=== PATIENT | female | born 1990 | race Caucasian/White ===

== ENCOUNTER 2019-04-23 19:59 | Emergency (ER) | payer OTHER ==
[~2019-04-23] VITALS: Ht 170.2 cm; Wt 86.2 kg
[~2019-04-23 19:59] MED LIST: ANAPROX DS550 MG PO; RITALIN10 MG PO
--- OUTSIDE RECORDS SUMMARY | 2019-04-23 20:02 | XMS ---
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 No recent Security Events currently on file CRITERIA MET - [facility] - Has Care Guidelines - PDMP - [facility] - 2 Visits in 30 Days CARE PROVIDERS SARA CLIFFORD Physician 07/14/2015-Tai Condon PHONE: [phone] SARA CLIFFORD Primary Care Current PHONE: Unknown LATRELL SKINNER Primary Care Tai RON PHONE: Unknown SARA CLIFFORD Primary Care 07/14/2015-Current PH[facility]: [phone] [facility] PHONE: [phone] SARA CLIFFORD Primary Care 07/14/2015-[facility] PHONE: [phone] Guidelines Source: [facility] [place] Guidelines Date: 02/15/2019 Care Coordination: Mental health services provided by [facility].\T\nbsp; Please contact [facility] with mental health concerns.\T\nbsp; Serian/Edward [place]: [phone]\T\ nbsp; [place]: [phone]. E.D. VISIT COUNT (12 MO.) [address] [place] TOTAL 4 NOTE: Visits indicate total known visits. ED/UCC VISIT TRACKING (12 MO.) 04/23/2019 20:00 [facility] [place] TYPE: Emergency COMPLAINT: - SKIN PROBLEM [facility]2019 [facility] DIAGNOSES: - Acute pharyngitis, unspecified - sore throat 02/14/2019 15:53 [facility] [place] TYPE: Emergency DIAGNOSES: - WEAKNES NAUSEA VOMITING - Nausea with vomiting, unspecified - Dizziness and giddiness 12/11/2018 17:21 [facility] [place] TYPE: Emergency DIAGNOSES: - Unspecified abdominal pain - L FLANK PAIN INPATIENT VISIT TRACKING (12 MO.) No inpatient visits to display in this time frame [id number]
[2019-04-23] MEDS ORDERED: ROBAXIN-750750 MG PO (20:13)
[2019-04-23] MEDS ORDERED: DOXYCYCLINE HY100 MG PO (20:15)
[2019-04-23] MEDS ORDERED: SERTRALINE HCL50 MG PO (20:15)
[2019-04-23] MEDS ORDERED: CEPHALEXIN500 MG PO (21:17)
== END 2019-04-23 21:33 | disposition home or self-care (01) ==
LOC: ED 19:59
DX: L03.115 Cellulitis of right lower limb (principal); F17.200 Nicotine dependence, unspecified, uncomplicated; F90.9 Attention-deficit hyperactivity disorder, unspecified type; Z88.0 Allergy status to penicillin; Z88.2 Allergy status to sulfonamides; Z91.048 Other nonmedicinal substance allergy status; Z79.899 Other long term (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
CPT/HCPCS: 99282

== ENCOUNTER 2019-05-28 22:31 | Emergency (ER) | payer OTHER ==
[~2019-05-28] VITALS: Ht 170.2 cm; Wt 86.2 kg
--- OUTSIDE RECORDS SUMMARY | ~2019-05-28 | XMS | Encounter Summary ---
Demographics + + + | Address | [address] | | | [place] [address] | + + + | Home Phone | | + + + | Preferred Language | Unknown | + + + | Marital Status | Single | + + + | Mormon Affiliation | LUT | + + + | Race | White | + + + | Ethnic Group | Not or | + + + Author + + + | Author | [facility] | + + + | Organization | [facility] | + + + | Address | Unknown | + + + | Phone | Unavailable | + + + Support + + + + + | Name | Relationship | Address | Phone | + + + + + | Grisel Marc | EF | [address] | | | | | [place] | | | | | [address] | | + + + + + Care Team Providers + +------+ + | Care Nursing Home Director Name | Role | Phone | + +------+ + | Adilia BobP | PCP | | + +------+ + Reason for Visit +--------+ + | Reason | Comments | +--------+ + | Other | Rt knee | +--------+ + Encounter Details +--------+ + + + + | Date | Type | Department | Care Team | Description | +--------+ + + + + | 10/26/ | Telephone | Orthopaedics at | Alton Hernandez MD | Other (Rt knee) | | 2012 | | [facility] [address] | | | | | | [place] | | | | | | Mailcode: PV430 | | | | | | [place] | | | | | | [place] | | | | | | [address] | | | | | | [phone] | | | +--------+ + + + [...] + | Osteomyelitis of knee region (HCC) - Primary Unspecified osteomyelitis, lower leg | + + | Pathologic fracture of tibia or fibula Pathologic fracture of tibia and fibula | + + documented in this encounter"
--- OUTSIDE RECORDS SUMMARY | ~2019-05-28 | XMS | Encounter Summary ---
Demographics + + + | Address | [address] | | | [place] [address] | + + + | Home Phone | | + + + | Preferred Language | Unknown | + + + | Marital Status | Single | + + + | Alevism Affiliation | LUT | + + + | Race | White | + + + | Ethnic Group | Not or | + + + Author + + + | Author | [facility] | + + + | Organization | [facility] | + + + | Address | Unknown | + + + | Phone | Unavailable | + + + Support + + + + + | Name | Relationship | Address | Phone | + + + + + | Grisel Marc | ECON | [address] | | | | | [place] | | | | | [address] | | + + + + + Care Team Providers + +------+ + | Care Steam Tender Name | Role | Phone | + +------+ + | Hina Peterson | PCP | | + +------+ + Encounter Details +--------+ + + + + | Date | Type | Department | Care Team | Description | +--------+ + + + + | 12/05/ | Hospital | [facility] | | | | 2015 | Encounter | Sports Medicine & | | | | | | Orthopaedic Surgery | | | | | | [address] | | | | | | [place] | | | | | | [address] | | | | | | [phone] | | | +--------+ + + + [...] at Time of Discharge + + + +---------+ + + | Medication | Sig | Dispensed | Refills | Start | End Date | | | | | | Date | | + + + +---------+ + + | albuterol 90 | Inhale 1-2 Puffs | | 0 | | | | mcg/actuation | every four hours as | | | | | | Inhalation HFA | needed. | | | | | | Aerosol Inhaler | | | | | | + + + +---------+ + + | cyclobenzaprine 10 | Take by mouth. | | 0 | 10/02/19 | | | mg oral tablet | | | | 16 | | + + + +---------+ + + | | Inject 150 mg into | | 0 | | | | medroxyPROGESTERone | the muscle (IM) | | | | | | 150 mg/mL | once. | | | | | | intramuscular | | | | | | | suspension | | | | | | + + + +---------+ + + | methylphenidate 10 | | | 0 | 02/18/20 | | | mg oral tablet | | | | 16 | | + + + +---------+ + + documented as of this encounter Plan of Treatment Not on filedocumented as of this encounter Visit Diagnoses Not on filedocumented in this encounter"
--- OUTSIDE RECORDS SUMMARY | ~2019-05-28 | XMS | Encounter Summary ---
Demographics + + + | Address | [address] | | | [place] [address] | + + + | Home Phone [...] + + + | Author | [facility] | + + + | Organization | [facility] | + + + | Address | Unknown | + + + | Phone | Unavailable | + + + Support + + + + + | Name | Relationship | Address | Phone | + + + + + | Grisel Marc | FE | [address] | | | | | [place] | | | | | [address] | | + + + + + Care Team Providers + +------+ + | Care Brick Grader Name | Role | Phone | + +------+ + | No Pcp Per Patient | PCP | Unavailable | + +------+ + Encounter Details +--------+------+ + + + | Date | Type | Department | Care Team | Description | +--------+------+ + + + | 08/06/ | Lab | Laboratory, | | Osteomyelitis of | | 2011 | | Specimen Collection | | knee region (HCC) | | | | at [facility] 3rd Floor | | | | | | [address] | | | | | | [place], | | | | | | [place] [address] | | | | | | [phone] | | | +--------+------+ + + + Social History + +-------+ [...] | + +--------+ + + + | CBC AND AUTO DIFF | Routin | 08/06/2012 | Osteomyelitis of | Results for this | | | e | 3:27 PM | knee region (HCC) | procedure are in the | | | | PST | | results section. | + +--------+ + + + | CBC, WITH | Routin | 08/06/2012 | Osteomyelitis of | Results for this | | DIFFERENTIAL | e | 3:27 PM | knee region (HCC) | procedure are in the | | | | PST | | results section. | + +--------+ + + + | COMPLETE METABOLIC | Routin | 08/06/2012 | Osteomyelitis of | Results for this | | SET | e | 3:27 PM | knee region (HCC) | procedure are in the | | (NA,K,CL,CO2,BUN,CRE | | PST | | results section. | | AT,GLUC,CA,AST,ALT,B | | | | | | JENNIFER TOTAL,ALK | | | | | | PHOS,ALB,PROT TOTAL) | | | | | + +--------+ + + + | C-REACTIVE PROTEIN | Routin | 08/06/2012 | Osteomyelitis of | Results for this | | | e | 3:27 PM | knee region (HCC) | procedure are in the | | | | PST | | results section. | + +--------+ + + + | SEDIMENTATION RATE | Routin | 08/06/2012 | Osteomyelitis of | Results for this | | | e | 3:27 PM | knee region (HCC) | procedure are in the | | | | PST | | results section. | + +--------+ + + + documented in this encounter Results CBC AND AUTO DIFF (08/06/2012 3:27 PM PST) + + + + + + | Component | Value | Ref Range | Performed | Pathologist | | | | | At | Signature | + + + + + + | WHITE CELL | 9.4 | 4.4 - 11.0 K/cu | [facility] | | | COUNT | | mm | LABORATORY | | | | | | SERVICES, | | | | | | CORE | | + + + + + + | RED CELL | 4.53 | 4.00 - 5.20 | [facility] | | | COUNT | | M/cu mm | LABORATORY | | | | | | SERVICES, | | | | | | CORE | | + + + + + + | HEMOGLOBIN | 13.2 | 12.0 - 16.0 | [facility] | | | | | g/dL | LABORATORY | | | | | | SERVICES, | | | | | | CORE | | + + + + + + | HEMATOCRIT | 40.1 | 36.0 - 46.0 % | [facility] | | | | | | LABORATORY | | | | | | SERVICES, | | | | | | CORE | | + + + + + + | MCV | 88.6 | 80.0 - 96.0 fL | [facility] | | | | | | LABORATORY | | | | | | SERVICES, | | | | | | CORE | | + + + + + + | MCHC | 32.9 (L) | 33.4 - 35.5 | [facility] | | | | | g/dL | LABORATORY | | | | | | SERVICES, | | | | | | CORE | | + + + + + + | RDW | 14.0 | 11.5 - 15.0 % | [facility] | | | | | | LABORATORY | | | | | | SERVICES, | | | | | | CORE | | + + + + + + | PLATELET | 264 | 150 - 400 K/cu | [facility] | | | COUNT | | mm | LABORATORY | | | | | | SERVICES, | | | | | | CORE | | + + + + + + | NEUTROPHIL | 46 (L) | 50 - 70 % | [facility] | | | % | | | LABORATORY | | | | | | SERVICES, | | | | | | CORE | | + + + + + + | LYMPHOCYTE | 40 | 18 - 42 % | [facility] | | | % | | | LABORATORY | | | | | | SERVICES, | | | | | | CORE | | + + + + + + | MONOCYTE % | 7 | 2 - 8 % | [facility] | | | | | | LABORATORY | | | | | | SERVICES, | | | | | | CORE | | + + + + + + | EOS % | 7 (H) | 1 - 3 % | [facility] | | | | | | LABORATORY | | | | | | SERVICES, | | | | | | CORE | | + + + + + + | BASO % | 1 | 0 - 2 % | [facility] | | | | | | LABORATORY | | | | | | SERVICES, | | | | | | CORE | | + + + + + + | NEUTROPHIL | 4.3 | 1.8 - 7.7 K/cu | [facility] | | | # | | mm | LABORATORY | | | | | | SERVICES, | | | | | | CORE | | + + + + + + | LYMPHOCYTE | 3.7 | 1.0 - 4.8 K/cu | [facility] | | | # | | mm | LABORATORY | | | | | | SERVICES, | | | | | | CORE | | + + + + + + | MONOCYTE # | 0.6 | 0.0 - 0.8 K/cu | [facility] | | | | | mm | LABORATORY | | | | | | SERVICES, | | | | | | CORE | | + + + + + + | EOS # | 0.6 (H) | 0.0 - 0.5 K/cu | [facility] | | | | | mm | LABORATORY | | | | | | SERVICES, | | | | | | CORE | | + + + + + + | BASO # | 0.1 | 0.0 - 0.2 K/cu | [facility] | | | | | mm | LABORATORY | | | | | | SERVICES, | | | | | | CORE | | + + + + + + + + | Specimen | + + | Blood - Blood | + + + + + + + | Performing | Address | City/State/Zipcode | Phone Number | | Organization | | | | + + + + + | [facility] | [address] | [place] [address] | | | SERVICES, CORE | [address] | | | + + + + + C-REACT PRTN (FOR INFLAMMATION) (08/06/2012 [...] - | | | | | | [place] | | + +-------+ + + + + + | Specimen | + + | Blood - Blood | + + + + + + + | Performing | Address | City/State/Zipcode | Phone Number | | Organization | | | | + + + + + | [facility] | [address] | [place] [address] | | | [facility] | | | | + + + [...] | + + + + + | [facility] | [address] | [place] [address] | | | SERVICES, [place] | [address] | | | + + + + [...] | | | LABORATORY | | | [place] | | | SERVICES, | | | [...] | + + + + + | [facility] | [address] | [place] [address] | | | SERVICES, CORE | [address] | | | + + + + + documented in this encounter Visit Diagnoses + + | Diagnosis | + + | Osteomyelitis of knee region (HCC) Unspecified osteomyelitis, lower leg | + + documented in this encounter"
--- OUTSIDE RECORDS SUMMARY | ~2019-05-28 | XMS | Encounter Summary ---
Demographics + + + | Address | [address] | | | [place] [address] | + + + | Home Phone [...] Author + + + | Author | [facility] | + + + | Organization | [facility] | + + + | Address | Unknown | + + + | Phone | Unavailable | + + + Support + + + + + | Name | Relationship | Address | Phone | + + + + + | Grisel Marc | FE | [address] | | | | | [place] | | | | | [address] | | + + + + + Care Team Providers + +------+ + | Care Reading Intervention Teacher Name | Role | Phone | + +------+ + | Adilia Bob [employer] CONTACT PRINTER | PCP | | + +------+ + Reason for Visit AUTH/CERT +--------+--------+ + + + + | Status | Reason | Specialty | Diagnoses / | Referred By | Referred To | | | | | Procedures | Contact | Contact | +--------+--------+ + + + + | Closed | | | | | | +--------+--------+ + + + + Encounter Details +--------+---------+ + + + | Date | Type | Department | Care Team | Description | +--------+---------+ + + + | 09/02/ | Surgery | 6A Intra Op [facility] | Alton Hernandez MD | IRRIGATION AND | | 2012 | | [facility] | | DEBRIDEMENT OF LEFT | | | | Admitting Desk | | PROXIMAL TIBIAL WITH | | | | Located on the 9th | | PLACEMENT OF CASO[address] | | | | floor [address] | | [address]TIBIOTICS [address]; | | | | [address] | | microbiology x 11 | | | | [place], [place] | | | | | | [address] | | | +--------+---------+ + + + [...] + + + | Blood Pressure | 125/75 | 09/05/2012 12:28 PM | | | | | PST | | + + + + + | Pulse | 88 | 09/05/2012 12:28 PM | | | | | PST | | + + + + + | Temperature | 36.5 C (97.7 F) | 09/05/2012 12:28 PM | | | | | PST | | + + + + + | Respiratory Rate | 18 | 09/05/2012 7:57 AM | | | | | PST | | + + + + + | Oxygen Saturation | 97% | 09/05/2012 12:28 PM | | | | | PST | | + + + + + | Inhaled Oxygen | - | - | | | Concentration | | | | + + + + + | Weight | 70.6 kg (155 lb 10.3 | 09/02/2012 10:35 AM | | | | oz) | PST | | + + + + + | Height | 170.2 cm (5' 7.01") | 09/02/2012 10:35 AM | | | | | PST | | + + + + + | Body Mass Index | 24.37 | 09/02/2012 10:35 AM | | | | | PST | | + + + + + documented in this encounter Discharge Summaries Alton Hernandez MD - 09/10/2012 8:12 AM PSTORTHOPAEDIC ATTENDING ADDENDUM: I saw and evaluated the patient daily on rounds. I agree with the findings and the plan of care as documented in the resident s note. Alton Hernandez M.D., M.Engr. General Orthopaedics, Trauma David Angel MD - 09/10/2012 8:12 AM PST [facility] DEPARTMENT OF ORTHOPAEDICS & REHABILITATION INPATIENT HOSPITAL DISCHARGE SUMMARY & INTERDISCIPLINARY INSTRUCTIONS Patient: Sandy Marc CSN: [id number] Admission Date: 09/02/2012 Discharge Date: 09/05/2012 Attending Physician: Alton Hernandez MD PCP: SAEED Presley Service: [facility] Orthopaedics & Rehabilitation Diagnoses Principal Final Diagnosis: 1. Left tibial osteomyelitis, status post fixation of tibial plateau fracture. 2. Chronic draining sinus tract, left leg. 3. 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 Procedures 09/02/12: 1. Irrigation and debridement of skin, subcutaneous soft tissue, muscle and bone, l eft tibia. 2. Irrigation and reaming of left tibia intramedullary canal. 3. Left knee aspiration for culture, arthroscopy with partial medial meniscectomy a nd medial tibial plateau chondroplasty. 4. Placement of antibiotic CaSO4 beads in left tibia. Brief Hospital Course Ms. Marc was admitted after undergoing the aforementioned operation. She remained stable on the hospital floor during her hospital stay and had an uncomplicated course. She had a PI CC line placed post-operatively and was started on IV Vancomycin and Ceftriaxone per Infecti ous Disease recommendations and discharged on this; cultures were growing GPCs. Diet Regular Regular diet- There are no restrictions to your diet. You may eat or drink whatever you pr efer, though healthy food choices are recommended. Activity Touch-down weight-bearing or Toe-touch weight-bearing: The affected foot or toes may touch the floor (such as to maintain balance), but not support any weight. You may move your knee as much as tolerated. Destination: Destination: Home Condition on Discharge Stable Discharge Medication List as of 09/05/2012 2:43 PM START taking these medications Details aspirin 325 mg Oral tablet Take 1 Tab by mouth two times daily., Disp-80 Tab, R-0, Print Pr escription cefTRIAXone 2 gram/50 mL Intravenous Piggyback Inject 50 mL into the vein (IV) every twenty -four hours., Disp-50 mL, R-20, Print Prescription gabapentin 300 mg Oral capsule Take 1 Cap by mouth three times daily., Disp-90 Cap, R-0, Pr int Prescription oxyCODONE, immediate release, 5 mg Oral tablet Take 1-3 Tabs by mouth every three hours as needed for severe pain., Disp-150 Tab, R-0, Print Prescription senna-docusate 8.6-50 mg Oral tablet Take 1 Tab by mouth two times daily., Disp-60 Tab, R-2 , Print Prescription vancomycin 1 gram/200 mL Intravenous Piggyback Inject 1 g into the vein (IV) every twelve h ours., Disp-200 mL, R-20, Print Prescription CONTINUE these medications which have NOT CHANGED Details albuterol 90 mcg/actuation Inhalation HFA Aerosol Inhaler Inhale 1-2 Puffs every four hours as needed. , Historical Med HYDROcodone-acetaminophen 5-500 mg Oral tablet Take 1 Tab by mouth every four hours as need ed. Not to exceed 6 tablets per any 24 hour period. (Not to exceed 3250 mg of acetaminophen from all products per 24 hour period.) , Historical Med levonorgestrel (MIRENA) 20 mcg/24 hr Intrauterine IUD 1 Each by Intrauterine route once. Ma y be removed and replaced with a new unit at anytime during menstrual cycle; do not leave an y one system in place for > 5 years. , Historical Med [facility] Orthopaedic Service Pain Policy At the 6-week post-operative ricardo, pain management will be reassessed and pain management r ecommendations may be modified by the discretion of the Provider. At the 3-month post-operative ricardo, the patient will be referred to pain management for buddy oing pain of poly-trauma, referred to PCP, or transitioned to Tylenol. All refills must be requested through a pharmacy. The pharmacy may then either call the o ffice with a request or fax the request to clinic. Patients must give the Outpatient Clinic a minimum of 72 hours to refill or deny narcotic p rescription from the time that they receive request from pharmacy. Requests received after 3pm will not be processed until the following business day. Prescriptions will not be available through our office after-hours, weekends, and holidays. NO EXCEPTIONS. Vital Signs on Discharge: Ht 170.2 cm (5' 7.01")( < 3 %ile), Wt 70.6 kg (155 lbs 10.3 oz)( < 3 %ile), BP 125/75, Pulse 88, Temperature 36.5 C (97.7 F), RR 18, SpO2 97%, BMI 24.37 kg/(m^2). Condition on Discharge: Improved Discharging Patient To: Home Date and Time of Discharge Summary Completion: 09/10/2012, 8:12 AM Discharging Provider: David Peter MD Discharging Attending: Alton Hernandez MD Thank you for the opportunity to take care of Sandy Marc during this inpatient sta y, it has been our pleasure. David Peter MD Pager # [phone] documented in this enc ounter Discharge Instructions Instructions Sally Gupta RN - 09/04/2012Formatting of this note might be different f rom the original. ADDITIONAL INFORMATION: [facility] will provide IV antibiotics and education. They can be r eached at: [phone]. You will need to go to [facility] ([phone] - Unit C) for PICC line dressin g changes weekly, and blood work as directed by /HALEY (Out Patient Antibiotic Therapy Cli danielle). Septic Arthritis: After Your Visit Your Care Instructions Septic arthritis is a bacterial infection in a joint. This occurs when an infection from an other part of the body, such as pneumonia or a skin or kidney infection, travels through the bloodstream to the joint. It may also spread to the joint from an infection in nearby soft tissue, or it can follow a surgery or injury. The joint is often warm, swollen, and tender. Early treatment with antibiotics can prevent permanent damage to the joint. Your doctor per l drain the joint with a needle. He or she will numb the joint first with medicine so you do not feel pain. If this treatment does not help, you may need surgery to clean the joint. Follow-up care is a segundo part of your treatment and safety. Be sure to make and go to all ap pointments, and call your doctor if you are having problems. It s also a good idea to know your test results and keep a list of the medicines you take. How can you care for yourself at home? You will receive antibiotics through a vein (IV) at first. After this, you may take anti biotics by mouth. Take your antibiotics as directed. Do not stop taking them just because you feel better. You need to take the full course of antibiotics. Rest the joint as much as you can. If possible, prop up the injured joint on pillows as much as possible for the next 3 day s. Try to keep it at or above the level of your heart. This can help reduce pain and swellin g. Follow your doctor's instructions on exercises for the affected joint. Do not smoke. Smoking can make it harder for your body to fight the infection. If you ne ed help quitting, talk to your doctor about stop-smoking programs and medicines. These can i ncrease your chances of quitting for good. When should you call for help? Call your doctor now or seek immediate medical care if: Signs of infection return or get worse. These include: Increased pain, swelling, warmth, or redness. Red streaks leading from the joint. Pus draining from the site. A fever. Shaking chills. You have trouble walking or using the joint. Watch closely for changes in your health, and be sure to contact your doctor if: After you finish treatment, you cannot move a joint as well as you could before the infe ction. The affected limb seems shorter than it was before the infection. You do not get better as expected. Where can you learn more? To learn more about "Septic Arthritis: After Your Visit", log into your [employer] account at [email or web address]. You can enter C265 in the [employer] Library" search box. Not on [employer]? Review the MyChart section of your After Visit Summary for directions on aysha norris to sign up. [phone] [employer]. Care instructions adapted under license by [facility] [employer]. This care instruction is for use with your licensed healthcar e professional. If you have questions about a medical condition or this instruction, always ask your healthcare professional. [employer] disclaims any warranty or liabili ty for your use of this information. Content Version: 9.5.47297; Last Revised: July 18, 2011 Patient Education Materials: Septic arthritis: after your visit Discharge Nurse: SALLY GUPTA RN Date: 09/05/2012 Discharge Time: 2:42 PM documented in this encounter Medications at Time [...] +---------+--------+ + documented as of this encounter Progress Notes Magno Augustin MD - 09/05/2012 6:52 AM PSTFormatting of this note might be different fr om the original. ORTHO PROGRESS NOTE 09/05/2012 Hospital Day # 3 Diagnosis: L tibial osteomyelitis POD # 3 s/p arthrocopic I&D left knee, I&D left tibia S: The patient slept well., Pain was relieved with prescribed pain medicines. Tolerating d iet. O: Last Vitals: BP 95/41 | Pulse 100 | Temp 37.1 C (98.8 F) | RR 16 | Ht 1.702 m (5' 7. 01") | Wt 70.6 kg (155 lb 10.3 oz) | SpO2 95% | BMI 24.37 kg/(m^2) 24 Hour Vital Min/Max: Pulse Av.3 Min: 82 Max: 100 Temp Av.7 C (98 F) Min: 36.5 C (97.7 F) Max: 37.1 C (98.8 F) Resp Av Min: 16 Max: 16 SpO2 Av.4 % Min: 90 % Max: 100 % Intake/Output Summary (Last 24 hours) at 09/05/12 0652 Last data filed at 09/05/12 0545 Gross per 24 hour Intake 1680 ml Output 700 ml Net 980 ml Labs: CBC with diff last 72 hours (or 3 results) Recent Labs Basename 09/05/12 0459 09/04/12 0304 09/03/12 0208 WBC 6.5 6.9 16.0* HB 7.3* 7.8* 10.0* HCT 21.9* 23.4* 29.9* PLT 179 180 224 Chemistries: Last 72 Hours (or 3 results): Recent Labs Basename 09/03/12 0207 NA 139 K 4.4 CL 103 BICARB 28 BUN 13 CR 0.66 CA 8.1* MG -- PO4 -- Meds: Current Inpatient Medications acetaminophen (aka TYLENOL) tablet 650 mg, 650 mg, Oral, Q6H albuterol (aka PROVENTIL, VENTOLIN) 90 mcg/actuation inhaler 1-2 Puff, 1-2 Puff, Inhalation , Q4H PRN aspirin tablet 325 mg, 325 mg, Oral, BID cefTRIAXone (aka ROCEPHIN) IV 2 g, 2 g, Intravenous, Q24H diphenhydrAMINE (aka BENADRYL) injection 25 mg, 25 mg, Intravenous, Q6H PRN gabapentin (aka NEURONTIN) capsule 300 mg, 300 mg, Oral, TID HYDROmorphone (aka DILAUDID) injection 0.2-1 mg, 0.2-1 mg, Intravenous, Q2H PRN lactated ringers IV, 100 mL/hr, Intravenous, CONTINUOUS ondansetron (aka ZOFRAN) injection 4 mg, 4 mg, Intravenous, Q12H PRN oxyCODONE (immediate release) (aka ROXICODONE) tablet 5-15 mg, 5-15 mg, Oral, Q3H PRN polyethylene glycol (aka MIRALAX) powder 17 g, 17 g, Oral, DAILY PRN polyethylene glycol (aka MIRALAX) powder 17 g, 17 g, Feeding Tube, DAILY PRN promethazine (aka PHENERGAN) injection 6.25 mg, 6.25 mg, Intravenous, Q8H PRN senna-docusate (aka SENOKOT S) 8.6-50 mg 1 Tab, 1 Tab, Oral, BID vancomycin (aka VANCOCIN) IV 1 g, 1 g, Intravenous, Q8H Drains: None Physical Exam: Gen: NAD, AAOx3 Dressings: clean, dry and intact Exam: left Lower Extremity: Sensation is intact to light touch at the sural, saphenous, deep peroneal, superficial per wolf, and tibial nerve distributions with no exceptions. There is full strength to ankle d orsiflexion, ankle plantar flexion, and extension of the great toe with no exceptions. Dors saira pedis pulse is 2+ and posterior tibial pulse is 2+. A/P: Sandy Marc is a 21 y.o. female who is POD 3 s/p left knee arthroscopy with pa rtial medial meniscectomy and medial plateau chondroplasty, as well as I&D of left tibia wit h placement of antibiotic beads 1. Immobility due to injury/illness: PT/OT ordered. 1. Weight bearing: touch down weight-bearing left lower extremity 2. ROM: As tolerated at left knee and ankle 2. DVT prophylaxis: ASA 325 mg bid x 6 weeks 3. Acute pain due to illness: Oral regimen, wean IV as possible if not already done so 4. ID: PICC placed. Vanco 1g q12h and Ceftriaxone 2g q24h. Per ID recs 5. Labs: Acute blood loss anemia with Hct 22, stabilizing. No indication for transfusion in a healthy asymptomatic 21 y/o F. 6. Wound care: daily dressing changes starting today 7. Radiology: None new 8. Disposition: Continue acute inpatient care until discharge likely today. 9. Targeted discharge date: today 10. Special Discharge Needs: needs outpatient IV antibiotics x 6 weeks, arrangements being made with [facility] 11. ilkimmie JURADO, Brigid Johnson - 09/04/2012 8:46 AM PSTOPAT PLAN OF CARE: Discharge antibiotics: Ceftriaxone 2 g IV q 24 hours + Vancomycin 1 g IV q 12 hours with antibiotics to be tailored when culture results are finalized. Anticipated duration of therapy: 6 weeks or longer pending clinical progress. OPAT labs: Weekly CBC with diff/CMP/ESR/CRP/Vanco trough. Please obtain applicable baseline labs prior to discharge. Vascular access care: Weekly line dressing changes, flushing, and line care per OPAT orders . These order will be faxed to the OPAT service provider under separate cover. Anticipated OPAT Setting: [facility] [phone] f: [phone] ID/OPAT Clinic follow-up: OPAT clinic visit in 1-2 weeks after discharge in conjunction wit h [facility] Orthopedic Service. We will call to schedule this appointment after patient is disch arged. Interdisciplinary Communication: Please notify OPAT clinic 24-48 hours prior to discharge b y calling [phone] (We need anticipated discharge date & where patient is going; i.e. name, ph one, and fax for home infusion vendor, shelter facility, or daily outpatient infusio n center providing outpatient antibiotic therapy services.) [facility] Department of Infectious Disease Outpatient IV Antibiotic Therapy Clinic (OPAT) Pager ID: [phone] [facility] Joy Zamora. Mail Code L457 [place] [address] OPAT teaching note: Education and training for patient self management with a PICC line and extended use IV antibiotics I received an OPAT Clinic Consult from the Inpatient Infectious Diseases Service. I have re viewed the records and introduced myself to Sandy Marc today. I explained that I am from the OPAT (Outpatient Parenteral Antibiotic Treatment) team, an out-patient branch of t Infectious Diseases team that has been guiding in-patient antibiotic care. I explained that the role of OPAT is to monitor the antibiotics that are being used to klarissa t the infection. We ensure that the patient is on the right antibiotic(s), that the infectio n is responding to treatment, and I explained that we will be monitoring the patient closely for antibiotic side effects. I explained that duration of antibiotic depends on the type of infection. I reviewed with t he patient that 6 weeks of IV Ceftriaxone and Vancomycin has been recommended for treatment of tibial osteomyelitis. We discussed bone infection. I explained how [...] patient according to their clin ical progress. Some patients may need additional antibiotics by mouth after IV antibiotic tr eatment is completed, often for 6 months or longer. Some patients may even need antibiotics by mouth (pills) for life. I explained that at the start of the antibiotic course we typically see patients every 1-2 weeks in clinic, to ensure that the antibiotics are being well-tolerated. I explained that s ome follow-up visits may be a combined visit with the surgeon and that if the patient lives far away, or travel is difficult, we will try to do some of the visits by phone and through their PCP. I gave the patient my OPAT business card, and let them know that our clinic coord inators will be contacting them after discharge to make their first OPAT clinic follow-up ap pointment. I explained that labs will be drawn weekly to monitor blood count, kidney function, liver f unction, and to look for signs of antibiotic side effects. We will also be watching inflamma tory markers such as WCC, ESR and CRP to monitor the response of their infection to treatmen t. I explained that the response of an infection to treatment is assessed by clinical marker s (pain, swelling, rednesss, wound healing), by blood tests, and sometimes by follow-up imag ing studies. I reviewed the side effects of Vancomycin with the patient. I reviewed the fact that the V ancomycin can cause renal toxicity. Signs of this are a change in urine color and a decrease in urine output. I also explained that we often detect renal toxicity by the weekly labs, b efore there are any symptoms, and it is therefore very important labs are done weekly. I re viewed the fact that people may develop an allergy to antibiotics at any time, even 5 weeks into therapy. This may manifest as a rash or renal failure, and it is therefore important to report any new symptoms. I reviewed the side-effects of Ceftriaxone with the patient. I reviewed the fact that Cef triaxone can occasionally upset the gall bladder, so to let us know if RUQ abdominal pain de velops at any time while taking this antibiotic. I reviewed the fact that ceftriaxone can ca use renal failure. The symptoms of renal failure are decreased urine output, nausea, or vomi ting. I reviewed the side effect of leukopenia with the patient, and that this may happen l ater in the course of the antibiotic. I reviewed the fact that people may develop an allerg y to antibiotics at any time, even 5 weeks into therapy. This may manifest as a rash or ab l failure, and it is therefore important to report any rashes. I explained that if any evidence of side effects from antibiotics occur, we will ask the in fusion service provider to alter the dose of antibiotics, or even change the antibiotics. I explained that we will communicate patient's progress and plan with PCP, surgeon, and the in fusion service provider. I reviewed the possible complications PICC lines with the patient including infection and b lood clots. I reviewed the possible sepsis complications and their symptoms. In particular, fevers, chills or sweats, redness around the PICC site, discomfort in the arm, and flu like symptoms. I discussed that arm or hand swelling can indicate development of a blood clot. I warned that any sign of line infection or blood clot needs urgent attention. I asked the pat ient to report any of these symptoms immediately, and if unable to contact [facility] or the infus ion service provider, then to present to the nearest ED. I verified that the patient has a primary care provider, and that they will follow-up with them following this hospitalization in regards to other medical issues such as chronic pain, diabetes, or high blood pressure for which we do not provide any care. I provided the patient with the [facility] welcome letter that reiterates the above teaching. I spent 45 minutes in education and training in patient self management for IV antibiotic a nd PICC line use with greater than 50% spent on counseling and/or coordination of care. [facility] DEPARTMENT: IDC INFECT DIS CONSULT - [id number] Place of Service: Inpatient Date of Service: 09/04/2012 CSN: [id number] Suggested Modifier: OPATC David Angel MD - 09/04/2012 7:58 AM PST Orthopaedics Progress Note Subjective: Interval Hx: No events overnight. Having more pain yesterday and this morning. Able to get out of bed yesterday and ambulate with crutches. Would like to stay one more night if possib le. Objective: 24 Hour Vital Min/Max: Pulse Av.8 Min: 76 Max: 84 Systolic (24hrs), Av mmHg, Min:91 mmHg, Max:109 mmHg Temp Av.4 C (97.6 F) Min: 36.3 C (97.3 F) Max: 36.7 C (98.1 F) Diastoli c (24hrs), Av mmHg, Min:41 mmHg, Max:60 mmHg Resp Av Min: 16 Max: 16 SpO2 Av.5 % Min: 96 % Max: 99 % Intake/Output Summary (Last 24 hours) at 09/04/12 0758 Last data filed at 09/04/12 0300 Gross per 24 hour Intake 70 ml Output 500 ml Net -430 ml Recent Laboratory Data: Lab Results Component Value Date WBC 6.9 09/04/2012 HCT 23.4 09/04/2012 PLT 180 09/04/2012 CULTURE RESULT (no units) Date Value Range Status 09/02/2012 Preliminary Value: C Tissue Source: Tissue Prelim GRAM STAIN: No squamous epithelial cells No PMNS No organisms seen. CULTURE RESULT: No growth to date Culture examined daily Report will be updated if growth occurs 09/02/2012 Preliminary Value: C AFB Source: Tissue SMEAR: AFB not detected source: left sinovium, left knee superior patellar pouch 09/02/2012 Preliminary Value: C Fungus, Other Source: Tissue SMEAR: No fungal elements seen 09/02/2012 Preliminary Value: C Tissue Source: Tissue Prelim GRAM STAIN: No squamous epithelial cells No PMNS No organisms seen. CULTURE RESULT: No growth to date Culture examined daily Report will be updated if growth occurs 09/02/2012 Preliminary Value: C AFB Source: Tissue SMEAR: AFB not detected source: 2) left anterior horn, medial meniscus tear 09/02/2012 Preliminary Value: C Fungus, Other Source: Tissue SMEAR: No fungal elements seen 09/02/2012 Preliminary Value: C Tissue Source: Tissue Prelim GRAM STAIN: No squamous epithelial cells Rare PMNS No organisms seen. CULTURE RESULT: Rare Gram positive cocci . 09/02/2012 Preliminary Value: C AFB Source: Sputum SMEAR: AFB not detected source: 3) left sinus tract, left proximal tibia 09/02/2012 Preliminary Value: C Fungus, Other Source: Tissue SMEAR: No fungal elements seen 09/02/2012 Preliminary Value: C Tissue Source: Tissue Prelim GRAM STAIN: No squamous epithelial cells No PMNS Rare Gram positive cocci . CULTURE RESULT: Rare Gram positive cocci . 09/02/2012 Preliminary Value: C AFB Source: Tissue SMEAR: AFB not detected source: left retained calcium left tibia #4 09/02/2012 Preliminary Value: C Fungus, Other Source: Tissue SMEAR: No fungal elements seen 09/02/2012 Preliminary Value: C Tissue Source: Tissue Prelim GRAM STAIN: No squamous epithelial cells Rare PMNS Rare Gram positive cocci . CULTURE RESULT: Rare Gram positive cocci . 09/02/2012 Preliminary Value: C AFB Source: Tissue SMEAR: AFB not detected source: left retained calcium left tibia #5 09/02/2012 Preliminary Value: C Fungus, Other Source: Tissue SMEAR: No fungal elements seen 09/02/2012 Preliminary Value: C Tissue Source: Tissue Prelim GRAM STAIN: No squamous epithelial cells Rare PMNS No organisms seen. CULTURE RESULT: No growth to date Culture examined daily Report will be updated if growth occurs 09/02/2012 Preliminary Value: C AFB Source: Tissue SMEAR: AFB not detected source: left retained calcium left tibia #6 09/02/2012 Preliminary Value: C Fungus, Other Source: Tissue SMEAR: No fungal elements seen 09/02/2012 Preliminary Value: C Tissue Source: Tissue Prelim GRAM STAIN: No squamous epithelial cells Rare PMNS No organisms seen. CULTURE RESULT: No growth to date Culture examined daily Report will be updated if growth occurs 09/02/2012 Preliminary Value: C AFB Source: Tissue SMEAR: AFB not detected source: left retained calcium left tibia #7 09/02/2012 Preliminary Value: C Fungus, Other Source: Tissue SMEAR: No fungal elements seen 09/02/2012 Preliminary Value: C Tissue Source: Tissue Prelim GRAM STAIN: No squamous epithelial cells No PMNS No organisms seen. CULTURE RESULT: No growth to date Culture examined daily Report will be updated if growth occurs 09/02/2012 Preliminary Value: C AFB Source: Tissue SMEAR: AFB not detected source: left retained calcium left tibia #8 09/02/2012 Preliminary Value: C Fungus, Other Source: Tissue SMEAR: No fungal elements seen 09/02/2012 Preliminary Value: C Tissue Source: Tissue Prelim GRAM STAIN: No squamous epithelial cells No PMNS No organisms seen. CULTURE RESULT: No growth to date Culture examined daily Report will be updated if growth occurs 09/02/2012 Preliminary Value: C Fungus, Other Source: Tissue SMEAR: No fungal elements seen 09/02/2012 Preliminary Value: C AFB Source: Tissue SMEAR: AFB not detected source: left retained calcium left tibia #9 09/02/2012 Preliminary Value: C Tissue Source: Tissue Prelim GRAM STAIN: No squamous epithelial cells No PMNS No organisms seen. CULTURE RESULT: No growth to date Culture examined daily Report will be updated if growth occurs 09/02/2012 Preliminary Value: C AFB Source: Tissue SMEAR: AFB not detected source: 10) left medullary canal, left tibia 09/02/2012 Preliminary Value: C Fungus, Other Source: Tissue SMEAR: No fungal elements seen Exam: General: awake, alert, no distress LLE: large amount of bloody drainage on dressings, taken down this morning. Tibial incision well approximated with sutures in place, no active drainage currently. Arthroscopic knee in cisions clean and dry. A/P: Sandy Marc is a 21 y.o. female who is POD2 s/p left knee arthroscopy with par tial medial meniscectomy and medial plateau chondroplasty, as well as I&D of left tibia with placement of antibiotic beads 1. Immobility due to injury/illness: PT/OT ordered. 1. Weight bearing: touch down weight-bearing left lower extremity 2. ROM: As tolerated at left knee and ankle 2. DVT prophylaxis: ASA 325 mg bid x 6 weeks 3. Acute pain due to illness: Oral regimen, wean IV as possible if not already done so 4. ID: PICC placed yesterday. Vanco 1g q12h added to Ceftriaxone 2g q24h, which will likely be antibiotics on which she is discharged 5. Labs: Acute blood loss anemia with Hct 29 -> 23 today. No indication for transfusion in a healthy asymptomatic 21 y/o F, but will continue to monitor and recheck Hct tomorrow morn ing. 6. Wound care: daily dressing changes starting today 7. Radiology: Reviewed 8. Disposition: Continue acute inpatient care 9. Targeted discharge date: tomorrow 10. Special Discharge Needs: needs outpatient IV antibiotics x 6 weeks, arrangements being made with LENCHO Peter MD Pager # [phone] David Angel MD - 09/03/2012 7:53 AM PST Orthopaedics Progress Note Subjective: Interval Hx: No events overnight. Pain well controlled this morning. No numbness/tingling i n LLE. Has not been out of bed yet. Objective: 24 Hour Vital Min/Max: Pulse Av.1 Min: 65 Max: 92 Systolic (24hrs), Av mmHg, Min:98 mmHg, Max:130 mmHg Temp Av.2 C (97.1 F) Min: 35.4 C (95.7 F) Max: 36.7 C (98.1 F) Diastoli c (24hrs), Av mmHg, Min:41 mmHg, Max:67 mmHg Resp Av.9 Min: 8 Max: 16 SpO2 Av.9 % Min: 92 % Max: 100 % Intake/Output Summary (Last 24 hours) at 09/03/12 0753 Last data filed at 09/03/12 0500 Gross per 24 hour Intake 2896.33 ml Output 700 ml Net 2196.33 ml Recent Laboratory Data: Lab Results Component Value Date WBC 16.0 09/03/2012 HCT 29.9 09/03/2012 PLT 224 09/03/2012 NA 139 09/03/2012 K 4.4 09/03/2012 CL 103 09/03/2012 BUN 13 09/03/2012 CR 0.66 09/03/2012 GLU 129 09/03/2012 Exam: General: awake, alert, no distress LLE: dressing with some mild strikethrough drainage, not saturated. Fires TA/EHL/GSC with 5 /5 strength, SILT in saph/sural/sp/dp/tib distributions, palpable DP/PT pulses. A/P: Sandy Marc is a 21 y.o. female who is POD1 s/p left knee arthroscopy with pa rtial medial meniscectomy and medial plateau chondroplasty, as well as I&D of left tibia wit h placement of antibiotic beads 1. Immobility due to injury/illness: PT/OT ordered. 1. Weight bearing: touch down weight-bearing left lower extremity 2. ROM: As tolerated at left knee and ankle 2. DVT prophylaxis: ASA 325 mg bid x 6 weeks 3. Acute pain due to illness: Oral regimen, wean IV as possible if not already done so 4. ID: Continue ceftriaxone 2g IV q24h, will consult ID and adjust abx regimen as cultures return. PICC line placement ordered. 5. Wound care: dressings intact, to be changed daily starting POD#3 or prior to D/C. 6. Radiology: Reviewed, demonstrates abx beads in proximal tibial tunnel, no fractures pre sent 7. Disposition: Continue acute inpatient care 8. Targeted discharge date: tom or Friday 9. Special Discharge Needs: needs outpatient IV antibiotics x 6 weeks David Peter MD Pager # [phone] Malathi Mccauley MD - 09/03/2012 1:27 AM PST Orthopaedic Surgery Postoperative Check Patient: Sandy Marc Date: 09/03/2012 Admitted: 09/02/2012 Hospital Day: 1 Attending Physician: Alton Hernandez MD Diagnosis(es): 1. Chronic septic arthritis of left knee 2. Left tibial osteomyelitis, chronic draining sinus tract s/p ORIF tibial plateau fracture with retained calcium phosphate bone cement Orthopaedic Procedure(s): 1. Aspiration of left knee for culture 2. Arthroscopic synovial biopsy left knee with anterior horn partial medial menisectomy and medial tibial plateau chondroplasty 3. I&D left tibia including reaming of IM canal, placement of antibiotic beads Date(s) of Surgery: 1. 09/02/12 Subjective: Sandy Marc is a 21 y.o. female who is postoperative day #0 from the above procedur e(s). Nauseated an vomiting at the time of this exam. Pain well controlled, dressing with b lood stain Objective: Last Vitals: Pulse: 83 BP: 101/48 mmHg Temp: 36.3 C (97.3 F) SpO2: 100 % Resp: 15 Focused Exam: GEN: mild discomfort nauseated LLE: fires df/ehl/gs, SILT L1-S1 Assessment & Plan: Sandy Marc is a 21 y.o.F with the diagnoses/procedures listed above, experiencing a(an) At Expected Level postoperative course. POSTOPERATIVE PLAN: See brief op note MALATHI BRYANT MD [facility] Department of Orthopaedics & Rehabilitation [address] [place] [address] Mail Code: OP31 [facility] [id number] documented in this e ncounter Plan of Treatment + +---------+--------+ + + | Name | Type | Priori | Associated Diagnoses | Date/Time | | | | ty | | | + +---------+--------+ + + | OR FLUOROSCOPY > 1 | Imaging | Routin | | 09/02/2012 5:29 PM | | HOUR | | e | | PST | + +---------+--------+ + + + +---------+--------+ + + | Name | Type | Priori | Associated Diagnoses | Order Schedule | | | | ty | | | + +---------+--------+ + + | OR FLUOROSCOPY > 1 | Imaging | Routin | | One Time for 1 | | HOUR | | e | | Occurrences starting | | | | | | 09/02/2012 until | | | | | | 09/02/2012 | + +---------+--------+ + + documented as of this encounter Procedures + +--------+ + + + | Procedure Name | Priori | Date/Time | Associated Diagnosis | Comments | | | ty | | | | + +--------+ + + + | PROCEDURE NOTE | Routin | 09/14/2015 | | Results for this | | | e | 11:53 PM | | procedure are in the | | | | PST | | results section. | + +--------+ + + + | PROCEDURE NOTE | Routin | 09/14/2015 | | Results for this | | | e | 11:44 PM | | procedure are in the | | | | PST | | results section. | + +--------+ + + + | CBC ONLY | Routin | 09/05/2012 | | Results for this | | | e | 4:59 AM | | procedure are in the | | | | PST | | results section. | + +--------+ + + + | CBC ONLY | Routin | 09/05/2012 | | Results for this | | | e | 4:59 AM | | procedure are in the | | | | PST | | results section. | + +--------+ + + + | VANCOMYCIN TROUGH | Routin | 09/04/2012 | | Results for this | | | e | 9:35 PM | | procedure are in the | | | | PST | | results section. | + +--------+ + + + | CBC AND AUTO DIFF | Routin | 09/04/2012 | | Results for this | | | e | 3:04 AM | | procedure are in the | | | | PST | | results section. | + +--------+ + + + | CBC, WITH | Routin | 09/04/2012 | | Results for this | | DIFFERENTIAL | e | 3:04 AM | | procedure are in the | | | | PST | | results section. | + +--------+ + + + | OPERATION RECORD | | 09/03/2012 | | Results for this | | | | 2:02 PM | | procedure are in the | | | | PST | | results section. | + +--------+ + + + | X-RAY PORTABLE CHEST | Urgent | 09/03/2012 | | Results for this | | 1 VIEW | | 9:51 AM | | procedure are in the | | | | PST | | results section. | + +--------+ + + + | IP CONSULT TO [facility] | Routin | 09/03/2012 | | Results for this | | TEAM | e | 9:16 AM | | procedure are in the | | | | PST | | results section. | + +--------+ + + + | CBC ONLY | Urgent | 09/03/2012 | | Results for this | | | | 2:08 AM | | procedure are in the | | | | PST | | results section. | + +--------+ + + + | CBC ONLY | Urgent | 09/03/2012 | | Results for this | | | | 2:08 AM | | procedure are in the | | | | PST | | results section. | + +--------+ + + + | BASIC METABOLIC SET | Urgent | 09/03/2012 | | Results for this | | (NA, K, CL, TCO2, | | 2:07 AM | | procedure are in the | | BUN, CR, GLU, CA) | | PST | | results section. | + +--------+ + + + | X-RAY TIBIA & FIBULA | Urgent | 09/02/2012 | | Results for this | | 2 VIEWS LT | | 9:14 PM | | procedure are in the | | | | PST | | results section. | + +--------+ + + + | X-RAY KNEE 2 VIEWS | Routin | 09/02/2012 | | Results for this | | LEFT | e | 5:29 PM | | procedure are in the | | | | PST | | results section. | + +--------+ + + + | CULTURE, FUNGAL | Routin | 09/02/2012 | | Results for this | | EXCEPT BLOOD, SKIN, | e | 4:30 PM | | procedure are in the | | HAIR, NAIL | | PST | | results section. | + +--------+ + + + | CULTURE, FUNGAL | Routin | 09/02/2012 | | Results for this | | EXCEPT BLOOD, SKIN, | e | 4:30 PM | | procedure are in the | | HAIR, NAIL | | PST | | results section. | + +--------+ + + + | CULTURE, FUNGAL | Routin | 09/02/2012 | | Results for this | | EXCEPT BLOOD, SKIN, | e | 4:30 PM | | procedure are in the | | HAIR, NAIL | | PST | | results section. | + +--------+ + + + | CULTURE, FUNGAL | Routin | 09/02/2012 | | Results for this | | EXCEPT BLOOD, SKIN, | e | 4:30 PM | | procedure are in the | | HAIR, NAIL | | PST | | results section. | + +--------+ + + + | CULTURE, FUNGAL | Routin | 09/02/2012 | | Results for this | | EXCEPT BLOOD, SKIN, | e | 4:30 PM | | procedure are in the | | HAIR, NAIL | | PST | | results section. | + +--------+ + + + | CULTURE, FUNGAL | Routin | 09/02/2012 | | Results for this | | EXCEPT BLOOD, SKIN, | e | 4:30 PM | | procedure are in the | | HAIR, NAIL | | PST | | results section. | + +--------+ + + + | CULTURE, FUNGAL | Routin | 09/02/2012 | | Results for this | | EXCEPT BLOOD, SKIN, | e | 4:30 PM | | procedure are in the | | HAIR, NAIL | | PST | | results section. | + +--------+ + + + | CULTURE, FUNGAL | Routin | 09/02/2012 | | Results for this | | EXCEPT BLOOD, SKIN, | e | 4:30 PM | | procedure are in the | | HAIR, NAIL | | PST | | results section. | + +--------+ + + + | CULTURE, FUNGAL | Routin | 09/02/2012 | | Results for this | | EXCEPT BLOOD, SKIN, | e | 4:30 PM | | procedure are in the | | HAIR, NAIL | | PST | | results section. | + +--------+ + + + | CULTURE, FUNGAL | Routin | 09/02/2012 | | Results for this | | EXCEPT BLOOD, SKIN, | e | 4:30 PM | | procedure are in the | | HAIR, NAIL | | PST | | results section. | + +--------+ + + + | CULTURE, TISSUE | Routin | 09/02/2012 | | Results for this | | | e | 4:30 PM | | procedure are in the | | | | PST | | results section. | + +--------+ + + + | CULTURE, TISSUE | Routin | 09/02/2012 | | Results for this | | | e | 4:30 PM | | procedure are in the | | | | PST | | results section. | + +--------+ + + + | CULTURE, TISSUE | Routin | 09/02/2012 | | Results for this | | | e | 4:30 PM | | procedure are in the | | | | PST | | results section. | + +--------+ + + + | CULTURE, TISSUE | Routin | 09/02/2012 | | Results for this | | | e | 4:30 PM | | procedure are in the | | | | PST | | results section. | + +--------+ + + + | CULTURE, TISSUE | Routin | 09/02/2012 | | Results for this | | | e | 4:30 PM | | procedure are in the | | | | PST | | results section. | + +--------+ + + + | CULTURE, TISSUE | Routin | 09/02/2012 | | Results for this | | | e | 4:30 PM | | procedure are in the | | | | PST | | results section. | + +--------+ + + + | CULTURE, TISSUE | Routin | 09/02/2012 | | Results for this | | | e | 4:30 PM | | procedure are in the | | | | PST | | results section. | + +--------+ + + + | CULTURE, TISSUE | Routin | 09/02/2012 | | Results for this | | | e | 4:30 PM | | procedure are in the | | | | PST | | results section. | + +--------+ + + + | CULTURE, TISSUE | Routin | 09/02/2012 | | Results for this | | | e | 4:30 PM | | procedure are in the | | | | PST | | results section. | + +--------+ + + + | CULTURE, TISSUE | Routin | 09/02/2012 | | Results for this | | | e | 4:30 PM | | procedure are in the | | | | PST | | results section. | + +--------+ + + + | CULTURE, AFB (ALL | Routin | 09/02/2012 | | Results for this | | SPEC TYPES EXCEPT | e | 4:30 PM | | procedure are in the | | BLOOD) | | PST | | results section. | + +--------+ + + + | CULTURE, AFB (ALL | Routin | 09/02/2012 | | Results for this | | SPEC TYPES EXCEPT | e | 4:30 PM | | procedure are in the | | BLOOD) | | PST | | results section. | + +--------+ + + + | CULTURE, AFB (ALL | Routin | 09/02/2012 | | Results for this | | SPEC TYPES EXCEPT | e | 4:30 PM | | procedure are in the | | BLOOD) | | PST | | results section. | + +--------+ + + + | CULTURE, AFB (ALL | Routin | 09/02/2012 | | Results for this | | SPEC TYPES EXCEPT | e | 4:30 PM | | procedure are in the | | BLOOD) | | PST | | results section. | + +--------+ + + + | CULTURE, AFB (ALL | Routin | 09/02/2012 | | Results for this | | SPEC TYPES EXCEPT | e | 4:30 PM | | procedure are in the | | BLOOD) | | PST | | results section. | + +--------+ + + + | CULTURE, AFB (ALL | Routin | 09/02/2012 | | Results for this | | SPEC TYPES EXCEPT | e | 4:30 PM | | procedure are in the | | BLOOD) | | PST | | results section. | + +--------+ + + + | CULTURE, AFB (ALL | Routin | 09/02/2012 | | Results for this | | SPEC TYPES EXCEPT | e | 4:30 PM | | procedure are in the | | BLOOD) | | PST | | results section. | + +--------+ + + + | CULTURE, AFB (ALL | Routin | 09/02/2012 | | Results for this | | SPEC TYPES EXCEPT | e | 4:30 PM | | procedure are in the | | BLOOD) | | PST | | results section. | + +--------+ + + + | CULTURE, AFB (ALL | Routin | 09/02/2012 | | Results for this | | SPEC TYPES EXCEPT | e | 4:30 PM | | procedure are in the | | BLOOD) | | PST | | results section. | + +--------+ + + + | CULTURE, AFB (ALL | Routin | 09/02/2012 | | Results for this | | SPEC TYPES EXCEPT | e | 4:30 PM | | procedure are in the | | BLOOD) | | PST | | results section. | + +--------+ + + + | CULTURE, BODY FLUID | Routin | 09/02/2012 | | Results for this | | | e | 3:15 PM | | procedure are in the | | | | PST | | results section. | + +--------+ + + + | ARTHROSCOPIC KNEE | Electi | 09/02/2012 | Unspecified | | | PROCEDURES | ve | 2:12 PM | osteomyelitis, lower | | | | Surgic | PST | leg Aseptic | | | | al | | necrosis of bone, | | | | | | site unspecified | | | | | | Pathologic fracture | | | | | | of tibia and fibula | | | | | | Pyogenic arthritis, | | | | | | lower leg (HCC) | | + +--------+ + + + | KNEE SOFT TISSUE | Electi | 09/02/2012 | Unspecified | | | PROCEDURES | ve | 2:12 PM | osteomyelitis, lower | | | | Surgic | PST | leg Aseptic | | | | al | | necrosis of bone, | | | | | | site unspecified | | | | | | Pathologic fracture | | | | | | of tibia and fibula | | | | | | Pyogenic arthritis, | | | | | | lower leg (HCC) | | + +--------+ + + + | LAB REPORTS | | 09/02/2012 | | Results for this | | | | 12:00 AM | | procedure are in the | | | | PST | | results section. | + +--------+ + + + | SURGICAL PATHOLOGY | Routin | 09/02/2012 | | Results for this | | | e | | | procedure are in the | | | | | | results section. | + +--------+ + + + documented in this encounter Results PROCEDURE NOTE (09/14/2015 11:53 PM PST)PROCEDURE NOTE (09/14/2015 11:44 PM PST) + + | Transcriptions | + + | Other, Faculty - 09/09/2012 2:12 PM PST | + + CBC (09/05/2012 4:59 AM PST) + + + + + + | Component | Value | Ref Range | Performed | Pathologist | | | | | At | Signature | + + + + + + | WHITE CELL | 6.5 | 4.4 - 11.0 K/cu | [facility] | | | COUNT | | mm | LABORATORY | | | | | | SERVICES, | | | | | | CORE | | + + + + + + | RED CELL | 2.46 (L) | 4.00 - 5.20 | [facility] | | | COUNT | | M/cu mm | LABORATORY | | | | | | SERVICES, | | | | | | CORE | | + + + + + + | HEMOGLOBIN | 7.3 (L) | 12.0 - 16.0 | [facility] | | | | | g/dL | LABORATORY | | | | | | SERVICES, | | | | | | CORE | | + + + + + + | HEMATOCRIT | 21.9 (L) | 36.0 - 46.0 % | [facility] | | | | | | LABORATORY | | | | | | SERVICES, | | | | | | CORE | | + + + + + + | MCV | 89.3 | 80.0 - 96.0 fL | [facility] | | | | | | LABORATORY | | | | | | SERVICES, | | | | | | CORE | | + + + + + + | MCHC | 33.5 | 33.4 - 35.5 | [facility] | | | | | g/dL | LABORATORY | | | | | | SERVICES, | | | | | | CORE | | + + + + + + | RDW | 13.9 | 11.5 - 15.0 % | [facility] | | | | | | LABORATORY | | | | | | SERVICES, | | | | | | CORE | | + + + + + + | PLATELET | 179 | 150 - 400 K/cu | [facility] [...] | + + + + + | [facility] | [address] | [place] [address] | | | SERVICES, CORE | [address] | | | + + + + + VANCOMYCIN, TROUGH (09/04/2012 9:35 PM PST) + +-------+ + + + | Component | Value | Ref Range | Performed | Pathologist | | | | | At | Signature | + +-------+ + + + | VANCOMYCIN, | 8.9 | 5.0 - 15.0 | [facility] | | | TROUGH | | ug/mL | LABORATORY | | | | | [...] [facility] | [address] | [place] [address] | | | SERVICES, CORE | [address] | | | + + + + + CBC AND AUTO DIFF (09/04/2012 3:04 AM PST) + + + + + + | Component | Value | Ref Range | Performed | Pathologist | | | | | At | Signature | + + + + + + | WHITE CELL | 6.9 | 4.4 - 11.0 K/cu | [facility] | | | COUNT | | mm | LABORATORY | | | | | | SERVICES, | | | | | | CORE | | + + + + + + | RED CELL | 2.62 (L) | 4.00 - 5.20 | [facility] | | | COUNT | | M/cu mm | LABORATORY | | | | | | SERVICES, | | | | | | CORE | | + + + + + + | HEMOGLOBIN | 7.8 (L) | 12.0 - 16.0 | [facility] | | | | | g/dL | LABORATORY | | | | | | SERVICES, | | | | | | CORE | | + + + + + + | HEMATOCRIT | 23.4 (L) | 36.0 - 46.0 % | [facility] | | | | | | LABORATORY | | | | | | SERVICES, | | | | | | CORE | | + + + + + + | MCV | 89.4 | 80.0 - 96.0 fL | [facility] | | | | | | LABORATORY | | | | | | SERVICES, | | | | | | CORE | | + + + + + + | MCHC | 33.2 (L) | 33.4 - 35.5 | [facility] | | | | | g/dL | LABORATORY | | | | | | SERVICES, | | | | | | CORE | | + + + + + + | RDW | 13.9 | 11.5 - 15.0 % | [facility] | | | | | | LABORATORY | | | | | | SERVICES, | | | | | | CORE | | + + + + + + | PLATELET | 180 | 150 - 400 K/cu | [facility] | | | COUNT | | mm | LABORATORY | | | | | | SERVICES, | | | | | | CORE | | + + + + + + | NEUTROPHIL | 45 (L) | 50 - 70 % | [facility] | | | % | | | LABORATORY | | | | | | SERVICES, | | | | | | CORE | | + + + + + + | LYMPHOCYTE | 42 | 18 - 42 % | [facility] | | | % | | | LABORATORY | | | | | | SERVICES, | | | | | | CORE | | + + + + + + | MONOCYTE % | 8 | 2 - 8 % | [facility] | | | | | | LABORATORY | | | | | | SERVICES, | | | | | | CORE | | + + + + + + | EOS % | 5 (H) | 1 - 3 % | [facility] | | | | | | LABORATORY | | | | | | SERVICES, | | | | | | CORE | | + + + + + + | BASO % | 0 | 0 - 2 % | [facility] | | | | | | LABORATORY | | | | | | SERVICES, | | | | | | CORE | | + + + + + + | NEUTROPHIL | 3.1 | 1.8 - 7.7 K/cu | [facility] | | | # | | mm | LABORATORY | | | | | | SERVICES, | | | | | | CORE | | + + + + + + | LYMPHOCYTE | 2.9 | 1.0 - 4.8 K/cu | [facility] [...] + + + | EOS # | 0.3 | 0.0 - 0.5 K/cu | [facility] | | | | | mm | LABORATORY | | | | | | SERVICES, | | | | | | CORE | | + + + + + + | BASO # | 0.0 | 0.0 - 0.2 K/cu | [facility] [...] | + + + + + | [facility] | [address] | [place] [address] | | | SERVICES, [facility] [place] | [address] | | | + + + + + OPERATION RECORD (09/03/2012 2:02 PM PST) + + | Transcriptions | + + | David Peter MD - 09/03/2012 12:20 PM PST Date: 09/02/2012ttending | | Surgeon: Alton Hernandez M.D.Conference Services Director(s): David | | TAQUERIA Peterreoperative Diagnosis(es):1. Left tibial osteomyelitis, status post | | fixation of tibial plateau fracture.2. Chronic draining sinus tract, left leg.3. Concern | | for septic arthritis, left kneePostoperative Diagnosis(es):1. Left tibial | | osteomyelitis, status post fixation of tibial plateau fracture.2. Chronic draining sinus | | tract, left leg.3. 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 Irrigation and | | debridement of skin, subcutaneous soft tissue, muscle and bone, left tibia.2. Irrigation | | and reaming of left tibia intramedullary canal.3. Left knee aspiration for culture, | | arthroscopy with partial medial meniscectomy and medial tibial plateau chondroplasty.4. | | Placement of antibiotic CaSO4 beads in left tibia.Estimated Blood Loss:200 | | cc.Specimens:Left knee synovium and medial menisectomy tissue as well as tibia bone and | | retained calcium phosphate graft x 6 sent for culture and | | pathology.Complications:None.Drains:None.Implants:None.Indications:Ms. Marc is a | | 21-year-old woman, who suffered a left tibial plateau fracture in late November 2011. This | | was subsequently treated with arthroscopically-assisted ORIF of the plateau fracture by | | Dr. Jerald Don in [place] on December 10, 2011. At that time, calcium phosphate | | cement was used to help buttress the subchondral bone. She subsequently went on to | | develop a chronic draining wound over her anterior left tibia. She underwent several | | bedside debridements as well as finally a left knee synovectomy and formal I and D with | | hardware removal on April 14, 2012, by Dr. Don. The calcium phosphate cement | | was not removed at that time. She has continued to drain from her sinus tract in the | | left tibia and has been extruding small amounts of this calcium phosphate cement from | | that wound. She is therefore indicated for thorough debridement of her tibial tunnel | | that was opened in her previous surgery as well as removal of the calcium phosphate | | cement. We will also plan to perform a diagnostic left knee arthroscopy to confirmed | | that infection is not intra-articular and obtain cultures from the knee as | | well.Procedure:The patient was identified by her ID band in the preoperative holding | | area. The consent form had been previously signed by the patient, and all questions | | were answered to her satisfaction. The operative site was marked by the attending | | surgeon. The patient was subsequently brought back to the operating room and placed | | supine on the operating table. A pneumatic compression device was placed on the right | | leg. General anesthesia was induced. Antibiotics were not initially given for | | purposing of obtaining non-pretreated cultures. Subsequently the left lower extremity | | was prepped and draped in the usual fashion and the sinus track skin sealed with ioban. | | A tourniquet was applied around the left thigh but was not initially inflated. A | | surgical timeout was held again confirming the patient's identity, the procedures to be | | performed, and the correct laterality of the operative site. We began by aspirating the | | left knee. There was minimal fluid from superolateral, anterolateral, anteromedial and | | medial parapatellar approach. The knee had range of motion 5-90 degrees and after | | gentle manipulation under anesthesia ~ 5-6 ml of bloody fluid was aspirated and | | instilled sterilely into 2 separate blood culture bottles and sent for AFB, Fungus and | | bacterial (uncluding propionibacterium) cultures and sensitivities. Next performed was | | the was the diagnostic arthroscopy of the left knee. This was done in the standard | | fashion using an anterolateral portal to enter the joint, with a superolateral outflow | | portal and anteromedial portal for instruments. There were no gross findings of | | purulence in the joint. A synovial biopsy was obtained from the suprapatellar region | | using a There was, however, grossly inflammed synovium present in the the medial and | | lateral gutter of the knee. There was also a partial tear of the anterior horn of | | themedial meniscus, which also appeared to have some inflamed synovium around it. We | | performed a debridement and biopsy of the inflamed synovium and sent this for pathology. | | We also proceeded to perform a partial debridement of the meniscus in this area. The | | tibial plateau had ICRS Grade 3 changes on the medial side and a chondroplasty was | | performed of the unstable chondral flaps associated with the minimally displaced medial | | tibial plateau fracture line. There was no notable pathology in the lateral compartment | | of the knee or around the intact popliteal tendon.We then closed the incisions from the | | knee arthroscopy, coated them with bacitracin ointment, sealed them under ioban and | | turned our attention to the tibia. The tourniquet was inflated to 250 mmHg at this | | time. We made an elliptical incision to excise the previous draining sinus tract on the | | anterior proximal leg. We subsequently found the cortical window that we confirmed | | using fluoroscopy to be the previous site that had been opened to pass the calcium | | phosphate cement. We then proceeded to curette out the previous tibial tunnel. We used | | rongeurs and curettes to thoroughly debride this tibial tunnel as it tracked proximally | | toward the plateau. A large amount of calcium phosphate cement was removed in this | | fashion and several specimens were sent for culture and one to Pathology. It was | | confirmed with fluoroscopy that the entirety of the previous calcium phosphate cement | | had been removed. We also found that deeper in our tibial tunnel, there was brown | | turbid fluid draining up from the intramedullary canal with floating white flecks of | | flotsamand so we therefore entered the intramedullary canal and found a large amount of | | turbid fluid present, which was again sent to culture. After the last of our cultures | | had been sent, the patient received 2g of IV ceftriaxone as per Infectious Disease | | recommendations. As the calcium phosphate cement and the draining tract appear to | | communicate with the intramedullary canal, the decision was made to perform a thorough | | reaming of the intramedullary canal both distally and proximally from our cortical | | window. Flexible reamers were used to sequentially ream up proximally (to 13 mm) and | | distally (to 11 mm) down the intramedullary canal. The tourniquet was deflated once | | cortical chatter had been obtained with the reamers. We then used our canal forensic toxicologist | | to thoroughly wash out the intramedullary canal as well as our tibial wound. Once this | | had been completed, we proceeded to place antibiotic beads in the proximal tibial tunnel | | as well as partially into the intramedullary canal. These were 10 mL of Stimulan | | Calcium Sulfate beads that were impregnated with 2 g of vancomycin and 2.4 g of | | tobramycin. Once we had placed the antibiotic beads, we proceeded to close our incision | | in a layered fashion using a 2-0 Vicryl stitch as well as 3-0 nylon on the skin. The | | wound was dressed in the usual fashion with Xeroform, 4 x 4's, sterile Webril, and an | | Horacio wrap. The patient was subsequently extubated and brought to the postoperative | | holding area in stable condition. Postoperative Plan:The patient will remain touchdown | | weightbearing on the lower left leg. We will continue her on 2 g of Rocephin every 24 | | hours as indicated by Dr. Peck and will follow intraoperative cultures. We will have | | a PICC line placed for purposes of long-term IV antibiotic administration. David | | MD BrittaniORTHOPAEDIC ATTENDING ADDENDUM:I was present for the critical portions | | (entire procedure except for closure) of the procedure as described in the note for this | | encounter. I agree with the findings and the plan of care as documented in the | | resident | | | | s note which I have extensively edited for accuracy and completeness. Alton Hernandez, | | Thiago, M.Engr.General Orthopaedics, Trauma / [id number] / [id number] / [id number] /D: | | 09/02/2012T: 09/03/2012 | | | | | + + X-RAY PORTABLE CHEST 1 VIEW (09/03/2012 9:51 AM PST) + + + + + + | Component | Value | Ref Range | Performed | Pathologist | | | | | At | Signature | + + + + + + | X-RAY | STUDY: [place] CHEST 1 VIEW | | | | | PORTABLE | 09/03/12 09:51:00 | | | | | CHEST 1 | CLINICAL DATA: PICC | | | | | VIEW | placement COMPARISON: | | | | | | Tibial plateau | | | | | | osteomyelitis FINDINGS: | | | | | | Left upper extremity | | | | | | PICC is in place | | | | | | terminating near the | | | | | | cavoatrialjunction. | | | | | | The cardiomediastinal | | | | | | silhouette is | | | | | | unremarkable. Thelungs | | | | | | are clear. There is | | | | | | no pleural effusion or | | | | | | pneumothorax.There is no | | | | | | pulmonary edema. | | | | | | IMPRESSION: Left upper | | | | | | extremity PICC | | | | | | terminating near the | | | | | | cavoatrial junction. | | | | | | Clear lungs. Attending | | | | | | Radiologists: Tiny | | | | | | Thiago WellerAuthor: | | | | | | Tiny Weller M.D. I | | | | | | have personally viewed | | | | | | this procedure/exam, | | | | | | reviewed this report,and | | | | | | made changes to it | | | | | | where appropriate. | | | | | | Final/Electronically | | | | | | signed / Tiny | | | | | | Janee 09/03/2012 13:25 PM | | | | | | | | | | + + + + + + + + | Specimen | + + | | + + + +---------+ + + | Performing | Address | City/State/Zipcode | Phone Number | | Organization | | | | + +---------+ + + | [place] [facility] | | | | [facility] | | | | + +---------+ + + IP CONSULT TO LANCE TEAM (09/03/2012 9:16 AM PST) + + + | Narrative | Performed At | + + + | Adriana Torrez 09/03/2012 9:16 AM PICC INSERTION | | | DOCUMENTATION NOTE Today | | | | | | s Date: 09/03/2012 Start Time: 0900 Patient Location (Unit/Room #): | | | 9k Diagnosis: [id number] Osteomyelitis of knee region [id number] AVN | | | (avascular necrosis of bone) [id number] Pathologic fracture of tibia or | | | fibula [id number] Septic arthritis of knee, left Indications: (Select | | | all that apply) Antibiotics Allergies: Allergies Allergen | | | Reactions | | | Amoxicillin Diarrhea, Hives, Rash, Nausea and Vomiting | | | Sulfa (Sulfonamide Antibiotics) Hives Procedure Preparation: | | | Reviewed Allergies (Heparin, chlorhexidine, local anesthetic): Yes | | | Informed consent obtained: Yes Maximum Sterile Barrier Precautions: | | | Hands washed prior to gloving. Sterile gloves and gown worn by | | | provider placing line. Masks worn by all in room. Site prepped | | | with Chloraprep. FULL barrier drape used and sterile field | | | maintained at all times. PICC CATHETER Product Name: Ricardo | | | Construction: Single 4 Fr 60cm Long 8cm Trimmed Lot # (or | | | Sticker): [id number] INSERTION SITE: - Basilic Left Local | | | anesthetic used: lidocaine Sedation used: none Ultrasound: Yes | | | Microintroducer: Yes Caps placed after insertion: Yes Each lumen | | | flushed with: 20 mL of Normal Saline Blood Return Noted: Yes Sterile | | | dressing applied prior to sterile field removal: Yes Complications: | | | none Adjustments after x-ray: Final cm exposed: Tip | | | location: Placed by: Jory Morales RN Assisted by: Adriana | | | Nikita | | + + + + + | Procedure Note | + + | Adriana Torrez RN - 09/03/2012 9:14 AM PST Formatting of this note might be | | different from the original.PICC INSERTION DOCUMENTATION NOTEToday | | | | s Date: 09/03/2012Start Time: 0900Patient Location (Unit/Room #): 9kDiagnosis: [id number] | | Osteomyelitis of knee [id number] AVN (avascular necrosis of bone)[id number] Pathologic | | fracture of tibia or [id number] Septic arthritis of knee, leftIndications: (Select all | | that apply) Antibiotics Allergies: Allergies Allergen Reactions | | Amoxicillin Diarrhea, Hives, Rash, Nausea and Vomiting | | Sulfa (Sulfonamide Antibiotics) Hives Procedure Preparation:Reviewed Allergies | | (Heparin, chlorhexidine, local anesthetic): YesInformed consent obtained: YesMaximum | | Sterile Barrier Precautions: Hands washed prior to gloving. Sterile gloves and gown | | worn by provider placing line. Masks worn by all in room. Site prepped with Chloraprep. | | FULL barrier drape used and sterile field maintained at all times.PICC CATHETERProduct | | Name: Benistruction: Single4 Fr60cm [id number] TrimmedLot # (or Sticker): | | [id number] SITE: - BasilicLeftLocal anesthetic used: lidocaineSedation used: | | noneUltrasound: YesMicrointroducer: YesCaps placed after insertion: YesEach lumen | | flushed with: 20 mL of Normal SalineBlood Return Noted: YesSterile dressing applied | | prior to sterile field removal: YesComplications: noneAdjustments after x-ray: Final | | cm exposed: Tip location: Placed by: Jory Morales RNAssisted by: Adriana Shelton | |Reviewed Allergies (Heparin, chlorhexidine, local anesthetic): Yes | |Informed consent obtained: Yes | |Maximum Sterile Barrier Precautions: | | Hands washed prior to gloving. | | Sterile gloves and gown worn by provider placing line. | | Masks worn by all in room. | | Site prepped with Chloraprep. | | FULL barrier drape used and sterile field maintained at all times. | | | |PICC CATHETER | |Product Name: Ricardo | |Construction: Single | |4 Fr | |60cm Long | |8cm Trimmed | |Lot # (or Sticker): [id number] | | | |INSERTION SITE: - Basilic | |Left | | | |Local anesthetic used: lidocaine | |Sedation used: none | |Ultrasound: Yes | |Microintroducer: Yes | |Caps placed after insertion: Yes | |Each lumen flushed with: 20 mL of Normal Saline | |Blood Return Noted: Yes | |Sterile dressing applied prior to sterile field removal: Yes | |Complications: none | | | |Adjustments after x-ray: | |Final cm exposed: | |Tip location: | |Placed by: Jory Morales RN | |Assisted by: Adriana Shelton | + + CBC (09/03/2012 2:08 AM PST) + + + + + + | Component | Value | Ref Range | Performed | Pathologist | | | | | At | Signature | + + + + + + | WHITE CELL | 16.0 (H) | 4.4 - 11.0 K/cu | [facility] | | | COUNT | | mm | LABORATORY | | | | | | SERVICES, | | | | | | CORE | | + + + + + + | RED CELL | 3.38 (L) | 4.00 - 5.20 | [facility] | | | COUNT | | M/cu mm | LABORATORY | | | | | | SERVICES, | | | | | | CORE | | + + + + + + | HEMOGLOBIN | 10.0 (L) | 12.0 - 16.0 | [facility] | | | | | g/dL | LABORATORY | | | | | | SERVICES, | | | | | | CORE | | + + + + + + | HEMATOCRIT | 29.9 (L) | 36.0 - 46.0 % | [facility] | | | | | | LABORATORY | | | | | | SERVICES, | | | | | | CORE | | + + + + + + | MCV | 88.3 | 80.0 - 96.0 fL | [facility] | | | | | | LABORATORY | | | | | | SERVICES, | | | | | | CORE | | + + + + + + | MCHC | 33.5 | 33.4 - 35.5 | [facility] | | | | | g/dL | LABORATORY | | | | | | SERVICES, | | | | | | CORE | | + + + + + + | RDW | 13.9 | 11.5 - 15.0 % | [facility] | | | | | | LABORATORY | | | | | | SERVICES, | | | | | | CORE | | + + + + + + | PLATELET | 224 | 150 - 400 K/cu | [facility] [...] | + + + + + | [facility] | [address] | [place] [address] | | | SERVICES, [place] | [address] | | | + + + + + BASIC METABOLIC SET (NA, K, CL, TCO2, BUN, CR, GLU, CA) (09/03/2012 2:07 AM PST) + +---------+ + + + | Component | Value | Ref Range | Performed | Pathologist | | | | | At | Signature | + +---------+ + + + | GLUCOSE, | 129 (H) | 60 - 99 mg/dL | [facility] [...] +---------+ + + + | CREATININE | 0.66 | 0.60 - 1.10 | [facility] | | | PLASMA | | mg/dL | LABORATORY | | | (LAB) | | | SERVICES, | | | | | | CORE | | + +---------+ + + + | SODIUM, | 139 | 136 - 145 | [facility] | | | PLASMA | | mmol/L | LABORATORY | | | (LAB) | | | SERVICES, | | | | | | CORE | | + +---------+ + + + | POTASSIUM, | 4.4 | 3.4 - 5.0 | [facility] | [...] +---------+ + + + | CALCIUM, | 8.1 (L) | 8.6 - 10.2 | [facility] | | | PLASMA | | mg/dL | LABORATORY | | | (LAB) | | | SERVICES, | | | | | | CORE | | + +---------+ + + + | ANION GAP | 8 | 4 - 11 mmol/L | [facility] [...] | + + + + + | [facility] | [address] | [place] [address] | | | SERVICES, CORE | [address] | | | + + + + + X-RAY TIBIA & FIBULA 2 VIEWS LT (09/02/2012 9:14 PM PST) + + + + + + | Component | Value | Ref Range | Performed | Pathologist | | | | | At | Signature | + + + + + + | TIBIA AND | STUDY: TIBIA AND FIBULA | | | | | FIBULA 2 | 2 VIEWS LT 09/02/12 | | | | | VIEWS LT | 21:14:00 HISTORY: | | | | | | Antibiotic bead | | | | | | placement FINDINGS: | | | | | | Since the previous study | | | | | | in July 2012, there | | | | | | has an | | | | | | apparentcurettage of the | | | | | | previous bone cement in | | | | | | the proximal left | | | | | | tibialmetadiaphysis, and | | | | | | placement of antibiotic | | | | | | beads throughout | | | | | | thecavity. The | | | | | | visualized bones show no | | | | | | acute fracture, | | | | | | malalignment,or | | | | | | aggressive focal | | | | | | lytic/blastic lesion. | | | | | | No focal regions | | | | | | ofcortical erosion or | | | | | | periosteal reaction are | | | | | | visible. Dressing | | | | | | isnoted over the | | | | | | anterior skin surface of | | | | | | the proximal left lower | | | | | | leg.Soft tissues show | | | | | | no laceration or | | | | | | unexpected radiopaque | | | | | | foreignbody. IMPRESSION: | | | | | | Interval curettage of | | | | | | previous bone cement in | | | | | | the proximal left | | | | | | tibiawith placement of | | | | | | antibiotic beads | | | | | | throughout the cavity. | | | | | | Attending Radiologists: | | | | | | Jose Marquis | | | | | | ThiagoAuthor: Jose | | | | | | Thiago Marquis I have | | | | | | personally viewed this | | | | | | procedure/exam, reviewed | | | | | | this report,and made | | | | | | changes to it where | | | | | | appropriate. | | | | | | Final/Electronically | | | | | | signed / Jose | | | | | | Benitez 09/03/2012 8:48 | | | | | | AM | | | | + + [...] +---------+ + + X-RAY KNEE 2 VIEWS LEFT (09/02/2012 5:29 PM PST) + + + + + + | Component | Value | Ref Range | Performed | Pathologist | | | | | At | Signature | + + + + + + | KNEE 2 | STUDY: KNEE 2 VIEWS LEFT | | | | | VIEWS LEFT | 09/02/12 17:29:00 | | | | | | HISTORY: Intraoperative | | | | | | FINDINGS: Two | | | | | | intraoperative | | | | | | fluoroscopic views of | | | | | | the knee show | | | | | | apparentanterior | | | | | | approach curettage of | | | | | | the previously described | | | | | | bone cementin the | | | | | | medial aspect of the | | | | | | proximal tibial | | | | | | metaphysis. Attending | | | | | | Radiologists: Jose | | | | | | Thiago MarquisAuthor: | | | | | | Jose Marquis M.D. I | | | | | | have personally viewed | | | | | | this procedure/exam, | | | | | | reviewed this report,and | | | | | | made changes to it | | | | | | where appropriate. | | | | | | Final/Electronically | | | | | | signed / Jose | | | | | | Benitez 09/03/2012 8:12 | | | | | | AM | | | | + + + + + + + + | Specimen | + + | | + + + +---------+ + + | Performing | Address | City/State/Zipcode | Phone Number | | Organization | | | | + +---------+ + + | [facility] | | | | | RADIOLOGY | | | | + +---------+ + + CULTURE, FUNGAL EXCEPT BLOOD, SKIN, HAIR, NAIL (09/02/2012 4:30 PM PST) + + + + + + | Component | Value | Ref Range | Performed | Pathologist | | | | | At | Signature | + + + + + + | CULTURE | C Fungus, OtherSource: | | [facility] - | | | RESULT | Tissue | | [facility] - | | | | Final SMEAR:No | | [place] | | | | fungal elements seen | | | | | | CULTURE RESULT:No fungus | | | | | | isolated at 3 weeks. | | | | | |CULTURE RESULT: | | | | | |No fungus isolated at 3 weeks. | | | | + + + + + + + + | Specimen | + + | Tissue | + + + + + + + | Performing | Address | City/State/Zipcode | Phone Number | | Organization | | | | + + + + + | [facility] - | [address] | [place] [address] | | | [place] | | | | + + + + + CULTURE, AFB (ALL SPEC TYPES EXCEPT BLOOD) (09/02/2012 4:30 PM PST) + + + + + + | Component | Value | Ref Range | Performed | Pathologist | | | | | At | Signature | + + + + + + | CULTURE | C AFBSource: Tissue | | [facility] - | | | RESULT | | | [facility] - | | | | Final SMEAR:AFB not | | [place] | | | | detected source: 10) | | | | | | left medullary canal, | | | | | | left tibia CULTURE | | | | | | RESULT:No acid fast | | | | | | bacteria isolated at 6 | | | | | | weeks. | | | | + + + + + + + + | Specimen | + + | Tissue | + + + + + + + | Performing | Address | City/State/Zipcode | Phone Number | | Organization | | | | + + + + + | [facility] | [address] | [place] [address] | | | [place] | | | | + + + + + CULTURE, TISSUE (09/02/2012 4:30 PM PST) + + + + + + | Component | Value | Ref Range | Performed | Pathologist | | | | | At | Signature | + + + + + + | CULTURE | C TissueSource: Tissue | | [facility] - | | | RESULT | | | [facility] - | | | | Final GRAM STAIN:No | | [place] | | | | squamous epithelial | | | | | | cells No PMNS No | | | | | | organisms seen. CULTURE | | | | | | RESULT:No growth to date | | | | | | Culture examined daily | | | | | | Report will be updated | | | | | | if growth occurs No | | | | | | Propionibacterium | | | | | | isolated No anaerobic | | | | | | organisms isolated. | | | | | |No anaerobic organisms isolated. | | | | + + + + + + + + | Specimen | + + | Tissue | + + + + + + + | Performing | Address | City/State/Zipcode | Phone Number | | Organization | | | | + + + + + | [facility] - | [address] | [place] [address] | | | [place] | | | | + + + + + CULTURE, AFB (ALL SPEC TYPES EXCEPT BLOOD) (09/02/2012 4:30 PM PST) + + + + + + | Component | Value | Ref Range | Performed | Pathologist | | | | | At | Signature | + + + + + + | CULTURE | C AFBSource: Tissue | | [facility] - | | | RESULT | | | [facility] - | | | | Final SMEAR:AFB not | | [place] | | | | detected source: left | | | | | | retained calcium left | | | | | | tibia #9 CULTURE | | | | | | RESULT:No acid fast | | | | | | bacteria isolated at 6 | | | | | | weeks. | | | | + + + + + + + + | Specimen | + + | Tissue | + + + + + + + | Performing | Address | City/State/Zipcode | Phone Number | | Organization | | | | + + + + + | [facility] | [address] | [place] [address] | | | [place] | | | | + + + + + CULTURE, FUNGAL EXCEPT BLOOD, SKIN, HAIR, NAIL (09/02/2012 4:30 PM PST) + + + + + + | Component | Value | Ref Range | Performed | Pathologist | | | | | At | Signature | + + + + + + | CULTURE | C Fungus, OtherSource: | | [facility] - | | | RESULT | Tissue | | [facility] - | | | | Final SMEAR:No | | [place] | | | | fungal elements seen | | | | | | CULTURE RESULT:No fungus | | | | | | isolated at 3 weeks. | | | | | |CULTURE RESULT: | | | | | |No fungus isolated at 3 weeks. | | | | + + + + + + + + | Specimen | + + | Tissue | + + + + + + + | Performing | Address | City/State/Zipcode | Phone Number | | Organization | | | | + + + + + | [facility] - | [address] | [place] [address] | | | [place] | | | | + + + + + CULTURE, TISSUE (09/02/2012 4:30 PM PST) + + + + + + | Component | Value | Ref Range | Performed | Pathologist | | | | | At | Signature | + + + + + + | CULTURE | C TissueSource: Tissue | | [facility] - | | | RESULT | | | [facility] - | | | | Final GRAM STAIN:No | | [place] | | | | squamous epithelial | | | | | | cells No PMNS No | | | | | | organisms seen. CULTURE | | | | | | RESULT:Rare | | | | | | Corynebacterium species | | | | | | not C. aayushikeium | | | | | | Presumptive | | | | | | identification Refer to | | | | | | culture collected | | | | | | 09/02/12 at 16:30 site 6 | | | | | | for complete | | | | | | identification No | | | | | | Propionibacterium | | | | | | isolated No anaerobic | | | | | | organisms isolated. | | | | + + + + + + + + | Specimen | + + | Tissue | + + + + + + + | Performing | Address | City/State/Zipcode | Phone Number | | Organization | | | | + + + + + | [facility] - | [address] | [place] [address] | | | [place] | | | | + + + + + CULTURE, FUNGAL EXCEPT BLOOD, SKIN, HAIR, NAIL (09/02/2012 4:30 PM PST) + + + + + + | Component | Value | Ref Range | Performed | Pathologist | | | | | At | Signature | + + + + + + | CULTURE | C Fungus, OtherSource: | | [facility] - | | | RESULT | Tissue | | [facility] - | | | | Final SMEAR:No | | [place] | | | | fungal elements seen | | | | | | CULTURE RESULT:No fungus | | | | | | isolated at 3 weeks. | | | | | |CULTURE RESULT: | | | | | |No fungus isolated at 3 weeks. | | | | + + + + + + + + | Specimen | + + | Tissue | + + + + + + + | Performing | Address | City/State/Zipcode | Phone Number | | Organization | | | | + + + + + | [facility] | [address] | [place] [address] | | | [place] | | | | + + + + + CULTURE, AFB (ALL SPEC TYPES EXCEPT BLOOD) (09/02/2012 4:30 PM PST) + + + + + + | Component | Value | Ref Range | Performed | Pathologist | | | | | At | Signature | + + + + + + | CULTURE | C AFBSource: Tissue | | [facility] - | | | RESULT | | | [facility] - | | | | Final SMEAR:AFB not | | [place] | | | | detected source: left | | | | | | retained calcium left | | | | | | tibia #8 CULTURE | | | | | | RESULT:No acid fast | | | | | | bacteria isolated at 6 | | | | | | weeks. | | | | + + + + + + + + | Specimen | + + | Tissue | + + + + + + + | Performing | Address | City/State/Zipcode | Phone Number | | Organization | | | | + + + + + | [facility] - | [address] | [place] [address] | | | [place] | | | | + + + + + CULTURE, TISSUE (09/02/2012 4:30 PM PST) + + + + + + | Component | Value | Ref Range | Performed | Pathologist | | | | | At | Signature | + + + + + + | CULTURE | C TissueSource: Tissue | | [facility] - | | | RESULT | | | [facility] - | | | | Final GRAM STAIN:No | | [place] | | | | squamous epithelial | | | | | | cells No PMNS No | | | | | | organisms seen. CULTURE | | | | | | RESULT:Rare | | | | | | Corynebacterium species | | | | | | not C. jeikeium | | | | | | Presumptive | | | | | | identification Refer to | | | | | | culture collected | | | | | | 09/02/12 at 16:30 site #6 | | | | | | for complete | | | | | | identification Rare | | | | | | Coagulase negative | | | | | | Staphylococcus species | | | | | | 1+ Peptostreptococcus | | | | | | species No | | | | | | Propionibacterium | | | | | | isolated | | | | | | ORGANISM:..............C | | | | | | oagulase negative | | | | | | Staphylococcus | | | | | | speciesCefazolin | | | | | | | | | | | | RClindamycin | | | | | | RErythroycin | | | | | | ROxacillin | | | | | | | | | | | | RTrimethoprim/Sulfa | | | | | | STetracycline | | | | | | SVancomycin | | | | | | S | | | | + + + + + + + + | Specimen | + + | Tissue | + + + + + + + | Performing | Address | City/State/Zipcode | Phone Number | | Organization | | | | + + + + + | [facility] - | [address] | [place] [address] | | | [place] | | | | + + + + + CULTURE, FUNGAL EXCEPT BLOOD, SKIN, HAIR, NAIL (09/02/2012 4:30 PM PST) + + + + + + | Component | Value | Ref Range | Performed | Pathologist | | | | | At | Signature | + + + + + + | CULTURE | C Fungus, OtherSource: | | [facility] - | | | RESULT | Tissue | | [facility] - | | | | Final SMEAR:No | | [place] | | | | fungal elements seen | | | | | | CULTURE RESULT:No fungus | | | | | | isolated at 3 weeks. | | | | | |CULTURE RESULT: | | | | | |No fungus isolated at 3 weeks. | | | | + + + + + + + + | Specimen | + + | Tissue | + + + + + + + | Performing | Address | City/State/Zipcode | Phone Number | | Organization | | | | + + + + + | [facility] - | [address] | [place] [address] | | | [facility] | | | | + + + + + CULTURE, AFB (ALL SPEC TYPES EXCEPT BLOOD) (09/02/2012 4:30 PM PST) + + + + + + | Component | Value | Ref Range | Performed | Pathologist | | | | | At | Signature | + + + + + + | CULTURE | C AFBSource: Tissue | | [facility] - | | | RESULT | | | [facility] - | | | | Final SMEAR:AFB not | | [place] | | | | detected source: left | | | | | | retained calcium left | | | | | | tibia #7 CULTURE | | | | | | RESULT:No acid fast | | | | | | bacteria isolated at 6 | | | | | | weeks. | | | | + + + + + + + + | Specimen | + + | Tissue | + + + + + + + | Performing | Address | City/State/Zipcode | Phone Number | | Organization | | | | + + + + + | [facility] - | [address] | [place] [address] | | | [facility] | | | | + + + + + CULTURE, TISSUE (09/02/2012 4:30 PM PST) + + + + + + | Component | Value | Ref Range | Performed | Pathologist | | | | | At | Signature | + + + + + + | CULTURE | C TissueSource: Tissue | | [facility] - | | | RESULT | | | [facility] - | | | | Final GRAM STAIN:No | | [place] | | | | squamous epithelial | | | | | | cells Rare PMNS No | | | | | | organisms seen. CULTURE | | | | | | RESULT:Organism(s) | | | | | | isolated from broth | | | | | | media only | | | | | | Staphylococcus aureus | | | | | | Rare Corynebacterium | | | | | | species not C. jeikeium | | | | | | Presumptive | | | | | | identification Refer to | | | | | | culture collected | | | | | | 09/02/12 at 16:30 site #6 | | | | | | for complete | | | | | | identification Rare | | | | | | Coagulase negative | | | | | | Staphylococcus species | | | | | | No Propionibacterium | | | | | | isolated No anaerobic | | | | | | organisms isolated. | | | | | | ORGANISM:..............S | | | | | | taphylococcus | | | | | | aureusCefazolin | | | | | | SClindamycin | | | | | | | | | | | | SErythroycin | | | | | | SOxacillin | | | | | | | | | | | | SPenicillin | | | | | | | | | | | | RTrimethoprim/Sulfa | | | | | | STetracycline | | | | | | SVancomycin | | | | | | S | | | | | | ORGANISM:..............C | | | | | | oagulase negative | | | | | | Staphylococcus | | | | | | speciesCefazolin | | | | | | | | | | | | RClindamycin | | | | | | RErythroycin | | | | | | ROxacillin | | | | | | | | | | | | RTrimethoprim/Sulfa | | | | | | STetracycline | | | | | | SVancomycin | | | | | | S | | | | + + + + + + + + | Specimen | + + | Tissue | + + + + + + + | Performing | Address | City/State/Zipcode | Phone Number | | Organization | | | | + + + + + | [facility] - | [address] | [place] [address] | | | [place] | | | | + + + + + CULTURE, FUNGAL EXCEPT BLOOD, SKIN, HAIR, NAIL (09/02/2012 4:30 PM PST) + + + + + + | Component | Value | Ref Range | Performed | Pathologist | | | | | At | Signature | + + + + + + | CULTURE | C Fungus, OtherSource: | | [facility] - | | | RESULT | Tissue | | [facility] - | | | | Final SMEAR:No | | [place] | | | | fungal elements seen | | | | | | CULTURE RESULT:No fungus | | | | | | isolated at 3 weeks. | | | | | |CULTURE RESULT: | | | | | |No fungus isolated at 3 weeks. | | | | + + + + + + + + | Specimen | + + | Tissue | + + + + + + + | Performing | Address | City/State/Zipcode | Phone Number | | Organization | | | | + + + + + | [facility] - | [address] | [place] [address] | | | [place] | | | | + + + + + CULTURE, AFB (ALL SPEC TYPES EXCEPT BLOOD) (09/02/2012 4:30 PM PST) + + + + + + | Component | Value | Ref Range | Performed | Pathologist | | | | | At | Signature | + + + + + + | CULTURE | C AFBSource: Tissue | | [facility] - | | | RESULT | | | [facility] - | | | | Final SMEAR:AFB not | | [place] | | | | detected source: left | | | | | | retained calcium left | | | | | | tibia #6 CULTURE | | | | | | RESULT:Specimen heavily | | | | | | contaminated. Culture | | | | | | discontinued. | | | | | |Culture discontinued. | | | | + + + + + + + + | Specimen | + + | Tissue | + + + + + + + | Performing | Address | City/State/Zipcode | Phone Number | | Organization | | | | + + + + + | [facility] - | [address] | [place] [address] | | | [place] | | | | + + + + + CULTURE, TISSUE (09/02/2012 4:30 PM PST) + + + + + + | Component | Value | Ref Range | Performed | Pathologist | | | | | At | Signature | + + + + + + | CULTURE | C TissueSource: Tissue | | [facility] - | | | RESULT | | | [facility] - | | | | Final GRAM STAIN:No | | [place] | | | | squamous epithelial | | | | | | cells Rare PMNS No | | | | | | organisms seen. CULTURE | | | | | | RESULT:Organism(s) | | | | | | isolated from broth | | | | | | media only | | | | | | Staphylococcus aureus 1+ | | | | | | Corynebacterium species | | | | | | not C. jeikeium 1+ | | | | | | Coagulase negative | | | | | | Staphylococcus species | | | | | | No Propionibacterium | | | | | | isolated No anaerobic | | | | | | organisms isolated. | | | | | | ORGANISM:..............S | | | | | | taphylococcus | | | | | | aureusCefazolin | | | | | | SClindamycin | | | | | | | | | | | | SErythroycin | | | | | | SOxacillin | | | | | | | | | | | | SPenicillin | | | | | | | | | | | | RTrimethoprim/Sulfa | | | | | | STetracycline | | | | | | SVancomycin | | | | | | S | | | | | | ORGANISM:..............C | | | | | | oagulase negative | | | | | | Staphylococcus | | | | | | speciesCefazolin | | | | | | | | | | | | RClindamycin | | | | | | RErythroycin | | | | | | ROxacillin | | | | | | | | | | | | RTrimethoprim/Sulfa | | | | | | STetracycline | | | | | | SVancomycin | | | | | | S | | | | + + + + + + + + | Specimen | + + | Tissue | + + + + + + + | Performing | Address | City/State/Zipcode | Phone Number | | Organization | | | | + + + + + | [facility] - | [address] | [place] [address] | | | [place] | | | | + + + + + CULTURE, FUNGAL EXCEPT BLOOD, SKIN, HAIR, NAIL (09/02/2012 4:30 PM PST) + + + + + + | Component | Value | Ref Range | Performed | Pathologist | | | | | At | Signature | + + + + + + | CULTURE | C Fungus, OtherSource: | | [facility] - | | | RESULT | Tissue | | [facility] - | | | | Final SMEAR:No | | [place] | | | | fungal elements seen | | | | | | CULTURE RESULT:No fungus | | | | | | isolated at 3 weeks. | | | | | |CULTURE RESULT: | | | | | |No fungus isolated at 3 weeks. | | | | + + + + + + + + | Specimen | + + | Tissue | + + + + + + + | Performing | Address | City/State/Zipcode | Phone Number | | Organization | | | | + + + + + | [facility] - | [address] | [place] [address] | | | [place] | | | | + + + + + CULTURE, AFB (ALL SPEC TYPES EXCEPT BLOOD) (09/02/2012 4:30 PM PST) + + + + + + | Component | Value | Ref Range | Performed | Pathologist | | | | | At | Signature | + + + + + + | CULTURE | C AFBSource: Tissue | | [facility] - | | | RESULT | | | [facility] - | | | | Final SMEAR:AFB not | | [facility] | | | | detected source: left | | | | | | retained calcium left | | | | | | tibia #5 CULTURE | | | | | | RESULT:Specimen heavily | | | | | | contaminated. Culture | | | | | | discontinued. | | | | | |Culture discontinued. | | | | + + + + + + + + | Specimen | + + | Tissue | + + + + + + + | Performing | Address | City/State/Zipcode | Phone Number | | Organization | | | | + + + + + | [facility] - | [address] | [place], [place] [facility] | | | [place] | | | | + + + + + CULTURE, TISSUE (09/02/2012 4:30 PM PST) + + + + + + | Component | Value | Ref Range | Performed | Pathologist | | | | | At | Signature | + + + + + + | CULTURE | C TissueSource: Tissue | | [facility] - | | | RESULT | | | [facility] - | | | | Final GRAM STAIN:No | | [place] | | | | squamous epithelial | | | | | | cells Rare PMNS Rare | | | | | | Gram positive cocci . | | | | | | CULTURE RESULT:Rare | | | | | | Staphylococcus aureus 2+ | | | | | | Coagulase negative | | | | | | Staphylococcus species | | | | | | 3+ Corynebacterium | | | | | | species not C. jeikeium | | | | | | Presumptive | | | | | | identification Refer to | | | | | | culture collected | | | | | | 09/02/12 at 16:30 site #6 | | | | | | for complete | | | | | | identification No | | | | | | Propionibacterium | | | | | | isolated No anaerobic | | | | | | organisms isolated. | | | | | | ORGANISM:..............S | | | | | | taphylococcus | | | | | | aureusCefazolin | | | | | | SClindamycin | | | | | | | | | | | | SErythroycin | | | | | | SOxacillin | | | | | | | | | | | | SPenicillin | | | | | | | | | | | | RTrimethoprim/Sulfa | | | | | | STetracycline | | | | | | SVancomycin | | | | | | S | | | | | | ORGANISM:..............C | | | | | | oagulase negative | | | | | | Staphylococcus | | | | | | speciesCefazolin | | | | | | | | | | | | RClindamycin | | | | | | RErythroycin | | | | | | ROxacillin | | | | | | | | | | | | RTrimethoprim/Sulfa | | | | | | STetracycline | | | | | | SVancomycin | | | | | | S | | | | + + + + + + + + | Specimen | + + | Tissue | + + + + + + + | Performing | Address | City/State/Zipcode | Phone Number | | Organization | | | | + + + + + | [facility] - | [address] | [place] [address] | | | [place] | | | | + + + + + CULTURE, FUNGAL EXCEPT BLOOD, SKIN, HAIR, NAIL (09/02/2012 4:30 PM PST) + + + + + + | Component | Value | Ref Range | Performed | Pathologist | | | | | At | Signature | + + + + + + | CULTURE | C Fungus, OtherSource: | | [facility] - | | | RESULT | Tissue | | [facility] - | | | | Final SMEAR:No | | [place] | | | | fungal elements seen | | | | | | CULTURE RESULT:No fungus | | | | | | isolated at 3 weeks. | | | | | |CULTURE RESULT: | | | | | |No fungus isolated at 3 weeks. | | | | + + + + + + + + | Specimen | + + | Tissue | + + + + + + + | Performing | Address | City/State/Zipcode | Phone Number | | Organization | | | | + + + + + | [facility] - | [address] | [place] [address] | | | [place] | | | | + + + + + CULTURE, AFB (ALL SPEC TYPES EXCEPT BLOOD) (09/02/2012 4:30 PM PST) + + + + + + | Component | Value | Ref Range | Performed | Pathologist | | | | | At | Signature | + + + + + + | CULTURE | C AFBSource: Tissue | | [facility] - | | | RESULT | | | [facility] - | | | | Final SMEAR:AFB not | | [place] | | | | detected source: left | | | | | | retained calcium left | | | | | | tibia #4 CULTURE | | | | | | RESULT:Specimen heavily | | | | | | contaminated. Culture | | | | | | discontinued. | | | | | |Culture discontinued. | | | | + + + + + + + + | Specimen | + + | Tissue | + + + + + + + | Performing | Address | City/State/Zipcode | Phone Number | | Organization | | | | + + + + + | [facility] - | [address] | [place] [address] | | | [facility] | | | | + + + + + CULTURE, TISSUE (09/02/2012 4:30 PM PST) + + + + + + | Component | Value | Ref Range | Performed | Pathologist | | | | | At | Signature | + + + + + + | CULTURE | C TissueSource: Tissue | | [facility] - | | | RESULT | | | [facility] - | | | | Final GRAM STAIN:No | | [place] | | | | squamous epithelial | | | | | | cells No PMNS Rare Gram | | | | | | positive cocci . CULTURE | | | | | | RESULT:Rare | | | | | | Staphylococcus aureus 3+ | | | | | | Corynebacterium species | | | | | | not C. jeikeium | | | | | | Presumptive | | | | | | identification Refer to | | | | | | culture collected | | | | | | 09/02/12 at 16:30 site #6 | | | | | | for complete | | | | | | identification 3+ | | | | | | Coagulase negative | | | | | | Staphylococcus species | | | | | | No Propionibacterium | | | | | | isolated No anaerobic | | | | | | organisms isolated. | | | | | | ORGANISM:..............S | | | | | | taphylococcus | | | | | | aureusCefazolin | | | | | | SClindamycin | | | | | | | | | | | | SErythroycin | | | | | | SOxacillin | | | | | | | | | | | | SPenicillin | | | | | | | | | | | | RTrimethoprim/Sulfa | | | | | | STetracycline | | | | | | SVancomycin | | | | | | S | | | | | | ORGANISM:..............C | | | | | | oagulase negative | | | | | | Staphylococcus | | | | | | speciesCefazolin | | | | | | | | | | | | RClindamycin | | | | | | RErythroycin | | | | | | ROxacillin | | | | | | | | | | | | RTrimethoprim/Sulfa | | | | | | STetracycline | | | | | | SVancomycin | | | | | | S | | | | + + + + + + + + | Specimen | + + | Tissue | + + + + + + + | Performing | Address | City/State/Zipcode | Phone Number | | Organization | | | | + + + + + | [facility] - | [address] | [place] [address] | | | [place] | | | | + + + + + CULTURE, FUNGAL EXCEPT BLOOD, SKIN, HAIR, NAIL (09/02/2012 4:30 PM PST) + + + + + + | Component | Value | Ref Range | Performed | Pathologist | | | | | At | Signature | + + + + + + | CULTURE | C Fungus, OtherSource: | | [facility] - | | | RESULT | Tissue | | [facility] - | | | | Final SMEAR:No | | [place] | | | | fungal elements seen | | | | | | CULTURE RESULT:No fungus | | | | | | isolated at 3 weeks. | | | | | |CULTURE RESULT: | | | | | |No fungus isolated at 3 weeks. | | | | + + + + + + + + | Specimen | + + | Tissue | + + + + + + + | Performing | Address | City/State/Zipcode | Phone Number | | Organization | | | | + + + + + | [facility] - | [address] | [place] [address] | | | [place] | | | | + + + + + CULTURE, AFB (ALL SPEC TYPES EXCEPT BLOOD) (09/02/2012 4:30 PM PST) + + + + + + | Component | Value | Ref Range | Performed | Pathologist | | | | | At | Signature | + + + + + + | CULTURE | C AFBSource: Sputum | | [facility] - | | | RESULT | | | [facility] - | | | | Final SMEAR:AFB not | | [place] | | | | detected source: 3) | | | | | | left sinus tract, left | | | | | | proximal tibia CULTURE | | | | | | RESULT:No acid fast | | | | | | bacteria isolated at 6 | | | | | | weeks. | | | | + + + + + + + + | Specimen | + + | Tissue | + + + + + + + | Performing | Address | City/State/Zipcode | Phone Number | | Organization | | | | + + + + + | [facility] - | [address] | [place] [address] | | | [facility] | | | | + + + + + CULTURE, TISSUE (09/02/2012 4:30 PM PST) + + + + + + | Component | Value | Ref Range | Performed | Pathologist | | | | | At | Signature | + + + + + + | CULTURE | C TissueSource: Tissue | | [facility] - | | | RESULT | | | [facility] - | | | | Final GRAM STAIN:No | | [place] | | | | squamous epithelial | | | | | | cells Rare PMNS No | | | | | | organisms seen. CULTURE | | | | | | RESULT:Rare | | | | | | Staphylococcus aureus 1+ | | | | | | Coagulase negative | | | | | | Staphylococcus species | | | | | | No Propionibacterium | | | | | | isolated No anaerobic | | | | | | organisms isolated. | | | | | | ORGANISM:..............S | | | | | | taphylococcus | | | | | | aureusCefazolin | | | | | | SClindamycin | | | | | | | | | | | | SErythroycin | | | | | | SOxacillin | | | | | | | | | | | | SPenicillin | | | | | | | | | | | | RTrimethoprim/Sulfa | | | | | | STetracycline | | | | | | SVancomycin | | | | | | S | | | | | | ORGANISM:..............C | | | | | | oagulase negative | | | | | | Staphylococcus | | | | | | speciesCefazolin | | | | | | | | | | | | RClindamycin | | | | | | RErythroycin | | | | | | ROxacillin | | | | | | | | | | | | RTrimethoprim/Sulfa | | | | | | STetracycline | | | | | | SVancomycin | | | | | | S | | | | + + + + + + + + | Specimen | + + | Tissue | + + + + + + + | Performing | Address | City/State/Zipcode | Phone Number | | Organization | | | | + + + + + | [facility] | [address] | [place] [address] | | | [place] | | | | + + + + + CULTURE, FUNGAL EXCEPT BLOOD, SKIN, HAIR, NAIL (09/02/2012 4:30 PM PST) + + + + + + | Component | Value | Ref Range | Performed | Pathologist | | | | | At | Signature | + + + + + + | CULTURE | C Fungus, OtherSource: | | [facility] - | | | RESULT | Tissue | | [facility] - | | | | Final SMEAR:No | | [place] | | | | fungal elements seen | | | | | | CULTURE RESULT:No fungus | | | | | | isolated at 3 weeks. | | | | | |CULTURE RESULT: | | | | | |No fungus isolated at 3 weeks. | | | | + + + + + + + + | Specimen | + + | Tissue | + + + + + + + | Performing | Address | City/State/Zipcode | Phone Number | | Organization | | | | + + + + + | [facility] - | [address] | [place] [address] | | | [place] | | | | + + + + + CULTURE, AFB (ALL SPEC TYPES EXCEPT BLOOD) (09/02/2012 4:30 PM PST) + + + + + + | Component | Value | Ref Range | Performed | Pathologist | | | | | At | Signature | + + + + + + | CULTURE | C AFBSource: Tissue | | [facility] - | | | RESULT | | | [facility] - | | | | Final SMEAR:AFB not | | [place] | | | | detected source: 2) | | | | | | left anterior horn, | | | | | | medial meniscus tear | | | | | | CULTURE RESULT:No acid | | | | | | fast bacteria isolated | | | | | | at 6 weeks. | | | | + + + + + + + + | Specimen | + + | Tissue | + + + + + + + | Performing | Address | City/State/Zipcode | Phone Number | | Organization | | | | + + + + + | [facility] - | [address] | [place] [address] | | | [place] | | | | + + + + + CULTURE, TISSUE (09/02/2012 4:30 PM PST) + + + + + + | Component | Value | Ref Range | Performed | Pathologist | | | | | At | Signature | + + + + + + | CULTURE | C TissueSource: Tissue | | [facility] - | | | RESULT | | | [facility] - | | | | Final GRAM STAIN:No | | [place] | | | | squamous epithelial | | | | | | cells No PMNS No | | | | | | organisms seen. CULTURE | | | | | | RESULT:Rare Micrococcus | | | | | | species No | | | | | | Propionibacterium | | | | | | isolated No anaerobic | | | | | | organisms isolated. | | | | | |No anaerobic organisms isolated. | | | | + + + + + + + + | Specimen | + + | Tissue | + + + + + + + | Performing | Address | City/State/Zipcode | Phone Number | | Organization | | | | + + + + + | [facility] - | [address] | [place] [address] | | | [place] | | | | + + + + + CULTURE, FUNGAL EXCEPT BLOOD, SKIN, HAIR, NAIL (09/02/2012 4:30 PM PST) + + + + + + | Component | Value | Ref Range | Performed | Pathologist | | | | | At | Signature | + + + + + + | CULTURE | C Fungus, OtherSource: | | [facility] - | | | RESULT | Tissue | | [facility] - | | | | Final SMEAR:No | | [place] | | | | fungal elements seen | | | | | | CULTURE RESULT:No fungus | | | | | | isolated at 3 weeks. | | | | | |CULTURE RESULT: | | | | | |No fungus isolated at 3 weeks. | | | | + + + + + + + + | Specimen | + + | Tissue | + + + + + + + | Performing | Address | City/State/Zipcode | Phone Number | | Organization | | | | + + + + + | [facility] - | [address] | [place] [address] | | | [place] | | | | + + + + + CULTURE, AFB (ALL SPEC TYPES EXCEPT BLOOD) (09/02/2012 4:30 PM PST) + + + + + + | Component | Value | Ref Range | Performed | Pathologist | | | | | At | Signature | + + + + + + | CULTURE | C AFBSource: Tissue | | [facility] - | | | RESULT | | | [facility] - | | | | Final SMEAR:AFB not | | [place] | | | | detected source: left | | | | | | sinovium, left knee | | | | | | superior patellar pouch | | | | | | CULTURE RESULT:No acid | | | | | | fast bacteria isolated | | | | | | at 6 weeks. | | | | + + + + + + + + | Specimen | + + | Tissue | + + + + + + + | Performing | Address | City/State/Zipcode | Phone Number | | Organization | | | | + + + + + | [facility] - | [address] | [place] [address] | | | [place] | | | | + + + + + CULTURE, TISSUE (09/02/2012 4:30 PM PST) + + + + + + | Component | Value | Ref Range | Performed | Pathologist | | | | | At | Signature | + + + + + + | CULTURE | C TissueSource: Tissue | | [facility] - | | | RESULT | | | [facility] - | | | | Final GRAM STAIN:No | | [place] | | | | squamous epithelial | | | | | | cells No PMNS No | | | | | | organisms seen. CULTURE | | | | | | RESULT:Rare Coagulase | | | | | | negative Staphylococcus | | | | | | species No | | | | | | Propionibacterium | | | | | | isolated No anaerobic | | | | | | organisms isolated. | | | | | | ORGANISM:..............C | | | | | | oagulase negative | | | | | | Staphylococcus | | | | | | speciesCefazolin | | | | | | | | | | | | SClindamycin | | | | | | SErythroycin | | | | | | SOxacillin | | | | | | | | | | | | STrimethoprim/Sulfa | | | | | | STetracycline | | | | | | SVancomycin | | | | | | S | | | | + + + + + + + + | Specimen | + + | Tissue | + + + + + + + | Performing | Address | City/State/Zipcode | Phone Number | | Organization | | | | + + + + + | [facility] - | [address] | [place] [address] | | | [place] | | | | + + + + + CULTURE, BODY FLUID (09/02/2012 3:15 PM PST) + + + + + + | Component | Value | Ref Range | Performed | Pathologist | | | | | At | Signature | + + + + + + | CULTURE | C Body FluidSource: Body | | [facility] - | | | RESULT | Fl | | [facility] - | | | | Final CULTURE | | [place] | | | | RESULT:No growth | | | | | |No growth | | | | + + + + + + + + | Specimen | + + | Fluid | + + + + + + + | Performing | Address | City/State/Zipcode | Phone Number | | Organization | | | | + + + + + | [facility] - | [address] | [place] [address] | | | [place] | | | | + + + + + LAB REPORTS (09/02/2012 12:00 AM PST) + + + | Narrative | Performed At | + + + | | | | | | + + + + + | Procedure Note | + + | Other, Faculty - 09/15/2012 11:16 AM PST | + + SURGICAL PATHOLOGY (09/02/2012) + + + + + + | Component | Value | Ref Range | Performed | Pathologist | | | | | At | Signature | + + + + + + | SURGICAL | SOURCE OF SPECIMEN:A | | [facility] | | | PATHOLOGY | Synovium left knee, | | DEPARTMENT | | | | superior patellar pouch | | OF | | | | FSSOURCE OF SPECIMEN:B | | PATHOLOGY | | | | Specimen not rec'd in | | | | | | Surg. Path. Sent to | | | | | | other [facility] | | | | | | processing.SOURCE OF | | | | | | SPECIMEN:C Anterior horn | | | | | | medial meniscus tear | | | | | | Final Pathologic | | | | | | Diagnosis:A. Left knee | | | | | | synovium, superior | | | | | | patellar pouch, frozen | | | | | | section biopsy: | | | | | | - Dense | | | | | | fibroconnective tissue | | | | | | with no diagnostic | | | | | | abnormality - | | | | | | Negative for malignancy | | | | | | B. Specimen not | | | | | | received in surgical | | | | | | pathology C. | | | | | | Anterior horn medial | | | | | | meniscus tear, biopsy: | | | | | | - Synovium | | | | | | and fibroconnective | | | | | | tissue with no | | | | | | diagnostic abnormality | | | | | | - Negative for | | | | | | dysplasia Case | | | | | | seen by:Adriana Condon | | | | | | Thiago Maciel/Surgical | | | | | | Pathology Sandra Moise | | | | | | MD Jatin/Staff | | | | | | Pathologist | | | | | | Intraoperative Consult | | | | | | (Frozen Section) | | | | | | Diagnosis:Synovium left | | | | | | knee superior patellar | | | | | | pouch (specimen A): | | | | | | - Negative for acute | | | | | | inflammation | | | | | | Intraoperative Consult | | | | | | Diagnosis confirmed by: | | | | | | Kaushik Duong | | | | | | (ASCP)and Khushi Persaud | | | | | | Thiago Romero/Pathologist | | | | | | Clinical | | | | | | History:The patient is a | | | | | | 21-year-old female with | | | | | | osteomyelitis left | | | | | | proximal tibia,possible | | | | | | septic arthritis left | | | | | | knee. Gross | | | | | | Description:Received are | | | | | | 2 specimens fresh in | | | | | | containers labeled with | | | | | | the patient | | | | | | name(initials ) and: | | | | | | A: Synovium left | | | | | | knee superior patellar | | | | | | pouch: Received is a | | | | | | 0.4 x 0.2 x0.2-cm, soft, | | | | | | white-pink tissue. | | | | | | The entire specimen is | | | | | | used for frozensection | | | | | | diagnosis and is | | | | | | resubmitted in toto. | | | | | | B: No specimen | | | | | | C: Anterior horn | | | | | | medial meniscus: | | | | | | Received is a 0.1 x | | | | | | 0.1 x 0.1-cm, | | | | | | soft,pink-guerrero tissue. | | | | | | The entire specimen is | | | | | | submitted. | | | | | | Cassette Index:A: | | | | | | Synovium left knee | | | | | | superior patellar | | | | | | pouch:A1, frozen section | | | | | | residueB: No | | | | | | specimenC: Anterior | | | | | | horn medial | | | | | | meniscus:[id number]:tp | | | | | | My electronic signature | | | | | | indicates that I have | | | | | | personally reviewed | | | | | | alldiagnostic slides, | | | | | | the gross and/or | | | | | | microscopic portion of | | | | | | thisreport and | | | | | | formulated the final | | | | | | diagnosis. | | | | | | Rendering Diagnostician: | | | | | | Ameya Steiner | | | | | | MAyePathologistBrandoi | | | | | | julisa Signed 09/08/2012 | | | | | | 7:42PM | | | | + + + + + + + + | Specimen | + + | | + + + + + + + | Performing | Address | City/State/Zipcode | Phone Number | | Organization | | | | + + + + + | [facility] | [address] | [place] [address] | | | PATHOLOGY | [address] | | | + + + + + documented in this encounter Visit Diagnoses + + | Diagnosis | + + | Unspecified osteomyelitis, lower leg | + + | Aseptic necrosis of bone, site unspecified | + + | Pathologic fracture of tibia and fibula | + + | Pyogenic arthritis, lower leg (HCC) Pyogenic arthritis, lower leg | + + documented in this encounter Administered Medications + +--------+ +---------+------+-------+ | Medication Order | MAR | Action | Dose | Rate | Site | | | Action | Date | | | | + +--------+ +---------+------+-------+ | bacitracin ointment | Given | 09/02/19 | 1 strip | | Left | | INTRAPROCEDURE PRN, Starting Wed | | 13 4:10 | | | Knee | | 09/02/12 at 1610, Until Wed | | PM PST | | | | | 09/02/12 at 1750 | | | | | | + +--------+ +---------+------+-------+ +---+---+ | | | +---+---+ + +-------+ +-------+---+ + | tobramycin (aka NEBCIN) | Given | 09/02/19 | 1.2 g | | Surgical | | injection INTRAPROCEDURE PRN, | | 13 5:15 | | | Site | | Starting 09/02/12 at 1521, | | PM PST | | | | | Until 09/02/12 at 1750 | | | | | | + +-------+ +-------+---+ + +-------+ +-------+---+ + | Given | 09/02/19 | 1.2 g | | Surgical | | | 13 3:21 | | | Site | | | PM PST | | | | +-------+ +-------+---+ + +---+---+ | | | +---+---+ + +-------+ + +---+ + | vancomycin (aka VANCOCIN) IV | Given | 09/02/19 | 1,000 mg | | Surgical | | INTRAPROCEDURE PRN, Starting Wed | | 13 5:16 | | | Site | | 09/02/12 at 1522, Until Wed | | PM PST | | | | | 09/02/12 at 1750 | | | | | | + +-------+ + +---+ + +-------+ + +---+ + | Given | 09/02/19 | 1,000 mg | | Surgical | | | 13 3:22 | | | Site | | | PM PST | | | | +-------+ + +---+ + +---+---+ | | | +---+---+ documented in this encounter
--- OUTSIDE RECORDS SUMMARY | ~2019-05-28 | XMS | Encounter Summary ---
Demographics + + + | Address | [address] | | | [place] [address] | + + + | Home Phone | | + + + | Preferred Language | Unknown | + + + | Marital Status | Single | + + + | Latter Day Affiliation | LUT | + + + [...] [place] | | | | | [address] | | + + + + + Care Team Providers + +------+ + | Care Ve Teacher Name | Role | Phone | [...] region (HCC) | | | | at [facility] 3rd Floor | | | | | | [address] | | | | | | [place], | | | | | | [place] [address] | | | | | | [phone] | | | +--------+------+ + + + [...] [facility] | [address] | [place] [address] | | | SERVICES, CORE | JOY [...] - | | | | | | [place] | | + +-------+ + + + + + | Specimen | + + | Blood - Blood | + + + + + + + | Performing | Address | City/State/Zipcode | Phone Number | | Organization | | | | + + + + + | [facility] | [address] | [place] [address] | | | [facility] | | | | + + [...] | + + + + + | [facility] | [address] [facility] | [place] [address] | | | SERVICES, ELLIE | JOY [...] | | | LABORATORY | | | [place] | | | SERVICES, | | | [...] + + + + + | [facility] | [address] | [place] [address] | | | SERVICES, CORE | [address] | | | + + + + + documented in this encounter Visit Diagnoses + + | Diagnosis | + + | Osteomyelitis of knee region (HCC) Unspecified osteomyelitis, lower leg | + + documented in this encounter"
--- OUTSIDE RECORDS SUMMARY | ~2019-05-28 | XMS | Encounter Summary ---
Demographics + + + | Address | [address] | | | [place] [address] | + + + | Home Phone | | + + + | Preferred Language | Unknown | + + + | Marital Status | Single | + + + | Religion Affiliation | LUT | + + + | Race | White | + + + | Ethnic Group | Not or | + + + Author + + + | Author | [facility] | + + + | Organization | [facility] | + + + | Address | Unknown | + + + | Phone | Unavailable | + + + Support + + + + + | Name | Relationship | Address | Phone | + + + + + | Grisel Marc | ECON | [address] | | | | | [place] | | | | | [address] | | + + + + + Care Team Providers + +------+ + | Care Research Program Manager Name | Role | Phone [...] [place] | | | | | [address] | [address] | | | | | [place] | [phone] | | | | | [place] | | | | | | [address] | | | | | | [phone] | | | +--------+ + + + [...]
--- OUTSIDE RECORDS SUMMARY | ~2019-05-28 | XMS | Encounter Summary ---
Demographics + + + | Address | [address] | | | [place] [address] | + + + | Home Phone | | + + + | Preferred Language | Unknown | + + + | Marital Status | Single | + + + | Worship Affiliation | LUT | + + + | Race | White | + + + | Ethnic Group | Not or | + + + Author + + + | Author | [facility] | + + + | Organization | [facility] | + + + | Address | Unknown | + + + | Phone | Unavailable | + + + Support + + + + + | Name | Relationship | Address | Phone | + + + + + | Grisel Marc | FE | [address] | | | | | [place] | | | | | [address] | | + + + + + Care Team Providers + +------+ + | Care Civil Cadd Technician Name | Role | Phone | + +------+ + | Adilia Bob ADJUNCT TEACHER | PCP | | + +------+ + Reason for Referral Diagnostic Testing (Urgent) +--------+--------+ + + + + | Status | Reason | Specialty | Diagnoses / | Referred By | Referred To | | | | | Procedures | Contact | Contact | +--------+--------+ + + + + | Closed | | Radiology | Diagnoses | | Xxrad Vasc | | | | | Swelling of | Guyl, | [facility] [address] | | | | | joint of | [place] | [address] | | | | | upper arm | [address] | [address] | | | | | Encounter | [address] | [address] Mailcode: | | | | | for | [place] | [address] | | | | | long-term | [place], [place] | Physician's | | | | | (current) | [address] | Pavilion | | | | | use of | | [place], [place] | | | | | antibiotics | | [address] | | | | | Procedures | | Phone: | | | | | [facility] | | [phone] | | | | | UPPER EXT | | Fax: | | | | | PSEUDOANEUR | | [phone] | | | | | COMP LEFT | | | +--------+--------+ + + + + Reason for Visit + + + | Reason | Comments | + + + | Follow-up visit | | + + + Consultation (Routine) +--------+--------+ + + + + | Status | Reason | Specialty | Diagnoses / | Referred By | Referred To | | | | | Procedures | Contact | Contact | +--------+--------+ + + + + | Closed | | Infectious | Diagnoses | Mary, | Peck, | | | | Disease | 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 | | | | | (avascular | [address] | [address] | | | | | necrosis of | [facility] | [place] | | | | | bone) ([facility]) | Rd | [address] | | | | | Septic | [place], [place] | [place], | | | | | 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[address] | [place] [address] | | | | | knee, left | | Phone: | | | | | ([facility]) | | [phone] | | | | | Procedures | | Fax: | | | | | CONSULT TO | | [phone] | | | | | INFECTIOUS | | | | | | | DISEASE | | | +--------+--------+ + + + + Encounter Details +--------+---------+ + + + | Date | Type | Department | Care Team | Description | +--------+---------+ + + + | 09/29/ | Office | Infectious | Brigid Hardy | Swelling of joint of | | 2012 | Visit | Diseases at [facility] | [place] | upper arm (Primary | | | | Floor [address] | | Dx); Encounter for | | | | [address] | | long-term (current) | | | | Mailcode: L[address] | | use of antibiotics | | | | Physician's [place] | | | | | | [place], [place] | | | | | | [address] | | | | | | [phone] | | | +--------+---------+ + + + [...] + + + | Blood Pressure | 100/62 | 09/29/2012 9:06 AM | | | | | PST | | + + + + + | Pulse | 99 | 09/29/2012 9:06 AM | | | | | PST | | + + + + + | Temperature | 36.4 C (97.5 F) | 09/29/2012 9:06 AM | | | | | PST | | + + + + + | Respiratory Rate | - | - | | + + + + + | Oxygen Saturation | 99% | 09/29/2012 9:06 AM | | | | | PST | | + + + + + | Inhaled Oxygen | - | - | | | Concentration | | | | + + + + + | Weight | 70.8 kg (156 lb) | 09/29/2012 9:06 AM | | | | | PST | | + + + + + | Height | 170.2 cm (5' 7") | 09/29/2012 9:06 AM | | | | | PST | | + + + + + | Body Mass Index | 24.43 | 09/29/2012 9:06 AM | | | | | PST | | + + + + + documented in this encounter Progress Notes Brigid Antoine - 09/29/2012 9:40 AM PST INFECTIOUS DISEASES CLINIC FOLLOW UP Primary Care Physician: [facility] [address], [address] [place] [address] Ms. Marc presents to Infectious Diseases Clinic regarding scheduled follow up. The following history was obtained from review of patient records as compiled by myself geoff or to today's OPAT visit: History, other than "Interim History" below, is directly copied from previous ID notes to timmy mendoza continuity: This delightful 21-year-old young lady had a couple of weeks of knee pain in November 2011 and then was doing rodeo on her horse going around [employer], and she was leaning out away from [place]. Her legs spontaneously broke with pathological fracture. [...] she is otherwise well. She gives no his tory of excessive infections as a child, however, did have some sinus infections. She does h ave unprotected sex and uses an IUD for contraception but has apparently not been using cond oms. She had an HIV test which was negative. She was admitted for surgery and underwent the procedure below on 09/02/2012. She grew out G PC's on gram stain and in addition to ceftriaxone was started on Vancomycin with plans to de -escalate therapy once final culture data is obtained. Relevant [...] placement of antibiotic beads 09/03/2012: HIRAM Silva [facility] Operative Findings: We began by performing [...] and proximally from our cortical window. We theref ore used our flexible reamers to sequentially ream up proximally and distally down the intra medullary canal. We then used our canal automatic cigar wrapper tender to thoroughly washout the intramedullary c anal as well as our tibial wound. Once this had been completed, we proceeded to place antibi otic beads in the proximal tibial tunnel as well as somewhat down the intramedullary canal. These were antibiotic beads that were impregnated with 2 g of vancomycin as well as 2.5 g of tobramycin. At this time, we also gave 2 g of Rocephin, which had previously been held as i ndicated by Dr. Peck with Infectious Disease. Once we had placed the antibiotic beads, we proceeded to close our incision in a layered fashion using a 2-0 Vicryl stitch as well as 3- 0 nylon on the skin. The wound was dressed in the usual fashion with Xeroform, 4 x 4's, sterile Webril, an d an Horacio wrap. Surgical Pathology: pending Culture Data: CULTURE RESULT (no units) Date Value Range Status CULTURE RESULT (no units) Date Value Range [...] sinovium, left knee superior patellar pouch 09/02/2012 Final Value: C Fungus, Other Source: [...] left anterior horn, medial meniscus tear 09/02/2012 Final Value: C Fungus, Other Source: [...] left sinus tract, left proximal tibia 09/02/2012 Final Value: C Fungus, Other Source: [...] left retained calcium left tibia #7 09/02/2012 Final Value: C Fungus, Other Source: [...] left retained calcium left tibia #8 09/02/2012 Final Value: C Fungus, Other Source: [...] No fungus isolated at 3 weeks. 09/02/2012 Preliminary Value: C AFB Source: Tissue [...] 10) left medullary canal, left tibia 09/02/2012 Final Value: C Fungus, Other Source: [...] She was seen in the ER in [place] and had a CT Thor ax that [...] reports no difficulties with the PICC line. Interim History obtained 09/29/2012: Since her last visit, we have [...] been no fevers, chills, or night sweats. Current Medications: Current Outpatient Prescriptions Medication Sig [...] in place for > 5 years. Allergies: Amoxicillin; Latex; and Sulfa (sulfonamide antibiotics) Physical Exam: VS: Ht 170.2 cm (5' 7")( < 3 %ile), Wt 70.761 kg (156 lbs)( < 3 %ile), BP 100/62, Pulse 99, Temperature 36.4 C (97.5 F), Temperature source Forehead, SpO2 99%, BMI 24.43 kg/(m^2). The patient was sitting comfortably at rest. There was no evidence of jaundice. There was no stigmata of infectious endocarditis HEENT was normal There was no lymphadenopathy There was no new skin or oral lesions. Wound appears to be healing. There are steri-strips in situ. A 4 x 4 was removed that had some old brown drainage on it. There was a little oozi ng with manipulation. There are some excoriations around the knee where she's been scratchin g-no erythema or induration. Her arm looks less raw and is healing Neuro exam was grossly intact Diagnostic Tests: ESR (SED RATE) (no units) Date Value [...] VANCOTROUGH <0.2 09/14/12 VANCOTROUGH 8.9 09/04/12 Assessment: 730.26 Tibial osteomyelitis improving Itching-improving Left arm tenderness Recommendations/Plan: It is recommended that Ms. Marc follow up in Infectious Diseases Clinic in 2 weeks with Anirudh Peck. She had some mild tenderness of her left arm which was more likely from her healing skin. S he had a venous doppler of her arm which was negative. I've asked her to continue the Clinda mycin and increase to 300 mg po TID. I will be in touch with her in the next few days to kar ck in on how she is doing and to let her know the results of her ultrasound. I've suggested that she continue to use the hydroxyzine as needed for itching and that she could use hydroc ortisone cream locally. I am reluctant to put her on systemic steroids as I do not want to i nhibit healing and her symptoms are not widespread. If she truly cannot tolerate the increas ed dose of Clindamycin, we may need to switch again but I am concerned about creating a resi stant organism. I reviewed the side effects of Clindamycin. These include increased risk of C. difficile co litis. Signs of colitis are watery diarrhea, fevers, or abdominal pain. I reviwed the side effects of rash, nasusea and vomiting. I reviewed the fact that people may develop an linda rgy to antibiotics at any time, even 5 weeks into therapy and it is therefore important to report any new symptoms. I spent a total of 25 minutes face to face with the patient and over 50% was time spent in counseling in which we discussed infection, antibiotics, duration of therapy, lab results, a nd follow-up planning. Brigid Hardy PA-C [facility] Department of Infectious Diseases Outpatient IV Antibiotic Therapy Clinic (OPAT) [phone] Pager ID: [phone] [facility] Mail Code [address] [place] [address] documented in this encounter Plan of Treatment Not on filedocumented as of this encounter Procedures + +--------+ + + + | Procedure Name | Priori | Date/Time | Associated Diagnosis | Comments | | | ty | | | | + +--------+ + + + | VASC LAB VENOUS | Routin | 09/29/2012 | | Results for this | | DUPLEX UPPER | e | 10:29 AM | | procedure are in the | | EXTREMITY LT | | PST | | results section. | + +--------+ + + + documented in this encounter Results [facility] LAB VENOUS DUPLEX UPPER EXTREMITY LT (09/29/2012 10:29 AM PST) + + + + + + | Component | Value | Ref Range | Performed | Pathologist | | | | | At | Signature | + + + + + + | VASC LAB | UPPER EXTREMITY VENOUS | | | | | VENOUS | DUPLEX STUDY: 09/29/2012 | | | | | DUPLEX | Dictated 09/29/2012 | | | | | UPPER | FINDINGS: The deep and | | | | | EXTREMITY | superficial veins of | | | | | LEFT | the left upperextremity, | | | | | | left internal jugular | | | | | | vein, and right | | | | | | subclavian vein | | | | | | wereevaluated. No deep | | | | | | or superficial venous | | | | | | thrombosis was noted. | | | | | | IMPRESSION: Normal left | | | | | | upper extremity venous | | | | | | duplex exam. END | | | | | | IMPRESSION: Attending | | | | | | Radiologists: ,Author: | | | | | | ENDY BACA, | | | | | | M.D. I have personally | | | | | | viewed this | | | | | | procedure/exam, reviewed | | | | | | this report,and made | | | | | | changes to it where | | | | | | appropriate. | | | | | | Final/Electronically | | | | | | signed / Endy | | | | | | Tong Baca | | | | | | Preliminary / [place] | | | | | | [place] | | | | | | | [...] | Swelling of joint of upper arm - Primary Effusion of upper arm joint | + + | Encounter for long-term (current) use of antibiotics | + + documented in this encounter
--- OUTSIDE RECORDS SUMMARY | ~2019-05-28 | XMS | Encounter Summary ---
Demographics + + + | Address | [address] | | | [place] [address] | + + + | Home Phone | | + + + | Preferred Language | Unknown | + + + | Marital Status | Single | + + + | Yarsani Affiliation | LUT | + + + | Race | White | + + + | Ethnic Group | Not or | + + + Author + + + | Author | [facility] | + + + | Organization | [facility] | + + + | Address | Unknown | + + + | Phone | Unavailable | + + + Support + + + + + | Name | Relationship | Address | Phone | + + + + + | Grisel Marc | FE | [address] | | | | | [place] | | | | | [address] | | + + + + + Care Team Providers + +------+ + | Care Moisture Machine Tender Name | Role | Phone | + +------+ + | Adilia Bob CARPENTER ASSISTANT INSTALLER | PCP | | + +------+ + [...] | Mary, | | | | | Unspecified | Mars Lopez MD | MD Darrick | | | | | | [address] | [address] [facility] | | | | | osteomyeliti | Street | [facility] | | | | | s, lower leg | [address] | Rd [place], | | | | | L knee | [place], | [place] | | | | | | [place] [address] | [address] | | | | | | Phone: | | | | | | | [phone] | | | | | | | Fax: | | | | | | | [phone] | | +--------+--------+ + + + + Encounter Details +--------+---------+ + + + | Date | Type | Department | Care Team | Description | +--------+---------+ + + + | 12/08/ | Office | Orthopaedics at | Darrick Buitrago MD | Quadriceps | | 2012 | Visit | [facility] [address] [facility] | | tendonitis (Primary | | | | [facility] [address] | | Dx); Achilles | | | | Mailcode: [id number] | | tendonitis; | | | | [facility] | | Osteomyelitis of | | | | [place], [place] | | knee region (HCC); | | | | [address] | | Septic 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| | | [phone] | | knee, left ([facility]) | +--------+---------+ + + + Social [...] + + + | Blood Pressure | 114/69 | 12/08/2012 8:00 AM | | | | | PDT | | + + + + + | Pulse | 84 | 12/08/2012 8:00 AM | | | [...] Weight | 70.8 kg (156 lb) | 12/08/2012 8:00 AM | | | | | PDT | | + + + + + | Height | 170.2 cm (5' 7") | 12/08/2012 8:00 AM | | | | | PDT | | + + + + + | Body Mass Index | 24.43 | 12/08/2012 8:00 AM | | | | | PDT | | + + + + + documented in this encounter Progress Notes Darrick Buitrago MD - 12/08/2012 9:38 AM PDT Sandy Marc is a 22 y.o. female who has Pathologic fracture of tibia or fibula, Os teomyelitis of knee region, AVN (avascular necrosis of bone), Septic arthritis of knee, left , Asthma, and Encounter for long-term (current) use of antibiotics on her problem list. ~ 3 months (09/02/12) status post left knee aspiration for culture, arthroscopy with partial medi al meniscectomy and medial tibial plateau chondroplasty as well as I&D (including removal of retained CaPO4 bone cement and canal reaming) and placement of CaSO4 antibiotic beads into the left tibia. She states that she is progressing well and partially compliant with clindamycin, she maria g nues to be followed by Dr. Peck in [place] who is seeing her in clinic today with me. She has been compliant with full weightbearing often without crutches and is out of the brace. She h as been following instructions and denies interval injury. Two weeks ago she was doing great with out a brace of crutches, and even returned to horseback riding. However in the last w mashpee and a half she has developed some anterior distal thigh and posterior heel pain with cricket ght bearing. She has some clicking inn her knee but no locking and pain when her physical therapist pushes her past 102 degrees. She is also doing pool therapy. Sandy denies fever, chills, weakness, chest pain, shortness of breath or drainage since he r last visit. Pain Meds: No medications of specified category on file She is not taking any medications f or pain. She has not yet returned to work. PHYSICAL EXAM: Patient is alert and oriented times three in no apparent distress. BP 114/69 | Pulse 84 | Temp (Src) 36.1 C (97 F) (Oral) | Ht 1.702 m (5' 7") | Wt 70.761 kg (156 lb) | BMI 24.43 kg/(m^2) Patient reports a pain level of 3 today. Knee Range of Motion: Flexion Left 5-120* * = painful Straight leg test negative. Able to bear weight on left leg without pain. Tender at quad t endon insertion into patella, Achilles and posterior tibial tendon with out swelling. Pain with resisted plantarflexion especially with hindfoot in varus. Also tender at proximal tib ia and medial joint lie but no click with Sotero's. Scar healed but adherent without drainage. No erythema, cellulitis or lymphangitis. Sensation intact to light touch medial, lateral, plantar, dorsal and 1st web space of left leg, but decreased sensation of the lateral leg. Fires left ankle dorsiflexors, plantarfle xors, quads & hamstrings. Left leg pink and warm with 2 seconds capillary refill. Palpable dorsalis pedis and edging catcher ior tibial pulses. X-RAYS: Reviewed x-rays with patient and family. Shows antibiotic beads resorbed in the ti ibis, with progressive new intraosseous bone growth. No new acute fractures or lytic lesions . LABS: Recent Labs Basename 09/21/12 0930 09/14/12 [...] and possible septic arthritis (micrococcus) left knee. Secondary quadriceps, Achilles and posterior tibial tendonitis. PLAN: Return in about 3 months (around 03/09/2013). with weight bearing 4 view left knee x- rays as well as repeat AP & lateral left tibia x-rays. OK to advance weight bearing, titrat e activities as tolerated by tendonitis symptoms. Continue working with physical therapy t o increase joint range of motion. Continue taking vitamin D and calcium supplement for life . She may be resume horseback riding when she is full weight bearing without pain. Call cl in with further questions or concerns. I discussed her case with Dr. Peck who plans to c hange her to A 2x/day antibiotics given compliance and sensitivities issues considering the extensiveness of her infection. DARRICK BUITRAGO MD [facility] [address] [place] [address] Mailcode: [id number] [place] [phone] documented in this en counter Plan of Treatment Not on filedocumented as of this encounter Visit Diagnoses + + | Diagnosis | + + | Quadriceps tendonitis - Primary Other synovitis and tenosynovitis | + + | Achilles tendonitis Achilles bursitis or tendinitis | + + | Osteomyelitis of knee region (HCC) Unspecified osteomyelitis, lower leg | + + | Septic arthritis of knee, left (HCC) Pyogenic arthritis, lower leg | + + documented in this encounter
--- OUTSIDE RECORDS SUMMARY | ~2019-05-28 | XMS | Encounter Summary ---
Demographics + + + | Address | [address] | | | [place] [address] | + + + | Home Phone [...] + + | Author | [facility] | + + + | Organization | [facility] | + + + | Address | Unknown | + + + | Phone | Unavailable | + + + Support + + + + + | Name | Relationship | Address | Phone | + + + + + | Grisel Marc | FE | [address] | | | | | [place] | | | | | [address] | | + + + + + Care Team Providers + +------+ + | Care Customer Care Voice Consultant Name | Role | Phone | + +------+ + | Adilia Bob AIRCRAFT ENGINEER | PCP | | + +------+ + Encounter Details +--------+ + + + + | Date | Type | Department | Care Team | Description | +--------+ + + + + | 03/10/ | Incoming Freight Clerk | Orthopaedics at | Alton Hernandez MD | Osteomyelitis of | | 2012 | | [facility] [address] | | knee region (HCC) | | | | [address] | | (Primary Dx); | | | | Mailcode: [id number] | | Pathologic fracture | | | | [facility] | | of tibia or fibula | | | | [place], [place] | | | | | | [address] | | | | | | [phone] | | | +--------+ + + + [...] X-RAY TIBIA & FIBULA 2 VIEWS LT (03/11/2013 1:31 PM PDT) + + + + + + | Component | Value | Ref Range | Performed | Pathologist | | | | | At | Signature | + + + + + + | TIBIA AND | STUDY: TIBIA AND FIBULA | | | | | FIBULA 2 | 2 VIEWS LT 03/11/13 | | | | | VIEWS LT | 13:31:00 AND KNEE 4 | | | | | | VIEWS HISTORY: Knee | | | [...] | | + +---------+ + + | [facility] DEPARTMENT OF | | | | | RADIOLOGY | | | | + +---------+ + + X-RAY KNEE 4 VIEWS LEFT 2 VIEWS [...] YUNG, | | | | | | KAYLAuthor: МАРИЯ | | | | | | [...] Final/Electronically | | | | | | sergey / ALYSSA | | | | | [...]
--- OUTSIDE RECORDS SUMMARY | ~2019-05-28 | XMS | Encounter Summary ---
Demographics + + + | Address | [address] | | | [place] [address] | + + + | Home Phone [...] Author + + + | Author | [facility] | + + + | Organization | [facility] | + + + | Address | Unknown | + + + | Phone | Unavailable | + + + Support + + + + + | Name | Relationship | Address | Phone | + + + + + | Grisel Marc | FE | [address] | | | | | [place] | | | | | [address] | | + + + + + Care Team Providers + +------+ + | Care Ux Design Manager Name | Role | Phone | + +------+ + | No Pcp Per Patient | PCP | Unavailable | + +------+ + Encounter Details +--------+ + + + + | Date | Type | Department | Care Team | Description | +--------+ + + + + | 07/21/ | Injection Molding Engineer | Orthopaedics at | Alton Hernandez MD | Leg pain (Primary | | 2011 | | [facility] [address] | | Dx) | | | | [address] | | | | | | Mailcode: [id number] | | | | | | [facility] | | | | | | [place], [place] | | | | | | [address] | | | | | | [phone] | | | +--------+ + + + + Social History + +-------+ +--------+------+ | Tobacco Use | Types | Packs/Day | Years | Date | | | | | Used | | + +-------+ +--------+------+ | Never Assessed | | | | | + +-------+ +--------+------+ + + + | Sex Assigned at [...] Diagnosis | + + | Leg pain - Primary Pain in limb | + + documented in this encounter"
--- OUTSIDE RECORDS SUMMARY | ~2019-05-28 | XMS | Encounter Summary ---
Demographics + + + | Address | [address] | | | [place] [address] | + + + | Home Phone [...] [place] | | | | | [address] | | + + + + + Care Team Providers + +------+ + | Care Film And Video Editor Name | Role | Phone | + [...] [facility] | | | | | | [address] | | | | | | [place] Mailcode: | | | | | | [id number] [facility] | | | | | | [place], | | | | | | [place] [address] | | | | | | [phone] | | | +--------+ + + + [...]
--- OUTSIDE RECORDS SUMMARY | ~2019-05-28 | XMS | Encounter Summary ---
Demographics + + + | Address | [address] | | | [place] [address] | + + + | Home Phone | | + + + | Preferred Language | Unknown | + + + | Marital Status | Single | + + + | Congregation Affiliation | LUT | + + + | Race | White | + + + | Ethnic Group | Not or | + + + Author + + + | Author | [facility] | + + + | Organization | [facility] | + + + | Address | Unknown | + + + | Phone | Unavailable | + + + Support + + + + + | Name | Relationship | Address | Phone | + + + + + | Grisel Marc | FE | [address] | | | | | [place] | | | | | [address] | | + + + + + Care Team Providers + +------+ + | Care Helmet Hat Brim Cutter Name | Role | Phone | + +------+ + | Adilia Bob MILITARY TECHNOLOGY MANAGER | PCP | | + +------+ + Reason for Visit AUTH/CERT +--------+--------+ + + + + | Status | Reason | Specialty | Diagnoses / | Referred By | Referred To | | | | | Procedures | Contact | Contact | +--------+--------+ + + + + | Closed | | | | | | +--------+--------+ + + + + Encounter Details +--------+ + + + + | Date | Type | Department | Care Team | Description | +--------+ + + + + | 09/02/ | Anesthesia | 6A Intra Op [facility] | Shakila Burgos MD | | | 2012 | Event | [facility] | [address] [facility] | | | | | Admitting Desk | [address] | | | | | Located on the 9 | [place], [place] | | | | | floor [address] [facility] | [address] | | | | | [facility] | [phone] | | | | | [place], [place] | | | | | | [address] | Viktoriya Jennings MD | | | | | | [address] [facility] | | | | | | [place], | | | | | | [place] [address] | | | | | | [phone] | | | | | | | | +--------+ + + + + Anesthesia Record + + + + + | Procedure Name | Responsible | Anesthesia Start | Anesthesia Stop Time | | | Anesthesiologist | Time | | + + + + + | IRRIGATION AND | Shakila Burgos MD | 09/02/12 1407 | 09/02/12 4006 | | DEBRIDEMENT OF LEFT | | [...] | Meds | +------+ + + + | Name | Total | + + + | midazolam | 2 mg | + + + | propofol | 190 mg | + + + | lidocaine 2% | 60 mg | + + + | fentaNYL | 250 mcg | + + + | HYDROmorphone | 1 mg | + + + | cefTRIAXone | 1 g | + + + | ondansetron | 4 mg | + + + | acetaminophen IV | 1,000 mg | + + + | LR | 1,500 mL | + + + + + | Name | + + | Insp Sevo | + + | Et Sevo | + + | EtN2O % | + + | Insp N2O % | + + | O2 Flow Rate (Total Liters) | + + + + | No blood administrations on file. | + + +--------+ + + + | Type | Details | Placement | Removal | +--------+ + + + | RETIRE | 09/02/12; 1119; 09/03/12; 1934; | 09/02/121119 by | 09/03/121934 by | | D - | No; 22; Left; Hand; Lidocaine; | Cristopher Covarrubias RN | Pilar Dawkins RN | | Periph | No; Positive | | | | eral | | | | | Line | | | | +--------+ + + + | RETIRE | 09/02/12; 141; 09/03/12; 1934; | 09/02/12 141 by | 09/03/121934 by [...] Diagnoses Not on filedocumented in this encounter Administered Medications + +--------+ + +------+------+ | Medication Order | MAR | Action | Dose | Rate | Site | | | Action | Date | | | | + +--------+ + +------+------+ | acetaminophen (aka OFIRMEV) IV | Given | 09/02/19 | 1,000 mg | | | | INTRAPROCEDURE PRN, Starting Wed | | 13 5:29 | | | | | 09/02/12 at 1729, Until Wed | | PM PST | | | | | 09/02/12 at 1749 | | | | | | + +--------+ + +------+------+ +---+---+ | | | +---+---+ + +-------+ +-----+---+---+ | cefTRIAXone (aka ROCEPHIN) | Given | 09/02/19 | 1 g | | | | injection INTRAPROCEDURE PRN, | | 13 4:57 | | | | | Starting 09/02/12 at 1657, | | PM PST | | | | | Until Fri09/02/12 at 1749 | | | | | | + +-------+ +-----+---+---+ +---+---+ | | | +---+---+ + +-------+ +--------+---+---+ | fentaNYL citrate (PF) (aka | Given | 09/02/19 | 50 mcg | | | | SUBLIMAZE) injection | | 13 3:07 | | | | | INTRAPROCEDURE PRN, Starting Wed | | PM PST | | | | | 09/02/12 at 1415, Until Wed | | | | | | | 09/02/12 at 1749, sedation | | | | | | + +-------+ +--------+---+---+ +-------+ +--------+---+---+ | Given | 09/02/19 | 50 mcg | | | | | 13 3:04 | | | | | | PM PST | | | | +-------+ +--------+---+---+ | Given | 09/02/19 | 50 mcg | | | | | 13 3:00 | | | | | | PM PST | | | | +-------+ +--------+---+---+ +---+---+ | | | +---+---+ + +-------+ +--------+---+---+ | HYDROmorphone (cinthyaa DILAUDID) | Given | 09/02/19 | 0.2 mg | | | | injection INTRAPROCEDURE PRN, | | 13 5:46 | | | | | Starting Fri09/02/12 at 1531, | | PM PST | | | | | Until Fri09/02/12 at 1749, | | | | | | | sedation | | | | | | + +-------+ +--------+---+---+ +-------+ +--------+---+---+ | Given | 09/02/19 | 0.2 mg | | | | | 13 5:13 | | | | | | PM PST | | | | +-------+ +--------+---+---+ | Given | 09/02/19 | 0.2 mg | | | | | 13 5:00 | | | | | | PM PST | | | | +-------+ +--------+---+---+ +---+---+ | | | +---+---+ + + + +----+---+---+ | lactated ringers IV | given by | 09/02/19 | mL | | | | INTRAPROCEDURE CONTINUOUS PRN, | | 13 5:37 | | | | | Starting Fri09/02/12 at 1407, | anesthes | PM PST | | | | | Until Fri09/02/12 at 1749 | iology | | | | | + + + +----+---+---+ +---------+ +----+---+---+ | New Bag | 09/02/19 | mL | | | | | 13 4:03 | | | | | | PM PST | | | | +---------+ +----+---+---+ | New Bag | 09/02/19 | mL | | | | | 13 2:07 | | | | | | PM PST | | | | +---------+ +----+---+---+ +---+---+ | | | +---+---+ + +-------+ +-------+---+---+ | lidocaine (aka XYLOCAINE MPF) | Given | 09/02/19 | 60 mg | | | | 20 mg/mL (2 %) injection | | 13 2:17 | | | | | INTRAPROCEDURE PRN, Starting Wed | | PM PST | | | | | 09/02/12 at 1417, Until Wed | | | | | | | 09/02/12 at 1749 | | | | | | + +-------+ +-------+---+---+ +---+---+ | | | +---+---+ + +-------+ +------+---+---+ | midazolam (aka VERSED) | Given | 09/02/19 | 2 mg | | | | injection INTRAPROCEDURE PRN, | | 13 2:05 | | | | | Starting Fri09/02/12 at 1405, | | PM PST | | | | | Until Fri09/02/12 at 1749, | | | | | | | sedation | | | | | | + +-------+ +------+---+---+ +---+---+ | | | +---+---+ + +-------+ +------+---+---+ | ondansetron (aka ZOAN) | Given | 09/02/19 | 4 mg | | | | injection INTRAPROCEDURE PRN, | | 13 5:26 | | | | | Starting Fri09/02/12 at 1726, | | PM PST | | | | | Until Fri09/02/12 at 1749 | | | | | | + +-------+ +------+---+---+ +---+---+ | | | +---+---+ + +-------+ +-------+---+---+ | propofol INTRAPROCEDURE PRN, | Given | 09/02/19 | 40 mg | | | | Starting 09/02/12 at 1419, | | 13 3:01 | | | | | Until 09/02/12 at 1749 | | PM PST | | | | + +-------+ +-------+---+---+ +-------+ +--------+---+---+ | Given | 09/02/19 | 150 mg | | | | | 13 2:19 | | | | | | PM PST | | | | +-------+ +--------+---+---+ +---+---+ | | | +---+---+ documented in this encounter"
--- OUTSIDE RECORDS SUMMARY | ~2019-05-28 | XMS | Encounter Summary ---
Demographics + + + | Address | [address] | | | [place] [address] | + + + | Home Phone [...] [place] | | | | | [address] | | + + + + + Care Team Providers + +------+ + | Care Carpet Sewer Name | Role | Phone | + +------+ + | Adilia Bob KEY MAKER | PCP | | + +------+ + Reason for Visit Diagnostic Testing (Routine) +--------+--------+ + + + + | Status | Reason | Specialty | Diagnoses / | Referred By | Referred To | | | | | Procedures | Contact | Contact | +--------+--------+ + + + + | Closed | | Radiology | Diagnoses | Brittani | [facility] | | | | | | MD David | [address] | | | | | Osteomyeliti | [address] | [address] | | | | | s of knee | [address] | [address] | | | | | region (HCC) | Rd | Mailcode: | | | | | Procedures | [place], [place] | [address] | | | | | MRI KNEE | [address] | [place] | | | | | LT WWO CONT | Phone: | Research | | | | | | [phone] | [address] | | | | | | Fax: | [place], [place] | | | | | | [phone] | [address] | | | | | | | Phone: | | | | | | | [phone] | | | | | | | Fax: | | | | | | | [phone] | +--------+--------+ + + + + Encounter Details +--------+ + + + + | Date | Type | Department | Care Team | Description | +--------+ + + + + | 08/24/ | Hospital | Diagnostic Imaging | | | | 2012 | Encounter | Services at [facility] | | | | | | [address] | | | | | | [place] Mailcode: | | | | | | [address] [place] | | | | | | [facility] | | | | | | [place], [place] | | | | | | [address] | | | | | | [phone] | | | +--------+ + + + [...] | + +--------+ + + + | MRI KNEE LT WWO CONT | Routin | 08/24/2012 | Osteomyelitis of | Results for this | | | e | 6:16 PM | knee region (HCC) | procedure [...] subchondral | | | | | | [id number] hyperintensity | | | | | | [...] | | | | | | Geovanni Sravan | | | | | | 08/25/2012 [...]
--- OUTSIDE RECORDS SUMMARY | ~2019-05-28 | XMS | Encounter Summary ---
Demographics + + + | Address | [address] | | | [place] [address] | + + + | Home Phone | | + + + | Preferred Language | Unknown | + + + | Marital Status | Single | + + + | Buddhism Affiliation | LUT | + + + [...] [place] | | | | | [address] | | + + + + + Care Team Providers + +------+ + | Care Horticultural Nursery Assistant Name | Role | Phone | + +------+ + | Adilia Bob MANAGER ASSISTED LIVING | PCP | | + +------+ + Encounter Details +--------+ + + + + | Date | Type | Department | Care Team | Description | +--------+ + + + + | 12/08/ | Fiberglass Laminator | Infectious | Lavinia Peck, | Osteomyelitis of | | 2012 | | Diseases at [facility] 3rd | MD [address] | knee region (HCC) | | | | Floor [address] [facility] | [address] | (Primary Dx) | | | | [address] | [place] [address] | | | | | Mailcode: [id number] | [phone] | | | | | [facility] | | | | | | [place], [place] | | | | | | [address] | | | | | | [phone] | | | +--------+ + + + [...]
--- OUTSIDE RECORDS SUMMARY | ~2019-05-28 | XMS | Encounter Summary ---
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 | | | | | (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[place] | | | | | bone) ([facility]) | Rd | [address] | | | | | Septic | [place], [place] | [place], | | | | | 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[address] | [place] [address] | | | | | knee, left | | Phone: | | | | | ([facility]) | | [phone] | | | | | Procedures | | Fax: | | | | | CONSULT TO | | [phone] | | | | | INFECTIOUS | | | | | | | DISEASE | | | +--------+--------+ + + + + Encounter Details +--------+---------+ + + + | Date | Type | Department | Care Team | Description | +--------+---------+ + + + | 09/17/ | Office | Infectious | Brigid Hardy | Osteomyelitis of | | 2012 | Visit | [facility] | [place] | knee region (HCC) | | | | Floor [address] | | (Primary Dx); | | | | [address] | | Encounter for | | | | Mailcode: [id number] | | long-term (current) | | | | [facility] | | use of antibiotics | | | | [place], [place] | | | | | | [address] | | | | | | [phone] | | | +--------+---------+ + + + [...] this encounter Progress Notes Brigid Antoine - 09/17/2012 3:02 PM PST INFECTIOUS DISEASES CLINIC FOLLOW UP Primary Care Physician: [facility] [address], [address] [place] [address] Ms. Marc presents to Infectious Diseases Clinic regarding scheduled follow up. The patien t was seen in conjunction with Dr. Hernandez. The following history was obtained from review of patient records as compiled by myself geoff or to today's OPAT visit: History, other than "Interim History" below, is directly copied from previous ID notes to timmy mendoza continuity: This delightful 21-year-old young lady had a couple of weeks of knee pain in November 2011 and then was doing rodeo on her horse going around [employer] and she was leaning out away from t [employer]. Her legs spontaneously broke with pathological fracture. She had a tibial plate au fracture. This was mended with a screw and cement. However, the wounds then never heale d and drained. She has subsequently had surgery. She had the first surgery on December 09January 09, and then April 14 was the last one. Apparently, group B strep and MSSA have grown out of it in the past, but we will need to confirm this. Since that time intermittently spits out pieces of calcium. She has no systemic symptoms of this. No fevers, chills, or sweats, and she is otherwise well. She gives no hi story of excessive infections as a child, however, did have some sinus infections. She does have unprotected sex and uses an IUD for contraception but has apparently not been using co ndoms. She had an HIV test which was [...] tibial bone cement. Irregular proximal medial tibial brando ne marrow T2 signal abnormality and enhancement are stable, likely representing a combinatio n of sequela from prior fracture and surgery with superimposed chronic/treated osteomyelitis . No evidence for progression is seen when compared to the prior study. There is no new os seous or joint centered destruction and no soft tissue abscess. Decreased left knee synoviti s. Near complete resolution of previously seen curvilinear lateral femoral condyle bone coretta ow edema, most likely representing healing subchondral fracture. Procedure Date and Type: 09/02/2012: 1. Aspiration left knee for culture. 2. Arthroscopic synovial biopsy left knee with anterior horn partial medial menisectomy and medial tibial plateau chondroplasty. 3. I &D left tibia including reaming of intramedullary canal, placement of antibiotic beads 09/03/2012: HIRAM Silva [facility] Operative Findings: We began by performing a diagnostic arthroscopy of the left knee. We made a lateral poke h ole incision to allow our scope to pass through into the joint and performed our diagnostic arthroscopy. There were no gross findings of purulence in the joint. There was, however, g rossly inflamed synovium present in the suprapatellar pouch as well as the medial and latera l gutter of the knee. There was a partial tear of the anterior horn of the lateral meniscus , which also appeared to have some inflamed synovium around it. We performed a debridement and biopsy of the inflamed synovium and sent for pathology. We also proceeded to perform a partial debridement of the meniscus in this area. We then closed the incisions from the knee arthroscopy and turned our attention to the tibi a. We made an elliptical incision to excise the previous draining sinus tract on the anteri or proximal leg. We subsequently made a cortical window that we pinpointed using fluoroscop y over the previous site that had been opened to pass the calcium phosphate cement. We then proceeded to cure out the previous tibial tunnel that had been used to tamp up the tibial p lateau with calcium phosphate cement. We used rongeurs and curettes to thoroughly debride t his tibial tunnel as it track proximally toward the plateau. A large amount of calcium phos phate cement was removed in this fashion and several specimens were sent for culture and one to Pathology. We also found that deeper in our tibial tunnel, there was fluid draining fro m the intramedullary canal and so we therefore entered the intramedullary canal and found a large amount of turbid fluid present, which was again sent to culture. As the calcium phosp hate cement and the draining tract appear to communicate with the intramedullary canal, we decided at this time that we needed to perform a thorough reaming of the intramedullary canal both distally and proximally from our cortical window. We there fore used our flexible reamers to sequentially ream up proximally and distally down the intr amedullary canal. We then used our canal contact lens polisher to thoroughly washout the intramedullary canal as well as our tibial wound. Once this had been completed, we proceeded to place anti biotic beads in the proximal tibial tunnel as well as somewhat down the intramedullary canal . These were antibiotic beads that were impregnated with 2 g of vancomycin as well as 2.5 g of tobramycin. At this time, we also gave 2 g of Rocephin, which had previously been held as indicated by Dr. Peck with Infectious Disease. Once we had placed the antibiotic beads, we proceeded to close our incision in a layered fashion using a 2-0 Vicryl stitch as well a s 3-0 nylon on the skin. The wound was dressed in the usual fashion with Xeroform, 4 x 4's, sterile Webril, a nd an Horacio wrap. Surgical Pathology: pending Culture Data: CULTURE RESULT (no units) Date Value Range Status 09/02/2012 Preliminary Value: C TissueSource: Tissue Gram StainGRAM STAIN:No squamous epithelial cells No PMNS No organisms seen. 09/02/2012 Preliminary Value: C AFBSource: Tissue SMEAR:AFB not detected source: left sinovium, left knee superior patellar pouch 09/02/2012 Preliminary Value: C Fungus, OtherSource: Tissue SMEAR:No fungal elements seen 09/02/2012 Preliminary Value: C TissueSource: Tissue Gram StainGRAM STAIN:No squamous epithelial cells No PMNS No organisms seen. 09/02/2012 Preliminary Value: C AFBSource: Tissue SMEAR:AFB not detected source: 2) left anterio r horn, medial meniscus tear 09/02/2012 Preliminary Value: C Fungus, OtherSource: Tissue SMEAR:No fungal elements seen 09/02/2012 Preliminary Value: C TissueSource: Tissue Gram StainGRAM STAIN:No squamous epithelial cells Rare PMNS No organisms seen. 09/02/2012 Preliminary Value: C AFBSource: Sputum SMEAR:AFB not detected source: 3) left sinus t ract, left proximal tibia 09/02/2012 Preliminary Value: C Fungus, OtherSource: Tissue SMEAR:No fungal elements seen 09/02/2012 Preliminary Value: C TissueSource: Tissue Gram StainGRAM STAIN:No squamous epithelial cells No PMNS Rare Gram positive cocci . 09/02/2012 Preliminary Value: C AFBSource: Tissue SMEAR:AFB not detected source: left retained c alcium left tibia #4 09/02/2012 Preliminary Value: C Fungus, OtherSource: Tissue SMEAR:No fungal elements seen 09/02/2012 Preliminary Value: C TissueSource: Tissue Gram StainGRAM STAIN:No squamous epithelial cells Rare PMNS Rare Gram positive cocci . 09/02/2012 Preliminary Value: C AFBSource: Tissue SMEAR:AFB not detected source: left retained c alcium left tibia #5 09/02/2012 Preliminary Value: C Fungus, OtherSource: Tissue SMEAR:No fungal elements seen 09/02/2012 Preliminary Value: C TissueSource: Tissue Gram StainGRAM STAIN:No squamous epithelial cells Rare PMNS No organisms seen. 09/02/2012 Preliminary Value: C AFBSource: Tissue SMEAR:AFB not detected source: left retained c alcium left tibia #6 09/02/2012 Preliminary Value: C Fungus, OtherSource: Tissue SMEAR:No fungal elements seen 09/02/2012 Preliminary Value: C TissueSource: Tissue Gram StainGRAM STAIN:No squamous epithelial cells Rare PMNS No organisms seen. 09/02/2012 Preliminary Value: C AFBSource: Tissue SMEAR:AFB not detected source: left retained c alcium left tibia #7 09/02/2012 Preliminary Value: C Fungus, OtherSource: Tissue SMEAR:No fungal elements seen 09/02/2012 Preliminary Value: C TissueSource: Tissue Gram StainGRAM STAIN:No squamous epithelial cells No PMNS No organisms seen. 09/02/2012 Preliminary Value: C AFBSource: Tissue SMEAR:AFB not detected source: left retained c alcium left tibia #8 09/02/2012 Preliminary Value: C Fungus, OtherSource: Tissue SMEAR:No fungal elements seen 09/02/2012 Preliminary Value: C TissueSource: Tissue Gram StainGRAM STAIN:No squamous epithelial cells No PMNS No organisms seen. 09/02/2012 Preliminary Value: C Fungus, OtherSource: Tissue SMEAR:No fungal elements seen 09/02/2012 Preliminary Value: C AFBSource: Tissue SMEAR:AFB not detected source: left retained c alcium left tibia #9 09/02/2012 Preliminary Value: C TissueSource: Tissue Gram StainGRAM STAIN:No squamous epithelial cells No PMNS No organisms seen. 09/02/2012 Preliminary Value: C AFBSource: Tissue SMEAR:AFB not detected source: 10) left medull david canal, left tibia 09/02/2012 Preliminary Value: C Fungus, OtherSource: Tissue SMEAR:No fungal elements seen Interim History obtained 09/17/2012: Sandy presents for her scheduled follow up. She has been doing well. She was switched from Vanco to Dapto two weeks ago because of a concern that she was having side effects like kar st discomfort and shortness of breath. She was seen in the ER in [place] and had a CT Thor ax that [...] reports no difficulties with the PICC line. Current Medications: Current Outpatient Prescriptions Medication Sig acetaminophen (TYLENOL) 325 mg Oral tablet Take 325 mg by mouth every four hours as nee ded. albuterol 90 mcg/actuation Inhalation HFA Aerosol Inhaler Inhale 1-2 Puffs every four h ours as needed. aspirin 325 mg Oral tablet Take 1 Tab by mouth two times daily. DAPTOmycin 500 mg Intravenous Recon Soln Inject into the vein (IV). levonorgestrel (MIRENA) 20 mcg/24 hr Intrauterine IUD 1 Each by Intrauterine route once . May be removed and replaced with a new unit at anytime during menstrual cycle; do not leav e any one system in place for > 5 years. senna-docusate 8.6-50 mg Oral tablet Take 1 Tab by mouth two times daily. Allergies: Amoxicillin and Sulfa (sulfonamide antibiotics) Physical Exam: VS: There were no vitals taken for this visit. The patient was sitting comfortably at rest. There was no evidence of jaundice. There was no stigmata of infectious endocarditis HEENT was normal There was no lymphadenopathy There was no new skin or oral lesions. Wound appears to be healing well. The area of separa tion as described above. She has several areas of linear excoriation on her left leg. The si te of her PICC dressing looks a little raw but no evidence of infection, erythema, induratio n or tenderness. Neuro exam was grossly intact Diagnostic Tests: ESR (SED RATE) (no units) Date Value 09/14/2012 40 SEDIMENTATION RATE (mm/hr) Date Value 08/06/2012 14 C-REACTIVE PROTEIN (mg/dl) Date Value 09/14/2012 3.2 Lab Results Component Value Date WBC 9 09/14/2012 RBC 3.4 09/14/2012 HB 9.8* 09/14/2012 HCT 30.2 09/14/2012 MCV 88.2 09/14/2012 MCHC 32.3 09/14/2012 RDW 14.4 09/14/2012 PLT 427 09/14/2012 NEUTROPERC 52.3 09/14/2012 LYMPHPERC 31.4 09/14/2012 MONOPERC 7.9 09/14/2012 EOSPERC 7.2 09/14/2012 BASOPERC 1.3 09/14/2012 NEUTROPHILCO 4.7 09/14/2012 MONOCYTECO 0.7 09/14/2012 EOSCO 0.6 09/14/2012 BASOPHILCO 0.1 09/14/2012 Lab Results Component Value Date NA 140 09/14/2012 K 3.5 09/14/2012 CL 108 09/14/2012 BICARB 24 09/14/2012 BUN 15 09/14/2012 CR 0.69 09/14/2012 GLU 96 09/14/2012 CA 9 09/14/2012 AST 16 09/14/2012 ALT 14 09/14/2012 AP 62 09/14/2012 TBILI 0.3 09/14/2012 TP 6.7 09/14/2012 ALB 3.7 09/14/2012 Lab Results Lab Test Name Results Date/Time VANCOTROUGH <0.2 09/14/12 VANCOTROUGH 8.9 09/04/12 Assessment: Tibial osteomyelitis 730.26 Improving Recommendations/Plan: It is recommended that Ms. Marc follow up in Infectious Diseases Clinic in 2 weeks. I'm c oncerned that she may be developing a drug fever from the Daptomycin. I am going to discuss this with Dr. Peck and consider possibly switch to orals. Sandy is a little over two week s into her six weeks of antibiotic therapy. Her skin is pretty excoriated at her PICC site. I've suggested benadryl for her itching. It does not cross the midline and she has no other wide spread rash. I reviewed the possible complications PICC lines [...] clot needs urgent attention. I asked the pa tietha to report any of these symptoms immediately, and if unable to obtain the IV company or OPAT, then to present to the ED. The patient verbalized understanding. I reviewed the side effects of Daptomycin. This includes risk of muscle inflammation and re nal failure. I therefore asked the patient to report any new muscle aches and to watch urine output. I explained we used blood tests to monitor for these side effects. I reviewed the f act that people may develop an allergy to antibiotics at any time, even 5 weeks into therapy . This may manifest as a rash or renal failure, or aches and it is therefore important to re port any new symptoms. I spent a total of 22 minutes face to face with the patient and over 50% was time spent in counseling in which we discussed infection, antibiotics, duration of therapy, lab result, an d follow-up planning. Brigid Hardy PA-C [facility] Department of Infectious Diseases Outpatient IV Antibiotic Therapy Clinic (OPAT) [phone] Pager ID: [phone] [facility] Mail Code L457 [place] [address] documented in this encounter Plan of Treatment Not on filedocumented as of this encounter Procedures + +--------+ + + + | Procedure Name | Priori | Date/Time | Associated Diagnosis | Comments | | | ty | | | | + +--------+ + + + | ORDERS OTHER | | 09/17/2012 | | Results for this | | | | 12:00 AM | | procedure are in the | | | | PST | | results section. | + +--------+ + + + | ORDERS OTHER | | 09/17/2012 | | Results for this | | | | 12:00 AM | | procedure are in the | | | | PST | | results section. | + +--------+ + + + documented in this encounter Results ORDERS OTHER (09/17/2012 12:00 AM PST) + + + | Narrative | Performed At | + + + | | | | | | + + + + + | Procedure Note | + + | Xi, Faculty - 09/23/2012 7:35 AM PST | + + ORDERS OTHER (09/17/2012 12:00 AM PST) + + + | Narrative | Performed At | + + + | | | | | | + + + + + | Procedure Note | + + | He Layne - 09/21/2012 2:36 PM PST | + + documented in this encounter Visit Diagnoses + + | Diagnosis | + + | Osteomyelitis of knee region (HCC) - Primary Unspecified osteomyelitis, lower leg | + + | Encounter for long-term (current) use of antibiotics | + + documented in this encounter
--- OUTSIDE RECORDS SUMMARY | ~2019-05-28 | XMS | Encounter Summary ---
Demographics + + + | Address | [address] | | | [place] [address] | + + + | Home Phone [...] [place] | | | | | [address] | | + + + + + Care Team Providers + +------+ + | Care Retail Management Keyholder Name | Role | Phone | + [...] | s of knee | Health | [facility] | | | | | region ([facility]) | Associates | [address], | | | | | AVN | [address] | [place] | | | | | (avascular | [address] | [address] | | | | | necrosis of | [place], | | | | | | bone) ([facility]) | [place] [address] | | | | | | Pathologic | Phone: | | | | | | fracture of | [phone] | | | | | | tibia or | Fax: | | | | | | fibula | [phone] | | | | | | Septic | | | | | | | 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| | | | | | knee, left | | | | | | | (HCC) | | | | | | | Procedures | | | | | | | REQUEST TO | | | | | | | SURGERY | | | | | | | 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 DRIVER | | | | | | | MI PARTIAL | | | | | | | REMOVAL OF | | | | | | | TIBIA MI | | | | | | | INSERTION | | | | | | | DRUG IMPLANT | | | | | | | DEVICE MI | | | | | | | KNEE | | | | | | | SCOPE,SHAVE | | | | | | | ARTICULAR | | | | | | | CART MI | | | | | | | [...] | | 2013 | Visit | [facility] [address] | | knee region (HCC) | | | | [address] | | (Primary Dx); Septic | | | | Mailcode: [id number] | | arthritis of knee, | | | | [facility] | | left (HCC) | | | | [place], [place] | | | | | | [address] | | | | | | [phone] | | | +--------+---------+ + + + [...] been following instructions and denies interval injury. Daneel denies fever, chills, numbness, tingling, weakness, chest [...] Intraoperative Consult Diagnosis confirmed by: Kaushik Duong ([facility]) and Khushi Romero M.D./Pathologist ASSESSMENT: Doing well [...] separate note for details). DARRICK BUITRAGO MD [facility] [address] [place] [address] Mailcode: [id number] [place] [address] Basia Vivar MA - 02/2013 3:15 PM [...]
--- OUTSIDE RECORDS SUMMARY | ~2019-05-28 | XMS | Encounter Summary ---
Demographics + + + | Address | [address] | | | [place] [address] | + + + | Home Phone [...] + + + | Author | [facility] | + + + | Organization | [facility] | + + + | Address | Unknown | + + + | Phone | Unavailable | + + + Support + + + + + | Name | Relationship | Address | Phone | + + + + + | Grisel Marc | FE | [address] | | | | | [place] | | | | | [address] | | + + + + + Care Team Providers + +------+ + | Care Drum Sander Name | Role | Phone | + [...] + + + + | 09/04/ | [place] | Infectious | [place], Brigid | | | 2012 | | [facility] at [facility] | [place] | | | | | Floor [address] | | | | | | [address] | | | | | | Mailcode: [id number] | | | | | | [facility] | | | | | | [place], [place] | | | | | | [address] | | | | | | [phone] | | | +--------+ + + + [...]
--- OUTSIDE RECORDS SUMMARY | ~2019-05-28 | XMS | Encounter Summary ---
Demographics + + + | Address | [address] | | | [place] [address] | + + + | Home Phone [...] Author | [facility] | + + + | Organization | [facility] | + + + | Address | Unknown | + + + | Phone | Unavailable | + + + Support + + + + + | Name | Relationship | Address | Phone | + + + + + | Grisel Marc | FE | [address] | | | | | [place] | | | | | [address] | | + + + + + Care Team Providers + +------+ + | Care Director Of Golf Name | Role | Phone | + +------+ + | Adilia Bob JIG MAKER | PCP | | + +------+ [...] [place] | | | | | Floor [address] [facility] | [address] | | | | | [address] | [place] [address] | | | | | Mailcode: [id number] | [phone] | | | | | [facility] | | | | | | [place], [place] | | | | | | [address] | | | | | | [phone] | | | +--------+ + + + [...]
--- OUTSIDE RECORDS SUMMARY | ~2019-05-28 | XMS | Encounter Summary ---
Demographics + + + | Address | [address] | | | [place] [address] | + + + | Home Phone [...] Author + + + | Author | [facility] | + + + | Organization | [facility] | + + + | Address | Unknown | + + + | Phone | Unavailable | + + + Support + + + + + | Name | Relationship | Address | Phone | + + + + + | Grisel Marc | FE | [address] | | | | | [place] | | | | | [address] | | + + + + + Care Team Providers + +------+ + | Care Pick Remover Name | Role | Phone | + [...] + + + + | 09/07/ | Refractory Technician | Infectious | Brigid Hardy | | | 2012 | | [facility] | [place] | | | | | Floor [address] [facility] | | | | | | [address] | | | | | | Mailcode: [id number] | | | | | | [facility] | | | | | | [place], [place] | | | | | | [address] | | | | | | [phone] | | | +--------+ + + + [...]
--- OUTSIDE RECORDS SUMMARY | ~2019-05-28 | XMS | Encounter Summary ---
Demographics + + + | Address | [address] | | | [place] [address] | + + + | Home Phone [...] Author + + + | Author | [facility] | + + + | Organization | [facility] | + + + | Address | Unknown | + + + | Phone | Unavailable | + + + Support + + + + + | Name | Relationship | Address | Phone | + + + + + | Grisel Marc | FE | [address] | | | | | [place] | | | | | [address] | | + + + + + Care Team Providers + +------+ + | Care Apparel Machinery Instructor Name | Role | Phone | + +------+ + | Adilia Bob COOK FISH EGGS | PCP | | + +------+ + [...] IRRIGATION AND | | 2012 | | [facility] | | DEBRIDEMENT OF LEFT | | | | Admitting Desk | | PROXIMAL TIBIAL WITH | | | | Located on the 9th | | PLACEMENT OF CASO4 | | | | floor [address] | | ANTIBIOTICS BEADS; | | | | [address] | | microbiology x 11 | | | | [place], [place] | | | | | | [address] | | | +--------+---------+ + + + [...] Angel MD - 09/10/2012 8:12 AM PST [facility] [place] DEPARTMENT OF ORTHOPAEDICS & REHABILITATION INPATIENT HOSPITAL DISCHARGE SUMMARY & INTERDISCIPLINARY INSTRUCTIONS Patient: Sandy Marc CSN: [id number] Admission Date: 09/02/2012 Discharge Date: 09/05/2012 Attending Physician: Alton Hernandez MD PCP: SAEED Presley Service: [facility] Orthopaedics & Rehabilitation Diagnoses Principal Final Diagnosis: [...] for > 5 years. , Historical Med [facility] Orthopaedic Service Pain Policy At the 6-week [...] our pleasure. David Peter MD Pager # [phone] documented in this enc ounter Discharge Instructions Instructions Sally Gupta RN - 09/04/2012Formatting of this note might be different f rom the original. ADDITIONAL INFORMATION: [facility] will provide IV antibiotics and education. They can be r eached at: [phone]. You will need to go to [facility] ([phone] - Unit C) for PICC line dressin [...] Arthritis: After Your Visit", log into your [employer] account at [email or web address]. You can enter C265 in the [employer] [facility] Library" search box. Not on General Cyberneticst? Review the MyChart section of your After Visit Summary for directions on aysha norris to sign up. [phone] [employer]. Care instructions adapted under license by [facility] [place]. This care instruction is for use with your licensed healthcar e professional. If you have questions about a medical condition or this instruction, always ask your healthcare professional. [employer] disclaims any warranty or liabili ty for your use of this information. Content Version: 9.5.40060; Last Revised: July 18, 2011 Patient Education [...] provider under separate cover. Anticipated OPAT Setting: [facility] [phone] f: [phone] ID/OPAT Clinic follow-up: OPAT clinic visit in 1-2 weeks after discharge in conjunction wit h [facility] Orthopedic Service. We will call to schedule this appointment after patient is disch arged. Interdisciplinary Communication: Please notify OPAT clinic 24-48 hours prior to discharge b y calling [phone] (We need anticipated discharge date & where patient is going; i.e. name, ph one, and fax for home infusion vendor, fpc facility, or daily outpatient infusio n center providing outpatient antibiotic therapy services.) [facility] Department of Infectious Disease Outpatient IV Antibiotic Therapy Clinic (OPAT) Pager ID: [phone] [facility] Joy Zamora. Mail Code L457 [place] [address] OPAT teaching note: Education and training for [...] symptoms immediately, and if unable to contact [facility] or the infus ion service provider, then to present to the nearest ED. I verified that the patient has a primary care provider, and that they will follow-up with them following this hospitalization in regards to other medical issues such as chronic pain, diabetes, or high blood pressure for which we do not provide any care. I provided the patient with the [facility] welcome letter that reiterates the above teaching. I spent 45 minutes in education and training in patient self management for IV antibiotic a nd PICC line use with greater than 50% spent on counseling and/or coordination of care. [facility] DEPARTMENT: IDC INFECT DIS CONSULT - [id number] Place of Service: Inpatient Date of Service: 09/04/2012 CSN: [id number] Suggested Modifier: OPATC David Angel MD - [...] made with LENCHO Peter MD Pager # [phone] David Angel MD - 09/03/2012 7:53 AM [...] 6 weeks David Peter MD Pager # [phone] Malathi Mccauley MD - 09/03/2012 1:27 AM [...] See brief op note MALATHI BRYANT MD [facility] [place] Department of Orthopaedics & Rehabilitation [address] [place] [address] Mail Code: OP31 [facility] 87[address] documented in this e ncounter Plan of [...] + + + | IP CONSULT TO [facility] | Routin | 09/03/2012 | | Results [...] | + + + + + | [facility] | [address] | [place] [address] | | | SERVICES, CORE | JOY [...] [facility] | [address] | [place] [address] | | | SERVICES, CORE | PARK [...] | + + + + + | [facility] | [address] [facility] [facility] [address] | [place] [address] | | | SERVICES, [facility] | [address] | | | + + + + + OPERATION RECORD (09/03/2012 2:02 PM PST) + + | Transcriptions | + + | David Peter MD - 09/03/2012 12:20 PM PST Date: 09/02/2012ttending | | Surgeon: Alton Hernandez M.D.Steeple Jack(s): David | | TAQUERIA Peterreoperative Diagnosis(es):1. Left [...] by | | Dr. Jerald Don in [place] on December 10, 2011. At that time, [...] the reamers. We then used our canal forestry pilot | | to thoroughly wash out the [...] | | Thiago, M.Engr.General Orthopaedics, Trauma / [id number] / [id number] / [id number] /D: | | 09/02/2012T: 09/03/2012 | | [...] (Unit/Room #): | | | 9k Diagnosis: 399245 Osteomyelitis of knee region 062614 AVN | | | (avascular necrosis of bone) 737151 Pathologic fracture of tibia or | | | fibula 867504 Septic arthritis of knee, left Indications: (Select [...] Lot # (or | | | Sticker): [id number] INSERTION SITE: - Basilic Left Local | [...] 09/03/2012Start Time: 0900Patient Location (Unit/Room #): 9kDiagnosis: 056614 | | Osteomyelitis of knee [id number] AVN (avascular necrosis of bone)617957 Pathologic | | fracture of tibia or [id number] Septic arthritis of knee, leftIndications: (Select all [...] CATHETERProduct | | Name: Benistruction: Single4 Fr60cm Obli2jt TrimmedLot # (or Sticker): | | [id number] SITE: - BasilicLeftLocal anesthetic used: lidocaineSedation used: [...] |8cm Trimmed | |Lot # (or Sticker): [id number] | | | |INSERTION SITE: - Basilic [...] | + + + + + | [facility] | [address] | [place] [address] | | | SERVICES, ELLIE | PARK [...] | + + + + + | [facility] | [address] | [place] [address] | | | SERVICES, CORE | JOY [...] | | + +---------+ + + | [facility] DEPARTMENT OF | | | | [...] | | | Final SMEAR:No | | [place] | | | | fungal elements seen [...] + | [facility] - | [address] | [place] [address] | | | [place] | | | [...] + | [facility] - | [address] | [place] [address] | | | [place] | | | [...] + | [facility] - | [address] | [place] [address] | | | [place] | | | | + + + [...] | | Final SMEAR:AFB not | | [place] | | | | detected source: left [...] + | [facility] - | [address] | [place] [address] | | | [place] | | | | + + + [...] | | RESULT | Tissue | | [facility] - | | | | Final SMEAR:No [...] | + + + + + | [facility] - | [address] | [place] [address] | | | [place] | | | [...] | + + + + + | [facility] - | [address] | [place] [address] | | | [place] | | | | + + + [...] + | [facility] - | [address] | [place] [address] | | | [place] | | | | + + + [...] | | Final SMEAR:AFB not | | [place] | | | | detected source: left [...] | + + + + + | [place] [facility] - | [address] | [place] [address] | | | [place] | | | [...] | + + + + + | [facility] - | [address] | [place] [address] | | | [place] | | | | + + + [...] + | [facility] - | [address] | [place] [address] | | | [facility] | | | | + + + [...] | | Final SMEAR:AFB not | | [place] | | | | detected source: left [...] + | [facility] - | [address] | [place] [address] | | | [facility] | | | | + + + [...] | + + + + + | [facility] - | [address] | [place] [address] | | | [place] | | | | + + + [...] | | | Final SMEAR:No | | [place] | | | | fungal elements seen [...] + | [facility] - | [address] | [place] [address] | | | [place] | | | | + + + [...] | | Final SMEAR:AFB not | | [place] | | | | detected source: left [...] + | [facility] - | [address] | [place] [address] | | | [place] | | | [...] + | [facility] - | [address] | [place] [address] | | | [place] | | | [...] + | [facility] - | [address] | [place] [address] | | | [place] | | | | + + + [...] | | Final SMEAR:AFB not | | [facility] | | | | detected source: left [...] | + + + + + | [facility] - | [address] | [place], [place] [facility] | | | [place] | | | | + + + [...] | | Final GRAM STAIN:No | | [place] | | | | squamous epithelial | [...] + | [facility] - | [address] | [place] [address] | | | [place] | | | [...] | + + + + + | [facility] - | [address] | [place] [address] | | | [place] | | | [...] | | Final SMEAR:AFB not | | [place] | | | | detected source: left [...] + | [facility] - | [address] | [place] [address] | | | [facility] | | | | + + + [...] + | [facility] - | [address] | [place] [address] | | | [place] | | | | + + + [...] + | [facility] - | [address] | [place] [address] | | | [place] | | | | + + + [...] + | [facility] - | [address] | [place] [address] | | | [facility] | | | | + + + [...] + | [facility] - | [address] | [place] [address] | | | [place] | | | | + + + [...] | + + + + + | [facility] - | [address] | [place] [address] | | | [place] | | | | + + + [...] + | [facility] - | [address] | [place] [address] | | | [place] | | | | + + + [...] | + + + + + | [facility] - | [address] | [place] [address] | | | [place] | | | | + + + [...] + | [facility] - | [address] | [place] [address] | | | [place] | | | | + + + [...] | | Final SMEAR:AFB not | | [place] | | | | detected source: left [...] | + + + + + | [place] [facility] - | [address] | [place] [address] | | | [place] | | | [...] + | [facility] - | [address] | [place] [address] | | | [place] | | | | + + + [...] | | | Final CULTURE | | [place] | | | | RESULT:No growth | [...] + | [facility] - | [address] | [place] [address] | | | [place] | | | | + + + [...] HOS[facility] | [address] | [place] [address] | | | PATHOLOGY | [address] [...]
--- OUTSIDE RECORDS SUMMARY | ~2019-05-28 | XMS | Encounter Summary ---
Demographics + + + | Address | [address] | | | [place] [address] | + + + | Home Phone [...] + | Grisel Marc | ECON | [address] | | | | | [place] | | | | | [address] | | + + + + + Care Team Providers + +------+ + | Care Line Service Person Name | Role | Phone | [...] | | | | [address] | [address] | | | | | [address] | [phone] | | | | | [place] | | | | | | [address] | | | | | | [phone] | | | +--------+ + + + [...]
--- OUTSIDE RECORDS SUMMARY | ~2019-05-28 | XMS | Encounter Summary ---
Demographics + + + | Address | [address] | | | [place] [address] | + + + | Home Phone [...] [place] | | | | | [address] | | + + + + + Care Team Providers + +------+ + | Care Activities Director Scouting Name | Role | Phone | + +------+ + | Adilia oBb PROJECT ESTIMATOR | PCP | | + +------+ + Encounter Details +--------+ + + + + | Date | Type | Department | Care Team | Description | +--------+ + + + + | 10/13/ | Manager Strategic | Orthopaedics at | Alton Hernandez MD | Osteomyelitis of | | 2012 | | [facility] [address] | | knee region (HCC) | | | | [address] | | (Primary Dx) | | | | Mailcode: PV430 | | | | | | Physician's [address] | | | | | | [place], [place] | | | | | | [address] | | | | | | [phone] | | | +--------+ + + + [...]
--- OUTSIDE RECORDS SUMMARY | ~2019-05-28 | XMS | Encounter Summary ---
Demographics + + + | Address | [address] | | | [place] [address] | + + + | Home Phone [...] [place] | | | | | [address] | | + + + + + Care Team Providers + +------+ + | Care Fish Bin Tender Name | Role | Phone | [...] | | | | | Floor [address] [facility] | [address] | | | | | [address] | [place] [address] | | | | | Mailcode: L457 | [phone] | | | | | Physician's [address] | | | | | | [place], [place] | | | | | | [address] | | | | | | [phone] | | | +--------+ + + + [...]
--- OUTSIDE RECORDS SUMMARY | ~2019-05-28 | XMS | Encounter Summary ---
Demographics + + + | Address | [address] | | | [place] [address] | + + + | Home Phone [...] + | Grisel Marc | ECON | [address] | | | | | [place] | | | | | [address] | | + + + + + Care Team Providers + +------+ + | Care Leather Goods I Assembler Name | Role | Phone | + [...] | | dislocation, | [address] | | | | | right, | [address] | [place], | | | | | initial | [place], | [place] [address] | | | | | encounter | [place] | Phone: | | | | | Procedures | [address] | [phone] | | | | | PHYSICAL | Phone: | Fax: | | | | | THERAPY | [phone] | [phone] | | | | | REFERRAL | Fax: | | | | | | | [phone] | | +--------+--------+ + + + + [...] [address] | | | | | | St | Bl[address] | | | | | | [place], | [place] | | | | | | [place] [address] | [address] | | | | | | Phone: | Phone: | | | | | | [phone] | [phone] | | | | | | Fax: | Fax: | | | | | | [phone] | [phone] | +--------+--------+ + + + + Encounter [...] Surgery | Blvd [place] | Patellar | | | | [address] | [address] | dislocation, right, | | | | [address] | [phone] | initial encounter | | | | [place] | | | | | | [address] | | | | | | [phone] | | | +--------+---------+ + + + [...] knee. UT move. Made call then gradua graysony moved knee and it went back in [...] | + + + | [address] | [facility] | | [place] [address] | DEPARTMENT OF | | [phone] Name: SANDY MARC Phys: | RADIOLOGY | | CINTHYA NICOLAS : 1990 Sex: F | | | CSN: [id number] MR# [id number] Exam Date: | | | 12/06/2015 EXAM: [...] Transcribed Date/Time: | | | 12/06/2015 15:56 Hardware Designer: YORDY | | + + + + + | Procedure Note | + + | Interface, Radiology Results - 12/06/2015 4:01 PM PDT [address] | | [address] [place] [address] | | Name: SANDY MARC Phys: CINTHYA NICOLAS : 1990 Sex: F | | CSN: [id number] MR# [id number] Exam Date: 12/06/2015 EXAM:X-RAY KNEE 3 VIEWS [...] | | |Transcribed Date/Time: 12/06/2015 15:56 | |Hardware Designer: FLUENCY | | | | | | [...]
--- OUTSIDE RECORDS SUMMARY | ~2019-05-28 | XMS | Encounter Summary ---
Demographics + + + | Address | [address] | | | [place] [address] | + + + | Home Phone [...] [place] | | | | | [address] | | + + + + + Care Team Providers + +------+ + | Care Oncology Consultant Name | Role | Phone | [...] [facility] | | | | | | [address] | | | | | | [place] Mailcode: | | | | | | PV450 Physician's | | | | | | [place], | | | | | | [place] [address] | | | | | | [phone] | | | +--------+ + + + [...]
--- OUTSIDE RECORDS SUMMARY | ~2019-05-28 | XMS | Encounter Summary ---
Demographics + + + | Address | [address] | | | [place] [address] | + + + | Home Phone [...] [place] | | | | | [address] | | + + + + + Care Team Providers + +------+ + | Care Firepot Operator And Tender Name | Role | Phone | + +------+ + | Adilia Bob FINISHING MANAGER | PCP | | + +------+ [...] [address] | | | | | | [place], [place] | | | | | | [address] | | | | | | [phone] | | | +--------+ + + + [...]
--- OUTSIDE RECORDS SUMMARY | ~2019-05-28 | XMS | Encounter Summary ---
Demographics + + + | Address | [address] | | | [place] [address] | + + + | Home Phone [...] [place] | | | | | [address] | | + + + + + Care Team Providers + +------+ + | Care Supervisor Wound Name | Role | Phone | + [...] Hernandez MD | Other specified | | 2013 | Visit | [facility] [address] | | pre-operative | | | | [address] | | examination (Primary | | | | Mailcode: PV430 | | Dx); Pathologic | | | | [facility] | | fracture of tibia or | | | | [place], [place] | | fibula; | | | | [address] | | Osteomyelitis of | | | | [phone] | | knee region (HCC); | | | | | | Septic 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| | | | | knee, left (HCC); | | | | | | AVN (avascular | | | | | | necrosis of bone) | | | | | | ([facility]) | +--------+---------+ + + + Social History [...] in this encounter Patient Instructions Patient Instructions Liz Melendez - 08/19/2012 2:22 PM PST Registration Locations (please check in at one of the following registration desks prior to surgery) For surgeries scheduled to take place on the [place] at the [facility]: Surgeries scheduled in the [facility] ([address] [place] [address]): registration is located on the 4th floor of [facility] (Day Surgery). Surgeries scheduled in the [facility]: registration is located on the 9th floor. Surgeries scheduled in [facility]: registration is located on the 6th floor. Surgeries scheduled in the [facility]: registration is located i n the [facility] on the first floor. For surgeries scheduled to take place at the [facility]: registration is l [...] you use specialized medical equipment at [facility], please check with your provider before [...] in conjunction with Dr. Jovany almanzar from [place]. Her HPI is copied from her previous [...] plateau fracture by Dr. Jerald Don in [place] on 12/10/11. Calcium phosphate cement was used [...] She has already been cleared by the [facility] clinic yesterday. Surge ry is scheduled for [...]
--- OUTSIDE RECORDS SUMMARY | ~2019-05-28 | XMS | Clinical Summary ---
Demographics + + + | Address | [address] | | | [place] [address] | + + + | Home Phone | | + + + | Preferred Language | Unknown | + + + | Marital Status | Single | + + + | Advent Affiliation | Unknown | + + + | Race | Unknown | + + + | Ethnic Group | Unknown | + + + Author + + + | Author | [facility] (Historical as of | | | 03-27-19) | + + + | Organization | [facility] (Historical as of | | | 03-27-19) [...] Providers + +------+ + | Care Computer Help Desk Specialist Name | Role | Phone | [...] + | Maternal Aunt | | | CT | | | | (Age | | [...] +------+-------+ + | MEDICAID | POER | [id number] | | | [address] | | | N | | | | [place] | | | [place] | | | | [address] | | | PATIENT TRANSPORT ORDERLY | | | | | + +--------+ +------+-------+ + + +--------+ +--------+ + + | Guarantor Name | Accoun | Relation to | Date | Phone | Billing Address | | | t Type | Patient | of | | | | | | | | | | + +--------+ +--------+ + + | SANDY MARC | Person | Self [birth year] Home: | [address] | | | al/Fam | | 1990 | [phone] | [place] | | | nayla | | | [address] | [address] | + +--------+ +--------+ + +
--- OUTSIDE RECORDS SUMMARY | ~2019-05-28 | XMS | Encounter Summary ---
Demographics + + + | Address | [address] | | | [place] [address] | + + + | Home Phone [...] [place] | | | | | [address] | | + + + + + Care Team Providers + +------+ + | Care Data Transcriber Name | Role | Phone | + [...] | Closed | | Infectious | | Lisbeth, | [place], | | | | Disease | | LUCINA ViverosP | ADRIEN Epperson | | | | | | Family | [address] | | | | | | Health | [facility] | | | | | | Associates | Rd | | | | | | [address] | [place], [place] | | | | | | St, [address] | [address] | | | | | | [place], | | | | | | | [place] [address] | | | | | | | Phone: | | | | | | | [phone] | | | | | | | Fax: | | | | | | | [phone] | | +--------+--------+ + + + + [...] | | | | [facility] 4th Floor [address] | (Primary Dx) | | | | [facility] | [place] [address] | | | | | Rd Mailcode: L608 | [phone] | | | | | Physician's [address] | | | | | | [address] | | | | | | [place], [place] | | | | | | [address] | | | | | | [phone] | | | +--------+---------+ + + + [...] FOLLOW UP Referrring Physician: Alton Hernandez MD [address] [place] [address] Primary Care Physician: [facility] [address] , [address] [place] [address] Ms. Marc presents to Infectious Diseases Clinic regarding scheduled follow up. Please refer to prior documentation including inpatient OPAT teaching note, outpatient OPAT sales order coordinator for antibiotic therapy, lab monitoring History other than "Interim History" below is directly copied from previous ID notes to darya mcdonough. In addition I reviewed the history from the patient's [facility] admiss ion, including but not limited [...] antibiotic beads 09/03/2012: HIRAM Silva [facility] Operative Findings: There were no gross findings [...] She was seen in the ER in [place] and had a CT Thor ax that [...] [place] follow up [facility] [place] I spent 20 minutes in a face-to face visit with the patient, with over 50% of time spen t in councelling the patient. We discussed infection, antibiotics, duration of therapy, lab results, and follow-up planning, as described above. ZOEY PECK MD INFECTIOUS DISEASES [address] [place] [address] Mailcode: L608 [place] [address] documented in this e ncounter Plan of Treatment Not on filedocumented as of this encounter Visit Diagnoses + + | Diagnosis | + + | Osteomyelitis of knee region (HCC) - Primary Unspecified osteomyelitis, lower leg | + + documented in this encounter
--- OUTSIDE RECORDS SUMMARY | ~2019-05-28 | XMS | Encounter Summary ---
Demographics + + + | Address | [address] | | | [place] [address] | + + + | Home Phone [...] [place] | | | | | [address] | | + + + + + Care Team Providers + +------+ + | Care Biological Sciences Professor Name | Role | Phone | [...] region (HCC) | | | | at [facility] 3rd Floor | | | | | | [address] | | | | | | [place], | | | | | | [place] [address] | | | | | | [phone] | | | +--------+------+ + + + [...] e | 10:01 AM | knee region ([facility]) | procedure are in the | | | | PST | | results section. | + +--------+ + + + | IGA, SERUM | Routin | 08/25/2012 | Osteomyelitis of | Results for this | | | e | 10:01 AM | knee region ([facility]) | procedure are in the | | [...] + | [facility] | [address] | [place] [address] | | | SERVICES, CORE | PARK [...] [facility] | [address] | [place] [address] | | | SERVICES, SPECIAL | PARK [...] | | | | in the [facility] | | | | | | LaboratoryTest Directory | | | | | | ([facility]). | | | | + + + [...] | | | | in the [facility] | | | | | | LaboratoryTest Directory | | | | | | ([facility]). | | | | + + + [...] | | | | in the [facility] | | | | | | LaboratoryTest Directory | | | | | | ([facility]). | | | | + + + [...] # | | | | | | [phone]). Access | | | | | | complete set of age- | | | | | | and/or | | | | | | gender-specificreference | | | | | | intervals for this test | | | | | | in the [facility] | | | | | | LaboratoryTest Directory | | | | | | ([employer]).Performed | | | | | | by [facility] | | | | | | [facility] | | | | | | [place] [address] | | | | | | [phone]. | | | | | | [facility], Magy Fernandez, | | | | | | MD Lab. Director | | | | + + + + + + + + | Specimen | + + | Blood - Blood | + + + + + + + | Performing | Address | City/State/Zipcode | Phone Number | | Organization | | | | + + + + + | [facility] | [address] | [place], [place] | | | [facility] | | [address] | | + + + + + [...] | + + + + + | [facility] - | [address] | [place] [address] | | | SELMA | | | | + + + + + documented in this encounter Visit Diagnoses + + | Diagnosis | + + | Osteomyelitis of knee region (HCC) Unspecified osteomyelitis, lower leg | + + documented in this encounter"
--- OUTSIDE RECORDS SUMMARY | ~2019-05-28 | XMS | Encounter Summary ---
Demographics + + + | Address | [address] | | | [place] [address] | + + + | Home Phone | | + + + | Preferred Language | Unknown | + + + | Marital Status | Single | + + + | Anabaptism Affiliation | LUT | + + + [...] + | Grisel [place] | ECON | [address] | | | | | [place] | | | | | [address] | | + + + + + Care Team Providers + +------+ + | Care Warehouse Associate Driver Name | Role | Phone | [...] | | Orthopaedic Surgery | Blvd [place], [place] | pain, chronic, left | | | | [address] | [address] | | | | | [address] | [phone] | | | | | [place] | | | | | | [address] | | | | | | [phone] | | | +--------+---------+ + + + [...] Left Knee Pain History of Present Illness Sandy twisted her left knee while she was [...] She had been followed by ID at [facility] also. She has had chronic symptoms [...] She should keep it strong, use her cube machine tender brace as tolerated. Of course she knows [...]
--- OUTSIDE RECORDS SUMMARY | ~2019-05-28 | XMS | Encounter Summary ---
Demographics + + + | Address | [address] | | | [place] [address] | + + + | Home Phone [...] [place] | | | | | [address] | | + + + + + Care Team Providers + +------+ + | Care License Distributor Name | Role | Phone | + [...] [place] | | | | | | [place] | | | | | | [address] | | | | | | [phone] | | | +--------+ + + + [...]
--- OUTSIDE RECORDS SUMMARY | ~2019-05-28 | XMS | Encounter Summary ---
Demographics + + + | Address | [address] | | | [place] [address] | + + + | Home Phone [...] + + + | Author | [facility] | + + + | Organization | [facility] | + + + | Address | Unknown | + + + | Phone | Unavailable | + + + Support + + + + + | Name | Relationship | Address | Phone | + + + + + | Grisel Marc | FE | [address] | | | | | [place] | | | | | [address] | | + + + + + Care Team Providers + +------+ + | Care Sap Bw Bi Developer Name | Role | Phone | + +------+ + | Adilia Bob MANAGER PMO | PCP | | + +------+ + [...] | | | | | Floor [address] [facility] | [address] | | | | | [address] | [place] [address] | | | | | Mailcode: L457 | [phone] | | | | | Physician's [address] | | | | | | [place], [place] | | | | | | [address] | | | | | | [phone] | | | +--------+ + + + [...]
--- OUTSIDE RECORDS SUMMARY | ~2019-05-28 | XMS | Encounter Summary ---
Demographics + + + | Address | [address] | | | [place] [address] | + + + | Home Phone [...] [place] | | | | | [address] | | + + + + + Care Team Providers + +------+ + | Care Hogshead Stripper Name | Role | Phone | + +------+ + | Adilia Bob GROOMING ASSISTANT | PCP | | + +------+ + [...] + + | 09/02/ | Hospital | [facility] [address] | Alton Hernandez MD | | | 2012 - | Encounter | [address] | | | | | | [place] | | | | 09/05/ | | [place] | | | | 2012 | | [address] | | | | | | [phone] | | | +--------+ + + + [...] + documented in this encounter Discharge Summaries lAton Hernandez MD - 09/10/2012 8:12 AM PSTORTHOPAEDIC ATTENDING ADDENDUM: I saw and evaluated the patient daily on rounds. I agree with the findings and the plan of care as documented in the resident s note. Alton Hernandez M.D., M.Engr. General Orthopaedics, Trauma David Angel MD - 09/10/2012 8:12 AM PST [facility] DEPART[facility] OF ORTHOPAEDICS & REHABILITATION INPATIENT HOSPITAL DISCHARGE SUMMARY & INTERDISCIPLINARY INSTRUCTIONS Patient: Sandy Marc CSN: [id number] Admission Date: 09/02/2012 Discharge Date: 09/05/2012 Attending Physician: Alton Hernandez MD PCP: SAEED Presley Service: [facility] Orthopaedics & Rehabilitation Diagnoses Principal [...] for > 5 years. , Historical Med [facility] Orthopaedic Service Pain Policy At [...] our pleasure. David Peter MD Pager # [phone] documented in this enc ounter Discharge Instructions Instructions Sally Gupta RN - 09/04/2012Formatting of this note might be different f rom the original. ADDITIONAL INFORMATION: [facility] will provide IV antibiotics and education. They can be r eached at: [phone]. You will need to go to [facility] ([phone] - Unit C) for PICC line dressin [...] Arthritis: After Your Visit", log into your Gibberin account at [email or web address]. You can enter [id number] in the [employer]" search box. Not on Shipping Companyt? Review the MyChart section of your After Visit Summary for directions on ho w to sign up. [phone] Viewpost. Care instructions adapted under license by [facility]. This care instruction is for use with your licensed healthcar e professional. If you have questions about a medical condition or this instruction, always ask your healthcare professional. [employer] disclaims any warranty or liabili ty for your use of this information. Content Version: 9.5.32182; Last Revised: July 18, 2011 Patient Education [...] provider under separate cover. Anticipated OPAT Setting: [facility] [phone] f: [phone] ID/OPAT Clinic follow-up: OPAT clinic visit in 1-2 weeks after discharge in conjunction wit h [facility] Orthopedic Service. We will call to schedule this appointment after patient is disch arged. Interdisciplinary Communication: Please notify OPAT clinic 24-48 hours prior to discharge b y calling [phone] (We need anticipated discharge date & where patient is going; i.e. name, ph one, and fax for home infusion vendor, custodial facility, or daily outpatient infusio center providing outpatient antibiotic therapy services.) [facility] Department of Infectious Disease Outpatient IV Antibiotic Therapy Clinic (OPAT) Pager ID: [phone] [facility]. Mail Code L457 [place] [address] OPAT teaching note: Education and training for [...] symptoms immediately, and if unable to contact [facility] or the infus ion [...] care. I provided the patient with the [facility] welcome letter that reiterates the above teaching. I spent 45 minutes in education and training in patient self management for IV antibiotic a nd PICC line use with greater than 50% spent on counseling and/or coordination of care. [facility] DEPARTMENT: IDC INFECT DIS CONSULT - [phone] Place of Service: Inpatient Date of Service: 09/04/2012 CSN: [id number] Suggested Modifier: OPATC David Angel MD - [...] made with LENCHO Peter MD Pager # [phone] David Angel MD - 09/03/2012 7:53 AM [...] 6 weeks David Peter MD Pager # [phone] Malathi Mccauley MD - 09/03/2012 1:27 AM [...] See brief op note MALATHI BRYANT MD [facility] Department of Orthopaedics & Rehabilitation [address] [place] [address] Mail Code: OP31 [facility] [address] documented in this e ncounter Plan of [...] + + + | IP CONSULT TO [facility] | Routin | 09/03/2012 | | [...] + | Transcriptions | + + | Xi, Faculty - 09/09/2012 2:12 PM PST | [...] | + + + + + | [facility] | [address] | [place] [address] | | | SERVICES, CORE | JOY [...] [facility] | [address] | [place] [address] | | | SERVICES, CORE | JOY [...] | + + + + + | [facility] | [address] | [place] [address] | | | SERVICES, [facility] | [address] | | | + + + + + OPERATION RECORD (09/03/2012 2:02 PM PST) + + | Transcriptions | + + | David Peter MD - 09/03/2012 12:20 PM PST Date: 09/02/2012ttending | | Surgeon: Alton Hernandez M.D.Supervisor Phosphatic Fertilizer(s): David | | TAQUERIA Peterreoperative Diagnosis(es):1. Left [...] by | | Dr. Jerald Don in [place] on December 10, 2011. At that time, [...] the reamers. We then used our canal nascar racer | | to thoroughly wash out the [...] Thiago, M.Engr.General Orthopaedics, Trauma JUAN C / [id number] / [id number] / [id number] /D: | | 09/02/2012T: 09/03/2012 | | [...] (Unit/Room #): | | | 9k Diagnosis: [id number] Osteomyelitis of knee region 308185 AVN | | | (avascular necrosis of bone) 920708 Pathologic fracture of tibia or | | | fibula 070074 Septic arthritis of knee, left Indications: (Select [...] Lot # (or | | | Sticker): [id number] INSERTION SITE: - Basilic Left Local | [...] 09/03/2012Start Time: 0900Patient Location (Unit/Room #): 9kDiagnosis: 092790 | | Osteomyelitis of knee [id number] AVN (avascular necrosis of bone)163012 Pathologic | | fracture of tibia or [id number] Septic arthritis of knee, leftIndications: (Select all [...] at all times.PICC CATHETERProduct | | Name: Normaruction: Single4 Fr60cm Lfva5ot TrimmedLot # (or Sticker): | | [id number] SITE: - BasilicLeftLocal anesthetic used: lidocaineSedation used: [...] |8cm Trimmed | |Lot # (or Sticker): [id number] | | | |INSERTION SITE: - Basilic [...] | + + + + + | [facility] | [address] | [place] [address] | | | SERVICES, CORE | JOY [...] | + + + + + | [facility] | [address] | [place] [address] | | | SERVICES, CORE | JOY [...] | | + +---------+ + + | [facility] DEPARTMENT OF | | | [...] | | + +---------+ + + | [facility] DEPARTMENT OF | | | [...] | | RESULT | Tissue | | [facility] | | | Final SMEAR:No | | [place] | | | | fungal elements seen [...] + | [facility] - | [address] | [place] [address] | | | [place] | | | [...] | | Final SMEAR:AFB not | | [facility] | | | | [...] + | [facility] - | [address] | [place] [address] | | | [place] | | | [...] + | [facility] - | [address] | [place] [address] | | | [facility] | | | | [...] | | Final SMEAR:AFB not | | [place] | | | | detected source: left [...] + | [facility] - | [address] | [place] [address] | | | [place] | | | [...] | | | Final SMEAR:No | | [place] | | | | fungal elements seen [...] | + + + + + | [facility] - | [address] | [place] [address] | | | [place] | | | [...] + | [facility] - | [address] | [place] [address] | | | [place] | | | | + + + [...] | | | Final SMEAR:No | | [place] | | | | fungal elements seen [...] | + + + + + | [facility] - | [address] | [place] [address] | | | [place] | | | [...] + | [facility] - | [address] | [place] [address] | | | [facility] | | | | + + [...] + | [facility] - | [address] | [place] [address] | | | [facility] | | | | + + [...] | | | Final SMEAR:No | | [place] | | | | fungal elements seen [...] + | [facility] - | [address] | [place] [address] | | | [place] | | | [...] + | [facility] - | [address] | [place] [address] | | | [facility] | | | | [...] | | Final GRAM STAIN:No | | [place] | | | | squamous epithelial | [...] | + + + + + | [facility] - | [address] | [place] [address] | | | [place] | | | | + + + [...] + | [facility] - | [address] | [place] [address] | | | [place] | | | | + + + [...] | | Final SMEAR:AFB not | | [place] | | | | detected source: left [...] | + + + + + | [facility] - | [address] | [place] [address] | | | [place] | | | [...] | + + + + + | [facility] - | [address] | [place] [address] | | | [place] | | | | + + + [...] | | RESULT | Tissue | | [facility] | | | | Final SMEAR:No | | [place] | | | | fungal elements seen [...] + | [facility] - | [address] | [place] [address] | | | [place] | | | | + + + [...] | | Final SMEAR:AFB not | | [place] | | | | detected source: left [...] | + + + + + | [facility] - | [address] | [place] [address] | | | [place] | | | [...] + | [facility] - | [address] | [place] [address] | | | [place] | | | [...] + | [facility] - | [address] | [place] [address] | | | [facility] | | | | [...] | | Final SMEAR:AFB not | | [place] | | | | detected source: left [...] + | [facility] - | [address] | [place] [address] | | | [place] | | | | + + + [...] + | [facility] - | [address] | [place] [address] | | | [facility] | | | | [...] | | | Final SMEAR:No | | [place] | | | | fungal elements seen [...] | + + + + + | [facility] - | [address] | [place] [address] | | | [place] | | | | + + + + + CULTURE, AFB (ALL SPEC TYPES EXCEPT BLOOD) (09/02/2012 4:30 PM PST) + + + + + + | Component | Value | Ref Range | Performed | Pathologist | | | | | At | Signature | + + + + + + | CULTURE | C AFBSource: Sputum | | [facility] - | | | RESULT | | | [facility] - | | | | Final SMEAR:AFB not | | [place] | | | | detected source: 3) [...] | + + + + + | [facility] - | [address] | [place] [address] | | | [place] | | | | + + + [...] + | [facility] - | [address] | [place] [address] | | | [facility] | | | | [...] | + + + + + | [facility] - | [address] | [place] [address] | | | [place] | | | | + + + [...] + | [facility] - | [address] | [place] [address] | | | [facility] | | | | [...] | + + + + + | [facility] - | [address] | [place] [address] | | | [place] | | | | + + + [...] | | | Final SMEAR:No | | [place] | | | | fungal elements seen [...] | + + + + + | [facility] - | [address] | [place] [address] | | | [place] | | | [...] | | Final SMEAR:AFB not | | [facility] | | | | [...] + | [facility] - | [address] | [place] [address] | | | [place] | | | [...] + | [facility] - | [address] | [place] [address] | | | [place] | | | | + + + [...] | | | Final CULTURE | | [facility] | | | | RESULT:No growth | [...] + | [facility] - | [address] | [place] [address] | | | [place] | | | | + + + [...] | + + + + + | [facility] | [address] | [place] [address] | | | PATHOLOGY | [address] [...]
--- OUTSIDE RECORDS SUMMARY | ~2019-05-28 | XMS | Encounter Summary ---
Demographics + + + | Address | [address] | | | [place] [address] | + + + | Home Phone [...] [place] | | | | | [address] | | + + + + + Care Team Providers + +------+ + | Care Veneer Drier Name | Role | Phone | + +------+ + | Adilia Bob BUSINESS SALES CONSULTANT | PCP | | + +------+ + Encounter Details +--------+ + + + + | Date | Type | Department | Care Team | Description | +--------+ + + + + | 11/25/ | Legislative Advocate | Orthopaedics at | Alton Hernandez MD | Osteomyelitis of | | 2012 | | [facility] [address] | | knee region (HCC) | | | | [address] | | (Primary Dx); | | | | Mailcode: [id number] | | Pathologic fracture | | | | [facility] | | of tibia or fibula | | | | [place], [place] | | | | | | [address] | | | | | | [phone] | | | +--------+ + + + [...] | | + +---------+ + + | [facility] DEPARTMENT OF | | | | [...]
--- OUTSIDE RECORDS SUMMARY | ~2019-05-28 | XMS | Encounter Summary ---
Demographics + + + | Address | [address] | | | [place] [address] | + + + | Home Phone [...] + | Grisel Marc | ECON | [address] | | | | | [place] | | | | | [address] | | + + + + + Care Team Providers + +------+ + | Care Medical Information Officer Name | Role | Phone | [...] Closed | | Radiology | Diagnoses | Nicolas, | STEVE GOOD | | | | | Pain, | Mars Presley MD | [facility] | | | | | joint, knee, | [address] | [address] | | | | | right | [address] | [address] | | | | | Procedures | [place], | [place], [place] | | | | | MRI KNEE RT | [place] | [address] | | | | | [place] | [address] | Phone: | | | | | MRI LOWER | Phone: | [phone] | | | | | EXTREM JT, | [phone] | Fax: | | | | | W/O CONTRAST | Fax: | [phone] | | | | | | [phone] | | +--------+--------+ + + + + [...] [address] | | | | | | | [address] | | | | | | [place], | [place] | | | | | | [place] [address] | [address] | | | | | | Phone: | Phone: | | | | | | [phone] | [phone] | | | | | | Fax: | Fax: | | | | | | [phone] | [phone] | +--------+--------+ + + + + Encounter [...] | | [address] | [address] | | | | | [address] | [phone] | | | | | [place], [place] | | | | | | [address] | | | | | | [phone] | | | +--------+---------+ + + + [...]
--- OUTSIDE RECORDS SUMMARY | ~2019-05-28 | XMS | Encounter Summary ---
Demographics + + + | Address | [address] | | | [place] [address] | + + + | Home Phone [...] [place] | | | | | [address] | | + + + + + Care Team Providers + +------+ + | Care Mica Parts Sprayer Name | Role | Phone | + [...] | | | | | Floor [address] [facility] | [address] | | | | | [address] | [place] [address] | | | | | Mailcode: L457 | [phone] | | | | | Physician's [address] | | | | | | [place], [place] | | | | | | [address] | | | | | | [phone] | | | +--------+ + + + [...]
--- OUTSIDE RECORDS SUMMARY | ~2019-05-28 | XMS | Encounter Summary ---
Demographics + + + | Address | [address] | | | [place] [address] | + + + | Home Phone [...] [place] | | | | | [address] | | + + + + + Care Team Providers + +------+ + | Care Cinder Worker Name | Role | Phone | [...] + + + + | 09/24/ | Licensed Psychologist | Infectious | Brigid Hardy | | | 2012 | | Diseases at [facility] 3rd | [place] | | | | | Floor [address] [facility] | | | | | | [address] | | | | | | Mailcode: L457 | | | | | | Physician's [address]az[address] | | | | | | [place], [place] | | | | | | [address] | | | | | | [phone] | | | +--------+ + + + [...]
--- OUTSIDE RECORDS SUMMARY | ~2019-05-28 | XMS | Clinical Summary ---
Demographics + + + | Address | [address] | | | [place] [address] | + + + | Home Phone [...] Author + + + | Author | [facility] | + + + | Organization | [facility] | + + + | Address | Unknown | + + + | Phone | Unavailable | + + + Support + + + + + | Name | Relationship | Address | Phone | + + + + + | Grisel Marc | ECON | [address] | | | | | [place] | | | | | [address] | | + + + + + Care Team Providers + +------+ + | Care Adjunct Instructor Name | Role | Phone | + +------+ + | Hina Peterson | PCP | | + +------+ + Source Comments FLIP is fully live on both EpicCare Ambulatory and EpicCare InPatient.[facility] Allergies + + + + + + [...] glycol 17 gram/dose | | | | 320 | | e | | oral powder [...] | Possible avascular necrosis. Recommended referral to [facility] | | (10/22/2013 note) | + + [...] | Asthma | | + + + Family History + + +------+ + | [...] Lot | + +------+--------+ +--------+--------+--------+ | Khoi Diaz 10ccImplanted: | | Left: | | | 10/31/ | 600-01 | | Qty: 1 on 09/02/2012 by | | Lower | | | 2013 | 0 / | | Alton Hernandez MD at [facility] | | Leg | | | | /10/20 | | INPATIENT REV LOC | | | | | | -H136/ | | | | | | | | 137 | + +------+--------+ +--------+--------+--------+ + + | Description:manufactured by | | biocomposites | + + Results Not on filefrom Last 3 Months Insurance + +--------+ +--------+-------+---------+--------+ | Payer | Benefi | Subscriber | Effect | Phone | Address | Type | | | t Plan | ID | cindi | | | | | | / | | Dates | | | | | | Group | | | | | | + +--------+ +--------+-------+---------+--------+ | CASH APPLICATION CLERK MEDICAID | CASH APPLICATION CLERK | xxxxxxxx | Effect | | | Medica | | | [place]AST[place] | | cindi | | | id | | | [place] | | for | | | | | | | | all | | | | | | | | dates | | | | + +--------+ +--------+-------+---------+--------+ | CASH APPLICATION CLERK MEDICAID | CASH APPLICATION CLERK | xxxxxxxx | 08/11/19 | | | [...] Self | [birth year] | | [address] | | | al/Fam | | 1990 | [phone] | [place] [address] | | | [place]ayla | | | 2 (Home) | | + +--------+ +--------+ + + | Sandy Marc | Person | Self | [birth year] | | [address] | | | al/Fam | | 1990 | [phone] | [place] [address] | | | [place]la | | | [...]
--- OUTSIDE RECORDS SUMMARY | ~2019-05-28 | XMS | Encounter Summary ---
Demographics + + + | Address | [address] | | | [place] [address] | + + + | Home Phone [...] [place] | | | | | [address] | | + + + + + Care Team Providers + +------+ + | Care Clock Mechanic Name | Role | Phone | [...] | s of knee | Health | [facility] | | | | | region ([facility]) | Associates | Rd [place], | | | | | AVN | [address] | [place] | | | | | (avascular | [address] | [address] | | | | | necrosis of | [place], | | | | | | bone) ([facility]) | [place] [address] | | | | | | Pathologic | Phone: | | | | | | fracture of | [phone] | | | | | | tibia or | Fax: | | | | | | fibula | [phone] | | | | | | Septic [...] | | | | | | | PIANO TECHNICIAN | | | | | | | [place] PARTIAL | | | | | | | REMOVAL OF | | | | | | | TIBIA [place] | | | | | | | INSERTION | | | | | | | DRUG IMPLANT | | | | | | | DEVICE [place] | | | | | | | KNEE | | | | | | | SCOPE,SHAVE | | | | | | | ARTICULAR | | | | | | | CART [place] | | | | | | | [...] [place] | | | | | | [place], [place] | | | | | | [address] | | | | | | [phone] | | | +--------+---------+ + + + [...] to be followed by Dr. Peck in [place] whose PA is seeing her in clinic today [facility]. She has been compliant with non-weightbearing [...] seconds capillary refill. 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 X-RAYS: Reviewed x-rays with [...] extensiveness of her infection. DARRICK BUITRAGO MD [facility] [address] [place] [address] Mailcode: [id number] [place] [address] documented in this en counter Plan of Treatment Not on filedocumented as of this encounter Visit Diagnoses + + | Diagnosis | + + | Osteomyelitis of knee region (HCC) - Primary Unspecified osteomyelitis, lower leg | + + documented in this encounter
--- OUTSIDE RECORDS SUMMARY | ~2019-05-28 | XMS | Encounter Summary ---
Demographics + + + | Address | [address] | | | [place] [address] | + + + | Home Phone [...] [place] | | | | | [address] | | + + + + + Care Team Providers + +------+ + | Care Tufter Operator Name | Role | Phone | [...] PPV | | | | | | [address] | | | | | | [place] Mailcode: | | | | | | [id number] Physician's | | | | | | [place], | | | | | | [place] [address] | | | | | | [phone] | | | +--------+ + + + [...]
--- OUTSIDE RECORDS SUMMARY | ~2019-05-28 | XMS | Encounter Summary ---
Demographics + + + | Address | [address] | | | [place] [address] | + + + | Home Phone [...] [place] | | | | | [address] | | + + + + + Care Team Providers + +------+ + | Care Atomic Physics Professor Name | Role | Phone | [...] | | | | | | [place] [address] | | | | | | [phone] | | | +--------+ + + + [...]
--- OUTSIDE RECORDS SUMMARY | ~2019-05-28 | XMS | Encounter Summary ---
Demographics + + + | Address | [address] | | | [place] [address] | + + + | Home Phone [...] Author + + + | Author | [facility] | + + + | Organization | [facility] | + + + | Address | Unknown | + + + | Phone | Unavailable | + + + Support + + + + + | Name | Relationship | Address | Phone | + + + + + | Grisel Marc | FE | [address] | | | | | [place] | | | | | [address] | | + + + + + Care Team Providers + +------+ + | Care Traction Power Engineer Name | Role | Phone | + +------+ + | Adilia Bob BRAKES INSPECTOR | PCP | | + +------+ + Encounter Details +--------+ + + + + | Date | Type | Department | Care Team | Description | +--------+ + + + + | 10/16/ | Research Contracts Supervisor | Infectious | Brigid Hardy | Osteomyelitis of | | 2012 | | Diseases at [facility] 3rd | [place], [place] | knee region (HCC) | | | | Floor [address] [facility] | | (Primary Dx) | | | | [address] | | | | | | Mailcode: L457 | | | | | | [facility] | | | | | | [place], [place] | | | | | | [address] | | | | | | [phone] | | | +--------+ + + + [...]
--- OUTSIDE RECORDS SUMMARY | ~2019-05-28 | XMS | Encounter Summary ---
Demographics + + + | Address | [address] | | | [place] [address] | + + + | Home Phone [...] [place] | | | | | [address] | | + + + + + Care Team Providers + +------+ + | Care Hoop Riveting Machine Operator Helper Name | Role | Phone | + +------+ + | Adilia Bob DISTRIBUTION OPERATIONS SUPERVISOR | PCP | | + +------+ + Encounter Details +--------+ + + + + | Date | Type | Department | Care Team | Description | +--------+ + + + + | 03/10/ | Microbiology Soil Scientist | Orthopaedics at | Alton Hernandez MD | Osteomyelitis of | | 2012 | | [facility] [address] | | knee region (HCC) | | | | [address] | | (Primary Dx); | | | | Mailcode: [id number] | | Pathologic fracture | | | | [facility] | | of tibia or fibula | | | | Center [place], [place] | | | | | | [address] | | | | | | [phone] | | | +--------+ + + + [...] | + +---------+ + + | [facility] DEPARTMENT OF | | | | [...]
--- OUTSIDE RECORDS SUMMARY | ~2019-05-28 | XMS | Encounter Summary ---
Demographics + + + | Address | [address] | | | [place] [address] | + + + | Home Phone [...] [place] | | | | | [address] | | + + + + + Care Team Providers + +------+ + | Care Ash Worker Name | Role | Phone | + +------+ + | Adilia Bob INSURANCE SALES ASSISTANT | PCP | | + +------+ [...] [place] | | | | | | [place], [place] | | | | | | [address] | | | | | | [phone] | | | +--------+ + + + [...] + | HEMOGLOBIN | 9.8 (A) | - | NON [facility] | [...]
--- OUTSIDE RECORDS SUMMARY | ~2019-05-28 | XMS | Encounter Summary ---
Demographics + + + | Address | [address] | | | [place] [address] | + + + | Home Phone [...] + | Grisel Marc | ECON | [address] | | | | | [place] | | | | | [address] | | + + + + + Care Team Providers + +------+ + | Care Transfill Technician Name | Role | Phone | [...] anned | Sports Medicine & | MD eSlene Foy | | | | | Orthopaedic Surgery | [place] | | | | | [address] | [address] | | | | | [address] [place] | [phone] | | | | | [place] | | | | | | [address] | | | | | | [phone] | | | +--------+ + + + [...]
--- OUTSIDE RECORDS SUMMARY | ~2019-05-28 | XMS | Encounter Summary ---
Demographics + + + | Address | [address] | | | [place] [address] | + + + | Home Phone [...] [place] | | | | | [address] | | + + + + + Care Team Providers + +------+ + | Care Superintendent Concrete Mixing Plant Name | Role | Phone | + [...] pain | | 2012 | | [facility] [address] [facility] | | | | | | [address] | | | | | | Mailcode: [id number] | | | | | | [place] | | | | | | [place], [place] | | | | | | [address] | | | | | | [phone] | | | +--------+ + + + [...] | | e | of knee, left ([facility]) | | + +------+--------+ + + | SYNOVIAL FLUID, | Lab | Routin | Septic arthritis | Ordered: 02/12/2013 | | CRYSTALS | | e | of knee, left ([facility]) | | + +------+--------+ + [...]
--- OUTSIDE RECORDS SUMMARY | ~2019-05-28 | XMS | Encounter Summary ---
Demographics + + + | Address | [address] | | | [place] [address] | + + + | Home Phone [...] + | Grisel Marc | ECON | [address] | | | | | [place] | | | | | [address] | | + + + + + Care Team Providers + +------+ + | Care Ship Wirer Name | Role | Phone | + [...] | | | | [address] | [address] | | | | | [address] [place] | [phone] | | | | | [place] | | | | | | [address] | | | | | | [phone] | | | +--------+ + + + [...]
--- OUTSIDE RECORDS SUMMARY | ~2019-05-28 | XMS | Encounter Summary ---
Demographics + + + | Address | [address] | | | [place] [address] | + + + | Home Phone [...] + | Grisel Marc | ECON | [address] | | | | | [place] | | | | | [address] | | + + + + + Care Team Providers + +------+ + | Care Director Title Name | Role | Phone | + [...] | | dislocation, | [address] | | | | | right, | [address] | [place], | | | | | initial | [place], | [place] [address] | | | | | encounter | [place] | Phone: | | | | | Procedures | [address] | [phone] | | | | | PHYSICAL | Phone: | Fax: | | | | | THERAPY | [phone] | [phone] | | | | | REFERRAL | Fax: | | | | | | | [phone] | | +--------+--------+ + + + + [...] THE | | | | | | [place], | [place] | | | | | | [place] [address] | [address] | | | | | | Phone: | Phone: | | | | | | [phone] | [phone] | | | | | | Fax: | Fax: | | | | | | [phone] | [phone] | +--------+--------+ + + + + Encounter [...] | | [address] | [address] | dislocation, right, | | | | [address] | [phone] | initial encounter | | | | [place] | | | | | | [address] | | | | | | [phone] | | | +--------+---------+ + + + [...] in this encounter Patient Instructions Patient Instructions Cintyha Nicolas MD - 12/06/2015 3:41 PM PDTRight [...] | + + + | [address] | [facility] | | [place] [address] | DEPARTMENT OF | | [phone] Name: SANDY MARC Phys: | RADIOLOGY | | CINTHYA NICOLAS : 1990 Sex: F | | | CSN: [id number] MR# [id number] Exam Date: | | | 12/06/2015 EXAM: [...] Transcribed Date/Time: | | | 12/06/2015 15:56 Toll Lineman: YORDY | | + + + + + | Procedure Note | + + | Interface, Radiology Results - 12/06/2015 4:01 PM PDT [address] | | [address] [place] [address] | | Name: SANDY MARC Phys: CINTHYA NICOLAS : 1990 Sex: F | | CSN: [id number] MR# [id number] Exam Date: 12/06/2015 EXAM:X-RAY KNEE 3 VIEWS [...] | | |Transcribed Date/Time: 12/06/2015 15:56 | |Toll Lineman: FLUENCY | | | | | | [...]
--- OUTSIDE RECORDS SUMMARY | ~2019-05-28 | XMS | Encounter Summary ---
Demographics + + + | Address | [address] | | | [place] [address] | + + + | Home Phone [...] [place] | | | | | [address] | | + + + + + Care Team Providers + +------+ + | Care Hot Wire Glass Tube Cutter Name | Role | Phone | [...] + + + + | 09/04/ | [facility] | Infectious | Silvernail, Brigid | | | 2012 | | Diseases at [facility] 3rd | [place], [place] | | | | | Floor [address] | | | | | | [address] | | | | | | Mailcode: L457 | | | | | | Physicianfrank [place] | | | | | | [place], [place] | | | | | | [address] | | | | | | [phone] | | | +--------+ + + + [...]
--- OUTSIDE RECORDS SUMMARY | ~2019-05-28 | XMS | Encounter Summary ---
Demographics + + + | Address | [address] | | | [place] [address] | + + + | Home Phone [...] [place] | | | | | [address] | | + + + + + Care Team Providers + +------+ + | Care Money Examiner Name | Role | Phone | + [...] | | | necrosis of | [address] | [place] | | | | | bone) (HCC) | Rd | [address] | | | | | Septic | [place], [place] | [place], | | | | | 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[address] | [place] [address] | | | | | knee, left | | Phone: | | | | | ([facility]) | | [phone] | | | | | Procedures | | Fax: | | | | | CONSULT TO | | [phone] | | | | | INFECTIOUS | [...] | | | Osteomyeliti | Family | [address] [facility] | | | | | s of knee | Health | 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 | | | | | | | [place] PARTIAL | | | | | | | REMOVAL OF | | | | | | | TIBIA [place] | | | | | | | INSERTION | | | | | | | DRUG IMPLANT | | | | | | | DEVICE OR | | | | | | | KNEE | | | | | | | SCOPE,SHAVE | | | | | | | ARTICULAR | | | | | | | CART [place] | | | | | | | [...] | | | MD David | [address] | | | | | Osteomyeliti | [address] | [address] | | | | | s of knee | [address] | Rd | | | | | region (HCC) | Rd | Mailcode: | | | | | Procedures | [place], [place] | [address] | | | | | MRI KNEE | [address] | [place] | | | | | LT WWO CONT | Phone: | Research | | | | | | [phone] | Center | | | | | | Fax: | [place], [place] | | | | | | [phone] | [address] | | | | | | | Phone: | | | | | | | [phone] | | | | | | | Fax: | | | | | | | [phone] | +--------+--------+ + + + + Reason [...] | | Provider Per | [address] | | | | | osteomyeliti | Patient NO | [address] | | | | | s, lower leg | REFERRING | Rd [place], | | | | | L medial | PROVIDER PER | [place] | | | | | tibial | PT | [address] | | | | | plateau fx | | | +--------+--------+ + + + + Encounter Details +--------+---------+ + + + | Date | Type | Department | Care Team | Description | +--------+---------+ + + + | 08/06/ | Office | Orthopaedics at | Alton Hernandez MD | Osteomyelitis of | | 2011 | Visit | [facility] [address] | | knee region (HCC) | | | | [address] | | (Primary Dx); AVN | | | | Mailcode: [id number] | | (avascular necrosis | | | | [facility] | | of bone) ([facility]); | | | | [place], [place] | | Pathologic fracture | | | | [address] | | of tibia or fibula; | | | | [phone] | | Septic 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| [...] might be different fr om the original. [facility] Orthopaedic Clinic- New Patient Referring Physician: [...] plateau fracture by Dr. Jerald Don in [place] on 12/10/11. Calcium phosphate cement was used [...] reports of intra-operative left leg cultures from 03/12/12 that grew staph aureus (resistant t o [...] MRI w/ contrast done on 07/09/12 at [facility], but are unable to view the [...] subchondral | | | | | | T4lkhamc hyperintensity | | | | | | [...] + | [facility] - | [address] | [place] [address] | | | [place] | | | [...] [facility] | [address] | [place] [address] | | | SERVICES, CORE | PARK [...] | | | LABORATORY | | | DJIBOUTIAN | | | SERVICES, | | | [...] + | [facility] | [address] | [place] [address] | | | SERVICES, CORE | PARK [...]
--- OUTSIDE RECORDS SUMMARY | ~2019-05-28 | XMS | Encounter Summary ---
Demographics + + + | Address | [address] | | | [place] [address] | + + + | Home Phone [...] [place] | | | | | [address] | | + + + + + Care Team Providers + +------+ + | Care Button Inspector Name | Role | Phone | + +------+ + | Adilia Bob FORGE OPERATOR | PCP | | + +------+ [...] | | | | | Floor [address] [facility] | [address] | | | | | [address] | [place] [address] | | | | | Mailcode: L457 | [phone] | | | | | Physician[facility] | | | | | | [place], [place] | | | | | | [address] | | | | | | [phone] | | | +--------+ + + + [...]
--- OUTSIDE RECORDS SUMMARY | ~2019-05-28 | XMS | Encounter Summary ---
Demographics + + + | Address | [address] | | | [place] [address] | + + + | Home Phone [...] [place] | | | | | [address] | | + + + + + Care Team Providers + +------+ + | Care Director Specialty Name | Role | Phone | + +------+ + | Adilia Bob PROCEDURE RN | PCP | | + +------+ + Encounter Details +--------+ + + + + | Date | Type | Department | Care Team | Description | +--------+ + + + + | 12/08/ | English Language Learner Tutor | Infectious | Lavinia Peck, | Osteomyelitis of | | 2012 | | Diseases at [facility] 3rd | MD [address] | knee region (HCC) | | | | Floor [address] [facility] | [address] | (Primary Dx) | | | | [address] | [place] [address] | | | | | Mailcode: L457 | [phone] | | | | | Physician[facility] | | | | | | [place], [place] | | | | | | [address] | | | | | | [phone] | | | +--------+ + + + [...]
--- OUTSIDE RECORDS SUMMARY | ~2019-05-28 | XMS | Encounter Summary ---
Demographics + + + | Address | [address] | | | [place] [address] | + + + | Home Phone [...] [place] | | | | | [address] | | + + + + + Care Team Providers + +------+ + | Care Regional Medical Director Name | Role | Phone | + +------+ + | Adilia Bob FINANCIAL ANALYSIS MANAGER | PCP | | + +------+ [...] | Mary, | | | | | I&D left | Mars Lopez MD | MD Darrick | | | | | knee | [address] | [address] [facility] | | | | | synovectomy | Street | [facility] | | | | | | [address] | Rd [place], | | | | | | [place], | [place] | | | | | | [place] [address] | [address] | | | | | | Phone: | | | | | | | [phone] | | | | | | | Fax: | | | | | | | [phone] | | +--------+--------+ + + + + Encounter Details +--------+---------+ + + + | Date | Type | Department | Care Team | Description | +--------+---------+ + + + | 03/11/ | Office | Orthopaedics at | Darrick Buitrago MD | Osteomyelitis of | | 2012 | Visit | [facility] [address] | | knee region (HCC) | | | | [address] | | (Primary Dx) | | | | Mailcode: [id number] | | | | | | [facility] | | | | | | [place], [place] | | | | | | [address] | | | | | | [phone] | | | +--------+---------+ + + + [...] contrast or a knee aspi ration in [facility] but she elcted to come here for the aspiration and so this joint ap pointment with Dr. Peck from [place] was scheduled. Fortunately the knee stopped hurting [...] seconds capillary refill. Palpable dorsalis pedis and newspaper delivery counselor ior tibial pulses. X-RAYS: Reviewed x-rays with [...] today for additional details. DARRICK BUITRAGO MD [facility] [address] [place] [address] Mailcode: [id number] [place] [address] documented in this en counter Plan of Treatment Not on filedocumented as of this encounter Visit Diagnoses + + | Diagnosis | + + | Osteomyelitis of knee region (HCC) - Primary Unspecified osteomyelitis, lower leg | + + documented in this encounter
--- OUTSIDE RECORDS SUMMARY | ~2019-05-28 | XMS | Encounter Summary ---
Demographics + + + | Address | [address] | | | [place] [address] | + + + | Home Phone [...] [place] | | | | | [address] | | + + + + + Care Team Providers + +------+ + | Care Provisioning Specialist Name | Role | Phone | + +------+ + | Adilia Bob CONTACT LENS BLOCKER AND CUTTER | PCP | | + +------+ + [...] | | | | necrosis of | [facility] | [place] | | | | | bone) ([facility]) | Rd | [address] | | | | | Septic | [place], [place] | [place], | | | | | 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[address] | [place] [address] | | | | | knee, left | | Phone: | | | | | ([facility]) | | [phone] | | | | | Procedures | | Fax: | | | | | CONSULT TO | | [phone] | | | | | INFECTIOUS | [...] use of antibiotics | | | | [place], [place] | | | | | | [address] | | | | | | [phone] | | | +--------+---------+ + + + [...] CLINIC FOLLOW UP Primary Care Physician: [facility] [address], [address] [place] [address] Ms. Marc presents to Infectious Diseases Clinic regarding scheduled follow up. The patient was seen in conjunction with Dr. Alton Hernandez today. The following history was obtained prior to today's OPAT visit from my own review of the bethany perez's recent [facility] hospital admission, including but not [...] doing rodeo on her horse going around [place], and she was leaning out away from [employer]. Her legs spontaneously broke with pathological fracture. She had a tibial platea u fracture. This was mended with a screw and cement. However, the wounds then never healed a nd drained. She has subsequently had surgery. She had the first surgery on December 09, January 09, an d then April 14 was [...] antibiotic beads 09/03/2012: HIRAM Silva [facility] Operative Findings: We began by performing a [...] intramedullary canal. We then used our canal governor assembler hydraulic to thoroughly washout the intramedullary canal as [...] She was seen in the ER in [place] and had a CT Thor ax that [...] care provider and surgeon. Brigid Hardy PA-C [facility] Department of Infectious Diseases Outpatient IV Antibiotic Therapy Clinic (OPAT) [phone] Pager ID: [id number] [address] Mail Code L[address] [place] [address] documented in this encounter Plan of Treatment Not on filedocumented as of this encounter Visit Diagnoses + + | Diagnosis | + + | Osteomyelitis of knee region (HCC) - Primary Unspecified osteomyelitis, lower leg | + + | Encounter for long-term (current) use of antibiotics | + + documented in this encounter
--- OUTSIDE RECORDS SUMMARY | ~2019-05-28 | XMS | Encounter Summary ---
Demographics + + + | Address | [address] | | | [place] [address] | + + + | Home Phone [...] [place] | | | | | [address] | | + + + + + Care Team Providers + +------+ + | Care Radiology Technician Name | Role | Phone | [...] | | | | | Septic | [place], [place] | [place], | | | | | 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[address] | [place] [address] | | | | | knee, left | | Phone: | | | | | ([facility]) | | [phone] | | | | | Procedures | | Fax: | | | | | CONSULT TO | | [phone] | | | | | INFECTIOUS | [...] | | | Osteomyeliti | Family | [address] [facility] | | | | | s of knee | Health | [facility] | | | | | region ([facility]) | Associates | Rd [place], | | | | | AVN | [address] | [place] | | | | | (avascular | [address] | [address] | | | | | necrosis of | [place], | | | | | | bone) ([facility]) | [place] [address] | | | | | | Pathologic | Phone: | | | | | | fracture of | [phone] | | | | | | tibia or | Fax: | | | | | | fibula | [phone] | | | | | | Septic [...] | | | | | | | SAMPLING EXPERT | | | | | | | [...] | | | | | Procedures | [place], [place] | [address] | | | | | MRI KNEE | [address] | [place] | | | | | LT W[address] CONT | Phone: | Research | | | | | | [phone] | Center | | | | | | Fax: | [place], [place] | | | | | | [phone] | [address] | | | | | | | Phone: | | | | | | | [phone] | | | | | | | Fax: | | | | | | | [phone] | +--------+--------+ + + + + Reason [...] s, lower leg | REFERRING | Rd [place], | | | | | L medial | PROVIDER PER | [place] | | | | | tibial | PT | [address] | | | | | plateau fx [...] [facility] | | of bone) ([facility]); | | | | [place], [place] | | Pathologic fracture | | | | [address] | | of tibia or fibula; | | | | [phone] | | Septic 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| | | | | knee, left ([facility]) | +--------+---------+ + + + Social History [...] might be different fr om the original. [facility] Orthopaedic Clinic- New Patient Referring [...] plateau fracture by Dr. Jerald Don in [place] on 12/10/11. Calcium phosphate cement was used [...] MRI w/ contrast [facility] on 07[facility]09/[facility], but are unable to view [...] subchondral | | | | | | [id number] hyperintensity | | | | | | [...] + | [facility] - | [address] | [place] [address] | | | [place] | | | [...] [facility] | [address] | [place] [address] | | | SERVICES, CORE | PARK [...] | | | LABORATORY | | | CUBAN | | | SERVICES, | | | [...] [facility] | [address] | [place] [address] | | | SERVICES, CORE | PARK [...]
--- OUTSIDE RECORDS SUMMARY | ~2019-05-28 | XMS | Encounter Summary ---
Demographics + + + | Address | [address] | | | [place] [address] | + + + | Home Phone [...] Author + + + | Author | [facility] | + + + | Organization | [facility] | + + + | Address | Unknown | + + + | Phone | Unavailable | + + + Support + + + + + | Name | Relationship | Address | Phone | + + + + + | Grisel Marc | FE | [address] | | | | | [place] | | | | | [address] | | + + + + + Care Team Providers + +------+ + | Care Ophthalmology Technician Name | Role | Phone | [...] Visit | Medicine Clinic at | R, PEWTER FABRICATOR [address] [facility] | pre-operative | | | | M[facility] 4th Floor Day | [address] | examination (Primary | | | | Stay [address] [facility] | [place], [place] | Dx); Septic | | | | [address] | [address] | arthritis of knee, | | | | Mailcode: [id number] | [phone] | left ([facility]); AVN | | | | Jeri [address] | | (avascular necrosis | | | | [address] [place], [place] | | of bone) ([facility]); | | | | [address] | | Osteomyelitis of | | | | [phone] | | knee region ([facility]); | | | | | | Asthma | +--------+---------+ + + + Anesthesia Record + + + + + | Procedure Name | Responsible | Anesthesia Start | Anesthesia Stop Time | | | Anesthesiologist | Time | | + + + + + | IRRIGATION AND | Shakila Burgos MD | 09/02/12 1407 | 09/02/12 3475 | | DEBRIDEMENT OF LEFT | | [...] or walk. Surgery Check in Locations Admitting [facility], ninth floor [facility] Surgery Check in Time: The Preoperative Medicine [...] it is after office hours, call the [facility] planting machine operator at [phone] and ask them to page him or h er. Preparing For Your Surgery Video -- 7 minutes of instructions! If you have access to the Internet and would like to review our instructional video about g etting ready for your procedure day, please follow these directions: Access the [facility] website [email or web address] --> POPULAR RESOURCES --> Patient Guide [...] and PMHX. Document will be scanned in [employer]. Pulmonary: Within Defined Limits except as noted [...] further investigation and manageme nt. A. Acute HI within 7 days: no B. Unstable angina/Recent HI (7- 30 days): no C. Decompensated CHF: [...] no Rate of cardiac , non fatal HI, non fatal cardiac arrest (RCRI) 0 risk [...] to this patient's care. MAIRA ZHAO NP [facility] [address] [facility] [address] [phone] signed by Maira Zhao NP at 08/24/2012 [...] + | Septic arthritis of knee, left ([facility]) Pyogenic arthritis, lower leg | + + | AVN (avascular necrosis of bone) ([facility]) Aseptic necrosis of bone, site unspecified | + + | Osteomyelitis of knee region (HCC) Unspecified osteomyelitis, lower leg | + + | Asthma | + + documented in this encounter
--- OUTSIDE RECORDS SUMMARY | ~2019-05-28 | XMS | Encounter Summary ---
Demographics + + + | Address | [address] | | | [place] [address] | + + + | Home Phone [...] + | Grisel Marc | ECON | [address] | | | | | [place] | | | | | [address] | | + + + + + Care Team Providers + +------+ + | Care Private Duty Nurse Name | Role | Phone | [...] | | | | [address] | [address] | | | | | [address] [place] | [phone] | | | | | [place] | | | | | | [address] | | | | | | [phone] | | | +--------+ + + + [...]
--- OUTSIDE RECORDS SUMMARY | ~2019-05-28 | XMS | Encounter Summary ---
Demographics + + + | Address | [address] | | | [place] [address] | + + + | Home Phone [...] + | Grisel Marc | ECON | [address] | | | | | [place] | | | | | [address] | | + + + + + Care Team Providers + +------+ + | Care Sales Promotion Manager Name | Role | Phone | [...] [place] | | | | | [address] | [address] | | | | | | [phone] | | | | | | | [...] | | Results for this | | [address] | e | 10:19 AM | | procedure are in the | | | | PST | | results section. | + +--------+ + + + documented in this encounter Results ORT KNEE 3V [id number] (07/14/2015 10:19 AM PST) + + | Specimen | + + | | + + + + + | Narrative | Performed At | + + + | Name: | [facility] | | SANDY MARC | DEPARTMENT OF | | Phys: Mars Nicolas MD | RADIOLOGY | | | | | : 1990 Age: 24 Sex: F | | | Acct: [id number] Loc: ORTH | | | | | | Exam Date: 07/14/2015 Status: PRE CLI | | | Radiology No: [id number] | | | Unit No: | | | EXAM# TYPE/EXAM | | | RESULT | | | [id number] ORT/ORT KNEE 3V 73 | | | EXAM: ORT | | | KNEE 3V 44920 CLINICAL HISTORY: | | | Knee pain. [...] | Transcribed Date/Time: 07/14/2015 | | | (6058) High School Social Studies Tutor: FLUENCY PAGE 1 | | | Signed Report | | | | | + + + + + | Procedure Note | + + | Interface, Radiology Results - 12/21/2015 11:29 AM PDT | | Name: SANDY MARC | | Phys: Mars Nicolas MD : | | 1990 Age: 24 Sex: F Acct: [id number] | | Loc: ORTH Exam Date: 07/14/2015 | | Status: PRE CLI Radiology No: [id number] | | Unit No: EXAM# TYPE/EXAM | | RESULT [id number] ORT/ORT KNEE 3V | | 73 EXAM: ORT KNEE 3V | | [id number] CLINICAL HISTORY: Knee pain. Subacute injury. COMPARISON: [...] | | | Transcribed Date/Time: 07/14/2015 (1022) High School Social Studies Tutor: FLUENCY PAGE 1 | | Signed Report [...] | | | | Transcribed Date/Time: 07/14/2015 (1672) | | High School Social Studies Tutor: YORDY | | | | | | [...]
--- OUTSIDE RECORDS SUMMARY | ~2019-05-28 | XMS | Encounter Summary ---
Demographics + + + | Address | [address] | | | [place] [address] | + + + | Home Phone [...] [place] | | | | | [address] | | + + + + + Care Team Providers + +------+ + | Care Ice Cream Scooper Name | Role | Phone | + [...] | | | | | | [place] [address] | | | | | | [phone] | | | +--------+ + + + [...]
--- OUTSIDE RECORDS SUMMARY | ~2019-05-28 | XMS | Encounter Summary ---
Demographics + + + | Address | [address] | | | [place] [address] | + + + | Home Phone [...] [place] | | | | | [address] | | + + + + + Care Team Providers + +------+ + | Care Ball Rolling Machine Operator Name | Role | Phone | + +------+ + | Adilia Bob WOOD FLOOR LAYER | PCP | | + +------+ [...] | | | | | Septic | [place], [place] | Milena | | | | | 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[address] | [place] [address] | | | | | knee, left | | Phone: | | | | | ([facility]) | | [phone] | | | | | Procedures | | Fax: | | | | | CONSULT TO | | [phone] | | | | | INFECTIOUS | [...] [address] | knee region ([facility]) | | | | Floor [address] | [address] | (Primary Dx) | | | | [address] | [place] [address] | | | | | Mailcode: L457 | [phone] | | | | | [facility] | | | | | | [place], [place] | | | | | | [address] | | | | | | [phone] | | | +--------+---------+ + + + [...] Lavinia Peck MD - 08/25/2012 10:10 PM [facility] Clinic Date: 08/25/2012 Clinic: Infectious Disease I [...] Lavinia Peck M.D., Ph.D. MALLORY / HYACINTH [id number] / [id number] / [id number] / Lavinia Lam MD - 08/25/2012 9:30 AM PST This office note has been dictated. [facility] #: [id number] I spent 45 minutes with the patient [...] Ag and HIV-1,2 Ab not detected. | [facility] | | | LABORATORY | | | SERVICES, | | | SPECIAL IMM + | | | COAG | + + + + + + + + | Performing | Address | City/State/Zipcode | Phone Number | | Organization | | | | + + + + + | [facility] | [address] | [place] [address] | | | SERVICES, SPECIAL | JOY [...] Directory | | | | | | ([place]). | | | | + + + [...] Directory | | | | | | ([place]). | | | | + + + [...] | | | | | in the [facility] | | | | | | LaboratoryTest Directory | | | | | | ([facility] [place]). | | | | + + + [...] # | | | | | | [phone]). Access | | | | | | complete set of age- | | | | | | and/or | | | | | | gender-specificreference | | | | | | intervals for this test | | | | | | in the [facility] | | | | | | LaboratoryTest Directory | | | | | | ([facility]).Performed | | | | | | by [facility] | | | | | | [facility] | | | | | | [place] [address] | | | | | | [phone]. | | | | | | [facility], Magy Fernandez, | | | | | [...] [facility] | [address] | [place], [place] | | | [facility] | | [address] | | + + + + + [...] - | | | | | | [facility] | | + +-------+ + + + + + | Specimen | + + | Blood - Blood | + + + + + + + | Performing | Address | City/State/Zipcode | Phone Number | | Organization | | | | + + + + + | [employer] [facility] - | [address] | [place] [address] | | | [facility] | | | | + + + + + documented in this encounter Visit Diagnoses + + | Diagnosis | + + | Osteomyelitis of knee region (HCC) - Primary Unspecified osteomyelitis, lower leg | + + documented in this encounter"
--- OUTSIDE RECORDS SUMMARY | ~2019-05-28 | XMS | Encounter Summary ---
Demographics + + + | Address | [address] | | | [place] [address] | + + + | Home Phone [...] [place] | | | | | [address] | | + + + + + Care Team Providers + +------+ + | Care Box Toe Flanger Stitchdowns Name | Role | Phone | + +------+ + | No Pcp Per Patient | PCP | Unavailable | + +------+ + Encounter Details +--------+ + + + + | Date | Type | Department | Care Team | Description | +--------+ + + + + | 07/21/ | Loan Secretary | Orthopaedics at | [place] Hernandez MD | Leg pain (Primary | | 2011 | | [facility] [address] | | Dx) | | | | [address] | | | | | | Mailcode: [id number] | | | | | | [facility] | | | | | | [place], [place] | | | | | | [address] | | | | | | [phone] | | | +--------+ + + + [...]
--- OUTSIDE RECORDS SUMMARY | ~2019-05-28 | XMS | Encounter Summary ---
Demographics + + + | Address | [address] | | | [place] [address] | + + + | Home Phone [...] [place] | | | | | [address] | | + + + + + Care Team Providers + +------+ + | Care Scholastic Aptitude Test Grader Name | Role | Phone | [...] [place] | | | | | Floor [address] | | | | | | [address] | | | | | | Mailcode: L457 | | | | | | [facility] | | | | | | [place], [place] | | | | | | [address] | | | | | | [phone] | | | +--------+ + + + [...]
--- OUTSIDE RECORDS SUMMARY | ~2019-05-28 | XMS | Encounter Summary ---
Demographics + + + | Address | [address] | | | [place] [address] | + + + | Home Phone [...] [place] | | | | | [address] | | + + + + + Care Team Providers + +------+ + | Care Sand Shoveler Name | Role | Phone | + +------+ + | Adilia Bob GRANTS ANALYST | PCP | | + +------+ + [...] [place] | | | | | | [place], [place] | | | | | | [address] | | | | | | [phone] | | | +--------+ + + + [...]
--- OUTSIDE RECORDS SUMMARY | ~2019-05-28 | XMS | Encounter Summary ---
Demographics + + + | Address | [address] | | | [place] [address] | + + + | Home Phone [...] [place] | | | | | [address] | | + + + + + Care Team Providers + +------+ + | Care Senior Managing Director Name | Role | Phone | [...] | +--------+ + + + + | 12/04/ | Telephone | Orthopaedics at | [place] Hernandez MD | Postoperative | | 2012 | | [facility] [address] | | infection | | | | [address] | | | | | | Mailcode: PV430 | | | | | | [facility] | | | | | | [place], [place] | | | | | | [address] | | | | | | [phone] | | | +--------+ + + + [...]
--- OUTSIDE RECORDS SUMMARY | ~2019-05-28 | XMS | Encounter Summary ---
Demographics + + + | Address | [address] | | | [place] [address] | + + + | Home Phone [...] [place] | | | | | [address] | | + + + + + Care Team Providers + +------+ + | Care Biological Lab Technician Name | Role | Phone | + +------+ + | Adilia Bob LINE UP EXAMINER | PCP | | + +------+ + [...] [place] | | | | | | [place], [place] | | | | | | [address] | | | | | | [phone] | | | +--------+ + + + [...]
--- OUTSIDE RECORDS SUMMARY | ~2019-05-28 | XMS | Encounter Summary ---
Demographics + + + | Address | [address] | | | [place] [address] | + + + | Home Phone [...] + | Grisel Marc | ECON | [address] | | | | | [place] | | | | | [address] | | + + + + + Care Team Providers + +------+ + | Care Assembler Carbon Brushes Name | Role | Phone | + +------+ + | Hina Peterson | PCP | | + +------+ + Encounter Details +--------+ + + + + | Date | Type | Department | Care Team | Description | +--------+ + + + + | 12/05/ | Hospital | [facility] | | | | 2015 | Encounter | Sports Medicine & | | | | | | Orthopaedic Surgery | | | | | | [address] | | | | | | [place] | | | | | | [address] | | | | | | [phone] | | | +--------+ + + + [...]
--- OUTSIDE RECORDS SUMMARY | ~2019-05-28 | XMS | Encounter Summary ---
Demographics + + + | Address | [address] | | | [place] [address] | + + + | Home Phone [...] [place] | | | | | [address] | | + + + + + Care Team Providers + +------+ + | Care Debt And Budget Counselor Name | Role | Phone | [...] Encounter | | 2012 | | [facility] [address] | | - Disregard | | | | [address] | | | | | | Mailcode: [id number] | | | | | | [facility] [place] | | | | | | [place] | | | | | | [address] | | | | | | [phone] | | | +--------+ + + + [...]
--- OUTSIDE RECORDS SUMMARY | ~2019-05-28 | XMS | Encounter Summary ---
Demographics + + + | Address | [address] | | | [place] [address] | + + + | Home Phone [...] [place] | | | | | [address] | | + + + + + Care Team Providers + +------+ + | Care Casualty Insurance Claim Adjuster Name | Role | Phone | + +------+ + | Adilia Bob OCCUPATIONAL HEALTH AND SAFETY OFFICER | PCP | | + +------+ + [...] | | | | | Floor [address] [facility] | [address] | | | | | [address] | [place] [address] | | | | | Mailcode: L457 | [phone] | | | | | [facility] | | | | | | [place], [place] | | | | | | [address] | | | | | | [phone] | | | +--------+ + + + [...]
--- OUTSIDE RECORDS SUMMARY | ~2019-05-28 | XMS | Encounter Summary ---
Demographics + + + | Address | [address] | | | [place] [address] | + + + | Home Phone [...] [place] | | | | | [address] | | + + + + + Care Team Providers + +------+ + | Care Exterior Interior Specialist Name | Role | Phone | [...] + + + + | 09/04/ | Director Of Staff Development | Infectious | [place], Brigid | | | 2012 | | Diseases at [facility] 3rd | [place] | | | | | Floor [address] | | | | | | [address] | | | | | | Mailcode: L457 | | | | | | Physicianfr[facility] Willis | | | | | | [place], [place] | | | | | | [address] | | | | | | [phone] | | | +--------+ + + + [...]
--- OUTSIDE RECORDS SUMMARY | ~2019-05-28 | XMS | Encounter Summary ---
Demographics + + + | Address | [address] | | | [place] [address] | + + + | Home Phone [...] Grisel Marc | ECON | [address] | | | | | [place] | | | | | [address] | | + + + + + Care Team Providers + +------+ + | Care Condominium Association Manager Name | Role | Phone | [...] + + | 02/07/ | Telephone | Gayla Edge | Mars Nicolas, | Prior Authorization | | 2016 | | Sports Medicine & | MD Selene Foy | Request - Imaging | | | | Orthopaedic Surgery | [address] [place] | (Rt Knee MRI Exam) | | | | [address] | [address] | | | | | [address] | [phone] | | | | | [place] | | | | | | [address] | | | | | | [phone] | | | +--------+ + + + [...]
--- OUTSIDE RECORDS SUMMARY | ~2019-05-28 | XMS | Encounter Summary ---
Demographics + + + | Address | [address] | | | [place] [address] | + + + | Home Phone [...] + | Grisel Marc | ECON | [address] | | | | | [place] | | | | | [address] | | + + + + + Care Team Providers + +------+ + | Care Service Tech/Welder Name | Role | Phone | + [...] | | | | [address] | [address] | | | | | [address] | [phone] | | | | | [place] | | | | | | [address] | | | | | | [phone] | | | +--------+ + + + [...]
--- OUTSIDE RECORDS SUMMARY | ~2019-05-28 | XMS | Encounter Summary ---
Demographics + + + | Address | [address] | | | [place] [address] | + + + | Home Phone [...] Grisel Marc | ECON | [address] | | | | | [place] | | | | | [address] | | + + + + + Care Team Providers + +------+ + | Care Soda Fountain Operator Name | Role | Phone | [...] [place] | | | | | [address] | [address] | | | | | | [phone] | | | | | | | [...] | | Results for this | | [address] | e | 10:19 AM | | procedure are in the | | | | PST | | results section. | + +--------+ + + + documented in this encounter Results ORT KNEE 3V 17931 (07/14/2015 10:19 AM PST) + + | Specimen | + + | | + + + + + | Narrative | Performed At | + + + | Name: | [facility] | | SANDY MARC | DEPARTMENT OF | | Phys: Mars Nicolas MD | RADIOLOGY | | | | | : 1990 Age: 24 Sex: F | | | Acct: [id number] Loc: ORTH | | | | | | Exam Date: 07/14/2015 Status: PRE CLI | | | Radiology No: [id number] | | | Unit No: | | | EXAM# TYPE/EXAM | | | RESULT | | | [id number] ORT/ORT KNEE 3V 73 | | | EXAM: ORT | | | KNEE 3V 19899 CLINICAL HISTORY: | | | Knee pain. [...] SYSTEM 07/14/2015 | | | Reported By: Kristina Robertson MD | | | Technologist: JULIO PELLETIER | | | Electronically signed by: Kristian | | | Ailyn FORRESTER CC: Mars Nicolas MD; Sonal | | | Alex Escalante MD | | | | | | Transcribed Date/Time: 07/14/2015 | | | (4125) Investment Professional: FLUENCY PAGE 1 | | | Signed Report | | | | | + + + + + | Procedure Note | + + | Interface, Radiology Results - 12/21/2015 11:29 AM PDT | | Name: SANDY MARC | | Phys: Mars Nicolas MD : | | 1990 Age: 24 Sex: F Acct: [id number] | | Loc: ORTH Exam Date: 07/14/2015 | | Status: PRE CLI Radiology No: [id number] | | Unit No: EXAM# TYPE/EXAM | | RESULT [id number] ORT/ORT KNEE 3V | | 73 EXAM: ORT KNEE 3V | | [id number] CLINICAL HISTORY: Knee pain. Subacute injury. COMPARISON: [...] | | | Transcribed Date/Time: 07/14/2015 (1022) Investment Professional: FLUENCY PAGE 1 | | Signed Report [...] | | | | Transcribed Date/Time: 07/14/2015 (1982) | | Investment Professional: YORDY | | | | | | [...]
--- OUTSIDE RECORDS SUMMARY | ~2019-05-28 | XMS | Encounter Summary ---
Demographics + + + | Address | [address] | | | [place] [address] | + + + | Home Phone [...] [place] | | | | | [address] | | + + + + + Care Team Providers + +------+ + | Care Cover Making Machine Operator Name | Role | [...] [address] | | | | | | [place], [place] | | | | | | [address] | | | | | | [phone] | | | +--------+ + + + [...]
--- OUTSIDE RECORDS SUMMARY | ~2019-05-28 | XMS | Clinical Summary ---
Demographics + + + | Address | [address] | | | [place] [address] | + + + | Home Phone [...] Grisel Marc | ECON | [address] | | | | | [place] | | | | | [address] | | + + + + + Care Team Providers + +------+ + | Care Insurance Examining Clerk Name | Role | Phone | + +------+ + | Hina Peterson | PCP | | + +------+ + Source Comments FLIP is fully live on both EpicCare Ambulatory and EpicCare InPatient.[facility] Allergies + + + + [...] | Possible avascular necrosis. Recommended referral to [facility] | | (10/22/2013 note) | + [...] / | | Alton Hernandez MD at [facility] | | Leg | | | [...] | | | + +--------+ +--------+-------+---------+--------+ | [employer]ICAID | [employer] | xxxxxxxx | Effect | | | Medica | | | [place]AST[place] | | cindi | | | id | | | [place] | | for | | | | | | | | all | | | | | | | | dates | | | | + +--------+ +--------+-------+---------+--------+ | [employer]ICAID | W[employer]ER | xxxxxxxx | 08/11/19 | | | [...] | 1990 | [id number] | [place] [address] | | | nayla | | | 2 (Home) | | + +--------+ +--------+ + + | Sandy Marc | Person | Self | [birth year] | | [address] | | | al/Fam | | 1990 | [phone] | [place] [address] | | | nayla | | | [...]
--- OUTSIDE RECORDS SUMMARY | ~2019-05-28 | XMS | Encounter Summary ---
Demographics + + + | Address | [address] | | | [place] [address] | + + + | Home Phone [...] [place] | | | | | [address] | | + + + + + Care Team Providers + +------+ + | Care Linen Keeper Name | Role | Phone | + +------+ + | Adilia Bob FACILITIES MECHANICAL DESIGN ENGINEER | PCP | | + +------+ [...] | | | | | Procedures | [place], [place] | [address] | | | | | MRI KNEE | [address] | [place] | | | | | [address] WWO CONT | Phone: | Research | | | | | | [phone] | [place] | | | | | | Fax: | [place], [place] | | | | | | [phone] | [address] | | | | | | | Phone: | | | | | | | [phone] | | | | | | | Fax: | | | | | | | [phone] | +--------+--------+ + + + + Encounter Details +--------+ + + + + | Date | Type | Department | Care Team | Description | +--------+ + + + + | 08/24/ | Hospital | Diagnostic Imaging | | | | 2012 | Encounter | Services at [facility] | | | | | | [address] | | | | | | [place] Mailcode: | | | | | | [address] [place] | | | | | | [facility] | | | | | | [place], [place] | | | | | | [address] | | | | | | [phone] | | | +--------+ + + + [...] subchondral | | | | | | [id number] hyperintensity | | | | | | [...]
--- OUTSIDE RECORDS SUMMARY | ~2019-05-28 | XMS | Encounter Summary ---
Demographics + + + | Address | [address] | | | [place] [address] | + + + | Home Phone [...] [place] | | | | | [address] | | + + + + + Care Team Providers + +------+ + | Care Booth Cashier Name | Role | Phone | [...] | | | | | Health | [facility] | | | | | | Associates | Rd | | | | | | [address] | [place], [place] | | | | | | [address] | [address] | | | | | | [place], | | | | | | | [place] [address] | | | | | | | Phone: | | | | | | | [phone] | | | | | | | Fax: | | | | | | | [phone] | | +--------+--------+ + + + + [...] (HCC) | | | | Floor [address] [facility] | [address] | (Primary Dx) | | | | [address] | [place] [address] | | | | | Mailcode: L457 | [phone] | | | | | [facility] | | | | | | [place], [place] | | | | | | [address] | | | | | | [phone] | | | +--------+---------+ + + + [...] FOLLOW UP Referrring Physician: [place] Hernandez MD [address] [place] [address] Primary Care Physician: Family [facility] [address], [address] [place] [address] Ms. Marc presents to Infectious Diseases Clinic regarding scheduled follow up. History other than "Interim History" below is directly copied from previous ID notes to darya mcdonough. In addition I reviewed the history from the patient's [facility] admiss ion, including but not [...] below on 09/02/2012. She grew out . /6 Staphylococcus aureus Cefazolin S Clindamycin S Erythroycin [...] She was seen in the ER in [place] and had a CT Thor ax that [...] described above. ZOEY PECK MD INFECTIOUS DISEASES [address] [place] [address] Mailcode: [address] [place] [address] documented in this e ncounter Plan of Treatment Not on filedocumented as of this encounter Visit Diagnoses + + | Diagnosis | + + | Osteomyelitis of knee region (HCC) - Primary Unspecified osteomyelitis, lower leg | + + documented in this encounter
--- OUTSIDE RECORDS SUMMARY | ~2019-05-28 | XMS | Encounter Summary ---
Demographics + + + | Address | [address] | | | [place] [address] | + + + | Home Phone [...] + + + | Author | [facility] | + + + | Organization | [facility] | + + + | Address | Unknown | + + + | Phone | Unavailable | + + + Support + + + + + | Name | Relationship | Address | Phone | + + + + + | Grisel Marc | FE | [address] | | | | | [place] | | | | | [address] | | + + + + + Care Team Providers + +------+ + | Care Injection Mold Tooling Technician Name | Role | Phone | [...] [address] | | | | | | [place], [place] | | | | | | [address] | | | | | | [phone] | | | +--------+ + + + [...]
--- OUTSIDE RECORDS SUMMARY | ~2019-05-28 | XMS | Encounter Summary ---
Demographics + + + | Address | [address] | | | [place] [address] | + + + | Home Phone [...] [place] | | | | | [address] | | + + + + + Care Team Providers + +------+ + | Care Hand Coper Name | Role | Phone | + [...] of tibia or | | | | [place], [place] | | fibula; | | | | [address] | | Osteomyelitis of | | | | [phone] | | knee region (HCC); | | | | | | Septic 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| | | | | knee, left (HCC); | | | | | | AVN (avascular | | | | | | necrosis of bone) | | | | | | ([facility]) | +--------+---------+ + + + Social History [...] surgeries scheduled to take place on the [place] at the [facility]: Surgeries scheduled in the [facility] ([address] [place] [address]): registration is located on the 4th floor of [facility] (Day Surgery). Surgeries scheduled in the [facility]: registration is located on the 9th floor. Surgeries scheduled in [facility]: registration is located on the 6th floor. Surgeries scheduled in the [facility]: registration is located i n the [facility] on the first floor. For surgeries scheduled to take place at the [facility]: registration is l [...] you use specialized [facility], please check with your provider before [...] in conjunction with Dr. Jovany almanzar from [place]. Her HPI is copied from her previous [...] plateau fracture by Dr. Jerald Don in [place] on 12/10/11. Calcium phosphate cement was used [...] She has already been cleared by the [facility] clinic yesterday. Surge ry is scheduled for [...]
--- OUTSIDE RECORDS SUMMARY | ~2019-05-28 | XMS | Encounter Summary ---
Demographics + + + | Address | [address] | | | [place] [address] | + + + | Home Phone [...] [place] | | | | | [address] | | + + + + + Care Team Providers + +------+ + | Care Sales And Marketing Agent Name | Role | Phone | [...] P[facility] | | | | | | [address] | | | | | | [place] Mailcode: | | | | | | [address] Physician's | | | | | | [place], | | | | | | [place] [address] | | | | | | [phone] | | | +--------+ + + + [...]
--- OUTSIDE RECORDS SUMMARY | ~2019-05-28 | XMS | Encounter Summary ---
Demographics + + + | Address | [address] | | | [place] [address] | + + + | Home Phone [...] [place] | | | | | [address] | | + + + + + Care Team Providers + +------+ + | Care Seo Specialist Name | Role | Phone | [...] | region ([facility]) | Associates | Rd [place], | | | | | AVN | [address] | [place] | | | | | (avascular | [address] | [address] | | | | | necrosis of | [place], | | | | | | bone) ([facility]) | [place] [address] | | | | | | Pathologic | Phone: | | | | | | fracture of | [phone] | | | | | | tibia or | Fax: | | | | | | fibula | [phone] | | | | | | Septic [...] | | | | | | | EMISSIONS TESTING AND REPAIR TECHNICIAN | | | | | | [...] [place] | | | | | | [place], [place] | | | | | | [address] | | | | | | [phone] | | | +--------+---------+ + + + [...] to be followed by Dr. Peck in [place] whose PA is seeing her in clinic today [facility]. She has been compliant with non-weightbearing with [...] seconds capillary refill. Palpable dorsalis pedis and director business travel ior tibial pulses. X-RAYS: Reviewed x-rays with [...] extensiveness of her infection. DARRICK BUITRAGO MD [facility] [address] [place] [address] Mailcode: [address] [place] [address] documented in this en counter Plan of Treatment Not on filedocumented as of this encounter Visit Diagnoses + + | Diagnosis | + + | Osteomyelitis of knee region (HCC) - Primary Unspecified osteomyelitis, lower leg | + + documented in this encounter
--- OUTSIDE RECORDS SUMMARY | ~2019-05-28 | XMS | Encounter Summary ---
Demographics + + + | Address | [address] | | | [place] [address] | + + + | Home Phone [...] [place] | | | | | [address] | | + + + + + [...] [facility] | | | | | | [address] | | | | | | [place] Mailcode: | | | | | | [address] Physician's | | | | | | [place], | | | | | | [place] [address] | | | | | | [phone] | | | +--------+ + + + [...]
--- OUTSIDE RECORDS SUMMARY | ~2019-05-28 | XMS | Clinical Summary ---
Demographics + + + | Address | [address] | | | [place] [address] | + + + | Home Phone | | + + + | Preferred Language | Unknown | + + + | Marital Status | Single | + + + | Jewish Affiliation | Unknown | + + + | Race | Unknown | + + + | Ethnic Group | Unknown | + + + Author + + + | Author | [facility] [employer] (Historical as of | | | 03-27-19) | + + + | Organization | [facility] [employer] (Historical as of | | | 03-27-19) [...] Team Providers + +------+ + | Care Truck Driver Helper Name | Role | Phone [...] + | Maternal Aunt | | | [place] | | | | (Age | | [...] +------+-------+ + | MEDICAID | POER | [id number] | | | [address] | | | N | | | | [place]YAH [place] | | | [place] | | | | [address] | | | PAPER GOODS MACHINE SET UP OPERATOR | | | | | + +--------+ [...] | nayla | | | [address] | [address] | + +--------+ +--------+ + +
--- OUTSIDE RECORDS SUMMARY | ~2019-05-28 | XMS | Encounter Summary ---
Demographics + + + | Address | [address] | | | [place] [address] | + + + | Home Phone [...] [place] | | | | | [address] | | + + + + + Care Team Providers + +------+ + | Care Developer Automatic Name | Role | Phone | + +------+ + | Adilia Bob GROUP SALES REPRESENTATIVE | PCP | | + +------+ + Encounter Details +--------+ + + + + | Date | Type | Department | Care Team | Description | +--------+ + + + + | 10/16/ | Mailer | Infectious | Brigid Hardy | Osteomyelitis of | | 2012 | | Diseases at [facility] 3rd | [place], [place] | knee region (HCC) | | | | Floor [address] [facility] | | (Primary Dx) | | | | [address] | | | | | | Mailcode: L457 | | | | | | Phys[facility]'s Pavilion | | | | | | [place], [place] | | | | | | [address] | | | | | | [phone] | | | +--------+ + + + [...]
--- OUTSIDE RECORDS SUMMARY | ~2019-05-28 | XMS | Encounter Summary ---
Demographics + + + | Address | [address] | | | [place] [address] | + + + | Home Phone [...] + | Grisel Marc | ECON | [address] | | | | | [place] | | | | | [address] | | + + + + + Care Team Providers + +------+ + | Care Vascular Technologist Name | Role | Phone | [...] | | | | of right | [address] | | | | | patella, | [address] | | | | | initial | [place], [place] | [place] | | | | | encounter | [address] | [address] | | | | | Pain in | Phone: | Phone: | | | | | right knee | [phone] | [phone] | | | | | | Fax: | Fax: | | | | | | [phone] | [phone] | +--------+--------+ + + + + Encounter Details +--------+---------+ + + + | Date | Type | Department | Care Team | Description | +--------+---------+ + + + | 02/21/ | Office | [facility] | Mars Nicolas, | Patellar | | 2016 | Visit | Sports Medicine & | [address] | dislocation, right, | | | | Orthopaedic Surgery | Blvd [place] | subsequent encounter | | | | [address] | [address] | (Primary Dx) | | | | [address] | [phone] | | | | | [place] | | | | | | [address] | | | | | | [phone] | | | +--------+---------+ + + + [...]
--- OUTSIDE RECORDS SUMMARY | ~2019-05-28 | XMS | Encounter Summary ---
Demographics + + + | Address | [address] | | | [place] [address] | + + + | Home Phone [...] [place] | | | | | [address] | | + + + + + Care Team Providers + +------+ + | Care Degreaser Operator Name | Role | Phone | + +------+ + | Adilia Bob MANAGEMENT PROFESSOR | PCP | | + +------+ + [...] + + | 09/02/ | Hospital | [facility] [address] | Alton Hernandez MD | | | 2012 - | Encounter | [address] | | | | | | Mahogany Willis | | | | 09/05/ | | [place] | | | | 2012 | | [address] | | | | | | [phone] | | | +--------+ + + + [...] Angel MD - 09/10/2012 8:12 AM PST [facility] DEPARTMENT OF ORTHOPAEDICS & REHABILITATION INPATIENT HOSPITAL DISCHARGE SUMMARY & INTERDISCIPLINARY INSTRUCTIONS Patient: Sandy Marc CSN: [id number] Admission Date: 09/02/2012 Discharge Date: 09/05/2012 Attending Physician: Alton Hernandez MD PCP: SAEED Presley Service: [facility] Orthopaedics & Rehabilitation Diagnoses Principal [...] for > 5 years. , Historical Med [facility] Orthopaedic Service Pain Policy At [...] our pleasure. David Peter MD Pager # [phone] documented in this enc ounter Discharge Instructions Instructions Sally Gupta RN - 09/04/2012Formatting of this note might be different f rom the original. ADDITIONAL INFORMATION: [facility] will provide IV antibiotics and education. They can be r eached at: [phone]. You will need to go to [facility] ([phone] - Unit C) for PICC line dressin [...] Arthritis: After Your Visit", log into your [employer] account at [email or web address]. You can enter C265 in the [employer]" search box. Not on [employer]? Review the MyChart section of your After Visit Summary for directions on ho w to sign up. [phone] [facility]. Care instructions adapted under license by [employer] [facility] [place]. This care instruction is for use with your licensed healthcar e professional. If you have questions about a medical condition or this instruction, always ask your healthcare professional. [facility] disclaims any warranty or liabili ty for your use of this information. Content Version: 9.5.73109; Last Revised: July 18, 2011 Patient Education [...] provider under separate cover. Anticipated OPAT Setting: [facility] [phone] f: [phone] ID/OPAT Clinic follow-up: OPAT clinic visit in 1-2 weeks after discharge in conjunction wit h [facility] Orthopedic Service. We will call to schedule this appointment after patient is disch arged. Interdisciplinary Communication: Please notify OPAT clinic 24-48 hours prior to discharge b y calling [phone] (We need anticipated discharge date & where patient is going; i.e. name, ph one, and fax for home infusion vendor, alf facility, or daily outpatient infusio center providing outpatient antibiotic therapy services.) [facility] Department of Infectious Disease Outpatient IV Antibiotic Therapy Clinic (OPAT) Pager ID: [phone] [facility]. Mail Code L457 [place] [address] OPAT teaching note: Education and training for [...] symptoms immediately, and if unable to contact [facility] or the infus ion service [...] care. I [facility] the [facility] that reiterates the above teaching. I spent 45 minutes in education and training in patient self management for IV antibiotic a nd PICC line use with greater than 50% spent on counseling and/or coordination of care. [facility] DEPARTMENT: IDC INFECT DIS CONSULT - [id number] Place of Service: Inpatient Date of Service: 09/04/2012 CSN: [id number] Suggested Modifier: OPATC David Angel MD - [...] made with LENCHO Peter MD Pager # [phone] David Angel MD - 09/03/2012 7:53 AM [...] 6 weeks David Peter MD Pager # [phone] Malathi Mccauley MD - 09/03/2012 1:27 AM [...] op note MALATHI BRYANT MD [facility] [place] Department of Orthopaedics & Rehabilitation [address] [place] [address] Mail Code: OP31 [facility] [address] documented in this e ncounter Plan of [...] + + + | IP CONSULT TO [facility] | Routin | 09/03/2012 | | [...] | + + + + + | [facility] | [address] | [place] [address] | | | SERVICES, CORE | JOY [...] [facility] | [address] | [place] [address] | | | SERVICES, CORE | JOY [...] | + + + + + | [facility] | [address] | [place] [address] | | | SERVICES, [facility] | [address] | | | + + + + + OPERATION RECORD (09/03/2012 2:02 PM PST) + + | Transcriptions | + + | David Peter MD - 09/03/2012 12:20 PM PST Date: 09/02/2012ttending | | Surgeon: Alton Hernandez M.D.Dross Skimmer(s): David | | TAQUERIA Peterreoperative Diagnosis(es):1. Left [...] by | | Dr. Jerald Don in [place] on December 10, 2011. At that time, [...] the reamers. We then used our canal encyclopedia research worker | | to thoroughly wash out [...] Thiago, M.Engr.General Orthopaedics, Trauma JUAN C / [id number] / [id number] / [id number] /D: | | 09/02/2012T: 09/03/2012 | | | | | + + X-RAY PORTABLE CHEST 1 VIEW (09/03/2012 9:51 AM PST) + + + + + + | Component | Value | Ref Range | Performed | Pathologist | | | | | At | Signature | + + + + + + | X-RAY | STUDY: DE CHEST 1 VIEW | | | | [...] (Unit/Room #): | | | 9k Diagnosis: [id number] Osteomyelitis of knee region [id number] AVN | | | (avascular necrosis of bone) [id number] Pathologic fracture of tibia or | | | fibula [id number] Septic arthritis of knee, left Indications: (Select [...] Lot # (or | | | Sticker): [id number] INSERTION SITE: - Basilic Left Local | [...] 09/03/2012Start Time: 0900Patient Location (Unit/Room #): 9kDiagnosis: [id number] | | Osteomyelitis of knee [id number] AVN (avascular necrosis of bone)243107 Pathologic | | fracture of tibia or [id number] Septic arthritis of knee, leftIndications: (Select all [...] CATHETERProduct | | Name: Normaruction: Single4 Fr60cm Bfxn3ip TrimmedLot # (or Sticker): | | [id number] SITE: - BasilicLeftLocal anesthetic used: lidocaineSedation used: | | noneUltrasound: YesMicrointroducer: YesCaps placed after insertion: YesEach lumen | | flushed with: 20 mL of Normal SalineBlood Return Noted: YesSterile dressing applied | | prior to sterile field removal: YesComplications: noneAdjustments after x-ray: Final | | cm exposed: Tip location: Placed by: Jory Morales RNAssisted by: Adrinaa Shelton | |Reviewed Allergies (Heparin, chlorhexidine, local [...] |8cm Trimmed | |Lot # (or Sticker): [id number] | | | |INSERTION SITE: - Basilic [...] | + + + + + | [facility] | [address] | [place] [address] | | | SERVICES, CORE | JOY [...] | + + + + + | [facility] | [address] | [place] [address] | | | SERVICES, CORE | JOY [...] | | + +---------+ + + | [facility] DEPARTMENT OF | | | [...] | | + +---------+ + + | [facility] DEPARTMENT OF | | | [...] | | RESULT | Tissue | | [facility] | | | | Final SMEAR:No | | [place] | | | | fungal elements seen [...] + | [facility] - | [address] | [place] [address] | | | [place] | | | [...] | | Final SMEAR:AFB not | | [facility] | | | | detected source: 10) [...] + | [facility] - | [address] | [place] [address] | | | [place] | | | [...] + | [facility] - | [address] | [place] [address] | | | [facility] | | | | + + + [...] | | Final SMEAR:AFB not | | [place] | | | | detected source: left [...] + | [facility] - | [address] | [place] [address] | | | [place] | | | [...] | | | Final SMEAR:No | | [place] | | | | fungal elements seen [...] | + + + + + | [facility] - | [address] | [place] [address] | | | [place] | | | [...] + | [facility] - | [address] | [place] [address] | | | [place] | | | | + + + [...] | | RESULT | Tissue | | [facility] - | | | | Final SMEAR:No | | [place] | | | | fungal elements seen [...] | + + + + + | [facility] - | [address] | [place] [address] | | | [place] | | | [...] + | [facility] - | [address] | [place] [address] | | | [facility] | | | | + + + [...] + | [facility] - | [address] | [place] [address] | | | [facility] | | | | + + + [...] | | | Final SMEAR:No | | [place] | | | | fungal elements seen [...] + | [facility] - | [address] | [place] [address] | | | [place] | | | [...] + | [facility] - | [address] | [place] [address] | | | [facility] | | | | + + + [...] | | Final GRAM STAIN:No | | [place] | | | | squamous epithelial | [...] | + + + + + | [facility] - | [address] | [place] [address] | | | [place] | | | | + + + [...] + | [facility] - | [address] | [place] [address] | | | [place] | | | | + + + [...] | | Final SMEAR:AFB not | | [place] | | | | detected source: left [...] | + + + + + | [place] [facility] - | [address] | [place] [address] | | | [place] | | | [...] | + + + + + | [facility] | [address] | [place] [address] | | | [place] | | | | + + + [...] | | RESULT | Tissue | | [facility] | | | | Final SMEAR:No | | [place] | | | | fungal elements seen [...] + | [facility] - | [address] | [place] [address] | | | [place] | | | | + + + [...] | | Final SMEAR:AFB not | | [place] | | | | detected source: left [...] | + + + + + | [place] [facility] - | [address] | [place] [address] | | | [place] | | | [...] + | [facility] - | [address] | [place] [address] | | | [place] | | | [...] + | [facility] - | [address] | [place] [address] | | | [facility] | | | | + + + [...] | | Final SMEAR:AFB not | | [place] | | | | detected source: left [...] + | [facility] - | [address] | [place] [address] | | | [place] | | | | + + + [...] + | [facility] - | [address] | [place] [address] | | | [facility] | | | | + + + [...] | | | Final SMEAR:No | | [place] | | | | fungal elements seen [...] | + + + + + | [facility] - | [address] | [place] [address] | | | [place] | | | | + + + [...] | | Final SMEAR:AFB not | | [place] | | | | detected source: 3) [...] | + + + + + | [facility] [place] [facility] - | [address] | [place] [address] | | | [place] | | | | + + + [...] + | [facility] - | [address] | [place] [address] | | | [facility] | | | | + + + [...] | + + + + + | [facility] - | [address] | [place] [address] | | | [place] | | | | + + + [...] + | [facility] - | [address] | [place] [address] | | | [facility] | | | | + + + [...] | + + + + + | [facility] - | [address] | [place] [address] | | | [place] | | | | + + + [...] | | RESULT | Tissue | | [facility] - | | | | Final SMEAR:No | | [place] | | | | fungal elements seen [...] | + + + + + | [place] [facility] - | [address] | [place] [address] | | | [place] | | | [...] | | Final SMEAR:AFB not | | [facility] | | | | detected source: left [...] + | [facility] - | [address] | [place] [address] | | | [place] | | | [...] + | [facility] - | [address] | [place] [address] | | | [place] | | | | + + + [...] | | | Final CULTURE | | [facility] | | | | RESULT:No growth | [...] + | [facility] - | [address] | [place] [address] | | | [place] | | | | + + + [...] | + + + + + | [facility] | [address] | [place] [address] | | | PATHOLOGY | [address] [...]
--- OUTSIDE RECORDS SUMMARY | ~2019-05-28 | XMS | Encounter Summary ---
Demographics + + + | Address | [address] | | | [place] [address] | + + + | Home Phone [...] [place] | | | | | [address] | | + + + + + Care Team Providers + +------+ + | Care Installation Coordinator Name | Role | Phone | [...] + + + + | 09/07/ | [place] | Infectious | Brigid Hardy | | | 2012 | | Diseases at [facility] 3rd | [place], [place] | | | | | Floor [address] [facility] | | | | | | [address] | | | | | | Mailcode: L457 | | | | | | Physician's [address] | | | | | | [place], [place] | | | | | | [address] | | | | | | [phone] | | | +--------+ + + + [...]
--- OUTSIDE RECORDS SUMMARY | ~2019-05-28 | XMS | Encounter Summary ---
Demographics + + + | Address | [address] | | | [place] [address] | + + + | Home Phone [...] [place] | | | | | [address] | | + + + + + Care Team Providers + +------+ + | Care Interventional Radiologist Name | Role | Phone | + [...] | | | | | Health | [facility] | | | | | | Associates | Rd | | | | | | [address] | [place], [place] | | | | | | [address] | [address] | | | | | | [place], | | | | | | | [place] [address] | | | | | | | Phone: | | | | | | | [phone] | | | | | | | Fax: | | | | | | | [phone] | | +--------+--------+ + + + + Encounter Details +--------+---------+ + + + | Date | Type | Department | Care Team | Description | +--------+---------+ + + + | 03/11/ | Office | Orthopaedics & | Zoey Pcek, | Osteomyelitis of | | 2013 | Visit | Rehabilitation at | MD [address] | knee region (HCC) | | | | [facility] 4th Floor [address] | (Primary Dx) | | | | [address] [facility] | [place] [address] | | | | | Rd Mailcode: L608 | [phone] | | | | | Physician's [address] | | | | | | [address] | | | | | | [place], [place] | | | | | | [address] | | | | | | [phone] | | | +--------+---------+ + + + [...] UP Referrring Physician: Alton Hernandez MD [address] [place] [address] Primary Care Physician: [facility] [address] , [address] [place] [address] Ms. Marc presents to Infectious Diseases Clinic regarding scheduled follow up. Please refer to prior documentation including inpatient OPAT teaching note, outpatient OPAT enrobing machine corder for antibiotic therapy, lab monitoring History other than "Interim History" below is directly copied from previous ID notes to darya mcdonough. In addition I reviewed the history from the patient's [facility] admiss ion, including but not [...] placement of antibiotic beads 09/03/2012: HIRAM Silva [facility] Operative Findings: There were no [...] She was seen in the ER in [place] and had a CT Thor ax that [...] Marc follow up in [facility] [place] I spent 20 minutes in a face-to face visit with the patient, with over 50% of time spen t in councelling the patient. We discussed infection, antibiotics, duration of therapy, lab results, and follow-up planning, as described above. ZOEY PECK MD INFECTIOUS DISEASES [address] [place] [address] Mailcode: L608 [place] [address] documented in this e ncounter Plan of Treatment Not on filedocumented as of this encounter Visit Diagnoses + + | Diagnosis | + + | Osteomyelitis of knee region (HCC) - Primary Unspecified osteomyelitis, lower leg | + + documented in this encounter
--- OUTSIDE RECORDS SUMMARY | ~2019-05-28 | XMS | Encounter Summary ---
Demographics + + + | Address | [address] | | | [place] [address] | + + + | Home Phone [...] [place] | | | | | [address] | | + + + + + Care Team Providers + +------+ + | Care Public Policy Coordinator Name | Role | Phone | [...] [place] | | | | | | [place] | | | | | | [address] | | | | | | [phone] | | | +--------+ + + + [...]
--- OUTSIDE RECORDS SUMMARY | ~2019-05-28 | XMS | Encounter Summary ---
Demographics + + + | Address | [address] | | | [place] [address] | + + + | Home Phone [...] [place] | | | | | [address] | | + + + + + Care Team Providers + +------+ + | Care Lead Pastor Name | Role | Phone | + [...] Floor | | | | | | [address] | | | | | | [place], | | | | | | [place] [address] | | | | | | [phone] | | | +--------+------+ + + + [...] e | 10:01 AM | knee region ([facility]) | procedure are in the | | | | PST | | results section. | + +--------+ + + + | IGA, SERUM | Routin | 08/25/2012 | Osteomyelitis of | Results for this | | | e | 10:01 AM | knee region ([facility]) | procedure are in the | | [...] [facility] | [address] | [place] [address] | | | SERVICES, CORE | PARK [...] [facility] | [address] | [place] [address] | | | SERVICES, SPECIAL | PARK [...] | | | | | in the [facility] | | | | | | LaboratoryTest Directory | | | | | | ([employer]). | | | | + + + [...] | | | | | in the [facility] | | | | | | LaboratoryTest Directory | | | | | | ([employer]). | | | | + + + [...] | | | | | in the [facility] | | | | | | LaboratoryTest Directory | | | | | | ([employer]). | | | | + + + [...] # | | | | | | [phone]). Access | | | | | | complete set of age- | | | | | | and/or | | | | | | gender-specificreference | | | | | | intervals for this test | | | | | | in the [facility] | | | | | | LaboratoryTest Directory | | | | | | ([email or web address]).Performed | | | | | | by [facility] | | | | | | [facility] | | | | | | [place] [address] | | | | | | [phone] | | | | | | [facility], Magy Fernandez, | | | | [...] [facility] | [address] | [place], [place] | | | UNIV P[facility] | | [address] | | + + + + + [...] | + + + + + | [facility] - | [address] | [place] [address] | | | [place] | | | | + + + + + documented in this encounter Visit Diagnoses + + | Diagnosis | + + | Osteomyelitis of knee region (HCC) Unspecified osteomyelitis, lower leg | + + documented in this encounter"
--- OUTSIDE RECORDS SUMMARY | ~2019-05-28 | XMS | Encounter Summary ---
Demographics + + + | Address | [address] | | | [place] [address] | + + + | Home Phone [...] + + + | Author | [facility] | + + + | Organization | [facility] | + + + | Address | Unknown | + + + | Phone | Unavailable | + + + Support + + + + + | Name | Relationship | Address | Phone | + + + + + | Grisel Marc | ECON | [address] | | | | | [place] | | | | | [address] | | + + + + + Care Team Providers + +------+ + | Care Poultry Packer Name | Role | Phone | + +------+ + | Hina Peterson | PCP | | + +------+ + Encounter Details +--------+ + + + + | Date | Type | Department | Care Team | Description | +--------+ + + + + | 03/13/ | Document-Sc | [facility] [address] | Unknown . | | | 2015 | anned | [place], | | | | | | [place] [address] | | | +--------+ + + + [...]
--- OUTSIDE RECORDS SUMMARY | ~2019-05-28 | XMS | Encounter Summary ---
Demographics + + + | Address | [address] | | | [place] [address] | + + + | Home Phone [...] [place] | | | | | [address] | | + + + + + Care Team Providers + +------+ + | Care Nurse Infection Control Name | Role | Phone | + +------+ + | Adilia BboP | PCP | | + +------+ + [...] | | | | necrosis of | [facility] | [place] | | | | | bone) ([facility]) | Rd | [address] | | | | | Septic | [place], [place] | [place], | | | | | 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[address] | [place] [address] | | | | | knee, left | | Phone: | | | | | ([facility]) | | [phone] | | | | | Procedures | | Fax: | | | | | CONSULT TO | | [phone] | | | | | INFECTIOUS | [...] use of antibiotics | | | | [place], [place] | | | | | | [address] | | | | | | [phone] | | | +--------+---------+ + + + [...] UP Primary Care Physician: [facility] [address], [address] [place] [address] Ms. Marc presents to Infectious Diseases Clinic [...] doing rodeo on her horse going around [employer], and she was leaning out away from t [employer]. Her legs spontaneously broke with pathological fracture. [...] placement of antibiotic beads 09/03/2012: HIRAM Silva [facility] Operative Findings: We began by performing [...] amedullary canal. We then used our canal cook fruit to thoroughly washout the intramedullary canal as [...] She was seen in the ER in [place] and had a CT Thor ax that [...] an d follow-up planning. Brigid Hardy PA-C [facility] Department of Infectious Diseases Outpatient IV Antibiotic Therapy Clinic (OPAT) [phone] Pager ID: [phone] [facility] Mail Code L457 [place] [address] documented in this encounter Plan of Treatment [...]
--- OUTSIDE RECORDS SUMMARY | ~2019-05-28 | XMS | Encounter Summary ---
Demographics + + + | Address | [address] | | | [place] [address] | + + + | Home Phone [...] + | Grisel Marc | ECON | [address] | | | | | [place] | | | | | [address] | | + + + + + Care Team Providers + +------+ + | Care Orthopedic Shoe Fitter Name | Role | Phone | [...] | | | | [address] | [address] | | | | | [address] | [phone] | | | | | [place] | | | | | | [address] | | | | | | [phone] | | | +--------+ + + + [...]
--- OUTSIDE RECORDS SUMMARY | ~2019-05-28 | XMS | Encounter Summary ---
Demographics + + + | Address | [address] | | | [place] [address] | + + + | Home Phone [...] [place] | | | | | [address] | | + + + + + Care Team Providers + +------+ + | Care Pencil Sorter Name | Role | Phone | + [...] | | | | | | [place] [address] | | | | | | [phone] | | | +--------+ + + + [...]
--- OUTSIDE RECORDS SUMMARY | ~2019-05-28 | XMS | Encounter Summary ---
Demographics + + + | Address | [address] | | | [place] [address] | + + + | Home Phone [...] [place] | | | | | [address] | | + + + + + Care Team Providers + +------+ + | Care Amphibian Crewmember Name | Role | Phone | + +------+ + | Adilia Bob PROTECTION MGR | PCP | | + +------+ + [...] | | | | | long-term | [place], [place] | Physician's | | | | | (current) | [address] | Pavilion | | | | | use of | | [place], [place] | | | | | antibiotics | | [address] | | | | | Procedures | | Phone: | | | | | [facility] | | [phone] | | | | | UPPER EXT | | Fax: | | | | | PSEUDOANEUR | | [phone] | | | | | COMP LEFT [...] | | | | necrosis of | [facility] | [place] | | | | | bone) ([facility]) | Rd | [address] | | | | | Septic | [place], [place] | [place], | | | | | 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[address] | [place] [address] | | | | | knee, left | | Phone: | | | | | ([facility]) | | [phone] | | | | | Procedures | | Fax: | | | | | CONSULT TO | | [phone] | | | | | INFECTIOUS | [...] [place] | | | | | | [place], [place] | | | | | | [address] | | | | | | [phone] | | | +--------+---------+ + + + [...] DISEASES CLINIC FOLLOW UP Primary Care Physician: [facility] [address], [address] [place] [address] Ms. Marc presents to Infectious Diseases Clinic [...] doing rodeo on her horse going around [employer], and she was leaning out away from [employer]. Her legs spontaneously broke with pathological fracture. [...] medullary canal. We then used our canal tax compliance agent to thoroughly washout the intramedullary c anal [...] She was seen in the ER in [place] and had a CT Thor ax that [...] a nd follow-up planning. Brigid Hardy PA-C [facility] Department of Infectious Diseases Outpatient IV Antibiotic Therapy Clinic (OPAT) [phone] Pager ID: [phone] [facility] Mail Code L457 [place] [address] documented in this encounter Plan of Treatment [...] [place] | | | | | | [place] | | | | | | | [...]
--- OUTSIDE RECORDS SUMMARY | ~2019-05-28 | XMS | Encounter Summary ---
Demographics + + + | Address | [address] | | | [place] [address] | + + + | Home Phone [...] + | Grisel Marc | ECON | [address] | | | | | [place] | | | | | [address] | | + + + + + Care Team Providers + +------+ + | Care Stitch Separator Name | Role | Phone | + [...] | | | | | | [place] [address] | | | +--------+ + + + [...]
--- OUTSIDE RECORDS SUMMARY | ~2019-05-28 | XMS | Encounter Summary ---
Demographics + + + | Address | [address] | | | [place] [address] | + + + | Home Phone [...] [place] | | | | | [address] | | + + + + + Care Team Providers + +------+ + | Care Zipper Measurer Name | Role | Phone | + +------+ + | Adilia Bob EMERGENCY PLANNER | PCP | | + +------+ + [...] | | | | necrosis of | [facility] | [place] | | | | | bone) ([facility]) | Rd | [address] | | | | | Septic | [place], [place] | [place], | | | | | 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[address] | [place] [address] | | | | | knee, left | | Phone: | | | | | ([facility]) | | [phone] | | | | | Procedures | | Fax: | | | | | CONSULT TO | | [phone] | | | | | INFECTIOUS | [...] use of antibiotics | | | | [place], [place] | | | | | | [address] | | | | | | [phone] | | | +--------+---------+ + + + [...] DISEASES CLINIC FOLLOW UP Primary Care Physician: [facility] [address], [address] [place] [address] Ms. Marc presents to Infectious Diseases Clinic regarding scheduled follow up. The patient was seen in conjunction with Dr. Alton Hernandez today. The following history was obtained prior to today's OPAT visit from my own review of the bethany perez's recent [facility] hospital admission, including but [...] doing rodeo on her horse going around [employer], and she was leaning out away from [employer]. Her legs spontaneously broke with pathological fracture. [...] intramedullary canal. We then used our canal lecturer of portuguese to thoroughly washout the intramedullary canal as [...] She was seen in the ER in [place] and had a CT Thor ax that [...] care provider and surgeon. Brigid Hardy PA-C [facility] Department of Infectious Diseases Outpatient IV Antibiotic Therapy Clinic (OPAT) [phone] Pager ID: [phone] Mail Code L457 [place] [address] documented in this encounter Plan of Treatment Not on filedocumented as of this encounter Visit Diagnoses + + | Diagnosis | + + | Osteomyelitis of knee region (HCC) - Primary Unspecified osteomyelitis, lower leg | + + | Encounter for long-term (current) use of antibiotics | + + documented in this encounter
--- OUTSIDE RECORDS SUMMARY | ~2019-05-28 | XMS | Encounter Summary ---
Demographics + + + | Address | [address] | | | [place] [address] | + + + | Home Phone [...] [place] | | | | | [address] | | + + + + + Care Team Providers + +------+ + | Care Activity Specialist Name | Role | Phone | [...] | s of knee | Health | [facility] | | | | | region ([facility]) | Associates | Rd [place], | | | | | AVN | [address] | [place] | | | | | (avascular | St[address] | [address] | | | | | necrosis of | [place], | | | | | | bone) ([facility]) | [place] [address] | | | | | | Pathologic | Phone: | | | | | | fracture of | [phone] | | | | | | tibia or | Fax: | | | | | | fibula | [phone] | | | | | | Septic [...] | | | | | | | CAUSTICISER | | | | | | | MS PARTIAL | | | | | | | REMOVAL OF | | | | | | | TIBIA MS | | | | | | | INSERTION | | | | | | | DRUG IMPLANT | | | | | | | DEVICE MS | | | | | | | KNEE | | | | | | | SCOPE,SHAVE | | | | | | | ARTICULAR | | | | | | | CART MS | | | | | | | [...] | left (HCC) | | | | [place], [place] | | | | | | [address] | | | | | | [phone] | | | +--------+---------+ + + + [...] Intraoperative Consult Diagnosis confirmed by: Kaushik Duong ([facility]) and Khushi Romero M.D./Pathologist ASSESSMENT: [...] separate note for details). DARRICK BUITRAGO MD [facility] [address] [place] [address] Mailcode: [id number] [place] [address] Basia Vivar MA - 02/2013 3:15 PM [...]
--- OUTSIDE RECORDS SUMMARY | ~2019-05-28 | XMS | Encounter Summary ---
Demographics + + + | Address | [address] | | | [place] [address] | + + + | Home Phone [...] [place] | | | | | [address] | | + + + + + Care Team Providers + +------+ + | Care Deoiling Machine Operator Name | Role | Phone [...] | | 2012 | | [facility] [address] [facility] | | | | | | [address] | | | | | | Mailcode: [id number] | | | | | | [place] | | | | | | [place], [place] | | | | | | [address] | | | | | | [phone] | | | +--------+ + + + [...] e | of knee, left ([facility]) | | + +------+--------+ + + | SYNOVIAL FLUID, | Lab | Routin | Septic arthritis | Ordered: 02/12/2013 | | CRYSTALS | | e | of knee, left ([facility]) | | + +------+--------+ + [...]
--- OUTSIDE RECORDS SUMMARY | ~2019-05-28 | XMS | Encounter Summary ---
Demographics + + + | Address | [address] | | | [place] [address] | + + + | Home Phone [...] [place] | | | | | [address] | | + + + + + Care Team Providers + +------+ + | Care Marker Delivery Name | Role | Phone | + [...] PPV | | | | | | [address] | | | | | | [place] Mailcode: | | | | | | [id number] Physician's | | | | | | [place], | | | | | | [place] [address] | | | | | | [phone] | | | +--------+ + + + [...]
--- OUTSIDE RECORDS SUMMARY | ~2019-05-28 | XMS | Encounter Summary ---
Demographics + + + | Address | [address] | | | [place] [address] | + + + | Home Phone [...] [place] | | | | | [address] | | + + + + + Care Team Providers + +------+ + | Care Coating Machine Operator Name | Role | Phone | + +------+ + | Adilia Bob HOTEL MAINTENANCE WORKER | PCP | | + +------+ [...] [place] | | | | | | [place], [place] | | | | | | [address] | | | | | | [phone] | | | +--------+ + + + [...]
--- OUTSIDE RECORDS SUMMARY | ~2019-05-28 | XMS | Clinical Summary ---
Demographics + + + | Address | [address] | | | [place] [address] | + + + | Home Phone | | + + + | Preferred Language | Unknown | + + + | Marital Status | Single | + + + | Denominational Affiliation | Unknown | + + + | Race | Unknown | + + + | Ethnic Group | Unknown | + + + Author + + + | Author | [facility] | | | and [place] | + + + | Organization | [facility] | | | and [...] Team Providers + +------+ + | Care Foundry Engineer Name | Role | Phone | [...] + | Maternal Aunt | | | [place] | | | | (Age | | [...] + | Blood Pressure | 110/78 | 09/14/2018926 PST | + + + + | Pulse | 83 | 09/14/2018926 PST | + + + + | Temperature | - | - | + + + + | Respiratory Rate | - | - | + + + + | Oxygen Saturation | - | - | + + + + | Inhaled Oxygen | - | - | | Concentration | | | + + + + | Weight | 88.6 kg (195 lb 6.4 | 09/14/2018926 PST | | | oz) | | + + + + | Height | 170.2 cm (5' 7") | 09/14/2018926 PST | + + + + | Body Mass Index | 30.6 | 09/14/2018926 PST | + + + + Plan of Treatment + + + + + | Health Maintenance | Due Date | Last Done | Comments | + + + + + | Vaccine: | | | | | Dtap/Tdap/Td (1 - | 9 | | | | Tdap) | | | | + + + + + | Cervical Cancer | | | | | Screening (Pap) | 1 | | | + + + + + | Vaccine: Influenza | | | | | (#1) | 9 | | | + + + + + Results Not on filefrom Last 3 Months
--- OUTSIDE RECORDS SUMMARY | ~2019-05-28 | XMS | Encounter Summary ---
Demographics + + + | Address | [address] | | | [place] [address] | + + + | Home Phone [...] [place] | | | | | [address] | | + + + + + Care Team Providers + +------+ + | Care Bottomer Operator Name | Role | Phone | + +------+ + | Adilia Bob UNIFORM CAP OPERATOR | PCP | | + +------+ [...] | | | | [address] | [address] [facility] | | | | | osteomyeliti | Street | [facility] | | | | | s, lower leg | [address] | [address] [place], | | | | | L knee | [place], | [place] | | | | | | [place] [address] | [address] | | | | | | Phone: | | | | | | | [phone] | | | | | | | Fax: | | | | | | | [phone] | | +--------+--------+ + + + + Encounter Details +--------+---------+ + + + | Date | Type | Department | Care Team | Description | +--------+---------+ + + + | 12/08/ | Office | Orthopaedics at | Darrick Buitrago MD | Quadriceps | | 2012 | Visit | [facility] [address] [facility] | | tendonitis (Primary | | | | [facility] [address] | | Dx); Achilles | | | | Mailcode: [id number] | | tendonitis; | | | | Physician's [address] | | Osteomyelitis of | | | | [place], [place] | | knee region (HCC); | | | | [address] | | Septic 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| | | [phone] | | knee, left ([facility] [...] horseback riding. However in the last w [place] and a half she has developed some [...] seconds capillary refill. Palpable dorsalis pedis and aircraft systems repairer ior tibial pulses. X-RAYS: Reviewed x-rays with [...] extensiveness of her infection. DARRICK BUITRAGO MD [facility] [address] [place] [address] Mailcode: [id number] [place] [id number] documented in this en counter Plan of [...]
--- OUTSIDE RECORDS SUMMARY | ~2019-05-28 | XMS | Encounter Summary ---
[...] [place] | | | | | [address] | | + + + + + Care Team Providers + +------+ + | Care Farm Equipment Engineer Name | Role | Phone | [...] PPV | | | | | | [address] | | | | | | [place] Mailcode: | | | | | | PV450 Physician's | | | | | | [place], | | | | | | [place] [address] | | | | | | [phone] | | | +--------+ + + + [...]
--- OUTSIDE RECORDS SUMMARY | ~2019-05-28 | XMS | Encounter Summary ---
Demographics + + + | Address | [address] | | | [place] [address] | + + + | Home Phone [...] [place] | | | | | [address] | | + + + + + Care Team Providers + +------+ + | Care Car Construction Superintendent Name | Role | Phone | + [...] | | | | | | [place] [address] | | | | | | [phone] | | | +--------+ + + + [...]
--- OUTSIDE RECORDS SUMMARY | ~2019-05-28 | XMS | Encounter Summary ---
Demographics + + + | Address | [address] | | | [place] [address] | + + + | Home Phone [...] [place] | | | | | [address] | | + + + + + Care Team Providers + +------+ + | Care Fusion Juncture Grinder Name | Role | Phone | [...] PPV | | | | | | [address] | | | | | | [place] Mailcode: | | | | | | [id number] Physician's | | | | | | [place], | | | | | | [place] [address] | | | | | | [phone] | | | +--------+ + + + [...] | | + +---------+ + + | [facility] | | | | | RADIOLOGY | | | | + +---------+ + + documented in this encounter Visit Diagnoses + + | Diagnosis | + + | Osteomyelitis of knee region (HCC) Unspecified osteomyelitis, lower leg | + + documented in this encounter"
--- OUTSIDE RECORDS SUMMARY | ~2019-05-28 | XMS | Encounter Summary ---
Demographics + + + | Address | [address] | | | [place] [address] | + + + | Home Phone [...] [place] | | | | | [address] | | + + + + + Care Team Providers + +------+ + | Care Echo Tech Name | Role | Phone | [...] | | | | | Health | [facility] | | | | | | Associates | Rd | | | | | | [address] | [place], [place] | | | | | | [address] | [address] | | | | | | [place], | | | | | | | [place] [address] | | | | | | | Phone: | | | | | | | [phone] | | | | | | | Fax: | | | | | | | [phone] | | +--------+--------+ + + + + [...] (HCC) | | | | Floor [address] [facility] | [address] | (Primary Dx) | | | | [address] | [place] [address] | | | | | Mailcode: L457 | [phone] | | | | | [facility] | | | | | | [place], [place] | | | | | | [address] | | | | | | [phone] | | | +--------+---------+ + + + [...] FOLLOW UP Referrring Physician: Alton Hernandez MD [address] [place] [address] Primary Care Physician: Family [facility] [address], [address] [place] [address] Ms. Marc presents to Infectious Diseases Clinic regarding scheduled follow up. History other than "Interim History" below is directly copied from previous ID notes to darya mcdonough. In addition I reviewed the history from the patient's [facility] admiss ion, including but not [...] placement of antibiotic beads 09/03/2012: HIRAM Silva [facility] Operative Findings: There were no [...] She was seen in the ER in [place] and had a CT Thor ax that [...] described above. ZOEY PECK MD INFECTIOUS DISEASES [address] [place] [address] Mailcode: L608 [place] [address] documented in this e ncounter Plan of Treatment Not on filedocumented as of this encounter Visit Diagnoses + + | Diagnosis | + + | Osteomyelitis of knee region (HCC) - Primary Unspecified osteomyelitis, lower leg | + + documented in this encounter
--- OUTSIDE RECORDS SUMMARY | ~2019-05-28 | XMS | Encounter Summary ---
Demographics + + + | Address | [address] | | | [place] [address] | + + + | Home Phone [...] [place] | | | | | [address] | | + + + + + Care Team Providers + +------+ + | Care Perforator Operator Oil Well Name | Role | Phone | + [...] Visit | Medicine Clinic at | R, JEWEL SAWYER [address] [facility] | pre-operative | | | | MPV 4th Floor Day | [address] | examination (Primary | | | | Stay [address] [facility] | [place], [place] | Dx); Septic | | | | [address] | [address] | arthritis of knee, | | | | Mailcode: [id number] | [phone] | left ([facility]); AVN | | | | [address]i [address] | | (avascular necrosis | | | | [address] [place], [place] | | of bone) ([facility]); | | | | [address] | | Osteomyelitis of | | | | [phone] | | knee region ([facility]); | | | | | | Asthma | +--------+---------+ + + + Anesthesia Record + + + + + | Procedure Name | Responsible | Anesthesia Start | Anesthesia Stop Time | | | Anesthesiologist | Time | | + + + + + | IRRIGATION AND | Shakila Burgos MD | 09/02/12 1407 | 09/02/12 6975 | | DEBRIDEMENT OF LEFT | | [...] or walk. Surgery Check in Locations Admitting [facility], ninth floor [facility] Surgery Check in Time: The Preoperative [...] it is after office hours, call the [facility] power cleaner operator at [phone] and ask them to page him or h er. Preparing For Your Surgery Video -- 7 minutes of instructions! If you have access to the Internet and would like to review our instructional video about g etting ready for your procedure day, please follow these directions: Access the [facility] website [email or web address] --> POPULAR RESOURCES --> Patient Guide --> [...] and PMHX. Document will be scanned in [employer]. Pulmonary: Within Defined Limits except as noted [...] further investigation and manageme nt. A. Acute AK within 7 days: no B. Unstable angina/Recent AK (7- 30 days): no C. Decompensated CHF: [...] no Rate of cardiac , non fatal AK, non fatal cardiac arrest (RCRI) 0 risk [...] to this patient's care. MAIRA ZHAO NP [facility] [address] [facility] [address] [phone] signed by Maira Zhao NP at 08/24/2012 [...] Septic arthritis of knee, left ([facility]) Pyogenic arthritis, lower leg | + + | AVN (avascular necrosis of bone) ([facility]) Aseptic necrosis of bone, site unspecified | + + | Osteomyelitis of knee region (HCC) Unspecified osteomyelitis, lower leg | + + | Asthma | + + documented in this encounter
--- OUTSIDE RECORDS SUMMARY | ~2019-05-28 | XMS | Encounter Summary ---
Demographics + + + | Address | [address] | | | [place] [address] | + + + | Home Phone [...] Grisel Marc | FE | [address] | | | | | [place] | | | | | [address] | | + + + + + Care Team Providers + +------+ + | Care Suction Operator Name | Role | Phone | + +------+ + | Adilia Bob REGISTERED SALES ASSISTANT | PCP | | + [...] | | | | | Septic | [place], [place] | [place] | | | | | 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[address] | [place] [address] | | | | | knee, left | | Phone: | | | | | ([facility]) | | [phone] | | | | | Procedures | | Fax: | | | | | CONSULT TO | | [phone] | | | | | INFECTIOUS | [...] | MD [address] | knee region ([facility]) | | | | Floor [address] [facility] | [address] | (Primary Dx) | | | | [address] | [place] [address] | | | | | Mailcode: [id number] | [phone] | | | | | [facility] | | | | | | [place], [place] | | | | | | [address] | | | | | | [phone] | | | +--------+---------+ + + + [...] Lavinia Peck MD - 08/25/2012 10:10 PM [facility] Clinic Date: 08/25/2012 Clinic: Infectious Disease I [...] Lavinia Peck M.D., Ph.D. MALLORY / HYACINTH [id number] / [id number] / [id number] / Lavinia Lam MD - 08/25/2012 9:30 AM PST This office note has been dictated. [facility] #: [id number] I spent 45 minutes with the patient [...] | + + + + + | [facility] | [address] | [place] [address] | | | SERVICES, SPECIAL | JOY [...] Directory | | | | | | ([employer]). | | | | + + + [...] Directory | | | | | | ([employer]). | | | | + + + [...] | | | | | in the [facility] | | | | | | LaboratoryTest Directory | | | | | | ([employer]). | | | | + + + [...] # | | | | | | [phone]). Access | | | | | | complete set of age- | | | | | | and/or | | | | | | gender-specificreference | | | | | | intervals for this test | | | | | | in the [facility] | | | | | | LaboratoryTest Directory | | | | | | ([employer]).Performed | | | | | | by [facility] | | | | | | [facility] | | | | | | [place] [address] | | | | | | [phone]. | | | | | | the [facility], Magy Fernandez, | | | | [...] [facility] | [address] | [place], [place] | | | [facility] | | [address] | | + + + + + [...] | | | | | | [place] | | + +-------+ + + + + + | Specimen | + + | Blood - Blood | + + + + + + + | Performing | Address | City/State/Zipcode | Phone Number | | Organization | | | | + + + + + | [facility] - | [address] | [place] [address] | | | [facility] | | | | + + + + + documented in this encounter Visit Diagnoses + + | Diagnosis | + + | Osteomyelitis of knee region (HCC) - Primary Unspecified osteomyelitis, lower leg | + + documented in this encounter"
--- OUTSIDE RECORDS SUMMARY | ~2019-05-28 | XMS | Encounter Summary ---
Demographics + + + | Address | [address] | | | [place] [address] | + + + | Home Phone [...] [place] | | | | | [address] | | + + + + + Care Team Providers + +------+ + | Care Title Checker Name | Role | Phone | + +------+ + | Adilia Bob AUTOMOTIVE UPHOLSTERER | PCP | | + +------+ + Encounter Details +--------+ + + + + | Date | Type | Department | Care Team | Description | +--------+ + + + + | 10/13/ | Die Engraving Supervisor | Orthopaedics at | Alton Hernandez MD | Osteomyelitis of | | 2012 | | [facility] [address] | | knee region (HCC) | | | | [address] | | (Primary Dx) | | | | Mailcode: [id number] | | | | | | [facility] | | | | | | [place], [place] | | | | | | [address] | | | | | | [phone] | | | +--------+ + + + [...]
--- OUTSIDE RECORDS SUMMARY | ~2019-05-28 | XMS | Encounter Summary ---
Demographics + + + | Address | [address] | | | [place] [address] | + + + | Home Phone [...] + | Grisel Marc | ECON | [address] | | | | | [place] | | | | | [address] | | + + + + + Care Team Providers + +------+ + | Care Clipper Operator Name | Role | Phone | [...] | | | [address] | [address] | | | | | [address] | [phone] | | | | | [place] | | | | | | [address] | | | | | | [phone] | | | +--------+ + + + [...]
--- OUTSIDE RECORDS SUMMARY | ~2019-05-28 | XMS | Encounter Summary ---
Demographics + + + | Address | [address] | | | [place] [address] | + + + | Home Phone [...] [place] | | | | | [address] | | + + + + + Care Team Providers + +------+ + | Care Consumer Banker Name | Role | Phone | + +------+ + | Adilia Bob MANAGER SOCIAL MEDIA | PCP | | + +------+ + [...] | knee | [address] | [address] [facility] | | | | | synovectomy | Street | [facility] | | | | | | [address] | Rd [place], | | | | | | [place], | [place] | | | | | | [place] [address] | [address] | | | | | | Phone: | | | | | | | [phone] | | | | | | | Fax: | | | | | | | [phone] | | +--------+--------+ + + + + [...] Pavilion | | | | | | [place], [place] | | | | | | [address] | | | | | | [phone] | | | +--------+---------+ + + + [...] contrast or a knee aspi ration in [facility] but she elcted to come here for the aspiration and so this joint ap pointment with Dr. Peck from [place] was scheduled. Fortunately the knee stopped hurting [...] seconds capillary refill. Palpable dorsalis pedis and acting manager ior tibial pulses. X-RAYS: Reviewed x-rays [...] for additional details. DARRICK BUITRAGO MD [facility] [address] [place] [address] Mailcode: [id number] [place] [address] documented in this en counter Plan of Treatment Not on filedocumented as of this encounter Visit Diagnoses + + | Diagnosis | + + | Osteomyelitis of knee region (HCC) - Primary Unspecified osteomyelitis, lower leg | + + documented in this encounter
--- OUTSIDE RECORDS SUMMARY | ~2019-05-28 | XMS | Encounter Summary ---
Demographics + + + | Address | [address] | | | [place] [address] | + + + | Home Phone [...] + + + | Author | [facility] | + + + | Organization | [facility] | + + + | Address | Unknown | + + + | Phone | Unavailable | + + + Support + + + + + | Name | Relationship | Address | Phone | + + + + + | Grisel Marc | ECON | [address] | | | | | [place] | | | | | [address] | | + + + + + Care Team Providers + +------+ + | Care Train Operator Name | Role | Phone | [...] | | | | [address] | [address] | | | | | [address] | [phone] | | | | | [place] | | | | | | [address] | | | | | | [phone] | | | +--------+ + + + [...]
--- OUTSIDE RECORDS SUMMARY | ~2019-05-28 | XMS | Encounter Summary ---
Demographics + + + | Address | [address] | | | [place] [address] | + + + | Home Phone [...] [place] | | | | | [address] | | + + + + + Care Team Providers + +------+ + | Care Drier Tender Name | Role | Phone | [...] + + + + | 09/24/ | Av Specialist | Infectious | Brigid Hardy | | | 2012 | | Diseases at [facility] 3rd | [place] | | | | | Floor [address] [facility] | | | | | | [address] | | | | | | Mailcode: L457 | | | | | | Phys[facility] | | | | | | [place], [place] | | | | | | [address] | | | | | | [phone] | | | +--------+ + + + [...]
--- OUTSIDE RECORDS SUMMARY | ~2019-05-28 | XMS | Encounter Summary ---
Demographics + + + | Address | [address] | | | [place] [address] | + + + | Home Phone [...] [place] | | | | | [address] | | + + + + + Care Team Providers + +------+ + | Care Executive Manager Name | Role | Phone | [...] | | | | | | [place] [address] | | | | | | [phone] | | | +--------+ + + + [...]
--- OUTSIDE RECORDS SUMMARY | ~2019-05-28 | XMS | Encounter Summary ---
Demographics + + + | Address | [address] | | | [place] [address] | + + + | Home Phone [...] [place] | | | | | [address] | | + + + + + Care Team Providers + +------+ + | Care Utility Clerk Name | Role | Phone | + +------+ + | Adilia Bob CRYSTAL REPORT DEVELOPER | PCP | | + +------+ [...] [address] | | | | | | [place], [place] | | | | | | [address] | | | | | | [phone] | | | +--------+ + + + [...]
--- OUTSIDE RECORDS SUMMARY | ~2019-05-28 | XMS | Encounter Summary ---
Demographics + + + | Address | [address] | | | [place] [address] | + + + | Home Phone [...] + | Grisel Marc | ECON | [address] | | | | | [place] | | | | | [address] | | + + + + + Care Team Providers + +------+ + | Care Value Advisor Name | Role | Phone | [...] | | | | of right | [address] | [address] | | | | | patella, | [address] | [address] | | | | | initial | [place], [place] | [place], [place] | | | | | encounter | [address] | [address] | | | | | Pain in | Phone: | Phone: | | | | | right knee | [phone] | [phone] | | | | | | Fax: | Fax: | | | | | | [phone] | [phone] | +--------+--------+ + + + + Encounter [...] | | [address] | [address] | (Primary Dx) | | | | [address] | [phone] | | | | | [place] | | | | | | [address] | | | | | | [phone] | | | +--------+---------+ + + + [...]
--- OUTSIDE RECORDS SUMMARY | ~2019-05-28 | XMS | Encounter Summary ---
Demographics + + + | Address | [address] | | | [place] [address] | + + + | Home Phone [...] [place] | | | | | [address] | | + + + + + Care Team Providers + +------+ + | Care Sausage Cooker Name | Role | Phone | + +------+ + | Adilia Bob CUSTOMER LOGISTICS MANAGER | PCP | | + +------+ + Encounter Details +--------+ + + + + | Date | Type | Department | Care Team | Description | +--------+ + + + + | 11/25/ | Cotton Farmworker | Orthopaedics at | Alton Hernandez MD | Osteomyelitis of | | 2012 | | [facility] [address] | | knee region (HCC) | | | | [address] | | (Primary Dx); | | | | Mailcode: [id number] | | Pathologic fracture | | | | [facility] | | of tibia or fibula | | | | [place], [place] | | | | | | [address] | | | | | | [phone] | | | +--------+ + + + [...] | + +---------+ + + | [facility] DEPARTMENT OF | | | | | [...]
--- OUTSIDE RECORDS SUMMARY | ~2019-05-28 | XMS | Encounter Summary ---
Demographics + + + | Address | [address] | | | [place] [address] | + + + | Home Phone [...] [place] | | | | | [address] | | + + + + + Care Team Providers + +------+ + | Care Inspector Fuel Hose Name | Role | Phone | + [...] + + + + | 09/04/ | Automation And Controls Manager | Infectious | Silvernail, Brigid | | | 2012 | | Diseases at [facility] 3rd | [place] | | | | | Floor [address] | | | | | | [address] | | | | | | Mailcode: L457 | | | | | | Physician[facility] [address] | | | | | | [place], [place] | | | | | | [address] | | | | | | [phone] | | | +--------+ + + + [...]
--- OUTSIDE RECORDS SUMMARY | ~2019-05-28 | XMS | Encounter Summary ---
Demographics + + + | Address | [address] | | | [place] [address] | + + + | Home Phone [...] + | Grisel Marc | ECON | [address] | | | | | [place] | | | | | [address] | | + + + + + Care Team Providers + +------+ + | Care Traffic Chief Name | Role | Phone | + [...] | | | | | right | [address] | NW | | | | | Procedures | [place], | [place], [place] | | | | | MRI KNEE RT | [place] | [address] | | | | | [place] | [address] | Phone: | | | | | MRI LOWER | Phone: | [phone] | | | | | EXTREM JT, | [phone] | Fax: | | | | | W/O CONTRAST | Fax: | [phone] | | | | | | [phone] | | +--------+--------+ + + + + [...] | | | | | | [place] [address] | [address] | | | | | | Phone: | Phone: | | | | | | [phone] | [phone] | | | | | | Fax: | Fax: | | | | | | [phone] | [phone] | +--------+--------+ + + + + Encounter [...] | | [address] | [address] | | | | | [address] | [phone] | | | | | [place], [place] | | | | | | [address] | | | | | | [phone] | | | +--------+---------+ + + + [...]
--- OUTSIDE RECORDS SUMMARY | ~2019-05-28 | XMS | Encounter Summary ---
Demographics + + + | Address | [address] | | | [place] [address] | + + + | Home Phone [...] [place] | | | | | [address] | | + + + + + Care Team Providers + +------+ + | Care Cell Liner Name | Role | Phone | + +------+ + | Adilia Bob LOGGING SPECIALIST | PCP | | + +------+ [...] (postop | | 2012 | | [facility] [address] | | drainage) | | | | [address] | | | | | | Mailcode: PV430 | | | | | | Phys[facility] | | | | | | [place], [place] | | | | | | [address] | | | | | | [phone] | | | +--------+ + + + [...]
--- OUTSIDE RECORDS SUMMARY | ~2019-05-28 | XMS | Encounter Summary ---
Demographics + + + | Address | [address] | | | [place] [address] | + + + | Home Phone [...] [place] | | | | | [address] | | + + + + + Care Team Providers + +------+ + | Care Flower Planter Name | Role | Phone | + +------+ + | Adilia Bob BEAD INSPECTOR | PCP | | + +------+ [...] [address] | | | | | | [place], [place] | | | | | | [address] | | | | | | [phone] | | | +--------+ + + + [...]
--- OUTSIDE RECORDS SUMMARY | ~2019-05-28 | XMS | Clinical Summary ---
Demographics + + + | Address | [address] | | | [place] [address] | + + + | Home Phone | | + + + | Preferred Language | Unknown | + + + | Marital Status | Single | + + + | Restorationism Affiliation | Unknown | + + + | Race | Unknown | + + + | Ethnic Group | Unknown | + + + Author + + + | Author | [facility] | | | and [place] | + + + | Organization | [facility] | | [...] Team Providers + +------+ + | Care Artist Representative Name | Role | Phone | [...]
--- OUTSIDE RECORDS SUMMARY | ~2019-05-28 | XMS | Encounter Summary ---
Demographics + + + | Address | [address] | | | [place] [address] | + + + | Home Phone [...] [place] | | | | | [address] | | + + + + + Care Team Providers + +------+ + | Care Tool And Die Maker Level Five Name | Role | Phone | + +------+ + | Adilia Bob BIOMASS PLANT MANAGER | PCP | | + +------+ [...] | | | 2012 | Event | [facility] | [address] [facility] | | | | | Admitting Desk | [address] | | | | | Located on the 9 | [place], [place] | | | | | floor [address] [facility] | [address] | | | | | [facility] | [phone] | | | | | [place], [place] | | | | | | [address] | Viktoriya Jennings MD | | | | | | [address] [facility] | | | | | | [place], | | | | | | [place] [address] | | | | | | [phone] | | | | | | | | +--------+ + + + + Anesthesia Record + + + + + | Procedure Name | Responsible | Anesthesia Start | Anesthesia Stop Time | | | Anesthesiologist | Time | | + + + + + | IRRIGATION AND | Shakila Burgos MD | 09/02/12 1407 | 09/02/12 6379 | | DEBRIDEMENT OF LEFT | | [...]
--- OUTSIDE RECORDS SUMMARY | ~2019-05-28 | XMS | Encounter Summary ---
Demographics + + + | Address | [address] | | | [place] [address] | + + + | Home Phone [...] [place] | | | | | [address] | | + + + + + Care Team Providers + +------+ + | Care Assistant Customer Service Manager Name | Role | Phone | [...] | | [address] | [address] | | | | | [address] | [phone] | | | | | [place] | | | | | | [address] | | | | | | [phone] | | | +--------+---------+ + + + [...] She had been followed by ID at [facility] also. She has had chronic [...] She should keep it strong, use her casting finisher brace as tolerated. Of course she knows [...]
--- OUTSIDE RECORDS SUMMARY | ~2019-05-28 | XMS | Encounter Summary ---
Demographics + + + | Address | [address] | | | [place] [address] | + + + | Home Phone [...] [place] | | | | | [address] | | + + + + + Care Team Providers + +------+ + | Care Cleaner Laboratory Equipment Name | Role | Phone | + [...] [facility] | | | | | | [address] | | | | | | [place] Mailcode: | | | | | | PV450 Physician's | | | | | | [place], | | | | | | [place] [address] | | | | | | [phone] | | | +--------+ + + + [...] | | + +---------+ + + | [facility]MENT OF | | | | | RADIOLOGY | | | | + +---------+ + + documented in this encounter Visit Diagnoses + + | Diagnosis | + + | Osteomyelitis of knee region (HCC) Unspecified osteomyelitis, lower leg | + + documented in this encounter"
[~2019-05-28 22:31] MED LIST changes: +CEPHALEXIN500 MG PO; +DOXYCYCLINE HY100 MG PO; +ROBAXIN-750750 MG PO; +SERTRALINE HCL50 MG PO
--- OUTSIDE RECORDS SUMMARY | 2019-05-28 22:34 | XMS ---
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 Security Events currently on file CRITERIA MET - 6 ED Visits in 6 Months - [facility] - Has Care Guidelines - PDMP - [facility] - 2 Visits in 30 Days CARE PROVIDERS JOSÉ MANUEL KENNY Nurse Practitioner 04/26/2019-Current [place] PHONE: Unknown SARA CLIFFORD Physician 07/14/2015-Tai Condon PHONE: [phone] SARA CLIFFORD Primary Care Current PHONE: Unknown LATRELL SKINNER Primary Care Tai RON PHONE: Unknown SARA CLIFFORD Primary Care 07/14/2015-[facility] PHONE: [phone] [facility] Primary Care 07/14/2015-[facility] PHONE: [phone] Guidelines Source: [facility] Guidelines Date: 02/15/2019 Care Coordination: Mental health services provided by [facility].\T\nbsp; Please contact [facility] with mental health concerns.\T\nbsp; Serina/Edward [facility]: [phone]\T\ nbsp; [place]: [phone]. E.D. VISIT COUNT (12 MO.) [address] [place] TOTAL 6 NOTE: Visits indicate total known visits. ED/UCC VISIT TRACKING (12 MO.) 05/28/2019 22:32 [facility] [place] TYPE: Emergency COMPLAINT: - LT KNEE INJURY 05/01/2019 01:28 [facility] [place] TYPE: Emergency DIAGNOSES: - COUGH EAR PAIN FEVER - Otitis media, unspecified, right ear - Acute bronchitis, unspecified 04/23/2019 20:00 [facility] [place] TYPE: Emergency COMPLAINT: - SKIN PROBLEM DIAGNOSES: - Local infection of the skin and subcutaneous tissue, unsp - Attention-deficit hyperactivity disorder, unspecified type - Allergy status to sulfonamides status - Allergy status to penicillin - Cellulitis of right lower limb - Other nonmedicinal substance allergy status - Nicotine dependence, unspecified, uncomplicated - Other halfway (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 04/06/2019 00:58 [facility] [place] TYPE: Emergency DIAGNOSES: - Acute pharyngitis, unspecified - sore throat 02/14/2019 15:53 [facility] [place] TYPE: Emergency DIAGNOSES: - WEAKNES NAUSEA VOMITING - Nausea with vomiting, unspecified - Dizziness and giddiness 12/11/2018 17:21 [facility] [place] TYPE: Emergency DIAGNOSES: - Unspecified abdominal pain - L FLANK PAIN INPATIENT VISIT TRACKING (12 MO.) No inpatient visits to display in this time frame [id number]
[2019-05-28] MEDS ORDERED: NORCO 5-325 TA1 EACH PO (23:49)
[2019-05-28] MEDS ORDERED: CRUTCH1 EACH (23:50)
== END 2019-05-29 00:17 | disposition home or self-care (01) ==
LOC: ED 22:31
DX: S83.92XA Sprain of unspecified site of left knee, initial encounter (principal); F17.200 Nicotine dependence, unspecified, uncomplicated; F90.9 Attention-deficit hyperactivity disorder, unspecified type; Z88.0 Allergy status to penicillin; Z88.2 Allergy status to sulfonamides; Z91.048 Other nonmedicinal substance allergy status; Z79.899 Other long term (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; X50.1XXA Overexertion from prolonged static or awkward postures, initial encounter
CPT/HCPCS: 73560; 99283

== ENCOUNTER 2019-08-17 20:37 | Emergency (ER) | payer OTHER ==
[~2019-08-17] VITALS: Ht 170.2 cm; Wt 86.2 kg
--- OUTSIDE RECORDS SUMMARY | ~2019-08-17 | XMS | Encounter Summary ---
Demographics + + + | Address | [address] | | | [place] [address] | + + + | Home Phone | | + + + | Preferred Language | Unknown | + + + | Marital Status | Single | + + + | Shinto Affiliation | LUT | + + + | Race | White | + + + | Ethnic Group | Not or | + + + Author + + + | Author | [facility] | + + + | Organization | [facility] | + + + | Address | Unknown | + + + | Phone | Unavailable | + + + Support + + + + + | Name | Relationship | Address | Phone | + + + + + | Grisel Marc | ECON | [address] | | | | | [place] | | | | | [address] | | + + + + + Care Team Providers + +------+ + | Care Valve Maker Name | Role | Phone | + +------+ + | Adilia BobP | PCP | | + +------+ + Encounter Details +--------+ + + + + | Date | Type | Department | Care Team | Description | +--------+ + + + + | 10/15/ | Hospital | Diagnostic | | | | 2012 | Encounter | Radiology at [facility] | | | | | | [address] | | | | | | [address] Mailcode: | | | | | | PV450 Physician's | | | | | | [place], | | | | | | [place] [address] | | | | | | [phone] | | | +--------+ + + + [...] Yes | | | 4 beers on Friday | | | | | and Sturday [...] + + documented as of this encounter Medications at Time of Discharge + + + +---------+--------+ + | Medication | Sig | Dispensed | Refills | Start | End Date | | | | | | Date | | + + + +---------+--------+ + | albuterol 90 | Inhale 1-2 Puffs | | 0 | | | | mcg/actuation | every four hours as | | | | | | Inhalation HFA | needed. | | | | | | Aerosol Inhaler | | | | | | + + + +---------+--------+ + documented as of this encounter Plan of Treatment Not on filedocumented as of this encounter Procedures + +--------+ + + + | Procedure Name | Priori | Date/Time | Associated Diagnosis | Comments | | | ty | | | | + +--------+ + + + | X-RAY TIBIA & FIBULA | Routin | 10/15/2012 | Osteomyelitis of | Results for this | | 2 VIEWS LT | e | 1:29 PM | knee region (HCC) | procedure are in the | | | | PST | | results section. | + +--------+ + + + documented in this encounter Results X-RAY TIBIA & FIBULA 2 VIEWS LT (10/15/2012 1:29 PM PST) + + + + + + | Component | Value | Ref Range | Performed | Pathologist | | | | | At | Signature | + + + + + + | TIBIA AND | STUDY: TIBIA AND FIBULA | | | | | FIBULA 2 | 2 VIEWS LT 10/15/12 | | | | | VIEWS LT | 13:29:00 COMPARISON: | | | | | | 09/02/12. HISTORY: | | | | | | Osteomyelitis. FINDINGS: | | | | | | There is partial | | | | | | resorption of the | | | | | | antibiotic beads in the | | | | | | proximaltibial | | | | | | diametaphysis. No new | | | | | | focal osseous | | | | | | destruction is | | | | | | observed.Patchy | | | | | | lucencies and sclerosis | | | | | | within the medial tibial | | | | | | plateau areunchanged. | | | | | | There is diffuse | | | | | | osteopenia. No | | | | | | fracture is seen. | | | | | | Thejoint spaces are | | | | | | maintained. There is | | | | | | trace joint effusion. | | | | | | IMPRESSION: Partial | | | | | | resorption of antibiotic | | | | | | beads in the proximal | | | | | | left tibia. No new focal | | | | | | areas of osseous | | | | | | destruction. Attending | | | | | | Radiologists: ESEQUIEL | | | | | | KAYLA PAIZuthor: | | | | | | ESEQUIEL PAIZ MD I | | | | | | have personally viewed | | | | | | this procedure/exam, | | | | | | reviewed this report,and | | | | | | made changes to it | | | | | | where appropriate. | | | | | | Final/Electronically | | | | | | signed / ESEQUIEL | | | | | | CHENCHO 10/15/2012 | | | | | | 13:51PM | | | | + + + + + + + + | Specimen | + + | | + + + +---------+ + + | Performing | Address | City/State/Zipcode | Phone Number | | Organization | | | | + +---------+ + + | [facility] | | | | | RADIOLOGY | | | | + +---------+ + + documented in this encounter Visit Diagnoses + + | Diagnosis | + + | Osteomyelitis of knee region (HCC) Unspecified osteomyelitis, lower leg | + + documented in this encounter"
--- OUTSIDE RECORDS SUMMARY | ~2019-08-17 | XMS | Encounter Summary ---
Demographics + + + | Address | [address] | | | [place] [address] | + + + | Home Phone | | + + + | Preferred Language | Unknown | + + + | Marital Status | Single | + + + | Holiness Affiliation | LUT | + + + | Race | White | + + + | Ethnic Group | Not or | + + + Author + + + | Author | [facility] | + + + | Organization | [facility] | + + + | Address | Unknown | + + + | Phone | Unavailable | + + + Support + + + + + | Name | Relationship | Address | Phone | + + + + + | Grisel Marc | ECON | [address] | | | | | [place] | | | | | [address] | | + + + + + Care Team Providers + +------+ + | Care Taker Off Hemp Fiber Name | Role | Phone | + +------+ + | Adilia BobP | PCP | | + +------+ + Encounter Details +--------+ + + + + | Date | Type | Department | Care Team | Description | +--------+ + + + + | 09/29/ | Hospital | Diagnostic | | | | 2012 | Encounter | Radiology at [facility] | | | | | | [address] | | | | | | [address] Mailcode: | | | | | | [id number] [facility] | | | | | | [place], | | | | | | [place] [address] | | | | | | [phone] | | | +--------+ + + + [...] | + +--------+ + + + | ORDERS OTHER | | 09/29/2012 | | Results for this | | | | 12:00 AM | | procedure are in the | | | | PST | | results section. | + +--------+ + + + documented in this encounter Results ORDERS OTHER (09/29/2012 12:00 AM PST) + + + | Narrative | Performed At | + + + | | | | | | + + + + + | Procedure Note | + + | He Layne - 11/30/2012 10:30 AM PDT | + + documented in this encounter Visit Diagnoses + + | Diagnosis | + + | Swelling of joint of upper arm Effusion of upper arm joint | + + | Encounter for long-term (current) use of antibiotics | + + documented in this encounter"
--- OUTSIDE RECORDS SUMMARY | ~2019-08-17 | XMS | Encounter Summary ---
Demographics + + + | Address | [address] | | | [place] [address] | + + + | Home Phone | | + + + | Preferred Language | Unknown | + + + | Marital Status | Single | + + + | Oriental Orthodox Affiliation | LUT | + + + | Race | White | + + + | Ethnic Group | Not or | + + + Author + + + | Author | [facility] | + + + | Organization | [facility] | + + + | Address | Unknown | + + + | Phone | Unavailable | + + + Support + + + + + | Name | Relationship | Address | Phone | + + + + + | Grisel Marc | ECON | [address] | | | | | [place] | | | | | [address] | | + + + + + Care Team Providers + +------+ + | Care Genetic Technologist Name | Role | Phone | + +------+ + | Adilia BobP | PCP | | + +------+ + Reason for Visit +--------+ + | Reason | Comments | +--------+ + | Other | postop drainage | +--------+ + Encounter Details +--------+ + + + + | Date | Type | Department | Care Team | Description | +--------+ + + + + | 09/21/ | Telephone | Orthopaedics at | Alton Hernandez MD | Other (postop | | 2012 | | [facility] [address] | | drainage) | | | | [address] | | | | | | Mailcode: [id number] | | | | | | [facility] | | | | | | [place], [place] | | | | | | [address] | | | | | | [phone] | | | +--------+ + + + [...]
--- OUTSIDE RECORDS SUMMARY | ~2019-08-17 | XMS | Encounter Summary ---
Demographics + + + | Address | [address] | | | [place] [address] | + + + | Home Phone | | + + + | Preferred Language | Unknown | + + + | Marital Status | Single | + + + | Hindu Affiliation | LUT | + + + | Race | White | + + + | Ethnic Group | Not or | + + + Author + + + | Author | [facility] | + + + | Organization | [facility] | + + + | Address | Unknown | + + + | Phone | Unavailable | + + + Support + + + + + | Name | Relationship | Address | Phone | + + + + + | Grisel Marc | ECON | [address] | | | | | [place] | | | | | [address] | | + + + + + Care Team Providers + +------+ + | Care Spare Parts Clerk Name | Role | Phone | + +------+ + | No Pcp Per Patient | PCP | Unavailable | + +------+ + Reason for Referral Consultation (Routine) +--------+--------+ + + + + | Status | Reason | Specialty | Diagnoses / | Referred By | Referred To | | | | | Procedures | Contact | Contact | +--------+--------+ + + + + | Closed | | Infectious | Diagnoses | Mary, | Cisco, | | | | Disease | 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 | | | | | (avascular | [address] | [address] | | | | | necrosis of | [facility] | [place] | | | | | bone) (HCC) | Rd | [address] | | | | | Septic | [place], [place] | [place], | | | | | 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[address] | [place] [address] | | | | | knee, left | | Phone: | | | | | ([facility]) | | [phone] | | | | | Procedures | | Fax: | | | | | CONSULT TO | | [phone] | | | | | INFECTIOUS | | | | | | | DISEASE | | | +--------+--------+ + + + + PROC - Inpatient Surgery (Routine) +--------+--------+ + + + + | Status | Reason | Specialty | Diagnoses / | Referred By | Referred To | | | | | Procedures | Contact | Contact | +--------+--------+ + + + + | Closed | | Orthopedics | Diagnoses | Lisbeth, | Mary, | | | | | | Adilia Lopez, SAEED | MD Alton | | | | | Osteomyeliti | Family | [address] [facility] | | | | | s of knee | Health | [facility] | | | | | region ([facility]) | Associates | [address] [place], | | | | | AVN | [address] | [place] | | | | | (avascular | [address] | [address] | | | | | necrosis of | [place], | | | | | | bone) ([facility]) | [place] [address] | | | | | | Pathologic | Phone: | | | | | | fracture of | [phone] | | | | | | tibia or | Fax: | | | | | | fibula | [phone] | | | | | | Septic | | | | | | | 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| | | | | | knee, left | | | | | | | ([facility]) | | | | | | | Procedures | | | | | | | REQUEST TO | | | | | | | SURGERY | | | | | | | LOADER OPERATOR/GROUND LEADER | | | | | | | [place] PARTIAL | | | | | | | REMOVAL OF | | | | | | | TIBIA IL | | | | | | | INSERTION | | | | | | | DRUG IMPLANT | | | | | | | DEVICE IL | | | | | | | KNEE | | | | | | | SCOPE,SHAVE | | | | | | | ARTICULAR | | | | | | | CART IL | | | | | | | KNEE | | | | | | | SCOPE,FULL | | | | | | | SYNOVECT | | | +--------+--------+ + + + + Diagnostic Testing (Routine) +--------+--------+ + + + + | Status | Reason | Specialty | Diagnoses / | Referred By | Referred To | | | | | Procedures | Contact | Contact | +--------+--------+ + + + + | Closed | | Radiology | Diagnoses | Brittani, | [facility] | | | | | | MD David | [address] | | | | | Osteomyeliti | [address] | Mirza Perez | | | | | s of knee | [address]za [address] | Rd | | | | | region (HCC) | Rd | Mailcode: | | | | | Procedures | [place], [place] | [address] | | | | | MRI KNEE | [address] | [place] | | | | | LT WWO CONT | Phone: | Research | | | | | | [phone] | Center | | | | | | Fax: | [place], [place] | | | | | | [phone] | [address] | | | | | | | Phone: | | | | | | | [phone] | | | | | | | Fax: | | | | | | | [phone] | +--------+--------+ + + + + Reason for Visit + + + | Reason | Comments | + + + | New patient | | | consultation | | + + + Consultation (Routine) +--------+--------+ + + + + | Status | Reason | Specialty | Diagnoses / | Referred By | Referred To | | | | | Procedures | Contact | Contact | +--------+--------+ + + + + | Closed | | Orthopedic | Diagnoses | No | Mary, | | | | Surgery / | Unspecified | Referring | MD Alton | | | | Orthopedics | | Provider Per | [address] | | | | | osteomyeliti | Patient NO | Mirza Perez | | | | | s, lower leg | REFERRING | Rd [place], | | | | | L medial | PROVIDER PER | [place] | | | | | tibial | PT | [address] | | | | | plateau fx | | | +--------+--------+ + + + + Encounter Details +--------+---------+ + + + | Date | Type | Department | Care Team | Description | +--------+---------+ + + + | 08/06/ | Office | Orthopaedics at | Alton Hernandez MD | Osteomyelitis of | | 2011 | Visit | [facility] [address] | | knee region (HCC) | | | | [address] | | (Primary Dx); AVN | | | | Mailcode: [id number] | | (avascular necrosis | | | | [facility] | | of bone) ([facility]); | | | | [place], [place] | | Pathologic fracture | | | | [address] | | of tibia or fibula; | | | | [phone] | | Septic 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| | | | | knee, left ([facility]) | +--------+---------+ + + + Social History [...] + + + + | Weight | 61.2 kg (135 lb) | 08/06/2012 12:16 PM | | | | | PST | | + + + + + | Height | 170.2 cm (5' 7") | 08/06/2012 12:16 PM | | | | | PST | | + + + + + | Body Mass Index | 21.14 | 08/06/2012 12:16 PM | | | | | PST | | + + + + + documented in this encounter Progress Notes David Peter MD - 08/06/2012 2:03 PM PSTFormatting of this note might be different fr om the original. [facility] Orthopaedic Clinic- New Patient Referring Physician: Dr. Mars Don CC: Chief Complaint Patient presents with New patient consultation Date of Injury: 12/08/11 History of Present Illness: Sandy Marc is a 21 year old female who presents with c oncern for chronic osteomyelitis of the left tibia after suffering a tibial plateau fracture in late November 2011. She reports a very low mechanism of injury, in which she was riding a h orse and felt severe pain in the knee when she was kicking it. She says she thinks she black ed out at some point when this was occurring. She had no falls or other trauma. She does rep ort antecedent knee pain and actually went to the doctor earlier that month, when x-rays wer e obtained and read as negative for fracture. She underwent arthroscopically assisted ORIF of the plateau fracture by Dr. Jerald Don in [place] on 12/10/11. Calcium phosphate cement was used to help buttress the fracture. H er bone was sent to pathology but was not found to be concerning for neoplasm but there were fragments of devitalized bone and hypocellular taylor marrow without inflammation. Her incisi on chronically drained after this, and she underwent several bedside I&D's and ultimately rodriguez d left knee synovectomy and proximal tibial I&D and hardware removed on 04/14/[address] Vidal on. The calcium phosphate cement was not removed at that time. She has been intermittently o n oral antibiotics during this time but never a prolonged course of IV antibiotics. We have reports of intra-operative left leg cultures from 8/2/12 that grew staph aureus (resistant t o penicillin only) and strep agalactiae group B (resistant to clindamycin and tetracycline) and left knee cultures from 01/01/12 that grew [...] brace whenever she is on her fee t. Past Medical History Diagnosis Date Asthma Pericarditis per Logan Shepheard 04/03/11 ER note [facility] section Past Surgical History Procedure Date Leg surgery 12/10/2011 L Nasal septum surgery 02/05/2007 Leg surgery 2011 x3; HWR L prox tibial, I&D, knee synovectomy for infection Medications: Controlled Medications - Schedule II and III Medication Sig Dispense Refill OrderDate EndDate HYDROcodone-acetaminophen 5-500 mg Oral tablet Take 1 Tab by mouth every four hours as needed. Not to exceed 6 tablets per any 24 hour period. (Not to exceed 3250 mg of acetaminop hen from all products per 24 hour period.) Allergies: Amoxicillin and Sulfa(sulfonamide antibiotics) Also lists "Clorifex" with a reac tion of "puke." Review of Systems: Negative in general health, neuro-sensory , cardiopulmonary, gasstrointe stinal, genitourinary and dermatologic systems as documented on the patient infromation shee t sent to medical records (except for depression, current wounds, numbness and loss of muscl e control as well as chest pain and shortness of breath.) Her mother states the chest pain/ shortness of breath has had a negative workup and is thought related to anxiety. No history of recent illness, fevers, chills, nausea, vomiting or weight loss/gain. Physical Exam: Ht 1.702 m (5' 7") | Wt 61.236 kg (135 lb) | BMI 21.14 kg/(m^2) Patient reports a pain level of 5 today. General- Awake & alert female; No acute distress; Alert & oriented to person/place/time; Ap propriate grooming & affect Left leg - moderate synovitic effusion of left knee. 4 cm anteromedial proximal tibial inci jian well-healed with exception of 3 mm open area in center of wound that has honey-crusted appearance but is not actively draining at the moment. Mildly warm to touch. Knee range of m otion 5 to 85 degrees, with ~10 degree additional extension lag. Knee with negative Lisbeth' s, mild laxity to valgus stress, stable to varus stress. Distally neurovascularly intact wit h good pulses, normal sensation, normal distal motor function. Imaging: Several previous images were reviewed, including: X-rays of left knee from 11/14/11 (prior to injury) which demonstrate no fractures, normal al ignment, no concerning lucency or pathologic appearance of bone. CT of left knee from 12/09/11, which demonstrates medial plateau depression fracture Fluoroscopic images from 12/10/11 which demonstrates fixation of plateau fracture with 2 scre ws and bone cement placement Fluoroscopic images from 04/14/12 which demonstrates absence of previously seen hardware, wit h residual bone cement in tibia In addition, we have a report of an MRI w/ contrast done on 07/09/12 at [facility], but are unable to view the images themselves. Per report, there is a contrast-enhancing area in the proximal tibia that is most pronounced in the medial plateau and adjacent to the cement, concerning for osteomyelitis. Also reports left knee moderate effusion with synovitis and lateral femoral condyle anterior curvilinear bone marrow edema consistent with "subchondral fracture ... that can be seen with avascular necrosis." We also have x-rays obtained today in clinic of the knee, which demonstrates no apparent fr acture lines, anatomic-appearing reduction of the articular surface of the plateau, with res idual calcium phosphate cement in the proximal tibia. Assessment/ Plan: The patient's history is concerning for chronic osteomyelitis and possibl y septic arthritis as well. This would likely be a post-operative MSSA and Group B Strep in fection after a pathologic fracture of the medial tibial plateau possibly due to avascular n ecrosis. She does not appear to have had a prolonged course of IV antibiotics and has retain ed calcium phosphate bone cement which can behave like a foreign body. Most likely, our plan would be to perform surgical debridement (possibly including arthroscopic I&D of the knee w ith synovectomy) including removal of her calcium phosphate cement, possibly along with plac ement of antibiotic CaSO4 beads, and to have her on long-term IV antibiotics. We will start by getting basic labs (CBC with diff, CMP, ESR, CRP) and repeating her MRI with contrast to get a clearer idea of the extent of any infection that might be present. We will also want t o see her back in clinic with Dr. Peck for antibiotic recommendations and surgical consent . Consideration will be given to aspiration of the knee for cell count and culture at that time based on MRI, lab results and input from Dr. Peck as well. David Peter MD ORTHOPAEDIC ATTENDING ADDENDUM: I have seen and [...] | + +--------+ + + + | LAB REPORTS | | 08/06/2012 | | Results for this | | | | 12:00 AM | | procedure are in the | | | | PST | | results section. | + +--------+ + + + | LAB REPORTS | | 08/06/2012 | | Results for this | | | | 12:00 AM | | procedure are in the | | | | PST | | results section. | + +--------+ + + + | RADIOLOGY | | 08/06/2012 | | Results for this | | | | 12:00 AM | | procedure are in the | | | | PST | | results section. | + +--------+ + + + | PATHOLOGY | | 08/06/2012 | | Results for this | | | | 12:00 AM | | procedure are in the | | | | PST | | results section. | + +--------+ + + + documented in this encounter Results MRI KNEE LT WWO CONT (08/24/2012 6:16 PM PST) + + + + + + | Component | Value | Ref Range | Performed | Pathologist | | | | | At | Signature | + + + + + + | MR KNEE LT | STUDY: MRI KNEE LEFT | | | | | WWO CONT | W/WO CONTRAST 08/24/12 | | | | | | 18:16:00 INDICATION: | | | | | | Concern for chronic | | | | | | osteomyelitis. History | | | | | | of tibialplateau | | | | | | fracture. TECHNIQUE: The | | | | | | following MR pulse | | | | | | sequences were obtained | | | | | | through theleft knee:1. | | | | | | Axial T1, | | | | | | fat-suppressed | | | | | | intermediate TE weighted | | | | | | FSE andfat-suppressed | | | | | | postcontrast T1.2. | | | | | | Coronal T1.3. | | | | | | Sagittal | | | | | | fat-suppressed | | | | | | intermediate TE weighted | | | | | | FSE andfat-suppressed | | | | | | postcontrast | | | | | | T1.Postcontrast images | | | | | | were obtained after | | | | | | administration 13 mm | | | | | | OmniscanIV. COMPARISON: | | | | | | 07/01/2012. FINDINGS: | | | | | | There are postsurgical | | | | | | changes compatible with | | | | | | open reductioninternal | | | | | | fixation of a prior | | | | | | medial tibial plateau | | | | | | fracture.Micro-metallic | | | | | | artifact is also present | | | | | | within the anterior | | | | | | kneejoint. Markedly T1 | | | | | | and T2 hypointense | | | | | | material within the | | | | | | proximaltibial | | | | | | metaphysis is present, | | | | | | compatible in appearance | | | | | | with bonecement, | | | | | | unchanged from the prior | | | | | | MRI. Obliquely | | | | | | oriented transversescrew | | | | | | tracks are present | | | | | | within the subchondral | | | | | | tibial plateau fromprior | | | | | | fixation hardware. | | | | | | The screw tracks show | | | | | | T2 hyperintensity | | | | | | andenhancement, | | | | | | unchanged. Confluent | | | | | | T1 hypointense signal, | | | | | | milddiffuse T2 | | | | | | hyperintensity and | | | | | | enhancement within the | | | | | | medial tibialplateau | | | | | | extending distally into | | | | | | the proximal tibial | | | | | | metaphysis | | | | | | andsurrounding the bone | | | | | | cement is similar in | | | | | | appearance to the | | | | | | priorstudy. No new | | | | | | area of marrow signal | | | | | | abnormality is seen. | | | | | | More focaland | | | | | | circumscribed area of | | | | | | decreased T1 signal | | | | | | within the medialtibial | | | | | | plateau subchondral | | | | | | marrow which extends | | | | | | anteriorly and | | | | | | iscontinuous with the | | | | | | larger area of medial | | | | | | tibial signal | | | | | | abnormality(see coronal | | | | | | T1 images 9-16, sagittal | | | | | | T2 images 13-17) is | | | | | | unchangedand may | | | | | | represent osteonecrosis. | | | | | | Diffuse periosteal | | | | | | enhancement alongthe | | | | | | proximal medial tibial | | | | | | metaphysis and pretibial | | | | | | fat subjacent tothe | | | | | | patellar tendon is also | | | | | | similar to before. The | | | | | | distal end of thesignal | | | | | | abnormality along the | | | | | | proximal tibia and | | | | | | anterior soft tissuesis | | | | | | not included in the | | | | | | field of view. Distal | | | | | | femoral bone marrow | | | | | | signal has almost | | | | | | normalized, with | | | | | | onlyminimal T2 | | | | | | hyperintensity and | | | | | | enhancement within the | | | | | | lateral femoralcondyle | | | | | | at the site of | | | | | | previously seen | | | | | | curvilinear subchondral | | | | | | [id number] hyperintensity | | | | | | and enhancement, most | | | | | | likely | | | | | | representinghealing | | | | | | fracture. Distal femoral | | | | | | and fibular bone marrow | | | | | | signalintensity is | | | | | | otherwise normal. | | | | | | There is no knee joint | | | | | | effusion;only trace | | | | | | joint fluid is present. | | | | | | Diffuse synovial | | | | | | enhancement | | | | | | issubstantially | | | | | | decreased from the prior | | | | | | exam. There is no new | | | | | | jointcentered | | | | | | destruction or increased | | | | | | femoral bone marrow | | | | | | signalabnormality. No | | | | | | abscess or organized | | | | | | fluid collection is | | | | | | presentwithin the soft | | | | | | tissues. While the | | | | | | study was not tailored | | | | | | forevaluation of | | | | | | internal derangement | | | | | | there is decreased | | | | | | definition ofthe distal | | | | | | aspect of the anterior | | | | | | cruciate ligament fibers | | | | | | near itstibial | | | | | | attachment possibly due | | | | | | to increased | | | | | | nonenhancing | | | | | | granulationtissue within | | | | | | the intracondylar notch | | | | | | or as a result of prior | | | | | | injury. The menisci are | | | | | | not fully assessed, but | | | | | | appear intact. | | | | | | Subchondralcortical | | | | | | irregularity and | | | | | | cartilage loss are | | | | | | present at the site | | | | | | ofprior medial tibial | | | | | | plateau fracture. No | | | | | | other gross | | | | | | cartilagedefect is | | | | | | identified. The no | | | | | | meniscal tear is | | | | | | definitely identified. | | | | | | The medial and lateral | | | | | | supporting structures | | | | | | are grossly intact. | | | | | | IMPRESSION: Postsurgical | | | | | | changes of open | | | | | | reduction internal | | | | | | fixation of a | | | | | | medialtibial plateau | | | | | | fracture with proximal | | | | | | tibial bone cement. | | | | | | Irregularproximal | | | | | | medial tibial bone | | | | | | marrow T2 signal | | | | | | abnormality | | | | | | andenhancement are | | | | | | stable, likely | | | | | | representing a | | | | | | combination of | | | | | | sequelafrom prior | | | | | | fracture and surgery | | | | | | with superimposed | | | | | | chronic/treatedosteomyel | | | | | | itis. No evidence for | | | | | | progression is seen when | | | | | | compared tothe prior | | | | | | study. There is no new | | | | | | osseous or joint | | | | | | centereddestruction and | | | | | | no soft tissue abscess. | | | | | | Decreased left knee | | | | | | synovitis. Near complete | | | | | | resolution of | | | | | | previously seen | | | | | | curvilinear | | | | | | lateralfemoral condyle | | | | | | bone marrow edema, most | | | | | | likely representing | | | | | | healingsubchondral | | | | | | fracture. Attending | | | | | | Radiologists: Mikal | | | | | | Thiago JohnsonAuthor: | | | | | | Geovanni Hinson M.D. I | | | | | | have personally viewed | | | | | | this procedure/exam, | | | | | | reviewed this report,and | | | | | | made changes to it | | | | | | where appropriate. | | | | | | Final/Electronically | | | | | | signed / Mikal | | | | | | Alex 08/25/2012 17:30 | | | | | | PM Pending final | | | | | | approval / Geovanni | | | | | | Sravan 08/25/2012 | | | | | | 11:52 AM Preliminary / | | | | | | Geovanni Hinson | | | | | | 08/25/2012 7:16 AM | | | | + + + + + + + + | Specimen | + + | | + + + +---------+ + + | Performing | Address | City/State/Zipcode | Phone Number | | Organization | | | | + +---------+ + + | [facility] | | | | | RADIOLOGY | | | | + +---------+ + + C-REACT PRTN (FOR INFLAMMATION) (08/06/2012 3:27 PM PST) + +-------+ + + + | Component | Value | Ref Range | Performed | Pathologist | | | | | At | Signature | + +-------+ + + + | C-REACTIVE | 0.5 | <=0.5 mg/dL | [facility] | | [facility] | | | [facility] | | | | | | [place] | | + +-------+ + + + + + | Specimen | + + | Blood - Blood | + + + + + + + | Performing | Address | City/State/Zipcode | Phone Number | | Organization | | | | + + + + + | [facility] | [address] | [place] [address] | | | [place] | | | | + + + + + SEDIMENTATION RATE (08/06/2012 3:27 PM PST) + +-------+ + + + | Component | Value | Ref Range | Performed | Pathologist | | | | | At | Signature | + +-------+ + + + | SEDIMENTATI | 14 | 0 - 20 mm/hr | [facility] | | | ON RATE | | | LABORATORY | | | | | | SERVICES, | | | | | | CORE | | + +-------+ + + + + + | Specimen | + + | Blood - Blood | + + + + + + + | Performing | Address | City/State/Zipcode | Phone Number | | Organization | | | | + + + + + | [facility] | [address] | [place] [address] | | | SERVICES, CORE | [address] | | | + + + + + COMPLETE METABOLIC SET (NA,K,CL,CO2,BUN,CREAT,GLUC,CA,AST,ALT,BILI TOTAL,ALK PHOS,ALB,PROT TOTAL) (08/06/2012 3:27 PM PST) + +---------+ + + + | Component | Value | Ref Range | Performed | Pathologist | | | | | At | Signature | + +---------+ + + + | GLUCOSE, | 86 | 60 - 99 mg/dL | [facility] | | | PLASMA | | | LABORATORY | | | (LAB) | | | SERVICES, | | | | | | CORE | | + +---------+ + + + | BUN, PLASMA | 13 | 6 - 20 mg/dL | [facility] | | | (LAB) | | | LABORATORY | | | | | | SERVICES, | | | | | | CORE | | + +---------+ + + + | CREATININE | 0.65 | 0.60 - 1.10 | [facility] | | | PLASMA | | mg/dL | LABORATORY | | | (LAB) | | | SERVICES, | | | | | | CORE | | + +---------+ + + + | EGFR | >60 | mL/min | [facility] | | | - | | | LABORATORY | | | QATARI | | | SERVICES, | | | | | | CORE | | + +---------+ + + + | EGFR NON | >60 | mL/min | [facility] | | | -SARAH | | | LABORATORY | | | RICAN | | | SERVICES, | | | | | | CORE | | + +---------+ + + + | SODIUM, | 138 | 136 - 145 | [facility] | | | PLASMA | | mmol/L | LABORATORY | | | (LAB) | | | SERVICES, | | | | | | CORE | | + +---------+ + + + | POTASSIUM, | 3.6 | 3.4 - 5.0 | [facility] | | | PLASMA | | mmol/L | LABORATORY | | | (LAB) | | | SERVICES, | | | | | | CORE | | + +---------+ + + + | CHLORIDE, | 103 | 97 - 108 mmol/L | [facility] | | | PLASMA | | | LABORATORY | | | (LAB) | | | SERVICES, | | | | | | CORE | | + +---------+ + + + | TOTAL CO2, | 28 | 21 - 32 mmol/L | [facility] | | | PLASMA | | | LABORATORY | | | (LAB) | | | SERVICES, | | | | | | CORE | | + +---------+ + + + | CALCIUM, | 9.1 | 8.6 - 10.2 | [facility] | | | PLASMA | | mg/dL | LABORATORY | | | (LAB) | | | SERVICES, | | | | | | CORE | | + +---------+ + + + | BILIRUBIN | 0.3 | 0.3 - 1.2 mg/dL | [facility] | | | TOTAL | | | LABORATORY | | | | | | SERVICES, | | | | | | CORE | | + +---------+ + + + | TOTAL | 8.2 (H) | 6.1 - 7.9 g/dL | [facility] | | | PROTEIN, | | | LABORATORY | | | PLASMA | | | SERVICES, | | | (LAB) | | | CORE | | + +---------+ + + + | ALBUMIN, | 4.0 | 3.5 - 4.7 g/dL | [facility] | | | PLASMA | | | LABORATORY | | | (LAB) | | | SERVICES, | | | | | | CORE | | + +---------+ + + + | ALK PHOS | 82 | 42 - 98 U/L | [facility] | | | | | | LABORATORY | | | | | | SERVICES, | | | | | | CORE | | + +---------+ + + + | AST(SGOT) | 16 | 15 - 41 U/L | [facility] | | | | | | LABORATORY | | | | | | SERVICES, | | | | | | CORE | | + +---------+ + + + | ALT (SGPT) | 24 | 12 - 60 U/L | [facility] | | | | | | LABORATORY | | | | | | SERVICES, | | | | | | CORE | | + +---------+ + + + | ANION | 7 | 4 - 11 mmol/L | [facility] | | | GAP(ALB | | | LABORATORY | | | CORRECTED) | | | SERVICES, | | | | | | CORE | | + +---------+ + + + | POTASSIUM | No Hemo | | [facility] | | | CMNT | | | LABORATORY | | | | | | SERVICES, | | | | | | CORE | | + +---------+ + + + | BILI T CMNT | No Hemo | | [facility] | | | | | | LABORATORY | | | | | | SERVICES, | | | | | | CORE | | + +---------+ + + + | AST CMNT | No Hemo | | [facility] | | | | | | LABORATORY | | | | | | SERVICES, | | | | | | CORE | | + +---------+ + + + | ANION GAP | 7 | 4 - 11 mmol/L | [facility] | | | | | | LABORATORY | | | | | | SERVICES, | | | | | | CORE | | + +---------+ + + + + + | Specimen | + + | Blood - Blood | + + + + + + + | Performing | Address | City/State/Zipcode | Phone Number | | Organization | | | | + + + + + | [facility] | [address] | [place] [address] | | | SERVICES, CORE | [address] | | | + + + + + PATHOLOGY (08/06/2012 12:00 AM PST) + + + | Narrative | Performed At | + + + | | | | | | + + + + + | Procedure Note | + + | [facility] - 08/14/2012 8:41 PM PST | + + LAB REPORTS (08/06/2012 12:00 AM PST) + + + | Narrative | Performed At | + + + | | | | | | + + + + + | Procedure Note | + + | [facility] - 08/14/2012 8:41 PM PST | + + LAB REPORTS (08/06/2012 12:00 AM PST) + + + | Narrative | Performed At | + + + | | | | | | + + + + + | Procedure Note | + + | [facility] - 08/07/2012 1:24 PM PST | + + RADIOLOGY (08/06/2012 12:00 AM PST) + + + | Narrative | Performed At | + + + | | | | | | + + + + + | Procedure Note | + + | [facility] - 08/14/2012 8:41 PM PST | + + documented in this encounter Visit Diagnoses + + | Diagnosis | + + | Osteomyelitis of knee region (HCC) - Primary Unspecified osteomyelitis, lower leg | + + | AVN (avascular necrosis of bone) (HCC) Aseptic necrosis of bone, site unspecified | + + | Pathologic fracture of tibia or fibula Pathologic fracture of tibia and fibula | + + | Septic arthritis of knee, left (HCC) Pyogenic arthritis, lower leg | + + documented in this encounter
--- OUTSIDE RECORDS SUMMARY | ~2019-08-17 | XMS | Encounter Summary ---
Demographics + + + | Address | [address] | | | [place] [address] | + + + | Home Phone | | + + + | Preferred Language | Unknown | + + + | Marital Status | Single | + + + | Islam Affiliation | LUT | + + + | Race | White | + + + | Ethnic Group | Not or | + + + Author + + + | Author | [facility] | + + + | Organization | [facility] | + + + | Address | Unknown | + + + | Phone | Unavailable | + + + Support + + + + + | Name | Relationship | Address | Phone | + + + + + | Grisel Marc | ECON | [address] | | | | | [place] | | | | | [address] | | + + + + + Care Team Providers + +------+ + | Care Artificial Marble Worker Name | Role | Phone | + [...] | | | | [address] | [place] [address] | | | | | Mailcode: [id number] | [phone] | | | | | [facility] | | | | | | [place], [place] | | | | | | [address] | | | | | | [phone] | | | +--------+ + + + [...]
--- OUTSIDE RECORDS SUMMARY | ~2019-08-17 | XMS | Clinical Summary ---
Demographics + + + | Address | [address] | | | [place] [address] | + + + | Home Phone | | + + + | Preferred Language | Unknown | + + + | Marital Status | Single | + + + | Spiritism Affiliation | LUT | + + + | Race | White | + + + | Ethnic Group | Not or | + + + Author + + + | Author | [facility] | + + + | Organization | [facility] | + + + | Address | Unknown | + + + | Phone | Unavailable | + + + Support + + + + + | Name | Relationship | Address | Phone | + + + + + | Grisel Marc | ECON | [address] | | | | | [place] | | | | | [address] | | + + + + + Care Team Providers + +------+ + | Care Regulated Program Manager Name | Role | Phone | + +------+ + | Hina Peterson | PCP | | + +------+ + Source Comments FLIP is fully live on both EpicCare Ambulatory and EpicCare InPatient.[facility] Allergies + + + + + + | Active Allergy | Reactions | Severity | Noted | Comments | | | | | Date | | + + + + + + | Amoxicillin | Diarrhea, Hives, | | 08/06/20 | | | | Rash, Nausea, Nausea | | 12 | | | | and Vomiting | | | | + + + + + + | Latex | | | 09/29/19 | Rash | | | | | 13 | | + + + + + + | Sulfa (Sulfonamide | Hives | | 08/06/20 | | | Antibiotics) | | | 12 | | + + + + + + Medications + + + +---------+------+------+-------+ | Medication | Sig | Dispensed | Refills | Star | End | Statu | | | | | | t | Date | s | | | | | | Date | | | + + + +---------+------+------+-------+ | albuterol 90 | Inhale 1-2 Puffs | | 0 | | | Activ | | mcg/actuation | every four hours as | | | | | e | | Inhalation HFA | needed. | | | | | | | Aerosol Inhaler | | | | | | | + + + +---------+------+------+-------+ | | Inject 150 mg into | | 0 | | | Activ | | medroxyPROGESTERone | the muscle (IM) | | | | | e | | 150 mg/mL | once. | | | | | | | intramuscular | | | | | | | | suspension | | | | | | | + + + +---------+------+------+-------+ | cyclobenzaprine 10 | Take by mouth. | | 0 | 02/2 | | Activ | | mg oral tablet | | | | 2/20 | | e | | | | | | 16 | | | + + + +---------+------+------+-------+ | methylphenidate 10 | | | 0 | 02/1 | | Activ | | mg oral tablet | | | | 8/20 | | e | | | | | | 16 | | | + + + +---------+------+------+-------+ | naproxen 500 mg | | | 6 | 06/0 | | Activ | | oral tablet | | | | 7/20 | | e | | | | | | 16 | | | + + + +---------+------+------+-------+ | polyethylene | | | 11 | 06/1 | | Activ | | glycol 17 gram/dose | | | | 3/20 | | e | | oral powder | | | | 16 | | | + + + +---------+------+------+-------+ Active Problems + + + | Problem | Noted Date | + + + | Back strain | 10/02/2015 | + + + | Internal derangement of knee | 04/19/2014 | + + + + + | Overview: Overview: Patient has had multiple surgeries on her | | right knee. She also had osteomyelitis. 03/11/13 TIBIAL PLATEAU | | FRACTURE WITH HARDWARE. THE HARDWARE removed bone graft done. | | Possible avascular necrosis. Recommended referral to [facility] | | (10/22/2013 note) | + + + + + | Encounter for long-term (current) use of antibiotics | 09/03/2012 | + + + + + | Overview: 08/2012 tibial osteomyelitis 730.26 | + + + + + | Pathologic fracture of tibia or fibula | 08/06/2012 | + + + | Osteomyelitis of knee region | 08/06/2012 | + + + | AVN (avascular necrosis of bone) | 08/06/2012 | + + + | Septic arthritis of knee, left | 08/06/2012 | + + + | Asthma | | + + + Encounters +--------+ + + + + | Date | Type | Specialty | Care Team | Description | +--------+ + + + + | 07/05/ | Abstract | Orthopedics | Note, Orthopedics | Referral (Left Knee | | 2018 | | | Clinic | ) | +--------+ + + + + | 06/25/ | Office | Orthopedics | Tong Saba, | Osteomyelitis of | | 2018 | Visit | | MD | knee region (HCC) | | | | | | (Primary Dx); | | | | | | Articular cartilage | | | | | | disorder; Left knee | | | | | | pain, unspecified | | | | | | chronicity; | | | | | | 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 | +--------+ + + + + | 06/25/ | Lab | | | Osteomyelitis of | | 2018 | | | | knee region (HCC) | +--------+ + + + + | 06/25/ | Travel | | | | | 2018 | | | | | +--------+ + + + + | 06/22/ | Telephone | Orthopedics | Jaci Blue, | Care Coordination | | 2018 | | | PA-C | | +--------+ + + + + | 06/18/ | Office | Orthopedics | Jaci Blue, | Left knee pain, | | 2018 | Visit | | PA-C | unspecified | | | | | | chronicity (Primary | | | | | | Dx); Tears of | | | | | | meniscus and | | | | | | anterior cruciate | | | | | | ligament of left | | | | | | knee, initial | | | | | | encounter; Articular | | | | | | cartilage disorder | +--------+ + + + + | 06/18/ | Travel | | | | | 2018 | | | | | +--------+ + + + + | 06/04/ | Hospital | Radiology | Jaci Blue, | | | 2018 | Encounter | | PA-C | | +--------+ + + + + | 06/04/ | Office | Orthopedics | Jaci Blue, | Left knee pain, | | 2018 | Visit | | ADRIEN-Fernandez | unspecified | | | | | | chronicity (Primary | | | | | | Dx); Tears of | | | | | | meniscus and | | | | | | anterior cruciate | | | | | | ligament of left | | | | | | knee, initial | | | | | | encounter | +--------+ + + + + | 06/04/ | Hospital | Radiology | | | | 2018 | Encounter | | | | +--------+ + + + + | 06/04/ | Travel | | | | | 2019 | | | | | +--------+ + + + + | 05/31/ | Document-Sc | Orthopedics | Kishor Monge, | | | 2018 | annwally | | MD | | +--------+ + + + + | 05/31/ | Document-Sc | Orthopedics | Kishor Monge, | | | 2018 | anned | | MD | | +--------+ + + + + | 05/31/ | Telephone | Orthopedics | Kishor Monge, | ED Visit Follow-up | | 2018 | | | MD | | +--------+ + + + + from Last 3 Months Family History + + +------+ + | Medical History | Relation | Name | Comments | + + +------+ + | Hypertension | | | Grandmother | + + +------+ + + +------+--------+ + | Relation | Name | Status | Comments | + +------+--------+ + Social History + + + +--------+ [...] recent travel history available. | + + Last Filed Vital Signs + + + + + | Vital Sign | Reading | Time Taken | Comments | + + + + + | Blood Pressure | 110/70 | 02/22/2016 9:20 AM | | | | | PDT | | + + + + + | Pulse | 80 | 02/22/2016 9:20 AM | | | | | PDT | | + + + + + | Temperature | 36.1 C (97 F) | 12/08/2012 8:00 AM | | | | | PDT | | + + + + + | Respiratory Rate | 18 | 09/05/2012 7:57 AM | | | | | PST | | + + + + + | Oxygen Saturation | 97% | 02/22/2016 9:20 AM | | | | | PDT | | + + + + + | Inhaled Oxygen | - | - | | | Concentration | | | | + + + + + | Weight | 82.6 kg (182 lb) | 02/22/2016 9:20 AM | | | | | PDT | | + + + + + | Height | 170.2 cm (5' 7") | 02/22/2016 9:20 AM | | | | | PDT | | + + + + + | Body Mass Index | 28.51 | 02/22/2016 9:20 AM | | | | | PDT | | + + + + + Plan of Treatment + + + + + | Health Maintenance | Due Date | Last Done | Comments | + + + + + | Preconception/contra | | | | | ception counseling | 0 | | | | (one segundo question) | | | | + + + + + | Pneumococcal | | | | | vaccination (1 of 1 | 6 | | | | - PPSV23) | | | | + + + + + | Influenza (Flu) | | | | | vaccination (#1) | 9 | | | + + + + + Implants + +------+--------+ +--------+--------+--------+ | Implanted | Type | Area | Manufacture | Device | Shelf | Model | | | | | r | | Expira | / | | | | | | Identi | tion | Serial | | | | | | fier | Date | / Lot | + +------+--------+ +--------+--------+--------+ | Khoi Kit 10ccImplanted: | | Left: | | | 10/31/ | 600-01 | | Qty: 1 on 09/02/2012 by | | Lower | | | 2014 | 0 / | | Alton Hernandez MD at [facility] | | Leg | | | | /10/20 | | INPATIENT REV LOC | | | | | | -H136/ | | | | | | | | 137 | + +------+--------+ +--------+--------+--------+ + + | Description:manufactured by | | biocomposites | + + Procedures + +--------+ + + + | Procedure Name | Priori | Date/Time | Associated Diagnosis | Comments | | | ty | | | | + +--------+ + + + | SEDIMENTATION RATE | Routin | 06/25/2019 | Osteomyelitis of | Results for this | | | e | 8:15 AM | knee region (HCC) | procedure are in the | | | | PST | | results section. | + +--------+ + + + | C-REACTIVE PROTEIN | Routin | 06/25/2019 | Osteomyelitis of | Results for this | | | e | 8:15 AM | knee region (HCC) | procedure are in the | | | | PST | | results section. | + +--------+ + + + | US DOPPLER LOWER | Urgent | 06/04/2019 | Left knee pain, | Results for this | | EXTREMITY LT | | 10:49 AM | unspecified | procedure are in the | | | | PDT | chronicity Tears of | results section. | | | | | meniscus and | | | | | | anterior cruciate | | | | | | ligament of left | | | | | | knee, initial | | | | | | encounter | | + +--------+ + + + | X-RAY KNEE 3 VIEWS | Routin | 06/04/2019 | Left knee pain, | Results for this | | LEFT | e | 8:43 AM | unspecified | procedure are in the | | | | PDT | chronicity | results section. | + +--------+ + + + | X-RAY KNEE 2 VIEWS | Routin | 06/04/2019 | Left knee pain, | Results for this | | RIGHT | e | 8:43 AM | unspecified | procedure are in the | | | | PDT | chronicity | results section. | + +--------+ + + + from Last 3 Months Results C-REACTIVE PROTEIN (06/25/2019 8:15 AM PST) [...] + + + + | [facility] | And | [place] [address] | [phone] | | [facility] | Streets | | | + + + + [...] + + | [facility] | [address] | [place] [address] | [phone] | | [facility] | [facility] | | | + + + + + US DUPLEX LOWER EXTREMITY VENOUS LEFT (06/04/2019 10:49 AM PDT) + + | Specimen | + + | | + + + + + | Narrative | Performed At | + + + | [address] | [facility] | | [place] [address] | DEPARTMENT | | [phone] Name: SANDY MARC Phys: | RADIOLOGY | | JACI BLUE : 1990 Sex: F CSN: | | | [id number] MR# [id number] Exam Date: 06/04/2019 | | | EXAM: LEFT LOWER EXTREMITY DUPLEX DOPPLER ULTRASOUND CLINICAL | | | HISTORY: Left leg swelling, DVT suspected. COMPARISON: None | | | available. TECHNIQUE: Duplex Doppler imaging of the left lower | | | extremity venous system was obtained. FINDINGS: The distal left | | | common femoral vein, femoral vein, deep femoral vein, saphenous vein, | | | popliteal vein, tibial trunk, visualized calf veins and | | | contralateral distal common femoral vein demonstrate normal flow, | | | compressibility and augmentation. IMPRESSION: No evidence of left | | | lower extremity deep vein thrombosis. REPORT SIGNED IN | | | OTHER VENDOR SYSTEM 06/04/2019 Reported by: HELENA BARRAZA MD | | | Electronically signed by: HELENA BARRAZA MD Transcribed | | | Date/Time: 06/04/2019 11:28 Vice President Planning: FLUENCY | | + + + + + | Procedure Note | + + | Interface, Radiology Results - 06/04/2019 11:36 AM PDT [address] | | [place] [address] | | Name: ANGELICA MARCAlex Phys: IZABELLAJACI : 1990 Sex: F | | CSN: [id number] MR# [id number] Exam Date: 06/04/2019 EXAM:LEFT LOWER EXTREMITY | | DUPLEX DOPPLER ULTRASOUND CLINICAL HISTORY:Left leg swelling, DVT suspected. | | COMPARISON:None available. TECHNIQUE:Duplex Doppler imaging of the left lower extremity | | venous system wasobtained. FINDINGS:The distal left common femoral vein, femoral vein, | | deep femoral vein,saphenous vein, popliteal vein, tibial trunk, visualized calf veinsand | | contralateral distal common femoral vein demonstrate normal flow,compressibility and | | augmentation. IMPRESSION:No evidence of left lower extremity deep vein thrombosis. | | REPORT SIGNED IN OTHER VENDOR SYSTEM 06/04/2019 Reported by: HELENA BARRAZA MD | | Electronically signed by: HELENA BARRAZA MD Transcribed Date/Time: 06/04/2019 | | 11:28Transcriptionist: YORDY | |LEFT LOWER EXTREMITY DUPLEX DOPPLER ULTRASOUND | | | |CLINICAL HISTORY: | |Left leg swelling, DVT suspected. | | | |COMPARISON: | |None available. | | | |TECHNIQUE: | |Duplex Doppler imaging of the left lower extremity venous system was | |obtained. | | | |FINDINGS: | |The distal left common femoral vein, femoral vein, deep femoral vein, | |saphenous vein, popliteal vein, tibial trunk, visualized calf veins | |and contralateral distal common femoral vein demonstrate normal flow, | |compressibility and augmentation. | | | |IMPRESSION: | |No evidence of left lower extremity deep vein thrombosis. | | | | | | REPORT SIGNED IN OTHER VENDOR SYSTEM 06/04/2019 | |Reported by: HELENA BARRAZA MD | | | |Electronically signed by: HELENA BARRAZA MD | | | |Transcribed Date/Time: 06/04/2019 11:28 | |Vice President Planning: FLUENCY | | | | | | | + + + +---------+ + + | Performing | Address | City/State/Zipcode | Phone Number | | Organization | | | | + +---------+ + + | [facility] | | | | | [facility] | | | | + +---------+ + + X-RAY KNEE 3 VIEWS LEFT (06/04/2019 8:43 AM PDT) + + | Specimen | + + | | + + + + + | Narrative | Performed At | + + + | [address] [place] [address] | [facility] | | [place] [address] | DEPARTMENT | | [phone] Name: SANDY MARC Phys: | RADIOLOGY | | JACI BLUE : 1990 Sex: F CSN: | | | [id number] MR# [id number] Exam Date: 06/04/2019 | | | EXAM: X-RAY KNEE 3 VIEWS LEFT [id number]; X-RAY KNEE 2 VIEWS RIGHT | | | [id number] CLINICAL HISTORY: Left knee pain. COMPARISON: None | | | available. TECHNIQUE: Bilateral standing AP and sunrise of both | | | knees and a lateral view of the left knee were obtained. | | | FINDINGS: Bones: No acute fracture, focal osseous destruction or | | | osteochondral lesion is present within either knee. There are | | | cystic spaces, likely from remote trauma involving the distal femoral | | | metadiaphysis and the proximal tibial metadiaphysis. There is a | | | possible bone infarct involving the proximal left knee tibial | | | metaphysis. Knee joint: No dislocation or significant | | | suprapatellar recess effusion. Bilateral patellofemoral alignment | | | is normal.No patellofemoral or right knee femorotibial joint space | | | narrowing is present. There is mild medial left knee femorotibial | | | joint space narrowing, subchondral sclerosis and marginal spurring. | | | Soft tissues: Normal. IMPRESSION: 1. Probable remote trauma | | | involving the distal femoral metadiaphysis and proximal tibial | | | metadiaphysis. Questionable bone infarct involving the proximal | | | left knee tibial metaphysis. 2. Mild medial left knee femorotibial | | | osteoarthritis. REPORT SIGNED IN OTHER VENDOR SYSTEM | | | 06/04/2019 Reported by: HELENA BARRAZA MD Electronically | | | signed by: HELENA BARRAZA MD Transcribed Date/Time: 06/04/2019 | | | 23:16 Vice President Planning: YORDY | | + + + + + | Procedure Note | + + | Interface, Radiology Results - 06/04/2019 11:21 PM PDT [address] | | [place] [address] | | Name: SANDY MARC Phys: JACI BLUE : 1990 Sex: F | | CSN: [id number] MR# [id number] Exam Date: 06/04/2019 EXAM:X-RAY KNEE 3 VIEWS | | LEFT 30892; X-RAY KNEE 2 VIEWS RIGHT [id number] CLINICAL HISTORY:Left knee pain. | | COMPARISON:None available. TECHNIQUE:Bilateral standing AP and sunrise of both knees and | | a lateral view ofthe left knee were obtained. FINDINGS:Bones: No acute fracture, focal | | osseous destruction or osteochondrallesion is present within either knee. There are | | cystic spaces,likely from remote trauma involving the distal femoral metadiaphysisand | | the proximal tibial metadiaphysis. There is a possible boneinfarct involving the | | proximal left knee tibial metaphysis. Knee joint: No dislocation or significant | | suprapatellar recesseffusion. Bilateral patellofemoral alignment is | | normal.Nopatellofemoral or right knee femorotibial joint space narrowing ispresent. | | There is mild medial left knee femorotibial joint spacenarrowing, subchondral sclerosis | | and marginal spurring. Soft tissues: Normal. IMPRESSION:1. Probable remote trauma | | involving the distal femoral metadiaphysisand proximal tibial metadiaphysis. | | Questionable bone infarctinvolving the proximal left knee tibial metaphysis.2. Mild | | medial left knee femorotibial osteoarthritis. REPORT SIGNED IN OTHER VENDOR SYSTEM | | 06/04/2019 Reported by: HELENA BARRAZA MD Electronically signed by: HELENA | | MD CHRISTI Transcribed Date/Time: 06/04/2019 23:16Transcriptionist: FLUENCY | | | |TECHNIQUE: | |Bilateral standing AP and sunrise of both knees and a lateral view of | |the left knee were obtained. | | | |FINDINGS: | |Bones: No acute fracture, focal osseous destruction or osteochondral | |lesion is present within either knee. There are cystic spaces, | |likely from remote trauma involving the distal femoral metadiaphysis | |and the proximal tibial metadiaphysis. There is a possible bone | |infarct involving the proximal left knee tibial metaphysis. | | | |Knee joint: No dislocation or significant suprapatellar recess | |effusion. Bilateral patellofemoral alignment is normal.No | |patellofemoral or right knee femorotibial joint space narrowing is | |present. There is mild medial left knee femorotibial joint space | |narrowing, subchondral sclerosis and marginal spurring. | | | |Soft tissues: Normal. | | | |IMPRESSION: | |1. Probable remote trauma involving the distal femoral metadiaphysis | |and proximal tibial metadiaphysis. Questionable bone infarct | |involving the proximal left knee tibial metaphysis. | |2. Mild medial left knee femorotibial osteoarthritis. | | | | | | REPORT SIGNED IN OTHER VENDOR SYSTEM 06/04/2019 | |Reported by: HELENA BARRAZA MD | | | |Electronically signed by: HELENA BARRAZA MD | | | |Transcribed Date/Time: 06/04/2019 23:16 | |Vice President Planning: YORDY | | | | | | | + + + +---------+ + + | Performing | Address | City/State/[facility] | Phone Number | | Organization | | | | + +---------+ + + | [facility] | | | | | [facility]Y | | | | + +---------+ + + X-RAY KNEE 2 VIEWS RIGHT (06/04/2019 8:43 AM PDT) + + | Specimen | + + | | + + + + + | Narrative | Performed At | + + + | [address] [place] [address] | [facility] | | [place] [address] | DEPARTMENT OF | | [phone] Name: DINORA MARCYOU Phys: | RADIOLOGY | | IZABELLAJACI : 1990 Sex: F CSN: | | | [id number] MR# [id number] Exam Date: 06/04/2019 | | | EXAM: X-RAY KNEE 3 VIEWS LEFT [id number]; X-RAY KNEE 2 VIEWS RIGHT | | | 32711 CLINICAL HISTORY: Left knee pain. COMPARISON: None | | | available. TECHNIQUE: Bilateral standing AP and sunrise of both | | | knees and a lateral view of the left knee were obtained. | | | FINDINGS: Bones: No acute fracture, focal osseous destruction or | | | osteochondral lesion is present within either knee. There are | | | cystic spaces, likely from remote trauma involving the distal femoral | | | metadiaphysis and the proximal tibial metadiaphysis. There is a | | | possible bone infarct involving the proximal left knee tibial | | | metaphysis. Knee joint: No dislocation or significant | | | suprapatellar recess effusion. Bilateral patellofemoral alignment | | | is normal.No patellofemoral or right knee femorotibial joint space | | | narrowing is present. There is mild medial left knee femorotibial | | | joint space narrowing, subchondral sclerosis and marginal spurring. | | | Soft tissues: Normal. IMPRESSION: 1. Probable remote trauma | | | involving the distal femoral metadiaphysis and proximal tibial | | | metadiaphysis. Questionable bone infarct involving the proximal | | | left knee tibial metaphysis. 2. Mild medial left knee femorotibial | | | osteoarthritis. REPORT SIGNED IN OTHER VENDOR SYSTEM | | | 06/04/2019 Reported by: HELENA BARRAZA MD Electronically | | | signed by: HEELNA BARRAZA MD Transcribed Date/Time: 06/04/2019 | | | 23:16 Vice President Planning: FLUENCY | | + + + + + | Procedure Note | + + | Interface, Radiology Results - 06/04/2019 11:21 PM PDT [address] | | [address] [place] [address] | | Name: SANDY MARC Phys: JACI BLUE : 1990 Sex: F | | CSN: [id number] MR# [id number] Exam Date: 06/04/2019 EXAM:X-RAY KNEE 3 VIEWS | | LEFT 18635; X-RAY KNEE 2 VIEWS RIGHT [id number] CLINICAL HISTORY:Left knee pain. | | COMPARISON:None available. TECHNIQUE:Bilateral standing AP and sunrise of both knees and | | a lateral view ofthe left knee were obtained. FINDINGS:Bones: No acute fracture, focal | | osseous destruction or osteochondrallesion is present within either knee. There are | | cystic spaces,likely from remote trauma involving the distal femoral metadiaphysisand | | the proximal tibial metadiaphysis. There is a possible boneinfarct involving the | | proximal left knee tibial metaphysis. Knee joint: No dislocation or significant | | suprapatellar recesseffusion. Bilateral patellofemoral alignment is | | normal.Nopatellofemoral or right knee femorotibial joint space narrowing ispresent. | | There is mild medial left knee femorotibial joint spacenarrowing, subchondral sclerosis | | and marginal spurring. Soft tissues: Normal. IMPRESSION:1. Probable remote trauma | | involving the distal femoral metadiaphysisand proximal tibial metadiaphysis. | | Questionable bone infarctinvolving the proximal left knee tibial metaphysis.2. Mild | | medial left knee femorotibial osteoarthritis. REPORT SIGNED IN OTHER VENDOR SYSTEM | | 06/04/2019 Reported by: HELENA BARRAZA MD Electronically signed by: HELENA | | MD CHRISTI Transcribed Date/Time: 06/04/2019 23:16Transcriptionist: FLUENCY | | | |TECHNIQUE: | |Bilateral standing AP and sunrise of both knees and a lateral view of | |the left knee were obtained. | | | |FINDINGS: | |Bones: No acute fracture, focal osseous destruction or osteochondral | |lesion is present within either knee. There are cystic spaces, | |likely from remote trauma involving the distal femoral metadiaphysis | |and the proximal tibial metadiaphysis. There is a possible bone | |infarct involving the proximal left knee tibial metaphysis. | | | |Knee joint: No dislocation or significant suprapatellar recess | |effusion. Bilateral patellofemoral alignment is normal.No | |patellofemoral or right knee femorotibial joint space narrowing is | |present. There is mild medial left knee femorotibial joint space | |narrowing, subchondral sclerosis and marginal spurring. | | | |Soft tissues: Normal. | | | |IMPRESSION: | |1. Probable remote trauma involving the distal femoral metadiaphysis | |and proximal tibial metadiaphysis. Questionable bone infarct | |involving the proximal left knee tibial metaphysis. | |2. Mild medial left knee femorotibial osteoarthritis. | | | | | | REPORT SIGNED IN OTHER VENDOR SYSTEM 06/04/2019 | |Reported by: HELENA BARRAZA MD | | | |Electronically signed by: HELENA BARRAZA MD | | | |Transcribed Date/Time: 06/04/2019 23:16 | |Vice President Planning: FLUENCY | | | | | | | + + + +---------+ + + | Performing | Address | City/State/[facility] | Phone Number | | Organization | | | | + +---------+ + + | [facility] | | | | | [facility] | | | | + +---------+ + + from Last 3 Months Insurance + +--------+ +--------+-------+---------+--------+ | Payer | Benefi | Subscriber | Effect | Phone | Address | Type | | | t Plan | ID | cindi | | | | | | / | | Dates | | | | | | Group | | | | | | + +--------+ +--------+-------+---------+--------+ | SAFETY ASSOCIATE MEDICAID | SAFETY ASSOCIATE | xxxxxxxx | Effect | | | Medica | | | [place] | | cindi | | | id | | | [place] | | for | | | | | | | | all | | | | | | | | dates | | | | + +--------+ +--------+-------+---------+--------+ | SAFETY ASSOCIATE MEDICAID | SAFETY ASSOCIATE | xxxxxxxx | 08/11/19 | | | Medica | | | [place] | | 14-Pre | | | id | | | [place] | | sent | | | | + +--------+ +--------+-------+---------+--------+ + +--------+ +--------+ + + | Guarantor Name | Accoun | Relation to | Date | Phone | Billing Address | | | t Type | Patient | of | | | | | | | | | | + +--------+ +--------+ + + | Sandy Marc | Person | Self [birth year] | [address] | | (Am[place] | al/Fam | | 1990 | [phone] | [place] [address] | | | nayla | | | 2 (Home) | | + +--------+ +--------+ + + | Sandy Marc | Person | Self [birth year] | [address] | | (Aminta Liu | al/Fam | | 1990 | [phone] | [place] [address] | | | nayla | | | 2 (Home) | | + +--------+ +--------+ + + Advance Directives + + + + + | Code Status | Date | Date | Comments | | | Activated | Inactivated | | + + + + + | Full Code | 09/02/2012 | 09/05/2012 | | | | 7:51 PM | 9:09 PM | | + + + + + + + + +---+ | | | | | + + + +---+ | Full Code | 09/02/2012 | 09/02/2012 | | | | 10:40 AM | 7:51 PM | | + + + +---+
--- OUTSIDE RECORDS SUMMARY | ~2019-08-17 | XMS | Encounter Summary ---
Demographics + + + | Address | [address] | | | [place] [address] | + + + | Home Phone | | + + + | Preferred Language | Unknown | + + + | Marital Status | Single | + + + | Christianity Affiliation | LUT | + + + | Race | White | + + + | Ethnic Group | Not or | + + + Author + + + | Author | [facility] | + + + | Organization | [facility] | + + + | Address | Unknown | + + + | Phone | Unavailable | + + + Support + + + + + | Name | Relationship | Address | Phone | + + + + + | Grisel Marc | ECON | [address] | | | | | [place] | | | | | [address] | | + + + + + Care Team Providers + +------+ + | Care Wireline Operator Name | Role | Phone | + +------+ + | Hina Peterson | PCP | | + +------+ + Encounter Details +--------+ + + + + | Date | Type | Department | Care Team | Description | +--------+ + + + + | 01/31/ | Document-Sc | [facility] | Mars Nicolas, | | | 2016 | anned | Sports Medicine & | MD [address] | | | | | Orthopaedic Surgery | [place] | | | | | [place] | [address] | | | | | [place] [facility] | [phone] | | | | | [place] | | | | | | [address] | | | | | | [phone] | | | +--------+ + + + [...]
--- OUTSIDE RECORDS SUMMARY | ~2019-08-17 | XMS | Encounter Summary ---
Demographics + + + | Address | [address] | | | [place] [address] | + + + | Home Phone [...] Author + + + | Author | [facility] | + + + | Organization | [facility] | + + + | Address | Unknown | + + + | Phone | Unavailable | + + + Support + + + + + | Name | Relationship | Address | Phone | + + + + + | Grisel Marc | ECON | [address] | | | | | [place] | | | | | [address] | | + + + + + Care Team Providers + +------+ + | Care Oriental Rug Repairer Name | Role | Phone | + +------+ + | Hina Peterson | PCP | | + +------+ + Reason for Visit + + + | Reason | Comments | + + + | Referral | Left Knee | + + + Encounter Details +--------+ + + + + | Date | Type | Department | Care Team | Description | +--------+ + + + + | 07/05/ | Abstract | Orthopaedics at | Note, Orthopedics | Referral (Left Knee | | 2019 | | [facility] [address] | Clinic | ) | | | | Deborah Mailcode: [id number] | | | | | | [facility] | | | | | | and Healing, | | | | | | Building | | | | | | Floor [place], [place] | | | | | | [address] | | | | | | [phone] | | | +--------+ + + + [...] documented as of this encounter Progress Notes Ludmila Olivas - 07/05/2019 10:51 AM PSTFormatting of this note might be different from the or iginal. Orthopaedics New Patient Record Check List Please ask the following questions: Comments Date requested Records/Imaging received? If so, what format? Where? What would you like to be seen for (body part and laterality)? Left knee consideration for osteochondral allograft DOI, if applicable? Prior Surgery (for this body part)? Yes, when: 2012 (has had 5 knee sx); where: [place] Have you seen anyone for this yet? Yes, where: [facility] Do you have a referring provider? yes who: Tong Saba MD Directed referral?: yes - Dr. Rodriguez X-Ray Yes, when: 06/04/19; [facility]: [facility] MRI Yes, where: [facility] Via phone 07/05/19 Other Imaging (CT, Ultrasound, etc.) No Is this a W/C injury? no If YES, create referral and complete: .[email or web address] inside referral Note: We do not accept WC under [place] as they do not pay at [place] rates. Other out of state claims will only be accepted if they agree to pay at [place] rates docume nted in writing from adjustor. Can you confirm the insurance we will be billing for this visit? Care [place] Note: If OHP, please note which type. E.g. [place], [employer], [employer], etc. ) Reminder: Please create referrals for pts with: HMO, OHP, [place], Self-Pay, W/C, TPL an d ED Post- Ops Can you verify your Primary Care Provider? yes who: Andrey Note: Please update Primary Care Provider in Epic. Are you a current smoker or tobacco user? Yes- If YES, please let patient know that they must be 4 weeks smoke/tobacco-free, tested and do cumented by PCP before having a surgical consult. Height & Weight, if unable to locate in notes or chart. Last recorded patient height: 02/22/16 1.702 m (5' 7") Wt on (02/22/2016) 82.6 kg (182 lb) Last 1 Encounter BMI Readings: Date BMI 02/22/2016 28.5 kg/m2 Patient reported height: 5 ft 7 in Patient reported weight: 190 lbs Note: If over provider BMI preference, for REVIEW. Are you diabetic? no No results found for: A1C Patient reported A1C: n/a Note: If over provider A1C preference, for REVIEW. Medical Review needed? No If yes, create referral Reminders: ? Ask patient if they d like to sign up for [place] ? Don t forget to pull in CareEveryWhere Additional Comments: documented in this encounter Plan of Treatment Not on filedocumented as of this encounter Visit Diagnoses Not on filedocumented in this encounter
--- OUTSIDE RECORDS SUMMARY | ~2019-08-17 | XMS | Encounter Summary ---
Demographics + + + | Address | [address] | | | [place] [address] | + + + | Home Phone [...] [place] | | | | | [address] | | + + + + + Care Team Providers + +------+ + | Care Fire Support Man Name | Role | Phone | + +------+ + | Adilia Bob SENIOR PRIVATE CLIENT ADVISOR | PCP | | + +------+ + Encounter Details +--------+ + + + + | Date | Type | Department | Care Team | Description | +--------+ + + + + | 10/16/ | Property Field Inspector | Infectious | Brigid Hardy | Osteomyelitis of | | 2013 | | Diseases at [facility] [address] | [place] | knee region (HCC) | | | | Floor [address] | | (Primary Dx) | | | | [address] | | | | | | Mailcode: [id number] | | | | | | [facility] | | | | | | [place], [place] | | | | | | [address] | | | | | | [phone] | | | +--------+ + + + [...] | | + +------+--------+ + + | CBC, WITH | Lab | Routin | Osteomyelitis of | Ordered: 10/16/2012 | | DIFFERENTIAL | | e | knee region (HCC) | | + +------+--------+ + + | COMPLETE METABOLIC | Lab | Routin | Osteomyelitis of | Ordered: 10/16/2012 | | SET | | e | knee region (HCC) | | | (NA,K,CL,CO2,BUN,CRE | | | | | | AT,GLUC,CA,AST,ALT,B | | | | | | JENNIFER TOTAL,ALK | | | | | | PHOS,ALB,PROT TOTAL) | | | | | + +------+--------+ + + | SEDIMENTATION RATE | Lab | Routin | Osteomyelitis of | Ordered: 10/16/2012 | | | | e | knee region (HCC) | | + +------+--------+ + + | C-REACT PRTN (FOR | Lab | Routin | Osteomyelitis of | Ordered: 10/16/2012 | | INFLAMMATION) | | e | knee region (HCC) | | + +------+--------+ + + documented as of this encounter Visit Diagnoses + + | Diagnosis | + + | Osteomyelitis of knee region (HCC) - Primary Unspecified osteomyelitis, lower leg | + + documented in this encounter"
--- OUTSIDE RECORDS SUMMARY | ~2019-08-17 | XMS | Encounter Summary ---
Demographics + + + | Address | [address] | | | [place] [address] | + + + | Home Phone [...] Author + + + | Author | [facility] | + + + | Organization | [facility] | + + + | Address | Unknown | + + + | Phone | Unavailable | + + + Support + + + + + | Name | Relationship | Address | Phone | + + + + + | Grisel Marc | ECON | [address] | | | | | [place] | | | | | [address] | | + + + + + Care Team Providers + +------+ + | Care Fiber Optic Splicer Name | Role | Phone | + [...] | | | | | | [place], | | | | | | [place] [address] | | | | | | [phone] | | | +--------+ + + + [...]
--- OUTSIDE RECORDS SUMMARY | ~2019-08-17 | XMS | Encounter Summary ---
Demographics + + + | Address | [address] | | | [place] [address] | + + + | Home Phone | | + + + | Preferred Language | Unknown | + + + | Marital Status | Single | + + + | Orthodoxy Affiliation | LUT | + + + | Race | White | + + + | Ethnic Group | Not or | + + + Author + + + | Author | [facility] | + + + | Organization | [facility] | + + + | Address | Unknown | + + + | Phone | Unavailable | + + + Support + + + + + | Name | Relationship | Address | Phone | + + + + + | Grisel Marc | ECON | [address] | | | | | [place] | | | | | [address] | | + + + + + Care Team Providers + +------+ + | Care Dry House Tender Name | Role | Phone | + +------+ + | Hina Peterson | PCP | | + +------+ + Reason for Referral CC to [facility] (Routine) +--------+--------+ + + + + | Status | Reason | Specialty | Diagnoses / | Referred By | Referred To | | | | | Procedures | Contact | Contact | +--------+--------+ + + + + | Closed | | Orthopedics | Diagnoses | Michele, | Michael, | | | | | | Bambi Johnson, | Agustin Presley, | | | | | Osteomyeliti | [address] | ,PhD 2813 | | | | | s of knee | [address] | [address] | | | | | region (HCC) | [facility] | [facility] | | | | | Articular | Rd | [address] [place], | | | | | cartilage | [place], [place] | [place] | | | | | disorder | [address] | [address] | | | | | Left knee | Phone: | Phone: | | | | | pain, | [phone] | [phone] | | | | | unspecified | Fax: | Fax: | | | | | chronicity | [phone] | [phone] | | | | | Post-traumat | | | | | | | ic | | | | | | | osteoarthrit | | | | | | | is of left | | | | | | | knee | | | | | | | Procedures | | | | | | | CONSULT TO | | | | | | | ORTHOPEDICS | | | | | | | AND | | | | | | | REHABILITATI | | | | | | | ON | | | +--------+--------+ + + + + Reason for Visit + + + | Reason | Comments | + + + | Follow-up visit | Left knee ACL pain | + + + Encounter Details +--------+---------+ + + + | Date | Type | Department | Care Team | Description | +--------+---------+ + + + | 06/25/ | Office | Manpreet Miranda | Tong Saba, | Osteomyelitis of | | 2019 | Visit | Orthopedics [address] | [address] | knee region (HCC) | | | | Janett Case | [place], [place] | (Primary Dx); | | | | [place] [address] | [address] | Articular cartilage | | | | [phone] | [phone] | disorder; Left knee | | | | | | pain, unspecified | | | | | | chronicity; | | | | | | 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 | +--------+---------+ + + + Social History [...] of this encounter Patient Instructions Patient Instructions Vicky Galvan MA - 06/25/2019 10:00 AM PSTReferral to [facility] w [facility]. If you have not heard from them in 1 week please give us a call back to let us kn ow. Follow up as needed. T documented in this encounter Progress Notes Tong Saba MD - 06/25/2019 10:00 AM PSTChief Complaint: Left knee pain HPI: [place] (Sharif-ee-l) Alexa Marc is a 28 y.o. female who returns to the office today in follow up of left knee pain.She has had a complex history with this knee going back 10 year s or so. She had sustained a tibial plateau fracture that required ORIF. This subsequently w as infected with staph.She developed osteo and required multiple surgeries I believe at [facility] to clear this infection over the next 1-2 years. The infection resolved but she has had a p ainful knee for some time. Recently she had a hyperextension injury and an MRI shows an abse nt ACL with marked degenerative changes in the medial compartment. The patient was last seen in the office on 06/18/2019 with Cami Blue. Overall, the patient feels 0% better. Current pain is 6/10 and is characterized as sharp, stabbing, aching, throbbing, constant and intermittent. Symptoms are unchanged. The pain d oes not wake the patient at night. It is associated with swelling. Symptoms are aggravated by standing, walking, stairs, squatting, kneeling, twisting, bending, sitting, exercise and lifting, and improve with rest, compression and elevation. Patient is using hydrocodone fo r the pain. Review of Systems: Completed and reviewed with patient per patient intake form. See scanned document for refe rence. Physical Exam: There were no vitals taken for this visit. Radiology: X-ray examination 06/04/19 demonstrates Markham changes and mild medial joint space narr owing. There are sclerotic changes noted tibial and femur MRI left knee from [facility] demonstrates Chronic ACL tear and medial join t space degenerative changes/cartilage loss, subchondral bone cystic changes Left knee: Inspection: No swelling Palpation: Pain globally. Range of motion: 0-110 Strength: Good quadriceps contracture . 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 for possible osteochondral allograft, reconstr uction Follow up: linda Saba MD [facility] Orthopaedics and Rehabilitation Clinical Administrator Social Welfare Board Certified in Sports Medicine and Orthopaedic Surgery Director of Total Joint Replacement Program, [facility] Orthopaedics and Sports Medicine [address] [place] [address] Office: [phone] documented in this e ncounter Plan of Treatment Not on filedocumented as of this encounter Visit Diagnoses + + | Diagnosis | + + | Osteomyelitis of knee region (HCC) - Primary Unspecified osteomyelitis, lower leg | + + | Articular cartilage disorder | + + | Left knee pain, unspecified chronicity | + + | Post-traumatic osteoarthritis of left knee Secondary localized osteoarthrosis, lower | | leg | + + documented in this encounter"
--- OUTSIDE RECORDS SUMMARY | ~2019-08-17 | XMS | Encounter Summary ---
Demographics + + + | Address | [address] | | | [place] [address] | + + + | Home Phone | | + + + | Preferred Language | Unknown | + + + | Marital Status | Single | + + + | Bahai Affiliation | LUT | + + + [...] [place] | | | | | [address] | | + + + + + Care Team Providers + +------+ + | Care Certified Nurses' Aide Name | Role | Phone | + +------+ + | Adilia Bob STEVEDORE HOLD | PCP | | + +------+ + Encounter Details +--------+ + + + + | Date | Type | Department | Care Team | Description | +--------+ + + + + | 10/13/ | Title I Instructional Assistant | Orthopaedics at | Alton Hernandez MD | Osteomyelitis of | | 2012 | | [facility] [address] | | knee region (HCC) | | | | [address] | | (Primary Dx) | | | | Mailcode: [id number] | | | | | | [facility] | | | | | | [place], [place] | | | | | | [address] | | | | | | [phone] | | | +--------+ + + + [...] | | + +---------+ + + | [facility] DEPARTMENT OF | | | | | RADIOLOGY | | | | + +---------+ + + documented in this encounter Visit Diagnoses + + | Diagnosis | + + | Osteomyelitis of knee region (HCC) - Primary Unspecified osteomyelitis, lower leg | + + documented in this encounter"
--- OUTSIDE RECORDS SUMMARY | ~2019-08-17 | XMS | Encounter Summary ---
Demographics + + + | Address | [address] | | | [place] [address] | + + + | Home Phone | | + + + | Preferred Language | Unknown | + + + | Marital Status | Single | + + + | Scientology Affiliation | LUT | + + + | Race | White | + + + | Ethnic Group | Not or | + + + Author + + + | Author | [facility] | + + + | Organization | [facility] | + + + | Address | Unknown | + + + | Phone | Unavailable | + + + Support + + + + + | Name | Relationship | Address | Phone | + + + + + | Grisel Marc | ECON | [address] | | | | | [place] | | | | | [address] | | + + + + + Care Team Providers + +------+ + | Care Dormitory Keeper Name | Role | Phone | + +------+ + | Hina Peterson | PCP | | + +------+ + Reason for Visit + + + | Reason | Comments | + + + | ED Visit Follow-up | | + + + Encounter Details +--------+ + + + + | Date | Type | Department | Care Team | Description | +--------+ + + + + | 05/31/ | Telephone | [facility] | Kishor Monge, | ED Visit Follow-up | | 2019 | | Sports Medicine & | MD [address] | | | | | Orthopaedic Surgery | [place], [place] | | | | | [address] | [address] | | | | | [place], [place] | [phone] | | | | | [address] | | | | | | [phone] | | | +--------+ + + + [...]
--- OUTSIDE RECORDS SUMMARY | ~2019-08-17 | XMS | Encounter Summary ---
Demographics + + + | Address | [address] | | | [place] [address] | + + + | Home Phone | | + + + | Preferred Language | Unknown | + + + | Marital Status | Single | + + + | Mu-Ism Affiliation | LUT | + + + | Race | White | + + + | Ethnic Group | Not or | + + + Author + + + | Author | [facility] | + + + | Organization | [facility] | + + + | Address | Unknown | + + + | Phone | Unavailable | + + + Support + + + + + | Name | Relationship | Address | Phone | + + + + + | Grisel Marc | ECON | [address] | | | | | [place] | | | | | [address] | | + + + + + Care Team Providers + +------+ + | Care Psych Specialist Name | Role | Phone | [...] | +--------+ + + + + | 09/10/ | Telephone | Infectious | Lavinia Peck, | Care Coordination | | 2012 | | Diseases at [facility] | MD [address] | | | | | [address] | | | | | [address] | [place] [address] | | | | | Mailcode: [id number] | [phone] | | | | | [facility] | | | | | | [place], [place] | | | | | | [address] | | | | | | [phone] | | | +--------+ + + + [...]
--- OUTSIDE RECORDS SUMMARY | ~2019-08-17 | XMS | Encounter Summary ---
Demographics + + + | Address | [address] | | | [place] [address] | + + + | Home Phone [...] [place] | | | | | [address] | | + + + + + Care Team Providers + +------+ + | Care Master Automotive Glass Technician Name | Role | Phone | + +------+ + | Hina Peterson | PCP | | + +------+ + Encounter Details +--------+--------+ + + + | Date | Type | Department | Care Team | Description | +--------+--------+ + + + | 06/04/ | Travel [...]
--- OUTSIDE RECORDS SUMMARY | ~2019-08-17 | XMS | Clinical Summary ---
Demographics + + + | Address | [address] | | | [place] [address] | + + + | Home Phone | | + + + | Preferred Language | Unknown | + + + | Marital Status | Single | + + + | Jewish Affiliation | Unknown | + + + | Race | Unknown | + + + | Ethnic Group | Unknown | + + + Author + + + | Author | [facility] (Historical as of | | | 03-27-19) | + + + | Organization | [facility] (Historical as of | | | 03-27-19) [...] Team Providers + +------+ + | Care Carton Folder Name | Role | Phone | + [...] + | Maternal Aunt | | | [place] | | | | (Age | | [...] + +--------+ +------+-------+ + | MEDICAID | [place] | [id number] | | | [address] | | | N | | | | [place] | | | [place] | | | | [address] | | | STORAGE RECEIPT POSTER | | | | | + +--------+ [...] | [place] | | | [address]22 | [address] | + +--------+ +--------+ + +
--- OUTSIDE RECORDS SUMMARY | ~2019-08-17 | XMS | Clinical Summary ---
Demographics + + + | Address | [address] | | | [place] [address] | + + + | Home Phone | | + + + | Preferred Language | Unknown | + + + | Marital Status | | + + + | Nondenominational Affiliation | Unknown | + + + | Race | Unknown | + + + | Ethnic Group | Unknown | + + + Author + + + | Author | [facility] | | | and [place] | + + + | Organization | [facility] | | | [...] Team Providers + +------+ + | Care Facilities Management Executive Name | Role | Phone | + [...] + | Maternal Aunt | | | [place] | | | | (Age | | [...] M?MRN: | | | | | | [id number] | | | [id number] | | | riteri | | | [...] | | | St. | | | [place] | | | y | | | [...] | | | St. | | | [place] | | | y H. | | [...] | | | St. | | | [place] | | | y H. | | [...] | | ER J, | | | FEEDER OPERATOR | | | Nurse | | | [...] | [employer] | [employer] | [id number] | | [phone] | | Medica | [...] [place] | | | 2 (Home) | [address] | + +--------+ +--------+ + + Advance Directives + + + + + | Type | Date Recorded | Patient | Explanation | | | | Affiliate Marketing Manager | | + + + + + | Power of | | | | | Lamination Inspector | | | | + + + + + | Advance | 06/19/2019 2:16 | | | | Directive | PM | | | + + + + +
--- OUTSIDE RECORDS SUMMARY | ~2019-08-17 | XMS | Encounter Summary ---
Demographics + + + | Address | [address] | | | [place] [address] | + + + | Home Phone | | + + + | Preferred Language | Unknown | + + + | Marital Status | Single | + + + | Mormonism Affiliation | LUT | + + + | Race | White | + + + | Ethnic Group | Not or | + + + Author + + + | Author | [facility] | + + + | Organization | [facility] | + + + | Address | Unknown | + + + | Phone | Unavailable | + + + Support + + + + + | Name | Relationship | Address | Phone | + + + + + | Grisel Marc | ECON | [address] | | | | | [place] | | | | | [address] | | + + + + + Care Team Providers + +------+ + | Care Hardwood Floor Finisher Name | Role | Phone | + [...] + + + + | 09/02/ | Hospital | [facility] [address] | Alton Hernandez MD | | | 2012 - | Encounter | [address] | | | | | | [place] | | | | 09/05/ | | [place] [id number] | | | | 2012 | | [phone] | | | +--------+ + + + [...] Angel MD - 09/10/2012 8:12 AM PST [facility] DEPART[facility] OF [facility]THOPAEDICS & REHABILITATION INPATIENT HOSPITAL DISCHARGE SUMMARY & INTERDISCIPLINARY INSTRUCTIONS Patient: Sandy Marc CSN: [id number] Admission Date: 09/02/2012 Discharge Date: 09/05/2012 Attending Physician: Alton Hernandez MD PCP: SAEED Presley Service: [facility] Orthopaedics & Rehabilitation Diagnoses Principal Final Diagnosis: [...] for > 5 years. , Historical Med [facility] Orthopaedic Service Pain Policy At the 6-week [...] our pleasure. David Peter MD Pager # [phone] documented in this enc ounter Discharge Instructions Instructions Sally Gupta RN - 09/04/2012Formatting of this note might be different f rom the original. ADDITIONAL INFORMATION: [facility] will provide IV antibiotics and education. They can be r eached at: [phone]. You will need to go to [facility] ([phone] - Unit C) for PICC line dressin [...] Arthritis: After Your Visit", log into your Sisasa account at [email or web address] You can enter [id number] in the [employer]" search box. Not on Breeze [employer]? Review the MyChart section of your After Visit Summary for directions on ho w to sign up. [phone] [employer]. Care instructions adapted under license by [facility] [facility]. This care instruction is for use with your licensed healthcar e professional. If you have questions about a medical condition or this instruction, always ask your healthcare professional. [employer] disclaims any warranty or liabili ty for your use of this information. Content Version: 9.5.49873; Last Revised: July 18, 2011 Patient Education [...] weeks, arrangements being made with [facility] 11. Clifford JURADO, Brigid Johnson - 09/04/2012 8:46 AM [...] provider under separate cover. Anticipated OPAT Setting: [facility] [phone] f: [phone] ID/OPAT Clinic follow-up: OPAT clinic visit in 1-2 weeks after discharge in conjunction wit h [facility] Orthopedic Service. We will call to schedule this appointment after patient is disch arged. Interdisciplinary Communication: Please notify OPAT clinic 24-48 hours prior to discharge b y calling [phone] (We need anticipated discharge date & where patient is going; i.e. name, ph one, and fax for home infusion vendor, longterm facility, or daily outpatient infusio center providing outpatient antibiotic therapy services.) [facility] Department of Infectious Disease Outpatient IV Antibiotic Therapy Clinic (OPAT) Pager ID: [phone] [facility]. Mail Code L457 [place] [address] OPAT teaching note: Education and training for patient self management with a PICC line and extended use IV antibiotics I received an OPAT Clinic Consult from the Inpatient Infectious Diseases Service. I have re viewed the records and introduced myself to Sandy Marc today. I explained that I am from the OPAT (Outpatient Parenteral Antibiotic Treatment) team, an out-patient branch of [facility] Infectious Diseases team that has been guiding [...] symptoms immediately, and if unable to contact [facility] or the infus ion service provider, then to present to the nearest ED. I verified that the patient has a primary care provider, and that they will follow-up with them following this hospitalization in regards to other medical issues such as chronic pain, diabetes, or high blood pressure for which we do not provide any care. I provided the patient with the [facility] welcome letter that reiterates the above teaching. I spent 45 minutes in education and training in patient self management for IV antibiotic a nd PICC line use with greater than 50% spent on counseling and/or coordination of care. [facility] DEPARTMENT: IDC INFECT DIS CONSULT - [phone] Place of Service: Inpatient Date of Service: 09/04/2012 CSN: [id number] Suggested Modifier: OPATC David Angel MD - [...] made with LENCHO Peter MD Pager # [phone] David Angel MD - 09/03/2012 7:53 AM [...] acute inpatient care 8. Targeted discharge date: tomorrow or Friday 9. Special Discharge Needs: needs outpatient IV antibiotics x 6 weeks David Peter MD Pager # [phone] Malathi Mccauley MD - 09/03/2012 1:27 AM [...] brief op note MALATHI BRYANT MD [facility] Department of Orthopaedics & Rehabilitation [address] [place] [address] Mail Code: OP31 [facility] [address] documented in this e ncounter Plan of [...] | + +--------+ + + + | VANCOMYCIN, TROUGH | Routin | 09/04/2012 | | [...] + + + | IP CONSULT TO [facility] | Routin | 09/03/2012 | | Results [...] | + + + + + | [facility] | [address] | [place] [address] | | | SERVICES, ELLIE | JOY [...] [facility] | [address] | [place] [address] | | | SERVICES, CORE | PARK [...] | + + + + + | [facility] | [address] | [place] [address] | | | SERVICES, [facility] | [address] | | | + + + + + OPERATION RECORD (09/03/2012 2:02 PM PST) + + | Transcriptions | + + | David Peter MD - 09/03/2012 12:20 PM PST Date: 09/02/2012ttending | | Surgeon: Alton Hernandez M.D.Blasting Contract Miner(s): David | | TAQUERIA Peterreoperative Diagnosis(es):1. Left [...] by | | Dr. Jerald Don in [place] on December 10, 2011. At that time, [...] the reamers. We then used our canal financial consultant | | to thoroughly wash out the [...] Thiago, M.Engr.General Orthopaedics, Trauma JUAN C / [id number] / [id number] / [id number] /D: | | 09/02/2012T: 09/03/2012 | | | | | + + X-RAY PORTABLE CHEST 1 VIEW (09/03/2012 9:51 AM PST) + + + + + + | Component | Value | Ref Range | Performed | Pathologist | | | | | At | Signature | + + + + + + | X-RAY | STUDY: NV CHEST 1 VIEW | | | | [...] + +---------+ + + IP CONSULT TO PICC TEAM (09/03/2012 9:16 AM PST) + + + | Narrative | Performed At | + + + | Adriana Torrez 09/03/2012 9:16 AM PICC INSERTION | | | DOCUMENTATION NOTE Today | | | | | | s Date: 09/03/2012 Start Time: 0900 Patient Location (Unit/Room #): | | | 9k Diagnosis: 116408 Osteomyelitis of knee region 062052 AVN | | | (avascular necrosis of bone) [id number] Pathologic fracture of tibia or | | | fibula 131909 Septic arthritis of knee, left Indications: (Select [...] Lot # (or | | | Sticker): [id number] INSERTION SITE: - Basilic Left Local | [...] 09/03/2012Start Time: 0900Patient Location (Unit/Room #): 9kDiagnosis: 741980 | | Osteomyelitis of knee [id number] AVN (avascular necrosis of bone)534732 Pathologic | | fracture of tibia or [id number] Septic arthritis of knee, leftIndications: (Select all [...] at all times.PICC CATHETERProduct | | Name: RicardoConstruction: Single4 Fr60cm [id number] TrimmedLot # (or Sticker): | | [id number] SITE: - BasilicLeftLocal anesthetic used: lidocaineSedation used: [...] |8cm Trimmed | |Lot # (or Sticker): [id number] | | | |INSERTION SITE: - Basilic [...] | + + + + + | [facility] | [address] | [place] [address] | | | SERVICES, CORE | JOY [...] | + + + + + | [facility] | [address] | [place] [address] | | | SERVICES, CORE | JOY [...] | | + +---------+ + + | [facility] DEPARTMENT OF | | | | | [...] | | + +---------+ + + | [facility] DEPARTMENT OF | | | | | [...] | | | Final SMEAR:No | | [place] | | | | fungal elements seen [...] + | [facility] - | [address] | [place] [address] | | | [place] | | | [...] | | Final SMEAR:AFB not | | [facility] | | | | detected source: 10) [...] + | [facility] - | [address] | [place] [address] | | | [place] | | | [...] + | [facility] - | [address] | [place] [address] | | | [place] | | | [...] | | Final SMEAR:AFB not | | [place] | | | | detected source: left [...] + | [facility] - | [address] | [place] [address] | | | [place] | | | [...] | | | Final SMEAR:No | | [place] | | | | fungal elements seen [...] + | [facility] - | [address] | [place] [address] | | | [place] | | | [...] | + + + + + | [facility] - | [address] | [place] [address] | | | [place] | | | | + + + [...] | | RESULT | Tissue | | [facility] - | | | | Final SMEAR:No | | [place] | | | | fungal elements seen [...] | + + + + + | [facility] - | [address] | [place] [address] | | | [place] | | | [...] + | [facility] - | [address] | [place] [address] | | | [place] | | | | + + + [...] + | [facility] - | [address] | [place] [address] | | | [facility] | | | | + + [...] | | | Final SMEAR:No | | [place] | | | | fungal elements seen [...] + | [facility] - | [address] | [place] [address] | | | [place] | | | [...] + | [facility] - | [address] | [place] [address] | | | [facility] | | | | + [...] | | Final GRAM STAIN:No | | [place] | | | | squamous epithelial | [...] | + + + + + | [facility] - | [address] | [place] [address] | | | [place] | | | | + + + [...] | | | Final SMEAR:No | | [place] | | | | fungal elements seen [...] + | [facility] - | [address] | [place] [address] | | | [place] | | | | + + + [...] | | Final SMEAR:AFB not | | [place] | | | | detected source: left [...] | + + + + + | [facility] - | [address] | [place] [address] | | | [place] | | | [...] + + | Performing | Address | City/State/[facility] | Phone Number | | Organization | | | | + + + + + | [facility] - | [address] | [place] [address] | | | [place] | | | | + + + [...] | | RESULT | Tissue | | [facility] - | | | | Final SMEAR:No | | [place] | | | | fungal elements seen [...] + | [facility] - | [address] | [place] [address] | | | [place] | | | | + + + [...] | | Final SMEAR:AFB not | | [place] | | | | detected source: left [...] | + + + + + | [facility] - | [address] | [place] [address] | | | [place] | | | [...] | + + + + + | [facility] - | [address] | [place] [address] | | | [place] | | | [...] + | [facility] - | [address] | [place] [address] | | | [facility] | | | | + [...] | | Final SMEAR:AFB not | | [place] | | | | detected source: left [...] + | [facility] - | [address] | [place] [address] | | | [place] | | | [...] + | [facility] - | [address] | [place] [address] | | | [facility] | | | | + [...] | | | Final SMEAR:No | | [facility] | | | | fungal elements seen [...] + | [facility] - | [address] | [place] [address] | | | [place] | | | | + + + [...] | | Final SMEAR:AFB not | | [place] | | | | detected source: 3) [...] + | [facility] - | [address] | [place] [address] | | | [place] | | | | + + + [...] + | [facility] - | [address] | [place] [address] | | | [facility] | | | | + [...] + | [facility] - | [address] | [place] [address] | | | [place] | | | | + + + [...] + | [facility] - | [address] | [place] [address] | | | [place] | | | | + + + [...] | + + + + + | [facility] - | [address] | [place] [address] | | | [place] | | | | + + + [...] | | RESULT | Tissue | | [facility] - | | | | Final SMEAR:No | | [place] | | | | fungal elements seen [...] | + + + + + | [facility] - | [address] | [place] [address] | | | [place] | | | [...] | | Final SMEAR:AFB not | | [facility] | | | | detected source: left [...] + | [facility] - | [address] | [place] [address] | | | [place] | | | [...] + | [facility] - | [address] | [place] [address] | | | [place] | | | | + + + [...] | | | Final CULTURE | | [place] | | | | RESULT:No growth | [...] + | [facility] - | [address] | [place] [address] | | | [place] | | | | + + + [...] by: | | | | | | hSanae Gutierrez PLewis | | | | | | (ASCP)and [...] Steiner | | | | | | ThiagoPathologistBrandoi | | | | | | julisa [...] | + + + + + | [facility] | [address] | [place] [address] | | | PATHOLOGY | [address] [...] arthritis, lower leg | + + | Encounter for long-term (current) use of antibiotics | + + documented in this encounter Administered Medications + +--------+ +--------+------+------+ | Medication Order | MAR | Action | Dose | Rate | Site | | | Action | Date | | | | + +--------+ +--------+------+------+ | acetaminophen (aka TYLENOL) | Given | 09/05/19 | 650 mg | | | | tablet 650 mg 650 mg, oral, | | 13 3:02 | | | | | EVERY 6 HOURS, First dose on Fri | | PM PST | | | | | 09/02/12 at 2200, Until | | | | | | | Discontinued | | | | | | + +--------+ +--------+------+------+ +-------+ +--------+---+---+ | Given | 09/05/19 | 650 mg | | | | | 13 10:14 | | | | | | AM PST | | | | +-------+ +--------+---+---+ | Given | 09/05/19 | 650 mg | | | | | 13 5:07 | | | | | | AM PST | | | | +-------+ +--------+---+---+ +---+---+ | | | +---+---+ + +-------+ +--------+---+---+ | aspirin tablet 325 mg 325 mg, | Given | 09/05/19 | 325 mg | | | | oral, TWICE DAILY, First dose on | | 13 9:05 | | | | | Angi 09/03/12 at 0900, Until | | AM PST | | | | | Discontinued | | | | | | + +-------+ +--------+---+---+ +-------+ +--------+---+---+ | Given | 09/04/19 | 325 mg | | | | | 13 9:41 | | | | | | PM PST | | | | +-------+ +--------+---+---+ | Given | 09/04/19 | 325 mg | | | | | 13 8:10 | | | | | | AM PST | | | | +-------+ +--------+---+---+ +---+---+ | | | +---+---+ + +---------+ +-----+--------+---+ | cefTRIAXone (cinthyaa ROCVEGAN) IV 2 | New Bag | 09/04/19 | 2 g | mL/hr | | | g 2 g, intravenous, EVERY 24 | | 13 4:44 | | | | | HOURS, First dose on Angi 09/03/12 | | PM PST | | | | | at 1700, Until Discontinued | | | | | | + +---------+ +-----+--------+---+ +---------+ +-----+--------+---+ | New Bag | 09/03/19 | 2 g | mL/hr | | | | 13 5:49 | | | | | | PM PST | | | | +---------+ +-----+--------+---+ +---+---+ | | | +---+---+ + +---------+ +-------+--------+---+ | diphenhydrAMINE (aka BENADRYL) | New Bag | 09/03/19 | 25 mg | mL/hr | | | injection 25 mg 25 mg, | | 13 11:35 | | | | | intravenous, EVERY 6 HOURS | | AM PST | | | | | NEEDED, Starting Angi 09/03/12 at | | | | | | | 0905, Until 09/05/12 at 2109, | | | | | | | itching | | | | | | + +---------+ +-------+--------+---+ +---+---+ | | | +---+---+ + +-------+ +--------+---+---+ | gabapentin (aka NEURONTIN) | Given | 09/05/19 | 300 mg | | | | capsule 300 mg 300 mg, oral, | | 13 3:02 | | | | | THREE TIMES DAILY, First dose on | | PM PST | | | | | 09/02/12 at 2200, Until | | | | | | | Discontinued | | | | | | + +-------+ +--------+---+---+ +-------+ +--------+---+---+ | Given | 09/05/19 | 300 mg | | | | | 13 9:05 | | | | | | AM PST | | | | +-------+ +--------+---+---+ | Given | 09/04/19 | 300 mg | | | | | 13 9:41 | | | | | | PM PST | | | | +-------+ +--------+---+---+ +---+---+ | | | +---+---+ + +---------+ +--------+--------+---+ | HYDROmorphone (aka DILAUDID) | New Bag | 09/02/19 | 0.5 mg | mL/hr | | | injection 0.2-0.5 mg 0.2-0.5 mg, | | 13 6:36 | | | | | intravenous, POSTPROCEDURE PRN, | | PM PST | | | | | Starting Fri09/02/12 at 1533, | | | | | | | Until Fri09/02/12 at 1949, | | | | | | | moderate pain | | | | | | + +---------+ +--------+--------+---+ +---------+ +--------+--------+---+ | New Bag | 09/02/19 | 0.5 mg | mL/hr | | | | 13 6:13 | | | | | | PM PST | | | | +---------+ +--------+--------+---+ +---+---+ | | | +---+---+ + +---------+ +--------+--------+---+ | HYDROmorphone (aka DILAUDID) | New Bag | 09/03/19 | 0.5 mg | mL/hr | | | injection 0.2-1 mg 0.2-1 mg, | | 13 9:00 | | | | | intravenous, EVERY 2 HOURS | | AM PST | | | | | NEEDED, Starting 09/02/12 at | | | | | | | 1951, Until 09/05/12 at 2109, | | | | | | | moderate pain | | | | | | + +---------+ +--------+--------+---+ +---------+ +--------+--------+---+ | New Bag | 09/03/19 | 0.5 mg | mL/hr | | | | 13 2:05 | | | | | | AM PST | | | | +---------+ +--------+--------+---+ + +---+ | | | + +---+ | HYDROmorphone (aka DILAUDID) | | | injection 1 dose, Starting Wed | | | 09/02/12 at 1811, Until Wed | | | 09/02/12 at 1813 | | + +---+ | | | + +---+ + +---------+ +-------+-------+---+ | lactated ringers IV 100 mL/hr, | New Bag | 09/02/19 | 100 | 100 | | | intravenous, CONTINUOUS, | | 13 6:40 | mL/hr | mL/hr | | | Starting Fri09/02/12 at 1900, | | PM PST | | | | | Until 09/05/12 at 2109 | | | | | | + +---------+ +-------+-------+---+ +---+---+ | | | +---+---+ + +---------+ +------+--------+---+ | ondansetron (aka ZOFRAN) | New Bag | 09/05/19 | 4 mg | mL/hr | | | injection 4 mg 4 mg, | | 13 5:48 | | | | | intravenous, EVERY 12 HOURS | | AM PST | | | | | NEEDED, Starting Fri09/02/12 at | | | | | | | 1951, Until 09/05/12 at 2109, | | | | | | | nausea/vomiting | | | | | | + +---------+ +------+--------+---+ +---------+ +------+--------+---+ | New Bag | 09/03/19 | 4 mg | mL/hr | | | | 13 11:35 | | | | | | AM PST | | | | +---------+ +------+--------+---+ | New Bag | 09/02/19 | 4 mg | mL/hr | | | | 13 9:37 | | | | | | PM PST | | | | +---------+ +------+--------+---+ +---+---+ | | | +---+---+ + +-------+ +-------+---+---+ | oxyCODONE (immediate release) | Given | 09/05/19 | 15 mg | | | | (aka ROXICODONE) tablet 5-15 mg | | 13 3:02 | | | | | 5-15 mg, oral, EVERY 3 HOURS | | PM PST | | | | | NEEDED, Starting 09/02/12 at | | | | | | | 1951, Until 09/05/12 at 2109, | | | | | | | severe pain | | | | | | + +-------+ +-------+---+---+ +-------+ +-------+---+---+ | Given | 09/05/19 | 15 mg | | | | | 13 12:31 | | | | | | PM PST | | | | +-------+ +-------+---+---+ | Given | 09/05/19 | 10 mg | | | | | 13 9:05 | | | | | | AM PST | | | | +-------+ +-------+---+---+ +---+---+ | | | +---+---+ + +-------+ +------+---+---+ | polyethylene glycol (aka | Given | 09/05/19 | 17 g | | | | MIRALAX) powder 17 g 17 g, oral, | | 13 10:17 | | | | | DAILY NEEDED, Starting Wed | | AM PST | | | | | 09/02/12 at 1951, Until Sat | | | | | | | 09/05/12 at 2108, constipation, No | | | | | | | BM in past 3 days | | | | | | + +-------+ +------+---+---+ +---+---+ | | | +---+---+ + +---------+ +---------+--------+---+ | promethazine (aka PHENERGAN) | New Bag | 09/03/19 | 6.25 mg | mL/hr | | | injection 6.25 mg 6.25 mg, | | 13 12:11 | | | | | intravenous, EVERY 8 HOURS | | AM PST | | | | | NEEDED, Starting Fri09/02/12 at | | | | | | | 2359, Until 09/05/12 at 2109, | | | | | | | nausea/vomiting | | | | | | + +---------+ +---------+--------+---+ +---+---+ | | | +---+---+ + +-------+ + +---+---+ | senna-docusate (aka SENOKOT S) | Given | 09/05/19 | 1 tablet | | | | 8.6-50 mg 1 Tab 1 tablet, oral, | | 13 9:05 | | | | | TWICE DAILY, First dose on Fri | | AM PST | | | | | 09/02/12 at 2100, Until | | | | | | | Discontinued | | | | | | + +-------+ + +---+---+ +-------+ + +---+---+ | Given | 09/04/19 | 1 tablet | | | | | 13 9:41 | | | | | | PM PST | | | | +-------+ + +---+---+ | Given | 09/04/19 | 1 tablet | | | | | 13 8:11 | | | | | | AM PST | | | | +-------+ + +---+---+ +---+---+ | | | +---+---+ + +---------+ +-----+--------+---+ | vancomycin (aka VANCOCIN) IV 1 | New Bag | 09/04/19 | 1 g | mL/hr | | | g 1 g, intravenous, EVERY 12 | | 13 9:44 | | | | | HOURS, First dose on Angi 09/03/12 | | PM PST | | | | | at 0930, Until Discontinued | | | | | | + +---------+ +-----+--------+---+ +---------+ +-----+--------+---+ | New Bag | 09/04/19 | 1 g | mL/hr | | | | 13 9:57 | | | | | | AM PST | | | | +---------+ +-----+--------+---+ | New Bag | 09/03/19 | 1 g | mL/hr | | | | 13 9:37 | | | | | | PM PST | | | | +---------+ +-----+--------+---+ +---+---+ | | | +---+---+ + +---------+ +-----+--------+---+ | vancomycin (aka VANCOCIN) IV 1 | New Bag | 09/05/19 | 1 g | mL/hr | | | g 1 g, intravenous, EVERY 8 | | 13 5:41 | | | | | HOURS, First dose (after last | | AM PST | | | | | modification) on 09/05/12 at | | | | | | | 0545, Until Discontinued | | | | | | + +---------+ +-----+--------+---+ +---+---+ | | | +---+---+ documented in this encounter
--- OUTSIDE RECORDS SUMMARY | ~2019-08-17 | XMS | Clinical Summary ---
Demographics + + + | Address | [address] | | | [place] [address] | + + + | Home Phone | | + + + | Preferred Language | Unknown | + + + | Marital Status | Single | + + + | Restoration Affiliation | LUT | + + + [...] [place] | | | | | [address] | | + + + + + Care Team Providers + +------+ + | Care Dry Lumber Grader Name | Role | Phone | + +------+ + | Hina Peterson | PCP | | + +------+ + Source Comments FLIP is fully live on both EpicCare Ambulatory and EpicCare InPatient.[facility] Allergies + + + + [...] | Possible avascular necrosis. Recommended referral to [facility] | | (10/22/2013 note) | + [...] / | | Alton Hernandez MD at [facility] | | Leg | | | [...] + + | [facility] | And | [place] [address] | [phone] | | MEDICAL CENTER | Streets | [...] + + | [facility] | [address] | [place] [address] | [phone] | | [facility] | [facility] | | | + + + + + US DUPLEX LOWER EXTREMITY VENOUS LEFT (06/04/2019 10:49 AM PDT) + + | Specimen | + + | | + + + + + | Narrative | Performed At | + + + | [address] | [facility] | | [place] [address] | DEPARTMENT | | [phone] Name: SANDY MARC Phys: | RADIOLOGY | | JAC[place] BLUE : 1990 Sex: F CSN: | | | [id number] MR# [id number] Exam Date: 06/04/2019 | | | EXAM: [...] Transcribed | | | Date/Time: 06/04/2019 11:28 Columnist/Commentator: FLUENCY | | + + + + + | Procedure Note | + + | Interface, Radiology Results - 06/04/2019 11:36 AM PDT [address] | | [place] [address] | | Name: ANGELICA MARCAlex Phys: IZABELLAJACI : 1990 Sex: F | | CSN: [id number] MR# [id number] Exam Date: 06/04/2019 EXAM:LEFT LOWER EXTREMITY | [...] | | |Transcribed Date/Time: 06/04/2019 11:28 | |Columnist/Commentator: FLUENCY | | | | | | [...] | + + + | [address] [place] [address] | [facility] | | [place] [address] | DEPARTMENT | | [phone] Name: SANDY MARC Phys: | RADIOLOGY | | JACI BLUE : 1990 Sex: F CSN: | | | [id number] MR# [id number] Exam Date: 06/04/2019 | | | EXAM: X-RAY KNEE 3 VIEWS LEFT 82760; X-RAY KNEE 2 VIEWS RIGHT | | | [id number] CLINICAL HISTORY: Left knee pain. COMPARISON: None [...] Transcribed Date/Time: 06/04/2019 | | | 23:16 Columnist/Commentator: YORDY | | + + + + + | Procedure Note | + + | Interface, Radiology Results - 06/04/2019 11:21 PM PDT [address] | | [place] [address] | | Name: SANDY MARC Phys: JACI BLUE : 1990 Sex: F | | CSN: [id number] MR# [id number] Exam Date: 06/04/2019 EXAM:X-RAY KNEE 3 VIEWS | | LEFT 82576; X-RAY KNEE 2 VIEWS RIGHT 75557 CLINICAL HISTORY:Left knee pain. | | COMPARISON:None [...] | | |Transcribed Date/Time: 06/04/2019 23:16 | |Columnist/Commentator: YORDY | | | | | | | + + + +---------+ + + | Performing | Address | City/State/[facility] | Phone Number | | Organization | [...] | + + + | [address] [place] [address] | [facility] | | [place] [address] | DEPARTMENT OF | | [phone] Name: DINORA MARCYOU Phys: | RADIOLOGY | | IZABELLAJACI : 1990 Sex: F CSN: | | | [id number] MR# [id number] Exam Date: 06/04/2019 | | | EXAM: X-RAY KNEE 3 VIEWS LEFT 95765; X-RAY KNEE 2 VIEWS RIGHT | | | 83949 CLINICAL HISTORY: Left knee pain. COMPARISON: None [...] Transcribed Date/Time: 06/04/2019 | | | 23:16 Columnist/Commentator: FLUENCY | | + + + + + | Procedure Note | + + | Interface, Radiology Results - 06/04/2019 11:21 PM PDT [address] | | [address] [place] [address] | | Name: SANDY MARC Phys: JACI BLUE : 1990 Sex: F | | CSN: [id number] MR# [id number] Exam Date: 06/04/2019 EXAM:X-RAY KNEE 3 VIEWS | | LEFT 28034; X-RAY KNEE 2 VIEWS RIGHT 16972 CLINICAL HISTORY:Left knee pain. | | COMPARISON:None [...] | | |Transcribed Date/Time: 06/04/2019 23:16 | |Columnist/Commentator: FLUENCY | | | | | | | + + + +---------+ + + | Performing | Address | City/State/[facility] | Phone Number | | Organization | [...] | | | + +--------+ +--------+-------+---------+--------+ | PHYSICAL EDUCATION PROFESSOR MEDICAID | PHYSICAL EDUCATION PROFESSOR | xxxxxxxx | Effect | | | Medica | | | EASTER | | cindi | | | id | | | N [place] | | for | | | | | | | | all | | | | | | | | dates | | | | + +--------+ +--------+-------+---------+--------+ | PHYSICAL EDUCATION PROFESSOR MEDICAID | PHYSICAL EDUCATION PROFESSOR | xxxxxxxx | 08/11/19 | | | [...] | 1990 | [phone] | [place] [address] | | | nayla | | | 2 (Home) | | + +--------+ +--------+ + + | Sandy Marc | Person | Self | [birth year] | [address] | | (Aminta Liu | al/Fam | | 1990 | [phone] | [place] [address] | | | nayla | | | [...]
--- OUTSIDE RECORDS SUMMARY | ~2019-08-17 | XMS | Encounter Summary ---
Demographics + + + | Address | [address] | | | [place] [address] | + + + | Home Phone | | + + + | Preferred Language | Unknown | + + + | Marital Status | Single | + + + | Druze Affiliation | LUT | + + + [...] + | Grisel Marc | ECON | [address] | | | | | [place] | | | | | [address] | | + + + + + Care Team Providers + +------+ + | Care Weight Control Lecturer Name | Role | Phone | + [...] | | | | | Unspecified | [address] | [address] | | | | | tear of | [place], | [place] | | | | | unspecified | [place] | [place], [place] | | | | | meniscus, | [address] | [address] | | | | | current | Phone: | Phone: | | | | | injury, left | [phone] | [phone] | | | | | knee, | Fax: | Fax: | | | | | initial | [phone] | [phone] | | | | | encounter | [...] | | | | | | | ME DUPLEX | | | | | | [...] Joseline Foy | | | | | [place], | [place], [place] | | | | | [place] [address] | [address] | | | | | [phone] | [phone] | | | | | | | [...] | + + + | [address] | [facility] | | [place] [address] | DEPARTMENT OF | | [phone] Name: SANDY MARC Phys: | RADIOLOGY | | JACI BLUE : 1990 Sex: F CSN: | | | [id number] MR# [id number] Exam Date: 06/04/2019 | | | EXAM: [...] Transcribed | | | Date/Time: 06/04/2019 11:28 Area Captain: FLUENCY | | + + + + + | Procedure Note | + + | Interface, Radiology Results - 06/04/2019 11:36 AM PDT [address] | | [place] [address] | | Name: SANDY MARC Phys: JACI BLUE : 1990 Sex: F | | CSN: [id number] MR# [id number] Exam Date: 06/04/2019 EXAM:LEFT LOWER EXTREMITY | [...] OTHER VENDOR SYSTEM 06/04/2019 | |Reported by: HELEAN BARRAZA MD | | | |Electronically signed by: HELENA BARRAZA MD | | | |Transcribed Date/Time: 06/04/2019 11:28 | |Area Captain: FLUENCY | | | | | | [...]
--- OUTSIDE RECORDS SUMMARY | ~2019-08-17 | XMS | Encounter Summary ---
Demographics + + + | Address | [address] | | | [place] [address] | + + + | Home Phone [...] [place] | | | | | [address] | | + + + + + Care Team Providers + +------+ + | Care Weigher And Mixer Name | Role | Phone | + +------+ + | Adilia Bob SPORTS ACTIVITIES FOUL JUDGE | PCP | | + +------+ + Encounter Details +--------+ + + + + | Date | Type | Department | Care Team | Description | +--------+ + + + + | 11/25/ | Marketing Copywriter | Orthopaedics at | Alton Hernandez MD | Osteomyelitis of | | 2012 | | [facility] [address] | | knee region (HCC) | | | | [address] | | (Primary Dx); | | | | Mailcode: [id number] | | Pathologic fracture | | | | [facility] | | of tibia or fibula | | | | [place], [place] | | | | | | [address] | | | | | | [phone] | | | +--------+ + + + [...] as of this encounter Results X-RAY KNEE 2 VIEWS LEFT (12/08/2012 8:15 AM PDT) + + + + + + | Component | Value | Ref Range | Performed | Pathologist | | | | | At | Signature | + + + + + + | KNEE 2 | EXAM: TIBIA AND FIBULA 2 | | | | | VIEWS LEFT | VIEWS LT AND KNEE TWO | | | | | | VIEWS LEFT | | | | [...] | | | | | | CHENCHO MDAuthor: | | | | | | Jason [...] | + +---------+ + + | [facility] | | | | | RADIOLOGY | | | | + +---------+ + + X-RAY TIBIA & FIBULA 2 [...] ESEQUIEL | | | | | | BRANDONAYDEN 12/08/2012 | | | | | | 9:50 AM | | | | + + + + + + + + | Specimen | + + | | + + + +---------+ + + | Performing | Address | City/State/Zipcode | Phone Number | | Organization | | | | + +---------+ + + | [facility] | | | | [...]
--- OUTSIDE RECORDS SUMMARY | ~2019-08-17 | XMS | Encounter Summary ---
Demographics + + + | Address | [address] | | | [place] [address] | + + + | Home Phone | | + + + | Preferred Language | Unknown | + + + | Marital Status | Single | + + + | Pentecostal Affiliation | LUT | + + + [...] [place] | | | | | [address] | | + + + + + Care Team Providers + +------+ + | Care Control Room Helper Name | Role | Phone | + +------+ + | Adilia Bob BUSINESS DEVELOPMENT AGENT | PCP | | + +------+ + Encounter Details +--------+ + + + + | Date | Type | Department | Care Team | Description | +--------+ + + + + | 12/08/ | Marketing Secretary | Infectious | Lavinia Peck, | Osteomyelitis of | | 2013 | | Diseases at [facility] [address] | [place] [address] | knee region (HCC) | | | | [address] | (Primary Dx) | | | | [address] | [place] [address] | | | | | Mailcode: L457 | [phone] | | | | | [facility] | | | | | | [place], [place] | | | | | | [address] | | | | | | [phone] | | | +--------+ + + + [...]
--- OUTSIDE RECORDS SUMMARY | ~2019-08-17 | XMS | Encounter Summary ---
Demographics + + + | Address | [address] | | | [place] [address] | + + + | Home Phone [...] + | Author | [facility] | + + + | Organization | [facility] | + + + | Address | Unknown | + + + | Phone | Unavailable | + + + Support + + + + + | Name | Relationship | Address | Phone | + + + + + | Grisel Marc | ECON | [address] | | | | | [place] | | | | | [address] | | + + + + + Care Team Providers + +------+ + | Care Roll Setter Name | Role | Phone | + [...] | | | | Selene Villalta | [address] | | | | | [address] [place] [place] | [phone] | | | | | [place] | | | | | | [address] | | | | | | [phone] | | | +--------+ + + + [...]
--- OUTSIDE RECORDS SUMMARY | ~2019-08-17 | XMS | Encounter Summary ---
Demographics + + + | Address | [address] | | | [place] [address] | + + + | Home Phone [...] [place] | | | | | [address] | | + + + + + Care Team Providers + +------+ + | Care Apprentice Stylist Name | Role | Phone | + [...] [place] | | | | | Floor [address] | | | | | | [address] | | | | | | Mailcode: L457 | | | | | | [facility] | | | | | | [place], [place] | | | | | | [address] | | | | | | [phone] | | | +--------+ + + + [...] + | HEMOGLOBIN | 10.4 (A) | 12 - 15 | NON [facility] | | [...] | + +---------+ + + | SONIA GORMAN | | | | + +---------+ + + documented in this encounter Visit Diagnoses Not on filedocumented in this encounter"
--- OUTSIDE RECORDS SUMMARY | ~2019-08-17 | XMS | Encounter Summary ---
Demographics + + + | Address | [address] | | | [place] [address] | + + + | Home Phone | | + + + | Preferred Language | Unknown | + + + | Marital Status | Single | + + + | Taoist Affiliation | LUT | + + + [...] [place] | | | | | [address] | | + + + + + Care Team Providers + +------+ + | Care Healthcare Business Analyst Name | Role | Phone | [...] + + + + | 09/07/ | Ice Guard Skating Rink | Infectious | Brigid Hardy | | | 2012 | | Diseases at [facility] [address] | [place], [place] | | | | | Floor [address] | | | | | | [address] | | | | | | Mailcode: L457 | | | | | | [facility] | | | | | | [place], [place] | | | | | | [address] | | | | | | [phone] | | | +--------+ + + + [...]
--- OUTSIDE RECORDS SUMMARY | ~2019-08-17 | XMS | Encounter Summary ---
Demographics + + + | Address | [address] | | | [place] [address] | + + + | Home Phone [...] [place] | | | | | [address] | | + + + + + Care Team Providers + +------+ + | Care Planishing Hammer Operator Name | Role | Phone | [...] AND | | 2012 | | [facility] | | DEBRIDEMENT OF LEFT | | | | [address] | | PROXIMAL TIBIAL WITH | | | | Hospital Admitting | | PLACEMENT OF CASO4 | | | | Desk Located on the | | ANTIBIOTICS BEADS; | | | | 9th floor | | microbiology x 11 | | | | [place], [place] | | | | | | [address] | | | +--------+---------+ + + + [...] Angel MD - 09/10/2012 8:12 AM PST [facility] DEPARTMENT OF ORTHOPAEDICS & REHABILITATION INPATIENT HOSPITAL DISCHARGE SUMMARY & INTERDISCIPLINARY INSTRUCTIONS Patient: Sandy Marc CSN: [id number] Admission Date: 09/02/2012 Discharge Date: 09/05/2012 Attending Physician: Alton Hernandez MD PCP: SAEED Presley Service: [facility] Orthopaedics & Rehabilitation Diagnoses Principal Final Diagnosis: [...] for > 5 years. , Historical Med [facility] Orthopaedic Service Pain Policy At the 6-week [...] our pleasure. David Peter MD Pager # [phone] documented in this enc ounter Discharge Instructions Instructions Sally Gupta RN - 09/04/2012Formatting of this note might be different f rom the original. ADDITIONAL INFORMATION: [facility] will provide IV antibiotics and education. They can be r eached at: [phone]. You will need to go to [facility] ([phone] - Unit C) for PICC line dressin [...] Arthritis: After Your Visit", log into your [facility] account at [email or web address]. You can enter [email or web address] in the [employer]" search box. Not on [facility]? Review the MyChart section of your After Visit Summary for directions on aysha norris to sign up. [phone] [employer]. Care instructions adapted under license by [facility]. This care instruction is for use with your licensed healthcar e professional. If you have questions about a medical condition or this instruction, always ask your healthcare professional. [employer] disclaims any warranty or liabili ty for your use of this information. Content Version: 9.5.45652; Last Revised: July 18, 2011 Patient Education [...] provider under separate cover. Anticipated OPAT Setting: [facility] [phone] f: [phone] ID/OPAT Clinic follow-up: OPAT clinic visit in 1-2 weeks after discharge in conjunction wit h [facility] Orthopedic Service. We will call to schedule this appointment after patient is disch arged. Interdisciplinary Communication: Please notify OPAT clinic 24-48 hours prior to discharge b y calling [phone] (We need anticipated discharge date & where patient is going; i.e. name, ph one, and fax for home infusion vendor, snf facility, or daily outpatient infusio n center providing outpatient antibiotic therapy services.) [facility] Department of Infectious Disease Outpatient IV Antibiotic Therapy Clinic (OPAT) Pager ID: [phone] [facility] Ravi. Mail Code W085 [place] [address] OPAT teaching note: Education and training for [...] symptoms immediately, and if unable to contact [facility] or the infus ion service provider, then to present to the nearest ED. I verified that the patient has a primary care provider, and that they will follow-up with them following this hospitalization in regards to other medical issues such as chronic pain, diabetes, or high blood pressure for which we do not provide any care. I provided the patient with the [facility] welcome letter that reiterates the above teaching. I spent 45 minutes in education and training in patient self management for IV antibiotic a nd PICC line use with greater than 50% spent on counseling and/or coordination of care. PSYCHIATRIC DEPARTMENT: IDC INFECT DIS CONSULT - [id number] Place of Service: Inpatient Date of Service: 09/04/2012 CSN: [id number] Suggested Modifier: OPATC David Angel MD - [...] made with LENCHO Peter MD Pager # [phone] David Angel MD - 09/03/2012 7:53 AM [...] 6 weeks David Peter MD Pager # [phone] Malathi Mccauley MD - 09/03/2012 1:27 AM [...] See brief op note MALATHI BRYANT MD [facility] Department of Orthopaedics & Rehabilitation [address] [place] [address] Mail Code: OP31 [facility] [address] documented in this e ncounter Plan of [...] + + + | IP CONSULT TO [facility] | Routin | 09/03/2012 | | [...] | + + + + + | [facility] | [address] | [place] [address] | | | ELLIE LONG | JOY [...] + | [facility] | [address] | [place] [address] | | | SERVICES, CORE | [address] [...] | + + + + + | [facility] | [address] | [place] [address] | | | SERVICES, CORE | [address] | | | + + + + + OPERATION RECORD (09/03/2012 2:02 PM PST) + + | Transcriptions | + + | David Peter MD - 09/03/2012 12:20 PM PST Date: 09/02/2012ttending | | Surgeon: Alton Hernandez M.D.Brimmer Blocker(s): David | | TAQUERIA Peterreoperative Diagnosis(es):1. Left [...] by | | Dr. Jerald Don in [place] on December 10, 2011. At that time, [...] the reamers. We then used our canal block mason | | to thoroughly wash out the [...] accuracy and completeness. Alton Hernandez, | | Thiaog, M.Engr.General Orthopaedics, Trauma / [id number] / [id number] / [id number] /D: | | 09/02/2012T: 09/03/2012 | | | | | + + X-RAY PORTABLE CHEST 1 VIEW (09/03/2012 9:51 AM PST) + + + + + + | Component | Value | Ref Range | Performed | Pathologist | | | | | At | Signature | + + + + + + | X-RAY | STUDY: UT CHEST 1 VIEW | | | | [...] + +---------+ + + IP CONSULT TO [facility] TEAM (09/03/2012 9:16 AM PST) + + + | Narrative | Performed At | + + + | Adriana Torrez 09/03/2012 9:16 AM PICC INSERTION | | | DOCUMENTATION NOTE Today | | | | | | s Date: 09/03/2012 Start Time: 0900 Patient Location (Unit/Room #): | | | 9k Diagnosis: 657652 Osteomyelitis of knee region 700648 AVN | | | (avascular necrosis of bone) 349482 Pathologic fracture of tibia or | | | fibula [id number] Septic arthritis of knee, left Indications: (Select [...] Lot # (or | | | Sticker): [id number] INSERTION SITE: - Basilic Left Local | [...] 09/03/2012Start Time: 0900Patient Location (Unit/Room #): 9kDiagnosis: 584025 | | Osteomyelitis of knee [id number] AVN (avascular necrosis of bone)693417 Pathologic | | fracture of tibia or jczipp775842 Septic arthritis of knee, leftIndications: (Select all [...] CATHETERProduct | | Name: Benistruction: Single4 Fr60cm Xyqs3qq TrimmedLot # (or Sticker): | | [id number] SITE: - BasilicLeftLocal anesthetic used: lidocaineSedation used: [...] |8cm Trimmed | |Lot # (or Sticker): [id number] | | | |INSERTION SITE: - Basilic [...] | + + + + + | [facility] | [address] | [place] [address] | | | SERVICES, CORE | PARK [...] | + + + + + | [facility] | [address] | [place] [address] | | | SERVICES, CORE | JOY [...] | + +---------+ + + | [facility] DEPARTMENT OF | | | | | [...] | | | Final SMEAR:No | | [place] | | | | fungal elements seen [...] + | [facility] - | [address] | [place] [address] | | | [facility] | | | | + + [...] + | [facility] - | [address] | [place] [address] | | | [facility] | | | | + + [...] + | [facility] - | [address] | [place] [address] | | | [place] | | | | + + + [...] | | Final SMEAR:AFB not | | [place] | | | | detected source: left [...] + + | [facility] - | [address] | [place] [address] | | | [place] | | | | + + + [...] | | RESULT | Tissue | | [facility] - | | | | Final SMEAR:No | | [place] | | | | fungal elements seen [...] + | [facility] - | [address] | [place] [address] | | | [place] | | | [...] | + + + + + | [facility] - | [address] | [place] [address] | | | [place] | | | | + + + [...] + | [facility] - | [address] | [place] [address] | | | [place] | | | | + + + [...] | | Final SMEAR:AFB not | | [place] | | | | detected source: left [...] + + | [facility] - | [address] | [place] [address] | | | [place] | | | [...] | + + + + + | [facility] - | [address] | [place] [address] | | | [place] | | | | + + + [...] | | | Final SMEAR:No | | [facility] | | | | fungal elements [...] + | [facility] - | [address] | [place] [address] | | | [place] | | | [...] + | [facility] - | [address] | [place] [address] | | | [place] | | | [...] | + + + + + | [facility] - | [address] | [place] [address] | | | [place] | | | | + + + [...] | | RESULT | Tissue | | [facility] - | | | | Final SMEAR:No | | [place] | | | | fungal elements seen [...] + | [facility] - | [address] | [place] [address] | | | [place] | | | | + + + [...] | | Final SMEAR:AFB not | | [place] | | | | detected source: left [...] | + + + + + | [facility] - | [address] | [place] [address] | | | [place] | | | [...] + | [facility] - | [address] | [place] [address] | | | [place] | | | [...] | + + + + + | [facility] - | [address] | [place] [address] | | | [place] | | | | + + + [...] | | Final SMEAR:AFB not | | [facility] | | | | detected source: [...] + + | [facility] - | [address] | [place] [address] | | | [place] | | | | + + + [...] | | | RESULT | | | [facility] - | | | | Final GRAM STAIN:No | | [place] | | | | squamous epithelial | [...] | + + + + + | [facility] - | [address] | [place], [place] [address] | | | [place] | | | [...] + | [facility] - | [address] | [place] [address] | | | [place] | | | [...] | | Final SMEAR:AFB not | | [place] | | | | detected source: left [...] | + + + + + | [facility] - | [address] | [place] [address] | | | [place] | | | | + + + [...] + | [facility] - | [address] | [place] [address] | | | [place] | | | | + + + [...] + | [facility] - | [address] | [place] [address] | | | [place] | | | [...] + | [facility] - | [address] | [place] [address] | | | [place] | | | | + + + [...] | | Final GRAM STAIN:No | | [place] | | | | squamous epithelial | [...] + | [facility] - | [address] | [place] [address] | | | [place] | | | | + + + [...] + | [facility] - | [address] | [place] [address] | | | [facility] | | | | + + [...] + | [facility] - | [address] | [place] [address] | | | [place] | | | | + + + [...] + + | [facility] - | [address] | [place] [address] | | | [place] | | | | + + + [...] + | [facility] - | [address] | [place] [address] | | | [place] | | | | + + + [...] | | Final SMEAR:AFB not | | [place] | | | | detected source: left [...] + + | [facility] - | [address] | [place] [address] | | | [place] | | | [...] + | [facility] - | [address] | [place] [address] | | | [facility] | | | | + + [...] | | | Final CULTURE | | [place] | | | | RESULT:No growth | [...] + | [facility] - | [address] | [place] [address] | | | [place] | | | | + + + [...] Steiner | | | | | | MAyePathologistElectroni | | | | | | julisa [...] | + + + + + | [facility] | [address] | [place] [address] | | | PATHOLOGY | [address] [...] | | | | Until Fri09/02/12 at 1750 | | | | | [...]
--- OUTSIDE RECORDS SUMMARY | ~2019-08-17 | XMS | Encounter Summary ---
Demographics + + + | Address | [address] | | | [place] [address] | + + + | Home Phone [...] [place] | | | | | [address] | | + + + + + Care Team Providers + +------+ + | Care Hyperion Analyst Name | Role | Phone | [...] Event | MADELINE Perez | [address] | | | | | Ravi [facility] | [address] | | | | | Hospital Admitting | [place], [place] | | | | | Desk Located on the | [address] | | | | | 9th floor | [phone] | | | | | [place], [place] | | | | | | [address] | Viktoriya Jennings MD | | | | | | [address] | | | | | | [place]ues [facility] | | | | | | [place] [address] | | | | | | [phone] | | | | | | | | +--------+ + + + + Anesthesia Record + + + + + | Procedure Name | Responsible | Anesthesia Start | Anesthesia Stop Time | | | Anesthesiologist | Time | | + + + + + | IRRIGATION AND | Shakila Burgos MD | 09/02/12 1407 | 09/02/12 0705 | | DEBRIDEMENT OF LEFT | | [...]
--- OUTSIDE RECORDS SUMMARY | ~2019-08-17 | XMS | Encounter Summary ---
Demographics + + + | Address | [address] | | | [place] [address] | + + + | Home Phone [...] Author + + + | Author | [facility] | + + + | Organization | [facility] | + + + | Address | Unknown | + + + | Phone | Unavailable | + + + Support + + + + + | Name | Relationship | Address | Phone | + + + + + | Grisel Marc | ECON | [address] | | | | | [place] | | | | | [address] | | + + + + + Care Team Providers + +------+ + | Care Lead Java Software Engineer Name | Role | Phone | [...] [place] | | | | | | [address] | | | | | | [phone] | | | +--------+------+ + + + [...] | + + + + + | [facility] | And | [place] [address] | [phone] | | [facility] | Streets | | | + + + + + C-REACTIVE PROTEIN (06/25/2019 8:15 AM PST) + +-------+ + + + | Component | Value | Ref Range | Performed | Pathologist | | | | | At | Signature | + +-------+ + + + | C-REACTIVE | 0.6 | 0.0 - 0.9 mg/dL | [facility] | | | PROTEIN | | | [...] + + + + | [facility] | [address] | [place] [address] | [phone] | | [facility] [place] | [facility] | | | + + + + + documented in this encounter Visit Diagnoses + + | Diagnosis | + + | Osteomyelitis of knee region (HCC) Unspecified osteomyelitis, lower leg | + + documented in this encounter"
--- OUTSIDE RECORDS SUMMARY | ~2019-08-17 | XMS | Encounter Summary ---
Demographics + + + | Address | [address] | | | [place] [address] | + + + | Home Phone [...] Author + + + | Author | [facility] | + + + | Organization | [facility] | + + + | Address | Unknown | + + + | Phone | Unavailable | + + + Support + + + + + | Name | Relationship | Address | Phone | + + + + + | Grisel Marc | ECON | [address] | | | | | [place] | | | | | [address] | | + + + + + Care Team Providers + +------+ + | Care Assembler Corncob Pipes Name | Role | Phone | + [...] | | dislocation, | [address] | | | | | right, | [address] | [place], | | | | | initial | [place], | [place] [address] | | | | | encounter | [place] | Phone: | | | | | Procedures | [address] | [phone] | | | | | PHYSICAL | Phone: | Fax: | | | | | THERAPY | [phone] | [phone] | | | | | REFERRAL | Fax: | | | | | | | [phone] | | +--------+--------+ + + + + [...] | | | | | | [place] [address] | [address] | | | | | | Phone: | Phone: | | | | | | [phone] | [phone] | | | | | | Fax: | Fax: | | | | | | [phone] | [phone] | +--------+--------+ + + + + Encounter [...] | | | [address] | [address] | dislocation, right, | | | | [place] [address] | [phone] | initial encounter | | | | [place] | | | | | | [address] | | | | | | [phone] | | | +--------+---------+ + + + [...] | + + + | [address] [place] [address] | [facility] | | [place] [address] | DEPARTMENT OF | | [phone] Name: SANDY MARC Phys: | RADIOLOGY | | CINTHYA NICOLAS : 1990 Sex: F | | | CSN: [id number] MR# [id number] Exam Date: | | | 12/06/2015 EXAM: [...] Transcribed Date/Time: | | | 12/06/2015 15:56 Retail Cosmetics Sales Counter Manager: YORDY | | + + + + + | Procedure Note | + + | Interface, Radiology Results - 12/06/2015 4:01 PM PDT [address] | | [address] [place] [address] | | Name: SANDY MARC Phys: CINTHYA NICOLAS : 1990 Sex: F | | CSN: [id number] MR# [id number] Exam Date: 12/06/2015 EXAM:X-RAY KNEE 3 VIEWS [...] | | |Transcribed Date/Time: 12/06/2015 15:56 | |Retail Cosmetics Sales Counter Manager: FLUENCY | | | | | | [...]
--- OUTSIDE RECORDS SUMMARY | ~2019-08-17 | XMS | Encounter Summary ---
Demographics + + + | Address | [address] | | | [place] [address] | + + + | Home Phone [...] [place] | | | | | [address] | | + + + + + Care Team Providers + +------+ + | Care Copy Supervisor Name | Role | Phone | + +------+ + | Adilia Bob DANCING MASTER | PCP | | + +------+ + [...] | | | | | Procedures | [place], [place] | [address] | | | | | MRI KNEE | [address] | [place] | | | | | LT WWO CONT | Phone: | Research | | | | | | [phone] | [place] | | | | | | Fax: | [place], [place] | | | | | | [phone] | [address] | | | | | | | Phone: | | | | | | | [phone] | | | | | | | Fax: | | | | | | | [phone] | +--------+--------+ + + + + Encounter Details +--------+ + + + + | Date | Type | Department | Care Team | Description | +--------+ + + + + | 08/24/ | Hospital | Diagnostic Imaging | | | | 2012 | Encounter | Services at [facility] | | | | | | [address] | | | | | | [place] Mailcode: | | | | | | [address] [place] | | | | | | [facility] | | | | | | [place], [place] | | | | | | [address] | | | | | | [phone] | | | +--------+ + + + [...] subchondral | | | | | | [id number] hyperintensity | | | | | | [...] | | + +---------+ + + | [facility] DEPARTMENT OF | | | | | RADIOLOGY | | | | + +---------+ + + documented in this encounter Visit Diagnoses + + | Diagnosis | + + | Osteomyelitis of knee region (HCC) Unspecified osteomyelitis, lower leg | + + documented in this encounter"
--- OUTSIDE RECORDS SUMMARY | ~2019-08-17 | XMS | Encounter Summary ---
Demographics + + + | Address | [address] | | | [place] [address] | + + + | Home Phone | | + + + | Preferred Language | Unknown | + + + | Marital Status | Single | + + + | Synagogue Affiliation | LUT | + + + | Race | White | + + + | Ethnic Group | Not or | + + + Author + + + | Author | [facility] | + + + | Organization | [facility] | + + + | Address | Unknown | + + + | Phone | Unavailable | + + + Support + + + + + | Name | Relationship | Address | Phone | + + + + + | Grisel Marc | ECON | [address] | | | | | [place] | | | | | [address] | | + + + + + Care Team Providers + +------+ + | Care Pharmacy Cashier Name | Role | Phone | + [...] | s of knee | Health | [facility] | | | | | region ([facility]) | Associates | [address] [place], | | | | | AVN | [address] | [place] | | | | | (avascular | St, [place] [address] | [address] | | | | | necrosis of | [place], | | | | | | bone) ([facility]) | [place] [address] | | | | | | Pathologic | Phone: | | | | | | fracture of | [phone] | | | | | | tibia or | Fax: | | | | | | fibula | [phone] | | | | | | Septic [...] | | | | | | | INSULATOR CUTTER AND FORMER | | | | | | | [place] | | | | | | | REMOVAL OF | | | | | | | [place] | | | | | | | INSERTION | | | | | | | DRUG IMPLANT | | | | | | | DEVICE [place] | | | | | | | KNEE | | | | | | | SCOPE,SHAVE | | | | | | | ARTICULAR | | | | | | | [place]ART [place] | | | | | | | [...] | left (HCC) | | | | [place], [place] | | | | | | [address] | | | | | | [phone] | | | +--------+---------+ + + + [...] Intraoperative Consult Diagnosis confirmed by: Kaushik Duong [facility]) and Khushi Romero M.D./Pathologist ASSESSMENT: Doing [...] separate note for details). DARRICK BUITRAGO MD [facility] [address] [place] [address] Mailcode: [address] [place] [phone] Basia Vivar MA - 02/2013 3:15 PM [...]
--- OUTSIDE RECORDS SUMMARY | ~2019-08-17 | XMS | Encounter Summary ---
Demographics + + + | Address | [address] | | | [place] [address] | + + + | Home Phone | | + + + | Preferred Language | Unknown | + + + | Marital Status | Single | + + + | Rastafarian Affiliation | LUT | + + + [...] [place] | | | | | [address] | | + + + + + Care Team Providers + +------+ + | Care Photograph Enlarger Name | Role | Phone | + [...] AND | | 2012 | | [facility] | | DEBRIDEMENT OF LEFT | | | | [address] | | PROXIMAL TIBIAL WITH | | | | Hospital Admitting | | PLACEMENT OF CASO4 | | | | Desk Located on the | | ANTIBIOTICS BEADS; | | | | 9th floor | | microbiology x 11 | | | | [place], [place] | | | | | | [address] | | | +--------+---------+ + + + [...] Angel MD - 09/10/2012 8:12 AM PST [facility] DEPARTMENT OF [facility]THOPAEDICS & REHABILITATION INPATIENT HOSPITAL DISCHARGE SUMMARY & INTERDISCIPLINARY INSTRUCTIONS Patient: Sandy Marc CSN: [id number] Admission Date: 09/02/2012 Discharge Date: 09/05/2012 Attending Physician: Alton Hernandez MD PCP: SAEED Presley Service: [facility] Orthopaedics & Rehabilitation Diagnoses Principal Final [...] for > 5 years. , Historical Med [facility] Orthopaedic Service Pain Policy At the [...] our pleasure. David Peter MD Pager # [phone] documented in this enc ounter Discharge Instructions Instructions Sally Gupta RN - 09/04/2012Formatting of this note might be different f rom the original. ADDITIONAL INFORMATION: [facility] will provide IV antibiotics and education. They can be r eached at: [phone]. You will need to go to [facility] ([phone] - Unit C) for PICC line dressin [...] Arthritis: After Your Visit", log into your [employer] account at [email or web address]. You can enter [id number] in the adSage Library" search box. Not on [employer]? Review the MyChart section of your After Visit Summary for directions on aysha norris to sign up. [phone] [employer]. Care instructions adapted under license by [facility]. This care instruction is for use with your licensed healthcar e professional. If you have questions about a medical condition or this instruction, always ask your healthcare professional. [employer] disclaims any warranty or liabili ty for your use of this information. Content Version: 9.5.61480; Last Revised: July 18, 2011 Patient Education [...] provider under separate cover. Anticipated OPAT Setting: [facility] [phone] f: [phone] ID/OPAT Clinic follow-up: OPAT clinic visit in 1-2 weeks after discharge in conjunction wit h [facility] Orthopedic Service. We will call to schedule this appointment after patient is disch arged. Interdisciplinary Communication: Please notify OPAT clinic 24-48 hours prior to discharge b y calling [phone] (We need anticipated discharge date & where patient is going; i.e. name, ph one, and fax for home infusion vendor, long term facility, or daily outpatient infusio n center providing outpatient antibiotic therapy services.) [facility] Department of Infectious Disease Outpatient IV Antibiotic Therapy Clinic (OPAT) Pager ID: [phone] [facility] Ravi. Mail Code U[address] [place] [address] OPAT teaching note: Education and training for [...] symptoms immediately, and if unable to contact [facility] or the infus ion service provider, then to present to the nearest ED. I verified that the patient has a primary care provider, and that they will follow-up with them following this hospitalization in regards to other medical issues such as chronic pain, diabetes, or high blood pressure for which we do not provide any care. I provided the patient with the [facility] welcome letter that reiterates the above teaching. I spent 45 minutes in education and training in patient self management for IV antibiotic a nd PICC line use with greater than 50% spent on counseling and/or coordination of care. [facility] DEPARTMENT: IDC INFECT DIS CONSULT - [id number] Place of Service: Inpatient Date of Service: 09/04/2012 CSN: [id number] Suggested Modifier: OPATC David Angel MD - [...] made with LENCHO Peter MD Pager # [phone] David Angel MD - 09/03/2012 7:53 AM [...] 6 weeks David Peter MD Pager # [phone] Malathi Mccauley MD - 09/03/2012 1:27 AM [...] op note MALATHI BRYANT MD [facility] Department of Orthopaedics & Rehabilitation [address] [place] [address] Mail Code: OP31 [facility] [address] documented in this e ncounter Plan of [...] + + + | IP CONSULT TO [facility] | Routin | 09/03/2012 | | [...] | + + + + + | [facility] | [address] | [place] [address] | | | ELLIE LONG | JOY [...] [facility] | [address] | [place] [address] | | | SERVICES, CORE | [address]ARK [...] | + + + + + | [facility] | [address] [facility] | [place] [address] | | | SERVICES, CORE | [address] | | | + + + + + OPERATION RECORD (09/03/2012 2:02 PM PST) + + | Transcriptions | + + | David Peter MD - 09/03/2012 12:20 PM PST Date: 09/02/2012ttending | | Surgeon: Alton Hernandez M.D.Iuss Analyst(s): David | | TAQUERIA Peterreoperative Diagnosis(es):1. Left [...] by | | Dr. Jerald Don in [place] on December 10, 2011. At that time, [...] the reamers. We then used our canal retail bakery manager | | to thoroughly wash out [...] | | Thiago, M.Engr.General Orthopaedics, Trauma / [id number] / [id number] / [id number] /D: | | 09/02/2012T: 09/03/2012 | | | | | + + X-RAY PORTABLE CHEST 1 VIEW (09/03/2012 9:51 AM PST) + + + + + + | Component | Value | Ref Range | Performed | Pathologist | | | | | At | Signature | + + + + + + | X-RAY | STUDY: [place] CHEST 1 VIEW | | | | [...] + +---------+ + + IP CONSULT TO [facility] TEAM (09/03/2012 9:16 AM PST) + + + | Narrative | Performed At | + + + | Adriana Torrez 09/03/2012 9:16 AM PICC INSERTION | | | DOCUMENTATION NOTE Today | | | | | | s Date: 09/03/2012 Start Time: 0900 Patient Location (Unit/Room #): | | | 9k Diagnosis: 460646 Osteomyelitis of knee region 799165 AVN | | | (avascular necrosis of bone) 839378 Pathologic fracture of tibia or | | | fibula 624681 Septic arthritis of knee, left Indications: (Select [...] Lot # (or | | | Sticker): [id number] INSERTION SITE: - Basilic Left Local | [...] 09/03/2012Start Time: 0900Patient Location (Unit/Room #): 9kDiagnosis: 333158 | | Osteomyelitis of knee [id number] AVN (avascular necrosis of bone)046365 Pathologic | | fracture of tibia or llodoc844560 Septic arthritis of knee, leftIndications: (Select all [...] CATHETERProduct | | Name: Benistruction: Single4 Fr60cm Lfwh3jj TrimmedLot # (or Sticker): | | [id number] SITE: - BasilicLeftLocal anesthetic used: lidocaineSedation used: [...] |8cm Trimmed | |Lot # (or Sticker): [id number] | | | |INSERTION SITE: - Basilic [...] | |Tip location: | |Placed by: Jory oMrales RN | |Assisted by: Adriana Shelton | [...] | + + + + + | [facility] | [address] | [place] [address] | | | SERVICES, CORE | PARK [...] | + + + + + | [facility] | [address] | [place] [address] | | | SERVICES, CORE | JOY [...] | | + +---------+ + + | [facility] DEPARTMENT OF | | | [...] | | | Final SMEAR:No | | [place] | | | | fungal elements seen [...] + | [facility] - | [address] | [place] [address] | | | [facility] | | | | + + + [...] + | [facility] - | [address] | [place] [address] | | | [facility] | | | | [...] + | [facility] - | [address] | [place] [address] | | | [place] | | | | + + + [...] | | Final SMEAR:AFB not | | [place] | | | | detected source: left [...] | + + + + + | [facility] - | [address] | [place] [address] | | | [place] | | | | + + + [...] | | RESULT | Tissue | | [facility] - | | | | Final SMEAR:No | | [place] | | | | fungal elements seen [...] + | [facility] - | [address] | [place] [address] | | | [place] | | | [...] | + + + + + | [facility] - | [address] | [place] [address] | | | [place] | | | | + + + [...] + | [facility] - | [address] | [place] [address] | | | [place] | | | | + + + [...] | | Final SMEAR:AFB not | | [place] | | | | detected source: left [...] | + + + + + | [facility] - | [address] | [place] [address] | | | [place] | | | [...] | + + + + + | [facility] - | [address] | [place] [address] | | | [place] | | | | + + + [...] | | | Final SMEAR:No | | [facility] | | | | fungal elements seen [...] + | [facility] - | [address] | [place] [address] | | | [place] | | | [...] + | [facility] - | [address] | [place] [address] | | | [place] | | | [...] | + + + + + | [facility] - | [address] | [place] [address] | | | [place] | | | | + + + [...] | | RESULT | Tissue | | [facility] | | | | Final SMEAR:No | | [place] | | | | fungal elements seen [...] + | [facility] - | [address] | [place] [address] | | | [place] | | | | + + + [...] | | Final SMEAR:AFB not | | [place] | | | | detected source: left [...] | + + + + + | [facility] - | [address] | [place] [address] | | | [place] | | | [...] + | [facility] - | [address] | [place] [address] | | | [place] | | | [...] | + + + + + | [facility] - | [address] | [place] [address] | | | [place] | | | | + + + [...] | | Final SMEAR:AFB not | | [facility] | | | | [...] | + + + + + | [facility] - | [address] | [place] [address] | | | [place] | | | | + + + [...] | | | RESULT | | | [facility] | | | | Final GRAM STAIN:No | | [place] | | | | squamous epithelial | [...] | + + + + + | [facility] - | [address] | [place], [place] [address] | | | [place] | | | [...] + | [facility] - | [address] | [place] [address] | | | [place] | | | [...] | | Final SMEAR:AFB not | | [place] | | | | detected source: left [...] | + + + + + | [facility] - | [address] | [place] [address] | | | [place] | | | | + + + [...] + | [facility] - | [address] | [place] [address] | | | [place] | | | | + + + [...] + | [facility] - | [address] | [place] [address] | | | [place] | | | [...] + | [facility] - | [address] | [place] [address] | | | [place] | | | | + + + [...] | | Final GRAM STAIN:No | | [place] | | | | squamous epithelial | [...] + | [facility] - | [address] | [place] [address] | | | [place] | | | | + + + [...] + | [facility] - | [address] | [place] [address] | | | [facility] | | | | [...] + | [facility] - | [address] | [place] [address] | | | [place] | | | | + + + [...] | + + + + + | [facility] - | [address] | [place] [address] | | | [place] | | | | + + + [...] + | [facility] - | [address] | [place] [address] | | | [place] | | | | + + + [...] | | Final SMEAR:AFB not | | [place] | | | | detected source: left [...] | + + + + + | [facility] - | [address] | [place] [address] | | | [place] | | | [...] + | [facility] - | [address] | [place] [address] | | | [facility] | | | | + + + [...] | | | Final CULTURE | | [place] | | | | RESULT:No growth | [...] + | [facility] - | [address] | [place] [address] | | | [place] | | | | + + + [...] | + + + + + | [facility] | [address] | [place] [address] | | | PATHOLOGY | [address] [...]
--- OUTSIDE RECORDS SUMMARY | ~2019-08-17 | XMS | Encounter Summary ---
Demographics + + + | Address | [address] | | | [place] [address] | + + + | Home Phone | | + + + | Preferred Language | Unknown | + + + | Marital Status | Single | + + + | Muslim Affiliation | LUT | + + + [...] + | Grisel Marc | ECON | [address] | | | | | [place] | | | | | [address] | | + + + + + Care Team Providers + +------+ + | Care Legal Nurse Consultant Name | Role | Phone | [...] | | | [address] | [address] | | | | | [place] [address] | [phone] | | | | | [place] | | | | | | [address] | | | | | | [phone] | | | +--------+ + + + [...]
--- OUTSIDE RECORDS SUMMARY | ~2019-08-17 | XMS | Encounter Summary ---
Demographics + + + | Address | [address] | | | [place] [address] | + + + | Home Phone [...] [place] | | | | | [address] | | + + + + + Care Team Providers + +------+ + | Care Nanoscience Technician Name | Role | Phone | [...] | | | [address] | [place], [place] | | | | | | [address] | [address] | | | | | | [place], | | | | | | | [place] [address] | | | | | | | Phone: | | | | | | | [phone] | | | | | | | Fax: | | | | | | | [phone] | | +--------+--------+ + + + + [...] | | | | [address] | [place] [address] | | | | | Mailcode: [address] | [phone] | | | | | [facility] | | | | | | [facility] [place] | | | | | | [address] | | | | | | [phone] | | | +--------+---------+ + + + [...] FOLLOW UP Referrring Physician: Alton Hernandez MD [address] [place] [address] Primary Care Physician: [facility] [address], [address] [place] [address] Ms. Marc presents to Infect[facility] Diseases Clinic regarding scheduled follow up. History other than "Interim History" below is directly copied from previous ID notes to darya mcdonough. In addition I reviewed the history from the patient's [facility] admiss ion, including but not limited [...] on December 09, January 09, and t hen April 14 was the last one. Group [...] placement of antibiotic beads 09/03/2012: HIRAM Silva [facility] Operative Findings: There were no gross [...] the calcium phosphate cement and the dr richards tract appear to communicate with the intramedullary [...] She was seen in the ER in [place] and had a CT Thor ax that [...] described above. ZOEY PECK MD INFECTIOUS DISEASES [address] [place] [address] Mailcode: [address] [place] [address] documented in this e ncounter Plan of Treatment Not on filedocumented as of this encounter Visit Diagnoses + + | Diagnosis | + + | Osteomyelitis of knee region (HCC) - Primary Unspecified osteomyelitis, lower leg | + + documented in this encounter
--- OUTSIDE RECORDS SUMMARY | ~2019-08-17 | XMS | Encounter Summary ---
Demographics + + + | Address | [address] | | | [place] [address] | + + + | Home Phone [...] [place] | | | | | [address] | | + + + + + Care Team Providers + +------+ + | Care Placement Director Name | Role | Phone | + +------+ + | Adilia BobP | PCP | | + +------+ + Reason for Visit + + + | Reason | Comments | + + + | Knee pain | | + + + Encounter Details +--------+ + + + + | Date | Type | Department | Care Team | Description | +--------+ + + + + | 02/10/ | Telephone | Orthopaedics at | Alton Hernandez MD | Knee pain | | 2012 | | [address] | | | | | | [address] | | | | | | Mailcode: [id number] | | | | | | [place] | | | | | | [place], [place] | | | | | | [address] | | | | | | [phone] | | | +--------+ + + + [...] | | + +------+--------+ + + | CULTURE, BODY FLUID | Lab | Routin | Septic arthritis | Ordered: 02/12/2013 | | | | e | of knee, left ([facility]) | | + +------+--------+ + + | SYNOVIAL FLUID, | Lab | Routin | Septic arthritis | Ordered: 02/12/2013 | | CRYSTALS | | e | of knee, left ([facility]) | | + +------+--------+ + + | CELL COUNT DIFF, | Lab | Routin | Septic arthritis | Ordered: 02/12/2013 | | BODY FLUID | | e | of knee, left (HCC) | | + +------+--------+ + + documented as of this encounter Visit Diagnoses + + | Diagnosis | + + | Septic arthritis of knee, left (HCC) - Primary Pyogenic arthritis, lower leg | + + documented in this encounter"
--- OUTSIDE RECORDS SUMMARY | ~2019-08-17 | XMS | Encounter Summary ---
Demographics + + + | Address | [address] | | | [place] [address] | + + + | Home Phone [...] [place] | | | | | [address] | | + + + + + Care Team Providers + +------+ + | Care All Around Patternmaker Name | Role | Phone | + +------+ + | Adilia Bob DIRECTOR OF DISTANCE LEARNING | PCP | | + +------+ + Encounter Details +--------+ + + + + | Date | Type | Department | Care Team | Description | +--------+ + + + + | 11/25/ | Business Project Manager | Orthopaedics at | Alton Hernandez MD | Osteomyelitis of | | 2012 | | [address] | | knee region (HCC) | | | | [address] | | (Primary Dx); | | | | Mailcode: [id number] | | Pathologic fracture | | | | [facility] | | of tibia or fibula | | | | [place], [place] | | | | | | [address] | | | | | | [phone] | | | +--------+ + + + [...] | | + +---------+ + + | [facility] DEPARTMENT OF | | | [...] | | + +---------+ + + | [facility] DEPARTMENT OF | | | [...]
--- OUTSIDE RECORDS SUMMARY | ~2019-08-17 | XMS | Encounter Summary ---
Demographics + + + | Address | [address] | | | [place] [address] | + + + | Home Phone [...] + + + | Author | [facility] | + + + | Organization | [facility] | + + + | Address | Unknown | + + + | Phone | Unavailable | + + + Support + + + + + | Name | Relationship | Address | Phone | + + + + + | Grisel Marc | ECON | [address] | | | | | [place] | | | | | [address] | | + + + + + Care Team Providers + +------+ + | Care Seafood Preparer Name | Role | Phone | + [...] | s of knee | Health | [facility] | | | | | region ([facility]) | Associates | [address], | | | | | AVN | [address] | [place] | | | | | (avascular | [address] | [address] | | | | | necrosis of | [place], | | | | | | bone) ([facility]) | [place] [address] | | | | | | Pathologic | Phone: | | | | | | fracture of | [phone] | | | | | | tibia or | Fax: | | | | | | fibula | [phone] | | | | | | Septic | | | | | | | 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| | | | | | knee, left | | | | | | | ([facility]) | | | | | | | Procedures | | | | | | | REQUEST TO | | | | | | | SURGERY | | | | | | | EDITORIAL MANAGER | | | | | | | [place] PARTIAL | | | | | | | REMOVAL OF | | | | | | | TIBIA [place] | | | | | | | INSERTION | | | | | | | DRUG IMPLANT | | | | | | | DEVICE [place] | | | | | | | KNEE | | | | | | | SCOPE,SHAVE | | | | | | | ARTICULAR | | | | | | | CART [place] | | | | | | | [...] Pavilion | | | | | | [place], [place] | | | | | | [address] | | | | | | [phone] | | | +--------+---------+ + + + [...] to be followed by Dr. Peck in [place] whose PA is seeing her in clinic today [facility]. She has been compliant with non-weightbearing with [...] capillary refill. Palpable dorsalis pedis and senior process control tech ior tibial pulses. X-RAYS: Reviewed x-rays with [...] extensiveness of her infection. DARRICK BUITRAGO MD [facility] [address] [place] [address] Mailcode: [id number] [place] [address] documented in this en counter Plan of Treatment Not on filedocumented as of this encounter Visit Diagnoses + + | Diagnosis | + + | Osteomyelitis of knee region (HCC) - Primary Unspecified osteomyelitis, lower leg | + + documented in this encounter
--- OUTSIDE RECORDS SUMMARY | ~2019-08-17 | XMS | Encounter Summary ---
Demographics + + + | Address | [address] | | | [place] [address] | + + + | Home Phone [...] [place] | | | | | [address] | | + + + + + Care Team Providers + +------+ + | Care Oracle Iam Consultant Name | Role | Phone | [...] | | | | | | [place], | | | | | | [place] [address] | | | | | | [phone] | | | +--------+ + + + [...] | | + +---------+ + + | [facility] DEPARTMENT OF | | | | | RADIOLOGY | | | | + +---------+ + + documented in this encounter Visit Diagnoses + + | Diagnosis | + + | Osteomyelitis of knee region (HCC) Unspecified osteomyelitis, lower leg | + + documented in this encounter"
--- OUTSIDE RECORDS SUMMARY | ~2019-08-17 | XMS | Encounter Summary ---
Demographics + + + | Address | [address] | | | [place] [address] | + + + | Home Phone [...] + | Grisel Marc | ECON | [address] | | | | | [place] | | | | | [address] | | + + + + + Care Team Providers + +------+ + | Care Clinical Support Nurse Name | Role | Phone | [...] | | | | of right | [address] | [address] | | | | | patella, | [address] | | | | | initial | [place], [place] | [place], [place] | | | | | encounter | [address] | [address] | | | | | Pain in | Phone: | Phone: | | | | | right knee | [phone] | [phone] | | | | | | Fax: | Fax: | | | | | | [phone] | [phone] | +--------+--------+ + + + + Encounter [...] | | [address] | [address] | (Primary Dx) | | | | [address] | [phone] | | | | | [place], [place] | | | | | | [address] | | | | | | [phone] | | | +--------+---------+ + + + [...]
--- OUTSIDE RECORDS SUMMARY | ~2019-08-17 | XMS | Encounter Summary ---
Demographics + + + | Address | [address] | | | [place] [address] | + + + | Home Phone [...] + | Grisel Marc | ECON | [address] | | | | | [place] | | | | | [address] | | + + + + + Care Team Providers + +------+ + | Care Pst Specialist Name | Role | Phone | [...] [place] | | | | | [address] | [address] | | | | | | [phone] | | | | | | | [...] | | Results for this | | [address] | e | 10:19 AM | | procedure are in the | | | | PST | | results section. | + +--------+ + + + documented in this encounter Results ORT KNEE 3V 36679 (07/14/2015 10:19 AM PST) + + | Specimen | + + | | + + + + + | Narrative | Performed At | + + + | Name: | [facility] | | S[facility]Y [facility] | DEPARTMENT OF | | Phys: Mars Nicolas MD | RADIOLOGY | | | | | : 1990 Age: 24 Sex: F | | | Acct: [id number] Loc: ORTH | | | | | | Exam Date: 07/14/2015 Status: PRE CLI | | | Radiology No: [id number] | | | Unit No: | | | EXAM# TYPE/EXAM | | | RESULT | | | [id number] ORT/ORT KNEE 3V 73 | | | EXAM: ORT | | | KNEE 3V 02390 CLINICAL HISTORY: | | | Knee pain. [...] | Transcribed Date/Time: 07/14/2015 | | | (2428) Robotic Maintenance Technician: FLUENCY PAGE 1 | | | Signed Report | | | | | + + + + + | Procedure Note | + + | Interface, Radiology Results - 12/21/2015 11:29 AM PDT | | Name: SANDY MARC | | Phys: Mars Nicolas MD : | | 1990 Age: 24 Sex: F Acct: [id number] | | Loc: ORTH Exam Date: 07/14/2015 | | Status: PRE CLI Radiology No: [id number] | | Unit No: EXAM# TYPE/EXAM | | RESULT [id number] ORT/ORT KNEE 3V | | 73 EXAM: ORT KNEE 3V | | [address] CLINICAL HISTORY: Knee pain. Subacute injury. COMPARISON: [...] | | | Transcribed Date/Time: 07/14/2015 (1022) Robotic Maintenance Technician: FLUENCY PAGE 1 | | Signed Report [...] | | | | Transcribed Date/Time: 07/14/2015 (9952) | | Robotic Maintenance Technician: YORDY | | | | | | [...]
--- OUTSIDE RECORDS SUMMARY | ~2019-08-17 | XMS | Encounter Summary ---
Demographics + + + | Address | [address] | | | [place] [address] | + + + | Home Phone [...] Author + + + | Author | [facility] | + + + | Organization | [facility] | + + + | Address | Unknown | + + + | Phone | Unavailable | + + + Support + + + + + | Name | Relationship | Address | Phone | + + + + + | Grisel Marc | ECON | [address] | | | | | [place] | | | | | [address] | | + + + + + Care Team Providers + +------+ + | Care Media Marketing Specialist Name | Role | Phone | [...] | | | | [address] | [address] | | | | | [address] | [phone] | | | | | [place] | | | | | | [address] | | | | | | [phone] | | | +--------+ + + + [...]
--- OUTSIDE RECORDS SUMMARY | ~2019-08-17 | XMS | Encounter Summary ---
Demographics + + + | Address | [address] | | | [place] [address] | + + + | Home Phone | | + + + | Preferred Language | Unknown | + + + | Marital Status | Single | + + + | Jew Affiliation | LUT | + + + [...] [place] | | | | | [address] | | + + + + + Care Team Providers + +------+ + | Care Geriatric Physician Name | Role | Phone | [...] [address] | | | | | | [place], [place] | | | | | | [address] | | | | | | [phone] | | | +--------+ + + + [...]
--- OUTSIDE RECORDS SUMMARY | ~2019-08-17 | XMS | Encounter Summary ---
Demographics + + + | Address | [address] | | | [place] [address] | + + + | Home Phone [...] [place] | | | | | [address] | | + + + + + Care Team Providers + +------+ + | Care Follow Up Manager Name | Role | Phone | [...] Pavilion | | | | | | [place], [place] | | | | | | [address] | | | | | | [phone] | | | +--------+ + + + [...]
--- OUTSIDE RECORDS SUMMARY | ~2019-08-17 | XMS | Encounter Summary ---
Demographics + + + | Address | [address] | | | [place] [address] | + + + | Home Phone [...] + | Grisel Marc | ECON | [address] | | | | | [place] | | | | | [address] | | + + + + + Care Team Providers + +------+ + | Care Teacher Of The Visually Impaired Name | Role | Phone | + [...] | | | | | | [place] [address] | | | +--------+ + + + [...]
--- OUTSIDE RECORDS SUMMARY | ~2019-08-17 | XMS | Encounter Summary ---
Demographics + + + | Address | [address] | | | [place] [address] | + + + | Home Phone [...] [place] | | | | | [address] | | + + + + + Care Team Providers + +------+ + | Care Rock Worker Name | Role | Phone | [...] Pavilion | | | | | | [place], [place] | | | | | | [address] | | | | | | [phone] | | | +--------+ + + + [...] + | HEMOGLOBIN | 8.7 (A) | 12 - | NON [facility] | | | [...] + +---------+ + + | NON [facility] VITA | | | | + +---------+ + + documented in this encounter Visit Diagnoses Not on filedocumented in this encounter"
--- OUTSIDE RECORDS SUMMARY | ~2019-08-17 | XMS | Encounter Summary ---
Demographics + + + | Address | [address] | | | [place] [address] | + + + | Home Phone [...] + | Grisel Marc | ECON | [address] | | | | | [place] | | | | | [address] | | + + + + + Care Team Providers + +------+ + | Care Scrap Drop Crane Operator Name | Role | Phone | [...] | | | [address] | [address] | | | | | [place] | [phone] | | | | | [address] | | | | | | [phone] | | | +--------+ + + + [...]
--- OUTSIDE RECORDS SUMMARY | ~2019-08-17 | XMS | Encounter Summary ---
Demographics + + + | Address | [address] | | | [place] [address] | + + + | Home Phone [...] Author + + + | Author | [facility] | + + + | Organization | [facility] | + + + | Address | Unknown | + + + | Phone | Unavailable | + + + Support + + + + + | Name | Relationship | Address | Phone | + + + + + | Grisel Marc | ECON | [address] | | | | | [place] | | | | | [address] | | + + + + + Care Team Providers + +------+ + | Care Histologic Aide Name | Role | Phone | + +------+ + | Adilia Bob OPERATING ROOM SPECIALIST | PCP | | + +------+ + Encounter Details +--------+ + + + + | Date | Type | Department | Care Team | Description | +--------+ + + + + | 03/10/ | Heel Coverer Machine Operator | Orthopaedics at | Alton Hernandez MD | Osteomyelitis of | | 2012 | | [address] | | knee region (HCC) | | | | [address] | | (Primary Dx); | | | | Mailcode: [id number] | | Pathologic fracture | | | | [facility] | | of tibia or fibula | | | | [place], [place] | | | | | | [address] | | | | | | [phone] | | | +--------+ + + + [...] | | + +---------+ + + | [facility] DEPARTMENT OF | | [...]
--- OUTSIDE RECORDS SUMMARY | ~2019-08-17 | XMS | Encounter Summary ---
Demographics + + + | Address | [address] | | | [place] [address] | + + + | Home Phone | | + + + | Preferred Language | Unknown | + + + | Marital Status | | + + + | Mosque Affiliation | Unknown | + + + | Race | Unknown | + + + | Ethnic Group | Unknown | + + + Author + + + | Author | [facility] | | | and [place] | + + + | Organization | [facility] | | | [...] Team Providers + +------+ + | Care Clock And Watch Hands Dipper Name | Role | Phone | + [...] Provider Unknown | | | | | [place], [place] | [phone] | | | | | [address] | | | | | | [phone] | | | +--------+ + + + [...]
--- OUTSIDE RECORDS SUMMARY | ~2019-08-17 | XMS | Encounter Summary ---
Demographics + + + | Address | [address] | | | [place] [address] | + + + | Home Phone | | + + + | Preferred Language | Unknown | + + + | Marital Status | Single | + + + | Tenriism Affiliation | LUT | + + + [...] + | Grisel Marc | ECON | [address] | | | | | [place] | | | | | [address] | | + + + + + Care Team Providers + +------+ + | Care Bale Piler Name | Role | Phone | + +------+ + | Hina Peterson | PCP | | + +------+ + Encounter Details +--------+ + + + + | Date | Type | Department | Care Team | Description | +--------+ + + + + | 06/04/ | Hospital | [facility] | | | | 2018 | Encounter | Sports Medicine & | | | | | | Orthopaedic Surgery | | | | | | [address] | | | | | | [place] | | | | | | [address] | | | | | | [phone] | | | +--------+ + + + [...] | + + + | [address] [place] [address] | [facility] | | [place] [address] | [facility] | | [phone] Name: MINNIESHARIFYOU Phys: | RADIOLOGY | | IZABELLAJACI : 1990 Sex: F CSN: | | | [id number] MR# [id number] Exam Date: 06/04/2019 | | | EXAM: X-RAY KNEE 3 VIEWS LEFT 04493; X-RAY KNEE 2 VIEWS RIGHT | | | [address] CLINICAL HISTORY: Left knee pain. COMPARISON: None [...] Transcribed Date/Time: 06/04/2019 | | | 23:16 French Teacher: FLUENCY | | + + + + + | Procedure Note | + + | Interface, Radiology Results - 06/04/2019 11:21 PM PDT [address] | | [address] [place] [address] | | Name: SANDY MARC Phys: JACI PAREKH : 1990 Sex: F | | CSN: [id number] MR# [id number] Exam Date: 06/04/2019 EXAM:X-RAY KNEE 3 VIEWS | | LEFT 44929; X-RAY KNEE 2 VIEWS RIGHT 27468 CLINICAL HISTORY:Left knee pain. | | COMPARISON:None [...] | | |Transcribed Date/Time: 06/04/2019 23:16 | |French Teacher: FLUENCY | | | | | | [...] | + + + | [address] | [facility] | | [place] [address] | DEPARTMENT OF | | [phone] Name: SANDY MARC Phys: | RADIOLOGY | | JACI PAREKH : 1990 Sex: F CSN: | | | [id number] MR# [id number] Exam Date: 06/04/2019 | | | EXAM: X-RAY KNEE 3 VIEWS LEFT 74321; X-RAY KNEE 2 VIEWS RIGHT | | | [address] CLINICAL HISTORY: Left knee pain. COMPARISON: None [...] | | | 06/04/2019 Reported by: HELENA BARRZAA MD Electronically | | | signed by: HELENA BARRAZA MD Transcribed Date/Time: 06/04/2019 | | | 23:16 French Teacher: FLUENCY | | + + + + + | Procedure Note | + + | Interface, Radiology Results - 06/04/2019 11:21 PM PDT [address] | | [address] [place] [address] | | Name: SANDY MARC Phys: JACI PAREKH : 1990 Sex: F | | CSN: [id number] MR# [id number] Exam Date: 06/04/2019 EXAM:X-RAY KNEE 3 VIEWS | | LEFT 03579; X-RAY KNEE 2 VIEWS RIGHT [address]258 CLINICAL HISTORY:Left knee pain. | | COMPARISON:None [...] | | |Transcribed Date/Time: 06/04/2019 23:16 | |French Teacher: FLUENCY | | | | | | [...]
--- OUTSIDE RECORDS SUMMARY | ~2019-08-17 | XMS | Encounter Summary ---
Demographics + + + | Address | [address] | | | [place] [address] | + + + | Home Phone [...] [place] | | | | | [address] | | + + + + + Care Team Providers + +------+ + | Care Sign Designer Name | Role | Phone | [...] [place] | | | | | [facility] | [address] | | | | | Hospital Admitting | [place], [place] | | | | | Desk Located on the | [address] | | | | | 9th floor | [phone] | | | | | [place], [place] | | | | | | [address] | Viktoriya Jennings MD | | | | | | [address] | | | | | | [place] [facility] | | | | | | [place] [address] | | | | | | [phone] | | | | | | | | +--------+ + + + + Anesthesia Record + + + + + | Procedure Name | Responsible | Anesthesia Start | Anesthesia Stop Time | | | Anesthesiologist | Time | | + + + + + | IRRIGATION AND | Shakila Burgos MD | 09/02/12 1407 | 09/02/12 8985 | | DEBRIDEMENT OF LEFT | | [...]
--- OUTSIDE RECORDS SUMMARY | ~2019-08-17 | XMS | Encounter Summary ---
Demographics + + + | Address | [address] | | | [place] [address] | + + + | Home Phone [...] Author + + + | Author | [facility] | + + + | Organization | [facility] | + + + | Address | Unknown | + + + | Phone | Unavailable | + + + Support + + + + + | Name | Relationship | Address | Phone | + + + + + | Grisel Marc | ECON | [address] | | | | | [place] | | | | | [address] | | + + + + + Care Team Providers + +------+ + | Care Workers' Compensation Mediator Name | Role | Phone | + [...] of tibia or | | | | [place], [place] | | fibula; | | | | [address] | | Osteomyelitis of | | | | [phone] | | knee region (HCC); | | | | | | Septic 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| | | | | knee, left (HCC); | | | | | | AVN (avascular | | | | | | necrosis of bone) | | | | | | ([facility]) | +--------+---------+ + + + Social History [...] surgeries scheduled to take place on the [place] [facility] the [facility]: Surgeries scheduled in the [facility] ([address] [place] [address]): registration is located on the 4th floor of [facility] (Day Surgery). Surgeries scheduled in the [facility]: registration is located on the 9th floor. Surgeries scheduled in [facility]: registration is located on the 6th floor. Surgeries scheduled in the [facility]: registration is located i n the [facility] on the first floor. For surgeries scheduled to take place at the [facility]: registration is l [...] you use specialized medical equipment at h [facility], please check with your provider before [...] in conjunction with Dr. Jovany almanzar from [place]. Her HPI is copied from her previous [...] plateau fracture by Dr. Jerald Don in [place] on 12/10/11. Calcium phosphate cement was used [...]
--- OUTSIDE RECORDS SUMMARY | ~2019-08-17 | XMS | Encounter Summary ---
Demographics + + + | Address | [address] | | | [place] [address] | + + + | Home Phone [...] [place] | | | | | [address] | | + + + + + Care Team Providers + +------+ + | Care It Technical Support Specialist Name | Role | Phone | [...] | | | | | | [place], | | | | | | [place] [address] | | | | | | [phone] | | | +--------+ + + + [...] | | + +---------+ + + | [facility] DEPARTMENT OF | | | | | RADIOLOGY | | | | + +---------+ + + documented in this encounter Visit Diagnoses + + | Diagnosis | + + | Osteomyelitis of knee region (HCC) Unspecified osteomyelitis, lower leg | + + documented in this encounter"
--- OUTSIDE RECORDS SUMMARY | ~2019-08-17 | XMS | Encounter Summary ---
Demographics + + + | Address | [address] | | | [place] [address] | + + + | Home Phone [...] [place] | | | | | [address] | | + + + + + Care Team Providers + +------+ + | Care Entry Processor Name | Role | Phone | + +------+ + | Adilia Bob TIRE LAYER | PCP | | + +------+ + [...] | | | | | Septic | [place], [place] | [facility] | | | | | 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[address] | [place] [address] | | | | | knee, left | | Phone: | | | | | ([facility]) | | [phone] | | | | | Procedures | | Fax: | | | | | CONSULT TO | | [phone] | | | | | INFECTIOUS | [...] | MD [address] | knee region ([facility]) | | | | Floor [address] | (Primary Dx) | | | | [address] | [place] [address] | | | | | Mailcode: L457 | [phone] | | | | | [facility] | | | | | | [place], [place] | | | | | | [address] | | | | | | [phone] | | | +--------+---------+ + + + [...] Lavinia Peck MD - 08/25/2012 10:10 PM [facility] Clinic Date: 08/25/2012 Clinic: Infectious Disease I [...] Lavinia Peck M.D., Ph.D. [place] / [facility] [id number] / [id number] / [id number] / Lavinia Lam MD - 08/25/2012 9:30 AM PST This office note has been dictated. [facility] #: [id number] I spent 45 minutes with the patient [...] + + + + + | [facility] | [address] | [place] [address] | | | SERVICES, SPECIAL | PARK [...] | | | | | in the [facility] | | | | | | LaboratoryTest Directory | | | | | | ([facility]). | | | | + + + [...] Directory | | | | | | ([facility]). | | | | + + + [...] | | | | | in the [facility] | | | | | | LaboratoryTest Directory | | | | | | ([facility]). | | | | + + + [...] # | | | | | | [phone]). Access | | | | | | complete set of age- | | | | | | and/or | | | | | | gender-specificreference | | | | | | intervals for this test | | | | | | in the [employer] | | | | | | LaboratoryTest Directory | | | | | | ([facility]).Performed | | | | | | by [facility] | | | | | | [facility] | | | | | | [place] [address] | | | | | | [phone]. | | | | | | tooele [...] [facility] | [address] | [place], [place] | | | [facility] | | [address] | | + + + + + [...] - | | | | | | [place] | | + +-------+ + + + + + | Specimen | + + | Blood - Blood | + + + + + + + | Performing | Address | City/State/Zipcode | Phone Number | | Organization | | | | + + + + + | [facility] | [address] | [place] [address] | | | [place] | | | | + + + + + documented in this encounter Visit Diagnoses + + | Diagnosis | + + | Osteomyelitis of knee region (HCC) - Primary Unspecified osteomyelitis, lower leg | + + documented in this encounter"
--- OUTSIDE RECORDS SUMMARY | ~2019-08-17 | XMS | Encounter Summary ---
Demographics + + + | Address | [address] | | | [place] [address] | + + + | Home Phone [...] [place] | | | | | [address] | | + + + + + Care Team Providers + +------+ + | Care Oil Rigger Name | Role | Phone | + [...] region (HCC) | | | | at [facility] 3rd Floor | | | | | | [address] | | | | | | [address] [place], [place] | | | | | | [address] | | | | | | [phone] | | | +--------+------+ + + + [...] | 10:01 AM | knee region ([facility]) | procedure are in the | | | | PST | | results section. | + +--------+ + + + | HIV-1,2 AB/HIV-1 P24 | Routin | 08/25/2012 | Osteomyelitis of | Results for this | | AG SCRN | e | 10:01 AM | knee region ([facility]) | procedure are in the | | | | PST | | results section. | + +--------+ + + + | IGA, SERUM | Routin | 08/25/2012 | Osteomyelitis of | Results for this | | | e | 10:01 AM | knee region ([facility]) | procedure are in the | | [...] [facility] | [address] | [place] [address] | | | SERVICES, CORE | PARK [...] [facility] | [address] | [place] [address] | | | SERVICES, SPECIAL | PARK [...] | | | | | in the [facility] [employer] | | | | | | LaboratoryTest Directory | | | | | | (Orthobond). | | | | + + + [...] Directory | | | | | | (Orthobond). | | | | + + + [...] | | | | | in the [facility] | | | | | | LaboratoryTest Directory | | | | | | (Orthobond). | | | | + + + [...] # | | | | | | [phone]). Access | | | | | | complete set of age- | | | | | | and/or | | | | | | gender-specificreference | | | | | | intervals for this test | | | | | | in the [facility] | | | | | | LaboratoryTest Directory | | | | | | ([email or web address].Tipser).Performed | | | | | | by [facility] | | | | | | [facility],[address] [place] [address] | | | | | | [place] [address] | | | | | | [phone]. | | | | | | intermountain [...] [facility] | [address] | [place], [place] | | | UN[facility] | | [address] | | + + + + + [...] | + + + + + | [email or web address] - | [address] | [place] [address] | | | [place] | | | | + + + + + documented in this encounter Visit Diagnoses + + | Diagnosis | + + | Osteomyelitis of knee region (HCC) Unspecified osteomyelitis, lower leg | + + documented in this encounter"
--- OUTSIDE RECORDS SUMMARY | ~2019-08-17 | XMS | Encounter Summary ---
Demographics + + + | Address | [address] | | | [place] [address] | + + + | Home Phone [...] + | Grisel Marc | ECON | [address] | | | | | [place] | | | | | [address] | | + + + + + Care Team Providers + +------+ + | Care Aircraft Maintenance Engineer Name | Role | Phone | + +------+ + | Hina Peterson | PCP | | + +------+ + Reason for Referral Diagnostic Testing (Routine) + +--------+ + + + + | Status | Reason | Specialty | Diagnoses / | Referred By | Referred To | | | | | Procedures | Contact | Contact | + +--------+ + + + + | Authorized | | Radiology / | Diagnoses | Jose Enrique Blue | | | | Non [facility] | Left knee | [facility] | [facility] | | | | Department | pain, | [address] | [address] | | | | | unspecified | [address] | [address] | | | | | chronicity | [place], | [place], [place] | | | | | Tears of | [place] | [address] | | | | | meniscus and | [address] | Phone: | | | | | anterior | Phone: | [phone] | | | | | cruciate | [phone] | Fax: | | | | | ligament of | Fax: | [phone] | | | | | left knee, | [phone] | | | | | | initial | | | | | | | encounter | | | | | | | Procedures | | | | | | | MRI KNEE | | | | | | | LEFT WO | | | | | | | CONTRAST [place] | | | | | | | [...] | | | Orthopaedic Surgery | Blvd [place], [place] | chronicity (Primary | | | | [address] | [address] | Dx); Tears of | | | | [place], [place] | [phone] | meniscus and | | | | [address] | | anterior cruciate | | | | [phone] | | ligament of left | | [...] Marc is a 28 y.o. female from [place] who presents to the office today for [...] ACL brace which helps with some symptoms. How er she does have persistent instability in [...] Follow up: After MRI Jaci Blue PA-C [facility] Orthopaedics and Rehabilitation Orthopaedic Physician Sewing Trimmer [facility] Orthopaedics and Sports Medicine [address] [place] [address] Office: [phone] documented in this e ncounter Plan of [...] | + + + | [address] [place] [address] | [facility] | | [place] [address] | [facility] | | [phone] Name: SANDY MARC Phys: | RADIOLOGY | | JACI BLUE : 1990 Sex: F CSN: | | | [id number] MR# [id number] Exam Date: 06/04/2019 | | | EXAM: [...] Transcribed | | | Date/Time: 06/04/2019 11:28 Hydraulic Plumber Helper: FLUENCY | | + + + + + | Procedure Note | + + | Interface, Radiology Results - 06/04/2019 11:36 AM PDT [address] | | [address] [place] [address] | | Name: SANDY MARC Phys: JACI BLUE : 1990 Sex: F | | CSN: [id number] MR# [id number] Exam Date: 06/04/2019 EXAM:LEFT LOWER EXTREMITY | [...] | | |Transcribed Date/Time: 06/04/2019 11:28 | |Hydraulic Plumber Helper: FLUENCY | | | | | | [...] | + + + | [address] [place] [address] | [facility] | | [place] [address] | DEPARTMENT OF | | [phone] Name: SANDY MARC Phys: | RADIOLOGY | | JACI BLUE : 1990 Sex: F CSN: | | | [id number] MR# [id number] Exam Date: 06/04/2019 | | | EXAM: X-RAY KNEE 3 VIEWS LEFT 03579; X-RAY KNEE 2 VIEWS RIGHT | | | [address] CLINICAL HISTORY: Left knee pain. COMPARISON: None [...] Transcribed Date/Time: 06/04/2019 | | | 23:16 Hydraulic Plumber Helper: YORDY | | + + + + + | Procedure Note | + + | Interface, Radiology Results - 06/04/2019 11:21 PM PDT [address] | | [address] [place] [address] | | Name: SANDY MARC Phys: JACI BLUE : 1990 Sex: F | | CSN: [id number] MR# [id number] Exam Date: 06/04/2019 EXAM:X-RAY KNEE 3 VIEWS | | LEFT 36770; X-RAY KNEE 2 VIEWS RIGHT 20593 CLINICAL HISTORY:Left knee pain. | | COMPARISON:None [...] | | |Transcribed Date/Time: 06/04/2019 23:16 | |Hydraulic Plumber Helper: FLUENCY | | | | | | [...] | + + + | [address] | [facility] | | [place] [address] | DEPARTMENT OF | | [phone] Name: SANDY MARC Phys: | RADIOLOGY | | JACI BLUE : 1990 Sex: F CSN: | | | [id number] MR# [id number] Exam Date: 06/04/2019 | | | EXAM: X-RAY KNEE 3 VIEWS LEFT 62026; X-RAY KNEE 2 VIEWS RIGHT | | | 106[address] CLINICAL HISTORY: Left knee pain. COMPARISON: None [...] Transcribed Date/Time: 06/04/2019 | | | 23:16 Hydraulic Plumber Helper: FLUENCY | | + + + + + | Procedure Note | + + | Interface, Radiology Results - 06/04/2019 11:21 PM PDT [address] | | [place] [address] | | Name: SANDY MARC Phys: JACI BLUE : 1990 Sex: F | | CSN: [id number] MR# [id number] Exam Date: 06/04/2019 EXAM:X-RAY KNEE 3 VIEWS | | LEFT 318[address]; X-RAY KNEE 2 VIEWS RIGHT 06220 CLINICAL HISTORY:Left knee pain. | | COMPARISON:None [...] | | |Transcribed Date/Time: 06/04/2019 23:16 | |Hydraulic Plumber Helper: FLUENCY | | | | | | [...]
--- OUTSIDE RECORDS SUMMARY | ~2019-08-17 | XMS | Encounter Summary ---
Demographics + + + | Address | [address] | | | [place] [address] | + + + | Home Phone [...] [place] | | | | | [address] | | + + + + + Care Team Providers + +------+ + | Care Venetian Blind Machine Operator Name | Role | Phone [...] | | | | | Health | [facility] | | | | | | Associates | Rd | | | | | | [address] | [place], [place] | | | | | | [address] | [address] | | | | | | [place], | | | | | | | [place] [address] | | | | | | | Phone: | | | | | | | [phone] | | | | | | | Fax: | | | | | | | [phone] | | +--------+--------+ + + + + [...] | | | | [address] | [place] [address] | | | | | Mailcode: [id number] | [phone] | | | | | [facility] | | | | | | [facility] [place] | | | | | | [address] | | | | | | [phone] | | | +--------+---------+ + + + [...] FOLLOW UP Referrring Physician: Alton Hernandez MD [address] [place] [address] Primary Care Physician: [facility] [address], [address] [place] [address] Ms. Marc presents to Infectious Diseases Clinic regarding scheduled follow up. History other than "Interim History" below is directly copied from previous ID notes to darya mcdonough. In addition I reviewed the history from the patient's [facility] admiss ion, including but not limited to [...] placement of antibiotic beads 09/03/2012: HIRAM Silva [facility] Operative Findings: There were no gross [...] She was seen in the ER in [place] and had a CT Thor ax that [...] described above. ZOEY PECK MD INFECTIOUS DISEASES [address] [place] [address] Mailcode: L608 [place] [address] documented in this e ncounter Plan of Treatment Not on filedocumented as of this encounter Visit Diagnoses + + | Diagnosis | + + | Osteomyelitis of knee region (HCC) - Primary Unspecified osteomyelitis, lower leg | + + documented in this encounter
--- OUTSIDE RECORDS SUMMARY | ~2019-08-17 | XMS | Encounter Summary ---
Demographics + + + | Address | [address] | | | [place] [address] | + + + | Home Phone [...] + | Grisel Marc | ECON | [address] | | | | | [place] | | | | | [address] | | + + + + + Care Team Providers + +------+ + | Care Hair Cutter Name | Role | Phone | [...] | | | [address] | [address] | | | | | [address] | [phone] | | | | | [place] | | | | | | [address] | | | | | | [phone] | | | +--------+ + + + [...]
--- OUTSIDE RECORDS SUMMARY | ~2019-08-17 | XMS | Encounter Summary ---
Demographics + + + | Address | [address] | | | [place] [address] | + + + | Home Phone [...] [place] | | | | | [address] | | + + + + + Care Team Providers + +------+ + | Care Ironworker Apprentice Shop Name | Role | Phone | + [...] + + + + | 09/04/ | Lining Cutter | Infectious | Brigid Hardy | | | 2012 | | [facility] at [facility] | [place] | | | | | Floor [address] | | | | | | [address] | | | | | | Mailcode: L457 | | | | | | [facility] | | | | | | [place], [place] | | | | | | [address] | | | | | | [phone] | | | +--------+ + + + [...]
--- OUTSIDE RECORDS SUMMARY | ~2019-08-17 | XMS | Encounter Summary ---
Demographics + + + | Address | [address] | | | [place] [address] | + + + | Home Phone [...] [place] | | | | | [address] | | + + + + + Care Team Providers + +------+ + | Care Pier Master Name | Role | Phone | + [...]
--- OUTSIDE RECORDS SUMMARY | ~2019-08-17 | XMS | Encounter Summary ---
Demographics + + + | Address | [address] | | | [place] [address] | + + + | Home Phone [...] [place] | | | | | [address] | | + + + + + Care Team Providers + +------+ + | Care Rail Gang Supervisor Name | Role | Phone | [...] + + + + | 09/24/ | Software Development Coordinator | Infectious | Brigid Hardy | | | 2012 | | [facility] | [place] | | | | | Floor [address] | | | | | | [address] | | | | | | Mailcode: L457 | | | | | | [facility] | | | | | | [place], [place] | | | | | | [address] | | | | | | [phone] | | | +--------+ + + + [...]
--- OUTSIDE RECORDS SUMMARY | ~2019-08-17 | XMS | Encounter Summary ---
Demographics + + + | Address | [address] | | | [place] [address] | + + + | Home Phone [...] [place] | | | | | [address] | | + + + + + Care Team Providers + +------+ + | Care Outbound Sales Executive Name | Role | Phone | [...] | | | | necrosis of | [facility] | [place] | | | | | bone) (HCC) | Rd | [address] | | | | | Septic | [place], [place] | [place], | | | | | 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[address] | [place] [address] | | | | | knee, left | | Phone: | | | | | ([facility]) | | [phone] | | | | | Procedures | | Fax: | | | | | CONSULT TO | | [phone] | | | | | INFECTIOUS | [...] | | | Osteomyeliti | Family | [address] [facility] | | | | | s of knee | Health | [facility] | | | | | region ([facility]) | Associates | Rd [place], | | | | | [address]N | [address] | [place] | | | | | (avascular | [address] | [address] | | | | | necrosis of | [place], | | | | | | bone) ([facility]) | [place] [address] | | | | | | Pathologic | Phone: | | | | | | fracture of | [phone] | | | | | | tibia or | Fax: | | | | | | fibula | [phone] | | | | | | Septic | | | | | | | 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| | | | | | knee, left | | | | | | | ([facility]) | | | | | | | Procedures | | | | | | | REQUEST TO | | | | | | | SURGERY | | | | | | | STEAM SHOVEL ENGINEER | | | | | | | MA PARTIAL | | | | | | | REMOVAL OF | | | | | | | TIBIA MA | | | | | | | INSERTION | | | | | | | DRUG IMPLANT | | | | | | | DEVICE MA | | | | | | | KNEE | | | | | | | SCOPE,SHAVE | | | | | | | ARTICULAR | | | | | | | CART MA | | | | | | | [...] | | | | | Procedures | [place], [place] | [address] | | | | | MRI KNEE | [address] | [place] | | | | | LT WWO CONT | Phone: | Research | | | | | | [phone] | Center | | | | | | Fax: | [place], [place] | | | | | | [phone] | [address] | | | | | | | Phone: | | | | | | | [phone] | | | | | | | Fax: | | | | | | | [phone] | +--------+--------+ + + + + Reason [...] s, lower leg | REFERRING | Rd [place], | | | | | L medial | PROVIDER PER | [place] | | | | | tibial | [place] | [address] | | | | | plateau fx [...] | [facility] | | of bone) ([facility]); | | | | [place], [place] | | Pathologic fracture | | | | [address] | | of tibia or fibula; | | | | [phone] | | Septic 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| | | | | knee, left ([facility]) | +--------+---------+ + + + [...] might be different fr om the original. [facility] Orthopaedic Clinic- New Patient Referring Physician: Dr. [...] plateau fracture by Dr. Jerald Don in [place] on 12/10/11. Calcium phosphate cement was used [...] MRI w/ contrast done on 07/09/12 at [facility], but are unable to view the [...] subchondral | | | | | | [id number] hyperintensity | | | | | | [...] + | [facility] - | [address] | [place] [address] | | | [place] | | | [...] [facility] | [address] | [place] [address] | | | SERVICES, CORE | PARK [...] | | | LABORATORY | | | [place] | | | SERVICES, | | | [...] [facility] | [address] | [place] [address] | | | SERVICES, CORE | JOY [...]
--- OUTSIDE RECORDS SUMMARY | ~2019-08-17 | XMS | Encounter Summary ---
Demographics + + + | Address | [address] | | | [place] [address] | + + + | Home Phone [...] [place] | | | | | [address] | | + + + + + Care Team Providers + +------+ + | Care Retail Salesperson Name | Role | Phone | + [...] | | | | | Health | [facility] | | | | | | Associates | Rd | | | | | | [address] | [place], [place] | | | | | | [address] | [address] | | | | | | [place], | | | | | | | [place] [address] | | | | | | | Phone: | | | | | | | [phone] | | | | | | | Fax: | | | | | | | [phone] | | +--------+--------+ + + + + [...] | | [address] | [place] [address] | | | | | Mailcode: L608 | [phone] | | | | | [facility] | | | | | | [address] | | | | | | [facility] [place] | | | | | | [address] | | | | | | [phone] | | | +--------+---------+ + + + [...] FOLLOW UP Referrring Physician: Alton Hernandez MD [address] [place] [address] Primary Care Physician: [facility] [address], [address] [place] [address] Ms. Marc presents to Infectious Diseases Clinic regarding scheduled follow up. Please refer to prior documentation including inpatient OPAT teaching note, outpatient OPAT mail order clerk for antibiotic therapy, lab monitoring History other than "Interim History" below is directly copied from previous ID notes to darya mcdonough. In addition I reviewed the history from the patient's [facility] admiss ion, including but not limited to all pertinent ID consultation notes, surgical procedures & findings, culture results & lab tests, pathology reports, case management notes, and the spital discharge summary.Sandy Marc is a 22 y.o. female a couple of weeks of knee p ain in November 2011 and then was doing rodeo on her horse going around [employer], and she was le aning out away [...] placement of antibiotic beads 09/03/2012: HIRAM Silva [facility] Operative Findings: There were no [...] She was seen in the ER in [place] and had a CT Thor ax that [...] Marc follow up in Infectious Diseases Clinic [facility] I spent 20 minutes in a face-to face visit with the patient, with over 50% of time spen t in councelling the patient. We discussed infection, antibiotics, duration of therapy, lab results, and follow-up planning, as described above. ZOEY PECK MD INFECTIOUS DISEASES [address] [place] [address] Mailcode: L608 [place] [address] documented in this e ncounter Plan of Treatment Not on filedocumented as of this encounter Visit Diagnoses + + | Diagnosis | + + | Osteomyelitis of knee region (HCC) - Primary Unspecified osteomyelitis, lower leg | + + documented in this encounter
--- OUTSIDE RECORDS SUMMARY | ~2019-08-17 | XMS | Encounter Summary ---
Demographics + + + | Address | [address] | | | [place] [address] | + + + | Home Phone [...] Author + + + | Author | [facility] | + + + | Organization | [facility] | + + + | Address | Unknown | + + + | Phone | Unavailable | + + + Support + + + + + | Name | Relationship | Address | Phone | + + + + + | Grisel Marc | ECON | [address] | | | | | [place] | | | | | [address] | | + + + + + Care Team Providers + +------+ + | Care Raw Silk Grader Name | Role | Phone | [...] [place] | | | | | | [address] | | | | | | [phone] | | | +--------+------+ + + + [...] | + + + + + | [facility] | And | [place] [address] | [phone] | | [facility]ICAL [facility] | Streets | | | + + + + + C-REACTIVE PROTEIN (06/25/2019 8:15 AM PST) + +-------+ + + + | Component | Value | Ref Range | Performed | Pathologist | | | | | At | Signature | + +-------+ + + + | C-REACTIVE | 0.6 | 0.0 - 0.9 mg/dL | [facility] | | | PROTEIN | | | [...] | th [address] | [place] [address] | [phone] | | [facility] [place] | [facility] | | | + + + + + documented in this encounter Visit Diagnoses + + | Diagnosis | + + | Osteomyelitis of knee region (HCC) Unspecified osteomyelitis, lower leg | + + documented in this encounter"
--- OUTSIDE RECORDS SUMMARY | ~2019-08-17 | XMS | Encounter Summary ---
Demographics + + + | Address | [address] | | | [place] [address] | + + + | Home Phone [...] [place] | | | | | [address] | | + + + + + Care Team Providers + +------+ + | Care Jig Filler Name | Role | Phone | + [...] | | | | | | [place], | | | | | | [place] [address] | | | | | | [phone] | | | +--------+ + + + [...]
--- OUTSIDE RECORDS SUMMARY | ~2019-08-17 | XMS | Encounter Summary ---
Demographics + + + | Address | [address] | | | [place] [address] | + + + | Home Phone [...] + | Grisel Marc | ECON | [address] | | | | | [place] | | | | | [address] | | + + + + + Care Team Providers + +------+ + | Care Data Developer Name | Role | Phone | [...] | | [address] | [address] | | | | | [address] | [phone] | | | | | [place], [place] | | | | | | [address] | | | | | | [phone] | | | +--------+---------+ + + + [...] She had been followed by ID at [facility] also. She has had chronic symptoms of [...] She should keep it strong, use her allergist immunologist brace as tolerated. Of course she knows [...]
--- OUTSIDE RECORDS SUMMARY | ~2019-08-17 | XMS | Encounter Summary ---
Demographics + + + | Address | [address] | | | [place] [address] | + + + | Home Phone [...] [place] | | | | | [address] | | + + + + + Care Team Providers + +------+ + | Care Life Underwriter Name | Role | Phone | + [...] Pavilion | | | | | | [place], [place] | | | | | | [address] | | | | | | [phone] | | | +--------+ + + + [...]
--- OUTSIDE RECORDS SUMMARY | ~2019-08-17 | XMS | Encounter Summary ---
Demographics + + + | Address | [address] | | | [place] [address] | + + + | Home Phone [...] [place] | | | | | [address] | | + + + + + Care Team Providers + +------+ + | Care Chair Post Machine Operator Name | Role | Phone [...] (Left Knee | | 2019 | | [facility] [address] | Clinic | ) | | | | Deborah Mailcode: [id number] | | | | | | [facility] | | | | | | and Healing, | | | | | | Building | | | | | | Floor [place], [place] | | | | | | [address] | | | | | | [phone] | | | +--------+ + + + [...] Saba MD Directed referral?: yes - Dr. Rodriugez X-Ray Yes, when: 06/04/19; where: [facility] MRI Yes, where: [facility] Via phone 07/05/19 Other Imaging (CT, Ultrasound, etc.) No Is this a W/C injury? no If YES, create referral and complete: .ORTWCNEWPATIENT inside referral Note: We do not accept WC under [place] as they do not pay at [place] rates. Other out of state claims will only be accepted if they agree to pay at [place] rates docume nted in writing from adjustor. Can you confirm the insurance we will be billing for this visit? Care [place] Note: If OHP, please note which type. E.g. [place], [employer], [employer], etc. ) Reminder: Please create referrals for pts with: HMO, OHP, [place], Self-Pay, W/C, TPL an d ED Post- [...] they d like to sign up for [employer] ? Don t forget to pull in CareEveryWhere Additional Comments: documented in this encounter Plan of Treatment Not on filedocumented as of this encounter Visit Diagnoses Not on filedocumented in this encounter
--- OUTSIDE RECORDS SUMMARY | ~2019-08-17 | XMS | Encounter Summary ---
Demographics + + + | Address | [address] | | | [place] [address] | + + + | Home Phone [...] [place] | | | | | [address] | | + + + + + Care Team Providers + +------+ + | Care Bar Machine Operator Production Name | Role | Phone | + [...] | | | osteomyeliti | Street | [facility] | | | | | s, lower leg | [address] | Rd [place], | | | | | L knee | [place], | [place] | | | | | | [place] [address] | [address] | | | | | | Phone: | | | | | | | [phone] | | | | | | | Fax: | | | | | | | [phone] | | +--------+--------+ + + + + [...] | Osteomyelitis of | | | | [place], [place] | | knee region (HCC); | | | | [address] | | Septic 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| | | [phone] | | knee, left ([facility]) | +--------+---------+ + + + [...] horseback riding. However in the last w beaver and a half she has developed some [...] seconds capillary refill. Palpable dorsalis pedis and patient carrier ior tibial pulses. X-RAYS: Reviewed x-rays with [...] her infection. DARRICK BUITRAGO MD [facility] [address] [facility] Mailcode: [id number] [place] [address] documented in this en counter [...]
--- OUTSIDE RECORDS SUMMARY | ~2019-08-17 | XMS | Encounter Summary ---
Demographics + + + | Address | [address] | | | [place] [address] | + + + | Home Phone [...] [place] | | | | | [address] | | + + + + + Care Team Providers + +------+ + | Care Regrind Mill Operator Name | Role | Phone | [...] region (HCC) | | | | at [facility] 3rd Floor | | | | | | [address] | | | | | | [address] [place], [place] | | | | | | [address] | | | | | | [phone] | | | +--------+------+ + + + [...] [facility] | [address] | [place] [address] | | | MERCEDES, ELLIE | JOY [...] - | | | | | | [place] | | + +-------+ + + + + + | Specimen | + + | Blood - Blood | + + + + + + + | Performing | Address | City/State/Zipcode | Phone Number | | Organization | | | | + + + + + | [facility] | [address] | [place] [address] | | | [place] | | | [...] | + + + + + | [facility] | [address] | [place] [address] | | | SERVICES, CORE | JOY [...] | | | LABORATORY | | | ETHIOPIAN | | | SERVICES, | | | [...] | + + + + + | [facility] | [address] | [place] [address] | | | SERVICES, CORE | [address] | | | + + + + + documented in this encounter Visit Diagnoses + + | Diagnosis | + + | Osteomyelitis of knee region (HCC) Unspecified osteomyelitis, lower leg | + + documented in this encounter"
--- OUTSIDE RECORDS SUMMARY | ~2019-08-17 | XMS | Encounter Summary ---
Demographics + + + | Address | [address] | | | [place] [address] | + + + | Home Phone [...] + + + | Author | [facility] | + + + | Organization | [facility] | + + + | Address | Unknown | + + + | Phone | Unavailable | + + + Support + + + + + | Name | Relationship | Address | Phone | + + + + + | Grisel Marc | ECON | [address] | | | | | [place] | | | | | [address] | | + + + + + Care Team Providers + +------+ + | Care Pharmacy Informatics Specialist Name | Role | Phone | [...] | | | | | | [address] [place], | | | | | | [place] [address] | | | | | | [phone] | | | +--------+ + + + [...] | | | | | | MD Rolando THOMPSON have | | | | | | [...]
--- OUTSIDE RECORDS SUMMARY | ~2019-08-17 | XMS | Encounter Summary ---
Demographics + + + | Address | [address] | | | [place] [address] | + + + | Home Phone [...] + | Grisel Marc | ECON | [address] | | | | | [place] | | | | | [address] | | + + + + + Care Team Providers + +------+ + | Care Squad Leader Name | Role | Phone | + +------+ + | Hina Peterson | PCP | | + +------+ + Encounter Details +--------+ + + + + | Date | Type | Department | Care Team | Description | +--------+ + + + + | 12/05/ | Hospital | [facility] | | | | 2015 | Encounter | Sports Medicine & | | | | | | Orthopaedic Surgery | | | | | | [address] | | | | | | [place] | | | | | | [address] | | | | | | [phone] | | | +--------+ + + + [...]
--- OUTSIDE RECORDS SUMMARY | ~2019-08-17 | XMS | Encounter Summary ---
Demographics + + + | Address | [address] | | | [place] [address] | + + + | Home Phone [...] + | Grisel Marc | ECON | [address] | | | | | [place] | | | | | [address] | | + + + + + Care Team Providers + +------+ + | Care Information Security Analyst Name | Role | Phone | [...] | | [address] | [address] | | | | | [place], [place] | [phone] | | | | | [address] | | | | | | [phone] | | | +--------+ + + + [...]
--- OUTSIDE RECORDS SUMMARY | ~2019-08-17 | XMS | Encounter Summary ---
Demographics + + + | Address | [address] | | | [place] [address] | + + + | Home Phone [...] [place] | | | | | [address] | | + + + + + Care Team Providers + +------+ + | Care Volcanologist Name | Role | Phone | + [...] | s of knee | Health | [facility] | | | | | region ([facility]) | Associates | [address], | | | | | AVN | [address] | [place] | | | | | (avascular | St[address] | [address] | | | | | necrosis of | [place], | | | | | | bone) ([facility]) | [place] [address] | | | | | | Pathologic | Phone: | | | | | | fracture of | [phone] | | | | | | tibia or | Fax: | | | | | | fibula | [phone] | | | | | | Septic [...] | | | | | | | GRAPE CUTTER | | | | | | | [...] | left (HCC) | | | | [place], [place] | | | | | | [address] | | | | | | [phone] | | | +--------+---------+ + + + [...] Intraoperative Consult Diagnosis confirmed by: Kaushik Duong ([facility]) and Khushi Romero M.D./Pathologist ASSESSMENT: Doing well [...] separate note for details). DARRICK BUITRAGO MD [facility] [address] [place] [address] Mailcode: [id number] [place] [id number] Basia Vivar MA - 02/2013 3:15 PM [...]
--- OUTSIDE RECORDS SUMMARY | ~2019-08-17 | XMS | Encounter Summary ---
Demographics + + + | Address | [address] | | | [place] [address] | + + + | Home Phone [...] + | Grisel Marc | ECON | [address] | | | | | [place] | | | | | [address] | | + + + + + Care Team Providers + +------+ + | Care Field Crop I Farmworker Name | Role | Phone | + +------+ + | Hina Peterson | PCP | | + +------+ + Encounter Details +--------+ + + + + | Date | Type | Department | Care Team | Description | +--------+ + + + + | 12/05/ | Hospital | [facility] | | | | 2015 | Encounter | Sports Medicine & | | | | | | Orthopaedic Surgery | | | | | | [address] | | | | | | [place] | | | | | | [address] | | | | | | [phone] | | | +--------+ + + + [...]
--- OUTSIDE RECORDS SUMMARY | ~2019-08-17 | XMS | Encounter Summary ---
Demographics + + + | Address | [address] | | | [place] [address] | + + + | Home Phone [...] + | Grisel Marc | ECON | [address] | | | | | [place] | | | | | [address] | | + + + + + Care Team Providers + +------+ + | Care Process Engineering Intern Name | Role | Phone | + +------+ + | Hina Peterson | PCP | | + +------+ + Encounter Details +--------+ + + + + | Date | Type | Department | Care Team | Description | +--------+ + + + + | 06/04/ | Hospital | [facility] | | | | 2018 | Encounter | Sports Medicine & | | | | | | Orthopaedic Surgery | | | | | | [address] | | | | | | [place] | | | | | | [address] | | | | | | [phone] | | | +--------+ + + + [...] | + + + | [address] [place] [address] | [facility] | | [place] [address] | [facility] | | [phone] Name: MINNIESHARIFYOU Phys: | RADIOLOGY | | IZABELLAJACI : 1990 Sex: F CSN: | | | [id number] MR# [id number] Exam Date: 06/04/2019 | | | EXAM: X-RAY KNEE 3 VIEWS LEFT [id number]; X-RAY KNEE 2 VIEWS RIGHT | | | [id number] CLINICAL HISTORY: Left knee pain. COMPARISON: None [...] Transcribed Date/Time: 06/04/2019 | | | 23:16 Beauty Culture Teacher: FLUENCY | | + + + + + | Procedure Note | + + | Interface, Radiology Results - 06/04/2019 11:21 PM PDT [address] | | [address] [place] [address] | | Name: SANDY MARC Phys: JACI PAREKH : 1990 Sex: F | | CSN: [id number] MR# [id number] Exam Date: 06/04/2019 EXAM:X-RAY KNEE 3 VIEWS | | LEFT 88597; X-RAY KNEE 2 VIEWS RIGHT [id number] CLINICAL HISTORY:Left knee pain. | | COMPARISON:None [...] | | |Transcribed Date/Time: 06/04/2019 23:16 | |Beauty Culture Teacher: FLUENCY | | | | | [...] Street | [facility] | | [place] [address] | DEPARTMENT OF | | [phone] Name: SANDY MARC Phys: | RADIOLOGY | | JACI PAREKH : 1990 Sex: F CSN: | | | [id number] MR# [id number] Exam Date: 06/04/2019 | | | EXAM: X-RAY KNEE 3 VIEWS LEFT 05320; X-RAY KNEE 2 VIEWS RIGHT | | | [address] CLINICAL HISTORY: Left knee pain. COMPARISON: None [...] Transcribed Date/Time: 06/04/2019 | | | 23:16 Beauty Culture Teacher: FLUENCY | | + + + + + | Procedure Note | + + | Interface, Radiology Results - 06/04/2019 11:21 PM PDT [address] | | [address] [place] [address] | | Name: SANDY MARC Phys: JACI PAREKH : 1990 Sex: F | | CSN: [id number] MR# [id number] Exam Date: 06/04/2019 EXAM:X-RAY KNEE 3 VIEWS | | LEFT 88371; X-RAY KNEE 2 VIEWS RIGHT [address]53[address] CLINICAL HISTORY:Left knee pain. | | COMPARISON:None [...] | | |Transcribed Date/Time: 06/04/2019 23:16 | |Beauty Culture Teacher: FLUENCY | | | | | [...]
--- OUTSIDE RECORDS SUMMARY | ~2019-08-17 | XMS | Encounter Summary ---
Demographics + + + | Address | [address] | | | [place] [address] | + + + | Home Phone [...] Author + + + | Author | [facility] | + + + | Organization | [facility] | + + + | Address | Unknown | + + + | Phone | Unavailable | + + + Support + + + + + | Name | Relationship | Address | Phone | + + + + + | Grisel Marc | ECON | [address] | | | | | [place] | | | | | [address] | | + + + + + Care Team Providers + +------+ + | Care Telephoner Name | Role | Phone | + [...] | | | | [address] | [address] | | | | | [address] [place] | [phone] | | | | | [place] | | | | | | [address] | | | | | | [phone] | | | +--------+ + + + [...]
--- OUTSIDE RECORDS SUMMARY | ~2019-08-17 | XMS | Encounter Summary ---
Demographics + + + | Address | [address] | | | [place] [address] | + + + | Home Phone [...] [place] | | | | | [address] | | + + + + + Care Team Providers + +------+ + | Care Dog Licenser Name | Role | Phone | + [...] PA | | | | | Floor [address] | | | | | | [address] | | | | | | Mailcode: L457 | | | | | | [facility] | | | | | | [place], [place] | | | | | | [address] | | | | | | [phone] | | | +--------+ + + + [...] | + +---------+ + + | SONIA KYERNESTO GORMAN | | | | + +---------+ + + documented in this encounter Visit Diagnoses Not on filedocumented in this encounter"
--- OUTSIDE RECORDS SUMMARY | ~2019-08-17 | XMS | Encounter Summary ---
Demographics + + + | Address | [address] | | | [place] [address] | + + + | Home Phone [...] [place] | | | | | [address] | | + + + + + Care Team Providers + +------+ + | Care National Sales Associate Name | Role | Phone | + +------+ + | Adilia Bob BLOWER ROOM ATTENDANT | PCP | | + +------+ + Encounter Details +--------+ + + + + | Date | Type | Department | Care Team | Description | +--------+ + + + + | 10/13/ | Microsoft Crm Developer | Orthopaedics at | Alton Hernandez MD | Osteomyelitis of | | 2012 | | [address] | | knee region (HCC) | | | | [address] | | (Primary Dx) | | | | Mailcode: [id number] | | | | | | [facility] | | | | | | [place], [place] | | | | | | [address] | | | | | | [phone] | | | +--------+ + + + [...] + +---------+ + + | [facility] DEPARTMENT OF | | | | | RADIOLOGY | | | | + +---------+ + + documented in this encounter Visit Diagnoses + + | Diagnosis | + + | Osteomyelitis of knee region (HCC) - Primary Unspecified osteomyelitis, lower leg | + + documented in this encounter"
--- OUTSIDE RECORDS SUMMARY | ~2019-08-17 | XMS | Encounter Summary ---
Demographics + + + | Address | [address] | | | [place] [address] | + + + | Home Phone [...] [place] | | | | | [address] | | + + + + + Care Team Providers + +------+ + | Care Art Display Maker Name | Role | Phone | [...] | | | | [address] | [address] | | | | | [address] [place] | [phone] | | | | | [place] | | | | | | [address] | | | | | | [phone] | | | +--------+ + + + [...]
--- OUTSIDE RECORDS SUMMARY | ~2019-08-17 | XMS | Encounter Summary ---
Demographics + + + | Address | [address] | | | [place] [address] | + + + | Home Phone [...] [place] | | | | | [address] | | + + + + + Care Team Providers + +------+ + | Care Milker Machine Name | Role | Phone | + +------+ + | No Pcp Per Patient | PCP | Unavailable | + +------+ + Encounter Details +--------+ + + + + | Date | Type | Department | Care Team | Description | +--------+ + + + + | 07/21/ | Bilingual Branch Manager | Orthopaedics at | Alton Hernandez MD | Leg pain (Primary | | 2011 | | [address] | | Dx) | | | | [address] | | | | | | Mailcode: [id number] | | | | | | [facility] | | | | | | [place], [place] | | | | | | [address] | | | | | | [phone] | | | +--------+ + + + [...]
--- OUTSIDE RECORDS SUMMARY | ~2019-08-17 | XMS | Encounter Summary ---
Demographics + + + | Address | [address] | | | [place] [address] | + + + | Home Phone [...] [place] | | | | | [address] | | + + + + + Care Team Providers + +------+ + | Care Bottom Presser Name | Role | Phone | + [...] | | | necrosis of | [address] | [place] | | | | | bone) ([facility]) | Rd | [address] | | | | | Septic | [place], [place] | [place], | | | | | 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[address] | [place] [address] | | | | | knee, left | | Phone: | | | | | ([facility]) | | [phone] | | | | | Procedures | | Fax: | | | | | CONSULT TO | | [phone] | | | | | INFECTIOUS | [...] use of antibiotics | | | | [place], [place] | | | | | | [address] | | | | | | [phone] | | | +--------+---------+ + + + [...] DISEASES CLINIC FOLLOW UP Primary Care Physician: [facility] [address] [place] [address], [address] [place] [address] Ms. Marc presents to Infectious Diseases Clinic [...] doing rodeo on her horse going around [place], and she was leaning out away from [employer]. Her legs spontaneously broke with pathological fracture. [...] amedullary canal. We then used our canal western tack assembly line worker to thoroughly washout the intramedullary canal as [...] She was seen in the ER in [place] and had a CT Thor ax that [...] an d follow-up planning. Brigid Hardy PA-C [facility] Department of Infectious Diseases Outpatient IV Antibiotic Therapy Clinic (OPAT) [phone] Pager ID: [phone] [facility] Mail Code L457 [place] [address] documented in this encounter Plan of Treatment [...]
--- OUTSIDE RECORDS SUMMARY | ~2019-08-17 | XMS | Encounter Summary ---
Demographics + + + | Address | [address] | | | [place] [address] | + + + | Home Phone [...] Author | [facility] | + + + | Organization | [facility] | + + + | Address | Unknown | + + + | Phone | Unavailable | + + + Support + + + + + | Name | Relationship | Address | Phone | + + + + + | Grisel Marc | ECON | [address] | | | | | [place] | | | | | [address] | | + + + + + Care Team Providers + +------+ + | Care Automotive Engineer Name | Role | Phone | [...] | | | | necrosis of | [facility] | [place] | | | | | bone) ([facility]) | Rd | [address] | | | | | Septic | [place], [place] | [place], | | | | | 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[address] | [place] [address] | | | | | knee, left | | Phone: | | | | | ([facility]) | | [phone] | | | | | Procedures | | Fax: | | | | | CONSULT TO | | [phone] | | | | | INFECTIOUS | [...] use of antibiotics | | | | [facility] [place] | | | | | | [address] | | | | | | [phone] | | | +--------+---------+ + + + [...] DISEASES CLINIC FOLLOW UP Primary Care Physician: [facility] [address] [place] [address], [address] [place] [address] Ms. Marc presents to Infectious Diseases Clinic regarding scheduled follow up. The patient was seen in conjunction with Dr. Alton Hernandez today. The following history was obtained prior to today's OPAT visit from my own review of the bethany perez's recent [facility] hospital admission, including but not limited [...] doing rodeo on her horse going around [place], and she was leaning out away from [employer]. Her legs spontaneously broke with pathological fracture. [...] intramedullary canal. We then used our canal commercial analyst to thoroughly washout the intramedullary canal as [...] She was seen in the ER in [place] and had a CT Thor ax that [...] care provider and surgeon. Brigid Hardy PA-C [facility] Department of Infectious Diseases Outpatient IV Antibiotic Therapy Clinic (OPAT) [phone] Pager ID: [phone] [facility] Mail Code L457 [place] [address] documented in this encounter Plan of Treatment Not on filedocumented as of this encounter Visit Diagnoses + + | Diagnosis | + + | Osteomyelitis of knee region (HCC) - Primary Unspecified osteomyelitis, lower leg | + + | Encounter for long-term (current) use of antibiotics | + + documented in this encounter
--- OUTSIDE RECORDS SUMMARY | ~2019-08-17 | XMS | Encounter Summary ---
Demographics + + + | Address | [address] | | | [place] [address] | + + + | Home Phone [...] + | Grisel Marc | ECON | [address] | | | | | [place] | | | | | [address] | | + + + + + Care Team Providers + +------+ + | Care Funeral Service Licensee Name | Role | Phone | + [...] | | dislocation, | [address] | | | | | right, | [address] | [place], | | | | | initial | [place], | [place] [address] | | | | | encounter | [place] | Phone: | | | | | Procedures | [address] | [phone] | | | | | PHYSICAL | Phone: | Fax: | | | | | THERAPY | [phone] | [phone] | | | | | REFERRAL | Fax: | | | | | | | [phone] | | +--------+--------+ + + + + [...] | | | | | | [place] [address] | [address] | | | | | | Phone: | Phone: | | | | | | [phone] | [phone] | | | | | | Fax: | Fax: | | | | | | [phone] | [phone] | +--------+--------+ + + + + Encounter [...] | | | [address] | [address] | dislocation, right, | | | | [address] | [phone] | initial encounter | | | | [place] | | | | | | [address] | | | | | | [phone] | | | +--------+---------+ + + + [...] + + + | [address] [place] [address] | [facility] | | [place] [address] | DEPARTMENT OF | | [phone] Name: SANDY MARC Phys: | RADIOLOGY | | CINTHYA NICOLAS : 1990 Sex: F | | | CSN: [id number] MR# [id number] Exam Date: | | | 12/06/2015 EXAM: [...] Transcribed Date/Time: | | | 12/06/2015 15:56 Animal Rides Manager: YORDY | | + + + + + | Procedure Note | + + | Interface, Radiology Results - 12/06/2015 4:01 PM PDT [address] | | [address] [place] [address] | | Name: SANDY MARC Phys: CINTHYA NICOLAS : 1990 Sex: F | | CSN: [id number] MR# [id number] Exam Date: 12/06/2015 EXAM:X-RAY KNEE 3 VIEWS [...] | | |Transcribed Date/Time: 12/06/2015 15:56 | |Animal Rides Manager: FLUENCY | | | | | [...]
--- OUTSIDE RECORDS SUMMARY | ~2019-08-17 | XMS | Encounter Summary ---
Demographics + + + | Address | [address] | | | [place] [address] | + + + | Home Phone [...] [place] | | | | | [address] | | + + + + + Care Team Providers + +------+ + | Care Instructor Looping Name | Role | Phone | + +------+ + | Adilia Bob PRODUCTION MACHINE OPERATOR | PCP | | + +------+ [...] | | | | | long-term | [place], [place] | Physician's | | | | | (current) | [address] | Pavilion | | | | | use of | | [place], [place] | | | | | antibiotics | | [address] | | | | | Procedures | | Phone: | | | | | VASC LAB | | [phone] | | | | | UPPER EXT | | Fax: | | | | | PSEUDOANEUR | | [phone] | | | | | COMP LEFT [...] | | | | necrosis of | [facility] | [place] | | | | | bone) ([facility]) | Rd | [address] | | | | | Septic | [place], [place] | [place], | | | | | 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[address] | [place] [address] | | | | | knee, left | | Phone: | | | | | ([facility]) | | [phone] | | | | | Procedures | | Fax: | | | | | CONSULT TO | | [phone] | | | | | INFECTIOUS | [...] Pavilion | | | | | | [place], [place] | | | | | | [address] | | | | | | [phone] | | | +--------+---------+ + + + [...] Care Physician: [facility] [address] , [address] [place] [address] Ms. Marc presents to Infectious Diseases Clinic [...] doing rodeo on her horse going around [place], and she was leaning out away from [employer]. Her legs spontaneously broke with pathological fracture. [...] placement of antibiotic beads 09/03/2012: HIRAM Silva [facility] Operative Findings: We began by performing a [...] medullary canal. We then used our canal fermentologist to thoroughly washout the intramedullary c anal [...] She was seen in the ER in [place] and had a CT Thor ax that [...] a nd follow-up planning. Brigid Hardy PA-C [facility] Department of Infectious Diseases Outpatient IV Antibiotic Therapy Clinic (OPAT) [phone] Pager ID: [phone] [facility] Mail Code P257 [place] [address] documented in this encounter Plan of Treatment [...] [place] | | | | | | [place] | | | | | | | [...]
--- OUTSIDE RECORDS SUMMARY | ~2019-08-17 | XMS | Encounter Summary ---
Demographics + + + | Address | [address] | | | [place] [address] | + + + | Home Phone [...] [place] | | | | | [address] | | + + + + + Care Team Providers + +------+ + | Care Environmental Compliance Specialist Name | Role | Phone | [...] | s of knee | Health | [facility] | | | | | region ([facility]) | Associates | [address] [place], | | | | | AVN | [address] | [place] | | | | | (avascular | [address] | [address] | | | | | necrosis of | [place], | | | | | | bone) ([facility]) | [place] [address] | | | | | | Pathologic | Phone: | | | | | | fracture of | [phone] | | | | | | tibia or | Fax: | | | | | | fibula | [phone] | | | | | | Septic | | | | | | | 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| | | | | | knee, left | | | | | | | ([facility]) | | | | | | | Procedures | | | | | | | REQUEST TO | | | | | | | SURGERY | | | | | | | DYNAMO TENDER | | | | | | | GA PARTIAL | | | | | | | REMOVAL OF | | | | | | | TIBIA GA | | | | | | | INSERTION | | | | | | | DRUG IMPLANT | | | | | | | DEVICE GA | | | | | | | KNEE | | | | | | | SCOPE,SHAVE | | | | | | | ARTICULAR | | | | | | | CART GA | | | | | | | [...] | | | | | | [place], [place] | | | | | | [address] | | | | | | [phone] | | | +--------+---------+ + + + [...] PA is seeing her in clinic today [facility]. She has been compliant with non-weightbearing [...] seconds capillary refill. Palpable dorsalis pedis and jewel bearing facer ior tibial pulses. X-RAYS: Reviewed x-rays with [...] extensiveness of her infection. DARRICK BUITRAGO MD [facility] [address] [place] [address] Mailcode: [id number] [place] [address] documented in this en counter Plan of Treatment Not on filedocumented as of this encounter Visit Diagnoses + + | Diagnosis | + + | Osteomyelitis of knee region (HCC) - Primary Unspecified osteomyelitis, lower leg | + + documented in this encounter
--- OUTSIDE RECORDS SUMMARY | ~2019-08-17 | XMS | Encounter Summary ---
Demographics + + + | Address | [address] | | | [place] [address] | + + + | Home Phone [...] + | Grisel Marc | ECON | [address] | | | | | [place] | | | | | [address] | | + + + + + Care Team Providers + +------+ + | Care Termination Clerk Name | Role | Phone | [...] | | | Orthopaedic Surgery | Blvd [place], [place] | chronicity (Primary | | | | [address] | [address] | Dx); Tears of | | | | [place], [place] | [phone] | meniscus and | | | | [address] | | anterior cruciate | | | | [phone] | | ligament of left | | [...] Marc is a 28 y.o. female from [place] who presents to the office today for [...] was referred fo r an MRI in [place] to evaluate this further. Her MRI description [...] MRI left knee from [facility] in [place] demonstrates Chronic ACL tear and medial join [...] tibial plateau fracture requiring multiple surgeries and long term care phlebotomist IV antibiotics. Gisselle connolly was doing well until recent hyperextension injury. We reviewed detail of MRI including ACL tear, medial meniscus tear and medial cartilage loss. Risks of ACL reconstruction include i nfection and potentially continued pain/worsening of medial compartment arthritis. I will re view case with Dr Saba. Can potentially refer to [facility] if she is interested in ACL recon. Follow up: w/ Jayant Blue PA-C [facility] Orthopaedic Physician Leather Grader [facility] [address] [place] [address] Office: [phone] documented in this e ncounter Plan of [...]
--- OUTSIDE RECORDS SUMMARY | ~2019-08-17 | XMS | Encounter Summary ---
Demographics + + + | Address | [address] | | | [place] [address] | + + + | Home Phone [...] [place] | | | | | [address] | | + + + + + Care Team Providers + +------+ + | Care Wheel Truing Machine Tender Name | Role | Phone [...] | | | | [address] | [place] [address] | | | | | Mailcode: [id number] | [phone] | | | | | [facility] | | | | | | [place], [place] | | | | | | [address] | | | | | | [phone] | | | +--------+ + + + [...]
--- OUTSIDE RECORDS SUMMARY | ~2019-08-17 | XMS | Encounter Summary ---
Demographics + + + | Address | [address] | | | [place] [address] | + + + | Home Phone [...] + | Grisel Marc | ECON | [address] | | | | | [place] | | | | | [address] | | + + + + + Care Team Providers + +------+ + | Care Ocean Export Account Manager Name | Role | Phone | [...] | | | Orthopaedic Surgery | [place], [place] | | | | | [address] | [address] | | | | | [place], [place] | [phone] | | | | | [address] | | | | | | [phone] | | | +--------+ + + + [...] [facility] | | [place] [address] | [phone] | | [facility] | Streets | [...] + + | [place] | [address] | [place] [address] | [phone] | | [facility] | Streets | | | + + + + + documented in this encounter Visit Diagnoses + + | Diagnosis | + + | Osteomyelitis of knee region (HCC) - Primary Unspecified osteomyelitis, lower leg | + + documented in this encounter"
--- OUTSIDE RECORDS SUMMARY | ~2019-08-17 | XMS | Encounter Summary ---
Demographics + + + | Address | [address] | | | [place] [address] | + + + | Home Phone [...] [place] | | | | | [address] | | + + + + + Care Team Providers + +------+ + | Care Echometer Engineer Name | Role | Phone | [...] | | | | necrosis of | [facility] | [place] | | | | | bone) ([facility]) | Rd | [address] | | | | | Septic | [place], [place] | [place], | | | | | 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[address] | [place] [address] | | | | | knee, left | | Phone: | | | | | ([facility]) | | [phone] | | | | | Procedures | | Fax: | | | | | CONSULT TO | | [phone] | | | | | INFECTIOUS | [...] use of antibiotics | | | | [facility] [place] | | | | | | [address] | | | | | | [phone] | | | +--------+---------+ + + + [...] Care Physician: [facility] [address] [place] [address], [address] [place] [address] Ms. Marc presents to [facility] regarding scheduled follow up. The patient was seen in conjunction with Dr. Alton Hernandez today. The following history was obtained prior to today's OPAT visit from my own review of the bethany perez's recent [facility] hospital admission, including but not limited [...] doing rodeo on her horse going around [employer], and she was leaning out away from [address]. Her legs spontaneously broke with pathological fracture. [...] placement of antibiotic beads 09/03/2012: HIRAM Silva [facility] Operative Findings: We began by performing [...] intramedullary canal. We then used our canal manager inspection to thoroughly washout the intramedullary canal as [...] She was seen in the ER in [place] and had a CT Thor ax that [...] care provider and surgeon. Brigid Hardy PA-C [facility] Department of Infectious Diseases Outpatient IV Antibiotic Therapy Clinic (OPAT) [phone] Pager ID: [phone] [facility] Mail Code L457 [place] [address] documented in this encounter Plan of Treatment Not on filedocumented as of this encounter Visit Diagnoses + + | Diagnosis | + + | Osteomyelitis of knee region (HCC) - Primary Unspecified osteomyelitis, lower leg | + + | Encounter for long-term (current) use of antibiotics | + + documented in this encounter
--- OUTSIDE RECORDS SUMMARY | ~2019-08-17 | XMS | Clinical Summary ---
Demographics + + + | Address | [address] | | | [place] [address] | + + + | Home Phone | | + + + | Preferred Language | Unknown | + + + | Marital Status | | + + + | Samaritan Affiliation | Unknown | + + + | Race | Unknown | + + + | Ethnic Group | Unknown | + + + Author + + + | Author | [facility] | | | and [place] | + + + | Organization | [facility] | | | [...] Team Providers + +------+ + | Care Target Setter Name | Role | Phone | [...] M?MRN: | | | | | | [id number] | | | [id number] | | | riteri | | | [...] | | | St. | | | [place] | | | y | | | [...] | | | St. | | | [place] | | | y H. | | [...] | | | St. | | | [place] | | | y H. | | [...] | | ER J, | | | LEATHER PATCHER | | | Nurse | | | [...] | [employer] | [facility] | [id number] | | [phone] | | Medica | [...] nayla | | | 2 (Home) | [address] | + +--------+ +--------+ + + Advance Directives + + + + + | Type | Date Recorded | Patient | Explanation | | | | Air Route Traffic Controller | | + + + + + | Power of | | | | | Inorganic Chemistry Professor | | | | + + + + + | Advance | 06/19/2019 2:16 | | | | Directive | PM | | | + + + + +
--- OUTSIDE RECORDS SUMMARY | ~2019-08-17 | XMS | Encounter Summary ---
Demographics + + + | Address | [address] | | | [place] [address] | + + + | Home Phone [...] + | Grisel Marc | ECON | [address] | | | | | [place] | | | | | [address] | | + + + + + Care Team Providers + +------+ + | Care Border Guard Name | Role | Phone | + [...] | | | [address] | [address] | | | | | [place] | [phone] | | | | | [address] | | | | | | [phone] | | | +--------+ + + + [...]
--- OUTSIDE RECORDS SUMMARY | ~2019-08-17 | XMS | Encounter Summary ---
Demographics + + + | Address | [address] | | | [place] [address] | + + + | Home Phone [...] [place] | | | | | [address] | | + + + + + Care Team Providers + +------+ + | Care Store Sales Consultant Name | Role | Phone | [...] | | | osteomyeliti | Street | [facility] | | | | | s, lower leg | [address] | [address] [place], | | | | | L knee | [place], | [place] | | | | | | [place] [address] | [address] | | | | | | Phone: | | | | | | | [phone] | | | | | | | Fax: | | | | | | | [phone] | | +--------+--------+ + + + + [...] | Osteomyelitis of | | | | [place], [place] | | knee region (HCC); | | | | [address] | | Septic 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| | | [phone] | | knee, left ([facility]) | +--------+---------+ + + [...] horseback riding. However in the last w [place] and a half she has developed some [...] seconds capillary refill. Palpable dorsalis pedis and ethylene plant helper ior tibial pulses. X-RAYS: Reviewed x-rays with [...] extensiveness of her infection. DARRICK BUITRAGO MD [facility] [address] [facility] Mailcode: [id number] [place] [address] documented in this en counter [...]
--- OUTSIDE RECORDS SUMMARY | ~2019-08-17 | XMS | Encounter Summary ---
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 Surgeries scheduled in the [facility]: registration is located on the 9th floor. Surgeries scheduled in [facility]: registration is located on the 6th floor. Surgeries scheduled in the [facility]: registration is located i n the [facility] on the first floor. For surgeries scheduled to take place at the [facility]: registration is l [...] you use specialized medical equipment at [facility], please check with your provider before [...] in conjunction with Dr. Jovany almanzar from [place]. Her HPI is copied from her previous [...] plateau fracture by Dr. Jerald Don in [place] on 12/10/11. Calcium phosphate cement was used [...]
--- OUTSIDE RECORDS SUMMARY | ~2019-08-17 | XMS | Encounter Summary ---
Demographics + + + | Address | [address] | | | [place] [address] | + + + | Home Phone [...] [place] | | | | | [address] | | + + + + + Care Team Providers + +------+ + | Care Kiln Car Unloader Name | Role | Phone | + [...]
--- OUTSIDE RECORDS SUMMARY | ~2019-08-17 | XMS | Encounter Summary ---
Demographics + + + | Address | [address] | | | [place] [address] | + + + | Home Phone [...] [place] | | | | | [address] | | + + + + + Care Team Providers + +------+ + | Care Dependency Counselor Name | Role | Phone | + [...] Pavilion | | | | | | [place], [place] | | | | | | [address] | | | | | | [phone] | | | +--------+ + + + [...]
--- OUTSIDE RECORDS SUMMARY | ~2019-08-17 | XMS | Encounter Summary ---
Demographics + + + | Address | [address] | | | [place] [address] | + + + | Home Phone [...] [place] | | | | | [address] | | + + + + + Care Team Providers + +------+ + | Care Recreation Coordinator Name | Role | Phone | [...]
--- OUTSIDE RECORDS SUMMARY | ~2019-08-17 | XMS | Encounter Summary ---
Demographics + + + | Address | [address] | | | [place] [address] | + + + | Home Phone [...] + | Grisel Marc | ECON | [address] | | | | | [place] | | | | | [address] | | + + + + + Care Team Providers + +------+ + | Care Collar Turner Operator Name | Role | Phone | [...] | | | | | Unspecified | [address] | [address] | | | | | tear of | [place], | [place] | | | | | unspecified | [place] | [place], [place] | | | | | meniscus, | [address] | [address] | | | | | current | Phone: | Phone: | | | | | injury, left | [phone] | [phone] | | | | | knee, | Fax: | Fax: | | | | | initial | [phone] | [phone] | | | | | encounter | [...] | | | | | | | IN [place] | | | | | | [...] [address] | | | | | [place], | [place], [place] | | | | | [place] [address] | [address] | | | | | [phone] | [phone] | | | | | | | [...] + + + | [address] | [facility] | | [place] [address] | DEPARTMENT OF | | [phone] Name: SANDY MARC Phys: | RADIOLOGY | | JACI LBUE : 1990 Sex: F CSN: | | | [id number] MR# [id number] Exam Date: 06/04/2019 | | | EXAM: [...] Transcribed | | | Date/Time: 06/04/2019 11:28 Wood Strip Block Floor Installer: FLUENCY | | + + + + + | Procedure Note | + + | Interface, Radiology Results - 06/04/2019 11:36 AM PDT [address] | | [place] [address] | | Name: SANDY MARC Phys: JACI BLUE : 1990 Sex: F | | CSN: [id number] MR# [id number] Exam Date: 06/04/2019 EXAM:LEFT LOWER EXTREMITY | [...] | | |Transcribed Date/Time: 06/04/2019 11:28 | |Wood Strip Block Floor Installer: FLUENCY | | | | | [...]
--- OUTSIDE RECORDS SUMMARY | ~2019-08-17 | XMS | Encounter Summary ---
Demographics + + + | Address | [address] | | | [place] [address] | + + + | Home Phone [...] [place] | | | | | [address] | | + + + + + Care Team Providers + +------+ + | Care Collection Coordinator Name | Role | Phone | [...] | | | | | | [place], | | | | | | [place] [address] | | | | | | [phone] | | | +--------+ + + + [...]
--- OUTSIDE RECORDS SUMMARY | ~2019-08-17 | XMS | Encounter Summary ---
Demographics + + + | Address | [address] | | | [place] [address] | + + + | Home Phone [...] [place] | | | | | [address] | | + + + + + Care Team Providers + +------+ + | Care Agency Service Coordinator Name | Role | Phone | [...] Pavilion | | | | | | [place], [place] | | | | | | [address] | | | | | | [phone] | | | +--------+ + + + [...]
--- OUTSIDE RECORDS SUMMARY | ~2019-08-17 | XMS | Encounter Summary ---
Demographics + + + | Address | [address] | | | [place] [address] | + + + | Home Phone [...] [place] | | | | | [address] | | + + + + + Care Team Providers + +------+ + | Care Can Cleaner Name | Role | Phone | + [...] + + + + | 09/24/ | Paper Products Machine Operator | Infectious | Brigid Hardy | | | 2012 | | Diseases at [facility] | [place] | | | | | Floor [address] | | | | | | [address] | | | | | | Mailcode: [id number] | | | | | | [facility] | | | | | | [place], [place] | | | | | | [address] | | | | | | [phone] | | | +--------+ + + + [...]
--- OUTSIDE RECORDS SUMMARY | ~2019-08-17 | XMS | Encounter Summary ---
Demographics + + + | Address | [address] | | | [place] [address] | + + + | Home Phone [...] [place] | | | | | [address] | | + + + + + Care Team Providers + +------+ + | Care Cops Name | Role | Phone | + [...]
--- OUTSIDE RECORDS SUMMARY | ~2019-08-17 | XMS | Encounter Summary ---
Demographics + + + | Address | [address] | | | [place] [address] | + + + | Home Phone | | + + + | Preferred Language | Unknown | + + + | Marital Status | | + + + | Scientologist Affiliation | Unknown | + + + | Race | Unknown | + + + | Ethnic Group | Unknown | + + + Author + + + | Author | [facility] | | | and [place] | + + + | Organization | [facility] | | | and [...] Providers + +------+ + | Care Business Office Coordinator Name | Role | Phone | [...] Provider Unknown | | | | | [place], [place] | [phone] | | | | | [address] | | | | | | [phone] | | | +--------+ + + + [...]
--- OUTSIDE RECORDS SUMMARY | ~2019-08-17 | XMS | Encounter Summary ---
Demographics + + + | Address | [address] | | | [place] [address] | + + + | Home Phone [...] [place] | | | | | [address] | | + + + + + Care Team Providers + +------+ + | Care Labor Expediter Name | Role | Phone | + [...] + + | 09/02/ | Hospital | [facility] [address] | Alton Hernandez MD | | | 2012 - | Encounter | [address] | | | | | | [place] | | | | 09/05/ | | [place] [address] | | | | 2012 | | [phone] | | | +--------+ + + + [...] Angel MD - 09/10/2012 8:12 AM PST [facility] DEPART[facility] OF ORTHOPAEDICS & REHABILITATION INPATIENT HOSPITAL DISCHARGE SUMMARY & INTERDISCIPLINARY INSTRUCTIONS Patient: Sandy Marc CSN: [id number] Admission Date: 09/02/2012 Discharge Date: 09/05/2012 Attending Physician: Alton Hernandez MD PCP: SAEED Presley Service: [facility] Orthopaedics & Rehabilitation Diagnoses Principal [...] for > 5 years. , Historical Med [facility] Orthopaedic Service Pain Policy At [...] our pleasure. David Peter MD Pager # [phone] documented in this enc ounter Discharge Instructions Instructions Sally Gupta RN - 09/04/2012Formatting of this note might be different f rom the original. ADDITIONAL INFORMATION: [facility] will provide IV antibiotics and education. They can be r eached at: [phone]. You will need to go to [facility] ([phone] - Unit C) for PICC line dressin [...] Arthritis: After Your Visit", log into your Amvona account at [email or web address]. You can enter C265 in the Mir[employer]" search box. Not on Group Phoebe Ingenicat? Review the MyChart section of your After Visit Summary for directions on ho w to sign up. [phone] [employer]. Care instructions adapted under license by [facility] [employer] [facility] [place]. This care instruction is for use with your licensed healthcar e professional. If you have questions about a medical condition or this instruction, always ask your healthcare professional. [employer] disclaims any warranty or liabili ty for your use of this information. Content Version: 9.5.55072; Last Revised: July 18, 2011 Patient Education [...] provider under separate cover. Anticipated OPAT Setting: [facility] [phone] f: [phone] ID/OPAT Clinic follow-up: OPAT clinic visit in 1-2 weeks after discharge in conjunction wit h [facility] Orthopedic Service. We will call to schedule this appointment after patient is disch arged. Interdisciplinary Communication: Please notify OPAT clinic 24-48 hours prior to discharge b y calling [phone] (We need anticipated discharge date & where patient is going; i.e. name, ph one, and fax for home infusion vendor, [place] [facility] facility, or daily outpatient infusio center providing outpatient antibiotic therapy services.) [facility] Department of Infectious Disease Outpatient IV Antibiotic Therapy Clinic (OPAT) Pager ID: [phone] [facility]. Mail Code L457 [place] [address] OPAT teaching note: Education and training for patient self management with a PICC line and extended use IV antibiotics I received an OPAT Clinic Consult from the Inpatient Infectious Diseases Service. I have re viewed the records and introduced myself to Sandy Marc today. I explained that I am from the OPAT (Outpatient Parenteral Antibiotic Treatment) team, an out-patient branch of [facility] Infectious Diseases team that has been guiding [...] symptoms immediately, and if unable to contact [facility] or the infus ion service provider, then to present to the nearest ED. I verified that the patient has a primary care provider, and that they will follow-up with them following this hospitalization in regards to other medical issues such as chronic pain, diabetes, or high blood pressure for which we do not provide any care. I provided the patient with the [facility] welcome letter that reiterates the above teaching. I spent 45 minutes in education and training in patient self management for IV antibiotic a nd PICC line use with greater than 50% spent on counseling and/or coordination of care. [facility] DEPARTMENT: IDC INFECT DIS CONSULT - [id number] Place of Service: Inpatient Date of Service: 09/04/2012 CSN: [id number] Suggested Modifier: OPATC David Angel MD - [...] made with LENCHO Peter MD Pager # [phone] David Angel MD - 09/03/2012 7:53 AM [...] 6 weeks David Peter MD Pager # [phone] Malathi Mccauley MD - 09/03/2012 1:27 AM [...] See brief op note MALATHI BRYANT MD [facility] [place] Department of Orthopaedics & Rehabilitation [address] [place] [address] Mail Code: OP31 [facility] [address] documented in this e ncounter Plan of [...] + + + | IP CONSULT TO [facility] | Routin | 09/03/2012 | [...] | + + + + + | [facility] | [address] | [place] [address] | | | SERVICES, ELLIE | JOY [...] [facility] | [address] | [place] [address] | | | SERVICES, CORE | PARK [...] | + + + + + | [facility] | [address] | [place] [address] | | | SERVICES, [facility] | [address] | | | + + + + + OPERATION RECORD (09/03/2012 2:02 PM PST) + + | Transcriptions | + + | David Peter MD - 09/03/2012 12:20 PM PST Date: 09/02/2012ttending | | Surgeon: Alton Hernandez M.D.Supervisor Fur Floor Worker(s): David | | TAQUERIA Peterreoperative Diagnosis(es):1. Left [...] by | | Dr. Jerald Don in [place] on December 10, 2011. At that time, [...] the reamers. We then used our canal coal inspector | | to thoroughly wash out the [...] Thiago, M.Engr.General Orthopaedics, Trauma JUAN C / [id number] / [id number] / [id number] /D: | | 09/02/2012T: 09/03/2012 | | | | | + + X-RAY PORTABLE CHEST 1 VIEW (09/03/2012 9:51 AM PST) + + + + + + | Component | Value | Ref Range | Performed | Pathologist | | | | | At | Signature | + + + + + + | X-RAY | STUDY: RI CHEST 1 VIEW | | | | [...] | | | | | | Radiologists: iTny | | | | | | Thiago [...] (Unit/Room #): | | | 9k Diagnosis: [id number] Osteomyelitis of knee region [id number] AVN | | | (avascular necrosis of bone) 556504 Pathologic fracture of tibia or | | | fibula 407820 Septic arthritis of knee, left Indications: (Select [...] Lot # (or | | | Sticker): [id number] INSERTION SITE: - Basilic Left Local | [...] RN Assisted by: Adriana | | | Niikta | | + + + + + | Procedure Note | + + | Adriana Torrez RN - 09/03/2012 9:14 AM PST Formatting of this note might be | | different from the original.PICC INSERTION DOCUMENTATION NOTEToday | | | | s Date: 09/03/2012Start Time: 0900Patient Location (Unit/Room #): 9kDiagnosis: 307179 | | Osteomyelitis of knee [id number] AVN (avascular necrosis of bone)416876 Pathologic | | fracture of tibia or [id number] Septic arthritis of knee, leftIndications: (Select all [...] CATHETERProduct | | Name: RicardoConstruction: Single4 Fr60cm Hhsp5pl TrimmedLot # (or Sticker): | | [id number] SITE: - BasilicLeftLocal anesthetic used: lidocaineSedation used: [...] |8cm Trimmed | |Lot # (or Sticker): [id number] | | | |INSERTION SITE: - Basilic [...] | + + + + + | [facility] | [address] | [place] [address] | | | SERVICES, CORE | JOY [...] | + + + + + | [facility] | [address] | [place] [address] | | | SERVICES, CORE | JOY [...] | | + +---------+ + + | [facility] DEPARTMENT OF | | | [...] | | + +---------+ + + | [facility] DEPARTMENT OF | | | [...] | | | Final SMEAR:No | | [place] | | | | fungal elements seen [...] + | [facility] - | [address] | [place] [address] | | | [place] | | | [...] | | Final SMEAR:AFB not | | [facility]NOTE 3[facility] | | | | detected source: 10) [...] + | [facility] - | [address] | [place] [address] | | | [place] | | | [...] + | [facility] - | [address] | [place] [address] | | | [place] | | | [...] | | Final SMEAR:AFB not | | [place] | | | | detected source: left [...] + | [facility] - | [address] | [place] [address] | | | [place] | | | [...] | | | Final SMEAR:No | | [place] | | | | fungal elements seen [...] + | [facility] - | [address] | [place] [address] | | | [place] | | | [...] + + + + + | [facility] - | [address] | [place] [address] | | | [place] | | | | + + + [...] | | RESULT | Tissue | | [facility] - | | | | Final SMEAR:No | | [place] | | | | fungal elements seen [...] + + + + + | [facility] - | [address] | [place] [address] | | | [place] | | | [...] + | [facility] - | [address] | [place] [address] | | | [place] | | | | + + + [...] + | [facility] - | [address] | [place] [address] | | | [facility] [...] | | | Final SMEAR:No | | [place] | | | | fungal elements seen [...] + | [facility] - | [address] | [place] [address] | | | [place] | | | [...] + | [facility] - | [address] | [place] [address] | | | [facility] [...] | | Final GRAM STAIN:No | | [place] | | | | squamous epithelial | [...] + + + + + | [facility] - | [address] | [place] [address] | | | [place] | | | | + + + [...] | | | Final SMEAR:No | | [place] | | | | fungal elements seen [...] + | [facility] - | [address] | [place] [address] | | | [place] | | | | + + + [...] | | Final SMEAR:AFB not | | [place] | | | | detected source: left [...] + + + + + | [facility] - | [address] | [place] [address] | | | [place] | | | [...] + + | Performing | Address | City/State/[facility] | Phone Number | | Organization | | | | + + + + + | [facility] - | [address] | [place] [address] | | | [place] | | | | + + + [...] | | RESULT | Tissue | | [facility] - | | | | Final SMEAR:No | | [place] | | | | fungal elements seen [...] + | [facility] - | [address] | [place] [address] | | | [place] | | | | + + + [...] | | Final SMEAR:AFB not | | [place] | | | | detected source: left [...] + + + + + | [facility] - | [address] | [place] [address] | | | [place] | | | [...] | + + + + + | [facility] - | [address] | [place] [address] | | | [place] | | | [...] + | [facility] - | [address] | [place] [address] | | | [facility] [...] | | Final SMEAR:AFB not | | [place] | | | | detected source: left [...] + | [facility] - | [address] | [place] [address] | | | [place] | | | [...] + | [facility] - | [address] | [place] [address] | | | [facility] [...] + | [facility] - | [address] | [place] [address] | | | [place] | | | | + + + [...] | | Final SMEAR:AFB not | | [place] | | | | detected source: 3) [...] + | [facility] - | [address] | [place] [address] | | | [place] | | | | + + + [...] + | [facility] - | [address] | [place] [address] | | | [facility] [...] + | [facility] - | [address] | [place] [address] | | | [place] | | | | + + + [...] + | [facility] - | [address] | [place] [address] | | | [place] | | | | + + + [...] + + + + + | [facility] - | [address] | [place] [address] | | | [place] | | | | + + + [...] | | RESULT | Tissue | | [facility] - | | | | Final SMEAR:No | | [place] | | | | fungal elements seen [...] + + + + + | [facility] - | [address] | [place] [address] | | | [place] | | | [...] | | Final SMEAR:AFB not | | [facility]NOTE 3] | | | | detected source: left [...] + | [facility] - | [address] | [place] [address] | | | [place] | | | [...] + | [facility] - | [address] | [place] [address] | | | [place] | | | | + + + [...] | | | Final CULTURE | | [place] | | | | RESULT:No growth | [...] + | [facility] - | [address] | [place] [address] | | | [place] | | | | + + + [...] | + + + + + | [facility] | [address] | [place] [address] | | | PATHOLOGY | [address] [...]
--- OUTSIDE RECORDS SUMMARY | ~2019-08-17 | XMS | Encounter Summary ---
Demographics + + + | Address | [address] | | | [place] [address] | + + + | Home Phone [...] + | Grisel Marc | ECON | [address] | | | | | [place] | | | | | [address] | | + + + + + Care Team Providers + +------+ + | Care Electric Motors Salesperson Name | Role | Phone | [...] | | | | | right | [address] | NW | | | | | Procedures | [place], | [place] | | | | | MRI KNEE RT | [place] | [address] | | | | | [place] CONT [place] | [address] | Phone: | | | | | MRI LOWER | Phone: | [phone] | | | | | EXTREM JT, | [phone] | Fax: | | | | | W/O CONTRAST | Fax: | [phone] | | | | | | [phone] | | +--------+--------+ + + + + [...] knee | [address] | [address] | | | | | | | [address] THE | | | | | | [place], | [place] | | | | | | [place] [address] | [address] | | | | | | Phone: | Phone: | | | | | | [phone] | [phone] | | | | | | Fax: | Fax: | | | | | | [phone] | [phone] | +--------+--------+ + + + + Encounter [...] | | [address] | [address] | | | | | [address] | [phone] | | | | | [place], [place] | | | | | | [address] | | | | | | [phone] | | | +--------+---------+ + + + [...]
--- OUTSIDE RECORDS SUMMARY | ~2019-08-17 | XMS | Encounter Summary ---
Demographics + + + | Address | [address] | | | [place] [address] | + + + | Home Phone [...] + + + + + | Grisel aMrc | ECON | [address] | | | | | [place] | | | | | [address] | | + + + + + Care Team Providers + +------+ + | Care Decision Support Analyst Name | Role | Phone [...] Pavilion | | | | | | [place], [place] | | | | | | [address] | | | | | | [phone] | | | +--------+ + + + [...]
--- OUTSIDE RECORDS SUMMARY | ~2019-08-17 | XMS | Encounter Summary ---
Demographics + + + | Address | [address] | | | [place] [address] | + + + | Home Phone [...] [place] | | | | | [address] | | + + + + + Care Team Providers + +------+ + | Care Armature Winder Repairer Name | Role | Phone | [...] | | | synovectomy | Street | [facility] | | | | | | [address] | Rd [place], | | | | | | [place], | [place] | | | | | | [place] [address] | [address] | | | | | | Phone: | | | | | | | [phone] | | | | | | | Fax: | | | | | | | [phone] | | +--------+--------+ + + + + [...] [place] | | | | | | [place], [place] | | | | | | [address] | | | | | | [phone] | | | +--------+---------+ + + + [...] joint ap pointment with Dr. Peck from [place] was scheduled. Fortunately the knee stopped hurting [...] seconds capillary refill. Palpable dorsalis pedis and vp & general counsel ior tibial pulses. X-RAYS: Reviewed x-rays with [...] today for additional details. DARRICK BUITRAGO MD [facility] [address] [place] [address] Mailcode: [id number] [place] [address] documented in this en counter Plan of Treatment Not on filedocumented as of this encounter Visit Diagnoses + + | Diagnosis | + + | Osteomyelitis of knee region (HCC) - Primary Unspecified osteomyelitis, lower leg | + + documented in this encounter
--- OUTSIDE RECORDS SUMMARY | ~2019-08-17 | XMS | Encounter Summary ---
Demographics + + + | Address | [address] | | | [place] [address] | + + + | Home Phone [...] [place] | | | | | [address] | | + + + + + Care Team Providers + +------+ + | Care Mixing Plant Dumper Name | Role | Phone | + [...] | | | | | | [place], | | | | | | [place] [address] | | | | | | [phone] | | | +--------+ + + + [...] PAIZuthor: | | | | | | Jasno Nolasco M.D. I | | | | [...]
--- OUTSIDE RECORDS SUMMARY | ~2019-08-17 | XMS | Encounter Summary ---
Demographics + + + | Address | [address] | | | [place] [address] | + + + | Home Phone [...] [place] | | | | | [address] | | + + + + + Care Team Providers + +------+ + | Care Resident Program Specialist Name | Role | Phone | + +------+ + | Adilia Bob CUSTODY OFFICER | PCP | | + +------+ [...] | | | | | long-term | [place], [place] | Physician's | | | | | (current) | [address] | Pavilion | | | | | use of | | [place], [place] | | | | | antibiotics | | [address] | | | | | Procedures | | Phone: | | | | | VASC LAB | | [phone] | | | | | UPPER EXT | | Fax: | | | | | PSEUDOANEUR | | [phone] | | | | | COMP LEFT [...] [place] | | | | | bone) ([facility]) | Rd | [address] | | | | | Septic | [place], [place] | [place], | | | | | 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[address] | [place] [address] | | | | | knee, left | | Phone: | | | | | ([facility]) | | [phone] | | | | | Procedures | | Fax: | | | | | CONSULT TO | | [phone] | | | | | INFECTIOUS | [...] Pavilion | | | | | | [place], [place] | | | | | | [address] | | | | | | [phone] | | | +--------+---------+ + + + [...] Physician: [facility] [address] , [address] [place] [address] Ms. Marc presents to Infectious Diseases Clinic [...] doing rodeo on her horse going around [employer], and she was leaning out away from [employer]. Her legs spontaneously broke with pathological fracture. [...] placement of antibiotic beads 09/03/2012: HIRAM Silva [facility] Operative Findings: We began by performing [...] medullary canal. We then used our canal slipman to thoroughly washout the intramedullary c anal [...] She was seen in the ER in [place] and had a CT Thor ax that [...] a nd follow-up planning. Brigid Hardy PA-C [facility] Department of Infectious Diseases Outpatient IV Antibiotic Therapy Clinic (OPAT) [phone] Pager ID: [phone] [facility] Mail Code F257 [place] [address] documented in this encounter Plan of Treatment [...] [place] | | | | | | [place] | | | | | | | [...]
--- OUTSIDE RECORDS SUMMARY | ~2019-08-17 | XMS | Encounter Summary ---
Demographics + + + | Address | [address] | | | [place] [address] | + + + | Home Phone [...] + | Grisel Marc | ECON | [address] | | | | | [place] | | | | | [address] | | + + + + + Care Team Providers + +------+ + | Care Set Up And Charger Name | Role | Phone | + [...] | | | | [place] | [address] | | | | | [place] [place] | [phone] | | | | | [place] | | | | | | [address] | | | | | | [phone] | | | +--------+ + + + [...]
--- OUTSIDE RECORDS SUMMARY | ~2019-08-17 | XMS | Encounter Summary ---
Demographics + + + | Address | [address] | | | [place] [address] | + + + | Home Phone [...] [place] | | | | | [address] | | + + + + + Care Team Providers + +------+ + | Care Vascular Ultrasound Technician Name | Role | Phone | [...] Pavilion | | | | | | [place], [place] | | | | | | [address] | | | | | | [phone] | | | +--------+ + + + [...]
--- OUTSIDE RECORDS SUMMARY | ~2019-08-17 | XMS | Encounter Summary ---
Demographics + + + | Address | [address] | | | [place] [address] | + + + | Home Phone [...] Author + + + | Author | [facility] | + + + | Organization | [facility] | + + + | Address | Unknown | + + + | Phone | Unavailable | + + + Support + + + + + | Name | Relationship | Address | Phone | + + + + + | Grisel Marc | ECON | [address] | | | | | [place] | | | | | [address] | | + + + + + Care Team Providers + +------+ + | Care Dietary Services Director Name | Role | Phone | [...] + + + + | 09/04/ | Shank Stitcher | Infectious | Brigid Hardy | | | 2012 | | Diseases at [facility] [address] | [place] | | | | | Floor [address] | | | | | | [address] | | | | | | Mailcode: L457 | | | | | | [facility] | | | | | | [place], [place] | | | | | | [address] | | | | | | [phone] | | | +--------+ + + + [...]
--- OUTSIDE RECORDS SUMMARY | ~2019-08-17 | XMS | Encounter Summary ---
Demographics + + + | Address | [address] | | | [place] [address] | + + + | Home Phone [...] [place] | | | | | [address] | | + + + + + Care Team Providers + +------+ + | Care Hospice/Home Health Aide Name | Role | Phone | [...] | | | [address] | [place] [address] | | | | | Mailcode: L457 | [phone] | | | | | [facility] | | | | | | [place], [place] | | | | | | [address] | | | | | | [phone] | | | +--------+ + + + [...]
--- OUTSIDE RECORDS SUMMARY | ~2019-08-17 | XMS | Encounter Summary ---
Demographics + + + | Address | [address] | | | [place] [address] | + + + | Home Phone [...] [place] | | | | | [address] | | + + + + + Care Team Providers + +------+ + | Care Enlisted Aircrew/Aerial Observer/Gunner Name | Role | Phone | + [...] Pavilion | | | | | | [place], [place] | | | | | | [address] | | | | | | [phone] | | | +--------+ + + + [...]
--- OUTSIDE RECORDS SUMMARY | ~2019-08-17 | XMS | Encounter Summary ---
Demographics + + + | Address | [address] | | | [place] [address] | + + + | Home Phone [...] [place] | | | | | [address] | | + + + + + Care Team Providers + +------+ + | Care Quarry Supervisor Open Pit Name | Role | Phone | + +------+ + | No Pcp Per Patient | PCP | Unavailable | + +------+ + Encounter Details +--------+ + + + + | Date | Type | Department | Care Team | Description | +--------+ + + + + | 07/21/ | Yardage Tufting Machine Operator | Orthopaedics at | Alton Hernandez MD | Leg pain (Primary | | 2011 | | [address] [address] | | Dx) | | | | [address] | | | | | | Mailcode: [id number] | | | | | | [facility] | | | | | | [place], [place] | | | | | | [address] | | | | | | [phone] | | | +--------+ + + + [...]
--- OUTSIDE RECORDS SUMMARY | ~2019-08-17 | XMS | Encounter Summary ---
Demographics + + + | Address | [address] | | | [place] [address] | + + + | Home Phone [...] + | Grisel Marc | ECON | [address] | | | | | [place] | | | | | [address] | | + + + + + Care Team Providers + +------+ + | Care Pig Farmer Name | Role | Phone | + [...] | | | | [place] | [address] | | | | | [place] [place] | [phone] | | | | | [place] | | | | | | [address] | | | | | | [phone] | | | +--------+ + + + [...]
--- OUTSIDE RECORDS SUMMARY | ~2019-08-17 | XMS | Encounter Summary ---
Demographics + + + | Address | [address] | | | [place] [address] | + + + | Home Phone [...] [place] | | | | | [address] | | + + + + + Care Team Providers + +------+ + | Care Residential Treatment Specialist Name | Role | Phone | [...] [address] | | | | | | [place], [place] | | | | | | [address] | | | | | | [phone] | | | +--------+ + + + [...] | | e | of knee, left ([facility]) | | + +------+--------+ + + | SYNOVIAL FLUID, | Lab | Routin | Septic arthritis | Ordered: 02/12/2013 | | CRYSTALS | | e | of knee, left ([facility]) | | + +------+--------+ + [...]
--- OUTSIDE RECORDS SUMMARY | ~2019-08-17 | XMS | Encounter Summary ---
Demographics + + + | Address | [address] | | | [place] [address] | + + + | Home Phone [...] [place] | | | | | [address] | | + + + + + Care Team Providers + +------+ + | Care Precision Machine Operator Name | Role | Phone [...] + + + + | 09/04/ | Customer Service Leader | Infectious | Brigid Hardy | | | 2012 | | [facility] at [facility] | [place] | | | | | Floor [address] | | | | | | [address] | | | | | | Mailcode: [id number] | | | | | | [facility] | | | | | | [place], [place] | | | | | | [address] | | | | | | [phone] | | | +--------+ + + + [...]
--- OUTSIDE RECORDS SUMMARY | ~2019-08-17 | XMS | Encounter Summary ---
Demographics + + + | Address | [address] | | | [place] [address] | + + + | Home Phone [...] [place] | | | | | [address] | | + + + + + Care Team Providers + +------+ + | Care Lumber Press Operator Name | Role | Phone | + +------+ + | Adilia Bob TOOL CRIB ATTENDANT | PCP | | + +------+ + Encounter Details +--------+ + + + + | Date | Type | Department | Care Team | Description | +--------+ + + + + | 12/08/ | Computer Programming Manager | Infectious | Lavinia Peck, | Osteomyelitis of | | 2013 | | [facility] at [facility] | MD [address] | knee region (HCC) | | | | Floor [address] | (Primary Dx) | | | | [address] | [place] [address] | | | | | Mailcode: [id number] | [phone] | | | | | [facility] | | | | | | [place], [place] | | | | | | [address] | | | | | | [phone] | | | +--------+ + + + [...]
--- OUTSIDE RECORDS SUMMARY | ~2019-08-17 | XMS | Encounter Summary ---
Demographics + + + | Address | [address] | | | [place] [address] | + + + | Home Phone [...] + | Grisel Marc | ECON | [address] | | | | | [place] | | | | | [address] | | + + + + + Care Team Providers + +------+ + | Care Yarn Skeins Examiner Name | Role | Phone | [...] | | [address] | [address] | | | | | [address] | [phone] | | | | | [place], [place] | | | | | | [address] | | | | | | [phone] | | | +--------+---------+ + + + [...] She had been followed by ID at [facility] also. She has had chronic symptoms [...] She should keep it strong, use her general surgery physician assistant brace as tolerated. Of course she knows [...]
--- OUTSIDE RECORDS SUMMARY | ~2019-08-17 | XMS | Encounter Summary ---
Demographics + + + | Address | [address] | | | [place] [address] | + + + | Home Phone [...] [place] | | | | | [address] | | + + + + + Care Team Providers + +------+ + | Care Stock Patch Sawyer Name | Role | Phone | + [...] [address] | | | | | | [place], [place] | | | | | | [address] | | | | | | [phone] | | | +--------+ + + + [...]
--- OUTSIDE RECORDS SUMMARY | ~2019-08-17 | XMS | Clinical Summary ---
Demographics + + + | Address | [address] | | | [place] [address] | + + + | Home Phone | | + + + | Preferred Language | Unknown | + + + | Marital Status | Single | + + + | Yarsani Affiliation | Unknown | + + + | Race | Unknown | + + + | Ethnic Group | Unknown | + + + Author + + + | Author | [facility] (Historical as of | | | 03-27-19) | + + + | Organization | [facility] (Historical as of | | | 03-27-19) [...] Team Providers + +------+ + | Care Wood Experimental Mechanic Name | Role | Phone | [...] + | Maternal Aunt | | | [place] | | | | (Age | | [...] +------+-------+ + | MEDICAID | POER | [id number] | | | [address] | | | N | | | | [place] | | | [place] | | | | [address] | | | HAND CIGAR MAKING SUPERVISOR | | | | | + +--------+ [...] | nayla | | | [address]22 | [address] | + +--------+ +--------+ + +
--- OUTSIDE RECORDS SUMMARY | ~2019-08-17 | XMS | Encounter Summary ---
Demographics + + + | Address | [address] | | | [place] [address] | + + + | Home Phone [...] [place] | | | | | [address] | | + + + + + Care Team Providers + +------+ + | Care Certified Medical Coding Specialist Name | Role | Phone | [...] | | | | | | [place], | | | | | | [place] [address] | | | | | | [phone] | | | +--------+ + + + [...]
--- OUTSIDE RECORDS SUMMARY | ~2019-08-17 | XMS | Encounter Summary ---
Demographics + + + | Address | [address] | | | [place] [address] | + + + | Home Phone [...] [place] | | | | | [address] | | + + + + + Care Team Providers + +------+ + | Care Posting Machine Operator Name | Role | Phone | + +------+ + | Adilia Bob DOUGH RAISER | PCP | | + +------+ + [...] | | | | | Procedures | [place], [place] | [address] | | | | | MRI KNEE | [address] | [place] | | | | | LT WWO CONT | Phone: | Research | | | | | | [phone] | [place] | | | | | | Fax: | [place], [place] | | | | | | [phone] | [address] | | | | | | | Phone: | | | | | | | [phone] | | | | | | | Fax: | | | | | | | [phone] | +--------+--------+ + + + + Encounter Details +--------+ + + + + | Date | Type | Department | Care Team | Description | +--------+ + + + + | 08/24/ | Hospital | Diagnostic Imaging | | | | 2012 | Encounter | Services at [facility] | | | | | | [address] | | | | | | Ana Rodrigues Mailcode: | | | | | | [address] | | | | | | [facility] | | | | | | [place], [place] | | | | | | [address] | | | | | | [phone] | | | +--------+ + + + [...] subchondral | | | | | | [id number] hyperintensity | | | | | | [...] | | + +---------+ + + | [facility] DEPARTMENT OF | | | | | RADIOLOGY | | | | + +---------+ + + documented in this encounter Visit Diagnoses + + | Diagnosis | + + | Osteomyelitis of knee region (HCC) Unspecified osteomyelitis, lower leg | + + documented in this encounter"
--- OUTSIDE RECORDS SUMMARY | ~2019-08-17 | XMS | Encounter Summary ---
Demographics + + + | Address | [address] | | | [place] [address] | + + + | Home Phone [...] [place] | | | | | [address] | | + + + + + Care Team Providers + +------+ + | Care Oil Agent Name | Role | Phone | + +------+ + | Adilia Bob CURING OVEN TENDER | PCP | | + +------+ + Encounter Details +--------+ + + + + | Date | Type | Department | Care Team | Description | +--------+ + + + + | 10/16/ | Substitute Bus Driver | Infectious | Brigid Hardy | Osteomyelitis of | | 2013 | | [facility] | [place] | knee region (HCC) | | | | Floor [address] | | (Primary Dx) | | | | [address] | | | | | | Mailcode: L457 | | | | | | [facility] | | | | | | [place], [place] | | | | | | [address] | | | | | | [phone] | | | +--------+ + + + [...]
--- OUTSIDE RECORDS SUMMARY | ~2019-08-17 | XMS | Encounter Summary ---
Demographics + + + | Address | [address] | | | [place] [address] | + + + | Home Phone [...] [place] | | | | | [address] | | + + + + + Care Team Providers + +------+ + | Care Armament Installer Name | Role | Phone | [...] | | | synovectomy | Street | [facility] | | | | | | [address] | Rd [place], | | | | | | [place], | [place] | | | | | | [place] [address] | [address] | | | | | | Phone: | | | | | | | [phone] | | | | | | | Fax: | | | | | | | [phone] | | +--------+--------+ + + + + [...] Willis | | | | | | [place], [place] | | | | | | [address] | | | | | | [phone] | | | +--------+---------+ + + + [...] contrast or a knee aspi ration in [facility] but she elcted to come here for the aspiration and so this joint ap pointment with Dr. Peck from [place] was scheduled. Fortunately the knee stopped hurting [...] seconds capillary refill. Palpable dorsalis pedis and legal secretary ior tibial pulses. X-RAYS: Reviewed x-rays with [...] today for additional details. DARRICK BUITRAGO MD [facility] [address] [place] [address] Mailcode: [id number] [place] [address] documented in this en counter Plan of Treatment Not on filedocumented as of this encounter Visit Diagnoses + + | Diagnosis | + + | Osteomyelitis of knee region (HCC) - Primary Unspecified osteomyelitis, lower leg | + + documented in this encounter
--- OUTSIDE RECORDS SUMMARY | ~2019-08-17 | XMS | Encounter Summary ---
Demographics + + + | Address | [address] | | | [place] [address] | + + + | Home Phone [...] [place] | | | | | [address] | | + + + + + Care Team Providers + +------+ + | Care Healthcare Network Pricing Consultant Name | Role | Phone | [...] | | | | | | [place], | | | | | | [place] [address] | | | | | | [phone] | | | +--------+ + + + [...]
--- OUTSIDE RECORDS SUMMARY | ~2019-08-17 | XMS | Encounter Summary ---
Demographics + + + | Address | [address] | | | [place] [address] | + + + | Home Phone [...] [place] | | | | | [address] | | + + + + + Care Team Providers + +------+ + | Care Premium Note Interest Calculator Clerk Name | Role | Phone | [...] region (HCC) | | | | at [facility] 3rd Floor | | | | | | [address] | | | | | | [address] [place], [place] | | | | | | [address] | | | | | | [phone] | | | +--------+------+ + + + [...] [facility] | [address] | [place] [address] | | | MERCEDES, ELLIE | [address] [...] - | | | | | | [place] | | + +-------+ + + + + + | Specimen | + + | Blood - Blood | + + + + + + + | Performing | Address | City/State/Zipcode | Phone Number | | Organization | | | | + + + + + | [facility] | [address] | [place] [address] | | | [place] | | | [...] | + + + + + | [facility] | [address] [facility] | [place] [address] | | | SERVICES, CORE | JOY [...] | | | LABORATORY | | | [place] | | | SERVICES, | | | [...] | + + + + + | [facility] | [address] | [place] [address] | | | SERVICES, CORE | [address] | | | + + + + + documented in this encounter Visit Diagnoses + + | Diagnosis | + + | Osteomyelitis of knee region (HCC) Unspecified osteomyelitis, lower leg | + + documented in this encounter"
--- OUTSIDE RECORDS SUMMARY | ~2019-08-17 | XMS | Encounter Summary ---
Demographics + + + | Address | [address] | | | [place] [address] | + + + | Home Phone [...] [place] | | | | | [address] | | + + + + + Care Team Providers + +------+ + | Care Manager Activities Name | Role | Phone | + [...] + + + + | 09/04/ | Salvage Winder | Infectious | Brigid Hardy | | | 2012 | | [facility] at [facility] | [place] | | | | | Floor [address] | | | | | | [address] | | | | | | Mailcode: L457 | | | | | | [facility] | | | | | | [place], [place] | | | | | | [address] | | | | | | [phone] | | | +--------+ + + + [...]
--- OUTSIDE RECORDS SUMMARY | ~2019-08-17 | XMS | Encounter Summary ---
Demographics + + + | Address | [address] | | | [place] [address] | + + + | Home Phone [...] + | Grisel Marc | ECON | [address] | | | | | [place] | | | | | [address] | | + + + + + Care Team Providers + +------+ + | Care Lobster Catcher Name | Role | Phone | [...] | | | | | | Bambi Johnosn, | Agustin Presley, | | | | | Osteomyeliti | [address] | ,PhD 6470 | | | | | s of knee | [address] | | | | | region (HCC) | [facility] | [facility] | | | | | Articular | Rd | Rd [place], | | | | | cartilage | [place], [place] | [place] | | | | | disorder | [address] | [address] | | | | | Left knee | Phone: | Phone: | | | | | pain, | [phone] | [phone] | | | | | unspecified | Fax: | Fax: | | | | | chronicity | [phone] | [phone] | | | | | Post-traumat | [...] | | | Janett Case | [address] [place], [place] | (Primary Dx); | | | | [place] [address] | [address] | Articular cartilage | | | | [phone] | [phone] | disorder; Left knee | | | [...] and required multiple surgeries I believe at [facility] to clear this infection [...] this visit. Radiology: X-ray examination 06/04/19 demonstrates [place] changes and mild medial joint space narr owing. There are sclerotic changes noted tibial and femur MRI left knee from [facility] demonstrates Chronic ACL tear and [...] her age we will refer her to [facility] for possible osteochondral allograft, reconstr uction Follow up: linda Saba MD [facility] Orthopaedics and Rehabilitation Clinical Personal Property Assessor Board Certified in Sports Medicine and Orthopaedic Surgery Director of Total Joint Replacement Program, [facility] Orthopaedics and Sports Medicine [address] [place] [address] Office: [phone] documented in this e ncounter Plan of [...]
--- OUTSIDE RECORDS SUMMARY | ~2019-08-17 | XMS | Encounter Summary ---
Demographics + + + | Address | [address] | | | [place] [address] | + + + | Home Phone [...] | + + + + + | rGisel Marc | ECON | [address] | | | | | [place] | | | | | [address] | | + + + + + Care Team Providers + +------+ + | Care Hat Cone Inspector Name | Role | Phone | [...] [place] | | | | | [address] | [address] | | | | | | [phone] | | | | | | | [...] | | Results for this | | [address] | e | 10:19 AM | | procedure are in the | | | | PST | | results section. | + +--------+ + + + documented in this encounter Results ORT KNEE 3V 15533 (07/14/2015 10:19 AM PST) + + | Specimen | + + | | + + + + + | Narrative | Performed At | + + + | Name: | [facility] | | SANDY [facility] | DEPARTMENT OF | | Phys: Mars Nicolas MD | RADIOLOGY | | | | | : 1990 Age: 24 Sex: F | | | Acct: [id number] Loc: ORTH | | | | | | Exam Date: 07/14/2015 Status: PRE CLI | | | Radiology No: [id number] | | | Unit No: | | | EXAM# TYPE/EXAM | | | RESULT | | | [id number] ORT/ORT KNEE 3V 73 | | | EXAM: ORT | | | KNEE 3V 97811 CLINICAL HISTORY: | | | Knee pain. [...] | Transcribed Date/Time: 07/14/2015 | | | (2261) Stopping Builder: FLUENCY PAGE 1 | | | Signed Report | | | | | + + + + + | Procedure Note | + + | Interface, Radiology Results - 12/21/2015 11:29 AM PDT | | Name: SANDY MARC | | Phys: Mars Nicolas MD : | | 1990 Age: 24 Sex: F Acct: [id number] | | Loc: ORTH Exam Date: 07/14/2015 | | Status: PRE CLI Radiology No: [id number] | | Unit No: EXAM# TYPE/EXAM | | RESULT [id number] ORT/ORT KNEE 3V | | 73 EXAM: ORT KNEE 3V | | 15921 CLINICAL HISTORY: Knee pain. Subacute injury. COMPARISON: [...] | | | Transcribed Date/Time: 07/14/2015 (1022) Stopping Builder: FLUENCY PAGE 1 | | Signed Report [...] | | | | Transcribed Date/Time: 07/14/2015 (5342) | | Stopping Builder: YORDY | | | | | | [...]
--- OUTSIDE RECORDS SUMMARY | ~2019-08-17 | XMS | Encounter Summary ---
Demographics + + + | Address | [address] | | | [place] [address] | + + + | Home Phone [...] [place] | | | | | [address] | | + + + + + Care Team Providers + +------+ + | Care Healthcare Marketer Name | Role | Phone | + [...] [place] | | | | | Floor [address] | | | | | | [address] | | | | | | Mailcode: L457 | | | | | | [facility] | | | | | | [place], [place] | | | | | | [address] | | | | | | [phone] | | | +--------+ + + + [...] | + +---------+ + + | SONIA NEERNESTO GORMAN | | | | + +---------+ + + documented in this encounter Visit Diagnoses Not on filedocumented in this encounter"
--- OUTSIDE RECORDS SUMMARY | ~2019-08-17 | XMS | Encounter Summary ---
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 Surgery Check in Locations Admitting [facility], ninth floor [facility] Surgery Check in Time: The Preoperative [...] it is after office hours, call the [facility] gas cutting machine operator at [phone] and ask them to page him or h er. Preparing For Your Surgery Video -- 7 minutes of instructions! If you have access to the Internet and would like to review our instructional video about g etting ready for your procedure day, please follow these directions: Access the [facility] website [email or web address] --> POPULAR RESOURCES --> Patient Guide --> Preparing for your Visit or Surgery --> "Preparing for Your Surgery" video link documented in this encounter Progress Notes Miara Zhao NP - 08/24/2012 3:59 PM PST [...] and PMHX. Document will be scanned in [employer]. Pulmonary: Within Defined Limits except as noted [...] further investigation and manageme nt. A. Acute GA within 7 days: no B. Unstable angina/Recent GA (7- 30 days): no C. Decompensated CHF: [...] no Rate of cardiac , non fatal GA, non fatal cardiac arrest (RCRI) 0 risk [...] to this patient's care. MAIRA ZHAO NP [facility] [address] [place] [address] [phone] signed by Maira Zhao NP at 08/24/2012 [...]
--- OUTSIDE RECORDS SUMMARY | ~2019-08-17 | XMS | Encounter Summary ---
Demographics + + + | Address | [address] | | | [place] [address] | + + + | Home Phone [...] [place] | | | | | [address] | | + + + + + Care Team Providers + +------+ + | Care Veneer Grader Name | Role | Phone | + +------+ + | Adilia Bob GEOTECHNICAL INTERN | PCP | | + +------+ + Encounter Details +--------+ + + + + | Date | Type | Department | Care Team | Description | +--------+ + + + + | 03/10/ | Toll Gate Tender | Orthopaedics at | Alton Hernandez MD | Osteomyelitis of | | 2012 | | [facility] [address] | | knee region (HCC) | | | | [address] | | (Primary Dx); | | | | Mailcode: [id number] | | Pathologic fracture | | | | [facility] | | of tibia or fibula | | | | [place], [place] | | | | | | [address] | | | | | | [phone] | | | +--------+ + + + [...]
--- OUTSIDE RECORDS SUMMARY | ~2019-08-17 | XMS | Encounter Summary ---
Demographics + + + | Address | [address] | | | [place] [address] | + + + | Home Phone [...] [place] | | | | | [address] | | + + + + + Care Team Providers + +------+ + | Care Director Metabolism Name | Role | Phone | + [...]
--- OUTSIDE RECORDS SUMMARY | ~2019-08-17 | XMS | Encounter Summary ---
Demographics + + + | Address | [address] | | | [place] [address] | + + + | Home Phone [...] + | Grisel Marc | ECON | [address] | | | | | [place] | | | | | [address] | | + + + + + Care Team Providers + +------+ + | Care Load Mixer Name | Role | Phone | [...] | | | | | | [place] [address] | | | +--------+ + + + [...]
--- OUTSIDE RECORDS SUMMARY | ~2019-08-17 | XMS | Encounter Summary ---
Demographics + + + | Address | [address] | | | [place] [address] | + + + | Home Phone [...] + | Grisel Marc | ECON | [address] | | | | | [place] | | | | | [address] | | + + + + + Care Team Providers + +------+ + | Care Section Leader And Machine Setter Name | Role | Phone | [...] | | | Orthopaedic Surgery | [address] [place], [place] | chronicity (Primary | | | | [address] | [address] | Dx); Tears of | | | | [place], [place] | [phone] | meniscus and | | | | [address] | | anterior cruciate | | | | [phone] | | ligament of left | | [...] Marc is a 28 y.o. female from [place] who presents to the office today for [...] was referred fo r an MRI in [place] to evaluate this further. Her MRI description [...] MRI left knee from [facility] in [place] demonstrates Chronic ACL tear and medial join [...] plateau fracture requiring multiple surgeries and long goods drier IV antibiotics. Gisselle connolly was doing well until recent hyperextension injury. We reviewed detail of MRI including ACL tear, medial meniscus tear and medial cartilage loss. Risks of ACL reconstruction include i nfection and potentially continued pain/worsening of medial compartment arthritis. I will re view case with Dr Saba. Can potentially refer to [facility] if she is interested in ACL recon. Follow up: w/ Jayant Blue PA-C [facility] Orthopaedics and Rehabilitation Orthopaedic Physician Business Support Manager [facility] [address] [place] [address] Office: [phone] documented in this e ncounter Plan of [...]
--- OUTSIDE RECORDS SUMMARY | ~2019-08-17 | XMS | Encounter Summary ---
Demographics + + + | Address | [address] | | | [place] [address] | + + + | Home Phone | | + + + | Preferred Language | Unknown | + + + | Marital Status | | + + + | Orthodoxy Affiliation | Unknown | + + + | Race | Unknown | + + + | Ethnic Group | Unknown | + + + Author + + + | Author | [facility] | | | and [place] | + + + | Organization | [facility] | | | and [...] Providers + +------+ + | Care Steam Conditioner Filling Name | Role | Phone | + [...] [place] | | | | | | [place] | | | | | | [address] | | | | | | [phone] | | | +--------+ + + + [...] M?MRN: | | | | | | [id number] | | | [id number] | | | riteri | | | [...] | | | St. | | | [place] | | | y | | | [...] | | | St. | | | [place] | | | y H. | | [...] | | | St. | | | [place] | | | y H. | | [...] | | ER J, | | | FUEL CELL BATTERY TECHNICIAN | | | Nurse | | | [...]
--- OUTSIDE RECORDS SUMMARY | ~2019-08-17 | XMS | Encounter Summary ---
Demographics + + + | Address | [address] | | | [place] [address] | + + + | Home Phone [...] + | Grisel Marc | ECON | [address] | | | | | [place] | | | | | [address] | | + + + + + Care Team Providers + +------+ + | Care Art Specialist Name | Role | Phone | [...] | | | | of right | [address] | | | | | patella, | [address] | | | | | initial | [place], [place] | [place], [place] | | | | | encounter | [address] | [address] | | | | | Pain in | Phone: | Phone: | | | | | right knee | [phone] | [phone] | | | | | | Fax: | Fax: | | | | | | [phone] | [phone] | +--------+--------+ + + + + Encounter [...] | | [address] | [address] | (Primary Dx) | | | | [address] | [phone] | | | | | [place], [place] | | | | | | [address] | | | | | | [phone] | | | +--------+---------+ + + + [...]
--- OUTSIDE RECORDS SUMMARY | ~2019-08-17 | XMS | Encounter Summary ---
Demographics + + + | Address | [address] | | | [place] [address] | + + + | Home Phone [...] [place] | | | | | [address] | | + + + + + Care Team Providers + +------+ + | Care Software Quality Assurance Analyst Name | Role | Phone | + +------+ + | Adilia Bob COMMISSARY STEWARD | PCP | | + +------+ + [...] | | | | | Septic | [place], [place] | [facility] | | | | | 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[address] | [place] [address] | | | | | knee, left | | Phone: | | | | | ([facility]) | | [phone] | | | | | Procedures | | Fax: | | | | | CONSULT TO | | [phone] | | | | | INFECTIOUS | [...] | MD [address] | knee region ([facility]) | | | | Floor [address] | (Primary Dx) | | | | [address] | [place] [address] | | | | | Mailcode: L457 | [phone] | | | | | [facility] | | | | | | [place], [place] | | | | | | [address] | | | | | | [phone] | | | +--------+---------+ + + + [...] Peck MD - 08/25/2012 10:10 PM [facility] Clinic Date: 08/25/2012 Clinic: Infectious Disease [...] we will see how she does. Lavinia Pcek M.D., Ph.D. MALLORY / HYACINTH [id number] / [id number] / [id number] / Lavinia Lam MD - 08/25/2012 9:30 AM PST This office note has been dictated. [facility] #: [id number] I spent 45 minutes with the patient [...] | + + + + + | [facility] | [address] | [place] [address] | | | SERVICES, SPECIAL | PARK [...] Directory | | | | | | (Literably). | | | | + + + [...] Directory | | | | | | (Literably). | | | | + + + [...] Directory | | | | | | (Literably). | | | | + + + [...] # | | | | | | [phone]). Access | | | | | | complete set of age- | | | | | | and/or | | | | | | gender-specificreference | | | | | | intervals for this test | | | | | | in the [employer] | | | | | | LaboratoryTest Directory | | | | | | (Literably).Performed | | | | | | by [facility] | | | | | | [facility] | | | | | | [place] [address] | | | | | | [phone].[email or web address]. | | | | | | [facility], Magy Fernandez, | | | | [...] [facility] | [address] | [place], [place] | | | UNIV P[facility] | | [address] | | + + + + + [...] | | | | | | [place] | | + +-------+ + + + + + | Specimen | + + | Blood - Blood | + + + + + + + | Performing | Address | City/State/Zipcode | Phone Number | | Organization | | | | + + + + + | [facility] | [address] | [place] [address] | | | [place] | | | | + + + + + documented in this encounter Visit Diagnoses + + | Diagnosis | + + | Osteomyelitis of knee region (HCC) - Primary Unspecified osteomyelitis, lower leg | + + documented in this encounter"
--- OUTSIDE RECORDS SUMMARY | ~2019-08-17 | XMS | Encounter Summary ---
Demographics + + + | Address | [address] | | | [place] [address] | + + + | Home Phone [...] + | Grisel Marc | ECON | [address] | | | | | [place] | | | | | [address] | | + + + + + Care Team Providers + +------+ + | Care Hat And Cap Opener Name | Role | Phone | + [...] | | | | | right | [address] | NW | | | | | Procedures | [place], | [place] | | | | | MRI KNEE RT | [place] | [address] | | | | | [place] | [address] | Phone: | | | | | MRI LOWER | Phone: | [phone] | | | | | EXTREM JT, | [phone] | Fax: | | | | | W/O CONTRAST | Fax: | [phone] | | | | | | [phone] | | +--------+--------+ + + + + [...] knee | [address] | [address] | | | | | | | [address] THE | | | | | | [place], | [place] | | | | | | [place] [address] | [address] | | | | | | Phone: | Phone: | | | | | | [phone] | [phone] | | | | | | Fax: | Fax: | | | | | | [phone] | [phone] | +--------+--------+ + + + + Encounter [...] | | [address] | [address] | | | | | [address] | [phone] | | | | | [place], [place] | | | | | | [address] | | | | | | [phone] | | | +--------+---------+ + + + [...]
--- OUTSIDE RECORDS SUMMARY | ~2019-08-17 | XMS | Encounter Summary ---
Demographics + + + | Address | [address] | | | [place] [address] | + + + | Home Phone [...] [place] | | | | | [address] | | + + + + + Care Team Providers + +------+ + | Care Induction Heating Equipment Setter Name | Role | Phone | [...] | | | | | | [place], | | | | | | [place] [address] | | | | | | [phone] | | | +--------+ + + + [...]
--- OUTSIDE RECORDS SUMMARY | ~2019-08-17 | XMS | Encounter Summary ---
Demographics + + + | Address | [address] | | | [place] [address] | + + + | Home Phone [...] [place] | | | | | [address] | | + + + + + Care Team Providers + +------+ + | Care Six Color Press Operator Name | Role | Phone [...] | | | | | | [place], | | | | | | [place] [address] | | | | | | [phone] | | | +--------+ + + + [...]
--- OUTSIDE RECORDS SUMMARY | ~2019-08-17 | XMS | Encounter Summary ---
Demographics + + + | Address | [address] | | | [place] [address] | + + + | Home Phone [...] [place] | | | | | [address] | | + + + + + Care Team Providers + +------+ + | Care Tooling Inspector Name | Role | Phone | [...] | | | | [address] | [place] [address] | | | | | Mailcode: L457 | [phone] | | | | | [facility] | | | | | | [place], [place] | | | | | | [address] | | | | | | [phone] | | | +--------+ + + + [...]
--- OUTSIDE RECORDS SUMMARY | ~2019-08-17 | XMS | Encounter Summary ---
Demographics + + + | Address | [address] | | | [place] [address] | + + + | Home Phone [...] [place] | | | | | [address] | | + + + + + Care Team Providers + +------+ + | Care Road Test Examiner Name | Role | Phone | [...] [place] | | | | | Floor [address] | | | | | | [address] | | | | | | Mailcode: L457 | | | | | | [facility] | | | | | | [place], [place] | | | | | | [address] | | | | | | [phone] | | | +--------+ + + + [...]
--- OUTSIDE RECORDS SUMMARY | ~2019-08-17 | XMS | Encounter Summary ---
Demographics + + + | Address | [address] | | | [place] [address] | + + + | Home Phone [...] [place] | | | | | [address] | | + + + + + Care Team Providers + +------+ + | Care Inspector General Name | Role | Phone | + [...] | | | | [address] | [place] [address] | | | | | Mailcode: L457 | [phone] | | | | | [facility] | | | | | | [place], [place] | | | | | | [address] | | | | | | [phone] | | | +--------+ + + + [...]
--- OUTSIDE RECORDS SUMMARY | ~2019-08-17 | XMS | Encounter Summary ---
Demographics + + + | Address | [address] | | | [place] [address] | + + + | Home Phone [...] [place] | | | | | [address] | | + + + + + Care Team Providers + +------+ + | Care Historian Research Assistant Name | Role | Phone | [...] | | | necrosis of | [address] | [address] | | | | | bone) ([facility]) | Rd | [address] | | | | | Septic | [place], [place] | [place], | | | | | 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[address] | [place] [address] | | | | | knee, left | | Phone: | | | | | ([facility]) | | [phone] | | | | | Procedures | | Fax: | | | | | CONSULT TO | | [phone] | | | | | INFECTIOUS | [...] use of antibiotics | | | | [place], [place] | | | | | | [address] | | | | | | [phone] | | | +--------+---------+ + + + [...] CLINIC FOLLOW UP Primary Care Physician: [facility] [place] [address] [place] [address], [address] [place] [address] Ms. Marc presents to Infectious Diseases Clinic [...] doing rodeo on her horse going around [place], and she was leaning out away from [employer]. Her legs spontaneously broke with pathological [...] placement of antibiotic beads 09/03/2012: HIRAM Silva [facility] Operative Findings: We began by performing [...] amedullary canal. We then used our canal nurse discharge to thoroughly washout the intramedullary canal as [...] She was seen in the ER in [place] and had a CT Thor ax that [...] an d follow-up planning. Brigid Hardy PA-C [facility] Department of Infectious Diseases Outpatient IV Antibiotic Therapy Clinic (OPAT) [phone] Pager ID: [phone] [facility] Mail Code L457 [place] [address] documented in this encounter Plan of Treatment [...]
--- OUTSIDE RECORDS SUMMARY | ~2019-08-17 | XMS | Encounter Summary ---
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 Surgery Check in Locations Admitting [facility], ninth floor [facility] Surgery Check in Time: The Preoperative [...] it is after office hours, call the [facility] lowerator operator at [phone] and ask them to page him or h er. Preparing For Your Surgery Video -- 7 minutes of instructions! If you have access to the Internet and would like to review our instructional video about g etting ready for your procedure day, please follow these directions: Access the [facility] website [email or web address] --> POPULAR RESOURCES --> Patient Guide --> [...] and PMHX. Document will be scanned in [email or web address]. Pulmonary: Within Defined Limits except as noted [...] further investigation and manageme nt. A. Acute FL within 7 days: no B. Unstable angina/Recent FL (7- 30 days): no C. Decompensated CHF: [...] no Rate of cardiac , non fatal FL, non fatal cardiac arrest (RCRI) 0 risk [...] to this patient's care. MAIRA ZHAO NP [facility] PRE[facility]IC[facility] [address] [place] [address] [phone] signed by Maira Zhao NP at 08/24/2012 [...]
--- OUTSIDE RECORDS SUMMARY | ~2019-08-17 | XMS | Encounter Summary ---
Demographics + + + | Address | [address] | | | [place] [address] | + + + | Home Phone [...] + | Grisel Marc | ECON | [address] | | | | | [place] | | | | | [address] | | + + + + + Care Team Providers + +------+ + | Care Research Anthropologist Name | Role | Phone | [...] | | | | [place] | [address] | | | | | [address] | [phone] | | | | | [place] | | | | | | [address] | | | | | | [phone] | | | +--------+ + + + [...]
--- OUTSIDE RECORDS SUMMARY | ~2019-08-17 | XMS | Encounter Summary ---
Demographics + + + | Address | [address] | | | [place] [address] | + + + | Home Phone [...] [place] | | | | | [address] | | + + + + + Care Team Providers + +------+ + | Care Foreign Collection Clerk Name | Role | Phone | [...] | | | | | Health | [facility] | | | | | | Associates | Rd | | | | | | [address] | [place], [place] | | | | | | [address] | [address] | | | | | | [place], | | | | | | | [place] [address] | | | | | | | Phone: | | | | | | | [phone] | | | | | | | Fax: | | | | | | | [phone] | | +--------+--------+ + + + + [...] | | | [address] | [place] [address] | | | | | Mailcode: L608 | [phone] | | | | | Physician[facility] [address] | | | | | | [address] | | | | | | [facility] [place] | | | | | | [address] | | | | | | [phone] | | | +--------+---------+ + + + [...] FOLLOW UP Referrring Physician: Alton Hernandez MD [address] [place] [address] Primary Care Physician: [facility] [address], [address] [place] [address] Ms. Marc presents to Infectious Diseases Clinic regarding scheduled follow up. Please refer to prior documentation including inpatient OPAT teaching note, outpatient OPAT radio recorder for antibiotic therapy, lab monitoring History other [...] doing rodeo on her horse going around [employer], and she was le aning out away [...] Silva [facility] Operative Findings: There were no gross findings [...] She was seen in the ER in [place] and had a CT Thor ax that [...] Marc follow up in Infectious Diseases Clinic [place] I spent 20 minutes in a face-to face visit with the patient, with over 50% of time spen t in councelling the patient. We discussed infection, antibiotics, duration of therapy, lab results, and follow-up planning, as described above. ZOEY PECK MD INFECTIOUS DISEASES [address] [place] [address] Mailcode: L608 [place] [address] documented in this e ncounter Plan of Treatment Not on filedocumented as of this encounter Visit Diagnoses + + | Diagnosis | + + | Osteomyelitis of knee region (HCC) - Primary Unspecified osteomyelitis, lower leg | + + documented in this encounter
--- OUTSIDE RECORDS SUMMARY | ~2019-08-17 | XMS | Encounter Summary ---
Demographics + + + | Address | [address] | | | [place] [address] | + + + | Home Phone [...] [place] | | | | | [address] | | + + + + + Care Team Providers + +------+ + | Care Manager General Name | Role | Phone | [...] | | | | | unspecified | [address] | NW | | | | | chronicity | [place], | [place], [place] | | | | | Tears of | [place] | [address] | | | | | meniscus and | [address] | Phone: | | | | | anterior | Phone: | [phone] | | | | | cruciate | [phone] | Fax: | | | | | ligament of | Fax: | [phone] | | | | | left knee, | [phone] | | | | | | initial | | | | | | | encounter | | | | | | | Procedures | | | | | | | MRI KNEE | | | | | | | LEFT WO | | | | | | | CONTRAST [place] | | | | | | [...] | | | Orthopaedic Surgery | Blvd [place], [place] | chronicity (Primary | | | | [address] | [address] | Dx); Tears of | | | | [place], [place] | [phone] | meniscus and | | | | [address] | | anterior cruciate | | | | [phone] | | ligament of left | | [...] Marc is a 28 y.o. female from [place] who presents to the office today for [...] Follow up: After MRI Jaci Blue PA-C [facility] Orthopaedics and Rehabilitation Orthopaedic Physician Steel Checker [facility] Orthopaedics and Sports Medicine [address] [place] [address] Office: [phone] documented in this e ncounter Plan of [...] | + + + | [address] [place] [address] | [facility] | | [place] [address] | [facility] | | [phone] Name: SANDY MARC Phys: | RADIOLOGY | | JACI BLUE : 1990 Sex: F CSN: | | | [id number] MR# [id number] Exam Date: 06/04/2019 | | | EXAM: [...] Transcribed | | | Date/Time: 06/04/2019 11:28 Lithographic Artist: FLUENCY | | + + + + + | Procedure Note | + + | Interface, Radiology Results - 06/04/2019 11:36 AM PDT [address] | | [address] [place] [address] | | Name: SANDY MARC Phys: JACI BLUE : 1990 Sex: F | | CSN: [id number] MR# [id number] Exam Date: 06/04/2019 EXAM:LEFT LOWER EXTREMITY | [...] | | |Transcribed Date/Time: 06/04/2019 11:28 | |Lithographic Artist: FLUENCY | | | | | | [...] | + + + | [address] [place] [address] | [facility] | | [place] [address] | DEPARTMENT OF | | [phone] Name: SANDY MARC Phys: | RADIOLOGY | | JACI BLUE : 1990 Sex: F CSN: | | | [id number] MR# [id number] Exam Date: 06/04/2019 | | | EXAM: X-RAY KNEE 3 VIEWS LEFT 12657; X-RAY KNEE 2 VIEWS RIGHT | | | [address] CLINICAL HISTORY: Left knee pain. COMPARISON: None [...] Transcribed Date/Time: 06/04/2019 | | | 23:16 Lithographic Artist: YORDY | | + + + + + | Procedure Note | + + | Interface, Radiology Results - 06/04/2019 11:21 PM PDT [address] | | [address] [place] [address] | | Name: SANDY MARC Phys: JACI BLUE : 1990 Sex: F | | CSN: [id number] MR# [id number] Exam Date: 06/04/2019 EXAM:X-RAY KNEE 3 VIEWS | | LEFT 81216; X-RAY KNEE 2 VIEWS RIGHT 66996 CLINICAL HISTORY:Left knee pain. | | COMPARISON:None [...] Electronically signed by: HELENA | | MD CHRITSI Transcribed Date/Time: 06/04/2019 23:16Transcriptionist: FLUENCY | | [...] | | |Transcribed Date/Time: 06/04/2019 23:16 | |Lithographic Artist: FLUENCY | | | | | | [...] Street | [facility] | | [place] [address] | DEPARTMENT OF | | [phone] Name: SANDY MARC Phys: | RADIOLOGY | | JACI BLUE : 1990 Sex: F CSN: | | | [id number] MR# [id number] Exam Date: 06/04/2019 | | | EXAM: X-RAY KNEE 3 VIEWS LEFT 77399; X-RAY KNEE 2 VIEWS RIGHT | | | [address] CLINICAL HISTORY: Left knee pain. COMPARISON: None [...] Transcribed Date/Time: 06/04/2019 | | | 23:16 Lithographic Artist: FLUENCY | | + + + + + | Procedure Note | + + | Interface, Radiology Results - 06/04/2019 11:21 PM PDT [address] | | [place] [address] | | Name: SANDY MARC Phys: JACI BLUE : 1990 Sex: F | | CSN: [id number] MR# [id number] Exam Date: 06/04/2019 EXAM:X-RAY KNEE 3 VIEWS | | LEFT 18843; X-RAY KNEE 2 VIEWS RIGHT 31[address] CLINICAL HISTORY:Left knee pain. | | COMPARISON:None [...] | | |Transcribed Date/Time: 06/04/2019 23:16 | |Lithographic Artist: FLUENCY | | | | | | [...]
--- OUTSIDE RECORDS SUMMARY | ~2019-08-17 | XMS | Encounter Summary ---
Demographics + + + | Address | [address] | | | [place] [address] | + + + | Home Phone [...] [place] | | | | | [address] | | + + + + + Care Team Providers + +------+ + | Care Cloth Spreader Name | Role | Phone | + [...] Pavilion | | | | | | [place], [place] | | | | | | [address] | | | | | | [phone] | | | +--------+ + + + [...]
--- OUTSIDE RECORDS SUMMARY | ~2019-08-17 | XMS | Encounter Summary ---
Demographics + + + | Address | [address] | | | [place] [address] | + + + | Home Phone [...] + | Grisel Marc | ECON | [address] | | | | | [place] | | | | | [address] | | + + + + + Care Team Providers + +------+ + | Care Major Gifts Director Name | Role | Phone | [...] | | | Orthopaedic Surgery | [place], [place] | | | | | [address] | [address] | | | | | [place], [place] | [phone] | | | | | [address] | | | | | | [phone] | | | +--------+ + + + [...] | + + + + + | [facility] | | [place] [address] | [phone] | | MEDICAL CENTER | Streets | [...] + + | [place] | [address] | [place] [address] | [phone] | | [facility] | Streets | | | + + + + + documented in this encounter Visit Diagnoses + + | Diagnosis | + + | Osteomyelitis of knee region (HCC) - Primary Unspecified osteomyelitis, lower leg | + + documented in this encounter"
--- OUTSIDE RECORDS SUMMARY | ~2019-08-17 | XMS | Encounter Summary ---
Demographics + + + | Address | [address] | | | [place] [address] | + + + | Home Phone [...] [place] | | | | | [address] | | + + + + + Care Team Providers + +------+ + | Care Services Delivery Driver Name | Role | Phone | [...] | | | | | | [place], | | | | | | [place] [address] | | | | | | [phone] | | | +--------+ + + + [...]
--- OUTSIDE RECORDS SUMMARY | ~2019-08-17 | XMS | Encounter Summary ---
Demographics + + + | Address | [address] | | | [place] [address] | + + + | Home Phone [...] [place] | | | | | [address] | | + + + + + Care Team Providers + +------+ + | Care Sledger Name | Role | Phone | + [...] region (HCC) | | | | at [facility] 3rd Floor | | | | | | [address] | | | | | | Loop [place], [place] | | | | | | [address] | | | | | | [phone] | | | +--------+------+ + + + [...] e | 10:01 AM | knee region ([facility]) | procedure are in the | | | | PST | | results section. | + +--------+ + + + | HIV-1,2 AB/HIV-1 P24 | Routin | 08/25/2012 | Osteomyelitis of | Results for this | | AG SCRN | e | 10:01 AM | knee region ([facility]) | procedure are in the | | | | PST | | results section. | + +--------+ + + + | IGA, SERUM | Routin | 08/25/2012 | Osteomyelitis of | Results for this | | | e | 10:01 AM | knee region ([facility]) | procedure are in the [...] [facility] | [address] | [place] [address] | | | SERVICES, CORE | PARK [...] [facility] | [address] | [place] [address] | | | SERVICES, SPECIAL | PARK [...] | | | | | in the [facility] | | | | | | LaboratoryTest Directory | | | | | | ([address]). | | | | + + + [...] Directory | | | | | | ([address]). | | | | + + + [...] | | | | | in the [facility] | | | | | | LaboratoryTest Directory | | | | | | ([address]). | | | | + + + [...] # | | | | | | [phone]). Access | | | | | | complete set of age- | | | | | | and/or | | | | | | gender-specificreference | | | | | | intervals for this test | | | | | | in the [facility] | | | | | | LaboratoryTest Directory | | | | | | ([email or web address]).Performed | | | | | | by [facility] | | | | | | [facility],[address] [place] [place] [address] | | | | | | [place] [address] | | | | | | [phone]. | | | | | | [facility], Magy Fernandez, | | [...] [facility] | [address] | [place], [place] | | | UNIV P[facility] - INTFC | | [address] | | + + + + + [...] | + + + + + | [email or web address] - | [address] | [place] [address] | | | [place] | | | | + + + + + documented in this encounter Visit Diagnoses + + | Diagnosis | + + | Osteomyelitis of knee region (HCC) Unspecified osteomyelitis, lower leg | + + documented in this encounter"
--- OUTSIDE RECORDS SUMMARY | ~2019-08-17 | XMS | Encounter Summary ---
Demographics + + + | Address | [address] | | | [place] [address] | + + + | Home Phone [...] + | Grisel Marc | ECON | [address] | | | | | [place] | | | | | [address] | | + + + + + Care Team Providers + +------+ + | Care Mandolin Repairer Name | Role | Phone | [...] | | | [address] | [address] | | | | | [place] | [phone] | | | | | [address] | | | | | | [phone] | | | +--------+ + + + [...]
--- OUTSIDE RECORDS SUMMARY | ~2019-08-17 | XMS | Encounter Summary ---
Demographics + + + | Address | [address] | | | [place] [address] | + + + | Home Phone | | + + + | Preferred Language | Unknown | + + + | Marital Status | | + + + | Pentecostal Affiliation | Unknown | + + + | Race | Unknown | + + + | Ethnic Group | Unknown | + + + Author + + + | Author | [facility] | | | and [place] | + + + | Organization | [facility] | | [...] Team Providers + +------+ + | Care Drill Hand Name | Role | Phone | [...] [place] | | | | | | [place] | | | | | | [address] | | | | | | [phone] | | | +--------+ + + + [...] M?MRN: | | | | | | [id number] | | | [id number] | | | riteri | | | [...] | | | St. | | | [place] | | | y | | | [...] | | | St. | | | [place] | | | y H. | | [...] | | | St. | | | [place] | | | y H. | | [...] | | ER J, | | | EXTRUDING DEPARTMENT SUPERVISOR | | | Nurse | | | [...]
--- OUTSIDE RECORDS SUMMARY | ~2019-08-17 | XMS | Encounter Summary ---
Demographics + + + | Address | [address] | | | [place] [address] | + + + | Home Phone [...] [place] | | | | | [address] | | + + + + + Care Team Providers + +------+ + | Care Diabetes Educator Name | Role | Phone | + [...] + + + + | 09/07/ | Manager Clinical | Infectious | Brigid Hardy | | | 2012 | | Diseases at [facility] [address] | [place] | | | | | Floor [address] | | | | | | [address] | | | | | | Mailcode: L457 | | | | | | [facility] | | | | | | [place], [place] | | | | | | [address] | | | | | | [phone] | | | +--------+ + + + [...]
--- OUTSIDE RECORDS SUMMARY | ~2019-08-17 | XMS | Encounter Summary ---
Demographics + + + | Address | [address] | | | [place] [address] | + + + | Home Phone [...] + | Grisel Marc | ECON | [address] | | | | | [place] | | | | | [address] | | + + + + + Care Team Providers + +------+ + | Care Technical Writing Lead/Mgr Name | Role | Phone | + [...] | | | [address] | [address] | | | | | [place] | [phone] | | | | | [address] | | | | | | [phone] | | | +--------+ + + + [...]
[~2019-08-17 20:37] MED LIST changes: +CRUTCH1 EACH; +NORCO 5-325 TA1 EACH PO
--- OUTSIDE RECORDS SUMMARY | 2019-08-17 20:40 | XMS ---
PreManage Notification: ALYSA HARTMAN Security Operating Room Specialist Events No recent Security Events currently on file CRITERIA MET - 6 ED Visits in 6 Months - [facility] Guidelines - PDMP CARE PROVIDERS EFRAÍN Singer Nurse Practitioner 04/26/2019-Tai GEORGES PHONE: Unknown SARA CLIFFORD [facility] 07/14/2015-Current Rose[place] PHONE: [phone] SARA CLIFFORD Primary Care Current PHONE: Unknown SARA CLIFFORD Primary Care 07/14/2015-[employer] PHONE: [phone] [facility] 07/14/[facility] PHONE: [phone] Guidelines Source: [facility] Bernard Becker Guidelines Date: 02/15/2019 Care Coordination: Mental health services provided by [facility].\T\nbsp; Please contact [facility] with mental health concerns.\T\nbsp; [facility] [phone]\T\ nbsp; [place]: [phone]. E.D. VISIT COUNT (12 MO.) 4 [facility] [place] TOTAL 8 NOTE: Visits indicate total known visits. ED/UCC VISIT TRACKING (12 MO.) 08/17/2019 20:37 [place] [place] TYPE: Emergency COMPLAINT: - ABD PAIN/FEVER 06/19/2019 13:51 [facility] DIAGNOSES: - poss vomiting blood - Emesis - Proc/trtmt not crd out d/t pt lv bef [facility] by [facility] care prov 05/28/2019 22:32 [place] [place] TYPE: Emergency COMPLAINT: - LT KNEE INJURY DIAGNOSES: - Attention-deficit hyperactivity disorder, unspecified type - Nicotine dependence, unspecified, uncomplicated - Allergy status to sulfonamides status - Other nonmedicinal substance allergy status - Pain in left knee - Allergy status to penicillin - Sprain of unspecified site of left knee, initial encounter - Other terminal make up operator (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 - Overexertion from prolonged static or awkward postures, init 05/01/2019 01:28 [facility] [place] TYPE: Emergency DIAGNOSES: - COUGH EAR [...] - Nicotine dependence, unspecified, uncomplicated - Other terminal make up operator (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 04/06/2019 00:58 [facility] [place] TYPE: Emergency DIAGNOSES: - Acute pharyngitis, unspecified - sore throat 02/14/2019 15:53 [facility] [place] TYPE: Emergency DIAGNOSES: - WEAKNES NAUSEA VOMITING - Nausea with vomiting, unspecified - Dizziness and giddiness 12/11/2018 17:21 [facility] [place] TYPE: Emergency DIAGNOSES: - Unspecified abdominal pain - L FLANK PAIN INPATIENT VISIT TRACKING (12 MO.) No inpatient visits to display in this time frame [id number]
== END 2019-08-17 22:50 | disposition home or self-care (01) ==
LOC: ED 20:37
DX: R10.31 Right lower quadrant pain (principal); F90.9 Attention-deficit hyperactivity disorder, unspecified type; F17.200 Nicotine dependence, unspecified, uncomplicated; Z91.040 Latex allergy status; Z88.0 Allergy status to penicillin; Z91.048 Other nonmedicinal substance allergy status; Z88.2 Allergy status to sulfonamides; Z79.899 Other long term (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
CPT/HCPCS: 74177; 80053; 81001; 83690; 83735; 84703; 85025; 96361; 99284-25; J2270; J2405; J7030; Q9967

== ENCOUNTER 2019-08-24 18:00 | Emergency (ER) | payer OTHER ==
[~2019-08-24] VITALS: Ht 170.2 cm; Wt 86.2 kg
--- OUTSIDE RECORDS SUMMARY | ~2019-08-24 | XMS | Encounter Summary ---
Demographics + + + | Address | [address] | | | [place] [address] | + + + | Home Phone | | + + + | Preferred Language | Unknown | + + + | Marital Status | Single | + + + | Baptist Affiliation | LUT | + + + | Race | White | + + + | Ethnic Group | Not or | + + + Author + + + | Organization | Unknown | + + + | Address | Unknown | + + + | Phone | Unavailable | + + + Support + + + + + | Name | Relationship | Address | Phone | + + + + + | Grisel Marc | ECON | [address] | | | | | [place] | | | | | [address] | | + + + + + Care Team Providers + +------+ + | Care Radio Division Officer Name | Role | Phone | + +------+ + | Hina Peterson | PCP | | + +------+ + Encounter Details +--------+--------+ + + + | Date | Type | Department | Care Team | Description | +--------+--------+ + + + | 06/18/ | Travel | | | | | 2019 | | | | | +--------+--------+ + + + Social History + + [...] filedocumented as of this encounter Visit Diagnoses Not on filedocumented in this encounter"
--- OUTSIDE RECORDS SUMMARY | ~2019-08-24 | XMS | Encounter Summary ---
Demographics + + + | Address | [address] | | | [place] [address] | + + + | Home Phone [...] Author + + + | Author | [facility] | + + + | Organization | [facility] | + + + | Address | Unknown | + + + | Phone | Unavailable | + + + Support + + + + + | Name | Relationship | Address | Phone | + + + + + | Grisel Marc | ECON | [address] | | | | | [place] | | | | | [address] | | + + + + + Care Team Providers + +------+ + | Care Medical Sales Representative Name | Role | Phone | + +------+ + | Adilia Bob MOLD BREAKER | PCP | | + +------+ + Encounter Details +--------+ + + + + | Date | Type | Department | Care Team | Description | +--------+ + + + + | 10/13/ | Digital Designer | Orthopaedics at | Alton Hernandez MD | Osteomyelitis of | | 2012 | | [facility] [address] | | knee region (HCC) | | | | [address] | | (Primary Dx) | | | | Mailcode: [id number] | | | | | | [facility] | | | | | | [place], [place] | | | | | | [address] | | | | | | [phone] | | | +--------+ + + + [...] Not on filedocumented as of this encounter Results X-RAY TIBIA & FIBULA [...] | | + +---------+ + + | [facility] DEPARTMENT OF | | | | | RADIOLOGY | | | | + +---------+ + + documented in this encounter Visit Diagnoses + + | Diagnosis | + + | Osteomyelitis of knee region (HCC) - Primary Unspecified osteomyelitis, lower leg | + + documented in this encounter"
--- OUTSIDE RECORDS SUMMARY | ~2019-08-24 | XMS | Encounter Summary ---
Demographics + + + | Address | [address] | | | [place] [address] | + + + | Home Phone | | + + + | Preferred Language | Unknown | + + + | Marital Status | Single | + + + | Sikhism Affiliation | LUT | + + + | Race | White | + + + | Ethnic Group | Not or | + + + Author + + + | Author | [facility] | + + + | Organization | [facility] | + + + | Address | Unknown | + + + | Phone | Unavailable | + + + Support + + + + + | Name | Relationship | Address | Phone | + + + + + | Grisel Marc | ECON | [address] | | | | | [place] | | | | | [address] | | + + + + + Care Team Providers + +------+ + | Care Beef Grinder Name | Role | Phone | + [...] Lavinia Peck, | Skin rash | | 2013 | | Diseases at [facility] [address] | MD [address] | | | | | [address] | | | | | [address] | [place] [address] | | | | | Mailcode: [id number] | [phone] | | | | | [facility] | | | | | | [place], [place] | | | | | | [address] | | | | | | [phone] | | | +--------+ + + + [...]
--- OUTSIDE RECORDS SUMMARY | ~2019-08-24 | XMS | Encounter Summary ---
Demographics + + + | Address | [address] | | | [place] [address] | + + + | Home Phone | | + + + | Preferred Language | Unknown | + + + | Marital Status | Single | + + + | Zoroastrianism Affiliation | LUT | + + + | Race | White | + + + | Ethnic Group | Not or | + + + Author + + + | Author | [facility] | + + + | Organization | [facility] | + + + | Address | Unknown | + + + | Phone | Unavailable | + + + Support + + + + + | Name | Relationship | Address | Phone | + + + + + | Grisel Marc | ECON | [address] | | | | | [place] | | | | | [address] | | + + + + + Care Team Providers + +------+ + | Care Iron Carrier Name | Role | Phone | + +------+ + | Hina Peterson | PCP | | + +------+ + Encounter Details +--------+ + + + + | Date | Type | Department | Care Team | Description | +--------+ + + + + | 03/13/ | Document-Sc | [facility] [address] | Unknown . | | | 2015 | anned | [place], | | | | | | [place] [address] | | | +--------+ + + + [...]
--- OUTSIDE RECORDS SUMMARY | ~2019-08-24 | XMS | Encounter Summary ---
Demographics + + + | Address | [address] | | | [place] [address] | + + + | Home Phone | | + + + | Preferred Language | Unknown | + + + | Marital Status | Single | + + + | Sikh Affiliation | LUT | + + + | Race | White | + + + | Ethnic Group | Not or | + + + Author + + + | Author | [facility] | + + + | Organization | [facility] | + + + | Address | Unknown | + + + | Phone | Unavailable | + + + Support + + + + + | Name | Relationship | Address | Phone | + + + + + | Grisel Marc | ECON | [address] | | | | | [place] | | | | | [address] | | + + + + + Care Team Providers + +------+ + | Care Marketing Database Coordinator Name | Role | Phone | + +------+ + | Hina Peterson | PCP | | + +------+ + Encounter Details +--------+ + + + + | Date | Type | Department | Care Team | Description | +--------+ + + + + | 04/02/ | Document-Sc | [facility] | Mars Nicolas, | | | 2016 | anned | Sports Medicine & | MD [address] | | | | | Orthopaedic Surgery | [place] | | | | | [address] | [address] | | | | | [address] | [phone] | | | | | [place] | | | | | | [address] | | | | | | [phone] | | | +--------+ + + + [...] | + +--------+ + + + | OUTSIDE RADIOLOGY - | | 02/20/2016 | | Results for this | | MRI | | 12:00 AM | | procedure are in the | | | | PDT | | results section. | + +--------+ + + + documented in this encounter Results OUTSIDE RADIOLOGY - MRI (02/20/2016 12:00 AM PDT) + + + | Narrative | Performed At | + + + | | | + + + documented in this encounter Visit Diagnoses Not on filedocumented in this encounter"
--- OUTSIDE RECORDS SUMMARY | ~2019-08-24 | XMS | Encounter Summary ---
Demographics + + + | Address | [address] | | | [place] [address] | + + + | Home Phone | | + + + | Preferred Language | Unknown | + + + | Marital Status | | + + + | Pentecostal Affiliation | Unknown | + + + | Race | Unknown | + + + | Ethnic Group | Unknown | + + + Author + + + | Author | [facility] | | | and [place] | + + + | Organization | [facility] | | | and [place] | + + + | Address | Unknown | + + + | Phone | Unavailable | + + + Support + + +---------+ + | Name | Relationship | Address | Phone | + + +---------+ + | Grisel Monico | ECON | Unknown | | + + +---------+ + Care Team Providers + +------+ + | Care Boat Crew Deck Hand Name | Role | Phone | + +------+ + | Hina Peterson PA-C | PCP | | + +------+ + Reason for Visit +--------+ + | Reason | Comments | +--------+ + | Emesis | | +--------+ + Encounter Details +--------+ + + + + | Date | Type | Department | Care Team | Description | +--------+ + + + + | 06/19/ | Emergency | [facility] | No, Physician | Patient left after | | 2018 | [facility] | | triage (Primary Dx) | | | | CENTER [address] | | | | | | [place] | | | | | | [address] | | | | | | [phone] | | | +--------+ + + + + Social History + +-------+ +--------+------+ | Tobacco Use | Types | Packs/Day | Years | Date | | | | | Used | | + +-------+ +--------+------+ | Current Some Day | | 0.25 | | | | Smoker | | | | | + +-------+ +--------+------+ + +---+---+---+ | Smokeless Tobacco: | | | | | Never Used | | | | + +---+---+---+ + + | Tobacco Cessation: Ready to Quit: Yes; Counseling Given: Yes | | Comments: pt is almost done. | + + + + + | Sex Assigned [...] + + + | Blood Pressure | 108/79 | 06/19/2019 1:59 PM | | | | | PST | | + + + + + | Pulse | 81 | 06/19/2019 1:59 PM | | | | | PST | | + + + + + | Temperature | 37 C (98.6 F) | 06/19/2019 1:59 PM | | | | | PST | | + + + + + | Respiratory Rate | 18 | 06/19/2019 1:59 PM | | | | | PST | | + + + + + | Oxygen Saturation | 99% | 06/19/2019 1:59 PM | | | | | PST | | + + + + + | Inhaled Oxygen | - | - | | | Concentration | | | | + + + + + | Weight | 86.2 kg (190 lb) | 06/19/2019 1:59 PM | | | | | PST | | + + + + + | Height | 170.2 cm (5' 7") | 06/19/2019 1:59 PM | | | | | PST | | + + + + + | Body Mass Index | 29.76 | 06/19/2019 1:59 PM | | | | | PST | | + + + + + documented in this encounter Medications at Time of Discharge + + + +---------+ + + | Medication | Sig | Dispensed | Refills | Start | End Date | | | | | | Date | | + + + +---------+ + + | albuterol (PROAIR | Inhale 2 puffs into | | 0 | 07/13/20 | | | HFA) 90 mcg/puff | the lungs. | | | 18 | | | inhaler | | | | | | + + + +---------+ + + | MANUAL SELECTION | Med Name: keto diet | | 0 | 09/14/19 | | | NEEDED - UNABLE TO | supplement | | | 19 | | | FIND | | | | | | + + + +---------+ + + | methocarbamol | Take 750 mg by mouth | | 0 | 09/14/19 | | | (ROBAXIN) 750 mg | 4 (four) times | | | 19 | | | tablet | daily. | | | | | + + + +---------+ + + documented as of this encounter Plan of Treatment + +------+--------+ + + | Name | Type | Priori | Associated Diagnoses | Date/Time | | | | ty | | | + +------+--------+ + + | ED INFORMATION | NATHAN | Routin | | 06/19/2019 1:51 PM | | EXCHANGE | | e | | PST | + +------+--------+ + + documented as of this encounter Procedures + +--------+ + + + | Procedure Name | Priori | Date/Time | Associated Diagnosis | Comments | | | ty | | | | + +--------+ + + + | ED INFORMATION | Routin | 06/19/2019 | | | | EXCHANGE | e | 1:51 PM | | | | | | PST | | | + +--------+ + + + +---+--------+ | | | | | Proced | | | ure | | | Note - | | | Joseph, | | | Lab In | | | | | | Hlseve | | | n - | | | 11/09/ | | | 2019 | | | 1:52 | | | PM PST | | | | | | Format | | | ting | | | of | | | this | | | note | | | might | | | be | | | differ | | | ent | | | from | | | the | | | origin | | | al.COL | | | LECTIV | | | E?NOTI | | | FICATI | | | ON?11/ | | | 09/201 | | | 9 | | | 13:51? | | | MONICO | | | , | | | DANEEL | | | | | | M?MRN: | | | | | | [id number] | | | [id number] | | | riteri | | | a Met | | | Care | | | Guidel | | | yony | | | 4 | | | visits | | | in 60 | | | 3 | | | Facili | | | ties | | | in | | | 60Secu | | | rity | | | and | | | Safety | | | No | | | recent | | | | | | Securi | | | ty | | | Events | | | | | | curren | | | tly on | | | | | | fileED | | | Care | | | Guidel | | | yony | | | from | | | [facility] | | | ys - | | | [place] | | | laLast | | | | | | Update | | | d: | | | 7/8/19 | | | 9:57 | | | AM | | | Care | | | Coordi | | | nation | | | :Menta | | | l | | | health | | | | | | servic | | | es | | | provid | | | ed by | | | [facility] | | | ys.? | | | Please | | | | | | contac | | | t | | | [facility] | | | ys | | | with | | | mental | | | | | | health | | | | | | concer | | | ns.? | | | [place] | | | ton/Mi | | | lton | | | [place] | | | ter: | | | [phone] | | [phone] | | | ? | | | Hermis | | | ton: | | | [phone] | | | [phone] | | | .These | | | are | | | guidel | | | yony | | | and | | | the | | | provid | | | er | | | should | | | | | | exerci | | | se | | | clinic | | | al | | | judgme | | | nt | | | when | | | provid | | | ing | | | care.P | | | rescri | | | ption | | | Drug | | | Report | | | (12 | | | Mo.)PD | | | MP | | | query | | | found | | | no | | | report | | | .E.D. | | | Visit | | | Count | | | (12 | | | mo.)Fa | | | cility | | | | | | Visits | | | Low | | | Acuity | | | Good | | | [facility] | | | rd | | | Health | | | 4 0 | | | Provid | | | ence | | | St. | | | [facility] | | | Medica | | | l | | | Center | | | 1 0 | | | [facility] [place] | | | y | | | Hospit | | | al 2 0 | | | Total | | | 7 0 | | | Note: | | | Visits | | | | | | indica | | | te | | | total | | | known | | | visits | | | . | | | Medica | | | id Low | | | | | | Acuity | | | Dx | | | are | | | the | | | number | | | of | | | primar | | | y | | | diagno | | | ses on | | | the | | | Medica | | | id's | | | Low | | | Acuity | | | dx | | | list. | | | | | | Recent | | | | | | Emerge | | | ncy | | | Depart | | | ment | | | Visit | | | [place] | | | yDate | | | Facili | | | ty | | | City | | | State | | | Type | | | Diagno | | | ses or | | | Chief | | | | | | Compla | | | int | | | Nov 9, | | | 2019 | | | Provid | | | ence | | | [facility] | | [facility] | [place] | | | [place] | | | Emerge | | | ncy | | | poss | | | vomiti | | | ng | | | blood | | | Oct | | | 18, | | | 2019 | | | [facility] [place] | | | [facility]. | | | [place] | | | [place] | | | Emerge | | | ncy | | | | | | Attent | | | ion-de | | | ficit | | | hypera | | | ctivit | | | y | | | disord | | | er, | | | unspec | | | ified | | | type | | | | | | Nicoti | | | ne | | | depend | | | ence, | | | unspec | | | ified, | | | | | | uncomp | | | licate | | | d | | | Allerg | | | y | | | status | | | to | | | sulfon | | | amides | | | | | | status | | | | | | Other | | | nonmed | | | icinal | | | | | | substa | | | nce | | | allerg | | | y | | | status | | | | | | Pain | | | in | | | left | | | knee | | | | | | Allerg | | | y | | | status | | | to | | | penici | | | llin | | | | | | Sprain | | | of | | | unspec | | | ified | | | site | | | of | | | left | | | knee, | | | initia | | | l | | | encoun | | | ter | | | Other | | | long | | | term | | | (curre | | | nt) | | | drug | | | therap | | | y | | | Overex | | | ertion | | | from | | | prolon | | | ged | | | static | | | or | | | awkwar | | | d | | | postur | | | es, | | | init | | | Sep | | | 21, | | | 2019 | | | Good | | | [facility] | | | rd | | | Health | | | | | | [place] | | | [place] | | | Emerge | | | ncy | | | COUGH | | | EAR | | | PAIN | | | FEVER | | | | | | Otitis | | | | | | media, | | | | | | unspec | | | ified, | | | right | | | ear | | | | | | Acute | | | bronch | | | itis, | | | unspec | | | ified | | | Sep | | | 13, | | | 2019 | | | [facility] [place] | | | [facility]. | | | [place] | | | [place] | | | Emerge | | | ncy | | | Local | | | | | | infect | | | ion of | | | the | | | skin | | | and | | | subcut | | | aneous | | | | | | tissue | | | , unsp | | | | | | Attent | | | ion-de | | | ficit | | | hypera | | | ctivit | | | y | | | disord | | | er, | | | unspec | | | ified | | | type | | | | | | Allerg | | | y | | | status | | | to | | | sulfon | | | amides | | | | | | status | | | | | | Allerg | | | y | | | status | | | to | | | penici | | | llin | | | | | | Cellul | | | itis | | | of | | | right | | | lower | | | limb | | | | | | Other | | | nonmed | | | icinal | | | | | | substa | | | nce | | | allerg | | | y | | | status | | | | | | Nicoti | | | ne | | | depend | | | ence, | | | unspec | | | ified, | | | | | | uncomp | | | licate | | | d | | | Other | | | long | | | term | | | (curre | | | nt) | | | drug | | | therap | | | y Aug | | | 27, | | | 2019 | | | Good | | | [facility] | | | rd | | | Health | | | | | | [place] | | | [place] | | | Emerge | | | ncy | | | sore | | | throat | | | | | | Acute | | | pharyn | | | gitis, | | | | | | unspec | | | ified | | | Tu | | | 7, | | | 2019 | | | Good | | | [facility] | | | rd | | | Health | | | | | | [place] | | | [place] | | | Emerge | | | ncy | | | | | | WEAKNE | | | S | | | NAUSEA | | | | | | VOMITI | | | NG | | | Nausea | | | with | | | vomiti | | | ng, | | | unspec | | | ified | | | | | | Dizzin | | | ess | | | and | | | giddin | | | ess | | | May 3, | | | 2019 | | | Good | | | [facility] | | | rd | | | Health | | | | | | [place] | | [place] | | | Emerge | | | ncy | | | L | | | FLANK | | | PAIN | | | | | | Unspec | | | ified | | | abdomi | | | nal | | | pain | | | Recent | | | | | | Inpati | | | ent | | | Visit | | | [place] | | | yNo | | | record | | | ed | | | inpati | | | ent | | | visits | | | . Care | | | | | | TeamPr | | | ovider | | | | | | Specia | | | lty | | | Phone | | | Fax | | | Servic | | | e | | | Dates | | | ARMSTR | | | CHICA, | | | JENNIF | | | ER J, | | | PRACTICING UROLOGIST | | | Nurse | | | Practi | | | tioner | | | Sep | | | 16, | | | 2019 - | | | | | | Curren | | | t | | | THOMPS | | | ON, | | | NANO | | | TTE | | | L., | | | PA-C | | | Physic | | | dorothea | | | Assist | | | ant | | | (541) | | | [phone] | | | 17 | | | (541) | | | [phone] | | | 62 Dec | | | 4, | | | 2015 - | | | | | | Curren | | | t | | | NANO | | | TTE L | | | THOMPS | | | ON | | | Primar | | | y Care | | | | | | Curren | | | t | | | THOMPS | | | ON, | | | NANO | | | TTE L | | | Primar | | | y Care | | | (541) | | | | | | [phone] | | | 17 | | | (541) | | | [phone] | | | 70 Dec | | | 4, | | | 2015 - | | | | | | Curren | | | t | | | Irrigo | | | n | | | Medica | | | l | | | Clinic | | | | | | Primar | | | y Care | | | (541) | | | | | | [phone] | | | 80 | | | (541) | | | [phone] | | | 75 Dec | | | 4, | | | 2015 - | | | | | | Curren | | | t | | | Colle[facility] | | | tive | | | Portal | | | This | | | patien | | | t has | | | regist | | | ered | | | at the | | | | | | Provid | | | ence | | | St. | | | [facility] | | | Medica | | | l | | | Center | | | | | | Emerge | | | ncy | | | Depart | | | ment | | | For | | | more | | | inform | | | ation | | | visit: | | | | | | https: | | | //secu | | | re.col | | | lectiv | | | emedic | | | al.com | | | /notif | | | y/[email or web address] | | | 4a09-4 | | | 39c-43 | | | [email or web address] | | | c-[email or web address] | | | [email or web address] | | | 9e | | | PLEASE | | | NOTE: | | | 1. | | | Any | | | care | | | recomm | | | endati | | | ons | | | and | | | other | | | clinic | | | al | | | inform | | | ation | | | are | | | provid | | | ed as | | | guidel | | | yony | | | or for | | | | | | histor | | | ical | | | purpos | | | es | | | only, | | | and | | | provid | | | ers | | | should | | | | | | exerci | | | se | | | their | | | own | | | clinic | | | al | | | judgme | | | nt | | | when | | | provid | | | ing | | | care. | | | 2. | | | You | | | may | | | only | | | use | | | this | | | inform | | | ation | | | for | | | purpos | | | es of | | | treatm | | | ent, | | | paymen | | | t or | | | health | | | care | | | operat | | | ions | | | activi | | | ties, | | | and | | | subjec | | | t to | | | the | | | limita | | | tions | | | of | | | applic | | | able | | | Collec | | | tive | | | Polici | | | es. | | | 3. | | | You | | | should | | | | | | consul | | | t | | | direct | | | ly | | | with | | | the | | | organi | | | zation | | | that | | | provid | | | ed a | | | care | | | guidel | | | ine or | | | other | | | | | | clinic | | | al | | | histor | | | y with | | | any | | | questi | | | ons | | | about | | | additi | | | onal | | | inform | | | ation | | | or | | | accura | | | cy or | | | comple | | | teness | | | of | | | inform | | | ation | | | provid | | | ed.? | | | 2019 | | | [facility] | | | tive | | | [facility] | | | l | | | [employer] | | | [facility] | | | [employer] | | | - | | | [email or web address] | | | llecti | | | vemedi | | | [email or web address] | | | m | +---+--------+ documented in this encounter Visit Diagnoses + + | Diagnosis | + + | Patient left after triage - Primary | + + documented in this encounter
--- OUTSIDE RECORDS SUMMARY | ~2019-08-24 | XMS | Encounter Summary ---
Demographics + + + | Address | [address] | | | [place] [address] | + + + | Home Phone | | + + + | Preferred Language | Unknown | + + + | Marital Status | Single | + + + | Jainism Affiliation | LUT | + + + | Race | White | + + + | Ethnic Group | Not or | + + + Author + + + | Author | [facility] | + + + | Organization | [facility] | + + + | Address | Unknown | + + + | Phone | Unavailable | + + + Support + + + + + | Name | Relationship | Address | Phone | + + + + + | Grisel Marc | ECON | [address] | | | | | [place] | | | | | [address] | | + + + + + Care Team Providers + +------+ + | Care Cadmium Burner Name | Role | Phone | + +------+ + | Adilia Bob SHELTERED WORKSHOP EXECUTIVE DIRECTOR | PCP | | + +------+ + Reason for Visit Consultation (Routine) +--------+--------+ + + + + | Status | Reason | Specialty | Diagnoses / | Referred By | Referred To | | | | | Procedures | Contact | Contact | +--------+--------+ + + + + | Closed | | Infectious | Diagnoses | Mary | Cisco, | | | | Disease | 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 | | | | | (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) | Rd | [address] | | | | | Septic | [place], [place] | [facility] | | | | | 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[address] | [place] [address] | | | | | knee, left | | Phone: | | | | | ([facility]) | | [phone] | | | | | Procedures | | Fax: | | | | | CONSULT TO | | [phone] | | | | | INFECTIOUS | | | | | | | DISEASE | | | +--------+--------+ + + + + Encounter Details +--------+---------+ + + + | Date | Type | Department | Care Team | Description | +--------+---------+ + + + | 08/25/ | Office | Infectious | Lavinia Peck, | Osteomyelitis of | | 2013 | Visit | [facility] | MD [address] | knee region ([facility]) | | | | Floor [address] | (Primary Dx) | | | | [address] | [place] [address] | | | | | Mailcode: [id number] | [phone] | | | | | [facility] | | | | | | [place], [place] | | | | | | [address] | | | | | | [phone] | | | +--------+---------+ + + + [...] documented as of this encounter Progress Notes Lavinia Peck MD - 08/25/2012 10:10 PM [facility] Clinic Date: 08/25/2012 Clinic: Infectious Disease I have been asked to see Sandy by Dr. Hernandez for consideration of management of likely tibial osteomyelitis. This delightful 21-year-old young lady had a couple of weeks of knee pain in November 2011 and then was doing rodeo on her horse going around barrels, and she was leaning out away from the barrels. Her legs spontaneously broke with pathological fracture. She had a tibial plateau fracture. This was mended with a screw and cement. However, the wounds then never healed and drained. She has subsequently had surgery. She had the first surgery on December 09, January 09, and then April 14 was the last one. Apparently, group B strep and MSSA have grown out of it in the past, but we will need to confirm this. Since that time intermittently spits out pieces of calcium. She has no systemic symptoms of this. No fevers, chills, or sweats, and she is otherwise well. She gives no history of excessive infections as a child, however, did have some sinus infections. She does have unprotected sex. Previous Medical History: Asthma and as above. Allergies: SHE GETS HIVES TO SULFA. She is not allergic to penicillin. SHE JUST GETS NAUSEA AND VOMITING WITH AMOXIL. Examination: She is a well-looking lady with a lot of acne on her chin. Her leg has an ulcer just below the kneecap and has an area of excoriated and unhealthy skin around it. It looks like to me like a draining sinus tract. Otherwise, her knee is swollen. Otherwise, there is some wasting of the calf muscles. Otherwise looks okay. She has a limited range of motion of her knee. Labs: From August 06 revealed a sedimentation rate of 14 and a CRP of 0.5. Otherwise, she has a slightly increased eosinophil number of 0.6 but otherwise looks normal. 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 She does give a history of having had a tooth decay and having had a tooth out 6 months before the episode in her leg. She is, otherwise, systemically well. We discussed bone infection. I explained how bacteria can make a slime and go to sleep unde r it. They also like to hide on any bone that is devitalized or on prosthetic material. I ex plained that initially we kill the bulk of bacteria, but antibiotics are needed for a long t matheus so that we can kill any remaining bacteria when they wake up. I explained that there is no set duration of antibiotic treatment for bone infection. I explained that we usually sta rt with 6 weeks, but the duration will be customized to each patient according to their clin ical progress. My biggest question from looking at her MRI scan is whether or not this extends up into the joint and how damaged the joint is. On discussions with Dr. Hernandez who I saw her with, the plan is as follows: 1. She will go to the OR, and we will take biopsies and synovial aspirate put into blood culture bottles. 2. She will then have the area of her tibia reamed out, and antibiotic-based cement will be placed in there. We will place the PICC line to start her on IV antibiotics. Please give her ceftriaxone 2 g post cultures being taken, and the plan will be to discharge her on ceftriaxone 2 g IV q.24 h. pending culture results. We spent a long time discussing bone infection and discussing the issues with having had an infection in the joint at a very young age. However, we will see how she does. Lavinia Peck M.D., Ph.D. MALLORY / HYACINTH [id number] / [id number] / [id number] / Lavinia Lam MD - 08/25/2012 9:30 AM PST This office note has been dictated. [facility] #: [id number] I spent 45 minutes with the patient of which greater than 50% was spent counseling the shaina entas described in the body of my note. documented in this e ncounter Plan of Treatment Not on filedocumented as of this encounter Results HIV-1,2 AB/HIV-1 P24 AG SCRN, SERUM (08/25/2012 10:01 AM PST) + + + + + + | Component | Value | Ref Range | Performed | Pathologist | | | | | At | Signature | + + + + + + | HIV-1,2 | Nonreactive | Nonreactive | [facility] | | | AB/HIV-1 | | | LABORATORY | | | P24 AG | | | SERVICES, | | | SCREEN | | | SPECIAL IMM | | | | | | + COAG | | + + + + + + + + | Specimen | + + | Blood - Blood | + + + + + | Narrative | Performed At | + + + | HIV-1 p24 Ag and HIV-1,2 Ab not detected. | [facility] | | | LABORATORY | | | SERVICES, | | | SPECIAL IMM + | | | COAG | + + + + + + + + | Performing | Address | City/State/Zipcode | Phone Number | | Organization | | | | + + + + + | [facility] | [address] | [place] [address] | | | SERVICES, SPECIAL | [address] | | | | IMM + COAG | | | | + + + + + IGG SUBCLASSES I-IV, SERUM (08/25/2012 10:01 AM PST) + + + + + + | Component | Value | Ref Range | Performed | Pathologist | | | | | At | Signature | + + + + + + | IGG I | 1110Comment: REFERENCE | 240 - 1118 | [facility] | | | SUBCLASS | INTERVAL: Immunoglobulin | mg/dL | REG UNIV | | | | G Subclass 1 Access | | PTH - INTFC | | | | complete set of age- | | | | | | and/or | | | | | | gender-specificreference | | | | | | intervals for this test | | | | | | in the [facility] | | | | | | LaboratoryTest Directory | | | | | | ([employer]). | | | | + + + + + + | IGG 2 | 323Comment: REFERENCE | 124 - 549 mg/dL | [facility] | | | SUBCLASS | INTERVAL: Immunoglobulin | | REG UNIV | | | | G Subclass 2 Access | | PTH - INTFC | | | | complete set of age- | | | | | | and/or | | | | | | gender-specificreference | | | | | | intervals for this test | | | | | | in the [facility] | | | | | | LaboratoryTest Directory | | | | | | ([employer]). | | | | + + + + + + | IGG III | 87Comment: REFERENCE | 21 - 134 mg/dL | [facility] | | | SUBCLASS | INTERVAL: Immunoglobulin | | REG UNIV | | | | G Subclass 3 Access | | PTH - INTFC | | | | complete set of age- | | | | | | and/or | | | | | | gender-specificreference | | | | | | intervals for this test | | | | | | in the [facility] | | | | | | LaboratoryTest Directory | | | | | | ([employer]). | | | | + + + + + + | IGG IV | 66Comment: INTERPRETIVE | 7 - 89 mg/dL | [facility] | | | SUBCLASS | INFORMATION: For | | REG UNIV | | | | Immunoglobulin G | | PTH - INTFC | | | | Subclasses 1 - 4 The | | | | | | total IgG (mg/dL) can be | | | | | | derived by the sum of | | | | | | thesubclasses IgG1, | | | | | | IgG2, IgG3 and IgG4 | | | | | | values. However, | | | | | | aconfirmatory and more | | | | | | precise total IgG is | | | | | | available by | | | | | | thenephelometric method | | | | | | of total IgG (Test # | | | | | | [id number]). Access | | | | | | complete set of age- | | | | | | and/or | | | | | | gender-specificreference | | | | | | intervals for this test | | | | | | in the [facility] | | | | | | LaboratoryTest Directory | | | | | | ([employer] Web Services).Performed | | | | | | by [facility] | | | | | | [facility] | | | | | | [place] [address] | | | | | | [phone].[email or web address]. | | | | | | [facility], Magy Fernandez, | | | | | | , Lab. Director | | | | + + + + + + + + | Specimen | + + | Blood - Blood | + + + + + + + | Performing | Address | City/State/Zipcode | Phone Number | | Organization | | | | + + + + + | [facility] | [address] | [place], [place] | | | UNIV PTH - INTFC | | [address] | | + + + + + IGA, SERUM (08/25/2012 10:01 AM PST) + +-------+ + + + | Component | Value | Ref Range | Performed | Pathologist | | | | | At | Signature | + +-------+ + + + | IGA SERUM | 196 | 70 - 400 mg/dL | [facility] | | | | | | [facility] | | | | | | [place] | | + +-------+ + + + + + | Specimen | + + | Blood - Blood | + + + + + + + | Performing | Address | City/State/Zipcode | Phone Number | | Organization | | | | + + + + + | [facility] | [address] | [place] [address] | | | [place] | | | | + + + + + documented in this encounter Visit Diagnoses + + | Diagnosis | + + | Osteomyelitis of knee region (HCC) - Primary Unspecified osteomyelitis, lower leg | + + documented in this encounter"
--- OUTSIDE RECORDS SUMMARY | ~2019-08-24 | XMS | Encounter Summary ---
Demographics + + + | Address | [address] | | | [place] [address] | + + + | Home Phone [...] [place] | | | | | [address] | | + + + + + Care Team Providers + +------+ + | Care Recruitment Intern Name | Role | Phone | + +------+ + | Adilia Bob | PCP | | + +------+ + Reason for Visit + + + | Reason | Comments | + + + | Medication | | | management | | + + + Encounter Details +--------+ + + + + | Date | Type | Department | Care Team | Description | +--------+ + + + + | 09/04/ | Rolloff Truck Driver | Infectious | [facility] | | | 2012 | | [facility] | [place] | | | | | Floor [address] | | | | | | [address] | | | | | | Mailcode: [id number] | | | | | | [facility] | | | | | | [place], [place] | | | | | | [address] | | | | | | [phone] | | | +--------+ + + + [...]
--- OUTSIDE RECORDS SUMMARY | ~2019-08-24 | XMS | Clinical Summary ---
Demographics + + + | Address | [address] | | | [place] [address] | + + + | Home Phone | | + + + | Preferred Language | Unknown | + + + | Marital Status | | + + + | Caodaism Affiliation | Unknown | + + + | Race | Unknown | + + + | Ethnic Group | Unknown | + + + Author + + + | Author | [facility] | | | and [place] | + + + | Organization | [facility] | | | [...] Team Providers + +------+ + | Care Lamination Technician Name | Role | Phone | + +------+ + | Hina Peterson PA-C | PCP | | + +------+ + Allergies + + [...] | Medium | 09/14/19 | | | | | [...] + + + + + | Adhesive & Tape | Rash | Medium | 09/14/19 | Rash, blistering | | | | | 19 | | + + + + + + Medications + + + +---------+------+------+-------+ | Medication | Sig | Dispensed | Refills | Star | End | Statu | | | | | | t | Date | s | | | | | | Date | | | + + + +---------+------+------+-------+ | albuterol (PROAIR | Inhale 2 puffs into | | 0 | 12/0 | | Activ | | HFA) 90 mcg/puff | the lungs. | | | 3/20 | | e | | inhaler | | | | 18 | | | + + + +---------+------+------+-------+ | methocarbamol | Take 750 mg by mouth | | 0 | 02/0 | | Activ | | (ROBAXIN) 750 mg | 4 (four) times | | | 4/20 | | e | | tablet | daily. | | | 19 | | | + + + +---------+------+------+-------+ | MANUAL SELECTION | Med Name: keto diet | | 0 | 02/0 | | Activ | | NEEDED - UNABLE TO | supplement | | | 11/28 | | e | | FIND | | | | 19 | | | + + + +---------+------+------+-------+ Active Problems Not on file Encounters +--------+ + + + + | Date | Type | Specialty | Care Team | Description | +--------+ + + + + | 06/19/ | Emergency | Emergency Medicine | No, Physician | Patient left after | | 2019 | | | | triage (Primary Dx) | +--------+ + + + + from Last 3 Months Family History + + +------+ + | Medical History | Relation | Name | Comments | + + +------+ + | ADD/ADHD | Brother | | | + + +------+ + | Diabetes, IDDM | Brother | | | + + +------+ + | Coronary artery | Maternal | | | | disease | Aunt | | | + + +------+ + | Other (see comment) | Maternal | | Diabetes Mellitus II | | | Aunt | | | + + +------+ + | ADD/ADHD | Sister | | | + + +------+ + + +------+ + + | Relation | Name | Status | Comments | + +------+ + + | Brother | | Alive | | + +------+ + + | Brother | | Alive | | + +------+ + + | Brother | | Alive | | + +------+ + + | Brother | | | | + +------+ + + | Brother | | | | + +------+ + + | Father | | Alive | | + +------+ + + | Maternal Aunt | | | AR | | | | (Age | | | | | 64) | | + +------+ + + | Maternal Aunt | | | | + +------+ + + | Maternal Aunt | | | | + +------+ + + | Mother | | Alive | | + +------+ + + | Sister | | Alive | | + +------+ + + | Sister | | | | + +------+ + + Social History + +-------+ +--------+------+ [...] | | | | Screening (Pap) | 1 | | | + + + + + | Vaccine: Influenza | | | | | (#1) | 9 | | | + + + + + | Vaccine: | | 07/27/2015, 05/10/1995, | | | Dtap/Tdap/Td (7 - | 5 | 04/09/1991, Additional history | | | Td) | | exists | | + + + + + Procedures + +--------+ + + [...] | | n - | | | | | | 2018 | | | 1:52 | | | [...] | | | FICATI | | | ON? | | | | | | 9 | | | 13:51? | | | MONICO | | | , | | | DANEEL | | | | | | M?MRN: | | | | | | [id number] | | | [id number] | | | riteri | | | [...] | | | d: | | | 02/15/19 | | | 9:57 | | | [...] | | | St. | | | [place] | | | y | | | [...] | | | St. | | | [place] | | | y H. | | [...] | | | St. | | | [place] | | | y H. | | [...] | | ER J, | | | DIRECTOR NETWORK DEVELOPMENT | | | Nurse | | | [...] [email or web address] | | | m | +---+--------+ from Last 3 Months Results Not on filefrom Last 3 Months Insurance + +--------+ +--------+ +---------+--------+ | Payer | Benefi | Subscriber | Effect | Phone | Address | Type | | | t Plan | ID | cindi | | | | | | / | | Dates | | | | | | Group | | | | | | + +--------+ +--------+ +---------+--------+ | [employer] | [employer] | [id number] | | [phone] | | Medica | | MEDICAID HMO | HEALTH | | 019-Pr | 1 | | id | | | MDCD | | esent | | | | | | [place] | | | | | | + +--------+ +--------+ +---------+--------+ + +--------+ +--------+ + + | Guarantor [...] [address] | | | al/Fam | | 1991 | [phone] | [place] | | | nayla | | | 2 (Home) | [address] | + +--------+ +--------+ + + Advance Directives + + + + + | Type | Date Recorded | Patient | Explanation | | | | Lamination Technician | | + + + + + | Power of | | | | | Student Officer | | | | + + + + + | Advance | 06/19/2019 2:16 | | | | Directive | PM | | | + + + + +
--- OUTSIDE RECORDS SUMMARY | ~2019-08-24 | XMS | Encounter Summary ---
Demographics + + + | Address | [address] | | | [place] [address] | + + + | Home Phone | | + + + | Preferred Language | Unknown | + + + | Marital Status | Single | + + + | Confucianist Affiliation | LUT | + + + [...] [place] | | | | | [address] | | + + + + + Care Team Providers + +------+ + | Care Mixed Livestock Farm Worker Name | Role | Phone | + +------+ + | Hina Peterson | PCP | | + +------+ + Encounter Details +--------+--------+ + + + | Date | Type | Department | Care Team | Description | +--------+--------+ + + + | 06/25/ | Travel [...]
--- OUTSIDE RECORDS SUMMARY | ~2019-08-24 | XMS | Encounter Summary ---
Demographics + + + | Address | [address] | | | [place] [address] | + + + | Home Phone | | + + + | Preferred Language | Unknown | + + + | Marital Status | Single | + + + | Uatsdin Affiliation | LUT | + + + [...] + | Grisel Marc | ECON | [address] | | | | | [place] | | | | | [address] | | + + + + + Care Team Providers + +------+ + | Care Sales Donor Recruitment Representative Name | Role | Phone | [...] | | | Orthopaedic Surgery | [place], [place] | | | | | [address] | [address] | | | | | [place], [place] | [phone] | | | | | [address] | | | | | | [phone] | | | +--------+ + + + [...] | + + + + + | [facility] | | [place] [address] | [phone] | | [facility] | Streets | [...] + + | [place] | [address] | [place] [address] | [phone] | | [facility] | Streets | | | + + + + + documented in this encounter Visit Diagnoses + + | Diagnosis | + + | Osteomyelitis of knee region (HCC) - Primary Unspecified osteomyelitis, lower leg | + + documented in this encounter"
--- OUTSIDE RECORDS SUMMARY | ~2019-08-24 | XMS | Encounter Summary ---
Demographics + + + | Address | [address] | | | [place] [address] | + + + | Home Phone [...] [place] | | | | | [address] | | + + + + + Care Team Providers + +------+ + | Care Fourdrinier Operator Name | Role | Phone | [...] | +--------+ + + + + | 09/07/ | Director Post | Infectious | [facility] | | | 2012 | | [facility] | [place] | | | | | Floor [address] | | | | | | [address] | | | | | | Mailcode: [id number] | | | | | | [facility] | | | | | | [place], [place] | | | | | | [address] | | | | | | [phone] | | | +--------+ + + + [...]
--- OUTSIDE RECORDS SUMMARY | ~2019-08-24 | XMS | Encounter Summary ---
Demographics + + + | Address | [address] | | | [place] [address] | + + + | Home Phone [...] + + + | Author | [facility] | + + + | Organization | [facility] | + + + | Address | Unknown | + + + | Phone | Unavailable | + + + Support + + + + + | Name | Relationship | Address | Phone | + + + + + | Grisel Marc | ECON | [address] | | | | | [place] | | | | | [address] | | + + + + + Care Team Providers + +------+ + | Care Assistant Food Service Director Name | Role | Phone | [...] region (HCC) | | | | at [facility] 3rd Floor | | | | | | [address] | | | | | | [address] [place], [place] | | | | | | [address] | | | | | | [phone] | | | +--------+------+ + + + [...] [facility] | [address] | [place] [address] | | | MERCEDES, ELLIE | [address] | | | + [...] - | | | | | | [place] | | + +-------+ + + + + + | Specimen | + + | Blood - Blood | + + + + + + + | Performing | Address | City/State/Zipcode | Phone Number | | Organization | | | | + + + + + | [facility] | [address] | [place] [address] | | | [place] | | | [...] | + + + + + | [facility] | [address] [facility] | [place] [address] | | | SERVICES, CORE | [address] [...] | | | LABORATORY | | | [place] | | | SERVICES, | | | [...] | + + + + + | [facility] | [address] | [place] [address] | | | SERVICES, CORE | [address] | | | + + + + + documented in this encounter Visit Diagnoses + + | Diagnosis | + + | Osteomyelitis of knee region (HCC) Unspecified osteomyelitis, lower leg | + + documented in this encounter"
--- OUTSIDE RECORDS SUMMARY | ~2019-08-24 | XMS | Encounter Summary ---
Demographics + + + | Address | [address] | | | [place] [address] | + + + | Home Phone [...] + | Grisel Marc | ECON | [address] | | | | | [place] | | | | | [address] | | + + + + + Care Team Providers + +------+ + | Care Hand Potter Name | Role | Phone | + +------+ + | Hina Peterson | PCP | | + +------+ + Reason for Referral Physical Therapy (Routine) +--------+--------+ + + + + | Status | Reason | Specialty | Diagnoses / | Referred By | Referred To | | | | | Procedures | Contact | Contact | +--------+--------+ + + + + | Closed | | Physical | Diagnoses | Nicolas, | McMc Pt We | | | | Therapy | Patellar | Cinthya Presley MD | [address] | | | | | dislocation, | [address] | [address] | | | | | right, | [address] | [place], | | | | | initial | [place], | [place] [address] | | | | | encounter | [place] | Phone: | | | | | Procedures | [address] | [phone] | | | | | PHYSICAL | Phone: | Fax: | | | | | THERAPY | [phone] | [phone] | | | | | REFERRAL | Fax: | | | | | | | [phone] | | +--------+--------+ + + + + Reason for Visit + + + | Reason | Comments | + + + | Knee pain | Right Knee Pain | + + + Consultation (Routine) +--------+--------+ [...] | Pain in | Hina Johnson, | Cinthya Presley MD | | | | | right knee | [address] | [address] | | | | | | [address] [place] | | | | | | [place], | [place] | | | | | | [place] [address] | [address] | | | | | | Phone: | Phone: | | | | | | [phone] | [phone] | | | | | | Fax: | Fax: | | | | | | [phone] | [phone] | +--------+--------+ + + + + Encounter Details +--------+---------+ + + + | Date | Type | Department | Care Team | Description | +--------+---------+ + + + | 12/05/ | Office | [facility] | Cinthya Nicolas, | Acute pain of right | | 2016 | Visit | Sports Medicine & | MD [address] | knee (Primary Dx); | | | | Orthopaedic Surgery | Blvd [place] | Patellar | | | | [address] | [address] | dislocation, right, | | | | [address] | [phone] | initial encounter | | | | [place] | | | | | | [address] | | | | | | [phone] | | | +--------+---------+ + + + [...] + + + | Blood Pressure | 90/60 | 12/06/2015 3:05 PM | left arm lg adult | | | | PDT | cuff | + + + + + | Pulse | 87 | 12/06/2015 3:05 PM | | | | | PDT | | + + + + + | Temperature | - | - | | + + + + + | Respiratory Rate | - | - | | + + + + + | Oxygen Saturation | 99% | 12/06/2015 3:05 PM | | | | | PDT | | + + + + + | Inhaled Oxygen | - | - | | | Concentration | | | | + + + + + | Weight | 80.3 kg (177 lb) | 12/06/2015 3:05 PM | | | | | PDT | | + + + + + | Height | 170.2 cm (5' 7") | 12/06/2015 3:05 PM | | | | | PDT | | + + + + + | Body Mass Index | 27.72 | 12/06/2015 3:05 PM | | | | | PDT | | + + + + + documented in this encounter Patient Instructions Patient Instructions Cinthya Nicolas MD - 12/06/2015 3:41 PM PDTRight knee cap dislocate d laterally, stretching medial supports; go to PT for VMO and especially, CORE strengthening , wear sleeve, follow up as needed, especially if it goes out repeatedly, in which case you' d need to consider a surgery to reconstruct the stretched ligaments. documented in this encounter Progress Notes Cinthya Nicolas MD - 12/06/2015 3:08 PM PDTFormatting of this note might be different fr om the original. Reason for visit; Patient presents with: Knee pain: Right Knee Pain Onset/Date of Surgery; (DOI: 08/27/15 getting off dads boat and injured right knee. States, "Knee cap slid to othe side." Denies any surgery to that knee) Pain score; Pain Score: 02 - Mild Vital signs; BP 90/60[left arm lg adult cuff[ | Pulse 87 | Ht 1.702 m (5' 7") | Wt 80.287 k g (177 lb) | SpO2 99% | BMI 27.72 kg/(m^2) S: Mid aug was going down a level in boat wi righ knee flexed and left extended when felt R patelly slip and noted large lump on medial side of knee. UT move. Made call then gradua edin moved knee and it went back in place. Swelled. Never had it happen before or since. H owever, gets sensation of patella sliding occasionally but not if wearing a knee sleeve. Pa in is medial. Has chronic saga of left knee probs; wears brace. No pain in right when it's in place. Wonders what her options are. Here with mom. O: No pain behavior. Left knee in brace. Right knee wi slight effusion, +5 of hyperexten jian, full flex wi normal strength, stab, sensation. Q angle normal. Hips normal. Neg roberto rehension in extension but some guarding when performed in 45 flex. No increased glide/tilt . Distally, no swelling. X: 4 views: mild pat fernando otherwise normal including merchant A: R patellar instability with probably one actual occurance P: With first time traumatic occurrence and no osteolchondral fx, there is a decent chance she will do well with conservative treatment. I rec PT for quads and especially, core, sle romain, and if recurrent instability persists, consider surgical repair/reconstruction of MPFL or realignment or both. F/U prn. Past Medical & Surgical History: Past medical [...] form. See scanned document for refe crow. Social history: Sanyd reports that she has been smoking Cigarettes. She has a .5 pack-year smoking hist ory. She has never used smokeless tobacco. She reports that she drinks alcohol. She reports that she does not use illicit drugs.. Allergies: Allergies as of 12/06/2015 - Fully Reviewed 07/14/2015 Allergen Reaction Noted Amoxicillin Diarrhea, Hives, Rash, Nausea, and Nausea and Vomiting 08/06/2012 Latex 09/29/2012 Sulfa (sulfonamide antibiotics) Hives 08/06/2012 Current Medications: Current Outpatient Prescriptions Medication albuterol 90 mcg/actuation Inhalation HFA Aerosol Inhaler cyclobenzaprine 10 mg oral tablet medroxyPROGESTERone 150 mg/mL intramuscular suspension methylphenidate 10 mg oral tablet No current facility-administered medications for this visit. [...] X-RAY KNEE 3 VIEWS | Routin | 12/06/2015 | Acute pain of | Results for this | | RIGHT | e | 3:56 PM | right knee | procedure are in the | | | | PDT | | results section. | + +--------+ + + + documented in this encounter Results X-RAY KNEE 3 VIEWS RIGHT (12/06/2015 3:56 PM PDT) + + | Specimen | + + | | + + + + + | Narrative | Performed At | + + + | [address] [place] [address] | [facility] | | [place] [address] | DEPARTMENT OF | | [phone] Name: SANDY MARC Phys: | RADIOLOGY | | CINTHYA N[place]AS : 1990 Sex: F | | | CSN: [id number] MR# [id number] Exam Date: | | | 12/06/2015 EXAM: X-RAY KNEE 3 VIEWS RIGHT CLINICAL HISTORY: | | | 25-year-old female status post injury to knee cap. COMPARISON: | | | None available. TECHNIQUE: AP, lateral and sunrise films were | | | obtained. FINDINGS: There are no signs of fracture, joint | | | effusion or lipohemarthrosis. Right patella is unremarkable. There | | | is a brace artifact around the left knee on sunrise film. | | | IMPRESSION: No evidence of fracture. REPORT SIGNED IN OTHER | | | VENDOR SYSTEM 12/06/2015 Reported by: Magno Anderson MD | | | Electronically signed by: Magno Anderson MD Transcribed Date/Time: | | | 12/06/2015 15:56 Leather Tacker: YORDY | | + + + + + | Procedure Note | + + | Interface, Radiology Results - 12/06/2015 4:01 PM PDT [address] | | [address] [place] [address] | | Name: SANDY MARC Phys: CINTHYA NICOLAS : 1990 Sex: F | | CSN: [id number] MR# [id number] Exam Date: 12/06/2015 EXAM:X-RAY KNEE 3 VIEWS | | RIGHT CLINICAL HISTORY:25-year-old female status post injury to knee cap. | | COMPARISON:None available. TECHNIQUE:AP, lateral and sunrise films were obtained. | | FINDINGS:There are no signs of fracture, joint effusion or lipohemarthrosis.Right | | patella is unremarkable. There is a brace artifact around theleft knee on sunrise film. | | IMPRESSION:No evidence of fracture. REPORT SIGNED IN OTHER VENDOR SYSTEM 12/06/2015 | | Reported by: Magno Anderson MD Electronically signed by: Magno Anderson MD | | Transcribed Date/Time: 12/06/2015 15:56Transcriptionist: FLUENCY | | | |EXAM: | |X-RAY KNEE 3 VIEWS RIGHT | | | |CLINICAL HISTORY: | |25-year-old female status post injury to knee cap. | | | |COMPARISON: | |None available. | | | |TECHNIQUE: | |AP, lateral and sunrise films were obtained. | | | |FINDINGS: | |There are no signs of fracture, joint effusion or lipohemarthrosis. | |Right patella is unremarkable. There is a brace artifact around the | |left knee on sunrise film. | | | |IMPRESSION: | |No evidence of fracture. | | | | | | REPORT SIGNED IN OTHER VENDOR SYSTEM 12/06/2015 | |Reported by: Magno Anderson MD | | | |Electronically signed by: Magno Anderson MD | | | |Transcribed Date/Time: 12/06/2015 15:56 | |Leather Tacker: FLUENCY | | | | | | [...] + | Diagnosis | + + | Acute pain of right knee - Primary | + + | Patellar dislocation, right, initial encounter | + + documented in this encounter
--- OUTSIDE RECORDS SUMMARY | ~2019-08-24 | XMS | Encounter Summary ---
Demographics + + + | Address | [address] | | | [place] [address] | + + + | Home Phone | | + + + | Preferred Language | Unknown | + + + | Marital Status | Single | + + + | Baptism Affiliation | LUT | + + + | Race | White | + + + | Ethnic Group | Not or | + + + Author + + + | Author | [facility] | + + + | Organization | [facility] | + + + | Address | Unknown | + + + | Phone | Unavailable | + + + Support + + + + + | Name | Relationship | Address | Phone | + + + + + | Grisel Marc | ECON | [address] | | | | | [place] | | | | | [address] | | + + + + + Care Team Providers + +------+ + | Care Black Ash Worker Name | Role | Phone | [...] | | | | necrosis of | [facility] | [place] | | | | | bone) ([facility]) | Rd | [address] | | | | | Septic | [place], [place] | [place], | | | | | 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[address] | [place] [address] | | | | | knee, left | | Phone: | | | | | ([facility]) | | [phone] | | | | | Procedures | | Fax: | | | | | CONSULT TO | | [phone] | | | | | INFECTIOUS | [...] | Floor [address] | | (Primary Dx); | | | | [address] | | Encounter for | | | | Mailcode: [id number] | | long-term (current) | | | | [facility] | | use of antibiotics | | | | [facility] [place] | | | | | | [address] | | | | | | [phone] | | | +--------+---------+ + + + [...] DISEASES CLINIC FOLLOW UP Primary Care Physician: [facility] [address] [place] [address], [address] [place] [address] Ms. Marc presents to Infectious Diseases Clinic regarding scheduled follow up. The patient was seen in conjunction with Dr. Alton Hernandez today. The following history was obtained prior to today's OPAT visit from my own review of the bethany perez's recent [facility] hospital admission, including but not limited to [...] doing rodeo on her horse going around [place], and she was leaning out away from [place]. Her legs spontaneously broke with pathological fracture. [...] placement of antibiotic beads 09/03/2012: HIRAM Silva [facility] Operative Findings: We began by performing a [...] intramedullary canal. We then used our canal remote medical coder to thoroughly washout the intramedullary canal as [...] She was seen in the ER in [place] and had a CT Thor ax that [...] care provider and surgeon. Brigid Hardy PA-C [facility] Department of Infectious Diseases Outpatient IV Antibiotic Therapy Clinic (OPAT) [phone] Pager ID: [phone] [facility] Mail Code L457 [place] [address] documented in this encounter Plan of Treatment Not on filedocumented as of this encounter Visit Diagnoses + + | Diagnosis | + + | Osteomyelitis of knee region (HCC) - Primary Unspecified osteomyelitis, lower leg | + + | Encounter for long-term (current) use of antibiotics | + + documented in this encounter
--- OUTSIDE RECORDS SUMMARY | ~2019-08-24 | XMS | Encounter Summary ---
Demographics + + + | Address | [address] | | | [place] [address] | + + + | Home Phone | | + + + | Preferred Language | Unknown | + + + | Marital Status | Single | + + + | Judaism Affiliation | LUT | + + + | Race | White | + + + | Ethnic Group | Not or | + + + Author + + + | Author | [facility] | + + + | Organization | [facility] | + + + | Address | Unknown | + + + | Phone | Unavailable | + + + Support + + + + + | Name | Relationship | Address | Phone | + + + + + | Grisel Marc | ECON | [address] | | | | | [place] | | | | | [address] | | + + + + + Care Team Providers + +------+ + | Care Computer Art Instructor Name | Role | Phone | + [...] knee) | | 2012 | | [address] | | | | | | [address] | | | | | | Mailcode: [id number] | | | | | | [facility] | | | | | | [place], [place] | | | | | | [address] | | | | | | [phone] | | | +--------+ + + + [...]
--- OUTSIDE RECORDS SUMMARY | ~2019-08-24 | XMS | Encounter Summary ---
Demographics + + + | Address | [address] | | | [place] [address] | + + + | Home Phone [...] Author + + + | Author | [facility] | + + + | Organization | [facility] | + + + | Address | Unknown | + + + | Phone | Unavailable | + + + Support + + + + + | Name | Relationship | Address | Phone | + + + + + | Grisel Marc | ECON | [address] | | | | | [place] | | | | | [address] | | + + + + + Care Team Providers + +------+ + | Care Cat And Dog Bather Name | Role | Phone | + [...] | | | | | | [place], | | | | | | [place] [address] | | | | | | [phone] | | | +--------+ + + + [...]
--- OUTSIDE RECORDS SUMMARY | ~2019-08-24 | XMS | Encounter Summary ---
Demographics + + + | Address | [address] | | | [place] [address] | + + + | Home Phone | | + + + | Preferred Language | Unknown | + + + | Marital Status | Single | + + + | Buddhist Affiliation | LUT | + + + [...] [place] | | | | | [address] | | + + + + + Care Team Providers + +------+ + | Care Wound Care Rn Name | Role | Phone | + [...] 09/02/ | Anesthesia | 6A Intra Op 3181 | Shakila Burgos MD | | | 2013 | Event | [address] | [address] | | | | | [facility] | [address] | | | | | Hospital Admitting | [place], [place] | | | | | Desk Located on the | [address] | | | | | 9th floor | [phone] | | | | | [place], [place] | | | | | | [address] | Viktoriya Jennings MD | | | | | | [address] | | | | | | [place] [facility] | | | | | | [place] [address] | | | | | | [phone] | | | | | | | | +--------+ + + + + Anesthesia Record + + + + + | Procedure Name | Responsible | Anesthesia Start | Anesthesia Stop Time | | | Anesthesiologist | Time | | + + + + + | IRRIGATION AND | Shakila Burgos MD | 09/02/12 1407 | 09/02/12 3025 | | DEBRIDEMENT OF LEFT | | [...] RETIRE | 09/02/12; 1120; 09/03/12; 1934; | 09/02/12 112 by | 09/03/121934 by | | D [...] | +---+---+ + +-------+ +--------+---+---+ | HYDROmorphone (aka DILAUDID) | Given | 09/02/19 | 0.2 [...] | | Until 09/02/12 at 1749 | iology | | | [...] +---+---+ + +-------+ +------+---+---+ | ondansetron (aka ZOFRAN) | Given | 09/02/19 | 4 mg [...] 40 mg | | | | Starting Fri09/02/12 at 1419, | | 13 3:01 | | | | | Until Fri09/02/12 at 1749 | | PM PST | | | | + +-------+ +-------+---+---+ +-------+ +--------+---+---+ | Given | 09/02/19 | 150 mg | | | | | 13 2:19 | | | | | | PM PST | | | | +-------+ +--------+---+---+ +---+---+ | | | +---+---+ documented in this encounter"
--- OUTSIDE RECORDS SUMMARY | ~2019-08-24 | XMS | Encounter Summary ---
Demographics + + + | Address | [address] | | | [place] [address] | + + + | Home Phone [...] Author + + + | Author | [facility] | + + + | Organization | [facility] | + + + | Address | Unknown | + + + | Phone | Unavailable | + + + Support + + + + + | Name | Relationship | Address | Phone | + + + + + | Grisel Marc | ECON | [address] | | | | | [place] | | | | | [address] | | + + + + + Care Team Providers + +------+ + | Care Drawing Press Operator Name | Role | Phone | [...] | | | | [address] | [address] | | | | | [address] [place] | [phone] | | | | | [place] | | | | | | [address] | | | | | | [phone] | | | +--------+ + + + [...]
--- OUTSIDE RECORDS SUMMARY | ~2019-08-24 | XMS | Encounter Summary ---
Demographics + + + | Address | [address] | | | [place] [address] | + + + | Home Phone [...] [place] | | | | | [address] | | + + + + + Care Team Providers + +------+ + | Care Cultural Historian Name | Role | Phone | + +------+ + | Adilia Bob SUMATRA OPENER | PCP | | + +------+ + Reason for Visit Diagnostic Testing (Routine) +--------+--------+ + + + + | Status | Reason | Specialty | Diagnoses / | Referred By | Referred To | | | | | Procedures | Contact | Contact | +--------+--------+ + + + + | Closed | | Radiology | Diagnoses | [facility] | | | | | | MD David | [address] | | | | | Osteomyeliti | [address] | [address] | | | | | s of knee | [address] | Rd | | | | | region (HCC) | Rd | Mailcode: | | | | | Procedures | [place], [place] | [address] | | | | | MRI KNEE | [address] | [place] | | | | | LT W[address] CONT | Phone: | Research | | | | | | [phone] | [place] | | | | | | Fax: | [place], [place] | | | | | | [phone] | [address] | | | | | | | Phone: | | | | | | | [phone] | | | | | | | Fax: | | | | | | | [phone] | +--------+--------+ + + + + Encounter Details +--------+ + + + + | Date | Type | Department | Care Team | Description | +--------+ + + + + | 08/24/ | Hospital | Diagnostic Imaging | | | | 2012 | Encounter | Services at [facility] | | | | | | [address] | | | | | | [place] Mailcode: | | | | | | [address] [place] | | | | | | [facility] | | | | | | [place], [place] | | | | | | [address] | | | | | | [phone] | | | +--------+ + + + [...] subchondral | | | | | | T0lprwba hyperintensity | | | | | | [...] Mikal | | | | | | user 08/25/2012 17:30 | | | | | [...] | | + +---------+ + + | [facility] DEPARTMENT OF | | | | | RADIOLOGY | | | | + +---------+ + + documented in this encounter Visit Diagnoses + + | Diagnosis | + + | Osteomyelitis of knee region (HCC) Unspecified osteomyelitis, lower leg | + + documented in this encounter"
--- OUTSIDE RECORDS SUMMARY | ~2019-08-24 | XMS | Encounter Summary ---
Demographics + + + | Address | [address] | | | [place] [address] | + + + | Home Phone | | + + + | Preferred Language | Unknown | + + + | Marital Status | Single | + + + | Pentecostalism Affiliation | LUT | + + + [...] + | Grisel Marc | ECON | [address] | | | | | [place] | | | | | [address] | | + + + + + Care Team Providers + +------+ + | Care Geological Science Teacher Name | Role | Phone | [...] | | | | [place] | [address] | | | | | [place] | [phone] | | | | | [place] | | | | | | [address] | | | | | | [phone] | | | +--------+ + + + [...]
--- OUTSIDE RECORDS SUMMARY | ~2019-08-24 | XMS | Encounter Summary ---
Demographics + + + | Address | [address] | | | [place] [address] | + + + | Home Phone | | + + + | Preferred Language | Unknown | + + + | Marital Status | Single | + + + | Latter-Day Affiliation | LUT | + + + | Race | White | + + + | Ethnic Group | Not or | + + + Author + + + | Author | [facility] | + + + | Organization | [facility] | + + + | Address | Unknown | + + + | Phone | Unavailable | + + + Support + + + + + | Name | Relationship | Address | Phone | + + + + + | Grisel Marc | ECON | [address] | | | | | [place] | | | | | [address] | | + + + + + Care Team Providers + +------+ + | Care Parcel Carrier Name | Role | Phone | [...] | | | [address] | [address] | | | | | [address] | [phone] | | | | | [place] | | | | | | [address] | | | | | | [phone] | | | +--------+ + + + [...]
--- OUTSIDE RECORDS SUMMARY | ~2019-08-24 | XMS | Encounter Summary ---
Demographics + + + | Address | [address] | | | [place] [address] | + + + | Home Phone [...] + | Grisel Marc | ECON | [address] | | | | | [place] | | | | | [address] | | + + + + + Care Team Providers + +------+ + | Care Manager Plumbing Name | Role | Phone | + [...] | | | Orthopaedic Surgery | [place], [place] | | | | | [address] | [address] | | | | | [place], [place] | [phone] | | | | | [address] | | | | | | [phone] | | | +--------+ + + + [...] | + + + + + | [facility] | | [place] [address] | [phone] | | [facility] | Streets | [...] + + | [place] | [address] | [place] [address] | [phone] | | [facility] | Streets | | | + + + + + documented in this encounter Visit Diagnoses + + | Diagnosis | + + | Osteomyelitis of knee region (HCC) - Primary Unspecified osteomyelitis, lower leg | + + documented in this encounter"
--- OUTSIDE RECORDS SUMMARY | ~2019-08-24 | XMS | Encounter Summary ---
Demographics + + + | Address | [address] | | | [place] [address] | + + + | Home Phone | | + + + | Preferred Language | Unknown | + + + | Marital Status | Single | + + + | Voodoo Affiliation | LUT | + + + [...] [place] | | | | | [address] | | + + + + + Care Team Providers + +------+ + | Care Post Office Manager Name | Role | Phone | + +------+ + | Adilia BobP | PCP | | + +------+ + Reason for Visit + + + | Reason | Comments | + + + | Postoperative | | | infection | | + + + Encounter Details +--------+ + + + + | Date | Type | Department | Care Team | Description | +--------+ + + + + | 07/14/ | Telephone | Orthopaedics at | Alton Hernandez MD | Postoperative | | 2012 | | [facility] [address] | | infection | | | | [address] | | | | | | Mailcode: [id number] | | | | | | [facility] | | | | | | [place], [place] | | | | | | [address] | | | | | | [phone] | | | +--------+ + + + [...]
--- OUTSIDE RECORDS SUMMARY | ~2019-08-24 | XMS | Encounter Summary ---
Demographics + + + | Address | [address] | | | [place] [address] | + + + | Home Phone [...] [place] | | | | | [address] | | + + + + + Care Team Providers + +------+ + | Care Wad Printing Machine Operator Name | Role | Phone [...] | | | | | Health | [facility] | | | | | | Associates | Rd | | | | | | [address] | [place], [place] | | | | | | [address] | [address] | | | | | | [place], | | | | | | | [place] [address] | | | | | | | Phone: | | | | | | | [phone] | | | | | | | Fax: | | | | | | | [phone] | | +--------+--------+ + + + + Encounter Details +--------+---------+ + + + | Date | Type | Department | Care Team | Description | +--------+---------+ + + + | 03/11/ | Office | Orthopaedics & | Zoey Peck, | Osteomyelitis of | | 2013 | Visit | Rehabilitation at | MD [address] | knee region (HCC) | | | | [facility] 4th [address] | (Primary Dx) | | | | [address] | [place] [address] | | | | | Mailcode: [id number] | [phone] | | | | | [facility] | | | | | | [address] | | | | | | [facility] [place] | | | | | | [address] | | | | | | [phone] | | | +--------+---------+ + + + [...] FOLLOW UP Referrring Physician: Alton Hernandez MD [address] [place] [address] Primary Care Physician: [facility] [address], [address] [place] [address] Ms. Marc presents to Infectious Diseases Clinic regarding scheduled follow up. Please refer to prior documentation including inpatient OPAT teaching note, outpatient OPAT telephone order dispatcher for antibiotic therapy, lab monitoring History other than "Interim History" below is directly copied from previous ID notes to darya mcdonough. In addition I reviewed the history from the patient's [facility] admiss ion, including but not limited to all pertinent ID consultation notes, surgical procedures & findings, culture results & lab tests, pathology reports, case management notes, and the spital discharge summary.Sandy Marc is a 22 y.o. female a couple of weeks of knee p ain in November 2011 and then was doing rodeo on her horse going around [employer], and she was le aning out away [...] placement of antibiotic beads 09/03/2012: HIRAM Silva [facility] Operative Findings: There were no gross findings [...] She was seen in the ER in [place] and had a CT Thor ax that [...] Marc follow up in Infectious Diseases Clinic AL I spent 20 minutes in a face-to face visit with the patient, with over 50% of time spen t in councelling the patient. We discussed infection, antibiotics, duration of therapy, lab results, and follow-up planning, as described above. ZOEY PECK MD INFECTIOUS DISEASES [address] [place] [address] Mailcode: L608 [place] [address] documented in this e ncounter Plan of Treatment Not on filedocumented as of this encounter Visit Diagnoses + + | Diagnosis | + + | Osteomyelitis of knee region (HCC) - Primary Unspecified osteomyelitis, lower leg | + + documented in this encounter
--- OUTSIDE RECORDS SUMMARY | ~2019-08-24 | XMS | Encounter Summary ---
Demographics + + + | Address | [address] | | | [place] [address] | + + + | Home Phone [...] Author + + + | Author | [facility] | + + + | Organization | [facility] | + + + | Address | Unknown | + + + | Phone | Unavailable | + + + Support + + + + + | Name | Relationship | Address | Phone | + + + + + | Grisel Marc | ECON | [address] | | | | | [place] | | | | | [address] | | + + + + + Care Team Providers + +------+ + | Care Chief Mate Name | Role | Phone | + +------+ + | Adilia Bob PORCELAIN ENAMEL LABORER | PCP | | + +------+ + Encounter Details +--------+ + + + + | Date | Type | Department | Care Team | Description | +--------+ + + + + | 11/25/ | Steamfitter Apprentice | Orthopaedics at | Alton Hernandez MD | Osteomyelitis of | | 2012 | | [address] [address] | | knee region (HCC) | | | | [address] | | (Primary Dx); | | | | Mailcode: [id number] | | Pathologic fracture | | | | [facility] | | of tibia or fibula | | | | [place], [place] | | | | | | [address] | | | | | | [phone] | | | +--------+ + + + [...]
--- OUTSIDE RECORDS SUMMARY | ~2019-08-24 | XMS | Encounter Summary ---
Demographics + + + | Address | [address] | | | [place] [address] | + + + | Home Phone [...] [place] | | | | | [address] | | + + + + + Care Team Providers + +------+ + | Care Racing Mechanic Name | Role | Phone | + [...] | | | | [address] | [place] [address] | | | | | Mailcode: L457 | [phone] | | | | | [facility] | | | | | | [place], [place] | | | | | | [address] | | | | | | [phone] | | | +--------+ + + + [...]
--- OUTSIDE RECORDS SUMMARY | ~2019-08-24 | XMS | Encounter Summary ---
Demographics + + + | Address | [address] | | | [place] [address] | + + + | Home Phone [...] [place] | | | | | [address] | | + + + + + Care Team Providers + +------+ + | Care Alcohol Rubber Name | Role | Phone | + [...] | | | | | | [place], | | | | | | [place] [address] | | | | | | [phone] | | | +--------+ + + + [...]
--- OUTSIDE RECORDS SUMMARY | ~2019-08-24 | XMS | Encounter Summary ---
Demographics + + + | Address | [address] | | | [place] [address] | + + + | Home Phone [...] Author + + + | Author | [facility] | + + + | Organization | [facility] | + + + | Address | Unknown | + + + | Phone | Unavailable | + + + Support + + + + + | Name | Relationship | Address | Phone | + + + + + | Grisel Marc | ECON | [address] | | | | | [place] | | | | | [address] | | + + + + + Care Team Providers + +------+ + | Care Setup Technician Name | Role | Phone | [...] | | | | necrosis of | [facility] | [address] | | | | | bone) ([facility]) | Rd | [address] | | | | | Septic | [place], [place] | [place], | | | | | 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[address] | [place] [address] | | | | | knee, left | | Phone: | | | | | ([facility]) | | [phone] | | | | | Procedures | | Fax: | | | | | CONSULT TO | | [phone] | | | | | INFECTIOUS | [...] use of antibiotics | | | | [facility] [place] | | | | | | [address] | | | | | | [phone] | | | +--------+---------+ + + + [...] DISEASES CLINIC FOLLOW UP Primary Care Physician: [facility] [address] [place] [address], [address] [place] [address] Ms. Marc presents to Infectious Diseases Clinic regarding scheduled follow up. The patient was seen in conjunction with Dr. Alton Hernandez today. The following history was obtained prior to today's OPAT visit from my own review of the bethany perez's recent [facility] hospital admission, including but not limited to [...] doing rodeo on her horse going around [employer], and she was leaning out away from [employer]. Her legs spontaneously broke with pathological fracture. [...] placement of antibiotic beads 09/03/2012: HIRAM Silva [facility] Operative Findings: We began by performing a [...] intramedullary canal. We then used our canal refrigeration mechanic to thoroughly washout the intramedullary canal as [...] She was seen in the ER in [place] and had a CT Thor ax that [...] the primary care provider and surgeon. Brigid Hadry PA-C [facility] Department of Infectious Diseases Outpatient IV Antibiotic Therapy Clinic (OPAT) [phone] Pager ID: [phone] [facility] Mail Code L457 [place] [address] documented in this encounter Plan of Treatment Not on filedocumented as of this encounter Visit Diagnoses + + | Diagnosis | + + | Osteomyelitis of knee region (HCC) - Primary Unspecified osteomyelitis, lower leg | + + | Encounter for long-term (current) use of antibiotics | + + documented in this encounter
--- OUTSIDE RECORDS SUMMARY | ~2019-08-24 | XMS | Encounter Summary ---
Demographics + + + | Address | [address] | | | [place] [address] | + + + | Home Phone [...] [place] | | | | | [address] | | + + + + + Care Team Providers + +------+ + | Care Cabin Service Agent Name | Role | Phone | + [...] | | | | | | [place], | | | | | | [place] [address] | | | | | | [phone] | | | +--------+ + + + [...] X-RAY KNEE 2 VIEWS | Routin | 12/08/2012 | Osteomyelitis of | Results for this | | LEFT | e | 8:15 AM | knee region (HCC) | procedure are in the | | | | PDT | | results section. | + +--------+ + + + documented in this encounter Results X-RAY KNEE 2 VIEWS [...] | | + +---------+ + + | [facility] | | | | | RADIOLOGY | | | | + +---------+ + + documented in this encounter Visit Diagnoses + + | Diagnosis | + + | Osteomyelitis of knee region (HCC) Unspecified osteomyelitis, lower leg | + + documented in this encounter"
--- OUTSIDE RECORDS SUMMARY | ~2019-08-24 | XMS | Encounter Summary ---
Demographics + + + | Address | [address] | | | [place] [address] | + + + | Home Phone [...] [place] | | | | | [address] | | + + + + + Care Team Providers + +------+ + | Care Machine Repair Person Name | Role | Phone | + [...] (Left Knee | | 2019 | | [facility] [address] | Clinic | ) | | | | Deborah Mailcode: [id number] | | | | | | [facility] | | | | | | and Healing, | | | | | | Building | | | | | | Floor [place], [place] | | | | | | [address] | | | | | | [phone] | | | +--------+ + + + [...] Dr. Rodriguez X-Ray Yes, when: 06/04/19; where: [facility] MRI Yes, where: [facility] Via phone 07/05/19 Other Imaging (CT, Ultrasound, etc.) No Is this a W/C injury? no If YES, create referral and complete: .ORTWCNEWPATIENT inside referral Note: We do not accept WC under [place] L&[place] as they do not pay at [place] rates. Other out of state claims will only be accepted if they agree to pay at [place] rates docume nted in writing from adjustor. Can you confirm the insurance we will be billing for this visit? Care [place] Note: If OHP, please note which type. E.g. [place], [place], [employer], etc. ) Reminder: Please create referrals for pts with: HMO, OHP, [place], Self-Pay, W/C, TPL an d ED Post- [...] they d like to sign up for [employer] ? Don t forget to pull in CareEveryWhere Additional Comments: documented in this encounter Plan of Treatment Not on filedocumented as of this encounter Visit Diagnoses Not on filedocumented in this encounter
--- OUTSIDE RECORDS SUMMARY | ~2019-08-24 | XMS | Clinical Summary ---
Demographics + + + | Address | [address] | | | [place] [address] | + + + | Home Phone [...] [place] | | | | | [address] | | + + + + + Care Team Providers + +------+ + | Care Security Police Officer Name | Role | Phone | + +------+ + | Hina Peterson | PCP | | + +------+ + Source Comments FLIP is fully live on both EpicCare Ambulatory and EpicCare InPatient.Formerly [facility], [facility] Allergies + + + + [...] | Possible avascular necrosis. Recommended referral to [facility] | | (10/22/2013 note) | + + [...] / | | Alton Hernandez MD at [facility] | | Leg | | | | [...] + + | [facility] | And | [place] [address] | [phone] | | MEDICAL CENTER | Streets | [...] + + | [facility] | [address] | [place] [address] | [phone] | | [facility] | [facility] | | | + + + + + US DUPLEX LOWER EXTREMITY VENOUS LEFT (06/04/2019 10:49 AM PDT) + + | Specimen | + + | | + + + + + | Narrative | Performed At | + + + | [address] | [facility] | | [place] [address] | DEPARTMENT | | [phone] Name: SANDY MARC Phys: | RADIOLOGY | | JACI BLUE : 1990 Sex: F CSN: | | | [id number] MR# [id number] Exam Date: 06/04/2019 | | | EXAM: [...] Transcribed | | | Date/Time: 06/04/2019 11:28 Lpc: FLUENCY | | + + + + + | Procedure Note | + + | Interface, Radiology Results - 06/04/2019 11:36 AM PDT [address] | | [place] [address] | | Name: ANGELICA MARCAlex Phys: IZABELLAJACI : 1990 Sex: F | | CSN: [id number] MR# [id number] Exam Date: 06/04/2019 EXAM:LEFT LOWER EXTREMITY | [...] | | |Transcribed Date/Time: 06/04/2019 11:28 | |Lpc: FLUENCY | | | | | | [...] | + + + | [address] [place] [address] | [facility] | | [place] [address] | DEPARTMENT | | [phone] Name: SANDY MARC Phys: | RADIOLOGY | | JACI BLUE : 1990 Sex: F CSN: | | | [id number] MR# [id number] Exam Date: 06/04/2019 | | | EXAM: X-RAY KNEE 3 VIEWS LEFT [id number]; X-RAY KNEE 2 VIEWS RIGHT | | | [id number] CLINICAL HISTORY: Left knee pain. COMPARISON: None [...] Transcribed Date/Time: 06/04/2019 | | | 23:16 Lpc: YORDY | | + + + + + | Procedure Note | + + | Interface, Radiology Results - 06/04/2019 11:21 PM PDT [address] | | [place] [address] | | Name: SANDY MARC Phys: JACI BLUE : 1990 Sex: F | | CSN: [id number] MR# [id number] Exam Date: 06/04/2019 EXAM:X-RAY KNEE 3 VIEWS | | LEFT 35387; X-RAY KNEE 2 VIEWS RIGHT [id number] CLINICAL HISTORY:Left knee pain. | | COMPARISON:None [...] | | |Transcribed Date/Time: 06/04/2019 23:16 | |Lpc: YORDY | | | | | | | + + + +---------+ + + | Performing | Address | City/State/[facility] | Phone Number | [...] | + + + | [address] [place] [address] | [facility] | | [place] [address] | DEPARTMENT OF | | [phone] Name: DINORA MARCYOU Phys: | RADIOLOGY | | IZABELLAJACI : 1990 Sex: F CSN: | | | [id number] MR# [id number] Exam Date: 06/04/2019 | | | EXAM: X-RAY KNEE 3 VIEWS LEFT 13309; X-RAY KNEE 2 VIEWS RIGHT | | | [address]62[address] CLINICAL HISTORY: Left knee pain. COMPARISON: None [...] Transcribed Date/Time: 06/04/2019 | | | 23:16 Lpc: FLUENCY | | + + + + + | Procedure Note | + + | Interface, Radiology Results - 06/04/2019 11:21 PM PDT [address] | | [address] [place] [address] | | Name: SANDY MARC Phys: JACI BLUE : 1990 Sex: F | | CSN: [id number] MR# [id number] Exam Date: 06/04/2019 EXAM:X-RAY KNEE 3 VIEWS | | LEFT 69349; X-RAY KNEE 2 VIEWS RIGHT [id number] CLINICAL HISTORY:Left knee pain. | | COMPARISON:None [...] | | |Transcribed Date/Time: 06/04/2019 23:16 | |Lpc: FLUENCY | | | | | | | + + + +---------+ + + | Performing | Address | City/State/[facility] | Phone Number | [...] | | | + +--------+ +--------+-------+---------+--------+ | CAMP ADVISOR MEDICAID | CAMP ADVISOR | xxxxxxxx | Effect | | | Medica | | | EASTER | | cindi | | | id | | | [place] | | for | | | | | | | | all | | | | | | | | dates | | | | + +--------+ +--------+-------+---------+--------+ | CAMP ADVISOR MEDICAID | CAMP ADVISOR | xxxxxxxx | 08/11/19 | | | [...] | 1990 | [phone] | [place] [address] | | | nayla | | | 2 (Home) | | + +--------+ +--------+ + + | Sandy Marc | Person | Self | [birth year] | | [address] | | (Aminta Liu | al/Fam | | 1990 | [phone] | [place] [address] | | | nayla | | | [...]
--- OUTSIDE RECORDS SUMMARY | ~2019-08-24 | XMS | Encounter Summary ---
Demographics + + + | Address | [address] | | | [place] [address] | + + + | Home Phone | | + + + | Preferred Language | Unknown | + + + | Marital Status | Single | + + + | Hoahaoism Affiliation | LUT | + + + [...] [place] | | | | | [address] | | + + + + + Care Team Providers + +------+ + | Care Business Operations Analyst Name | Role | Phone | + +------+ + | Adilia Bob | PCP | | + +------+ + Reason for Visit + + + | Reason | Comments | + + + | Erroneous Encounter | | | - Disregard | | + + + Encounter Details +--------+ + + + + | Date | Type | Department | Care Team | Description | +--------+ + + + + | 11/27/ | Telephone | Orthopaedics at | Alton Hernandez MD | Erroneous Encounter | | 2012 | | [address] | | - Disregard | | | | [address] | | | | | | Mailcode: [id number] | | | | | | [facility] | | | | | | [place], [place] | | | | | | [address] | | | | | | [phone] | | | +--------+ + + + [...]
--- OUTSIDE RECORDS SUMMARY | ~2019-08-24 | XMS | Encounter Summary ---
Demographics + + + | Address | [address] | | | [place] [address] | + + + | Home Phone [...] [place] | | | | | [address] | | + + + + + Care Team Providers + +------+ + | Care Supervisor Prep Name | Role | Phone | + [...] [place] | | | | | [facility] | [address] | | | | | Hospital Admitting | [place], [place] | | | | | Desk Located on the | [address] | | | | | 9th floor | [phone] | | | | | [place], [place] | | | | | | [address] | Viktoriya Jennings MD | | | | | | [address] | | | | | | [facility] | | | | | | [place] [address] | | | | | | [phone] | | | | | | | | +--------+ + + + + Anesthesia Record + + + + + | Procedure Name | Responsible | Anesthesia Start | Anesthesia Stop Time | | | Anesthesiologist | Time | | + + + + + | IRRIGATION AND | Shakila Brugos MD | 09/02/12 1407 | 09/02/12 1125 | | DEBRIDEMENT OF LEFT | | [...]
--- OUTSIDE RECORDS SUMMARY | ~2019-08-24 | XMS | Encounter Summary ---
Demographics + + + | Address | [address] | | | [place] [address] | + + + | Home Phone [...] [place] | | | | | [address] | | + + + + + Care Team Providers + +------+ + | Care Manager Beverage Name | Role | Phone | + +------+ + | Adilia Bob | PCP | | + +------+ + Encounter Details +--------+------+ + + + | Date | Type | Department | Care Team | Description | +--------+------+ + + + | 08/25/ | Lab | Laboratory, | | Osteomyelitis of | | 2012 | | Specimen Collection | | knee region (HCC) | | | | at [facility] 3rd Floor | | | | | | [address] | | | | | | Loop [place], [place] | | | | | | [address] | | | | | | [phone] | | | +--------+------+ + + + [...] e | 10:01 AM | knee region ([facility]) | procedure are in the | | | | PST | | results section. | + +--------+ + + + | HIV-1,2 AB/HIV-1 P24 | Routin | 08/25/2012 | Osteomyelitis of | Results for this | | AG SCRN | e | 10:01 AM | knee region ([facility]) | procedure are in the | | | | PST | | results section. | + +--------+ + + + | IGA, SERUM | Routin | 08/25/2012 | Osteomyelitis of | Results for this | | | e | 10:01 AM | knee region ([facility]) | procedure are in the | [...] [facility] | [address] | [place] [address] | | | SERVICES, CORE | PARK [...] [facility] | [address] | [place] [address] | | | SERVICES, SPECIAL | PARK [...] | | | | | in the [email or web address] | | | | | | LaboratoryTest Directory | | | | | | ([employer]). | | | | + + + [...] Directory | | | | | | (Kynetx). | | | | + + + [...] | | | | | in the [facility] | | | | | | LaboratoryTest Directory | | | | | | ([employer]x). | | | | + + + [...] # | | | | | | [phone]). Access | | | | | | complete set of age- | | | | | | and/or | | | | | | gender-specificreference | | | | | | intervals for this test | | | | | | in the [facility] | | | | | | LaboratoryTest Directory | | | | | | ([email or web address]).Performed | | | | | | by [facility] | | | | | | [facility],[address] [place] [address] | | | | | | [place] [address] | | | | | | [phone]. | | | | | | [facility], Magy Fernandez, | | | | [...] [facility] | [address] | [place], [place] | | | UNIV P[facility] | | [address] | | + + + + + [...] | + + + + + | [employer] [facility] - | [address] | [place] [address] | | | [place] | | | | + + + + + documented in this encounter Visit Diagnoses + + | Diagnosis | + + | Osteomyelitis of knee region (HCC) Unspecified osteomyelitis, lower leg | + + documented in this encounter"
--- OUTSIDE RECORDS SUMMARY | ~2019-08-24 | XMS | Encounter Summary ---
Demographics + + + | Address | [address] | | | [place] [address] | + + + | Home Phone [...] + + + + + | Grisel Mrac | ECON | [address] | | | | | [place] | | | | | [address] | | + + + + + Care Team Providers + +------+ + | Care Ror Engineer Name | Role | Phone | [...] | | | [address] | [address] | | | | | [place] | [phone] | | | | | [address] | | | | | | [phone] | | | +--------+ + + + [...]
--- OUTSIDE RECORDS SUMMARY | ~2019-08-24 | XMS | Encounter Summary ---
Demographics + + + | Address | [address] | | | [place] [address] | + + + | Home Phone [...] Author + + + | Author | [facility] | + + + | Organization | [facility] | + + + | Address | Unknown | + + + | Phone | Unavailable | + + + Support + + + + + | Name | Relationship | Address | Phone | + + + + + | Grisel Marc | ECON | [address] | | | | | [place] | | | | | [address] | | + + + + + Care Team Providers + +------+ + | Care Communications Officer Name | Role | Phone | [...] [place] | | | | | | [address] | | | | | | [phone] | | | +--------+------+ + + + [...] | + + + + + | [facility] | And | [place] [address] | [phone] | | MEDICAL CENTER | Streets | | | + + + + + C-REACTIVE PROTEIN (06/25/2019 8:15 AM PST) + +-------+ + + + | Component | Value | Ref Range | Performed | Pathologist | | | | | At | Signature | + +-------+ + + + | C-REACTIVE | 0.6 | 0.0 - 0.9 mg/dL | [facility] | | | PROTEIN | | | [...] | th [address] | [place] [address] | [phone] | | [facility] [place] | [facility] | | | + + + + + documented in this encounter Visit Diagnoses + + | Diagnosis | + + | Osteomyelitis of knee region (HCC) Unspecified osteomyelitis, lower leg | + + documented in this encounter"
--- OUTSIDE RECORDS SUMMARY | ~2019-08-24 | XMS | Encounter Summary ---
Demographics + + + | Address | [address] | | | [place] [address] | + + + | Home Phone [...] Author + + + | Author | [facility] | + + + | Organization | [facility] | + + + | Address | Unknown | + + + | Phone | Unavailable | + + + Support + + + + + | Name | Relationship | Address | Phone | + + + + + | Grisel Marc | ECON | [address] | | | | | [place] | | | | | [address] | | + + + + + Care Team Providers + +------+ + | Care Junior Project Manager Name | Role | Phone [...] | | [address] | [address] | | | | | [place], [place] | [phone] | | | | | [address] | | | | | | [phone] | | | +--------+ + + + [...]
--- OUTSIDE RECORDS SUMMARY | ~2019-08-24 | XMS | Encounter Summary ---
Demographics + + + | Address | [address] | | | [place] [address] | + + + | Home Phone [...] + | Grisel Mrac | ECON | [address] | | | | | [place] | | | | | [address] | | + + + + + Care Team Providers + +------+ + | Care Tangled Yarn Worker Name | Role | Phone | + +------+ + | Adilia Bob BACK WEDGER | PCP | | + +------+ + Encounter Details +--------+ + + + + | Date | Type | Department | Care Team | Description | +--------+ + + + + | 10/13/ | Pipe Connector | Orthopaedics at | Alton Hernandez MD | Osteomyelitis of | | 2012 | | [address] | | knee region (HCC) | | | | [address] | | (Primary Dx) | | | | Mailcode: [id number] | | | | | | [facility] | | | | | | [place], [place] | | | | | | [address] | | | | | | [phone] | | | +--------+ + + + [...] | | + +---------+ + + | [facility] DEPARTMENT OF | | | | | RADIOLOGY | | | | + +---------+ + + documented in this encounter Visit Diagnoses + + | Diagnosis | + + | Osteomyelitis of knee region (HCC) - Primary Unspecified osteomyelitis, lower leg | + + documented in this encounter"
--- OUTSIDE RECORDS SUMMARY | ~2019-08-24 | XMS | Encounter Summary ---
Demographics + + + | Address | [address] | | | [place] [address] | + + + | Home Phone | | + + + | Preferred Language | Unknown | + + + | Marital Status | Single | + + + | Presybeterian Affiliation | LUT | + + + [...] [place] | | | | | [address] | | + + + + + Care Team Providers + +------+ + | Care Latex Ribbon Machine Operator Name | Role | Phone [...] | | | | [address] | [place] [address] | | | | | Mailcode: L457 | [phone] | | | | | [facility] | | | | | | [place], [place] | | | | | | [address] | | | | | | [phone] | | | +--------+ + + + [...]
--- OUTSIDE RECORDS SUMMARY | ~2019-08-24 | XMS | Encounter Summary ---
Demographics + + + | Address | [address] | | | [place] [address] | + + + | Home Phone [...] [place] | | | | | [address] | | + + + + + Care Team Providers + +------+ + | Care Hydraulic Lift Operator Name | Role | Phone | [...] | | | synovectomy | Street | [facility] | | | | | | [address] | Rd [place], | | | | | | [place], | [place] | | | | | | [place] [address] | [address] | | | | | | Phone: | | | | | | | [phone] | | | | | | | Fax: | | | | | | | [phone] | | +--------+--------+ + + + + [...] [address] | | | | | | [place], [place] | | | | | | [address] | | | | | | [phone] | | | +--------+---------+ + + + [...] contrast or a knee aspi ration in [facility] but she elcted to come here for the aspiration and so this joint ap pointment with Dr. Peck from [place] was scheduled. Fortunately the knee stopped hurting [...] seconds capillary refill. Palpable dorsalis pedis and poultry debeaker ior tibial pulses. X-RAYS: Reviewed x-rays with [...] additional details. DARRICK BUITRAGO MD [facility] [address] [place] [address] Mailcode: [id number] [place] [address] documented in this en counter Plan of Treatment Not on filedocumented as of this encounter Visit Diagnoses + + | Diagnosis | + + | Osteomyelitis of knee region (HCC) - Primary Unspecified osteomyelitis, lower leg | + + documented in this encounter
--- OUTSIDE RECORDS SUMMARY | ~2019-08-24 | XMS | Encounter Summary ---
Demographics + + + | Address | [address] | | | [place] [address] | + + + | Home Phone [...] Author + + + | Author | [facility] | + + + | Organization | [facility] | + + + | Address | Unknown | + + + | Phone | Unavailable | + + + Support + + + + + | Name | Relationship | Address | Phone | + + + + + | Grisel Marc | ECON | [address] | | | | | [place] | | | | | [address] | | + + + + + Care Team Providers + +------+ + | Care General Handling Supervisor Name | Role | Phone | [...] | | | | of right | [address] | [address] | | | | | patella, | [address] | [address] | | | | | initial | [place], [place] | [place], [place] | | | | | encounter | [address] | [address] | | | | | Pain in | Phone: | Phone: | | | | | right knee | [phone] | [phone] | | | | | | Fax: | Fax: | | | | | | [phone] | [phone] | +--------+--------+ + + + + Encounter [...] | | [address] | [address] | (Primary Dx) | | | | [address] | [phone] | | | | | [place], [place] | | | | | | [address] | | | | | | [phone] | | | +--------+---------+ + + + [...]
--- OUTSIDE RECORDS SUMMARY | ~2019-08-24 | XMS | Encounter Summary ---
Demographics + + + | Address | [address] | | | [place] [address] | + + + | Home Phone [...] [place] | | | | | [address] | | + + + + + Care Team Providers + +------+ + | Care Popcorn Machine Operator Name | Role | Phone | + +------+ + | Adilia Bob CERTIFIED MEDICATION AIDE | PCP | | + +------+ + Encounter Details +--------+ + + + + | Date | Type | Department | Care Team | Description | +--------+ + + + + | 11/25/ | Hospitality Housekeeper | Orthopaedics at | Alton Hernandez MD | Osteomyelitis of | | 2012 | | [address] | | knee region (HCC) | | | | [address] | | (Primary Dx); | | | | Mailcode: [id number] | | Pathologic fracture | | | | [facility] | | of tibia or fibula | | | | [place], [place] | | | | | | [address] | | | | | | [phone] | | | +--------+ + + + [...] | | + +---------+ + + | [facility] DEPARTMENT OF | | | [...] | | + +---------+ + + | [facility] DEPARTMENT OF | | | [...]
--- OUTSIDE RECORDS SUMMARY | ~2019-08-24 | XMS | Encounter Summary ---
Demographics + + + | Address | [address] | | | [place] [address] | + + + | Home Phone | | + + + | Preferred Language | Unknown | + + + | Marital Status | Single | + + + | Yazidism Affiliation | LUT | + + + | Race | White | + + + | Ethnic Group | Not or | + + + Author + + + | Author | [facility] | + + + | Organization | [facility] | + + + | Address | Unknown | + + + | Phone | Unavailable | + + + Support + + + + + | Name | Relationship | Address | Phone | + + + + + | Grisel Marc | ECON | [address] | | | | | [place] | | | | | [address] | | + + + + + Care Team Providers + +------+ + | Care Rrts Name | Role | Phone | + +------+ + | No Pcp Per Patient | PCP | Unavailable | + +------+ + Encounter Details +--------+ + + + + | Date | Type | Department | Care Team | Description | +--------+ + + + + | 07/21/ | Clinical Dietician | Orthopaedics at | Alton Hernandez MD | Leg pain (Primary | | 2011 | | [address] | | Dx) | | | | [address] | | | | | | Mailcode: [id number] | | | | | | [facility] | | | | | | [place], [place] | | | | | | [address] | | | | | | [phone] | | | +--------+ + + + [...]
--- OUTSIDE RECORDS SUMMARY | ~2019-08-24 | XMS | Encounter Summary ---
Demographics + + + | Address | [address] | | | [place] [address] | + + + | Home Phone [...] [place] | | | | | [address] | | + + + + + Care Team Providers + +------+ + | Care Drop Wire Builder Name | Role | Phone | + [...] | | | necrosis of | [address] | [address] | | | | | bone) ([facility]) | Rd | [address] | | | | | Septic | [place], [place] | [place], | | | | | 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[address] | [place] [address] | | | | | knee, left | | Phone: | | | | | ([facility]) | | [phone] | | | | | Procedures | | Fax: | | | | | CONSULT TO | | [phone] | | | | | INFECTIOUS | [...] use of antibiotics | | | | [place], [place] | | | | | | [address] | | | | | | [phone] | | | +--------+---------+ + + + [...] DISEASES CLINIC FOLLOW UP Primary Care Physician: [facility] [address] [place] [address], [address] [place] [address] Ms. Marc presents to Infectious Diseases Clinic [...] doing rodeo on her horse going around [place], and she was leaning out away from [place]. Her legs spontaneously broke with pathological fracture. [...] placement of antibiotic beads 09/03/2012: HIRAM Silva [facility] Operative Findings: We began by [...] amedullary canal. We then used our canal jet ski mechanic to thoroughly washout the intramedullary canal [...] She was seen in the ER in [place] and had a CT Thor ax that [...] clot needs urgent attention. I asked the bethany perez to report any of these symptoms immediately, [...] an d follow-up planning. Brigid Hardy PA-C [facility] Department of Infectious Diseases Outpatient IV Antibiotic Therapy Clinic (OPAT) [phone] Pager ID: [phone] [facility] Mail Code L457 [place] [address] documented in this encounter Plan of Treatment [...] + + | He Layne - 09/23/2012 7:35 AM PST | + [...]
--- OUTSIDE RECORDS SUMMARY | ~2019-08-24 | XMS | Clinical Summary ---
Demographics + + + | Address | [address] | | | [place] [address] | + + + | Home Phone | | + + + | Preferred Language | Unknown | + + + | Marital Status | Single | + + + | Oriental Orthodox Affiliation | Unknown | + + + | Race | Unknown | + + + | Ethnic Group | Unknown | + + + Author + + + | Author | [facility] (Historical as of | | | 03-27-19) | + + + | Organization | [facility] (Historical as of | | | 03-27-19) [...] Team Providers + +------+ + | Care Crop Specialist Name | Role | Phone | [...] + | Maternal Aunt | | | [place] | | | | (Age | | [...] +------+-------+ + | MEDICAID | POER | [id number] | | | [address] | | | N | | | | [place] | | | [place] | | | | [address] | | | [employer]BER | | | | | + +--------+ [...] | [place] | | | [address] | [address] | + +--------+ +--------+ + +
--- OUTSIDE RECORDS SUMMARY | ~2019-08-24 | XMS | Encounter Summary ---
Demographics + + + | Address | [address] | | | [place] [address] | + + + | Home Phone [...] [place] | | | | | [address] | | + + + + + Care Team Providers + +------+ + | Care Drying Frame Operator Name | Role | Phone | + +------+ + | Adilia Bob DRAFTER APPRENTICE | PCP | | + +------+ + Encounter Details +--------+ + + + + | Date | Type | Department | Care Team | Description | +--------+ + + + + | 10/16/ | Court Supervisor | Infectious | Brigid Hardy | Osteomyelitis of | | 2013 | | Diseases at [address] | [place] | knee region (HCC) | | | | [address] | | (Primary Dx) | | | | [address] | | | | | | Mailcode: L457 | | | | | | [facility] | | | | | | [place], [place] | | | | | | [address] | | | | | | [phone] | | | +--------+ + + + [...]
--- OUTSIDE RECORDS SUMMARY | ~2019-08-24 | XMS | Encounter Summary ---
Demographics + + + | Address | [address] | | | [place] [address] | + + + | Home Phone [...] [place] | | | | | [address] | | + + + + + Care Team Providers + +------+ + | Care Web Site Admin Name | Role | Phone | + +------+ + | Adilia Bob FINANCIAL REP | PCP | | + +------+ + [...] | | | | | Septic | [place], [place] | [facility] | | | | | 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[address] | [place] [address] | | | | | knee, left | | Phone: | | | | | ([facility]) | | [phone] | | | | | Procedures | | Fax: | | | | | CONSULT TO | | [phone] | | | | | INFECTIOUS | [...] | [address] | knee region ([facility]) | | | | [address] | [address] | (Primary Dx) | | | | [address] | [place] [address] | | | | | Mailcode: L457 | [phone] | | | | | [facility] | | | | | | [place], [place] | | | | | | [address] | | | | | | [phone] | | | +--------+---------+ + + + [...] Lavinia Peck MD - 08/25/2012 10:10 PM [facility] Clinic Date: 08/25/2012 Clinic: Infectious Disease I [...] Lavinia Peck M.D., Ph.D. MALLORY / HYACINTH [id number] / [id number] / [id number] / Lavinia Lam MD - 08/25/2012 9:30 AM PST This office note has been dictated. [facility] #: [id number] I spent 45 minutes with the patient [...] | + + + + + | [facility] | [address] | [place] [address] | | | SERVICES, SPECIAL | PARK [...] | | | | | in the [facility] | | | | | | LaboratoryTest Directory | | | | | | ([employer]). | | | | + + + [...] Directory | | | | | | ([employer]). | | | | + + + [...] | | | | | in the [facility] | | | | | | LaboratoryTest Directory | | | | | | ([employer]). | | | | + + + [...] # | | | | | | [phone]). Access | | | | | | complete set of age- | | | | | | and/or | | | | | | gender-specificreference | | | | | | intervals for this test | | | | | | in the [employer] [facility] | | | | | | LaboratoryTest Directory | | | | | | ([employer]).Performed | | | | | | by [facility] | | | | | | [facility] | | | | | | [place] [address] | | | | | | [phone]. | | | | | | [facility], Magy Fernandez, | | | [...] [facility] | [address] | [place], [place] | | | [facility] | | [address] | | + + + + + [...] - | | | | | | [place] | | + +-------+ + + + + + | Specimen | + + | Blood - Blood | + + + + + + + | Performing | Address | City/State/Zipcode | Phone Number | | Organization | | | | + + + + + | [facility] | [address] | [place] [address] | | | [place] | | | | + + + + + documented in this encounter Visit Diagnoses + + | Diagnosis | + + | Osteomyelitis of knee region (HCC) - Primary Unspecified osteomyelitis, lower leg | + + documented in this encounter"
--- OUTSIDE RECORDS SUMMARY | ~2019-08-24 | XMS | Encounter Summary ---
Demographics + + + | Address | [address] | | | [place] [address] | + + + | Home Phone [...] [place] | | | | | [address] | | + + + + + Care Team Providers + +------+ + | Care Cigar Head Pegger Name | Role | Phone | + +------+ + | Adilia Bob ASSISTANT WOMENS VOLLEYBALL COACH | PCP | | + +------+ + Encounter Details +--------+ + + + + | Date | Type | Department | Care Team | Description | +--------+ + + + + | 03/10/ | Senior Interior Designer | Orthopaedics at | Alton Hernandez MD | Osteomyelitis of | | 2012 | | [address] | | knee region (HCC) | | | | [address] | | (Primary Dx); | | | | Mailcode: [id number] | | Pathologic fracture | | | | [facility] | | of tibia or fibula | | | | [place], [place] | | | | | | [address] | | | | | | [phone] | | | +--------+ + + + [...] | | + +---------+ + + | [facility] DEPARTMENT OF | | [...]
--- OUTSIDE RECORDS SUMMARY | ~2019-08-24 | XMS | Encounter Summary ---
Demographics + + + | Address | [address] | | | [place] [address] | + + + | Home Phone [...] + | Grisel Marc | ECON | [address] | | | | | [place] | | | | | [address] | | + + + + + Care Team Providers + +------+ + | Care Rock Contractor Name | Role | Phone | + [...] | | | | Osteomyeliti | [address] | ,PhD 3667 | | | | | s of knee | [address] | [address] | | | | | region (HCC) | [facility] | [facility] | | | | | Articular | Rd | Rd [place], | | | | | cartilage | [place], [place] | [place] | | | | | disorder | [address] | [address] | | | | | Left knee | Phone: | Phone: | | | | | pain, | [phone] | [phone] | | | | | unspecified | Fax: | Fax: | | | | | chronicity | [phone] | [phone] | | | | | Post-traumat | [...] | | | Janett Case | [address] [place], [place] | (Primary Dx); | | | | [place] [address] | [address] | 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 Radiology: X-ray examination 06/04/19 demonstrates [place] changes and mild medial joint space narr owing. There are sclerotic changes noted tibial and femur MRI left knee from [facility] demonstrates Chronic ACL tear and [...] her age we will refer her to [facility] for possible osteochondral allograft, reconstr uction Follow up: linda Saba MD [facility] Orthopaedics and Rehabilitation Clinical Manager Grocery Board Certified in Sports Medicine and Orthopaedic Surgery Director of Total Joint Replacement Program, [facility] Orthopaedics and Sports Medicine [address] [place] [address] Office: [phone] documented in this e ncounter Plan of [...]
--- OUTSIDE RECORDS SUMMARY | ~2019-08-24 | XMS | Clinical Summary ---
Demographics + + + | Address | [address] | | | [place] [address] | + + + | Home Phone | | + + + | Preferred Language | Unknown | + + + | Marital Status | | + + + | Faith Affiliation | Unknown | + + + | Race | Unknown | + + + | Ethnic Group | Unknown | + + + Author + + + | Author | [facility] | | | and [place] | + + + | Organization | [facility] | | | [...] Team Providers + +------+ + | Care Quarter Inspector Name | Role | Phone | [...] M?MRN: | | | | | | [id number] | | | [id number] | | | riteri | | | [...] | | | St. | | | [place] | | | y | | | [...] | | | St. | | | [place] | | | y H. | | [...] | | | St. | | | [place] | | | y H. | | [...] | | ER J, | | | RHEUMATOLOGY SPECIALIST | | | Nurse | | | [...] | [employer] | [facility] | [id number] | | [phone] | | Medica | [...] [place] | | | 2 (Home) | [address] | + +--------+ +--------+ + + Advance Directives + + + + + | Type | Date Recorded | Patient | Explanation | | | | Pain Medicine Physician | | + + + + + | Power of | | | | | Environmental Specialist | | | | + + + + + | Advance | 06/19/2019 2:16 | | | | Directive | PM | | | + + + + +
--- OUTSIDE RECORDS SUMMARY | ~2019-08-24 | XMS | Encounter Summary ---
Demographics + + + | Address | [address] | | | [place] [address] | + + + | Home Phone [...] Author + + + | Author | [facility] | + + + | Organization | [facility] | + + + | Address | Unknown | + + + | Phone | Unavailable | + + + Support + + + + + | Name | Relationship | Address | Phone | + + + + + | Grisel Marc | ECON | [address] | | | | | [place] | | | | | [address] | | + + + + + Care Team Providers + +------+ + | Care Senior Telecommunications Specialist Name | Role | Phone | [...] | | | | | | [place] [address] | | | +--------+ + + + [...]
--- OUTSIDE RECORDS SUMMARY | ~2019-08-24 | XMS | Encounter Summary ---
Demographics + + + | Address | [address] | | | [place] [address] | + + + | Home Phone [...] [place] | | | | | [address] | | + + + + + Care Team Providers + +------+ + | Care Production Aide Name | Role | Phone | [...] [place] | | | | | Floor [address] | | | | | | [address] | | | | | | Mailcode: L457 | | | | | | [facility] | | | | | | [place], [place] | | | | | | [address] | | | | | | [phone] | | | +--------+ + + + [...]
--- OUTSIDE RECORDS SUMMARY | ~2019-08-24 | XMS | Encounter Summary ---
Demographics + + + | Address | [address] | | | [place] [address] | + + + | Home Phone [...] Author + + + | Author | [facility] | + + + | Organization | [facility] | + + + | Address | Unknown | + + + | Phone | Unavailable | + + + Support + + + + + | Name | Relationship | Address | Phone | + + + + + | Grisel Marc | ECON | [address] | | | | | [place] | | | | | [address] | | + + + + + Care Team Providers + +------+ + | Care Vascular Nurse Name | Role | Phone | [...] [place] | | | | | [address] | [address] | | | | | | [phone] | | | | | | | [...] | | Results for this | | [address] | e | 10:19 AM | | procedure are in the | | | | PST | | results section. | + +--------+ + + + documented in this encounter Results ORT KNEE 3V 94051 (07/14/2015 10:19 AM PST) + + | Specimen | + + | | + + + + + | Narrative | Performed At | + + + | Name: | [facility] | | [place] | DEPARTMENT OF | | Phys: Mars Nicolas MD | RADIOLOGY | | | | | : 1990 Age: 24 Sex: F | | | Acct: [id number] Loc: ORTH | | | | | | Exam Date: 07/14/2015 Status: PRE CLI | | | Radiology No: [id number] | | | Unit No: | | | EXAM# TYPE/EXAM | | | RESULT | | | [id number] ORT/ORT KNEE 3V 73 | | | EXAM: ORT | | | KNEE 3V 09213 CLINICAL HISTORY: | | | Knee pain. [...] | Transcribed Date/Time: 07/14/2015 | | | (1753) Banquet Chef: FLUENCY PAGE 1 | | | Signed Report | | | | | + + + + + | Procedure Note | + + | Interface, Radiology Results - 12/21/2015 11:29 AM PDT | | Name: [facility] | | Phys: Mars Nicolas MD : | | 1990 Age: 24 Sex: F Acct: [id number] | | Loc: ORTH Exam Date: 07/14/2015 | | Status: PRE CLI Radiology No: [id number] | | Unit No: EXAM# TYPE/EXAM | | RESULT [id number] ORT/ORT KNEE 3V | | 73 EXAM: ORT KNEE 3V | | 03543 CLINICAL HISTORY: Knee pain. Subacute injury. COMPARISON: [...] | | | Transcribed Date/Time: 07/14/2015 (1022) Banquet Chef: FLUENCY PAGE 1 | | Signed Report [...] | | | | Transcribed Date/Time: 07/14/2015 (7602) | | Banquet Chef: YORDY | | | | | | [...]
--- OUTSIDE RECORDS SUMMARY | ~2019-08-24 | XMS | Encounter Summary ---
Demographics + + + | Address | [address] | | | [place] [address] | + + + | Home Phone | | + + + | Preferred Language | Unknown | + + + | Marital Status | Single | + + + | Episcopal Affiliation | LUT | + + + [...] [place] | | | | | [address] | | + + + + + Care Team Providers + +------+ + | Care Patient Safety Officer Name | Role | Phone | + +------+ + | Adilia Bob DOMESTIC TECHNICIAN | PCP | | + +------+ + Encounter Details +--------+ + + + + | Date | Type | Department | Care Team | Description | +--------+ + + + + | 12/08/ | Webfed Offset Press Operator | Infectious | Lavinia Peck, | Osteomyelitis of | | 2013 | | Diseases at [address] | MD [address] | knee region (HCC) | | | | [address] | (Primary Dx) | | | | [address] | [place] [address] | | | | | Mailcode: L457 | [phone] | | | | | [facility] | | | | | | [place], [place] | | | | | | [address] | | | | | | [phone] | | | +--------+ + + + [...]
--- OUTSIDE RECORDS SUMMARY | ~2019-08-24 | XMS | Encounter Summary ---
Demographics + + + | Address | [address] | | | [place] [address] | + + + | Home Phone [...] [place] | | | | | [address] | | + + + + + Care Team Providers + +------+ + | Care Rn Occupational Health Name | Role | Phone | + [...] | | | | | | [place], | | | | | | [place] [address] | | | | | | [phone] | | | +--------+ + + + [...]
--- OUTSIDE RECORDS SUMMARY | ~2019-08-24 | XMS | Encounter Summary ---
Demographics + + + | Address | [address] | | | [place] [address] | + + + | Home Phone [...] [place] | | | | | [address] | | + + + + + Care Team Providers + +------+ + | Care Shovel Log Loader Operator Name | Role | Phone | [...] + + | 09/02/ | Hospital | [facility] [address] | Alton Hernandez MD | | | 2012 - | Encounter | [address] | | | | | | [place] | | | | 09/05/ | | [place] [address] | | | | 2012 | | [phone] | | | +--------+ + + + [...] - 09/10/2012 8:12 AM PST [facility] DEPARTMENT OF ORTHOPAEDICS & REHABILITATION INPATIENT HOSPITAL DISCHARGE SUMMARY & INTERDISCIPLINARY INSTRUCTIONS Patient: Sandy Marc CSN: [id number] Admission Date: 09/02/2012 Discharge Date: 09/05/2012 Attending Physician: Alton Hernandez MD PCP: SAEED Presley Service: [facility] Orthopaedics & Rehabilitation Diagnoses Principal Final [...] for > 5 years. , Historical Med [facility] Orthopaedic Service Pain Policy At the [...] our pleasure. David Peter MD Pager # [phone] documented in this enc ounter Discharge Instructions Instructions Sally Gupta RN - 09/04/2012Formatting of this note might be different f rom the original. ADDITIONAL INFORMATION: [facility] will provide IV antibiotics and education. They can be r eached at: [phone]. You will need to go to [facility] ([phone] - Unit C) for PICC line dressin [...] Arthritis: After Your Visit", log into your [email or web address] account at [email or web address]. You can enter C265 in the [employer]" search box. Not on Peekt? Review the MyChart section of your After Visit Summary for directions on ho w to sign up. [phone] [employer]. Care instructions adapted under license by [facility]. This care instruction is for use with your licensed healthcar e professional. If you have questions about a medical condition or this instruction, always ask your healthcare professional. [employer] disclaims any warranty or liabili ty for your use of this information. Content Version: 9.5.32078; Last Revised: July 18, 2011 Patient Education [...] provider under separate cover. Anticipated OPAT Setting: [facility] [phone] f: [phone] ID/OPAT Clinic follow-up: OPAT clinic visit in 1-2 weeks after discharge in conjunction wit h [facility] Orthopedic Service. We will call to schedule this appointment after patient is disch arged. Interdisciplinary Communication: Please notify OPAT clinic 24-48 hours prior to discharge b y calling [phone] (We need anticipated discharge date & where patient is going; i.e. name, ph one, and fax for home infusion vendor, custodial facility, or daily outpatient infusio center providing outpatient antibiotic therapy services.) [facility] Department of Infectious Disease Outpatient IV Antibiotic Therapy Clinic (OPAT) Pager ID: [phone] [facility]. Mail Code L457 [place] [address] OPAT teaching note: Education and training for patient self management with a PICC line and extended use IV antibiotics I received an OPAT Clinic Consult from the Inpatient Infectious Diseases Service. I have re viewed the records and introduced myself to Sandy Marc today. I explained that I am from the OPAT (Outpatient Parenteral Antibiotic Treatment) team, an out-patient branch of [facility] Infectious Diseases team that has been [...] immediately, and if unable to contact [facility] or the infus ion service provider, then to present to the nearest ED. I verified that the patient has a primary care provider, and that they will follow-up with them following this hospitalization in regards to other medical issues such as chronic pain, diabetes, or high blood pressure for which we do not provide any care. I provided the patient with the [facility] welcome letter that reiterates the above teaching. I spent 45 minutes in education and training in patient self management for IV antibiotic a nd PICC line use with greater than 50% spent on counseling and/or coordination of care. [facility] DEPARTMENT: IDC INFECT DIS CONSULT - [phone] Place of Service: Inpatient Date of Service: 09/04/2012 CSN: [id number] Suggested Modifier: OPATC David Angel MD - [...] made with LENCHO Peter MD Pager # [phone] David Angel MD - 09/03/2012 7:53 AM [...] 6 weeks David Peter MD Pager # [phone] Malathi Mccauley MD - 09/03/2012 1:27 AM [...] See brief op note MALATHI BRYANT MD [facility] Department of Orthopaedics & Rehabilitation [address] [place] [address] Mail Code: OP31 [facility] [address] documented in this e ncounter Plan of [...] + + + | IP CONSULT TO [facility] | Routin | 09/03/2012 | [...] | + + + + + | [facility] | [address] | [place] [address] | | | SERVICES, ELLIE | JOY [...] [facility] | [address] | [place] [address] | | | SERVICES, CORE | PARK [...] | + + + + + | [facility] | [address] | [place] [address] | | | SERVICES, [facility] | [address] | | | + + + + + OPERATION RECORD (09/03/2012 2:02 PM PST) + + | Transcriptions | + + | David Peter MD - 09/03/2012 12:20 PM PST Date: 09/02/2012ttending | | Surgeon: Alton Hernandez M.D.Contact Acid Plant Operator Helper(s): David | | TAQUERIA Peterreoperative Diagnosis(es):1. Left [...] by | | Dr. Jerald Don in [place] on December 10, 2011. At that time, [...] the reamers. We then used our canal specialist field engineer | | to thoroughly wash out the [...] Thiago, M.Engr.General Orthopaedics, Trauma JUAN C / [id number] / [id number] / [id number] /D: | | 09/02/2012T: 09/03/2012 | | | | | + + X-RAY PORTABLE CHEST 1 VIEW (09/03/2012 9:51 AM PST) + + + + + + | Component | Value | Ref Range | Performed | Pathologist | | | | | At | Signature | + + + + + + | X-RAY | STUDY: NM CHEST 1 VIEW | | | | [...] (Unit/Room #): | | | 9k Diagnosis: [id number] Osteomyelitis of knee region 458232 AVN | | | (avascular necrosis of bone) 039299 Pathologic fracture of tibia or | | | fibula 777912 Septic arthritis of knee, left Indications: (Select [...] Lot # (or | | | Sticker): [id number] INSERTION SITE: - Basilic Left Local | [...] 09/03/2012Start Time: 0900Patient Location (Unit/Room #): 9kDiagnosis: 738333 | | Osteomyelitis of knee [id number] AVN (avascular necrosis of bone)909953 Pathologic | | fracture of tibia or [id number] Septic arthritis of knee, leftIndications: (Select all [...] CATHETERProduct | | Name: RicardoConstruction: Single4 Fr60cm [id number] TrimmedLot # (or Sticker): | | [id number] SITE: - BasilicLeftLocal anesthetic used: lidocaineSedation used: [...] |8cm Trimmed | |Lot # (or Sticker): [id number] | | | |INSERTION SITE: - Basilic [...] | + + + + + | [facility] | [address] | [place] [address] | | | SERVICES, CORE | JOY [...] | + + + + + | [facility] | [address] | [place] [address] | | | SERVICES, CORE | JOY [...] | | + +---------+ + + | [facility] DEPARTMENT OF | | | | [...] | | + +---------+ + + | [facility] DEPARTMENT OF | | | | [...] | | | Final SMEAR:No | | [place] | | | | fungal elements seen [...] + | [facility] - | [address] | [place] [address] | | | [place] | | | [...] | | Final SMEAR:AFB not | | [facility] | | | | detected [...] + | [facility] - | [address] | [place] [address] | | | [place] | | | [...] | + + + + + | [facility] - | [address] | [place] [address] | | | [place] | | | [...] | | Final SMEAR:AFB not | | [place] | | | | detected source: left [...] + | [facility] - | [address] | [place] [address] | | | [place] | | | [...] | | | Final SMEAR:No | | [place] | | | | fungal elements seen [...] + | [facility] - | [address] | [place] [address] | | | [place] | | | [...] | + + + + + | [facility] - | [address] | [place] [address] | | | [place] | | | | + + + [...] | | RESULT | Tissue | | [facility] - | | | | Final SMEAR:No | | [place] | | | | fungal elements seen [...] | + + + + + | [facility] - | [address] | [place] [address] | | | [place] | | | [...] + | [facility] - | [address] | [place] [address] | | | [place] | | | | + + + [...] + | [facility] - | [address] | [place] [address] | | | [facility] | | | | + [...] | | | Final SMEAR:No | | [place] | | | | fungal elements seen [...] + | [facility] - | [address] | [place] [address] | | | [place] | | | [...] + | [facility] - | [address] | [place] [address] | | | [facility] | | | | + [...] | | Final GRAM STAIN:No | | [place] | | | | squamous epithelial | [...] | + + + + + | [facility] - | [address] | [place] [address] | | | [place] | | | | + + + [...] | | | Final SMEAR:No | | [place] | | | | fungal elements seen [...] + | [facility] - | [address] | [place] [address] | | | [place] | | | | + + + [...] | | Final SMEAR:AFB not | | [place] | | | | detected source: left [...] | + + + + + | [facility] - | [address] | [place] [address] | | | [place] | | | [...] | + + + + + | [facility] | [address] | [place] [address] | | | [place] | | | | + + + [...] | | RESULT | Tissue | | [facility] | | | | Final SMEAR:No | | [place] | | | | fungal elements seen [...] + | [facility] - | [address] | [place] [address] | | | [place] | | | | + + + [...] | | Final SMEAR:AFB not | | [place] | | | | detected source: left [...] | + + + + + | [facility] - | [address] | [place] [address] | | | [place] | | | [...] | + + + + + | [facility] - | [address] | [place] [address] | | | [place] | | | [...] + | [facility] - | [address] | [place] [address] | | | [facility] | | | | + [...] | | Final SMEAR:AFB not | | [place] | | | | detected source: left [...] + | [facility] - | [address] | [place] [address] | | | [place] | | | [...] + | [facility] - | [address] | [place] [address] | | | [facility] | | | | + [...] | | | Final SMEAR:No | | [facility] | | | | fungal [...] + | [facility] - | [address] | [place] [address] | | | [place] | | | | + + + [...] | | Final SMEAR:AFB not | | [place] | | | | detected source: 3) [...] + | [facility] - | [address] | [place] [address] | | | [place] | | | | + + + [...] + | [facility] - | [address] | [place] [address] | | | [facility] | | | | + [...] + | [facility] - | [address] | [place] [address] | | | [place] | | | | + + + [...] + | [facility] - | [address] | [place] [address] | | | [place] | | | | + + + [...] | + + + + + | [facility] - | [address] | [place] [address] | | | [place] | | | | + + + [...] | | RESULT | Tissue | | [facility] - | | | | Final SMEAR:No | | [place] | | | | fungal elements seen [...] | + + + + + | [facility] - | [address] | [place] [address] | | | [place] | | | [...] | | Final SMEAR:AFB not | | [facility] | | | | detected [...] + | [facility] - | [address] | [place] [address] | | | [place] | | | [...] + | [facility] - | [address] | [place] [address] | | | [place] | | | | + + + [...] | | | Final CULTURE | | [place] | | | | RESULT:No growth | [...] + | [facility] - | [address] | [place] [address] | | | [place] | | | | + + + [...] | | | | | Shanae Gutierrez PLewis | | | | | [...] | + + + + + | [facility] | [address] | [place] [address] | | | PATHOLOGY | [address] [...]
--- OUTSIDE RECORDS SUMMARY | ~2019-08-24 | XMS | Encounter Summary ---
Demographics + + + | Address | [address] | | | [place] [address] | + + + | Home Phone [...] [place] | | | | | [address] | | + + + + + Care Team Providers + +------+ + | Care Deck Hand Name | Role | Phone [...] | | | | necrosis of | [facility] | [place] | | | | | bone) (HCC) | Rd | [address] | | | | | Septic | [place], [place] | [place], | | | | | 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[address] | [place] [address] | | | | | knee, left | | Phone: | | | | | ([facility]) | | [phone] | | | | | Procedures | | Fax: | | | | | CONSULT TO | | [phone] | | | | | INFECTIOUS | [...] | | | Osteomyeliti | Family | [address] [facility] | | | | | s of knee | Health | [facility] | | | | | region ([facility]) | Associates | Rd [place], | | | | | AVN | [address] | [place] | | | | | (avascular | [address] | [address] | | | | | necrosis of | [place], | | | | | | bone) ([facility]) | [place] [address] | | | | | | Pathologic | Phone: | | | | | | fracture of | [phone] | | | | | | tibia or | Fax: | | | | | | fibula | [phone] | | | | | | Septic | | | | | | | 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| | | | | | knee, left | | | | | | | ([facility]) | | | | | | | Procedures | | | | | | | REQUEST TO | | | | | | | SURGERY | | | | | | | AIRPLANE NAVIGATOR | | | | | | | MO PARTIAL | | | | | | | REMOVAL OF | | | | | | | TIBIA MO | | | | | | | INSERTION | | | | | | | DRUG IMPLANT | | | | | | | DEVICE MO | | | | | | | KNEE | | | | | | | SCOPE,SHAVE | | | | | | | ARTICULAR | | | | | | | CART MO | | | | | | | [...] | | | | | Procedures | [place], [place] | [address] | | | | | MRI KNEE | [address] | [place] | | | | | LT WWO CONT | Phone: | Research | | | | | | [phone] | Center | | | | | | Fax: | [place], [place] | | | | | | [phone] | [address] | | | | | | | Phone: | | | | | | | [phone] | | | | | | | Fax: | | | | | | | [phone] | +--------+--------+ + + + + Reason [...] s, lower leg | REFERRING | Rd [place], | | | | | L medial | PROVIDER PER | [place] | | | | | tibial | PT | [address] | | | | | plateau fx [...] | [facility] | | of bone) ([facility]); | | | | [place], [place] | | Pathologic fracture | | | | [address] | | of tibia or fibula; | | | | [phone] | | Septic 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| | | | | knee, left ([facility]) | +--------+---------+ + + + Social [...] might be different fr om the original. [facility] Orthopaedic Clinic- New Patient Referring Physician: Dr. [...] plateau fracture by Dr. Jerald Don in [place] on 12/10/11. Calcium phosphate cement was used [...] MRI w/ contrast done on 07/09/12 at [facility], but are unable to view the images [...] subchondral | | | | | | Z2guiufv hyperintensity | | | | | | [...] + | [facility] - | [address] | [place] [address] | | | [place] | | | [...] [facility] | [address] | [place] [address] | | | SERVICES, CORE | PARK [...] | | | LABORATORY | | | MICRONESIAN | | | SERVICES, | | | [...] [facility] | [address] | [place] [address] | | | SERVICES, CORE | JOY [...]
--- OUTSIDE RECORDS SUMMARY | ~2019-08-24 | XMS | Encounter Summary ---
Demographics + + + | Address | [address] | | | [place] [address] | + + + | Home Phone [...] + | Grisel Marc | ECON | [address] | | | | | [place] | | | | | [address] | | + + + + + Care Team Providers + +------+ + | Care Hat Block Bench Hand Name | Role | Phone | [...] | | | | | unspecified | [address] | [address] | | | | | chronicity | [place], | [place], [place] | | | | | Tears of | [place] | [address] | | | | | meniscus and | [address] | Phone: | | | | | anterior | Phone: | [phone] | | | | | cruciate | [phone] | Fax: | | | | | ligament of | Fax: | [phone] | | | | | left knee, | [phone] | | | | | | initial | | | | | | | encounter | | | | | | | Procedures | | | | | | | MRI KNEE | | | | | | | LEFT WO | | | | | | | CONTRAST NM | | | | | | [...] | | | Orthopaedic Surgery | Blvd [place], [place] | chronicity (Primary | | | | [address] | [address] | Dx); Tears of | | | | [place], [place] | [phone] | meniscus and | | | | [address] | | anterior cruciate | | | | [phone] | | ligament of left | | [...] Marc is a 28 y.o. female from [place] who presents to the office today for [...] Follow up: After MRI Jaci Blue PA-C [facility] Orthopaedics and Rehabilitation Orthopaedic Physician Laborer [employer] [facility] Orthopaedics and Sports Medicine [address] [place] [address] Office: [phone] documented in this e ncounter Plan of [...] | + + + | [address] [place] [address] | [facility] | | [place] [address] | [facility] | | [phone] Name: SANDY MARC Phys: | RADIOLOGY | | JACI BLUE : 1990 Sex: F CSN: | | | [id number] MR# [id number] Exam Date: 06/04/2019 | | | EXAM: [...] Transcribed | | | Date/Time: 06/04/2019 11:28 Restaurant Shift Supervisor: FLUENCY | | + + + + + | Procedure Note | + + | Interface, Radiology Results - 06/04/2019 11:36 AM PDT [address] | | [address] [place] [address] | | Name: SANDY MARC Phys: JACI BLUE : 1990 Sex: F | | CSN: [id number] MR# [id number] Exam Date: 06/04/2019 EXAM:LEFT LOWER EXTREMITY | [...] | | |Transcribed Date/Time: 06/04/2019 11:28 | |Restaurant Shift Supervisor: FLUENCY | | | | | | [...] | + + + | [address] [place] [address] | [facility] | | [place] [address] | DEPARTMENT OF | | [phone] Name: SANDY MARC Phys: | RADIOLOGY | | JACI BLUE : 1990 Sex: F CSN: | | | [id number] MR# [id number] Exam Date: 06/04/2019 | | | EXAM: X-RAY KNEE 3 VIEWS LEFT 50978; X-RAY KNEE 2 VIEWS RIGHT | | | 11066 CLINICAL HISTORY: Left knee pain. COMPARISON: None [...] Transcribed Date/Time: 06/04/2019 | | | 23:16 Restaurant Shift Supervisor: YORDY | | + + + + + | Procedure Note | + + | Interface, Radiology Results - 06/04/2019 11:21 PM PDT [address] | | [address] [place] [address] | | Name: SANDY MARC Phys: JACI BLUE : 1990 Sex: F | | CSN: [id number] MR# [id number] Exam Date: 06/04/2019 EXAM:X-RAY KNEE 3 VIEWS | | LEFT 51025; X-RAY KNEE 2 VIEWS RIGHT 50460 CLINICAL HISTORY:Left knee pain. | | COMPARISON:None [...] | | |Transcribed Date/Time: 06/04/2019 23:16 | |Restaurant Shift Supervisor: FLUENCY | | | | | | [...] Street | [facility] | | [place] [address] | DEPARTMENT OF | | [phone] Name: SANYD MARC Phys: | RADIOLOGY | | JACI BLUE : 1990 Sex: F CSN: | | | [id number] MR# [id number] Exam Date: 06/04/2019 | | | EXAM: X-RAY KNEE 3 VIEWS LEFT 54250; X-RAY KNEE 2 VIEWS RIGHT | | | [address] CLINICAL HISTORY: Left knee pain. COMPARISON: None [...] Transcribed Date/Time: 06/04/2019 | | | 23:16 Restaurant Shift Supervisor: FLUENCY | | + + + + + | Procedure Note | + + | Interface, Radiology Results - 06/04/2019 11:21 PM PDT [address] | | [place] [address] | | Name: SANDY MARC Phys: JACI BLUE : 1990 Sex: F | | CSN: [id number] MR# [id number] Exam Date: 06/04/2019 EXAM:X-RAY KNEE 3 VIEWS | | LEFT 37881; X-RAY KNEE 2 VIEWS RIGHT 69433 CLINICAL HISTORY:Left knee pain. | | COMPARISON:None [...] | | |Transcribed Date/Time: 06/04/2019 23:16 | |Restaurant Shift Supervisor: FLUENCY | | | | | | [...]
--- OUTSIDE RECORDS SUMMARY | ~2019-08-24 | XMS | Encounter Summary ---
Demographics + + + | Address | [address] | | | [place] [address] | + + + | Home Phone [...] [place] | | | | | [address] | | + + + + + Care Team Providers + +------+ + | Care Mechanical Manufacturing Technician Name | Role | Phone | [...] | | | | | | [place], | | | | | | [place] [address] | | | | | | [phone] | | | +--------+ + + + [...]
--- OUTSIDE RECORDS SUMMARY | ~2019-08-24 | XMS | Encounter Summary ---
Demographics + + + | Address | [address] | | | [place] [address] | + + + | Home Phone [...] + | Grisel Marc | ECON | [address] | | | | | [place] | | | | | [address] | | + + + + + Care Team Providers + +------+ + | Care Car Jockey Name | Role | Phone | + [...] | | | | | right | [address] | NW | | | | | Procedures | [place], | [place] | | | | | MRI KNEE RT | [place] | [address] | | | | | [place] | [address] | Phone: | | | | | MRI LOWER | Phone: | [phone] | | | | | EXTREM JT, | [phone] | Fax: | | | | | W/O CONTRAST | Fax: | [phone] | | | | | | [phone] | | +--------+--------+ + + + + [...] knee | [address] | | | | | | | [address] THE | | | | | | [place], | [place] | | | | | | [place] [address] | [address] | | | | | | Phone: | Phone: | | | | | | [phone] | [phone] | | | | | | Fax: | Fax: | | | | | | [phone] | [phone] | +--------+--------+ + + + + Encounter [...] | | [address] | [address] | | | | | [address] | [phone] | | | | | [place], [place] | | | | | | [address] | | | | | | [phone] | | | +--------+---------+ + + + [...]
--- OUTSIDE RECORDS SUMMARY | ~2019-08-24 | XMS | Encounter Summary ---
Demographics + + + | Address | [address] | | | [place] [address] | + + + | Home Phone [...] [place] | | | | | [address] | | + + + + + Care Team Providers + +------+ + | Care Sewer Maintenance Supervisor Name | Role | Phone | [...] | | | | | Health | [facility] | | | | | | Associates | Rd | | | | | | [address] | [place], [place] | | | | | | [address] | [address] | | | | | | [place], | | | | | | | [place] [address] | | | | | | | Phone: | | | | | | | [phone] | | | | | | | Fax: | | | | | | | [phone] | | +--------+--------+ + + + + [...] | | | [address] | [place] [address] | | | | | Mailcode: [id number] | [phone] | | | | | Phys[facility] | | | | | | [address] | | | | | | [facility] [place] | | | | | | [address] | | | | | | [phone] | | | +--------+---------+ + + + [...] FOLLOW UP Referrring Physician: Alton Hernandez MD [address] [place] [address] Primary Care Physician: [facility] [address], [address] [place] [address] Ms. Marc presents to Infectious Diseases Clinic regarding scheduled follow up. Please refer to prior documentation including inpatient OPAT teaching note, outpatient OPAT order checker packer processer for antibiotic therapy, lab monitoring History other than "Interim History" below is directly copied from previous ID notes to darya mcdonough. In addition I reviewed the history from the patient's [facility] admiss ion, including but not limited to all pertinent ID consultation notes, surgical procedures & findings, culture results & lab tests, pathology reports, case management notes, and the spital discharge summary.Sandy Marc is a 22 y.o. female a couple of weeks of knee p ain in November 2011 and then was doing rodeo on her horse going around [employer], and she was le aning out away [...] placement of antibiotic beads 09/03/2012: HIRAM Silva [facility] Operative Findings: There were no gross [...] She was seen in the ER in [place] and had a CT Thor ax that [...] off antibiotics for two months Assessment/Plan Ms. Mrac has a quiet leg having been off [...] Marc follow up in [facility] [place] I spent 20 minutes in a face-to face visit with the patient, with over 50% of time spen t in councelling the patient. We discussed infection, antibiotics, duration of therapy, lab results, and follow-up planning, as described above. ZOEY PECK MD INFECTIOUS DISEASES [address] [place] [address] Mailcode: [id number] [place] [address] documented in this e ncounter Plan of Treatment Not on filedocumented as of this encounter Visit Diagnoses + + | Diagnosis | + + | Osteomyelitis of knee region (HCC) - Primary Unspecified osteomyelitis, lower leg | + + documented in this encounter
--- OUTSIDE RECORDS SUMMARY | ~2019-08-24 | XMS | Encounter Summary ---
Demographics + + + | Address | [address] | | | [place] [address] | + + + | Home Phone [...] [place] | | | | | [address] | | + + + + + Care Team Providers + +------+ + | Care Interior Assemblies Developer Prover Name | Role | Phone | + [...] | | | osteomyeliti | Street | [facility] | | | | | s, lower leg | [address] | Rd [place], | | | | | L knee | [place], | [place] | | | | | | [place] [address] | [address] | | | | | | Phone: | | | | | | | [phone] | | | | | | | Fax: | | | | | | | [phone] | | +--------+--------+ + + + + [...] | Osteomyelitis of | | | | [place], [place] | | knee region (HCC); | | | | [address] | | Septic 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| | | [phone] | | knee, left ([facility]) | +--------+---------+ + + + Social [...] horseback riding. However in the last w timbi-sha shoshone and a half she has developed some [...] seconds capillary refill. Palpable dorsalis pedis and ore dressing engineer ior tibial pulses. X-RAYS: Reviewed x-rays with [...] MD [facility] [address] [facility] Mailcode: [id number] [place] [address] documented in this en counter [...]
--- OUTSIDE RECORDS SUMMARY | ~2019-08-24 | XMS | Encounter Summary ---
Demographics + + + | Address | [address] | | | [place] [address] | + + + | Home Phone [...] + + + | Author | [facility] | + + + | Organization | [facility] | + + + | Address | Unknown | + + + | Phone | Unavailable | + + + Support + + + + + | Name | Relationship | Address | Phone | + + + + + | Grisel Marc | ECON | [address] | | | | | [place] | | | | | [address] | | + + + + + Care Team Providers + +------+ + | Care E/M Engineer Name | Role | Phone | [...] | | | Orthopaedic Surgery | Blvd [place], [place] | chronicity (Primary | | | | [address] | [address] | Dx); Tears of | | | | [place], [place] | [phone] | meniscus and | | | | [address] | | anterior cruciate | | | | [phone] | | ligament of left | | [...] Marc is a 28 y.o. female from [place] who presents to the office today for [...] was referred fo r an MRI in [place] to evaluate this further. Her MRI description [...] MRI left knee from [facility] in [place] demonstrates Chronic ACL tear and medial join [...] tibial plateau fracture requiring multiple surgeries and exterminator helper IV antibiotics. Gisselle connolly was doing well until recent hyperextension injury. We reviewed detail of MRI including ACL tear, medial meniscus tear and medial cartilage loss. Risks of ACL reconstruction include i nfection and potentially continued pain/worsening of medial compartment arthritis. I will re view case with Dr Saba. Can potentially refer to [facility] if she is interested in ACL recon. Follow up: w/ Jayant Blue PA-C [facility] Orthopaedics and Rehabilitation Orthopaedic Physician Top Inventory Control Executive [facility] [address] [place] [address] Office: [phone] documented in this e ncounter Plan of [...]
--- OUTSIDE RECORDS SUMMARY | ~2019-08-24 | XMS | Encounter Summary ---
Demographics + + + | Address | [address] | | | [place] [address] | + + + | Home Phone [...] + | Grisel Marc | ECON | [address] | | | | | [place] | | | | | [address] | | + + + + + Care Team Providers + +------+ + | Care Weighter Name | Role | Phone | + [...] | | | | [address] | [address] | | | | | [address] | [phone] | | | | | [place] | | | | | | [address] | | | | | | [phone] | | | +--------+ + + + [...]
--- OUTSIDE RECORDS SUMMARY | ~2019-08-24 | XMS | Encounter Summary ---
Demographics + + + | Address | [address] | | | [place] [address] | + + + | Home Phone [...] [place] | | | | | [address] | | + + + + + Care Team Providers + +------+ + | Care Returns Clerk Name | Role | Phone | + +------+ + | Adilia Bob NEEDLE BOARD REPAIRER | PCP | | + +------+ + Encounter Details +--------+ + + + + | Date | Type | Department | Care Team | Description | +--------+ + + + + | 10/16/ | Senior Clinical Research Scientist | Infectious | [facility]id [facility] | Osteomyelitis of | | 2013 | | Diseases at [facility] | [place] | knee region (HCC) | | | | Floor [address] | | (Primary Dx) | | | | [address] | | | | | | Mailcode: L457 | | | | | | [facility] | | | | | | [place], [place] | | | | | | [address] | | | | | | [phone] | | | +--------+ + + + [...]
--- OUTSIDE RECORDS SUMMARY | ~2019-08-24 | XMS | Encounter Summary ---
Demographics + + + | Address | [address] | | | [place] [address] | + + + | Home Phone [...] + | Grisel Marc | ECON | [address] | | | | | [place] | | | | | [address] | | + + + + + Care Team Providers + +------+ + | Care Tin Can Laborer Name | Role | Phone | + +------+ + | Hina Peterson | PCP | | + +------+ + Encounter Details +--------+ + + + + | Date | Type | Department | Care Team | Description | +--------+ + + + + | 12/05/ | Hospital | [facility] | | | | 2015 | Encounter | Sports Medicine & | | | | | | Orthopaedic Surgery | | | | | | [address] | | | | | | [place] | | | | | | [address] | | | | | | [phone] | | | +--------+ + + + [...]
--- OUTSIDE RECORDS SUMMARY | ~2019-08-24 | XMS | Encounter Summary ---
Demographics + + + | Address | [address] | | | [place] [address] | + + + | Home Phone [...] + | Grisel Marc | ECON | [address] | | | | | [place] | | | | | [address] | | + + + + + Care Team Providers + +------+ + | Care Field Cane Scaler Name | Role | Phone | + +------+ + | Hina Peterson | PCP | | + +------+ + Encounter Details +--------+ + + + + | Date | Type | Department | Care Team | Description | +--------+ + + + + | 06/04/ | Hospital | [facility] | | | | 2018 | Encounter | Sports Medicine & | | | | | | Orthopaedic Surgery | | | | | | [address] | | | | | | [place] | | | | | | [address] | | | | | | [phone] | | | +--------+ + + + [...] | + + + | [address] [place] [address] | [facility] | | [place] [address] | [facility] | | [phone] Name: MINNIESHARIFYOU Phys: | RADIOLOGY | | IZABELLAJACI : 1990 Sex: F CSN: | | | [id number] MR# [id number] Exam Date: 06/04/2019 | | | EXAM: X-RAY KNEE 3 VIEWS LEFT 40326; X-RAY KNEE 2 VIEWS RIGHT | | | [id number] CLINICAL HISTORY: Left knee pain. COMPARISON: None [...] Transcribed Date/Time: 06/04/2019 | | | 23:16 Professional Athlete: FLUENCY | | + + + + + | Procedure Note | + + | Interface, Radiology Results - 06/04/2019 11:21 PM PDT [address] | | [address] [place] [address] | | Name: SANDY MARC Phys: JACI PAREKH : 1990 Sex: F | | CSN: [id number] MR# [id number] Exam Date: 06/04/2019 EXAM:X-RAY KNEE 3 VIEWS | | LEFT 05312; X-RAY KNEE 2 VIEWS RIGHT 13367 CLINICAL HISTORY:Left knee pain. | | COMPARISON:None [...] | | |Transcribed Date/Time: 06/04/2019 23:16 | |Professional Athlete: FLUENCY | | | | | | [...] Street | [facility] | | [place] [address] | DEPARTMENT OF | | [phone] Name: SANDY MARC Phys: | RADIOLOGY | | JACI PAREKH : 1990 Sex: F CSN: | | | [id number] MR# [id number] Exam Date: 06/04/2019 | | | EXAM: X-RAY KNEE 3 VIEWS LEFT 35238; X-RAY KNEE 2 VIEWS RIGHT | | | 72000 CLINICAL HISTORY: Left knee pain. COMPARISON: None [...] Transcribed Date/Time: 06/04/2019 | | | 23:16 Professional Athlete: FLUENCY | | + + + + + | Procedure Note | + + | Interface, Radiology Results - 06/04/2019 11:21 PM PDT [address] | | [address] [place] [address] | | Name: SANDY MARC Phys: JACI PAREKH : 1990 Sex: F | | CSN: [id number] MR# [id number] Exam Date: 06/04/2019 EXAM:X-RAY KNEE 3 VIEWS | | LEFT 81521; X-RAY KNEE 2 VIEWS RIGHT 12938 CLINICAL HISTORY:Left knee pain. | | COMPARISON:None [...] | | |Transcribed Date/Time: 06/04/2019 23:16 | |Professional Athlete: FLUENCY | | | | | | [...]
--- OUTSIDE RECORDS SUMMARY | ~2019-08-24 | XMS | Encounter Summary ---
Demographics + + + | Address | [address] | | | [place] [address] | + + + | Home Phone [...] [place] | | | | | [address] | | + + + + + [...] | | | | necrosis of | [facility] | [place] | | | | | bone) (HCC) | Rd | [address] | | | | | Septic | [place], [place] | [place], | | | | | 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[address] | [place] [address] | | | | | knee, left | | Phone: | | | | | ([facility]) | | [phone] | | | | | Procedures | | Fax: | | | | | CONSULT TO | | [phone] | | | | | INFECTIOUS | [...] | | | Osteomyeliti | Family | [address] [facility] | | | | | s of knee | Health | [facility] | | | | | region ([facility]) | Associates | Rd [place], | | | | | AVN | [address] | [place] | | | | | (avascular | St[address] | [address] | | | | | necrosis of | [place], | | | | | | bone) ([facility]) | [place] [address] | | | | | | Pathologic | Phone: | | | | | | fracture of | [phone] | | | | | | tibia or | Fax: | | | | | | fibula | [phone] | | | | | | Septic | | | | | | | 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| | | | | | knee, left | | | | | | | ([facility]) | | | | | | | Procedures | | | | | | | REQUEST TO | | | | | | | SURGERY | | | | | | | LICENSED INSURANCE AGENT | | | | | | | SC PARTIAL | | | | | | | REMOVAL OF | | | | | | | TIBIA SC | | | | | | | INSERTION | | | | | | | DRUG IMPLANT | | | | | | | DEVICE SC | | | | | | | KNEE | | | | | | | SCOPE,SHAVE | | | | | | | ARTICULAR | | | | | | | CART SC | | | | | | | [...] | | | | | Procedures | [place], [place] | [address] | | | | | MRI KNEE | [address] | [place] | | | | | LT WWO CONT | Phone: | Research | | | | | | [phone] | Center | | | | | | Fax: | [place], [place] | | | | | | [phone] | [address] | | | | | | | Phone: | | | | | | | [phone] | | | | | | | Fax: | | | | | | | [phone] | +--------+--------+ + + + + Reason [...] s, lower leg | REFERRING | Rd [place], | | | | | L medial | PROVIDER PER | [place] | | | | | tibial | [place] | [address] | | | | | plateau fx [...] | [facility] | | of bone) ([facility]); | | | | [place], [place] | | Pathologic fracture | | | | [address] | | of tibia or fibula; | | | | [phone] | | Septic 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| | | | | knee, left ([facility]) | +--------+---------+ + + + Social History [...] might be different fr om the original. [facility] Orthopaedic Clinic- New Patient Referring Physician: [...] plateau fracture by Dr. Jerald Don in [place] on 12/10/11. Calcium phosphate cement was used [...] MRI w/ contrast done on 07/09/12 at [facility], but are unable to view the [...] subchondral | | | | | | K9hvtidh hyperintensity | | | | | | [...] + | [facility] - | [address] | [place] [address] | | | [place] | | | [...] LABORATORY | [address] | [place] [address] | | | SERVICES, CORE | PARK [...] | | | LABORATORY | | | [facility] | | | SERVICES, | | | [...] LABORATORY | [address] | [place] [address] | | | SERVICES, CORE | JOY [...]
--- OUTSIDE RECORDS SUMMARY | ~2019-08-24 | XMS | Encounter Summary ---
Demographics + + + | Address | [address] | | | [place] [address] | + + + | Home Phone [...] [place] | | | | | [address] | | + + + + + Care Team Providers + +------+ + | Care Decorative Engraver Apprentice Name | Role | Phone | + [...] + + + + | 09/07/ | Dining Car Hop | Infectious | [facility] | | | 2012 | | Diseases at [facility] | [place] | | | | | Floor [address] | | | | | | [address] | | | | | | Mailcode: [id number] | | | | | | [facility] | | | | | | [place], [place] | | | | | | [address] | | | | | | [phone] | | | +--------+ + + + [...]
--- OUTSIDE RECORDS SUMMARY | ~2019-08-24 | XMS | Encounter Summary ---
Demographics + + + | Address | [address] | | | [place] [address] | + + + | Home Phone [...] + | Grisel Marc | ECON | [address] | | | | | [place] | | | | | [address] | | + + + + + Care Team Providers + +------+ + | Care Bellmaker Name | Role | Phone | + [...] | | | | | unspecified | [address] | [address] | | | | | chronicity | [place], | [place], [place] | | | | | Tears of | [place] | [address] | | | | | meniscus and | [address] | Phone: | | | | | anterior | Phone: | [phone] | | | | | cruciate | [phone] | Fax: | | | | | ligament of | Fax: | [phone] | | | | | left knee, | [phone] | | | | | | initial | | | | | | | encounter | | | | | | | Procedures | | | | | | | MRI KNEE | | | | | | | LEFT WO | | | | | | | CONTRAST MA | | | | | | [...] | | | Orthopaedic Surgery | Blvd [place], [place] | chronicity (Primary | | | | [address] | [address] | Dx); Tears of | | | | [place], [place] | [phone] | meniscus and | | | | [address] | | anterior cruciate | | | | [phone] | | ligament of left | | [...] Marc is a 28 y.o. female from [place] who presents to the office today for [...] Follow up: After MRI Jaci Blue PA-C [facility] Orthopaedics and Rehabilitation Orthopaedic Physician Can Tender [facility] Orthopaedics and Sports Medicine [address] [place] [address] Office: [phone] documented in this e ncounter Plan of [...] | + + + | [address] [place] [address] | [facility] | | [place] [address] | [facility] | | [phone] Name: SANDY MARC Phys: | RADIOLOGY | | JACI BLUE : 1990 Sex: F CSN: | | | [id number] MR# [id number] Exam Date: 06/04/2019 | | | EXAM: [...] Transcribed | | | Date/Time: 06/04/2019 11:28 Import Customs Clearing Agent: FLUENCY | | + + + + + | Procedure Note | + + | Interface, Radiology Results - 06/04/2019 11:36 AM PDT [address] | | [address] [place] [address] | | Name: SANDY MARC Phys: JACI BLUE : 1990 Sex: F | | CSN: [id number] MR# [id number] Exam Date: 06/04/2019 EXAM:LEFT LOWER EXTREMITY | [...] | | |Transcribed Date/Time: 06/04/2019 11:28 | |Import Customs Clearing Agent: FLUENCY | | | | | | [...] | + + + | [address] [place] [address] | [facility] | | [place] [address] | DEPARTMENT OF | | [phone] Name: SANDY MARC Phys: | RADIOLOGY | | JACI LBUE : 1990 Sex: F CSN: | | | [id number] MR# [id number] Exam Date: 06/04/2019 | | | EXAM: X-RAY KNEE 3 VIEWS LEFT 82333; X-RAY KNEE 2 VIEWS RIGHT | | | [address] CLINICAL HISTORY: Left knee pain. COMPARISON: None [...] Transcribed Date/Time: 06/04/2019 | | | 23:16 Import Customs Clearing Agent: YORDY | | + + + + + | Procedure Note | + + | Interface, Radiology Results - 06/04/2019 11:21 PM PDT [address] | | [address] [place] [address] | | Name: SANDY MARC Phys: JACI BLUE : 1990 Sex: F | | CSN: [id number] MR# [id number] Exam Date: 06/04/2019 EXAM:X-RAY KNEE 3 VIEWS | | LEFT 79819; X-RAY KNEE 2 VIEWS RIGHT 11614 CLINICAL HISTORY:Left knee pain. | | COMPARISON:None [...] | | |Transcribed Date/Time: 06/04/2019 23:16 | |Import Customs Clearing Agent: FLUENCY | | | | | | [...] Street | [facility] | | [place] [address] | DEPARTMENT OF | | [phone] Name: SANDY MARC Phys: | RADIOLOGY | | JACI BLUE : 1990 Sex: F CSN: | | | [id number] MR# [id number] Exam Date: 06/04/2019 | | | EXAM: X-RAY KNEE 3 VIEWS LEFT 62442; X-RAY KNEE 2 VIEWS RIGHT | | | [address] CLINICAL HISTORY: Left knee pain. COMPARISON: None [...] Transcribed Date/Time: 06/04/2019 | | | 23:16 Import Customs Clearing Agent: FLUENCY | | + + + + + | Procedure Note | + + | Interface, Radiology Results - 06/04/2019 11:21 PM PDT [address] | | [place] [address] | | Name: SANDY MARC Phys: JACI BLUE : 1990 Sex: F | | CSN: [id number] MR# [id number] Exam Date: 06/04/2019 EXAM:X-RAY KNEE 3 VIEWS | | LEFT [address]64; X-RAY KNEE 2 VIEWS RIGHT 73776 CLINICAL HISTORY:Left knee pain. | | COMPARISON:None [...] | | |Transcribed Date/Time: 06/04/2019 23:16 | |Import Customs Clearing Agent: FLUENCY | | | | | | [...]
--- OUTSIDE RECORDS SUMMARY | ~2019-08-24 | XMS | Encounter Summary ---
Demographics + + + | Address | [address] | | | [place] [address] | + + + | Home Phone [...] [place] | | | | | [address] | | + + + + + Care Team Providers + +------+ + | Care Director Call Center Sales Name | Role | Phone | [...] (HCC) | | | | at [facility] 3rd Floor | | | | | | [address] | | | | | | [address] [place], [place] | | | | | | [address] | | | | | | [phone] | | | +--------+------+ + + + [...] e | 10:01 AM | knee region ([facility]) | procedure are in the | | | | PST | | results section. | + +--------+ + + + | HIV-1,2 AB/HIV-1 P24 | Routin | 08/25/2012 | Osteomyelitis of | Results for this | | AG SCRN | e | 10:01 AM | knee region ([facility]) | procedure are in the | | | | PST | | results section. | + +--------+ + + + | IGA, SERUM | Routin | 08/25/2012 | Osteomyelitis of | Results for this | | | e | 10:01 AM | knee region ([facility]) | procedure are in the | [...] [facility] | [address] | [place] [address] | | | SERVICES, CORE | PARK [...] [facility] | [address] | [place] [address] | | | SERVICES, SPECIAL | PARK [...] | | | | | in the [facility] | | | | | | LaboratoryTest Directory | | | | | | ([employer]). | | | | + + + [...] Directory | | | | | | (Qvolve). | | | | + + + [...] Directory | | | | | | (Qvolve). | | | | + + + [...] # | | | | | | [id number]). Access | | | | | | complete set of age- | | | | | | and/or | | | | | | gender-specificreference | | | | | | intervals for this test | | | | | | in the [facility] | | | | | | LaboratoryTest Directory | | | | | | ([employer]).Performed | | | | | | by [facility] | | | | | | [facility],[address] [place] [address] | | | | | | [place] [address] | | | | | | [phone] | | | | | | [facility], Magy Fernandez, | | | | [...] [facility] | [address] | [place], [place] | | | [facility] | | [address] | | + + + + + [...] | + + + + + | [facility] - | [address] | [place] [address] | | | [place] | | | | + + + + + documented in this encounter Visit Diagnoses + + | Diagnosis | + + | Osteomyelitis of knee region (HCC) Unspecified osteomyelitis, lower leg | + + documented in this encounter"
--- OUTSIDE RECORDS SUMMARY | ~2019-08-24 | XMS | Encounter Summary ---
Demographics + + + | Address | [address] | | | [place] [address] | + + + | Home Phone [...] Author + + + | Author | [facility] | + + + | Organization | [facility] | + + + | Address | Unknown | + + + | Phone | Unavailable | + + + Support + + + + + | Name | Relationship | Address | Phone | + + + + + | Grisel Marc | ECON | [address] | | | | | [place] | | | | | [address] | | + + + + + Care Team Providers + +------+ + | Care Door Fitter Name | Role | Phone | + [...] | | | | | | [place], | | | | | | [place] [address] | | | | | | [phone] | | | +--------+ + + + [...] | | + +---------+ + + | [facility] DEPARTMENT OF | | | | | RADIOLOGY | | | | + +---------+ + + documented in this encounter Visit Diagnoses + + | Diagnosis | + + | Osteomyelitis of knee region (HCC) Unspecified osteomyelitis, lower leg | + + documented in this encounter"
--- OUTSIDE RECORDS SUMMARY | ~2019-08-24 | XMS | Encounter Summary ---
Demographics + + + | Address | [address] | | | [place] [address] | + + + | Home Phone [...] [place] | | | | | [address] | | + + + + + Care Team Providers + +------+ + | Care Life Sciences Director Name | Role | Phone | [...] + + + + | 09/04/ | Pre K Special Education Teacher | Infectious | Brigid [facility] | | | 2012 | | [facility] at [facility] | [place] | | | | | Floor [address] | | | | | | [address] | | | | | | Mailcode: [id number] | | | | | | [facility] | | | | | | [place], [place] | | | | | | [address] | | | | | | [phone] | | | +--------+ + + + [...]
--- OUTSIDE RECORDS SUMMARY | ~2019-08-24 | XMS | Encounter Summary ---
Demographics + + + | Address | [address] | | | [place] [address] | + + + | Home Phone [...] + | Grisel Marc | ECON | [address] | | | | | [place] | | | | | [address] | | + + + + + Care Team Providers + +------+ + | Care Technical Support Director Name | Role | Phone | [...] | | | | | Unspecified | [address] | [address] | | | | | tear of | [place], | [place] | | | | | unspecified | [place] | [place], [place] | | | | | meniscus, | [address] | [address] | | | | | current | Phone: | Phone: | | | | | injury, left | [phone] | [phone] | | | | | knee, | Fax: | Fax: | | | | | initial | [phone] | [phone] | | | | | encounter | [...] | | | | | | | ID DUPLEX | | | | | | [...] Joseline Foy | | | | | [place], | [place], [place] | | | | | [place] [address] | [address] | | | | | [phone] | [phone] | | | | | | | [...] + + + | [address] | [facility] | | [place] [address] | DEPARTMENT OF | | [phone] Name: SANDY MARC Phys: | RADIOLOGY | | JACI BLUE : 1990 Sex: F CSN: | | | [id number] MR# [id number] Exam Date: 06/04/2019 | | | EXAM: [...] Transcribed | | | Date/Time: 06/04/2019 11:28 Conventional Mortgage Underwriter: FLUENCY | | + + + + + | Procedure Note | + + | Interface, Radiology Results - 06/04/2019 11:36 AM PDT [address] | | [place] [address] | | Name: SANDY MARC Phys: AJCI BLUE : 1990 Sex: F | | CSN: [id number] MR# [id number] Exam Date: 06/04/2019 EXAM:LEFT LOWER EXTREMITY | [...] | | |Transcribed Date/Time: 06/04/2019 11:28 | |Conventional Mortgage Underwriter: FLUENCY | | | | | | [...]
--- OUTSIDE RECORDS SUMMARY | ~2019-08-24 | XMS | Encounter Summary ---
Demographics + + + | Address | [address] | | | [place] [address] | + + + | Home Phone [...] [place] | | | | | [address] | | + + + + + Care Team Providers + +------+ + | Care Stage Set Designer Name | Role | Phone | [...] + + + + | 09/04/ | Contract Administrative Assistant | Infectious | Brigid Hardy | | | 2012 | | [facility] | [place] | | | | | Floor [address] | | | | | | [address] | | | | | | Mailcode: L457 | | | | | | [facility] | | | | | | [place], [place] | | | | | | [address] | | | | | | [phone] | | | +--------+ + + + [...]
--- OUTSIDE RECORDS SUMMARY | ~2019-08-24 | XMS | Encounter Summary ---
Demographics + + + | Address | [address] | | | [place] [address] | + + + | Home Phone [...] [place] | | | | | [address] | | + + + + + Care Team Providers + +------+ + | Care Didactic Program In Dietetics Director Name | Role | Phone | [...] [place] | | | | | | [place], [place] | | | | | | [address] | | | | | | [phone] | | | +--------+ + + + [...] | | e | of knee, left ([facility]) | | + +------+--------+ + + | SYNOVIAL FLUID, | Lab | Routin | Septic arthritis | Ordered: 02/12/2013 | | CRYSTALS | | e | of knee, left ([facility]) | | + +------+--------+ + [...]
--- OUTSIDE RECORDS SUMMARY | ~2019-08-24 | XMS | Encounter Summary ---
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: Surgeries scheduled in the [facility] ([address] [place] [address]): registration is located on the 4th floor of [facility] (Day Surgery). [facility] in the [facility]: registration is located on the 9th floor. Surgeries scheduled in [facility]: registration is located on the 6th floor. Surgeries scheduled in the [facility]: registration is located i n the [facility] on the first floor. For surgeries scheduled to take place at the [facility]: registration is l [...] you use specialized medical equipment at h [facility], please check with your provider before [...] in conjunction with Dr. Jovany almanzar from [place]. Her HPI is copied from her previous [...] plateau fracture by Dr. Jerald Don in [place] on 12/10/11. Calcium phosphate cement was used [...]
--- OUTSIDE RECORDS SUMMARY | ~2019-08-24 | XMS | Encounter Summary ---
Demographics + + + | Address | [address] | | | [place] [address] | + + + | Home Phone [...] [place] | | | | | [address] | | + + + + + Care Team Providers + +------+ + | Care Aquaculturist Name | Role | Phone | + [...]
--- OUTSIDE RECORDS SUMMARY | ~2019-08-24 | XMS | Encounter Summary ---
Demographics + + + | Address | [address] | | | [place] [address] | + + + | Home Phone [...] [place] | | | | | [address] | | + + + + + Care Team Providers + +------+ + | Care Manager Motor Name | Role | Phone | + +------+ + | Adilia Bob MAGAZINE GRINDER LOADER | PCP | | + +------+ + [...] | | | | | long-term | [place], [place] | Physician's | | | | | (current) | [address] | Pavilion | | | | | use of | | [place], [place] | | | | | antibiotics | | [address] | | | | | Procedures | | Phone: | | | | | VASC LAB | | [phone] | | | | | UPPER EXT | | Fax: | | | | | PSEUDOANEUR | | [phone] | | | | | COMP LEFT [...] | Infectious | Diagnoses | Mary | [place], | | | | Disease | 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 | | | | | (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) ([facility]) | Rd | [address] | | | | | Septic | [place], [place] | [place], | | | | | 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[address] | [place] [address] | | | | | knee, left | | Phone: | | | | | ([facility]) | | [phone] | | | | | Procedures | | Fax: | | | | | CONSULT TO | | [phone] | | | | | INFECTIOUS | [...] arm (Primary | | | | Floor [address] | | Dx); Encounter for | | | | [address] | | long-term (current) | | | | Mailcode: L457 | | use of antibiotics | | | | [facility] | | | | | | [place], [place] | | | | | | [address] | | | | | | [phone] | | | +--------+---------+ + + + [...] DISEASES CLINIC FOLLOW UP Primary Care Physician: [facility] [address] , [address] [place] [address] Ms. Marc presents to Infectious Diseases Clinic [...] doing rodeo on her horse going around [employer], and she was leaning out away from [employer]. Her legs spontaneously broke with pathological fracture. [...] placement of antibiotic beads 09/03/2012: HIRAM Silva [facility] Operative Findings: We began by performing [...] medullary canal. We then used our canal warp dresser to thoroughly washout the intramedullary c anal [...] She was seen in the ER in [place] and had a CT Thor ax that [...] nd follow-up planning. Brigid Hardy PA-C [facility] Department of Infectious Diseases Outpatient IV Antibiotic Therapy Clinic (OPAT) [phone] Pager ID: [phone] [facility] Mail Code I957 [place] [address] documented in this encounter Plan of Treatment [...] + + documented in this encounter Results VAS LAB VENOUS DUPLEX UPPER EXTREMITY LT (09/29/2012 [...] BACA, | | | | | | Yajaira. I have personally | | | | [...] Payton | | | | | | Constantine | | | | | | | [...]
--- OUTSIDE RECORDS SUMMARY | ~2019-08-24 | XMS | Encounter Summary ---
Demographics + + + | Address | [address] | | | [place] [address] | + + + | Home Phone [...] [place] | | | | | [address] | | + + + + + Care Team Providers + +------+ + | Care Chief Engineer Research Name | Role | Phone | + [...] [place] | | | | | Floor [address] | | | | | | [address] | | | | | | Mailcode: L457 | | | | | | [facility] | | | | | | [place], [place] | | | | | | [address] | | | | | | [phone] | | | +--------+ + + + [...]
--- OUTSIDE RECORDS SUMMARY | ~2019-08-24 | XMS | Encounter Summary ---
Demographics + + + | Address | [address] | | | [place] [address] | + + + | Home Phone | | + + + | Preferred Language | Unknown | + + + | Marital Status | | + + + | Jew Affiliation | Unknown | + + + | Race | Unknown | + + + | Ethnic Group | Unknown | + + + Author + + + | Author | [facility] | | | and [place] | + + + | Organization | [facility] | | | and [...] Team Providers + +------+ + | Care Decision Analyst Name | Role | Phone | [...] Provider Unknown | | | | | [place], [place] | [phone] | | | | | [address] | | | | | | [phone] | | | +--------+ + + + [...]
--- OUTSIDE RECORDS SUMMARY | ~2019-08-24 | XMS | Encounter Summary ---
Demographics + + + | Address | [address] | | | [place] [address] | + + + | Home Phone | | + + + | Preferred Language | Unknown | + + + | Marital Status | | + + + | Latter Day Affiliation | Unknown | + + + | Race | Unknown | + + + | Ethnic Group | Unknown | + + + Author + + + | Author | [facility] | | | and [place] | + + + | Organization | [facility] | | | [...] Providers + +------+ + | Care Computer Networker Name | Role | Phone | + [...] [place] | | | | | | [place] | | | | | | [address] | | | | | | [phone] | | | +--------+ + + + [...] M?MRN: | | | | | | [id number] | | | [id number] | | | riteri | | | [...] | | | St. | | | Center | | | y | | [...] | | | St. | | | Center | | | y H. | [...] | | | St. | | | Center | | | y H. | [...] | | ER J, | | | INTERNATIONAL ORGANIZER | | | Nurse | | | [...]
--- OUTSIDE RECORDS SUMMARY | ~2019-08-24 | XMS | Encounter Summary ---
Demographics + + + | Address | [address] | | | [place] [address] | + + + | Home Phone [...] [place] | | | | | [address] | | + + + + + Care Team Providers + +------+ + | Care Gang Punch Operator Name | Role | Phone | [...] | | [facility] | ADRIEN Johnson | | | | | Floor [address] | | | | | | [address] | | | | | | Mailcode: L457 | | | | | | [facility] | | | | | | [place], [place] | | | | | | [address] | | | | | | [phone] | | | +--------+ + + + [...]
--- OUTSIDE RECORDS SUMMARY | ~2019-08-24 | XMS | Encounter Summary ---
Demographics + + + | Address | [address] | | | [place] [address] | + + + | Home Phone [...] [place] | | | | | [address] | | + + + + + Care Team Providers + +------+ + | Care Ground Crew Linesman Name | Role | Phone | + [...] Pavilion | | | | | | [place], [place] | | | | | | [address] | | | | | | [phone] | | | +--------+ + + + [...]
--- OUTSIDE RECORDS SUMMARY | ~2019-08-24 | XMS | Encounter Summary ---
Demographics + + + | Address | [address] | | | [place] [address] | + + + | Home Phone [...] + + | Author | [facility] | + + + | Organization | [facility] | + + + | Address | Unknown | + + + | Phone | Unavailable | + + + Support + + + + + | Name | Relationship | Address | Phone | + + + + + | Grisel Marc | ECON | [address] | | | | | [place] | | | | | [address] | | + + + + + Care Team Providers + +------+ + | Care Yam Curer Name | Role | Phone | + [...] | | | | | Health | [facility] | | | | | | Associates | Rd | | | | | | [address] | [place], [place] | | | | | | [address] | [address] | | | | | | [place], | | | | | | | [place] [address] | | | | | | | Phone: | | | | | | | [phone] | | | | | | | Fax: | | | | | | | [phone] | | +--------+--------+ + + + + [...] | | | | [address] | [place] [address] | | | | | Mailcode: L457 | [phone] | | | | | [facility] | | | | | | [facility] [place] | | | | | | [address] | | | | | | [phone] | | | +--------+---------+ + + + [...] UP Referrring Physician: Alton Hernandez MD [address] [place] [address] Primary Care Physician: [facility] [address], [address] [place] [address] Ms. Marc presents to Infectious Diseases Clinic regarding scheduled follow up. History other than "Interim History" below is directly copied from previous ID notes to darya mcdonough. In addition I reviewed the history from the patient's [facility] admiss ion, including but not [...] placement of antibiotic beads 09/03/2012: HIRAM Silva [facility] Operative Findings: There were no gross [...] She was seen in the ER in [place] and had a CT Thor ax that [...] described above. ZOEY PECK MD INFECTIOUS DISEASES [address] [place] [address] Mailcode: L608 [place] [address] documented in this e ncounter Plan of Treatment Not on filedocumented as of this encounter Visit Diagnoses + + | Diagnosis | + + | Osteomyelitis of knee region (HCC) - Primary Unspecified osteomyelitis, lower leg | + + documented in this encounter
--- OUTSIDE RECORDS SUMMARY | ~2019-08-24 | XMS | Encounter Summary ---
Demographics + + + | Address | [address] | | | [place] [address] | + + + | Home Phone [...] [place] | | | | | [address] | | + + + + + Care Team Providers + +------+ + | Care Monitoring Tech Name | Role | Phone | + +------+ + | Adilia Bob METAL CASKET ASSEMBLER | PCP | | + +------+ + [...] | | | | | Procedures | [place], [place] | [address] | | | | | MRI KNEE | [address] | [place] | | | | | LT WWO CONT | Phone: | Research | | | | | | [phone] | [place] | | | | | | Fax: | [place], [place] | | | | | | [phone] | [address] | | | | | | | Phone: | | | | | | | [phone] | | | | | | | Fax: | | | | | | | [phone] | +--------+--------+ + + + + Encounter Details +--------+ + + + + | Date | Type | Department | Care Team | Description | +--------+ + + + + | 08/24/ | Hospital | Diagnostic Imaging | | | | 2012 | Encounter | Services at [facility] | | | | | | [address] | | | | | | Ana Rodrigues Mailcode: | | | | | | [address] [place] | | | | | | [facility] | | | | | | [place], [place] | | | | | | [address] | | | | | | [phone] | | | +--------+ + + + [...] subchondral | | | | | | [id number] hyperintensity | | | | | | [...] | | + +---------+ + + | [facility] DEPARTMENT OF | | | | | RADIOLOGY | | | | + +---------+ + + documented in this encounter Visit Diagnoses + + | Diagnosis | + + | Osteomyelitis of knee region (HCC) Unspecified osteomyelitis, lower leg | + + documented in this encounter"
--- OUTSIDE RECORDS SUMMARY | ~2019-08-24 | XMS | Encounter Summary ---
Demographics + + + | Address | [address] | | | [place] [address] | + + + | Home Phone [...] [place] | | | | | [address] | | + + + + + Care Team Providers + +------+ + | Care Senior Financial Accountant Name | Role | Phone | + +------+ + | dAilia BobP | PCP | | + +------+ [...] | | | | | | [place], | | | | | | [place] [address] | | | | | | [phone] | | | +--------+ + + + [...]
--- OUTSIDE RECORDS SUMMARY | ~2019-08-24 | XMS | Encounter Summary ---
Demographics + + + | Address | [address] | | | [place] [address] | + + + | Home Phone [...] + | Grisel Marc | ECON | [address] | | | | | [place] | | | | | [address] | | + + + + + Care Team Providers + +------+ + | Care Oss Architect Name | Role | Phone | [...] | | | [address] | [address] | | | | | [place] | [phone] | | | | | [address] | | | | | | [phone] | | | +--------+ + + + [...]
--- OUTSIDE RECORDS SUMMARY | ~2019-08-24 | XMS | Encounter Summary ---
Demographics + + + | Address | [address] | | | [place] [address] | + + + | Home Phone [...] [place] | | | | | [address] | | + + + + + Care Team Providers + +------+ + | Care Desilverizer Name | Role | Phone | + [...] Pavilion | | | | | | [place], [place] | | | | | | [address] | | | | | | [phone] | | | +--------+ + + + [...]
--- OUTSIDE RECORDS SUMMARY | ~2019-08-24 | XMS | Encounter Summary ---
Demographics + + + | Address | [address] | | | [place] [address] | + + + | Home Phone [...] + | Grisel Marc | ECON | [address] | | | | | [place] | | | | | [address] | | + + + + + Care Team Providers + +------+ + | Care Production Coordinator Name | Role | Phone | [...] | | [address] | [address] | | | | | [address] | [phone] | | | | | [place], [place] | | | | | | [address] | | | | | | [phone] | | | +--------+---------+ + + + [...] She had been followed by ID at [facility] also. She has had chronic symptoms of [...] She should keep it strong, use her cylinder checker brace as tolerated. Of course she knows [...]
--- OUTSIDE RECORDS SUMMARY | ~2019-08-24 | XMS | Encounter Summary ---
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 Surgeries scheduled in the [facility]: registration is located on the 9th floor. Surgeries scheduled in [facility]: registration is located on the 6th floor. Surgeries scheduled in the [facility]: registration is located i n the [facility] on the first floor. For surgeries scheduled to take place at the [facility]: registration is l [...] you use specialized medical equipment at h [facility], please check with your provider before [...] in conjunction with Dr. Jovany almanzar from [place]. Her HPI is copied from her previous [...] plateau fracture by Dr. Jerald Don in [place] on 12/10/11. Calcium phosphate cement was used [...]
--- OUTSIDE RECORDS SUMMARY | ~2019-08-24 | XMS | Encounter Summary ---
Demographics + + + | Address | [address] | | | [place] [address] | + + + | Home Phone [...] + + + | Author | [facility] | + + + | Organization | [facility] | + + + | Address | Unknown | + + + | Phone | Unavailable | + + + Support + + + + + | Name | Relationship | Address | Phone | + + + + + | Grisel Marc | ECON | [address] | | | | | [place] | | | | | [address] | | + + + + + Care Team Providers + +------+ + | Care Foreign Trade Teacher Name | Role | Phone | [...] | | | [address] | [address] | | | | | [place] | [phone] | | | | | [address] | | | | | | [phone] | | | +--------+ + + + [...]
--- OUTSIDE RECORDS SUMMARY | ~2019-08-24 | XMS | Encounter Summary ---
Demographics + + + | Address | [address] | | | [place] [address] | + + + | Home Phone [...] [place] | | | | | [address] | | + + + + + Care Team Providers + +------+ + | Care Physical Sciences Professor Name | Role | Phone | + +------+ + | Adilia Bob LENDING ADVISOR | PCP | | + +------+ + Encounter Details +--------+ + + + + | Date | Type | Department | Care Team | Description | +--------+ + + + + | 12/08/ | Brim Stretching Machine Operator | Infectious | Lavinia Peck, | Osteomyelitis of | | 2013 | | Diseases at [facility] | MD [address] | knee region (HCC) | | | | [address] | (Primary Dx) | | | | [address] | [place] [address] | | | | | Mailcode: [id number] | [phone] | | | | | [facility] | | | | | | [place], [place] | | | | | | [address] | | | | | | [phone] | | | +--------+ + + + [...]
--- OUTSIDE RECORDS SUMMARY | ~2019-08-24 | XMS | Encounter Summary ---
Demographics + + + | Address | [address] | | | [place] [address] | + + + | Home Phone [...] [place] | | | | | [address] | | + + + + + Care Team Providers + +------+ + | Care Research Assoc Name | Role | Phone | + [...] | | | synovectomy | Street | [facility] | | | | | | [address] | Rd [place], | | | | | | [place], | [place] | | | | | | [place] [address] | [address] | | | | | | Phone: | | | | | | | [phone] | | | | | | | Fax: | | | | | | | [phone] | | +--------+--------+ + + + + [...] [address] | | | | | | [place], [place] | | | | | | [address] | | | | | | [phone] | | | +--------+---------+ + + + [...] joint ap pointment with Dr. Peck from [place] was scheduled. Fortunately the knee stopped hurting [...] seconds capillary refill. Palpable dorsalis pedis and banquet houseperson ior tibial pulses. X-RAYS: Reviewed x-rays with [...] today for additional details. DARRICK BUITRAGO MD [facility] [address] [place] [address] Mailcode: [id number] [place] [address] documented in this en counter Plan of Treatment Not on filedocumented as of this encounter Visit Diagnoses + + | Diagnosis | + + | Osteomyelitis of knee region (HCC) - Primary Unspecified osteomyelitis, lower leg | + + documented in this encounter
--- OUTSIDE RECORDS SUMMARY | ~2019-08-24 | XMS | Encounter Summary ---
Demographics + + + | Address | [address] | | | [place] [address] | + + + | Home Phone [...] [place] | | | | | [address] | | + + + + + Care Team Providers + +------+ + | Care Fiberglass Grinder Name | Role | Phone | [...] + + | 09/02/ | Hospital | [facility] [address] | Alton Hernandez MD | | | 2012 - | Encounter | [address] | | | | | | Laz[place] Sorto | | | | 09/05/ | | [place] [address] | | | | 2012 | | [phone] | | | +--------+ + + + [...] Angel MD - 09/10/2012 8:12 AM PST [facility]AEDICS & [facility]IL[facility]ATION INPATIENT HOSPITAL DISCHARGE SUMMARY & INTERDISCIPLINARY INSTRUCTIONS Patient: Sandy Marc CSN: [id number] Admission Date: 09/02/2012 Discharge Date: 09/05/2012 Attending Physician: Alton Hernandez MD PCP: SAEED Presley Service: [facility] Orthopaedics & Rehabilitation Diagnoses Principal [...] for > 5 years. , Historical Med [facility] Orthopaedic Service Pain Policy At [...] our pleasure. David Peter MD Pager # [phone] documented in this enc ounter Discharge Instructions Instructions Sally Gupta RN - 09/04/2012Formatting of this note might be different f rom the original. ADDITIONAL INFORMATION: [facility] will provide IV antibiotics and education. They can be r eached at: [phone]. You will need to go to [facility] ([phone] - Unit C) for PICC line dressin [...] Arthritis: After Your Visit", log into your FaceBuzz account at [email or web address]. You can enter C265 in the [employer]" search box. Not on [employer]? Review the MyChart section of your After Visit Summary for directions on ho w to sign up. [phone] [employer]. Care instructions adapted under license by [facility] [employer] [facility] [place]. This care instruction is for use with your licensed healthcar e professional. If you have questions about a medical condition or this instruction, always ask your healthcare professional. [employer] disclaims any warranty or liabili ty for your use of this information. Content Version: 9.5.44766; Last Revised: July 18, 2011 Patient Education [...] provider under separate cover. Anticipated OPAT Setting: [facility] [phone] f: [phone] ID/OPAT Clinic follow-up: OPAT clinic visit in 1-2 weeks after discharge in conjunction wit h [facility] Orthopedic Service. We will call to schedule this appointment after patient is disch arged. Interdisciplinary Communication: Please notify OPAT clinic 24-48 hours prior to discharge b y calling [phone] (We need anticipated discharge date & where patient is going; i.e. name, ph one, and fax for home infusion vendor, retirement facility, or daily outpatient infusio center providing outpatient antibiotic therapy services.) [facility] Department of Infectious Disease Outpatient IV Antibiotic Therapy Clinic (OPAT) Pager ID: [phone] [facility]. Mail Code L457 [place] [address] OPAT teaching note: Education and training for patient self management with a PICC line and extended use IV antibiotics I received an OPAT Clinic Consult from the Inpatient Infectious Diseases Service. I have re viewed the records and introduced myself to Sandy Marc today. I explained that I am from the OPAT (Outpatient Parenteral Antibiotic Treatment) team, an out-patient branch of [facility] Infectious Diseases team that has been [...] symptoms immediately, and if unable to contact [facility] or the infus ion service provider, then to present to the nearest ED. I verified that the patient has a primary care provider, and that they will follow-up with them following this hospitalization in regards to other medical issues such as chronic pain, diabetes, or high blood pressure for which we do not provide any care. I provided the patient with the [facility] welcome letter that reiterates the above teaching. I spent 45 minutes in education and training in patient self management for IV antibiotic a nd PICC line use with greater than 50% spent on counseling and/or coordination of care. [facility] DEPARTMENT: IDC INFECT DIS CONSULT - [id number] Place of Service: Inpatient Date of Service: 09/04/2012 CSN: [id number] Suggested Modifier: OPATC David Angel MD - [...] made with LENCHO Peter MD Pager # [phone] David Angel MD - 09/03/2012 7:53 AM [...] 6 weeks David Peter MD Pager # [phone] Malathi Mccauley MD - 09/03/2012 1:27 AM [...] POSTOPERATIVE PLAN: See brief op note MALATHI BRYATN MD [facility] [place] Department of Orthopaedics & Rehabilitation [address] [place] [address] Mail Code: OP31 [facility] [address] documented in this e ncounter Plan of [...] + + + | IP CONSULT TO [facility] | Routin | 09/03/2012 | | [...] | + + + + + | [facility] | [address] | [place] [address] | | | SERVICES, ELLIE | JOY [...] [facility] | [address] | [place] [address] | | | SERVICES, CORE | PARK [...] | + + + + + | [facility] | [address] | [place] [address] | | | SERVICES, [facility] | [address] | | | + + + + + OPERATION RECORD (09/03/2012 2:02 PM PST) + + | Transcriptions | + + | David Peter MD - 09/03/2012 12:20 PM PST Date: 09/02/2012ttending | | Surgeon: Alton Hernandez M.D.Case Coordinator(s): David | | TAQUERIA Peterreoperative Diagnosis(es):1. Left [...] by | | Dr. Jerald Don in [place] on December 10, 2011. At that time, [...] the reamers. We then used our canal wafer production worker | | to thoroughly wash out [...] Thiago, M.Engr.General Orthopaedics, Trauma JUAN C / [id number] / [id number] / [id number] /D: | | 09/02/2012T: 09/03/2012 | | | | | + + X-RAY PORTABLE CHEST 1 VIEW (09/03/2012 9:51 AM PST) + + + + + + | Component | Value | Ref Range | Performed | Pathologist | | | | | At | Signature | + + + + + + | X-RAY | STUDY: FL CHEST 1 VIEW | | | | [...] (Unit/Room #): | | | 9k Diagnosis: [id number] Osteomyelitis of knee region 858699 AVN | | | (avascular necrosis of bone) 350324 Pathologic fracture of tibia or | | | fibula 248223 Septic arthritis of knee, left Indications: (Select [...] Lot # (or | | | Sticker): [id number] INSERTION SITE: - Basilic Left Local | [...] 09/03/2012Start Time: 0900Patient Location (Unit/Room #): 9kDiagnosis: [id number] | | Osteomyelitis of knee [id number] AVN (avascular necrosis of bone)233935 Pathologic | | fracture of tibia or [id number] Septic arthritis of knee, leftIndications: (Select all [...] CATHETERProduct | | Name: RicardoConstruction: Single4 Fr60cm Jcmf2zz TrimmedLot # (or Sticker): | | [id number] SITE: - BasilicLeftLocal anesthetic used: lidocaineSedation used: [...] |8cm Trimmed | |Lot # (or Sticker): [id number] | | | |INSERTION SITE: - Basilic [...] | + + + + + | [facility] | [address] | [place] [address] | | | SERVICES, CORE | JOY [...] | + + + + + | [facility] | [address] | [place] [address] | | | SERVICES, CORE | JOY [...] | | | Final SMEAR:No | | [place] | | | | fungal elements seen [...] + | [facility] - | [address] | [place] [address] | | | [place] | | | [...] | | Final SMEAR:AFB not | | [facility] | | | | detected source: [...] + | [facility] - | [address] | [place] [address] | | | [place] | | | [...] + | [facility] - | [address] | [place] [address] | | | [place] | | | [...] | | Final SMEAR:AFB not | | [place] | | | | detected source: left [...] + | [facility] - | [address] | [place] [address] | | | [place] | | | [...] | | | Final SMEAR:No | | [place] | | | | fungal elements seen [...] + | [facility] - | [address] | [place] [address] | | | [place] | | | [...] | + + + + + | [facility] - | [address] | [place] [address] | | | [place] | | | | + + + [...] | | RESULT | Tissue | | [facility] - | | | | Final SMEAR:No | | [place] | | | | fungal elements seen [...] | + + + + + | [facility] - | [address] | [place] [address] | | | [place] | | | [...] + | [facility] - | [address] | [place] [address] | | | [place] | | | | + + + [...] + | [facility] - | [address] | [place] [address] | | | [facility] [...] | | | Final SMEAR:No | | [place] | | | | fungal elements seen [...] + | [facility] - | [address] | [place] [address] | | | [place] | | | [...] + | [facility] - | [address] | [place] [address] | | | [facility] | | | | + + [...] | | Final GRAM STAIN:No | | [place] | | | | squamous epithelial | [...] | + + + + + | [facility] - | [address] | [place] [address] | | | [place] | | | | + + + [...] | | | Final SMEAR:No | | [place] | | | | fungal elements seen [...] + | [facility] - | [address] | [place] [address] | | | [place] | | | | + + + [...] | | Final SMEAR:AFB not | | [place] | | | | detected source: left [...] | + + + + + | [facility] - | [address] | [place] [address] | | | [place] | | | [...] + + | Performing | Address | City/State/[facility] | Phone Number | | Organization | | | | + + + + + | [facility] - | [address] | [place] [address] | | | [place] | | | | + + + [...] | | | Final SMEAR:No | | [place] | | | | fungal elements seen [...] + | [facility] - | [address] | [place] [address] | | | [place] | | | | + + + [...] | | Final SMEAR:AFB not | | [place] | | | | detected source: left [...] | + + + + + | [facility] - | [address] | [place] [address] | | | [place] | | | [...] | + + + + + | [facility] - | [address] | [place] [address] | | | [place] | | | [...] + | [facility] - | [address] | [place] [address] | | | [facility] | | | | + + [...] | | Final SMEAR:AFB not | | [place] | | | | detected source: left [...] + | [facility] - | [address] | [place] [address] | | | [place] | | | [...] + | [facility] - | [address] | [place] [address] | | | [facility] | | | | + + [...] | | | Final SMEAR:No | | [facility] | | | | fungal elements [...] + | [facility] - | [address] | [place] [address] | | | [place] | | | | + + + [...] | | Final SMEAR:AFB not | | [place] | | | | detected source: 3) [...] + | [facility] - | [address] | [place] [address] | | | [place] | | | | + + + [...] + | [facility] - | [address] | [place] [address] | | | [facility] | | | | + + [...] + | [facility] - | [address] | [place] [address] | | | [place] | | | | + + + [...] + | [facility] - | [address] | [place] [address] | | | [place] | | | | + + + [...] | + + + + + | [facility] - | [address] | [place] [address] | | | [place] | | | | + + + [...] | | RESULT | Tissue | | [facility] - | | | | Final SMEAR:No | | [place] | | | | fungal elements seen [...] | + + + + + | [facility] - | [address] | [place] [address] | | | [place] | | | [...] | | Final SMEAR:AFB not | | [facility] | | | | detected source: [...] + | [facility] - | [address] | [place] [address] | | | [place] | | | [...] + | [facility] - | [address] | [place] [address] | | | [place] | | | | + + + [...] | | | Final CULTURE | | [place] | | | | RESULT:No growth | [...] + | [facility] - | [address] | [place] [address] | | | [place] | | | | + + + [...] | | | | | | Thiago Romeor/Pathologist | | | | | | Clinical [...] Steiner | | | | | | ThiaogPathologistBrandoi | | | | | | julisa [...] | + + + + + | [facility] | [address] | [place] [address] | | | PATHOLOGY | [address] [...]
--- OUTSIDE RECORDS SUMMARY | ~2019-08-24 | XMS | Encounter Summary ---
Demographics + + + | Address | [address] | | | [place] [address] | + + + | Home Phone [...] [place] | | | | | [address] | | + + + + + Care Team Providers + +------+ + | Care Computer Bookkeeper Name | Role | Phone | + [...] Pavilion | | | | | | [place], [place] | | | | | | [address] | | | | | | [phone] | | | +--------+ + + + [...]
--- OUTSIDE RECORDS SUMMARY | ~2019-08-24 | XMS | Encounter Summary ---
Demographics + + + | Address | [address] | | | [place] [address] | + + + | Home Phone [...] [place] | | | | | [address] | | + + + + + Care Team Providers + +------+ + | Care Woodyard Crane Operator Name | Role | Phone [...] | | | necrosis of | [place] | [place] | | | | | bone) ([facility]) | Rd | [address] | | | | | Septic | [place], [place] | [place], | | | | | 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[address] | [place] [address] | | | | | knee, left | | Phone: | | | | | ([facility]) | | [phone] | | | | | Procedures | | Fax: | | | | | CONSULT TO | | [phone] | | | | | INFECTIOUS | [...] use of antibiotics | | | | [place], [place] | | | | | | [address] | | | | | | [phone] | | | +--------+---------+ + + + [...] DISEASES CLINIC FOLLOW UP Primary Care Physician: [facility] [address] [place] [address], [address] [place] [address] Ms. Marc presents to Infectious Diseases Clinic [...] doing rodeo on her horse going around [employer], and she was leaning out away from Guide. Her legs spontaneously broke with pathological fracture. [...] amedullary canal. We then used our canal precision lens grinder apprentice to thoroughly washout the intramedullary canal as [...] She was seen in the ER in [place] and had a CT Thor ax that [...] an d follow-up planning. Brigid Hardy PA-C [facility] Department of Infectious Diseases Outpatient IV Antibiotic Therapy Clinic (OPAT) [phone] Pager ID: [phone] [facility] Mail Code L457 [place] [address] documented in this encounter Plan of Treatment [...]
--- OUTSIDE RECORDS SUMMARY | ~2019-08-24 | XMS | Encounter Summary ---
Demographics + + + | Address | [address] | | | [place] [address] | + + + | Home Phone [...] + | Grisel Marc | ECON | [address] | | | | | [place] | | | | | [address] | | + + + + + Care Team Providers + +------+ + | Care Boiler Operator Helper Name | Role | Phone [...] [place] | | | | | [address] | [address] | | | | | | [phone] | | | | | | | [...] | | Results for this | | [address] | e | 10:19 AM | | procedure are in the | | | | PST | | results section. | + +--------+ + + + documented in this encounter Results ORT KNEE 3V 37293 (07/14/2015 10:19 AM PST) + + | Specimen | + + | | + + + + + | Narrative | Performed At | + + + | Name: | [facility] | | [place] | DEPARTMENT OF | | Phys: Mars Nicolas MD | RADIOLOGY | | | | | : 1990 Age: 24 Sex: F | | | Acct: [id number] Loc: ORTH | | | | | | Exam Date: 07/14/2015 Status: PRE CLI | | | Radiology No: [id number] | | | Unit No: | | | EXAM# TYPE/EXAM | | | RESULT | | | [id number] ORT/ORT KNEE 3V 73 | | | EXAM: ORT | | | KNEE 3V 63680 CLINICAL HISTORY: | | | Knee pain. [...] | Transcribed Date/Time: 07/14/2015 | | | (2929) Dietitian Teacher: FLUENCY PAGE 1 | | | Signed Report | | | | | + + + + + | Procedure Note | + + | Interface, Radiology Results - 12/21/2015 11:29 AM PDT | | Name: SANDY MARC | | Phys: Mars Nicolas MD : | | 1990 Age: 24 Sex: F Acct: [id number] | | Loc: ORTH Exam Date: 07/14/2015 | | Status: PRE CLI Radiology No: [id number] | | Unit No: EXAM# TYPE/EXAM | | RESULT [id number] ORT/ORT KNEE 3V | | 73 EXAM: ORT KNEE 3V | | 06078 CLINICAL HISTORY: Knee pain. Subacute injury. COMPARISON: [...] | | | Transcribed Date/Time: 07/14/2015 (1022) Dietitian Teacher: FLUENCY PAGE 1 | | Signed Report [...] | | | | Transcribed Date/Time: 07/14/2015 (0132) | | Dietitian Teacher: YORDY | | | | | | [...]
--- OUTSIDE RECORDS SUMMARY | ~2019-08-24 | XMS | Encounter Summary ---
Demographics + + + | Address | [address] | | | [place] [address] | + + + | Home Phone [...] [place] | | | | | [address] | | + + + + + Care Team Providers + +------+ + | Care Permastone Installer Name | Role | Phone | [...] | | | | | | [place], [place] | | | | | | [address] | | | | | | [phone] | | | +--------+ + + + [...]
--- OUTSIDE RECORDS SUMMARY | ~2019-08-24 | XMS | Encounter Summary ---
Demographics + + + | Address | [address] | | | [place] [address] | + + + | Home Phone [...] + | Grisel Marc | ECON | [address] | | | | | [place] | | | | | [address] | | + + + + + Care Team Providers + +------+ + | Care Fur Floor Worker Name | Role | Phone | + +------+ + | Hina Peterson | PCP | | + +------+ + Encounter Details +--------+ + + + + | Date | Type | Department | Care Team | Description | +--------+ + + + + | 06/04/ | Hospital | [facility] | | | | 2018 | Encounter | Sports Medicine & | | | | | | Orthopaedic Surgery | | | | | | [address] | | | | | | [place] | | | | | | [address] | | | | | | [phone] | | | +--------+ + + + [...] + + + | [address] [place] [address] | [facility] | | [place] [address] | [facility] | | [phone] Name: MINNIESHARIFYOU Phys: | RADIOLOGY | | IZABELLAJACI : 1990 Sex: F CSN: | | | [id number] MR# [id number] Exam Date: 06/04/2019 | | | EXAM: X-RAY KNEE 3 VIEWS LEFT 00791; X-RAY KNEE 2 VIEWS RIGHT | | | 94325 CLINICAL HISTORY: Left knee pain. COMPARISON: None [...] Transcribed Date/Time: 06/04/2019 | | | 23:16 Director Multiple Sclerosis Center: FLUENCY | | + + + + + | Procedure Note | + + | Interface, Radiology Results - 06/04/2019 11:21 PM PDT [address] | | [address] [place] [address] | | Name: SANDY MARC Phys: JACI [address]ARE[address] : 1990 Sex: F | | CSN: [id number] MR# [id number] Exam Date: 06/04/2019 EXAM:X-RAY KNEE 3 VIEWS | | LEFT 20947; X-RAY KNEE 2 VIEWS RIGHT 57427 CLINICAL HISTORY:Left knee pain. | | COMPARISON:None [...] | | |Transcribed Date/Time: 06/04/2019 23:16 | |Director Multiple Sclerosis Center: FLUENCY | | | | | | [...] Street | [facility] | | [place] [address] | DEPARTMENT OF | | [phone] Name: SANDY MARC Phys: | RADIOLOGY | | JACI PAREKH : 1990 Sex: F CSN: | | | [id number] MR# [id number] Exam Date: 06/04/2019 | | | EXAM: X-RAY KNEE 3 VIEWS LEFT 95254; X-RAY KNEE 2 VIEWS RIGHT | | | 85461 CLINICAL HISTORY: Left knee pain. COMPARISON: None [...] Transcribed Date/Time: 06/04/2019 | | | 23:16 Director [facility] Sclerosis Center: FLUENCY | | + + + + + | Procedure Note | + + | Interface, Radiology Results - 06/04/2019 11:21 PM PDT [address] | | [address] [place] [address] | | Name: SANDY MARC Phys: JACI PAREKH : 1990 Sex: F | | CSN: [id number] MR# [id number] Exam Date: 06/04/2019 EXAM:X-RAY KNEE 3 VIEWS | | LEFT 84546; X-RAY KNEE 2 VIEWS RIGHT 91949 CLINICAL HISTORY:Left knee pain. | | COMPARISON:None [...] | | |Transcribed Date/Time: 06/04/2019 23:16 | |Director Multiple Sclerosis Center: FLUENCY | | | | | | [...]
--- OUTSIDE RECORDS SUMMARY | ~2019-08-24 | XMS | Encounter Summary ---
Demographics + + + | Address | [address] | | | [place] [address] | + + + | Home Phone [...] [place] | | | | | [address] | | + + + + + Care Team Providers + +------+ + | Care Battery Test Engineer Name | Role | Phone | [...] | s of knee | Health | [facility] | | | | | region ([facility]) | Associates | [address], | | | | | AVN | [address] | [place] | | | | | (avascular | [address] | [address] | | | | | necrosis of | [place], | | | | | | bone) ([facility]) | [place] [address] | | | | | | Pathologic | Phone: | | | | | | fracture of | [phone] | | | | | | tibia or | Fax: | | | | | | fibula | [phone] | | | | | | Septic | | | | | | | 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| | | | | | knee, left | | | | | | | ([facility]) | | | | | | | Procedures | | | | | | | REQUEST TO | | | | | | | SURGERY | | | | | | | ORNAMENTAL BRONZE WORKER | | | | | | | TX PARTIAL | | | | | | | REMOVAL OF | | | | | | | TIBIA TX | | | | | | | INSERTION | | | | | | | DRUG IMPLANT | | | | | | | DEVICE TX | | | | | | | KNEE | | | | | | | SCOPE,SHAVE | | | | | | | ARTICULAR | | | | | | | CART TX | | | | | | | [...] | left (HCC) | | | | [place], [place] | | | | | | [address] | | | | | | [phone] | | | +--------+---------+ + + + [...] Intraoperative Consult Diagnosis confirmed by: [facility]ik Duong ([facility] and Khushi Romero M.D./Pathologist ASSESSMENT: [...] separate note for details). DARRICK BUITRAGO MD [facility] [address] [place] [address] Mailcode: Pv430 [place] [id number] Basia Vivar MA - 02/2013 3:15 PM [...]
--- OUTSIDE RECORDS SUMMARY | ~2019-08-24 | XMS | Encounter Summary ---
Demographics + + + | Address | [address] | | | [place] [address] | + + + | Home Phone [...] + | Grisel Marc | ECON | [address] | | | | | [place] | | | | | [address] | | + + + + + Care Team Providers + +------+ + | Care Safety Professional Name | Role | Phone | + +------+ + | Hina Peterson | PCP | | + +------+ + Encounter Details +--------+ + + + + | Date | Type | Department | Care Team | Description | +--------+ + + + + | 12/05/ | Hospital | [facility] | | | | 2015 | Encounter | Sports Medicine & | | | | | | Orthopaedic Surgery | | | | | | [address] | | | | | | [place] | | | | | | [address] | | | | | | [phone] | | | +--------+ + + + [...]
--- OUTSIDE RECORDS SUMMARY | ~2019-08-24 | XMS | Encounter Summary ---
Demographics + + + | Address | [address] | | | [place] [address] | + + + | Home Phone [...] [place] | | | | | [address] | | + + + + + Care Team Providers + +------+ + | Care Nozzle Tender Name | Role | Phone | [...] AND | | 2012 | | [facility] | | DEBRIDEMENT OF LEFT | | | | Rd [address] | | PROXIMAL TIBIAL WITH | | | | Hospital Admitting | | PLACEMENT OF CASO4 | | | | Desk Located on the | | ANTIBIOTICS BEADS; | | | | 9th floor | | microbiology x 11 | | | | [place], [place] | | | | | | [address] | | | +--------+---------+ + + + [...] Angel MD - 09/10/2012 8:12 AM PST [facility] DEPARTMENT OF ORTHOPAEDICS & REHABILITATION INPATIENT HOSPITAL DISCHARGE SUMMARY & INTERDISCIPLINARY INSTRUCTIONS Patient: Sandy Marc CSN: [id number] Admission Date: 09/02/2012 Discharge Date: 09/05/2012 Attending Physician: Alton Hernandez MD PCP: SAEED Presley Service: [facility] Orthopaedics & Rehabilitation Diagnoses Principal Final [...] for > 5 years. , Historical Med [facility] Orthopaedic Service Pain Policy At the [...] our pleasure. David Peter MD Pager # [phone] documented in this enc ounter Discharge Instructions Instructions Sally Gupta RN - 09/04/2012Formatting of this note might be different f rom the original. ADDITIONAL INFORMATION: [facility] will provide IV antibiotics and education. They can be r eached at: [phone]. [facility] ([phone] - Unit C) for PICC line dressin [...] Arthritis: After Your Visit", log into your [employer] account at [email or web address]. You can enter C265 in the [employer] Library" search box. Not on [employer]? Review the MyChart section of your After Visit Summary for directions on aysha norris to sign up. [phone] [employer]. Care instructions adapted under license by [facility]. This care instruction is for use with your licensed healthcar e professional. If you have questions about a medical condition or this instruction, always ask your healthcare professional. [employer] disclaims any warranty or liabili ty for your use of this information. Content Version: 9.5.94340; Last Revised: July 18, 2011 Patient Education [...] provider under separate cover. Anticipated OPAT Setting: [facility] [phone] f: [phone] ID/OPAT Clinic follow-up: OPAT clinic visit in 1-2 weeks after discharge in conjunction wit h [facility] Orthopedic Service. We will call to schedule this appointment after patient is disch arged. Interdisciplinary Communication: Please notify OPAT clinic 24-48 hours prior to discharge b y calling [phone] (We need anticipated discharge date & where patient is going; i.e. name, ph one, and fax for home infusion vendor, group home facility, or daily outpatient infusio n center providing outpatient antibiotic therapy services.) [facility] Department of Infectious Disease Outpatient IV Antibiotic Therapy Clinic (OPAT) Pager ID: [phone] [facility] Ravi. Mail Code B497 [place] [address] OPAT teaching note: Education and training for patient self management with a PICC line and extended use IV antibiotics I received an OPAT Clinic Consult from the Inpatient Infectious Diseases Service. I have re viewed the records and introduced myself to Sandy aMrc today. I explained that I am from [...] symptoms immediately, and if unable to contact [facility] or the infus ion service provider, then to present to the nearest ED. I verified that the patient has a primary care provider, and that they will follow-up with them following this hospitalization in regards to other medical issues such as chronic pain, diabetes, or high blood pressure for which we do not provide any care. I provided the patient with the [facility] welcome letter that reiterates the above teaching. I spent 45 minutes in education and training in patient self management for IV antibiotic a nd PICC line use with greater than 50% spent on counseling and/or coordination of care. [facility] DEPARTMENT: IDC INFECT DIS CONSULT - [id number] Place of Service: Inpatient Date of Service: 09/04/2012 CSN: [id number] Suggested Modifier: OPATC David Angel MD - [...] made with LENCHO Peter MD Pager # [phone] David Angel MD - 09/03/2012 7:53 AM [...] 6 weeks David Peter MD Pager # [phone] Malathi Mccauley MD - 09/03/2012 1:27 AM [...] See brief op note MALATHI BRYANT MD [facility] Department of Orthopaedics & Rehabilitation [address] [place] [address] Mail Code: OP31 [facility] [address] documented in this e ncounter Plan of [...] + + + | IP CONSULT TO [facility] | Routin | 09/03/2012 | | [...] | + + + + + | [facility] | [address] | [place] [address] | | | ELLIE LONG | JOY [...] [facility] | [address] | [place] [address] | | | SERVICES, CORE | PARK [...] | + + + + + | [facility] | [address] | [place] [address] | | | SERVICES, CORE | [address] | | | + + + + + OPERATION RECORD (09/03/2012 2:02 PM PST) + + | Transcriptions | + + | David Peter MD - 09/03/2012 12:20 PM PST Date: 09/02/2012ttending | | Surgeon: Alton Hernandez M.D.Medical/Surgery Registered Nurse(s): David | | TAQUERIA Peterreoperative Diagnosis(es):1. Left [...] by | | Dr. Jerald Don in [place] on December 10, 2011. At that time, [...] the reamers. We then used our canal second butler | | to thoroughly wash out the [...] | | Thiago, M.Engr.General Orthopaedics, Trauma / [id number] / [id number] / [id number] /[id number]: | | 09/02/2012T: 09/03/2012 | | | | | + + X-RAY PORTABLE CHEST 1 VIEW (09/03/2012 9:51 AM PST) + + + + + + | Component | Value | Ref Range | Performed | Pathologist | | | | | At | Signature | + + + + + + | X-RAY | STUDY: GA CHEST 1 VIEW | | | | [...] + +---------+ + + IP CONSULT TO [facility] TEAM (09/03/2012 9:16 AM PST) + + + | Narrative | Performed At | + + + | Adriana Torrez 09/03/2012 9:16 AM PICC INSERTION | | | DOCUMENTATION NOTE Today | | | | | | s Date: 09/03/2012 Start Time: 0900 Patient Location (Unit/Room #): | | | 9k Diagnosis: 359387 Osteomyelitis of knee region 669763 AVN | | | (avascular necrosis of bone) 784330 Pathologic fracture of tibia or | | | fibula 639013 Septic arthritis of knee, left Indications: (Select [...] Lot # (or | | | Sticker): [id number] INSERTION SITE: - Basilic Left Local | [...] 09/03/2012Start Time: 0900Patient Location (Unit/Room #): 9kDiagnosis: 481965 | | Osteomyelitis of knee [id number] AVN (avascular necrosis of bone)428381 Pathologic | | fracture of tibia or [id number] Septic arthritis of knee, leftIndications: (Select all [...] CATHETERProduct | | Name: Benistruction: Single4 Fr60cm Bclf9gn TrimmedLot # (or Sticker): | | [id number] SITE: - BasilicLeftLocal anesthetic used: lidocaineSedation used: [...] |8cm Trimmed | |Lot # (or Sticker): [id number] | | | |INSERTION SITE: - Basilic [...] | + + + + + | [facility] | [address] | [place] [address] | | | SERVICES, CORE | PARK [...] | + + + + + | [facility] | [address] | [place] [address] | | | SERVICES, CORE | JOY [...] | | + +---------+ + + | [facility] DEPARTMENT OF | | | | [...] | | | Final SMEAR:No | | [place] | | | | fungal elements seen [...] + | [facility] - | [address] | [place] [address] | | | [facility] | | | | + [...] + | [facility] - | [address] | [place] [address] | | | [facility] | | | | + + [...] + | [facility] - | [address] | [place] [address] | | | [place] | | | | + + + [...] | | Final SMEAR:AFB not | | [place] | | | | detected source: left [...] + + + + + | [facility] - | [address] | [place] [address] | | | [place] | | | | + + + [...] | RESULT | Tissue | | [facility] - | | | | Final SMEAR:No | | [place] | | | | fungal elements seen [...] + | [facility] - | [address] | [place] [address] | | | [place] | | | [...] | + + + + + | [facility] - | [address] | [place] [address] | | | [place] | | | | + + + [...] + | [facility] - | [address] | [place] [address] | | | [place] | | | | + + + [...] | | Final SMEAR:AFB not | | [place] | | | | detected source: left [...] + + + + + | [facility] - | [address] | [place] [address] | | | [place] | | | [...] | + + + + + | [facility] - | [address] | [place] [address] | | | [place] | | | | + + + [...] | | | Final SMEAR:No | | [facility] | | | | fungal [...] + | [facility] - | [address] | [place] [address] | | | [place] | | | [...] + | [facility] - | [address] | [place] [address] | | | [place] | | | [...] | + + + + + | [facility] | [address] | [place] [address] | | | [place] | | | | + + + [...] | | RESULT | Tissue | | [facility] | | | | Final SMEAR:No | | [place] | | | | fungal elements seen [...] + | [facility] - | [address] | [place] [address] | | | [place] | | | | + + + [...] | | Final SMEAR:AFB not | | [place] | | | | detected source: left [...] | + + + + + | [facility] - | [address] | [place] [address] | | | [place] | | | [...] + | [facility] - | [address] | [place] [address] | | | [place] | | | [...] | + + + + + | [facility] - | [address] | [place] [address] | | | [place] | | | | + + + [...] | | Final SMEAR:AFB not | | [facility] | | | | detected source: [...] + + + + + | [facility] - | [address] | [place] [address] | | | [place] | | | | + + + [...] | | | RESULT | | | [facility] | | | | Final GRAM STAIN:No | | [place] | | | | squamous epithelial | [...] | + + + + + | [facility] - | [address] | [place], [place] [address] | | | [place] | | | [...] + | [facility] - | [address] | [place] [address] | | | [place] | | | [...] | | Final SMEAR:AFB not | | [place] | | | | detected source: left [...] | + + + + + | [employer] [facility] - | [address] | [place] [address] | | | [place] | | | | + + + [...] + | [facility] - | [address] | [place] [address] | | | [place] | | | | + + + [...] + | [facility] - | [address] | [place] [address] | | | [place] | | | [...] + | [facility] - | [address] | [place] [address] | | | [place] | | | | + + + [...] | | Final GRAM STAIN:No | | [place] | | | | squamous epithelial | [...] + | [facility] - | [address] | [place] [address] | | | [place] | | | | + + + [...] + | [facility] - | [address] | [place] [address] | | | [facility] | | | | + + [...] + | [facility] - | [address] | [place] [address] | | | [place] | | | | + + + [...] + + + + + | [facility] - | [address] | [place] [address] | | | [place] | | | | + + + [...] + | [facility] - | [address] | [place] [address] | | | [place] | | | | + + + [...] | | Final SMEAR:AFB not | | [place] | | | | detected source: left [...] + + + + + | [facility] - | [address] | [place] [address] | | | [place] | | | [...] + | [facility] - | [address] | [place] [address] | | | [facility] | | | | + [...] | | | Final CULTURE | | [place] | | | | RESULT:No growth | [...] + | [facility] - | [address] | [place] [address] | | | [place] | | | | + + + [...] | + + + + + | [facility] | [address] | [place] [address] | | | PATHOLOGY | [address] [...]
--- OUTSIDE RECORDS SUMMARY | ~2019-08-24 | XMS | Encounter Summary ---
Demographics + + + | Address | [address] | | | [place] [address] | + + + | Home Phone [...] [place] | | | | | [address] | | + + + + + Care Team Providers + +------+ + | Care Shift Manager Name | Role | Phone | [...] | | | | | | [place], | | | | | | [place] [address] | | | | | | [phone] | | | +--------+ + + + [...]
--- OUTSIDE RECORDS SUMMARY | ~2019-08-24 | XMS | Encounter Summary ---
Demographics + + + | Address | [address] | | | [place] [address] | + + + | Home Phone [...] [place] | | | | | [address] | | + + + + + Care Team Providers + +------+ + | Care Alarm Installer Name | Role | Phone | [...] | | | | | | [place], | | | | | | [place] [address] | | | | | | [phone] | | | +--------+ + + + [...]
--- OUTSIDE RECORDS SUMMARY | ~2019-08-24 | XMS | Encounter Summary ---
Demographics + + + | Address | [address] | | | [place] [address] | + + + | Home Phone [...] [place] | | | | | [address] | | + + + + + Care Team Providers + +------+ + | Care Sales Representative Livestock Name | Role | Phone | + [...] [place] | | | | | Floor [address] | | | | | | [address] | | | | | | Mailcode: L457 | | | | | | [facility] | | | | | | [place], [place] | | | | | | [address] | | | | | | [phone] | | | +--------+ + + + [...]
--- OUTSIDE RECORDS SUMMARY | ~2019-08-24 | XMS | Encounter Summary ---
Demographics + + + | Address | [address] | | | [place] [address] | + + + | Home Phone [...] [place] | | | | | [address] | | + + + + + Care Team Providers + +------+ + | Care Side Puller Name | Role | Phone | + [...] | | | | | | [place], | | | | | | [place] [address] | | | | | | [phone] | | | +--------+ + + + [...]
--- OUTSIDE RECORDS SUMMARY | ~2019-08-24 | XMS | Encounter Summary ---
Demographics + + + | Address | [address] | | | [place] [address] | + + + | Home Phone [...] [place] | | | | | [address] | | + + + + + Care Team Providers + +------+ + | Care Seater Assembler Name | Role | Phone | + +------+ + | Adilia BobP | PCP | | + +------+ + Reason for Visit + + + | Reason | Comments | + + + | Pre-operative | KNEE SOFT TISSUE PROCEDURES on 09/02/2012 by Alton eHrnandez MD at | | evaluation | [facility] | + + + Encounter Details +--------+---------+ + + + | Date | Type | Department | Care Team | Description | +--------+---------+ + + + | 08/24/ | Office | Preoperative | Maira Zhao | Other specified | | 2012 | Visit | Medicine Clinic at | R, BRIQUETTER OPERATOR [address] | pre-operative | | | | MPV 4th Floor Day | [address] | examination (Primary | | | | Stay [address] | [place], [place] | Dx); Septic | | | | [address] | [address] | arthritis of knee, | | | | Mailcode: UHN65 | [phone] | left ([facility]); AVN | | | | [address] | | (avascular necrosis | | | | [address] [place], [place] | | of bone) ([facility]); | | | | [address] | | Osteomyelitis of | | | | [phone] | | knee region ([facility]); | | | | | | Asthma | +--------+---------+ + + + Anesthesia Record + + + + + | Procedure Name | Responsible | Anesthesia Start | Anesthesia Stop Time | | | Anesthesiologist | Time | | + + + + + | IRRIGATION AND | Shakila Burgos MD | 09/02/12 1407 | 09/02/12 4655 | | DEBRIDEMENT OF LEFT | | [...] or walk. Surgery Check in Locations Admitting [facility], ninth floor [facility] Surgery Check in Time: The Preoperative [...] it is after office hours, call the [facility] deburr operator at [phone] and ask them to page him or h er. Preparing For Your Surgery Video -- 7 minutes of instructions! If you have access to the Internet and would like to review our instructional video about g etting ready for your procedure day, please follow these directions: Access the [facility] website [email or web address] --> POPULAR RESOURCES --> Patient [...] and PMHX. Document will be scanned in Yext. Pulmonary: Within Defined Limits except as noted [...] further investigation and manageme nt. A. Acute [place] within 7 days: no B. Unstable angina/Recent [place] (7- 30 days): no C. Decompensated CHF: [...] no Rate of cardiac , non fatal [place], non fatal cardiac arrest (RCRI) 0 risk [...] to this patient's care. MAIRA ZHAO NP [facility] [address] [place] [address] [phone] signed by Maira Zhao NP at 08/24/2012 [...]
--- OUTSIDE RECORDS SUMMARY | ~2019-08-24 | XMS | Encounter Summary ---
Demographics + + + | Address | [address] | | | [place] [address] | + + + | Home Phone | | + + + | Preferred Language | Unknown | + + + | Marital Status | | + + + | Hinduism Affiliation | Unknown | + + + | Race | Unknown | + + + | Ethnic Group | Unknown | + + + Author + + + | Author | [facility] | | | and [place] | + + + | Organization | [facility] | | | and [...] Team Providers + +------+ + | Care Cylinder Press Operator Helper Name | Role | Phone [...] Provider Unknown | | | | | [place], [place] | [phone] | | | | | [address] | | | | | | [phone] | | | +--------+ + + + [...]
--- OUTSIDE RECORDS SUMMARY | ~2019-08-24 | XMS | Encounter Summary ---
Demographics + + + | Address | [address] | | | [place] [address] | + + + | Home Phone [...] Grisel Marc | ECON | [address] | | | | | [place] | | | | | [address] | | + + + + + Care Team Providers + +------+ + | Care Flag Signaler Name | Role | Phone | + [...] | | | | [place] | [address] | | | | | Wicho Ledezma The | [phone] | | | | | [place] | | | | | | [address] | | | | | | [phone] | | | +--------+ + + + [...]
--- OUTSIDE RECORDS SUMMARY | ~2019-08-24 | XMS | Encounter Summary ---
Demographics + + + | Address | [address] | | | [place] [address] | + + + | Home Phone [...] Author | [facility] | + + + | Organization | [facility] | + + + | Address | Unknown | + + + | Phone | Unavailable | + + + Support + + + + + | Name | Relationship | Address | Phone | + + + + + | Grisel Marc | ECON | [address] | | | | | [place] | | | | | [address] | | + + + + + Care Team Providers + +------+ + | Care Machine Load Clerk Name | Role | Phone | [...] | | | osteomyeliti | Street | [facility] | | | | | s, lower leg | [address] | [address] [place], | | | | | L knee | [place], | [place] | | | | | | [place] [address] | [address] | | | | | | Phone: | | | | | | | [phone] | | | | | | | Fax: | | | | | | | [phone] | | +--------+--------+ + + + + [...] | Osteomyelitis of | | | | [place], [place] | | knee region (HCC); | | | | [address] | | Septic 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| | | [phone] | | knee, left ([facility]) | +--------+---------+ + + + Social [...] horseback riding. However in the last w togiak and a half she has developed some [...] seconds capillary refill. Palpable dorsalis pedis and dietary aide teacher ior tibial pulses. X-RAYS: Reviewed x-rays with [...] extensiveness of her infection. DARRICK BUITRAGO MD [facility] [address] Mailcode: [id number] [place] [address] documented in this en counter [...]
--- OUTSIDE RECORDS SUMMARY | ~2019-08-24 | XMS | Encounter Summary ---
Demographics + + + | Address | [address] | | | [place] [address] | + + + | Home Phone [...] [place] | | | | | [address] | | + + + + + Care Team Providers + +------+ + | Care Ciaio Lumite Injector Name | Role | Phone | + [...]
--- OUTSIDE RECORDS SUMMARY | ~2019-08-24 | XMS | Encounter Summary ---
Demographics + + + | Address | [address] | | | [place] [address] | + + + | Home Phone [...] [place] | | | | | [address] | | + + + + + Care Team Providers + +------+ + | Care Home Health Rn Name | Role | Phone | [...] Visit | Medicine Clinic at | R, HOGSHEAD MAT ASSEMBLER [address] | pre-operative | | | | MPV 4th Floor Day | [address] | examination (Primary | | | | Stay [address] | [place], [place] | Dx); Septic | | | | [address] | [address] | arthritis of knee, | | | | Mailcode: UHN65 | [phone] | left ([facility]); AVN | | | | [address] | | (avascular necrosis | | | | [address] [place], [place] | | of bone) ([facility]); | | | | [address] | | Osteomyelitis of | | | | [phone] | | knee region ([facility]); | | | | | | Asthma | +--------+---------+ + + + Anesthesia Record + + + + + | Procedure Name | Responsible | Anesthesia Start | Anesthesia Stop Time | | | Anesthesiologist | Time | | + + + + + | IRRIGATION AND | Shakila Burgos MD | 09/02/12 1407 | 09/02/12 5595 | | DEBRIDEMENT OF LEFT | | [...] | 20; Right; Hand; Therapy | Jean-Paul Amlazan MD | Pilar Dawkins RN | | [...] or walk. Surgery Check in Locations Admitting [facility], ninth floor [facility] Surgery Check in Time: The [...] it is after office hours, call the [facility] media operator at [phone] and ask them to page him or h er. Preparing For Your Surgery Video -- 7 minutes of instructions! If you have access to the Internet and would like to review our instructional video about g etting ready for your procedure day, please follow these directions: Access the [facility] website [email or web address] --> POPULAR RESOURCES --> [...] and PMHX. Document will be scanned in [email or web address]. Pulmonary: Within Defined Limits except as noted [...] further investigation and manageme nt. A. Acute CT within 7 days: no B. Unstable angina/Recent CT (7- 30 days): no C. Decompensated CHF: [...] no Rate of cardiac , non fatal CT, non fatal cardiac arrest (RCRI) 0 risk [...] to this patient's care. MAIRA ZHAO NP [facility] PREOPER[facility]ICINE CLINIC [address] [place] [address] [phone] signed by Maira Zhao NP at 08/24/2012 [...]
--- OUTSIDE RECORDS SUMMARY | ~2019-08-24 | XMS | Clinical Summary ---
Demographics + + + | Address | [address] | | | [place] [address] | + + + | Home Phone | | + + + | Preferred Language | Unknown | + + + | Marital Status | Single | + + + | Rastafari Affiliation | Unknown | + + + | Race | Unknown | + + + | Ethnic Group | Unknown | + + + Author + + + | Author | [email or web address] (Historical as of | | | 03-27-19) | + + + | Organization | [facility] [email or web address] (Historical as of | | | 03-27-19) [...] Team Providers + +------+ + | Care Forestry Hunter Name | Role | Phone | + [...] + | Maternal Aunt | | | [place] | | | | (Age | | [...] +------+-------+ + | MEDICAID | POER | [id number] | | | [address] | | | N | | | | [place] | | | [place] | | | | [address] | | | PIZZA HUT ASSISTANT | | | | | + +--------+ [...] | [place] | | | [address] | [address] | + +--------+ +--------+ + +
--- OUTSIDE RECORDS SUMMARY | ~2019-08-24 | XMS | Encounter Summary ---
Demographics + + + | Address | [address] | | | [place] [address] | + + + | Home Phone [...] + | Grisel Marc | ECON | [address] | | | | | [place] | | | | | [address] | | + + + + + Care Team Providers + +------+ + | Care Vice President Of Engineering Name | Role | Phone [...] | | | | Osteomyeliti | [address] | ,PhD 3627 | | | | | s of knee | [address] | [address] | | | | | region (HCC) | [facility] | [facility] | | | | | Articular | Rd | Rd [place], | | | | | cartilage | [place], [place] | [place] | | | | | disorder | [address] | [address] | | | | | Left knee | Phone: | Phone: | | | | | pain, | [phone] | [phone] | | | | | unspecified | Fax: | Fax: | | | | | chronicity | [phone] | [phone] | | | | | Post-traumat | [...] region (HCC) | | | | Janett Csae | [place], [place] | (Primary Dx); | | | | [place] [address] | [address] | 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 Radiology: X-ray examination 06/04/19 demonstrates [place] changes and mild medial joint space narr owing. There are sclerotic changes noted tibial and femur MRI left knee from [facility] demonstrates Chronic ACL tear and medial join [...] her age we will refer her to [facility] for possible osteochondral allograft, reconstr uction Follow up: linda Saba MD [facility] Orthopaedics and Rehabilitation Clinical Food Consultant Board Certified in Sports Medicine and Orthopaedic Surgery Director of Total Joint Replacement Program, [facility] Orthopaedics and Sports Medicine [address] [place] [address] Office: [phone] documented in this e ncounter Plan of [...]
--- OUTSIDE RECORDS SUMMARY | ~2019-08-24 | XMS | Encounter Summary ---
Demographics + + + | Address | [address] | | | [place] [address] | + + + | Home Phone [...] + | Grisel Marc | ECON | [address] | | | | | [place] | | | | | [address] | | + + + + + Care Team Providers + +------+ + | Care Data Governance Analyst Name | Role | Phone | [...] | | | | Selene Villalta | [address] | | | | | [place] [place] | [phone] | | | | | [place] | | | | | | [address] | | | | | | [phone] | | | +--------+ + + + [...]
--- OUTSIDE RECORDS SUMMARY | ~2019-08-24 | XMS | Encounter Summary ---
Demographics + + + | Address | [address] | | | [place] [address] | + + + | Home Phone [...] [place] | | | | | [address] | | + + + + + Care Team Providers + +------+ + | Care Cardiac Care Nurse Name | Role | Phone | [...]
--- OUTSIDE RECORDS SUMMARY | ~2019-08-24 | XMS | Encounter Summary ---
Demographics + + + | Address | [address] | | | [place] [address] | + + + | Home Phone [...] + | Grisel Marc | ECON | [address] | | | | | [place] | | | | | [address] | | + + + + + Care Team Providers + +------+ + | Care Middleware Solutions Architect Name | Role | Phone | [...] | | [address] | [address] | | | | | [place], [place] | [phone] | | | | | [address] | | | | | | [phone] | | | +--------+ + + + [...]
--- OUTSIDE RECORDS SUMMARY | ~2019-08-24 | XMS | Encounter Summary ---
Demographics + + + | Address | [address] | | | [place] [address] | + + + | Home Phone [...] [place] | | | | | [address] | | + + + + + Care Team Providers + +------+ + | Care Cloud Automation Tester Name | Role | Phone | + [...] + + + + | 09/24/ | Oil Well Logging Engineer | Infectious | Brigid Hardy | [...] [place] | | | | | | [address] | | | | | | [phone] | | | +--------+ + + + [...]
--- OUTSIDE RECORDS SUMMARY | ~2019-08-24 | XMS | Encounter Summary ---
Demographics + + + | Address | [address] | | | [place] [address] | + + + | Home Phone [...] [place] | | | | | [address] | | + + + + + Care Team Providers + +------+ + | Care Inside Technical Sales Representative Name | Role | Phone [...] | | | | | | [place], | | | | | | [place] [address] | | | | | | [phone] | | | +--------+ + + + [...]
--- OUTSIDE RECORDS SUMMARY | ~2019-08-24 | XMS | Encounter Summary ---
Demographics + + + | Address | [address] | | | [place] [address] | + + + | Home Phone [...] [place] | | | | | [address] | | + + + + + Care Team Providers + +------+ + | Care Education Finance Processor Name | Role | Phone | [...] [place] | | | | | | [place], [place] | | | | | | [address] | | | | | | [phone] | | | +--------+ + + + [...]
--- OUTSIDE RECORDS SUMMARY | ~2019-08-24 | XMS | Encounter Summary ---
Demographics + + + | Address | [address] | | | [place] [address] | + + + | Home Phone [...] [place] | | | | | [address] | | + + + + + Care Team Providers + +------+ + | Care Director Of Collections And Archives Name | Role | Phone | + [...] Pavilion | | | | | | [place], [place] | | | | | | [address] | | | | | | [phone] | | | +--------+ + + + [...]
--- OUTSIDE RECORDS SUMMARY | ~2019-08-24 | XMS | Encounter Summary ---
Demographics + + + | Address | [address] | | | [place] [address] | + + + | Home Phone [...] + | Grisel Mrac | ECON | [address] | | | | | [place] | | | | | [address] | | + + + + + Care Team Providers + +------+ + | Care Motor Driver Name | Role | Phone | [...] | | | | of right | [address] | [address] | | | | | patella, | [address] | [address] | | | | | initial | [place], [place] | [place], [place] | | | | | encounter | [address] | [address] | | | | | Pain in | Phone: | Phone: | | | | | right knee | [phone] | [phone] | | | | | | Fax: | Fax: | | | | | | [phone] | [phone] | +--------+--------+ + + + + Encounter [...] | | [address] | [address] | (Primary Dx) | | | | [address] | [phone] | | | | | [place], [place] | | | | | | [address] | | | | | | [phone] | | | +--------+---------+ + + + [...]
--- OUTSIDE RECORDS SUMMARY | ~2019-08-24 | XMS | Encounter Summary ---
Demographics + + + | Address | [address] | | | [place] [address] | + + + | Home Phone [...] + | Grisel Marc | ECON | [address] | | | | | [place] | | | | | [address] | | + + + + + Care Team Providers + +------+ + | Care Finger Buffs Assembler Name | Role | Phone | [...] | | [address] | [address] | | | | | [address] | [phone] | | | | | [place], [place] | | | | | | [address] | | | | | | [phone] | | | +--------+---------+ + + + [...] She had been followed by ID at [facility] also. 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 Of course she knows [...]
--- OUTSIDE RECORDS SUMMARY | ~2019-08-24 | XMS | Encounter Summary ---
Demographics + + + | Address | [address] | | | [place] [address] | + + + | Home Phone [...] [place] | | | | | [address] | | + + + + + Care Team Providers + +------+ + | Care Medical Radiation Dosimetrist Name | Role | Phone | + [...] | | | | [address] | [place] [address] | | | | | Mailcode: L457 | [phone] | | | | | [facility] | | | | | | [place], [place] | | | | | | [address] | | | | | | [phone] | | | +--------+ + + + [...]
--- OUTSIDE RECORDS SUMMARY | ~2019-08-24 | XMS | Encounter Summary ---
Demographics + + + | Address | [address] | | | [place] [address] | + + + | Home Phone [...] [place] | | | | | [address] | | + + + + + Care Team Providers + +------+ + | Care Implant Coordinator Name | Role | Phone | [...] | s of knee | Health | [facility] | | | | | region ([facility]) | Associates | [address] [place], | | | | | AVN | [address] | [place] | | | | | (avascular | St[address] | [address] | | | | | necrosis of | [place], | | | | | | bone) ([facility]) | [place] [address] | | | | | | Pathologic | Phone: | | | | | | fracture of | [phone] | | | | | | tibia or | Fax: | | | | | | fibula | [phone] | | | | | | Septic | | | | | | | 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| | | | | | knee, left | | | | | | | ([facility]) | | | | | | | Procedures | | | | | | | REQUEST TO | | | | | | | SURGERY | | | | | | | ELECTRONIC LAB TECHNICIAN | | | | | | | OK PARTIAL | | | | | | | REMOVAL OF | | | | | | | TIBIA OK | | | | | | | INSERTION | | | | | | | DRUG IMPLANT | | | | | | | DEVICE OK | | | | | | | KNEE | | | | | | | SCOPE,SHAVE | | | | | | | ARTICULAR | | | | | | | CART OK | | | | | | | [...] | left (HCC) | | | | [place], [place] | | | | | | [address] | | | | | | [phone] | | | +--------+---------+ + + + [...] Intraoperative Consult Diagnosis confirmed by: [facility] and Khushi Romero M.D./Pathologist ASSESSMENT: [...] separate note for details). DARRICK BUITRAGO MD [facility] [address] [place] [address] Mailcode: [id number] [place] [id number] Basia Vivar MA - 02/2013 3:15 PM [...]
--- OUTSIDE RECORDS SUMMARY | ~2019-08-24 | XMS | Encounter Summary ---
Demographics + + + | Address | [address] | | | [place] [address] | + + + | Home Phone [...] Grisel Marc | ECON | [address] | | | | | [place] | | | | | [address] | | + + + + + Care Team Providers + +------+ + | Care Cup Trimming Machine Operator Name | Role | Phone [...] | s of knee | Health | [facility] | | | | | region ([facility]) | Associates | [address] [place], | | | | | AVN | [address] | [place] | | | | | (avascular | [address] | [address] | | | | | necrosis of | [place], | | | | | | bone) ([facility]) | [place] [address] | | | | | | Pathologic | Phone: | | | | | | fracture of | [phone] | | | | | | tibia or | Fax: | | | | | | fibula | [phone] | | | | | | Septic | | | | | | | 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| | | | | | knee, left | | | | | | | ([facility]) | | | | | | | Procedures | | | | | | | REQUEST TO | | | | | | | SURGERY | | | | | | | STRUCTURAL WELDER | | | | | | | CO PARTIAL | | | | | | | REMOVAL OF | | | | | | | TIBIA CO | | | | | | | INSERTION | | | | | | | DRUG IMPLANT | | | | | | | DEVICE CO | | | | | | | KNEE | | | | | | | SCOPE,SHAVE | | | | | | | ARTICULAR | | | | | | | CART CO | | | | | | | [...] Pavilion | | | | | | [place], [place] | | | | | | [address] | | | | | | [phone] | | | +--------+---------+ + + + [...] to be followed by Dr. Peck in [place] whose PA is seeing her in clinic [facility]. She has been compliant with non-weightbearing with [...] seconds capillary refill. Palpable dorsalis pedis and extraction machine operator ior tibial pulses. X-RAYS: Reviewed x-rays [...] extensiveness of her infection. DARRICK BUITRAGO MD [facility] [address] [place] [address] Mailcode: [id number] [place] [address] documented in this en counter Plan of Treatment Not on filedocumented as of this encounter Visit Diagnoses + + | Diagnosis | + + | Osteomyelitis of knee region (HCC) - Primary Unspecified osteomyelitis, lower leg | + + documented in this encounter
--- OUTSIDE RECORDS SUMMARY | ~2019-08-24 | XMS | Encounter Summary ---
Demographics + + + | Address | [address] | | | [place] [address] | + + + | Home Phone [...] [place] | | | | | [address] | | + + + + + Care Team Providers + +------+ + | Care Patent Searcher Name | Role | Phone | + [...] | | | | | Health | [facility] | | | | | | Associates | Rd | | | | | | [address] | [place], [place] | | | | | | [address] | [address] | | | | | | [place], | | | | | | | [place] [address] | | | | | | | Phone: | | | | | | | [phone] | | | | | | | Fax: | | | | | | | [phone] | | +--------+--------+ + + + + [...] | | | | [address] | [place] [address] | | | | | Mailcode: L457 | [phone] | | | | | [facility] | | | | | | [facility] [place] | | | | | | [address] | | | | | | [phone] | | | +--------+---------+ + + + [...] UP Referrring Physician: Alton Hernandez MD [address] [place] [address] Primary Care Physician: [facility] [address], [address] [place] [address] Ms. Marc presents to Infectious Diseases Clinic regarding scheduled follow up. History other than "Interim History" below is directly copied from previous ID notes to darya mcdonough. In addition I reviewed the history from the patient's [facility] admiss ion, including but not limited [...] placement of antibiotic beads 09/03/2012: HIRAM Silva [facility] Operative Findings: There were no [...] She was seen in the ER in [place] and had a CT Thor ax that [...] described above. ZOEY PECK MD INFECTIOUS DISEASES [address] [place] [address] Mailcode: L608 [place] [address] documented in this e ncounter Plan of Treatment Not on filedocumented as of this encounter Visit Diagnoses + + | Diagnosis | + + | Osteomyelitis of knee region (HCC) - Primary Unspecified osteomyelitis, lower leg | + + documented in this encounter
--- OUTSIDE RECORDS SUMMARY | ~2019-08-24 | XMS | Encounter Summary ---
Demographics + + + | Address | [address] | | | [place] [address] | + + + | Home Phone [...] [place] | | | | | [address] | | + + + + + Care Team Providers + +------+ + | Care Pharmacist Name | Role | Phone | + [...] + + + + | 09/04/ | Setup Operator | Infectious | Brigid Hardy | | | 2012 | | Diseases at [address] | [place] | | | | | Floor [address] | | | | | | [address] | | | | | | Mailcode: L457 | | | | | | [facility] | | | | | | [place], [place] | | | | | | [address] | | | | | | [phone] | | | +--------+ + + + [...]
--- OUTSIDE RECORDS SUMMARY | ~2019-08-24 | XMS | Encounter Summary ---
Demographics + + + | Address | [address] | | | [place] [address] | + + + | Home Phone [...] [place] | | | | | [address] | | + + + + + Care Team Providers + +------+ + | Care Restaurant Recruiter Name | Role | Phone | + [...] | | | | | | [place], | | | | | | [place] [address] | | | | | | [phone] | | | +--------+ + + + [...]
--- OUTSIDE RECORDS SUMMARY | ~2019-08-24 | XMS | Encounter Summary ---
Demographics + + + | Address | [address] | | | [place] [address] | + + + | Home Phone [...] [place] | | | | | [address] | | + + + + + Care Team Providers + +------+ + | Care Drier Feeder Name | Role | Phone | + +------+ + | Adilia Bob MEAT TEAM MEMBER | PCP | | + +------+ + Encounter Details +--------+ + + + + | Date | Type | Department | Care Team | Description | +--------+ + + + + | 03/10/ | Meat Team Member | Orthopaedics at | Alton Hernandez MD | Osteomyelitis of | | 2012 | | [address] | | knee region (HCC) | | | | [address] | | (Primary Dx); | | | | Mailcode: [id number] | | Pathologic fracture | | | | [facility] | | of tibia or fibula | | | | [place], [place] | | | | | | [address] | | | | | | [phone] | | | +--------+ + + + [...] | + +---------+ + + | [facility] DEPARTMENT OF | | | | [...]
--- OUTSIDE RECORDS SUMMARY | ~2019-08-24 | XMS | Encounter Summary ---
Demographics + + + | Address | [address] | | | [place] [address] | + + + | Home Phone [...] [place] | | | | | [address] | | + + + + + Care Team Providers + +------+ + | Care Security Coordinator Name | Role | Phone | [...] [place] | | | | | Floor [address] | | | | | | [address] | | | | | | Mailcode: L457 | | | | | | [facility] | | | | | | [place], [place] | | | | | | [address] | | | | | | [phone] | | | +--------+ + + + [...] | + +---------+ + + | SONIA NYERNESTO GORMAN | | | | + +---------+ + + documented in this encounter Visit Diagnoses Not on filedocumented in this encounter"
--- OUTSIDE RECORDS SUMMARY | ~2019-08-24 | XMS | Encounter Summary ---
Demographics + + + | Address | [address] | | | [place] [address] | + + + | Home Phone [...] [place] | | | | | [address] | | + + + + + Care Team Providers + +------+ + | Care Coat Operator Insulator Name | Role | Phone | + [...] (Left Knee | | 2019 | | [facility] [address] | Clinic | ) | | | | Deborah Mailcode: [id number] | | | | | | [facility] | | | | | | and Healing, | | | | | | Building | | | | | | Floor [place], [place] | | | | | | [address] | | | | | | [phone] | | | +--------+ + + + [...] Dr. Rodriguez X-Ray Yes, when: 06/04/19; where: [facility] MRI Yes, where: [facility] Via phone 07/05/19 Other Imaging (CT, Ultrasound, etc.) No Is this a W/C injury? no If YES, create referral and complete: .ORTWCNEWPATIENT inside referral Note: We do not accept WC under [place] L[place] as they do not pay at [place] rates. Other out of state claims will only be accepted if they agree to pay at [place] rates docume nted in writing from adjustor. Can you confirm the insurance we will be billing for this visit? Care [place] Note: If OHP, please note which type. E.g. [place], [place], [employer], etc. ) Reminder: Please create referrals for pts with: HMO, OHP, [place], Self-Pay, W/C, TPL an d ED Post- [...] they d like to sign up for [employer] ? Don t forget to pull in CareEveryWhere Additional Comments: documented in this encounter Plan of Treatment Not on filedocumented as of this encounter Visit Diagnoses Not on filedocumented in this encounter
--- OUTSIDE RECORDS SUMMARY | ~2019-08-24 | XMS | Encounter Summary ---
Demographics + + + | Address | [address] | | | [place] [address] | + + + | Home Phone [...] + | Grisel Marc | ECON | [address] | | | | | [place] | | | | | [address] | | + + + + + Care Team Providers + +------+ + | Care Training And Development Director Name | Role | Phone | [...] | | | [address] | [address] | | | | | [address] | [phone] | | | | | [place] | | | | | | [address] | | | | | | [phone] | | | +--------+ + + + [...]
--- OUTSIDE RECORDS SUMMARY | ~2019-08-24 | XMS | Encounter Summary ---
Demographics + + + | Address | [address] | | | [place] [address] | + + + | Home Phone [...] [place] | | | | | [address] | | + + + + + Care Team Providers + +------+ + | Care Seo Manager Name | Role | Phone | + +------+ + | No Pcp Per Patient | PCP | Unavailable | + +------+ + Encounter Details +--------+ + + + + | Date | Type | Department | Care Team | Description | +--------+ + + + + | 07/21/ | Script Reader | Orthopaedics at | Alton Hernandez MD | Leg pain (Primary | | 2011 | | [address] | | Dx) | | | | [address] | | | | | | Mailcode: [id number] | | | | | | [facility] | | | | | | [place], [place] | | | | | | [address] | | | | | | [phone] | | | +--------+ + + + [...]
--- OUTSIDE RECORDS SUMMARY | ~2019-08-24 | XMS | Encounter Summary ---
Demographics + + + | Address | [address] | | | [place] [address] | + + + | Home Phone [...] [place] | | | | | [address] | | + + + + + Care Team Providers + +------+ + | Care Deputy Sheriff Bailiff Name | Role | Phone | + [...] | | | | [place] [place] | [address] | | | | | [address] | [phone] | | | | | [place] | | | | | | [address] | | | | | | [phone] | | | +--------+ + + + [...]
--- OUTSIDE RECORDS SUMMARY | ~2019-08-24 | XMS | Encounter Summary ---
Demographics + + + | Address | [address] | | | [place] [address] | + + + | Home Phone [...] [place] | | | | | [address] | | + + + + + Care Team Providers + +------+ + | Care Roving Changer Name | Role | Phone | + [...] Pavilion | | | | | | [place], [place] | | | | | | [address] | | | | | | [phone] | | | +--------+ + + + [...]
--- OUTSIDE RECORDS SUMMARY | ~2019-08-24 | XMS | Encounter Summary ---
Demographics + + + | Address | [address] | | | [place] [address] | + + + | Home Phone [...] [place] | | | | | [address] | | + + + + + Care Team Providers + +------+ + | Care Bottle Label Inspector Name | Role | Phone | + +------+ + | Adilia Bob PATTERNMAKER PRESSURE CAST | PCP | | + +------+ + [...] | | | | | long-term | [place], [place] | Physician's | | | | | (current) | [address] | Pavilion | | | | | use of | | [place], [place] | | | | | antibiotics | | [address] | | | | | Procedures | | Phone: | | | | | VASC LAB | | [phone] | | | | | UPPER EXT | | Fax: | | | | | PSEUDOANEUR | | [phone] | | | | | COMP LEFT [...] | | | | necrosis of | [facility] | [place] | | | | | bone) ([facility]) | Rd | [address] | | | | | Septic | [place], [place] | [place], | | | | | 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[address] | [place] [address] | | | | | knee, left | | Phone: | | | | | ([facility]) | | [phone] | | | | | Procedures | | Fax: | | | | | CONSULT TO | | [phone] | | | | | INFECTIOUS | [...] Pavilion | | | | | | [place], [place] | | | | | | [address] | | | | | | [phone] | | | +--------+---------+ + + + [...] CLINIC FOLLOW UP Primary Care Physician: [facility] [address] , [address] [place] [address] Ms. Marc presents to Infectious Diseases Clinic [...] doing rodeo on her horse going around [employer], and she was leaning out away from [place]. Her legs spontaneously broke with pathological fracture. [...] HIRAM Silva [facility] Operative Findings: We began by performing [...] medullary canal. We then used our canal driver/merchandiser to thoroughly washout the intramedullary c anal [...] She was seen in the ER in [place] and had a CT Thor ax that [...] a nd follow-up planning. Brigid Hardy PA-C [facility] Department of Infectious Diseases Outpatient IV Antibiotic Therapy Clinic (OPAT) [phone] Pager ID: [phone] [facility] Mail Code M757 [place] [address] documented in this encounter Plan of Treatment [...] [place] | | | | | | [place] | | | | | | | [...]
--- OUTSIDE RECORDS SUMMARY | ~2019-08-24 | XMS | Encounter Summary ---
Demographics + + + | Address | [address] | | | [place] [address] | + + + | Home Phone [...] [place] | | | | | [address] | | + + + + + Care Team Providers + +------+ + | Care Commercial Appraiser Name | Role | Phone | + [...] [address] | | | | | | [place], [place] | | | | | | [address] | | | | | | [phone] | | | +--------+ + + + [...] | e | of knee, left ([facility]) | | + +------+--------+ + + | SYNOVIAL FLUID, | Lab | Routin | Septic arthritis | Ordered: 02/12/2013 | | CRYSTALS | | e | of knee, left ([facility]) | | + +------+--------+ + + | [...]
--- OUTSIDE RECORDS SUMMARY | ~2019-08-24 | XMS | Encounter Summary ---
Demographics + + + | Address | [address] | | | [place] [address] | + + + | Home Phone [...] [place] | | | | | [address] | | + + + + + Care Team Providers + +------+ + | Care Diamond Finishing Supervisor Name | Role | Phone | [...] | | | | | | [place], | | | | | | [place] [address] | | | | | | [phone] | | | +--------+ + + + [...]
--- OUTSIDE RECORDS SUMMARY | ~2019-08-24 | XMS | Encounter Summary ---
Demographics + + + | Address | [address] | | | [place] [address] | + + + | Home Phone [...] + | Grisel Marc | ECON | [address] | | | | | [place] | | | | | [address] | | + + + + + Care Team Providers + +------+ + | Care Inserting Operator Name | Role | Phone | [...] | | | | | right | [address] | NW | | | | | Procedures | [place], | [place] | | | | | MRI KNEE RT | [place] | [address] | | | | | [place] CONT [place] | [address] | Phone: | | | | | MRI LOWER | Phone: | [phone] | | | | | EXTREM JT, | [phone] | Fax: | | | | | W/O CONTRAST | Fax: | [phone] | | | | | | [phone] | | +--------+--------+ + + + + [...] knee | [address] | [address] | | | | | | | [address] THE | | | | | | [place], | [place] | | | | | | [place] [address] | [address] | | | | | | Phone: | Phone: | | | | | | [phone] | [phone] | | | | | | Fax: | Fax: | | | | | | [phone] | [phone] | +--------+--------+ + + + + Encounter Details +--------+---------+ + + + | Date | Type | Department | Care Team | Description | +--------+---------+ + + + | 02/06/ | Office | [facility] | Mars Nicolas, | Pain, joint, knee, | | 2016 | Visit | Sports Medicine & | [address] | right (Primary Dx) | | | | Orthopaedic Surgery | Blvd [place], [place] | | | | | [address] | [address] | | | | | [place] [address] | [phone] | | | | | [place], [place] | | | | | | [address] | | | | | | [phone] | | | +--------+---------+ + + + [...]
--- OUTSIDE RECORDS SUMMARY | ~2019-08-24 | XMS | Encounter Summary ---
Demographics + + + | Address | [address] | | | [place] [address] | + + + | Home Phone [...] [place] | | | | | [address] | | + + + + + Care Team Providers + +------+ + | Care Molder Floor Name | Role | Phone | + [...] | | | | [address] | [place] [address] | | | | | Mailcode: [id number] | [phone] | | | | | [facility] | | | | | | [place], [place] | | | | | | [address] | | | | | | [phone] | | | +--------+ + + + [...]
--- OUTSIDE RECORDS SUMMARY | ~2019-08-24 | XMS | Encounter Summary ---
Demographics + + + | Address | [address] | | | [place] [address] | + + + | Home Phone [...] [place] | | | | | [address] | | + + + + + Care Team Providers + +------+ + | Care French Folder Name | Role | Phone | [...] + + + + | 09/24/ | Snowboard Instructor | Infectious | Brigid Hardy | | | 2012 | | Diseases at [facility] | [place] | | | | | Floor [address] | | | | | | [address] | | | | | | Mailcode: L457 | | | | | | [facility] | | | | | | [place], [place] | | | | | | [address] | | | | | | [phone] | | | +--------+ + + + [...]
--- OUTSIDE RECORDS SUMMARY | ~2019-08-24 | XMS | Encounter Summary ---
Demographics + + + | Address | [address] | | | [place] [address] | + + + | Home Phone [...] [place] | | | | | [address] | | + + + + + Care Team Providers + +------+ + | Care Political Anthropologist Name | Role | Phone | + [...] region (HCC) | | | | at [facility] 3rd Floor | | | | | | [address] | | | | | | Loop [place], [place] | | | | | | [address] | | | | | | [phone] | | | +--------+------+ + + + [...] [facility] | [address] | [place] [address] | | | MERCEDES, ELLIE | JOY [...] - | | | | | | [place] | | + +-------+ + + + + + | Specimen | + + | Blood - Blood | + + + + + + + | Performing | Address | City/State/Zipcode | Phone Number | | Organization | | | | + + + + + | [facility] | [address] | [place] [address] | | | [place] | | | [...] | + + + + + | [facility] | [address] | [place] [address] | | | SERVICES, CORE | JOY [...] | | | LABORATORY | | | [place] | | | SERVICES, | | | [...] | + + + + + | [facility] | [address] | [place] [address] | | | SERVICES, CORE | [address] | | | + + + + + documented in this encounter Visit Diagnoses + + | Diagnosis | + + | Osteomyelitis of knee region (HCC) Unspecified osteomyelitis, lower leg | + + documented in this encounter"
--- OUTSIDE RECORDS SUMMARY | ~2019-08-24 | XMS | Encounter Summary ---
Demographics + + + | Address | [address] | | | [place] [address] | + + + | Home Phone [...] + | Grisel Marc | ECON | [address] | | | | | [place] | | | | | [address] | | + + + + + Care Team Providers + +------+ + | Care Yellow Pages Space Salesperson Name | Role | Phone | [...] | | | | [place] | [address] | | | | | [place] | [phone] | | | | | [place] | | | | | | [address] | | | | | | [phone] | | | +--------+ + + + [...]
--- OUTSIDE RECORDS SUMMARY | ~2019-08-24 | XMS | Encounter Summary ---
Demographics + + + | Address | [address] | | | [place] [address] | + + + | Home Phone [...] [place] | | | | | [address] | | + + + + + Care Team Providers + +------+ + | Care Top Lift Scourer Name | Role | Phone | + [...] | | | | [address] | [place] [address] | | | | | Mailcode: L457 | [phone] | | | | | [facility] | | | | | | [place], [place] | | | | | | [address] | | | | | | [phone] | | | +--------+ + + + [...]
--- OUTSIDE RECORDS SUMMARY | ~2019-08-24 | XMS | Encounter Summary ---
Demographics + + + | Address | [address] | | | [place] [address] | + + + | Home Phone [...] [place] | | | | | [address] | | + + + + + Care Team Providers + +------+ + | Care Metal Drawer Name | Role | Phone | + [...] | | | [address] | [address] | | | | | [place] | [phone] | | | | | [address] | | | | | | [phone] | | | +--------+ + + + [...]
--- OUTSIDE RECORDS SUMMARY | ~2019-08-24 | XMS | Encounter Summary ---
Demographics + + + | Address | [address] | | | [place] [address] | + + + | Home Phone [...] [place] | | | | | [address] | | + + + + + Care Team Providers + +------+ + | Care Metal Melter Name | Role | Phone | + [...] AND | | 2012 | | [facility] | | DEBRIDEMENT OF LEFT | | | | Rd [address] | | PROXIMAL TIBIAL WITH | | | | Hospital Admitting | | PLACEMENT OF CASO4 | | | | Desk Located on the | | ANTIBIOTICS BEADS; | | | | 9th floor | | microbiology x 11 | | | | [place], [place] | | | | | | [address] | | | +--------+---------+ + + + [...] - 09/10/2012 8:12 AM PST [facility] OF [facility]OPAEDICS & [facility]ATION INPATIENT HOSPITAL DISCHARGE SUMMARY & INTERDISCIPLINARY INSTRUCTIONS Patient: Sandy Marc CSN: [id number] Admission Date: 09/02/2012 Discharge Date: 09/05/2012 Attending Physician: Alton Hernandez MD PCP: SAEED Preslye Service: [facility] Orthopaedics & Rehabilitation Diagnoses Principal Final [...] for > 5 years. , Historical Med [facility] Orthopaedic Service Pain Policy At the [...] our pleasure. David Peter MD Pager # [phone] documented in this enc ounter Discharge Instructions Instructions Sally Gupta RN - 09/04/2012Formatting of this note might be different f rom the original. ADDITIONAL INFORMATION: [facility] will provide IV antibiotics and education. They can be r eached at: [phone]. You will need to go to [facility] ([phone] - Unit C) for PICC line dressin [...] Arthritis: After Your Visit", log into your [employer] account at [email or web address] [email or web address]. You can enter [email or web address] in the [employer]" search box. Not on [employer]? Review the MyChart section of your After Visit Summary for directions on aysha norris to sign up. [id number] [employer]. Care instructions adapted under license by [facility]. This care instruction is for use with your licensed healthcar e professional. If you have questions about a medical condition or this instruction, always ask your healthcare professional. [employer] disclaims any warranty or liabili ty for your use of this information. Content Version: 9.5.19750; Last Revised: July 18, 2011 Patient Education [...] x 6 weeks, arrangements being made with [facility] 11. ilvernkonstantin JURADO, Brigid Johnson - 09/04/2012 [...] provider under separate cover. Anticipated OPAT Setting: [facility] [phone] f: [phone] ID/OPAT Clinic follow-up: OPAT clinic visit in 1-2 weeks after discharge in conjunction wit h [facility] Orthopedic Service. We will call to schedule this appointment after patient is disch arged. Interdisciplinary Communication: Please notify OPAT clinic 24-48 hours prior to discharge b y calling [phone] (We need anticipated discharge date & where patient is going; i.e. name, ph one, and fax for home infusion vendor, residential facility, or daily outpatient infusio n center providing outpatient antibiotic therapy services.) [facility] Department of Infectious Disease Outpatient IV Antibiotic Therapy Clinic (OPAT) Pager ID: [phone] [facility] Ravi. Mail Code D242 [place] [address] OPAT teaching note: Education and training for [...] symptoms immediately, and if unable to contact [facility] or the infus ion service [...] care. I provided the patient with the [facility] welcome letter that reiterates the above teaching. I spent 45 minutes in education and training in patient self management for IV antibiotic a nd PICC line use with greater than 50% spent on counseling and/or coordination of care. [facility] DEPARTMENT: IDC INFECT DIS CONSULT - [phone] Place of Service: Inpatient Date of Service: 09/04/2012 CSN: [id number] Suggested Modifier: OPATC David Angel MD - [...] made with LENCHO Peter MD Pager # [phone] David Angel MD - 09/03/2012 7:53 AM [...] 6 weeks David Peter MD Pager # [phone] Malathi Mccauley MD - 09/03/2012 1:27 AM [...] op note MALATHI BRYANT MD [facility] Department of Orthopaedics & Rehabilitation [address] [place] [address] Mail Code: OP31 [facility] [id number] documented in this e ncounter Plan of [...] + + + | IP CONSULT TO [facility] | Routin | 09/03/2012 | [...] | + + + + + | [facility] | [address] | [place] [address] | | | ELLIE LONG | JOY [...] [facility] | [address] | [place] [address] | | | SERVICES, CORE | [address]ARK [...] | + + + + + | [facility] | [address] | [place] [address] | | | SERVICES, CORE | [address] | | | + + + + + OPERATION RECORD (09/03/2012 2:02 PM PST) + + | Transcriptions | + + | David Peter MD - 09/03/2012 12:20 PM PST Date: 09/02/2012ttending | | Surgeon: Alton Hernandez M.D.Promotions Team Leader(s): David | | TAQUERIA Peterreoperative Diagnosis(es):1. Left [...] by | | Dr. Jerald Don in [place] on December 10, 2011. At that time, [...] the reamers. We then used our canal typewriter ribbon winder | | to thoroughly wash out the [...] | | Thiago, M.Engr.General Orthopaedics, Trauma / [id number] / [id number] / [id number] /D: | | 09/02/2012T: 09/03/2012 | | [...] + +---------+ + + IP CONSULT TO [facility] TEAM (09/03/2012 9:16 AM PST) + + + | Narrative | Performed At | + + + | Adriana Torrez 09/03/2012 9:16 AM PICC INSERTION | | | DOCUMENTATION NOTE Today | | | | | | s Date: 09/03/2012 Start Time: 0900 Patient Location (Unit/Room #): | | | 9k Diagnosis: [id number] Osteomyelitis of knee region [id number] AVN | | | (avascular necrosis of bone) [id number] Pathologic fracture of tibia or | | | fibula 982025 Septic arthritis of knee, left Indications: (Select [...] Lot # (or | | | Sticker): [id number] INSERTION SITE: - Basilic Left Local | [...] 09/03/2012Start Time: 0900Patient Location (Unit/Room #): 9kDiagnosis: [id number] | | Osteomyelitis of knee [id number] AVN (avascular necrosis of bone)774044 Pathologic | | fracture of tibia or [id number] Septic arthritis of knee, leftIndications: (Select all [...] CATHETERProduct | | Name: Benistruction: Single4 Fr60cm Lnqt8ht TrimmedLot # (or Sticker): | | [id number] SITE: - BasilicLeftLocal anesthetic used: lidocaineSedation used: [...] |8cm Trimmed | |Lot # (or Sticker): [id number] | | | |INSERTION SITE: - Basilic [...] | + + + + + | [facility] | [address] | [place] [address] | | | SERVICES, CORE | PARK [...] | + + + + + | [facility] | [address] | [place] [address] | | | SERVICES, CORE | JOY [...] | | + +---------+ + + | [facility] DEPARTMENT OF | | | | [...] | | | Final SMEAR:No | | [place] | | | | fungal elements seen [...] + | [facility] | [address] | [place] [address] | | | [facility] | | | | + [...] + | [facility] | [address] | [place] [address] | | | [facility] | | | | + + [...] + | [facility] | [address] | [place] [address] | | | [place] | | | | + + + [...] | | Final SMEAR:AFB not | | [place] | | | | detected source: left [...] | + + + + + | [facility] - | [address] | [place] [address] | | | [place] | | | | + + + [...] | | RESULT | Tissue | | [facility] - | | | | Final SMEAR:No | | [place] | | | | fungal elements seen [...] + | [facility] | [address] | [place] [address] | | | [place] | | | [...] | + + + + + | [facility] - | [address] | [place] [address] | | | [place] | | | | + + + [...] + | [facility] | [address] | [place] [address] | | | [place] | | | | + + + [...] | | Final SMEAR:AFB not | | [place] | | | | detected source: left [...] | + + + + + | [facility] - | [address] | [place] [address] | | | [place] | | | [...] | + + + + + | [facility] - | [address] | [place] [address] | | | [place] | | | | + + + [...] | | | Final SMEAR:No | | [facility] | | | | fungal [...] + | [facility] - | [address] | [place] [address] | | | [place] | | | [...] + | [facility] | [address] | [place] [address] | | | [place] | | | [...] | + + + + + | [facility] | [address] | [place] [address] | | | [place] | | | | + + + [...] | RESULT | Tissue | | [facility] - | | | | Final SMEAR:No | | [place] | | | | fungal elements seen [...] + | [facility] | [address] | [place] [address] | | | [place] | | | | + + + [...] | | Final SMEAR:AFB not | | [place] | | | | detected source: left [...] | + + + + + | [facility] | [address] | [place] [address] | | | [place] | | | [...] + | [facility] | [address] | [place] [address] | | | [place] | | | [...] | + + + + + | [facility] - | [address] | [place] [address] | | | [place] | | | | + + + [...] Final SMEAR:AFB not | | [facility] | | | | detected source: [...] | + + + + + | [facility] - | [address] | [place] [address] | | | [place] | | | | + + + [...] | RESULT | | | [facility] - | | | | Final GRAM STAIN:No | | [place] | | | | squamous epithelial | [...] | + + + + + | [facility] - | [address] | [place], [place] [address] | | | [place] | | | [...] + | [facility] - | [address] | [place] [address] | | | [place] | | | [...] | | Final SMEAR:AFB not | | [place] | | | | detected source: left [...] | + + + + + | [facility] - | [address] | [place] [address] | | | [place] | | | | + + + [...] + | [facility] - | [address] | [place] [address] | | | [place] | | | | + + + [...] + | [facility] - | [address] | [place] [address] | | | [place] | | | [...] + | [facility] - | [address] | [place] [address] | | | [place] | | | | + + + [...] | | Final GRAM STAIN:No | | [place] | | | | squamous epithelial | [...] + | [facility] - | [address] | [place] [address] | | | [place] | | | | + + + [...] + | [facility] - | [address] | [place] [address] | | | [facility] | | | | + + [...] + | [facility] - | [address] | [place] [address] | | | [place] | | | | + + + [...] | + + + + + | [facility] - | [address] | [place] [address] | | | [place] | | | | + + + [...] + | [facility] - | [address] | [place] [address] | | | [place] | | | | + + + [...] | | Final SMEAR:AFB not | | [place] | | | | detected source: left [...] | + + + + + | [facility] - | [address] | [place] [address] | | | [place] | | | [...] + | [facility] - | [address] | [place] [address] | | | [facility] | | | | + [...] | | | Final CULTURE | | [place] | | | | RESULT:No growth | [...] + | [facility] - | [address] | [place] [address] | | | [place] | | | | + + + [...] + + + | [facility] | [address] | [place] [address] | | | PATHOLOGY | [address] [...]
--- OUTSIDE RECORDS SUMMARY | ~2019-08-24 | XMS | Encounter Summary ---
Demographics + + + | Address | [address] | | | [place] [address] | + + + | Home Phone [...] [place] | | | | | [address] | | + + + + + Care Team Providers + +------+ + | Care Soda Dialyzer Name | Role | Phone | + [...] | Osteomyeliti | Family | [address] | | | | | s of knee | Health | [facility] | | | | | region ([facility]) | Associates | [address] [place], | | | | | AVN | [address] | [place] | | | | | (avascular | [address], [place] [address] | [address] | | | | | necrosis of | [place], | | | | | | bone) ([facility]) | [place] [address] | | | | | | Pathologic | Phone: | | | | | | fracture of | [phone] | | | | | | tibia or | Fax: | | | | | | fibula | [phone] | | | | | | Septic | | | | | | | 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| | | | | | knee, left | | | | | | | ([facility]) | | | | | | | Procedures | | | | | | | REQUEST TO | | | | | | | SURGERY | | | | | | | MACHINE INSTALLER | | | | | | | [place] PARTIAL | | | | | | | REMOVAL OF | | | | | | | TIBIA [place] | | | | | | | INSERTION | | | | | | | DRUG IMPLANT | | | | | | | DEVICE [place] | | | | | | | KNEE | | | | | | | SCOPE,SHAVE | | | | | | | ARTICULAR | | | | | | | CART [place] | | | | | | | [...] Pavilion | | | | | | [place], [place] | | | | | | [address] | | | | | | [phone] | | | +--------+---------+ + + + [...] to be followed by Dr. Peck in [place] whose PA is seeing her in clinic today [facility]. She has been compliant with non-weightbearing with [...] seconds capillary refill. Palpable dorsalis pedis and track service worker ior tibial pulses. X-RAYS: Reviewed x-rays with [...] infection. DARRICK BUITRAGO MD [facility] [address] [place] [address] Mailcode: [id number] [place] [address] documented in this en counter Plan of Treatment Not on filedocumented as of this encounter Visit Diagnoses + + | Diagnosis | + + | Osteomyelitis of knee region (HCC) - Primary Unspecified osteomyelitis, lower leg | + + documented in this encounter
--- OUTSIDE RECORDS SUMMARY | ~2019-08-24 | XMS | Encounter Summary ---
Demographics + + + | Address | [address] | | | [place] [address] | + + + | Home Phone [...] + | Grisel Marc | ECON | [address] | | | | | [place] | | | | | [address] | | + + + + + Care Team Providers + +------+ + | Care Geriatric Nurse Name | Role | Phone | [...] [place] | | | | | | [address] | | | | | | [phone] | | | +--------+------+ + + + [...] | + + + + + | [facility] | And | [place] [address] | [phone] | | [facility]ICAL [facility] | Streets | | | + + + + + C-REACTIVE PROTEIN (06/25/2019 8:15 AM PST) + +-------+ + + + | Component | Value | Ref Range | Performed | Pathologist | | | | | At | Signature | + +-------+ + + + | C-REACTIVE | 0.6 | 0.0 - 0.9 mg/dL | [facility] | | | PROTEIN | | | [...] | th And [place]iki | [place] [address] | [phone] | | MEDICAL MENTOR | [facility] | | | + + + + + documented in this encounter Visit Diagnoses + + | Diagnosis | + + | Osteomyelitis of knee region (HCC) Unspecified osteomyelitis, lower leg | + + documented in this encounter"
--- OUTSIDE RECORDS SUMMARY | ~2019-08-24 | XMS | Encounter Summary ---
Demographics + + + | Address | [address] | | | [place] [address] | + + + | Home Phone [...] [place] | | | | | [address] | | + + + + + Care Team Providers + +------+ + | Care Power Lineman Name | Role | Phone | + [...]
--- OUTSIDE RECORDS SUMMARY | ~2019-08-24 | XMS | Clinical Summary ---
Demographics + + + | Address | [address] | | | [place] [address] | + + + | Home Phone [...] [place] | | | | | [address] | | + + + + + Care Team Providers + +------+ + | Care Restaurant Hospitality Manager Name | Role | Phone | + +------+ + | Hina Peterson | PCP | | + +------+ + Source Comments FLIP is fully live on both EpicCare Ambulatory and EpicCare InPatient.Formerly [facility] Allergies + + + + [...] | Possible avascular necrosis. Recommended referral to [facility] | | (10/22/2013 note) | [...] / | | Alton Hernandez MD at [facility] | | Leg | | [...] + + | [facility] | And | [place] [address] | [phone] | | MEDICAL CENTER | Streets | [...] + + | [facility] | [address] | [place] [address] | [phone] | | [facility] | [facility] | | | + + + + + US DUPLEX LOWER EXTREMITY VENOUS LEFT (06/04/2019 10:49 AM PDT) + + | Specimen | + + | | + + + + + | Narrative | Performed At | + + + | [address] | [facility] | | [place] [address] | DEPARTMENT | | [phone] Name: SANDY MARC Phys: | RADIOLOGY | | JAC[place] BLUE : 1990 Sex: F CSN: | | | [id number] MR# [id number] Exam Date: 06/04/2019 | | | EXAM: [...] Transcribed | | | Date/Time: 06/04/2019 11:28 Travel Money Advisor: FLUENCY | | + + + + + | Procedure Note | + + | Interface, Radiology Results - 06/04/2019 11:36 AM PDT [address] | | [place] [address] | | Name: ANGELICA MARCAlex Phys: IZABELLAJACI : 1990 Sex: F | | CSN: [id number] MR# [id number] Exam Date: 06/04/2019 EXAM:LEFT LOWER EXTREMITY | [...] | | |Transcribed Date/Time: 06/04/2019 11:28 | |Travel Money Advisor: FLUENCY | | | | | | [...] + + + | [address] [place] [address] | [facility] | | [place] [address] | DEPARTMENT | | [phone] Name: SANDY MARC Phys: | RADIOLOGY | | JACI BLUE : 1990 Sex: F CSN: | | | [id number] MR# [id number] Exam Date: 06/04/2019 | | | EXAM: X-RAY KNEE 3 VIEWS LEFT [id number]; X-RAY KNEE 2 VIEWS RIGHT | | | 35425 CLINICAL HISTORY: Left knee pain. COMPARISON: None [...] Transcribed Date/Time: 06/04/2019 | | | 23:16 Travel Money Advisor: YORDY | | + + + + + | Procedure Note | + + | Interface, Radiology Results - 06/04/2019 11:21 PM PDT [address] | | [place] [address] | | Name: SANDY MARC Phys: JACI BLUE : 1990 Sex: F | | CSN: [id number] MR# [id number] Exam Date: 06/04/2019 EXAM:X-RAY KNEE 3 VIEWS | | LEFT 19259; X-RAY KNEE 2 VIEWS RIGHT 00065 CLINICAL HISTORY:Left knee pain. | | COMPARISON:None [...] | | |Transcribed Date/Time: 06/04/2019 23:16 | |Travel Money Advisor: YORDY | | | | | | | + + + +---------+ + + | Performing | Address | City/State[facility] | Phone Number | | [...] + + + | [address] [place] [address] | [facility] | | [place] [address] | DEPARTMENT OF | | [phone] Name: DINORA MARCYOU Phys: | RADIOLOGY | | IZABELLAJACI : 1990 Sex: F CSN: | | | [id number] MR# [id number] Exam Date: 06/04/2019 | | | EXAM: X-RAY KNEE 3 VIEWS LEFT 80010; X-RAY KNEE 2 VIEWS RIGHT | | | 46262 CLINICAL HISTORY: Left knee pain. COMPARISON: None [...] Transcribed Date/Time: 06/04/2019 | | | 23:16 Travel Money Advisor: FLUENCY | | + + + + + | Procedure Note | + + | Interface, Radiology Results - 06/04/2019 11:21 PM PDT [address] | | [address] [place] [address] | | Name: SANDY MARC Phys: JACI BLUE : 1990 Sex: F | | CSN: [id number] MR# [id number] Exam Date: 06/04/2019 EXAM:X-RAY KNEE 3 VIEWS | | LEFT 98034; X-RAY KNEE 2 VIEWS RIGHT 55006 CLINICAL HISTORY:Left knee pain. | | COMPARISON:None [...] | | |Transcribed Date/Time: 06/04/2019 23:16 | |Travel Money Advisor: FLUENCY | | | | | | | + + + +---------+ + + | Performing | Address | City/State/[facility] | Phone Number | | [...] | | | + +--------+ +--------+-------+---------+--------+ | CENTRAL SUPPLY TECH MEDICAID | CENTRAL SUPPLY TECH | xxxxxxxx | Effect | | | Medica | | | EASTER | | cindi | | | id | | | [place] | | for | | | | | | | | all | | | | | | | | dates | | | | + +--------+ +--------+-------+---------+--------+ | CENTRAL SUPPLY TECH MEDICAID | CENTRAL SUPPLY TECH | xxxxxxxx | 08/11/19 | | | [...] | 1990 | [phone] | [place] [address] | | | nayla | | | 2 (Home) | | + +--------+ +--------+ + + | Sandy Marc | Person | Self | [birth year] | [address] | | (Aminta Liu | al/Fam | | 1990 | [phone] | [place] [address] | | | nayla | | | [...]
--- OUTSIDE RECORDS SUMMARY | ~2019-08-24 | XMS | Encounter Summary ---
Demographics + + + | Address | [address] | | | [place] [address] | + + + | Home Phone [...] + | Grisel Marc | ECON | [address] | | | | | [place] | | | | | [address] | | + + + + + Care Team Providers + +------+ + | Care Editor Map Name | Role | Phone | + [...] | | | | | Unspecified | [address] | [address] | | | | | tear of | [place], | [place] | | | | | unspecified | [place] | [place], [place] | | | | | meniscus, | [address] | [address] | | | | | current | Phone: | Phone: | | | | | injury, left | [phone] | [phone] | | | | | knee, | Fax: | Fax: | | | | | initial | [phone] | [phone] | | | | | encounter | [...] | | | | | | [place] DUPLEX | | | | | | [...] [address]oy | | | | | [place], | [place], [place] | | | | | [place] [address] | [address] | | | | | [phone] | [phone] | | | | | | | [...] + + + | [address] | [facility] | | [place] [address] | DEPARTMENT OF | | [phone] Name: SANDY MARC Phys: | RADIOLOGY | | JACI BLUE : 1990 Sex: F CSN: | | | [id number] MR# [id number] Exam Date: 06/04/2019 | | | EXAM: [...] Transcribed | | | Date/Time: 06/04/2019 11:28 Asset Protection Officer: FLUENCY | | + + + + + | Procedure Note | + + | Interface, Radiology Results - 06/04/2019 11:36 AM PDT [address] | | [place] [address] | | Name: SANDY MARC Phys: JACI BLUE : 1990 Sex: F | | CSN: [id number] MR# [id number] Exam Date: 06/04/2019 EXAM:LEFT LOWER EXTREMITY | [...] | | |Transcribed Date/Time: 06/04/2019 11:28 | |Asset Protection Officer: FLUENCY | | | | | [...]
--- OUTSIDE RECORDS SUMMARY | ~2019-08-24 | XMS | Encounter Summary ---
Demographics + + + | Address | [address] | | | [place] [address] | + + + | Home Phone [...] [place] | | | | | [address] | | + + + + + Care Team Providers + +------+ + | Care Process Engineering Intern Name | Role | Phone | + +------+ + | Hian Peterson | PCP | | + +------+ [...] | | dislocation, | [address] | | | | | right, | [address] | [place], | | | | | initial | [place], | [place] [address] | | | | | encounter | [place] | Phone: | | | | | Procedures | [address] | [phone] | | | | | PHYSICAL | Phone: | Fax: | | | | | THERAPY | [phone] | [phone] | | | | | REFERRAL | Fax: | | | | | | | [phone] | | +--------+--------+ + + + + [...] | | | | | | [place] [address] | [address] | | | | | | Phone: | Phone: | | | | | | [phone] | [phone] | | | | | | Fax: | Fax: | | | | | | [phone] | [phone] | +--------+--------+ + + + + Encounter [...] | | | [address] | [address] | dislocation, right, | | | | [place] [address] | [phone] | initial encounter | | | | [place] | | | | | | [address] | | | | | | [phone] | | | +--------+---------+ + + + [...] | + + + | [address] [place] [address] | [facility] | | [place] [address] | DEPARTMENT OF | | [phone] Name: SANDY MARC Phys: | RADIOLOGY | | CINTHYA NICOLAS : 1990 Sex: F | | | CSN: [id number] MR# [id number] Exam Date: | | | 12/06/2015 EXAM: [...] Transcribed Date/Time: | | | 12/06/2015 15:56 Cutter Operator Asbestos Shingle: YORDY | | + + + + + | Procedure Note | + + | Interface, Radiology Results - 12/06/2015 4:01 PM PDT [address] | | [address] [place] [address] | | Name: SANDY MARC Phys: CINTHYA NICOLAS : 1990 Sex: F | | CSN: [id number] MR# [id number] Exam Date: 12/06/2015 EXAM:X-RAY KNEE 3 VIEWS [...] | | |Transcribed Date/Time: 12/06/2015 15:56 | |Cutter Operator Asbestos Shingle: FLUENCY | | | | | | [...]
--- OUTSIDE RECORDS SUMMARY | ~2019-08-24 | XMS | Encounter Summary ---
Demographics + + + | Address | [address] | | | [place] [address] | + + + | Home Phone [...] [place] | | | | | [address] | | + + + + + Care Team Providers + +------+ + | Care Engraver Rubber Name | Role | Phone | [...] | | | | | | [place], | | | | | | [place] [address] | | | | | | [phone] | | | +--------+ + + + [...]
--- OUTSIDE RECORDS SUMMARY | ~2019-08-24 | XMS | Encounter Summary ---
Demographics + + + | Address | [address] | | | [place] [address] | + + + | Home Phone [...] + | Grisel Marc | ECON | [address] | | | | | [place] | | | | | [address] | | + + + + + Care Team Providers + +------+ + | Care Overage Shortage And Damage Clerk Name | Role | Phone | [...] | | | Orthopaedic Surgery | Blvd [place], [place] | chronicity (Primary | | | | [address] | [address] | Dx); Tears of | | | | [place], [place] | [phone] | meniscus and | | | | [address] | | anterior cruciate | | | | [phone] | | ligament of left | | [...] Marc is a 28 y.o. female from [place] who presents to the office today for [...] was referred fo r an MRI in [place] to evaluate this further. Her MRI description [...] MRI left knee from [facility] in [place] demonstrates Chronic ACL tear and medial join [...] tibial plateau fracture requiring multiple surgeries and tank pumper panelboard IV antibiotics. Gisselle connolly was doing well until recent hyperextension injury. We reviewed detail of MRI including ACL tear, medial meniscus tear and medial cartilage loss. Risks of ACL reconstruction include i nfection and potentially continued pain/worsening of medial compartment arthritis. I will re view case with Dr Saba. Can potentially refer to [facility] if she is interested in ACL recon. Follow up: w/ Jayant Blue PA-C [facility] Orthopaedic Physician Nut Picker [facility] [address] [place] [address] Office: [phone] documented in this e ncounter Plan of [...]
--- OUTSIDE RECORDS SUMMARY | ~2019-08-24 | XMS | Encounter Summary ---
Demographics + + + | Address | [address] | | | [place] [address] | + + + | Home Phone [...] [place] | | | | | [address] | | + + + + + Care Team Providers + +------+ + | Care Wheelchair Van Driver Name | Role | Phone | [...] [facility] | | | | | | [place], [place] | | | | | | [address] | | | | | | [phone] | | | +--------+ + + + [...]
--- OUTSIDE RECORDS SUMMARY | 2019-08-24 18:04 | XMS ---
PreManage Notification: ALYSA HARTMAN Security Quality Control Engineer Events No recent Security Events currently on file CRITERIA MET - 6 ED Visits in 6 Months - [facility] - Has Care Guidelines - PDMP - [facility] - 2 Visits in 30 Days CARE PROVIDERS EFRAÍN Singer Nurse Practitioner 04/26/2019-Tai GEORGES PHONE: [phone] SARA CLIFFORD Physician Upsetting Machine Operator 07/14/2015-Tai Condon PHONE: [phone] SARA CLIFFORD Primary Care Current PHONE: Unknown SARA CLIFFORD Primary Care 07/14/2015-[place] PHONE: [phone] [facility] 07/14/2015-[facility] PHONE: [phone] Guidelines Source: [facility] Bernard Becker Guidelines Date: 02/15/2019 Care Coordination: Mental health services provided by [facility].\T\nbsp; Please contact [facility] with mental health concerns.\T\nbsp; [place]: [phone]\T\ nbsp; [place]: [phone]. E.D. VISIT COUNT (12 MO.) 4 [facility] [address] [address] COREY Burrell TOTAL 9 NOTE: Visits indicate total known visits. ED/UCC VISIT TRACKING (12 MO.) 08/24/2019 18:02 COREY Funk TYPE: Emergency COMPLAINT: - TOOTH PAIN, POSSIBLE INJ 08/17/2019 20:37 COREY Funk TYPE: Emergency COMPLAINT: - ABD PAIN/FEVER DIAGNOSES: - Allergy status to sulfonamides status - Latex allergy status - Allergy status to penicillin - Nicotine dependence, unspecified, uncomplicated - Other roasterman (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 - Right lower quadrant pain - Attention-deficit hyperactivity disorder, unspecified type - Other nonmedicinal substance allergy status 06/19/2019 13:51 [facility] FISCHER TYPE: Emergency DIAGNOSES: - poss vomiting blood - Emesis - Proc/trtmt not crd out d/t pt lv bef seen by [facility] prov 05/28/2019 22:32 COREY Mendiola [place] TYPE: Emergency COMPLAINT: - LT KNEE INJURY DIAGNOSES: - Attention-deficit hyperactivity disorder, unspecified type - Nicotine dependence, unspecified, uncomplicated - Allergy status to sulfonamides status - Other nonmedicinal substance allergy status - Pain in left knee - Allergy status to penicillin - Sprain of unspecified site of left knee, initial encounter - Other roasterman (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 - Overexertion from prolonged static or awkward postures, init 05/01/2019 01:28 [facility] [place] TYPE: Emergency DIAGNOSES: - COUGH [...] - Nicotine dependence, unspecified, uncomplicated - Other detention (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 04/06/2019 00:58 [facility] [place] TYPE: Emergency DIAGNOSES: - Acute pharyngitis, unspecified - sore throat 02/14/2019 15:53 [facility] [place] TYPE: Emergency DIAGNOSES: - WEAKNES NAUSEA VOMITING - Nausea with vomiting, unspecified - Dizziness and giddiness 12/11/2018 17:21 [facility] [place] TYPE: Emergency DIAGNOSES: - Unspecified abdominal pain - L FLANK PAIN INPATIENT VISIT TRACKING (12 MO.) No inpatient visits to display in this time frame [email or web address]
[2019-08-24] MEDS ORDERED: CLEOCIN HCL300 MG PO (18:50)
== END 2019-08-24 20:11 | disposition home or self-care (01) ==
LOC: ED 18:00
DX: S02.5XXA Fracture of tooth (traumatic), initial encounter for closed fracture (principal); K04.7 Periapical abscess without sinus; F17.200 Nicotine dependence, unspecified, uncomplicated; Z88.2 Allergy status to sulfonamides; Z91.048 Other nonmedicinal substance allergy status; Z88.0 Allergy status to penicillin; Z91.040 Latex allergy status; Z79.899 Other long term (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; W22.8XXA Striking against or struck by other objects, initial encounter
CPT/HCPCS: 70486; 99283-25; A9270

== ENCOUNTER 2019-09-19 08:25 | Emergency (ER) | payer OTHER ==
[~2019-09-19] VITALS: Ht 170.2 cm; Wt 86.2 kg
[~2019-09-19 08:25] MED LIST changes: +CLEOCIN HCL300 MG PO
--- OUTSIDE RECORDS SUMMARY | 2019-09-19 08:28 | XMS ---
PreManage Notification: ALYSA HARTMAN Security Pest Controller Assistant Events No recent Security Events currently on file CRITERIA MET - 6 ED Visits in 6 Months - [facility] - Has Care Guidelines - PDMP - [facility] - 2 Visits in 30 Days CARE PROVIDERS EFRAÍN Singer Nurse Practitioner 04/26/2019-Tai GEORGES PHONE: [phone] SARA CLIFFORD Physician [place]ra [place]ta Roofer 07/14/2015-Tai Condon PHONE: [phone] MARJORIE [facility] 08/25/2019-Current PHONE: [phone] SARA CLIFFORD Primary Care Current PHONE: Unknown SARA CLIFFORD Primary Care 07/14/2015-Current PHONE: [phone] [facility] Primary Care 07/14/2015-[facility] PHONE: [phone] Guidelines Source: [facility] Guidelines Date: 02/15/2019 Care Coordination: Mental health services provided by [facility].\T\nbsp; Please contact [facility] with mental health concerns.\T\nbsp; [place]: [phone]\T\ nbsp; [place]: [phone]. Care History Medical/Surgical 08/25/2019 [facility] - PATIENT HAS PCP DR RORY INFANTE IN [place]. - PATIENT HAS AN APT WITH DENTAL CLINIC ON Friday08/30/2019. E.D. VISIT COUNT (12 MO.) 1 [facility] 4 [facility] [place] TOTAL 11 NOTE: Visits indicate total known visits. 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 - Striking against or struck by other objects, init encntr - Allergy status to sulfonamides status 08/17/2019 20:37 [facility] [place] TYPE: Emergency COMPLAINT: - ABD PAIN/FEVER DIAGNOSES: - Allergy status to sulfonamides status - Latex allergy status - Allergy status to penicillin - Nicotine dependence, unspecified, uncomplicated - 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 - Right lower quadrant pain - Attention-deficit hyperactivity disorder, unspecified type - Other nonmedicinal substance allergy status 06/19/2019 13:51 [facility] [place] TYPE: Emergency DIAGNOSES: - poss vomiting blood - Emesis - Proc/trtmt not crd out d/t pt lv bef seen by [facility] 05/28/2019 22:32 [facility] TYPE: Emergency COMPLAINT: - LT KNEE INJURY DIAGNOSES: - Attention-deficit hyperactivity disorder, unspecified type - Nicotine dependence, unspecified, uncomplicated - Allergy status to sulfonamides status - Other nonmedicinal substance allergy status - Pain in left knee - Allergy status to penicillin - Sprain of unspecified site of left knee, initial encounter - Other custodial (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 - Overexertion from prolonged static or awkward postures, init 05/01/2019 01:28 [facility] [place] TYPE: Emergency DIAGNOSES: - COUGH [...] - Nicotine dependence, unspecified, uncomplicated - Other custodial (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 04/06/2019 00:58 [facility] [place] TYPE: Emergency DIAGNOSES: - Acute pharyngitis, unspecified - sore throat 02/14/2019 15:53 [facility] [place] TYPE: Emergency DIAGNOSES: - WEAKNES NAUSEA VOMITING - Nausea with vomiting, unspecified - Dizziness and giddiness 12/11/2018 17:21 [facility] [place] [facility] [place] TYPE: Emergency DIAGNOSES: - Unspecified abdominal pain - L FLANK PAIN INPATIENT VISIT TRACKING (12 MO.) No inpatient visits to display in this time frame [email or web address]
[2019-09-19] MEDS ORDERED: ULTRAM50 MG PO (09:33)
== END 2019-09-19 10:14 | disposition home or self-care (01) ==
LOC: ED 08:25
DX: S83.92XA Sprain of unspecified site of left knee, initial encounter (principal); X58.XXXA Exposure to other specified factors, initial encounter; F90.9 Attention-deficit hyperactivity disorder, unspecified type; F17.200 Nicotine dependence, unspecified, uncomplicated; Z88.8 Allergy status to other drugs, medicaments and biological substances; Z88.2 Allergy status to sulfonamides; Z88.0 Allergy status to penicillin; Z91.040 Latex allergy status; Z91.048 Other nonmedicinal substance allergy status; Z79.899 Other long term (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
CPT/HCPCS: 73560; 99283-25

== ENCOUNTER 2019-10-11 13:00 | Emergency (ER) | payer OTHER ==
[~2019-10-11] VITALS: Ht 170.2 cm; Wt 86.2 kg
[~2019-10-11 13:00] MED LIST changes: +ULTRAM50 MG PO
--- OUTSIDE RECORDS SUMMARY | 2019-10-11 13:02 | XMS ---
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 Primary Care 07/14/2015-[facility] PHONE: [phone] Guidelines Source: [facility] Guidelines Date: 02/15/2019 Care Coordination: Mental health services provided by [facility].\T\nbsp; Please contact [facility] with mental health concerns.\T\nbsp; [place]: [phone]\T\ nbsp; [place]: [phone]. Care History Medical/Surgical 09/20/2019 [facility] Care Recommendation: - USE EXTREME CAUTION IN GIVING NARCOTICS. - Avoid Discharge Narcotic prescriptions if at all possible. Physician discretion. 08/25/2019 [facility] - PATIENT HAS PCP DR AMADOR- JANAE INFANTE [place]. - PATIENT HAS AN APT WITH DENTAL CLINIC ON Friday08/30/2019. E.D. VISIT COUNT (12 MO.) 1 [facility] 4 [facility] 1 [facility] [address] [place], [place] [address] 6 [facility] TOTAL 13 NOTE: Visits indicate total known visits. ED/UCC VISIT TRACKING (12 MO.) 10/11/2019 13:[address] [facility] [address] [facility] TYPE: Emergency COMPLAINT: - COUGH 09/25/2019 22:01 [facility] [place] TYPE: Emergency COMPLAINT: - KNEE PAIN - PAIN IN LEFT KNEE DIAGNOSES: 0. Pain in left knee 1. Unspecified injury of left lower leg, initial encounter 3. Exposure to other specified factors, initial encounter 4. Activity, unspecified 5. Unspecified place or not applicable 6. Nicotine dependence, cigarettes, uncomplicated 09/19/2019 08:25 [facility] TYPE: Emergency COMPLAINT: - LEFT KNEE PAIN DIAGNOSES: - Allergy status to oth drug/meds/biol subst status - Latex allergy status - Nicotine dependence, unspecified, uncomplicated - Other nonmedicinal substance allergy status - Attention-deficit hyperactivity disorder, unspecified type - Other beam racker (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 - Allergy status to penicillin - Sprain of unspecified site of left knee, initial encounter - Allergy status to sulfonamides status - Exposure to other specified factors, initial encounter 09/16/2019 00:28 [facility] [place] TYPE: Emergency DIAGNOSES: - Poss UTI/Vaginal [...] of teeth and supporting structures - Other jail (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 - Striking against or struck by other objects, init encntr - Allergy status to sulfonamides status 08/17/2019 20:37 [facility] [place] TYPE: Emergency COMPLAINT: - ABD PAIN/FEVER DIAGNOSES: - Allergy status to sulfonamides status - Latex allergy status - Allergy status to penicillin - Nicotine dependence, unspecified, uncomplicated - Other beam racker (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 - Right lower quadrant pain - Attention-deficit hyperactivity disorder, unspecified type - Other nonmedicinal substance allergy status 06/19/2019 13:51 [facility] [place] [facility] DIAGNOSES: - poss vomiting blood - Emesis - Proc/trtmt not crd out d/t pt lv bef seen by [facility] prov 05/28/2019 22:32 [facility] [place] TYPE: Emergency COMPLAINT: - LT KNEE INJURY DIAGNOSES: - Attention-deficit hyperactivity disorder, unspecified type - Nicotine dependence, unspecified, uncomplicated - Allergy status to sulfonamides status - Other nonmedicinal substance allergy status - Pain in left knee - Allergy status to penicillin - Sprain of unspecified site of left knee, initial encounter - Other beam racker (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 - Overexertion from prolonged static or awkward postures, init 05/01/2019 01:28 [facility] [place] TYPE: Emergency DIAGNOSES: - COUGH EAR [...] - Nicotine dependence, unspecified, uncomplicated - Other beam racker (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 04/06/2019 00:58 [facility] [place] TYPE: Emergency DIAGNOSES: - Acute pharyngitis, unspecified - sore throat 02/14/2019 15:53 [facility] [place] TYPE: Emergency DIAGNOSES: - WEAKNES NAUSEA VOMITING - Nausea with vomiting, unspecified - Dizziness and giddiness 12/11/2018 17:21 [facility] [place] TYPE: Emergency DIAGNOSES: - Unspecified abdominal pain - L FLANK PAIN INPATIENT VISIT TRACKING (12 MO.) No inpatient visits to display in this time frame [email or web address]
== END 2019-10-11 13:41 | disposition home or self-care (01) ==
LOC: ED 13:00
DX: R05 Cough (principal)

== ENCOUNTER 2019-12-16 19:36 | Emergency (ER) | payer OTHER ==
[~2019-12-16] VITALS: Ht 170.2 cm; Wt 81.7 kg
--- OUTSIDE RECORDS SUMMARY | ~2019-12-16 | XMS | Encounter Summary ---
Demographics + + + | Address | [address] | | | [place] [address] | + + + | Home Phone | | + + + | Preferred Language | Unknown | + + + | Marital Status | Single | + + + | Confucianism Affiliation | LUT | + + + | Race | White | + + + | Ethnic Group | Not or | + + + Author + + + | Author | [facility] | + + + | Organization | [facility] | + + + | Address | Unknown | + + + | Phone | Unavailable | + + + Support + + + + + | Name | Relationship | Address | Phone | + + + + + | Grisel Marc | ECON | [address] | | | | | [place] | | | | | [address] | | + + + + + Care Team Providers + +------+ + | Care Flight Purser Name | Role | Phone | + +------+ + | Hina Peterson | PCP | | + +------+ + Reason for Visit + + + | Reason | Comments | + + + | Follow-up visit | Lt Knee ACL | + + + Encounter Details +--------+---------+ + + + | Date | Type | Department | Care Team | Description | +--------+---------+ + + + | 12/08/ | Office | [facility] | Bambi Bautista | Rupture of anterior | | 2020 | Visit | Sports Medicine & | STANTON Johnson [address] [facility] | cruciate ligament of | | | | Orthopaedic Surgery | [facility] | left knee, | | | | [address] | [place], [place] | subsequent encounter | | | | [place] | [address] | (Primary Dx); | | | | [address] | [phone] | Articular cartilage | | | | [phone] | | disorder; | | | | | | 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; Left knee | | | | | | pain, unspecified | | | | | | chronicity; | | | | | | Osteomyelitis of | | | | | | knee region (HCC) | +--------+---------+ + + + Social History [...] in contact | No / Unsure | 12/09/2019 1:57 PM | | with someone who was confirmed or | | PDT | | suspected to have Coronavirus / COVID-19? | | | + + + + documented as of this encounter Last Filed Vital Signs + + + + + | Vital Sign | Reading | Time Taken | Comments | + + + + + | Blood Pressure | - | - | | + + + + + | Pulse | - | - | | + + + + + | Temperature | - | - | | + + + + + | Respiratory Rate | - | - | | + + + + + | Oxygen Saturation | - | - | | + + + + + | Inhaled Oxygen | - | - | | | Concentration | | | | + + + + + | Weight | 89.8 kg (198 lb) | 12/09/2019 2:00 PM | | | | | PDT | | + + + + + | Height | 170.2 cm (5' 7") | 12/09/2019 2:00 PM | | | | | PDT | | + + + + + | Body Mass Index | 31.01 | 12/09/2019 2:00 PM | | | | | PDT | | + + + + + documented in this encounter Progress Notes Bambi Bautista PA-C - 12/09/2019 2:15 PM PDTFormatting of this note might be differen t from the original. The visit took place via Telemedicine. Patient location is the home. Patient was located in the [facility] at the time of the visit. Telepresenter (relative and/or regular senior care provider) was not used during the visit. The names of all persons participating in the virtual visit and their roles are: Bambi wilder PA-C. Chief Complaint: Left knee pain HPI: Sandy (Sharif-ee-oc) Alexa Marc is a 29 y.o. female who returns today in follow up of left knee pain.She has had a complex history with this knee going back 10 years or so. She h ad sustained a tibial plateau fracture that required ORIF. This subsequently was infected wi [place].She developed osteo and required multiple surgeries I believe at [facility] to clear this infection over the next 1-2 years. The infection resolved but she has had a painful knee fo r some time. 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 The patient was seen in the office on 06/25/[address] Saba. She was referred to [facility] for possible osteochondral allograft, reconstruction. The patient has been working on smok ing cessation but unfortunately has started to smoke again recently. [facility] will not see the patient until she has documentation of smoking cessation. The patient reports she experienced a pop in her left knee and increased pain on 09/25/2019, she went to [facility] ED in [place], [place] for further evaluation. The patient reports she w as told by the ED provider that her knee was the worst knee he has ever seen for her age and her knee was hanging on by a thread." She denies any new injury, trauma or falls. 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 The patient stated that she received her new ACL brace and it works well for her. She repo rts she feels increased stability in the knee brace as well as added comfort and support. S he remains on modified duty at work and reports these restrictions are helping with her knee pain. She has been working 5 days per week. She has not been icing regularly. She reports bruising and increased swelling over the medial aspect of her knee without recent injury. S he denies any fevers or chills. Current pain is 4/10 and is characterized as sharp, dull, stabbing, aching, throbbing, burn ing and constant. Symptoms are worsening. The pain does not wake the patient at night. It is associated with bruising and weakness. Symptoms are aggravated by standing, walking, st airs, squatting, kneeling and bending, and improve with heat. She is using naproxen and, me thocarbamol for the pain. Past Medical History: Diagnosis Date ADHD (attention deficit hyperactivity disorder) Asthma Past Surgical History Procedure Laterality Date Leg surgery 12/10/2011 L Nasal septum surgery 02/05/2007 Leg surgery 2011 x3; [facility] L prox tibial, I&D, knee synovectomy for infection I &d left tibia 09/02/12 placement of antibiotic CaSO4 beads Left knee aspiration for culture, arthroscopy with partial medial meniscectomy and medi al tibial plateau chondroplasty. 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 Social Needs Financial resource strain: Not on file Food insecurity: Worry: Not on file Inability: Not on file Transportation needs: Medical: Not on file Non-medical: Not on file Tobacco Use Smoking status: Former Smoker Packs/day: 0.25 Years: 2.00 Pack years: 0.50 Types: Cigarettes Last attempt to quit: 01/30/2016 Years since quittin.8 Smokeless tobacco: Never Used Substance and Sexual Activity Alcohol use: Yes Alcohol/week: 0.0 standard drinks Comment: 4 [address] Friday [address] nights Drug use: No Sexual activity: Not on file Lifestyle Physical activity: Days per week: Not on file Minutes per session: Not on file Stress: Not on file Relationships Social connections: Talks on phone: Not on file Gets together: Not on file Attends worship service: Not on file Active member of club or organization: Not on file Attends meetings of clubs or organizations: Not on file Relationship status: Not on file Other Topics Concern Service Not Asked Blood Transfusions Not Asked Caffeine Concern Not Asked Occupational Exposure Not Asked Hobby Hazards Not Asked Sleep Concern Not Asked Stress Concern Not Asked Weight Concern Not Asked Special Diet Not Asked Back Care Not Asked Exercise No Bike Helmet Not Asked Seat Belt Not Asked Self-Exams Not Asked Social History Narrative Lives with her parents in [place]. Has adequate support should surgery be needed. D enies transportation problems. Review of Systems: Completed and reviewed with patient per patient intake form. See scanned document for refe rence. Physical Exam: There were no vitals taken for this visit. Alert, pleasant and in NAD Left knee: Inspection: Mild swelling, well healed surgical incisions. No erythema or ecchymosis. ACL brace on leg. Palpation: Tender over medial aspect of knee and pes anserine. Range of motion: 0-110 degrees Strength: Good quadriceps contracture . Stability: normal stability on varus /valgus stress examination [facility] Radiology: X-ray examination Left knee 06/04/19 demonstrates [place] changes and mild medial joint space narrowing. There are sclerotic changes noted tibial and femur MRI left knee from [facility] in [place] demonstrates Chronic ACL tear and medial join t space degenerative changes/cartilage loss, subchondral bone cystic changes XR Left knee 10/07/19 No acute fracture. Unchanged from previous xray. Assessment: Left knee DJD Left knee ACL tear H/o osteomyelitis in left knee Plan: The patient's clinical history and physical exam are consistent with chronic left knee ACL tear, mild degenerative disease and history of osteomyelitis. I reviewed the natural histor y of this disorder with the patient and have outlined treatment options. The patient has be en wearing her new custom ACL brace and reports significantly improved fit and comfort. She reports working with the knee brace on provides her with added stability and comfort. She was encouraged to follow up with [facility] for possible osteochondral allograft and reconstructio n surgery. She will continue to work on smoking cessation, as this is required for [facility]. 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 She will remain on light duty at work with no lifti ng more than 25 lb and the ability to take breaks as needed to rest her knee. In an effort t o reduce her knee pain and swelling I have prescribed diclofenac, strict dosing instructions and precautions discussed. She understands she is not to take additional NSAIDs. Once the p atient has stopped smoking for 4 weeks, she was encouraged to get smoking cessasion testing done by her PCP and I will place a new referral in an effort to get her in to [facility]. Follow up: PRN, pt instructed to contact the clinic once smoking cessation is complete for new referral to [facility], or if she has any additional questions or concerns. I spent 20 minutes reviewing the patient s query, recent records, relevant images/results , communicating with the patient about their chief complaint & performing documentation. Bambi Bautista PA-C Orthopedic Physician Business Controller [facility] Orthopaedics and Rehabilitation [facility] Orthopaedics and Sports Medicine [address] [place] [address] Office: [phone] documented in this encoun ter Plan of Treatment Not on filedocumented as of this encounter Visit Diagnoses + + | Diagnosis | + + | Rupture of anterior cruciate ligament of left knee, subsequent encounter - Primary | + + | Articular cartilage disorder | + + | Post-traumatic osteoarthritis of left knee Secondary localized osteoarthrosis, lower | | leg | + + | Left knee pain, unspecified chronicity | + + | Osteomyelitis of knee region (HCC) Unspecified osteomyelitis, lower leg | + + documented in this encounter
--- OUTSIDE RECORDS SUMMARY | ~2019-12-16 | XMS | Encounter Summary ---
Demographics + + + | Address | [address] | | | [place] [address] | + + + | Home Phone | | + + + | Preferred Language | Unknown | + + + | Marital Status | Single | + + + | Christian Affiliation | LUT | + + + | Race | White | + + + | Ethnic Group | Not or | + + + Author + + + | Author | [facility] | + + + | Organization | [facility] | + + + | Address | Unknown | + + + | Phone | Unavailable | + + + Support + + + + + | Name | Relationship | Address | Phone | + + + + + | Grisel Marc | ECON | [address] | | | | | [place] | | | | | [address] | | + + + + + Care Team Providers + +------+ + | Care Area Director Of Home Health Sales Name | Role | Phone | + +------+ + | No Pcp Per Patient | PCP | Unavailable | + +------+ + Encounter Details +--------+ + + + + | Date | Type | Department | Care Team | Description | +--------+ + + + + | 08/06/ | Hospital | Diagnostic | | | | 2011 | Encounter | [facility] | | | | | | [address] | | | | | | [address] Physician[address] | | | | | | [place], [facility] Floor | | | | | | [place], [place] | | | | | | [address] | | | | | | [phone] | | | +--------+ + + + [...] X-RAY TIBIA & FIBULA | Routin | 08/06/2012 | Leg pain | Results for this | | 2 VIEWS LT | e | 12:23 PM | | procedure are in the | | | | PST | | results section. | + +--------+ + + + documented in this encounter Results X-RAY TIBIA & FIBULA 2 VIEWS LT (08/06/2012 12:23 PM PST) + + + + + + | Component | Value | Ref Range | Performed | Pathologist | | | | | At | Signature | + + + + + + | TIBIA AND | STUDY: TIBIA AND FIBULA | | | | | FIBULA 2 | 2 VIEWS LT 08/06/12 | | | | | VIEWS LT | 12:23:00 HISTORY: Leg | | | | | | pain. Evaluate for | | | | | | fracture. COMPARISON: | | | | | | None. FINDINGS: Within | | | | | | the proximal tibial | | | | | | metadiaphysis there is a | | | | | | 1.7 x 9.3 cmpatchy | | | | | | density which appears to | | | | | | be surgical cement. | | | | | | There issuspected | | | | | | focal disruption of the | | | | | | medial tibial articular | | | | | | surface,consistent with | | | | | | prior surgery or | | | | | | traumatic injury. The | | | | | | bones areosteopenic. The | | | | | | joint spaces are | | | | | | otherwise intact. | | | | | | There is no | | | | | | acutefracture or focal | | | | | | destruction. Alignment | | | | | | is anatomic. There | | | | | | isgeneralized soft | | | | | | tissue atrophy. | | | | | | IMPRESSION: Patchy | | | | | | density within the | | | | | | proximal tibial | | | | | | metadiaphysis with | | | | | | corticalinterruption of | | | | | | the medial tibial | | | | | | articular surface | | | | | | consistent withprior | | | | | | surgical intervention | | | | | | and/or traumatic injury. | | | | | | No acutefracture or | | | | | | focal destruction. | | | | | | Osteopenia. Attending | | | | | | Radiologists: Bibi Medina | | | | | | Thiago TongAuthor: | | | | | | LAURA QUINTERO MD I | | | | | | have personally viewed | | | | | | this procedure/exam, | | | | | | reviewed this report,and | | | | | | made changes to it | | | | | | where appropriate. | | | | | | Final/Electronically | | | | | | signed / Bibi Medina | | | | | | Alycia 08/07/2012 | | | | | | 11:31AM Pending final | | | | | | approval / LAURA | | | | | | LEON 08/06/2012 | | | | | | 15:08 PM Preliminary / | | | | | | LAURA QUINTERO | | | | | | 08/06/2012 13:39 PM | | | | + + + [...] + | Diagnosis | + + | Leg pain Pain in limb | + + documented in this encounter"
--- OUTSIDE RECORDS SUMMARY | ~2019-12-16 | XMS | Encounter Summary ---
Demographics + + + | Address | [address] | | | [place] [address] | + + + | Home Phone | | + + + | Preferred Language | Unknown | + + + | Marital Status | Single | + + + | Samaritan Affiliation | LUT | + + + | Race | White | + + + | Ethnic Group | Not or | + + + Author + + + | Author | [facility] | + + + | Organization | [facility] | + + + | Address | Unknown | + + + | Phone | Unavailable | + + + Support + + + + + | Name | Relationship | Address | Phone | + + + + + | Grsiel Marc | ECON | [address] | | | | | [place] | | | | | [address] | | + + + + + Care Team Providers + +------+ + | Care Broadloom Weaver Name | Role | Phone | + +------+ + | Adilia BobP | PCP | | + +------+ + Reason for Visit + + + | Reason | Comments | + + + | Skin rash | | + + + Encounter Details +--------+ + + + + | Date | Type | Department | Care Team | Description | +--------+ + + + + | 07/14/ | Telephone | Infectious | Lavinia Peck, | Skin rash | | 2012 | | [facility] | MD [address] | | | | | [address] | [address] | | | | | [address] Physician's | [place] [address] | | | | | [place], [address] floor | [phone] | | | | | [place], [place] | | | | | | [address] | | | | | | [phone] | | | +--------+ + + + [...]
--- OUTSIDE RECORDS SUMMARY | ~2019-12-16 | XMS | Encounter Summary ---
Demographics + + + | Address | [address] | | | [place] [address] | + + + | Home Phone | | + + + | Preferred Language | Unknown | + + + | Marital Status | Single | + + + | Scientologist Affiliation | LUT | + + + | Race | White | + + + | Ethnic Group | Not or | + + + Author + + + | Author | [facility] | + + + | Organization | [facility] | + + + | Address | Unknown | + + + | Phone | Unavailable | + + + Support + + + + + | Name | Relationship | Address | Phone | + + + + + | Grisel Marc | ECON | [address] | | | | | [place] | | | | | [address] | | + + + + + Care Team Providers + +------+ + | Care Enrober Name | Role | Phone | + +------+ + | Hina Peterson | PCP | | + +------+ + Reason for Visit + + + | Reason | Comments | + + + | Prior Authorization | Rt Knee MRI Exam | | Request - Imaging | | + + + Encounter Details +--------+ + + + + | Date | Type | Department | Care Team | Description | +--------+ + + + + | 02/07/ | Telephone | [facility] | Mars Nicolas, | Prior Authorization | | 2016 | | Sports Medicine & | MD Selene Foy | Request - Imaging | | | | Orthopaedic Surgery | [address] [place] | (Rt Knee MRI Exam) | | | | [address] | [address] | | | | | [address] | [phone] | | | | | [place] | | | | | | [address] | | | | | | [phone] | | | +--------+ + + + + Social History + + [...]
--- OUTSIDE RECORDS SUMMARY | ~2019-12-16 | XMS | Encounter Summary ---
Demographics + + + | Address | [address] | | | [place] [address] | + + + | Home Phone | | + + + | Preferred Language | Unknown | + + + | Marital Status | Single | + + + | Mosque Affiliation | LUT | + + + [...] [place] | | | | | [address] | | + + + + + Care Team Providers + +------+ + | Care Home Health Specialist Name | Role | Phone | + [...] | +--------+ + + + + | 07/16/ | Telephone | Infectious | Lavinia Peck, | Skin rash | | 2012 | | [facility] | MD [address] | | | | | [address] | [address] | | | | | [address] Physician's | [place] [address] | | | | | [place], [address] floor | [phone] | | | | | [place], [place] | | | | | | [address] | | | | | | [phone] | | | +--------+ + + + [...]
--- OUTSIDE RECORDS SUMMARY | ~2019-12-16 | XMS | Encounter Summary ---
Demographics + + + | Address | [address] | | | [place] [address] | + + + | Home Phone [...] Author + + + | Author | [facility] | + + + | Organization | [facility] | + + + | Address | Unknown | + + + | Phone | Unavailable | + + + Support + + + + + | Name | Relationship | Address | Phone | + + + + + | Grisel Marc | ECON | [address] | | | | | [place] | | | | | [address] | | + + + + + Care Team Providers + +------+ + | Care Applique Sewer Name | Role | Phone | + +------+ + | Adilia BobP | PCP | | + +------+ + Encounter Details +--------+ + + + + | Date | Type | Department | Care Team | Description | +--------+ + + + + | 09/14/ | Abstract | Infectious | rBigid Hardy | | | 2012 | | [facility] | [facility] | | | | | [address] | | | | | | [address] | | | | | | [place], [address] floor | | | | | | [place], [place] | | | | | | [address] | | | | | | [phone] | | | +--------+ + + + [...] + | CBC, WITH | Routin | 09/14/2012 | | Results for this | | DIFFERENTIAL | e | 7:35 AM | | procedure are in the | | | | PST | | results section. | + +--------+ + + + | COMPLETE METABOLIC | Routin | 09/14/2012 | | Results for this | | SET | e | 7:35 AM | | procedure are in the | | (NA,K,CL,CO2,BUN,CRE | | PST | | results section. | | AT,GLUC,CA,AST,ALT,B | | | | | | JENNIFER TOTAL,ALK | | | | | | PHOS,ALB,PROT TOTAL) | | | | | + +--------+ + + + documented in this encounter Results CBC, WITH DIFFERENTIAL (09/14/2012 7:35 AM PST) + +---------+ + + + | Component | Value | Ref Range | Performed | Pathologist | | | | | At | Signature | + +---------+ + + + | WHITE CELL | 9 | K/cu mm | NON [facility] | | | COUNT | | | LAB | | + +---------+ + + + | RED CELL | 3.4 | M/cu mm | [facility] | | | COUNT | | | LAB | | + +---------+ + + + | HEMOGLOBIN | 9.8 (A) | 12.1998 - | NON [facility] | | | | | g/dL | LAB | | + +---------+ + + + | HEMATOCRIT | 30.2 | % | NON [facility] | | | | | | LAB | | + +---------+ + + + | MCV | 88.2 | fL | NON [facility] | | | | | | LAB | | + +---------+ + + + | MCH | 28.5 | pg | NON [facility] | | | | | | LAB | | + +---------+ + + + | MCHC | 32.3 | g/dL | NON [facility] | | | | | | LAB | | + +---------+ + + + | PLATELET | 427 | K/cu mm | NON [facility] | | | COUNT | | | LAB | | + +---------+ + + + | NEUTROPHIL | 52.3 | % | NON [facility] | | | % | | | LAB | | + +---------+ + + + | LYMPHOCYTE | 31.4 | % | NON [facility] | | | % | | | LAB | | + +---------+ + + + | MONOCYTE % | 7.9 | % | NON [facility] | | | | | | LAB | | + +---------+ + + + | EOS % | 7.2 | % | NON [facility] | | | | | | LAB | | + +---------+ + + + | BASO % | 1.3 | % | NON [facility] | | | | | | LAB | | + +---------+ + + + | RDW | 14.4 | % | NON [facility] | | | | | | LAB | | + +---------+ + + + | MPV | | fL | NON [facility] | | | | | | LAB | | + +---------+ + + + | NEUTROPHIL | 4.7 | K/cu mm | NON [facility] | | | # | | | LAB | | + +---------+ + + + | LYMPHOCYTE | 2.8 | K/cu mm | [facility] | | | # | | | LAB | | + +---------+ + + + | MONOCYTE # | 0.7 | K/cu mm | [facility] | [...] + + + | ESR (SED | 40 | | NON [facility] | | | [...] COMPLETE METABOLIC SET (NA,K,CL,CO2,BUN,CREAT,GLUC,CA,AST,ALT,BILI TOTAL,ALK PHOS,ALB,PROT TOTAL) (09/14/2012 7:35 AM PST) + +-------+ + + + | Component | Value | Ref Range | Performed | Pathologist | | | | | At | Signature | + +-------+ + + + | GLUCOSE, | 96 | 65 - 110 mg/dL | NON [facility] | | | PLASMA | | | LAB | | | (LAB) | | | | | + +-------+ + + + | BUN, PLASMA | 15 | mg/dL | NON [facility] | | | (LAB) | | | LAB | | + +-------+ + + + | CREATININE | 0.69 | mg/dL | NON [facility] | | | PLASMA | | | LAB | | | (LAB) | | | | | + +-------+ + + + | TOTAL | 6.7 | g/dL | NON [facility] | | | PROTEIN, | | | LAB | | | PLASMA | | | | | | (LAB) | | | | | + +-------+ + + + | ALBUMIN, | 3.7 | g/dL | NON [facility] | | | PLASMA | | | LAB | | | (LAB) | | | | | + +-------+ + + + | CALCIUM, | 9 | mg/dL | NON [facility] | | | PLASMA | | | LAB | | | (LAB) | | | | | + +-------+ + + + | BILIRUBIN | 0.3 | Transcutaneous | NON [facility] | | | TOTAL | | Bilirubinometer | LAB | | + +-------+ + + + | ALK PHOS | 62 | U/L | NON [facility] | | | | | | LAB | | + +-------+ + + + | AST(SGOT) | 16 | U/L | NON [facility] | | | | | | LAB | | + +-------+ + + + | SODIUM, | 140 | mmol/L | NON [facility] | | | PLASMA | | | LAB | | | (LAB) | | | | | + +-------+ + + + | POTASSIUM, | 3.5 | mmol/L | NON [facility] | | | PLASMA | | | LAB | | | (LAB) | | | | | + +-------+ + + + | CHLORIDE, | 108 | mmol/L | NON [facility] | | | PLASMA | | | LAB | | | (LAB) | | | | | + +-------+ + + + | TOTAL CO2, | 24 | mmol/L | NON [facility] | | | PLASMA | | | LAB | | | (LAB) | | | | | + +-------+ + + + | ALT (SGPT) | 14 | U/L | NON [facility] | | | | | | LAB | | + +-------+ + + + | VANCOMYCIN, | <0.2 | ug/mL | NON [facility] | | | TROUGH | | | LAB | | + +-------+ + + + | C-REACTIVE | 3.2 | mg/dl | NON [facility] | | [...]
--- OUTSIDE RECORDS SUMMARY | ~2019-12-16 | XMS | Encounter Summary ---
Demographics + + + | Address | [address] | | | [place] [address] | + + + | Home Phone | | + + + | Preferred Language | Unknown | + + + | Marital Status | Single | + + + | Jain Affiliation | LUT | + + + | Race | White | + + + | Ethnic Group | Not or | + + + Author + + + | Author | [facility] | + + + | Organization | [facility] | + + + | Address | Unknown | + + + | Phone | Unavailable | + + + Support + + + + + | Name | Relationship | Address | Phone | + + + + + | Grisel Marc | ECON | [address] | | | | | [place] | | | | | [address] | | + + + + + Care Team Providers + +------+ + | Care Online Affiliate Marketing Manager Name | Role | Phone | + +------+ + | Hina Peterson | PCP | | + +------+ + Reason for Visit + + + | Reason | Comments | + + + | Follow-up visit | Left knee pain | + + + Encounter Details +--------+---------+ + + + | Date | Type | Department | Care Team | Description | +--------+---------+ + + + | 06/18/ | Office | [facility] | Cami Blue, | Left knee pain, | | 2019 | Visit | Sports Medicine & | [facility] [address] | unspecified | | | | Orthopaedic Surgery | Blvd [place], [place] | chronicity (Primary | | | | [address] | [address] | Dx); Tears of | | | | [place], [place] | [phone] | meniscus and | | | | [address] | | anterior cruciate | | | | [phone] | | ligament of left | | | | | | knee, initial | | | | | | encounter; Articular | | | | | | cartilage disorder | +--------+---------+ + + + Social History [...] + + documented as of this encounter Patient Instructions Patient Instructions Terrence Condon - 06/18/2019 10:30 AM PSTCall in 1 month with up date Limit activities that increase painElectronically signed by Terrence Condon at 019 10:46 AM PST documented in this encounter Progress Notes Cami Blue PA-C - 06/18/2019 10:30 AM PSTChief Complaint: Left knee pain HPI: Sandy Marc is a 28 y.o. female from [place] who presents to the office today for evaluation of left knee pain. She reports injuring her knee on 05/29/19. She reports injuri ng her knee when she hyperextend the knee while walking. She noticed pain and swelling foll owing the injury. She was able to weightbear with discomfort. She went to the ER where x-r ays were taken and was referred here for follow-up. The patient has a history of extensive k nee surgeries and injury to the left leg in 2011 and 2012. She had a prior ORIF of tibial p lateau fracture. She did develop infection postop and osteomyelitis. Hardware was removed. She has known history of probable ACL tear and cartilage disorder. She does wear a function al ACL brace which helps with some symptoms. However she does have persistent instability in the knee, daily, despite brace use. She was first seen in the office on 06/04/19. Her clinical history and physical exam are co nsistent with left knee instability. She was continued in her ACL brace. She was referred fo r an MRI in [place] to evaluate this further. Her MRI description is below. She returns to the office today in routine follow up. Overall, the patient feels unchanged. Current pain is 5/10 and is characterized as sharp, dull, aching, throbbing and constant. Symptoms are unchanged. The pain does wake the shaina ent at night. It is associated with swelling and weakness. Symptoms are aggravated by nallely ding, walking, stairs, squatting, kneeling, twisting, bending, sitting, exercise and lifting , and improve with rest and elevation. She is using no medications for the pain. Review of Systems: Completed and reviewed with patient per patient intake form. Pertinent positives noted in HPI. See scanned document in media section for reference. No general, systemic or constitu tional issues. Denies chest pain or shortness of breath. Denies fever or chills. No skin a brasions / lesions except as noted. Physical Exam: There were no vitals taken for this visit. General/Constitutional: Well developed, well nourished female, alert and oriented, and in no acute distress. Left knee: Inspection: Well-healed scars from prior surgery. Palpation: Tender over medial and lateral joint line and popliteal fossa, biceps femoris t endon Range of motion: 5-110 degrees. Strength: Good quadriceps contracture. Stability: Stable on varus/valgus stress examination. Positive drawer and Lisbeth's Special tests: Pain with medial and lateral Sotero's Diagnostic Imaging: X-ray examination 06/04/19 demonstrates Feliberto changes and mild medial joint space narr owing. There are sclerotic changes noted tibial and femur MRI left knee from [facility] in [place] demonstrates Chronic ACL tear and medial join t space degenerative changes/cartilage loss, subchondral bone cystic changes Assessment: Left knee chronic ACL , meniscus tear and medial cartilage loss Status post ORIF tibial plateau, osteomyelitis Status post hardware removal Plan: Reviewed MRI in detail. Her symptoms are improving. Recommend continuation of functional AC L brace. 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 Gisselle connolly was doing well until recent hyperextension injury. We reviewed detail of MRI including ACL tear, medial meniscus tear and medial cartilage loss. Risks of ACL reconstruction include i nfection and potentially continued pain/worsening of medial compartment arthritis. I will re view case with Dr Saba. Can potentially refer to [facility] if she is interested in ACL recon. Follow up: w/ Jayant Blue PA-C [facility] Orthopaedic Physician Aperture Mask Etcher [facility] [address] [place] [address] Office: [phone] documented in this e ncounter Plan of Treatment Not on filedocumented as of this encounter Visit Diagnoses + + | Diagnosis | + + | Left knee pain, unspecified chronicity - Primary | + + | Tears of meniscus and anterior cruciate ligament of left knee, initial encounter | + + | Articular cartilage disorder | + + documented in this encounter"
--- OUTSIDE RECORDS SUMMARY | ~2019-12-16 | XMS | Encounter Summary ---
Demographics + + + | Address | [address] | | | [place] [address] | + + + | Home Phone [...] [place] | | | | | [address] | | + + + + + Care Team Providers + +------+ + | Care Beater Machine Operator Name | Role | Phone | + +------+ + | Adilia Bob | PCP | | + +------+ + Reason for Visit Office Visit - E/M Services (Routine) +--------+--------+ + + + + | Status | Reason | Specialty | Diagnoses / | Referred By | Referred To | | | | | Procedures | Contact | Contact | +--------+--------+ + + + + | Closed | | Infectious | | Lisbeth | Hayley, | | | | Disease | | SA[facility] Viveros | ADRIEN Epperson | | | | | | Family | [address] | | | | | | Health | [facility] | | | | | | Associates | Rd | | | | | | [address] | [place], [place] | | | | | | [address], [address] | [address] | | | | | | [place], | | | | | | | [place] [address] | | | | | | | Phone: | | | | | | | [phone] | | | | | | | Fax: | | | | | | | [phone] | | +--------+--------+ + + + + Encounter Details +--------+---------+ + + + | Date | Type | Department | Care Team | Description | +--------+---------+ + + + | 12/08/ | Office | Infectious | Zoey Peck, | Osteomyelitis of | | 2012 | Visit | [facility] | MD [address] | knee region (HCC) | | | | [address] | (Primary Dx) | | | | [address] | [place] [address] | | | | | [place], [address]rd floor | [phone] | | | | | [facility] [place] | | | | | | [address] | | | | | | [phone] | | | +--------+---------+ + + + Social History + +-------+ [...] documented as of this encounter Progress Notes Zoey Peck MD - 12/08/2012 8:53 AM PDTFormatting of this note might be different fr om the original. INFECTIOUS DISEASES CLINIC FOLLOW UP Referrring Physician: Alton Hernandez MD [address] [facility] [address] Primary Care Physician: [facility] [address], [address] [place] [address] Ms. Marc presents to Infectious Diseases Clinic regarding scheduled follow up. History other than "Interim History" below is directly copied from previous ID notes to darya mcdonough. In addition I reviewed the history from the patient's [facility] admiss ion, including but not limited to all pertinent ID consultation notes, surgical procedures & findings, culture results & lab tests, pathology reports, case management notes, and the spital discharge summary. Sandy Marc is a 22 y.o. female a couple of weeks of knee pain in November 2011 and en was doing rodeo on her horse going around barrels, and she was leaning out away from the barrels. Her legs spontaneously broke with pathological fracture. She had a tibial plateau f racture. This was mended with a screw and cement. However, the wounds then never healed and drained. She has subsequently had surgery. She had the first surgery on December 09, January 09, and t April 14 was the last one. Group B strep and MSSA have grown out of it in the past, b ut we will need to confirm this. Since that time intermittently spits out pieces of calcium. She has no systemic symptoms of this. No fevers, chills, or sweats, and she is otherwise we ll. She gives no history of excessive infections as a child, however, did have some sinus in fections. She does have unprotected sex and uses an IUD for contraception but has apparently not been using condoms. She had an HIV test which was negative. She was admitted for surger y and underwent the procedure below on 09/02/2012. She grew out . / Staphylococcus aureus Cefazolin S Clindamycin S Erythroycin S Oxacillin S Penicillin R Trimethoprim/Sulfa S Tetracycline S Vancomycin S 3/6 Coagulase negative Staphylococcus species Cefazolin S Clindamycin S Erythroycin S Oxaci llin S Trimethoprim/Sulfa S Tetracycline S Vancomycin S 3/6 Coagulase negative Staphylococcus species Cefazolin R Clindamycin R Erythroycin R Oxaci llin R Trimethoprim/Sulfa S Tetracycline S Vancomycin S n addition to ceftriaxone was started on Vancomycin with plans to de-escalate therapy once final culture data was obtained. Relevant Radiology: 09/02/2012: 1. Aspiration left knee for culture. 2. Arthroscopic synovial biopsy left knee w ith anterior horn partial medial menisectomy and medial tibial plateau chondroplasty. 3. I&D left tibia including reaming of intramedullary canal, placement of antibiotic beads 09/03/2012: HIRAM Silva [facility] Operative Findings: There were no gross findings of purulence in the joint. There was, however, grossly inflam ed synovium present in the suprapatellar pouch as well as the medial and lateral gutter of t he knee. TWe performed a debridement and biopsy of the inflamed synovium We made an elliptic al incision to excise the previous draining sinus tract on the anterior proximal leg. We al so found that deeper in our tibial tunnel, there was fluid draining from the intramedullary canal and so we therefore entered the intramedullary canal and found a large amount of turbi d fluid present, which was again sent to culture. As the calcium phosphate cement and the dr aining tract appear to communicate with the intramedullary canal, we decided at this time th at we needed to perform a thorough reaming of the intramedullary canal both distally and pro ximally from our cortical window. we proceeded to place antibiotic beads in the proximal tib ial tunnel as well as somewhat down the intramedullary canal. These were antibiotic beads th at were impregnated with 2 g of vancomycin as well as 2.5 g of tobramycin. Surgical Pathology: A. Left knee synovium, superior patellar pouch, frozen section biopsy: - Dense fibroconnective tissue with no diagnostic abnormality - Negative for malignancy B. Specimen not received in surgical pathology C. Anterior horn medial meniscus tear, biopsy: - Synovium and fibroconnective tissue with no diagnostic abnormality - Negative for dysplasia She was discharged on IV vancomcyin to home History obtained 09/17/2012: Sandy presents for her scheduled follow up. She has been doing well. She was switched from Vanco to Dapto two weeks ago because of a concern that she was having side effects like kar st discomfort and shortness of breath. She was seen in the ER in [place] and had a CT Thor ax that was negative for PE. She was given a test dose of Daptomycin in the ER and tolerated it well. She's been having some significant itching from the tape on her PICC dressing. She 's needed to have her dressing changed at least twice a week because of sweating and itching . She's also noted her left leg has been itching as well. She has some noticeable skin excor iation on her arm and on her leg. She's noted a few times in the last week where she feels l nery she's had "hot flashes". They happen every few days and sometimes at night. She's not rodriguez d any recorded temperatures per her mom who is here with her. She's noted some blood tinged drainage from the mid portion of her wound. There is a little separation there which is not being held together by sutures. The patient has no noticeable antibiotic side effects,The patient reports no difficulties w ith the PICC line. 09/29/2012: Since her last visit, we have stopped her Daptomycin. She was having multiple issues with h er PICC dressing especially with puritis and scratching at her arm in her sleep. Her PICC li ne was removed, she was started on hydroxyzine PRN, and her antibiotics were switched to Cli ndamycin 450mg po TID. After her first dose, she had an episode of vomiting which caused her to be reluctant to take it again. She told me she's had vomiting in the past from Clindamyc in. Our oral options are limited because of her allergy profile. She was able to tolerate de creasing the dose to 150 mg po TID with a reduction in side effects. Her arm has improved wi th the removal of the PICC line and dressings but still looks excoriated. She's not had any systemic itching or rash. She still has some clear brownish drainage from her wound. Her sutures were removed during her last clinic visit to Orthopedics. She's had to change the dressing every other day or so . She's also still having some itching around her knee. The patient has no noticeable antibiotic side effectsThere have been no fevers, chills, or night sweats. History obtained 10/15/2012: Ms. Marc presents today from home accompanied by her mom. The patient has been receiving oral Clindamycin as directed without missed doses. There have been no noticeable antibiotic side effects There have been no fevers, chills, or night sweats. The patient reports no diff iculties with their vascular access device. She had some initial vomiting but her dose was a djusted and she's been tolerating it well. She is almost out of her medication. She's almost to full weight bearing. She is anxious to start riding horses again. Her x ray s today, as per review with Dr. Hernandez, look good and he is please with the bone growth th at has occurred. He's not enthusiastic about her starting to ride again. She's noticed a lum p on the medial aspect of her left bicep where her PICC was inserted. She's had multiple ult rasounds that were negative for DVT. She continues to pick at her knee wounds with some nerv ous scratching. She also describes some occasional numbness in her index finger. Her PICC line was pulled and she was transitioned to po clindamycin Interim History Ms. aMrc presents today from home. The patient has been receiving oral clindamcyin as directed without missed doses. There have been no noticeable antibiotic side effects, but rodriguez s not been great about taking it- maybe once or twice aday Wound is well healed and she is riding horses again. x-rays today show beginning of bone f ormation Current Medications: Current Outpatient Prescriptions Medication Sig albuterol 90 mcg/actuation Inhalation HFA Aerosol Inhaler Inhale 1-2 Puffs every four h ours as needed. clindamycin 300 mg Oral capsule Take 1 Cap by mouth every eight hours. levonorgestrel (MIRENA) 20 mcg/24 hr Intrauterine IUD 1 Each by Intrauterine route once . May be removed and replaced with a new unit at anytime during menstrual cycle; do not leav e any one system in place for > 5 years. Allergies: No new allergic reactions have been noted today. Amoxicillin; Latex; and Sulfa (sulfonamide antibiotics) Physical Exam: VS: There were no vitals taken for this visit. The patient was sitting comfortably at rest. Wound is well healed Diagnosis 1. 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 Encounter for long-term antibiotics Assessment/Plan Ms. Marc is doing well. However she is not taking her meds with great consistency. Have changed her today to longer acting doxy for another month I reviewed the side effects of Doxycycline. These include photosensitivity nausea and vomit ing. I asked the patient to cover up when going into the sun and to wear a hat and sunscreen . I reviewed NOT taking milk products or antacids such as TUMS close to their antibiotic dos es. I reviewed the fact that people may develop an allergy to antibiotics at any time, even 5 weeks into therapy and it is therefore important to report any new symptoms. It is recommended that Ms. Marc follow up in Infectious Diseases Clinic in 2 months I have communicated my evaluation and treatment plan from today's visit with the patient's care team including the primary care provide I spent 20 minutes in a face-to face visit with the patient, with over 50% of time spen t in councelling the patient. We discussed infection, antibiotics, duration of therapy, lab results, and follow-up planning, as described above. ZOEY PECK MD INFECTIOUS DISEASES [address] [place] [address] Mailcode: [id number] [place] [address] documented in this e ncounter Plan of Treatment Not on filedocumented as of this encounter Visit Diagnoses + + | Diagnosis | + + | Osteomyelitis of knee region (HCC) - Primary Unspecified osteomyelitis, lower leg | + + documented in this encounter
--- OUTSIDE RECORDS SUMMARY | ~2019-12-16 | XMS | Encounter Summary ---
Demographics + + + | Address | [address] | | | [place] [address] | + + + | Home Phone [...] + + + | Author | [facility] | + + + | Organization | [facility] | + + + | Address | Unknown | + + + | Phone | Unavailable | + + + Support + + + + + | Name | Relationship | Address | Phone | + + + + + | Grisel Marc | ECON | [address] | | | | | [place] | | | | | [address] | | + + + + + Care Team Providers + +------+ + | Care Berry Picker Name | Role | Phone | + [...] | | | | | Health | [facility] | | | | | | Associates | Rd | | | | | | [address] | [place], [place] | | | | | | [address], [address] | [address] | | | | | | [place], | | | | | | | [place] [address] | | | | | | | Phone: | | | | | | | [phone] | | | | | | | Fax: | | | | | | | [phone] | | +--------+--------+ + + + + [...] | | | | [address] [facility] | [place] [address] | | | | | [address], [address]rd floor | [phone] | | | | | [facility] [place] | | | | | | [address] | | | | | | [phone] | | | +--------+---------+ + + + [...] FOLLOW UP Referrring Physician: Alton Hernandez MD [address] [place] [address] Primary Care Physician: [facility] [address], [address] [place] [address] Ms. Marc presents to Infectious Diseases Clinic regarding scheduled follow up. History other than "Interim History" below is directly copied from previous ID notes to darya mcdonough. In addition I reviewed the history from the patient's [facility] admiss ion, including but not limited to [...] placement of antibiotic beads 09/03/2012: HIRAM Silva [facility] Operative Findings: There were no gross [...] She was seen in the ER in [place] and had a CT Thor ax that [...] transitioned to po clindamycin Interim History Ms. Marc presents today from home. The patient has [...] described above. ZOEY PECK MD INFECTIOUS DISEASES [address] [place] [address] Mailcode: [address] [place] [address] documented in this e ncounter Plan of Treatment Not on filedocumented as of this encounter Visit Diagnoses + + | Diagnosis | + + | Osteomyelitis of knee region (HCC) - Primary Unspecified osteomyelitis, lower leg | + + documented in this encounter
--- OUTSIDE RECORDS SUMMARY | ~2019-12-16 | XMS | Encounter Summary ---
Demographics + + + | Address | [address] | | | [place] [address] | + + + | Home Phone | | + + + | Preferred Language | Unknown | + + + | Marital Status | Single | + + + | Church Affiliation | LUT | + + + | Race | White | + + + | Ethnic Group | Not or | + + + Author + + + | Author | [facility] | + + + | Organization | [facility] | + + + | Address | Unknown | + + + | Phone | Unavailable | + + + Support + + + + + | Name | Relationship | Address | Phone | + + + + + | Grisel Marc | ECON | [address] | | | | | [place] | | | | | [address] | | + + + + + Care Team Providers + +------+ + | Care Block Making Machine Operator Name | Role | Phone | + +------+ + | Hina Peterson | PCP | | + +------+ + Encounter Details +--------+ + + + + | Date | Type | Department | Care Team | Description | +--------+ + + + + | 12/14/ | Document-Sc | [facility] | Mars Nicolas, | | | 2016 | anned | Sports Medicine & | MD Selene Foy | | | | | Orthopaedic Surgery | [place] | | | | | [place] | [address] | | | | | [address] | [phone] | | | | | [place] | | | | | | [address] | | | | | | [phone] | | | +--------+ + + + [...]
--- OUTSIDE RECORDS SUMMARY | ~2019-12-16 | XMS | Encounter Summary ---
Demographics + + + | Address | [address] | | | [place] [address] | + + + | Home Phone | | + + + | Preferred Language | Unknown | + + + | Marital Status | Single | + + + | Gnosticism Affiliation | LUT | + + + | Race | White | + + + | Ethnic Group | Not or | + + + Author + + + | Author | [facility] | + + + | Organization | [facility] | + + + | Address | Unknown | + + + | Phone | Unavailable | + + + Support + + + + + | Name | Relationship | Address | Phone | + + + + + | Grisel Marc | ECON | [address] | | | | | [place] | | | | | [address] | | + + + + + Care Team Providers + +------+ + | Care Food Service Driver Name | Role | Phone | + +------+ + | Adilia BobP | PCP | | + +------+ + Reason for Visit + + + | Reason | Comments | + + + | Medication | | | management | | + + + Consultation (Routine) +--------+--------+ + + + + | Status | Reason | Specialty | Diagnoses / | Referred By | Referred To | | | | | Procedures | Contact | Contact | +--------+--------+ + + + + | Closed | | Infectious | Diagnoses | [place], | Peck, | | | | 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) ([facility]) | Rd | [address] | | | | | Septic | [place], [place] | [place], | | | | | 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[address] | [place] [address] | | | | | knee, left | | Phone: | | | | | ([facility]) | | [phone] | | | | | Procedures | | Fax: | | | | | CONSULT TO | | [phone] | | | | | INFECTIOUS | | | | | | | DISEASE | | | +--------+--------+ + + + + Encounter Details +--------+---------+ + + + | Date | Type | Department | Care Team | Description | +--------+---------+ + + + | 10/15/ | Office | Infectious | Brigid Hardy | Osteomyelitis of | | 2012 | Visit | [facility] at [facility] | [place], [place] | knee region (HCC) | | | | [address] | | (Primary Dx); | | | | [address] [facility] | | Encounter for | | | | [address], 3rd floor | | long-term (current) | | | | [place], [place] | | use of antibiotics | | | | [address] | | | | | | [phone] | | | +--------+---------+ + + + [...] documented as of this encounter Progress Notes Brigid Antoine - 10/15/2012 3:48 PM PST INFECTIOUS DISEASES CLINIC FOLLOW UP Primary Care Physician: [facility] [address], [address] [place] [address] Ms. Marc presents to Infectious Diseases Clinic regarding scheduled follow up. The patient was seen in conjunction with Dr. Alton Hernandez today. The following history was obtained prior to today's OPAT visit from my own review of the bethany perez's recent [facility] hospital admission, including but not limited to all pertinent ID consul tation notes, surgical procedures & findings, culture results & lab tests, pathology reports , case management notes, and the hospital discharge summary: History, other than "Interim History" below, is directly copied from previous ID notes to timmy mendoza continuity: This delightful 21-year-old young lady had a couple of weeks of knee pain in November 2011 and then was doing rodeo on her horse going around [employer], and she was leaning out away from [employer]. Her legs spontaneously broke with pathological fracture. She had a tibial platea u fracture. This was mended with a screw and cement. However, the wounds then never healed a nd drained. She has subsequently had surgery. She had the first surgery on December 09January 09, an d then April 14 was the last one. Apparently, group B strep and MSSA have grown out of it in the past, but we will need to confirm this. Since that time intermittently spits out pie mahendra of calcium. She has no systemic symptoms of this. No fevers, chills, or sweats, and she is otherwise well. She gives no history of excessive infections as a child, however, did rodriguez ve some sinus infections. She does have unprotected sex and uses an IUD for contraception bu t has apparently not been using condoms. She had an HIV test which was negative. She was ad mitted for surgery and underwent the procedure below on 09/02/2012. She grew out GPC's on gra m stain and in addition to ceftriaxone was started on Vancomycin with plans to de-escalate t herapy once final culture data is obtained. Relevant Radiology: 08/24/2012 MRI KNEE: Postsurgical changes of open reduction internal fixation of a medial ti bial plateau fracture with proximal tibial bone cement. Irregular proximal medial tibial bon e marrow T2 signal abnormality and enhancement are stable, likely representing a combination of sequela from prior fracture and surgery with superimposed chronic/treated osteomyelitis. No evidence for progression is seen when compared to the prior study. There is no new osseo us or joint centered destruction and no soft tissue abscess. Decreased left knee synovitis. Near complete resolution of previously seen curvilinear lateral femoral condyle bone marrow edema, most likely representing healing subchondral fracture. Procedure Date and Type: 09/02/2012: 1. Aspiration left knee for culture. 2. Arthroscopic synovial biopsy left knee w ith anterior horn partial medial menisectomy and medial tibial plateau chondroplasty. 3. I&D left tibia including reaming of intramedullary canal, placement of antibiotic beads 09/03/2012: HIRAM Silva [facility] Operative Findings: We began by performing a diagnostic arthroscopy of the left knee. We made a lateral poke ho le incision to allow our scope to pass through into the joint and performed our diagnostic a rthroscopy. There were no gross findings of purulence in the joint. There was, however, yan sly inflamed synovium present in the suprapatellar pouch as well as the medial and lateral g utter of the knee. There was a partial tear of the anterior horn of the lateral meniscus, wh ich also appeared to have some inflamed synovium around it. We performed a debridement and b iopsy of the inflamed synovium and sent for pathology. We also proceeded to perform a partia l debridement of the meniscus in this area. We then closed the incisions from the knee arthroscopy and turned our attention to the tibi a. We made an elliptical incision to excise the previous draining sinus tract on the anterio r proximal leg. We subsequently made a cortical window that we pinpointed using fluoroscopy over the previous site that had been opened to pass the calcium phosphate cement. We then pr oceeded to cure out the previous tibial tunnel that had been used to tamp up the tibial plat eau with calcium phosphate cement. We used rongeurs and curettes to thoroughly debride this tibial tunnel as it track proximally toward the plateau. A large amount of calcium phosphate cement was removed in this fashion and several specimens were sent for culture and one to P athology. We also found that deeper in our tibial tunnel, there was fluid draining from the intramedullary canal and so we therefore entered the intramedullary canal and found a large amount of turbid fluid present, which was again sent to culture. As the calcium phosphate ce ment and the draining tract appear to communicate with the intramedullary canal, we decided at this time that we needed to perform a thorough reaming of the intramedullary canal both distally and proximally from our cortical window. We therefore used our flexible reamers to sequentially ream up proximally and distally down the intramedullary canal. We then used our canal licensed staff mft to thoroughly washout the intramedullary canal as well as our tibial wound. Once this had been completed, we proceeded to place antibiotic beads in the proximal tibial tunnel as well as somewhat down the intramedullary canal. These were antibiotic beads that were impregnated with 2 g of vancomycin as well as 2.5 g of tobramycin. At this time, we als o gave 2 g of Rocephin, which had previously been held as indicated by Dr. Peck with Infec tious Disease. Once we had placed the antibiotic beads, we proceeded to close our incision i n a layered fashion using a 2-0 Vicryl stitch as well as 3-0 nylon on the skin. The wound w as dressed in the usual fashion with Xeroform, 4 x 4's, sterile Webril, and an Horacio wrap. Surgical Pathology: A. Left knee synovium, superior patellar pouch, frozen section biopsy: - Dense fibroconnective tissue with no diagnostic abnormality - Negative for malignancy B. Specimen not received in surgical pathology C. Anterior horn medial meniscus tear, biopsy: - Synovium and fibroconnective tissue with no diagnostic abnormality - Negative for dysplasia Culture Data: CULTURE RESULT (no units) Date Value Range [...] Final SMEAR: AFB not detected source: left sinovium, left knee superior patellar pouch CULTURE RESULT: No acid fast bacteria isolated at 6 weeks. 09/02/2012 Final Value: C Fungus, Other Source: Tissue Final SMEAR: No fungal elements seen CULTURE RESULT: No fungus isolated at 3 weeks. 09/02/2012 Final Value: C Tissue Source: Tissue Final GRAM STAIN: No squamous epithelial cells No PMNS No organisms seen. CULTURE RESULT: Rare Micrococcus species No Propionibacterium isolated No anaerobic organisms isolated. 09/02/2012 Final Value: C AFB Source: Tissue Final SMEAR: AFB not detected source: 2) left anterior horn, medial meniscus tear CULTURE RESULT: No acid fast bacteria isolated at 6 weeks. 09/02/2012 Final Value: C Fungus, Other Source: Tissue Final SMEAR: No fungal elements seen CULTURE RESULT: No fungus isolated at 3 weeks. 09/02/2012 Final Value: C Tissue Source: Tissue [...] S 09/02/2012 Final Value: C AFB Source: Sputum Final SMEAR: AFB not detected source: 3) left sinus tract, left proximal tibia CULTURE RESULT: No acid fast bacteria isolated at 6 weeks. 09/02/2012 Final Value: C Fungus, Other Source: Tissue Final SMEAR: No fungal elements seen CULTURE RESULT: No fungus isolated at 3 weeks. 09/02/2012 Final Value: C Tissue Source: Tissue [...] RESULT: Specimen heavily contaminated. Culture discontinued. 09/02/2012 Final Value: C Fungus, Other Source: Tissue Final SMEAR: No fungal elements seen CULTURE RESULT: No fungus isolated at 3 weeks. 09/02/2012 Final Value: C Tissue Source: Tissue Final GRAM STAIN: No squamous epithelial cells Rare PMNS Rare Gram positive cocci . CULTURE RESULT: Rare Staphylococcus aureus 2+ Coagulase negative Staphylococcus species 3+ Corynebacterium species not C. jeikeium Presumptive [...] RESULT: Specimen heavily contaminated. Culture discontinued. 09/02/2012 Final Value: C Fungus, Other Source: Tissue Final SMEAR: No fungal elements seen CULTURE RESULT: No fungus isolated at 3 weeks. 09/02/2012 Final Value: C Tissue Source: Tissue [...] RESULT: Specimen heavily contaminated. Culture discontinued. 09/02/2012 Final Value: C Fungus, Other Source: Tissue Final SMEAR: No fungal elements seen CULTURE RESULT: No fungus isolated at 3 weeks. 09/02/2012 Final Value: C Tissue Source: Tissue [...] source: left retained calcium left tibia #7 CULTURE RESULT: No acid fast bacteria isolated at 6 weeks. 09/02/2012 Final Value: C Fungus, Other Source: Tissue Final SMEAR: No fungal elements seen CULTURE RESULT: No fungus isolated at 3 weeks. 09/02/2012 Final Value: C Tissue Source: Tissue [...] source: left retained calcium left tibia #8 CULTURE RESULT: No acid fast bacteria isolated at 6 weeks. 09/02/2012 Final Value: C Fungus, Other Source: Tissue Final SMEAR: No fungal elements seen CULTURE RESULT: No fungus isolated at 3 weeks. 09/02/2012 Final Value: C Tissue Source: Tissue Final GRAM STAIN: No squamous epithelial cells No PMNS No organisms seen. CULTURE RESULT: Rare Corynebacterium species not C. jeikeium Presumptive identification Refer to culture collected 09/02/12 at 16:30 site 6 for complete identification No Propionibacterium isolated No anaerobic organisms isolated. 09/02/2012 Final Value: C Fungus, Other Source: Tissue Final SMEAR: No fungal elements seen CULTURE RESULT: No fungus isolated at 3 weeks. 09/02/2012 Final Value: C AFB Source: Tissue Final SMEAR: AFB not detected source: left retained calcium left tibia #9 CULTURE RESULT: No acid fast bacteria isolated at 6 weeks. 09/02/2012 Final Value: C Tissue Source: Tissue Final GRAM STAIN: No squamous epithelial cells No PMNS No organisms seen. CULTURE RESULT: No growth to date Culture examined daily Report will be updated if growth occurs No Propionibacterium isolated No anaerobic organisms isolated. 09/02/2012 Final Value: C AFB Source: Tissue Final SMEAR: AFB not detected source: 10) left medullary canal, left tibia CULTURE RESULT: No acid fast bacteria isolated at 6 weeks. 09/02/2012 Final Value: C Fungus, Other Source: Tissue Final SMEAR: No fungal elements seen CULTURE RESULT: No fungus isolated at 3 weeks. 09/02/2012 Final Value: C Body Fluid Source: Body Fl Final CULTURE RESULT: No growth Interim History obtained 09/17/2012: Sandy presents for her scheduled follow up. She has been doing well. She was switched from Vanco to Dapto two weeks ago because of a concern that she was having side effects like kar st discomfort and shortness of breath. She was seen in the ER in [place] and had a CT Thor ax that [...] The patient has no noticeable antibiotic side effects, specifically - no headache, no visua l changes, no oral lesions, no new skin lesions or rashes, no cough, no SOB, no chest pains, no diarrhea, no abdominal pain, and no changes in urination. There have been no fevers, chi lls, or night sweats. The patient reports no difficulties with the PICC line. 09/29/2012: Since her last [...] The patient has no noticeable antibiotic side effects, specifically - no headache, no visua l changes, no oral lesions, no cough, no SOB, no chest pains, no diarrhea, no abdominal pain , and no changes in urination. There have been no fevers, chills, or night sweats. Interim History obtained 10/15/2012: Ms. Marc presents today from home accompanied by her mom. The patient has been receiving oral Clindamycin as directed without missed doses. There have been no noticeable antibiotic side effects, specifically - no headache, no visual changes, no oral lesions, no new skin le sions or rashes, no cough, no SOB, no chest pains, no diarrhea, no abdominal pain, and no ch anges in urination. There have been no fevers, chills, or night sweats. The patient reports no difficulties with their vascular access device. She had some initial vomiting but her dos e was adjusted and she's been tolerating it well. She [...] some occasional numbness in her index finger. Current Medications: Pertinent infectious disease treatment medications are bolded below an d were reviewed in clinic today by myself for patient compliance, antibiotic side effects, a nd potential antibiotic interactions with current medications. Current Outpatient Prescriptions Medication Sig albuterol 90 mcg/actuation Inhalation HFA Aerosol Inhaler Inhale 1-2 Puffs every four h ours as needed. aspirin 325 mg Oral tablet Take 1 Tab by mouth two times daily. hydrOXYzine 25 mg Oral tablet Take 1 Tab by mouth every six hours as needed for itching . levonorgestrel (MIRENA) 20 mcg/24 hr Intrauterine IUD [...] The patient was sitting comfortably at rest. There was no evidence of jaundice. There was no stigmata of infectious endocarditis HEENT was normal There was no lymphadenopathy There was no new skin or oral lesions. Wound appears well healed. There are excoriated area s around the small suture sites on the top of her knee. They do not appear infected. She has a tender spot on her left medial bicep that does not feel like a cord. There is a bump ther e that is firm and mobile. Neuro exam was grossly intact Diagnostic Tests: Recent lab results were reviewed to detect antibiotic side effects and to assess response to treatment for infection. ESR (SED RATE) (no units) Date Value 09/21/2012 25 SEDIMENTATION RATE (mm/hr) Date Value 08/06/2012 14 C-REACTIVE PROTEIN (mg/dl) Date Value 09/21/2012 3.7 Lab Results Component Value Date WBC 7.2 09/21/2012 RBC 3.6 09/21/2012 HB 10.4* 09/21/2012 HCT 32 09/21/2012 MCV 87.8 09/21/2012 MCHC 32.5 09/21/2012 RDW 13.4 09/21/2012 PLT 381 09/21/2012 NEUTROPERC 43.2 09/21/2012 LYMPHPERC 37.7 09/21/2012 MONOPERC 6.4 09/21/2012 EOSPERC 11.4 09/21/2012 BASOPERC 1.3 09/21/2012 NEUTROPHILCO 3.1 09/21/2012 MONOCYTECO 0.5 09/21/2012 EOSCO 0.8 09/21/2012 BASOPHILCO 0.1 09/21/2012 Lab Results Component Value Date NA 140 09/21/2012 K 3.7 09/21/2012 CL 108 09/21/2012 BICARB 23 09/21/2012 BUN 19 09/21/2012 CR 0.67 09/21/2012 GLU 94 09/21/2012 CA 9 09/21/2012 AST 15 09/21/2012 ALT 13 09/21/2012 AP 65 09/21/2012 TBILI 0.3 09/21/2012 TP 6.8 09/21/2012 ALB 3.7 09/21/2012 Lab Results Component Value Date CK 21 09/21/2012 Lab Results Lab Test Name Results Date/Time VANCOTROUGH <0.2 09/14/12 VANCOTROUGH 8.9 09/04/12 Assessment: tibial osteomyelitis - improving Recommendations/Plan: Ms. Marc has now completed 6 of 6 planned weeks of antibiotic therapy for treatment of Co NS tibial osteomyelitis. She has been tolerating this well without antibiotic side effects-b ut it has not been without challenges of tolerance at times. I recommended continuing with c urrent therapy to complete an additional 12 week course of treatment because of her extensiv e disease. It is recommended that Ms. Marc follow up in Infectious Diseases Clinic in 6 weeks when s he follows up with Dr. Hernandez. She should follow up with her PCP regarding her arm. I've a sked her to start using her hydroxyzine or hydrocortisone to help with her scratching. I reviewed the side effects of Clindamycin. These include increased risk of C. difficile co litis. Signs of colitis are watery diarrhea, fevers, or abdominal pain. I reviewed the silke e effects of rash, nasusea and vomiting. I reviewed the fact that people may develop an all ergy to antibiotics at any time, even 5 weeks into therapy and it is therefore important to report any new symptoms. I spent a total of 20 minutes face to face with the patient and over 50% was time spent in counseling in which we discussed infection, antibiotics, duration of therapy, lab results, a nd follow-up planning. I have communicated my evaluation and treatment plan from today's visit with the patient's care team including the primary care provider and surgeon. Brigid Hardy PA-C [facility] Department of Infectious Diseases Outpatient IV Antibiotic Therapy Clinic (OPAT) [phone] Pager ID: [phone] [place] [address] documented in this encounter Plan of Treatment Not on filedocumented as of this encounter Visit Diagnoses + + | Diagnosis | + + | Osteomyelitis of knee region (HCC) - Primary Unspecified osteomyelitis, lower leg | + + | Encounter for long-term (current) use of antibiotics | + + documented in this encounter
--- OUTSIDE RECORDS SUMMARY | ~2019-12-16 | XMS | Encounter Summary ---
Demographics + + + | Address | [address] | | | [place] [address] | + + + | Home Phone | | + + + | Preferred Language | Unknown | + + + | Marital Status | Single | + + + | Zoroastrian Affiliation | LUT | + + + [...] + | Grisel Marc | ECON | [address] | | | | | [place] | | | | | [address] | | + + + + + Care Team Providers + +------+ + | Care Stitcher Tape Controlled Machine Name | Role | Phone | + [...] | | | | Selene [place] | [address] | | | | | [place] | [phone] | | | | | [place] | | | | | | [address] | | | | | | [phone] | | | +--------+ + + + [...]
--- OUTSIDE RECORDS SUMMARY | ~2019-12-16 | XMS | Encounter Summary ---
Demographics + + + | Address | [address] | | | [place] [address] | + + + | Home Phone [...] + + + | Author | [facility] | + + + | Organization | [facility] | + + + | Address | Unknown | + + + | Phone | Unavailable | + + + Support + + + + + | Name | Relationship | Address | Phone | + + + + + | Grisel Marc | ECON | [address] | | | | | [place] | | | | | [address] | | + + + + + Care Team Providers + +------+ + | Care Wing Coverer Name | Role | Phone | + +------+ + | Hina Peetrson | PCP | | + +------+ + Reason for Visit + + + | Reason | Comments | + + + | Referral | Left Knee | + + + Encounter Details +--------+ + + + + | Date | Type | Department | Care Team | Description | +--------+ + + + + | 07/05/ | Abstract | Orthopaedics | Note, Orthopedics | Referral (Left Knee | | 2019 | | [facility] at Center | Clinic | ) | | | | for Health and | | | | | | Healing [address] | | | | | | Deborah Mailcode: | | | | | | [facility] | | | | | | Health and Healing, | | | | | | Building | | | | | | Floor [place], [place] | | | | | | [address] | | | | | | [phone] | | | +--------+ + + + [...] + documented as of this encounter Progress Mino GreerLudmila pardo - 07/05/2019 10:51 AM PSTFormatting of this [...] 2012 (has had 5 knee sx); where: [facility] Have you seen anyone for this yet? Yes, where: [facility] Do you have a referring provider? yes who: Tong Saba MD Directed referral?: yes - Dr. Rodriguez X-Ray Yes, when: 06/04/19; where: [facility] MRI Yes, where: [facility] Via phone 07/05/19 Other Imaging (CT, Ultrasound, etc.) No Is this a W/C injury? no If YES, create referral and complete: .ORTWCNEWPATIENT inside referral Note: We do not accept WC under [place] as they do not pay at [place] rates. Other out of state claims will only be accepted if they agree to pay at [place] rates docume nted in writing from adjustor. Can you confirm the insurance we will be billing for this visit? Care [place] Note: If OHP, please note which type. E.g. [place], [employer], [employer], etc. ) Reminder: Please create referrals for pts with: HMO, OHP, [place], Self-Pay, W/C, TPL an d ED Post- [...] they d like to sign up for [facility] ? Don t forget to pull in CareEveryWhere Additional Comments: documented in this encounter Plan of Treatment Not on filedocumented as of this encounter Visit Diagnoses Not on filedocumented in this encounter
--- OUTSIDE RECORDS SUMMARY | ~2019-12-16 | XMS | Encounter Summary ---
Demographics + + + | Address | [address] | | | [place] [address] | + + + | Home Phone | | + + + | Preferred Language | Unknown | + + + | Marital Status | Single | + + + | Gnosticist Affiliation | LUT | + + + | Race | White | + + + | Ethnic Group | Not or | + + + Author + + + | Author | [facility] | + + + | Organization | [facility] | + + + | Address | Unknown | + + + | Phone | Unavailable | + + + Support + + + + + | Name | Relationship | Address | Phone | + + + + + | Grisel Marc | ECON | [address] | | | | | [place] | | | | | [address] | | + + + + + Care Team Providers + +------+ + | Care Cable Installation Manager Name | Role | Phone | [...] | | | Orthopaedic Surgery | [place] | | | | | [place] | [address] | | | | | [place] | [phone] | | | | | [place] | | | | | | [address] | | | | | | [phone] | | | +--------+ + + + [...]
--- OUTSIDE RECORDS SUMMARY | ~2019-12-16 | XMS | Encounter Summary ---
Demographics + + + | Address | [address] | | | [place] [address] | + + + | Home Phone | | + + + | Preferred Language | Unknown | + + + | Marital Status | Single | + + + | Advent Affiliation | LUT | + + + [...] [place] | | | | | [phone] | | + + + + + Care Team Providers + +------+ + | Care Mangle Press Catcher Name | Role | Phone | + +------+ + | Adilia BobP | PCP | | + +------+ + Reason for Visit + + + | Reason | Comments | + + + | Pre-operative | KNEE SOFT TISSUE PROCEDURES on 09/02/2012 by Alton Hernandez MD at | | evaluation | [facility] | + + + Encounter Details +--------+---------+ + + + | Date | Type | Department | Care Team | Description | +--------+---------+ + + + | 08/24/ | Office | Preoperative | Maira Zhao | Other specified | | 2012 | Visit | Medicine Clinic at | R, [facility]AC OPERATOR [address] | pre-operative | | | | [facility] 4th Floor Day | [address] | examination (Primary | | | | Stay [address] | [place], [place] | Dx); Septic | | | | [address] | [address] | arthritis of knee, | | | | Mailcode: [id number] | [phone] | left ([facility]); AVN | | | | [address] | | (avascular necrosis | | | | [address], [place] | | of bone) ([facility]); | | | | [address] | | Osteomyelitis of | | | | [phone] | | knee region ([facility]); | | | | | | Asthma | +--------+---------+ + + + Anesthesia Record + + + + + | Procedure Name | Responsible | Anesthesia Start | Anesthesia Stop Time | | | Anesthesiologist | Time | | + + + + + | IRRIGATION AND | Shakila Burgos MD | 09/02/12 1407 | 09/02/12 6425 | | DEBRIDEMENT OF LEFT | | | | | PROXIMAL TIBIAL WITH | | | | | PLACEMENT OF CASO4 | | | | | ANTIBIOTICS BEADS; | | | | | microbiology x 11 | | | | | (Left Leg) | | | | + + + + + +----+---+ + + | Da | T | Event | Comment | | te | i | | | | | m | | | | | e | | | +----+---+ + + | 01 | 1 | | | | /2 | 3 | | | | 3/ | 4 | | | | 20 | 4 | | | | 13 | | | | +----+---+ + + | | 1 | Pt. Check | Prior to anesthesia start, pt. Identified, examined, chart | | | 3 | | reviewed, PARQ held, anesthetic plan made or approved by | | | 4 | | attending anesthesiologist. NPO status confirmed as appropriate | | | 4 | | for procedure Preoperative evaluation: unchanged | +----+---+ + + | | 1 | Quick Note | Anesthesia ready. Pt needs H&P update and site marking before | | | 3 | | going back to room. | | | 4 | | | | | 4 | | | +----+---+ + + | | 1 | Eq Check | Anesthesia machine checked Equipment verified | | | 3 | | | | | 5 | | | | | 6 | | | +----+---+ + + | | 1 | An Start | | | | 4 | | | | | 0 | | | | | 7 | | | +----+---+ + + | | 1 | An Start | | | | 4 | Data | | | | 0 | | | | | 7 | | | +----+---+ + + | | 1 | Vitals | Monitors applied Vital signs checked Patient ready for anesthesia | | | 4 | Checked | | | | 1 | | | | | 1 | | | +----+---+ + + | | 1 | Std. Airway | | | | 4 | Mgt. | | | | 2 | | | | | 0 | | | +----+---+ + + | | 1 | Abx held | Abx held for Medical Reason: Contraindicated or already receiving | | | 4 | Medical or | antibiotics | | | 4 | Surgical | | | | 3 | Reason | | +----+---+ + + | | 1 | Incision | | | | 5 | | | | | 0 | | | | | 2 | | | +----+---+ + + | | 1 | Surgery end | | | | 7 | | | | | 3 | | | | | 8 | | | +----+---+ + + | | 1 | an ricardo now | | | | 7 | | | | | 4 | | | | | 3 | | | +----+---+ + + | | 1 | an stop | | | | 7 | data | | | | 4 | | | | | 9 | | | +----+---+ + + | | 1 | Anesthesia | | | | 7 | End | | | | 5 | | | | | 5 | | | +----+---+ + + | 06 | 0 | Incorrect | Some extreme values for NIBP may have been incorrectly posted in | | /1 | 8 | NIBP values | this patient's record. The source of these values was from an | | 7/ | 1 | | external input and was unrelated to the patient. Patient care | | 20 | 5 | | was not at risk because of the extreme values. | | 13 | | | | +----+---+ + + +------+ | Meds | +------+ + + + No medications | on file. | + + + + + | No agents on file. | + + + + | No blood administrations on file. | + + +--------+ + + + | Type | Details | Placement | Removal | +--------+ + + + | RETIRE | 09/02/12; 1120; 09/03/12; 1934; | 09/02/121119 by | 09/03/121934 by | | D - | No; 22; Left; Hand; Lidocaine; | Cristopher Covarrubias RN | Pilar Dawkins RN | | Periph | No; Positive | | | | eral | | | | | Line | | | | +--------+ + + + | RETIRE | 09/02/12; 1412; 09/03/12; 193; | 09/02/12 141 by | 09/03/121934 by | | D - | 20; Right; Hand; Therapy | Jean-Paul Almazan MD | Pilar Dawkins RN | | Periph | completed | | | | eral | | | | | Line | | | | +--------+ + + + | RETIRE | 09/02/12; 1504; No; Left:; leg; | 09/02/12 1504 by | 09/02/12 1624 by | | D - | 09/02/12; 1624 | Adriana Al RN | Adriana Al RN | | Incisi | | | | | on | | | | +--------+ + + + | RETIRE | 09/02/12; 1549; arthroscopy port | 09/02/12 1549 by | 05/29/17 1622 by | | D - | site x2; No; Left:; knee; | Adriana Al RN | Discontinued After | | Incisi | 05/29/17 (Automatic cleanup per | | Discharge | | on | RA 3006--contact admin for | | | | | questions.); 1622 (Automatic | | | | | cleanup per RA 3006--contact | | | | | admin for questions.) | | | +--------+ + + + | RETIRE | 09/02/12; 1618; I & D of tibia; | 09/02/12 1618 by | 05/29/17 1622 by | | D - | No; Left:, lower; leg; 05/29/17 | Adriana Al RN | Discontinued After | | Incisi | (Automatic cleanup per RA | | Discharge | | on | 3006--contact admin for | | | | | questions.); 1622 (Automatic | | | | | cleanup per RA 3006--contact | | | | | admin for questions.) | | | +--------+ + + + documented in this encounter Social History + +-------+ +--------+------+ | Tobacco [...] + + + | Blood Pressure | 116/60 | 08/24/2012 4:04 PM | | | | | PST | | + + + + + | Pulse | 86 | 08/24/2012 4:04 PM | | | | | PST | | + + + + + | Temperature | 36.3 C (97.4 F) | 08/24/2012 4:04 PM | | | | | PST | | + + + + + | Respiratory Rate | 14 | 08/24/2012 4:04 PM | | | | | PST | | + + + + + | Oxygen Saturation | 96% | 08/24/2012 4:04 PM | | | | | PST | | + + + + + | Inhaled Oxygen | - | - | | | Concentration | | | | + + + + + | Weight | 70 kg (154 lb 6.4 | 08/24/2012 4:04 PM | | | | oz) | PST | | + + + + + | Height | 170.2 cm (5' 7") | 08/24/2012 4:04 PM | neck 32cm | | | | PST | | + + + + + | Body Mass Index | 24.18 | 08/24/2012 4:04 PM | | | | | PST | | + + + + + documented in this encounter Patient Instructions Patient Instructions Maira Zhao NP - 08/24/2012 4:11 PM PST PREOPERATIVE INSTRUCTIONS Empty stomach before surgery! On the day BEFORE your surgery, drink plenty of fluids and stay well hydrated Do not eat or drink ANYTHING after midnight the night before surgery, or 8 hours prior t o surgery. This includes water, coffee, candy, mints, gum. Medications Instructions TAKE the following medications with a sip of water on the morning of surgery: HYDROcodone-acetaminophen 5-500 mg Oral tablet, Take 1 Tab by mouth every four hours as nee ded. Not to exceed 6 tablets per any 24 hour period. (Not to exceed 3250 mg of acetaminophen from all products per 24 hour period.) Other medications not specifically mentioned are at your discretion as to taking or not taking on the morning of surgery. Unless otherwise directed by your surgeon, do not take any Aspirin, vitamin E or non-ector roidal anti-inflammatory (NSAIDs i.e. Advil, Aleve, Ibuprofen) or herbal supplements 7-14 da ys prior to your surgery. These drugs may interfere with normal blood clotting and may cause excessive bleeding and bruising during or after the surgery. If you are taking Coumadin (warfarin), Plavix or any other blood thinners please let you r surgical team know as medication changes may be necessary. If you need a pain medication for general purposes, use Tylenol as directed. OK to take it even on the morning of surgery, if needed. If you are in doubt about any medications that you are taking, please contact our office . Skin preparation to help avoid surgical site infections HIBICLENS GUIDE TO GENERAL SKIN CLEANSING AT HOME BEFORE SURGERY Before you bathe or shower: Read the instructions given to you by your healthcare practitioner, and begin your genera l skin cleansing protocol as directed. Carefully read all directions on the product label. Hibiclens is not to be used on the head or face, keep out of the eyes, ears and mouth. Hibiclens is not to be used in the genital area. Hibiclens should not be used if you are allergic to chlorhexidine gluconate or any other ingredients in this preparation. *See Hibiclens label for full product information and precautions. When you bathe or shower the night before your surgery: If you plan to wash your hair, do so with your regular shampoo. Then rinse hair and body thoroughly to remove any shampoo residue. Wash your face with your regular soap or water only. Thoroughly rinse your body with warm water from neck down. Use Hibiclens as you would any other liquid soap. Please do not put the Hibiclens on a wa sh cloth, apply directly to the skin and wash gently. Apply the minimum amount of Hibiclens necessary to cover the skin. Leave the Hibiclens on your skin for 1 minute, then rinse off. Rinse thoroughly with warm water. Do not use your regular soap after applying and rinsing Hibiclens. When using Hibiclens for a second day in a row (morning of surgery, as soon as you wake up) : Shower/bathe again using Hibiclens in the same method as described above. Do not apply any lotions, deodorants, powders or perfumes to the body areas that have been cleaned with Hibiclens. Other Important Guidelines Do not shave the surgical area Do not smoke, drink alcohol or use recreational drugs for 24 hours before your surgery Watch for any change in your health condition. Let your surgeon know right away if you do not feel well. Do not wear makeup, perfume, lotions, deodorant, powder or hairspray. Do not wear any jewelry to the hospital. Wear loose, comfortable clothing. Leave all your valuables at home. Allow enough travel time so you re not late for your check in for surgery. Take a bath or shower and remember to shampoo your hair using your usual hair product bef ore your arrival at the hospital. Please remember to brush your teeth the night before and the morning of your procedure. Preventing post op complications while you are in the hospital Use an incentive spirometer or peep breathe to keep your lungs working properly an d to help prevent respiratory complications. It helps you take long, deep breaths. Use it at least once every hour while you are awake. Leg and feet exercises will maintain good circulation and help prevent blood clots in yo ur legs. Sometimes your doctor will order air compression stockings. Compressed air helps the circulation in your legs. Walking and moving will help stimulate normal circulation and deep breathing. After you r surgery, your nurse may ask you to sit, stand or walk. Surgery Check in Locations Admitting [facility] Surgery Check in Time: The Preoperative Medicine Clinic is not in the position to give you accurate information regarding surgical check in time. We refer you back to your surgical office regarding this important information. Going Home Your surgical team will decide when you are medically ready to go home. If you stayed in the hospital after surgery, please arrange for your ride to come for yo u around 9AM on the day your doctor says you can go home. Check out time is 11AM. If you have questions or concerns after you go home, call your doctor s office. If it is after office hours, call the [facility] booster operator at [phone] and ask them to page him or h er. Preparing For Your Surgery Video -- 7 minutes of instructions! If you have access to the Internet and would like to review our instructional video about g etting ready for your procedure day, please follow these directions: Access the [facility] website [email or web address] --> POPULAR RESOURCES --> Patient Guide --> Preparing for your Visit or Surgery --> "Preparing for Your Surgery" video link documented in this encounter Progress Notes Maira Zhao NP - 08/24/2012 3:59 PM PST PREOPERATIVE CONSULT NOTE Consulting Provider: MAIRA ZHAO NP Referring Physician: Alton Hernandez MD Primary Care Provider: SAEED Presley Reason for Consult: Preoperative evaluation and risk assessment Proposed Procedure/Date: KNEE SOFT TISSUE PROCEDURES on 09/02/2012 HISTORY OF PRESENT ILLNESS: Sandy Marc is a 21 y.o. female here for preoperative e valuation for above procedure. 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 Found to have tibial plateau fx. S/p ORIF o n 12/10/2011 at OSH. Continued to have difficulty with chronic draining from incision post- op - ultimately underwent synovectomy and proximal tibial I&D with hardware removal on 04/14. Wound dehisced again and started draining in July. Plan for 1. Irrigation and d ebridement of left proximal tibial with placement of CaSO4 antibiotics beads. 2. Arthroscopi c irrigation and debridement of left knee with synovectomy. Other significant medical hx includes asthma. She has no hx nor symptoms of CAD, CHF, CVA, CKD or DM (treated with insulin). Functional capacity is Intermediate ROS: 12 system ROS Preoperative Patient Questionnaire was reviewed with the patient. Pert inent positives are noted in HPI and PMHX. Document will be scanned in [employer]. Pulmonary: Within Defined Limits except as noted below no cough no shortness of breath no w heezing Pt. Has asthma Classification: Frequency: monthly ER Visits: none Hospital Visits: n one No dx of sleep apnea no sleep apnea Cardiovascular: Good METS; limited by knee pain/osteomyelitis, but able to ambulate with cr utches. Prior to injury, no functional limitations Denies any chest pain or pressure, SOB, SALAS, orthopnea, PND, peripheral swelling or syncope . Remote hx of chest tightness and SOB attributed to asthma. Within Defined Limits except as noted below Functional Capacity: Moderate - chest pressure and syncope no CAD no CHF no pacemaker GI/Hepatic: Within Defined Limits except as noted below GERD Control: rare/only with certai n foods : Within Defined Limits except as noted below Endo: Within Defined Limits except as noted below Neurological: Within Defined limits except as noted below no psychiatric problem pain (Left knee pain - rarely takes hydrocodone-acet for pain. ) Current pain level: 3 Chronic pain re lated to scheduled surgery MS: Tibial plateau fx (11/2011) s/p ORIF in December 2011. Now with possible chronic osteomyeliti s and possibly septic arthritis in left knee. Previously cultured positive for MSSA and Group B strep. Heme/Onc: Within Defined Limits except as noted below Pt. has: no active bleeding Skin: Comments: Drainage from left knee incision - per pt, scant - small serosang drainage every couple days. Denies any purulent or foul smelling drainage. No fevers/chills. Within D efined Limits except as noted below open wounds or sores noted No hx MRSA/VRE/Active skin in fection Current Medication List Name Sig ALBUTEROL SULFATE HFA 90 MCG/ACTUATION AEROSOL INHALER Inhale 1-2 Puffs every four hours as needed. HYDROCODONE-ACETAMINOPHEN 5 MG-500 MG TABLET Take 1 Tab by mouth every four hours as needed . Not to exceed 6 tablets per any 24 hour period. (Not to exceed 3250 mg of acetaminophen fr om all products per 24 hour period.) LEVONORGESTREL 20 MCG/24 HR INTRAUTERINE DEVICE 1 Each by Intrauterine route once. May be r emoved and replaced with a new unit at anytime during menstrual cycle; do not leave any one system in place for > 5 years. Allergies Allergen Reactions Amoxicillin Diarrhea, Hives, Rash, Nausea and Vomiting Sulfa(Sulfonamide Antibiotics) Hives Past Medical History Diagnosis Date Asthma Past Surgical History Procedure Date Leg surgery 12/10/2011 L Nasal septum surgery 02/05/2007 Leg surgery 2011 x3; [facility] L prox tibial, I&D, knee synovectomy for infection Family History Problem Relation Hypertension Grandmother History Substance Use Topics Smoking status: Never Smoker Smokeless tobacco: Never Used Alcohol Use: Yes 4 beers on Friday and nights PHYSICAL EXAM: Last Vitals: BP 116/60 | Pulse 86 | Temp (Src) 36.3 C (97.4 F) (Oral) | RR 14 | Ht 1.70 2 m (5' 7") | Wt 70.035 kg (154 lb 6.4 oz) | SpO2 96% | BMI 24.18 kg/(m^2) Body mass index i s 24.18 kg/(m^2). General: Patients general appearance: Healthy, Alert, No distress, Cooperative, Age appropr iate and Smiling Head & Neck/Airway: NC/AT; PERRL; EOMI; nl appearing ears and nose. Neck ROM: full Neck Cir cumference: 32 cm. TM Distance:Normal Dentition: dentition is normal Ngo: No Mallampati: II Mouth Opening: > = 3 cm C-Spine: normal Neck Anatomy: Normal Jaw Protrusion: Normal, lower incisors can prot rude past upper incisors Lung Exam: No respiratory distress. Normal breathing pattern. breath sounds normal Cardiac: No murmurs, gallops or rubs. +2 peripheral pulses bilaterally Rhythm: regular Rate : normal Abdominal: General Findings: Deferred Musculoskeletal: Findings: tone normal Neuro/Psych: No focal neuro deficits; Alert and appropriate; nl affect. alert Findings: No tremor, Alert, oriented to person, place, time and Normal affect Integument: + open wounds - lesion and rash Color: pink Turgor: turgor normal Implants: None, Comments: Denies any personal or family hx of anesthesia complications LAB DATA REVIEWED/ORDERED Lab Results Component Value Date WBC 9.4 08/06/2012 HB 13.2 08/06/2012 HCT 40.1 08/06/2012 PLT 264 08/06/2012 MCV 88.6 08/06/2012 RDW 14.0 08/06/2012 Lab Results Component Value Date NA 138 08/06/2012 K 3.6 08/06/2012 CL 103 08/06/2012 BICARB 28 08/06/2012 BUN 13 08/06/2012 CR 0.65 08/06/2012 GLU 86 08/06/2012 CA 9.1 08/06/2012 AST 16 08/06/2012 ALT 24 08/06/2012 AP 82 08/06/2012 TBILI 0.3 08/06/2012 TP 8.2 08/06/2012 ALB 4.0 08/06/2012 MEDICAL DECISION MAKIN ACC/ AHA Perioperative Guidelines 1. Need for emergency noncardiac surgery? b. No -> Proceed to next step. 2. Active Cardiac Conditions? These conditions mandate further investigation and manageme nt. A. Acute DE within 7 days: no B. Unstable angina/Recent DE (7- 30 days): no C. Decompensated CHF: no D. Significant arrhythmia: None E. Severe valvular disease: NONE 3. Low risk surgery? b. No -> proceed with next step. 4. Good functional capacity? MET ASSESSMENT: 5. METS--walking briskly, washing the car. 5. Assess Clinical Risk Factors? A. Ischemic heart disease: no B. Compensated / prior heart failure: no C. Diabetes mellitus (treated with insulin): no D. Renal insufficiency (Cr > 2): no E. Cerebrovascular disease: no Rate of cardiac , non fatal DE, non fatal cardiac arrest (RCRI) 0 risk factors - 0.4% 1 risk factors - 1%, 2 risk factors - 7%, 3 or >risk factors - 11% (may benefit from perioperative beta blockers) Risk Factor Recommendations: 0 risk factors- proceed with planned surgery Surgery Risk: Intermediate Patient-related risk: Estimated ASA class -- 2 ASSESSMENT and RECOMMENDATIONS: Surgical/anesthesia risk assessment: Sandy Marc is a 21 y.o. female with diagno sis of Osteomyelitis of knee region, AVN (avascular necrosis of bone), Pathologic fracture o f tibia or fibula, and Septic arthritis of knee, left, scheduled for I&D of left proximal ti ibis with placement of CaSO4 abx beads and arthroscopic I&D of left knee with synovectomy. A ccording to ACC/AHA, this patient has zero clinical risk factors and the recommendation is t o proceed with planned surgery without additional cardiac testing. Medication management recommendations: The patient was advised to continue all usual med ications except as noted in Patient Instructions (After Visit Summary given to pt) Perioperative antibiotic prophylaxis: Standard (Consider IV Vanco one hr before procedu re in pts with Cephalosporin/PCN allergy and/or with hx of MRSA) Asthma - stable, no recent exacerbations. Advised to cont rescue inhaler as needed. This patient is medically stable for surgery. Further testing/optimization is not needed. Thank you for the opportunity to contribute to this patient's care. MAIRA ZHAO NP [facility] [address] [place] [id number] [phone] signed by Maira Zhao NP at 08/24/2012 5:16 PM PSTdocume nted in this encounter Plan of Treatment Not on filedocumented as of this encounter Procedures + +--------+ + + + | Procedure Name | Priori | Date/Time | Associated Diagnosis | Comments | | | ty | | | | + +--------+ + + + | PROCEDURE NOTE | Routin | 09/14/2015 | | Results for this | | | e | 11:57 PM | | procedure are in the | | | | PST | | results section. | + +--------+ + + + documented in this encounter Results PROCEDURE NOTE (09/14/2015 11:57 PM PST) + + | Transcriptions | + + | He Layne - 08/24/2012 6:47 PM PST | + + documented in this encounter Visit Diagnoses + + | Diagnosis | + + | Other specified pre-operative examination - Primary | + + | Septic arthritis of knee, left (HCC) Pyogenic arthritis, lower leg | + + | AVN (avascular necrosis of bone) (HCC) Aseptic necrosis of bone, site unspecified | + + | Osteomyelitis of knee region (HCC) Unspecified osteomyelitis, lower leg | + + | Asthma | + + documented in this encounter
--- OUTSIDE RECORDS SUMMARY | ~2019-12-16 | XMS | Encounter Summary ---
Demographics + + + | Address | [address] | | | [place] [address] | + + + | Home Phone | | + + + | Preferred Language | Unknown | + + + | Marital Status | Single | + + + | Adventist Affiliation | LUT | + + + | Race | White | + + + | Ethnic Group | Not or | + + + Author + + + | Author | [facility] | + + + | Organization | [facility] | + + + | Address | Unknown | + + + | Phone | Unavailable | + + + Support + + + + + | Name | Relationship | Address | Phone | + + + + + | Grisel Marc | ECON | [address] | | | | | [place] | | | | | [address] | | + + + + + Care Team Providers + +------+ + | Care Test Hole Driller Name | Role | Phone | + +------+ + | Adilia BobP | PCP | | + +------+ + Encounter Details +--------+------+ + + + | Date | Type | Department | Care Team | Description | +--------+------+ + + + | 08/25/ | Lab | Laboratory at [facility] | | Osteomyelitis of | | 2012 | | [address] | | knee region (HCC) | | | | [facility] | | | | | | [address], [address] floor | | | | | | [place], [place] | | | | | | [address] | | | | | | [phone] | | | +--------+------+ + + + [...] CBC AND AUTO DIFF | Routin | 08/25/2012 | Osteomyelitis of | Results for this | | | e | 10:01 AM | knee region (HCC) | procedure are in the | | | | PST | | results section. | + +--------+ + + + | CBC, WITH | Routin | 08/25/2012 | Osteomyelitis of | Results for this | | DIFFERENTIAL | e | 10:01 AM | knee region (HCC) | procedure are in the | | | | PST | | results section. | + +--------+ + + + | IGG SUBCLASSES I-IV, | Routin | 08/25/2012 | Osteomyelitis of | Results for this | | SERUM | e | 10:01 AM | knee region ([facility]) | procedure are in the | | | | PST | | results section. | + +--------+ + + + | HIV-1,2 AB/HIV-1 P24 | Routin | 08/25/2012 | Osteomyelitis of | Results for this | | AG SCRN | e | 10:01 AM | knee region ([facility]) | procedure are in the | | | | PST | | results section. | + +--------+ + + + | IGA, SERUM | Routin | 08/25/2012 | Osteomyelitis of | Results for this | | | e | 10:01 AM | knee region ([facility]) | procedure are in the | | | | PST | | results section. | + +--------+ + + + documented in this encounter Results CBC AND AUTO DIFF (08/25/2012 10:01 AM PST) + + + + + + | Component | Value | Ref Range | Performed | Pathologist | | | | | At | Signature | + + + + + + | WHITE CELL | 10.2 | 4.4 - 11.0 K/cu | [facility] | | | COUNT | | mm | LABORATORY | | | | | | SERVICES, | | | | | | CORE | | + + + + + + | RED CELL | 4.54 | 4.00 - 5.20 | [facility] | [...] + + + + | HEMATOCRIT | 40.3 | 36.0 - 46.0 % | [facility] | | | | | | LABORATORY | | | | | | SERVICES, | | | | | | CORE | | + + + + + + | MCV | 88.9 | 80.0 - 96.0 fL | [facility] | | | | | | LABORATORY | | | | | | SERVICES, | | | | | | CORE | | + + + + + + | MCHC | 32.8 (L) | 33.4 - 35.5 | [facility] | | | | | g/dL | LABORATORY | | | | | | SERVICES, | | | | | | CORE | | + + + + + + | RDW | 13.6 | 11.5 - 15.0 % | [facility] | | | | | | LABORATORY | | | | | | SERVICES, | | | | | | CORE | | + + + + + + | PLATELET | 281 | 150 - 400 K/cu | [facility] | | | COUNT | | mm | LABORATORY | | | | | | SERVICES, | | | | | | CORE | | + + + + + + | NEUTROPHIL | 51 | 50 - 70 % | [facility] | | | % | | | LABORATORY | | | | | | SERVICES, | | | | | | CORE | | + + + + + + | LYMPHOCYTE | 36 | 18 - 42 % | [facility] | | | % | | | LABORATORY | | | | | | SERVICES, | | | | | | CORE | | + + + + + + | MONOCYTE % | 6 | 2 - 8 % | [facility] [...] + + + + | NEUTROPHIL | 5.2 | 1.8 - 7.7 K/cu | [facility] | | | # | | mm | LABORATORY | | | | | | SERVICES, | | | | | | CORE | | + + + + + + | LYMPHOCYTE | 3.6 | 1.0 - 4.8 K/cu | [facility] | | | # | | mm | LABORATORY | | | | | | SERVICES, | | | | | | CORE | | + + + + + + | MONOCYTE # | 0.7 | 0.0 - 0.8 K/cu | [facility] | | | | | mm | LABORATORY | | | | | | SERVICES, | | | | | | CORE | | + + + + + + | EOS # | 0.7 (H) | 0.0 - 0.5 K/cu | [...] [facility] | [address] | [place] [address] | | | SERVICES, CORE | [address] | | | + + + + + HIV-1,2 AB/HIV-1 P24 AG SCRN, SERUM (08/25/2012 [...] + + + + + | [facility] | [address] | [place] [address] | | | SERVICES, SPECIAL | [address] [...] | | | | | in the [employer] | | | | | | LaboratoryTest Directory | | | | | | ([facility]). | | | | + + + [...] | | | | | in the [facility] [[email or web address]] | | | | | | LaboratoryTest Directory | | | | | | ([facility]). | | | | + + + [...] | | | | | in the [facility] [[email or web address]] | | | | | | LaboratoryTest Directory | | | | | | ([facility]). | | | | + + + [...] # | | | | | | [phone]). Access | | | | | | complete set of age- | | | | | | and/or | | | | | | gender-specificreference | | | | | | intervals for this test | | | | | | in the [employer] | | | | | | LaboratoryTest Directory | | | | | | ([facility]).Performed | | | | | | by [facility] [[email or web address]] | | | | | | Formerly [facility],[address] [place] [address] | | | | | | [place] [address] | | | | | | [phone] | | | | | | [facility], Magy Fernandez, | | | | | [...] [facility] | [address] | [place], [place] | | | [facility] | | [address] | | + + + + + [...] | + + + + + | [facility] - | [address] | [place] [address] | | | [place] | | | | + + + + + documented in this encounter Visit Diagnoses + + | Diagnosis | + + | Osteomyelitis of knee region (HCC) Unspecified osteomyelitis, lower leg | + + documented in this encounter"
--- OUTSIDE RECORDS SUMMARY | ~2019-12-16 | XMS | Encounter Summary ---
Demographics + + + | Address | [address] | | | [place] [address] | + + + | Home Phone [...] Author + + + | Author | [facility] | + + + | Organization | [facility] | + + + | Address | Unknown | + + + | Phone | Unavailable | + + + Support + + + + + | Name | Relationship | Address | Phone | + + + + + | Grisel Marc | ECON | [address] | | | | | [place] | | | | | [address] | | + + + + + Care Team Providers + +------+ + | Care Aerospace Project Manager Name | Role | Phone | [...] | | | | Selene Villalta | [address] | | | | | [place] [facility] | [phone] | | | | | [place] | | | | | | [address] | | | | | | [phone] | | | +--------+ + + + [...]
--- OUTSIDE RECORDS SUMMARY | ~2019-12-16 | XMS | Clinical Summary ---
Demographics + + + | Address | [address] | | | [place] [address] | + + + | Home Phone | | + + + | Preferred Language | Unknown | + + + | Marital Status | Single | + + + | Holiness Affiliation | Unknown | + + + | Race | Unknown | + + + | Ethnic Group | Unknown | + + + Author + + + | Author | [facility] (Historical as of | | | 03-27-19) | + + + | Organization | [facility] (Historical as of | | | 03-27-19) | + + + | Address | Unknown | + + + | Phone | Unavailable | + + + Support + + +---------+ + | Name | Relationship | Address | Phone | + + +---------+ + | Monico,Grisel | ECON | Unknown | | + + +---------+ + Care Team Providers + +------+ + | Care International Relations Professor Name | Role | Phone | + +------+ + | Hina Peterson PA-C | PP | Unavailable | + +------+ + Allergies + + + + + + | Active Allergy | Reactions | Severity | Noted | Comments | | | | | Date | | + + + + + + | Amoxicillin | Other (See Comments) | Medium | 09/14/19 | Hives/ vomiting | | | | | 19 | | + + + + + + | Chlorhexidine | Other (See Comments) | Medium | 09/14/19 | | | Gluconate | | | 19 | | + + + + + + | Latex | Hives | High | 09/14/19 | | | | | | 19 | | + + + + + + | Sulfa Antibiotics | Other (See Comments) | Medium | 09/14/19 | Unknown reaction | | | | | 19 | | + + + + + + | Adhesive Tape | Rash | Medium | 09/14/19 | blistering | | | | | 19 | | + + + + + + Current Medications + + +-------+---------+------+------+-------+ | Prescription | Sig. | Disp. | Refills | Star | End | Statu | | | | | | t | Date | s | | | | | | Date | | | + + +-------+---------+------+------+-------+ | albuterol (PROAIR | Inhale 2 puffs into | | | 12/0 | | Activ | | HFA) 108 (90 Base) | the lungs. | | | 3/20 | | e | | MCG/ACT inhaler | | | | 18 | | | + + +-------+---------+------+------+-------+ | UNABLE TO FIND | Med Name: keto diet | | | | | Activ | | | supplement | | | | | e | + + +-------+---------+------+------+-------+ | methocarbamol | Take 750 mg by mouth | | | | | Activ | | (ROBAXIN-750) 750 MG | 4 (four) times | | | | | e | | tablet | daily. | | | | | | + + +-------+---------+------+------+-------+ Active Problems Not on file Family History + + +------+ + | Medical History | Relation | Name | Comments | + + +------+ + | ADHD | Brother | | | + + +------+ + | Diabetes type I | Brother | | | + + +------+ + | Coronary Artery | Maternal | | | | Disease | Aunt | | | + + +------+ + | Diabetes Mellitus II | Maternal | | | | | Aunt | | | + + +------+ + | ADHD | Sister | | | + + +------+ + + +------+ + + | Relation | Name | Status | Comments | + +------+ + + | Brother | | Alive | | + +------+ + + | Brother | | Alive | | + +------+ + + | Brother | | Alive | | + +------+ + + | Father | | Alive | | + +------+ + + | Maternal Aunt | | | [place] | | | | (Age | | | | | 64) | | + +------+ + + | Mother | | Alive | | + +------+ + + | Sister | | Alive | | + +------+ + + Social History + +-------+ +--------+ + | Tobacco Use | Types | Packs/Day | Years | Date | | | | | Used | | + +-------+ +--------+ + | Former Smoker | | 0.25 | | Quit: 04/14/2018 | + +-------+ +--------+ + + +---+---+---+ | Smokeless Tobacco: | | | | | Current User | | | | + +---+---+---+ + + | Tobacco Cessation: Ready to Quit: No; Counseling Given: Yes | + + + + +---------+ + | Alcohol Use | Drinks/We | oz/Week | Comments | | | ek | | | + + +---------+ + | Yes | 6 Cans | 3.6 | mostly weekends | | | of beer | | | + + +---------+ + + + + | Sex Assigned at | Date Recorded | | | | + + + | Not on file | | + + + Last Filed Vital Signs + + + + | Vital Sign | Reading | Time Taken | + + + + | Blood Pressure | 110/78 | 09/14/2018 9:22 AM PST | + + + + | Pulse | 83 | 09/14/2018 9:21 AM PST | + + + + | Temperature | - | - | + + + + | Respiratory Rate | - | - | + + + + | Oxygen Saturation | 96% | 09/14/2018 9:21 AM PST | + + + + | Inhaled Oxygen | - | - | | Concentration | | | + + + + | Weight | 88.6 kg (195 lb 6.4 | 09/14/2018 9:21 AM PST | | | oz) | | + + + + | Height | 170.2 cm (5' 7") | 09/14/2018 9:21 AM PST | + + + + | Body Mass Index | 30.6 | 09/14/2018 9:21 AM PST | + + + + Plan of Treatment + + + + + | Health Maintenance | Due Date | Last Done | Comments | + + + + + | Cervical Cancer | | | | | Screening (Pap) | 0 | | | + + + + + | Vaccine: Influenza | | | | | (Season Ended) | 0 | | | + + + + + | Vaccine: | | 07/27/2015, 05/10/1995, | | | Dtap/Tdap/Td (7 - | 5 | 04/09/1991, Additional history | | | Td) | | exists | | + + + + + Results Not on filefrom Last 3 Months Insurance + +--------+ +------+-------+ + | Payer | Benefi | Subscriber | Type | Phone | Address | | | t Plan | ID | | | | | | / | | | | | | | Group | | | | | + +--------+ +------+-------+ + | MEDICAID | POER | [id number] | | | [address] | | | [place] | | | | [place] | | | [place] | | | | [address] | | | ICT HELP DESK TECHNICIAN | | | | | + +--------+ +------+-------+ + + +--------+ +--------+ + + | Guarantor Name | Accoun | Relation to | Date | Phone | Billing Address | | | t Type | Patient | of | | | | | | | | | | + +--------+ +--------+ + + | ALYSA MARC | Person | Self [birth year] Home: | [address] | | | al/Fam | | 1990 | [phone] [place] | | | [place] | | | [phone] | [phone] | + +--------+ +--------+ + +
--- OUTSIDE RECORDS SUMMARY | ~2019-12-16 | XMS | Encounter Summary ---
Demographics + + + | Address | [address] | | | [place] [address] | + + + | Home Phone | | + + + | Preferred Language | Unknown | + + + | Marital Status | Single | + + + | Anglican Affiliation | LUT | + + + [...] + | Grisel Marc | ECON | [address] | | | | | [place] | | | | | [address] | | + + + + + Care Team Providers + +------+ + | Care Truckman Name | Role | Phone | + [...] | | [address] | [address] | | | | | [place], [place] | [phone] | | | | | [address] | | | | | | [phone] | | | +--------+ + + + [...]
--- OUTSIDE RECORDS SUMMARY | ~2019-12-16 | XMS | Clinical Summary ---
Demographics + + + | Address | [address] | | | [place] [address] | + + + | Home Phone [...] [place] | | | | | [address] | | + + + + + Care Team Providers + +------+ + | Care Chip Washer Name | Role | Phone | + +------+ + | Hina Peterson | PCP | | + +------+ + Source Comments FLIP is fully live on both EpicCare Ambulatory and EpicCare InPatient.[facility] Allergies + + + + + [...] | oral tablet | | | | 20 | | e | | | | | | 16 | | | + + + +---------+------+------+-------+ | polyethylene | | | 11 | 06/1 | | Activ | | glycol 17 gram/dose | | | | 10/28 | | e | | oral powder | | | | 16 | | | + + + +---------+------+------+-------+ | methylphenidate | | | 0 | 01/0 | | Activ | | HCl 5 mg oral tablet | | | | 20 | | e | | | | [...] tablet by | 60 | 1 | 04/ | | Activ | | EC 75 [...] | Possible avascular necrosis. Recommended referral to [facility] | | (10/22/2013 note) | + [...] | Visit | | STANTON Johnson | cruciate ligament of | | | [...] + + | 10/07/ | Hospital | Radiology | | | | 2019 | Encounter | | | | +--------+ + + + + | 10/07/ | Office | Orthopedics | Bambi Fried | Left knee pain, | | 2019 | Visit | | [facility] | unspecified | | | | | | chronicity (Primary | | | | | | Dx); Rupture of | | | | | | anterior cruciate | | | | | | ligament of left | | | | | | knee, subsequent | | | | | | encounter; | | | | | | Osteomyelitis of | | | | | | knee region (HCC); | | | | | | Articular cartilage | | | | | | disorder; | | | | | | 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 | +--------+ + + + + | 10/07/ | Travel | | | | | 2020 | | | | | +--------+ + + + + | 10/04/ | Telephone | Orthopedics | Tong Saba, | Care Coordination | | 2019 | | | MD | | +--------+ [...] | | | + + + + Last Filed Vital Signs [...] / | | Alton Hernandez MD at [facility] | | Leg | | | [...] + from Last 3 Months Results X-RAY KNEE 3 VIEWS LEFT (10/07/2019 10:43 AM PST) + + | Specimen | + + | | + + + + + | Narrative | Performed At | + + + | [address] [place] [address] | [facility] | | [place] [address] | [facility] | | [phone] Name: SANDY MARC (DINORA-EE-L) | RADIOLOGY | | Phys: BAMBI FRIED : 1990 Sex: F | | | CSN: [id number] MR# [id number] Exam Date: | | | 10/07/2019 EXAM: X-RAY KNEE 3 VIEWS LEFT [id number] CLINICAL | | | HISTORY: Left knee [...] proximal | | | tibial metadiaphysis. 2. Vlrn-of-dscxqlfj medial femorotibial joint | | | degeneration. REPORT SIGNED IN OTHER VENDOR SYSTEM | | | 10/08/2019 Reported by: HELENA BARRAZA MD Electronically | | | signed by: HELENA BARRAZA MD Transcribed Date/Time: 10/08/2019 | | | 13:44 Plier Worker: FLUENCY | | + + + + + | Procedure Note | + + | Interface, Radiology Results - 10/08/2019 1:51 PM PST [address] | | [place] [address] | | Name: SANDY MARC (DINORA-EE-L) Phys: BAMBI FRIED : 1990 | | Sex: F CSN: [id number] MR# [id number] Exam Date: 10/07/2019 EXAM:X-RAY | | KNEE 3 VIEWS LEFT [id number] CLINICAL HISTORY:Left knee pain. COMPARISON:06/14/2019 left | [...] in the | | proximal tibial metadiaphysis.2. Wwqb-jb-lfsewyey medial femorotibial joint | | degeneration. REPORT [...] in the proximal tibial metadiaphysis. | |2. Arry-ye-sllixmvg medial femorotibial joint degeneration. | | | | | | REPORT SIGNED IN OTHER VENDOR SYSTEM 10/08/2019 | |Reported by: HELENA BARRAZA MD | | | |Electronically signed by: HELENA BARRAZA MD | | | |Transcribed Date/Time: 10/08/2019 13:44 | |Plier Worker: FLUENCY | | | | | | [...] | | | + +--------+ +--------+-------+---------+--------+ | AVAYA ENGINEER MEDICAID | AVAYA ENGINEER | xxxxxxxx | Effect | | | Medica | | | EASTER | | cindi | | | id | | | [place] | | for | | | | | | | | all | | | | | | | | dates | | | | + +--------+ +--------+-------+---------+--------+ | AVAYA ENGINEER MEDICAID | AVAYA ENGINEER | xxxxxxxx | 08/11/19 | | | [...] | + +--------+ +--------+ + + | MonicoSandy | Person | Self | [birth year] | | [address] | | (Dinora-dmitri-l) [place] | al/Fam | | 1990 | [phone] | [place] [address] | | | nayla | | | 2 (Home) | | + +--------+ +--------+ + + | Dinora Marcdmitrioc | Person | Self | [birth year] | | [address] | | (Dinora-ee-l) [place] | al/Fam | | 1990 | [phone] | [place] [address] | | | [place]ayla | | | [...]
--- OUTSIDE RECORDS SUMMARY | ~2019-12-16 | XMS | Encounter Summary ---
Demographics + + + | Address | [address] | | | [place] [address] | + + + | Home Phone [...] + + + | Author | [facility] | + + + | Organization | [facility] | + + + | Address | Unknown | + + + | Phone | Unavailable | + + + Support + + + + + | Name | Relationship | Address | Phone | + + + + + | Grisel Marc | ECON | [address] | | | | | [place] | | | | | [address] | | + + + + + Care Team Providers + +------+ + | Care Senior Paralegal Name | Role | Phone | + [...] | s of knee | Health | [facility] | | | | | region ([facility]) | Associates | [address] [place], | | | | | AVN | [address] | [place] | | | | | (avascular | [address] | [address] | | | | | necrosis of | [place], | | | | | | bone) ([facility]) | [place] [address] | | | | | | Pathologic | Phone: | | | | | | fracture of | [phone] | | | | | | tibia or | Fax: | | | | | | fibula | [phone] | | | | | | Septic | | | | | | | 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| | | | | | knee, left | | | | | | | ([facility]) | | | | | | | Procedures | | | | | | | REQUEST TO | | | | | | | SURGERY | | | | | | | MANAGER AMBULATORY | | | | | | | [place] PARTIAL | | | | | | | REMOVAL OF | | | | | | | TIBIA [place] | | | | | | | INSERTION | | | | | | | DRUG IMPLANT | | | | | | | DEVICE [place] | | | | | | | KNEE | | | | | | | SCOPE,SHAVE | | | | | | | ARTICULAR | | | | | | | CART [place] | | | | | | | KNEE | | | | | | | SCOPE,FULL | | | | | | | SYNOVECT | | | +--------+--------+ + + + + Encounter Details +--------+---------+ + + + | Date | Type | Department | Care Team | Description | +--------+---------+ + + + | 10/15/ | Office | Orthopaedics at | Darrick Buitrago MD | Osteomyelitis of | | 2013 | Visit | [facility] [address] | | knee region (HCC) | | | | [address] | | (Primary Dx) | | | | Mailcode: [id number] | | | | | | [facility] | | | | | | [place], [place] | | | | | | [address] | | | | | | [phone] | | | +--------+---------+ + + + [...] + + + | Blood Pressure | 125/68 | 10/15/2012 1:04 PM | | | | | PST | | + + + + + | Pulse | 84 | 10/15/2012 1:04 PM | | | | | PST | | + + + + + | Temperature | 36.4 C (97.5 F) | 10/15/2012 1:04 PM | | | | | PST [...] Weight | 70.8 kg (156 lb) | 10/15/2012 1:04 PM | | | | | PST | | + + + + + | Height | 170.2 cm (5' 7") | 10/15/2012 1:04 PM | | | | | PST | | + + + + + | Body Mass Index | 24.43 | 10/15/2012 1:04 PM | | | | | PST | | + + + + + documented in this encounter Progress Notes Darrick Buitrago MD - 10/15/2012 2:30 PM PST Sandy Marc is a 22 y.o. female who has Pathologic fracture of tibia or fibula, Os teomyelitis of knee region, AVN (avascular necrosis of bone), Septic arthritis of knee, left , Asthma, and Encounter for long-term (current) use of antibiotics on her problem list. ~ 6 weeks (09/02/12) status post left knee aspiration for culture, arthroscopy with partial media l meniscectomy and medial tibial plateau chondroplasty as well as I&D (including removal of retained CaPO4 bone cement and canal reaming) and placement of CaSO4 antibiotic beads into t he left tibia. She states that she is progressing well and finished her last dose of clindamycin yesterday , she continues to be followed by Dr. Peck in [place] whose PA is seeing her in clinic today [facility]. She has been compliant with non-weightbearing with crutches and is out of the brace. She has been following instructions and denies interval injury. In the last week she has no ticed some numbness down her medial leg and into the dorsal aspect of the left great toe wit h knee in flexion. The tingling subsides after a few minutes of her leg back in extension. Her Physical therapist also recommended she ask about flexeril to help increase her range of motion during therapy sessions. Daneel denies fever, chills, weakness, chest pain or shortness of breath. She one day of ve ry mild serosanguinous drainage since her last visit, otherwise her wound has been clean and dry without erythema. Pain Meds: No medications of specified category on file She is not taking any medications f or pain. She has not yet returned to work. PHYSICAL EXAM: Patient is alert and oriented times three in no apparent distress. BP 125/68 | Pulse 84 | Temp (Src) 36.4 C (97.5 F) (Oral) | Ht 1.702 m (5' 7") | Wt 70.7 61 kg (156 lb) | BMI 24.43 kg/(m^2) Patient reports a pain level of 0 today. Knee Range of Motion: Flexion Left 5-105* * = painful Straight leg test negative. Able to bear weight on left leg without pain. Incision healing without drainage. No erythema, cellulitis or lymphangitis. Sensation intact to light touch medial, lateral, plantar, dorsal and 1st web space of left leg, but decreased sensation of the lateral leg. Fires left ankle dorsiflexors, plantarfle xors, quads & hamstrings. Left leg pink and warm with 2 seconds capillary refill. Palpable dorsalis pedis and church official ior tibial pulses. X-RAYS: Reviewed x-rays with patient and family. Shows antibiotic beads in place in the ti ibis, with new bone growth surrounding the antibiotic beads compared with x-rays on 09/02/12. No new acute fractures. LABS: Recent Labs Basename 09/21/12 0930 09/14/12 0735 09/07/12 0712 WBC 7.2 9 8.4 RBC 3.6 3.4 3 HB 10.4* 9.8* 8.7* HCT 32 30.2 26.3 PLT 381 427 297 NEUTROPERC 43.2 52.3 54.9 BANDPCT -- -- -- LYMPHPERC 37.7 31.4 31.3 MONOPERC 6.4 7.9 6.2 BASOPERC 1.3 1.3 0.9 EOSPERC 11.4 7.2 6.8 Lab Results Component Value Date ESR 25 [...] possible septic arthritis (micrococcus) left knee. PLAN: Return in about 8 weeks (around 12/08/2012). with weight bearing 4 view left knee x-r ays as well as repeat AP & lateral left tibia x-rays. Will plan to advance to weight bearin g, but not activities as tolerated. Continue working with physical therapy to increase gracie nt range of motion. I do not recommend Flexeril to increase ROM as it doesn t seem to tr luis relax muscles and in her case much of the loss of ROM is from inflammation and scar tiss ue (aarthrofibrosis). The numbness she describes will likely improve with increased ROM, al so recommended B complex vitamins to help nerves. Okay to discontinue aspirin, continue taki ng vitamin D and calcium supplement for life. She may be released to resume horseback ridin g when she is 3 months post-op, able to achieve 120 degrees of flexion and when she is full weight bearing without pain. Call clinic with further questions or concerns. I discussed he r case with Dr. Peck who plans 3 more months of oral clindamycin antibiotics considering t he extensiveness of her infection. DARRICK BUITRAGO MD [facility] [address] [place] [address] Mailcode: [address] [place] [address] documented in this en counter Plan of Treatment Not on filedocumented as of this encounter Visit Diagnoses + + | Diagnosis | + + | Osteomyelitis of knee region (HCC) - Primary Unspecified osteomyelitis, lower leg | + + documented in this encounter
--- OUTSIDE RECORDS SUMMARY | ~2019-12-16 | XMS | Encounter Summary ---
Demographics + + + | Address | [address] | | | [place] [address] | + + + | Home Phone [...] Author + + + | Author | [facility] | + + + | Organization | [facility] | + + + | Address | Unknown | + + + | Phone | Unavailable | + + + Support + + + + + | Name | Relationship | Address | Phone | + + + + + | Grisel Marc | ECON | [address] | | | | | [place] | | | | | [address] | | + + + + + Care Team Providers + +------+ + | Care Apartment Maintenance Name | Role | Phone | + [...] + + | 10/04/ | Telephone | [facility] | Tong Saba, | Care Coordination | | 2020 | | Sports Medicine & | MD Selene Foy | | | | | Orthopaedic Surgery | [place], [place] | | | | | [address] | [address] | | | | | [place], [place] | [phone] | | | | | [address] | | | | | | [phone] | | | +--------+ + + + [...]
--- OUTSIDE RECORDS SUMMARY | ~2019-12-16 | XMS | Encounter Summary ---
Demographics + + + | Address | [address] | | | [place] [address] | + + + | Home Phone [...] [place] | | | | | [address] | | + + + + + Care Team Providers + +------+ + | Care Postal Worker Name | Role | Phone | [...] | | | | Disease | | ASEED Viveros | ADRIEN Epperson | | | | | | Family | [address] | | | | | | Health | [facility] | | | | | | Associates | Rd | | | | | | [address] | [place], [place] | | | | | | [address], [address] | [address] | | | | | | [place], | | | | | | | [place] [address] | | | | | | | Phone: | | | | | | | [phone] | | | | | | | Fax: | | | | | | | [phone] | | +--------+--------+ + + + + Encounter Details +--------+---------+ + + + | Date | Type | Department | Care Team | Description | +--------+---------+ + + + | 03/11/ | Office | Orthopaedics & | Zoey Peck, | Osteomyelitis of | | 2012 | Visit | Rehabilitation at | MD [address] | knee region (HCC) | | | | [facility] [address] | (Primary Dx) | | | | [address] | [place] [address] | | | | | Physician's | [phone] | | | | | Lazaro, 4th floor | | | | | | [place], [place] | | | | | | [address] | | | | | | [phone] | | | +--------+---------+ + + + [...] encounter Progress Notes Zoey Peck MD - 03/11/2013 2:08 PM PDTFormatting of this note might be different fr om the original. INFECTIOUS DISEASES CLINIC FOLLOW UP Referrring Physician: Alton Hernandez MD [address] [place] [address] Primary Care Physician: [facility] [address], [address] [place] [address] Ms. Marc presents to Infectious Diseases Clinic regarding scheduled follow up. Please refer to prior documentation including inpatient OPAT teaching note, outpatient OPAT division order technician for antibiotic therapy, lab monitoring History other than "Interim History" below is directly copied from previous ID notes to darya mcdonough. In addition I reviewed the history from the patient's [facility] admiss ion, including but not limited to all pertinent ID consultation notes, surgical procedures & findings, culture results & lab tests, pathology reports, case management notes, and the spital discharge summary.Sandy Marc is a 22 y.o. female a couple of weeks of knee p ain in November 2011 and then was doing rodeo on her horse going around barrels, and she was le aning out away from the barrels. Her legs spontaneously broke with pathological fracture. Sh e had a tibial plateau fracture. This was mended with a screw and cement. However, the wound s then never healed and drained. She has subsequently had surgery. She had the first surgery on December 09, January 09, and then April 14 was the last one. Group B strep and MSSA have grown out of it in the past, but we will need to confirm this. Since that time intermittently spit s out pieces of calcium. She has no systemic symptoms of this. No fevers, chills, or sweats, and she is otherwise well. She gives no history of excessive infections as a child, however , did have some sinus infections. She does have unprotected sex and uses an IUD for contrace ption but has apparently not been using condoms. She had an HIV test which was negative. She was admitted for surgery and underwent the procedure below on 09/02/2012. She grew out . 3/6 Staphylococcus aureus Cefazolin S Clindamycin S Erythroycin [...] canal, placement of antibiotic beads 09/03/2012: HIRAM [facility] Operative Findings: There were no gross findings of purulence in the joint. There was, however, grossly inflame d synovium present in the suprapatellar pouch as well as the medial and lateral gutter of th e knee. TWe performed a debridement and biopsy of the inflamed synovium We made an elliptica l incision to excise the previous draining sinus tract on the anterior proximal leg. We also found that deeper in our tibial tunnel, there was fluid draining from the intramedullary ca nal and so we therefore entered the intramedullary canal and found a large amount of turbid fluid present, which was again sent to culture. As the calcium phosphate cement and the drai raymond tract appear to communicate with the intramedullary canal, we decided at this time that we needed to perform a thorough reaming of the intramedullary canal both distally and proxi yuliet from our cortical window. we proceeded to place antibiotic beads in the proximal tibia l tunnel as well as somewhat down the [...] She was seen in the ER in [place] and had a CT Thor ax that [...] numbness in her index finger. Her PICC li ne was pulled and she was transitioned to po clindamycin Ms. Marc presents 12/08/12 from home. The patient has been receiving oral clindamcyin as d irected without missed doses. There have been no noticeable antibiotic side effects, but has not been great about taking it- maybe once or twice aday Wound is well healed and she is riding horses again. x-rays today show beginning of bone fo rmation. We switched to po doxy Interim History Ms. Marc presents today from home. Off antibiotics for the last two months with a well healed scar- back to doing more normal things. She had some increased pain a few weeks ago, but this has now gone Current Medications: Current Outpatient Prescriptions Medication Sig [...] > 5 years. No current facility-administered medications for this visit. Allergies: No new allergic reactions have been noted today. Amoxicillin; Latex; and Sulfa (sulfonamide antibiotics) Physical Exam: VS: There were no vitals taken for this visit. The patient was sitting comfortably at rest. Wound is well healed. Quiet looking knee and scar Diagnostic Tests: Recent lab results were reviewed [...] Date/Time VANCOTROUGH <0.2 09/14/12 VANCOTROUGH 8.9 09/04/12 . Diagnosis 1. 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 Marc has a quiet leg having been off antibiotics for two months and is doing well. I explained that this is the small possibility that the infection could recur. I reviewed t he symptoms that would indicate a recurrence in the infection, and to contact the Infectious Disease/OPAT office if the patient thinks this is happening. It is recommended that Ms. Marc follow up in Infectious Diseases [facility] I spent 20 minutes in a face-to face visit with the patient, with over 50% of time spen t in councelling the patient. We discussed infection, antibiotics, duration of therapy, lab results, and follow-up planning, as described above. ZOEY PECK MD INFECTIOUS DISEASES [address] [place] [address] Mailcode: L[address] [place] [address] documented in this e ncounter Plan of Treatment Not on filedocumented as of this encounter Visit Diagnoses + + | Diagnosis | + + | Osteomyelitis of knee region (HCC) - Primary Unspecified osteomyelitis, lower leg | + + documented in this encounter
--- OUTSIDE RECORDS SUMMARY | ~2019-12-16 | XMS | Encounter Summary ---
Demographics + + + | Address | [address] | | | [place] [address] | + + + | Home Phone | | + + + | Preferred Language | Unknown | + + + | Marital Status | | + + + | Islam Affiliation | Unknown | + + + | Race | Unknown | + + + | Ethnic Group | Unknown | + + + Author + + + | Author | [facility] | | | and [place] | + + + | Organization | [facility] | | | [...] Team Providers + +------+ + | Care Pipe Washer Name | Role | Phone | + +------+ + | Hina Peterson PA-C | PCP | | + +------+ + Encounter Details +--------+ + + + + | Date | Type | Department | Care Team | Description | +--------+ + + + + | 09/14/ | Orders Only | [facility] | Conversion | | | 2019 | | CONVERSION DEP [address] | Transaction, | | | | | [address] | Provider Unknown | | | | | [place], [place] | [phone] | | | | | [address] | | | | | | [phone] | | | +--------+ + + + + Social History + +-------+ +--------+------+ | Tobacco Use | Types | Packs/Day | Years | Date | | | | | Used | | + +-------+ +--------+------+ | Former Smoker | | 0.25 | | | + +-------+ +--------+------+ + [...]
--- OUTSIDE RECORDS SUMMARY | ~2019-12-16 | XMS | Encounter Summary ---
Demographics + + + | Address | [address] | | | [place] [address] | + + + | Home Phone [...] Author + + + | Author | [facility] | + + + | Organization | [facility] | + + + | Address | Unknown | + + + | Phone | Unavailable | + + + Support + + + + + | Name | Relationship | Address | Phone | + + + + + | Grisel Marc | ECON | [address] | | | | | [place] | | | | | [address] | | + + + + + Care Team Providers + +------+ + | Care Machine Designer Name | Role | Phone | + [...] 09/02/ | Surgery | 6A Intra Op [id number] | Alton Hernandez MD | IRRIGATION AND | | 2012 | | [facility] | | DEBRIDEMENT OF LEFT | | | | [address] | | PROXIMAL TIBIAL WITH | | | | Hospital Admitting | | PLACEMENT OF CASO4 | | | | Desk Located on the | | ANTIBIOTICS BEADS; | | | | 9th floor | | microbiology x 11 | | | | [place], [place] | | | | | | [address] | | | +--------+---------+ + + + [...] Angel MD - 09/10/2012 8:12 AM PST [facility] DEPARTMENT OF ORTHOPAEDICS & REHABILITATION INPATIENT HOSPITAL DISCHARGE SUMMARY & INTERDISCIPLINARY INSTRUCTIONS Patient: [place] Marc CSN: [id number] Admission Date: 09/02/2012 Discharge Date: 09/05/2012 Attending Physician: Alton Hernandez MD PCP: SAEED Pres[place] Service: [facility] Orthopaedics & Rehabilitation Diagnoses Principal Final Diagnosis: [...] for > 5 years. , Historical Med [facility] Orthopaedic Service Pain Policy At the 6-week [...] our pleasure. David Peter MD Pager # [phone] documented in this enc ounter Discharge Instructions Instructions Sally Gupta RN - 09/04/2012Formatting of this note might be different f rom the original. ADDITIONAL INFORMATION: [facility] will provide IV antibiotics and education. They can be r eached at: [phone]. You will need to go to [facility] ([phone] - Unit C) for PICC line dressin g changes weekly, and blood work as directed by /OPAT (Out Patient Antibiotic Therapy Cli danielle). Septic [...] Arthritis: After Your Visit", log into your [employer] account at [email or web address]. You can enter C265 in the [employer] Library" search box. Not on [employer]? Review the MyChart section of your After Visit Summary for directions on aysha norris to sign up. [phone] [employer]. Care instructions adapted under license by [facility] [place]. This care instruction is for use with your licensed healthcar e professional. If you have questions about a medical condition or this instruction, always ask your healthcare professional. [employer] disclaims any warranty or liabili ty for your use of this information. Content Version: 9.5.51635; Last Revised: July 18, 2011 Patient Education [...] weeks, arrangements being made with LENCHO 11. ilvernkonstantin JURADO, Brigid Johnson - 09/04/2012 8:46 AM [...] provider under separate cover. Anticipated OPAT Setting: [facility] [phone] f: [phone] ID/OPAT Clinic follow-up: OPAT clinic visit in 1-2 weeks after discharge in conjunction wit h [facility] Orthopedic Service. We will call to schedule this appointment after patient is disch arged. Interdisciplinary Communication: Please notify OPAT clinic 24-48 hours prior to discharge b y calling [phone] (We need anticipated discharge date & where patient is going; i.e. name, ph one, and fax for home infusion vendor, custodial facility, or daily outpatient infusio n center providing outpatient antibiotic therapy services.) [facility] Department of Infectious Disease Outpatient IV Antibiotic Therapy Clinic (OPAT) Pager ID: [phone] [facility] Ravi. Mail Code B474 [place] [address] OPAT teaching note: Education and training for [...] type of infection. I reviewed with t susana patient that 6 weeks of IV Ceftriaxone [...] symptoms immediately, and if unable to contact [facility] or the infus ion service provider, then to present to the nearest ED. I verified that the patient has a primary care provider, and that they will follow-up with them following this hospitalization in regards to other medical issues such as chronic pain, diabetes, or high blood pressure for which we do not provide any care. I provided the patient with the [facility] welcome letter that reiterates the above teaching. I spent 45 minutes in education and training in patient self management for IV antibiotic a nd PICC line use with greater than 50% spent on counseling and/or coordination of care. [facility] DEPARTMENT: IDC INFECT DIS CONSULT - [phone] Place of Service: Inpatient Date of Service: 09/04/2012 CSN: [id number] Suggested Modifier: OPATC David Angel MD - [...] made with LENCHO Peter MD Pager # [phone] David Angel MD - 09/03/2012 7:53 AM [...] 6 weeks David Peter MD Pager # [phone] Malathi Mccauley MD - 09/03/2012 1:27 AM [...] See brief op note MALATHI BRYANT MD [facility] [place] Department of Orthopaedics & Rehabilitation [address] [place] [address] Mail Code: OP31 [facility] [address] documented in this e ncounter Plan of [...] | + +--------+ + + + | SARAH, TROUGH | Routin | 09/04/2012 | | [...] | + + + + + | [facility] | [address] [facility] | [place] [address] | | | ELLIE LONG | [address] | | | + [...] [facility] | [address] | [place] [address] | | | SERVICES, ELLIE | PARK [...] | + + + + + | [facility] | [address] [facility] | [place] [address] | | | SERVICES, CORE | [address] | | | + + + + + OPERATION RECORD (09/03/2012 2:02 PM PST) + + | Transcriptions | + + | David Peter MD - 09/03/2012 12:20 PM PST Date: 09/02/2012ttending | | Surgeon: Alton Hernandez M.D.Phone Triage Specialist(s): David | | TAQUERIA Peterreoperative Diagnosis(es):1. Left [...] by | | Dr. Jerald Don in [place] on December 10, 2011. At that time, [...] the reamers. We then used our canal day care worker | | to thoroughly wash out the [...] Hernandez, | | Thiago, M.Engr.General Orthopaedics, Trauma JUAN C / [id number] / [id number] / [id number] /D: | | 09/02/2012T: 09/03/2012 | | | | | + + X-RAY PORTABLE CHEST 1 VIEW (09/03/2012 9:51 AM PST) + + + + + + | Component | Value | Ref Range | Performed | Pathologist | | | | | At | Signature | + + + + + + | X-RAY | STUDY: AL CHEST 1 VIEW | | | | [...] Tiny | | | | | | Fuss 09/03/2012 13:25 PM | | | | [...] + +---------+ + + IP CONSULT TO JOHN TOLEDO (09/03/2012 9:16 AM PST) + + + | Narrative | Performed At | + + + | Adriana Torrez 09/03/2012 9:16 AM PICC INSERTION | | | DOCUMENTATION NOTE Today | | | | | | s Date: 09/03/2012 Start Time: 0900 Patient Location (Unit/Room #): | | | 9k Diagnosis: [id number] Osteomyelitis of knee region [id number] AVN | | | (avascular necrosis of bone) [id number] Pathologic fracture of tibia or | | | fibula 442422 Septic arthritis of knee, left Indications: (Select [...] Lot # (or | | | Sticker): [id number] INSERTION SITE: - Basilic Left Local | [...] 09/03/2012Start Time: 0900Patient Location (Unit/Room #): 9kDiagnosis: 937416 | | Osteomyelitis of knee [id number] AVN (avascular necrosis of bone)029075 Pathologic | | fracture of tibia or [id number] Septic arthritis of knee, leftIndications: (Select all [...] at all times.PICC CATHETERProduct | | Name: KrystianLisction: Darian Fr60cm Llkd1wd TrimmedLot # (or Sticker): | | [id number] SITE: - BasilicLeftLocal anesthetic used: lidocaineSedation used: [...] |8cm Trimmed | |Lot # (or Sticker): [id number] | | | |INSERTION SITE: - Basilic [...] + + | [facility] | [address] | [place] [address] | | | SERVICES, CORE | PARK [...] | + + + + + | [facility] | [address] | [place] [address] | | | SERVICES, ELLIE | [address] | | | [...] | | | | | | Jose Marquis, | | | | | | ThiagoAuthor: [...] | | | | | | Radiologists: Jsoe | | | | | | Thiago [...] | | + +---------+ + + | [facility] DEPARTMENT OF | | | | | [...] | | | Final SMEAR:No | | [place] | | | | fungal elements seen [...] + | [facility] - | [address] | [place] [address] | | | [place] | | | | + + + [...] | | Final SMEAR:AFB not | | [place] | | | | detected source: 10) [...] | + + + + + | [facility] - | [address] | [place] [address] | | | [place] | | | [...] + | [facility] - | [address] | [place] [address] | | | [place] | | | | + + + [...] | | Final SMEAR:AFB not | | [place] | | | | detected source: left [...] | + + + + + | [facility] - | [address] | [place] [address] | | | [facility] | | | | + + + [...] + | [facility] - | [address] | [place] [address] | | | [place] | | | | + + + [...] + | [facility] - | [address] | [place] [address] | | | [place] | | | [...] | + + + + + | [facility] - | [address] | [place] [address] | | | [place] | | | | + + + [...] | | Final SMEAR:AFB not | | [place] | | | | detected source: left [...] | + + + + + | [facility] - | [address] | [place] [address] | | | [place] | | | | + + + [...] | | | | | not C. aayushneryium | | | | | | Presumptive [...] | + + + + + | [facility] - | [address] | [place] [address] | | | [place] | | | [...] | | | Final SMEAR:No | | [place] | | | | fungal elements seen [...] + | [facility] - | [address] | [place] [address] | | | [place] | | | | + + + [...] | | Final SMEAR:AFB not | | [place] | | | | detected source: left [...] | + + + + + | [facility] - | [address] | [place] [address] | | | [place] | | | [...] | + + + + + | [facility] - | [address] | [place] [address] | | | [place] | | | [...] + | [facility] - | [address] | [place] [address] | | | [place] | | | [...] | | Final SMEAR:AFB not | | [facility] | | | | detected source: left [...] + | [facility] - | [address] | [place] [address] | | | [place] | | | [...] + | [facility] - | [address] | [place] [address] | | | [place] | | | [...] + + + + | [facility] - | [address] | [place] [address] | | | [place] | | | | + + + [...] [place] | | | | detected source: left [...] + | [facility] - | [address] | [place] [address] | | | [place] | | | [...] | + + + + + | [facility] - | [address] | [place] [address] | | | [place] | | | | + + + [...] | + + + + + | [facility] - | [address] | [place] [address] | | | [place] | | | | + + + [...] [place] | | | | detected source: left [...] + | [facility] - | [address] | [place] [address] | | | [place] | | | | + + + [...] | | | RESULT | | | [facility] | | | | Final GRAM STAIN:No | | [place] | | | | squamous epithelial | [...] + | [facility] - | [address] | [place], [place] [address] | | | [place] | | | [...] + | [facility] - | [address] | [place] [address] | | | [place] | | | [...] | | Final SMEAR:AFB not | | [place] | | | | detected source: 3) [...] + | [facility] - | [address] | [place] [address] | | | [place] | | | [...] + | [facility] - | [address] | [place] [address] | | | [place] | | | | + + + [...] + | [facility] - | [address] | [place] [address] | | | [place] | | | [...] + | [facility] - | [address] | [place] [address] | | | [place] | | | [...] + | [facility] - | [address] | [place] [address] | | | [place] | | | [...] + | [facility] - | [address] | [place] [address] | | | [place] | | | | + + + [...] | | Final SMEAR:AFB not | | [place] | | | | detected source: left [...] + | [facility] - | [address] | [place] [address] | | | [place] | | | | + + + [...] + | [facility] - | [address] | [place] [address] | | | [place] | | | | + + + [...] | | | Final CULTURE | | [place] | | | | RESULT:No growth | [...] + | [facility] - | [address] | [place] [address] | | | [place] | | | | + + + + + LAB REPORTS (09/02/2012 12:00 AM PST) + + + | Narrative | Performed At | + + + | | | | | | + + + + + | Procedure Note | + + | He Layne - 09/15/2012 11:16 AM PST | + [...] by: | | | | | | Shanae Gutierrez PCelestineACelestine | | | | | | (ASCP)and [...] | | | | | | name(initials DH) and: | | | | | | [...] Steiner | | | | | | Mikie | | | | | | julisa [...] | + + + + + | [facility] | [address] | [place] [address] | | | PATHOLOGY | [address] | | | + [...]
--- OUTSIDE RECORDS SUMMARY | ~2019-12-16 | XMS | Encounter Summary ---
Demographics + + + | Address | [address] | | | [place] [address] | + + + | Home Phone [...] Author + + + | Author | [facility] | + + + | Organization | [facility] | + + + | Address | Unknown | + + + | Phone | Unavailable | + + + Support + + + + + | Name | Relationship | Address | Phone | + + + + + | Grisel Marc | ECON | [address] | | | | | [place] | | | | | [address] | | + + + + + Care Team Providers + +------+ + | Care Cofounder Name | Role | Phone | + [...] | | | | | | [place] [address] | | | +--------+ + + + [...]
--- OUTSIDE RECORDS SUMMARY | ~2019-12-16 | XMS | Encounter Summary ---
Demographics + + + | Address | [address] | | | [place] [address] | + + + | Home Phone [...] [place] | | | | | [address] | | + + + + + Care Team Providers + +------+ + | Care Ward Service Supervisor Name | Role | Phone | + [...]
--- OUTSIDE RECORDS SUMMARY | ~2019-12-16 | XMS | Encounter Summary ---
Demographics + + + | Address | [address] | | | [place] [address] | + + + | Home Phone [...] | Author | [facility] | + + + | Organization | [facility] | + + + | Address | Unknown | + + + | Phone | Unavailable | + + + Support + + + + + | Name | Relationship | Address | Phone | + + + + + | Grisel Marc | ECON | [address] | | | | | [place] | | | | | [address] | | + + + + + Care Team Providers + +------+ + | Care Wind Turbine Erector Name | Role | Phone | + +------+ + | Adilia Bob COURT TRANSCRIBER | PCP | | + +------+ + Encounter Details +--------+ + + + + | Date | Type | Department | Care Team | Description | +--------+ + + + + | 03/10/ | Oil Field Technician | Orthopaedics at | Alton Hernandez MD | Osteomyelitis of | | 2012 | | [facility] [address] | | knee region (HCC) | | | | [address] | | (Primary Dx); | | | | Mailcode: [id number] | | Pathologic fracture | | | | [facility] | | of tibia or fibula | | | | [place], [place] | | | | | | [address] | | | | | | [phone] | | | +--------+ + + + [...] | | + +---------+ + + | [facility] DEPARTMENT OF | | | [...]
--- OUTSIDE RECORDS SUMMARY | ~2019-12-16 | XMS | Encounter Summary ---
Demographics + + + | Address | [address] | | | [place] [address] | + + + | Home Phone | | + + + | Preferred Language | Unknown | + + + | Marital Status | Single | + + + | Jewish Affiliation | LUT | + + + | Race | White | + + + | Ethnic Group | Not or | + + + Author + + + | Author | [facility] | + + + | Organization | [facility] | + + + | Address | Unknown | + + + | Phone | Unavailable | + + + Support + + + + + | Name | Relationship | Address | Phone | + + + + + | Grisel Marc | ECON | [address] | | | | | [place] | | | | | [address] | | + + + + + Care Team Providers + +------+ + | Care Windows Desktop Engineer Name | Role | Phone | + [...] | +--------+ + + + + | 09/24/ | High Pressure Kettle Operator | Infectious | Brigid Hardy | | | 2012 | | Diseases at [facility] | L, [place] | | | | | [address] | | | | | | [facility] | | | | | | Pavilion, 3rd floor | | | | | | [place], [place] | | | | | | [address] | | | | | | [phone] | | | +--------+ + + + [...]
--- OUTSIDE RECORDS SUMMARY | ~2019-12-16 | XMS | Encounter Summary ---
Demographics + + + | Address | [address] | | | [place] [address] | + + + | Home Phone [...] + | Grisel Marc | ECON | [address] | | | | | [place] | | | | | [address] | | + + + + + Care Team Providers + +------+ + | Care Plywood Stock Grader Name | Role | Phone | [...] | | | Orthopaedic Surgery | Blvd [place], [place] | chronicity (Primary | | | | [address] | [address] | Dx); Tears of | | | | [place], [place] | [phone] | meniscus and | | | | [address] | | anterior cruciate | | | | [phone] | | ligament of left | | [...] Marc is a 28 y.o. female from [place] who presents to the office today for [...] was referred fo r an MRI in [place] to evaluate this further. Her MRI description [...] tibial and femur MRI left knee from [facility] in [place] demonstrates Chronic ACL tear and medial join [...] tibial plateau fracture requiring multiple surgeries and special education coordinator IV antibiotics. Gisselle connolly was doing well until recent hyperextension injury. We reviewed detail of MRI including ACL tear, medial meniscus tear and medial cartilage loss. Risks of ACL reconstruction include i nfection and potentially continued pain/worsening of medial compartment arthritis. I will re view case with Dr Saba. Can potentially refer to [facility] if she is interested in ACL recon. Follow up: w/ Jayant Blue PA-C [facility] Orthopaedics and Rehabilitation Orthopaedic Physician Casework Specialist [facility] [address] [place] [address] Office: [phone] documented in this e ncounter Plan of [...]
--- OUTSIDE RECORDS SUMMARY | ~2019-12-16 | XMS | Encounter Summary ---
Demographics + + + | Address | [address] | | | [place] [address] | + + + | Home Phone | | + + + | Preferred Language | Unknown | + + + | Marital Status | Single | + + + | Congregational Affiliation | LUT | + + + | Race | White | + + + | Ethnic Group | Not or | + + + Author + + + | Author | [facility] | + + + | Organization | [facility] | + + + | Address | Unknown | + + + | Phone | Unavailable | + + + Support + + + + + | Name | Relationship | Address | Phone | + + + + + | Grisel Marc | ECON | [address] | | | | | [place] | | | | | [address] | | + + + + + Care Team Providers + +------+ + | Care Wage Analyst Name | Role | Phone | + [...] | | | | | region ([facility] | Associates | [address] [place], | | | | | AVN | [address] | [place] | | | | | (avascular | [address] | [address] | | | | | necrosis of | [place], | | | | | | bone) ([facility]) | [place] [address] | | | | | | Pathologic | Phone: | | | | | | fracture of | [phone] | | | | | | tibia or | Fax: | | | | | | fibula | [phone] | | | | | | Septic | | | | | | | 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| | | | | | knee, left | | | | | | | ([facility]) | | | | | | | Procedures | | | | | | | REQUEST TO | | | | | | | SURGERY | | | | | | | FORM SETTER SUPERVISOR | | | | | | | NM PARTIAL | | | | | | | REMOVAL OF | | | | | | | TIBIA NM | | | | | | | INSERTION | | | | | | | DRUG IMPLANT | | | | | | | DEVICE NM | | | | | | | KNEE | | | | | | | SCOPE,SHAVE | | | | | | | ARTICULAR | | | | | | | CART NM | | | | | | | [...] | left (HCC) | | | | [place], [place] | | | | | | [address] | | | | | | [phone] | | | +--------+---------+ + + + [...] Intraoperative Consult Diagnosis confirmed by: Kaushik Duong ([facility]) and Khushi Romero M.D./Pathologist ASSESSMENT: [...] separate note for details). DARRICK BUITRAGO MD [facility] ORTHOPA[facility]ICS [facility] REHABILITATION [address] [place] [address] Mailcode: Pv430 [place] [id number] Basia Vivar MA - 02/2013 3:15 PM [...]
--- OUTSIDE RECORDS SUMMARY | ~2019-12-16 | XMS | Encounter Summary ---
Demographics + + + | Address | [address] | | | [place] [address] | + + + | Home Phone [...] [place] | | | | | [address] | | + + + + + Care Team Providers + +------+ + | Care Cloud Subject Matter Expert Name | Role | Phone | + [...] | | | | | | [address], [facility] | | | | | | [place], [place] | | | | | | [address] | | | | | | [phone] | | | +--------+ + + + [...] / | | | | | | ALURA QUINTERO | | | | | | [...]
--- OUTSIDE RECORDS SUMMARY | ~2019-12-16 | XMS | Encounter Summary ---
Demographics + + + | Address | [address] | | | [place] [address] | + + + | Home Phone [...] Author + + + | Author | [facility] | + + + | Organization | [facility] | + + + | Address | Unknown | + + + | Phone | Unavailable | + + + Support + + + + + | Name | Relationship | Address | Phone | + + + + + | Grisel Marc | ECON | [address] | | | | | [place] | | | | | [address] | | + + + + + Care Team Providers + +------+ + | Care Peanut Grader Name | Role | Phone | [...] + + | 09/02/ | Hospital | [facility] [address] | Alton Hernandez MD | | | 2012 - | Encounter | [address] | | | | | | [place] | | | | 09/05/ | | [place] [address] | | | | 2012 | | [phone] | | | +--------+ + + + [...] Angel MD - 09/10/2012 8:12 AM PST ON LICENSE OF [facility] DEPART[facility] OF [facility]THOPAEDICS & REHABILITATION INPATIENT HOSPITAL DISCHARGE SUMMARY & INTERDISCIPLINARY INSTRUCTIONS Patient: Sandy Marc CSN: [id number] Admission Date: 09/02/2012 Discharge Date: 09/05/2012 Attending Physician: Alton Hernandez MD PCP: SAEED Presley Service: [facility] Orthopaedics & Rehabilitation Diagnoses Principal Final Diagnosis: [...] for > 5 years. , Historical Med [facility] Orthopaedic Service Pain Policy At the 6-week [...] our pleasure. David Peter MD Pager # [phone] documented in this enc ounter Discharge Instructions Instructions Sally Gupta RN - 09/04/2012Formatting of this note might be different f rom the original. ADDITIONAL INFORMATION: [facility] will provide IV antibiotics and education. They can be r eached at: [phone]. You will need to go to [facility] ([phone] - Unit C) for PICC line dressin [...] Arthritis: After Your Visit", log into your [employer] account at [email or web address]. You can enter [id number] in the [employer]" search box. Not on Mis Descuentost? Review the MyChart section of your After Visit Summary for directions on ho w to sign up. [phone] [employer]. Care instructions adapted under license by [facility] [employer] [facility] [employer] [place]. This care instruction is for use with your licensed healthcar e professional. If you have questions about a medical condition or this instruction, always ask your healthcare professional. [employer] disclaims any warranty or liabili ty for your use of this information. Content Version: 9.5.38752; Last Revised: July 18, 2011 Patient Education [...] provider under separate cover. Anticipated OPAT Setting: [facility] [phone] f: [phone] ID/OPAT Clinic follow-up: OPAT clinic visit in 1-2 weeks after discharge in conjunction wit h [facility] Orthopedic Service. We will call to schedule this appointment after patient is disch arged. Interdisciplinary Communication: Please notify OPAT clinic 24-48 hours prior to discharge b y calling [phone] (We need anticipated discharge date & where patient is going; i.e. name, ph one, and fax for home infusion vendor, senior care facility, or daily outpatient infusio center providing outpatient antibiotic therapy services.) [facility] Department of Infectious Disease Outpatient IV Antibiotic Therapy Clinic (OPAT) Pager ID: [phone] [facility]. Mail Code L457 [place] [address] OPAT teaching note: Education and training for patient self management with a PICC line and extended use IV antibiotics I received an OPAT Clinic Consult from the Inpatient Infectious Diseases Service. I have re viewed the records and introduced myself to Sandy Marc today. I explained that I am from the OPAT (Outpatient Parenteral Antibiotic Treatment) team, an out-patient branch of [facility] Infectious Diseases team that has been guiding [...] symptoms immediately, and if unable to contact [facility] or the infus ion service provider, then to present to the nearest ED. I verified that the patient has a primary care provider, and that they will follow-up with them following this hospitalization in regards to other medical issues such as chronic pain, diabetes, or high blood pressure for which we do not provide any care. I provided the patient with the [facility] welcome letter that reiterates the above teaching. I spent 45 minutes in education and training in patient self management for IV antibiotic a nd PICC line use with greater than 50% spent on counseling and/or coordination of care. [facility] DEPARTMENT: IDC INFECT DIS CONSULT - [phone] Place of Service: Inpatient Date of Service: 09/04/2012 CSN: [id number] Suggested Modifier: OPATC David Angel MD - [...] made with LENCHO Peter MD Pager # [phone] David Angel MD - 09/03/2012 7:53 AM [...] 6 weeks David Peter MD Pager # [phone] Malathi Mccauley MD - 09/03/2012 1:27 AM [...] See brief op note MALATHI BRYANT MD [facility] [place] Department of Orthopaedics & Rehabilitation [address] [place] [address] Mail Code: OP31 [facility] 19178 documented in this e ncounter Plan of [...] + + + | IP CONSULT TO [facility] | Routin | 09/03/2012 | | [...] + + + + + | [facility] | [address] | [place] [address] | | | SERVICES, CORE | JOY [...] [facility] | [address] | [place] [address] | | | SERVICES, CORE | PARK [...] + + + + + | [facility] | [address] [facility] | [place] [address] | | | SERVICES, [facility] | JOY ZAMORA | | | + + + + + OPERATION RECORD (09/03/2012 2:02 PM PST) + + | Transcriptions | + + | David Peter MD - 09/03/2012 12:20 PM PST Date: 09/02/2012ttending | | Surgeon: [place] Hernandez M.D.Setter Induction Heating Equipment(s): David | | TAQUERIA Peterreoperative Diagnosis(es):1. Left [...] by | | Dr. Jerald Don in [place] on December 10, 2011. At that time, [...] the reamers. We then used our canal charge manager | | to thoroughly wash out the [...] | | Thiago, M.Engr.General Orthopaedics, Trauma / [id number] / [id number] / [id number] /D: | | 09/02/2012T: 09/03/2012 | | | | | + + X-RAY PORTABLE CHEST 1 VIEW (09/03/2012 9:51 AM PST) + + + + + + | Component | Value | Ref Range | Performed | Pathologist | | | | | At | Signature | + + + + + + | X-RAY | STUDY: NE CHEST 1 VIEW | | | | [...] | Performed At | + + + Jose Enrique Torrez 09/03/2012 9:16 AM PICC INSERTION | | | DOCUMENTATION NOTE Today | | | | | | s Date: 09/03/2012 Start Time: 0900 Patient Location (Unit/Room #): | | | 9k Diagnosis: [id number] Osteomyelitis of knee region 103543 AVN | | | (avascular necrosis of bone) 503343 Pathologic fracture of tibia or | | | fibula 214938 Septic arthritis of knee, left Indications: (Select [...] Lot # (or | | | Sticker): [id number] INSERTION SITE: - Basilic Left Local | [...] 09/03/2012Start Time: 0900Patient Location (Unit/Room #): 9kDiagnosis: [id number] | | Osteomyelitis of knee [id number] AVN (avascular necrosis of bone)026233 Pathologic | | fracture of tibia or vuyxbq363794 Septic arthritis of knee, leftIndications: (Select all [...] at all times.PICC CATHETERProduct | | Name: Lobo: Single4 Fr60cm [id number] TrimmedLot # (or Sticker): | | [id number] SITE: - BasilicLeftLocal anesthetic used: lidocaineSedation used: [...] |8cm Trimmed | |Lot # (or Sticker): [id number] | | | |INSERTION SITE: - Basilic [...] + + + + + | [facility] | [address] | [place] [address] | | | SERVICES, CORE | JOY [...] + + + + + | [facility] | [address] | [place] [address] | | | MERCEDES, ELLIE | JOY [...] | | + +---------+ + + | [facility] DEPARTMENT OF | | | | [...] | | + +---------+ + + | [facility] DEPARTMENT OF | | | | [...] | | | Final SMEAR:No | | [facility] | | | | fungal elements seen [...] + | [facility] - | [address] | [place] [address] | | | [facility] | | | | + + + [...] + | [facility] - | [address] | [place] [address] | | | [place] | | | [...] + | [facility] - | [address] | [place] [address] | | | [place] | | | | + + + [...] + | [facility] - | [address] | [place] [address] | | | [place] | | | | + + + [...] | | RESULT | Tissue | | [facility] - | | | | Final SMEAR:No | | [place] | | | | fungal elements seen [...] + | [facility] - | [address] | [place] [address] | | | [place] | | | [...] | | | | | not C. mohsenium | | | | | | Presumptive [...] | + + + + + | [facility] - | [address] | [place] [address] | | | [place] | | | [...] + | [facility] - | [address] | [place] [address] | | | [place] | | | | + + + [...] | + + + + + | [facility] - | [address] | [place] [address] | | | [place] | | | [...] | + + + + + | [facility] - | [address] | [place] [address] | | | [place] | | | | + + + [...] | | | Final SMEAR:No | | [facility] | | | | fungal elements seen [...] + | [facility] - | [address] | [place] [address] | | | [facility] | | | | + + + [...] | | Final SMEAR:AFB not | | [place] | | | | detected source: left [...] + | [facility] - | [address] | [place] [address] | | | [place] | | | [...] + | [facility] - | [address] | [place] [address] | | | [place] | | | [...] + | [facility] - | [address] | [place] [address] | | | [place] | | | | + + + [...] | | Final SMEAR:AFB not | | [facility] | | | | detected source: left [...] | + + + + + | [facility] - | [address] | [place] [address] | | | [facility] | | | | + + [...] + | [facility] - | [address] | [place] [address] | | | [place] | | | | + + + [...] | | | Final SMEAR:No | | [facility] | | | | fungal elements seen [...] + | [facility] - | [address] | [place] [address] | | | [place] | | | [...] | | Final SMEAR:AFB not | | [facility] | | | | detected source: left [...] + | [facility] - | [address] | [place] [address] | | | [place] | | | | + + + [...] + | [facility] - | [address] | [place] [address] | | | [place] | | | | + + + [...] | + + + + + | [facility] - | [address] | [place] [address] | | | [place] | | | [...] + | [facility] - | [address] | [place] [address] | | | [place] | | | | + + + [...] | | Final GRAM STAIN:No | | [facility] | | | | squamous epithelial | [...] + | [facility] - | [address] | [place] [address] | | | [place] | | | | + + + [...] | | | Final SMEAR:No | | [place] | | | | fungal elements seen [...] + | [facility] - | [address] | [place] [address] | | | [place] | | | | + + + [...] + | [facility] - | [address] | [place] [address] | | | [place] | | | [...] | | Final GRAM STAIN:No | | [facility] | | | | squamous epithelial | [...] + | [facility] - | [address] | [place] [address] | | | [place] | | | | + + + [...] | | | Final SMEAR:No | | [facility] | | | | fungal elements seen [...] + | [facility] - | [address] | [place] [address] | | | [place] | | | [...] + | [facility] - | [address] | [place] [address] | | | [facility] | | | | + + + [...] | + + + + + | [facility] - | [address] | [place] [address] | | | [place] | | | [...] + | [facility] - | [address] | [place] [address] | | | [place] | | | [...] | | Final SMEAR:AFB not | | [facility] | | | | detected source: left [...] + | [facility] - | [address] | [place] [address] | | | [place] | | | | + + + [...] | + + + + + | [facility] - | [address] | [place] [address] | | | [place] | | | [...] | | | Final CULTURE | | [facility] | | | | RESULT:No growth | [...] + | [facility] - | [address] | [place] [address] | | | [place] | | | | + + + [...] | | | | | | Shanae Gutierrez, P.A. | | | | | | (ASCP)and [...] Steiner | | | | | | M.LouPathologistElectroni | | | | | | julisa [...] | + + + + + | [facility] | [address] | [place] [address] | | | PATHOLOGY | [address] | | | + + + + + documented in this encounter Visit Diagnoses + + | Diagnosis | + + | Osteomyelitis of knee region (HCC) - Primary Unspecified osteomyelitis, lower leg | + + | AVN (avascular necrosis of bone) ([facility]) Aseptic necrosis of bone, site unspecified | + + | Pathologic fracture of tibia or fibula Pathologic fracture of tibia and fibula | + + | Septic arthritis of knee, left ([facility]) Pyogenic arthritis, lower leg | + + [...] | EVERY 6 HOURS, First dose on Wed | | PM PST | | [...] | +---+---+ + +---------+ +-----+--------+---+ | cefTRIAXone (aka ROCEPHIN) IV 2 | New Bag | 09/04/19 [...] mL/hr | mL/hr | | | Starting 09/02/12 at 1900, | | PM PST | [...] + +---------+ +------+--------+---+ +---------+ +------+--------+---+ | New | 09/03/19 | 4 mg | mL/hr [...] | | | 2359, Until 09/05/12 at 2108, | | | | | | | nausea/vomiting | | | | | | + +---------+ +---------+--------+---+ +---+---+ | | | +---+---+ + +-------+ + +---+---+ | senna-docusate (aka KORTNEY S) | Given | 09/05/19 | 1 [...] | | | HOURS, First dose on Fri09/03/12 | | PM PST | | | [...]
--- OUTSIDE RECORDS SUMMARY | ~2019-12-16 | XMS | Encounter Summary ---
Demographics + + + | Address | [address] | | | [place] [address] | + + + | Home Phone [...] [place] | | | | | [address] | | + + + + + Care Team Providers + +------+ + | Care Broker Agricultural Produce Name | Role | Phone | + +------+ + | Adilia Bob HEALTH CARE SANITARY TECHNICIAN | PCP | | + +------+ + Reason for Referral Diagnostic Testing (Urgent) +--------+--------+ + + + + | Status | Reason | Specialty | Diagnoses / | Referred By | Referred To | | | | | Procedures | Contact | Contact | +--------+--------+ + + + + | Closed | | Radiology | Diagnoses | | Zzrad Vasc | | | | | Swelling of | [place], | Lab [facility] [address] | | | | | joint of | [place]EN [place] | [address] | | | | | upper arm | [address] | | | | | Encounter | [address] Blue | Mailcode: | | | | | for | [address] | [address] | | | | | long-term | [place], [place] | Physician's | | | | | (current) | [address] | Pavilion | | | | | use of | | [place], [place] | | | | | antibiotics | | [address] | | | | | Procedures | | Phone: | | | | | VASC LAB | | [phone] | | | | | UPPER EXT | | Fax: | | | | | PSEUDOANEUR | | [phone] | | | | | COMP LEFT [...] | | | | necrosis of | [facility] | [place] | | | | | bone) ([facility]) | Rd | [address] | | | | | Septic | [place], [place] | [place], | | | | | 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[address] | [place] [address] | | | | | knee, left | | Phone: | | | | | ([facility]) | | [phone] | | | | | Procedures | | Fax: | | | | | CONSULT TO | | [phone] | | | | | INFECTIOUS | [...] Diseases at [facility] | L, PA | upper arm (Primary | | | | [address] | | Dx); Encounter for | | | | Loop Physician's | | long-term (current) | | | | [place], 3rd floor | | use of antibiotics | | | | [place], [place] | | | | | | [address] | | | | | | [phone] | | | +--------+---------+ + + + [...] DISEASES CLINIC FOLLOW UP Primary Care Physician: [facility] [address], [address] [place] [address] Ms. Marc presents to Infectious Diseases Clinic [...] doing rodeo on her horse going around [employer], and she was leaning out away from [employer]. Her legs spontaneously broke with pathological fracture. [...] placement of antibiotic beads 09/03/2012: HIRAM Silva [facility] Operative Findings: We began by performing [...] medullary canal. We then used our canal personal chef to thoroughly washout the intramedullary c anal [...] She was seen in the ER in [place] and had a CT Thor ax [...] a nd follow-up planning. Brigid Hardy PA-C [facility] Department of Infectious Diseases Outpatient IV Antibiotic Therapy Clinic (OPAT) [phone] Pager ID: [phone] [facility] Mail Code V957 [place] [address] documented in this encounter Plan of Treatment [...] + + documented in this encounter Results [facility] VENOUS DUPLEX UPPER EXTREMITY LT (09/29/2012 10:29 AM PST) + + + + + + | Component | Value | Ref Range | Performed | Pathologist | | | | | At | Signature | + + + + + + | V[facility] LAB | UPPER EXTREMITY VENOUS | | [...] | | | | | | ENDY ABCA, | | | | | | M.D. [...] [place] | | | | | | [place] | | | | | | | [...]
--- OUTSIDE RECORDS SUMMARY | ~2019-12-16 | XMS | Encounter Summary ---
Demographics + + + | Address | [address] | | | [place] [address] | + + + | Home Phone [...] Author + + + | Author | [facility] | + + + | Organization | [facility] | + + + | Address | Unknown | + + + | Phone | Unavailable | + + + Support + + + + + | Name | Relationship | Address | Phone | + + + + + | Grisel Marc | ECON | [address] | | | | | [place] | | | | | [address] | | + + + + + Care Team Providers + +------+ + | Care Food Technology Teacher Name | Role | Phone | + +------+ + | Adilia Bob BURGLARY INVESTIGATOR | PCP | | + +------+ + Encounter Details +--------+ + + + + | Date | Type | Department | Care Team | Description | +--------+ + + + + | 10/16/ | Fire Control Technician G | Infectious | Brigid Hardy | Osteomyelitis of | | 2012 | | Diseases at [facility] | L, [place] | knee region (HCC) | | | | [address] | | (Primary Dx) | | | | [address] Phys[address] | | | | | | Pavilion, 3rd floor | | | | | | [place], [place] | | | | | | [address] | | | | | | [phone] | | | +--------+ + + + [...]
--- OUTSIDE RECORDS SUMMARY | ~2019-12-16 | XMS | Encounter Summary ---
Demographics + + + | Address | [address] | | | [place] [address] | + + + | Home Phone [...] [place] | | | | | [address] | | + + + + + Care Team Providers + +------+ + | Care Garde Manger Name | Role | Phone | + [...]
--- OUTSIDE RECORDS SUMMARY | ~2019-12-16 | XMS | Encounter Summary ---
Demographics + + + | Address | [address] | | | [place] [address] | + + + | Home Phone [...] + + | Author | [facility] | + + + | Organization | [facility] | + + + | Address | Unknown | + + + | Phone | Unavailable | + + + Support + + + + + | Name | Relationship | Address | Phone | + + + + + | Grisel Marc | ECON | [address] | | | | | [place] | | | | | [address] | | + + + + + Care Team Providers + +------+ + | Care Stem Shaper Name | Role | Phone | + +------+ + | Hina Peterson | PCP | | + +------+ + Encounter Details +--------+ + + + + | Date | Type | Department | Care Team | Description | +--------+ + + + + | 12/05/ | Hospital | [facility] | | | | 2015 | Encounter | Sports Medicine & | | | | | | Orthopaedic Surgery | | | | | | [address] | | | | | | [place] | | | | | | [address] | | | | | | [phone] | | | +--------+ + + + [...]
--- OUTSIDE RECORDS SUMMARY | ~2019-12-16 | XMS | Encounter Summary ---
Demographics + + + | Address | [address] | | | [place] [address] | + + + | Home Phone [...] [place] | | | | | [address] | | + + + + + Care Team Providers + +------+ + | Care Boat Carpenter Mechanic Name | Role | Phone | [...] [facility] | | | | | | [address] | | | | | | [address] Phys[address] | | | | | | [address], [facility] | | | | | | [place], [place] | | | | | | [address] | | | | | | [phone] | | | +--------+ + + + [...]
--- OUTSIDE RECORDS SUMMARY | ~2019-12-16 | XMS | Encounter Summary ---
Demographics + + + | Address | [address] | | | [place] [address] | + + + | Home Phone [...] [place] | | | | | [address] | | + + + + + Care Team Providers + +------+ + | Care Flight Kitchen Manager Name | Role | Phone | [...] | | | synovectomy | Street | [facility] | | | | | | [address] | [address] [place], | | | | | | [place], | [place] | | | | | | [place] [address] | [address] | | | | | | Phone: | | | | | | | [phone] | | | | | | | Fax: | | | | | | | [phone] | | +--------+--------+ + + + + [...] [address] | | | | | | [place], [place] | | | | | | [address] | | | | | | [phone] | | | +--------+---------+ + + + [...] contrast or a knee aspi ration in [facility] but she elcted to come here for the aspiration and so this joint ap pointment with Dr. Peck from [place] was scheduled. Fortunately the knee stopped hurting [...] seconds capillary refill. Palpable dorsalis pedis and construction project assistant ior tibial pulses. X-RAYS: Reviewed x-rays with [...] today for additional details. DARRICK BUITRAGO MD [facility] [address] [place] [address] Mailcode: [id number] [place] [address] documented in this en counter Plan of Treatment Not on filedocumented as of this encounter Visit Diagnoses + + | Diagnosis | + + | Osteomyelitis of knee region (HCC) - Primary Unspecified osteomyelitis, lower leg | + + documented in this encounter
--- OUTSIDE RECORDS SUMMARY | ~2019-12-16 | XMS | Encounter Summary ---
Demographics + + + | Address | [address] | | | [place] [address] | + + + | Home Phone | | + + + | Preferred Language | Unknown | + + + | Marital Status | Single | + + + | Anabaptist Affiliation | LUT | + + + [...] + | Grisel Marc | ECON | [address] | | | | | [place] | | | | | [address] | | + + + + + Care Team Providers + +------+ + | Care Mathematics Improvement Teacher Name | Role | Phone | + +------+ + | Hina Peterson | PCP | | + +------+ + Encounter Details +--------+ + + + + | Date | Type | Department | Care Team | Description | +--------+ + + + + | 05/31/ | Document-Sc | [facility] | Kishor Monge, | | | 2019 | anned | Sports Medicine & | MD Selene Foy | | | | | Orthopaedic Surgery | [place] | | | | | [address] | [address] | | | | | [place] | [phone] | | | | | [address] | | | | | | [phone] | | | +--------+ + + + [...]
--- OUTSIDE RECORDS SUMMARY | ~2019-12-16 | XMS | Encounter Summary ---
Demographics + + + | Address | [address] | | | [place] [address] | + + + | Home Phone [...] [place] | | | | | [address] | | + + + + + Care Team Providers + +------+ + | Care Bicycle Inspector Name | Role | Phone | + [...] | | | synovectomy | Street | [facility] | | | | | | [address] | Rd [place], | | | | | | [place], | [place] | | | | | | [place] [address] | [address] | | | | | | Phone: | | | | | | | [phone] | | | | | | | Fax: | | | | | | | [phone] | | +--------+--------+ + + + + [...] [address] | | | | | | [place], [place] | | | | | | [address] | | | | | | [phone] | | | +--------+---------+ + + + [...] or a knee aspi ration in [facility] but she elcted to come here for the aspiration and so this joint ap pointment with Dr. Peck from [place] was scheduled. Fortunately the knee stopped hurting [...] seconds capillary refill. Palpable dorsalis pedis and cream tester ior tibial pulses. X-RAYS: Reviewed x-rays with [...] today for additional details. DARRICK BUITRAGO MD [facility] [address] [place] [address] Mailcode: [id number] [place] [address] documented in this en counter Plan of Treatment Not on filedocumented as of this encounter Visit Diagnoses + + | Diagnosis | + + | Osteomyelitis of knee region (HCC) - Primary Unspecified osteomyelitis, lower leg | + + documented in this encounter
--- OUTSIDE RECORDS SUMMARY | ~2019-12-16 | XMS | Encounter Summary ---
Demographics + + + | Address | [address] | | | [place] [address] | + + + | Home Phone [...] [place] | | | | | [address] | | + + + + + Care Team Providers + +------+ + | Care Social Studies Department Chair Name | Role | Phone | + [...] | | | | necrosis of | [facility] | [place] | | | | | bone) ([facility]) | Rd | [address] | | | | | Septic | [place], [place] | [place], | | | | | 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[address] | [place] [address] | | | | | knee, left | | Phone: | | | | | ([facility]) | | [phone] | | | | | Procedures | | Fax: | | | | | CONSULT TO | | [phone] | | | | | INFECTIOUS | [...] 2013 | Visit | Diseases at [facility] | L, [place] | knee region (HCC) | | | | [address] | | (Primary Dx); | | | | Loop Physician's | | Encounter for | | | | Pavilion, 3rd floor | | long-term (current) | | | | [place], [place] | | use of antibiotics | | | | [address] | | | | | | [phone] | | | +--------+---------+ + + + [...] documented as of this encounter Progress Notes Hayley JURADO, Brigid Johnson - 09/17/2012 3:02 PM PST INFECTIOUS DISEASES CLINIC FOLLOW UP Primary Care Physician: [place] [address] [place] [address], [address] [place] [address] Ms. Marc presents to Infectious Diseases Clinic [...] doing rodeo on her horse going around [place], and she was leaning out away from t he [place]. Her legs spontaneously broke with pathological fracture. [...] placement of antibiotic beads 09/03/2012: HIRAM Silva [facility] Operative Findings: We began by performing [...] amedullary canal. We then used our canal folder operator to thoroughly washout the intramedullary canal as [...] She was seen in the ER in [place] and had a CT Thor ax that [...] needs urgent attention. I asked the pa ana to report any of these symptoms immediately, [...] an d follow-up planning. Brigid Hardy PA-C [facility] Department of Infectious Diseases Outpatient IV Antibiotic Therapy Clinic (OPAT) [phone] Pager ID: [phone] [facility] Mail Code O757 [place] [address] documented in this encounter Plan of Treatment [...]
--- OUTSIDE RECORDS SUMMARY | ~2019-12-16 | XMS | Encounter Summary ---
Demographics + + + | Address | [address] | | | [place] [address] | + + + | Home Phone [...] [place] | | | | | [address] | | + + + + + Care Team Providers + +------+ + | Care Preparation Plant Repairer Name | Role | Phone | [...] + + + + | 09/07/ | Grassroots Organizer | Infectious | Brigid Hardy | | | 2012 | | [facility] at [facility] | L, [place] | | | | | [address] | | | | | | Loop [address] | | | | | | Pavilion, 3rd floor | | | | | | [place], [place] | | | | | | [address] | | | | | | [phone] | | | +--------+ + + + [...]
--- OUTSIDE RECORDS SUMMARY | ~2019-12-16 | XMS | Encounter Summary ---
Demographics + + + | Address | [address] | | | [place] [address] | + + + | Home Phone [...] Author + + + | Author | [facility] | + + + | Organization | [facility] | + + + | Address | Unknown | + + + | Phone | Unavailable | + + + Support + + + + + | Name | Relationship | Address | Phone | + + + + + | Grisel Marc | ECON | [address] | | | | | [place] | | | | | [address] | | + + + + + Care Team Providers + +------+ + | Care Environmental Resource Specialist Name | Role | Phone | [...] Visit | Medicine Clinic at | R, LANGUAGE INSTRUCTOR [address] | pre-operative | | | | [facility] 4th Floor Day | [address] | examination (Primary | | | | Stay [address] | [place], [place] | Dx); Septic | | | | [address] | [address] | arthritis of knee, | | | | Mailcode: [id number] | [phone] | left ([facility]); 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 Surgery Check in Locations Admitting [facility], ninth floor [facility] Surgery Check in Time: The Preoperative [...] it is after office hours, call the [facility] jewelry drilling machine operator at [phone] and ask them to page him or h er. Preparing For Your Surgery Video -- 7 minutes of instructions! If you have access to the Internet and would like to review our instructional video about g etting ready for your procedure day, please follow these directions: Access the [facility] website [email or web address] --> POPULAR RESOURCES --> Patient Guide --> [...] and PMHX. Document will be scanned in DNS:Net. Pulmonary: Within Defined Limits except as noted [...] further investigation and manageme nt. A. Acute AZ within 7 days: no B. Unstable angina/Recent AZ (7- 30 days): no C. Decompensated CHF: [...] no Rate of cardiac , non fatal AZ, non fatal cardiac arrest (RCRI) 0 risk [...] to this patient's care. MAIRA ZHAO NP [facility] PREOPERATIVE MEDICINE CLINIC [address] [place] [address] [phone] signed by Maira Zhao NP at 08/24/2012 [...]
--- OUTSIDE RECORDS SUMMARY | ~2019-12-16 | XMS | Encounter Summary ---
Demographics + + + | Address | [address] | | | [place] [address] | + + + | Home Phone [...] [place] | | | | | [address] | | + + + + + Care Team Providers + +------+ + | Care Er Nurse Name | Role | Phone | + +------+ + | No Pcp Per Patient | PCP | Unavailable | + +------+ + Encounter Details +--------+------+ + + + | Date | Type | Department | Care Team | Description | +--------+------+ + + + | 08/06/ | Lab | Laboratory at [facility] | | Osteomyelitis of | | 2011 | | [address] | | knee region (HCC) | | | | Loop Phys[address]'s | | | | | | [address], 3rd floor | | | | | | [place], [place] | | | | | | [address] | | | | | | [phone] | | | +--------+------+ + + + [...] | + + + + + | [facility] | [address] | [place] [address] | | | ELLIE LONG | JOY [...] + | [facility]IVER[facility] - AIRPORT - | [address] | [place] [address] | | | [place] | | | | + + + [...] | + + + + + | [facility] | [address] [facility] | [place] [address] | | | SERVICES, CORE | JOY [...] | | | LABORATORY | | | SRI LANKAN | | | SERVICES, | | | [...] + + + + + | [facility] | [address] | [place] [address] | | | SERVICES, CORE | [address] | | | + + + + + documented in this encounter Visit Diagnoses + + | Diagnosis | + + | Osteomyelitis of knee region (HCC) Unspecified osteomyelitis, lower leg | + + documented in this encounter"
--- OUTSIDE RECORDS SUMMARY | ~2019-12-16 | XMS | Encounter Summary ---
Demographics + + + | Address | [address] | | | [place] [address] | + + + | Home Phone [...] [place] | | | | | [address] | | + + + + + Care Team Providers + +------+ + | Care Test Department Helper Name | Role | Phone | + +------+ + | Adilia Bob NANNY/HOUSEHOLD MANAGER | PCP | | + +------+ + Encounter Details +--------+ + + + + | Date | Type | Department | Care Team | Description | +--------+ + + + + | 10/13/ | Button Maker And Installer | Orthopaedics at | Alton [place] MD | Osteomyelitis of | | 2012 | | [facility] [address] | | knee region (HCC) | | | | [address] | | (Primary Dx) | | | | Mailcode: [id number] | | | | | | Phys[address] Pavilion | | | | | | [place], [place] | | | | | | [address] | | | | | | [phone] | | | +--------+ + + + [...] | | + +---------+ + + | [facility] DEPARTMENT OF | | | | | RADIOLOGY | | | | + +---------+ + + documented in this encounter Visit Diagnoses + + | Diagnosis | + + | Osteomyelitis of knee region (HCC) - Primary Unspecified osteomyelitis, lower leg | + + documented in this encounter"
--- OUTSIDE RECORDS SUMMARY | ~2019-12-16 | XMS | Encounter Summary ---
Demographics + + + | Address | [address] | | | [place] [address] | + + + | Home Phone | | + + + | Preferred Language | Unknown | + + + | Marital Status | Single | + + + | Methodist Affiliation | LUT | + + + [...] [place] | | | | | [address] | | + + + + + Care Team Providers + +------+ + | Care Plastics Design Engineer Name | Role | Phone | [...] + + + + | 09/04/ | Systems Software Developer | Infectious | Brigid Hardy | | | 2012 | | Diseases at [facility] | L, [place] | | | | | [address] | | | | | | [address] | | | | | | [address], 3rd floor | | | | | | [place], [place] | | | | | | [address] | | | | | | [phone] | | | +--------+ + + + [...]
--- OUTSIDE RECORDS SUMMARY | ~2019-12-16 | XMS | Encounter Summary ---
Demographics + + + | Address | [address] | | | [place] [address] | + + + | Home Phone [...] + | Grisel Marc | ECON | [address] | | | | | [place] | | | | | [address] | | + + + + + Care Team Providers + +------+ + | Care Fur Finisher Seamstress Name | Role | Phone | + [...] | Sports Medicine & | STANTON Johnson [address] [facility] | unspecified | | | | Orthopaedic Surgery | [address] | chronicity (Primary | | | | [address] | [place], [place] | Dx); Rupture of | | | | [place], [place] | [address] | anterior cruciate | | | | [address] | [phone] | ligament of left | | | | [phone] | | knee, subsequent | | | [...] on Smoking cessation and follow up with [facility] when you have quit smoking. [facility] will contact you about the brace. Follow [...] and required multiple surgeries I believe at [facility] to clear this infection over [...] with Dr Saba. She was referred to [facility] for possible osteochondral allograft, reconstruction. The patient has been working on smoking cessation but unfortunately has started to smoke again recently. [facility] will not see the patient until she has documentation of smoking cessation. The patient reports she experienced a pop in her left knee and increased pain on 09/25/2019, she went to [facility] ED in [place], [place] for further evaluation. The patient reports [...] file Gets together: Not on file Attends caodaism service: Not on file Active member of [...] History Narrative Lives with her parents in [place]. Has adequate support should surgery be [...] knee from [facility] in Home demonstrates Chronic ACL tear and medial join [...] She was encouraged to follow up with [facility] for possib le osteochondral allograft and reconstruction surgery. She will continue to work on smoking cessation, as this is required for [facility]. The patient reports she is required [...] 8 weeks Bambi Fried PA-C Orthopedic Physician Supervisor Dock [facility] Orthopaedics and Rehabilitation [facility] Orthopaedics and Sports Medicine [address] [place] [address] Office: [phone] documented in th is encounter Plan of Treatment Not on filedocumented as of this encounter Results X-RAY KNEE 3 VIEWS LEFT (10/07/2019 10:43 AM PST) + + | Specimen | + + | | + + + + + | Narrative | Performed At | + + + | [address] [place] [address] | [facility] | | [place] [address] | DEPARTMENT | | [phone] Name: SANDY MARC (DINORA-EE-L) | RADIOLOGY | | Phys: BAMBI FRIED : 1990 Sex: F | | | CSN: [id number] MR# [id number] Exam Date: | | | 10/07/2019 EXAM: X-RAY KNEE 3 VIEWS LEFT [id number] CLINICAL | | | HISTORY: Left knee [...] proximal | | | tibial metadiaphysis. 2. Xijx-nc-lkqtohfu medial femorotibial joint | | | degeneration. REPORT SIGNED IN OTHER VENDOR SYSTEM | | | 10/08/2019 Reported by: HELENA BARRAZA MD Electronically | | | signed by: HELENA BARRAZA MD Transcribed Date/Time: 10/08/2019 | | | 13:44 Gum Maker: [email or web address] | | + + + + + | Procedure Note | + + | Interface, Radiology Results - 10/08/2019 1:51 PM PST [address] | | [address] [place] [address] | | Name: SANDY MARC (DINORA-EE-L) Phys: BAMBI FRIED : 1990 | | Sex: F CSN: [id number] MR# [id number] Exam Date: 10/07/2019 EXAM:X-RAY | | KNEE 3 VIEWS LEFT [id number] CLINICAL HISTORY:Left knee pain. COMPARISON:06/14/2019 left | [...] in the | | proximal tibial metadiaphysis.2. Pgko-jr-pzdzeeaa medial femorotibial joint | | degeneration. REPORT [...] in the proximal tibial metadiaphysis. | |2. Xith-zm-mktgdbqr medial femorotibial joint degeneration. | | | | | | REPORT SIGNED IN OTHER VENDOR SYSTEM 10/08/2019 | |Reported by: HELENA BARRAZA MD | | | |Electronically signed by: HELENA BARRAZA MD | | | |Transcribed Date/Time: 10/08/2019 13:44 | |Gum Maker: [email or web address] | | | | | | [...]
--- OUTSIDE RECORDS SUMMARY | ~2019-12-16 | XMS | Encounter Summary ---
Demographics + + + | Address | [address] | | | [place] [address] | + + + | Home Phone [...] [place] | | | | | [address] | | + + + + + Care Team Providers + +------+ + | Care Fisher Eel Name | Role | Phone | + [...] [facility] | | | | | | [address] | | | | | | Loop Phys[address] | | | | | | [address], [facility] Floor | | | | | | [place], [place] | | | | | | [address] | | | | | | [phone] | | | +--------+ + + + [...] | | + +---------+ + + | [facility] DEPARTMENT OF | | | | | [...]
--- OUTSIDE RECORDS SUMMARY | ~2019-12-16 | XMS | Encounter Summary ---
Demographics + + + | Address | [address] | | | [place] [address] | + + + | Home Phone [...] Author + + + | Author | [facility] | + + + | Organization | [facility] | + + + | Address | Unknown | + + + | Phone | Unavailable | + + + Support + + + + + | Name | Relationship | Address | Phone | + + + + + | Grisel Marc | ECON | [address] | | | | | [place] | | | | | [address] | | + + + + + Care Team Providers + +------+ + | Care Server Assistant Name | Role | Phone | [...] [address] | | | | | | [place], [place] | | | | | | [address] | | | | | | [phone] | | | +--------+ + + + [...]
--- OUTSIDE RECORDS SUMMARY | ~2019-12-16 | XMS | Encounter Summary ---
Demographics + + + | Address | [address] | | | [place] [address] | + + + | Home Phone [...] [place] | | | | | [address] | | + + + + + Care Team Providers + +------+ + | Care Allergist/Immunologist Physician Name | Role | Phone | + +------+ + | Adilia Bob CERTIFIED MEDICATION TECHNICIAN | PCP | | + +------+ + Encounter Details +--------+ + + + + | Date | Type | Department | Care Team | Description | +--------+ + + + + | 03/10/ | Investment Manager | Orthopaedics at | Alton [place] MD | Osteomyelitis of | | 2012 | | [facility] [address] | | knee region (HCC) | | | | [address] | | (Primary Dx); | | | | Mailcode: [id number] | | Pathologic fracture | | | | [address] | | of tibia or fibula | | | | [place], [place] | | | | | | [address] | | | | | | [phone] | | | +--------+ + + + [...] | | + +---------+ + + | [facility] DEPARTMENT OF | | [...]
--- OUTSIDE RECORDS SUMMARY | ~2019-12-16 | XMS | Encounter Summary ---
Demographics + + + | Address | [address] | | | [place] [address] | + + + | Home Phone [...] [place] | | | | | [address] | | + + + + + Care Team Providers + +------+ + | Care Plant Assigner Name | Role | Phone | + [...] [facility] | | | | | | [address] | | | | | | Loop Phys[address] | | | | | | [address], [facility] Floor | | | | | | [place], [place] | | | | | | [address] | | | | | | [phone] | | | +--------+ + + + [...]
--- OUTSIDE RECORDS SUMMARY | ~2019-12-16 | XMS | Encounter Summary ---
Demographics + + + | Address | [address] | | | [place] [address] | + + + | Home Phone [...] [place] | | | | | [address] | | + + + + + Care Team Providers + +------+ + | Care Land Survey Technician Name | Role | Phone | [...] + + + + | 09/24/ | Railway Traction Line Worker | Infectious | Brigid Hardy | | | 2012 | | Diseases at [facility] | L, [place] | | | | | [address] | | | | | | Loop Physician[address] | | | | | | Pavilion, 3rd floor | | | | | | [place], [place] | | | | | | [address] | | | | | | [phone] | | | +--------+ + + + [...]
--- OUTSIDE RECORDS SUMMARY | ~2019-12-16 | XMS | Encounter Summary ---
Demographics + + + | Address | [address] | | | [place] [address] | + + + | Home Phone [...] [place] | | | | | [address] | | + + + + + Care Team Providers + +------+ + | Care Machine Clothing Replacer Name | Role | Phone | + [...] | [facility] | | | | | [address] | | | | | | Loop Phys[address] | | | | | | [address], 3rd floor | | | | | | [place], [place] | | | | | | [address] | | | | | | [phone] | | | +--------+ + + + [...] | + +---------+ + + | SONIA LAERNESTO GORMAN | | | | + +---------+ + + documented in this encounter Visit Diagnoses Not on filedocumented in this encounter"
--- OUTSIDE RECORDS SUMMARY | ~2019-12-16 | XMS | Encounter Summary ---
Demographics + + + | Address | [address] | | | [place] [address] | + + + | Home Phone [...] [place] | | | | | [address] | | + + + + + Care Team Providers + +------+ + | Care Cellophane Worker Name | Role | Phone | [...] + + + + | 09/07/ | Glass Calibrator | Infectious | Brigid Hardy | | | 2012 | | [facility] | L, [place] | | | | | [address] | | | | | | [address] [facility] | | | | | | Pavilion, 3rd floor | | | | | | [place], [place] | | | | | | [address] | | | | | | [phone] | | | +--------+ + + + [...]
--- OUTSIDE RECORDS SUMMARY | ~2019-12-16 | XMS | Encounter Summary ---
Demographics + + + | Address | [address] | | | [place] [address] | + + + | Home Phone [...] Author + + + | Author | [facility] | + + + | Organization | [facility] | + + + | Address | Unknown | + + + | Phone | Unavailable | + + + Support + + + + + | Name | Relationship | Address | Phone | + + + + + | Grisel Marc | ECON | [address] | | | | | [place] | | | | | [address] | | + + + + + Care Team Providers + +------+ + | Care Defect Repairer Glassware Name | Role | Phone | + [...] | s of knee | Health | [facility] | | | | | region ([facility]) | Associates | Rd [place], | | | | | AVN | [address] | [place] | | | | | (avascular | [address] | [address] | | | | | necrosis of | [place], | | | | | | bone) ([facility]) | [place] [address] | | | | | | Pathologic | Phone: | | | | | | fracture of | [phone] | | | | | | tibia or | Fax: | | | | | | fibula | [phone] | | | | | | Septic | | | | | | | 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| | | | | | knee, left | | | | | | | ([facility]) | | | | | | | Procedures | | | | | | | REQUEST TO | | | | | | | SURGERY | | | | | | | PHYSICIAN PRACTICE CONSULTANT | | | | | | | VA PARTIAL | | | | | | | REMOVAL OF | | | | | | | TIBIA VA | | | | | | | INSERTION | | | | | | | DRUG IMPLANT | | | | | | | DEVICE VA | | | | | | | KNEE | | | | | | | SCOPE,SHAVE | | | | | | | ARTICULAR | | | | | | | CART VA | | | | | | | [...] | left (HCC) | | | | [place], [place] | | | | | | [address] | | | | | | [phone] | | | +--------+---------+ + + + [...] Intraoperative Consult Diagnosis confirmed by: Kaushik Duong ([facility]) and Khushi Romero M.D./Pathologist ASSESSMENT: Doing well [...] [facility] [address] [place] [address] Mailcode: Pv430 [place] [id number] Basia Vivar MA - 02/2013 3:15 PM [...]
--- OUTSIDE RECORDS SUMMARY | ~2019-12-16 | XMS | Encounter Summary ---
Demographics + + + | Address | [address] | | | [place] [address] | + + + | Home Phone [...] Author + + + | Author | [facility] | + + + | Organization | [facility] | + + + | Address | Unknown | + + + | Phone | Unavailable | + + + Support + + + + + | Name | Relationship | Address | Phone | + + + + + | Grisel Marc | ECON | [address] | | | | | [place] | | | | | [address] | | + + + + + Care Team Providers + +------+ + | Care Cable Reeler Name | Role | Phone | + [...] Willis | | | | | | [place], [place] | | | | | | [address] | | | | | | [phone] | | | +--------+ + + + [...] | | e | of knee, left ([facility]) | | + +------+--------+ + + | SYNOVIAL FLUID, | Lab | Routin | Septic arthritis | Ordered: 02/12/2013 | | CRYSTALS | | e | of knee, left ([facility]) | | + +------+--------+ + + | [...]
--- OUTSIDE RECORDS SUMMARY | ~2019-12-16 | XMS | Encounter Summary ---
Demographics + + + | Address | [address] | | | [place] [address] | + + + | Home Phone | | + + + | Preferred Language | Unknown | + + + | Marital Status | Single | + + + | Cheondoism Affiliation | LUT | + + + [...] [place] | | | | | [address] | | + + + + + Care Team Providers + +------+ + | Care Release And Technical Records Clerk Name | Role | Phone | [...] | Infectious | Diagnoses | Mary, | iCsco, | | | | Disease | 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 | | | | | (avascular | [address] | [address] | | | | | necrosis of | [facility] | [place] | | | | | bone) ([facility]) | Rd | [address] | | | | | Septic | [place], [place] | [place], | | | | | 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[address] | [place] [address] | | | | | knee, left | | Phone: | | | | | ([facility]) | | [phone] | | | | | Procedures | | Fax: | | | | | CONSULT TO | | [phone] | | | | | INFECTIOUS | [...] | long-term (current) | | | | [place], [place] | | use of antibiotics | | | | [address] | | | | | | [phone] | | | +--------+---------+ + + + [...] DISEASES CLINIC FOLLOW UP Primary Care Physician: [facility] [address] [place] [address], [address] [place] [address] Ms. Marc presents to Infectious Diseases Clinic [...] doing rodeo on her horse going around [employer], and she was leaning out away from t he [employer]. Her legs spontaneously broke with pathological fracture. [...] placement of antibiotic beads 09/03/2012: HIRAM Silva [facility] Operative Findings: We began by [...] amedullary canal. We then used our canal linoleum layer to thoroughly washout the intramedullary canal as [...] She was seen in the ER in [place] and had a CT Thor ax that [...] an d follow-up planning. Brigid Hardy PA-C [facility] Department of Infectious Diseases Outpatient IV Antibiotic Therapy Clinic (OPAT) [phone] Pager ID: [phone] [facility] Mail Code A057 [place] [address] documented in this encounter Plan of Treatment [...]
--- OUTSIDE RECORDS SUMMARY | ~2019-12-16 | XMS | Encounter Summary ---
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 Surgeries scheduled in the [facility]: registration is located on the 9th floor. Surgeries scheduled in [facility]: registration is located on the 6th floor. Surgeries scheduled in the [facility]: registration is located i n the [facility] on the first floor. For surgeries scheduled to take place at the [facility]: registration is l [...] [facility], please check with your provider before bringing [...] in conjunction with Dr. Jovany almanzar from [place]. Her HPI is copied from her previous [...] plateau fracture by Dr. Jerald Don in [place] on 12/10/11. Calcium phosphate cement was used [...]
--- OUTSIDE RECORDS SUMMARY | ~2019-12-16 | XMS | Encounter Summary ---
Demographics + + + | Address | [address] | | | [place] [address] | + + + | Home Phone [...] [place] | | | | | [address] | | + + + + + Care Team Providers + +------+ + | Care Environmental Geologist Name | Role | Phone | + [...] | | | | Loop Physician's | [place] [address] | | | | | [place], [facility] floor | [phone] | | | | | [place], [place] | | | | | | [address] | | | | | | [phone] | | | +--------+ + + + [...]
--- OUTSIDE RECORDS SUMMARY | ~2019-12-16 | XMS | Encounter Summary ---
Demographics + + + | Address | [address] | | | [place] [address] | + + + | Home Phone [...] + | Grisel Marc | ECON | [address] | | | | | [place] | | | | | [address] | | + + + + + Care Team Providers + +------+ + | Care Housekeeper Nanny Name | Role | Phone | + [...] [place] | | | | | [address] | [address] | | | | | | [phone] | | | | | | | [...] | | Results for this | | [id number] | e | 10:19 AM | | procedure are in the | | | | PST | | results section. | + +--------+ + + + documented in this encounter Results ORT KNEE 3V [id number] (07/14/2015 10:19 AM PST) + + | Specimen | + + | | + + + + + | Narrative | Performed At | + + + | Name: | [facility] | | [place] | DEPARTMENT OF | | Phys: Mars Nicolas MD | RADIOLOGY | | | | | : 1990 Age: 24 Sex: F | | | Acct: [id number] Loc: ORTH | | | | | | Exam Date: 07/14/2015 Status: PRE CLI | | | Radiology No: [id number] | | | Unit No: | | | EXAM# TYPE/EXAM | | | RESULT | | | [id number] ORT/ORT KNEE 3V 73 | | | EXAM: ORT | | | KNEE 3V 02361 CLINICAL HISTORY: | | | Knee pain. [...] | Transcribed Date/Time: 07/14/2015 | | | (8241) Ob/Gyn Physician: FLUENCY PAGE 1 | | | Signed Report | | | | | + + + + + | Procedure Note | + + | Interface, Radiology Results - 12/21/2015 11:29 AM PDT | | Name: SANDY MARC | | Phys: Mars Nicolas MD : | | 1990 Age: 24 Sex: F Acct: [id number] | | Loc: ORTH Exam Date: 07/14/2015 | | Status: PRE CLI Radiology No: [id number] | | Unit No: EXAM# TYPE/EXAM | | RESULT [id number] ORT/ORT KNEE 3V | | 73 EXAM: ORT KNEE 3V | | [id number] CLINICAL HISTORY: Knee pain. Subacute injury. COMPARISON: [...] | | | Transcribed Date/Time: 07/14/2015 (1022) Ob/Gyn Physician: FLUENCY PAGE 1 | | Signed Report [...] | | | | Transcribed Date/Time: 07/14/2015 (3932) | | Ob/Gyn Physician: YORDY | | | | | | [...]
--- OUTSIDE RECORDS SUMMARY | ~2019-12-16 | XMS | Encounter Summary ---
Demographics + + + | Address | [address] | | | [place] [address] | + + + | Home Phone [...] + | Grisel Marc | ECON | [address] | | | | | [place] | | | | | [address] | | + + + + + Care Team Providers + +------+ + | Care Notary Public Name | Role | Phone | + +------+ + | Hina Peterson | PCP | | + +------+ + Encounter Details +--------+ + + + + | Date | Type | Department | Care Team | Description | +--------+ + + + + | 06/04/ | Hospital | [facility] | | | | 2018 | Encounter | Sports Medicine & | | | | | | Orthopaedic Surgery | | | | | | [address] | | | | | | [place] | | | | | | [address] | | | | | | [phone] | | | +--------+ + + + [...] encounter Results X-RAY KNEE 3 VIEWS LEFT (06/04/2019 8:43 AM PDT) + + | Specimen | + + | | + + + + + | Narrative | Performed At | + + + | [address] | [facility] | | [place] [address] | DEPARTMENT | | [phone] Name: SANDY MARC Phys: | RADIOLOGY | | JACI PAREKH : 1990 Sex: F CSN: | | | [id number] MR# [id number] Exam Date: 06/04/2019 | | | EXAM: X-RAY KNEE 3 VIEWS LEFT 85114; X-RAY KNEE 2 VIEWS RIGHT | | | 004[address] CLINICAL HISTORY: Left knee pain. COMPARISON: None [...] Transcribed Date/Time: 06/04/2019 | | | 23:16 Certified Low Vision Therapist: YORDY | | + + + + + | Procedure Note | + + | Interface, Radiology Results - 06/04/2019 11:21 PM PDT [address] | | [address] [place] [address] | | Name: SANDY MARC Phys: JACI PAREKH : 1990 Sex: F | | CSN: [id number] MR# [id number] Exam Date: 06/04/2019 EXAM:X-RAY KNEE 3 VIEWS | | LEFT 26055; X-RAY KNEE 2 VIEWS RIGHT 11742 CLINICAL HISTORY:Left knee pain. | | COMPARISON:None [...] | | |Transcribed Date/Time: 06/04/2019 23:16 | |Certified Low Vision Therapist: FLUENCY | | | | | | [...] | + + + | [address] [place] [address] | [facility] | | [place] [address] | DEPARTMENT | | [phone] Name: SANDY MARC Phys: | RADIOLOGY | | JACI PAREKH : 1990 Sex: F CSN: | | | [id number] MR# [id number] Exam Date: 06/04/2019 | | | EXAM: X-RAY KNEE 3 VIEWS LEFT 54712; X-RAY KNEE 2 VIEWS RIGHT | | | [address] CLINICAL HISTORY: Left knee pain. COMPARISON: None [...] Transcribed Date/Time: 06/04/2019 | | | 23:16 Certified Low Vision Therapist: YORDY | | + + + + + | Procedure Note | + + | Interface, Radiology Results - 06/04/2019 11:21 PM PDT [address] | | [address] [place] [address] | | Name: SANDY MARC Phys: JACI PAREKH : 1990 Sex: F | | CSN: [id number] MR# [id number] Exam Date: 06/04/2019 EXAM:X-RAY KNEE 3 VIEWS | | LEFT 36937; X-RAY KNEE 2 VIEWS RIGHT 43523 CLINICAL HISTORY:Left knee pain. | | COMPARISON:None [...] | | |Transcribed Date/Time: 06/04/2019 23:16 | |Certified Low Vision Therapist: FLUENCY | | | | | | [...]
--- OUTSIDE RECORDS SUMMARY | ~2019-12-16 | XMS | Encounter Summary ---
Demographics + + + | Address | [address] | | | [place] [address] | + + + | Home Phone [...] + + + | Author | [facility] | + + + | Organization | [facility] | + + + | Address | Unknown | + + + | Phone | Unavailable | + + + Support + + + + + | Name | Relationship | Address | Phone | + + + + + | Grisel Marc | ECON | [address] | | | | | [place] | | | | | [address] | | + + + + + Care Team Providers + +------+ + | Care Model Artists' Name | Role | Phone | + +------+ + | Hina Peterson | PCP | | + +------+ + Reason for Referral Transfer to Another Service Area (Routine) + +--------+ + + + + | Status | Reason | Specialty | Diagnoses / | Referred By | Referred To | | | | | Procedures | Contact | Contact | + +--------+ + + + + | Authorized | | Radiology / | Diagnoses | Mirza, | External | | | | Non [facility] | Left knee | ST[facility]ON Alman[facility] | Order | | | | Department | pain, | [address] | | | | | | unspecified | [address] | | | | | | chronicity | [place], | | | | | | Tears of | [place] | | | | | | meniscus and | [address] | | | | | | anterior | Phone: | | | | | | cruciate | [phone] | | | | | | ligament of | Fax: | | | | | | left knee, | [phone] | | | | | | initial | | | | | | | encounter | | | | | | | Procedures | | | | | | | MRI KNEE | | | | | | | LEFT WO | | | | | | | CONTRAST VA | | | | | | | MRI LOWER | | | | | | | EXTREM JT, | | | | | | | W/O CONTRAST | | | + +--------+ + + + + Reason for Visit + + + | Reason | Comments | + + + | New patient | Left knee pain | | consultation | | + + + Encounter Details +--------+---------+ + + + | Date | Type | Department | Care Team | Description | +--------+---------+ + + + | 06/04/ | Office | [facility] | Jaci Blue, | Left knee pain, | | 2019 | Visit | Sports Medicine & | PAJadon [address] | unspecified | | | | Orthopaedic Surgery | Blvd [place], [place] | chronicity (Primary | | | | [address] | [address] | Dx); Tears of | | | | [place], [place] | [phone] | meniscus and | | | | [address] | | anterior cruciate | | | | [phone] | | ligament of left | | | | | | knee, initial | | | | | | encounter | +--------+---------+ + + + Social History [...] Patient Instructions Patient Instructions Terrence Condon - 06/04/2019 9:00 AM PDTReferral placed for an MRI to [facility], Get a disc to bring back to us Wear brace at all times Go to hospital to get ultrasound Follow up after MRI documented in this encounter Progress Notes Jaci Blue PA-C - 06/04/2019 9:00 AM PDTFormatting of this note might be different fr om the original. Chief Complaint: Left knee pain HPI: Sandy Marc is a 28 y.o. female from [place] who presents to the office today for [...] taken and was referred here for follow-up. Due to persistent symptoms she presents to the office for orthopaedic evaluation. The patient has a history of extensive knee surgeries and injury to the left leg in 2011 an d 2012. She had a prior ORIF of tibial plateau fracture. She did develop infection postop a nd osteomyelitis. Hardware was removed. 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 She does wear a functional ACL brace which helps with some symptoms. Howev er she does have persistent instability in the knee, daily, despite brace use. She was referred to the office today for orthopedic evaluation by [facility]. Current pain is 3-4/10 and is characterized as sharp, dull, stabbing, aching and constant. Symptoms are improving. The pain does wake the patient at night. It is associated with s welling. Symptoms are aggravated by standing, walking, stairs, squatting, kneeling and twis ting, and improve with rest, ice, compression and elevation. She is using no medications fo r the pain. Past Medical and Surgical History: Reviewed per patient intake form. Past Medical History: Diagnosis Date ADHD (attention [...] and medi al tibial plateau chondroplasty. 09/02/12 Current Outpatient Medications Medication albuterol 90 mcg/actuation Inhalation HFA Aerosol Inhaler cyclobenzaprine 10 mg oral tablet medroxyPROGESTERone 150 mg/mL intramuscular suspension methylphenidate 10 mg oral tablet naproxen 500 mg oral tablet polyethylene glycol 17 gram/dose oral powder No current facility-administered medications for this visit. 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 Her smoking use included cigarettes. S he has a 0.50 pack-year smoking history. She has never used smokeless tobacco. She reports current alcohol use. She reports no history of drug use. Review of Systems: Completed and reviewed with [...] tests: Pain with medial and lateral Sotero's Contralateral knee: Inspection: No swelling. Palpation: Nontender. Range of motion: Full range of motion. Strength: Normal strength. Diagnostic Imaging: X-ray examination 06/04/19 demonstrates Feliberto changes and mild medial joint space narr owing. There are sclerotic changes noted tibial and femur Assessment: Left knee instability Status post ORIF tibial plateau, osteomyelitis Status post hardware removal Plan: The patient's clinical history and physical exam are consistent with left knee instability. She has an extensive left knee history including many surgeries including infection follow ing tibial plateau ORIF. I reviewed the natural history of this disorder with the patient a nd have outlined treatment options. recommend continuation of functional brace. I will ob tain a Doppler ultrasound to rule out DVT due to her posterior calf and hamstring tenderness . Results of the DVT study were negative. We will obtain MRI as well to evaluate cartilage i n joint as well as ACL tear. I will see her back after the MRI to discuss plan. Follow up: After MRI Jaci Blue PA-C [facility] Orthopaedics and Rehabilitation Orthopaedic Physician Bale Sewer [facility] [address] [place] [address] Office: [phone] documented in this e ncounter Plan of Treatment + +---------+--------+ + + | Name | Type | Priori | Associated Diagnoses | Order Schedule | | | | ty | | | + +---------+--------+ + + | MRI KNEE LEFT WO | Imaging | Routin | Left knee pain, | Expected: | | CONTRAST | | e | unspecified | 06/04/2019, Expires: | | | | | chronicity Tears of | 07/04/2020 | | | | | meniscus and | | | | | | anterior cruciate | | | | | | ligament of left | | | | | | knee, initial | | | | | | encounter | | + +---------+--------+ + + documented as of this encounter Results US DUPLEX LOWER EXTREMITY VENOUS LEFT (06/04/2019 10:49 AM PDT) + + | Specimen | + + | | + + + + + | Narrative | Performed At | + + + | [address] | [facility] | | [place] [address] | DEPARTMENT | | [phone] Name: SANDY MARC Phys: | RADIOLOGY | | MIRZAJACI : 1990 Sex: F CSN: | | | [id number] MR# [id number] Exam Date: 06/04/2019 | | | EXAM: [...] Transcribed | | | Date/Time: 06/04/2019 11:28 Guide Dog Instructor: FLUENCY | | + + + + + | Procedure Note | + + | Interface, Radiology Results - 06/04/2019 11:36 AM PDT [address] | | [address] [place] [address] | | Name: ANGELICA MARCAlex Phys: JACI BLUE : 1990 Sex: F | | CSN: [id number] MR# [id number] Exam Date: 06/04/2019 EXAM:LEFT LOWER EXTREMITY | [...] | | |Transcribed Date/Time: 06/04/2019 11:28 | |Guide Dog Instructor: FLUENCY | | | | | | [...] | + + + | [address] [place] [address] | [facility] | | [place] [address] | DEPARTMENT | | [phone] Name: SANDY MARC Phys: | RADIOLOGY | | JACI BLUE : 1990 Sex: F CSN: | | | [id number] MR# [id number] Exam Date: 06/04/2019 | | | EXAM: X-RAY KNEE 3 VIEWS LEFT 15994; X-RAY KNEE 2 VIEWS RIGHT | | | [address] CLINICAL HISTORY: Left knee pain. COMPARISON: None [...] Transcribed Date/Time: 06/04/2019 | | | 23:16 Guide Dog Instructor: FLUENCY | | + + + + + | Procedure Note | + + | Interface, Radiology Results - 06/04/2019 11:21 PM PDT [address] | | [address] [place] [address] | | Name: SANDY MARC Phys: JACI BLUE : 1990 Sex: F | | CSN: [id number] MR# [id number] Exam Date: 06/04/2019 EXAM:X-RAY KNEE 3 VIEWS | | LEFT [address]35; X-RAY KNEE 2 VIEWS RIGHT 01202 CLINICAL HISTORY:Left knee pain. | | COMPARISON:None [...] | | |Transcribed Date/Time: 06/04/2019 23:16 | |Guide Dog Instructor: FLUENCY | | | | | | | + + + +---------+ + + | Performing | Address | City/State/[place] [facility] | Phone Number | | Organization | [...] | + + + | [address] [place] [address] | [facility] | | [place] [address] | DEPARTMENT OF | | [phone] Name: SANDY MARC Phys: | RADIOLOGY | | JACI BLUE : 1990 Sex: F CSN: | | | [id number] MR# [id number] Exam Date: 06/04/2019 | | | EXAM: X-RAY KNEE 3 VIEWS LEFT 23007; X-RAY KNEE 2 VIEWS RIGHT | | | [address]49 CLINICAL HISTORY: Left knee pain. COMPARISON: None [...] Transcribed Date/Time: 06/04/2019 | | | 23:16 Guide Dog Instructor: FLUENCY | | + + + + + | Procedure Note | + + | Interface, Radiology Results - 06/04/2019 11:21 PM PDT [address] | | [place] [address] | | Name: SANDY MARC Phys: JACI BLUE : 1990 Sex: F | | CSN: [id number] MR# [id number] Exam Date: 06/04/2019 EXAM:X-RAY KNEE 3 VIEWS | | LEFT [address]32; X-RAY KNEE 2 VIEWS RIGHT 65921 CLINICAL HISTORY:Left knee pain. | | COMPARISON:None [...] | | |Transcribed Date/Time: 06/04/2019 23:16 | |Guide Dog Instructor: FLUENCY | | | | | | [...]
--- OUTSIDE RECORDS SUMMARY | ~2019-12-16 | XMS | Encounter Summary ---
Demographics + + + | Address | [address] | | | [place] [address] | + + + | Home Phone [...] + | Grisel Marc | ECON | [address] | | | | | [place] | | | | | [address] | | + + + + + Care Team Providers + +------+ + | Care Wound Treatment Rn Name | Role | Phone | [...] | | | | | unspecified | [address] | | | | | | chronicity | [place], | | | | | | Tears of | [place] | | | | | | meniscus and | [address] | | | | | | anterior | Phone: | | | | | | cruciate | [phone] | | | | | | ligament of | Fax: | | | | | | left knee, | [phone] | | | | | | initial | | | | | | | encounter | | | | | | | Procedures | | | | | | | MRI KNEE | | | | | | | LEFT WO | | | | | | | CONTRAST SD | | | | | | | [...] | | | Orthopaedic Surgery | Blvd [place], [place] | chronicity (Primary | | | | [address] | [address] | Dx); Tears of | | | | [place], [place] | [phone] | meniscus and | | | | [address] | | anterior cruciate | | | | [phone] | | ligament of left | | [...] Marc is a 28 y.o. female from [place] who presents to the office today for [...] Follow up: After MRI Jaci Blue PA-C [facility] Orthopaedics and Rehabilitation Orthopaedic Physician After School Program Director [facility] [address] [place] [address] Office: [phone] documented in this e ncounter Plan of [...] | + + + | [address] | [facility] | | [place] [address] | DEPARTMENT | | [phone] Name: SANDY MARC Phys: | RADIOLOGY | | MIRZAJACI : 1990 Sex: F CSN: | | | [id number] MR# [id number] Exam Date: 06/04/2019 | | | EXAM: [...] Transcribed | | | Date/Time: 06/04/2019 11:28 Fireworks Display Specialist: FLUENCY | | + + + + + | Procedure Note | + + | Interface, Radiology Results - 06/04/2019 11:36 AM PDT [address] | | [address] [place] [address] | | Name: ANGELICA MARCAlex Phys: JACI BLUE : 1990 Sex: F | | CSN: [id number] MR# [id number] Exam Date: 06/04/2019 EXAM:LEFT LOWER EXTREMITY | [...] | | |Transcribed Date/Time: 06/04/2019 11:28 | |Fireworks Display Specialist: FLUENCY | | | | | | [...] | + + + | [address] [place] [address] | [facility] | | [place] [address] | DEPARTMENT | | [phone] Name: SANDY MARC Phys: | RADIOLOGY | | JACI BLUE : 1990 Sex: F CSN: | | | [id number] MR# [id number] Exam Date: 06/04/2019 | | | EXAM: X-RAY KNEE 3 VIEWS LEFT [id number]; X-RAY KNEE 2 VIEWS RIGHT | | | [address]46[address] CLINICAL HISTORY: Left knee pain. COMPARISON: None [...] Transcribed Date/Time: 06/04/2019 | | | 23:16 Fireworks Display Specialist: FLUENCY | | + + + + + | Procedure Note | + + | Interface, Radiology Results - 06/04/2019 11:21 PM PDT [address] | | [address] [place] [address] | | Name: SANDY MARC Phys: JACI BLUE : 1990 Sex: F | | CSN: [id number] MR# [id number] Exam Date: 06/04/2019 EXAM:X-RAY KNEE 3 VIEWS | | LEFT 23623; X-RAY KNEE 2 VIEWS RIGHT 85304 CLINICAL HISTORY:Left knee pain. | | COMPARISON:None [...] | | |Transcribed Date/Time: 06/04/2019 23:16 | |Fireworks Display Specialist: FLUENCY | | | | | | | + + + +---------+ + + | Performing | Address | City[facility] | Phone Number | | Organization | [...] | + + + | [address] [place] [address] | [facility] | | [place] [address] | DEPARTMENT OF | | [phone] Name: SANDY MARC Phys: | RADIOLOGY | | JACI BLUE : 1990 Sex: F CSN: | | | [id number] MR# [id number] Exam Date: 06/04/2019 | | | EXAM: X-RAY KNEE 3 VIEWS LEFT 216[address]; X-RAY KNEE 2 VIEWS RIGHT | | | [address] CLINICAL HISTORY: Left knee pain. COMPARISON: None [...] Transcribed Date/Time: 06/04/2019 | | | 23:16 Fireworks Display Specialist: FLUENCY | | + + + + + | Procedure Note | + + | Interface, Radiology Results - 06/04/2019 11:21 PM PDT [address] | | [place] [address] | | Name: SANDY MARC Phys: JACI BLUE : 1990 Sex: F | | CSN: [id number] MR# [id number] Exam Date: 06/04/2019 EXAM:X-RAY KNEE 3 VIEWS | | LEFT 03082; X-RAY KNEE 2 VIEWS RIGHT 79300 CLINICAL HISTORY:Left knee pain. | | COMPARISON:None [...] | | |Transcribed Date/Time: 06/04/2019 23:16 | |Fireworks Display Specialist: FLUENCY | | | | | | [...]
--- OUTSIDE RECORDS SUMMARY | ~2019-12-16 | XMS | Encounter Summary ---
Demographics + + + | Address | [address] | | | [place] [address] | + + + | Home Phone [...] + | Grisel Marc | ECON | [address] | | | | | [place] | | | | | [address] | | + + + + + Care Team Providers + +------+ + | Care Strategic Planning Manager Name | Role | Phone | [...] | | | | [address] | [address] | | | | | [address] | [phone] | | | | | [place] | | | | | | [address] | | | | | | [phone] | | | +--------+ + + + [...]
--- OUTSIDE RECORDS SUMMARY | ~2019-12-16 | XMS | Encounter Summary ---
Demographics + + + | Address | [address] | | | [place] [address] | + + + | Home Phone [...] [place] | | | | | [address] | | + + + + + Care Team Providers + +------+ + | Care Parts Processor Name | Role | Phone | + [...] | | | | | | [place], | | | | | | [place] [address] | | | | | | [phone] | | | +--------+ + + + [...]
--- OUTSIDE RECORDS SUMMARY | ~2019-12-16 | XMS | Encounter Summary ---
Demographics + + + | Address | [address] | | | [place] [address] | + + + | Home Phone [...] [place] | | | | | [address] | | + + + + + Care Team Providers + +------+ + | Care Vamp Cut Out Worker Name | Role | Phone | [...] Pavilion | | | | | | [place], [place] | | | | | | [address] | | | | | | [phone] | | | +--------+ + + + [...]
--- OUTSIDE RECORDS SUMMARY | ~2019-12-16 | XMS | Encounter Summary ---
Demographics + + + | Address | [address] | | | [place] [address] | + + + | Home Phone [...] [place] | | | | | [address] | | + + + + + Care Team Providers + +------+ + | Care Welder Fitter Gas Name | Role | Phone | + [...] [place] | | | | | region ([facility]) | Associates | [address] [place], | | | | | AVN | [address] | [place] | | | | | (avascular | St[address] | [address] | | | | | necrosis of | [place], | | | | | | bone) ([facility]) | [place] [address] | | | | | | Pathologic | Phone: | | | | | | fracture of | [phone] | | | | | | tibia or | Fax: | | | | | | fibula | [phone] | | | | | | Septic | | | | | | | 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| | | | | | knee, left | | | | | | | ([facility]) | | | | | | | Procedures | | | | | | | REQUEST TO | | | | | | | SURGERY | | | | | | | JOINER HELPER | | | | | | | RI PARTIAL | | | | | | | REMOVAL OF | | | | | | | TIBIA RI | | | | | | | INSERTION | | | | | | | DRUG IMPLANT | | | | | | | DEVICE RI | | | | | | | KNEE | | | | | | | SCOPE,SHAVE | | | | | | | ARTICULAR | | | | | | | CART RI | | | | | | | [...] Pavilion | | | | | | [place], [place] | | | | | | [address] | | | | | | [phone] | | | +--------+---------+ + + + [...] to be followed by Dr. Peck in [place] whose PA is seeing her in clinic [...] seconds capillary refill. Palpable dorsalis pedis and training mgr ior tibial pulses. X-RAYS: Reviewed x-rays with [...] extensiveness of her infection. DARRICK BUITRAGO MD [facility] [address] [place] [address] Mailcode: [id number] [place] [address] documented in this en counter Plan of Treatment Not on filedocumented as of this encounter Visit Diagnoses + + | Diagnosis | + + | Osteomyelitis of knee region (HCC) - Primary Unspecified osteomyelitis, lower leg | + + documented in this encounter
--- OUTSIDE RECORDS SUMMARY | ~2019-12-16 | XMS | Encounter Summary ---
Demographics + + + | Address | [address] | | | [place] [address] | + + + | Home Phone [...] [place] | | | | | [address] | | + + + + + Care Team Providers + +------+ + | Care Sap Technical Architect Name | Role | Phone | [...] [facility] | | | | | | [address] | | | | | | Loop Physician's | | | | | | [place], [facility] Floor | | | | | | [place], [place] | | | | | | [address] | | | | | | [phone] | | | +--------+ + + + [...]
--- OUTSIDE RECORDS SUMMARY | ~2019-12-16 | XMS | Encounter Summary ---
Demographics + + + | Address | [address] | | | [place] [address] | + + + | Home Phone | | + + + | Preferred Language | Unknown | + + + | Marital Status | | + + + | Episcopal Affiliation | Unknown | + + + | Race | Unknown | + + + | Ethnic Group | Unknown | + + + Author + + + | Author | [facility] | | | and [place] | + + + | Organization | [facility] | | | and [...] Team Providers + +------+ + | Care Glass Lathe Operator Name | Role | Phone | [...] Emergency | SABRINA MORALES | No, Physician p | Patient left after | | 2018 | | [facility] | | triage (Primary Dx) | | | | CENTER [address] | | | | | | [place] | | | | | | [address] | | | | | | [phone] | | | +--------+ + + + [...] M?MRN: | | | | | | [id number] | | | [id number] | | | riteri | | | [...] | | | St. | | | [place] | | | y | | | [...] | | | St. | | | [place] [place] | | | y H. | | [...] | | | St. | | | [facility] | | | y H. | | [...] | | ER J, | | | AUTOMATION/CONTROLS MANAGER | | | Nurse | | | [...]
--- OUTSIDE RECORDS SUMMARY | ~2019-12-16 | XMS | Encounter Summary ---
Demographics + + + | Address | [address] | | | [place] [address] | + + + | Home Phone [...] + | Grisel Marc | ECON | [address] | | | | | [place] | | | | | [address] | | + + + + + Care Team Providers + +------+ + | Care Program Director Scouting Name | Role | Phone [...] | | | | Osteomyeliti | [address] | ,PhD 2706 | | | | | s of knee | [address] | [address] | | | | | region ([facility]) | [facility] | [facility] | | | | | Articular | Rd | Rd [address], | | | | | cartilage | [place], [place] | [place] | | | | | disorder | [address] | [address] | | | | | Left knee | Phone: | Phone: | | | | | pain, | [phone] | [phone] | | | | | unspecified | Fax: | Fax: | | | | | chronicity | [phone] | [phone] | | | | | Post-traumat | [...] | | | Janett Case | [place], [place] | (Primary Dx); | | | | [place] [address] | [address] | 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 Radiology: X-ray examination 06/04/19 demonstrates [place] changes and mild medial joint space narr owing. There are sclerotic changes noted tibial and femur MRI left knee from [facility] demonstrates Chronic ACL tear and [...] her age we will refer her to [facility] for possible osteochondral allograft, reconstr uction Follow up: linda Saba MD [facility] Orthopaedics and Rehabilitation Clinical House Wirer Helper Board Certified in Sports Medicine and Orthopaedic Surgery Director of Total Joint Replacement Program, [facility] Orthopaedics and Sports Medicine [address] [place] [address] Office: [phone] documented in this e ncounter Plan of [...]
--- OUTSIDE RECORDS SUMMARY | ~2019-12-16 | XMS | Encounter Summary ---
Demographics + + + | Address | [address] | | | [place] [address] | + + + | Home Phone [...] Author + + + | Author | [facility] | + + + | Organization | [facility] | + + + | Address | Unknown | + + + | Phone | Unavailable | + + + Support + + + + + | Name | Relationship | Address | Phone | + + + + + | Grisel Marc | ECON | [address] | | | | | [place] | | | | | [address] | | + + + + + Care Team Providers + +------+ + | Care Material Distributor Name | Role | Phone | + +------+ + | Hina Peterson | PCP | | + +------+ + Encounter Details +--------+ + + + + | Date | Type | Department | Care Team | Description | +--------+ + + + + | 12/05/ | Hospital | [facility] | | | | 2015 | Encounter | Sports Medicine & | | | | | | Orthopaedic Surgery | | | | | | [address] | | | | | | [place] | | | | | | [address] | | | | | | [phone] | | | +--------+ + + + [...]
--- OUTSIDE RECORDS SUMMARY | ~2019-12-16 | XMS | Encounter Summary ---
Demographics + + + | Address | [address] | | | [place] [address] | + + + | Home Phone [...] [place] | | | | | [address] | | + + + + + Care Team Providers + +------+ + | Care Mri Special Procedures Technologist Name | Role | Phone | + +------+ + | Adilia Bob METAL CONTROL WORKER | PCP | | + +------+ + Encounter Details +--------+ + + + + | Date | Type | Department | Care Team | Description | +--------+ + + + + | 12/08/ | Network Designer | Infectious | Lavinia Peck, | Osteomyelitis of | | 2012 | | Diseases at [facility] | MD [address] | knee region (HCC) | | | | [address] | [address] | (Primary Dx) | | | | Loop Physician's | [place] [address] | | | | | Pavilion, [address] [place] [address] | [phone] | | | | | [place], [place] | | | | | | [address] | | | | | | [phone] | | | +--------+ + + + [...]
--- OUTSIDE RECORDS SUMMARY | ~2019-12-16 | XMS | Encounter Summary ---
Demographics + + + | Address | [address] | | | [place] [address] | + + + | Home Phone [...] [place] | | | | | [address] | | + + + + + Care Team Providers + +------+ + | Care Sub Assembly Team Worker Name | Role | Phone | [...] [facility] | | | | | | [address] | | | | | | Loop Physician's | | | | | | [place], [facility] Floor | | | | | | [place], [place] | | | | | | [address] | | | | | | [phone] | | | +--------+ + + + [...] | | + +---------+ + + | [facility] DEPARTMENT OF | | | | | RADIOLOGY | | | | + +---------+ + + documented in this encounter Visit Diagnoses + + | Diagnosis | + + | Osteomyelitis of knee region (HCC) Unspecified osteomyelitis, lower leg | + + documented in this encounter"
--- OUTSIDE RECORDS SUMMARY | ~2019-12-16 | XMS | Encounter Summary ---
Demographics + + + | Address | [address] | | | [place] [address] | + + + | Home Phone [...] Author + + + | Author | [facility] | + + + | Organization | [facility] | + + + | Address | Unknown | + + + | Phone | Unavailable | + + + Support + + + + + | Name | Relationship | Address | Phone | + + + + + | Grisel Marc | ECON | [address] | | | | | [place] | | | | | [address] | | + + + + + Care Team Providers + +------+ + | Care Diabetes Manager Name | Role | Phone | + +------+ + | Hina Peterson | PCP | | + +------+ + Encounter Details +--------+ + + + + | Date | Type | Department | Care Team | Description | +--------+ + + + + | 10/07/ | Hospital | [facility] | | | | 2019 | Encounter | Sports Medicine & | | | | | | Orthopaedic Surgery | | | | | | [address] | | | | | | [place] | | | | | | [address] | | | | | | [phone] | | | +--------+ + + + [...] | + + + | [address] [place] [address] | [facility] | | [place] [address] | DEPARTMENT OF | | [phone] Name: SANDY MARC (SHARIF-EE-L) | RADIOLOGY | | Phys: MARLA FRIED : 1990 Sex: F | | | CSN: [id number] MR# [id number] Exam Date: | | | 10/07/2019 EXAM: X-RAY KNEE 3 VIEWS LEFT [id number] CLINICAL | | | HISTORY: Left knee [...] proximal | | | tibial metadiaphysis. 2. Fdyp-tf-urpkciph medial femorotibial joint | | | degeneration. REPORT SIGNED IN OTHER VENDOR SYSTEM | | | 10/08/2019 Reported by: HELENA BARRAZA MD Electronically | | | signed by: HELENA BARRAZA MD Transcribed Date/Time: 10/08/2019 | | | 13:44 Oil Furnace Installer: FLUENCY | | + + + + + | Procedure Note | + + | Interface, Radiology Results - 10/08/2019 1:51 PM PST [address] | | [address] [place] [address] | | Name: SANDY MARC (SHARIF-EE-L) Phys: MARLA FRIED : 1990 | | Sex: F CSN: [id number] MR# [id number] Exam Date: 10/07/2019 EXAM:X-RAY | | KNEE 3 VIEWS LEFT [id number] CLINICAL HISTORY:Left knee pain. COMPARISON:06/14/2019 left | [...] in the | | proximal tibial metadiaphysis.2. Edts-zi-gnfmdxzk medial femorotibial joint | | degeneration. REPORT [...] in the proximal tibial metadiaphysis. | |2. Bfjv-qg-anbecaql medial femorotibial joint degeneration. | | | | | | REPORT SIGNED IN OTHER VENDOR SYSTEM 10/08/2019 | |Reported by: HELENA BARRAZA MD | | | |Electronically signed by: HELENA BARRAZA MD | | | |Transcribed Date/Time: 10/08/2019 13:44 | |Oil Furnace Installer: FLUENCY | | | | | | [...]
--- OUTSIDE RECORDS SUMMARY | ~2019-12-16 | XMS | Encounter Summary ---
Demographics + + + | Address | [address] | | | [place] [address] | + + + | Home Phone [...] [place] | | | | | [address] | | + + + + + Care Team Providers + +------+ + | Care Sap Ariba Consultant Name | Role | Phone | [...] | | | | Loop Physician's | [place] [address] | | | | | [place], [facility] floor | [phone] | | | | | [place], [place] | | | | | | [address] | | | | | | [phone] | | | +--------+ + + + [...]
--- OUTSIDE RECORDS SUMMARY | ~2019-12-16 | XMS | Encounter Summary ---
Demographics + + + | Address | [address] | | | [place] [address] | + + + | Home Phone | | + + + | Preferred Language | Unknown | + + + | Marital Status | Single | + + + | Lutheran Affiliation | LUT | + + + | Race | White | + + + | Ethnic Group | Not or | + + + Author + + + | Author | [facility] | + + + | Organization | [facility] | + + + | Address | Unknown | + + + | Phone | Unavailable | + + + Support + + + + + | Name | Relationship | Address | Phone | + + + + + | Grisel Marc | ECON | [address] | | | | | [place] | | | | | [address] | | + + + + + Care Team Providers + +------+ + | Care Sheltered Workshop Worker Name | Role | Phone | [...] | | | [address] | [address] | | | | | [address] | [phone] | | | | | [place] | | | | | | [address] | | | | | | [phone] | | | +--------+ + + + [...]
--- OUTSIDE RECORDS SUMMARY | ~2019-12-16 | XMS | Clinical Summary ---
Demographics + + + | Address | [address] | | | [place] [address] | + + + | Home Phone | | + + + | Preferred Language | Unknown | + + + | Marital Status | | + + + | Sikh Affiliation | Unknown | + + + | Race | Unknown | + + + | Ethnic Group | Unknown | + + + Author + + + | Author | [facility] | | | and [place] | + + + | Organization | [facility] | | | and [...] Team Providers + +------+ + | Care Document Management Specialist Name | Role | Phone | [...] UNABLE TO | supplement | | | 4/20 | | e | | FIND | | | | 19 | | | + + + +---------+------+------+-------+ Active Problems Not on file Family History [...] + | Maternal Aunt | | | [place] | | | | (Age | | [...] | [employer] | [employer] | [id number] | | [phone] | | [employer] | | MEDICAID HMO [...] al/Fam | | 1991 | [phone] | [place] | | | nayla | | | 2 (Home) | [address] | + +--------+ +--------+ + + Advance Directives + + + + + | Type | Date Recorded | Patient | Explanation | | | | Interactive Multimedia Designer | | + + + + + | Power of | | | | | Resident Services Coordinator | | | | + + + + + | Advance | 06/19/2019 2:16 | | | | Directive | PM | | | + + + + +
--- OUTSIDE RECORDS SUMMARY | ~2019-12-16 | XMS | Encounter Summary ---
Demographics + + + | Address | [address] | | | [place] [address] | + + + | Home Phone | | + + + | Preferred Language | Unknown | + + + | Marital Status | Single | + + + | Caodaism Affiliation | LUT | + + + [...] [place] | | | | | [address] | | + + + + + Care Team Providers + +------+ + | Care Grinder Set Up Operator External Name | Role | Phone | + [...] | [place] | | | | | [address] | | | | | | Loop Phys[address]'s | | | | | | [place], [address] floor | | | | | | [place], [place] | | | | | | [address] | | | | | | [phone] | | | +--------+ + + + [...] | + +---------+ + + | SONIA MEERNESTO GORMAN | | | | + +---------+ + + documented in this encounter Visit Diagnoses Not on filedocumented in this encounter"
--- OUTSIDE RECORDS SUMMARY | ~2019-12-16 | XMS | Encounter Summary ---
Demographics + + + | Address | [address] | | | [place] [address] | + + + | Home Phone [...] Author + + + | Author | [facility] | + + + | Organization | [facility] | + + + | Address | Unknown | + + + | Phone | Unavailable | + + + Support + + + + + | Name | Relationship | Address | Phone | + + + + + | Grisel Marc | ECON | [address] | | | | | [place] | | | | | [address] | | + + + + + Care Team Providers + +------+ + | Care Puncher Name | Role | Phone | + [...] | | [address] | [address] | | | | | [address] | [phone] | | | | | [place], [place] | | | | | | [address] | | | | | | [phone] | | | +--------+---------+ + + + [...] She had been followed by ID at [facility] also. She has had chronic symptoms [...] She should keep it strong, use her borematic operator brace as tolerated. Of course she knows [...]
--- OUTSIDE RECORDS SUMMARY | ~2019-12-16 | XMS | Encounter Summary ---
Demographics + + + | Address | [address] | | | [place] [address] | + + + | Home Phone [...] + + + | Author | [facility] | + + + | Organization | [facility] | + + + [...] [place] | | | | | [address] | | + + + + + Care Team Providers + +------+ + | Care Menhaden Vessel Pilot Name | Role | Phone | [...] floor | | | | | | [place], [place] | | | | | | [address] | | | | | | [phone] | | | +--------+------+ + + + [...] e | 10:01 AM | knee region ([facility]) | procedure are in the | | | | PST | | results section. | + +--------+ + + + | HIV-1,2 AB/HIV-1 P24 | Routin | 08/25/2012 | Osteomyelitis of | Results for this | | AG SCRN | e | 10:01 AM | knee region ([facility]) | procedure are in the | | | | PST | | results section. | + +--------+ + + + | IGA, SERUM | Routin | 08/25/2012 | Osteomyelitis of | Results for this | | | e | 10:01 AM | knee region ([facility]) | procedure are in the | [...] [facility] | [address] | [place] [address] | | | SERVICES, CORE | PARK [...] [facility] | [address] | [place] [address] | | | SERVICES, SPECIAL | PARK [...] | | | | | in the [facility] | | | | | | LaboratoryTest Directory | | | | | | ([employer]). | | | | + + + [...] | | | | | in the [facility] | | | | | | LaboratoryTest Directory | | | | | | ([employer]). | | | | + + + [...] | | | | | in the [facility] | | | | | | LaboratoryTest Directory | | | | | | ([employer]). | | | | + + + [...] # | | | | | | [phone]). Access | | | | | | complete set of age- | | | | | | and/or | | | | | | gender-specificreference | | | | | | intervals for this test | | | | | | in the [facility] | | | | | | LaboratoryTest Directory | | | | | | ([employer]).Performed | | | | | | by [facility] | | | | | | [facility],[address] [place] [address] | | | | | | [place] [address] | | | | | | [phone] | | | | | | [facility], Magy Fernandez, | | | [...] [facility] | [address] | [place], [place] | | | UN[facility] | | [address] | | + + + + + [...] | + + + + + | [facility] - | [address] | [place] [address] | | | [place] | | | | + + + + + documented in this encounter Visit Diagnoses + + | Diagnosis | + + | Osteomyelitis of knee region (HCC) Unspecified osteomyelitis, lower leg | + + documented in this encounter"
--- OUTSIDE RECORDS SUMMARY | ~2019-12-16 | XMS | Encounter Summary ---
Demographics + + + | Address | [address] | | | [place] [address] | + + + | Home Phone [...] [place] | | | | | [address] | | + + + + + Care Team Providers + +------+ + | Care Family Service Aide Name | Role | Phone | + +------+ + | Adilia Bob PET FEEDER | PCP | | + +------+ + [...] Bean | | | | | region ([facility]) | Ravi | Research | | | | | Procedures | [place], [place] | Center | | | | | MRI KNEE | [address] | [place], [place] | | | | | LT WWO CONT | Phone: | [phone] | | | | | | [phone] | Phone: | | | | | | Fax: | [phone] | | | | | | [phone] | Fax: | | | | | | | [phone] | +--------+--------+ + + + + Encounter Details +--------+ + + + + | Date | Type | Department | Care Team | Description | +--------+ + + + + | 08/24/ | Hospital | Diagnostic Imaging | | | | 2012 | Encounter | Services at [facility] | | | | | | [address] | | | | | | [place] | | | | | | [facility] | | | | | | [facility] [place] | | | | | | [address] | | | | | | [phone] | | | +--------+ + + + [...] subchondral | | | | | | [id number] hyperintensity | | | | | | [...] | | + +---------+ + + | [facility] DEPARTMENT OF | | | | | RADIOLOGY | | | | + +---------+ + + documented in this encounter Visit Diagnoses + + | Diagnosis | + + | Osteomyelitis of knee region (HCC) Unspecified osteomyelitis, lower leg | + + documented in this encounter"
--- OUTSIDE RECORDS SUMMARY | ~2019-12-16 | XMS | Encounter Summary ---
Demographics + + + | Address | [address] | | | [place] [address] | + + + | Home Phone [...] + + + | Author | [facility] | + + + | Organization | [facility] | + + + | Address | Unknown | + + + | Phone | Unavailable | + + + Support + + + + + | Name | Relationship | Address | Phone | + + + + + | Grisel Marc | ECON | [address] | | | | | [place] | | | | | [address] | | + + + + + Care Team Providers + +------+ + | Care Oxygraph Operator Name | Role | Phone | [...] | Sports Medicine & | STANTON Johnson [address] [facility] | unspecified | | | | Orthopaedic Surgery | [address] | chronicity (Primary | | | | [address] | [place], [place] | Dx); Rupture of | | | | [place], [place] | [address] | anterior cruciate | | | | [address] | [phone] | ligament of left | | | | [phone] | | knee, subsequent | | | [...] on Smoking cessation and follow up with [facility] when you have quit smoking. [facility] will contact you about the brace. [...] and required multiple surgeries I believe at [facility] to clear this infection over the next 1-2 years. The infection resolved but she has had a p ainful knee for some time. Recently she had a hyperextension injury and an MRI shows an abse nt ACL with marked degenerative changes in the medial compartment. The patient was last seen in the office on 06/25/[address] Saba. She was referred to [facility] for possible osteochondral allograft, reconstruction. The patient has been working on smoking cessation but unfortunately has started to smoke again recently. [facility] will not see the patient until she has documentation of smoking cessation. The patient reports she experienced a pop in her left knee and increased pain on 09/25/2019, she went to [facility] ED in [place], [place] for further evaluation. The patient reports [...] History Narrative Lives with her parents in [place]. Has adequate support should surgery be [...] and femur MRI left knee from [facility] in [place] demonstrates Chronic ACL tear and medial join [...] She was encouraged to follow up with [facility] for possib le osteochondral allograft and reconstruction surgery. She will continue to work on smoking cessation, as this is required for [facility]. The patient reports she is required to [...] weeks Bambi Fried PA-C Orthopedic Physician Battery Installer [facility] Orthopaedics and Rehabilitation [facility] Orthopaedics and Sports Medicine [address] [place] [address] Office: [phone] documented in th is encounter Plan of Treatment Not on filedocumented as of this encounter Results X-RAY KNEE 3 VIEWS LEFT (10/07/2019 10:43 AM PST) + + | Specimen | + + | | + + + + + | Narrative | Performed At | + + + | [address] [place] [address] | [facility] | | [place] [address] | DEPARTMENT | | [phone] Name: SANDY MARC (DINORA-EE-L) | RADIOLOGY | | Phys: BAMBI FRIED : 1990 Sex: F | | | CSN: [id number] MR# [id number] Exam Date: | | | 10/07/2019 EXAM: X-RAY KNEE 3 VIEWS LEFT [id number] CLINICAL | | | HISTORY: Left knee [...] proximal | | | tibial metadiaphysis. 2. Mtkg-nw-ypfjzvnk medial femorotibial joint | | | degeneration. REPORT SIGNED IN OTHER VENDOR SYSTEM | | | 10/08/2019 Reported by: HELENA BARRAZA MD Electronically | | | signed by: HELENA BARRAZA MD Transcribed Date/Time: 10/08/2019 | | | 13:44 Perl Software Engineer: FLUENCY | | + + + + + | Procedure Note | + + | Interface, Radiology Results - 10/08/2019 1:51 PM PST [address] | | [address] [place] [address] | | Name: SANDY MARC (DINORA-EE-L) Phys: BAMBI FRIED : 1990 | | Sex: F CSN: [id number] MR# [id number] Exam Date: 10/07/2019 EXAM:X-RAY | | KNEE 3 VIEWS LEFT [id number] CLINICAL HISTORY:Left knee pain. COMPARISON:06/14/2019 left | [...] in the | | proximal tibial metadiaphysis.2. Jxit-an-gzbledyy medial femorotibial joint | | degeneration. REPORT [...] in the proximal tibial metadiaphysis. | |2. Oxfq-rd-mhwwwxmd medial femorotibial joint degeneration. | | | | | | REPORT SIGNED IN OTHER VENDOR SYSTEM 10/08/2019 | |Reported by: HELENA BARRAZA MD | | | |Electronically signed by: HELENA BARRAZA MD | | | |Transcribed Date/Time: 10/08/2019 13:44 | |Perl Software Engineer: FLUENCY | | | | | | [...]
--- OUTSIDE RECORDS SUMMARY | ~2019-12-16 | XMS | Encounter Summary ---
Demographics + + + | Address | [address] | | | [place] [address] | + + + | Home Phone | | + + + | Preferred Language | Unknown | + + + | Marital Status | | + + + | Methodist Affiliation | Unknown | + + + | Race | Unknown | + + + | Ethnic Group | Unknown | + + + Author + + + | Author | [facility] | | | and [place] | + + + | Organization | [facility] | | | and [...] Team Providers + +------+ + | Care Casket Coverer Name | Role | Phone | [...] Provider Unknown | | | | | [place], [place] | [phone] | | | | | [address] | | | | | | [phone] | | | +--------+ + + + [...]
--- OUTSIDE RECORDS SUMMARY | ~2019-12-16 | XMS | Encounter Summary ---
Demographics + + + | Address | [address] | | | [place] [address] | + + + | Home Phone [...] [place] | | | | | [address] | | + + + + + Care Team Providers + +------+ + | Care Waste Water Or Water Plant Operator Name | Role | Phone | [...] | | | | | Health | [facility] | | | | | | Associates | Rd | | | | | | [address] | [place], [place] | | | | | | [address], [address] | [address] | | | | | | [place], | | | | | | | [place] [address] | | | | | | | Phone: | | | | | | | [phone] | | | | | | | Fax: | | | | | | | [phone] | | +--------+--------+ + + + + [...] | | | | [address] | [place] [address] | | | | | Physician's | [phone] | | | | | [address], 4th floor | | | | | | [place], [place] | | | | | | [address] | | | | | | [phone] | | | +--------+---------+ + + + [...] UP Referrring Physician: Alton Hernandez MD [address] [place] [address] Primary Care Physician: [facility] [address], [address] [place] [address] Ms. Marc presents to Infect[facility] Diseases Clinic regarding scheduled follow up. Please refer to prior documentation including inpatient OPAT teaching note, outpatient OPAT reordering clerk for antibiotic therapy, lab monitoring History other than "Interim History" below is directly copied from previous ID notes to darya mcdonough. In addition I reviewed the history from the patient's [facility] admiss ion, including but not [...] placement of antibiotic beads 09/03/2012: HIRAM Woodbuddy [facility] Operative Findings: There were no gross [...] She was seen in the ER in [place] and had a CT Thor ax that [...] Marc follow up in Infectious Diseases Clinic [place] I spent 20 minutes in a face-to face visit with the patient, with over 50% of time spen t in councelling the patient. We discussed infection, antibiotics, duration of therapy, lab results, and follow-up planning, as described above. ZOEY PECK MD INFECTIOUS DISEASES [address] [place] [address] Mailcode: [id number] [place] [address] documented in this e ncounter Plan of Treatment Not on filedocumented as of this encounter Visit Diagnoses + + | Diagnosis | + + | Osteomyelitis of knee region (HCC) - Primary Unspecified osteomyelitis, lower leg | + + documented in this encounter
--- OUTSIDE RECORDS SUMMARY | ~2019-12-16 | XMS | Encounter Summary ---
Demographics + + + | Address | [address] | | | [place] [address] | + + + | Home Phone [...] + | Grisel Marc | ECON | [address] | | | | | [place] | | | | | [address] | | + + + + + Care Team Providers + +------+ + | Care Mud Boss Name | Role | Phone | + [...] | | [address] | [address] | | | | | [place], [place] | [phone] | | | | | [address] | | | | | | [phone] | | | +--------+ + + + [...]
--- OUTSIDE RECORDS SUMMARY | ~2019-12-16 | XMS | Encounter Summary ---
Demographics + + + | Address | [address] | | | [place] [address] | + + + | Home Phone [...] + | Grisel Marc | ECON | [address] | | | | | [place] | | | | | [address] | | + + + + + Care Team Providers + +------+ + | Care Mop Maker Name | Role | Phone | [...] | | | [address] | [address] | | | | | [place] | [phone] | | | | | [address] | | | | | | [phone] | | | +--------+ + + + [...]
--- OUTSIDE RECORDS SUMMARY | ~2019-12-16 | XMS | Encounter Summary ---
Demographics + + + | Address | [address] | | | [place] [address] | + + + | Home Phone [...] [place] | | | | | [address] | | + + + + + Care Team Providers + +------+ + | Care Quality Nurse Name | Role | Phone | [...] L PA | | | | | [address] | | | | | | Loop Physician's | | | | | | [address], 3rd floor | | | | | | [place], [place] | | | | | | [address] | | | | | | [phone] | | | +--------+ + + + [...]
--- OUTSIDE RECORDS SUMMARY | ~2019-12-16 | XMS | Encounter Summary ---
Demographics + + + | Address | [address] | | | [place] [address] | + + + | Home Phone [...] [place] | | | | | [address] | | + + + + + Care Team Providers + +------+ + | Care Cushion Spring Assembler Name | Role | Phone | + +------+ + | No Pcp Per Patient | PCP | Unavailable | + +------+ + Encounter Details +--------+ + + + + | Date | Type | Department | Care Team | Description | +--------+ + + + + | 07/21/ | Patient Support Tech | Orthopaedics at | Alton Hernandez MD | Leg pain (Primary | | 2011 | | [facility] [address] | | Dx) | | | | [address] | | | | | | Mailcode: [id number] | | | | | | Physician's Pavilion | | | | | | [place], [place] | | | | | | [address] | | | | | | [phone] | | | +--------+ + + + [...]
--- OUTSIDE RECORDS SUMMARY | ~2019-12-16 | XMS | Encounter Summary ---
Demographics + + + | Address | [address] | | | [place] [address] | + + + | Home Phone [...] [place] | | | | | [address] | | + + + + + Care Team Providers + +------+ + | Care Sanding Machine Tender Automatic Name | Role | Phone | + [...] + + + + | 09/04/ | Sustainability Executive Director | Infectious | Brigid Hardy | | | 2012 | | Diseases at [facility] | [place], [place] | | | | | [address] | | | | | | Loop Physician's | | | | | | [address], 3rd floor | | | | | | [place], [place] | | | | | | [address] | | | | | | [phone] | | | +--------+ + + + [...]
--- OUTSIDE RECORDS SUMMARY | ~2019-12-16 | XMS | Encounter Summary ---
Demographics + + + | Address | [address] | | | [place] [address] | + + + | Home Phone [...] Author + + + | Author | [facility] | + + + | Organization | [facility] | + + + | Address | Unknown | + + + | Phone | Unavailable | + + + Support + + + + + | Name | Relationship | Address | Phone | + + + + + | Grisel Marc | ECON | [address] | | | | | [place] | | | | | [address] | | + + + + + Care Team Providers + +------+ + | Care Cook Helper Vegetable Name | Role | Phone | + [...] | | | [address] | [address] | | | | | [place] | [phone] | | | | | [address] | | | | | | [phone] | | | +--------+ + + + [...]
--- OUTSIDE RECORDS SUMMARY | ~2019-12-16 | XMS | Encounter Summary ---
Demographics + + + | Address | [address] | | | [place] [address] | + + + | Home Phone [...] + | Grisel Marc | ECON | [address] | | | | | [place] | | | | | [address] | | + + + + + Care Team Providers + +------+ + | Care Carton Marker Machine Name | Role | Phone | [...] | | | | | right | [address] | NW | | | | | Procedures | [place], | [place] | | | | | MRI KNEE RT | [place] | [address] | | | | | [place] | [address] | Phone: | | | | | MRI LOWER | Phone: | [phone] | | | | | EXTREM JT, | [phone] | Fax: | | | | | W/O CONTRAST | Fax: | [phone] | | | | | | [phone] | | +--------+--------+ + + + + [...] knee | [address] | [address] | | | | | | | [address] THE | | | | | | [place], | [place] | | | | | | [place] [address] | [address] | | | | | | Phone: | Phone: | | | | | | [phone] | [phone] | | | | | | Fax: | Fax: | | | | | | [phone] | [phone] | +--------+--------+ + + + + Encounter [...] | | [address] | [address] | | | | | [address] | [phone] | | | | | [place], [place] | | | | | | [address] | | | | | | [phone] | | | +--------+---------+ + + + [...]
--- OUTSIDE RECORDS SUMMARY | ~2019-12-16 | XMS | Encounter Summary ---
Demographics + + + | Address | [address] | | | [place] [address] | + + + | Home Phone [...] [place] | | | | | [address] | | + + + + + Care Team Providers + +------+ + | Care Director Of Training Name | Role | Phone | + [...] | | | | | | [place], | | | | | | [place] [address] | | | | | | [phone] | | | +--------+ + + + [...]
--- OUTSIDE RECORDS SUMMARY | ~2019-12-16 | XMS | Encounter Summary ---
Demographics + + + | Address | [address] | | | [place] [address] | + + + | Home Phone [...] [place] | | | | | [address] | | + + + + + Care Team Providers + +------+ + | Care Chucking Machine Set Up Operator Tool Name | Role | Phone | + +------+ + | Adilia Bob MINI BACCARAT DEALER | PCP | | + +------+ + [...] | | | | | Septic | [place], [place] | [place], | | | | | 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[address] | [place] [address] | | | | | knee, left | | Phone: | | | | | ([facility]) | | [phone] | | | | | Procedures | | Fax: | | | | | CONSULT TO | | [phone] | | | | | INFECTIOUS | [...] | | | | Loop Physician's | [place] [address] | | | | | Pavilion, 3rd floor | [phone] | | | | | [facility] [place] | | | | | | [address] | | | | | | [phone] | | | +--------+---------+ + + + [...] Lavinia Peck MD - 08/25/2012 10:10 PM [facility] Clinic Date: 08/25/2012 Clinic: Infectious Disease [...] Lavinia Peck M.D., Ph.D. MALLORY / HYACINTH [id number] / [id number] / [id number] / Lavinia Lam MD - 08/25/2012 9:30 AM PST This office note has been dictated. CSN #: [id number] I spent 45 minutes with the patient [...] | + + + + + | [facility] | [address] | [place] [address] | | | SERVICES, SPECIAL | JOY [...] Directory | | | | | | (VeriTweet). | | | | + + + [...] Directory | | | | | | (VeriTweet). | | | | + + + [...] | | | | | in the [facility] | | | | | | LaboratoryTest Directory | | | | | | (VeriTweet). | | | | + + + [...] # | | | | | | [id number]). Access | | | | | | complete set of age- | | | | | | and/or | | | | | | gender-specificreference | | | | | | intervals for this test | | | | | | in the [facility] | | | | | | LaboratoryTest Directory | | | | | | (VeriTweet).Performed | | | | | | by [facility] | | | | | | [facility],[address] [place] [address] | | | | | | [place] [address] | | | | | | [phone]. | | | | | | [facility], Magy Fernandez, | | | | | [...] [facility] | [address] | [place], [place] | | | UNIV P[facility] | | [address] | | + + + + + [...] - | | | | | | [place] | | + +-------+ + + + + + | Specimen | + + | Blood - Blood | + + + + + + + | Performing | Address | City/State/Zipcode | Phone Number | | Organization | | | | + + + + + | [employer] [facility] - | [address] | [place] [address] | | | [place] | | | | + + + + + documented in this encounter Visit Diagnoses + + | Diagnosis | + + | Osteomyelitis of knee region (HCC) - Primary Unspecified osteomyelitis, lower leg | + + documented in this encounter"
--- OUTSIDE RECORDS SUMMARY | ~2019-12-16 | XMS | Encounter Summary ---
Demographics + + + | Address | [address] | | | [place] [address] | + + + | Home Phone [...] [place] | | | | | [address] | | + + + + + Care Team Providers + +------+ + | Care Recovery Unit Operator Name | Role | Phone | [...] Pavilion | | | | | | [place], [place] | | | | | | [address] | | | | | | [phone] | | | +--------+ + + + [...]
--- OUTSIDE RECORDS SUMMARY | ~2019-12-16 | XMS | Encounter Summary ---
Demographics + + + | Address | [address] | | | [place] [address] | + + + | Home Phone [...] [place] | | | | | [address] | | + + + + + Care Team Providers + +------+ + | Care Passenger Car Cleaning Supervisor Name | Role | Phone | [...] | | | Orthopaedic Surgery | [place], [place] | | | | | [address] | [address] | | | | | [place], [place] | [phone] | | | | | [address] | | | | | | [phone] | | | +--------+ + + + [...]
--- OUTSIDE RECORDS SUMMARY | ~2019-12-16 | XMS | Encounter Summary ---
Demographics + + + | Address | [address] | | | [place] [address] | + + + | Home Phone [...] + | Grisel Marc | ECON | [address] | | | | | [place] | | | | | [address] | | + + + + + Care Team Providers + +------+ + | Care Head Of Measurement & Insights Name | Role | Phone | + [...] [place] | | | | | | [address] | | | | | | [phone] | | | +--------+------+ + + + [...] | + + + + + | [facility] | And | [place], [place] | [phone] | | [facility]ENTER | Streets | [address] | | + + + + + C-REACTIVE PROTEIN (06/25/2019 8:15 AM PST) + +-------+ + + + | Component | Value | Ref Range | Performed | Pathologist | | | | | At | Signature | + +-------+ + + + | C-REACTIVE | 0.6 | 0.0 - 0.9 mg/dL | [facility] | | | PROTEIN | | [...] + + | [facility] | [address] | [place], [place] | [phone] | | [facility] | [place] | [address] | | + + + + + documented in this encounter Visit Diagnoses + + | Diagnosis | + + | Osteomyelitis of knee region (HCC) Unspecified osteomyelitis, lower leg | + + documented in this encounter"
--- OUTSIDE RECORDS SUMMARY | ~2019-12-16 | XMS | Encounter Summary ---
Demographics + + + | Address | [address] | | | [place] [address] | + + + | Home Phone [...] [place] | | | | | [address] | | + + + + + Care Team Providers + +------+ + | Care Well Service Derrick Worker Name | Role | Phone | [...] of tibia or | | | | [place], [place] | | fibula; | | | | [address] | | Osteomyelitis of | | | | [phone] | | knee region (HCC); | | | | | | Septic 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| | | | | knee, left (HCC); | | | | | | AVN (avascular | | | | | | necrosis of bone) | | | | | | ([facility]) | +--------+---------+ + + + [...] surgeries scheduled to take place on the [place] at the [facility]: Surgeries scheduled in the [facility] ([address] [place] [address]): registration is located on the 4th floor of [facility] (Day Surgery). Surgeries scheduled in the [facility]: registration is located on the 9th floor. Surgeries scheduled in [facility]: registration is located on the 6th floor. Surgeries scheduled in the [facility]: registration is located i n the [facility] on the first floor. For surgeries scheduled to take place at the [facility]: registration is l [...] you use specialized medical equipment at [facility], please check with your provider before [...] in conjunction with Dr. Jovany almanzar from [place]. Her HPI is copied from her previous [...] plateau fracture by Dr. Jerald Don in [place] on 12/10/11. Calcium phosphate cement was used [...]
--- OUTSIDE RECORDS SUMMARY | ~2019-12-16 | XMS | Encounter Summary ---
Demographics + + + | Address | [address] | | | [place] [address] | + + + | Home Phone [...] + | Grisel Marc | ECON | [address] | | | | | [place] | | | | | [address] | | + + + + + Care Team Providers + +------+ + | Care Caterer'S Aide Name | Role | Phone | [...] | Sports Medicine & | STANTON Johnson [address] [facility] | cruciate ligament of | | | | Orthopaedic Surgery | [facility] | left knee, | | | | [address] | [place], [place] | subsequent encounter | | | | [place], [place] | [address] | (Primary Dx); | | | | [address] | [phone] | Articular cartilage | | | | [phone] | | disorder; | | | | [...] the home. Patient was located in the [facility] at the time of the visit. Telepresenter (relative and/or physician gynecologist) was not used during the visit. The [...] increased pain on 09/25/2019, she went to [facility] ED in [place], [place] for further evaluation. The patient reports [...] file Gets together: Not on file Attends anglican service: Not on file Active member of [...] History Narrative Lives with her parents in [place]. Has adequate support should surgery be [...] normal stability on varus /valgus stress examination [facility] Radiology: X-ray examination Left knee 06/04/19 demonstrates [place] changes and mild medial joint space narrowing. There are sclerotic changes noted tibial and femur MRI left knee from [facility] in [place] demonstrates Chronic ACL tear and medial join [...] follow up with [facility] for possible osteochondral allograft and reconstructio n surgery. She will continue to work on smoking cessation, as this is required for [facility]. T he patient reports she is [...] an effort to get her in to [facility]. Follow up: PRN, pt instructed to contact the clinic once smoking cessation is complete for new referral to [facility], or if she has any additional questions or concerns. I spent 20 minutes reviewing the patient s query, recent records, relevant images/results , communicating with the patient about their chief complaint & performing documentation. Bambi Bautista PA-C Orthopedic Physician Concrete Bucket Unloader [facility] Orthopaedics and Rehabilitation [facility] Orthopaedics and Sports Medicine [address] [place] [address] Office: [phone] documented in this encoun ter Plan of [...]
--- OUTSIDE RECORDS SUMMARY | ~2019-12-16 | XMS | Encounter Summary ---
Demographics + + + | Address | [address] | | | [place] [address] | + + + | Home Phone [...] [place] | | | | | [address] | | + + + + + Care Team Providers + +------+ + | Care Continuous Miner Operator Helper Name | Role | Phone [...] | | | | Hospital Admitting | [place], [place] | | | | | Desk Located on the | [address] | | | | | 9th floor | [phone] | | | | | [place], [place] | | | | | | [address] | Viktoriya Jennings MD | | | | | | [address] | | | | | | [place] Rodrigues [facility] | | | | | | [place] [address] | | | | | | [phone] | | | | | | | | +--------+ + + + + Anesthesia Record + + + + + | Procedure Name | Responsible | Anesthesia Start | Anesthesia Stop Time | | | Anesthesiologist | Time | | + + + + + | IRRIGATION AND | Shakila Burgos MD | 09/02/12 1407 | 09/02/12 5285 | | DEBRIDEMENT OF LEFT | | [...]
--- OUTSIDE RECORDS SUMMARY | ~2019-12-16 | XMS | Clinical Summary ---
Demographics + + + | Address | [address] | | | [place] [address] | + + + | Home Phone | | + + + | Preferred Language | Unknown | + + + | Marital Status | | + + + | Orthodoxy Affiliation | Unknown | + + + | Race | Unknown | + + + | Ethnic Group | Unknown | + + + Author + + + | Author | [facility] | | | and [place] | + + + | Organization | [facility] | | | [...] Team Providers + +------+ + | Care Svp Monetization Name | Role | Phone | + [...] + | Maternal Aunt | | | [place] | | | | (Age | | [...] | [employer] | [employer] | [id number] | | [phone] | | Medica | | MEDICAID HMO [...] nayla | | | 2 (Home) | [address] | + +--------+ +--------+ + + Advance Directives + + + + + | Type | Date Recorded | Patient | Explanation | | | | Court Reporter | | + + + + + | Power of | | | | | Licensed Psychologist Director | | | | + + + + + | Advance | 06/19/2019 2:16 | | | | Directive | PM | | | + + + + +
--- OUTSIDE RECORDS SUMMARY | ~2019-12-16 | XMS | Encounter Summary ---
Demographics + + + | Address | [address] | | | [place] [address] | + + + | Home Phone [...] [place] | | | | | [address] | | + + + + + Care Team Providers + +------+ + | Care Machine Installer Name | Role | Phone | [...]
--- OUTSIDE RECORDS SUMMARY | ~2019-12-16 | XMS | Encounter Summary ---
Demographics + + + | Address | [address] | | | [place] [address] | + + + | Home Phone [...] [place] | | | | | [address] | | + + + + + Care Team Providers + +------+ + | Care Tire Service Supervisor Name | Role | Phone [...] AND | | 2012 | | [facility] | | DEBRIDEMENT OF LEFT | | | | [address] | | PROXIMAL TIBIAL WITH | | | | Hospital Admitting | | PLACEMENT OF CASO4 | | | | Desk Located on the | | ANTIBIOTICS BEADS; | | | | 9th floor | | microbiology x 11 | | | | [place], [place] | | | | | | [address] | | | +--------+---------+ + + + [...] MD - 09/10/2012 8:12 AM PST [facility] [place] DEPARTMENT OF ORTHOPAEDICS & REHABILITATION INPATIENT HOSPITAL DISCHARGE SUMMARY & INTERDISCIPLINARY INSTRUCTIONS Patient: Sandy Marc CSN: [id number] Admission Date: 09/02/2012 Discharge Date: 09/05/2012 Attending Physician: Alton Hernandez MD PCP: SAEED Presley Service: [facility] Orthopaedics & Rehabilitation Diagnoses Principal Final Diagnosis: [...] for > 5 years. , Historical Med [facility] Orthopaedic Service Pain Policy At the 6-week [...] our pleasure. David Peter MD Pager # [phone] documented in this enc ounter Discharge Instructions Instructions Sally Gupta RN - 09/04/2012Formatting of this note might be different f rom the original. ADDITIONAL INFORMATION: [facility] will provide IV antibiotics and education. They can be r eached at: [phone]. You will need to go to [facility] ([phone] - Unit C) for PICC line dressin [...] Arthritis: After Your Visit", log into your [employer] account at [email or web address]. You can enter C265 in the [employer] Library" search box. Not on [employer]? Review the MyChart section of your After Visit Summary for directions on aysha norris to sign up. [phone] [employer]. Care instructions adapted under license by [facility] [place]. This care instruction is for use with your licensed healthcar e professional. If you have questions about a medical condition or this instruction, always ask your healthcare professional. [employer] disclaims any warranty or liabili ty for your use of this information. Content Version: 9.5.95684; Last Revised: July 18, 2011 Patient Education [...] provider under separate cover. Anticipated OPAT Setting: [facility] [phone] f: [phone] ID/OPAT Clinic follow-up: OPAT clinic visit in 1-2 weeks after discharge in conjunction wit h [facility] Orthopedic Service. We will call to schedule this appointment after patient is disch arged. Interdisciplinary Communication: Please notify OPAT clinic 24-48 hours prior to discharge b y calling [phone] (We need anticipated discharge date & where patient is going; i.e. name, ph one, and fax for home infusion vendor, alf facility, or daily outpatient infusio n center providing outpatient antibiotic therapy services.) [facility] Department of Infectious Disease Outpatient IV Antibiotic Therapy Clinic (OPAT) Pager ID: [phone] [facility] Ravi. Mail Code Z620 [place] [address] OPAT teaching note: Education and training for [...] spent on counseling and/or coordination of care. [facility] DEPARTMENT: IDC INFECT DIS CONSULT - [id number] Place of Service: Inpatient Date of Service: 09/04/2012 CSN: [id number] Suggested Modifier: OPATC David Angel MD - [...] made with LENCHO Peter MD Pager # [phone] David Angel MD - 09/03/2012 7:53 AM [...] 6 weeks David Peter MD Pager # [phone] Malathi Mccauley MD - 09/03/2012 1:27 AM [...] MD [facility] [place] Department of Orthopaedics & Rehabilitation [address] [place] [address] Mail Code: OP31 [facility] [address] documented in this e ncounter Plan of [...] | + + + + + | [facility] | [address] | [place] [address] | | | ELLIE LONG | JOY [...] [facility] | [address] | [place] [address] | | | SERVICES, ELLIE | PARK [...] + + + + + | [facility] [employer] | [address] | [place] [address] | | | SERVICES, CORE | [address] | | | + + + + + OPERATION RECORD (09/03/2012 2:02 PM PST) + + | Transcriptions | + + | David Peter MD - 09/03/2012 12:20 PM PST Date: 09/02/2012ttending | | Surgeon: Alton Hernandez M.D.Prime Broker(s): David | | TAQUERIA Peterreoperative Diagnosis(es):1. Left [...] by | | Dr. Jerald Don in [place] on December 10, 2011. At that time, [...] the reamers. We then used our canal supervisor electronics processing | | to thoroughly wash out the [...] Thiago, M.Engr.General Orthopaedics, Trauma JUAN C / [id number] / [id number] / [id number] /D: | | 09/02/2012T: 09/03/2012 | | | | | + + X-RAY PORTABLE CHEST 1 VIEW (09/03/2012 9:51 AM PST) + + + + + + | Component | Value | Ref Range | Performed | Pathologist | | | | | At | Signature | + + + + + + | X-RAY | STUDY: MI CHEST 1 VIEW | | | | [...] (Unit/Room #): | | | 9k Diagnosis: 805018 Osteomyelitis of knee region [id number] AVN | | | (avascular necrosis of bone) 029723 Pathologic fracture of tibia or | | | fibula 168133 Septic arthritis of knee, left Indications: (Select [...] Lot # (or | | | Sticker): [id number] INSERTION SITE: - Basilic Left Local | [...] 09/03/2012Start Time: 0900Patient Location (Unit/Room #): 9kDiagnosis: 065716 | | Osteomyelitis of knee [id number] AVN (avascular necrosis of bone)705413 Pathologic | | fracture of tibia or [id number] Septic arthritis of knee, leftIndications: (Select all [...] CATHETERProduct | | Name: KrystianLisction: Darian Fr60cm Jxhl7br TrimmedLot # (or Sticker): | | [id number] SITE: - BasilicLeftLocal anesthetic used: lidocaineSedation used: [...] |8cm Trimmed | |Lot # (or Sticker): [id number] | | | |INSERTION SITE: - Basilic [...] [facility] | [address] | [place] [address] | | | SERVICES, CORE | PARK [...] | + + + + + | [facility] | [address] | [place] [address] | | | SERVICES, ELLIE | JOY [...] | | + +---------+ + + | [facility] DEPARTMENT OF | | | | | [...] | | | Final SMEAR:No | | [place] | | | | fungal elements seen [...] + | [facility] - | [address] | [place] [address] | | | [place] | | | | + + + [...] | | Final SMEAR:AFB not | | [place] | | | | detected source: 10) [...] | + + + + + | [facility] - | [address] | [place] [address] | | | [place] | | | [...] + | [facility] - | [address] | [place] [address] | | | [place] | | | | + + + [...] | | Final SMEAR:AFB not | | [place] | | | | detected source: left [...] | + + + + + | [facility] - | [address] | [place] [address] | | | [facility] | | | | + [...] + | [facility] - | [address] | [place] [address] | | | [place] | | | | + + + [...] + | [facility] - | [address] | [place] [address] | | | [place] | | | [...] | + + + + + | [facility] - | [address] | [place] [address] | | | [place] | | | | + + + [...] | | Final SMEAR:AFB not | | [place] | | | | detected source: left [...] | + + + + + | [facility] - | [address] | [place] [address] | | | [place] | | | | + + + [...] | + + + + + | [facility] - | [address] | [place] [address] | | | [place] | | | [...] | | | Final SMEAR:No | | [place] | | | | fungal elements seen [...] + | [facility] - | [address] | [place] [address] | | | [place] | | | | + + + [...] | | Final SMEAR:AFB not | | [place] | | | | detected source: left [...] | + + + + + | [facility] - | [address] | [place] [address] | | | [place] | | | [...] | + + + + + | [facility] - | [address] | [place] [address] | | | [place] | | | [...] + | [facility] - | [address] | [place] [address] | | | [place] | | | [...] | | Final SMEAR:AFB not | | [facility] | | | | detected [...] + | [facility] - | [address] | [place] [address] | | | [place] | | | [...] + | [facility] - | [address] | [place] [address] | | | [place] | | | [...] + + + | [facility] - | [address] | [place] [address] | | | [place] | | | | + + + [...] + | [facility] - | [address] | [place] [address] | | | [place] | | | [...] | + + + + + | [facility] - | [address] | [place] [address] | | | [place] | | | | + + + [...] | + + + + + | [facility] - | [address] | [place] [address] | | | [place] | | | | + + + [...] + | [facility] - | [address] | [place] [address] | | | [place] | | | | + + + [...] | | | RESULT | | | [facility] | | | | Final GRAM STAIN:No | | [place] | | | | squamous epithelial | [...] + | [facility] - | [address] | [place], [place] [address] | | | [place] | | | [...] + | [facility] - | [address] | [place] [address] | | | [place] | | | [...] | | Final SMEAR:AFB not | | [place] | | | | detected source: 3) [...] + | [facility] - | [address] | [place] [address] | | | [place] | | | [...] + | [facility] - | [address] | [place] [address] | | | [place] | | | | + + + [...] + | [facility] - | [address] | [place] [address] | | | [place] | | | [...] + | [facility] - | [address] | [place] [address] | | | [place] | | | [...] + | [facility] - | [address] | [place] [address] | | | [place] | | | [...] + | [facility] - | [address] | [place] [address] | | | [place] | | | | + + + [...] | | Final SMEAR:AFB not | | [place] | | | | detected source: left [...] + | [facility] - | [address] | [place] [address] | | | [place] | | | | + + + [...] + | [facility] - | [address] | [place] [address] | | | [place] | | | | + + + [...] | | | Final CULTURE | | [place] | | | | RESULT:No growth | [...] + | [facility] - | [address] | [place] [address] | | | [place] | | | | + + + [...] 0.1-cm, | | | | | | soft,pink-ugerrero tissue. | | | | | | [...] | + + + + + | [facility] | [address] | [place] [address] | | | PATHOLOGY | [address] [...]
--- OUTSIDE RECORDS SUMMARY | ~2019-12-16 | XMS | Encounter Summary ---
Demographics + + + | Address | [address] | | | [place] [address] | + + + | Home Phone [...] [place] | | | | | [address] | | + + + + + Care Team Providers + +------+ + | Care Multimedia Programmer Name | Role | Phone | + [...]
--- OUTSIDE RECORDS SUMMARY | ~2019-12-16 | XMS | Encounter Summary ---
Demographics + + + | Address | [address] | | | [place] [address] | + + + | Home Phone [...] + | Grisel Marc | ECON | [address] | | | | | [place] | | | | | [address] | | + + + + + Care Team Providers + +------+ + | Care Digital Media Buyer Name | Role | Phone | + [...] | | | | | | [place] [address] | | | +--------+ + + + [...]
--- OUTSIDE RECORDS SUMMARY | ~2019-12-16 | XMS | Encounter Summary ---
Demographics + + + | Address | [address] | | | [place] [address] | + + + | Home Phone [...] + | Grisel Marc | ECON | [address] | | | | | [place] | | | | | [address] | | + + + + + Care Team Providers + +------+ + | Care Floating Labor Gang Supervisor Name | Role | Phone [...] | | | | of right | [address] | [address] | | | | | patella, | [address] | [address] | | | | | initial | [place], [place] | [place] | | | | | encounter | [address] | [address] | | | | | Pain in | Phone: | Phone: | | | | | right knee | [phone] | [phone] | | | | | | Fax: | Fax: | | | | | | [phone] | [phone] | +--------+--------+ + + + + Encounter [...] | | [address] | [address] | (Primary Dx) | | | | [address] | [phone] | | | | | [place], [place] | | | | | | [address] | | | | | | [phone] | | | +--------+---------+ + + + [...]
--- OUTSIDE RECORDS SUMMARY | ~2019-12-16 | XMS | Encounter Summary ---
Demographics + + + | Address | [address] | | | [place] [address] | + + + | Home Phone [...] [place] | | | | | [address] | | + + + + + Care Team Providers + +------+ + | Care Lamp Cleaner Name | Role | Phone | [...] floor | | | | | | [place], [place] | | | | | | [address] | | | | | | [phone] | | | +--------+------+ + + + [...] + + + + + | [facility] | [address] | [place] [address] | | | ELLIE LONG | JO[address] [...] + | [facility] - | [address] | [place] [address] | | | [place] | | | | + + + [...] + + + + + | [facility] | [address] [facility] [address] | [place] [address] | | | SERVICES, CORE | JO[address] [...] | | | LABORATORY | | | [place] | | | SERVICES, | | | [...] [facility] | [address] | [place] [address] | | | SERVICES, CORE | [address] | | | + + + + + documented in this encounter Visit Diagnoses + + | Diagnosis | + + | Osteomyelitis of knee region (HCC) Unspecified osteomyelitis, lower leg | + + documented in this encounter"
--- OUTSIDE RECORDS SUMMARY | ~2019-12-16 | XMS | Encounter Summary ---
Demographics + + + | Address | [address] | | | [place] [address] | + + + | Home Phone [...] [place] | | | | | [address] | | + + + + + Care Team Providers + +------+ + | Care Jumpbasting Collar Baster Name | Role | Phone | + [...] | | | | necrosis of | [facility] | [place] | | | | | bone) ([facility]) | Rd | [address] | | | | | Septic | [place], [place] | [place], | | | | | 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[address] | [place] [address] | | | | | knee, left | | Phone: | | | | | ([facility]) | | [phone] | | | | | Procedures | | Fax: | | | | | CONSULT TO | | [phone] | | | | | INFECTIOUS | [...] | long-term (current) | | | | [place], [place] | | use of antibiotics | | | | [address] | | | | | | [phone] | | | +--------+---------+ + + + [...] DISEASES CLINIC FOLLOW UP Primary Care Physician: [facility] [address], [address] [place] [address] Ms. Marc presents to Infectious Diseases Clinic regarding scheduled follow up. The patient was seen in conjunction with Dr. Alton Hernandez today. The following history was obtained prior to today's OPAT visit from my own review of the bethany perez's recent [facility] hospital admission, including but not limited [...] doing rodeo on her horse going around [employer], and she was leaning out away from [employer]. Her legs spontaneously broke with pathological fracture. [...] placement of antibiotic beads 09/03/2012: HIRAM Silva [facility] Operative Findings: We began by [...] intramedullary canal. We then used our canal video system repairer to thoroughly washout the intramedullary canal as [...] She was seen in the ER in [place] and had a CT Thor ax [...] care provider and surgeon. Brigid Hardy PA-C [facility] Department of Infectious Diseases Outpatient IV Antibiotic Therapy Clinic (OPAT) [phone] Pager ID: [phone] Mail Code L457 [place] [address] documented in this encounter Plan of Treatment Not on filedocumented as of this encounter Visit Diagnoses + + | Diagnosis | + + | Osteomyelitis of knee region (HCC) - Primary Unspecified osteomyelitis, lower leg | + + | Encounter for long-term (current) use of antibiotics | + + documented in this encounter
--- OUTSIDE RECORDS SUMMARY | ~2019-12-16 | XMS | Encounter Summary ---
Demographics + + + | Address | [address] | | | [place] [address] | + + + | Home Phone [...] + | Grisel Marc | ECON | [address] | | | | | [place] | | | | | [address] | | + + + + + Care Team Providers + +------+ + | Care Metrologist Name | Role | Phone | + [...] | | | | Selene [place] | [address] | | | | | [address] | [phone] | | | | | [place] | | | | | | [address] | | | | | | [phone] | | | +--------+ + + + [...]
--- OUTSIDE RECORDS SUMMARY | ~2019-12-16 | XMS | Encounter Summary ---
Demographics + + + | Address | [address] | | | [place] [address] | + + + | Home Phone [...] + | Grisel Marc | ECON | [address] | | | | | [place] | | | | | [address] | | + + + + + Care Team Providers + +------+ + | Care Quarter Section Ironer Name | Role | Phone | + [...] [place] | | | | | [address] | [address] | | | | | | [phone] | | | | | | | [...] | | Results for this | | [address] | e | 10:19 AM | | procedure are in the | | | | PST | | results section. | + +--------+ + + + documented in this encounter Results ORT KNEE 3V 81482 (07/14/2015 10:19 AM PST) + + | Specimen | + + | | + + + + + | Narrative | Performed At | + + + | Name: | [facility] | | SANDY MARC | DEPARTMENT OF | | Phys: Mars Nicolas MD | RADIOLOGY | | | | | : 1990 Age: 24 Sex: F | | | Acct: [id number] Loc: ORTH | | | | | | Exam Date: 07/14/2015 Status: PRE CLI | | | Radiology No: [id number] | | | Unit No: | | | EXAM# TYPE/EXAM | | | RESULT | | | [id number] ORT/ORT KNEE 3V 73 | | | EXAM: ORT | | | KNEE 3V 99678 CLINICAL HISTORY: | | | Knee pain. [...] | Transcribed Date/Time: 07/14/2015 | | | (6731) Fashion Design Professor: FLUENCY PAGE 1 | | | Signed Report | | | | | + + + + + | Procedure Note | + + | Interface, Radiology Results - 12/21/2015 11:29 AM PDT | | Name: SANDY MARC | | Phys: Mars Nicolas MD : | | 1990 Age: 24 Sex: F Acct: [id number] | | Loc: ORTH Exam Date: 07/14/2015 | | Status: PRE CLI Radiology No: [id number] | | Unit No: EXAM# TYPE/EXAM | | RESULT [id number] ORT/ORT KNEE 3V | | 73 EXAM: ORT KNEE 3V | | 65712 CLINICAL HISTORY: Knee pain. Subacute injury. COMPARISON: [...] | | | Transcribed Date/Time: 07/14/2015 (1022) Fashion Design Professor: FLUENCY PAGE 1 | | Signed Report [...] | | | | Transcribed Date/Time: 07/14/2015 (4732) | | Fashion Design Professor: YORDY | | | | | | [...]
--- OUTSIDE RECORDS SUMMARY | ~2019-12-16 | XMS | Encounter Summary ---
Demographics + + + | Address | [address] | | | [place] [address] | + + + | Home Phone [...] [place] | | | | | [address] | | + + + + + Care Team Providers + +------+ + | Care Paste Worker Name | Role | Phone | [...] | | | | Loop Physician's | [place] [address] | | | | | [place], 3rd floor | [phone] | | | | | [place], [place] | | | | | | [address] | | | | | | [phone] | | | +--------+ + + + [...]
--- OUTSIDE RECORDS SUMMARY | ~2019-12-16 | XMS | Encounter Summary ---
Demographics + + + | Address | [address] | | | [place] [address] | + + + | Home Phone [...] [place] | | | | | [address] | | + + + + + Care Team Providers + +------+ + | Care Assistant Professor Of Biology Name | Role | Phone | + [...] [place] | | | | | | [place], [place] | | | | | | [address] | | | | | | [phone] | | | +--------+ + + + [...] | | e | of knee, left ([facility]) | | + +------+--------+ + + | SYNOVIAL FLUID, | Lab | Routin | Septic arthritis | Ordered: 02/12/2013 | | CRYSTALS | | e | of knee, left ([facility]) | | + +------+--------+ + + | [...]
--- OUTSIDE RECORDS SUMMARY | ~2019-12-16 | XMS | Encounter Summary ---
Demographics + + + | Address | [address] | | | [place] [address] | + + + | Home Phone [...] + | Grisel Marc | ECON | [address] | | | | | [place] | | | | | [address] | | + + + + + Care Team Providers + +------+ + | Care Senior Policy Associate Name | Role | Phone | [...] | | | | | Unspecified | [address] | [address] | | | | | tear of | [place], | [address] | | | | | unspecified | [place] | [place], [place] | | | | | meniscus, | [address] | [address] | | | | | current | Phone: | Phone: | | | | | injury, left | [phone] | [phone] | | | | | knee, | Fax: | Fax: | | | | | initial | [phone] | [phone] | | | | | encounter | [...] | | | | | | NM DUPLEX | | | | | | [...] [address] | | | | | [place], | [place], [place] | | | | | [place] [address] | [address] | | | | | [phone] | | | | | | | [...] + + + | [address] | [facility] | | [place] [address] | [facility] | | [phone] Name: SANDY MARC Phys: | RADIOLOGY | | JACI BLUE : 1990 Sex: F CSN: | | | [id number] MR# [id number] Exam Date: 06/04/2019 | | | EXAM: [...] Transcribed | | | Date/Time: 06/04/2019 11:28 Early Childhood Specialist: FLUENCY | | + + + + + | Procedure Note | + + | Interface, Radiology Results - 06/04/2019 11:36 AM PDT [address] | | [address] [place] [address] | | Name: SANDY MARC Phys: JACI BLUE : 1990 Sex: F | | CSN: [id number] MR# [id number] Exam Date: 06/04/2019 EXAM:LEFT LOWER EXTREMITY | [...] | | |Transcribed Date/Time: 06/04/2019 11:28 | |Early Childhood Specialist: FLUENCY | | | | | [...]
--- OUTSIDE RECORDS SUMMARY | ~2019-12-16 | XMS | Encounter Summary ---
Demographics + + + | Address | [address] | | | [place] [address] | + + + | Home Phone [...] [place] | | | | | [address] | | + + + + + Care Team Providers + +------+ + | Care Lead Sustainability Specialist Name | Role | Phone | [...] [address] | | | | | | [place], [place] | | | | | | [address] | | | | | | [phone] | | | +--------+ + + + [...]
--- OUTSIDE RECORDS SUMMARY | ~2019-12-16 | XMS | Encounter Summary ---
Demographics + + + | Address | [address] | | | [place] [address] | + + + | Home Phone [...] [place] | | | | | [address] | | + + + + + Care Team Providers + +------+ + | Care Molecular Pathologist Name | Role | Phone | + [...] [facility] | | | | | | [address] | | | | | | Loop Physician's | | | | | | [place], [facility] Floor | | | | | | [place], [place] | | | | | | [address] | | | | | | [phone] | | | +--------+ + + + [...] | + +---------+ + + | [facility] DEPARTMENT OF | | | | | RADIOLOGY | | | | + +---------+ + + documented in this encounter Visit Diagnoses + + | Diagnosis | + + | Osteomyelitis of knee region (HCC) Unspecified osteomyelitis, lower leg | + + documented in this encounter"
--- OUTSIDE RECORDS SUMMARY | ~2019-12-16 | XMS | Encounter Summary ---
Demographics + + + | Address | [address] | | | [place] [address] | + + + | Home Phone [...] + | Grisel Marc | ECON | [address] | | | | | [place] | | | | | [address] | | + + + + + Care Team Providers + +------+ + | Care Inspection Manager Name | Role | Phone | [...] | | | [address] | [address] | | | | | [place] | [phone] | | | | | [address] | | | | | | [phone] | | | +--------+ + + + [...]
--- OUTSIDE RECORDS SUMMARY | ~2019-12-16 | XMS | Encounter Summary ---
Demographics + + + | Address | [address] | | | [place] [address] | + + + | Home Phone [...] [place] | | | | | [address] | | + + + + + Care Team Providers + +------+ + | Care Supervisor Paste Mixing Name | Role | Phone | + [...]
--- OUTSIDE RECORDS SUMMARY | ~2019-12-16 | XMS | Encounter Summary ---
Demographics + + + | Address | [address] | | | [place] [address] | + + + | Home Phone [...] [place] | | | | | [address] | | + + + + + Care Team Providers + +------+ + | Care Car Salter Name | Role | Phone | + [...]
--- OUTSIDE RECORDS SUMMARY | ~2019-12-16 | XMS | Encounter Summary ---
Demographics + + + | Address | [address] | | | [place] [address] | + + + | Home Phone [...] [place] | | | | | [address] | | + + + + + Care Team Providers + +------+ + | Care Box Car Washer Name | Role | Phone | [...] Pavilion | | | | | | [place], [place] | | | | | | [address] | | | | | | [phone] | | | +--------+ + + + [...]
--- OUTSIDE RECORDS SUMMARY | ~2019-12-16 | XMS | Encounter Summary ---
Demographics + + + | Address | [address] | | | [place] [address] | + + + | Home Phone [...] + | Grisel Marc | ECON | [address] | | | | | [place] | | | | | [address] | | + + + + + Care Team Providers + +------+ + | Care Print Room Worker Name | Role | Phone | [...] | | | | | Unspecified | [address] | [address] | | | | | tear of | [place], | St [place] | | | | | unspecified | [place] | [place], [place] | | | | | meniscus, | [address] | [address] | | | | | current | Phone: | Phone: | | | | | injury, left | [phone] | [phone] | | | | | knee, | Fax: | Fax: | | | | | initial | [phone] | [phone] | | | | | encounter | [...] | | | | | | | MD DUPLEX | | | | | | [...] [address] | | | | | [place], | [place], [place] | | | | | [place] [address] | [address] | | | | | [phone] | [phone] | | | | | | | [...] | + + + | [address] | [facility] | | [place] [address] | [facility] | | [phone] Name: SANDY MARC Phys: | RADIOLOGY | | JACI BLUE : 1990 Sex: F CSN: | | | [id number] MR# [id number] Exam Date: 06/04/2019 | | | EXAM: [...] Transcribed | | | Date/Time: 06/04/2019 11:28 Polymer Chemist: FLUENCY | | + + + + + | Procedure Note | + + | Interface, Radiology Results - 06/04/2019 11:36 AM PDT [address] | | [address] [place] [address] | | Name: SANDY MARC Phys: JACI BLUE : 1990 Sex: F | | CSN: [id number] MR# [id number] Exam Date: 06/04/2019 EXAM:LEFT LOWER EXTREMITY | [...] | | |Transcribed Date/Time: 06/04/2019 11:28 | |Polymer Chemist: FLUENCY | | | | | | [...]
--- OUTSIDE RECORDS SUMMARY | ~2019-12-16 | XMS | Encounter Summary ---
Demographics + + + | Address | [address] | | | [place] [address] | + + + | Home Phone [...] [place] | | | | | [address] | | + + + + + Care Team Providers + +------+ + | Care Bead Machine Operator Name | Role | Phone | + +------+ + | No Pcp Per Patient | PCP | Unavailable | + +------+ + Encounter Details +--------+ + + + + | Date | Type | Department | Care Team | Description | +--------+ + + + + | 07/21/ | Manager Mining | Orthopaedics at | Alton Hernandez MD | Leg pain (Primary | | 2011 | | [facility] [address] | | Dx) | | | | [address] | | | | | | Mailcode: [id number] | | | | | | [facility] | | | | | | [place], [place] | | | | | | [address] | | | | | | [phone] | | | +--------+ + + + [...]
--- OUTSIDE RECORDS SUMMARY | ~2019-12-16 | XMS | Clinical Summary ---
Demographics + + + | Address | [address] | | | [place] [address] | + + + | Home Phone | | + + + | Preferred Language | Unknown | + + + | Marital Status | Single | + + + | Christianity Affiliation | Unknown | + + + | Race | Unknown | + + + | Ethnic Group | Unknown | + + + Author + + + | Author | [place] [facility] (Historical as of | | | 03-27-19) | + + + | Organization | [facility] (Historical as of | | | 03-27-19) [...] Providers + +------+ + | Care Assistant News Director Name | Role | Phone | [...] + | Maternal Aunt | | | [place] | | | | (Age | | [...] +------+-------+ + | MEDICAID | POER | [id number] | | | [address] | | | N | | | | [place]AH [place] | | | [place] | | | | [address] | | | [employer]OC[employer]ATE | | | | | + +--------+ [...] | nayla | | | [address] | [address] | + +--------+ +--------+ + +
--- OUTSIDE RECORDS SUMMARY | ~2019-12-16 | XMS | Encounter Summary ---
Demographics + + + | Address | [address] | | | [place] [address] | + + + | Home Phone [...] [place] | | | | | [address] | | + + + + + Care Team Providers + +------+ + | Care Slip Filler Name | Role | Phone | [...] | LADRIEN | | | | | [address] | | | | | | Loop Physician's | | | | | | [place], 3rd floor | | | | | | [place], [place] | | | | | | [address] | | | | | | [phone] | | | +--------+ + + + [...]
--- OUTSIDE RECORDS SUMMARY | ~2019-12-16 | XMS | Encounter Summary ---
Demographics + + + | Address | [address] | | | [place] [address] | + + + | Home Phone [...] [place] | | | | | [address] | | + + + + + Care Team Providers + +------+ + | Care Practice Managers Name | Role | Phone | + [...] | | | | [address] | [address] | | | | | [address] [place] | [phone] | | | | | [place] | | | | | | [address] | | | | | | [phone] | | | +--------+ + + + [...]
--- OUTSIDE RECORDS SUMMARY | ~2019-12-16 | XMS | Encounter Summary ---
Demographics + + + | Address | [address] | | | [place] [address] | + + + | Home Phone [...] [place] | | | | | [address] | | + + + + + Care Team Providers + +------+ + | Care Outboard Motors Experimental Mechanic Name | Role | Phone [...] | | | | necrosis of | [facility] | [place] | | | | | bone) (HCC) | Rd | [address] | | | | | Septic | [place], [place] | [place], | | | | | 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[address] | [place] [address] | | | | | knee, left | | Phone: | | | | | ([facility]) | | [phone] | | | | | Procedures | | Fax: | | | | | CONSULT TO | | [phone] | | | | | INFECTIOUS | [...] | | | Osteomyeliti | Family | [address] [facility] | | | | | s of knee | Health | [facility] | | | | | region ([facility]) | Associates | Rd [place], | | | | | AVN | [address] | [place] | | | | | (avascular | St, [address] | [address] | | | | | necrosis of | [place], | | | | | | bone) ([facility]) | [place] [address] | | | | | | Pathologic | Phone: | | | | | | fracture of | [phone] | | | | | | tibia or | Fax: | | | | | | fibula | [phone] | | | | | | Septic | | | | | | | 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| | | | | | knee, left | | | | | | | ([facility]) | | | | | | | Procedures | | | | | | | REQUEST TO | | | | | | | SURGERY | | | | | | | PIPELINE INTEGRITY ENGINEER | | | | | | | ID PARTIAL | | | | | | | REMOVAL OF | | | | | | | TIBIA ID | | | | | | | INSERTION | | | | | | | DRUG IMPLANT | | | | | | | DEVICE ID | | | | | | | KNEE | | | | | | | SCOPE,SHAVE | | | | | | | ARTICULAR | | | | | | | CART ID | | | | | | | [...] of knee | Mirza Perez | Rd [place] | | | | | region ([facility]) | Rd | Research | | | | | Procedures | [place], [place] | [place] | | | | | MRI KNEE | [address] | [place], [place] | | | | | LT WWO CONT | Phone: | [address] | | | | | | [phone] | Phone: | | | | | | Fax: | [phone] | | | | | | [phone] | Fax: | | | | | | | [phone] | +--------+--------+ + + + + Reason [...] s, lower leg | REFERRING | Rd [place], | | | | | L medial | PROVIDER PER | [place] | | | | | tibial | PT | [address] | | | | | plateau fx [...] | [facility] | | of bone) ([facility]); | | | | [place], [place] | | Pathologic fracture | | | | [address] | | of tibia or fibula; | | | | [phone] | | Septic 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| | | | | knee, left ([facility]) | +--------+---------+ + + + [...] might be different fr om the original. [facility]- New Patient Referring Physician: [...] plateau fracture by Dr. Jerald Don in [place] on 12/10/11. Calcium phosphate cement was used [...] MRI w/ contrast done on 07/09/12 at [facility], but are unable to view the images [...] subchondral | | | | | | M3xdyqsh hyperintensity | | | | | | [...] | | + +---------+ + + | [facility] DEPARTMENT OF | | | | [...] + | [facility] - AIRPORT - | [address] | [place] [address] | | | INLET | | | | + + + [...] | + + + + + | [facility] | [address] [facility] | [place] [address] | | | SERVICES, CORE | PARK [...] | | | LABORATORY | | | GREEK | | | SERVICES, | | | [...] | + + + + + | [facility] | [address] | [place] [address] | | | SERVICES, CORE | JOY [...] | Procedure Note | + + | eH Layne - 08/14/2012 8:41 PM PST | [...]
--- OUTSIDE RECORDS SUMMARY | ~2019-12-16 | XMS | Encounter Summary ---
Demographics + + + | Address | [address] | | | [place] [address] | + + + | Home Phone [...] [place] | | | | | [address] | | + + + + + Care Team Providers + +------+ + | Care Ceo Ziff Davis Name | Role | Phone | + +------+ + | Adilia Bob RAT FARMER | PCP | | + +------+ + Encounter Details +--------+ + + + + | Date | Type | Department | Care Team | Description | +--------+ + + + + | 11/25/ | Services Host | Orthopaedics at | Alton Hernandez MD | Osteomyelitis of | | 2012 | | [facility] [address] | | knee region (HCC) | | | | [address] | | (Primary Dx); | | | | Mailcode: [id number] | | Pathologic fracture | | | | [facility] | | of tibia or fibula | | | | [place], [place] | | | | | | [address] | | | | | | [phone] | | | +--------+ + + + [...] | | + +---------+ + + | [facility] DEPARTMENT OF | | [...] | | + +---------+ + + | [facility] DEPARTMENT OF | | [...]
--- OUTSIDE RECORDS SUMMARY | ~2019-12-16 | XMS | Encounter Summary ---
Demographics + + + | Address | [address] | | | [place] [address] | + + + | Home Phone [...] [place] | | | | | [address] | | + + + + + Care Team Providers + +------+ + | Care Hot Die Press Operator Name | Role | Phone [...] floor | | | | | | [place], [place] | | | | | | [address] | | | | | | [phone] | | | +--------+ + + + [...]
--- OUTSIDE RECORDS SUMMARY | ~2019-12-16 | XMS | Encounter Summary ---
Demographics + + + | Address | [address] | | | [place] [address] | + + + | Home Phone [...] [place] | | | | | [address] | | + + + + + Care Team Providers + +------+ + | Care Employment Coach Name | Role | Phone | [...] L PA | | | | | [address] | | | | | | Loop Physician's | | | | | | [place], 3rd floor | | | | | | [place], [place] | | | | | | [address] | | | | | | [phone] | | | +--------+ + + + [...]
--- OUTSIDE RECORDS SUMMARY | ~2019-12-16 | XMS | Encounter Summary ---
Demographics + + + | Address | [address] | | | [place] [address] | + + + | Home Phone [...] [place] | | | | | [address] | | + + + + + Care Team Providers + +------+ + | Care Patient Admitting Representative Name | Role | Phone | [...] | | | osteomyeliti | Street | [facility] | | | | | s, lower leg | [address] | [address] [place], | | | | | L knee | [place], | [place] | | | | | | [place] [address] | [address] | | | | | | Phone: | | | | | | | [phone] | | | | | | | Fax: | | | | | | | [phone] | | +--------+--------+ + + + + [...] | Osteomyelitis of | | | | [place], [place] | | knee region (HCC); | | | | [address] | | Septic 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| | | [phone] | | knee, left ([facility]) | +--------+---------+ + + + [...] horseback riding. However in the last w [place] and a half she has developed some [...] seconds capillary refill. Palpable dorsalis pedis and pasta maker ior tibial pulses. X-RAYS: Reviewed x-rays with [...] extensiveness of her infection. DARRICK BUITRAGO MD [facility] [address] [facility] Mailcode: [id number] [place] [address] documented in this en counter [...]
--- OUTSIDE RECORDS SUMMARY | ~2019-12-16 | XMS | Encounter Summary ---
Demographics + + + | Address | [address] | | | [place] [address] | + + + | Home Phone [...] [place] | | | | | [address] | | + + + + + Care Team Providers + +------+ + | Care Sales And Service Officer Name | Role | Phone | [...] | | | | | | Floor [place], [place] | | | | | | [address] | | | | | | [phone] | | | +--------+ + + + [...] 2012 (has had 5 knee sx); where: [facility] Have you seen anyone for this yet? Yes, where: [facility] Do you have a referring provider? yes who: Tong Saba MD Directed referral?: yes - Dr. Rodriguez X-Ray Yes, when: 06/04/19; where: [facility] MRI Yes, where: [facility] Via phone 07/05/19 Other Imaging (CT, Ultrasound, etc.) No Is this a W/C injury? no If YES, create referral and complete: .ORTWCNEWPATIENT inside referral Note: We do not accept WC under [place] L[place] as they do not pay at [place] rates. Other out of state claims will only be accepted if they agree to pay at [place] rates docume nted in writing from adjustor. Can you confirm the insurance we will be billing for this visit? Care [place] Note: If OHP, please note which type. E.g. [place], [place], [employer], etc. ) Reminder: Please create referrals for pts with: HMO, OHP, [place], Self-Pay, W/C, TPL an d ED Post- [...] they d like to sign up for Lien Enforcementhart ? Don t forget to pull in CareEveryWhere Additional Comments: documented in this encounter Plan of Treatment Not on filedocumented as of this encounter Visit Diagnoses Not on filedocumented in this encounter
--- OUTSIDE RECORDS SUMMARY | ~2019-12-16 | XMS | Encounter Summary ---
Demographics + + + | Address | [address] | | | [place] [address] | + + + | Home Phone [...] [place] | | | | | [address] | | + + + + + Care Team Providers + +------+ + | Care Health And Safety Specialist Name | Role | Phone | [...] | osteomyeliti | Street | [facility] | | | | | s, lower leg | [address] | Rd [place], | | | | | L knee | [place], | [place] | | | | | | [place] [address] | [address] | | | | | | Phone: | | | | | | | [phone] | | | | | | | Fax: | | | | | | | [phone] | | +--------+--------+ + + + + [...] | Osteomyelitis of | | | | [place], [place] | | knee region (HCC); | | | | [address] | | Septic 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| | | [phone] | | knee, left ([facility]) | +--------+---------+ + + + Social History [...] horseback riding. However in the last w [place] and a half she has developed some [...] seconds capillary refill. Palpable dorsalis pedis and weaver hand loom ior tibial pulses. X-RAYS: Reviewed x-rays with [...] extensiveness of her infection. DARRICK BUITRAGO MD [facility] [address] [facility] Mailcode: [id number] [place] [address] documented in this en counter [...]
--- OUTSIDE RECORDS SUMMARY | ~2019-12-16 | XMS | Encounter Summary ---
Demographics + + + | Address | [address] | | | [place] [address] | + + + | Home Phone [...] + | Grisel Marc | ECON | [address] | | | | | [place] | | | | | [address] | | + + + + + Care Team Providers + +------+ + | Care Manager Outreach Name | Role | Phone | + [...] | | dislocation, | [address] | | | | | right, | [address] | [place], | | | | | initial | [place], | [place] [address] | | | | | encounter | [place] | Phone: | | | | | Procedures | [address] | [phone] | | | | | PHYSICAL | Phone: | Fax: | | | | | THERAPY | [phone] | [phone] | | | | | REFERRAL | Fax: | | | | | | | [phone] | | +--------+--------+ + + + + [...] | | | | [place], | [place] | | | | | | [place] [address] | [address] | | | | | | Phone: | Phone: | | | | | | [phone] | [phone] | | | | | | Fax: | Fax: | | | | | | [phone] | [phone] | +--------+--------+ + + + + Encounter [...] | | | [address] | [address] | dislocation, right, | | | | [address] | [phone] | initial encounter | | | | [place] | | | | | | [address] | | | | | | [phone] | | | +--------+---------+ + + + [...] | + + + | [address] [place] [address] | [facility] | | [place] [address] | DEPARTMENT OF | | [phone] Name: SANDY MARC Phys: | RADIOLOGY | | CINTHYA NIC[place]AS : 1990 Sex: F | | | CSN: [id number] MR# [id number] Exam Date: | | | 12/06/2015 EXAM: [...] Transcribed Date/Time: | | | 12/06/2015 15:56 Clinical Programmer: YORDY | | + + + + + | Procedure Note | + + | Interface, Radiology Results - 12/06/2015 4:01 PM PDT [address] | | [address] [place] [address] | | Name: SANDY MARC Phys: CINTHYA NICOLAS : 1990 Sex: F | | CSN: [id number] MR# [id number] Exam Date: 12/06/2015 EXAM:X-RAY KNEE 3 VIEWS [...] | | |Transcribed Date/Time: 12/06/2015 15:56 | |Clinical Programmer: FLUENCY | | | | | | [...]
--- OUTSIDE RECORDS SUMMARY | ~2019-12-16 | XMS | Encounter Summary ---
Demographics + + + | Address | [address] | | | [place] [address] | + + + | Home Phone [...] [place] | | | | | [address] | | + + + + + Care Team Providers + +------+ + | Care Chinese Herbalist Name | Role | Phone | + [...]
--- OUTSIDE RECORDS SUMMARY | ~2019-12-16 | XMS | Encounter Summary ---
Demographics + + + | Address | [address] | | | [place] [address] | + + + | Home Phone [...] [place] | | | | | [address] | | + + + + + Care Team Providers + +------+ + | Care Ordnance Equipment Worker Name | Role | Phone | + +------+ + | Adilia Bob STRINGED INSTRUMENT REPAIRER | PCP | | + +------+ + Encounter Details +--------+ + + + + | Date | Type | Department | Care Team | Description | +--------+ + + + + | 12/08/ | Floor Polisher | Infectious | Lavinia [place], | Osteomyelitis of | | 2012 | | Diseases at [facility] | MD [address] | knee region (HCC) | | | | [address] | [address] | (Primary Dx) | | | | Loop Physician's | [place] [address] | | | | | Pavilion, [address] [place] [address] | [phone] | | | | | [place], [place] | | | | | | [address] | | | | | | [phone] | | | +--------+ + + + [...]
--- OUTSIDE RECORDS SUMMARY | ~2019-12-16 | XMS | Encounter Summary ---
Demographics + + + | Address | [address] | | | [place] [address] | + + + | Home Phone [...] [place] | | | | | [address] | | + + + + + Care Team Providers + +------+ + | Care Machine Ii Cutter Name | Role | Phone | [...] [facility] | | | | | | [address] | | | | | | Loop Physician's | | | | | | [place], [facility] Floor | | | | | | [place], [place] | | | | | | [address] | | | | | | [phone] | | | +--------+ + + + [...]
--- OUTSIDE RECORDS SUMMARY | ~2019-12-16 | XMS | Encounter Summary ---
Demographics + + + | Address | [address] | | | [place] [address] | + + + | Home Phone [...] [place] | | | | | [address] | | + + + + + Care Team Providers + +------+ + | Care Mill Tender Warm Up Name | Role | Phone | + [...] [facility] | | | | | | [address] | | | | | | Loop Physician's | | | | | | [place], [facility] Floor | | | | | | [place], [place] | | | | | | [address] | | | | | | [phone] | | | +--------+ + + + [...]
--- OUTSIDE RECORDS SUMMARY | ~2019-12-16 | XMS | Encounter Summary ---
Demographics + + + | Address | [address] | | | [place] [address] | + + + | Home Phone [...] [place] | | | | | [address] | | + + + + + Care Team Providers + +------+ + | Care Top Collar Maker Name | Role | Phone | [...] + + + + | 09/04/ | Snow Shoveler | Infectious | Brigid Hardy | | | 2012 | | Diseases at [facility] | [place], [place] | | | | | [address] | | | | | | Loop Physician's | | | | | | [place], 3rd floor | | | | | | [place], [place] | | | | | | [address] | | | | | | [phone] | | | +--------+ + + + [...]
--- OUTSIDE RECORDS SUMMARY | ~2019-12-16 | XMS | Encounter Summary ---
Demographics + + + | Address | [address] | | | [place] [address] | + + + | Home Phone [...] + | Grisel Marc | ECON | [address] | | | | | [place] | | | | | [address] | | + + + + + Care Team Providers + +------+ + | Care Boiler Washer Name | Role | Phone | + +------+ + | Hina Peterson | PCP | | + +------+ + Encounter Details +--------+ + + + + | Date | Type | Department | Care Team | Description | +--------+ + + + + | 06/04/ | Hospital | [facility] | | | | 2018 | Encounter | Sports Medicine & | | | | | | Orthopaedic Surgery | | | | | | [address] | | | | | | [place] | | | | | | [address] | | | | | | [phone] | | | +--------+ + + + [...] | + + + | [address] | [facility] | | [place] [address] | DEPARTMENT | | [phone] Name: SANDY MARC Phys: | RADIOLOGY | | JACI PAREKH : 1990 Sex: F CSN: | | | [id number] MR# [id number] Exam Date: 06/04/2019 | | | EXAM: X-RAY KNEE 3 VIEWS LEFT 45614; X-RAY KNEE 2 VIEWS RIGHT | | | [address] CLINICAL HISTORY: Left knee pain. COMPARISON: None [...] Transcribed Date/Time: 06/04/2019 | | | 23:16 Glazing Department Supervisor: YORDY | | + + + + + | Procedure Note | + + | Interface, Radiology Results - 06/04/2019 11:21 PM PDT [address] | | [address] [place] [address] | | Name: SANDY MARC Phys: JACI PAREKH : 1990 Sex: F | | CSN: [id number] MR# [id number] Exam Date: 06/04/2019 EXAM:X-RAY KNEE 3 VIEWS | | LEFT [address]; X-RAY KNEE 2 VIEWS RIGHT [address] CLINICAL HISTORY:Left knee pain. | | COMPARISON:None [...] | | |Transcribed Date/Time: 06/04/2019 23:16 | |Glazing Department Supervisor: FLUENCY | | | | | [...] | + + + | [address] [place] [address] | [facility] | | [place] [address] | DEPARTMENT | | [phone] Name: SANDY MARC Phys: | RADIOLOGY | | JACI PAREKH : 1990 Sex: F CSN: | | | [id number] MR# [id number] Exam Date: 06/04/2019 | | | EXAM: X-RAY KNEE 3 VIEWS LEFT [id number]; X-RAY KNEE 2 VIEWS RIGHT | | | [id number] CLINICAL HISTORY: Left knee pain. COMPARISON: None [...] Transcribed Date/Time: 06/04/2019 | | | 23:16 Glazing Department Supervisor: YORDY | | + + + + + | Procedure Note | + + | Interface, Radiology Results - 06/04/2019 11:21 PM PDT [address] | | [address] [place] [id number] | | Name: SANDY MARC Phys: JACI PAREKH : 1990 Sex: F | | CSN: [id number] MR# [id number] Exam Date: 06/04/2019 EXAM:X-RAY KNEE 3 VIEWS | | LEFT 66788; X-RAY KNEE 2 VIEWS RIGHT 48603 CLINICAL HISTORY:Left knee pain. | | COMPARISON:None [...] | | |Transcribed Date/Time: 06/04/2019 23:16 | |Glazing Department Supervisor: FLUENCY | | | | | [...]
--- OUTSIDE RECORDS SUMMARY | ~2019-12-16 | XMS | Encounter Summary ---
Demographics + + + | Address | [address] | | | [place] [address] | + + + | Home Phone [...] [place] | | | | | [address] | | + + + + + Care Team Providers + +------+ + | Care Prospecting Observer Name | Role | Phone | + [...] floor | | | | | | [place], [place] | | | | | | [address] | | | | | | [phone] | | | +--------+ + + + [...]
--- OUTSIDE RECORDS SUMMARY | ~2019-12-16 | XMS | Encounter Summary ---
Demographics + + + | Address | [address] | | | [place] [address] | + + + | Home Phone [...] [place] | | | | | [address] | | + + + + + Care Team Providers + +------+ + | Care Tractor Expert Name | Role | Phone | [...] Pavilion | | | | | | [place], [place] | | | | | | [address] | | | | | | [phone] | | | +--------+ + + + [...]
--- OUTSIDE RECORDS SUMMARY | ~2019-12-16 | XMS | Encounter Summary ---
Demographics + + + | Address | [address] | | | [place] [address] | + + + | Home Phone [...] [place] | | | | | [address] | | + + + + + Care Team Providers + +------+ + | Care Event Producer Name | Role | Phone | + [...]
--- OUTSIDE RECORDS SUMMARY | ~2019-12-16 | XMS | Encounter Summary ---
Demographics + + + | Address | [address] | | | [place] [address] | + + + | Home Phone [...] [place] | | | | | [address] | | + + + + + Care Team Providers + +------+ + | Care Recep Name | Role | Phone | + [...] PPV | | | | | | [address] | | | | | | Loop Physician's | | | | | | [place], [facility] Floor | | | | | | [place], [place] | | | | | | [address] | | | | | | [phone] | | | +--------+ + + + [...] | | + +---------+ + + | [facility] DEPARTMENT OF | | | | | [...]
--- OUTSIDE RECORDS SUMMARY | ~2019-12-16 | XMS | Encounter Summary ---
Demographics + + + | Address | [address] | | | [place] [address] | + + + | Home Phone [...] + | Grisel Marc | ECON | [address] | | | | | [place] | | | | | [address] | | + + + + + Care Team Providers + +------+ + | Care Muskrat Trapper Name | Role | Phone | + [...] | | | Orthopaedic Surgery | [place], [place] | | | | | [address] | [address] | | | | | [place], [place] | [phone] | | | | | [address] | | | | | | [phone] | | | +--------+ + + + [...] | + + + + + | [facility] | And | [place] | [phone] | | MEDICAL CENTER | [facility] | [address] | | + + + + + [...] + + | [facility] | [address] [place] | [place] | [phone] | | MEDICAL CENTER | [facility] | [address] | | + + + + + documented in this encounter Visit Diagnoses + + | Diagnosis | + + | Osteomyelitis of knee region (HCC) - Primary Unspecified osteomyelitis, lower leg | + + documented in this encounter"
--- OUTSIDE RECORDS SUMMARY | ~2019-12-16 | XMS | Encounter Summary ---
Demographics + + + | Address | [address] | | | [place] [address] | + + + | Home Phone [...] Team Providers + +------+ + | Care Ripsaw Operator Name | Role | Phone | [...] Pavilion | | | | | | [place], [place] | | | | | | [address] | | | | | | [phone] | | | +--------+ + + + [...]
--- OUTSIDE RECORDS SUMMARY | ~2019-12-16 | XMS | Encounter Summary ---
Demographics + + + | Address | [address] | | | [place] [address] | + + + | Home Phone [...] [place] | | | | | [address] | | + + + + + Care Team Providers + +------+ + | Care Parole Board Member Name | Role | Phone | + [...] | | | | Loop Physician's | [place] [address] | | | | | [place], 3rd floor | [phone] | | | | | [place], [place] | | | | | | [address] | | | | | | [phone] | | | +--------+ + + + [...]
--- OUTSIDE RECORDS SUMMARY | ~2019-12-16 | XMS | Encounter Summary ---
Demographics + + + | Address | [address] | | | [place] [address] | + + + | Home Phone [...] + | Grisel Marc | ECON | [address] | | | | | [place] | | | | | [address] | | + + + + + Care Team Providers + +------+ + | Care Zig Zag Spring Machine Operator Name | Role | Phone [...] | | | | | right | [address] | NW | | | | | Procedures | [place], | [place] | | | | | MRI KNEE RT | [place] | [address] | | | | | [place] CONT [place] | [address] | Phone: | | | | | MRI LOWER | Phone: | [phone] | | | | | EXTREM JT, | [phone] | Fax: | | | | | W/O CONTRAST | Fax: | [phone] | | | | | | [phone] | | +--------+--------+ + + + + [...] knee | [address] | [address] | | | | | | | [address] THE | | | | | | [place], | [place] | | | | | | [place] [address] | [address] | | | | | | Phone: | Phone: | | | | | | [phone] | [phone] | | | | | | Fax: | Fax: | | | | | | [phone] | [phone] | +--------+--------+ + + + + Encounter [...] | | [address] | [address] | | | | | [address] | [phone] | | | | | [place], [place] | | | | | | [address] | | | | | | [phone] | | | +--------+---------+ + + + [...]
--- OUTSIDE RECORDS SUMMARY | ~2019-12-16 | XMS | Encounter Summary ---
Demographics + + + | Address | [address] | | | [place] [address] | + + + | Home Phone [...] [place] | | | | | [address] | | + + + + + Care Team Providers + +------+ + | Care Youth Services Librarian Name | Role | Phone | + [...] Pavilion | | | | | | [place], [place] | | | | | | [address] | | | | | | [phone] | | | +--------+ + + + [...]
--- OUTSIDE RECORDS SUMMARY | ~2019-12-16 | XMS | Encounter Summary ---
Demographics + + + | Address | [address] | | | [place] [address] | + + + | Home Phone [...] + | Grisel Marc | ECON | [address] | | | | | [place] | | | | | [address] | | + + + + + Care Team Providers + +------+ + | Care Dry Curer Name | Role | Phone | [...] | | [address] | [address] | | | | | [address] [address] | [phone] | | | | | [place], [place] | | | | | | [address] | | | | | | [phone] | | | +--------+---------+ + + + [...] She had been followed by ID at [facility] also. She has had chronic symptoms [...] She should keep it strong, use her rivet thrower brace as tolerated. Of course she knows [...]
--- OUTSIDE RECORDS SUMMARY | ~2019-12-16 | XMS | Encounter Summary ---
Demographics + + + | Address | [address] | | | [place] [address] | + + + | Home Phone [...] [place] | | | | | [address] | | + + + + + Care Team Providers + +------+ + | Care Manager Copy Name | Role | Phone | + [...] region (HCC) | | | | [address] | | | | | | [place] | | | | | | [address] | | | | | | [phone] | | | +--------+------+ + + + [...] | + + + + + | [facility] | And | [place], [place] | [phone] | | MEDICAL CENTER | Streets | [address] | | + + + + + C-REACTIVE PROTEIN (06/25/2019 8:15 AM PST) + +-------+ + + + | Component | Value | Ref Range | Performed | Pathologist | | | | | At | Signature | + +-------+ + + + | C-REACTIVE | 0.6 | 0.0 - 0.9 mg/dL | [facility] | | | PROTEIN | | | [...] + + | [facility] | [address] | [place], [place] | [phone] | | [facility] | Ligonierm[place]cio | [address] | | + + + + + documented in this encounter Visit Diagnoses + + | Diagnosis | + + | Osteomyelitis of knee region (HCC) Unspecified osteomyelitis, lower leg | + + documented in this encounter"
--- OUTSIDE RECORDS SUMMARY | ~2019-12-16 | XMS | Encounter Summary ---
Demographics + + + | Address | [address] | | | [place] [address] | + + + | Home Phone [...] + | Grisel Marc | ECON | [address] | | | | | [place] | | | | | [address] | | + + + + + Care Team Providers + +------+ + | Care Wound Care Center Consultant Name | Role | Phone | [...] | | dislocation, | [address] | [address] | | | | | right, | [address] | [place], | | | | | initial | [place], | [place] [address] | | | | | encounter | [place] | Phone: | | | | | Procedures | [address] | [phone] | | | | | PHYSICAL | Phone: | Fax: | | | | | THERAPY | [phone] | [phone] | | | | | REFERRAL | Fax: | | | | | | | [phone] | | +--------+--------+ + + + + [...] knee | [address] | [address] | | | | | | [address] THE | | | | | | [place], | [place] | | | | | | [place] [address] | [address] | | | | | | Phone: | Phone: | | | | | | [phone] | [phone] | | | | | | Fax: | Fax: | | | | | | [phone] | [phone] | +--------+--------+ + + + + Encounter [...] | | | [address] | [address] | dislocation, right, | | | | [address] [address] | [phone] | initial encounter | | | | [place] | | | | | | [address] | | | | | | [phone] | | | +--------+---------+ + + + [...] | + + + | [address] [place] [address] | [facility] | | [place] [address] | DEPARTMENT OF | | [phone] Name: SANDY MARC Phys: | RADIOLOGY | | CINTHYA NICOLAS : 1990 Sex: F | | | CSN: [id number] MR# [id number] Exam Date: | | | 12/06/2015 EXAM: [...] Transcribed Date/Time: | | | 12/06/2015 15:56 Pan Greaser: YORDY | | + + + + + | Procedure Note | + + | Interface, Radiology Results - 12/06/2015 4:01 PM PDT [address] | | [address] [place] [address] | | Name: SANDY MARC Phys: CINTHYA NICOLAS : 1990 Sex: F | | CSN: [id number] MR# [id number] Exam Date: 12/06/2015 EXAM:X-RAY KNEE 3 VIEWS [...] | | |Transcribed Date/Time: 12/06/2015 15:56 | |Pan Greaser: FLUENCY | | | | | | [...]
--- OUTSIDE RECORDS SUMMARY | ~2019-12-16 | XMS | Encounter Summary ---
Demographics + + + | Address | [address] | | | [place] [address] | + + + | Home Phone | | + + + | Preferred Language | Unknown | + + + | Marital Status | | + + + | Jainism Affiliation | Unknown | + + + | Race | Unknown | + + + | Ethnic Group | Unknown | + + + Author + + + | Author | [facility] | | | and [place] | + + + | Organization | [facility] | | [...] Team Providers + +------+ + | Care Hydrodynamics Teacher Name | Role | Phone | [...] [place] | | | | | | [address] | | | | | | [phone] | | | +--------+ + + + [...] M?MRN: | | | | | | [id number] | | | [id number] | | | riteri | | | [...] | | | St. | | | [place] | | | y | | | [...] | | | St. | | | [place] | | | y H. | | [...] | | | St. | | | [place] | | | y H. | | [...] | | ER J, | | | HEATING MECHANIC | | | Nurse | | | [...]
--- OUTSIDE RECORDS SUMMARY | ~2019-12-16 | XMS | Encounter Summary ---
Demographics + + + | Address | [address] | | | [place] [address] | + + + | Home Phone [...] [place] | | | | | [address] | | + + + + + Care Team Providers + +------+ + | Care Citizen Participation Specialist Name | Role | Phone | [...] | | | | Hospital Admitting | [place], [place] | | | | | Desk Located on the | [address] | | | | | 9th floor | [phone] | | | | | [place], [place] | | | | | | [address] | Viktoriya Jennings MD | | | | | | [address] | | | | | | [facility] | | | | | | [place] [address] | | | | | | [phone] | | | | | | | | +--------+ + + + + Anesthesia Record + + + + + | Procedure Name | Responsible | Anesthesia Start | Anesthesia Stop Time | | | Anesthesiologist | Time | | + + + + + | IRRIGATION AND | Shakila Burgos MD | 09/02/12 1407 | 09/02/12 5555 | | DEBRIDEMENT OF LEFT | | [...]
--- OUTSIDE RECORDS SUMMARY | ~2019-12-16 | XMS | Encounter Summary ---
Demographics + + + | Address | [address] | | | [place] [address] | + + + | Home Phone [...] [place] | | | | | [address] | | + + + + + Care Team Providers + +------+ + | Care Senior Support Engineer Name | Role | Phone | [...] | | | | | Septic | [place], [place] | [place], | | | | | 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[address] | [place] [address] | | | | | knee, left | | Phone: | | | | | ([facility]) | | [phone] | | | | | Procedures | | Fax: | | | | | CONSULT TO | | [phone] | | | | | INFECTIOUS | [...] | | | Osteomyeliti | Family | [address] [facility] | | | | | s of knee | Health | [facility] | | | | | region ([facility]) | Associates | Rd [place], | | | | | AVN | [address] | [place] | | | | | (avascular | St, [address] | [address] | | | | | necrosis of | [place], | | | | | | bone) ([facility]) | [place] [address] | | | | | | Pathologic | Phone: | | | | | | fracture of | [phone] | | | | | | tibia or | Fax: | | | | | | fibula | [phone] | | | | | | Septic [...] | | | | | | | [employer] | | | | | | | [place] PARTIAL | | | | | | | REMOVAL OF | | | | | | | TIBIA [place] | | | | | | | INSERTION | | | | | | | DRUG IMPLANT | | | | | | | DEVICE [place] | | | | | | | KNEE | | | | | | | SCOPE,SHAVE | | | | | | | ARTICULAR | | | | | | | CART [place] | | | | | | | [...] of knee | Mirza Perez | Rd [place] | | | | | region ([facility]) | Rd | Research | | | | | Procedures | [place], [place] | [place] | | | | | MRI KNEE | [address] | [place], [place] | | | | | LT WWO CONT | Phone: | [address] | | | | | | [phone] | Phone: | | | | | | Fax: | [phone] | | | | | | [phone] | Fax: | | | | | | | [phone] | +--------+--------+ + + + + Reason [...] s, lower leg | REFERRING | Rd [place], | | | | | L medial | PROVIDER PER | [place] | | | | | tibial | PT | [address] | | | | | plateau fx [...] [facility]); | | | | [place], [place] | | Pathologic fracture | | | | [address] | | of tibia or fibula; | | | | [phone] | | Septic 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| [...] might be different fr om the original. [facility]- New Patient Referring Physician: Dr. [...] plateau fracture by Dr. Jerald Don in [place] on 12/10/11. Calcium phosphate cement was used [...] MRI w/ contrast done on 07/09/12 at [facility], but are unable to view the [...] subchondral | | | | | | [id number] hyperintensity | | | | | | [...] | | + +---------+ + + | [facility] DEPARTMENT OF | | | | | [...] + | [facility] - | [address] | [place] [address] | | | [place] | | | | + + + [...] | + + + + + | [facility] | [address] [facility] | [place] [address] | | | SERVICES, CORE | PARK [...] | | | LABORATORY | | | [place] | | | SERVICES, | | | [...] | + + + + + | [facility] | [address] | [place] [address] | | | SERVICES, CORE | JOY [...]
--- OUTSIDE RECORDS SUMMARY | ~2019-12-16 | XMS | Encounter Summary ---
Demographics + + + | Address | [address] | | | [place] [address] | + + + | Home Phone [...] [place] | | | | | [address] | | + + + + + Care Team Providers + +------+ + | Care Driving Instructor Name | Role | Phone | + +------+ + | Adilia Bob ADJUNCT PHYSICAL EDUCATION INSTRUCTOR | PCP | | + +------+ + [...] | | | | | Septic | [place], [place] | [place], | | | | | 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[address] | [place] [address] | | | | | knee, left | | Phone: | | | | | ([facility]) | | [phone] | | | | | Procedures | | Fax: | | | | | CONSULT TO | | [phone] | | | | | INFECTIOUS | [...] | | | | Loop Physician's | [place] [address] | | | | | Pavilion, 3rd floor | [phone] | | | | | [facility] [place] | | | | | | [address] | | | | | | [phone] | | | +--------+---------+ + + + [...] Lavinia Peck MD - 08/25/2012 10:10 PM [facility] Clinic Date: 08/25/2012 Clinic: Infectious Disease [...] Lavinia Peck M.D., Ph.D. MALLORY / HYACINTH [id number] / [id number] / [id number] / Lavinia Lam MD - 08/25/2012 9:30 AM PST This office note has been dictated. CSN #: [id number] I spent 45 minutes with the patient [...] | + + + + + | [facility] | [address] | [place] [address] | | | SERVICES, SPECIAL | JOY [...] Directory | | | | | | (KaChing!). | | | | + + + [...] Directory | | | | | | (KaChing!). | | | | + + + [...] | | | | | in the [facility] | | | | | | LaboratoryTest Directory | | | | | | (KaChing!). | | | | + + + [...] # | | | | | | [phone]). Access | | | | | | complete set of age- | | | | | | and/or | | | | | | gender-specificreference | | | | | | intervals for this test | | | | | | in the [facility] | | | | | | LaboratoryTest Directory | | | | | | (KaChing!).Performed | | | | | | by [facility] | | | | | | [facility],[address] [place] [address] | | | | | | [place] [address] | | | | | | [phone]. | | | | | | intermountain [...] [facility] | [address] | [place], [place] | | | [facility] | | [address] | | + + + + + [...] - | | | | | | [place] | | + +-------+ + + + + + | Specimen | + + | Blood - Blood | + + + + + + + | Performing | Address | City/State/Zipcode | Phone Number | | Organization | | | | + + + + + | [facility] - | [address] | [place] [address] | | | [place] | | | | + + + + + documented in this encounter Visit Diagnoses + + | Diagnosis | + + | Osteomyelitis of knee region (HCC) - Primary Unspecified osteomyelitis, lower leg | + + documented in this encounter"
--- OUTSIDE RECORDS SUMMARY | ~2019-12-16 | XMS | Encounter Summary ---
Demographics + + + | Address | [address] | | | [place] [address] | + + + | Home Phone [...] [place] | | | | | [address] | | + + + + + Care Team Providers + +------+ + | Care It Quality Analyst Name | Role | Phone | + +------+ + | Adilia Bob HUMAN RESOURCES OPERATIONS SPECIALIST | PCP | | + +------+ [...] [place] | | | | | region ([facility]) | Ravi | Research | | | | | Procedures | [place], [place] | Center | | | | | MRI KNEE | [address] | [place], [place] | | | | | LT WWO CONT | Phone: | [address] | | | | | | [phone] | Phone: | | | | | | Fax: | [phone] | | | | | | [phone] | Fax: | | | | | | | [phone] | +--------+--------+ + + + + Encounter Details +--------+ + + + + | Date | Type | Department | Care Team | Description | +--------+ + + + + | 08/24/ | Hospital | Diagnostic Imaging | | | | 2012 | Encounter | Services at [facility] | | | | | | [address] | | | | | | [place] | | | | | | [facility] | | | | | | [facility] [place] | | | | | | [address] | | | | | | [phone] | | | +--------+ + + + [...] subchondral | | | | | | [id number] hyperintensity | | | | | | [...] | | + +---------+ + + | [facility] DEPARTMENT OF | | | | | RADIOLOGY | | | | + +---------+ + + documented in this encounter Visit Diagnoses + + | Diagnosis | + + | Osteomyelitis of knee region (HCC) Unspecified osteomyelitis, lower leg | + + documented in this encounter"
--- OUTSIDE RECORDS SUMMARY | ~2019-12-16 | XMS | Encounter Summary ---
Demographics + + + | Address | [address] | | | [place] [address] | + + + | Home Phone [...] [place] | | | | | [address] | | + + + + + Care Team Providers + +------+ + | Care Production Proofreader Name | Role | Phone | + [...]
--- OUTSIDE RECORDS SUMMARY | ~2019-12-16 | XMS | Encounter Summary ---
Demographics + + + | Address | [address] | | | [place] [address] | + + + | Home Phone [...] + | Grisel Marc | ECON | [address] | | | | | [place] | | | | | [address] | | + + + + + Care Team Providers + +------+ + | Care Yarn Preparation Supervisor Name | Role | Phone [...] | | | | [address]ene [place] | [address] | | | | | [place] | [phone] | | | | | [place] | | | | | | [address] | | | | | | [phone] | | | +--------+ + + + [...]
--- OUTSIDE RECORDS SUMMARY | ~2019-12-16 | XMS | Encounter Summary ---
Demographics + + + | Address | [address] | | | [place] [address] | + + + | Home Phone [...] [place] | | | | | [address] | | + + + + + Care Team Providers + +------+ + | Care Granulating Machine Operator Name | Role | Phone [...] + + + + | 09/04/ | Carpenter Rough | Infectious | Brigid Hardy | | | 2012 | | Diseases at [facility] | [place] | | | | | [address] | | | | | | Loop Physician's | | | | | | [address], 3rd floor | | | | | | [place], [place] | | | | | | [address] | | | | | | [phone] | | | +--------+ + + + [...]
--- OUTSIDE RECORDS SUMMARY | ~2019-12-16 | XMS | Encounter Summary ---
Demographics + + + | Address | [address] | | | [place] [address] | + + + | Home Phone [...] [place] | | | | | [address] | | + + + + + Care Team Providers + +------+ + | Care Steam Table Worker Name | Role | Phone | + +------+ + | Adilia oBb SIGN ARTIST | PCP | | + +------+ + Encounter Details +--------+ + + + + | Date | Type | Department | Care Team | Description | +--------+ + + + + | 10/13/ | Ski Technician | Orthopaedics at | Alton Hernandez MD | Osteomyelitis of | | 2012 | | [facility] [address] | | knee region (HCC) | | | | [address] | | (Primary Dx) | | | | Mailcode: [id number] | | | | | | Physician's Pavilion | | | | | | [place], [place] | | | | | | [address] | | | | | | [phone] | | | +--------+ + + + [...]
--- OUTSIDE RECORDS SUMMARY | ~2019-12-16 | XMS | Encounter Summary ---
Demographics + + + | Address | [address] | | | [place] [address] | + + + | Home Phone [...] [place] | | | | | [address] | | + + + + + Care Team Providers + +------+ + | Care Facing Baster Jumpbasting Name | Role | Phone | + [...] | Hospital | [facility] [address] | Alton Hernandez MD | | | 2012 - | Encounter | [address] | | | | | | [place] | | | | 09/05/ | | [place] [address] | | | | 2012 | | [phone] | | | +--------+ + + + [...] - 09/10/2012 8:12 AM PST [facility]THOPAEDICS & [facility]ATION INPATIENT HOSPITAL DISCHARGE SUMMARY & INTERDISCIPLINARY INSTRUCTIONS Patient: Sandy Marc CSN: [id number] Admission Date: 09/02/2012 Discharge Date: 09/05/2012 Attending [...] our pleasure. David Peter MD Pager # [phone] documented in this enc ounter Discharge Instructions Instructions Sally Gupta RN - 09/04/2012Formatting of this note might be different f rom the original. ADDITIONAL INFORMATION: [facility] will provide IV antibiotics and education. They can be r eached at: [phone]. You will need to go to [facility] ([phone] - Unit C) for PICC line dressin [...] Arthritis: After Your Visit", log into your [employer] account at [email or web address]. You can enter C265 in the [employer]" search box. Not on [employer]? Review the MyChart section of your After Visit Summary for directions on ho w to sign up. [phone] [employer]. Care instructions adapted under license by [facility] [place]. This care instruction is for use with your licensed healthcar e professional. If you have questions about a medical condition or this instruction, always ask your healthcare professional. [employer] disclaims any warranty or liabili ty for your use of this information. Content Version: 9.5.65247; Last Revised: July 18, 2011 Patient Education [...] provider under separate cover. Anticipated OPAT Setting: [facility] [phone] f: [phone] ID/OPAT Clinic follow-up: OPAT clinic visit in 1-2 weeks after discharge in conjunction wit h [facility]. We will call to schedule this appointment after patient is disch arged. Interdisciplinary Communication: Please notify OPAT clinic 24-48 hours prior to discharge b y calling [phone] (We need anticipated discharge date & where patient is going; i.e. name, ph one, and fax for home infusion vendor, alf facility, or daily outpatient infusio center providing outpatient antibiotic therapy services.) [facility] Department of Infectious Disease Outpatient IV Antibiotic Therapy Clinic (OPAT) Pager ID: [phone] [facility]. Mail Code L457 [place] [address] OPAT teaching note: Education and training for patient self management with a PICC line and extended use IV antibiotics I received an OPAT Clinic Consult from the Inpatient Infectious Diseases Service. I have re viewed the records and introduced myself to Sandy Marc today. I explained that I am from the OPAT (Outpatient Parenteral Antibiotic Treatment) team, an out-patient branch of [facility] Infectious Diseases team that has been [...] symptoms immediately, and if unable to contact [facility] or the infus ion service provider, then to present to the nearest ED. I verified that the patient has a primary care provider, and that they will follow-up with them following this hospitalization in regards to other medical issues such as chronic pain, diabetes, or high blood pressure for which we do not provide any care. I provided the patient with the [facility] welcome letter that reiterates the above teaching. I spent 45 minutes in education and training in patient self management for IV antibiotic a nd PICC line use with greater than 50% spent on counseling and/or coordination of care. [facility] DEPARTMENT: IDC INFECT DIS CONSULT - [id number] Place of Service: Inpatient Date of Service: 09/04/2012 CSN: [id number] Suggested Modifier: OPATC David Angel MD - [...] made with LENCHO Peter MD Pager # [phone] David Angel MD - 09/03/2012 7:53 AM [...] 6 weeks David Peter MD Pager # [phone] Malathi Mccauley MD - 09/03/2012 1:27 AM [...] See brief op note MALATHI BRYANT MD [facility] [place] Department of Orthopaedics & Rehabilitation [address] [place] [address] Mail Code: OP31 [facility] [address] documented in this e ncounter Plan of [...] + + + | IP CONSULT TO [facility] | Routin | 09/03/2012 | | Results [...] | + + + + + | [facility] | [address] | [place] [address] | | | SERVICES, CORE | JOY [...] [facility] | [address] | [place] [address] | | | SERVICES, CORE | PARK [...] | + + + + + | [facility] | [address] | [place] [address] | | | SERVICES, [facility] | JOY ZAMORA | | | + + + + + OPERATION RECORD (09/03/2012 2:02 PM PST) + + | Transcriptions | + + | David Peter MD - 09/03/2012 12:20 PM PST Date: 09/02/2012ttending | | Surgeon: Alton Hernandez M.D.Window Glazier Helper(s): David | | TAQUERIA Peterreoperative Diagnosis(es):1. [...] by | | Dr. Jerald Don in [place] on December 10, 2011. At that [...] the reamers. We then used our canal developmental services worker | | to thoroughly wash out [...] | | Thiago, M.Engr.General Orthopaedics, Trauma / [id number] / [id number] / [id number] /D: | | 09/02/2012T: 09/03/2012 | | | | | + + X-RAY PORTABLE CHEST 1 VIEW (09/03/2012 9:51 AM PST) + + + + + + | Component | Value | Ref Range | Performed | Pathologist | | | | | At | Signature | + + + + + + | X-RAY | STUDY: OR CHEST 1 VIEW | | | | [...] (Unit/Room #): | | | 9k Diagnosis: [id number] Osteomyelitis of knee region 962084 AVN | | | (avascular necrosis of bone) 789122 Pathologic fracture of tibia or | | | fibula 813472 Septic arthritis of knee, left Indications: (Select [...] Lot # (or | | | Sticker): [id number] INSERTION SITE: - Basilic Left Local | [...] 09/03/2012Start Time: 0900Patient Location (Unit/Room #): 9kDiagnosis: [id number] | | Osteomyelitis of knee [id number] AVN (avascular necrosis of bone)542310 Pathologic | | fracture of tibia or qbnkia097919 Septic arthritis of knee, leftIndications: (Select all [...] CATHETERProduct | | Name: Lobo: Single4 Fr60cm Xouf8gd TrimmedLot # (or Sticker): | | [id number] SITE: - BasilicLeftLocal anesthetic used: lidocaineSedation used: [...] |8cm Trimmed | |Lot # (or Sticker): [id number] | | | |INSERTION SITE: - Basilic [...] | + + + + + | [facility] | [address] | [place] [address] | | | SERVICES, CORE | JOY [...] | + + + + + | [facility] | [address] | [place] [address] | | | MERCEDES, ELLIE | JOY [...] | | | Final SMEAR:No | | [place] | | | | fungal elements seen [...] + | [facility] - | [address] | [place] [address] | | | [facility] | | | | + + + [...] + | [facility] - | [address] | [place] [address] | | | [place] | | | [...] + | [facility] - | [address] | [place] [address] | | | [place] | | | | + + + [...] + | [facility] - | [address] | [place] [address] | | | [place] | | | | + + + [...] | | RESULT | Tissue | | [facility] - | | | | Final SMEAR:No | | [place] | | | | fungal elements seen [...] + | [facility] - | [address] | [place] [address] | | | [place] | | | [...] | + + + + + | [facility] - | [address] | [place] [address] | | | [place] | | | [...] + | [facility] - | [address] | [place] [address] | | | [place] | | | | + + + [...] + + + + + | [facility] - | [address] | [place] [address] | | | [place] | | | [...] + + + + + | [facility] - | [address] | [place] [address] | | | [place] | | | | + + + [...] | | | Final SMEAR:No | | [place] | | | | fungal elements seen [...] + | [facility] - | [address] | [place] [address] | | | [facility] | | | | + + + [...] | | Final SMEAR:AFB not | | [place] | | | | detected source: left [...] + | [facility] - | [address] | [place] [address] | | | [place] | | | [...] + | [facility] - | [address] | [place] [address] | | | [place] | | | [...] + | [facility] - | [address] | [place] [address] | | | [place] | | | | + + + [...] | | Final SMEAR:AFB not | | [place] | | | | detected source: left [...] | + + + + + | [facility] - | [address] | [place] [address] | | | [facility] | | | | [...] + | [facility] - | [address] | [place] [address] | | | [place] | | | | + + + [...] | | | Final SMEAR:No | | [facility] | | | | fungal elements seen [...] + | [facility] - | [address] | [place] [address] | | | [place] | | | [...] | | Final SMEAR:AFB not | | [place] | | | | detected source: left [...] + | [facility] - | [address] | [place] [address] | | | [place] | | | | + + + [...] + | [facility] - | [address] | [place] [address] | | | [place] | | | | + + + [...] | + + + + + | [facility] - | [address] | [place] [address] | | | [place] | | | [...] + | [facility] - | [address] | [place] [address] | | | [place] | | | | + + + [...] | | Final GRAM STAIN:No | | [place] | | | | squamous epithelial | [...] + | [facility] - | [address] | [place] [address] | | | [place] | | | | + + + [...] | | | Final SMEAR:No | | [place] | | | | fungal elements seen [...] + | [facility] - | [address] | [place] [address] | | | [place] | | | | + + + [...] + | [facility] - | [address] | [place] [address] | | | [place] | | | [...] | | Final GRAM STAIN:No | | [place] | | | | squamous epithelial | [...] + | [facility] - | [address] | [place] [address] | | | [place] | | | | + + + [...] | | | Final SMEAR:No | | [place] | | | | fungal elements seen [...] + | [facility] - | [address] | [place] [address] | | | [place] | | | [...] + | [facility] - | [address] | [place] [address] | | | [facility] | | | | + + + [...] | + + + + + | [facility] - | [address] | [place] [address] | | | [place] | | | [...] + | [facility] - | [address] | [place] [address] | | | [place] | | | [...] | | Final SMEAR:AFB not | | [place] | | | | detected source: left [...] + | [facility] - | [address] | [place] [address] | | | [place] | | | | + + + [...] | + + + + + | [facility] - | [address] | [place] [address] | | | [place] | | | [...] | | | Final CULTURE | | [place] | | | | RESULT:No growth | [...] + | [facility] - | [address] | [place] [address] | | | [place] | | | | + + + [...] + + + | [facility] | [address] | [place] [address] | | | PATHOLOGY | [address] | | | + + + + + documented in this encounter Visit Diagnoses + + | Diagnosis | + + | Osteomyelitis of knee region (HCC) - Primary Unspecified osteomyelitis, lower leg | + + | AVN (avascular necrosis of bone) ([facility]) Aseptic necrosis of bone, site unspecified | + + | Pathologic fracture of tibia or fibula Pathologic fracture of tibia and fibula | + + | Septic arthritis of knee, left ([facility]) Pyogenic arthritis, lower leg | + + [...]
--- OUTSIDE RECORDS SUMMARY | ~2019-12-16 | XMS | Encounter Summary ---
Demographics + + + | Address | [address] | | | [place] [address] | + + + | Home Phone [...] [place] | | | | | [address] | | + + + + + Care Team Providers + +------+ + | Care Nib Assembler Name | Role | Phone | + +------+ + | Adilia Bob DOG LICENSER | PCP | | + +------+ + [...] | | | | | long-term | [place], [place] | Physician's | | | | | (current) | [address] | Pavilion | | | | | use of | | [place], [place] | | | | | antibiotics | | [address] | | | | | Procedures | | Phone: | | | | | VASC LAB | | [phone] | | | | | UPPER EXT | | Fax: | | | | | PSEUDOANEUR | | [phone] | | | | | COMP LEFT [...] | | | | necrosis of | [facility] | [place] | | | | | bone) ([facility]) | Rd | [address] | | | | | Septic | [place], [place] | [place], | | | | | 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[address] | [place] [address] | | | | | knee, left | | Phone: | | | | | ([facility]) | | [phone] | | | | | Procedures | | Fax: | | | | | CONSULT TO | | [phone] | | | | | INFECTIOUS | [...] use of antibiotics | | | | [place], [place] | | | | | | [address] | | | | | | [phone] | | | +--------+---------+ + + + [...] DISEASES CLINIC FOLLOW UP Primary Care Physician: [facility] [address], [address] [place] [address] Ms. Marc presents to Infectious Diseases Clinic [...] doing rodeo on her horse going around [employer], and she was leaning out away from [employer]. Her legs spontaneously broke with pathological fracture. [...] placement of antibiotic beads 09/03/2012: HIRAM Silva [facility] Operative Findings: We began by [...] medullary canal. We then used our canal policy change clerk to thoroughly washout the intramedullary c anal [...] She was seen in the ER in [place] and had a CT Thor ax that [...] follow-up planning. Brigid Hardy PA-C [facility] Department of Infectious Diseases Outpatient IV Antibiotic Therapy Clinic (OPAT) [phone] Pager ID: [phone] [facility] Mail Code N957 [place] [address] documented in this encounter Plan of Treatment [...] + + documented in this encounter Results [facility] LAB VENOUS DUPLEX UPPER EXTREMITY LT (09/29/2012 [...] [place] | | | | | | Pavilion | | | | | | | [...]
--- OUTSIDE RECORDS SUMMARY | ~2019-12-16 | XMS | Encounter Summary ---
Demographics + + + | Address | [address] | | | [place] [address] | + + + | Home Phone [...] [place] | | | | | [address] | | + + + + + Care Team Providers + +------+ + | Care Access Liaison Name | Role | Phone | + [...]
--- OUTSIDE RECORDS SUMMARY | ~2019-12-16 | XMS | Encounter Summary ---
Demographics + + + | Address | [address] | | | [place] [address] | + + + | Home Phone [...] [place] | | | | | [address] | | + + + + + Care Team Providers + +------+ + | Care Cytology Technologist Name | Role | Phone | [...] [facility] | | | | | | [address] | | | | | | Loop Physician's | | | | | | [place], [facility] Floor | | | | | | [place], [place] | | | | | | [address] | | | | | | [phone] | | | +--------+ + + + [...]
--- OUTSIDE RECORDS SUMMARY | ~2019-12-16 | XMS | Clinical Summary ---
Demographics + + + | Address | [address] | | | [place] [address] | + + + | Home Phone [...] [place] | | | | | [address] | | + + + + + Care Team Providers + +------+ + | Care Haul Truck Driver Name | Role | Phone | + +------+ + | Hina [place] | PCP | | + +------+ + Source Comments FLIP is fully live on both EpicCare Ambulatory and EpicCare InPatient.[facility] Allergies + + + + + [...] | Possible avascular necrosis. Recommended referral to [facility] | | (10/22/2013 note) | + [...] / | | Alton Hernandez MD at [facility] | | Leg | | | [...] + + + | [address] [place] [address] | [facility] | | [place] [address] | [facility] | | [phone] Name: SANDY MARC (DINORA-EE-L) | RADIOLOGY | | Phys: BAMBI FRIED : 1990 Sex: F | | | CSN: [id number] MR# [id number] Exam Date: | | | 10/07/2019 EXAM: X-RAY KNEE 3 VIEWS LEFT [id number] CLINICAL | | | HISTORY: Left knee [...] proximal | | | tibial metadiaphysis. 2. Hpgx-sn-gcsntsya medial femorotibial joint | | | degeneration. REPORT SIGNED IN OTHER VENDOR SYSTEM | | | 10/08/2019 Reported by: HELENA BARRAZA MD Electronically | | | signed by: HELENA BARRAZA MD Transcribed Date/Time: 10/08/2019 | | | 13:44 Director Of Student Financial Services: FLUENCY | | + + + + + | Procedure Note | + + | Interface, Radiology Results - 10/08/2019 1:51 PM PST [address] | | [place] [address] | | Name: SANDY MARC (DINORA-EE-L) Phys: BAMBI FRIED : 1990 | | Sex: F CSN: [id number] MR# [id number] Exam Date: 10/07/2019 EXAM:X-RAY | | KNEE 3 VIEWS LEFT [id number] CLINICAL HISTORY:Left knee pain. COMPARISON:06/14/2019 left | [...] in the | | proximal tibial metadiaphysis.2. Mjtx-pz-ceakkkpw medial femorotibial joint | | degeneration. REPORT [...] in the proximal tibial metadiaphysis. | |2. Qpha-zr-pdqxxray medial femorotibial joint degeneration. | | | | | | REPORT SIGNED IN OTHER VENDOR SYSTEM 10/08/2019 | |Reported by: HELENA BARRAZA MD | | | |Electronically signed by: HELENA BARRAZA MD | | | |Transcribed Date/Time: 10/08/2019 13:44 | |Director Of Student Financial Services: FLUENCY | | | | | | [...] | | | + +--------+ +--------+-------+---------+--------+ | WOOL SAMPLER MEDICAID | WOOL SAMPLER | xxxxxxxx | Effect | | | Medica | | | EASTER | | cindi | | | id | | | [place] | | for | | | | | | | | all | | | | | | | | dates | | | | + +--------+ +--------+-------+---------+--------+ | WOOL SAMPLER MEDICAID | WOOL SAMPLER | xxxxxxxx | 08/11/19 | | | [...] | 1990 | [phone] | [place] [address] | | | nayla | | | 2 (Home) | | + +--------+ +--------+ + + | Dinora Marcdmitrioc | Person | Self | [birth year] | [address] | | (Dinora-ee-l) Alexa | al/Fam | | 1990 | [phone] | [place] [address] | | | nayla | | | [...]
--- OUTSIDE RECORDS SUMMARY | ~2019-12-16 | XMS | Encounter Summary ---
Demographics + + + | Address | [address] | | | [place] [address] | + + + | Home Phone [...] [place] | | | | | [address] | | + + + + + Care Team Providers + +------+ + | Care Artificial Snow Making Machine Operator Name | Role | [...] | | | Orthopaedic Surgery | [place], [place] | | | | | [address] | [address] | | | | | [place], [place] | [phone] | | | | | [address] | | | | | | [phone] | | | +--------+ + + + [...] | + + + + + | [facility] | And | [place] | [phone] | | MEDICAL CENTER | [facility] | [address] | | + + + + + [...] + + | [facility] [facility] [address] [place] | [place] | [phone] | | MEDICAL CENTER | [facility] | [address] | | + + + + + documented in this encounter Visit Diagnoses + + | Diagnosis | + + | Osteomyelitis of knee region (HCC) - Primary Unspecified osteomyelitis, lower leg | + + documented in this encounter"
--- OUTSIDE RECORDS SUMMARY | ~2019-12-16 | XMS | Encounter Summary ---
Demographics + + + | Address | [address] | | | [place] [address] | + + + | Home Phone [...] [place] | | | | | [address] | | + + + + + Care Team Providers + +------+ + | Care Environmental Health Aide Name | Role | Phone | + +------+ + | Adilia Bob HEAD WELL PULLER | PCP | | + +------+ + Encounter Details +--------+ + + + + | Date | Type | Department | Care Team | Description | +--------+ + + + + | 11/25/ | Paleobotanist | Orthopaedics at | Alton Hernandez MD | Osteomyelitis of | | 2012 | | [facility] [address] | | knee region (HCC) | | | | [address] | | (Primary Dx); | | | | Mailcode: [id number] | | Pathologic fracture | | | | Phys[facility] | | of tibia or fibula | | | | [place], [place] | | | | | | [address] | | | | | | [phone] | | | +--------+ + + + [...] + +---------+ + + | [facility] DEPARTMENT OF | | | | | [...] + +---------+ + + | [facility] DEPARTMENT OF | | | | | [...]
--- OUTSIDE RECORDS SUMMARY | ~2019-12-16 | XMS | Encounter Summary ---
Demographics + + + | Address | [address] | | | [place] [address] | + + + | Home Phone [...] + + | Author | [facility] | + + + | Organization | [facility] | + + + | Address | Unknown | + + + | Phone | Unavailable | + + + Support + + + + + | Name | Relationship | Address | Phone | + + + + + | Grisel Marc | ECON | [address] | | | | | [place] | | | | | [address] | | + + + + + Care Team Providers + +------+ + | Care Tennis Net Maker Name | Role | Phone | [...] | | | | of right | [address] | [address] | | | | | patella, | [address] | | | | | initial | [place], [place] | [place] | | | | | encounter | [address] | [address] | | | | | Pain in | Phone: | Phone: | | | | | right knee | [phone] | [phone] | | | | | | Fax: | Fax: | | | | | | [phone] | [phone] | +--------+--------+ + + + + Encounter [...] | | [address] | [address] | (Primary Dx) | | | | [address] | [phone] | | | | | [place], [place] | | | | | | [address] | | | | | | [phone] | | | +--------+---------+ + + + [...]
--- OUTSIDE RECORDS SUMMARY | ~2019-12-16 | XMS | Encounter Summary ---
Demographics + + + | Address | [address] | | | [place] [address] | + + + | Home Phone [...] [place] | | | | | [address] | | + + + + + Care Team Providers + +------+ + | Care Livestock Haulier Name | Role | Phone | + [...] | | | | Osteomyeliti | [place] [address] | ,PhD 4531 | | | | | s of knee | [address] | [address] | | | | | region ([facility]) | [facility] | 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 Radiology: X-ray examination 06/04/19 demonstrates [place] changes and mild medial joint space narr owing. There are sclerotic changes noted tibial and femur MRI left knee from [facility] demonstrates Chronic ACL tear and [...] her age we will refer her to [facility] for possible osteochondral allograft, reconstr uction Follow up: linda Saba MD [facility] Orthopaedics and Rehabilitation Clinical Flatwork Finisher Board Certified in Sports Medicine and Orthopaedic Surgery Director of Total Joint Replacement Program, [facility] Orthopaedics and Sports Medicine [address] [place] [address] Office: [phone] documented in this e ncounter Plan of [...]
--- OUTSIDE RECORDS SUMMARY | ~2019-12-16 | XMS | Encounter Summary ---
Demographics + + + | Address | [address] | | | [place] [address] | + + + | Home Phone [...] + | Grisel Marc | ECON | [address] | | | | | [place] | | | | | [address] | | + + + + + Care Team Providers + +------+ + | Care Coil Connector Repairer Name | Role | Phone | + +------+ + | Hina Peterson | PCP | | + +------+ + Encounter Details +--------+ + + + + | Date | Type | Department | Care Team | Description | +--------+ + + + + | 10/07/ | Hospital | [facility] | | | | 2019 | Encounter | Sports Medicine & | | | | | | Orthopaedic Surgery | | | | | | [address] | | | | | | [place] | | | | | | [address] | | | | | | [phone] | | | +--------+ + + + [...] | + + + | [address] [place] [address] | [facility] | | [place] [address] | DEPARTMENT OF | | [phone] Name: SANDY MARC (SHARIF-EE-L) | RADIOLOGY | | Phys: MARLA FRIED : 1990 Sex: F | | | CSN: [id number] MR# [id number] Exam Date: | | | 10/07/2019 EXAM: X-RAY KNEE 3 VIEWS LEFT [id number] CLINICAL | | | HISTORY: Left knee [...] proximal | | | tibial metadiaphysis. 2. Zedm-de-pjgisqeo medial femorotibial joint | | | degeneration. REPORT SIGNED IN OTHER VENDOR SYSTEM | | | 10/08/2019 Reported by: HELENA BARRAZA MD Electronically | | | signed by: HELENA BARRAZA MD Transcribed Date/Time: 10/08/2019 | | | 13:44 Gear Nicker: FLUENCY | | + + + + + | Procedure Note | + + | Interface, Radiology Results - 10/08/2019 1:51 PM PST [address] | | [address] [place] [address] | | Name: SANDY MARC (SHARIF-EE-L) Phys: MARLA FRIED : 1990 | | Sex: F CSN: [id number] MR# [id number] Exam Date: 10/07/2019 EXAM:X-RAY | | KNEE 3 VIEWS LEFT [id number] CLINICAL HISTORY:Left knee pain. COMPARISON:06/14/2019 left | [...] in the | | proximal tibial metadiaphysis.2. Agtg-io-ozgxvfpi medial femorotibial joint | | degeneration. REPORT [...] in the proximal tibial metadiaphysis. | |2. Oslt-iv-kkljsmza medial femorotibial joint degeneration. | | | | | | REPORT SIGNED IN OTHER VENDOR SYSTEM 10/08/2019 | |Reported by: HELENA BARRAZA MD | | | |Electronically signed by: HELENA BARRAZA MD | | | |Transcribed Date/Time: 10/08/2019 13:44 | |Gear Nicker: FLUENCY | | | | | | [...]
--- OUTSIDE RECORDS SUMMARY | ~2019-12-16 | XMS | Encounter Summary ---
Demographics + + + | Address | [address] | | | [place] [address] | + + + | Home Phone [...] [place] | | | | | [address] | | + + + + + Care Team Providers + +------+ + | Care Air Sealing Technician Name | Role | Phone | + +------+ + | Adilia Bob STRATEGIC BUYER | PCP | | + +------+ + Encounter Details +--------+ + + + + | Date | Type | Department | Care Team | Description | +--------+ + + + + | 10/16/ | Jr. Systems Administrator | Infectious | Brigid Hardy | Osteomyelitis of | | 2012 | | [facility] at [facility] | L, [place] | knee region (HCC) | | | | [address] | | (Primary Dx) | | | | [address] [facility] | | | | | | [address], 3rd floor | | | | | | [place], [place] | | | | | | [address] | | | | | | [phone] | | | +--------+ + + + [...]
--- OUTSIDE RECORDS SUMMARY | 2019-12-16 19:40 | XMS ---
PreManage Notification: ALYSA HARTMAN Security Health Benefits Specialist Events No recent Security Events currently on file CRITERIA MET - 6 ED Visits in 6 Months - [facility] - Has Care Guidelines - PDMP CARE PROVIDERS EFRAÍN Singer Nurse Practitioner 04/26/2019-Current JOSÉ MANUEL PHONE: [phone] SARA CLIFFORD Physician Sales Office Assistant 07/14/2015-Current Roseanna PHONE: [phone] MARJORIE [facility] 08/25/2019-Current PHONE: [phone] Guidelines Source: [facility] Bernard Becker Guidelines Date: 02/15/2019 Care Coordination: Mental health services provided by [facility].\T\nbsp; Please contact [facility] with mental health concerns.\T\nbsp; [place]: [phone]\T\ nbsp; [place]: [phone]. Care History Medical/Surgical 09/20/2019 [facility] Care Recommendation: - USE EXTREME CAUTION IN GIVING NARCOTICS. - Avoid Discharge Narcotic prescriptions if at all possible. Physician discretion. 08/25/2019 [facility] - PATIENT HAS PCP DR AMADOR- JANAE INFANTE IN [place]. - PATIENT HAS AN APT WITH DENTAL CLINIC ON Friday08/30/2019. E.D. VISIT COUNT (12 MO.) 1 [facility] 3 [facility] 1 [facility] 1 [facility] 7 [facility] TOTAL 13 NOTE: Visits indicate total known visits. ED/UCC VISIT TRACKING (12 MO.) 12/16/2019 19:37 [facility] [place] TYPE: Emergency COMPLAINT: - LEFT KNEE PAIN 10/11/2019 13:00 [facility] [place] TYPE: Emergency COMPLAINT: - COUGH, MSE TO CLINIC DIAGNOSES: - Cough 09/25/2019 22:01 [facility] TYPE: Emergency COMPLAINT: - KNEE PAIN [...] KNEE PAIN DIAGNOSES: - Allergy status to other drugs, medicaments and biological sub - Latex allergy status - Nicotine dependence, unspecified, uncomplicated - Other nonmedicinal substance allergy status - Attention-deficit hyperactivity disorder, unspecified type - Other custodial (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 - Allergy status to [...] without sinus - Fracture of tooth (traumatic), initial encounter for closed f - Allergy status to penicillin - Latex allergy status - Nicotine dependence, unspecified, uncomplicated - Other nonmedicinal substance allergy status - Other specified disorders of teeth and supporting structures - Other custodial (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 - Striking against or struck by other objects, initial encounte - Allergy status to sulfonamides status 08/17/2019 20:37 [facility] [place] TYPE: Emergency COMPLAINT: - ABD PAIN/FEVER DIAGNOSES: - Allergy status to sulfonamides status - Latex allergy status - Allergy status to penicillin - Nicotine dependence, unspecified, uncomplicated - Other custodial (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 - Right lower quadrant pain - Attention-deficit hyperactivity disorder, unspecified type - Other nonmedicinal substance allergy status [facility] DIAGNOSES: - poss vomiting blood - Emesis - Procedure and treatment not carried out due to patient leavin 05/28/2019 22:32 [facility] [place] TYPE: Emergency COMPLAINT: - LT KNEE INJURY DIAGNOSES: - Attention-deficit hyperactivity disorder, unspecified type - Nicotine dependence, unspecified, uncomplicated - Allergy status to sulfonamides status - Other nonmedicinal substance allergy status - Pain in left knee - Allergy status to penicillin - Sprain of unspecified site of left knee, initial encounter - 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 - Overexertion from prolonged static or awkward postures, initi 05/01/2019 01:28 [facility] [place] TYPE: Emergency DIAGNOSES: - COUGH EAR PAIN FEVER - Otitis media, unspecified, right ear - Acute bronchitis, unspecified 04/23/2019 20:00 [facility] [place] TYPE: Emergency COMPLAINT: - SKIN PROBLEM DIAGNOSES: - Local infection of the skin and subcutaneous tissue, unspecif - Attention-deficit hyperactivity disorder, unspecified type - Allergy status to sulfonamides status - Allergy status to penicillin - Cellulitis of right lower limb - Other nonmedicinal substance allergy status - Nicotine dependence, unspecified, uncomplicated - Other custodial (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 04/06/2019 00:58 [facility] [place] TYPE: Emergency DIAGNOSES: - Acute pharyngitis, unspecified - sore throat [facility] DIAGNOSES: - WEAKNES NAUSEA VOMITING - Nausea with vomiting, unspecified - Dizziness and giddiness INPATIENT VISIT TRACKING (12 MO.) No inpatient visits to display in this time frame [id number]
[2019-12-16] MEDS ORDERED: METHYLPHENIDATE10 MG PO (19:51)
[2019-12-16] MEDS ORDERED: DICLOFENAC SODI75 MG PO (19:51)
[2019-12-16] MEDS ORDERED: CRUTCH1 EACH MISC (20:25)
[2019-12-16] MEDS ORDERED: NORCO 5-325 TA1 EACH PO (20:25)
== END 2019-12-16 20:38 | disposition home or self-care (01) ==
LOC: ED 19:36
DX: M79.662 Pain in left lower leg (principal); F17.200 Nicotine dependence, unspecified, uncomplicated; Z88.8 Allergy status to other drugs, medicaments and biological substances; Z88.2 Allergy status to sulfonamides; Z91.048 Other nonmedicinal substance allergy status; Z88.0 Allergy status to penicillin; Z91.040 Latex allergy status; Z79.899 Other long term (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
CPT/HCPCS: 73590; 99283-25

== ENCOUNTER 2020-01-22 22:39 | Emergency (ER) | payer OTHER ==
[~2020-01-22] VITALS: Ht 170.2 cm; Wt 88.7 kg
[~2020-01-22 22:39] MED LIST changes: +CRUTCH1 EACH MISC; +DICLOFENAC SODI75 MG PO; +METHYLPHENIDATE10 MG PO
--- OUTSIDE RECORDS SUMMARY | 2020-01-22 22:44 | XMS ---
PreManage Notification: ALYSA HARTMAN Security Keno Attendant Events No recent Security Events currently on file CRITERIA MET - 6 ED Visits in 6 Months - [facility] - Has Care Guidelines - PDMP CARE PROVIDERS EFRAÍN Singer Nurse Practitioner 04/26/2019-Current JOSÉ MANUEL PHONE: [phone] MARJORIE [facility] 07/14/2015-Current PHONE: [phone] Guidelines Source: [employer] [place] Guidelines Date: 02/15/2019 Care Coordination: Mental health services provided by [employer].\T\nbsp; Please contact [employer] with mental health concerns.\T\nbsp; Serina/Edward U[place]: [phone]\T\ nbsp; Angie: [phone]. Care History Medical/Surgical 09/20/2019 [facility] Care Recommendation: - USE EXTREME CAUTION IN GIVING NARCOTICS. - Avoid Discharge Narcotic prescriptions if at all possible. Physician discretion. 08/25/2019 [facility] - PATIENT HAS PCP DR AMADOR- [facility] IN [place]. - PATIENT HAS AN APT WITH DENTAL CLINIC ON Friday08/30/2019. Leena VISIT COUNT (12 MO.) 1 [facility] 3 [facility] 8 COREY Burrell TOTAL 14 NOTE: Visits indicate total known visits. ED/UCC VISIT TRACKING (12 MO.) 01/22/2020 22:41 COREY Mendiola [place] TYPE: Emergency COMPLAINT: - FOOT INJURY 12/16/2019 19:37 COREY Funk TYPE: Emergency COMPLAINT: - LEFT KNEE PAIN DIAGNOSES: - Allergy status to other drugs, medicaments and biological sub - Other nonmedicinal substance allergy status - Other skilled nursing (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 - Latex allergy status - Allergy status to penicillin - Pain in left lower leg - Allergy status to sulfonamides status - Nicotine dependence, unspecified, uncomplicated 10/11/2019 13:00 COREY Funk TYPE: Emergency COMPLAINT: - COUGH, MSE TO [...] Attention-deficit hyperactivity disorder, unspecified type - Other skilled nursing (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 - Allergy status to penicillin - Sprain of unspecified site of left knee, initial encounter - Allergy status to sulfonamides status - Exposure to other specified factors, initial encounter 09/16/2019 00:28 Cash [place] TYPE: Emergency DIAGNOSES: - Poss UTI/Vaginal [...] of teeth and supporting structures - Other intermodal truck driver (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 - Striking against or struck by other objects, initial encounte - Allergy status to sulfonamides status 08/17/2019 20:37 COREY Funk TYPE: Emergency COMPLAINT: - ABD PAIN/FEVER DIAGNOSES: - Allergy status to sulfonamides status - Latex allergy status - Allergy status to penicillin - Nicotine dependence, unspecified, uncomplicated - Other skilled nursing (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 - Right lower quadrant pain - Attention-deficit hyperactivity disorder, unspecified type - Other nonmedicinal substance allergy status [facility]2019 [facility] DIAGNOSES: - poss vomiting blood - Emesis - Procedure and treatment not carried out due to patient leavin 05/28/2019 22:32 COREY Funk TYPE: Emergency COMPLAINT: - LT KNEE INJURY DIAGNOSES: - Attention-deficit hyperactivity disorder, unspecified type - Nicotine dependence, unspecified, uncomplicated - Allergy status to sulfonamides status - Other nonmedicinal substance allergy status - Pain in left knee - Allergy status to penicillin - Sprain of unspecified site of left knee, initial encounter - Other 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 truck driver (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 - Overexertion from prolonged static or awkward postures, initi 05/01/2019 01:28 [facility] [place] TYPE: Emergency DIAGNOSES: - COUGH [...] - Nicotine dependence, unspecified, uncomplicated - Other intermodal truck driver (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
[2020-01-22] MEDS ORDERED: NORCO 5-325 TA1 EACH PO (23:53)
== END 2020-01-23 00:25 | disposition home or self-care (01) ==
LOC: ED 22:39
DX: S91.202A Unspecified open wound of left great toe with damage to nail, initial encounter (principal); F90.9 Attention-deficit hyperactivity disorder, unspecified type; F17.200 Nicotine dependence, unspecified, uncomplicated; Z88.2 Allergy status to sulfonamides; Z91.048 Other nonmedicinal substance allergy status; Z88.1 Allergy status to other antibiotic agents; Z91.040 Latex allergy status; Z79.899 Other long term (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; X58.XXXA Exposure to other specified factors, initial encounter
CPT/HCPCS: 11730; 99283-25

== ENCOUNTER 2020-01-29 19:59 | Emergency (ER) | payer OTHER ==
[~2020-01-29] VITALS: Ht 170.2 cm; Wt 88.5 kg
--- OUTSIDE RECORDS SUMMARY | 2020-01-29 20:02 | XMS ---
PreManage Notification: ALYSA HARTMAN Security Stores Laborer Events No recent Security Events currently on file CRITERIA MET - 6 ED Visits in 6 Months - [facility] - Has Care Guidelines - PDMP - [facility] - 2 Visits in 30 Days CARE PROVIDERS EFRAÍN Singer Nurse Practitioner 04/26/2019-Current [facility] PHONE: [phone] [facility] PHONE: [phone] Guidelines Source: [facility] Guidelines Date: 02/15/2019 Care Coordination: Mental health services provided by [employer].\T\nbsp; Please contact [employer] with mental health concerns.\T\nbsp; Serina/Edward Ugarte: [phone]\T\ nbsp; Angie: [phone]. Care History Medical/Surgical 09/20/2019 [facility] Care Recommendation: - USE EXTREME CAUTION IN GIVING NARCOTICS. - Avoid Discharge Narcotic prescriptions if at all possible. Physician discretion. 08/25/2019 [facility] - PATIENT HAS PCP DR AMADOR- [facility] [place]. - PATIENT HAS AN APT WITH DENTAL CLINIC ON Friday08/30/2019. Leena VISIT COUNT (12 MO.) 1 [facility] 3 [facility] 1 [facility] 1 [facility] 9 [facility] TOTAL 15 NOTE: Visits indicate total known visits. ED/UCC VISIT TRACKING (12 MO.) 01/29/2020 20:00 [facility] [place] [facility] COMPLAINT: - FOOT PAIN/INJURY 01/22/2020 22:41 COREY Mendi[place] TYPE: Emergency COMPLAINT: - FOOT INJURY DIAGNOSES: - Unspecified open wound of left great toe with damage to nail, - Latex allergy status - Allergy status to sulfonamides status - Attention-deficit hyperactivity disorder, unspecified type - Allergy status to other antibiotic agents status - Nicotine dependence, unspecified, uncomplicated - Other oysterman (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 - Exposure to other specified factors, initial encounter - Other nonmedicinal substance allergy status 12/16/2019 19:37 CORE[facility] [place] TYPE: Emergency COMPLAINT: - LEFT KNEE PAIN DIAGNOSES: - Allergy status to other drugs, medicaments and biological sub - Other nonmedicinal substance allergy status - Other oysterman (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 - Latex allergy status - Allergy status to penicillin - Pain in left lower leg - Allergy status to sulfonamides status - Nicotine dependence, unspecified, uncomplicated 10/11/2019 13:00 COREY Mend[place] TYPE: Emergency COMPLAINT: - COUGH, MSE TO CLINIC DIAGNOSES: - Cough 09/25/2019 22:01 Angel Gordon [place] TYPE: Emergency COMPLAINT: - KNEE PAIN - PAIN IN LEFT KNEE DIAGNOSES: 0. Pain in left knee 1. Unspecified injury of left lower leg, initial encounter 3. Exposure to other specified factors, initial encounter 4. Activity, unspecified 5. Unspecified place or not applicable 6. Nicotine dependence, cigarettes, uncomplicated 09/19/2019 08:25 COREY Funk TYPE: Emergency COMPLAINT: - LEFT KNEE PAIN DIAGNOSES: - Allergy status to other drugs, medicaments and biological sub - Latex allergy status - Nicotine dependence, unspecified, uncomplicated - Other nonmedicinal substance allergy status - Attention-deficit hyperactivity disorder, unspecified type - Other group home (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 - Allergy status to penicillin - Sprain of unspecified site of left knee, initial encounter - Allergy status to sulfonamides status - Exposure to other specified factors, initial encounter 09/16/2019 00:28 Cash [place] TYPE: Emergency DIAGNOSES: - Poss UTI/Vaginal bleeding 08/24/2019 18:02 COREY Funk TYPE: Emergency COMPLAINT: - TOOTH PAIN DIAGNOSES: - Periapical abscess without sinus - Fracture of tooth (traumatic), initial encounter for closed f - Allergy status to penicillin - Latex allergy status - Nicotine dependence, unspecified, uncomplicated - Other nonmedicinal substance allergy status - Other specified disorders of teeth and supporting structures - Other oysterman (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 - Striking against or struck by other objects, initial encounte - Allergy status to sulfonamides status 08/17/2019 20:37 COREY Funk TYPE: Emergency COMPLAINT: - ABD PAIN/FEVER DIAGNOSES: - Allergy status to sulfonamides status - Latex allergy status - Allergy status to penicillin - Nicotine dependence, unspecified, uncomplicated - Other oysterman (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 - Right lower quadrant pain - Attention-deficit hyperactivity disorder, unspecified type - Other nonmedicinal substance allergy status 06/19/2019 13:51 [facility] Opal FISCHER TYPE: Emergency DIAGNOSES: - poss [...] of left knee, initial encounter - Other oysterman (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 - Overexertion from prolonged static or awkward postures, initi 05/01/2019 01:28 [facility] [place] TYPE: Emergency DIAGNOSES: - COUGH EAR [...] - Nicotine dependence, unspecified, uncomplicated - Other group home (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 04/06/2019 00:58 [facility] [place] TYPE: Emergency DIAGNOSES: - Acute pharyngitis, unspecified - sore throat 02/14/2019 15:53 [facility] [place] TYPE: Emergency DIAGNOSES: - WEAKNES NAUSEA VOMITING - Nausea with vomiting, unspecified - Dizziness and giddiness INPATIENT VISIT TRACKING (12 MO.) No inpatient visits to display in this time frame [id number]
== END 2020-01-29 20:31 | disposition home or self-care (01) ==
LOC: ED 19:59
DX: M79.674 Pain in right toe(s) (principal); F17.200 Nicotine dependence, unspecified, uncomplicated; Z88.8 Allergy status to other drugs, medicaments and biological substances; Z88.2 Allergy status to sulfonamides; Z91.048 Other nonmedicinal substance allergy status; Z88.0 Allergy status to penicillin; Z91.040 Latex allergy status; Z79.899 Other long term (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
CPT/HCPCS: 99283

== ENCOUNTER 2020-03-08 01:23 | Emergency (ER) | payer OTHER ==
[~2020-03-08] VITALS: Ht 170.2 cm; Wt 88.5 kg
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
--- OUTSIDE RECORDS SUMMARY | ~2020-03-08 | XMS | Encounter Summary ---
Demographics + + + | Address | [address] | | | [place] [address] | + + + | Home Phone | | + + + | Preferred Language | Unknown | + + + | Marital Status | Single | + + + | Rastafari Affiliation | LUT | + + + | Race | White | + + + | Ethnic Group | Not or | + + + Author + + + | Author | [facility] | + + + | Organization | [facility] | + + + | Address | Unknown | + + + | Phone | Unavailable | + + + Support + + + + + | Name | Relationship | Address | Phone | + + + + + | Grisel Marc | ECON | [address] | | | | | [place] | | | | | [address] | | + + + + + Care Team Providers + +------+ + | Care Plug Shaper Hand Name | Role | Phone | + +------+ + | Adilia BobP | PCP | | + +------+ + Encounter Details +--------+ + + + + | Date | Type | Department | Care Team | Description | +--------+ + + + + | 09/09/ | Abstract | Infectious | [facility] | | | 2012 | | [facility] | [place] | | | | | [address] [place] | | | | | | [address] | | | | | | [place], [address] floor | | | | | | [place], [place] | | | | | | [address] | | | | | | [phone] | | | +--------+ + + + + Social History + +-------+ +--------+------+ | Tobacco Use | Types | Packs/Day | Years | Date | | | | | Used | | + +-------+ +--------+------+ | Never Smoker | | | | | + +-------+ +--------+------+ + +---+---+---+ | Smokeless Tobacco: | | | | | Never Used | | | | + +---+---+---+ + + +---------+ + | Alcohol Use | Drinks/Week | oz/Week | Comments | + + +---------+ + | Yes | | | 4 beers on [place] | | | | | and Sturday nights | + [...] recent travel history available. | + + documented as of this encounter Plan of Treatment Not on filedocumented as of this encounter Procedures + +--------+ + + + | Procedure Name | Priori | Date/Time | Associated Diagnosis | Comments | | | ty | | | | + +--------+ + + + | CBC, WITH | Routin | 09/07/2012 | | Results for this | | DIFFERENTIAL | e | 7:12 AM | | procedure are in the | | | | PST | | results section. | + +--------+ + + + | COMPLETE METABOLIC | Routin | 09/07/2012 | | Results for this | | SET | e | 7:12 AM | | procedure are in the | | (NA,K,CL,CO2,BUN,CRE | | PST | | results section. | | AT,GLUC,CA,AST,ALT,B | | | | | | JENNIFER TOTAL,ALK | | | | | | PHOS,ALB,PROT TOTAL) | | | | | + +--------+ + + + documented in this encounter Results CBC, WITH DIFFERENTIAL (09/07/2012 7:12 AM PST) + +---------+ + + + | Component | Value | Ref Range | Performed | Pathologist | | | | | At | Signature | + +---------+ + + + | WHITE CELL | 8.4 | K/cu mm | NON [facility] | | | COUNT | | | LAB | | + +---------+ + + + | RED CELL | 3 | M/cu mm | NON [facility] | | | COUNT | | | LAB | | + +---------+ + + + | HEMOGLOBIN | 8.7 (A) | - | NON [facility] | | | | | g/dL | LAB | | + +---------+ + + + | HEMATOCRIT | 26.3 | % | NON [facility] | | | | | | LAB | | + +---------+ + + + | MCV | 87 | fL | [facility] | | | | | | LAB | | + +---------+ + + + | MCH | 29 | pg | NON [facility] | | | | | | LAB | | + +---------+ + + + | MCHC | 33.3 | g/dL | NON [facility] | | | | | | LAB | | + +---------+ + + + | PLATELET | 297 | K/cu mm | NON [facility] | | | COUNT | | | LAB | | + +---------+ + + + | NEUTROPHIL | 54.9 | % | NON [facility] | | | % | | | LAB | | + +---------+ + + + | LYMPHOCYTE | 31.3 | % | NON [facility] | | | % | | | LAB | | + +---------+ + + + | MONOCYTE % | 6.2 | % | NON [facility] | | | | | | LAB | | + +---------+ + + + | EOS % | 6.8 | % | [facility] | | | | | | LAB | | + +---------+ + + + | BASO % | 0.9 | % | NON [facility] | | | | | | LAB | | + +---------+ + + + | RDW | 12.9 | % | NON [facility] | | | | | | LAB | | + +---------+ + + + | MPV | | fL | NON [facility] | | | | | | LAB | | + +---------+ + + + | NEUTROPHIL | 4.6 | K/cu mm | NON [facility] | | | # | | | LAB | | + +---------+ + + + | LYMPHOCYTE | 2.6 | K/cu mm | [facility] | | | # | | | LAB | | + +---------+ + + + | MONOCYTE # | 0.5 | K/cu mm | [facility] | | | | | | LAB | | + +---------+ + + + | EOS # | 0.6 | K/cu mm | [facility] | | | | | | LAB | | + +---------+ + + + | BASO # | 0.1 | | NON [facility] | | | | | | LAB | | + +---------+ + + + | ESR (SED | 61 | | NON [facility] | | | RATE) | | | LAB | | + +---------+ + + + + + | Specimen | + + | Blood - Blood | + + + +---------+ + + | Performing | Address | City/State/Zipcode | Phone Number | | Organization | | | | + +---------+ + + | NON [facility] | | | | + +---------+ + + COMPLETE METABOLIC SET (NA,K,CL,CO2,BUN,CREAT,GLUC,CA,AST,ALT,BILI TOTAL,ALK PHOS,ALB,PROT TOTAL) (09/07/2012 7:12 AM PST) + +-------+ + + + | Component | Value | Ref Range | Performed | Pathologist | | | | | At | Signature | + +-------+ + + + | GLUCOSE, | 100 | 65 - 110 mg/dL | NON [facility] | | | PLASMA | | | LAB | | | (LAB) | | | | | + +-------+ + + + | BUN, PLASMA | 8 | mg/dL | NON [facility] | | | (LAB) | | | LAB | | + +-------+ + + + | CREATININE | 0.66 | mg/dL | NON [facility] | | | PLASMA | | | LAB | | | (LAB) | | | | | + +-------+ + + + | TOTAL | 5.9 | g/dL | NON [facility] | | | PROTEIN, | | | LAB | | | PLASMA | | | | | | (LAB) | | | | | + +-------+ + + + | ALBUMIN, | 3.2 | g/dL | NON [facility] | | | PLASMA | | | LAB | | | (LAB) | | | | | + +-------+ + + + | CALCIUM, | 9.5 | mg/dL | NON [facility] | | | PLASMA | | | LAB | | | (LAB) | | | | | + +-------+ + + + | BILIRUBIN | 0.2 | Transcutaneous | NON [facility] | | | TOTAL | | Bilirubinometer | LAB | | + +-------+ + + + | ALK PHOS | 63 | U/L | NON [facility] | | | | | | LAB | | + +-------+ + + + | AST(SGOT) | 21 | U/L | NON [facility] | | | | | | LAB | | + +-------+ + + + | SODIUM, | 141 | mmol/L | NON [facility] | | | PLASMA | | | LAB | | | (LAB) | | | | | + +-------+ + + + | POTASSIUM, | 3.7 | mmol/L | NON [facility] | | | PLASMA | | | LAB | | | (LAB) | | | | | + +-------+ + + + | CHLORIDE, | 105 | mmol/L | NON [facility] | | | PLASMA | | | LAB | | | (LAB) | | | | | + +-------+ + + + | TOTAL CO2, | 28 | mmol/L | NON [facility] | | | PLASMA | | | LAB | | | (LAB) | | | | | + +-------+ + + + | ALT (SGPT) | 25 | U/L | NON [facility] | | | | | | LAB | | + +-------+ + + + | C-REACTIVE | 18.8 | mg/dl | NON [facility] | | | PROTEIN | | | LAB | | + +-------+ + + + | VANCOMYCIN, | 4.7 | ug/mL | NON [facility] | | | TROUGH | | | LAB | | + +-------+ + + + + + | Specimen | + + | Blood - Blood | + + + +---------+ + + | Performing | Address | City/State/Zipcode | Phone Number | | Organization | | | | + +---------+ + + | NON [facility] | | | | + +---------+ + + documented in this encounter Visit Diagnoses Not on filedocumented in this encounter"
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
--- OUTSIDE RECORDS SUMMARY | ~2020-03-08 | XMS | Encounter Summary ---
Demographics + + + | Address | [address] | | | [place] [address] | + + + | Home Phone | | + + + | Preferred Language | Unknown | + + + | Marital Status | Single | + + + | Sabianist Affiliation | LUT | + + + | Race | White | + + + | Ethnic Group | Not or | + + + Author + + + | Author | [facility] | + + + | Organization | [facility] | + + + | Address | Unknown | + + + | Phone | Unavailable | + + + Support + + + + + | Name | Relationship | Address | Phone | + + + + + | Grisel Marc | ECON | [address] | | | | | [place] | | | | | [address] | | + + + + + Care Team Providers + +------+ + | Care Health Screener Name | Role | Phone | + +------+ + | Hina Peterson | PCP | | + +------+ + Reason for Referral Diagnostic Testing (Routine) +--------+--------+ + + + + | Status | Reason | Specialty | Diagnoses / | Referred By | Referred To | | | | | Procedures | Contact | Contact | +--------+--------+ + + + + | Closed | | Radiology | Diagnoses | Maria Isabel | [facility] | | | | | Pain, | Mars Presley MD | [facility] | | | | | joint, knee, | [address] | [address] | | | | | right | [address] | [address] | | | | | Procedures | [place], | [place] | | | | | MRI KNEE RT | [place] | [address] | | | | | [place] | [address] | Phone: | | | | | MRI LOWER | Phone: | [phone] | | | | | EXTREM JT, | [phone] | Fax: | | | | | W/O CONTRAST | Fax: | [phone] | | | | | | [phone] | | +--------+--------+ + + + + Reason for Visit + + + | Reason | Comments | + + + | Follow-up visit | Right knee pain f/u. States knee is still slipping. | + + + Consultation (Routine) +--------+--------+ + + + + | Status | Reason | Specialty | Diagnoses / | Referred By | Referred To | | | | | Procedures | Contact | Contact | +--------+--------+ + + + + | Closed | | Orthopedics | Diagnoses | Nicholas, | [place], | | | | | Pain in | Hina Johnson, | Mars Presley MD | | | | | right knee | [address] | [address] | | | | | | | [address] [place] | | | | | | [place], | [place] | | | | | | [place] [address] | [address] | | | | | | Phone: | Phone: | | | | | | [phone] | [phone] | | | | | | Fax: | Fax: | | | | | | [phone] | [phone] | +--------+--------+ + + + + Encounter Details +--------+---------+ + + + | Date | Type | Department | Care Team | Description | +--------+---------+ + + + | 02/06/ | Office | [facility] | Mars Nicolas, | Pain, joint, knee, | | 2016 | Visit | Sports Medicine & | [address] | right (Primary Dx) | | | | Orthopaedic Surgery | Blvd [place], [place] | | | | | [address] | [address] | | | | | [address] | [phone] | | | | | [place], [place] | | | | | | [address] | | | | | | [phone] | | | +--------+---------+ + + + [...] + + + | Blood Pressure | 100/66 | 02/07/2016 1:23 PM | | | | | PDT | | + + + + + | Pulse | 81 | 02/07/2016 1:23 PM | | | | | PDT [...] + + + + | Weight | 85.3 kg (188 lb 2 | 02/07/2016 1:23 PM | | | | oz) | PDT | | + + + + + | Height | - | - | | + + + + + | Body Mass Index | 29.46 | 12/06/2015 3:05 PM | | | | | PDT | | + + + + + documented in this encounter Patient Instructions Patient Instructions Mars Nicolas MD - 02/07/2016 1:50 PM PDTMRI of R knee. We'll se e how we can address the brace problem with the left. Follow up after above. documented in this encounter Progress Notes Mars Nicolas MD - 02/07/2016 1:25 PM PDTFormatting of this note might be different fr om the original. Reason for visit; Patient presents with: Follow-up visit: Right knee pain f/u. States knee is still slipping. Onset/Date of Surgery; Date of Onset: 08/27/2015 Pain score; Pain Score: 0 - Zero Vital signs; BP 100/66 | Pulse 81 | Wt 85.333 kg (188 lb 2 oz) | BMI 29.46 kg/(m^2) S: States R knee slips out all the time, wi or w/o the brace. See last office visit for f ull history. PT wasn't helpful. Also, brace on left sounds worn out. Further exploration of slipping symptoms and she says it does what the left does: she can feel it move. It occu rs walking, going up or down stairs, getting up from sitting, etc. Pain is diffuse. O: Both knees have good ROM, strength, stab, neg apprehension, no specific areas TTP thoug h Rt med joint line is a little more tender than L, good distal CMS. Hips good ROM. L knee scars well healed. X: A: Ongoing R knee pain of ? Etiol. Her perceptions of slipping sounds a little more like giving way today than actual slipping of something (like a patella). P: MRI R to r/o internal derrangement. Refurbish L brace. Past Medical & Surgical History: Past medical and surgical history reviewed per patient intake form. Past Medical History Diagnosis Date Asthma ADHD (attention deficit hyperactivity disorder) Past Surgical History Procedure Laterality Date Leg [...] rence. Social history: Sandy reports that she quit smoking 8 days ago. Her smoking use included Cigarettes. She has a .5 pack-year smoking history. She has never used smokeless tobacco. She reports that she drinks alcohol. She reports that she does not use illicit drugs.. Allergies: Allergies as of 02/07/2016 - Fully Reviewed 02/07/2016 Allergen Reaction Noted Amoxicillin Diarrhea, Hives, Rash, Nausea, and Nausea and Vomiting 08/06/2012 Latex 09/29/2012 Sulfa (sulfonamide antibiotics) Hives 08/06/2012 Current Medications: Current Outpatient Prescriptions Medication albuterol 90 mcg/actuation Inhalation HFA Aerosol Inhaler cyclobenzaprine 10 mg oral tablet medroxyPROGESTERone 150 mg/mL intramuscular suspension methylphenidate 10 mg oral tablet naproxen 500 mg oral tablet polyethylene glycol 17 gram/dose oral powder No current facility-administered medications for this visit. Review of Systems Constitutional: Negative for fever and weight loss. HENT: Negative for nosebleeds and sore throat. Respiratory: Negative for cough and shortness of breath. Cardiovascular: Negative for chest pain and leg swelling. Gastrointestinal: Negative for heartburn and blood in stool. Genitourinary: Negative for dysuria and frequency. Musculoskeletal: Positive for joint pain. Negative for falls. Skin: Negative for itching and rash. Neurological: Negative for tremors and seizures. Psychiatric/Behavioral: Negative for depression and substance abuse. documented in this e ncounter Plan of Treatment + +---------+--------+ + + | Name | Type | Priori | Associated Diagnoses | Order Schedule | | | | ty | | | + +---------+--------+ + + | MRI KNEE RT WO CONT | Imaging | Routin | Pain, joint, knee, | Expected: | | | | e | right | 02/07/2016, Expires: | | | | | | 03/09/2017 | + +---------+--------+ + + documented as of this encounter Visit Diagnoses + + | Diagnosis | + + | Pain, joint, knee, right - Primary Pain in joint, lower leg | + + documented in this encounter"
--- OUTSIDE RECORDS SUMMARY | ~2020-03-08 | XMS | Encounter Summary ---
Demographics + + + | Address | [address] | | | [place] [address] | + + + | Home Phone [...] Author + + + | Author | [facility] | + + + | Organization | [facility] | + + + | Address | Unknown | + + + | Phone | Unavailable | + + + Support + + + + + | Name | Relationship | Address | Phone | + + + + + | Grisel Marc | ECON | [address] | | | | | [place] | | | | | [address] | | + + + + + Care Team Providers + +------+ + | Care Funeral Planner Name | Role | Phone | + +------+ + | Hina Peterson | PCP | | + +------+ + Encounter Details +--------+ + + + + | Date | Type | Department | Care Team | Description | +--------+ + + + + | 02/21/ | Document-Sc | [facility] | Mars Nicolas, | | | 2016 | anned | Sports Medicine & | [address] | | | | | Orthopaedic Surgery | [place] | | | | | [address] | [address] | | | | | [place] | [phone] | | | | | [place] | | | | | | [address] | | | | | | [phone] | | | +--------+ + + + [...] + + + | RADIOLOGY | | 02/20/2016 | | Results for this | | | | 12:00 AM | | procedure are in the | | | | PDT | | results section. | + +--------+ + + + documented in this encounter Results RADIOLOGY (02/20/2016 12:00 AM PDT) + + + | Narrative | Performed At | + + + | | | + + + documented in this encounter Visit Diagnoses Not on filedocumented in this encounter"
--- OUTSIDE RECORDS SUMMARY | ~2020-03-08 | XMS | Encounter Summary ---
Demographics + + + | Address | [address] | | | [place] [address] | + + + | Home Phone | | + + + | Preferred Language | Unknown | + + + | Marital Status | Single | + + + | Restorationist Affiliation | LUT | + + + | Race | White | + + + | Ethnic Group | Not or | + + + Author + + + | Author | [facility] | + + + | Organization | [facility] | + + + | Address | Unknown | + + + | Phone | Unavailable | + + + Support + + + + + | Name | Relationship | Address | Phone | + + + + + | Grisel Marc | ECON | [address] | | | | | [place] | | | | | [address] | | + + + + + Care Team Providers + +------+ + | Care Dining Host Name | Role | Phone | + +------+ + | Hina Peterson | PCP | | + +------+ + Reason for Visit + + + | Reason | Comments | + + + | Care Coordination | | + + + Encounter Details +--------+ + + + + | Date | Type | Department | Care Team | Description | +--------+ + + + + | 06/22/ | Telephone | [facility] | Cami Blue, | Care Coordination | | 2019 | | Sports Medicine & | [place] [address] | | | | | Orthopaedic Surgery | [place], [place] | | | | | [address] | [address] | | | | | [place], [place] | [phone] | | | | | [address] | | | | | | [phone] | | | +--------+ + + + [...] on filedocumented as of this encounter Results C-REACTIVE PROTEIN (06/25/2019 8:15 AM PST) + +-------+ + + + | Component | Value | Ref Range | Performed | Pathologist | | | | | At | Signature | + +-------+ + + + | C-REACTIVE | 0.6 | 0.0 - 0.9 mg/dL | [facility] | | | PROTEIN | | | A MEDICAL | | | | | | CENTER | | + +-------+ + + + + + | Specimen | + + | Blood - Blood | | (substance) | + + + + + + + | Performing | Address | City/State/Zipcode | Phone Number | | Organization | | | | + + + + + | [facility] | And | [place] | [phone] | | MEDICAL CENTER | [facility] | [address] | | + + + + + SEDIMENTATION RATE (06/25/2019 8:15 AM PST) + +-------+ + + + | Component | Value | Ref Range | Performed | Pathologist | | | | | At | Signature | + +-------+ + + + | SEDIMENTATI | 14 | 0 - 20 mm/hr | [facility] | | | ON RATE | | | A MEDICAL | | | | | | CENTER | | + +-------+ + + + + + | Specimen | + + | Blood - Blood | | (substance) | + + + + + + + | Performing | Address | City/State/Zipcode | Phone Number | | Organization | | | | + + + + + | [facility] | [address] [place] | [place] | [phone] | | MEDICAL CENTER | [facility] | [address] | | + + + + + documented in this encounter Visit Diagnoses + + | Diagnosis | + + | Osteomyelitis of knee region (HCC) - Primary Unspecified osteomyelitis, lower leg | + + documented in this encounter"
--- OUTSIDE RECORDS SUMMARY | ~2020-03-08 | XMS | Encounter Summary ---
Demographics + + + | Address | [address] | | | [place] [address] | + + + | Home Phone | | + + + | Preferred Language | Unknown | + + + | Marital Status | Single | + + + | Episcopalian Affiliation | LUT | + + + | Race | White | + + + | Ethnic Group | Not or | + + + Author + + + | Author | [facility] | + + + | Organization | [facility] | + + + | Address | Unknown | + + + | Phone | Unavailable | + + + Support + + + + + | Name | Relationship | Address | Phone | + + + + + | Girsel Marc | ECON | [address] | | | | | [place] | | | | | [address] | | + + + + + Care Team Providers + +------+ + | Care Carbon Brush Maker Name | Role | Phone | [...] | +--------+ + + + + | 09/30/ | Telephone | Infectious | Brigid Hardy | Care Coordination | | 2012 | | [facility] | [place] | | | | | [address] | | | | | | [facility] | | | | | | [address], [address] floor | | | | | | [place], [place] | | | | | | [address] | | | | | | [phone] | | | +--------+ + + + [...]
--- OUTSIDE RECORDS SUMMARY | ~2020-03-08 | XMS | Encounter Summary ---
Demographics + + + | Address | [address] | | | [place] [address] | + + + | Home Phone | | + + + | Preferred Language | Unknown | + + + | Marital Status | Single | + + + | Roman Catholic Affiliation | LUT | + + + [...] + | Grisel Marc | ECON | [address] | | | | | [place] | | | | | [address] | | + + + + + Care Team Providers + +------+ + | Care Turner Splitter Machine Operator Name | Role | Phone | + +------+ + | Hina Peterson | PCP | | + +------+ + Encounter Details +--------+ + + + + | Date | Type | Department | Care Team | Description | +--------+ + + + + | 10/07/ | Hospital | [facility] | | | | 2019 | Encounter | Sports Medicine & | | | | | | Orthopaedic Surgery | | | | | | [address] | | | | | | [place] | | | | | | [address] | | | | | | [phone] | | | +--------+ + + + [...] + + + +---------+ + + | methocarbamoL 750 | Take 750 mg by | | 0 | 09/14/19 | | | mg oral tablet | mouth. | | | 19 | | + + + +---------+ + + | methylphenidate 10 | | | 0 | 09/28/19 | | | mg oral tablet | | | | 16 | | + + + +---------+ + + | methylphenidate | | | 0 | 08/16/19 | | | HCl 5 mg oral tablet | | | | 20 | | + + + +---------+ + + | naproxen 500 mg | | | 6 | 01/16/20 | | | oral tablet | | | | 16 | | + + + +---------+ + + | polyethylene | | | 11 | 01/22/20 | | | glycol 17 gram/dose | | | | 16 | | | oral powder | | | | | | + + + +---------+ + + documented as of this encounter Plan of Treatment Not on filedocumented as of this encounter Procedures + +--------+ + + + | Procedure Name | Priori | Date/Time | Associated Diagnosis | Comments | | | ty | | | | + +--------+ + + + | X-RAY KNEE 3 VIEWS | Routin | 10/07/2019 | Left knee pain, | Results for this | | LEFT | e | 10:43 AM | unspecified | procedure are in the | | | | PST | chronicity | results section. | + +--------+ + + + documented in this encounter Results X-RAY KNEE 3 VIEWS LEFT (10/07/2019 10:43 AM PST) + + | Specimen | + + | | + + + + + | Narrative | Performed At | + + + | [address] [place] [address] | [facility] | | [place] [address] | DEPARTMENT OF | | [phone] Name: SANDY MARC (SHARIF-EE-L) | RADIOLOGY | | Phys: MARLA FRIED : 1990 Sex: F | | | CSN: [id number] MR# [id number] Exam Date: | | | 10/07/2019 EXAM: X-RAY KNEE 3 VIEWS LEFT [id number] CLINICAL | | | HISTORY: Left knee pain. COMPARISON: 06/14/2019 left knee MRI. | | | TECHNIQUE: AP, lateral and sunrise views of the left knee were | | | obtained. FINDINGS: Bones: There is no acute fracture, abnormal | | | alignment or focal osseous destruction. A rim sclerotic bone | | | infarct is present in the proximal tibial metadiaphysis. Joints: | | | There is moderate medial and lateral femorotibial joint space | | | narrowing with subchondral sclerosis in the medial femorotibial joint | | | compartment and mild marginal spurring. No significant | | | suprapatellar joint effusion. Normal patellofemoral alignment. | | | Soft tissues: Normal. IMPRESSION: 1. 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 2. 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 REPORT SIGNED IN OTHER VENDOR SYSTEM | | | 10/08/2019 Reported by: HELENA BARRAZA MD Electronically | | | signed by: HELENA BARRAZA MD Transcribed Date/Time: 10/08/2019 | | | 13:44 Fuel Oil Truck Driver: FLUENCY | | + + + + + | Procedure Note | + + | Interface, Radiology Results - 10/08/2019 1:51 PM PST [address] | [address] [place] [address] | | Name: SANDY MARC (SHARIF-EE-L) Phys: MARLA FRIED : 1990 | | Sex: F CSN: [id number] MR# [id number] Exam Date: 10/07/2019 EXAM:X-RAY | | KNEE 3 VIEWS LEFT [id number] CLINICAL HISTORY:Left knee pain. COMPARISON:06/14/2019 left | | knee MRI. TECHNIQUE:AP, lateral and sunrise views of the left knee were obtained. | | FINDINGS:Bones: There is no acute fracture, abnormal alignment or focalosseous | | destruction. A rim sclerotic bone infarct is present in theproximal tibial | | metadiaphysis. Joints: There is moderate medial and lateral femorotibial joint | | spacenarrowing with subchondral sclerosis in the medial femorotibial jointcompartment | | and mild marginal spurring. No significant suprapatellarjoint effusion. Normal | | patellofemoral alignment. Soft tissues: Normal. IMPRESSION:1. Bone infarct in the | | proximal tibial metadiaphysis.2. Hzql-kt-tfgqlqpp medial femorotibial joint | | degeneration. REPORT SIGNED IN OTHER VENDOR SYSTEM 10/08/2019 Reported by: HELENA | | MD CHRISTI Electronically signed by: HELENA BARRAZA MD Transcribed Date/Time: | | 10/08/2019 13:44Transcriptionist: FLUENCY | |Left knee pain. | | | |COMPARISON: | |06/14/2019 left knee MRI. | | | |TECHNIQUE: | |AP, lateral and sunrise views of the left knee were obtained. | | | |FINDINGS: | |Bones: There is no acute fracture, abnormal alignment or focal | |osseous destruction. A rim sclerotic bone infarct is present in the | |proximal tibial metadiaphysis. | | | |Joints: There is moderate medial and lateral femorotibial joint space | |narrowing with subchondral sclerosis in the medial femorotibial joint | |compartment and mild marginal spurring. No significant suprapatellar | |joint effusion. Normal patellofemoral alignment. | | | |Soft tissues: Normal. | | | |IMPRESSION: | |1. 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 | |2. Uhtw-lt-tbvqlzbr medial femorotibial joint degeneration. | | | | | | REPORT SIGNED IN OTHER VENDOR SYSTEM 10/08/2019 | |Reported by: HELENA BARRAZA MD | | | |Electronically signed by: HELENA BARRAZA MD | | | |Transcribed Date/Time: 10/08/2019 13:44 | |Fuel Oil Truck Driver: FLUENCY | | | | | | | + + + +---------+ + + | Performing | Address | City/State/Zipcode | Phone Number | | Organization | | | | + +---------+ + + | [facility] | | | | | RADIOLOGY | | | | + +---------+ + + documented in this encounter Visit Diagnoses + + | Diagnosis | + + | Left knee pain, unspecified chronicity | + + documented in this encounter"
--- OUTSIDE RECORDS SUMMARY | ~2020-03-08 | XMS | Encounter Summary ---
Demographics + + + | Address | [address] | | | [place] [address] | + + + | Home Phone | | + + + | Preferred Language | Unknown | + + + | Marital Status | Single | + + + | Denominational Affiliation | LUT | + + + [...] [place] | | | | | [address] | | + + + + + Care Team Providers + +------+ + | Care Lens Blank Gauger Name | Role | Phone | + +------+ + | Adilia Bob | PCP | | + +------+ + Reason for Visit +--------+ + | Reason | Comments | +--------+ + | Preop | | +--------+ + Encounter Details +--------+---------+ + + + | Date | Type | Department | Care Team | Description | +--------+---------+ + + + | 08/25/ | Office | Orthopaedics at | Alton Hernandez MD | Other specified | | 2012 | Visit | [facility] [address] | | pre-operative | | | | [address] | | examination (Primary | | | | Mailcode: [id number] | | Dx); Pathologic | | | | [facility] | | fracture of tibia or | | | | [place], [place] | | fibula; | | | | [id number] | | Osteomyelitis of | | | | [phone] | | knee region (HCC); | | | | | | Septic 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| | | | | knee, left (HCC); | | | | | | AVN (avascular | | | | | | necrosis of bone) | | | | | | ([facility]) | +--------+---------+ + + + Social History [...] + + + | Blood Pressure | 124/69 | 08/25/2012 8:37 AM | | | | | PST | | + + + + + | Pulse | 87 | 08/25/2012 8:37 AM | | | | | PST | | + + + + + | Temperature | 36.2 C (97.1 F) | 08/25/2012 8:37 AM | | | | | PST | | + + + + + | Respiratory Rate | - | - | | + + + + + | Oxygen Saturation | - | - | | + + + + + | Inhaled Oxygen | - | - | | | Concentration | | | | + + + + + | Weight | 69.9 kg (154 lb) | 08/25/2012 8:37 AM | | | | | PST | | + + + + + | Height | 170.2 cm (5' 7") | 08/25/2012 8:37 AM | | | | | PST | | + + + + + | Body Mass Index | 24.12 | 08/25/2012 8:37 AM | | | | | PST | | + + + + + documented in this encounter Patient Instructions Patient Instructions Mirakinjaljanis Motaelenitimmy Liz - 08/19/2012 2:22 PM PST Registration Locations (please check in at one of the following registration desks prior to surgery) For surgeries scheduled to take place on the avoca at the [facility] [place]: Surgeries scheduled in the [facility] ([address] [place] [address]): registration is located on the 4th floor of [facility] (Day Surgery). Surgeries scheduled in the [facility]: registration is located on the 9th floor. Surgeries scheduled in [facility]: registration is located on the 6th floor. Surgeries scheduled in the [facility]: registration is located i n the [facility] on the first floor. For surgeries scheduled to take place at the [facility]: registration is l ocated on the 4th floor (Surgery Center). Important Information Due to the increased prevalence of pests in our community, we are asking patients to partne r with us to keep our hospital clean. If you have noticed bugs or other pests in your home, on your belongings or on your body, please contact your doctor's office prior to your admis jian. For your safety and protection, please limit what you bring to the hospital. All valuables should be left at home. This includes pillows, blankets, clothing, purses, wallets, money an d jewelry. Patients may not bring personal electronics into the hospital, including hairdry ers, electric nabil, radios and CD players. If you use specialized medical equipment at h [facility], please check with your provider before bringing it with you into the hospital. Registration Process for all Admissions/Surgeries 1. Please bring your insurance card(s) with you and be prepared to pay any co-payment, co-i nsurance or deposit that may be required. 2. Once you arrive at the registration desk, you will be interviewed by a Patient Access Se rvice Specialist (STANLEY). Demographics will be verified (example: name, date of , Social Security Number, address, insurance). 3. You will be asked to sign some paperwork: Terms and Conditions of Service, Notice of Anabela vacy Practices Acknowledgement and Genetic Testing Opt Out. 4. You will be given some paperwork: copies of any forms signed by you, Patient Rights, Res ponsibilities and Safety, Understanding Advance Directives, and Smoking Cessation Brochure.E lectronically signed by Liz Kent at 08/19/2012 2:22 PM PST documented in this encounter Progress Notes David Peter MD - 08/25/2012 9:35 AM PSTFormatting of this note might be different fr om the original. Sandy Marc returns for pre-operative visit today, and is seen in conjunction with Dr. Jovany almanzar from [place]. Her HPI is copied from her previous note from her visit on 08/06/12: "Sandy Marc is a 21 year old female who presents with concern for chronic osteomye litis of the left tibia after suffering a tibial plateau fracture in late November 2011. She re ports a very low mechanism of injury, in which she was riding a horse and felt severe pain i n the knee when she was kicking it. She says she thinks she blacked out at some point when t his was occurring. She had no falls or other trauma. She does report antecedent knee pain an d actually went to the doctor earlier that month, when x-rays were obtained and read as nega tive for fracture. She underwent arthroscopically assisted ORIF of the plateau fracture by Dr. Jerald Don in [place] on 12/10/11. Calcium phosphate cement was used to help buttress the fracture. He r bone was sent to pathology but was not found to be concerning for neoplasm but there were fragments of devitalized bone and hypocellular taylor marrow without inflammation. Her incisio n chronically drained after this, and she underwent several bedside I&D's and ultimately had left knee synovectomy and proximal tibial I&D and hardware removed on 04/14/[address] Efrain gautam. The calcium phosphate cement was not removed at that time. She has been intermittently on oral antibiotics during this time but never a prolonged course of IV antibiotics. We have r eports of intra-operative left leg cultures from 03/12/12 that grew staph aureus (resistant to penicillin only) and strep agalactiae group B (resistant to clindamycin and tetracycline) a nd left knee cultures from 01/01/12 that grew staph aureus (resistant to penicillin only). Following her surgery on 04/14/12, her wound healed completely for 2 months but then dehisced and started draining again last month. During this entire time, she has not had any systemi c complaints of fevers, chills, nausea/vomiting, etc. Today she localizes her pain directly over her tibial incision which is along the proximal anteromedial tibia, as well as just proximal to the knee. She has not been bearing full weig ht on the left leg for 1 month now. She wears a hinged knee brace whenever she is on her fee t." She has no new complaints at her visit today but indicates that her wound has continued to drain. She is not bearing full weight on her left leg. She denies recent fevers, chills, nig ht sweats, or other signs of systemic illness. She had an MRI of her left knee obtained yest erday, with contrast. Exam: Last Temp: 36.2 C (97.1 F) Pulse: 87 BP: 124/69 mmHg General- Awake & alert female; No acute distress; Alert & oriented to person/place/time; Ap propriate grooming & affect Left leg - moderate synovitic effusion of left knee. 4 cm anteromedial proximal tibial inci jian well-healed with exception of 3 mm open area in center of wound that has honey-crusted appearance but is not actively draining at the moment. Mildly warm to touch. Imaging - increased T2 signal along medial tibial plateau, and tract of calcium phosphate d eposition. Very mild T2 signal present in lateral femoral condyle, but improved since prior MRI on 07/01/12. Mild effusion of knee present. Official radiologist read is pending. XRAYS : I have reviewed the images and agree with the radiologist's report: STUDY: MRI KNEE LEFT W/WO CONTRAST 08/24/12 18:16:00 INDICATION: Concern for chronic osteomyelitis. History of tibial plateau fracture. TECHNIQUE: The following MR pulse sequences were obtained through the left knee: 1. Axial T1, fat-suppressed intermediate TE weighted FSE and fat-suppressed postcontrast T1. 2. Coronal T1. 3. Sagittal fat-suppressed intermediate TE weighted FSE and fat-suppressed postcontrast T1. Postcontrast images were obtained after administration 13 mm Omniscan IV. COMPARISON: 07/01/2012. FINDINGS: There are postsurgical changes compatible with open reduction internal fixation of a prior medial tibial plateau fracture. Micro-metallic artifact is also present within the anterior knee joint. Markedly T1 and T2 hypointense material within the proximal tibial metaphysis is present, compatible in appearance with bone cement, unchanged from the prior MRI. Obliquely oriented transverse screw tracks are present within the subchondral tibial plateau from prior fixation hardware. The screw tracks show T2 hyperintensity and enhancement, unchanged. Confluent T1 hypointense signal, mild diffuse T2 hyperintensity and enhancement within the medial tibial plateau extending distally into the proximal tibial metaphysis and surrounding the bone cement is similar in appearance to the prior study. No new area of marrow signal abnormality is seen. More focal and circumscribed area of decreased T1 signal within the medial tibial plateau subchondral marrow which extends anteriorly and is continuous with the larger area of medial tibial signal abnormality (see coronal T1 images 9-16, sagittal T2 images 13-17) is unchanged and may represent osteonecrosis. Diffuse periosteal enhancement along the proximal medial tibial metaphysis and pretibial fat subjacent to the patellar tendon is also similar to before. The distal end of the signal abnormality along the proximal tibia and anterior soft tissues is not included in the field of view. Distal femoral bone marrow signal has almost normalized, with only minimal T2 hyperintensity and enhancement within the lateral femoral condyle at the site of previously seen curvilinear subchondral T2 marrow hyperintensity and enhancement, most likely representing healing fracture. Distal femoral and fibular bone marrow signal intensity is otherwise normal. There is no knee joint effusion; only trace joint fluid is present. Diffuse synovial enhancement is substantially decreased from the prior exam. There is no new joint centered destruction or increased femoral bone marrow signal abnormality. No abscess or organized fluid collection is present within the soft tissues. While the study was not tailored for evaluation of internal derangement there is decreased definition of the distal aspect of the anterior cruciate ligament fibers near its tibial attachment possibly due to increased nonenhancing granulation tissue within the intracondylar notch or as a result of prior injury. The menisci are not fully assessed, but appear intact. Subchondral cortical irregularity and cartilage loss are present at the site of prior medial tibial plateau fracture. No other gross cartilage defect is identified. The no meniscal tear is definitely identified. The medial and lateral supporting structures are grossly intact. IMPRESSION: Postsurgical changes of open reduction internal fixation of a medial tibial plateau fracture with proximal tibial bone cement. Irregular proximal medial tibial bone marrow T2 signal abnormality and enhancement are stable, likely representing a combination of sequela from prior fracture and surgery with superimposed chronic/treated osteomyelitis. No evidence for progression is seen when compared to the prior study. There is no new osseous or joint centered destruction and no soft tissue abscess. Decreased left knee synovitis. Near complete resolution of previously seen curvilinear lateral femoral condyle bone marrow edema, most likely representing healing subchondral fracture. Attending Radiologists: Mikal Johnson M.D. Author: Geovanni Hinson M.D. A/P: We had a lengthy discussion including Dr. Peck and the patient regarding the high li kelihood that she has chronic osteomyelitis of the tibia, as well as possibly a septic arthr itis of the knee. Our plan would be to hold pre-op antibiotics and perform an aspiration of the knee for synovial fluid cultures in blood culture bottles, then an arthroscopic I&D of t he knee joint, obtaining synovial biopsies to send for pathology and culture and close and s eal the knee with ioban prior to a separate I&D (in the same operation) of the tibia to césar ve the residual calcium phosphate and any or devitalized bone tissue that is present, u sing fluoroscopic guidance. Multiple cultures and pathology will be sent from the tibial as well. Calcium sulfate with with Vancomycin and Tobramycin beads will be packed in the bone v oid. We will hold antibiotics prior to the operation and the plan will be to give Rocephin afterwards and send her home on this via PICC line as well, pending the results of her intra -operative cultures. She will be admitted post-op for PICC placement and pain and drain man agement. She will be nonweight bearing in her hinged knee brace for a minimum of [address]-op. A PARQ conference was held today with thorough discussion of the risks and benefits of this operation, and all questions were answered to the patient's and her mother's satisfaction. The consent form was signed. She has already been cleared by the [facility] clinic yesterday. Surge ry is scheduled for 09/02/12 and will proceed as planned. David Peter MD PGY-3, Orthopaedics ORTHOPAEDIC ATTENDING ADDENDUM: I have seen and evaluated the patient and repeated the segundo elements of the history and exam ination. I agree with the findings and the plan of care as documented in the resident s n ote which I have extensively edited for accuracy and completeness. Alton Hernandez M.D., M.Engr. General Orthopaedics, Trauma documented in this enc ounter Plan of Treatment Not on filedocumented as of this encounter Procedures + +--------+ + + + | Procedure Name | Priori | Date/Time | Associated Diagnosis | Comments | | | ty | | | | + +--------+ + + + | RADIOLOGY | | 08/25/2012 | | Results for this | | | | 12:00 AM | | procedure are in the | | | | PST | | results section. | + +--------+ + + + documented in this encounter Results RADIOLOGY (08/25/2012 12:00 AM PST) + + + | Narrative | Performed At | + + + | | | | | | + + + + + | Procedure Note | + + | He Layne - 09/01/2012 7:50 AM PST | + + documented in this encounter Visit Diagnoses + + | Diagnosis | + + | Other specified pre-operative examination - Primary | + + | Pathologic fracture of tibia or fibula Pathologic fracture of tibia and fibula | + + | Osteomyelitis of knee region (HCC) Unspecified osteomyelitis, lower leg | + + | Septic arthritis of knee, left (HCC) Pyogenic arthritis, lower leg | + + | AVN (avascular necrosis of bone) (HCC) Aseptic necrosis of bone, site unspecified | + + documented in this encounter
--- OUTSIDE RECORDS SUMMARY | ~2020-03-08 | XMS | Encounter Summary ---
Demographics + + + | Address | [address] | | | [place] [address] | + + + | Home Phone | | + + + | Preferred Language | Unknown | + + + | Marital Status | Single | + + + | Yazdanism Affiliation | LUT | + + + | Race | White | + + + | Ethnic Group | Not or | + + + Author + + + | Author | [facility] | + + + | Organization | [facility] | + + + | Address | Unknown | + + + | Phone | Unavailable | + + + Support + + + + + | Name | Relationship | Address | Phone | + + + + + | Grisel Marc | ECON | [address] | | | | | [place] | | | | | [address] | | + + + + + Care Team Providers + +------+ + | Care Demand Generation Manager Name | Role | Phone | + +------+ + | Adilia BobP | PCP | | + +------+ + Reason for Visit + + + | Reason | Comments | + + + | Postoperative visit | | + + + PROC - Inpatient Surgery (Routine) +--------+--------+ + + + + | Status | Reason | Specialty | Diagnoses / | Referred By | Referred To | | | | | Procedures | Contact | Contact | +--------+--------+ + + + + | Closed | | Orthopedics | Diagnoses | Lisbeth, | Mary, | | | | | | SAEED Viveros | MD Darrick | | | | | Osteomyeliti | Family | [address] | | | | | s of knee | Health | [facility] | | | | | region ([facility]) | Associates | [address], | | | | | AVN | [address] | [place] | | | | | (avascular | [address], [address] | [address] | | | | | necrosis of | [place], | | | | | | bone) ([facility]) | [place] [address] | | | | | | Pathologic | Phone: | | | | | | fracture of | [phone] | | | | | | tibia or | Fax: | | | | | | fibula | [phone] | | | | | | Septic | | | | | | | 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| | | | | | knee, left | | | | | | | ([facility]) | | | | | | | Procedures | | | | | | | REQUEST TO | | | | | | | SURGERY | | | | | | | SET UP MACHINIST | | | | | | | [place] PARTIAL | | | | | | | REMOVAL OF | | | | | | | TIBIA [place] | | | | | | | INSERTION | | | | | | | DRUG IMPLANT | | | | | | | DEVICE [place] | | | | | | | KNEE | | | | | | | SCOPE,SHAVE | | | | | | | ARTICULAR | | | | | | | CART [place] | | | | | | | KNEE | | | | | | | SCOPE,FULL | | | | | | | SYNOVECT | | | +--------+--------+ + + + + Encounter Details +--------+---------+ + + + | Date | Type | Department | Care Team | Description | +--------+---------+ + + + | 09/17/ | Office | Orthopaedics at | Darrick Buitrago MD | Osteomyelitis of | | 2013 | Visit | [facility] [address] | | knee region (HCC) | | | | [address] | | (Primary Dx); Septic | | | | Mailcode: [id number] | | arthritis of knee, | | | | [facility] | | left (HCC) | | | | [place], [place] | | | | | | [address] | | | | | | [phone] | | | +--------+---------+ + + + [...] + + + + | Temperature | 36.7 C (98 F) | 09/17/2012 2:08 PM | | | | | PST [...] Weight | 69.9 kg (154 lb) | 09/17/2012 2:08 PM | | | | | PST | | + + + + + | Height | 170.2 cm (5' 7") | 09/17/2012 2:08 PM | | | | | PST | | + + + + + | Body Mass Index | 24.12 | 09/17/2012 2:08 PM | | | | | PST | | + + + + + documented in this encounter Progress Notes Darrick Buitrago MD - 09/23/2012 10:48 AM PST Sandy Marc is a 21 y.o. female who has Pathologic fracture of tibia or fibula, Os teomyelitis of knee region, AVN (avascular necrosis of bone), Septic arthritis of knee, left , Asthma, and Encounter for long-term (current) use of antibiotics on her problem list. ~ 2 weeks ) status post left knee aspiration for culture, arthroscopy with partial media l meniscectomy and medial tibial plateau chondroplasty as well as I&D (including removal of retained CaPO4 bone cement and canal reaming) and placement of CaSO4 antibiotic beads into t he left tibia. She states that she is progressing well and is not taking any pain medications and is getti ng her IV Daptomycin under the supervision of Dr. Peck in ID whose PA is seeing her in cli danielle today with me. She has been compliant with non-weightbearing with a hinged knee brace a nd crutches. She has been following instructions and denies interval injury. Sandy denies fever, chills, numbness, tingling, weakness, chest pain or shortness of breat h. She has had mild to moderate serosanguinous drainage. Pain Meds: No medications of specified category on file She has not yet returned to work. PHYSICAL EXAM: Patient is alert and oriented times three in no apparent distress. Temp (Src) 36.7 C (98 F) (Oral) | Ht 1.702 m (5' 7") | Wt 69.854 kg (154 lb) | BMI 24.1 2 kg/(m^2) Patient reports a pain level of 3 today. Knee Range of Motion: Flexion Left 5-95* * = painful Incision clean and intact with mild serosanguinous drainage from the central 1/3rd. No supriya thema, cellulitis or lymphangitis. Sensation intact to light touch medial, lateral, plantar, dorsal and 1st web space. Fires ankle dorsiflexors, plantarflexors, quads & hamstrings. Left leg pink and warm with 2 seconds capillary refill. X-RAYS: Intra and post op 'scope and X-rays images were reviewed with the patient and famil y. LABS: Lab Results Component Value Date ESR 40 09/14/2012 ESR 61 09/07/2012 CRP 3.2 09/14/2012 CRP 18.8 09/07/2012 WBC 9 09/14/2012 WBC 8.4 09/07/2012 NEUTROPHILCO 4.7 09/14/2012 NEUTROPHILCO 4.6 09/07/2012 NEUTROPERC 52.3 09/14/2012 NEUTROPERC 54.9 09/07/2012 CULTURE RESULT (no units) Date Value Range Status 09/02/2012 Final Value: C Tissue Source: Tissue Final GRAM STAIN: No squamous epithelial cells No PMNS No organisms seen. CULTURE RESULT: Rare Coagulase negative Staphylococcus species No Propionibacterium isolated No anaerobic organisms isolated. ORGANISM:..............Coagulase negative Staphylococcus species Cefazolin S Clindamycin S Erythroycin S Oxacillin S Trimethoprim/Sulfa S Tetracycline S Vancomycin S 09/02/2012 Preliminary Value: C AFB Source: Tissue SMEAR: AFB not detected source: left sinovium, left knee superior patellar pouch 09/02/2012 Preliminary Value: C Fungus, Other Source: Tissue Prelim SMEAR: No fungal elements seen CULTURE RESULT: No fungus isolated at 1 week. 09/02/2012 Final Value: C Tissue Source: Tissue Final GRAM STAIN: No squamous epithelial cells No PMNS No organisms seen. CULTURE RESULT: Rare Micrococcus species No Propionibacterium isolated No anaerobic organisms isolated. 09/02/2012 Preliminary Value: C AFB Source: Tissue SMEAR: AFB not detected source: 2) left anterior horn, medial meniscus tear 09/02/2012 Preliminary Value: C Fungus, Other Source: Tissue Prelim SMEAR: No fungal elements seen CULTURE RESULT: No fungus isolated at 1 week. 09/02/2012 Final Value: C Tissue Source: Tissue Final GRAM STAIN: No squamous epithelial cells Rare PMNS No organisms seen. CULTURE RESULT: Rare Staphylococcus aureus 1+ Coagulase negative Staphylococcus species No Propionibacterium isolated No anaerobic organisms isolated. ORGANISM:..............Staphylococcus aureus Cefazolin S Clindamycin S Erythroycin S Oxacillin S Penicillin R Trimethoprim/Sulfa S Tetracycline S Vancomycin S ORGANISM:..............Coagulase negative Staphylococcus species Cefazolin R Clindamycin R Erythroycin R Oxacillin R Trimethoprim/Sulfa S Tetracycline S Vancomycin S 09/02/2012 Preliminary Value: C AFB Source: Sputum SMEAR: AFB not detected source: 3) left sinus tract, left proximal tibia 09/02/2012 Preliminary Value: C Fungus, Other Source: Tissue Prelim SMEAR: No fungal elements seen CULTURE RESULT: No fungus isolated at 1 week. 09/02/2012 Final Value: C Tissue Source: Tissue Final GRAM STAIN: No squamous epithelial cells No PMNS Rare Gram positive cocci . CULTURE RESULT: Rare Staphylococcus aureus 3+ Corynebacterium species not C. jeikeium Presumptive identification Refer to culture collected 09/02/12 at 16:30 site #6 for complete identification 3+ Coagulase negative Staphylococcus species No Propionibacterium isolated No anaerobic organisms isolated. ORGANISM:..............Staphylococcus aureus Cefazolin S Clindamycin S Erythroycin S Oxacillin S Penicillin R Trimethoprim/Sulfa S Tetracycline S Vancomycin S ORGANISM:..............Coagulase negative Staphylococcus species Cefazolin R Clindamycin R Erythroycin R Oxacillin R Trimethoprim/Sulfa S Tetracycline S Vancomycin S 09/02/2012 Final Value: C AFB Source: Tissue Final SMEAR: AFB not detected source: left retained calcium left tibia #4 CULTURE RESULT: Specimen heavily contaminated. Culture discontinued. 09/02/2012 Preliminary Value: C Fungus, Other Source: Tissue Prelim SMEAR: No fungal elements seen CULTURE RESULT: No fungus isolated at 1 week. 09/02/2012 Final Value: C Tissue Source: Tissue Final GRAM STAIN: No squamous epithelial cells Rare PMNS Rare Gram positive cocci . CULTURE RESULT: Rare Staphylococcus aureus 2+ Coagulase negative Staphylococcus species 3+ Corynebacterium species not C. [email or web address] Presumptive identification Refer to culture collected 09/02/12 at 16:30 site #6 for complete identification No Propionibacterium isolated No anaerobic organisms isolated. ORGANISM:..............Staphylococcus aureus Cefazolin S Clindamycin S Erythroycin S Oxacillin S Penicillin R Trimethoprim/Sulfa S Tetracycline S Vancomycin S ORGANISM:..............Coagulase negative Staphylococcus species Cefazolin R Clindamycin R Erythroycin R Oxacillin R Trimethoprim/Sulfa S Tetracycline S Vancomycin S 09/02/2012 Final Value: C AFB Source: Tissue Final SMEAR: AFB not detected source: left retained calcium left tibia #5 CULTURE RESULT: Specimen heavily contaminated. Culture discontinued. 09/02/2012 Preliminary Value: C Fungus, Other Source: Tissue Prelim SMEAR: No fungal elements seen CULTURE RESULT: No fungus isolated at 1 week. 09/02/2012 Final Value: C Tissue Source: Tissue Final GRAM STAIN: No squamous epithelial cells Rare PMNS No organisms seen. CULTURE RESULT: Organism(s) isolated from broth media only Staphylococcus aureus 1+ Corynebacterium species not C. jeikeium 1+ Coagulase negative Staphylococcus species No Propionibacterium isolated No anaerobic organisms isolated. ORGANISM:..............Staphylococcus aureus Cefazolin S Clindamycin S Erythroycin S Oxacillin S Penicillin R Trimethoprim/Sulfa S Tetracycline S Vancomycin S ORGANISM:..............Coagulase negative Staphylococcus species Cefazolin R Clindamycin R Erythroycin R Oxacillin R Trimethoprim/Sulfa S Tetracycline S Vancomycin S 09/02/2012 Final Value: C AFB Source: Tissue Final SMEAR: AFB not detected source: left retained calcium left tibia #6 CULTURE RESULT: Specimen heavily contaminated. Culture discontinued. 09/02/2012 Preliminary Value: C Fungus, Other Source: Tissue Prelim SMEAR: No fungal elements seen CULTURE RESULT: No fungus isolated at 1 week. 09/02/2012 Final Value: C Tissue Source: Tissue Final GRAM STAIN: No squamous epithelial cells Rare PMNS No organisms seen. CULTURE RESULT: Organism(s) isolated from broth media only Staphylococcus aureus Rare Corynebacterium species not C. jeikeium Presumptive identification Refer to culture collected 09/02/12 at 16:30 site #6 for complete identification Rare Coagulase negative Staphylococcus species No Propionibacterium isolated No anaerobic organisms isolated. ORGANISM:..............Staphylococcus aureus Cefazolin S Clindamycin S Erythroycin S Oxacillin S Penicillin R Trimethoprim/Sulfa S Tetracycline S Vancomycin S ORGANISM:..............Coagulase negative Staphylococcus species Cefazolin R Clindamycin R Erythroycin R Oxacillin R Trimethoprim/Sulfa S Tetracycline S Vancomycin S 09/02/2012 Preliminary Value: C AFB Source: Tissue SMEAR: AFB not detected source: left retained calcium left tibia #7 09/02/2012 Preliminary Value: C Fungus, Other Source: Tissue Prelim SMEAR: No fungal elements seen CULTURE RESULT: No fungus isolated at 1 week. 09/02/2012 Final Value: C Tissue Source: Tissue Final GRAM STAIN: No squamous epithelial cells No PMNS No organisms seen. CULTURE RESULT: Rare Corynebacterium species not C. jeikeium Presumptive identification Refer to culture collected 09/02/12 at 16:30 site #6 for complete identification Rare Coagulase negative Staphylococcus species 1+ Peptostreptococcus species No Propionibacterium isolated ORGANISM:..............Coagulase negative Staphylococcus species Cefazolin R Clindamycin R Erythroycin R Oxacillin R Trimethoprim/Sulfa S Tetracycline S Vancomycin S 09/02/2012 Preliminary Value: C AFB Source: Tissue SMEAR: AFB not detected source: left retained calcium left tibia #8 09/02/2012 Preliminary Value: C Fungus, Other Source: Tissue Prelim SMEAR: No fungal elements seen CULTURE RESULT: No fungus isolated at 1 week. 09/02/2012 Final Value: C Tissue Source: Tissue Final GRAM STAIN: No squamous epithelial cells No PMNS No organisms seen. CULTURE RESULT: Rare Corynebacterium species not C. jeikeium Presumptive identification Refer to culture collected 09/02/12 at 16:30 site 6 for complete identification No Propionibacterium isolated No anaerobic organisms isolated. 09/02/2012 Preliminary Value: C Fungus, Other Source: Tissue Prelim SMEAR: No fungal elements seen CULTURE RESULT: No fungus isolated at 1 week. 09/02/2012 Preliminary Value: C AFB Source: Tissue SMEAR: AFB not detected source: left retained calcium left tibia #9 09/02/2012 Final Value: C Tissue Source: Tissue Final GRAM STAIN: No squamous epithelial cells No PMNS No organisms seen. CULTURE RESULT: No growth to date Culture examined daily Report will be updated if growth occurs No Propionibacterium isolated No anaerobic organisms isolated. 09/02/2012 Preliminary Value: C AFB Source: Tissue SMEAR: AFB not detected source: 10) left medullary canal, left tibia 09/02/2012 Preliminary Value: C Fungus, Other Source: Tissue Prelim SMEAR: No fungal elements seen CULTURE RESULT: No fungus isolated at 1 week. 09/02/2012 Final Value: C Body Fluid Source: Body Fl Final CULTURE RESULT: No growth SURGICAL PATHOLOGY: SOURCE OF SPECIMEN:A Synovium left knee, superior patellar pouch FS SOURCE OF SPECIMEN:B Specimen not rec'd in Surg. Path. Sent to other Lab for processing. SOURCE OF SPECIMEN:C Anterior horn medial meniscus tear Final Pathologic Diagnosis: A. Left knee synovium, superior patellar pouch, frozen section biopsy: - Dense fibroconnective tissue with no diagnostic abnormality - Negative for malignancy B. Specimen not received in surgical pathology C. Anterior horn medial meniscus tear, biopsy: - Synovium and fibroconnective tissue with no diagnostic abnormality - Negative for dysplasia Case seen by: Adriana Maciel M.D./Surgical Pathology Fellow Ameya Steiner MD/Staff Pathologist Intraoperative Consult (Frozen Section) Diagnosis: Synovium left knee superior patellar pouch (specimen A): - Negative for acute inflammation Intraoperative Consult Diagnosis confirmed by: Kaushik Duong ([facility]) and Khushi Romero M.D./Pathologist ASSESSMENT: Doing well status post tatus post left knee aspiration for culture, arthroscopy with partial medial meniscectomy and medial tibial plateau chondroplasty as well as I&D (in cluding removal of retained CaPO4 bone cement and canal reaming) and placement of CaSO4 anti biotic beads into the left tibia for polymicrobial (MSSA, MSRE, MRSE and Cornybacterium) ost eomyelitis and possible septic arthritis (micrococcus) left knee. PLAN: Sutures removed. Return in about 4 weeks (around 10/15/2012). with AP and Lateral x-ray s of the left tibia. I expect this wound to drain due to the presence of the CaSO4 but woul d like the patient to call if drainage worsens. Start PT touch down weight bearing with the unlocked knee brace optional to work especially on knee range of motion but also strengthen ing and gait training. She will continue Daptomycin under the supervision of Dr. Peck and the ID team who will monitor her labs and see her in ~ 2 weeks (see their separate note for details). DARRICK BUITRAGO MD [facility] [address] [place] [address] Mailcode: [id number] [place] [id number] Basia Vivar MA - 02/2013 3:15 PM PSTSpent approximately 10 minutes prepping with chloraprep and removing sut ures from LLE documented in this encounter Plan of Treatment Not on filedocumented as of this encounter Procedures + +--------+ + + + | Procedure Name | Priori | Date/Time | Associated Diagnosis | Comments | | | ty | | | | + +--------+ + + + | LAB REPORTS | | 09/17/2012 | | Results for this | | | | 12:00 AM | | procedure are in the | | | | PST | | results section. | + +--------+ + + + documented in this encounter Results LAB REPORTS (09/17/2012 12:00 AM PST) + + + | Narrative | Performed At | + + + | | | | | | + + + + + | Procedure Note | + + | He Layne - 09/23/2012 11:22 AM PST | + + documented in this encounter Visit Diagnoses + + | Diagnosis | + + | Osteomyelitis of knee region (HCC) - Primary Unspecified osteomyelitis, lower leg | + + | Septic arthritis of knee, left (HCC) Pyogenic arthritis, lower leg | + + documented in this encounter
--- OUTSIDE RECORDS SUMMARY | ~2020-03-08 | XMS | Encounter Summary ---
Demographics + + + | Address | [address] | | | [place] [address] | + + + | Home Phone | | + + + | Preferred Language | Unknown | + + + | Marital Status | Single | + + + | Faith Affiliation | LUT | + + + | Race | White | + + + | Ethnic Group | Not or | + + + Author + + + | Author | [facility] | + + + | Organization | [facility] | + + + | Address | Unknown | + + + | Phone | Unavailable | + + + Support + + + + + | Name | Relationship | Address | Phone | + + + + + | Grisel Marc | ECON | [address] | | | | | [place] | | | | | [address] | | + + + + + Care Team Providers + +------+ + | Care Corn Detasseler Machine Operator Name | Role | Phone | + +------+ + | Adilia BobP | PCP | | + +------+ + Reason for Visit + + + | Reason | Comments | + + + | Follow-up visit | | + + + Office Visit - E/M Services (Routine) +--------+--------+ + + + + | Status | Reason | Specialty | Diagnoses / | Referred By | Referred To | | | | | Procedures | Contact | Contact | +--------+--------+ + + + + | Closed | | Orthopedics | Diagnoses | Arian, | Mary, | | | | | I&Anirudh left | Mars Lopez MD | MD Darrick | | | | | knee | [address] | [address] | | | | | synovectomy | Street | [facility] | | | | | | [address] | [address] [place], | | | | | | [place], | [place] | | | | | | [place] [address] | [address] | | | | | | Phone: | | | | | | | [phone] | | | | | | | Fax: | | | | | | | [phone] | | +--------+--------+ + + + + Encounter Details +--------+---------+ + + + | Date | Type | Department | Care Team | Description | +--------+---------+ + + + | 03/11/ | Office | Orthopaedics at | Darrick Buitrago MD | Osteomyelitis of | | 2012 | Visit | [facility] [address] | | knee region (HCC) | | | | [address] | | (Primary Dx) | | | | Mailcode: [id number] | | | | | | [place] | | | | | | [place], [place] | | | | | | [address] | | | | | | [phone] | | | +--------+---------+ + + + [...] + + + | Blood Pressure | 122/69 | 03/11/2013 1:25 PM | | | | | PDT | | + + + + + | Pulse | 80 | 03/11/2013 1:25 PM | | | | | PDT [...] + + + + | Weight | 70.8 kg (156 lb) | 03/11/2013 1:25 PM | | | | | PDT | | + + + + + | Height | 170.2 cm (5' 7") | 03/11/2013 1:25 PM | | | | | PDT | | + + + + + | Body Mass Index | 24.43 | 03/11/2013 1:25 PM | | | | | PDT | | + + + + + documented in this encounter Progress Notes Darrick Buitrago MD - 04/12/2013 1:38 PM PDT Sandy Marc is a 22 y.o. female who has Pathologic fracture of tibia or fibula, Os teomyelitis of knee region, AVN (avascular necrosis of bone), Septic arthritis of knee, left , Asthma, and Encounter for long-term (current) use of antibiotics on her problem list. ~ 6. 3 months (09/02/12) status post left knee aspiration for culture, arthroscopy with partial me dial meniscectomy and medial tibial plateau chondroplasty as well as I&D (including removal of retained CaPO4 bone cement and canal reaming) and placement of CaSO4 antibiotic beads int o the left tibia. She called ~ 1 month ago with increased knee pain and was concerned that there may be an in fection returning. Consideration was given to obtaining an MRI with contrast or a knee aspi ration in [facility] but she elcted to come here for the aspiration and so this joint ap pointment with Dr. Peck from [place] was scheduled. Fortunately the knee stopped hurting 3 wee ks ago and she denies pain with weight bearing even before she fell from a horse on [place] [address] t. There was no fracture and she was treated with chiropractic manipulation. She is off a ntibiotics x 2 months and has a new boyfriend. Sandy denies fever, chills, weakness, chest pain, shortness of breath or drainage since he r last visit. Current Outpatient Prescriptions on File Prior to Visit Medication Sig Dispense Refill albuterol 90 mcg/actuation Inhalation HFA Aerosol Inhaler Inhale 1-2 Puffs every four h ours as needed. levonorgestrel (MIRENA) 20 mcg/24 hr Intrauterine IUD 1 Each by Intrauterine route once . May be removed and replaced with a new unit at anytime during menstrual cycle; do not leav e any one system in place for > 5 years. No current facility-administered medications on file prior to visit. Pain Meds: No medications of specified category on file She is not taking any medications f or pain. She has returned to work. PHYSICAL EXAM: Patient is alert and oriented times three in no apparent distress. BP 122/69 | Pulse 80 | Ht 1.702 m (5' 7") | Wt 70.761 kg (156 lb) | BMI 24.43 kg/(m^2) Patient reports a pain level of 0 today. Knee Range of Motion: Flexion Left 5-135 Not painful Straight leg test negative. Able to bear weight on left leg without pain. Not tender at ad herent scar which is well healed without drainage. No erythema, cellulitis or lymphangitis. Sensation intact to light touch medial, lateral, plantar, dorsal and 1st web space of left leg, but decreased sensation of the lateral leg. Fires left ankle dorsiflexors, plantarfle xors, quads & hamstrings. Left leg pink and warm with 2 seconds capillary refill. Palpable dorsalis pedis and bench press operator ior tibial pulses. X-RAYS: Reviewed x-rays with patient and family. Shows antibiotic beads resorbed in the ti ibis, with progressive new intraosseous bone growth. No new acute fractures or lytic lesions . No change in mild medial joint space loss. LABS: Lab Results Component Value Date ESR 25 09/21/2012 ESR 40 09/14/2012 ESR 61 09/07/2012 Lab Results Component Value Date CRP 3.7 09/21/2012 CRP 3.2 09/14/2012 CRP 18.8 09/07/2012 Cultures: See chart for complete culture results CULTURE RESULT (no units) Date Value Range [...] 09/02/2012 Preliminary Value: C AFB Source: Tissue CULTURE RESULT: Rare Staphylococcus aureus 1+ Coagulase negative Staphylococcus species No Propionibacterium isolated No anaerobic organisms isolated. ORGANISM:..............Staphylococcus aureus Cefazolin S Clindamycin S Erythroycin S Oxacillin S Penicillin R Trimethoprim/Sulfa S Tetracycline S Vancomycin S ORGANISM:..............Coagulase negative Staphylococcus species Cefazolin R Clindamycin R Erythroycin R Oxacillin R Trimethoprim/Sulfa S Tetracycline S Vancomycin S 09/02/2012 Preliminary Value: C AFB Source: Sputum ASSESSMENT: Clinically and radiographically doing well status post tatus post left knee asp iration for culture, arthroscopy with partial medial meniscectomy and medial tibial plateau chondroplasty as well as I&D (including removal of retained CaPO4 bone cement and canal ream ing) and placement of CaSO4 antibiotic beads into the left tibia for polymicrobial (MSSA, MS RE, MRSE and Cornybacterium) osteomyelitis and possible septic arthritis (micrococcus) left knee. Resolved secondary quadriceps, Achilles and posterior tibial tendonitis. PLAN: Return if symptoms worsen or fail to improve. with weight bearing 4 view left knee x -rays as well as repeat AP & lateral left tibia x-rays. OK to advance weight bearing, titra te activities as tolerated by tendonitis symptoms. Continue working with physical therapy to increase joint range of motion. Continue taking vitamin D and calcium supplement for lif e. She may be resume horseback riding when she is full weight bearing without pain. Call mari massey with further questions or concerns. I discussed her case with Dr. Peck - please see her note from today for additional details. DARRICK BUITRAGO MD [facility] [address] [place] [address] Mailcode: [id number] [place] [address] documented in this en counter Plan of Treatment Not on filedocumented as of this encounter Visit Diagnoses + + | Diagnosis | + + | Osteomyelitis of knee region (HCC) - Primary Unspecified osteomyelitis, lower leg | + + documented in this encounter
--- OUTSIDE RECORDS SUMMARY | ~2020-03-08 | XMS | Clinical Summary ---
Demographics + + + | Address | [address] | | | [place] [address] | + + + | Home Phone | | + + + | Preferred Language | Unknown | + + + | Marital Status | Single | + + + | Moravian Affiliation | LUT | + + + [...] [place] | | | | | [address] | | + + + + + Care Team Providers + +------+ + | Care Grain Mill Worker Name | Role | Phone | + +------+ + | Mark Glynn DO | PCP | | + +------+ + Source Comments FLIP is fully live on both EpicCare Ambulatory and EpicCare InPatient.Formerly [facility], [facility] Allergies + + + + + + [...] glycol 17 gram/dose | | | | 20 | | e | | oral powder | | | | 16 | | | + + + +---------+------+------+-------+ | methylphenidate | | | 0 | 01/0 | | Activ | | HCl 5 mg oral tablet | | | | 6/20 | | e | | | | | | 20 | | | + + + +---------+------+------+-------+ | methocarbamoL 750 | Take 750 mg by | | 0 | 02/0 | | Activ | | mg oral tablet | mouth. | | | 11/28 | | e | | | | | | 19 | | | + + + +---------+------+------+-------+ | diclofenac sodium | Take 1 tablet by | 60 | 1 | 04/3 | | Activ | | EC 75 mg oral | mouth twice daily as | tablet | | 0/20 | | e | | tablet,delayed | needed. Take with | | | 20 | | | | release | food. 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 Recommended referral to [facility] | | (10/22/2013 note) | + [...] | +--------+ + + + + | 01/12/ | Telephone | Orthopedicmelecio | Bambi Fried | Referral | | 2019 | | | [facility] | | +--------+ + + + + | 01/11/ | Telephone | Orthopedicmelecio | Bambi Fried | Referral Needed | | 2019 | | | [facility] | | +--------+ + + + + | 01/10/ | Document-Sc | Orthopedics | Cami Blue, | | | 2019 | annwally | | [facility] | | +--------+ + + + + | 01/10/ | Telephone | Orthopedicmelecio | Bambi Fried | Referral | | 2019 | | | L, PA-C | | +--------+ + + + + | 01/04/ | Office | Orthopedics | Bambi Fried | Pain in left tibia | | 2019 | Visit | | [facility] | (Primary Dx); | | | | | | Rupture of anterior | | | | | | cruciate ligament of | | | | | | left knee, | | | | | | subsequent | | | | | | encounter; Articular | | | | | | cartilage disorder; | | | | | | 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; Left knee | | | | | | pain, unspecified | | | | | | chronicity | +--------+ + + + + | 01/04/ | Travel | | | | | 2019 | | | | | +--------+ + + + + | 12/21/ | Hospital | Radiology | | | | 2019 | Encounter | | | | +--------+ + + + + | 12/21/ | Office | Orthopedics | Bambi Fried | Pain in left tibia | | 2019 | Visit | | [facility] Johnson | (Primary Dx); | | | | | | Rupture of anterior | | | | | | cruciate ligament of | | | | | | left knee, | | | | | | subsequent | | | | | | encounter; Articular | | | | | | cartilage disorder; | | | | | | 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; | | | | | | Osteomyelitis of | | | | | | knee region (HCC) | +--------+ + + + + | 12/21/ | Travel | | | | | 2020 | | | | | +--------+ + + + + | 12/16/ | Document-Sc | Orthopedics | Bambi Fried | | | 2019 | anned | | [facility] | | +--------+ + + + + | 12/16/ | Telephone | Orthopedics | Tong Saba, | ED Visit Follow-up; | | 2019 | | | MD | Care Coordination | +--------+ + + + + | 12/08/ | Office | Orthopedics | Bambi Fried | Rupture of anterior | | 2019 | Visit | | [facility] | cruciate ligament of | | | | | | left knee, | | | | | | subsequent encounter | | | | | | (Primary Dx); | | | | | | Articular cartilage | | | | | | disorder; | | | | [...] | +--------+ + + + + | 12/08/ | Travel | | | | | [...] Weight | 89.8 kg (198 lb) | 12/22/2019 11:00 AM | | | | | PDT | | + + + + + | Height | 170.2 cm (5' 7") | 12/22/2019 11:00 AM | | | | | PDT | | + + + + + | Body Mass Index | 31.01 | 12/22/2019 11:00 AM | | | | | PDT [...] (Flu) | | | | | vaccination (Season | 0 | | | | Ended) | | | | + + + [...] / Lot | + +------+--------+ +--------+--------+--------+ | Stimulan Kit 10ccImplanted: | | Left: | | | 10/31/ | 600-01 | | Qty: 1 on 09/02/2012 by | | Lower | | | 2013 | 0 / | | Alton Hernandez MD at [facility] | | Leg | | | | [...] X-RAY TIBIA & FIBULA | Routin | 12/22/2019 | Pain in left tibia | Results for this | | 2 VIEWS LT | e | 11:37 AM | | procedure are in the | | | | PDT | | results section. | + +--------+ + + + from Last 3 Months Results X-RAY TIBIA & FIBULA 2 VIEWS LT (12/22/2019 11:37 AM PDT) + + | Specimen | + + | | + + + + + | Narrative | Performed At | + + + | [address] [place] [address] | [facility] | | [place] [address] | DEPARTMENT OF | | [phone] Name: SANDY MARC (DINORA-EE-L) | RADIOLOGY | | Phys: BAMBI FRIED : 1990 Sex: F | | | CSN: [id number] MR# [id number] Exam Date: | | | 12/22/2019 EXAM: X-RAY TIBIA & FIBULA 2 VIEWS LT CLINICAL | | | HISTORY: Pain COMPARISON: 10/07/2019 left knee radiographs. | | | 06/14/2019 left knee MRI. TECHNIQUE: AP and lateral views of | | | the left tibia and fibula were obtained. FINDINGS: Bones: There | | | is sclerosis about both medial and lateral tibial plateau, from | | | healed fractures. A bone infarct is redemonstrated within the | | | proximal tibial metadiaphysis. There is no acute fracture, focal | | | osseous destruction or abnormal alignment. Joints: Mild medial and | | | lateral femorotibial joint space narrowing and mild marginal | | | spurring. Normal tibiotalar joint. Soft tissues: Normal. | | | IMPRESSION: Healed medial and lateral tibial plateau fractures. 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 No acute bony | | | abnormality. REPORT SIGNED IN OTHER VENDOR SYSTEM 12/22/2019 | | | Reported by: HELENA BARRAZA MD Electronically signed by: | | | HELENA BARRAZA MD Transcribed Date/Time: 12/22/2019 14:02 | | | Knurling Machine Tender: YORDY | | + + + + + | Procedure Note | + + | Interface, Radiology Results - 12/22/2019 2:06 PM PDT [address] | [place] [address] | | Name: SANDY MARC (DINORA-EE-L) Phys: BAMBI FRIED DOB: 1990 | | Sex: F CSN: [id number] MR# [id number] Exam Date: 12/22/2019 EXAM:X-RAY | | TIBIA & FIBULA 2 VIEWS LT CLINICAL HISTORY:Pain COMPARISON:10/07/2019 left knee | | radiographs. 06/14/2019 left knee MRI. TECHNIQUE:AP and lateral views of the left tibia | | and fibula were obtained. FINDINGS:Bones: There is sclerosis about both medial and | | lateral tibialplateau, from healed fractures. A bone infarct is redemonstratedwithin | | the proximal tibial metadiaphysis. There is no acutefracture, focal osseous destruction | | or abnormal alignment. Joints: Mild medial and lateral femorotibial joint space | | narrowingand mild marginal spurring. Normal tibiotalar joint. Soft tissues: Normal. | | IMPRESSION:Healed medial and lateral tibial plateau fractures. Bone infarct inthe | | proximal tibial metadiaphysis. No acute bony abnormality. REPORT SIGNED IN OTHER | | VENDOR SYSTEM 12/22/2019 Reported by: HELENA BARRAZA MD Electronically signed by: | | HELENA BARRAZA MD Transcribed Date/Time: 12/22/2019 14:02Transcriptionist: FLUENCY | |CLINICAL HISTORY: | |Pain | | | |COMPARISON: | |10/07/2019 left knee radiographs. 06/14/2019 left knee MRI. | | | |TECHNIQUE: | |AP and lateral views of the left tibia and fibula were obtained. | | | |FINDINGS: | |Bones: There is sclerosis about both medial and lateral tibial | |plateau, from healed fractures. A bone infarct is redemonstrated | |within the proximal tibial metadiaphysis. There is no acute | |fracture, focal osseous destruction or abnormal alignment. | | | |Joints: Mild medial and lateral femorotibial joint space narrowing | |and mild marginal spurring. Normal tibiotalar joint. | | | |Soft tissues: Normal. | | | |IMPRESSION: | |Healed medial and lateral tibial plateau fractures. Bone infarct in | |the proximal tibial metadiaphysis. No acute bony abnormality. | | | | | | REPORT SIGNED IN OTHER VENDOR SYSTEM 12/22/2019 | |Reported by: HELENA BARRAZA MD | | | |Electronically signed by: HELENA BARRAZA MD | | | |Transcribed Date/Time: 12/22/2019 14:02 | |Knurling Machine Tender: FLUENCY | | | | | | [...] | | | + +--------+ +--------+-------+---------+--------+ | LOAN EXPEDITOR MEDICAID | LOAN EXPEDITOR | xxxxxxxx | Effect | | | Medica | | | EASTER | | cindi | | | id | | | [place] | | for | | | | | | | | all | | | | | | | | dates | | | | + +--------+ +--------+-------+---------+--------+ | LOAN EXPEDITOR MEDICAID | LOAN EXPEDITOR | xxxxxxxx | 08/11/19 | | | [...] | [address] | | ([place]) Alexa | al/Fam | | 1990 | [phone] | [place] [address] | | | nayla | | | 2 (Home) | | + +--------+ +--------+ + + | Sandy Marc | Person | Self | | | [address] | | (Dinora-ee-l) Alexa | al/Fam | | 1990 | [phone] | [place] [address] | | | nayla | | | [...]
--- OUTSIDE RECORDS SUMMARY | ~2020-03-08 | XMS | Encounter Summary ---
Demographics + + + | Address | [address] | | | [place] [address] | + + + | Home Phone | | + + + | Preferred Language | Unknown | + + + | Marital Status | Single | + + + | Sabianism Affiliation | LUT | + + + | Race | White | + + + | Ethnic Group | Not or | + + + Author + + + | Author | [facility] | + + + | Organization | [facility] | + + + | Address | Unknown | + + + | Phone | Unavailable | + + + Support + + + + + | Name | Relationship | Address | Phone | + + + + + | Grisel Marc | ECON | [address] | | | | | [place] | | | | | [address] | | + + + + + Care Team Providers + +------+ + | Care Paper Maker Name | Role | Phone | [...] [facility] | | | | | | [address] | | | | | | [address] | | | | | | [place], [facility] | | | | | | [place], [place] | | | | | | [address] | | | | | | [phone] | | | +--------+ + + + [...]
--- OUTSIDE RECORDS SUMMARY | ~2020-03-08 | XMS | Encounter Summary ---
Demographics + + + | Address | [address] | | | [place] [address] | + + + | Home Phone | | + + + | Preferred Language | Unknown | + + + | Marital Status | Single | + + + | Restorationism Affiliation | LUT | + + + | Race | White | + + + | Ethnic Group | Not or | + + + Author + + + | Author | [facility] | + + + | Organization | [facility] | + + + | Address | Unknown | + + + | Phone | Unavailable | + + + Support + + + + + | Name | Relationship | Address | Phone | + + + + + | Grisel Marc | ECON | [address] | | | | | [place] | | | | | [address] | | + + + + + Care Team Providers + +------+ + | Care Supervisor Char House Name | Role | Phone | + [...] | | | | | | [place] [facility] | | | | | | [place], [place] | | | | | | [address] | | | | | | [phone] | | | +--------+ + + + [...]
--- OUTSIDE RECORDS SUMMARY | ~2020-03-08 | XMS | Encounter Summary ---
Demographics + + + | Address | [address] | | | [place] [address] | + + + | Home Phone [...] [place] | | | | | [address] | | + + + + + Care Team Providers + +------+ + | Care Borematic Machine Operator Name | Role | Phone [...] | | | | [address] | [place] [address] | | | | | [place], [address] | [phone] | | | | | [place], [place] | | | | | | [address] | | | | | | [phone] | | | +--------+ + + + [...]
--- OUTSIDE RECORDS SUMMARY | ~2020-03-08 | XMS | Encounter Summary ---
Demographics + + + | Address | [address] | | | [place] [address] | + + + | Home Phone | | + + + | Preferred Language | Unknown | + + + | Marital Status | Single | + + + | Quaker Affiliation | LUT | + + + [...] [place] | | | | | [address] | | + + + + + Care Team Providers + +------+ + | Care Consultant Teacher Name | Role | Phone | + +------+ + | Adilia BobP | PCP | | + +------+ + Encounter Details +--------+ + + + + | Date | Type | Department | Care Team | Description | +--------+ + + + + | 03/11/ | Hospital | Diagnostic | | | | 2012 | Encounter | Radiology at [facility] | | | | | | [address] | | | | | | [address] | | | | | | [place], [facility] | | | | | | [place], [place] | | | | | | [address] | | | | | | [phone] | | | +--------+ + + + [...] +--------+ + + + | X-RAY KNEE 4 VIEWS | Routin | 03/11/2013 | Osteomyelitis of | Results for this | | LEFT 2 VIEWS RIGHT | e | 1:31 PM | knee region (HCC) | procedure are in the | | ORTHO COMBO | | PDT | | results section. | + +--------+ + + + documented in this encounter Results X-RAY KNEE 4 VIEWS LEFT 2 VIEWS RIGHT ORTHO COMBO (03/11/2013 1:31 PM PDT) + + + + + + | Component | Value | Ref Range | Performed | Pathologist | | | | | At | Signature | + + + + + + | X-RAY KNEE | STUDY: TIBIA AND FIBULA | | | | | 4 VIEWS | 2 VIEWS LT 03/11/13 | | | | | LEFT ORTHO | 13:31:00 AND KNEE 4 | | | | | COMBO | VIEWS HISTORY: Knee | | | | | | pain. COMPARISON: | | | | | | 08/06/12, 12/08/12 | | | | | | FINDINGS: There is an | | | | | | irregular lucency in the | | | | | | proximal tibial | | | | | | diametaphysis, | | | | | | decreasedin size with | | | | | | faint surrounding | | | | | | sclerosis and periosteal | | | | | | bone | | | | | | formation,consistent | | | | | | with history of | | | | | | osteomyelitis; the | | | | | | margins are slightly | | | | | | moresclerotic and filled | | | | | | in, compatible with | | | | | | minimal interval | | | | | | healing. There issoft | | | | | | tissue swelling at the | | | | | | anterior portion of the | | | | | | proximal tibia. There | | | | | | isno new focal area of | | | | | | destruction or | | | | | | periosteal reaction. | | | | | | There is no | | | | | | fracture.Mild medial | | | | | | compartment joint space | | | | | | narrowing is unchanged. | | | | | | The joint spacesare | | | | | | preserved. There is a | | | | | | trace left knee joint | | | | | | effusion. IMPRESSION: | | | | | | Sequela of left proximal | | | | | | tibial osteomyelitis | | | | | | with slight interval | | | | | | healing. Nonew bone | | | | | | destruction or | | | | | | periosteal reaction. | | | | | | Attending Radiologists: | | | | | | ALYSSA YUNG, | | | | | | MDAuthor: МАРИЯ | | | | | | MD DONNA I have | | | | | | personally viewed this | | | | | | procedure/exam, reviewed | | | | | | this report, and | | | | | | madechanges to it where | | | | | | appropriate. | | | | | | Final/Electronically | | | | | | signed / ALYSSA | | | | | | DILSHAD 03/11/2013 15:02 | | | | | | PM | | | | + + [...]
--- OUTSIDE RECORDS SUMMARY | ~2020-03-08 | XMS | Encounter Summary ---
Demographics + + + | Address | [address] | | | [place] [address] | + + + | Home Phone [...] [place] | | | | | [address] | | + + + + + Care Team Providers + +------+ + | Care Flyer Maker Name | Role | Phone | + +------+ + | Hina Peterson | PCP | | + +------+ + Encounter Details +--------+--------+ + + + | Date | Type | Department | Care Team | Description | +--------+--------+ + + + | 12/08/ | Travel | | | | | 2020 | | | | | +--------+--------+ + [...]
--- OUTSIDE RECORDS SUMMARY | ~2020-03-08 | XMS | Encounter Summary ---
Demographics + + + | Address | [address] | | | [place] [address] | + + + | Home Phone | | + + + | Preferred Language | Unknown | + + + | Marital Status | Single | + + + | Adventism Affiliation | LUT | + + + | Race | White | + + + | Ethnic Group | Not or | + + + Author + + + | Author | [facility] | + + + | Organization | [facility] | + + + | Address | Unknown | + + + | Phone | Unavailable | + + + Support + + + + + | Name | Relationship | Address | Phone | + + + + + | Grisel Marc | ECON | [address] | | | | | [place] | | | | | [address] | | + + + + + Care Team Providers + +------+ + | Care Sheet Rock Applicator Name | Role | Phone | + +------+ + | Adilia BobP | PCP | | + +------+ + Encounter Details +--------+ + + + + | Date | Type | Department | Care Team | Description | +--------+ + + + + | 12/08/ | Hospital | Diagnostic | | | | 2012 | Encounter | [facility] | | | | | | [address] | | | | | | [address] [facility] | | | | | | [place], [facility] Floor | | | | | | [place], [place] | | | | | | [address] | | | | | | [phone] | | | +--------+ + + + [...] X-RAY TIBIA & FIBULA | Routin | 12/08/2012 | Osteomyelitis of | Results for this | | 2 VIEWS LT | e | 8:15 AM | knee region (HCC) | procedure are in the | | | | PDT | Pathologic fracture | results section. | | | | | of tibia or fibula | | + +--------+ + + + documented in this encounter Results X-RAY TIBIA & FIBULA 2 VIEWS LT (12/08/2012 8:15 AM PDT) + + + + + + | Component | Value | Ref Range | Performed | Pathologist | | | | | At | Signature | + + + + + + | TIBIA AND | EXAM: TIBIA AND FIBULA 2 | | | | | FIBULA 2 | VIEWS LT AND KNEE TWO | | | | | VIEWS LT | VIEWS LEFT | | | | | | 12/09/1307:15:00 | | | | | | HISTORY: Osteomyelitis | | | | | | of knee COMPARISON: | | | | | | 10/15/12 and 09/02/12 | | | | | | FINDINGS: There is | | | | | | stable irregular lucency | | | | | | in the proximal | | | | | | tibialmetaphysis with | | | | | | surrounding sclerosis | | | | | | compatible with the | | | | | | knownosteomyelitis, | | | | | | probably status post | | | | | | curettage. No new focal | | | | | | area ofdestruction is | | | | | | observed. Mature | | | | | | periosteal new bone | | | | | | formation is seenat the | | | | | | proximal tibial | | | | | | diametaphysis. The | | | | | | antibiotic beads | | | | | | haveresorbed. Anterior | | | | | | soft tissue irregularity | | | | | | is noted overlying | | | | | | thetibial osteomyelitis | | | | | | without change. There is | | | | | | no fracture. The | | | | | | joint spaces are | | | | | | preserved. Alignment | | | | | | ismaintained. There is | | | | | | a trace knee joint | | | | | | effusion. IMPRESSION: 1. | | | | | | Complete resorption | | | | | | of the antibiotic beads | | | | | | in the proximal | | | | | | lefttibial osseous | | | | | | defect. 2. No new | | | | | | areas of focal osseous | | | | | | destruction. Attending | | | | | | Radiologists: ESEQUIEL | | | | | | KAYLA PAIZuthor: | | | | | | Jason Nolasco M.D. I | | | | | [...] | | | | | | CHENCHO 12/08/2012 | | | | | | 9:50 AM | | | | + + + + + + + + | Specimen | + + | | + + + +---------+ + + | Performing | Address | City/State/Zipcode | Phone Number | | Organization | | | | + +---------+ + + | [facility] | | | | | [...]
--- OUTSIDE RECORDS SUMMARY | ~2020-03-08 | XMS | Encounter Summary ---
Demographics + + + | Address | [address] | | | [place] [address] | + + + | Home Phone | | + + + | Preferred Language | Unknown | + + + | Marital Status | Single | + + + | Yarsanism Affiliation | LUT | + + + [...] [place] | | | | | [address] | | + + + + + Care Team Providers + +------+ + | Care Hog Counter Name | Role | Phone | + [...] + + + + | 09/04/ | Hand Flesher | Infectious | Brigid Hardy | | | 2012 | | [facility] | L, [place] | | | | | [address] | | | | | | [address] [facility] | | | | | | [place], [address] floor | | | | | | [place], [place] | | | | | | [address] | | | | | | [phone] | | | +--------+ + + + [...]
--- OUTSIDE RECORDS SUMMARY | ~2020-03-08 | XMS | Encounter Summary ---
Demographics + + + | Address | [address] | | | [place] [address] | + + + | Home Phone | | + + + | Preferred Language | Unknown | + + + | Marital Status | Single | + + + | Temple Affiliation | LUT | + + + | Race | White | + + + | Ethnic Group | Not or | + + + Author + + + | Author | [facility] | + + + | Organization | [facility] | + + + | Address | Unknown | + + + | Phone | Unavailable | + + + Support + + + + + | Name | Relationship | Address | Phone | + + + + + | Grisel Marc | ECON | [address] | | | | | [place] | | | | | [address] | | + + + + + Care Team Providers + +------+ + | Care Music Rehabilitation Therapist Name | Role | Phone | + +------+ + | Hina Peterson | PCP | | + +------+ + Reason for Visit + + + | Reason | Comments | + + + | Follow-up visit | Lt Knee pain | + + + Encounter Details +--------+---------+ + + + | Date | Type | Department | Care Team | Description | +--------+---------+ + + + | 10/07/ | Office | [facility] | Bambi Fried | Left knee pain, | | 2019 | Visit | Sports Medicine & | STANTON Johnson [address] [facility] | unspecified | | | | Orthopaedic Surgery | [address] | chronicity (Primary | | | | [address] | [place], [place] | Dx); Rupture of | | | | [place], [place] | [address] | anterior cruciate | | | | [address] | [phone] | ligament of left | | | | [phone] | | knee, subsequent | | | [...] Weight | 89.8 kg (198 lb) | 10/07/2019 10:26 AM | | | | | PST | | + + + + + | Height | 170.2 cm (5' 7") | 10/07/2019 10:26 AM | | | | | PST | | + + + + + | Body Mass Index | 31.01 | 10/07/2019 10:26 AM | | | | | PST | | + + + + + documented in this encounter Patient Instructions Patient Instructions Dann Monroy MA - 10/07/2019 10:15 AM PSTMeasured for a functional AC L Knee brace Work on Smoking cessation and follow up with [facility] when you have quit smoking. [facility] will contact you about the brace. Follow up in 8 weeks documented in this encounter Progress Notes Bambi Fried PA-C - 10/07/2019 10:15 AM PSTFormatting of this note might be differen t from the original. Chief Complaint: Left knee pain HPI: Sandy (Dinora-ee-l) Alexa Marc is a 28 y.o. female who returns to the office today in follow up of left knee pain.She has had a complex history with this knee going back 10 year s or so. She had sustained a tibial plateau fracture that required ORIF. This subsequently w as infected with staph.She developed osteo and required multiple surgeries I believe at [facility] to clear this infection over the next 1-2 years. The infection resolved but she has had a p ainful knee for some time. Recently she had a hyperextension injury and an MRI shows an abse nt ACL with marked degenerative changes in the medial compartment. The patient was last seen in the office on 06/25/[address] Saba. She was referred to [facility] for possible osteochondral allograft, reconstruction. The patient has been working on smoking cessation but unfortunately has started to smoke again recently. [facility] will not see the patient until she has documentation of smoking cessation. The patient reports she experienced a pop in her left knee and increased pain on 09/25/2019, she went to [facility] ED in [place], [place] for further evaluation. The patient reports she was t old by the ED provider that her knee was the worst knee he has ever seen for her age a nd her knee was hanging on by a thread." She denies any new injury, trauma or falls. Gisselle connolly has been wearing her ACL brace and her knee immobilizer. 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 Current pain is 10/10 and is characterized as sharp, dull, stabbing, aching, throbbing, bur raymond and constant. Symptoms are worsening. The pain does not wake the patient at night. I t is associated with swelling and weakness. Symptoms are aggravated by standing, walking, s tairs, squatting, kneeling, twisting, bending, sitting, exercise, lifting and overhead activ ities, and improve with rest and elevation. She is using tramadol for the pain. Past Medical History: Diagnosis [...] Marital status: Single Spouse name: S.O./Parent Zoe Marc Number of children: 0 Years of education: [...] Last attempt to quit: 01/30/2016 Years since quittin.6 Smokeless tobacco: Never Used Substance and Sexual Activity Alcohol use: Yes Alcohol/week: 0.0 standard drinks Comment: 4 beers on Friday and nights Drug use: No Sexual activity: Not on file Lifestyle Physical activity: Days per week: Not on file Minutes per session: Not on file Stress: Not on file Relationships Social connections: Talks on phone: Not on file Gets together: Not on file Attends advent service: Not on file Active member of [...] History Narrative Lives with her parents in [place]. Has adequate support should surgery be needed. D enies transportation problems. Review of Systems: Completed and reviewed with patient per patient intake form. See scanned document for refe crow. Physical Exam: Ht 1.702 m (5' 7") | Wt 89.8 kg (198 lb) | BMI 31.01 kg/m | BSA 2.06 m Alert, pleasant and in NAD Left knee: Inspection: Mild swelling, well healed surgical incisions. No erythema or ecchymosis. Palpation: Pain globally. Diffusely tender to palpation. Range of motion: 0-110 degrees Strength: Good quadriceps contracture . Stability: normal stability on varus /valgus stress examination Positive Lisbeth's with significant guarding Ramon negative NVI Radiology: X-ray examination Left knee 06/04/19 demonstrates Feliberto changes and mild medial joint space narrowing. There are sclerotic changes noted tibial and femur MRI left knee from [facility] in [place] demonstrates Chronic ACL tear and medial join t space degenerative changes/cartilage loss, subchondral bone cystic changes XR Left knee 10/07/19 No acute fracture. Unchanged from previous xray. Assessment: Left knee DJD Left knee ACL tear H/o osteomyelitis in left knee Plan:The patient's clinical history and physical exam are consistent with chronic left knee ACL tear, mild degenerative disease and history of osteomyelitis. I reviewed the natural h istory of this disorder with the patient and have outlined treatment options. The patient r eports full compliance with her ACL brace, however she believes this brace is 6-7 years old and no longer fits her properly. She was measured for a new custom ACL brace today, which s he will continue to wear for stability. She was encouraged to follow up with [facility] for possib le osteochondral allograft and reconstruction surgery. She will continue to work on smoking cessation, as this is required for [facility]. 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 She per l be provided a note for light duty at work with no lifting more than 25 lb and the ability to take breaks as needed to rest her knee. She will return to the clinic in 8 weeks, sooner if needed. Follow up: 8 weeks Bambi Fried PA-C Orthopedic Physician Serging Machine Operator Automatic [facility] Orthopaedics and Rehabilitation [facility] Orthopaedics and Sports Medicine [address] [place] [address] Office: [phone] documented in th is encounter Plan of Treatment Not on filedocumented as of this encounter Results X-RAY KNEE 3 VIEWS LEFT (10/07/2019 10:43 AM PST) + + | Specimen | + + | | + + + + + | Narrative | Performed At | + + + | [address] [place] [address] | [facility] | | [place] [address] | DEPARTMENT | | [phone] Name: SANDY MARC (DINORA-EE-L) | RADIOLOGY | | Phys: BAMBI FRIED : 1990 Sex: F | | | CSN: [id number] MR# [id number] Exam Date: | | | 10/07/2019 EXAM: X-RAY KNEE 3 VIEWS LEFT [id number] CLINICAL | | | HISTORY: Left knee [...] proximal | | | tibial metadiaphysis. 2. Qiot-ig-sihglcno medial femorotibial joint | | | degeneration. REPORT SIGNED IN OTHER VENDOR SYSTEM | | | 10/08/2019 Reported by: HELENA BARRAZA MD Electronically | | | signed by: HELENA BARRAZA MD Transcribed Date/Time: 10/08/2019 | | | 13:44 Power Generation Plant Operator: FLUENCY | | + + + + + | Procedure Note | + + | Interface, Radiology Results - 10/08/2019 1:51 PM PST [address] | | [address] [place] [address] | | Name: SANDY MARC (DINORA-EE-L) Phys: BAMBI FRIED : 1990 | | Sex: F CSN: [id number] MR# [id number] Exam Date: 10/07/2019 EXAM:X-RAY | | KNEE 3 VIEWS LEFT [id number] CLINICAL HISTORY:Left knee pain. COMPARISON:06/14/2019 left | [...] in the | | proximal tibial metadiaphysis.2. Ebzi-ed-qhnxdddb medial femorotibial joint | | degeneration. REPORT [...] in the proximal tibial metadiaphysis. | |2. Jytq-bd-zeyzfezk medial femorotibial joint degeneration. | | | | | | REPORT SIGNED IN OTHER VENDOR SYSTEM 10/08/2019 | |Reported by: HELENA BARRAZA MD | | | |Electronically signed by: HELENA BARRAZA MD | | | |Transcribed Date/Time: 10/08/2019 13:44 | |Power Generation Plant Operator: FLUENCY | | | | | | [...] chronicity - Primary | + + | Rupture of anterior cruciate ligament of left knee, subsequent encounter | + + | Osteomyelitis of knee region (HCC) Unspecified osteomyelitis, lower leg | + + | Articular cartilage disorder | + + | Post-traumatic osteoarthritis of left knee Secondary localized osteoarthrosis, lower | | leg | + + documented in this encounter
--- OUTSIDE RECORDS SUMMARY | ~2020-03-08 | XMS | Encounter Summary ---
Demographics + + + | Address | [address] | | | [place] [address] | + + + | Home Phone | | + + + | Preferred Language | Unknown | + + + | Marital Status | Single | + + + | Amish Affiliation | LUT | + + + | Race | White | + + + | Ethnic Group | Not or | + + + Author + + + | Author | [facility] | + + + | Organization | [facility] | + + + | Address | Unknown | + + + | Phone | Unavailable | + + + Support + + + + + | Name | Relationship | Address | Phone | + + + + + | Grisel Marc | ECON | [address] | | | | | [place] | | | | | [address] | | + + + + + Care Team Providers + +------+ + | Care Duct Maker Name | Role | Phone | [...] | Sports Medicine & | STANTON Johnson [address] [facility] | unspecified | | | | Orthopaedic Surgery | [address] | chronicity (Primary | | | | [address] | [place], [place] | Dx); Rupture of | | | | [place], [place] | [address] | anterior cruciate | | | | [address] | [phone] | ligament of left | | | | [phone] | | knee, subsequent | | | [...] on Smoking cessation and follow up with [facility] when you have quit smoking. [facility] will contact you about the brace. Follow [...] and required multiple surgeries I believe at [facility] to clear this infection over the next 1-2 years. The infection resolved but she has had a p ainful knee for some time. Recently she had a hyperextension injury and an MRI shows an abse nt ACL with marked degenerative changes in the medial compartment. The patient was last seen in the office on 06/25/[address] Saba. She was referred to [facility] for possible osteochondral allograft, reconstruction. The patient has been working on smoking cessation but unfortunately has started to smoke again recently. [facility] will not see the patient until she has documentation of smoking cessation. The patient reports she experienced a pop in her left knee and increased pain on 09/25/2019, she went to [facility] ED in [place], [place] for further evaluation. The patient reports [...] file Gets together: Not on file Attends yarsani service: Not on file Active member of [...] History Narrative Lives with her parents in [place]. Has adequate support should surgery be [...] tibial and femur MRI left knee from [facility] in [place] demonstrates Chronic ACL tear and medial join [...] She was encouraged to follow up with [facility] for possib le osteochondral allograft and reconstruction surgery. She will continue to work on smoking cessation, as this is required for [facility]. The patient reports she is required to [...] 8 weeks Bambi Fried PA-C Orthopedic Physician Battery Loader [facility] Orthopaedics and Rehabilitation [facility] Orthopaedics and Sports Medicine [address] [place] [address] Office: [phone] documented in th is encounter Plan of Treatment Not on filedocumented as of this encounter Results X-RAY KNEE 3 VIEWS LEFT (10/07/2019 10:43 AM PST) + + | Specimen | + + | | + + + + + | Narrative | Performed At | + + + | [address] [place] [address] | [facility] | | [place] [address] | DEPARTMENT | | [phone] Name: SANDY MARC (DINORA-EE-L) | RADIOLOGY | | Phys: BAMBI FRIED : 1990 Sex: F | | | CSN: [id number] MR# [id number] Exam Date: | | | 10/07/2019 EXAM: X-RAY KNEE 3 VIEWS LEFT [id number] CLINICAL | | | HISTORY: Left knee [...] proximal | | | tibial metadiaphysis. 2. Wboe-og-nqfkrgri medial femorotibial joint | | | degeneration. REPORT SIGNED IN OTHER VENDOR SYSTEM | | | 10/08/2019 Reported by: HELENA BARRAZA MD Electronically | | | signed by: HELENA BARRAZA MD Transcribed Date/Time: 10/08/2019 | | | 13:44 Highway Maintenance Worker: FLUENCY | | + + + + + | Procedure Note | + + | Interface, Radiology Results - 10/08/2019 1:51 PM PST [address] | | [address] [place] [address] | | Name: SANDY MARC (DINORA-EE-L) Phys: BAMBI FRIED : 1990 | | Sex: F CSN: [id number] MR# [id number] Exam Date: 10/07/2019 EXAM:X-RAY | | KNEE 3 VIEWS LEFT [id number] CLINICAL HISTORY:Left knee pain. COMPARISON:06/14/2019 left | [...] in the | | proximal tibial metadiaphysis.2. Nfad-fo-ewfifwxh medial femorotibial joint | | degeneration. REPORT [...] in the proximal tibial metadiaphysis. | |2. Cjpx-zy-hedrdcti medial femorotibial joint degeneration. | | | | | | REPORT SIGNED IN OTHER VENDOR SYSTEM 10/08/2019 | |Reported by: HELENA BARRAZA MD | | | |Electronically signed by: HELENA BARRAZA MD | | | |Transcribed Date/Time: 10/08/2019 13:44 | |Highway Maintenance Worker: FLUENCY | | | | | [...]
--- OUTSIDE RECORDS SUMMARY | ~2020-03-08 | XMS | Encounter Summary ---
Demographics + + + | Address | [address] | | | [place] [address] | + + + | Home Phone [...] Author + + + | Author | [facility] | + + + | Organization | [facility] | + + + | Address | Unknown | + + + | Phone | Unavailable | + + + Support + + + + + | Name | Relationship | Address | Phone | + + + + + | Grisel Marc | ECON | [address] | | | | | [place] | | | | | [address] | | + + + + + Care Team Providers + +------+ + | Care Strike Out Machine Operator Name | Role | Phone | + +------+ + | Hina [place] | PCP | | + +------+ + Reason for Referral Transfer to Another Service Area (Routine) +--------+--------+ + + + + | [...] | | | | Osteomyeliti | [address] | ,PhD 7635 | | | | | s of knee | [address] | [address] | | | | | region ([facility]) | [facility] | [facility] | | | | | Articular | Rd | [address], | | | | | cartilage | [place], [place] | [place] | | | | | disorder | [address] | [address] | | | | | Left knee | Phone: | Phone: | | | | | pain, | [phone] | [phone] | | | | | unspecified | Fax: | Fax: | | | | | chronicity | [phone] | [phone] | | | | | Post-traumat | [...] | | | Janett Case | [place], [place] | (Primary Dx); | | | | [place] [address] | [address] | Articular cartilage | | | | [phone] | [phone] | disorder; Left knee | | | [...] required multiple surgeries I believe at [facility] to clear this infection over the [...] this visit. Radiology: X-ray examination 06/04/19 demonstrates [place] changes and mild medial joint space narr owing. There are sclerotic changes noted tibial and femur MRI left knee from [facility] demonstrates Chronic ACL tear and medial join [...] her age we will refer her to [facility] for possible osteochondral allograft, reconstr uction Follow up: linda Saba MD [facility] Orthopaedics and Rehabilitation Clinical Casino Cashier Manager Board Certified in Sports Medicine and Orthopaedic Surgery Director of Total Joint Replacement Program, [facility] Orthopaedics and Sports Medicine [address] [place] [address] Office: [phone] documented in this e ncounter Plan of [...]
--- OUTSIDE RECORDS SUMMARY | ~2020-03-08 | XMS | Encounter Summary ---
Demographics + + + | Address | [address] | | | [place] [address] | + + + | Home Phone [...] + + | Author | [facility] | + + + | Organization | [facility] | + + + [...] [place] | | | | | [address] | | + + + + + Care Team Providers + +------+ + | Care Casting Operator Name | Role | Phone | [...] | | [address] | [address] | | | | | [place], [place] | [phone] | | | | | [address] | | | | | | [phone] | | | +--------+ + + + [...]
--- OUTSIDE RECORDS SUMMARY | ~2020-03-08 | XMS | Encounter Summary ---
Demographics + + + | Address | [address] | | | [place] [address] | + + + | Home Phone | | + + + | Preferred Language | Unknown | + + + | Marital Status | Single | + + + | Protestant Affiliation | LUT | + + + [...] [place] | | | | | [address] | | + + + + + Care Team Providers + +------+ + | Care Flakeboard Line Tender Name | Role | Phone | [...] + + + + | 09/04/ | Bottle Gauger | Infectious | Brigid Hardy | | | 2012 | | [facility] | L, PA | | | | | [address] | | | | | | [address] [facility] | | | | | | [address] floor | | | | | | [place], [place] | | | | | | [address] | | | | | | [phone] | | | +--------+ + + + [...]
--- OUTSIDE RECORDS SUMMARY | ~2020-03-08 | XMS | Encounter Summary ---
Demographics + + + | Address | [address] | | | [place] [address] | + + + | Home Phone [...] + | Grisel Marc | ECON | [address] | | | | | [place] | | | | | [address] | | + + + + + Care Team Providers + +------+ + | Care Numerical Control Machine Tool Operator Name | Role | Phone | [...] Closed | | Radiology | Diagnoses | Mirza, | McMc | | | | | Pain in | STANTON Almanza | General | | | | | left knee | [address] | Radiology | | | | | Unspecified | [address] | [address] | | | | | tear of | [place], | [place] | | | | | unspecified | [place] | [place], [place] | | | | | meniscus, | [address] | [address] | | | | | current | Phone: | Phone: | | | | | injury, left | [phone] | [phone] | | | | | knee, | Fax: | Fax: | | | | | initial | [phone] | [phone] | | | | | encounter | | | | | | | Sprain of | | | | | | | anterior | | | | | | | cruciate | | | | | | | ligament of | | | | | | | left knee, | | | | | | | initial | | | | | | | encounter | | | | | | | Procedures | | | | | | | US DUPLEX | | | | | | | LOWER | | | | | | | EXTREMITY | | | | | | | VENOUS LEFT | | | | | | | HI DUPLEX | | | | | | | EXTREM | | | | | | | VENOUS,UNI | | | | | | | OR LTD | | | +--------+--------+ + + + + Encounter Details +--------+ + + + + | Date | Type | Department | Care Team | Description | +--------+ + + + + | 06/04/ | Hospital | Ultrasound at [facility] | Jaci Blue, | | | 2019 | Encounter | Hospital [address] | PA-C [address] | | | | | [place], | [place], [place] | | | | | [place] [address] | [address] | | | | | [phone] | [phone] | | | | | | | [...] + + documented in this encounter Results US DUPLEX LOWER EXTREMITY VENOUS LEFT (06/04/2019 10:49 AM PDT) + + | Specimen | + + | | + + + + + | Narrative | Performed At | + + + | [address] | [facility] | | [place] [address] | [facility] | | [phone] Name: SANDY MARC Phys: | RADIOLOGY | | JAC[place] BLUE : 1990 Sex: F CSN: | | | [id number] MR# [id number] Exam Date: 06/04/2019 | | | EXAM: [...] Transcribed | | | Date/Time: 06/04/2019 11:28 Insurance Claims Representative: FLUENCY | | + + + + + | Procedure Note | + + | Interface, Radiology Results - 06/04/2019 11:36 AM PDT [address] | | [address] [place] [address] | | Name: SANDY MARC Phys: JACI BLUE : 1990 Sex: F | | CSN: [id number] MR# [id number] Exam Date: 06/04/2019 EXAM:LEFT LOWER EXTREMITY | [...] MD Transcribed Date/Time: 06/04/2019 | | 11:28Transcriptionist: FLUENCY | |LEFT LOWER EXTREMITY DUPLEX DOPPLER ULTRASOUND [...] | | |Transcribed Date/Time: 06/04/2019 11:28 | |Insurance Claims Representative: FLUENCY | | | | | | [...] pain, unspecified chronicity | + + | Tears of meniscus and anterior cruciate ligament of left knee, initial encounter | + + documented in this encounter"
--- OUTSIDE RECORDS SUMMARY | ~2020-03-08 | XMS | Encounter Summary ---
Demographics + + + | Address | [address] | | | [place] [address] | + + + | Home Phone [...] Author + + + | Author | [facility] | + + + | Organization | [facility] | + + + | Address | Unknown | + + + | Phone | Unavailable | + + + Support + + + + + | Name | Relationship | Address | Phone | + + + + + | Grisel Marc | ECON | [address] | | | | | [place] | | | | | [address] | | + + + + + Care Team Providers + +------+ + | Care Medication Manager Name | Role | Phone | + +------+ + | Hina Peterson | PCP | | + +------+ + Encounter Details +--------+ + + + + | Date | Type | Department | Care Team | Description | +--------+ + + + + | 07/14/ | Results | EPIC AT [facility] [address] | [place], | | | 2014 | Only | [address] | MD [address] | | | | | [place] | [place] | | | | | [address] | [address] | | | | | | [phone] | | | | | | | [...] | + +--------+ + + + | ORT KNEE 3V | Routin | 07/14/2015 | | Results for this | | [address] | e | 10:19 AM | | procedure are in the | | | | PST | | results section. | + +--------+ + + + documented in this encounter Results ORT KNEE 3V 01735 (07/14/2015 10:19 AM PST) + + | Specimen | + + | | + + + + + | Narrative | Performed At | + + + | Name: | [facility] | | SANDY MARC | DEPARTMENT OF | | Phys: Mars Nicolas MD | RADIOLOGY | | | | | : 1990 Age: 24 Sex: F | | | Acct: [id number] Loc: ORTH | | | | | | Exam Date: 07/14/2015 Status: PRE CLI | | | Radiology No: [id number] | | | Unit No: | | | EXAM# TYPE/EXAM | | | RESULT | | | [id number] ORT/ORT KNEE 3V 73 | | | EXAM: ORT | | | KNEE 3V 21005 CLINICAL HISTORY: | | | Knee pain. Subacute injury. COMPARISON: | | | 03/01/2014 FINDINGS: Three views of | | | the left knee were obtained. There is coarsening of the | | | bony trabecula present at the left femoral condyle, left patella | | | and proximal left tibia. Similar changes are noted on the last | | | examination. Etiology of the coarsening is unknown. | | | Demineralization or changes related to old trauma are considerations. | | | Further evaluation such as by MRI scan or CT scan may be | | | helpful. No acute bony fracture or dislocation is seen. . | | | IMPRESSION: There is coarsening of the bony | | | trabecula present in the left femoral condyles, proximal | | | tibia and patella. No acute fracture or dislocation is seen. | | | REPORT SIGNED | | | IN OTHER VENDOR SYSTEM 07/14/2015 | | | Reported By: Kristian Robertson MD | | | Technologist: JULIO PELLETIER | | | Electronically signed by: Kristian | | | Ailyn FORRESTER CC: Mars Nicolas MD; Sonal | | | Alex Escalante MD | | | | | | Transcribed Date/Time: 07/14/2015 | | | (6406) Sewing Machine Attachment Tester: [email or web address] PAGE 1 | | | Signed Report | | | | | + + + + + | Procedure Note | + + | Interface, Radiology Results - 12/21/2015 11:29 AM PDT | | Name: SANDY MARC | | Phys: Mars Nicolas MD : | | 1990 Age: 24 Sex: F Acct: [id number] | | Loc: ORTH Exam Date: 07/14/2015 | | Status: PRE CLI Radiology No: [id number] | | Unit No: EXAM# TYPE/EXAM | | RESULT [id number] ORT/ORT KNEE 3V | | 73 EXAM: ORT KNEE 3V | | 92629 CLINICAL HISTORY: Knee pain. Subacute injury. COMPARISON: | | 03/01/2014 FINDINGS: Three views of the left knee were obtained. | | There is coarsening of the bony trabecula present at the left femoral condyle, left | | patella and proximal left tibia. Similar changes are noted on the last | | examination. Etiology of the coarsening is unknown. Demineralization or changes | | related to old trauma are considerations. Further evaluation such as by MRI scan or | | CT scan may be helpful. No acute bony fracture or dislocation is seen. . | | IMPRESSION: There is coarsening of the bony trabecula present in the left femoral | | condyles, proximal tibia and patella. No acute fracture or dislocation is seen. | | REPORT SIGNED IN OTHER VENDOR SYSTEM 07/14/2015 | | Reported By: Kristian Robertson MD Technologist: JULIO PELLETIER | | Electronically signed by: Kristian | | Ailyn FORRESTER CC: Mars Nicolas MD; Sonal Escalante MD | | | | Transcribed Date/Time: 07/14/2015 (1022) Sewing Machine Attachment Tester: [email or web address] PAGE 1 | | Signed Report | | the bony trabecula present at the left femoral condyle, left patella | | and proximal left tibia. Similar changes are noted on the last | | examination. Etiology of the coarsening is unknown. | | Demineralization or changes related to old trauma are considerations. | | Further evaluation such as by MRI scan or CT scan may be helpful. No | | acute bony fracture or dislocation is seen. . | | | | IMPRESSION: | | There is coarsening of the bony trabecula present in the left femoral | | condyles, proximal tibia and patella. No acute fracture or | | dislocation is seen. | | | | | | REPORT SIGNED IN OTHER VENDOR SYSTEM 07/14/2015 | | Reported By: Kristian Robertson MD | | | | | | | | | | | | | | | | | | Technologist: JULIO PELLETIER | | Electronically signed by: Kristian Robertson MD | | CC: Mars Nicolas MD; Sonal Escalante MD | | | | | | Transcribed Date/Time: 07/14/2015 (6622) | | Sewing Machine Attachment Tester: [email or web address] | | | | | | PAGE 1 Signed Report | + + + +---------+ + + [...]
--- OUTSIDE RECORDS SUMMARY | ~2020-03-08 | XMS | Encounter Summary ---
Demographics + + + | Address | [address] | | | [place] [address] | + + + | Home Phone [...] [place] | | | | | [address] | | + + + + + Care Team Providers + +------+ + | Care Commercial Designer Name | Role | Phone | [...] | | | | | | [place], | | | | | | [place] [address] | | | | | | [phone] | | | +--------+ + + + [...]
--- OUTSIDE RECORDS SUMMARY | ~2020-03-08 | XMS | Encounter Summary ---
Demographics + + + | Address | [address] | | | [place] [address] | + + + | Home Phone | | + + + | Preferred Language | Unknown | + + + | Marital Status | Single | + + + | Evangelical Affiliation | LUT | + + + | Race | White | + + + | Ethnic Group | Not or | + + + Author + + + | Author | [facility] | + + + | Organization | [facility] | + + + | Address | Unknown | + + + | Phone | Unavailable | + + + Support + + + + + | Name | Relationship | Address | Phone | + + + + + | Grisel Marc | ECON | [address] | | | | | [place] | | | | | [address] | | + + + + + Care Team Providers + +------+ + | Care Truss Driver Helper Name | Role | Phone | + +------+ + | Adilia Bob CREDIT INVESTIGATOR | PCP | | + +------+ + [...] s of knee | Mirza Perez | [facility] | | | | | region ([facility]) | Ravi | Research | | | | | Procedures | [place], [place] | Center | | | | | MRI KNEE | [address] | [place], [place] | | | | | LT WWO CONT | Phone: | [address] | | | | | | [phone] | Phone: | | | | | | Fax: | [phone] | | | | | | [phone] | Fax: | | | | | | | [phone] | +--------+--------+ + + + + Encounter Details +--------+ + + + + | Date | Type | Department | Care Team | Description | +--------+ + + + + | 08/24/ | Hospital | Diagnostic Imaging | | | | 2012 | Encounter | Services at [facility] | | | | | | [address] | | | | | | [place] | | | | | | [facility] | | | | | | [facility] [place] | | | | | | [address] | | | | | | [phone] | | | +--------+ + + + [...] | | | | | T1 images -16, sagittal | | | | | | [...] subchondral | | | | | | R2kylniv hyperintensity | | | | | | [...] | | + +---------+ + + | [facility] DEPARTMENT OF | | | | | RADIOLOGY | | | | + +---------+ + + documented in this encounter Visit Diagnoses + + | Diagnosis | + + | Osteomyelitis of knee region (HCC) Unspecified osteomyelitis, lower leg | + + documented in this encounter"
--- OUTSIDE RECORDS SUMMARY | ~2020-03-08 | XMS | Encounter Summary ---
Demographics + + + | Address | [address] | | | [place] [address] | + + + | Home Phone | | + + + | Preferred Language | Unknown | + + + | Marital Status | Single | + + + | Orthodox Affiliation | LUT | + + [...] + | Grisel Marc | ECON | [address] | | | | | [place] | | | | | [address] | | + + + + + Care Team Providers + +------+ + | Care Special Effects Specialist Name | Role | Phone | [...] | | | Orthopaedic Surgery | [address]vd [place], [place] | chronicity (Primary | | | | [address] | [address] | Dx); Tears of | | | | [place], [place] | [phone] | meniscus and | | | | [address] | | anterior cruciate | | | | [phone] | | ligament of left | | [...] Marc is a 28 y.o. female from [place] who presents to the office today for [...] was referred fo r an MRI in [place] to evaluate this further. Her MRI description [...] MRI left knee from [facility] in [place] demonstrates Chronic ACL tear and medial join [...] tibial plateau fracture requiring multiple surgeries and patient access representative IV antibiotics. Gisselle connolly was doing well until recent hyperextension injury. We reviewed detail of MRI including ACL tear, medial meniscus tear and medial cartilage loss. Risks of ACL reconstruction include i nfection and potentially continued pain/worsening of medial compartment arthritis. I will re view case with Dr Saba. Can potentially refer to [facility] if she is interested in ACL recon. Follow up: w/ Jayant Blue PA-C [facility] Orthopaedic Physician Manager [employer] [facility] [address] [place] [address] Office: [phone] documented in this e ncounter Plan of [...]
--- OUTSIDE RECORDS SUMMARY | ~2020-03-08 | XMS | Encounter Summary ---
Demographics + + + | Address | [address] | | | [place] [address] | + + + | Home Phone | | + + + | Preferred Language | Unknown | + + + | Marital Status | Single | + + + | Catholic Affiliation | LUT | + + + | Race | White | + + + | Ethnic Group | Not or | + + + Author + + + | Author | [facility] | + + + | Organization | [facility] | + + + | Address | Unknown | + + + | Phone | Unavailable | + + + Support + + + + + | Name | Relationship | Address | Phone | + + + + + | Grisel Marc | ECON | [address] | | | | | [place] | | | | | [address] | | + + + + + Care Team Providers + +------+ + | Care Technology Infusion Specialist Name | Role | Phone | + +------+ + | Adilia BobP | PCP | | + +------+ + Encounter Details +--------+ + + + + | Date | Type | Department | Care Team | Description | +--------+ + + + + | 09/21/ | Abstract | Infectious | Brigid Hardy | | | 2012 | | Diseases at [facility] | [facility] | | | | | [address] | | | | | | Loop Physician[address] | | | | | | [place], [address] floor | | | | | | [place], [place] | | | | | | [address] | | | | | | [phone] | | | +--------+ + + + [...] + | CBC, WITH | Routin | 09/21/2012 | | Results for this | | DIFFERENTIAL | e | 9:30 AM | | procedure are in the | | | | PST | | results section. | + +--------+ + + + | COMPLETE METABOLIC | Routin | 09/21/2012 | | Results for this | | SET | e | 9:30 AM | | procedure are in the | | (NA,K,CL,CO2,BUN,CRE | | PST | | results section. | | AT,GLUC,CA,AST,ALT,B | | | | | | JENNIFER TOTAL,ALK | | | | | | PHOS,ALB,PROT TOTAL) | | | | | + +--------+ + + + documented in this encounter Results CBC, WITH DIFFERENTIAL (09/21/2012 9:30 AM PST) + + + + + + | Component | Value | Ref Range | Performed | Pathologist | | | | | At | Signature | + + + + + + | WHITE CELL | 7.2 | K/cu mm | NON [facility] | | | COUNT | | | LAB | | + + + + + + | RED CELL | 3.6 | M/cu mm | NON [facility] | | | COUNT | | | LAB | | + + + + + + | HEMOGLOBIN | 10.4 (A) | 12.1999 - 15 | NON [facility] | | | | | g/dL | LAB | | + + + + + + | HEMATOCRIT | 32 | % | NON [facility] | | | | | | LAB | | + + + + + + | MCV | 87.8 | fL | NON [facility] | | | | | | LAB | | + + + + + + | MCH | 28.6 | pg | NON [facility] | | | | | | LAB | | + + + + + + | MCHC | 32.5 | g/dL | NON [facility] | | | | | | LAB | | + + + + + + | PLATELET | 381 | K/cu mm | NON [facility] | | | COUNT | | | LAB | | + + + + + + | NEUTROPHIL | 43.2 | % | NON [facility] | | | % | | | LAB | | + + + + + + | LYMPHOCYTE | 37.7 | % | NON [facility] | | | % | | | LAB | | + + + + + + | MONOCYTE % | 6.4 | % | NON [facility] | | | | | | LAB | | + + + + + + | EOS % | 11.4 | % | NON [facility] | | | | | | LAB | | + + + + + + | BASO % | 1.3 | % | NON [facility] | | | | | | LAB | | + + + + + + | RDW | 13.4 | % | NON [facility] | | | | | | LAB | | + + + + + + | MPV | | fL | NON [facility] | | | | | | LAB | | + + + + + + | NEUTROPHIL | 3.1 | K/cu mm | NON [facility] | | | # | | | LAB | | + + + + + + | LYMPHOCYTE | 2.7 | K/cu mm | NON [facility] | | | # | | | LAB | | + + + + + + | MONOCYTE # | 0.5 | K/cu mm | NON [facility] | | | | | | LAB | | + + + + + + | EOS # | 0.8 | K/cu mm | NON [facility] | | | | | | LAB | | + + + + + + | BASO # | 0.1 | | NON [facility] | | | | | | LAB | | + + + + + + | ESR (SED | 25 | | NON [facility] | | | RATE) | | | LAB | | + + + + + [...] COMPLETE METABOLIC SET (NA,K,CL,CO2,BUN,CREAT,GLUC,CA,AST,ALT,BILI TOTAL,ALK PHOS,ALB,PROT TOTAL) (09/21/2012 9:30 AM PST) + +-------+ + + + | Component | Value | Ref Range | Performed | Pathologist | | | | | At | Signature | + +-------+ + + + | GLUCOSE, | 94 | 65 - 110 mg/dL | NON [facility] | | | PLASMA | | | LAB | | | (LAB) | | | | | + +-------+ + + + | BUN, PLASMA | 19 | mg/dL | NON [facility] | | | (LAB) | | | LAB | | + +-------+ + + + | CREATININE | 0.67 | mg/dL | NON [facility] | | | PLASMA | | | LAB | | | (LAB) | | | | | + +-------+ + + + | TOTAL | 6.8 | g/dL | NON [facility] | | [...] + + + | ALK PHOS | 65 | U/L | NON [facility] | | | | | | LAB | | + +-------+ + + + | AST(SGOT) | 15 | U/L | NON [facility] | | [...] + + + | TOTAL CO2, | 23 | mmol/L | NON [facility] | | | PLASMA | | | LAB | | | (LAB) | | | | | + +-------+ + + + | ALT (SGPT) | 13 | U/L | NON [facility] | | | | | | LAB | | + +-------+ + + + | C-REACTIVE | 3.7 | mg/dl | NON [facility] | | | PROTEIN | | | LAB | | + +-------+ + + + | CK | 21 | U/L | NON [facility] | | | | | | LAB | | + +-------+ + + + + + | Specimen | + + | Blood - Blood | + + + +---------+ + + | Performing | Address | City/State/Zipcode | Phone Number | | Organization | | | | + +---------+ + + | [facility] | | | | + +---------+ + + documented in this encounter Visit Diagnoses Not on filedocumented in this encounter"
--- OUTSIDE RECORDS SUMMARY | ~2020-03-08 | XMS | Encounter Summary ---
Demographics + + + | Address | [address] | | | [place] [address] | + + + | Home Phone [...] + + + | Author | [facility] | + + + | Organization | [facility] | + + + | Address | Unknown | + + + | Phone | Unavailable | + + + Support + + + + + | Name | Relationship | Address | Phone | + + + + + | Grisel Marc | ECON | [address] | | | | | [place] | | | | | [address] | | + + + + + Care Team Providers + +------+ + | Care Market Manager Name | Role | Phone | [...] [facility] | | | | | | [address] | | | | | | [address] Physician's | | | | | | [place], [facility] Floor | | | | | | [place], [place] | | | | | | [address] | | | | | | [phone] | | | +--------+ + + + [...] | | + +---------+ + + | [facility] DEPARTMENT OF | | | | | [...]
--- OUTSIDE RECORDS SUMMARY | ~2020-03-08 | XMS | Encounter Summary ---
Demographics + + + | Address | [address] | | | [place] [address] | + + + | Home Phone | | + + + | Preferred Language | Unknown | + + + | Marital Status | Single | + + + | Mandaen Affiliation | LUT | + + + | Race | White | + + + | Ethnic Group | Not or | + + + Author + + + | Author | [facility] | + + + | Organization | [facility] | + + + | Address | Unknown | + + + | Phone | Unavailable | + + + Support + + + + + | Name | Relationship | Address | Phone | + + + + + | Grisel Marc | ECON | [address] | | | | | [place] | | | | | [address] | | + + + + + Care Team Providers + +------+ + | Care Merchandise Worker Name | Role | Phone | [...] | | | | [address] [place] | [address] | | | | | [place] | [phone] | | | | | [place] | | | | | | [address] | | | | | | [phone] | | | +--------+ + + + [...]
--- OUTSIDE RECORDS SUMMARY | ~2020-03-08 | XMS | Encounter Summary ---
Demographics + + + | Address | [address] | | | [place] [address] | + + + | Home Phone [...] Author + + + | Author | [facility] | + + + | Organization | [facility] | + + + | Address | Unknown | + + + | Phone | Unavailable | + + + Support + + + + + | Name | Relationship | Address | Phone | + + + + + | Grisel Marc | ECON | [address] | | | | | [place] | | | | | [address] | | + + + + + Care Team Providers + +------+ + | Care Marquetry Worker Name | Role | Phone | [...] | | | | | Unspecified | [address] | [address] | | | | | tear of | [place], | [place] | | | | | unspecified | [place] | [place], [place] | | | | | meniscus, | [address] | [address] | | | | | current | Phone: | Phone: | | | | | injury, left | [phone] | [phone] | | | | | knee, | Fax: | Fax: | | | | | initial | [phone] | [phone] | | | | | encounter | [...] | | | | | | | [place] DUPLEX | | | | | | [...] [address] | | | | | [place], | [place], [place] | | | | | [place] [address] | [address] | | | | | [phone] | | | | | | | [...] | + + + | [address] | [facility] | | [place] [address] | [facility] | | [phone] Name: SANDY MARC Phys: | RADIOLOGY | | [place] BLUE : 1990 Sex: F CSN: | | | [id number] MR# [id number] Exam Date: 06/04/2019 | | | EXAM: [...] Transcribed | | | Date/Time: 06/04/2019 11:28 Data Warehouse Architect: FLUENCY | | + + + + + | Procedure Note | + + | Interface, Radiology Results - 06/04/2019 11:36 AM PDT [address] | | [address] [place] [address] | | Name: SANDY MARC Phys: JACI BLUE : 1990 Sex: F | | CSN: [id number] MR# [id number] Exam Date: 06/04/2019 EXAM:LEFT LOWER EXTREMITY | [...] IN OTHER VENDOR SYSTEM 06/04/2019 Reported by: HELNEA BARRAZA MD | | Electronically signed by: [...] | | |Transcribed Date/Time: 06/04/2019 11:28 | |Data Warehouse Architect: FLUENCY | | | | | | [...]
--- OUTSIDE RECORDS SUMMARY | ~2020-03-08 | XMS | Encounter Summary ---
Demographics + + + | Address | [address] | | | [place] [address] | + + + | Home Phone | | + + + | Preferred Language | Unknown | + + + | Marital Status | Single | + + + | Yazidi Affiliation | LUT | + + + [...] [place] | | | | | [address] | | + + + + + Care Team Providers + +------+ + | Care Senior Professional Services Consultant Name | Role | Phone | [...] Visit | Medicine Clinic at | R, [employer] DRIVER [address] | pre-operative | | | | [facility] 4th Floor Day | [address] | examination (Primary | | | | Stay [address] | [place], [place] | Dx); Septic | | | | [address] | [address] | arthritis of knee, | | | | Mailcode: [id number] | [phone] | left ([facility]); AVN | | | | [address] | | (avascular necrosis | | | | [address] [place], [place] | | of bone) ([facility]); | | | | [address] | | Osteomyelitis of | | | | [phone] | | knee region ([facility]); | | | | | | Asthma | +--------+---------+ + + + Anesthesia Record + + + + + | Procedure Name | Responsible | Anesthesia Start | Anesthesia Stop Time | | | Anesthesiologist | Time | | + + + + + | IRRIGATION AND | Shakila Burgos MD | 09/02/12 1407 | 09/02/12 7445 | | DEBRIDEMENT OF LEFT | | [...] D - | 09/02/12; 1624 | Adriana lA RN | Adriana Al RN | | [...] or walk. Surgery Check in Locations Admitting [facility], ninth floor [place] [facility] Surgery Check in Time: The Preoperative Medicine [...] it is after office hours, call the [facility] gum scoring machine operator at [phone] and ask them to page him or h er. Preparing For Your Surgery Video -- 7 minutes of instructions! If you have access to the Internet and would like to review our instructional video about g etting ready for your procedure day, please follow these directions: Access the [facility] website [email or web address] --> POPULAR RESOURCES --> Patient Guide --> [...] and PMHX. Document will be scanned in [employer]. Pulmonary: Within Defined Limits except as noted [...] further investigation and manageme nt. A. Acute MD within 7 days: no B. Unstable angina/Recent MD (7- 30 days): no C. Decompensated CHF: [...] no Rate of cardiac , non fatal MD, non fatal cardiac arrest (RCRI) 0 risk [...] to this patient's care. MAIRA ZHAO NP [facility] [address] [place] [address] [phone] signed by Maira Zhao NP at 08/24/2012 [...]
--- OUTSIDE RECORDS SUMMARY | ~2020-03-08 | XMS | Encounter Summary ---
Demographics + + + | Address | [address] | | | [place] [address] | + + + | Home Phone [...] Author + + + | Author | [facility] | + + + | Organization | [facility] | + + + | Address | Unknown | + + + | Phone | Unavailable | + + + Support + + + + + | Name | Relationship | Address | Phone | + + + + + | Grisel Marc | ECON | [address] | | | | | [place] | | | | | [address] | | + + + + + Care Team Providers + +------+ + | Care Electromechanisms Design Drafter Name | Role | Phone | + [...] [place] | | | | | [address] | [address] | | | | | [address] | [phone] | | | | | [place] | | | | | | [address] | | | | | | [phone] | | | +--------+ + + + [...]
--- OUTSIDE RECORDS SUMMARY | ~2020-03-08 | XMS | Encounter Summary ---
Demographics + + + | Address | [address] | | | [place] [address] | + + + | Home Phone [...] [place] | | | | | [address] | | + + + + + Care Team Providers + +------+ + | Care Automobile Brakes Bonder Name | Role | Phone | + +------+ + | Adilia Bob CONTROL ROOM TENDER | PCP | | + +------+ + Encounter Details +--------+ + + + + | Date | Type | Department | Care Team | Description | +--------+ + + + + | 03/10/ | Bus Driver | Orthopaedics at | Alton Hernandez MD | Osteomyelitis of | | 2012 | | [facility] [address] | | knee region (HCC) | | | | [address] | | (Primary Dx); | | | | Mailcode: [id number] | | Pathologic fracture | | | | [facility] | | of tibia or fibula | | | | [place], [place] | | | | | | [address] | | | | | | [phone] | | | +--------+ + + + [...] | | + +---------+ + + | [facility] | | | | | [...]
--- OUTSIDE RECORDS SUMMARY | ~2020-03-08 | XMS | Encounter Summary ---
Demographics + + + | Address | [address] | | | [place] [address] | + + + | Home Phone [...] Author + + + | Author | [facility] | + + + | Organization | [facility] | + + + | Address | Unknown | + + + | Phone | Unavailable | + + + Support + + + + + | Name | Relationship | Address | Phone | + + + + + | Grisel Marc | ECON | [address] | | | | | [place] | | | | | [address] | | + + + + + Care Team Providers + +------+ + | Care Manager Creative Name | Role | Phone | + +------+ + | Hina Peterson | PCP | | + +------+ + Encounter Details +--------+ + + + + | Date | Type | Department | Care Team | Description | +--------+ + + + + | 12/05/ | Hospital | [facility] | | | | 2015 | Encounter | Sports Medicine & | | | | | | Orthopaedic Surgery | | | | | | [address] | | | | | | [place] | | | | | | [address] | | | | | | [phone] | | | +--------+ + + + [...] drinks | 0.0 | 4 beers on [place] | | | or equivalent | | [...] methylphenidate 10 | | | 0 | /20 | | | mg oral tablet | | | | 16 | | + + + +---------+ + + documented as of this encounter Plan of Treatment Not on filedocumented as of this encounter Visit Diagnoses Not on filedocumented in this encounter"
--- OUTSIDE RECORDS SUMMARY | ~2020-03-08 | XMS | Encounter Summary ---
Demographics + + + | Address | [address] | | | [place] [address] | + + + | Home Phone [...] Author + + + | Author | [facility] | + + + | Organization | [facility] | + + + | Address | Unknown | + + + | Phone | Unavailable | + + + Support + + + + + | Name | Relationship | Address | Phone | + + + + + | Grisel Marc | ECON | [address] | | | | | [place] | | | | | [address] | | + + + + + Care Team Providers + +------+ + | Care Facility Sales And Admin Name | Role | Phone | + [...] Bonilla | | | | | [facility] | [address] | | | | | Hospital Admitting | [place], [place] | | | | | Desk Located on the | [address] | | | | | 9th floor | [phone] | | | | | [place], [place] | | | | | | [address] | Viktoriya Jennings MD | | | | | | [address] | | | | | | [facility] | | | | | | [place] [address] | | | | | | [phone] | | | | | | | | +--------+ + + + + Anesthesia Record + + + + + | Procedure Name | Responsible | Anesthesia Start | Anesthesia Stop Time | | | Anesthesiologist | Time | | + + + + + | IRRIGATION AND | Shakila Burgos MD | 09/02/12 1407 | 09/02/12 9445 | | DEBRIDEMENT OF LEFT | | [...]
--- OUTSIDE RECORDS SUMMARY | ~2020-03-08 | XMS | Encounter Summary ---
Demographics + + + | Address | [address] | | | [place] [address] | + + + | Home Phone [...] [place] | | | | | [address] | | + + + + + Care Team Providers + +------+ + | Care Instructor Of Education Name | Role | Phone | + [...]
--- OUTSIDE RECORDS SUMMARY | ~2020-03-08 | XMS | Encounter Summary ---
Demographics + + + | Address | [address] | | | [place] [address] | + + + | Home Phone | | + + + | Preferred Language | Unknown | + + + | Marital Status | Single | + + + | Mandaeism Affiliation | LUT | + + + [...] + | Grisel Marc | ECON | [address] | | | | | [place] | | | | | [address] | | + + + + + Care Team Providers + +------+ + | Care Prosthodontist/Educator Name | Role | Phone | + +------+ + | Hina Peterson | PCP | | + +------+ + Encounter Details +--------+------+ + + + | Date | Type | Department | Care Team | Description | +--------+------+ + + + | 06/25/ | Lab | Laboratory at | | Osteomyelitis of | | 2019 | | [facility] [address] | | knee region (HCC) | | | | [address] | | | | | | [place] | | | | | | [address] | | | | | | [phone] | | | +--------+------+ + + + Social History + + [...] + + documented in this encounter Results SEDIMENTATION RATE (06/25/2019 8:15 AM PST) + [...] | + + + + + | [facility] | And | [place], [place] | [phone] | | [facility] | Streets | [address] | | + + + + + C-REACTIVE PROTEIN (06/25/2019 8:15 AM PST) + +-------+ + + + | Component | Value | Ref Range | Performed | Pathologist | | | | | At | Signature | + +-------+ + + + | C-REACTIVE | 0.6 | 0.0 - 0.9 mg/dL | [facility] | | | PROTEIN | | | [...] + + | [facility] | [address] | [place], [place] | [phone] | | [facility] | [place] | [address] | | + + + + + documented in this encounter Visit Diagnoses + + | Diagnosis | + + | Osteomyelitis of knee region (HCC) Unspecified osteomyelitis, lower leg | + + documented in this encounter"
--- OUTSIDE RECORDS SUMMARY | ~2020-03-08 | XMS | Encounter Summary ---
Demographics + + + | Address | [address] | | | [place] [address] | + + + | Home Phone [...] Author + + + | Author | [facility] | + + + | Organization | [facility] | + + + | Address | Unknown | + + + | Phone | Unavailable | + + + Support + + + + + | Name | Relationship | Address | Phone | + + + + + | Grisel Marc | ECON | [address] | | | | | [place] | | | | | [address] | | + + + + + Care Team Providers + +------+ + | Care Class A Regional Drivers Name | Role | Phone | + [...] Closed | | Orthopedics | Diagnoses | Mir[facility] | FLIP | | | | | | [facility] | (FACILITY) | | | | | Osteomyeliti | [address] | [address] | | | | | s of knee | [address] | [facility] | | | | | region ([facility]) | [place], | ROAD | | | | | Rupture of | [place] | [place], [place] | | | | | anterior | [address] | [address] | | | | | cruciate | Phone: | Phone: | | | | | ligament of | [phone] | [phone] | | | | | left knee, | Fax: | | | | | | subsequent | [phone] | | | | | | encounter | | | | | | | Articular | | | | | | | cartilage | | | | | | | disorder | | | | | | | Tears of | | | | | | | meniscus and | | | | | | | [...] | + + + | Referral | | + + + Encounter Details +--------+ + + + + | Date | Type | Department | Care Team | Description | +--------+ + + + + | 01/10/ | Telephone | [facility] | Bambi Bautista | Referral | | 2020 | | Sports Medicine & | STANTON Johnson [address] [facility] | | | | | Orthopaedic Surgery | [address] | | | | | [address] | [place], [place] | | | | | [place], [place] | [address] | | | | | [address] | [phone] | | | | | [phone] | | | +--------+ + + + [...] osteomyelitis, lower leg | + + | Rupture of anterior cruciate ligament of left knee, subsequent encounter | + + | Articular cartilage disorder | + + | Tears of meniscus and anterior cruciate ligament of left knee, initial encounter | + + documented in this encounter"
--- OUTSIDE RECORDS SUMMARY | ~2020-03-08 | XMS | Encounter Summary ---
Demographics + + + | Address | [address] | | | [place] [address] | + + + | Home Phone | | + + + | Preferred Language | Unknown | + + + | Marital Status | Single | + + + | Nondenominational Affiliation | LUT | + + + [...] [place] | | | | | [address] | | + + + + + Care Team Providers + +------+ + | Care Aircraft Maintenance Manager Name | Role | Phone | + +------+ + | Hina Peterson | PCP | | + +------+ + Encounter Details +--------+--------+ + + + | Date | Type | Department | Care Team | Description | +--------+--------+ + + + | 10/07/ | Travel [...]
--- OUTSIDE RECORDS SUMMARY | ~2020-03-08 | XMS | Encounter Summary ---
Demographics + + + | Address | [address] | | | [place] [address] | + + + | Home Phone [...] [place] | | | | | [address] | | + + + + + Care Team Providers + +------+ + | Care Postdoctoral Fellow Name | Role | Phone | + +------+ + | Adilia BobP | PCP | | + +------+ + Encounter Details +--------+ + + + + | Date | Type | Department | Care Team | Description | +--------+ + + + + | 09/14/ | Abstract | Infectious | Brigid Hardy | | | 2012 | | Diseases at [facility] | [facility] | | | | | [address] | | | | | | [address] [facility] | | | | | | [place], 3rd floor | | | | | | [place], [place] | | | | | | [address] | | | | | | [phone] | | | +--------+ + + + [...]
--- OUTSIDE RECORDS SUMMARY | ~2020-03-08 | XMS | Encounter Summary ---
Demographics + + + | Address | [address] | | | [place] [address] | + + + | Home Phone [...] Author + + + | Author | [facility] | + + + | Organization | [facility] | + + + | Address | Unknown | + + + | Phone | Unavailable | + + + Support + + + + + | Name | Relationship | Address | Phone | + + + + + | Grisel Marc | ECON | [address] | | | | | [place] | | | | | [address] | | + + + + + Care Team Providers + +------+ + | Care Garland Machine Operator Name | Role | Phone | + +------+ + | Hina Peterson | PCP | | + +------+ + Encounter Details +--------+ + + + + | Date | Type | Department | Care Team | Description | +--------+ + + + + | 12/16/ | Document-Sc | [facility] | Bambi Bautista | | | 2020 | anned | Sports Medicine & Jose Enrique Johnson PA-C [address] | | | | | Orthopaedic Surgery | [address] | | | | | [address] | [place], [place] | | | | | [place], [place] | [address] | | | | | [address] | [phone] | | | | | [phone] | | | +--------+ + + + [...]
--- OUTSIDE RECORDS SUMMARY | ~2020-03-08 | XMS | Encounter Summary ---
Demographics + + + | Address | [address] | | | [place] [address] | + + + | Home Phone [...] [place] | | | | | [address] | | + + + + + Care Team Providers + +------+ + | Care Auto Roller Name | Role | Phone | + +------+ + | Adilia Bob NAVAL AIRCREWMAN | PCP | | + +------+ + [...] [facility] | | | | | region ([facility]) | Ravi | Research | | | | | Procedures | [place], [place] | Center | | | | | MRI KNEE | [address] | [place], [place] | | | | | LT WWO CONT | Phone: | [address] | | | | | | [phone] | Phone: | | | | | | Fax: | [phone] | | | | | | [phone] | Fax: | | | | | | | [phone] | +--------+--------+ + + + + Encounter Details +--------+ + + + + | Date | Type | Department | Care Team | Description | +--------+ + + + + | 08/24/ | Hospital | Diagnostic Imaging | | | | 2012 | Encounter | Services at [facility] | | | | | | [address] | | | | | | [place] | | | | | | [facility] | | | | | | [facility] [place] | | | | | | [address] | | | | | | [phone] | | | +--------+ + + + [...] subchondral | | | | | | [id number] hyperintensity | | | | | | [...] | + +---------+ + + | [facility] DEPARTMENT OF | | | | | RADIOLOGY | | | | + +---------+ + + documented in this encounter Visit Diagnoses + + | Diagnosis | + + | Osteomyelitis of knee region (HCC) Unspecified osteomyelitis, lower leg | + + documented in this encounter"
--- OUTSIDE RECORDS SUMMARY | ~2020-03-08 | XMS | Encounter Summary ---
Demographics + + + | Address | [address] | | | [place] [address] | + + + | Home Phone | | + + + | Preferred Language | Unknown | + + + | Marital Status | Single | + + + | Jehovah'S Witness Affiliation | LUT | + + + [...] [place] | | | | | [address] | | + + + + + Care Team Providers + +------+ + | Care Petroleum Engineering Teacher Name | Role | Phone | [...] | | | | | | [address] | [address] | | | | | osteomyeliti | Street | [facility] | | | | | s, lower leg | [address] | Rd [place], | | | | | L knee | [place], | [place] | | | | | | [place] [address] | [address] | | | | | | Phone: | | | | | | | [phone] | | | | | | | Fax: | | | | | | | [phone] | | +--------+--------+ + + + + Encounter Details +--------+---------+ + + + | Date | Type | Department | Care Team | Description | +--------+---------+ + + + | 12/08/ | Office | Orthopaedics at | Darrick Buitrago MD | Quadriceps | | 2012 | Visit | [facility] [address] | | tendonitis (Primary | | | | [address] | | Dx); Achilles | | | | Mailcode: [id number] | | tendonitis; | | | | [facility] [address] | | Osteomyelitis of | | | | [place], [place] | | knee region (HCC); | | | | [address] | | Septic 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| | | [phone] | | knee, left ([facility]) | +--------+---------+ + + + [...] horseback riding. However in the last w wainwright and a half she has developed some [...] seconds capillary refill. Palpable dorsalis pedis and senior oracle database developer ior tibial pulses. X-RAYS: Reviewed x-rays with [...] is full weight bearing without pain. Call in with further questions or concerns. I discussed her case with Dr. Peck who plans to c hange her to A 2x/day antibiotics given compliance and sensitivities issues considering the extensiveness of her infection. DARRICK BUITRAGO MD [facility] [address] [facility] Mailcode: [id number] [place] [address] documented in this en counter [...]
--- OUTSIDE RECORDS SUMMARY | ~2020-03-08 | XMS | Encounter Summary ---
Demographics + + + | Address | [address] | | | [place] [address] | + + + | Home Phone [...] [place] | | | | | [address] | | + + + + + Care Team Providers + +------+ + | Care Cotton Washer Name | Role | Phone | [...] Brandon | | | | | | [facility] | | | | | | [facility], | | | | | | Building | | | | | | Floor [place], [place] | | | | | | [address] | | | | | | [phone] | | | +--------+ + + + [...] Dr. Rodriguez X-Ray Yes, when: 06/04/19; where: [facility] MRI Yes, where: [facility] Via phone 07/05/19 Other Imaging (CT, Ultrasound, etc.) No Is this a W/C injury? no If YES, create referral and complete: .ORTWCNEWPATIENT inside referral Note: We do not accept WC under [place] as they do not pay at [place] rates. Other out of state claims will only be accepted if they agree to pay at [place] rates docume nted in writing from adjustor. Can you confirm the insurance we will be billing for this visit? Care [place] Note: If OHP, please note which type. E.g. [place], [place], [employer], etc. ) Reminder: Please create referrals for pts with: HMO, OHP, [place], Self-Pay, W/C, TPL an d ED Post- [...] they d like to sign up for [employer] ? Don t forget to pull in CareEveryWhere Additional Comments: documented in this encounter Plan of Treatment Not on filedocumented as of this encounter Visit Diagnoses Not on filedocumented in this encounter
--- OUTSIDE RECORDS SUMMARY | ~2020-03-08 | XMS | Encounter Summary ---
Demographics + + + | Address | [address] | | | [place] [address] | + + + | Home Phone [...] + | Grisel Marc | ECON | [address] | | | | | [place] | | | | | [address] | | + + + + + Care Team Providers + +------+ + | Care High School Math Teacher Name | Role | Phone | + +------+ + | Hina Peterson | PCP | | + +------+ + Reason for Visit + + + | Reason | Comments | + + + | ED Visit Follow-up | | + + + | Care Coordination | | + + + Encounter Details +--------+ + + + + | Date | Type | Department | Care Team | Description | +--------+ + + + + | 12/16/ | Telephone | [facility] | Tong Saba, | ED Visit Follow-up; | | 2019 | | Sports Medicine & | MD [address] | Care Coordination | | | | Orthopaedic Surgery | [address]vd [place], [place] | | | | | [address] | [address] | | | | | [place], [place] | [phone] | | | | | [address] | | | | | | [phone] | | | +--------+ + + + [...]
--- OUTSIDE RECORDS SUMMARY | ~2020-03-08 | XMS | Encounter Summary ---
Demographics + + + | Address | [address] | | | [place] [address] | + + + | Home Phone [...] [place] | | | | | [address] | | + + + + + Care Team Providers + +------+ + | Care Orthodontic Band Maker Name | Role | Phone | + +------+ + | RenardMark DO | PCP | | + +------+ + Encounter Details +--------+--------+ + + + | Date | Type | Department | Care Team | Description | +--------+--------+ + + + | 01/04/ | Travel [...]
--- OUTSIDE RECORDS SUMMARY | ~2020-03-08 | XMS | Encounter Summary ---
Demographics + + + | Address | [address] | | | [place] [address] | + + + | Home Phone [...] Author + + + | Author | [facility] | + + + | Organization | [facility] | + + + | Address | Unknown | + + + | Phone | Unavailable | + + + Support + + + + + | Name | Relationship | Address | Phone | + + + + + | Grisel Marc | ECON | [address] | | | | | [place] | | | | | [address] | | + + + + + Care Team Providers + +------+ + | Care Fiscal Analyst Name | Role | Phone | + +------+ + | Mark Glynn DO | PCP | | + +------+ + Encounter Details +--------+ + + + + | Date | Type | Department | Care Team | Description | +--------+ + + + + | 05/31/ | Document-Sc | [facility] | Kishor Monge N, | | | 2019 | anned | Sports Medicine & | MD [address] | | | | | Orthopaedic Surgery | [place] | | | | | [address] | [address] | | | | | [place] | [phone] | | | | | [address] | | | | | | [phone] | | | +--------+ + + + [...]
--- OUTSIDE RECORDS SUMMARY | ~2020-03-08 | XMS | Encounter Summary ---
Demographics + + + | Address | [address] | | | [place] [address] | + + + | Home Phone [...] Author + + + | Author | [facility] | + + + | Organization | [facility] | + + + | Address | Unknown | + + + | Phone | Unavailable | + + + Support + + + + + | Name | Relationship | Address | Phone | + + + + + | Grisel Marc | ECON | [address] | | | | | [place] | | | | | [address] | | + + + + + Care Team Providers + +------+ + | Care Steamboat Pilot Name | Role | Phone | + +------+ + | Hina Peterson | PCP | | + +------+ + Reason for Visit + + + | Reason | Comments | + + + | Follow-up visit | MRI review Rt knee | + + + Consultation (Routine) +--------+--------+ + + + + | Status | Reason | Specialty | Diagnoses / | Referred By | Referred To | | | | | Procedures | Contact | Contact | +--------+--------+ + + + + | Closed | | Orthopedics | Diagnoses | [facility] | [facility] | | | | | Unspecified | Orthopedics | Orthopedics | | | | | dislocation | We [address] | We [address] | | | | | of right | [address] | [address] | | | | | patella, | [address] | | | | | initial | [place], [place] | [place], [place] | | | | | encounter | [address] | [address] | | | | | Pain in | Phone: | Phone: | | | | | right knee | [phone] | [phone] | | | | | | Fax: | Fax: | | | | | | [phone] | [phone] | +--------+--------+ + + + + Encounter Details +--------+---------+ + + + | Date | Type | Department | Care Team | Description | +--------+---------+ + + + | 02/21/ | Office | [facility] | Mars Nicolas, | Patellar | | 2016 | Visit | Sports Medicine & | MD [address] | dislocation, right, | | | | Orthopaedic Surgery | Blvd [place], [place] | subsequent encounter | | | | [address] | [address] | (Primary Dx) | | | | [address] | [phone] | | | | | [place], [place] | | | | | | [address] | | | | | | [phone] | | | +--------+---------+ + + + [...] Instructions Patient Instructions Mars Nicolas MD - 02/22/2016 10:26 AM PDTMRI normal; your knee sh ould get better with time and use. Wear sleeve as needed. documented in this encounter Progress Notes Mars Nicolas MD - 02/22/2016 9:22 AM PDTFormatting of this note might be different fr om the original. Reason for visit; Patient presents with: Follow-up visit: MRI review Rt knee Onset/Date of Surgery; Date of Onset 08/11/15 Pain score; Pain Score: 08 - Very Severe (Pain can elevate to a 10 at times ) Vital signs; BP 110/70 | Pulse 80 | Ht 1.702 m (5' 7") | Wt 82.555 kg (182 lb) | SpO2 97% | BMI 28.5 kg/(m^2) S: Nothing new since last visit; here to discuss MRI. Pain when knee slips is sup/med ove r area of VMO. Getting L knee brace refurbished okay O: R knee wi smooth pat tracking today and good ROM X: MRI: small, insignificant cyst prox tib/fib; medial PF retinac intact A: R knee pain P: Reassurance that there is nothing structurally wrong wi R knee and that whatever dynami c thing is causing her weakness should improve with time and TLC. If it doesn't, then furth er eval / treatment options are: second opinion, trial suresh inj, or dx scope. F/u prn. Past Medical & Surgical History: Past [...] history: Sandy reports that she quit smoking about 3 weeks ago. Her smoking use included Cigarett es. She has a .5 pack-year smoking history. She has never used smokeless tobacco. She report s that she drinks alcohol. She reports that she does not use illicit drugs.. Allergies: Allergies as of 02/22/2016 - Fully Reviewed 02/22/2016 Allergen Reaction Noted Amoxicillin Diarrhea, Hives, Rash, [...] No current facility-administered medications for this visit. Cristin Marie MA - 02/22/2016 9:22 AM PDTReview of Systems Constitutional: Negative. Negative for fever and weight loss. HENT: Negative. Negative for nosebleeds and sore throat. Eyes: Negative. Respiratory: Negative. Negative for cough and shortness of breath. Cardiovascular: Negative. Negative for chest pain and leg swelling. Gastrointestinal: Negative. Negative for heartburn and blood in stool. Genitourinary: Negative. Negative for dysuria and frequency. Musculoskeletal: Positive for joint pain. Negative for falls. Skin: Negative. Negative for itching and rash. Neurological: Negative. Negative for tremors and seizures. Endo/Heme/Allergies: Negative. Psychiatric/Behavioral: Negative. Negative for depression and substance abuse. documented in this enc ounter Plan of Treatment Not on filedocumented as of this encounter Visit Diagnoses + + | Diagnosis | + + | Patellar dislocation, right, subsequent encounter - Primary | + + documented in this encounter
--- OUTSIDE RECORDS SUMMARY | ~2020-03-08 | XMS | Encounter Summary ---
Demographics + + + | Address | [address] | | | [place] [address] | + + + | Home Phone [...] [place] | | | | | [address] | | + + + + + Care Team Providers + +------+ + | Care Respiratory Manager Name | Role | Phone | [...] | | 2012 - | Encounter | [address] | | | | | | [place] | | | | 09/05/ | | [place] [address] | | | | 2012 | | [phone] | | | +--------+ + + + [...] Angel MD - 09/10/2012 8:12 AM PST [facility] IN[facility]IENT HOSPITAL DISCHARGE SUMMARY & INTERDISCIPLINARY INSTRUCTIONS Patient: Sandy Marc CSN: [id number] Admission Date: 09/02/2012 Discharge Date: 09/05/2012 Attending [...] our pleasure. David Peter MD Pager # [phone] documented in this enc ounter Discharge Instructions Instructions Sally Gupta RN - 09/04/2012Formatting of this note might be different f rom the original. ADDITIONAL INFORMATION: [facility] will provide IV antibiotics and education. They can be r eached at: [phone]. You will need to go to [facility] ([phone] - Unit C) for PICC line dressin [...] Arthritis: After Your Visit", log into your Uberpong account at [email or web address]. You can enter C265 in the Per Vices" search box. Not on Strevust? Review the MyChart section of your After Visit Summary for directions on ho w to sign up. [phone] Appiny. Care instructions adapted under license by [facility] [place]. This care instruction is for use with your licensed healthcar e professional. If you have questions about a medical condition or this instruction, always ask your healthcare professional. Appiny disclaims any warranty or liabili ty for your use of this information. Content Version: 9.5.97840; Last Revised: July 18, 2011 Patient Education [...] provider under separate cover. Anticipated OPAT Setting: [facility] [phone] f: [phone] ID/OPAT Clinic follow-up: OPAT clinic visit in 1-2 weeks after discharge in conjunction wit h [facility] Orthopedic Service. We will call to schedule this appointment after patient is disch arged. Interdisciplinary Communication: Please notify OPAT clinic 24-48 hours prior to discharge b y calling [phone] (We need anticipated discharge date & where patient is going; i.e. name, ph one, and fax for home infusion vendor, halfway facility, or daily outpatient infusio center providing outpatient antibiotic therapy services.) [facility] Department of Infectious Disease Outpatient IV Antibiotic Therapy Clinic (OPAT) Pager ID: [phone] [facility]. Mail Code L457 [place] [address] OPAT teaching note: Education and training for patient self management with a PICC line and extended use IV antibiotics I received an OPAT Clinic Consult from the Inpatient Infectious Diseases Service. I have re viewed the records and introduced myself to Sandy Marc today. I explained that I am from the OPAT (Outpatient Parenteral Antibiotic Treatment) team, an out-patient branch of [facility] Infectious Diseases team that has been [...] symptoms immediately, and if unable to contact [facility] or the infus ion service provider, then to present to the nearest ED. I verified that the patient has a primary care provider, and that they will follow-up with them following this hospitalization in regards to other medical issues such as chronic pain, diabetes, or high blood pressure for which we do not provide any care. I provided the patient with the [facility] welcome letter that reiterates the above teaching. I spent 45 minutes in education and training in patient self management for IV antibiotic a nd PICC line use with greater than 50% spent on counseling and/or coordination of care. [facility] DEPARTMENT: IDC INFECT DIS CONSULT - [id number] Place of Service: Inpatient Date of Service: 09/04/2012 CSN: [id number] Suggested Modifier: OPATC David Angel MD - [...] made with LENCHO Peter MD Pager # [phone] David Angel MD - 09/03/2012 7:53 AM [...] needs outpatient IV antibiotics x 6 weeks Dvaid Peter MD Pager # [phone] Malathi Mccauley MD - 09/03/2012 1:27 AM [...] See brief op note MALATHI BRYANT MD [facility] [place] Department of Orthopaedics & Rehabilitation [address] [place] [address] Mail Code: OP31 [facility] [address] documented in this e ncounter Plan of [...] + + + | IP CONSULT TO [facility] | Routin | 09/03/2012 | | [...] | + + + + + | [facility] | [address] | [place] [address] | | | SERVICES, CORE | [address] | | | + + + [...] [facility] | [address] | [place] [address] | | | SERVICES, CORE | [address] [...] | + + + + + | [facility] | [address] | [place] [address] | | | SERVICES, [facility] | JOY ZAMORA | | | + + + + + OPERATION RECORD (09/03/2012 2:02 PM PST) + + | Transcriptions | + + | David Peter MD - 09/03/2012 12:20 PM PST Date: 09/02/2012ttending | | Surgeon: Alton Hernandez M.D.Logistics Planning Engineer(s): aDvid | | TAQUERIA Peterreoperative Diagnosis(es):1. Left tibial [...] by | | Dr. Jerald Don in [place] on December 10, 2011. At that time, [...] the reamers. We then used our canal siebel architect | | to thoroughly wash out the [...] | | Thiago, M.Engr.General Orthopaedics, Trauma / [id number] / [id number] / [id number] /D: | | 09/02/2012T: 09/03/2012 | | | | | + + X-RAY PORTABLE CHEST 1 VIEW (09/03/2012 9:51 AM PST) + + + + + + | Component | Value | Ref Range | Performed | Pathologist | | | | | At | Signature | + + + + + + | X-RAY | STUDY: IA CHEST 1 VIEW | | | | [...] (Unit/Room #): | | | 9k Diagnosis: 044299 Osteomyelitis of knee region 320351 AVN | | | (avascular necrosis of bone) 041387 Pathologic fracture of tibia or | | | fibula 906840 Septic arthritis of knee, left Indications: (Select [...] Lot # (or | | | Sticker): [id number] INSERTION SITE: - Basilic Left Local | [...] 09/03/2012Start Time: 0900Patient Location (Unit/Room #): 9kDiagnosis: 100987 | | Osteomyelitis of knee [id number] AVN (avascular necrosis of bone)404737 Pathologic | | fracture of tibia or [id number] Septic arthritis of knee, leftIndications: (Select all [...] CATHETERProduct | | Name: Lobo: Single4 Fr60cm Wjru7ox TrimmedLot # (or Sticker): | | [id number] SITE: - BasilicLeftLocal anesthetic used: lidocaineSedation used: [...] |8cm Trimmed | |Lot # (or Sticker): [id number] | | | |INSERTION SITE: - Basilic [...] | + + + + + | [facility] | [address] | [place] [address] | | | SERVICES, CORE | JOY [...] | + + + + + | [facility] | [address] | [place] [address] | | | MERCEDES, ELLIE | JOY [...] | | | Final SMEAR:No | | [place] | | | | fungal elements seen [...] + | [facility] - | [address] | [place] [address] | | | [facility] | | | | + + [...] + | [facility] - | [address] | [place] [address] | | | [place] | | | [...] + | [facility] - | [address] | [place] [address] | | | [place] | | | | + + + [...] + | [facility] - | [address] | [place] [address] | | | [place] | | | | + + + [...] | | RESULT | Tissue | | [facility] - | | | | Final SMEAR:No | | [place] | | | | fungal elements seen [...] + | [facility] - | [address] | [place] [address] | | | [place] | | | [...] | + + + + + | [facility] - | [address] | [place] [address] | | | [place] | | | [...] + | [facility] - | [address] | [place] [address] | | | [place] | | | | + + + [...] | + + + + + | [facility] - | [address] | [place] [address] | | | [place] | | | [...] | + + + + + | [facility] - | [address] | [place] [address] | | | [place] | | | | + + + [...] | | | Final SMEAR:No | | [place] | | | | fungal elements seen [...] + | [facility] - | [address] | [place] [address] | | | [facility] | | | | + + [...] | | Final SMEAR:AFB not | | [place] | | | | detected source: left [...] + | [facility] - | [address] | [place] [address] | | | [place] | | | [...] + | [facility] - | [address] | [place] [address] | | | [place] | | | [...] + | [facility] - | [address] | [place] [address] | | | [place] | | | | + + + [...] | | Final SMEAR:AFB not | | [place] | | | | detected source: left [...] | + + + + + | [facility] - | [address] | [place] [address] | | | [facility] | | | | + + + [...] + | [facility] - | [address] | [place] [address] | | | [place] | | | | + + + [...] | | Final SMEAR:No | | [facility] | | | | fungal elements [...] + | [facility] - | [address] | [place] [address] | | | [place] | | | [...] | | Final SMEAR:AFB not | | [place] | | | | detected source: left [...] + | [facility] - | [address] | [place] [address] | | | [place] | | | | + + + [...] + | [facility] - | [address] | [place] [address] | | | [place] | | | | + + + [...] | + + + + + | [facility] - | [address] | [place] [address] | | | [place] | | | [...] + | [facility] - | [address] | [place] [address] | | | [place] | | | | + + + [...] | | Final GRAM STAIN:No | | [place] | | | | squamous epithelial | [...] + | [facility] - | [address] | [place] [address] | | | [place] | | | | + + + [...] | | | Final SMEAR:No | | [place] | | | | fungal elements seen [...] + | [facility] - | [address] | [place] [address] | | | [place] | | | | + + + [...] + | [facility] - | [address] | [place] [address] | | | [place] | | | [...] | | Final GRAM STAIN:No | | [place] | | | | squamous epithelial | [...] + | [facility] - | [address] | [place] [address] | | | [place] | | | | + + + [...] | | | Final SMEAR:No | | [place] | | | | fungal elements seen [...] + | [facility] - | [address] | [place] [address] | | | [place] | | | [...] + | [facility] - | [address] | [place] [address] | | | [facility] | | | | + + [...] | + + + + + | [facility] - | [address] | [place] [address] | | | [place] | | | [...] + | [facility] - | [address] | [place] [address] | | | [place] | | | [...] | | Final SMEAR:AFB not | | [place] | | | | detected source: left [...] + | [facility] - | [address] | [place] [address] | | | [place] | | | | + + + [...] | + + + + + | [facility] - | [address] | [place] [address] | | | [place] | | | [...] | | | Final CULTURE | | [place] | | | | RESULT:No growth | [...] + | [facility] - | [address] | [place] [address] | | | [place] | | | | + + + [...] | + + + + + | [facility] | [address] | [place] [address] | | | PATHOLOGY | [address] | | | + + + + + documented in this encounter Visit Diagnoses + + | Diagnosis | + + | Osteomyelitis of knee region (HCC) - Primary Unspecified osteomyelitis, lower leg | + + | AVN (avascular necrosis of bone) ([facility]) Aseptic necrosis of bone, site unspecified | + + | Pathologic fracture of tibia or fibula Pathologic fracture of tibia and fibula | + + | Septic arthritis of knee, left ([facility]) Pyogenic arthritis, lower leg | + + [...]
--- OUTSIDE RECORDS SUMMARY | ~2020-03-08 | XMS | Encounter Summary ---
Demographics + + + | Address | [address] | | | [place] [address] | + + + | Home Phone [...] + | Grisel Marc | ECON | [address] | | | | | [place] | | | | | [address] | | + + + + + Care Team Providers + +------+ + | Care Shearing Shed Worker Name | Role | Phone | [...] | | dislocation, | [address] | | | | | right, | [address] | [place], | | | | | initial | [place], | [place] [address] | | | | | encounter | [place] | Phone: | | | | | Procedures | [address] | [phone] | | | | | PHYSICAL | Phone: | Fax: | | | | | THERAPY | [phone] | [phone] | | | | | REFERRAL | Fax: | | | | | | | [phone] | | +--------+--------+ + + + + [...] | | | | | | [place] [address] | [address] | | | | | | Phone: | Phone: | | | | | | [phone] | [phone] | | | | | | Fax: | Fax: | | | | | | [phone] | [phone] | +--------+--------+ + + + + Encounter [...] | | | [address] | [address] | dislocation, right, | | | | [place] [address] | [phone] | initial encounter | | | | [place] | | | | | | [address] | | | | | | [phone] | | | +--------+---------+ + + + [...] scanned document for refe crow. Social history: Sandy reports that she has [...] | + + + | [address] [place] [address] | [facility] | | [place] [address] | DEPARTMENT OF | | [phone] Name: SANDY MARC Phys: | RADIOLOGY | | CINTHYA NICOLAS : 1990 Sex: F | | | CSN: [id number] MR# [id number] Exam Date: | | | 12/06/2015 EXAM: [...] Transcribed Date/Time: | | | 12/06/2015 15:56 Enrollment Eligibility Representative: YORDY | | + + + + + | Procedure Note | + + | Interface, Radiology Results - 12/06/2015 4:01 PM PDT [address] | | [address] [place] [address] | | Name: SANDY MARC Phys: CINTHYA NICOLAS : 1990 Sex: F | | CSN: [id number] MR# [id number] Exam Date: 12/06/2015 EXAM:X-RAY KNEE 3 VIEWS [...] VENDOR SYSTEM 12/06/2015 | | Reported by: Magon [place] MD Electronically signed by: Magno [place] [...] | | |Transcribed Date/Time: 12/06/2015 15:56 | |Enrollment Eligibility Representative: FLUENCY | | | | | [...]
--- OUTSIDE RECORDS SUMMARY | ~2020-03-08 | XMS | Encounter Summary ---
Demographics + + + | Address | [address] | | | [place] [address] | + + + | Home Phone [...] [place] | | | | | [address] | | + + + + + Care Team Providers + +------+ + | Care Student Career Development Specialist Name | Role | Phone | [...]
--- OUTSIDE RECORDS SUMMARY | ~2020-03-08 | XMS | Encounter Summary ---
Demographics + + + | Address | [address] | | | [place] [address] | + + + | Home Phone [...] + + + | Author | [facility] | + + + | Organization | [facility] | + + + | Address | Unknown | + + + | Phone | Unavailable | + + + Support + + + + + | Name | Relationship | Address | Phone | + + + + + | Grisel Marc | ECON | [address] | | | | | [place] | | | | | [address] | | + + + + + Care Team Providers + +------+ + | Care Concrete Mixing Plant Laborer Name | Role | Phone | + [...] | | | | | Health | [facility] | | | | | | Associates | Rd | | | | | | [address] | [place], [place] | | | | | | [address], [address] | [address] | | | | | | [place], | | | | | | | [place] [address] | | | | | | | Phone: | | | | | | | [phone] | | | | | | | Fax: | | | | | | | [phone] | | +--------+--------+ + + + + [...] | | | | [address] | [place] [address] | | | | | Physician's | [phone] | | | | | [place], 4th floor | | | | | | [place], [place] | | | | | | [address] | | | | | | [phone] | | | +--------+---------+ + + + [...] FOLLOW UP Referrring Physician: Alton Hernandez MD [address] [place] [address] Primary Care Physician: [facility] [address], [address] [place] [address] Ms. Marc presents to Infectious Diseases Clinic regarding scheduled follow up. Please refer to prior documentation including inpatient OPAT teaching note, outpatient OPAT blood bank order control clerk for antibiotic therapy, lab monitoring History other than "Interim History" below is directly copied from previous ID notes to darya mcdonough. In addition I reviewed the history from the patient's [facility] admiss ion, including but not limited [...] placement of antibiotic beads 09/03/2012: HIRAM Woodbuddy [facility] Operative Findings: There were no gross [...] She was seen in the ER in [place] and had a CT Thor ax that [...] Marc follow up in Infectious Diseases Clinic [place] I spent 20 minutes in a face-to face visit with the patient, with over 50% of time spen t in councelling the patient. We discussed infection, antibiotics, duration of therapy, lab results, and follow-up planning, as described above. ZOEY PECK MD INFECTIOUS DISEASES [address] [place] [address] Mailcode: L608 [place] [address] documented in this e ncounter Plan of Treatment Not on filedocumented as of this encounter Visit Diagnoses + + | Diagnosis | + + | Osteomyelitis of knee region (HCC) - Primary Unspecified osteomyelitis, lower leg | + + documented in this encounter
--- OUTSIDE RECORDS SUMMARY | ~2020-03-08 | XMS | Encounter Summary ---
Demographics + + + | Address | [address] | | | [place] [address] | + + + | Home Phone [...] + + + | Author | [facility] | + + + | Organization | [facility] | + + + [...] [place] | | | | | [address] | | + + + + + Care Team Providers + +------+ + | Care Laboratory Operations Coordinator Name | Role | Phone | + +------+ + | No Pcp Per Patient | PCP | Unavailable | + +------+ + Encounter Details +--------+ + + + + | Date | Type | Department | Care Team | Description | +--------+ + + + + | 07/21/ | Services Program Manager | Orthopaedics at | Alton Hernandez MD | Leg pain (Primary | | 2011 | | [facility] [address] | | Dx) | | | | [address] | | | | | | Mailcode: PV430 | | | | | | [facility] | | | | | | [place], [place] | | | | | | [address] | | | | | | [phone] | | | +--------+ + + + [...]
--- OUTSIDE RECORDS SUMMARY | ~2020-03-08 | XMS | Encounter Summary ---
Demographics + + + | Address | [address] | | | [place] [address] | + + + | Home Phone [...] [place] | | | | | [address] | | + + + + + Care Team Providers + +------+ + | Care Cake Decorator Name | Role | Phone | + [...] | [place] | | | | | [address] | | | | | | Loop Physician's | | | | | | [place], 3rd floor | | | | | | [place], [place] | | | | | | [address] | | | | | | [phone] | | | +--------+ + + + [...] | + +---------+ + + | SONIA INERNESTO GORMAN | | | | + +---------+ + + documented in this encounter Visit Diagnoses Not on filedocumented in this encounter"
--- OUTSIDE RECORDS SUMMARY | ~2020-03-08 | XMS | Encounter Summary ---
Demographics + + + | Address | [address] | | | [place] [address] | + + + | Home Phone [...] [place] | | | | | [address] | | + + + + + Care Team Providers + +------+ + | Care Return Agent Airport Name | Role | Phone | + [...] + + + + | 09/04/ | Hide Mill Man | Infectious | Brigid Hardy | | | 2012 | | Diseases at [facility] | [place] | | | | | [address] | | | | | | Loop Physician's | | | | | | [address], 3rd floor | | | | | | [place], [place] | | | | | | [address] | | | | | | [phone] | | | +--------+ + + + [...]
--- OUTSIDE RECORDS SUMMARY | ~2020-03-08 | XMS | Encounter Summary ---
Demographics + + + | Address | [address] | | | [place] [address] | + + + | Home Phone [...] + | Grisel Marc | ECON | [address] | | | | | [place] | | | | | [address] | | + + + + + Care Team Providers + +------+ + | Care Drying Room Operator Name | Role | Phone | [...] | | | | Selene Villalta | [address] | | | | | [address] [address] | [phone] | | | | | [place] | | | | | | [address] | | | | | | [phone] | | | +--------+ + + + [...]
--- OUTSIDE RECORDS SUMMARY | ~2020-03-08 | XMS | Encounter Summary ---
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 Patient was located in the [facility] at the time of the visit. Telepresenter (relative and/or sequins winder) was not used during the visit. The [...] and required multiple surgeries I believe at [facility] to clear this infection over the next 1-2 years. The infection resolved but she has had a painful knee fo r some time. 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 The patient was seen in the office on 06/25/[address] Saba. She was referred to [facility] for possible osteochondral allograft, reconstruction. The patient has been working on smok ing cessation but unfortunately has started to smoke again recently. [facility] will not see the patient until she has documentation of smoking cessation. The patient reports she experienced a pop in her left knee and increased pain on 09/25/2019, she went to [facility] ED in [place], [place] for further evaluation. The patient reports [...] file Gets together: Not on file Attends cheondoism service: Not on file Active member of [...] History Narrative Lives with her parents in [place]. Has adequate support should surgery be [...] normal stability on varus /valgus stress examination [facility] Radiology: X-ray examination Left knee 06/04/19 demonstrates [place] changes and mild medial joint space narrowing. There are sclerotic changes noted tibial and femur MRI left knee from [facility] in [place] demonstrates Chronic ACL tear and medial join [...] She was encouraged to follow up with [facility] for possible osteochondral allograft and reconstructio n surgery. She will continue to work on smoking cessation, as this is required for [facility]. T he patient reports she is required [...] an effort to get her in to [facility]. Follow up: PRN, pt instructed to contact the clinic once smoking cessation is complete for new referral to [facility], or if she has any additional questions or concerns. I spent 20 minutes reviewing the patient s query, recent records, relevant images/results , communicating with the patient about their chief complaint & performing documentation. Bambi Bautista PA-C Orthopedic Physician Salvager [facility] Orthopaedics and Rehabilitation [facility] Orthopaedics and Sports Medicine [address] [place] [address] Office: [phone] documented in this encoun ter Plan of [...]
--- OUTSIDE RECORDS SUMMARY | ~2020-03-08 | XMS | Encounter Summary ---
Demographics + + + | Address | [address] | | | [place] [address] | + + + | Home Phone [...] [place] | | | | | [address] | | + + + + + Care Team Providers + +------+ + | Care Telegrapher Agent Name | Role | Phone | [...] | | | | necrosis of | [facility] | [place] | | | | | bone) ([facility]) | Rd | [address] | | | | | Septic | [place], [place] | [place], | | | | | 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[address] | [place] [address] | | | | | knee, left | | Phone: | | | | | ([facility]) | | [phone] | | | | | Procedures | | Fax: | | | | | CONSULT TO | | [phone] | | | | | INFECTIOUS | [...] | long-term (current) | | | | [place], [place] | | use of antibiotics | | | | [address] | | | | | | [phone] | | | +--------+---------+ + + + [...] DISEASES CLINIC FOLLOW UP Primary Care Physician: [facility] [address] [place] [address], [address] [place] [address] Ms. Marc presents to Infectious Diseases Clinic [...] doing rodeo on her horse going around [employer], and she was leaning out away from t he [employer]. Her legs spontaneously broke with pathological fracture. [...] placement of antibiotic beads 09/03/2012: HIRAM Silva [facility] Operative Findings: We began [...] amedullary canal. We then used our canal pit furnace operator to thoroughly washout the intramedullary canal [...] She was seen in the ER in [place] and had a CT Thor ax that [...] d follow-up planning. Brigid Hardy PA-C [facility] Department of Infectious Diseases Outpatient IV Antibiotic Therapy Clinic (OPAT) [phone] Pager ID: [phone] [facility] Mail Code F657 [place] [address] documented in this encounter Plan of Treatment [...]
--- OUTSIDE RECORDS SUMMARY | ~2020-03-08 | XMS | Encounter Summary ---
Demographics + + + | Address | [address] | | | [place] [address] | + + + | Home Phone [...] Author + + + | Author | [facility] | + + + | Organization | [facility] | + + + | Address | Unknown | + + + | Phone | Unavailable | + + + Support + + + + + | Name | Relationship | Address | Phone | + + + + + | Grisel Marc | ECON | [address] | | | | | [place] | | | | | [address] | | + + + + + Care Team Providers + +------+ + | Care Technical Sales Advisor Name | Role | Phone | + +------+ + | Adilia Bob TAR AND AMMONIA PUMP OPERATOR | PCP | | + +------+ + Encounter Details +--------+ + + + + | Date | Type | Department | Care Team | Description | +--------+ + + + + | 12/08/ | Life Manager | Infectious | Lavinia Peck, | Osteomyelitis of | | 2012 | | Diseases at [facility] | MD [address] | knee region (HCC) | | | | [address] | [address] | (Primary Dx) | | | | [address] | [place] [address] | | | | | [address], [address] [place] [address] | [phone] | | | | | [place], [place] | | | | | | [address] | | | | | | [phone] | | | +--------+ + + + [...]
--- OUTSIDE RECORDS SUMMARY | ~2020-03-08 | XMS | Encounter Summary ---
Demographics + + + | Address | [address] | | | [place] [address] | + + + | Home Phone [...] + | Grisel Marc | ECON | [address] | | | | | [place] | | | | | [address] | | + + + + + Care Team Providers + +------+ + | Care Needle Loom Weaver Name | Role | Phone | [...] + + | 01/12/ | Telephone | [facility] | Bambi Bautista | Referral | | 2020 | | Sports Medicine & | STANTON Johnson [address] | | | | | Orthopaedic Surgery | [address] | | | | | [address] | [place], [place] | | | | | [place], [place] | [address] | | | | | [address] | [phone] | | | | | [phone] | | | +--------+ + + + [...]
--- OUTSIDE RECORDS SUMMARY | ~2020-03-08 | XMS | Encounter Summary ---
Demographics + + + | Address | [address] | | | [place] [address] | + + + | Home Phone [...] [place] | | | | | [address] | | + + + + + Care Team Providers + +------+ + | Care Asset Protection Specialist Name | Role | Phone | [...] [facility] | | | | | | [address] | | | | | | [address] | | | | | | [place], [facility] Floor | | | | | | [place], [place] | | | | | | [address] | | | | | | [phone] | | | +--------+ + + + [...] X-RAY TIBIA & FIBULA | Routin | 03/11/2013 | Osteomyelitis of | Results for this | | 2 VIEWS LT | e | 1:31 PM | knee [...]
--- OUTSIDE RECORDS SUMMARY | ~2020-03-08 | XMS | Encounter Summary ---
Demographics + + + | Address | [address] | | | [place] [address] | + + + | Home Phone [...] [place] | | | | | [address] | | + + + + + Care Team Providers + +------+ + | Care Burner Operator Name | Role | Phone | [...] | | | | necrosis of | [facility] | [place] | | | | | bone) ([facility]) | Rd | [address] | | | | | Septic | [place], [place] | [place], | | | | | 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[address] | [place] [address] | | | | | knee, left | | Phone: | | | | | ([facility]) | | [phone] | | | | | Procedures | | Fax: | | | | | CONSULT TO | | [phone] | | | | | INFECTIOUS | [...] | long-term (current) | | | | [place], [place] | | use of antibiotics | | | | [address] | | | | | | [phone] | | | +--------+---------+ + + + [...] DISEASES CLINIC FOLLOW UP Primary Care Physician: [facility] [address] [place] [address], [address] [place] [address] Ms. Marc presents to Infectious Diseases Clinic [...] doing rodeo on her horse going around [employer], and she was leaning out away from t he [employer]. Her legs spontaneously broke with pathological fracture. [...] amedullary canal. We then used our canal stable helper to thoroughly washout the intramedullary canal as [...] She was seen in the ER in [place] and had a CT Thor ax that [...] an d follow-up planning. Brigid Hardy PA-C [facility] Department of Infectious Diseases Outpatient IV Antibiotic Therapy Clinic (OPAT) [phone] Pager ID: [phone] [facility] Mail Code [id number] [place] [address] documented in this encounter Plan of Treatment [...]
--- OUTSIDE RECORDS SUMMARY | ~2020-03-08 | XMS | Encounter Summary ---
Demographics + + + | Address | [address] | | | [place] [address] | + + + | Home Phone | | + + + | Preferred Language | Unknown | + + + | Marital Status | | + + + | Muslim Affiliation | Unknown | + + + | Race | Unknown | + + + | Ethnic Group | Unknown | + + + Author + + + | Author | [facility] | | | and [place] | + + + | Organization | [facility] | | | [...] Team Providers + +------+ + | Care Turbine Inspector Name | Role | Phone | [...] Provider Unknown | | | | | [place], [place] | [phone] | | | | | [address] | | | | | | [phone] | | | +--------+ + + + [...] on file | | + + + documented as of this encounter Plan of Treatment Not on filedocumented as of this encounter Visit Diagnoses Not on filedocumented in this encounter"
--- OUTSIDE RECORDS SUMMARY | ~2020-03-08 | XMS | Encounter Summary ---
Demographics + + + | Address | [address] | | | [place] [address] | + + + | Home Phone [...] Author + + + | Author | [facility] | + + + | Organization | [facility] | + + + | Address | Unknown | + + + | Phone | Unavailable | + + + Support + + + + + | Name | Relationship | Address | Phone | + + + + + | Grisel Marc | ECON | [address] | | | | | [place] | | | | | [address] | | + + + + + Care Team Providers + +------+ + | Care Weight Recorder Name | Role | Phone | + [...] [place] | | | | | | [address] | | | | | | [phone] | | | +--------+------+ + + + [...] | + + + + + | [facility] | And | [place], [place] | [phone] | | [facility] | Streets | [address] | | + + + + + C-REACTIVE PROTEIN (06/25/2019 8:15 AM PST) + +-------+ + + + | Component | Value | Ref Range | Performed | Pathologist | | | | | At | Signature | + +-------+ + + + | C-REACTIVE | 0.6 | 0.0 - 0.9 mg/dL | [facility] | | | PROTEIN | | | [...] + + | [facility] | [address] | [place], [place] | [phone] | | [facility] | [place] | [address] | | + + + + + documented in this encounter Visit Diagnoses + + | Diagnosis | + + | Osteomyelitis of knee region (HCC) Unspecified osteomyelitis, lower leg | + + documented in this encounter"
--- OUTSIDE RECORDS SUMMARY | ~2020-03-08 | XMS | Encounter Summary ---
Demographics + + + | Address | [address] | | | [place] [address] | + + + | Home Phone [...] [place] | | | | | [address] | | + + + + + Care Team Providers + +------+ + | Care Dramatic Coach Name | Role | Phone | + +------+ + | Adilia Bob PATTERN TECHNICIAN | PCP | | + +------+ + Encounter Details +--------+ + + + + | Date | Type | Department | Care Team | Description | +--------+ + + + + | 12/08/ | Combustion Engineer | Infectious | Lavinia Peck, | Osteomyelitis of | | 2012 | | Diseases at [facility] | MD [address] | knee region (HCC) | | | | [address] | [address] | (Primary Dx) | | | | [address] | [place] [address] | | | | | [address], [address] [place] [address] | [phone] | | | | | [place], [place] | | | | | | [address] | | | | | | [phone] | | | +--------+ + + + [...]
--- OUTSIDE RECORDS SUMMARY | ~2020-03-08 | XMS | Encounter Summary ---
Demographics + + + | Address | [address] | | | [place] [address] | + + + | Home Phone [...] + | Grisel Marc | ECON | [address] | | | | | [place] | | | | | [address] | | + + + + + Care Team Providers + +------+ + | Care Front Maker Name | Role | Phone | + +------+ + | Mark Glynn DO | PCP | | + +------+ + Encounter Details +--------+ + + + + | Date | Type | Department | Care Team | Description | +--------+ + + + + | 03/13/ | Document-Sc | [facility] [address] | Unknown . | | | 2016 | anned | [address] [place], | | | | | | [place] [address] | | | +--------+ + + + [...]
--- OUTSIDE RECORDS SUMMARY | ~2020-03-08 | XMS | Encounter Summary ---
Demographics + + + | Address | [address] | | | [place] [address] | + + + | Home Phone [...] [place] | | | | | [address] | | + + + + + Care Team Providers + +------+ + | Care Manager Surgery Name | Role | Phone | + [...]
--- OUTSIDE RECORDS SUMMARY | ~2020-03-08 | XMS | Encounter Summary ---
Demographics + + + | Address | [address] | | | [place] [address] | + + + | Home Phone [...] [place] | | | | | [address] | | + + + + + Care Team Providers + +------+ + | Care Nurse Private Duty Name | Role | Phone | + [...] | | | | necrosis of | [facility] | [place] | | | | | bone) ([facility]) | Rd | [address] | | | | | Septic | [place], [place] | [place], | | | | | 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[address] | [place] [address] | | | | | knee, left | | Phone: | | | | | ([facility]) | | [phone] | | | | | Procedures | | Fax: | | | | | CONSULT TO | | [phone] | | | | | INFECTIOUS | [...] | long-term (current) | | | | [place], [place] | | use of antibiotics | | | | [address] | | | | | | [phone] | | | +--------+---------+ + + + [...] DISEASES CLINIC FOLLOW UP Primary Care Physician: [facility] [address], [address] [place] [address] Ms. Marc presents to Infectious Diseases Clinic regarding scheduled follow up. The patient was seen in conjunction with Dr. Alton Hernandez today. The following history was obtained prior to today's OPAT visit from my own review of the bethany perez's recent [facility] hospital admission, including but not limited to [...] doing rodeo on her horse going around [email or web address], and she was leaning out away from [employer]. Her legs spontaneously broke with pathological fracture. [...] of antibiotic beads 09/03/2012: HIRAM Silva [facility] Operative Findings: We began by performing a [...] intramedullary canal. We then used our canal supervisor telephone information to thoroughly washout the intramedullary canal as [...] She was seen in the ER in [place] and had a CT Thor ax that [...] care provider and surgeon. Brigid Hardy PA-C [facility] Department of Infectious Diseases Outpatient IV Antibiotic Therapy Clinic (OPAT) [phone] Pager ID: [phone] Mail Code [address] [place] [address] documented in this encounter Plan of Treatment Not on filedocumented as of this encounter Visit Diagnoses + + | Diagnosis | + + | Osteomyelitis of knee region (HCC) - Primary Unspecified osteomyelitis, lower leg | + + | Encounter for long-term (current) use of antibiotics | + + documented in this encounter
--- OUTSIDE RECORDS SUMMARY | ~2020-03-08 | XMS | Encounter Summary ---
Demographics + + + | Address | [address] | | | [place] [address] | + + + | Home Phone [...] + + + | Author | [facility] | + + + | Organization | [facility] | + + [...] [place] | | | | | [address] | | + + + + + Care Team Providers + +------+ + | Care Embossing Clerk Name | Role | Phone | + +------+ + | Adilia Bob STERILE PROCESSING TECH | PCP | | + +------+ + Encounter Details +--------+ + + + + | Date | Type | Department | Care Team | Description | +--------+ + + + + | 10/13/ | Well Drill Operator Helper Cable Tool | Orthopaedics at | Alton Hernandez MD | Osteomyelitis of | | 2012 | | [facility] [address] | | knee region (HCC) | | | | [address] | | (Primary Dx) | | | | Mailcode: [id number] | | | | | | [facility] [address] | | | | | | [place], [place] | | | | | | [address] | | | | | | [phone] | | | +--------+ + + + [...] | | + +---------+ + + | [facility] DEPARTMENT OF | | | | | RADIOLOGY | | | | + +---------+ + + documented in this encounter Visit Diagnoses + + | Diagnosis | + + | Osteomyelitis of knee region (HCC) - Primary Unspecified osteomyelitis, lower leg | + + documented in this encounter"
--- OUTSIDE RECORDS SUMMARY | ~2020-03-08 | XMS | Encounter Summary ---
Demographics + + + | Address | [address] | | | [place] [address] | + + + | Home Phone [...] [place] | | | | | [address] | | + + + + + Care Team Providers + +------+ + | Care Electrical Engineering Intern Name | Role | Phone | [...] AND | | 2012 | | [facility] | | DEBRIDEMENT OF LEFT | | | | Rd [address] | | PROXIMAL TIBIAL WITH | | | | Hospital Admitting | | PLACEMENT OF CASO4 | | | | Desk Located on the | | ANTIBIOTICS BEADS; | | | | 9th floor | | microbiology x 11 | | | | [place], [place] | | | | | | [address] | | | +--------+---------+ + + + [...] Angel MD - 09/10/2012 8:12 AM PST [facility] DEPARTMENT OF ORTHOPAEDICS & REHABILITATION INPATIENT HOSPITAL DISCHARGE SUMMARY & INTERDISCIPLINARY INSTRUCTIONS Patient: Sandy Marc CSN: [id number] Admission Date: 09/02/2012 Discharge Date: 09/05/2012 Attending Physician: Alton Hernandez MD PCP: SAEED Presley Service: [facility] Orthopaedics & Rehabilitation Diagnoses Principal Final Diagnosis: [...] for > 5 years. , Historical Med [facility] Orthopaedic Service Pain Policy At the 6-week [...] our pleasure. David Peter MD Pager # [phone] documented in this enc ounter Discharge Instructions Instructions Sally Gupta RN - 09/04/2012Formatting of this note might be different f rom the original. ADDITIONAL INFORMATION: [facility] will provide IV antibiotics and education. They can be r eached at: [phone]. [facility][phone] - Unit C) for PICC line dressin [...] Arthritis: After Your Visit", log into your [employer] account at [email or web address]. You can enter [id number] in the [employer] Library" search box. Not on [employer]? Review the MyChart section of your After Visit Summary for directions on aysha norris to sign up. [id number] [employer]. Care instructions adapted under license by [facility]. This care instruction is for use with your licensed healthcar e professional. If you have questions about a medical condition or this instruction, always ask your healthcare professional. [employer] disclaims any warranty or liabili ty for your use of this information. Content Version: 9.5.21636; Last Revised: July 18, 2011 Patient Education [...] provider under separate cover. Anticipated OPAT Setting: [facility] [phone] f: [phone] ID/OPAT Clinic follow-up: OPAT clinic visit in 1-2 weeks after discharge in conjunction wit h [facility] Orthopedic Service. We will call to schedule this appointment after patient is disch arged. Interdisciplinary Communication: Please notify OPAT clinic 24-48 hours prior to discharge b y calling [phone] (We need anticipated discharge date & where patient is going; i.e. name, ph one, and fax for home infusion vendor, chcf facility, or daily outpatient infusio n center providing outpatient antibiotic therapy services.) [facility] Department of Infectious Disease Outpatient IV Antibiotic Therapy Clinic (OPAT) Pager ID: [phone] [facility] Ravi. Mail Code D494 [place] [address] OPAT teaching note: Education and training for [...] symptoms immediately, and if unable to contact [facility] or the infus ion service provider, then to present to the nearest ED. I verified that the patient has a primary care provider, and that they will follow-up with them following this hospitalization in regards to other medical issues such as chronic pain, diabetes, or high blood pressure for which we do not provide any care. I provided the patient with the [facility] welcome letter that reiterates the above teaching. I spent 45 minutes in education and training in patient self management for IV antibiotic a nd PICC line use with greater than 50% spent on counseling and/or coordination of care. [facility] DEPARTMENT: IDC INFECT DIS CONSULT - [id number] Place of Service: Inpatient Date of Service: 09/04/2012 CSN: [id number] Suggested Modifier: OPATC David Angel MD - [...] made with LENCHO Peter MD Pager # [phone] David Angel MD - 09/03/2012 7:53 AM [...] 6 weeks David Peter MD Pager # [phone] Malathi Mccauley MD - 09/03/2012 1:27 AM [...] See brief op note MALATHI BRYANT MD [facility] Department of Orthopaedics & Rehabilitation [address] [place] [address] Mail Code: OP31 [facility] [address] documented in this e ncounter Plan of [...] + + | IP CONSULT TO [facility] | Routin | 09/03/2012 | [...] | + + + + + | [facility] | [address] | [place] [address] | | | ELLIE LONG | JOY [...] [facility] | [address] | [place] [address] | | | SERVICES, ELLIE | PARK [...] | + + + + + | [facility] Q.branch | [address] | [place] [address] | | | SERVICES, CORE | [address] | | | + + + + + OPERATION RECORD (09/03/2012 2:02 PM PST) + + | Transcriptions | + + | David Peter MD - 09/03/2012 12:20 PM PST Date: 09/02/2012ttending | | Surgeon: Alton Hernandez M.D.Hogshead Builder(s): David | | TAQUERIA Peterreoperative Diagnosis(es):1. Left [...] by | | Dr. Jerald Don in [place] on December 10, 2011. At that time, [...] the reamers. We then used our canal cnc laser operator | | to thoroughly wash out the [...] Thiago, M.Engr.General Orthopaedics, Trauma JUAN C / [id number] / [id number] / [id number] /D: | | 09/02/2012T: 09/03/2012 | | | | | + + X-RAY PORTABLE CHEST 1 VIEW (09/03/2012 9:51 AM PST) + + + + + + | Component | Value | Ref Range | Performed | Pathologist | | | | | At | Signature | + + + + + + | X-RAY | STUDY: CA CHEST 1 VIEW | | | | [...] (Unit/Room #): | | | 9k Diagnosis: [id number] Osteomyelitis of knee region [id number] AVN | | | (avascular necrosis of bone) 332366 Pathologic fracture of tibia or | | | fibula 060595 Septic arthritis of knee, left Indications: (Select [...] Lot # (or | | | Sticker): [id number] INSERTION SITE: - Basilic Left Local | [...] 09/03/2012Start Time: 0900Patient Location (Unit/Room #): 9kDiagnosis: [id number] | | Osteomyelitis of knee [id number] AVN (avascular necrosis of bone)[id number] Pathologic | | fracture of tibia or [id number] Septic arthritis of knee, leftIndications: (Select all [...] CATHETERProduct | | Name: KrystianLisction: Darian Fr60cm Botd1jb TrimmedLot # (or Sticker): | | [id number] SITE: - BasilicLeftLocal anesthetic used: lidocaineSedation used: [...] |8cm Trimmed | |Lot # (or Sticker): [id number] | | | |INSERTION SITE: - Basilic [...] [facility] | [address] | [place] [address] | | | SERVICES, CORE | PARK [...] | + + + + + | [facility] | [address] | [place] [address] | | | SERVICES, ELLIE | JOY [...] | | + +---------+ + + | [facility] DEPARTMENT OF | | | | | [...] | | | Final SMEAR:No | | [place] | | | | fungal elements seen [...] + | [facility] - | [address] | [place] [address] | | | [place] | | | | + + + [...] | | Final SMEAR:AFB not | | [place] | | | | detected source: 10) [...] | + + + + + | [facility] - | [address] | [place] [address] | | | [place] | | | [...] + | [facility] - | [address] | [place] [address] | | | [place] | | | | + + + [...] | | Final SMEAR:AFB not | | [place] | | | | detected source: left [...] | + + + + + | [facility] - | [address] | [place] [address] | | | [facility] | | | | + + [...] + | [facility] - | [address] | [place] [address] | | | [place] | | | | + + + [...] + | [facility] - | [address] | [place] [address] | | | [place] | | | [...] + + + + + | [facility] - | [address] | [place] [address] | | | [place] | | | | + + + [...] | | Final SMEAR:AFB not | | [place] | | | | detected source: left [...] | + + + + + | [facility] - | [address] | [place] [address] | | | [place] | | | | + + + [...] | + + + + + | [facility] - | [address] | [place] [address] | | | [place] | | | [...] | | | Final SMEAR:No | | [place] | | | | fungal elements seen [...] + | [facility] - | [address] | [place] [address] | | | [place] | | | | + + + [...] | | Final SMEAR:AFB not | | [place] | | | | detected source: left [...] | + + + + + | [facility] - | [address] | [place] [address] | | | [place] | | | [...] | + + + + + | [facility] - | [address] | [place] [address] | | | [place] | | | [...] + | [facility] - | [address] | [place] [address] | | | [place] | | | [...] | Final SMEAR:AFB not | | [facility] | | | | detected source: [...] + | [facility] - | [address] | [place] [address] | | | [place] | | | [...] + | [facility] - | [address] | [place] [address] | | | [place] | | | [...] + + + + | [facility] - | [address] | [place] [address] | | | [place] | | | | + + + [...] + | [facility] - | [address] | [place] [address] | | | [place] | | | [...] + + + + + | [facility] - | [address] | [place] [address] | | | [place] | | | | + + + [...] | + + + + + | [facility] - | [address] | [place] [address] | | | [place] | | | | + + + [...] + | [facility] - | [address] | [place] [address] | | | [place] | | | | + + + [...] | | RESULT | | | [facility] | | | | Final GRAM STAIN:No | | [place] | | | | squamous epithelial | [...] + | [facility] - | [address] | [place], [place] [address] | | | [place] | | | [...] + | [facility] - | [address] | [place] [address] | | | [place] | | | [...] | | Final SMEAR:AFB not | | [place] | | | | detected source: 3) [...] + | [facility] - | [address] | [place] [address] | | | [place] | | | [...] + | [facility] - | [address] | [place] [address] | | | [place] | | | | + + + [...] + | [facility] - | [address] | [place] [address] | | | [place] | | | [...] + | [facility] - | [address] | [place] [address] | | | [place] | | | [...] + | [facility] - | [address] | [place] [address] | | | [place] | | | [...] + | [facility] - | [address] | [place] [address] | | | [place] | | | | + + + [...] | | Final SMEAR:AFB not | | [place] | | | | detected source: left [...] + | [facility] - | [address] | [place] [address] | | | [place] | | | | + + + [...] + | [facility] - | [address] | [place] [address] | | | [place] | | | | + + + [...] | | | Final CULTURE | | [place] | | | | RESULT:No growth | [...] + | [facility] - | [address] | [place] [address] | | | [place] | | | | + + + [...] | + + + + + | [facility] | [address] | [place] [address] | | | PATHOLOGY | [address] [...]
--- OUTSIDE RECORDS SUMMARY | ~2020-03-08 | XMS | Encounter Summary ---
Demographics + + + | Address | [address] | | | [place] [address] | + + + | Home Phone [...] Author + + + | Author | [facility] | + + + | Organization | [facility] | + + + | Address | Unknown | + + + | Phone | Unavailable | + + + Support + + + + + | Name | Relationship | Address | Phone | + + + + + | Grisel Marc | ECON | [address] | | | | | [place] | | | | | [address] | | + + + + + Care Team Providers + +------+ + | Care Paste Up Worker Name | Role | Phone | [...] | | | [address] | [address] | | | | | [place] [address] | [phone] | | | | | [place] | | | | | | [address] | | | | | | [phone] | | | +--------+ + + + [...]
--- OUTSIDE RECORDS SUMMARY | ~2020-03-08 | XMS | Encounter Summary ---
Demographics + + + | Address | [address] | | | [place] [address] | + + + | Home Phone [...] [place] | | | | | [address] | | + + + + + Care Team Providers + +------+ + | Care Senior Architect Name | Role | Phone | + +------+ + | Adilia Bob COUNTY TREASURER | PCP | | + +------+ + [...] | | | (avascular | [address] | [address] | | | | | necrosis of | [place] | [place] | | | | | bone) (HCC) | Rd | [address] | | | | | Septic | [place], [place] | [place], | | | | | 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[address] | [place] [address] | | | | | knee, left | | Phone: | | | | | ([facility]) | | [phone] | | | | | Procedures | | Fax: | | | | | CONSULT TO | | [phone] | | | | | INFECTIOUS | [...] | | | | [address] | [place] [address] | | | | | Pavilion, 3rd floor | [phone] | | | | | [facility] [place] | | | | | | [address] | | | | | | [phone] | | | +--------+---------+ + + + [...] Lavinia Peck MD - 08/25/2012 10:10 PM [facility] Clinic Date: 08/25/2012 Clinic: Infectious Disease [...] Lavinia Peck M.D., Ph.D. MALLORY / HYACINTH [id number] / [id number] / [id number] / Lavinia Lam MD - 08/25/2012 9:30 AM PST This office note has been dictated. CSN #: [id number] I spent 45 minutes with the patient [...] | + + + + + | [facility] | [address] | [place] [address] | | | SERVICES, SPECIAL | [address] | | | | IMM + [...] Directory | | | | | | ([place]). | | | | + + + [...] Directory | | | | | | ([place]). | | | | + + + [...] | | | | in the [facility] | | | | | | LaboratoryTest Directory | | | | | | ([place]). | | | | + + + [...] # | | | | | | [phone]). Access | | | | | | complete set of age- | | | | | | and/or | | | | | | gender-specificreference | | | | | | intervals for this test | | | | | | in the [facility] | | | | | | LaboratoryTest Directory | | | | | | ([place]).Performed | | | | | | by [facility] | | | | | | [facility],[address] [place] [address] | | | | | | [place] [address] | | | | | | [phone]. | | | | | | [facility], Magy Fernandez, | | | [...] [facility] | [address] | [place], [place] | | | [facility] | | [address] | | + + + + + [...] - | | | | | | [place] | | + +-------+ + + + + + | Specimen | + + | Blood - Blood | + + + + + + + | Performing | Address | City/State/Zipcode | Phone Number | | Organization | | | | + + + + + | [facility] - | [address] | [place] [address] | | | [place] | | | | + + + + + documented in this encounter Visit Diagnoses + + | Diagnosis | + + | Osteomyelitis of knee region (HCC) - Primary Unspecified osteomyelitis, lower leg | + + documented in this encounter"
--- OUTSIDE RECORDS SUMMARY | ~2020-03-08 | XMS | Encounter Summary ---
Demographics + + + | Address | [address] | | | [place] [address] | + + + | Home Phone [...] Author + + + | Author | [facility] | + + + | Organization | [facility] | + + + | Address | Unknown | + + + | Phone | Unavailable | + + + Support + + + + + | Name | Relationship | Address | Phone | + + + + + | Grisel Marc | ECON | [address] | | | | | [place] | | | | | [address] | | + + + + + Care Team Providers + +------+ + | Care Cleaner Touch Up Worker Name | Role | Phone [...] [facility] | | | | | | [address] | | | | | | [address] | | | | | | [place], [facility] Floor | | | | | | [place], [place] | | | | | | [address] | | | | | | [phone] | | | +--------+ + + + [...] | | + +---------+ + + | [facility] DEPARTMENT OF | | | | | RADIOLOGY | | | | + +---------+ + + documented in this encounter Visit Diagnoses + + | Diagnosis | + + | Osteomyelitis of knee region (HCC) Unspecified osteomyelitis, lower leg | + + documented in this encounter"
--- OUTSIDE RECORDS SUMMARY | ~2020-03-08 | XMS | Encounter Summary ---
Demographics + + + | Address | [address] | | | [place] [address] | + + + | Home Phone [...] [place] | | | | | [address] | | + + + + + Care Team Providers + +------+ + | Care Nursing Clerk Name | Role | Phone | + +------+ + | Adilia Bob ELECTRIC HOIST OPERATOR | PCP | | + +------+ [...] | | | | | Septic | [place], [place] | [place], | | | | | 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[address] | [place] [id number] | | | | | knee, left | | Phone: | | | | | ([facility]) | | [phone] | | | | | Procedures | | Fax: | | | | | CONSULT TO | | [phone] | | | | | INFECTIOUS | [...] | | | | [address] | [place] [address] | | | | | Pavilion, 3rd floor | [phone] | | | | | [facility] [place] | | | | | | [address] | | | | | | [phone] | | | +--------+---------+ + + + [...] Lavinia Peck MD - 08/25/2012 10:10 PM [facility] Clinic Date: 08/25/2012 Clinic: Infectious [...] Lavinia Peck M.D., Ph.D. MALLORY / HYACINTH [id number] / [id number] / [id number] / Lavinia Lam MD - 08/25/2012 9:30 AM PST This office note has been dictated. CSN #: [id number] I spent 45 minutes with the patient [...] [facility] | [address] | [place] [address] | | | SERVICES, SPECIAL | [address] [...] Directory | | | | | | ([facility]). | | | | + + + [...] Directory | | | | | | ([facility]). | | | | + + + [...] | | | | | in the [facility] | | | | | | LaboratoryTest Directory | | | | | | ([facility]). | | | | + + + [...] # | | | | | | [phone]). Access | | | | | | complete set of age- | | | | | | and/or | | | | | | gender-specificreference | | | | | | intervals for this test | | | | | | in the [employer] | | | | | | LaboratoryTest Directory | | | | | | ([facility]).Performed | | | | | | by [facility] | | | | | | [facility],[address] [place] [address] | | | | | | [place] [address] | | | | | | [phone]. | | | | | | [facility], Magy Fernandez, | | | [...] [facility] | [address] | [place], [place] | | | [facility] | | [address] | | + + + + + [...] - | | | | | | [place] | | + +-------+ + + + + + | Specimen | + + | Blood - Blood | + + + + + + + | Performing | Address | City/State/Zipcode | Phone Number | | Organization | | | | + + + + + | [facility] - | [address] | [place] [address] | | | [place] | | | | + + + + + documented in this encounter Visit Diagnoses + + | Diagnosis | + + | Osteomyelitis of knee region (HCC) - Primary Unspecified osteomyelitis, lower leg | + + documented in this encounter"
--- OUTSIDE RECORDS SUMMARY | ~2020-03-08 | XMS | Encounter Summary ---
Demographics + + + | Address | [address] | | | [place] [address] | + + + | Home Phone [...] [place] | | | | | [address] | | + + + + + Care Team Providers + +------+ + | Care Cloak Room Attendant Name | Role | Phone | + [...] + + + + | 09/07/ | Solar Panel Technician | Infectious | Brig[place] | | | 2012 | | Diseases at [facility] | [place] | | | | | [address] | | | | | | [address] | | | | | | Pavilion, 3rd floor | | | | | | [place], [place] | | | | | | [address] | | | | | | [phone] | | | +--------+ + + + [...]
--- OUTSIDE RECORDS SUMMARY | ~2020-03-08 | XMS | Encounter Summary ---
Demographics + + + | Address | [address] | | | [place] [address] | + + + | Home Phone [...] Author + + + | Author | [facility] | + + + | Organization | [facility] | + + + | Address | Unknown | + + + | Phone | Unavailable | + + + Support + + + + + | Name | Relationship | Address | Phone | + + + + + | Grisel Marc | ECON | [address] | | | | | [place] | | | | | [address] | | + + + + + Care Team Providers + +------+ + | Care Director Of Engineering Name | Role | Phone | + +------+ + | Adilia Bob OFFICE MACHINES SALES REPRESENTATIVE | PCP | | + +------+ + Encounter Details +--------+ + + + + | Date | Type | Department | Care Team | Description | +--------+ + + + + | 10/13/ | Braiding Machine Tender | Orthopaedics at | Alton Hernandez MD | Osteomyelitis of | | 2012 | | [facility] [address] | | knee region (HCC) | | | | [address] | | (Primary Dx) | | | | Mailcode: [id number] | | | | | | Physician's Pavilion | | | | | | [place], [place] | | | | | | [address] | | | | | | [phone] | | | +--------+ + + + [...] | | + +---------+ + + | [facility] DEPARTMENT OF | | | | | RADIOLOGY | | | | + +---------+ + + documented in this encounter Visit Diagnoses + + | Diagnosis | + + | Osteomyelitis of knee region (HCC) - Primary Unspecified osteomyelitis, lower leg | + + documented in this encounter"
--- OUTSIDE RECORDS SUMMARY | ~2020-03-08 | XMS | Encounter Summary ---
Demographics + + + | Address | [address] | | | [place] [address] | + + + | Home Phone [...] [place] | | | | | [address] | | + + + + + Care Team Providers + +------+ + | Care Phys Asst Name | Role | Phone | + [...] + + + + | 09/24/ | Senior Manufacturing Engineer | Infectious | Brigid Hardy | | | 2012 | | Diseases at [facility] | [place] | | | | | [address] | | | | | | [address] | | | | | | Pavilion, 3rd floor | | | | | | [place], [place] | | | | | | [address] | | | | | | [phone] | | | +--------+ + + + [...]
--- OUTSIDE RECORDS SUMMARY | ~2020-03-08 | XMS | Encounter Summary ---
Demographics + + + | Address | [address] | | | [place] [address] | + + + | Home Phone [...] Author + + + | Author | [facility] | + + + | Organization | [facility] | + + + | Address | Unknown | + + + | Phone | Unavailable | + + + Support + + + + + | Name | Relationship | Address | Phone | + + + + + | Grisel Marc | ECON | [address] | | | | | [place] | | | | | [address] | | + + + + + Care Team Providers + +------+ + | Care Dials Supervisor Name | Role | Phone | [...] | | | [address] | [address] | | | | | [address] | [phone] | | | | | [place] | | | | | | [address] | | | | | | [phone] | | | +--------+ + + + [...]
--- OUTSIDE RECORDS SUMMARY | ~2020-03-08 | XMS | Encounter Summary ---
Demographics + + + | Address | [address] | | | [place] [address] | + + + | Home Phone [...] [place] | | | | | [address] | | + + + + + Care Team Providers + +------+ + | Care Wet Primer Powder Blender Name | Role | Phone | + [...] [facility] | | | | | | [address] | | | | | | [address] | | | | | | [place], [facility] Floor | | | | | | [place], [place] | | | | | | [address] | | | | | | [phone] | | | +--------+ + + + [...]
--- OUTSIDE RECORDS SUMMARY | ~2020-03-08 | XMS | Encounter Summary ---
Demographics + + + | Address | [address] | | | [place] [address] | + + + | Home Phone [...] [place] | | | | | [address] | | + + + + + Care Team Providers + +------+ + | Care Senior Engineering Associate Name | Role | Phone | + +------+ + | Adilia Bob SSIS ETL DEVELOPER | PCP | | + +------+ + Encounter Details +--------+ + + + + | Date | Type | Department | Care Team | Description | +--------+ + + + + | 10/16/ | Lens Edge Grinder Machine | Infectious | Brigid Hardy | Osteomyelitis of | | 2012 | | Diseases at [facility] | [place] | knee region (HCC) | | | | [address] | | (Primary Dx) | | | | [address] | | | | | | Pavilion, 3rd floor | | | | | | [place], [place] | | | | | | [address] | | | | | | [phone] | | | +--------+ + + + [...]
--- OUTSIDE RECORDS SUMMARY | ~2020-03-08 | XMS | Clinical Summary ---
Demographics + + + | Address | [address] | | | [place] [address] | + + + | Home Phone [...] [place] | | | | | [address] | | + + + + + Care Team Providers + +------+ + | Care Item Processor Name | Role | Phone | + +------+ + | Mark Glynn DO | PCP | | + +------+ + Source Comments FLIP is fully live on both EpicCare Ambulatory and EpicCare InPatient.[facility] Allergies + + + + + + [...] | Possible avascular necrosis. Recommended referral to [facility] | | (10/22/2013 note) | + + [...] | + + + | [address] [place] [address] | [facility] | | [place] [address] | DEPARTMENT OF | | [phone] Name: SANDY MARC (DINORA-EE-L) | RADIOLOGY | | Phys: BAMBI FRIED : 1990 Sex: F | | | CSN: [id number] MR# [id number] Exam Date: | | | 12/22/2019 EXAM: [...] Transcribed Date/Time: 12/22/2019 14:02 | | | Hotel Maid: YORDY | | + + + + + | Procedure Note | + + | Interface, Radiology Results - 12/22/2019 2:06 PM PDT [address] | [place] [address] | | Name: SANDY MARC (DINORA-EE-L) Phys: BAMBI FRIED DOB: 1990 | | Sex: F CSN: [id number] MR# [id number] Exam Date: 12/22/2019 EXAM:X-RAY | | TIBIA [...] | | |Transcribed Date/Time: 12/22/2019 14:02 | |Hotel Maid: FLUENCY | | | | | | [...] | | | + +--------+ +--------+-------+---------+--------+ | GERIATRIC NURSE ASSISTANT MEDICAID | GERIATRIC NURSE ASSISTANT | xxxxxxxx | Effect | | | Medica | | | EASTER | | cindi | | | id | | | N [place] | | for | | | | | | | | all | | | | | | | | dates | | | | + +--------+ +--------+-------+---------+--------+ | GERIATRIC NURSE ASSISTANT MEDICAID | GERIATRIC NURSE ASSISTANT | xxxxxxxx | 08/11/19 | | | [...] | 1990 | [phone] | [place] [address] | | | nayla | | | 2 (Home) | | + +--------+ +--------+ + + | Sandy Marc | Person | Self | | | [address] | | (Dinora-ee-l) Alexa | al/Fam | | 1990 | [phone] | [place] [address] | | | nayla | | | [...]
--- OUTSIDE RECORDS SUMMARY | ~2020-03-08 | XMS | Encounter Summary ---
Demographics + + + | Address | [address] | | | [place] [address] | + + + | Home Phone [...] Author + + + | Author | [facility] | + + + | Organization | [facility] | + + + | Address | Unknown | + + + | Phone | Unavailable | + + + Support + + + + + | Name | Relationship | Address | Phone | + + + + + | Grisel Marc | ECON | [address] | | | | | [place] | | | | | [address] | | + + + + + Care Team Providers + +------+ + | Care Psychiatric Aide Name | Role | Phone | [...] anned | Sports Medicine & Jose Enrique Jonhson PA-C [address] | | | | | Orthopaedic Surgery | [address] | | | | | [address] | [place], [place] | | | | | [place], [place] | [address] | | | | | [address] | [phone] | | | | | [phone] | | | +--------+ + + + [...]
--- OUTSIDE RECORDS SUMMARY | ~2020-03-08 | XMS | Encounter Summary ---
Demographics + + + | Address | [address] | | | [place] [address] | + + + | Home Phone [...] [place] | | | | | [address] | | + + + + + Care Team Providers + +------+ + | Care Consumer Safety Inspector Name | Role | Phone | [...] | s of knee | Health | [facility] | | | | | region ([facility]) | Associates | [address], | | | | | AVN | [address] | [place] | | | | | (avascular | [address] | [address] | | | | | necrosis of | [place], | | | | | | bone) ([facility]) | [place] [address] | | | | | | Pathologic | Phone: | | | | | | fracture of | [phone] | | | | | | tibia or | Fax: | | | | | | fibula | [phone] | | | | | | Septic | | | | | | | 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| | | | | | knee, left | | | | | | | ([facility]) | | | | | | | Procedures | | | | | | | REQUEST TO | | | | | | | SURGERY | | | | | | | ROTARY SHEAR OPERATOR | | | | | | | SD PARTIAL | | | | | | | REMOVAL OF | | | | | | | TIBIA SD | | | | | | | INSERTION | | | | | | | DRUG IMPLANT | | | | | | | DEVICE SD | | | | | | | KNEE | | | | | | | SCOPE,SHAVE | | | | | | | ARTICULAR | | | | | | | CART SD | | | | | | [...] Pavilion | | | | | | [place], [place] | | | | | | [address] | | | | | | [phone] | | | +--------+---------+ + + + [...] to be followed by Dr. Peck in [place] whose PA is seeing her in clinic today [facility]. She has been compliant with non-weightbearing [...] seconds capillary refill. Palpable dorsalis pedis and rotary shear operator ior tibial pulses. X-RAYS: Reviewed x-rays [...] extensiveness of her infection. DARRICK BUITRAGO MD [facility] [address] [place] [address] Mailcode: [id number] [place] [address] documented in this en counter Plan of Treatment Not on filedocumented as of this encounter Visit Diagnoses + + | Diagnosis | + + | Osteomyelitis of knee region (HCC) - Primary Unspecified osteomyelitis, lower leg | + + documented in this encounter
--- OUTSIDE RECORDS SUMMARY | ~2020-03-08 | XMS | Encounter Summary ---
Demographics + + + | Address | [address] | | | [place] [address] | + + + | Home Phone [...] [place] | | | | | [address] | | + + + + + Care Team Providers + +------+ + | Care Electric Deicer Inspector Name | Role | Phone | [...]
--- OUTSIDE RECORDS SUMMARY | ~2020-03-08 | XMS | Encounter Summary ---
Demographics + + + | Address | [address] | | | [place] [address] | + + + | Home Phone [...] [place] | | | | | [address] | | + + + + + Care Team Providers + +------+ + | Care Sintering Plant Supervisor Name | Role | Phone | [...] Pavilion | | | | | | [place], [place] | | | | | | [address] | | | | | | [phone] | | | +--------+ + + + [...]
--- OUTSIDE RECORDS SUMMARY | ~2020-03-08 | XMS | Encounter Summary ---
Demographics + + + | Address | [address] | | | [place] [address] | + + + | Home Phone [...] [place] | | | | | [address] | | + + + + + Care Team Providers + +------+ + | Care Neon Sign Servicer Name | Role | Phone | + [...] Brandon | | | | | | [facility] | | | | [facility], | | | | | | Building | | | | | | Floor [place], [place] | | | | | | [address] | | | | | | [phone] | | | +--------+ + + + [...] Dr. Rodriguez X-Ray Yes, when: 06/04/19; where: [facility] MRI Yes, where: [facility] Via phone 07/05/19 Other Imaging (CT, Ultrasound, etc.) No Is this a W/C injury? no If YES, create referral and complete: .ORTWCNEWPATIENT inside referral Note: We do not accept WC under [place] as they do not pay at [place] rates. Other out of state claims will only be accepted if they agree to pay at [place] rates docume nted in writing from adjustor. Can you confirm the insurance we will be billing for this visit? Care [place] Note: If OHP, please note which type. E.g. [place], [place], [employer], etc. ) Reminder: Please create referrals for pts with: HMO, OHP, [place], Self-Pay, W/C, TPL an d ED Post- [...] they d like to sign up for Hey, Neighbor!t ? Don t forget to pull in CareEveryWhere Additional Comments: documented in this encounter Plan of Treatment Not on filedocumented as of this encounter Visit Diagnoses Not on filedocumented in this encounter
--- OUTSIDE RECORDS SUMMARY | ~2020-03-08 | XMS | Encounter Summary ---
Demographics + + + | Address | [address] | | | [place] [address] | + + + | Home Phone [...] + | Grisel Marc | ECON | [address] | | | | | [place] | | | | | [address] | | + + + + + Care Team Providers + +------+ + | Care Natural Resources Professor Name | Role | Phone | [...] | | | | Osteomyeliti | [address] | ,PhD 4332 | | | | | s of knee | [address] | [address] | | | | | region ([facility]) | [facility] | [facility] | | | | | Articular | Rd | Rd [address], | | | | | cartilage | [place], [place] | [place] | | | | | disorder | [address] | [address] | | | | | Left knee | Phone: | Phone: | | | | | pain, | [phone] | [phone] | | | | | unspecified | Fax: | Fax: | | | | | chronicity | [phone] | [phone] | | | | | Post-traumat | [...] | | | Janett Case | [address] [place], [place] | (Primary Dx); | | | | [place] [address] | [address] | 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 Radiology: X-ray examination 06/04/19 demonstrates [place] changes and mild medial joint space narr owing. There are sclerotic changes noted tibial and femur MRI left knee from [facility] demonstrates Chronic ACL tear and medial [...] her age we will refer her to [facility] for possible osteochondral allograft, reconstr uction Follow up: linda Saba MD [facility] Orthopaedics and Rehabilitation Clinical Retread Builder Board Certified in Sports Medicine and Orthopaedic Surgery Director of Total Joint Replacement Program, [facility] Orthopaedics and Sports Medicine [address] [place] [address] Office: [phone] documented in this e ncounter Plan of [...]
--- OUTSIDE RECORDS SUMMARY | ~2020-03-08 | XMS | Encounter Summary ---
Demographics + + + | Address | [address] | | | [place] [address] | + + + | Home Phone [...] [place] | | | | | [address] | | + + + + + Care Team Providers + +------+ + | Care Waterproofer Name | Role | Phone | + [...] Pavilion | | | | | | [place], [place] | | | | | | [address] | | | | | | [phone] | | | +--------+ + + + [...]
--- OUTSIDE RECORDS SUMMARY | ~2020-03-08 | XMS | Encounter Summary ---
Demographics + + + | Address | [address] | | | [place] [address] | + + + | Home Phone [...] + | Grisel Marc | ECON | [address] | | | | | [place] | | | | | [address] | | + + + + + Care Team Providers + +------+ + | Care Yarding And Folding Machine Operator Name | Role | Phone [...] | Sports Medicine & | [place] [address] | | | | | Orthopaedic Surgery | [address] | | | | | [address] | [place], [place] | | | | | [place], [place] | [address] | | | | | [address] | [phone] | | | | | [phone] | | | +--------+ + + + [...]
--- OUTSIDE RECORDS SUMMARY | ~2020-03-08 | XMS | Encounter Summary ---
Demographics + + + | Address | [address] | | | [place] [address] | + + + | Home Phone [...] + | Grisel Marc | ECON | [address] | | | | | [place] | | | | | [address] | | + + + + + Care Team Providers + +------+ + | Care Rubber Calender Helper Name | Role | Phone | [...] | | | | [address] | [address] | | | | | [address] | [phone] | | | | | [place] | | | | | | [address] | | | | | | [phone] | | | +--------+ + + + [...]
--- OUTSIDE RECORDS SUMMARY | ~2020-03-08 | XMS | Encounter Summary ---
Demographics + + + | Address | [address] | | | [place] [address] | + + + | Home Phone [...] [place] | | | | | [address] | | + + + + + Care Team Providers + +------+ + | Care Auctioneer Automobile Name | Role | Phone | + [...] | | | synovectomy | Street | [facility] | | | | | | [address] | Rd [place], | | | | | | [place], | [place] | | | | | | [place] [address] | [address] | | | | | | Phone: | | | | | | | [phone] | | | | | | | Fax: | | | | | | | [phone] | | +--------+--------+ + + + + [...] [address] | | | | | | [place], [place] | | | | | | [address] | | | | | | [phone] | | | +--------+---------+ + + + [...] contrast or a knee aspi ration in [facility] but she elcted to come here [...] seconds capillary refill. Palpable dorsalis pedis and site interpreter ior tibial pulses. X-RAYS: Reviewed x-rays with [...] today for additional details. DARRICK BUITRAGO MD [facility] [address] [place] [address] Mailcode: [id number] [place] [address] documented in this en counter Plan of Treatment Not on filedocumented as of this encounter Visit Diagnoses + + | Diagnosis | + + | Osteomyelitis of knee region (HCC) - Primary Unspecified osteomyelitis, lower leg | + + documented in this encounter
--- OUTSIDE RECORDS SUMMARY | ~2020-03-08 | XMS | Encounter Summary ---
Demographics + + + | Address | [address] | | | [place] [address] | + + + | Home Phone [...] [place] | | | | | [address] | | + + + + + Care Team Providers + +------+ + | Care Patrol Mother Name | Role | Phone | + [...] Mary, | | | | | | ASEED Viveros | MD Darrick | | | | | Osteomyeliti | Family | [address] | | | | | s of knee | Health | [facility] | | | | | region ([facility]) | Associates | [address], | | | | | AVN | [address] | [place] | | | | | (avascular | [address] | [address] | | | | | necrosis of | [place], | | | | | | bone) ([facility]) | [place] [address] | | | | | | Pathologic | Phone: | | | | | | fracture of | [phone] | | | | | | tibia or | Fax: | | | | | | fibula | [phone] | | | | | | Septic | | | | | | | 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| | | | | | knee, left | | | | | | | ([facility]) | | | | | | | Procedures | | | | | | | REQUEST TO | | | | | | | SURGERY | | | | | | | MATERIAL DISPATCHER | | | | | | | NE PARTIAL | | | | | | | REMOVAL OF | | | | | | | TIBIA NE | | | | | | | INSERTION | | | | | | | DRUG IMPLANT | | | | | | | DEVICE NE | | | | | | | KNEE | | | | | | | SCOPE,SHAVE | | | | | | | ARTICULAR | | | | | | | CART NE | | | | | | | [...] | left (HCC) | | | | [place], [place] | | | | | | [address] | | | | | | [phone] | | | +--------+---------+ + + + [...] Intraoperative Consult Diagnosis confirmed by: [facility] and Khushi Romero M.D./Pathologist ASSESSMENT: Doing well [...] separate note for details). DARRICK BUITRAGO MD [facility] [address] [place] [address] Mailcode: [id number] [place] [id number] Basia Vivar MA - 02/2013 3:15 PM [...]
--- OUTSIDE RECORDS SUMMARY | ~2020-03-08 | XMS | Encounter Summary ---
Demographics + + + | Address | [address] | | | [place] [address] | + + + | Home Phone [...] + + + | Author | [facility] | + + + | Organization | [facility] | + + + | Address | Unknown | + + + | Phone | Unavailable | + + + Support + + + + + | Name | Relationship | Address | Phone | + + + + + | Grisel Marc | ECON | [address] | | | | | [place] | | | | | [address] | | + + + + + Care Team Providers + +------+ + | Care Lactation Coordinator Name | Role | Phone | [...] | | | Orthopaedic Surgery | [place], [place] | | | | | [address] | [address] | | | | | [place], [place] | [phone] | | | | | [address] | | | | | | [phone] | | | +--------+ + + + [...]
--- OUTSIDE RECORDS SUMMARY | ~2020-03-08 | XMS | Encounter Summary ---
Demographics + + + | Address | [address] | | | [place] [address] | + + + | Home Phone [...] [place] | | | | | [address] | | + + + + + Care Team Providers + +------+ + | Care Serger Name | Role | Phone | + [...] | | | necrosis of | [facility] | [place] | | | | | bone) ([facility]) | Rd | [address] | | | | | Septic | [place], [place] | [place], | | | | | 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[address] | [place] [address] | | | | | knee, left | | Phone: | | | | | ([facility]) | | [phone] | | | | | Procedures | | Fax: | | | | | CONSULT TO | | [phone] | | | | | INFECTIOUS | [...] | long-term (current) | | | | [place], [place] | | use of antibiotics | | | | [address] | | | | | | [phone] | | | +--------+---------+ + + + [...] DISEASES CLINIC FOLLOW UP Primary Care Physician: [facility] [address], [address] [place] [address] Ms. Marc presents to Infectious Diseases Clinic regarding scheduled follow up. The patient was seen in conjunction with Dr. Alton Hernandez today. The following history was obtained prior to today's OPAT visit from my own review of the bethany perez's recent [facility] hospital admission, including but not limited to [...] doing rodeo on her horse going around [employer], and she was leaning out away from [employer]. Her legs spontaneously broke with pathological fracture. [...] intramedullary canal, placement of antibiotic beads 09/03/2012: HRIAM Silva [facility] Operative Findings: We began by performing [...] intramedullary canal. We then used our canal township supervisor to thoroughly washout the intramedullary canal as [...] She was seen in the ER in [place] and had a CT Thor ax that [...] care provider and surgeon. Brigid Hardy PA-C [facility] Department of Infectious Diseases Outpatient IV Antibiotic Therapy Clinic (OPAT) [phone] Pager ID: [phone] Mail [address] [place] [address] documented in this encounter Plan of Treatment Not on filedocumented as of this encounter Visit Diagnoses + + | Diagnosis | + + | Osteomyelitis of knee region (HCC) - Primary Unspecified osteomyelitis, lower leg | + + | Encounter for long-term (current) use of antibiotics | + + documented in this encounter
--- OUTSIDE RECORDS SUMMARY | ~2020-03-08 | XMS | Encounter Summary ---
Demographics + + + | Address | [address] | | | [place] [address] | + + + | Home Phone [...] [place] | | | | | [address] | | + + + + + Care Team Providers + +------+ + | Care Tower Erector Helper Name | Role | Phone | [...] floor | | | | | | [place], [place] | | | | | | [address] | | | | | | [phone] | | | +--------+ + + + [...]
--- OUTSIDE RECORDS SUMMARY | ~2020-03-08 | XMS | Encounter Summary ---
Demographics + + + | Address | [address] | | | [place] [address] | + + + | Home Phone [...] [address] | | | | | [place] | | | | | [address] | | + + + + + Care Team Providers + +------+ + | Care Culvert Installer Name | Role | Phone | + [...] | | | | Loop [facility] | [place] [address] | | | | | [address], [facility] floor | [phone] | | | | | [place], [place] | | | | | | [address] | | | | | | [phone] | | | +--------+ + + + [...]
--- OUTSIDE RECORDS SUMMARY | ~2020-03-08 | XMS | Encounter Summary ---
Demographics + + + | Address | [address] | | | [place] [address] | + + + | Home Phone | | + + + | Preferred Language | Unknown | + + + | Marital Status | | + + + | Holiness Affiliation | Unknown | + + + | Race | Unknown | + + + | Ethnic Group | Unknown | + + + Author + + + | Author | [facility] | | | and [place] | + + + | Organization | [facility] | | | and [...] Providers + +------+ + | Care Technology Support Analyst Name | Role | Phone | [...] [place] | | | | | | [address] | | | | | | [phone] | | | +--------+ + + + [...] + + documented as of this encounter ED Notes Deedee Baxtre RN - 06/19/2019 2:02 PM PSTPt reports that she "threw up blood" Pt st ates she is "hung over" But yet, she did not drink her usual amount last night. Pt had "3 d rinks", containing cranberry juice. Pt has no appetite and nausea. documented in this encounter Plan of Treatment + +------+--------+ [...] M?MRN: | | | | | | [id number] | | | [id number] | | | riteri | | | [...] | | | Guidel | | | ynoy | | | from | | | [...] | | | St. | | | [place] | | | y | | | [...] | | | St. | | | [place] | | | y H. | | [...] | | | St. | | | [place] | | | y H. | | [...] | | ER J, | | | INDUSTRIAL BOILERMAKER | | | Nurse | | | [...]
--- OUTSIDE RECORDS SUMMARY | ~2020-03-08 | XMS | Encounter Summary ---
Demographics + + + | Address | [address] | | | [place] [address] | + + + | Home Phone [...] [place] | | | | | [address] | | + + + + + Care Team Providers + +------+ + | Care Kieselguhr Regenerator Operator Name | Role | Phone | [...] | | | | Loop [facility]ician[facility] | [place] [address] | | | | | [address], 3rd floor | [phone] | | | | | [place], [place] | | | | | | [address] | | | | | | [phone] | | | +--------+ + + + [...]
--- OUTSIDE RECORDS SUMMARY | ~2020-03-08 | XMS | Encounter Summary ---
Demographics + + + | Address | [address] | | | [place] [address] | + + + | Home Phone [...] [place] | | | | | [address] | | + + + + + Care Team Providers + +------+ + | Care Airconditioning Engineer Name | Role | Phone | + +------+ + | No Pcp Per Patient | PCP | Unavailable | + +------+ + Encounter Details +--------+ + + + + | Date | Type | Department | Care Team | Description | +--------+ + + + + | 07/21/ | [place] [employer] [place] | Orthopaedics at | Alton Hernandez MD | Leg pain (Primary | | 2011 | | [facility] [address] | | Dx) | | | | [address] | | | | | | Mailcode: [id number] | | | | | | [facility] | | | | | | [place], [place] | | | | | | [address] | | | | | | [phone] | | | +--------+ + + + [...]
--- OUTSIDE RECORDS SUMMARY | ~2020-03-08 | XMS | Encounter Summary ---
Demographics + + + | Address | [address] | | | [place] [address] | + + + | Home Phone [...] + | Grisel Marc | ECON | [address] | | | | | [place] | | | | | [address] | | + + + + + Care Team Providers + +------+ + | Care Traveling Crane Operator Name | Role | Phone [...] | | [address] | [address] | | | | | [address] | [phone] | | | | | [place], [place] | | | | | | [address] | | | | | | [phone] | | | +--------+---------+ + + + [...] She had been followed by ID at [facility] also. She has had chronic symptoms [...] She should keep it strong, use her dinkey dispatcher brace as tolerated. Of course she knows [...]
--- OUTSIDE RECORDS SUMMARY | ~2020-03-08 | XMS | Encounter Summary ---
Demographics + + + | Address | [address] | | | [place] [address] | + + + | Home Phone [...] [place] | | | | | [address] | | + + + + + Care Team Providers + +------+ + | Care Inventory Associate Name | Role | Phone | + +------+ + | Hina Peterson | PCP | | + +------+ + Encounter Details +--------+--------+ + + + | Date | Type | Department | Care Team | Description | +--------+--------+ + + + | 12/21/ | Travel [...] in contact | No / Unsure | 12/22/2019 10:55 AM | | with someone who was confirmed or | | PDT | | suspected to have Coronavirus / COVID-19? | | | + + + + documented as of this encounter Plan of Treatment Not on filedocumented as of this encounter Visit Diagnoses Not on filedocumented in this encounter"
--- OUTSIDE RECORDS SUMMARY | ~2020-03-08 | XMS | Encounter Summary ---
Demographics + + + | Address | [address] | | | [place] [address] | + + + | Home Phone [...] + + + | Author | [facility] | + + + | Organization | [facility] | + + + | Address | Unknown | + + + | Phone | Unavailable | + + + Support + + + + + | Name | Relationship | Address | Phone | + + + + + | Grisel Marc | ECON | [address] | | | | | [place] | | | | | [address] | | + + + + + Care Team Providers + +------+ + | Care Job Foreman Name | Role | Phone | + [...] floor | | | | | | [place], [place] | | | | | | [address] | | | | | | [phone] | | | +--------+------+ + + + [...] | + + + + + | [facility] | [address] | [place] [address] | | | [address]IE [address] | JOY [...] + | [facility] - AIRPORT - | [address] | [place] [address] | | | [place] | | | | + + + [...] | + + + + + | [facility] | [address] [facility] | [place] [address] | | | SERVICES, CORE | JOY [...] | | | LABORATORY | | | MALAYSIAN | | | SERVICES, | | | [...] [facility]IP [place] | [address] | [place] [address] | | | SERVICES, CORE | [address] | | | + + + + + documented in this encounter Visit Diagnoses + + | Diagnosis | + + | Osteomyelitis of knee region (HCC) Unspecified osteomyelitis, lower leg | + + documented in this encounter"
--- OUTSIDE RECORDS SUMMARY | ~2020-03-08 | XMS | Encounter Summary ---
Demographics + + + | Address | [address] | | | [place] [address] | + + + | Home Phone [...] + | Grisel Marc | ECON | [address] | | | | | [place] | | | | | [address] | | + + + + + Care Team Providers + +------+ + | Care Peripheral Equipment Operator Name | Role | Phone | + +------+ + | Mark Glynn DO | PCP | | + +------+ + Encounter Details +--------+ + + + + | Date | Type | Department | Care Team | Description | +--------+ + + + + | 01/10/ | Document-Sc | [facility] | Cami Blue, | | | 2020 | anned | Sports Medicine & | PA-C [address] | | | | | Orthopaedic Surgery | [place] | | | | | [address] | [address] | | | | | [place], [place] | [phone] | | | | | [address] | | | | | | [phone] | | | +--------+ + + + [...] + | OUTSIDE RADIOLOGY - | | 06/14/2019 | | Results for this | | MRI | | 12:00 AM | | procedure are in the | | | | PST | | results section. | + +--------+ + + + documented in this encounter Results OUTSIDE RADIOLOGY - MRI (06/14/2019 12:00 AM PST) + + + | Narrative | Performed At | + + + | | | + + + documented in this encounter Visit Diagnoses Not on filedocumented in this encounter"
--- OUTSIDE RECORDS SUMMARY | ~2020-03-08 | XMS | Encounter Summary ---
Demographics + + + | Address | [address] | | | [place] [address] | + + + | Home Phone [...] [place] | | | | | [address] | | + + + + + Care Team Providers + +------+ + | Care Development Analyst Name | Role | Phone | + +------+ + | Adilia Bob PLANT PROTECTION SUPERVISOR | PCP | | + +------+ + Encounter Details +--------+ + + + + | Date | Type | Department | Care Team | Description | +--------+ + + + + | 11/25/ | Physical Therapy Manager | Orthopaedics at | Alton Hernandez MD | Osteomyelitis of | | 2012 | | [facility] [address] | | knee region (HCC) | | | | [address] | | (Primary Dx); | | | | Mailcode: [id number] | | Pathologic fracture | | | | [facility] | | of tibia or fibula | | | | [place], [place] | | | | | | [address] | | | | | | [phone] | | | +--------+ + + + [...] | | + +---------+ + + | [facility] DEPARTMENT OF | | | [...] | | + +---------+ + + | [facility] DEPARTMENT OF | | | [...]
--- OUTSIDE RECORDS SUMMARY | ~2020-03-08 | XMS | Encounter Summary ---
Demographics + + + | Address | [address] | | | [place] [address] | + + + | Home Phone [...] + | Grisel Marc | ECON | [address] | | | | | [place] | | | | | [address] | | + + + + + Care Team Providers + +------+ + | Care Surgery Assistant Name | Role | Phone | + +------+ + | Hina Peterson | PCP | | + +------+ + Reason for Visit + + + | Reason | Comments | + + + | Follow-up visit | Lt ACL pain | + + + Encounter Details +--------+---------+ + + + | Date | Type | Department | Care Team | Description | +--------+---------+ + + + | 12/21/ | Office | [facility] | Bambi Fried | Pain in left tibia | | 2020 | Visit | Sports Medicine & | STANTON Johnson [address] | (Primary Dx); | | | | Orthopaedic Surgery | [address] | Rupture of anterior | | | | [address] | [place], [place] | cruciate ligament of | | | | [place] | [address] | left knee, | | | | [address] | [phone] | subsequent | | | | [phone] | | encounter; Articular | | | [...] in this encounter Patient Instructions Patient Instructions Terrence Condon - 12/22/2019 11:15 AM PDTOff work until Friday You may then return to work 2 days per week. Follow up via video visit with Bambi in 2 weeks Continue to work on smoking cessation. Electronically signed by Terrence Condon at 11:54 AM PDT documented in this encounter Progress Notes Bambi Fried PA-C - 12/22/2019 11:15 AM PDTFormatting of this note might be differen t from the original. Chief Complaint: Left knee pain HPI: Sandy (Dinora-ee-l) Alexa Marc is a 29 y.o. female who returns today in follow up of left knee pain. She has had a complex history with this knee going back 10 years or so. She had sustained a tibial plateau fracture that required ORIF. This subsequently was infected w [place]. She developed osteo and required multiple surgeries I believe at [facility] to clear th is infection over the next 1-2 years. The infection resolved but she has had a painful knee for some time. 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 The patient was seen in the office on 06/25/[address] Saba. She was referred to [facility] for possible osteochondral allograft, reconstruction. The patient has been working on smoki ng cessation but unfortunately has started to smoke again recently. [facility] will not see the p atient until she has documentation of smoking cessation. The patient reports she experienced a pop in her left knee and increased pain on 09/25/2019, she went to [facility] ED in [place], [place] for further evaluation. The patient reports she was told by the ED provider that her knee was the worst knee he has ever seen for her age and her knee was hanging on by a thread." She denies any new injury, trauma or falls. She continues to work as a [employer] er. The patient stated that she received her new ACL brace and it works well for her. She r eports she feels increased stability in the knee brace as well as added comfort and support. She was last seen on 12/09/2019. She was instructed to continue to stop smoking. She was sta rted on diclofenac. Patient returns to clinic today for follow up of ED visit at [facility] in [place] due to intense pain and slight bruising just underneath incision si te from previous surgeries which occurred on 12/16/19. Pt reports indentation and bruising on her knee where the bottom bar on her brace is, this has since resolved. She denies any injur y or trauma but states her left leg developed severe pain over the anterior wright and posteri or calf. According to the ED note she presented after working a long shift "on her feet." Xr ays taken in the ED revealed stable findings from previous surgeries. They prescribed the p atient [place] and instructed her to follow up with her orthopedic provider. Current pain varies/10 and is characterized as stabbing, aching, throbbing and intermittent . Symptoms are improving. The pain does wake the patient at night. It is associated with swelling. Symptoms are aggravated by bending, exercise and lifting, and improve with rest. She is using Diclofenac and tylenol for the pain. Past Medical History: Diagnosis [...] file Gets together: Not on file Attends mormon service: Not on file Active member of [...] History Narrative Lives with her parents in [place]. Has adequate support should surgery be needed. D enies transportation problems. Review of Systems: Completed and reviewed with patient per patient intake form. See scanned document for refe rence. Physical Exam: There were no vitals taken for this visit. Alert, pleasant and in NAD Left knee: Inspection: Mild swelling, well healed surgical incisions. No erythema or ecchymosis. Palpation: Tender over pes anserine and posterior aspect of calf. Range of motion: 0-100 degrees Strength: Good quadriceps contracture . Stability: normal stability on varus /valgus stress examination +Lisbeth with pain NVI Radiology: X-ray examination Left knee 06/04/19 demonstrates Feliberto changes and mild medial joint space narrowing. There are sclerotic changes noted tibial and femur MRI left knee from [facility] in [place] demonstrates Chronic ACL tear and medial join t space degenerative changes/cartilage loss, subchondral bone cystic changes XR Left knee 10/07/19 No acute fracture. Unchanged from previous xray. XR Left Tib Fib 12/16/19-No acute abnormality or findings to which pain might be distinctly a ttributed. 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 XR Left Tib/fib 12/22/19 IMPRESSION: Healed medial and lateral tibial plateau fractures. 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 No acute bony abnormality. Assessment: Left knee DJD Left knee ACL [...] provides her with added stability and comfort. The patient admits she has likely been overdoing it at work, as she is working 5 days per week and often violates her light duty restrictions. The patient has been off work since he r ED visit on 12/16/2019 and reports improvement in her left knee discomfort. At this time I have encouraged her to remain off work until next week and then she may return to 2 days p er week, in an effort to allow her to rest her knee and avoid aggravation of her symptoms. She was encouraged to follow up with [facility] for possible osteochondral allograft and reconst ruction surgery. She will continue to work on smoking cessation, as this is required for [facility]. 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 When the patient does return to work, she wi ll remain on light duty at work with no lifting more than 25 lb and the ability to take yousif ks as needed to rest her knee. She will continue with diclofenac to reduce inflammation and pain. She understands she is not to take additional NSAIDs. Once the patient has stopped sm oking for 4 weeks, she was encouraged to get smoking cessasion testing done by her PCP and I will place a new referral in an effort to get her in to [facility]. Patient will return to the [facility] via video visit in 2 weeks to check on her symptoms. Follow up: 2 weeks Bambi Fried PA-C Orthopedic Physician Strategic Debriefing Specialist [facility] Orthopa[facility]ics and [facility] Orthopaedics and Sports Medicine [address] [place] [address] [place] [address] Office: [phone] documented in th is encounter Plan of Treatment Not on filedocumented as of this encounter Results X-RAY TIBIA & FIBULA 2 VIEWS LT (12/22/2019 11:37 AM PDT) + + | Specimen | + + | | + + + + + | Narrative | Performed At | + + + | [address] | [facility] | | [place], [place] [address] | DEPARTMENT OF | | [phone] Name: SANDY MARC (DINORA-EE-L) | RADIOLOGY | | Phys: BAMBI FRIED : 1990 Sex: F | | | CSN: [id number] MR# [id number] Exam Date: | | | 12/22/2019 EXAM: [...] Transcribed Date/Time: 12/22/2019 14:02 | | | Hatcher[employer] Employee: YORDY | | + + + + + | Procedure Note | + + | Interface, Radiology Results - 12/22/2019 2:06 PM PDT [address] | | [place] [address] | | Name: SANDY MARC (DINORA-EE-L) Phys: BAMBI FRIED : 1990 | | Sex: F CSN: [id number] MR# [id number] Exam Date: 12/22/2019 EXAM:X-RAY | | TIBIA [...] | | |Transcribed Date/Time: 12/22/2019 14:02 | |Hatchery Employee: FLUENCY | | | | | | [...] | | leg | + + | Osteomyelitis of knee region (HCC) Unspecified osteomyelitis, lower leg | + + documented in this encounter
--- OUTSIDE RECORDS SUMMARY | ~2020-03-08 | XMS | Encounter Summary ---
Demographics + + + | Address | [address] | | | [place] [address] | + + + | Home Phone [...] [place] | | | | | [address] | | + + + + + Care Team Providers + +------+ + | Care Nursing Aide Name | Role | Phone | [...] + + + + | 09/24/ | Commissary Production Supervisor | Infectious | Brigid Hardy | | | 2012 | | Diseases at [facility] | [place], [place] | | | | | [address] | | | | | | [address] [facility] | | | | | | [address], 3rd floor | | | | | | [place], [place] | | | | | | [address] | | | | | | [phone] | | | +--------+ + + + [...]
--- OUTSIDE RECORDS SUMMARY | ~2020-03-08 | XMS | Encounter Summary ---
Demographics + + + | Address | [address] | | | [place] [address] | + + + | Home Phone [...] + | Grisel Marc | ECON | [address] | | | | | [place] | | | | | [address] | | + + + + + Care Team Providers + +------+ + | Care Metal Window Screen Assembler Name | Role | Phone | + +------+ + | Hina Peterson | PCP | | + +------+ + Encounter Details +--------+ + + + + | Date | Type | Department | Care Team | Description | +--------+ + + + + | 12/21/ | Hospital | [facility] | | | | 2019 | Encounter | Sports Medicine & | | | | | | Orthopaedic Surgery | | | | | | [address] | | | | | | [place] | | | | | | [address] | | | | | | [phone] | | | +--------+ + + + [...] + + + +---------+ + + | diclofenac sodium | Take 1 tablet by | 60 | 1 | 12/09/19 | | | EC 75 mg oral | mouth twice daily as | tablet | | 20 | | | tablet,delayed | needed. Take with | | | | | | release | food. | | | | | | (DR/EC)Indications: [...] (HCC) | | | | | | + [...] + + + | [address] [place] [address] | [facility] | | [place] [address] DEPARTMENT OF | | [phone] Name: SANDY MARC (SHARIF-EE-L) | RADIOLOGY | | Phys: MARLA FRIED : 1990 Sex: F | | | CSN: [id number] MR# [id number] Exam Date: | | | 12/22/2019 EXAM: [...] Transcribed Date/Time: 12/22/2019 14:02 | | | Mobile Paramedical Examiner: YORDY | | + + + + + | Procedure Note | + + | Interface, Radiology Results - 12/22/2019 2:06 PM PDT [address] | | [address] [place] [address] | | Name: MINNIESANDY (SHARIF-EE-L) Phys: MARLA FRIED : 1990 | | Sex: F CSN: [id number] MR# [id number] Exam Date: 12/22/2019 EXAM:X-RAY | | TIBIA [...] | | |Transcribed Date/Time: 12/22/2019 14:02 | |Mobile Paramedical Examiner: FLUENCY | | | | | | [...] + + | Pain in left tibia | + + documented in this encounter"
--- OUTSIDE RECORDS SUMMARY | ~2020-03-08 | XMS | Encounter Summary ---
Demographics + + + | Address | [address] | | | [place] [address] | + + + | Home Phone [...] [place] | | | | | [address] | | + + + + + Care Team Providers + +------+ + | Care Piped Buttonhole Machine Operator Name | Role | Phone [...] | [place] | | | | | [address] | | | | | | [address] [facility] | | | | | | [place], 3rd floor | | | | | | [place], [place] | | | | | | [address] | | | | | | [phone] | | | +--------+ + + + [...]
--- OUTSIDE RECORDS SUMMARY | ~2020-03-08 | XMS | Encounter Summary ---
Demographics + + + | Address | [address] | | | [place] [address] | + + + | Home Phone [...] [place] | | | | | [address] | | + + + + + Care Team Providers + +------+ + | Care Prepper Name | Role | Phone | + [...] | | | | necrosis of | [facility] | [place] | | | | | bone) (HCC) | Rd | [address] | | | | | Septic | [place], [place] | [place], | | | | | 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[address] | [place] [address] | | | | | knee, left | | Phone: | | | | | ([facility]) | | [phone] | | | | | Procedures | | Fax: | | | | | CONSULT TO | | [phone] | | | | | INFECTIOUS | [...] | | | Osteomyeliti | Family | [address] [facility] | | | | | s of knee | Health | [facility] | | | | | region ([facility]) | Associates | Rd [place], | | | | | AVN | [address] | [place] | | | | | (avascular | [address] | [address] | | | | | necrosis of | [place], | | | | | | bone) ([facility]) | [place] [address] | | | | | | Pathologic | Phone: | | | | | | fracture of | [phone] | | | | | | tibia or | Fax: | | | | | | fibula | [phone] | | | | | | Septic | | | | | | | 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| | | | | | knee, left | | | | | | | ([facility]) | | | | | | | Procedures | | | | | | | REQUEST TO | | | | | | | SURGERY | | | | | | | ARTIFICIAL BREAST FABRICATOR | | | | | | | NC PARTIAL | | | | | | | REMOVAL OF | | | | | | | TIBIA NC | | | | | | | INSERTION | | | | | | | DRUG IMPLANT | | | | | | | DEVICE NC | | | | | | | KNEE | | | | | | | SCOPE,SHAVE | | | | | | | ARTICULAR | | | | | | | CART NC | | | | | | | [...] | | MD David | [address] | | | | | Osteomyeliti | [address] | [address] [place] | | | | | s of knee | [address] | [address] [place] | | | | | region ([facility]) | Rd | Research | | | | | Procedures | [place], [place] | [place] | | | | | MRI KNEE | [address] | [place], [place] | | | | | LT WWO CONT | Phone: | [address] | | | | | | [phone] | Phone: | | | | | | Fax: | [phone] | | | | | | [phone] | Fax: | | | | | | | [phone] | +--------+--------+ + + + + Reason [...] s, lower leg | REFERRING | Rd [place], | | | | | L medial | PROVIDER PER | [place] | | | | | tibial | [place] | [address] | | | | | plateau fx [...] | [facility] | | of bone) ([facility]); | | | | [place], [place] | | Pathologic fracture | | | | [address] | | of tibia or fibula; | | | | [phone] | | Septic 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| | | | | knee, left ([facility]) | +--------+---------+ + + + [...] might be different fr om the original. [facility] Orth[facility]- New Patient Referring Physician: Dr. [...] plateau fracture by Dr. Jerald Don in [place] on 12/10/11. Calcium phosphate cement was used [...] History Diagnosis Date Asthma Pericarditis per Logan Garza 04/03/11 ER note PMH section Past Surgical [...] MRI w/ contrast done on 07/09/12 at [facility], but are unable to view the [...] subchondral | | | | | | [id number] hyperintensity | | | | | | [...] | | + +---------+ + + | [facility] DEPARTMENT OF | | | | [...] + | [facility] - | [address] | [place] [address] | | | [place] | | | | + + + [...] | + + + + + | [facility] | [address] [facility] | [place] [address] | | | SERVICES, CORE | PARK [...] | + + + + + | [facility] | [address] | [place] [address] | | | SERVICES, CORE | JOY [...]
--- OUTSIDE RECORDS SUMMARY | ~2020-03-08 | XMS | Encounter Summary ---
Demographics + + + | Address | [address] | | | [place] [address] | + + + | Home Phone [...] + | Grisel Marc | ECON | [address] | | | | | [place] | | | | | [address] | | + + + + + Care Team Providers + +------+ + | Care Machine Operator Assistant Name | Role | Phone | + +------+ + | Mark Glynn DO | PCP | | + +------+ + Reason for Visit + + + | Reason | Comments | + + + | Referral Needed | | + + + Encounter Details +--------+ + + + + | Date | Type | Department | Care Team | Description | +--------+ + + + + | 01/11/ | Telephone | [facility] | Bambi Bautista | Referral Needed | | 2020 | | Sports Medicine & | STANTON Johnson [address] [facility] | | | | | Orthopaedic Surgery | [facility] | | | | | [address] | [place], [place] | | | | | [place] | [address] | | | | | [address] | [phone] | | | | | [phone] | | | +--------+ + + + [...]
--- OUTSIDE RECORDS SUMMARY | ~2020-03-08 | XMS | Encounter Summary ---
Demographics + + + | Address | [address] | | | [place] [address] | + + + | Home Phone [...] [place] | | | | | [address] | | + + + + + Care Team Providers + +------+ + | Care Cathode Washer Name | Role | Phone | [...] floor | | | | | | [place], [place] | | | | | | [address] | | | | | | [phone] | | | +--------+------+ + + + [...] e | 10:01 AM | knee region ([facility]) | procedure are in the | | | | PST | | results section. | + +--------+ + + + | HIV-1,2 AB/HIV-1 P24 | Routin | 08/25/2012 | Osteomyelitis of | Results for this | | AG SCRN | e | 10:01 AM | knee region ([facility]) | procedure are in the | | | | PST | | results section. | + +--------+ + + + | IGA, SERUM | Routin | 08/25/2012 | Osteomyelitis of | Results for this | | | e | 10:01 AM | knee region ([facility]) | procedure are in the [...] [facility] | [address] | [place] [address] | | | SERVICES, CORE | PARK [...] [facility] | [address] | [place] [address] | | | SERVICES, SPECIAL | PARK [...] | | | | | in the [facility] | | | | | | LaboratoryTest Directory | | | | | | ([place]). | | | | + + + [...] | | | | | in the [facility] | | | | | | LaboratoryTest Directory | | | | | | ([facility]). | | | | + + + [...] | | | | | in the [facility] | | | | | | LaboratoryTest Directory | | | | | | ([facility]). | | | | + + + [...] # | | | | | | [phone]). Access | | | | | | complete set of age- | | | | | | and/or | | | | | | gender-specificreference | | | | | | intervals for this test | | | | | | in the [facility] | | | | | | LaboratoryTest Directory | | | | | | ([place]).Performed | | | | | | by [facility] | | | | | | Formerly [facility],[address] [place] [address] | | | | | | [place] [address] | | | | | | [email or web address] | | | | | | [facility], Magy Fernandez, | | | [...] [facility] | [address] | [place], [place] | | | [facility] | | [address] | | + + + + + [...] | + + + + + | [email or web address] - | [address] | [place] [address] | | | [place] | | | | + + + + + documented in this encounter Visit Diagnoses + + | Diagnosis | + + | Osteomyelitis of knee region (HCC) Unspecified osteomyelitis, lower leg | + + documented in this encounter"
--- OUTSIDE RECORDS SUMMARY | ~2020-03-08 | XMS | Encounter Summary ---
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 Surgeries scheduled in the [facility]: registration is located on the 9th floor. Surgeries scheduled in [facility]: registration is located on the 6th floor. Surgeries scheduled in the [facility]: registration is located i n the [facility] on the first floor. For surgeries scheduled to take place at the [facility]: registration is l [...] you use specialized medical equipment at h [facility], please check with your provider before [...] in conjunction [facility]. Her HPI is copied from her previous [...] plateau fracture by Dr. Jerald Don in [place] on 12/10/11. Calcium phosphate cement was used [...]
--- OUTSIDE RECORDS SUMMARY | ~2020-03-08 | XMS | Encounter Summary ---
Demographics + + + | Address | [address] | | | [place] [address] | + + + | Home Phone [...] Team Providers + +------+ + | Care Refractory Specialist Name | Role | Phone | [...]
--- OUTSIDE RECORDS SUMMARY | ~2020-03-08 | XMS | Encounter Summary ---
Demographics + + + | Address | [address] | | | [place] [address] | + + + | Home Phone [...] Grisel Marc | ECON | [address] | | | | | [place] | | | | | [address] | | + + + + + Care Team Providers + +------+ + | Care Repairer Finished Metal Name | Role | Phone | + [...] | | | | | right | [address] | NW | | | | | Procedures | [place], | [place] | | | | | MRI KN[address] RT | [place] | [address] | | | | | [place] | [address] | Phone: | | | | | MRI LOWER | Phone: | [phone] | | | | | EXTREM JT, | [phone] | Fax: | | | | | W/O CONTRAST | Fax: | [phone] | | | | | | [phone] | | +--------+--------+ + + + + [...] knee | [address] | | | | | | | [address] THE | | | | | | [place], | [place] | | | | | | [place] [address] | [address] | | | | | | Phone: | Phone: | | | | | | [phone] | [phone] | | | | | | Fax: | Fax: | | | | | | [phone] | [phone] | +--------+--------+ + + + + Encounter [...] | | [address] | [address] | | | | | [address] | [phone] | | | | | [place], [place] | | | | | | [address] | | | | | | [phone] | | | +--------+---------+ + + + [...]
--- OUTSIDE RECORDS SUMMARY | ~2020-03-08 | XMS | Encounter Summary ---
Demographics + + + | Address | [address] | | | [place] [address] | + + + | Home Phone [...] [place] | | | | | [address] | | + + + + + Care Team Providers + +------+ + | Care [employer] Hat Open Stack Administrator Name | Role | Phone | + [...] | | | [address] | [address] | | | | | [place] | [phone] | | | | | [address] | | | | | | [phone] | | | +--------+ + + + [...]
--- OUTSIDE RECORDS SUMMARY | ~2020-03-08 | XMS | Encounter Summary ---
Demographics + + + | Address | [address] | | | [place] [address] | + + + | Home Phone [...] + | Grisel Marc | ECON | [address] | | | | | [place] | | | | | [address] | | + + + + + Care Team Providers + +------+ + | Care Nurse Manager Name | Role | Phone | [...] [place] | | | | | [address] | [address] | | | | | | [phone] | | | | | | | [...] | | Results for this | | [address] | e | 10:19 AM | | procedure are in the | | | | PST | | results section. | + +--------+ + + + documented in this encounter Results ORT KNEE 3V 62679 (07/14/2015 10:19 AM PST) + + | Specimen | + + | | + + + + + | Narrative | Performed At | + + + | Name: | [facility] | | SANDY MARC | DEPARTMENT OF | | Phys: Mars Nicolas MD | RADIOLOGY | | | | | : 1990 Age: 24 Sex: F | | | Acct: [id number] Loc: ORTH | | | | | | Exam Date: 07/14/2015 Status: PRE CLI | | | Radiology No: [id number] | | | Unit No: | | | EXAM# TYPE/EXAM | | | RESULT | | | [id number] ORT/ORT KNEE 3V 73 | | | EXAM: ORT | | | KNEE 3V 37488 CLINICAL HISTORY: | | | Knee pain. [...] | Transcribed Date/Time: 07/14/2015 | | | (3224) Lift Operator: FLUENCY PAGE 1 | | | Signed Report | | | | | + + + + + | Procedure Note | + + | Interface, Radiology Results - 12/21/2015 11:29 AM PDT | | Name: SANDY MARC | | Phys: Mars Nicolas MD : | | 1990 Age: 24 Sex: F Acct: [id number] | | Loc: ORTH Exam Date: 07/14/2015 | | Status: PRE CLI Radiology No: [id number] | | Unit No: EXAM# TYPE/EXAM | | RESULT [id number] ORT/ORT KNEE 3V | | 73 EXAM: ORT KNEE 3V | | [id number] CLINICAL HISTORY: Knee pain. Subacute injury. COMPARISON: [...] | | | Transcribed Date/Time: 07/14/2015 (1022) Lift Operator: FLUENCY PAGE 1 | | Signed Report [...] | | | | Transcribed Date/Time: 07/14/2015 (7562) | | Lift Operator: YORDY | | | | | | [...]
--- OUTSIDE RECORDS SUMMARY | ~2020-03-08 | XMS | Encounter Summary ---
Demographics + + + | Address | [address] | | | [place] [address] | + + + | Home Phone [...] [place] | | | | | [address] | | + + + + + Care Team Providers + +------+ + | Care Aba Therapist Name | Role | Phone | [...] of anterior | | | | [address] | [place], [place] | cruciate ligament of | | | | [place] | [address] | left knee, | | | | [address] | [phone] | subsequent | | | | [phone] | | encounter; Articular | | | [...] Jess Ledesma MA - 01/05/2020 1:00 PM [facility] Orthopedic Telehealth Visit: Patient has provided verbal [...] Patel PA -C - 01/05/2020 1:00 PM [facility] Orthopedic Telehealth Visit: Patient agrees to a [...] and required multiple surgeries I believe at [facility] to clear this infection over the next 1-2 years. The infection resolved but she has had a painful knee for some time. Recently she had a hyperextension injury and an MRI shows an ab sent ACL with marked degenerative changes in the medial compartment. The patient was seen in the office on 06/25/[address] Saba. She was referred to [facility] for possible osteochondral allograft, reconstruction. The patient has been working on smoki ng cessation but unfortunately has started to smoke again recently. [facility]. The patient reports she experienced a pop in her left knee and increased pain on 09/25/2019, she went to [facility] ED in [place], [place] for further evaluation. The patient reports she was told by the ED provider that her knee was the worst knee he has ever seen for her age and her knee was hanging on by a thread." She denies any new injury, trauma or falls. 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 The patient stated that she received [...] for follow up of ED visit at [facility] in [place] due to intense pain and slight bruising [...] previous surgeries. They prescribed the patien t [place] and instructed her to follow up with [...] was feeling much better. Patient returned to [facility] last night and worked an 8 hr [...] reports working with the knee brace on [facility] with added st ability and comfort. The [...] She was encouraged to follow up with [facility] for possible osteochondral allograft and recons truction surgery. She will continue to work on smoking cessation, as this is required for [facility]. She will continue with diclofenac to reduce inflammation and pain.She understands she is not to take additional NSAIDs.Once the patient has stopped smoking for 4 weeks, she was encouraged to get smoking cessasion testing done by her PCP and I will place a new refe rral in an effort to get her in to [facility]. Patient will return to the clinic via video or off ice visit in 4weeks to check on her symptoms. The visit took place via telephone with the provider located at the distant site of [facility]. T he patient stated they were located [...]
--- OUTSIDE RECORDS SUMMARY | ~2020-03-08 | XMS | Encounter Summary ---
Demographics + + + | Address | [address] | | | [place] [address] | + + + | Home Phone [...] [place] | | | | | [address] | | + + + + + Care Team Providers + +------+ + | Care Phytopathology Teacher Name | Role | Phone | [...] L PA | | | | | [address] | | | | | | Loop Physician's | | | | | | [place], 3rd floor | | | | | | [place], [place] | | | | | | [address] | | | | | | [phone] | | | +--------+ + + + [...]
--- OUTSIDE RECORDS SUMMARY | ~2020-03-08 | XMS | Encounter Summary ---
Demographics + + + | Address | [address] | | | [place] [address] | + + + | Home Phone [...] [place] | | | | | [address] | | + + + + + Care Team Providers + +------+ + | Care Transportation Engineer Name | Role | Phone | [...] Floor | | | | | | [place], [place] | | | | | | [address] | | | | | | [phone] | | | +--------+ + + + [...]
--- OUTSIDE RECORDS SUMMARY | ~2020-03-08 | XMS | Encounter Summary ---
Demographics + + + | Address | [address] | | | [place] [address] | + + + | Home Phone [...] [place] | | | | | [address] | | + + + + + Care Team Providers + +------+ + | Care Freight Car Repairer Name | Role | Phone | + +------+ + | Adilia Bob PERSONAL ASSISTANT | PCP | | + +------+ [...] | | | | | long-term | [place], [place] | Physician's | | | | | (current) | [address] | Pavilion | | | | | use of | | [place], [place] | | | | | antibiotics | | [address] | | | | | Procedures | | Phone: | | | | | VASC LAB | | [phone] | | | | | UPPER EXT | | Fax: | | | | | PSEUDOANEUR | | [phone] | | | | | COMP LEFT [...] | | | | necrosis of | [facility] | [place] | | | | | bone) ([facility]) | Rd | [address] | | | | | Septic | [place], [place] | [place], | | | | | 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[address] | [place] [address] | | | | | knee, left | | Phone: | | | | | ([facility]) | | [phone] | | | | | Procedures | | Fax: | | | | | CONSULT TO | | [phone] | | | | | INFECTIOUS | [...] use of antibiotics | | | | [place], [place] | | | | | | [address] | | | | | | [phone] | | | +--------+---------+ + + + [...] UP Primary Care Physician: [facility] [address], [address] [place] [address] Ms. Marc presents to Infectious Diseases Clinic [...] doing rodeo on her horse going around [employer], and she was leaning out away from [employer]. Her legs spontaneously broke with pathological fracture. [...] placement of antibiotic beads 09/03/2012: HIRAM Silva [facility] Operative Findings: We began by performing a [...] medullary canal. We then used our canal machine fur cleaner to thoroughly washout the intramedullary c anal [...] She was seen in the ER in [place] and had a CT Thor ax that [...] a nd follow-up planning. Brigid Hardy PA-C [facility] Department of Infectious Diseases Outpatient IV Antibiotic Therapy Clinic (OPAT) [phone] Pager ID: [phone] [facility] Mail Code U057 [place] [address] documented in this encounter Plan of Treatment [...] + + documented in this encounter Results [facility] VENOUS DUPLEX UPPER EXTREMITY LT (09/29/2012 [...] ,Author: | | | | | | NEDY BACA, | | | | | | [...] [place] | | | | | | [place] | | | | | | | [...]
--- OUTSIDE RECORDS SUMMARY | ~2020-03-08 | XMS | Encounter Summary ---
Demographics + + + | Address | [address] | | | [place] [address] | + + + | Home Phone [...] [place] | | | | | [address] | | + + + + + Care Team Providers + +------+ + | Care It Portfolio Manager Name | Role | Phone | [...] | | | | | Health | [facility] | | | | | | Associates | Rd | | | | | | [address] | [place], [place] | | | | | | [address], [address] | [address] | | | | | | [place], | | | | | | | [place] [address] | | | | | | | Phone: | | | | | | | [phone] | | | | | | | Fax: | | | | | | | [phone] | | +--------+--------+ + + + + [...] | | | | Loop Physician's | [place] [address] | | | | | [place], 3rd floor | [phone] | | | | | [facility] [place] | | | | | | [address] | | | | | | [phone] | | | +--------+---------+ + + + [...] FOLLOW UP Referrring Physician: Alton Hernandez MD [address] [place] [address] Primary Care Physician: [facility] [address], [address] [place] [address] Ms. Marc presents to Infectious Diseases Clinic regarding scheduled follow up. History other than "Interim History" below is directly copied from previous ID notes to darya mcdonough. In addition I reviewed the history from the patient's [facility] admiss ion, including but not limited [...] Silva [facility] Operative Findings: There were no [...] She was seen in the ER in [place] and had a CT Thor ax that [...] described above. ZOEY PECK MD INFECTIOUS DISEASES [address] [place] [address] Mailcode: L608 [place] [address] documented in this e ncounter Plan of Treatment Not on filedocumented as of this encounter Visit Diagnoses + + | Diagnosis | + + | Osteomyelitis of knee region (HCC) - Primary Unspecified osteomyelitis, lower leg | + + documented in this encounter
--- OUTSIDE RECORDS SUMMARY | ~2020-03-08 | XMS | Encounter Summary ---
Demographics + + + | Address | [address] | | | [place] [address] | + + + | Home Phone [...] [place] | | | | | [address] | | + + + + + Care Team Providers + +------+ + | Care Endoscopy Specialty Technician Name | Role | Phone | [...] Pavilion | | | | | | [place], [place] | | | | | | [address] | | | | | | [phone] | | | +--------+ + + + [...]
--- OUTSIDE RECORDS SUMMARY | ~2020-03-08 | XMS | Encounter Summary ---
Demographics + + + | Address | [address] | | | [place] [address] | + + + | Home Phone [...] + | Grisel Marc | ECON | [address] | | | | | [place] | | | | | [address] | | + + + + + Care Team Providers + +------+ + | Care Maintenance Construction Helper Name | Role | Phone | [...] | | | | | unspecified | [address] | | | | | | chronicity | [place], | | | | | | Tears of | [place] | | | | | | meniscus and | [address] | | | | | | anterior | Phone: | | | | | | cruciate | [phone] | | | | | | ligament of | Fax: | | | | | | left knee, | [phone] | | | | | | initial | | | | | | | encounter | | | | | | | Procedures | | | | | | | MRI KNEE | | | | | | | LEFT WO | | | | | | | CONTRAST [place] | | | | | | [...] | | | Orthopaedic Surgery | Blvd [place], [place] | chronicity (Primary | | | | [address] | [address] | Dx); Tears of | | | | [place], [place] | [phone] | meniscus and | | | | [address] | | anterior cruciate | | | | [phone] | | ligament of left | | [...] Marc is a 28 y.o. female from [place] who presents to the office today for [...] Follow up: After MRI Jaci Blue PA-C [facility] Orthopaedics and Rehabilitation Orthopaedic Physician Supervisor Electronics Inspection [facility] [address] [place] [address] Office: [phone] documented in this e ncounter Plan of [...] | + + + | [address] | [facility] | | [place] [address] | DEPARTMENT | | [phone] Name: SANDY MARC Phys: | RADIOLOGY | | MIRZAJACI : 1990 Sex: F CSN: | | | [id number] MR# [id number] Exam Date: 06/04/2019 | | | EXAM: [...] Transcribed | | | Date/Time: 06/04/2019 11:28 It Operations Specialist: FLUENCY | | + + + + + | Procedure Note | + + | Interface, Radiology Results - 06/04/2019 11:36 AM PDT [address] | | [address] [place] [address] | | Name: ANGELICA MARCAelx Phys: JACI BLUE : 1990 Sex: F | | CSN: [id number] MR# [id number] Exam Date: 06/04/2019 EXAM:LEFT LOWER EXTREMITY | [...] | | |Transcribed Date/Time: 06/04/2019 11:28 | |It Operations Specialist: FLUENCY | | | | | [...] | + + + | [address] [place] [address] | [facility] | | [place] [address] | DEPARTMENT | | [phone] Name: SANDY MARC Phys: | RADIOLOGY | | JACI BLUE : 1990 Sex: F CSN: | | | [id number] MR# [id number] Exam Date: 06/04/2019 | | | EXAM: X-RAY KNEE 3 VIEWS LEFT 44129; X-RAY KNEE 2 VIEWS RIGHT | | | [address]90[address] CLINICAL HISTORY: Left knee pain. COMPARISON: None [...] Transcribed Date/Time: 06/04/2019 | | | 23:16 It Operations Specialist: FLUENCY | | + + + + + | Procedure Note | + + | Interface, Radiology Results - 06/04/2019 11:21 PM PDT [address] | | [address] [place] [address] | | Name: SANDY MARC Phys: JACI BLUE : 1990 Sex: F | | CSN: [id number] MR# [id number] Exam Date: 06/04/2019 EXAM:X-RAY KNEE 3 VIEWS | | LEFT [address]1538; X-RAY KNEE 2 VIEWS RIGHT 73964 CLINICAL HISTORY:Left knee pain. | | COMPARISON:None [...] | | |Transcribed Date/Time: 06/04/2019 23:16 | |It Operations Specialist: FLUENCY | | | | | | | + + + +---------+ + + | Performing | Address | City/State[facility] | Phone Number | | Organization [...] | + + + | [address] [place] [address] | [facility] | | [place] [address] | DEPARTMENT OF | | [phone] Name: SANDY MARC Phys: | RADIOLOGY | | JACI BLUE : 1990 Sex: F CSN: | | | [id number] MR# [id number] Exam Date: 06/04/2019 | | | EXAM: X-RAY KNEE 3 VIEWS LEFT 41069; X-RAY KNEE 2 VIEWS RIGHT | | | [address] CLINICAL HISTORY: Left knee pain. COMPARISON: None [...] Transcribed Date/Time: 06/04/2019 | | | 23:16 It Operations Specialist: FLUENCY | | + + + + + | Procedure Note | + + | Interface, Radiology Results - 06/04/2019 11:21 PM PDT [address] | | [place] [address] | | Name: SANDY MARC Phys: JACI BLUE : 1990 Sex: F | | CSN: [id number] MR# [id number] Exam Date: 06/04/2019 EXAM:X-RAY KNEE 3 VIEWS | | LEFT 79968; X-RAY KNEE 2 VIEWS RIGHT 288[address] CLINICAL HISTORY:Left knee pain. | | COMPARISON:None [...] | | |Transcribed Date/Time: 06/04/2019 23:16 | |It Operations Specialist: FLUENCY | | | | | [...]
--- OUTSIDE RECORDS SUMMARY | ~2020-03-08 | XMS | Encounter Summary ---
Demographics + + + | Address | [address] | | | [place] [address] | + + + | Home Phone [...] [place] | | | | | [address] | | + + + + + Care Team Providers + +------+ + | Care Dustless Operator Name | Role | Phone | [...] Pavilion | | | | | | [place], [place] | | | | | | [address] | | | | | | [phone] | | | +--------+ + + + [...]
--- OUTSIDE RECORDS SUMMARY | ~2020-03-08 | XMS | Encounter Summary ---
Demographics + + + | Address | [address] | | | [place] [address] | + + + | Home Phone [...] + | Grisel Marc | ECON | [address] | | | | | [place] | | | | | [address] | | + + + + + Care Team Providers + +------+ + | Care Natural Gas Shothole Driller Name | Role | Phone | [...] | | | | | unspecified | [address] | | | | | | chronicity | [place], | | | | | | Tears of | [place] | | | | | | meniscus and | [address] | | | | | | anterior | Phone: | | | | | | cruciate | [phone] | | | | | | ligament of | Fax: | | | | | | left knee, | [phone] | | | | | | initial | | | | | | | encounter | | | | | | | Procedures | | | | | | | MRI KNEE | | | | | | | LEFT WO | | | | | | | CONTRAST MD | | | | | | [...] | | | Orthopaedic Surgery | Blvd [place], [place] | chronicity (Primary | | | | [address] | [address] | Dx); Tears of | | | | [place], [place] | [phone] | meniscus and | | | | [address] | | anterior cruciate | | | | [phone] | | ligament of left | | [...] Marc is a 28 y.o. female from [place] who presents to the office today for [...] Follow up: After MRI Jaci Blue PA-C [facility] Orthopaedics and Rehabilitation Orthopaedic Physician Principle Software Engineer [facility] [address] [place] [address] Office: [phone] documented in this e ncounter Plan of [...] | + + + | [address] | [facility] | | [place] [address] | DEPARTMENT | | [phone] Name: SANDY MARC Phys: | RADIOLOGY | | MIRZAJACI : 1990 Sex: F CSN: | | | [id number] MR# [id number] Exam Date: 06/04/2019 | | | EXAM: [...] Transcribed | | | Date/Time: 06/04/2019 11:28 Lav Crewman: FLUENCY | | + + + + + | Procedure Note | + + | Interface, Radiology Results - 06/04/2019 11:36 AM PDT [address] | | [address] [place] [address] | | Name: ANGELICA MARCAlex Phys: JACI BLUE : 1990 Sex: F | | CSN: [id number] MR# [id number] Exam Date: 06/04/2019 EXAM:LEFT LOWER EXTREMITY | [...] | | |Transcribed Date/Time: 06/04/2019 11:28 | |Lav Crewman: FLUENCY | | | | | | [...] | + + + | [address] [place] [address] | [facility] | | [place] [address] | DEPARTMENT | | [phone] Name: SANDY MARC Phys: | RADIOLOGY | | JACI BLUE : 1990 Sex: F CSN: | | | [id number] MR# [id number] Exam Date: 06/04/2019 | | | EXAM: X-RAY KNEE 3 VIEWS LEFT [address]2833; X-RAY KNEE 2 VIEWS RIGHT | | | [address] CLINICAL HISTORY: Left knee pain. COMPARISON: None [...] Transcribed Date/Time: 06/04/2019 | | | 23:16 Lav Crewman: FLUENCY | | + + + + + | Procedure Note | + + | Interface, Radiology Results - 06/04/2019 11:21 PM PDT [address] | | [address] [place] [address] | | Name: SANDY MARC Phys: AJCI BLUE : 1990 Sex: F | | CSN: [id number] MR# [id number] Exam Date: 06/04/2019 EXAM:X-RAY KNEE 3 VIEWS | | LEFT [address]78[address]; X-RAY KNEE 2 VIEWS RIGHT [address] CLINICAL HISTORY:Left knee pain. | | COMPARISON:None [...] | | |Transcribed Date/Time: 06/04/2019 23:16 | |Lav Crewman: FLUENCY | | | | | | | + + + +---------+ + + | Performing | Address | City/State/[place] | Phone Number | | Organization | [...] | + + + | [address] [place] [address] | [facility] | | [place] [address] | DEPARTMENT OF | | [phone] Name: SANDY MARC Phys: | RADIOLOGY | | JCAI BLUE : 1990 Sex: F CSN: | | | [id number] MR# [id number] Exam Date: 06/04/2019 | | | EXAM: X-RAY KNEE 3 VIEWS LEFT 64170; X-RAY KNEE 2 VIEWS RIGHT | | | [address]32[address] CLINICAL HISTORY: Left knee pain. COMPARISON: None [...] Transcribed Date/Time: 06/04/2019 | | | 23:16 Lav Crewman: FLUENCY | | + + + + + | Procedure Note | + + | Interface, Radiology Results - 06/04/2019 11:21 PM PDT [address] | | [place] [address] | | Name: SANDY MARC Phys: JACI BLUE : 1990 Sex: F | | CSN: [id number] MR# [id number] Exam Date: 06/04/2019 EXAM:X-RAY KNEE 3 VIEWS | | LEFT [address]363; X-RAY KNEE 2 VIEWS RIGHT 22564 CLINICAL HISTORY:Left knee pain. | | COMPARISON:None [...] | | |Transcribed Date/Time: 06/04/2019 23:16 | |Lav Crewman: FLUENCY | | | | | | [...]
--- OUTSIDE RECORDS SUMMARY | ~2020-03-08 | XMS | Encounter Summary ---
Demographics + + + | Address | [address] | | | [place] [address] | + + + | Home Phone [...] + | Grisel Marc | ECON | [address] | | | | | [place] | | | | | [address] | | + + + + + Care Team Providers + +------+ + | Care Supervisor [employer] Name | Role | Phone | + [...] | | | Orthopaedic Surgery | [place], [place] | | | | | [address] | [address] | | | | | [place], [place] | [phone] | | | | | [address] | | | | | | [phone] | | | +--------+ + + + [...] | + + + + + | [facility] | And | [place] | [phone] | | MEDICAL CENTER | [facility] | [address] | | + + + + + [...] + + | [facility] [facility] [place] | [place] | [phone] | | MEDICAL CENTER | [facility] | [address] | | + + + + + documented in this encounter Visit Diagnoses + + | Diagnosis | + + | Osteomyelitis of knee region (HCC) - Primary Unspecified osteomyelitis, lower leg | + + documented in this encounter"
--- OUTSIDE RECORDS SUMMARY | ~2020-03-08 | XMS | Encounter Summary ---
Demographics + + + | Address | [address] | | | [place] [address] | + + + | Home Phone [...] [place] | | | | | [address] | | + + + + + Care Team Providers + +------+ + | Care Teller Coordinator Name | Role | Phone | [...]
--- OUTSIDE RECORDS SUMMARY | ~2020-03-08 | XMS | Encounter Summary ---
Demographics + + + | Address | [address] | | | [place] [address] | + + + | Home Phone [...] [place] | | | | | [address] | | + + + + + Care Team Providers + +------+ + | Care Dry Cleaning Manager Name | Role | Phone | [...] PPV | | | | | | [address] | | | | | | Loop Physician's | | | | | | [place], [facility] Floor | | | | | | [place], [place] | | | | | | [address] | | | | | | [phone] | | | +--------+ + + + [...]
--- OUTSIDE RECORDS SUMMARY | ~2020-03-08 | XMS | Encounter Summary ---
Demographics + + + | Address | [address] | | | [place] [address] | + + + | Home Phone [...] [place] | | | | | [address] | | + + + + + Care Team Providers + +------+ + | Care Preparation Supervisor Name | Role | Phone | + +------+ + | Adilia Bob SOCIAL SERVICE COORDINATOR | PCP | | + +------+ + [...] | | | | | long-term | [place], [place] | Physician's | | | | | (current) | [address] | Pavilion | | | | | use of | | [place], [place] | | | | | antibiotics | | [address] | | | | | Procedures | | Phone: | | | | | VASC LAB | | [phone] | | | | | UPPER EXT | | Fax: | | | | | PSEUDOANEUR | | [phone] | | | | | COMP LEFT [...] | | | | necrosis of | [facility] | [place] | | | | | bone) ([facility]) | Rd | [address] | | | | | Septic | [place], [place] | [place], | | | | | 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[address] | [place] [address] | | | | | knee, left | | Phone: | | | | | ([facility]) | | [phone] | | | | | Procedures | | Fax: | | | | | CONSULT TO | | [phone] | | | | | INFECTIOUS | [...] use of antibiotics | | | | [place], [place] | | | | | | [address] | | | | | | [phone] | | | +--------+---------+ + + + [...] DISEASES CLINIC FOLLOW UP Primary Care Physician: [facility] [address], [address] [place] [address] Ms. Marc presents to Infectious Diseases Clinic [...] doing rodeo on her horse going around [place], and she was leaning out away from [employer]. Her legs spontaneously broke with pathological fracture. [...] placement of antibiotic beads 09/03/2012: HIRAM Silva [facility] Operative Findings: We began by performing [...] medullary canal. We then used our canal bait digger to thoroughly washout the intramedullary c anal [...] She was seen in the ER in [place] and had a CT Thor ax that [...] a nd follow-up planning. Brigid Hardy PA-C [facility] Department of Infectious Diseases Outpatient IV Antibiotic Therapy Clinic (OPAT) [phone] Pager ID: [phone] [facility] Mail Code D457 [place] [address] documented in this encounter Plan of Treatment [...] + + documented in this encounter Results [facility] VENOUS DUPLEX UPPER EXTREMITY LT (09/29/2012 [...] [place] | | | | | | [place] | | | | | | | [...]
--- OUTSIDE RECORDS SUMMARY | ~2020-03-08 | XMS | Encounter Summary ---
Demographics + + + | Address | [address] | | | [place] [address] | + + + | Home Phone [...] [place] | | | | | [address] | | + + + + + Care Team Providers + +------+ + | Care Java Software Developer Name | Role | Phone | [...] [facility] | | | | | | [address] | | | | | | Loop Physician's | | | | | | [place], [facility] Floor | | | | | | [place], [place] | | | | | | [address] | | | | | | [phone] | | | +--------+ + + + [...]
--- OUTSIDE RECORDS SUMMARY | ~2020-03-08 | XMS | Encounter Summary ---
Demographics + + + | Address | [address] | | | [place] [address] | + + + | Home Phone [...] [place] | | | | | [address] | | + + + + + Care Team Providers + +------+ + | Care Graphic Manager Name | Role | Phone | + +------+ + | Adilia Bob DAYTIME BABYSITTER | PCP | | + +------+ + Encounter Details +--------+ + + + + | Date | Type | Department | Care Team | Description | +--------+ + + + + | 11/25/ | Budget Coordinator | Orthopaedics at | Alton Hernandez MD | Osteomyelitis of | | 2012 | | [facility] [address] | | knee region (HCC) | | | | [address] | | (Primary Dx); | | | | Mailcode: [id number] | | Pathologic fracture | | | | Phys[facility]'s Pavilion | | of tibia or fibula | | | | [place], [place] | | | | | | [address] | | | | | | [phone] | | | +--------+ + + + [...] | + +---------+ + + | [facility] DEPARTMENT OF | | | | [...] | + +---------+ + + | [facility] DEPARTMENT OF | | | | [...]
--- OUTSIDE RECORDS SUMMARY | ~2020-03-08 | XMS | Encounter Summary ---
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 Surgery Check in Locations Admitting [facility] Surgery Check in Time: The Preoperative Medicine [...] it is after office hours, call the [facility] offset press operator at [phone] and ask them to page him or h er. Preparing For Your Surgery Video -- 7 minutes of instructions! If you have access to the Internet and would like to review our instructional video about g etting ready for your procedure day, please follow these directions: Access the [facility] website [email or web address] --> POPULAR RESOURCES --> Patient Guide --> [...] and PMHX. Document will be scanned in [place]. Pulmonary: Within Defined Limits except as noted [...] further investigation and manageme nt. A. Acute IN within 7 days: no B. Unstable angina/Recent IN (7- 30 days): no C. Decompensated CHF: [...] no Rate of cardiac , non fatal IN, non fatal cardiac arrest (RCRI) 0 risk [...] to this patient's care. MAIRA ZHAO NP [facility] CLINIC [address] [place] [address] [phone] signed by Maira Zhao NP at 08/24/2012 [...]
--- OUTSIDE RECORDS SUMMARY | ~2020-03-08 | XMS | Encounter Summary ---
Demographics + + + | Address | [address] | | | [place] [address] | + + + | Home Phone [...] [place] | | | | | [address] | | + + + + + Care Team Providers + +------+ + | Care Emergency Room Rn Name | Role | Phone | + +------+ + | Adilia Bob DRYING FRAME OPERATOR | PCP | | + +------+ + Encounter Details +--------+ + + + + | Date | Type | Department | Care Team | Description | +--------+ + + + + | 03/10/ | Set Rider | Orthopaedics at | Alton Hernandez MD | Osteomyelitis of | | 2012 | | [facility] [address] | | knee region (HCC) | | | | [address] | | (Primary Dx); | | | | Mailcode: [id number] | | Pathologic fracture | | | | Phys[facility]ilion | | of tibia or fibula | | | | [place], [place] | | | | | | [address] | | | | | | [phone] | | | +--------+ + + + [...] | | + +---------+ + + | [facility] DEPARTMENT OF | | | [...]
--- OUTSIDE RECORDS SUMMARY | ~2020-03-08 | XMS | Encounter Summary ---
Demographics + + + | Address | [address] | | | [place] [address] | + + + | Home Phone [...] + | Grisel Marc | ECON | [address] | | | | | [place] | | | | | [address] | | + + + + + Care Team Providers + +------+ + | Care Digital Media Intern Name | Role | Phone | + +------+ + | Hina Peterson | PCP | | + +------+ + Encounter Details +--------+ + + + + | Date | Type | Department | Care Team | Description | +--------+ + + + + | 12/05/ | Hospital | [facility] | | | | 2015 | Encounter | Sports Medicine & | | | | | | Orthopaedic Surgery | | | | | | [address] | | | | | | [place] | | | | | | [address] | | | | | | [phone] | | | +--------+ + + + [...]
--- OUTSIDE RECORDS SUMMARY | ~2020-03-08 | XMS | Encounter Summary ---
Demographics + + + | Address | [address] | | | [place] [address] | + + + | Home Phone [...] [place] | | | | | [address] | | + + + + + Care Team Providers + +------+ + | Care Manager Appointment Name | Role | Phone | + [...] | | | | | Health | [facility] | | | | | | Associates | Rd | | | | | | [address] | [place], [place] | | | | | | [address], [address] | [address] | | | | | | [place], | | | | | | | [place] [address] | | | | | | | Phone: | | | | | | | [phone] | | | | | | | Fax: | | | | | | | [phone] | | +--------+--------+ + + + + [...] | | | | [address] | [place] [address] | | | | | Physician's | [phone] | | | | | [place], 4th floor | | | | | | [place], [place] | | | | | | [address] | | | | | | [phone] | | | +--------+---------+ + + + [...] DISEASES CLINIC FOLLOW UP Referrring Physician: Alton Hernadnez MD [address] [place] [address] Primary Care Physician: [facility] [address], [address] [place] [address] Ms. Marc presents to Infectious Diseases Clinic regarding scheduled follow up. Please refer to prior documentation including inpatient OPAT teaching note, outpatient OPAT patient transport orderly for antibiotic therapy, lab monitoring History other than "Interim History" below is directly copied from previous ID notes to darya mcdonough. In addition I reviewed the history from the patient's [facility] admiss ion, including but not limited [...] placement of antibiotic beads 09/03/2012: HIRAM Woodbuddy [facility] Operative Findings: There were no gross [...] She was seen in the ER in [place] and had a CT Thor ax that [...] Marc follow up in [facility] [place] I spent 20 minutes in a face-to face visit with the patient, with over 50% of time spen t in councelling the patient. We discussed infection, antibiotics, duration of therapy, lab results, and follow-up planning, as described above. ZOEY PECK MD INFECTIOUS DISEASES [address] [place] [address] Mailcode: [id number] [place] [address] documented in this e ncounter Plan of Treatment Not on filedocumented as of this encounter Visit Diagnoses + + | Diagnosis | + + | Osteomyelitis of knee region (HCC) - Primary Unspecified osteomyelitis, lower leg | + + documented in this encounter
--- OUTSIDE RECORDS SUMMARY | ~2020-03-08 | XMS | Encounter Summary ---
Demographics + + + | Address | [address] | | | [place] [address] | + + + | Home Phone [...] + | Grisel Marc | ECON | [address] | | | | | [place] | | | | | [address] | | + + + + + Care Team Providers + +------+ + | Care Flask Carrier Name | Role | Phone | [...] | | [address] | [address] | | | | | [place], [place] | [phone] | | | | | [address] | | | | | | [phone] | | | +--------+ + + + [...]
--- OUTSIDE RECORDS SUMMARY | ~2020-03-08 | XMS | Encounter Summary ---
Demographics + + + | Address | [address] | | | [place] [address] | + + + | Home Phone [...] [place] | | | | | [address] | | + + + + + Care Team Providers + +------+ + | Care Data Migration Lead Name | Role | Phone | + [...] | | | osteomyeliti | Street | [facility] | | | | | s, lower leg | [address] | Rd [place], | | | | | L knee | [place], | [place] | | | | | | [place] [address] | [address] | | | | | | Phone: | | | | | | | [phone] | | | | | | | Fax: | | | | | | | [phone] | | +--------+--------+ + + + + [...] | Osteomyelitis of | | | | [place], [place] | | knee region (HCC); | | | | [address] | | Septic 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| | | [phone] | | knee, left ([facility]) | +--------+---------+ + [...] horseback riding. However in the last w port lions and a half she has developed some [...] seconds capillary refill. Palpable dorsalis pedis and efficiency manager ior tibial pulses. X-RAYS: Reviewed x-rays with [...] of her infection. DARRICK BUITRAGO MD [facility] [address] [facility] Mailcode: [id number] [place] [address] documented in this en counter [...]
--- OUTSIDE RECORDS SUMMARY | ~2020-03-08 | XMS | Encounter Summary ---
Demographics + + + | Address | [address] | | | [place] [address] | + + + | Home Phone [...] [place] | | | | | [address] | | + + + + + Care Team Providers + +------+ + | Care Cardiology Specialist Name | Role | Phone | [...] + + + + | 09/07/ | Medical And Health Services Manager | Infectious | Brigid Hardy | | | 2012 | | Diseases at [facility] | [place] | | | | | [address] | | | | | | [address] Physician's | | | | | | Pavilion, 3rd floor | | | | | | [place], [place] | | | | | | [address] | | | | | | [phone] | | | +--------+ + + + [...]
--- OUTSIDE RECORDS SUMMARY | ~2020-03-08 | XMS | Encounter Summary ---
Demographics + + + | Address | [address] | | | [place] [address] | + + + | Home Phone [...] [place] | | | | | [address] | | + + + + + Care Team Providers + +------+ + | Care Band Maker Name | Role | Phone [...]
--- OUTSIDE RECORDS SUMMARY | ~2020-03-08 | XMS | Encounter Summary ---
Demographics + + + | Address | [address] | | | [place] [address] | + + + | Home Phone [...] [place] | | | | | [address] | | + + + + + Care Team Providers + +------+ + | Care Thin Film Technician Name | Role | Phone | [...] [place] | | | | | [facility] | [address] | | | | | Hospital Admitting | [place], [place] | | | | | Desk Located on the | [address] | | | | | 9th floor | [phone] | | | | | [place], [place] | | | | | | [address] | Viktoriya Jennings MD | | | | | | [address] | | | | | | [place] [facility] | | | | | | [place] [address] | | | | | | [phone] | | | | | | | | +--------+ + + + + Anesthesia Record + + + + + | Procedure Name | Responsible | Anesthesia Start | Anesthesia Stop Time | | | Anesthesiologist | Time | | + + + + + | IRRIGATION AND | Shakila Burgos MD | 09/02/12 1407 | 09/02/12 9335 | | DEBRIDEMENT OF LEFT | | [...]
--- OUTSIDE RECORDS SUMMARY | ~2020-03-08 | XMS | Encounter Summary ---
Demographics + + + | Address | [address] | | | [place] [address] | + + + | Home Phone [...] + | Grisel Marc | ECON | [address] | | | | | [place] | | | | | [address] | | + + + + + Care Team Providers + +------+ + | Care Technical Rep Name | Role | Phone | + +------+ + | Hina Peterson | PCP | | + +------+ + Encounter Details +--------+ + + + + | Date | Type | Department | Care Team | Description | +--------+ + + + + | 12/21/ | Hospital | [facility] | | | | 2019 | Encounter | Sports Medicine & | | | | | | Orthopaedic Surgery | | | | | | [address] | | | | | | [place] | | | | | | [address] | | | | | | [phone] | | | +--------+ + + + [...] + + + | [address] [place] [address] | [facility] | | [place] [address] DEPARTMENT OF | | [phone] Name: SANDY MARC (SHARIF-EE-L) | RADIOLOGY | | Phys: MARLA FRIED : 1990 Sex: F | | | CSN: [id number] MR# [id number] Exam Date: | | | 12/22/2019 EXAM: [...] Transcribed Date/Time: 12/22/2019 14:02 | | | Lpn Rn Hospice: [facility] | | + + + + + | Procedure Note | + + | Interface, Radiology Results - 12/22/2019 2:06 PM PDT [address] | | [address] [place] [address] | | Name: MINNIESANDY (SHARIF-EE-L) Phys: MARLA FRIED : 1990 | | Sex: F CSN: [id number] MR# [id number] Exam Date: 12/22/2019 EXAM:X-RAY | | TIBIA [...] | | |Transcribed Date/Time: 12/22/2019 14:02 | |Lpn Rn Hospice: [facility] | | | | | | [...]
--- OUTSIDE RECORDS SUMMARY | ~2020-03-08 | XMS | Encounter Summary ---
Demographics + + + | Address | [address] | | | [place] [address] | + + + | Home Phone [...] + | Grisel Marc | ECON | [address] | | | | | [place] | | | | | [address] | | + + + + + Care Team Providers + +------+ + | Care Credit And Collections Analyst Name | Role | Phone | [...] | | | | [address] | [address] | | | | | [address] | [phone] | | | | | [place] | | | | | | [address] | | | | | | [phone] | | | +--------+ + + + [...]
--- OUTSIDE RECORDS SUMMARY | ~2020-03-08 | XMS | Encounter Summary ---
Demographics + + + | Address | [address] | | | [place] [address] | + + + | Home Phone [...] + | Grisel Marc | ECON | [address] | | | | | [place] | | | | | [address] | | + + + + + Care Team Providers + +------+ + | Care Child Nurse Name | Role | Phone | [...] | | | | | | [place] [address] | | | +--------+ + + + [...]
--- OUTSIDE RECORDS SUMMARY | ~2020-03-08 | XMS | Encounter Summary ---
Demographics + + + | Address | [address] | | | [place] [address] | + + + | Home Phone [...] + | Grisel Marc | ECON | [address] | | | | | [place] | | | | | [address] | | + + + + + Care Team Providers + +------+ + | Care Technical Systems Architect Name | Role | Phone | [...] | | | Orthopaedic Surgery | [address] [place], [place] | | | | | [address] | [address] | | | | | [place], [place] | [phone] | | | | | [address] | | | | | | [phone] | | | +--------+ + + + [...]
--- OUTSIDE RECORDS SUMMARY | ~2020-03-08 | XMS | Encounter Summary ---
Demographics + + + | Address | [address] | | | [place] [address] | + + + | Home Phone [...] [place] | | | | | [address] | | + + + + + Care Team Providers + +------+ + | Care Chief Crew Scheduler Name | Role | Phone | + [...] floor | | | | | | [place], [place] | | | | | | [address] | | | | | | [phone] | | | +--------+------+ + + + [...] [facility] | [address] | [place] [address] | | | SERVICES, CORE | PARK [...] [facility] | [address] | [place] [address] | | | SERVICES, SPECIAL | PARK [...] | | | | | in the [facility] | | | | | | LaboratoryTest Directory | | | | | | ([facility]). | | | | + + + [...] Directory | | | | | | ([facility]). | | | | + + + [...] Directory | | | | | | ([facility]). | | | | + + + [...] # | | | | | | [phone]). Access | | | | | | complete set of age- | | | | | | and/or | | | | | | gender-specificreference | | | | | | intervals for this test | | | | | | in the [facility] | | | | | | LaboratoryTest Directory | | | | | | ([facility]).Performed | | | | | | by [facility] | | | | | | [facility],[address] [place] [address] | | | | | | [place] [address] | | | | | | [phone]. | | | | | | [facility], Magy Fernandez, | | | | [...] [facility] | [address] | [place], [place] | | | [facility] | | [address] | | + + + + + [...] | + + + + + | [facility] | [address] | [place] [address] | | | [place] | | | | + + + + + documented in this encounter Visit Diagnoses + + | Diagnosis | + + | Osteomyelitis of knee region (HCC) Unspecified osteomyelitis, lower leg | + + documented in this encounter"
--- OUTSIDE RECORDS SUMMARY | ~2020-03-08 | XMS | Encounter Summary ---
Demographics + + + | Address | [address] | | | [place] [address] | + + + | Home Phone [...] + | Grisel Marc | ECON | [address] | | | | | [place] | | | | | [address] | | + + + + + Care Team Providers + +------+ + | Care Sewing Techniques Demonstrator Name | Role | Phone | + [...] | Sports Medicine & | STANTON Johnson [address] [facility] | cruciate ligament of | | | | Orthopaedic Surgery | [facility] | left knee, | | | | [address] | [place], [place] | subsequent encounter | | | | [place], [place] | [address] | (Primary Dx); | | | | [address] | [phone] | 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 Patient was located in the [facility] at the time of the visit. Telepresenter (relative and/or cylinder machine operator) was not used during the visit. The [...] and required multiple surgeries I believe at [facility] to clear this infection over the next 1-2 years. The infection resolved but she has had a painful knee fo r some time. 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 The patient was seen in the office on 06/25/[address] Saba. She was referred to [facility] for possible osteochondral allograft, reconstruction. The patient has been working on smok ing cessation but unfortunately has started to smoke again recently. [facility] will not see the patient until she has documentation of smoking cessation. The patient reports she experienced a pop in her left knee and increased pain on 09/25/2019, she went to [facility] ED in [place], [place] for further evaluation. The patient reports [...] file Gets together: Not on file Attends confucianist service: Not on file Active member of [...] History Narrative Lives with her parents in [place]. Has adequate support should surgery be [...] normal stability on varus /valgus stress examination [facility] Radiology: X-ray examination Left knee 06/04/19 demonstrates [place] changes and mild medial joint space narrowing. There are sclerotic changes noted tibial and femur MRI left knee from [facility] in [place] demonstrates Chronic ACL tear and medial join [...] She was encouraged to follow up with [facility] for possible osteochondral allograft and reconstructio n surgery. She will continue to work on smoking cessation, as this is required for [facility]. T he patient reports she is required [...] an effort to get her in to [facility]. Follow up: PRN, pt instructed to contact the clinic once smoking cessation is complete for new referral to [facility], or if she has any additional questions or concerns. I spent 20 minutes reviewing the patient s query, recent records, relevant images/results , communicating with the patient about their chief complaint & performing documentation. Bambi Bautista PA-C Orthopedic Physician Molding Technician [facility] Orthopaedics and Rehabilitation [facility] Orthopaedics and Sports Medicine [address] [place] [address] Office: [phone] documented in this encoun ter Plan of [...]
--- OUTSIDE RECORDS SUMMARY | ~2020-03-08 | XMS | Encounter Summary ---
Demographics + + + | Address | [address] | | | [place] [address] | + + + | Home Phone [...] + | Grisel Marc | ECON | [address] | | | | | [place] | | | | | [address] | | + + + + + Care Team Providers + +------+ + | Care Commodity Director Name | Role | Phone | [...] | | | [address] | [address] | | | | | [place], [place] | [phone] | | | | | [address] | | | | | | [phone] | | | +--------+ + + + [...]
--- OUTSIDE RECORDS SUMMARY | ~2020-03-08 | XMS | Encounter Summary ---
Demographics + + + | Address | [address] | | | [place] [address] | + + + | Home Phone [...] + | Grisel Marc | ECON | [address] | | | | | [place] | | | | | [address] | | + + + + + Care Team Providers + +------+ + | Care Superior Court Clerk Name | Role | Phone | [...] | | | Orthopaedic Surgery | [place], [place] | | | | | [address] | [address] | | | | | [place], [place] | [phone] | | | | | [address] | | | | | | [phone] | | | +--------+ + + + [...]
--- OUTSIDE RECORDS SUMMARY | ~2020-03-08 | XMS | Encounter Summary ---
Demographics + + + | Address | [address] | | | [place] [address] | + + + | Home Phone [...] [place] | | | | | [address] | | + + + + + Care Team Providers + +------+ + | Care Geomatics Professor Name | Role | Phone | [...] | | | | | | [place], [place] | | | | | | [address] | | | | | | [phone] | | | +--------+ + + + [...]
--- OUTSIDE RECORDS SUMMARY | ~2020-03-08 | XMS | Encounter Summary ---
Demographics + + + | Address | [address] | | | [place] [address] | + + + | Home Phone [...] + | Grisel Marc | ECON | [address] | | | | | [place] | | | | | [address] | | + + + + + Care Team Providers + +------+ + | Care Client Support Administrator Name | Role | Phone | [...] | | | | of right | [address] | [address] | | | | | patella, | [address] | | | | | initial | [place], [place] | [place], [place] | | | | | encounter | [address] | [address] | | | | | Pain in | Phone: | Phone: | | | | | right knee | [phone] | [phone] | | | | | | Fax: | Fax: | | | | | | [phone] | [phone] | +--------+--------+ + + + + Encounter [...] | | [address] | [address] | (Primary Dx) | | | | [address] | [phone] | | | | | [place], [place] | | | | | | [address] | | | | | | [phone] | | | +--------+---------+ + + + [...]
--- OUTSIDE RECORDS SUMMARY | ~2020-03-08 | XMS | Encounter Summary ---
Demographics + + + | Address | [address] | | | [place] [address] | + + + | Home Phone [...] [place] | | | | | [address] | | + + + + + Care Team Providers + +------+ + | Care Press Maintainer Name | Role | Phone | + [...] of knee | Health | [facility] | | | | | region ([facility]) | Associates | [address] [place], | | | | | AVN | [address] | [place] | | | | | (avascular | [address] | [address] | | | | | necrosis of | [place], | | | | | | bone) ([facility]) | [place] [address] | | | | | | Pathologic | Phone: | | | | | | fracture of | [phone] | | | | | | tibia or | Fax: | | | | | | fibula | [phone] | | | | | | Septic [...] | | | | | | | DIRECTOR OF COUNTERINTELLIGENCE | | | | | | | ME PARTIAL | | | | | | | REMOVAL OF | | | | | | | TIBIA ME | | | | | | | INSERTION | | | | | | | DRUG IMPLANT | | | | | | | DEVICE ME | | | | | | | KNEE | | | | | | | SCOPE,SHAVE | | | | | | | ARTICULAR | | | | | | | CART ME | | | | | | | [...] [facility]ilion | | | | | | [place], [place] | | | | | | [address] | | | | | | [phone] | | | +--------+---------+ + + + [...] to be followed by Dr. Peck in [place] whose PA is seeing her in clinic today [facility]. She has been compliant with non-weightbearing [...] seconds capillary refill. Palpable dorsalis pedis and anesthesiology physician ior tibial pulses. X-RAYS: Reviewed x-rays with [...] her infection. DARRICK BUITRAGO MD [facility] [address] [place] [address] Mailcode: Pv[address] [place] [address] documented in this en counter Plan of Treatment Not on filedocumented as of this encounter Visit Diagnoses + + | Diagnosis | + + | Osteomyelitis of knee region (HCC) - Primary Unspecified osteomyelitis, lower leg | + + documented in this encounter
--- OUTSIDE RECORDS SUMMARY | ~2020-03-08 | XMS | Encounter Summary ---
Demographics + + + | Address | [address] | | | [place] [address] | + + + | Home Phone [...] [place] | | | | | [address] | | + + + + + Care Team Providers + +------+ + | Care Geosciences Associate Professor Name | Role | Phone | [...] | 2012 | | [facility] | | DEBRIDEMENT OF LEFT | | | | Rd [address] | | PROXIMAL TIBIAL WITH | | | | Hospital Admitting | | PLACEMENT OF CASO4 | | | | Desk Located on the | | ANTIBIOTICS BEADS; | | | | 9th floor | | microbiology x 11 | | | | [place], [place] | | | | | | [address] | | | +--------+---------+ + + + [...] Angel MD - 09/10/2012 8:12 AM PST [facility] DEPART[facility] OF ORTHOPAEDICS & REHABILITATION INPATIENT HOSPITAL DISCHARGE SUMMARY & INTERDISCIPLINARY INSTRUCTIONS Patient: [place] Marc CSN: [id number] Admission Date: 09/02/2012 Discharge Date: 09/05/2012 Attending Physician: Alton Hernandez MD PCP: SAEED Presley Service: [facility] Orthopaedics & Rehabilitation Diagnoses Principal Final [...] > 5 years. , Historical Med [facility] Orthopaedic Service Pain Policy At the [...] our pleasure. David Peter MD Pager # [phone] documented in this enc ounter Discharge Instructions Instructions Sally Gupta RN - 09/04/2012Formatting of this note might be different f rom the original. ADDITIONAL INFORMATION: [facility] will provide IV antibiotics and education. They can be r eached at: [phone]. You will need to go to [facility] ([phone] - Unit C) for PICC line dressin [...] Arthritis: After Your Visit", log into your [employer] account at [email or web address]. You can enter C265 in the [employer]" search box. Not on [employer]? Review the MyChart section of your After Visit Summary for directions on aysha norris to sign up. [id number] [employer]. Care instructions adapted under license by [facility] [place]. This care instruction is for use with your licensed healthcar e professional. If you have questions about a medical condition or this instruction, always ask your healthcare professional. [employer] disclaims any warranty or liabili ty for your use of this information. Content Version: 9.5.47564; Last Revised: July 18, 2011 Patient Education [...] provider under separate cover. Anticipated OPAT Setting: [facility] [phone] f: [phone] ID/OPAT Clinic follow-up: OPAT clinic visit in 1-2 weeks after discharge in conjunction wit h [facility] Orthopedic Service. We will call to schedule this appointment after patient is disch arged. Interdisciplinary Communication: Please notify OPAT clinic 24-48 hours prior to discharge b y calling [phone] (We need anticipated discharge date & where patient is going; i.e. name, ph one, and fax for home infusion vendor, long term facility, or daily outpatient infusio n center providing outpatient antibiotic therapy services.) [facility] Department of Infectious Disease Outpatient IV Antibiotic Therapy Clinic (OPAT) Pager ID: [phone] [facility] [address]. Mail Code S240 [place] [address] OPAT teaching note: Education and training for [...] symptoms immediately, and if unable to contact [facility] or the infus ion service provider, then to present to the nearest ED. I verified that the patient has a primary care provider, and that they will follow-up with them following this hospitalization in regards to other medical issues such as chronic pain, diabetes, or high blood pressure for which we do not provide any care. I provided the patient with the [facility] welcome letter that reiterates the above teaching. I spent 45 minutes in education and training in patient self management for IV antibiotic a nd PICC line use with greater than 50% spent on counseling and/or coordination of care. [facility] DEPARTMENT: IDC INFECT DIS CONSULT - [id number] Place of Service: Inpatient Date of Service: 09/04/2012 CSN: [id number] Suggested Modifier: OPATC David Angel MD - [...] made with LENCHO Peter MD Pager # [phone] David Angel MD - 09/03/2012 7:53 AM [...] 6 weeks David Peter MD Pager # [phone] Malathi Mccauley MD - 09/03/2012 1:27 AM [...] See brief op note MALATHI BRYANT MD [facility] [place] Department of Orthopaedics & Rehabilitation [address] [place] [address] Mail Code: OP31 [facility] [address] documented in this e ncounter Plan of [...] + + + | IP CONSULT TO [facility] | Routin | 09/03/2012 | [...] | + + + + + | [facility] | [address] | [place] [address] | | | ELLIE LONG | JOY [...] [facility] | [address] | [place] [address] | | | SERVICES, ELLIE | PARK [...] + + + + + | [facility] [employer] | [address] | [place] [address] | | | SERVICES, CORE | [address] | | | + + + + + OPERATION RECORD (09/03/2012 2:02 PM PST) + + | Transcriptions | + + | David Peter MD - 09/03/2012 12:20 PM PST Date: 09/02/2012ttending | | Surgeon: Alton Hernandez M.D.Plant Custodian(s): David | | TAQUERIA Peterreoperative Diagnosis(es):1. Left [...] by | | Dr. Jerald Don in [place] on December 10, 2011. At that time, [...] the reamers. We then used our canal disease control inspector | | to thoroughly wash out [...] Thiago, M.Engr.General Orthopaedics, Trauma JUAN C / [id number] / [id number] / [id number] /D: | | 09/02/2012T: 09/03/2012 | | | | | + + X-RAY PORTABLE CHEST 1 VIEW (09/03/2012 9:51 AM PST) + + + + + + | Component | Value | Ref Range | Performed | Pathologist | | | | | At | Signature | + + + + + + | X-RAY | STUDY: SD CHEST 1 VIEW | | | | [...] (Unit/Room #): | | | 9k Diagnosis: 218330 Osteomyelitis of knee region 186532 AVN | | | (avascular necrosis of bone) 792370 Pathologic fracture of tibia or | | | fibula 822724 Septic arthritis of knee, left Indications: (Select [...] Lot # (or | | | Sticker): [id number] INSERTION SITE: - Basilic Left Local | [...] 09/03/2012Start Time: 0900Patient Location (Unit/Room #): 9kDiagnosis: 597615 | | Osteomyelitis of knee [id number] AVN (avascular necrosis of bone)123279 Pathologic | | fracture of tibia or [id number] Septic arthritis of knee, leftIndications: (Select all [...] CATHETERProduct | | Name: KrystianLisction: Darian Fr60cm Atnp0ey TrimmedLot # (or Sticker): | | [id number] SITE: - BasilicLeftLocal anesthetic used: lidocaineSedation used: [...] |8cm Trimmed | |Lot # (or Sticker): [id number] | | | |INSERTION SITE: - Basilic [...] [facility] | [address] | [place] [address] | | | SERVICES, CORE | PARK [...] | + + + + + | [facility] | [address] | [place] [address] | | | SERVICES, ELLIE | JOY [...] MarquisAuthor: | | | | | | oJse Marquis M.D. I | | | | [...] | | Final SMEAR:No | | [place] | | | | fungal elements seen [...] + | [facility] - | [address] | [place] [address] | | | [place] | | | | + + + [...] | Final SMEAR:AFB not | | [place] | | | | detected source: 10) [...] | + + + + + | [facility] - | [address] | [place] [address] | | | [place] | | | [...] + | [facility] - | [address] | [place] [address] | | | [place] | | | | + + + [...] | Final SMEAR:AFB not | | [place] | | | | detected source: left [...] | + + + + + | [facility] - | [address] | [place] [address] | | | [facility] | | | | + + [...] + | [facility] - | [address] | [place] [address] | | | [place] | | | | + + + [...] + | [facility] - | [address] | [place] [address] | | | [place] | | | [...] | + + + + + | [facility] - | [address] | [place] [address] | | | [place] | | | | + + + [...] | Final SMEAR:AFB not | | [place] | | | | detected source: left [...] | + + + + + | [facility] - | [address] | [place] [address] | | | [place] | | | | + + + [...] | + + + + + | [facility] - | [address] | [place] [address] | | | [place] | | | [...] | | Final SMEAR:No | | [place] | | | | fungal elements seen [...] + | [facility] - | [address] | [place] [address] | | | [place] | | | | + + + [...] | Final SMEAR:AFB not | | [place] | | | | detected source: left [...] | + + + + + | [facility] - | [address] | [place] [address] | | | [place] | | | [...] | + + + + + | [facility] - | [address] | [place] [address] | | | [place] | | | [...] + | [facility] - | [address] | [place] [address] | | | [place] | | | [...] | Final SMEAR:AFB not | | [facility] | | | | detected source: [...] + | [facility] - | [address] | [place] [address] | | | [place] | | | [...] + | [facility] - | [address] | [place] [address] | | | [place] | | | [...] + + + + | [facility] - | [address] | [place] [address] | | | [place] | | | | + + + [...] + | [facility] - | [address] | [place] [address] | | | [place] | | | [...] | + + + + + | [facility] - | [address] | [place] [address] | | | [place] | | | | + + + [...] | + + + + + | [facility] - | [address] | [place] [address] | | | [place] | | | | + + + [...] + | [facility] - | [address] | [place] [address] | | | [place] | | | | + + + [...] | | RESULT | | | [facility] - | | | | Final GRAM STAIN:No | | [place] | | | | squamous epithelial | [...] + | [facility] - | [address] | [place], [place] [address] | | | [place] | | | [...] + | [facility] - | [address] | [place] [address] | | | [place] | | | [...] | Final SMEAR:AFB not | | [place] | | | | detected source: 3) [...] + | [facility] - | [address] | [place] [address] | | | [place] | | | [...] + | [facility] - | [address] | [place] [address] | | | [place] | | | | + + + [...] + | [facility] - | [address] | [place] [address] | | | [place] | | | [...] + | [facility] - | [address] | [place] [address] | | | [place] | | | [...] + | [facility] - | [address] | [place] [address] | | | [place] | | | [...] + | [facility] - | [address] | [place] [address] | | | [place] | | | | + + + [...] | Final SMEAR:AFB not | | [place] | | | | detected source: left [...] + | [facility] - | [address] | [place] [address] | | | [place] | | | | + + + [...] + | [facility] - | [address] | [place] [address] | | | [place] | | | | + + + [...] | | Final CULTURE | | [place] | | | | RESULT:No growth | [...] + | [facility] - | [address] | [place] [address] | | | [place] | | | | + + + [...] [facility] | [address] | [place] [address] | | | PATHOLOGY | [address] [...]
--- OUTSIDE RECORDS SUMMARY | ~2020-03-08 | XMS | Encounter Summary ---
Demographics + + + | Address | [address] | | | [place] [address] | + + + | Home Phone [...] + | Grisel Marc | ECON | [address] | | | | | [place] | | | | | [address] | | + + + + + Care Team Providers + +------+ + | Care Line Lead Name | Role | Phone | + +------+ + | Hina Peterson | PCP | | + +------+ + Encounter Details +--------+ + + + + | Date | Type | Department | Care Team | Description | +--------+ + + + + | 06/04/ | Hospital | [facility] | | | | 2018 | Encounter | Sports Medicine & | | | | | | Orthopaedic Surgery | | | | | | [address] | | | | | | [place] | | | | | | [address] | | | | | | [phone] | | | +--------+ + + + [...] | + + + | [address] | [facility] | | [place] [address] | DEPARTMENT | | [phone] Name: SANDY MARC Phys: | RADIOLOGY | | JACI PAREKH : 1990 Sex: F CSN: | | | [id number] MR# [id number] Exam Date: 06/04/2019 | | | EXAM: X-RAY KNEE 3 VIEWS LEFT 58116; X-RAY KNEE 2 VIEWS RIGHT | | | 79617 CLINICAL HISTORY: Left knee pain. COMPARISON: None [...] Transcribed Date/Time: 06/04/2019 | | | 23:16 Press Officer: YORDY | | + + + + + | Procedure Note | + + | Interface, Radiology Results - 06/04/2019 11:21 PM PDT [address] | | [address] [place] [place] [address] | | Name: SANDY MARC Phys: JACI PAREKH : 1990 Sex: F | | CSN: [id number] MR# [id number] Exam Date: 06/04/2019 EXAM:X-RAY KNEE 3 VIEWS | | LEFT 80448; X-RAY KNEE 2 VIEWS RIGHT 86300 CLINICAL HISTORY:Left knee pain. | | COMPARISON:None [...] | | |Transcribed Date/Time: 06/04/2019 23:16 | |Press Officer: FLUENCY | | | | | | [...] | + + + | [address] [place] [address] | [facility] | | [place] [address] | DEPARTMENT | | [phone] Name: SANDY MARC Phys: | RADIOLOGY | | JACI PAREKH : 1990 Sex: F CSN: | | | [id number] MR# [id number] Exam Date: 06/04/2019 | | | EXAM: X-RAY KNEE 3 VIEWS LEFT 56568; X-RAY KNEE 2 VIEWS RIGHT | | | 11423 CLINICAL HISTORY: Left knee pain. COMPARISON: None [...] Transcribed Date/Time: 06/04/2019 | | | 23:16 Press Officer: YORDY | | + + + + + | Procedure Note | + + | Interface, Radiology Results - 06/04/2019 11:21 PM PDT [address] | | [address] [place] [place] [address] | | Name: SANDY MARC Phys: JACI PAREKH : 1990 Sex: F | | CSN: [id number] MR# [id number] Exam Date: 06/04/2019 EXAM:X-RAY KNEE 3 VIEWS | | LEFT 50354; X-RAY KNEE 2 VIEWS RIGHT 91315 CLINICAL HISTORY:Left knee pain. | | COMPARISON:None [...] | | |Transcribed Date/Time: 06/04/2019 23:16 | |Press Officer: FLUENCY | | | | | | [...]
--- OUTSIDE RECORDS SUMMARY | ~2020-03-08 | XMS | Encounter Summary ---
Demographics + + + | Address | [address] | | | [place] [address] | + + + | Home Phone [...] [place] | | | | | [address] | | + + + + + Care Team Providers + +------+ + | Care Rotor Blade Installer Name | Role | Phone | [...] + + | 09/02/ | Hospital | [facility] [address] | Alton Hernandez MD | | | 2012 - | Encounter | [address] | | | | | | [place] | | | | 09/05/ | | [place] [address] | | | | 2012 | | [phone] | | | +--------+ + + + [...] - 09/10/2012 8:12 AM PST [facility]THOPAEDICS & [facility]IL[facility]ATION INPATIENT HOSPITAL DISCHARGE SUMMARY & INTERDISCIPLINARY INSTRUCTIONS Patient: Sandy Marc CSN: [id number] Admission Date: 09/02/2012 Discharge Date: 09/05/2012 Attending Physician: Alton Hernandez MD PCP: SAEED Presley Service: [facility] Orthopaedics & Rehabilitation Diagnoses Principal Final [...] for > 5 years. , Historical Med [facility] Orthopaedic Service Pain Policy At the [...] our pleasure. David Peter MD Pager # [phone] documented in this enc ounter Discharge Instructions Instructions Sally Gupta RN - 09/04/2012Formatting of this note might be different f rom the original. ADDITIONAL INFORMATION: [facility] will provide IV antibiotics and education. They can be r eached at: [phone]. You will need to go to [facility] ([phone] - Unit C) for PICC line dressin [...] Arthritis: After Your Visit", log into your [employer] [employer] account at [email or web address]. You can enter [email or web address] in the [employer]" search box. Not on [employer]? Review the MyChart section of your After Visit Summary for directions on ho w to sign up. [id number] [employer]. Care instructions adapted under license by [facility] [employer] [facility] [place]. This care instruction is for use with your licensed healthcar e professional. If you have questions about a medical condition or this instruction, always ask your healthcare professional. [employer] disclaims any warranty or liabili ty for your use of this information. Content Version: 9.5.67104; Last Revised: July 18, 2011 Patient Education [...] provider under separate cover. Anticipated OPAT Setting: [facility] [phone] f: [phone] ID/OPAT Clinic follow-up: OPAT clinic visit in 1-2 weeks after discharge in conjunction wit h [facility] Orthopedic Service. We will call to schedule this appointment after patient is disch arged. Interdisciplinary Communication: Please notify OPAT clinic 24-48 hours prior to discharge b y calling [phone] (We need anticipated discharge date & where patient is going; i.e. name, ph one, and fax for home infusion vendor, custodial facility, or daily outpatient infusio center providing outpatient antibiotic therapy services.) [facility] Department of Infectious Disease Outpatient IV Antibiotic Therapy Clinic (OPAT) Pager ID: [phone] [facility]. Mail Code L457 [place] [address] OPAT teaching note: Education and training for patient self management with a PICC line and extended use IV antibiotics I received an OPAT Clinic Consult from the Inpatient Infectious Diseases Service. I have re viewed the records and introduced myself to Sandy Marc today. I explained that I am from the OPAT (Outpatient Parenteral Antibiotic Treatment) team, an out-patient branch of [facility] Infectious Diseases team that has [...] immediately, and if unable to contact [facility] or the infus ion service provider, [...] I provided the patient with the [facility] welcome letter that reiterates the above teaching. I spent 45 minutes in education and training in patient self management for IV antibiotic a nd PICC line use with greater than 50% spent on counseling and/or coordination of care. PSYCHIATRIC DEPARTMENT: IDC INFECT DIS CONSULT - [id number] Place of Service: Inpatient Date of Service: 09/04/2012 CSN: [id number] Suggested Modifier: OPATC David Angel MD - [...] made with LENCHO Peter MD Pager # [phone] David Angel MD - 09/03/2012 7:53 AM [...] 6 weeks David Peter MD Pager # [phone] Malathi Mccauley MD - 09/03/2012 1:27 AM [...] op note MALATHI BRYANT MD [facility] [place] Department of Orthopaedics & Rehabilitation [address] [place] [address] Mail Code: OP31 [facility] [address] documented in this e ncounter Plan of [...] + + + | IP CONSULT TO [facility] | Routin | 09/03/2012 | [...] | + + + + + | [facility] | [address] | [place] [address] | | | SERVICES, CORE | JOY [...] [facility] | [address] | [place] [address] | | | SERVICES, CORE | PARK [...] | + + + + + | [facility] | [address] | [place] [address] | | | SERVICES, [facility] | JOY ZAMORA | | | + + + + + OPERATION RECORD (09/03/2012 2:02 PM PST) + + | Transcriptions | + + | David Peter MD - 09/03/2012 12:20 PM PST Date: 09/02/2012ttending | | Surgeon: Alton Hernandez M.D.Pool Table Mechanic(s): David | | TAQUERIA Peterreoperative Diagnosis(es):1. Left [...] by | | Dr. Jerald Don in [place] on December 10, 2011. At that time, [...] reamers. We then used our canal retail delivery driver | | to thoroughly wash out the [...] | | Thiago, M.Engr.General Orthopaedics, Trauma / [id number] / [id number] / [id number] /D: | | 09/02/2012T: 09/03/2012 | | | | | + + X-RAY PORTABLE CHEST 1 VIEW (09/03/2012 9:51 AM PST) + + + + + + | Component | Value | Ref Range | Performed | Pathologist | | | | | At | Signature | + + + + + + | X-RAY | STUDY: CO CHEST 1 VIEW | | | | [...] (Unit/Room #): | | | 9k Diagnosis: 980393 Osteomyelitis of knee region 930855 AVN | | | (avascular necrosis of bone) [id number] Pathologic fracture of tibia or | | | fibula 503640 Septic arthritis of knee, left Indications: (Select [...] Lot # (or | | | Sticker): [id number] INSERTION SITE: - Basilic Left Local | [...] 09/03/2012Start Time: 0900Patient Location (Unit/Room #): 9kDiagnosis: 207009 | | Osteomyelitis of knee [id number] AVN (avascular necrosis of bone)074522 Pathologic | | fracture of tibia or [id number] Septic arthritis of knee, leftIndications: (Select all [...] CATHETERProduct | | Name: Lobo: Single4 Fr60cm Cbfe9vz TrimmedLot # (or Sticker): | | [id number] SITE: - BasilicLeftLocal anesthetic used: lidocaineSedation used: [...] |8cm Trimmed | |Lot # (or Sticker): [id number] | | | |INSERTION SITE: - Basilic [...] | + + + + + | [facility] | [address] | [place] [address] | | | SERVICES, CORE | JOY [...] | + + + + + | [facility] | [address] | [place] [address] | | | MERCEDES, ELLIE | JOY [...] | | | Final SMEAR:No | | [facility] | | | | fungal elements seen [...] + | [facility] - | [address] | [place] [address] | | | [facility] [place] | | | | + + + [...] + | [facility] - | [address] | [place] [address] | | | [place] | | | [...] + | [facility] - | [address] | [place] [address] | | | [facility] | | | | + + + [...] + | [facility] - | [address] | [place] [address] | | | [facility] | | | | + + + [...] | | RESULT | Tissue | | [facility] - | | | | Final SMEAR:No | | [facility] | | | | fungal elements seen [...] + | [facility] - | [address] | [place] [address] | | | [place] | | | [...] | + + + + + | [facility] - | [address] | [place] [address] | | | [place] | | | [...] + | [facility] - | [address] | [place] [address] | | | [facility] | | | | + + + [...] + + + + + | [facility] - | [address] | [place] [address] | | | [place] | | | [...] + + + + + | [facility] - | [address] | [place] [address] | | | [facility] | | | | + + + [...] | | | Final SMEAR:No | | [facility] | | | | fungal elements seen [...] + | [facility] - | [address] | [place] [address] | | | [facility] [place] | | | | + + + [...] | Final SMEAR:AFB not | | [facility] | | | | detected source: left [...] + | [facility] - | [address] | [place] [address] | | | [place] | | | [...] + | [facility] - | [address] | [place] [address] | | | [place] | | | [...] + | [facility] - | [address] | [place] [address] | | | [facility] | | | | + + + [...] | Final SMEAR:AFB not | | [facility] | | | | detected source: left [...] | + + + + + | [facility] - | [address] | [place] [address] | | | [facility] | | | | + [...] + | [facility] - | [address] | [place] [address] | | | [facility] | | | | + + + [...] | | Final SMEAR:No | | [facility] [place] | | | | fungal elements seen [...] + | [facility] - | [address] | [place] [address] | | | [place] | | | [...] CULTURE | C AFBSource: Tissue | | [facility] - | | | RESULT | | | [facility] - | | | | Final SMEAR:AFB not | | [facility] | | | | detected source: left [...] + | [facility] - | [address] | [place] [address] | | | [facility] | | | | + + + [...] + | [facility] - | [address] | [place] [address] | | | [facility] | | | | + + + [...] | + + + + + | [facility] - | [address] | [place] [address] | | | [place] | | | [...] + | [facility] - | [address] | [place] [address] | | | [facility] | | | | + + + [...] | | Final GRAM STAIN:No | | [facility] | | | | squamous epithelial | [...] + | [facility] - | [address] | [place] [address] | | | [facility] | | | | + + + [...] | | | Final SMEAR:No | | [facility] | | | | fungal elements seen [...] + | [facility] - | [address] | [place] [address] | | | [facility] | | | | + + + [...] + | [facility] - | [address] | [place] [address] | | | [place] | | | [...] | | Final GRAM STAIN:No | | [facility] | | | | squamous epithelial | [...] + | [facility] - | [address] | [place] [address] | | | [facility] | | | | + + + [...] | | | Final SMEAR:No | | [facility] | | | | fungal elements seen [...] + | [facility] - | [address] | [place] [address] | | | [place] | | | [...] + | [facility] - | [address] | [place] [address] | | | [facility] | | | | + + + [...] | + + + + + | [facility] - | [address] | [place] [address] | | | [place] | | | [...] + | [facility] - | [address] | [place] [address] | | | [place] | | | [...] | Final SMEAR:AFB not | | [facility] | | | | detected source: left [...] + | [facility] - | [address] | [place] [address] | | | [facility] | | | | + + + [...] | + + + + + | [facility] - | [address] | [place] [address] | | | [place] | | | [...] | | | Final CULTURE | | [facility] | | | | RESULT:No growth | [...] + | [facility] - | [address] | [place] [address] | | | [facility] | | | | + + + [...] | + + + + + | [facility] | [address] | [place] [address] | | | PATHOLOGY | [address] | | | + + + + + documented in this encounter Visit Diagnoses + + | Diagnosis | + + | Osteomyelitis of knee region (HCC) - Primary Unspecified osteomyelitis, lower leg | + + | AVN (avascular necrosis of bone) ([facility]) Aseptic necrosis of bone, site unspecified | + + | Pathologic fracture of tibia or fibula Pathologic fracture of tibia and fibula | + + | Septic arthritis of knee, left ([facility]) Pyogenic arthritis, lower leg | + [...]
--- OUTSIDE RECORDS SUMMARY | ~2020-03-08 | XMS | Encounter Summary ---
Demographics + + + | Address | [address] | | | [place] [address] | + + + | Home Phone [...] [place] | | | | | [address] | | + + + + + Care Team Providers + +------+ + | Care Customs House Broker Name | Role | Phone | + +------+ + | Adilia Bob INDEX EDITOR | PCP | | + +------+ + Encounter Details +--------+ + + + + | Date | Type | Department | Care Team | Description | +--------+ + + + + | 10/16/ | Neuropsychologist | Infectious | Brigid Hardy | Osteomyelitis of | | 2012 | | [facility] at [facility] | [place], [place] | knee region (HCC) | | | | [address] | | (Primary Dx) | | | | [address] | | | | | | [address], [address]rd floor | | | | | | [place], [place] | | | | | | [address] | | | | | | [phone] | | | +--------+ + + + [...]
--- OUTSIDE RECORDS SUMMARY | ~2020-03-08 | XMS | Encounter Summary ---
Demographics + + + | Address | [address] | | | [place] [address] | + + + | Home Phone [...] [place] | | | | | [address] | | + + + + + Care Team Providers + +------+ + | Care Sat Instructor Name | Role | Phone | [...] [address] | | | | | | [place], [place] | | | | | | [address] | | | | | | [phone] | | | +--------+ + + + [...]
--- OUTSIDE RECORDS SUMMARY | ~2020-03-08 | XMS | Encounter Summary ---
Demographics + + + | Address | [address] | | | [place] [address] | + + + | Home Phone [...] [place] | | | | | [address] | | + + + + + Care Team Providers + +------+ + | Care Gas Main Fitter Helper Name | Role | Phone | [...] | | | | | Health | [facility] | | | | | | Associates | Rd | | | | | | [address] | [place], [place] | | | | | | [address], [address] | [address] | | | | | | [place], | | | | | | | [place] [address] | | | | | | | Phone: | | | | | | | [phone] | | | | | | | Fax: | | | | | | | [phone] | | +--------+--------+ + + + + [...] | | | | [address] | [place] [address] | | | | | [address], 3rd floor | [phone] | | | | | [facility] [place] | | | | | | [address] | | | | | | [phone] | | | +--------+---------+ + + + [...] UP Referrring Physician: Alton Hernandez MD [address] [place] [address] Primary Care Physician: [facility] [address], [address] [place] [address] Ms. Marc presents to Infectious Diseases Clinic [...] placement of antibiotic beads 09/03/2012: HIRAM Silva [facility] Operative Findings: There were no [...] She was seen in the ER in [place] and had a CT Thor ax that [...] described above. ZOEY PECK MD INFECTIOUS DISEASES [address] [place] [address] Mailcode: L608 [place] [address] documented in this e ncounter Plan of Treatment Not on filedocumented as of this encounter Visit Diagnoses + + | Diagnosis | + + | Osteomyelitis of knee region (HCC) - Primary Unspecified osteomyelitis, lower leg | + + documented in this encounter
--- OUTSIDE RECORDS SUMMARY | ~2020-03-08 | XMS | Encounter Summary ---
Demographics + + + | Address | [address] | | | [place] [address] | + + + | Home Phone [...] + | Grisel Marc | ECON | [address] | | | | | [place] | | | | | [address] | | + + + + + Care Team Providers + +------+ + | Care Steeping Press Operator Name | Role | Phone | + +------+ + | Hina Peterson | PCP | | + +------+ + Encounter Details +--------+ + + + + | Date | Type | Department | Care Team | Description | +--------+ + + + + | 10/07/ | Hospital | [facility] | | | | 2019 | Encounter | Sports Medicine & | | | | | | Orthopaedic Surgery | | | | | | [address] | | | | | | [place] | | | | | | [address] | | | | | | [phone] | | | +--------+ + + + [...] | + + + | [address] [place] [address] | [facility] | | [place] [address] | DEPARTMENT OF | | [phone] Name: SANDY MARC (SHARIF-EE-L) | RADIOLOGY | | Phys: MARLA FRIED : 1990 Sex: F | | | CSN: [id number] MR# [id number] Exam Date: | | | 10/07/2019 EXAM: X-RAY KNEE 3 VIEWS LEFT [id number] CLINICAL | | | HISTORY: Left knee [...] proximal | | | tibial metadiaphysis. 2. Alwn-if-dkepvsiy medial femorotibial joint | | | degeneration. REPORT SIGNED IN OTHER VENDOR SYSTEM | | | 10/08/2019 Reported by: HELENA BARRAZA MD Electronically | | | signed by: HELENA BARRAZA MD Transcribed Date/Time: 10/08/2019 | | | 13:44 Information Assurance Specialist: FLUENCY | | + + + + + | Procedure Note | + + | Interface, Radiology Results - 10/08/2019 1:51 PM PST [address] | | [address] [place] [address] | | Name: SANDY MARC (SHARIF-EE-L) Phys: MARLA FRIED : 1990 | | Sex: F CSN: [id number] MR# [id number] Exam Date: 10/07/2019 EXAM:X-RAY | | KNEE 3 VIEWS LEFT [id number] CLINICAL HISTORY:Left knee pain. COMPARISON:06/14/2019 left | [...] in the | | proximal tibial metadiaphysis.2. Lmzw-pn-hosaimox medial femorotibial joint | | degeneration. REPORT [...] in the proximal tibial metadiaphysis. | |2. Ahoo-so-reihjnxw medial femorotibial joint degeneration. | | | | | | REPORT SIGNED IN OTHER VENDOR SYSTEM 10/08/2019 | |Reported by: HELENA BARRAZA MD | | | |Electronically signed by: HELENA BARRAZA MD | | | |Transcribed Date/Time: 10/08/2019 13:44 | |Information Assurance Specialist: FLUENCY | | | | | [...]
--- OUTSIDE RECORDS SUMMARY | ~2020-03-08 | XMS | Encounter Summary ---
Demographics + + + | Address | [address] | | | [place] [address] | + + + | Home Phone [...] + | Grisel Marc | ECON | [address] | | | | | [place] | | | | | [address] | | + + + + + Care Team Providers + +------+ + | Care Crane Rigger Name | Role | Phone | [...] | | | | [address] | [address] | | | | | [place] | [phone] | | | | | [place] | | | | | | [address] | | | | | | [phone] | | | +--------+ + + + [...]
--- OUTSIDE RECORDS SUMMARY | ~2020-03-08 | XMS | Encounter Summary ---
Demographics + + + | Address | [address] | | | [place] [address] | + + + | Home Phone [...] [place] | | | | | [address] | | + + + + + Care Team Providers + +------+ + | Care Wharf Laborer Name | Role | Phone | [...] [place] | | | | | | [place], [place] | | | | | | [address] | | | | | | [phone] | | | +--------+ + + + [...] | | e | of knee, left ([facility]) | | + +------+--------+ + + | SYNOVIAL FLUID, | Lab | Routin | Septic arthritis | Ordered: 02/12/2013 | | CRYSTALS | | e | of knee, left ([facility]) | | + +------+--------+ + + | [...]
--- OUTSIDE RECORDS SUMMARY | ~2020-03-08 | XMS | Encounter Summary ---
Demographics + + + | Address | [address] | | | [place] [address] | + + + | Home Phone [...] [place] | | | | | [address] | | + + + + + Care Team Providers + +------+ + | Care Mobile Home Lot Utility Worker Name | Role | Phone | [...]
--- OUTSIDE RECORDS SUMMARY | ~2020-03-08 | XMS | Encounter Summary ---
Demographics + + + | Address | [address] | | | [place] [address] | + + + | Home Phone [...] + | Grisel Marc | ECON | [address] | | | | | [place] | | | | | [address] | | + + + + + Care Team Providers + +------+ + | Care Tongue And Groove Machine Setter Name | Role | Phone [...] | | | [address] | [address] | | | | | [place] | [phone] | | | | | [address] | | | | | | [phone] | | | +--------+ + + + [...]
--- OUTSIDE RECORDS SUMMARY | ~2020-03-08 | XMS | Encounter Summary ---
Demographics + + + | Address | [address] | | | [place] [address] | + + + | Home Phone [...] + | Grisel Marc | ECON | [address] | | | | | [place] | | | | | [address] | | + + + + + Care Team Providers + +------+ + | Care Warehouse Team Leader Name | Role | Phone | [...] | | | | [address] | [address] | | | | | [place] | [phone] | | | | | [place] | | | | | | [address] | | | | | | [phone] | | | +--------+ + + + [...]
--- OUTSIDE RECORDS SUMMARY | ~2020-03-08 | XMS | Encounter Summary ---
Demographics + + + | Address | [address] | | | [place] [address] | + + + | Home Phone [...] [place] | | | | | [address] | | + + + + + Care Team Providers + +------+ + | Care Pipelayer Name | Role | Phone | + [...] Pavilion | | | | | | [place], [place] | | | | | | [address] | | | | | | [phone] | | | +--------+ + + + [...]
--- OUTSIDE RECORDS SUMMARY | ~2020-03-08 | XMS | Encounter Summary ---
Demographics + + + | Address | [address] | | | [place] [address] | + + + | Home Phone [...] + | Grisel Marc | ECON | [address] | | | | | [place] | | | | | [address] | | + + + + + Care Team Providers + +------+ + | Care Toe Former Name | Role | Phone | + [...] | Sports Medicine & | STANTON Johnson [address] | (Primary Dx); | | | | Orthopaedic Surgery | [address] | Rupture of anterior | | | | [address] | [place], [place] | cruciate ligament of | | | | [place], [place] | [address] | left knee, | | | | [address] | [phone] | subsequent | | | | [phone] | | encounter; Articular | | | [...] required multiple surgeries I believe at [facility] to clear th is infection over the next 1-2 years. The infection resolved but she has had a painful knee for some time. 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 The patient was seen in the office on 06/25/[address] Saba. She was referred to [facility] for possible osteochondral allograft, reconstruction. The patient has been working on smoki ng cessation but unfortunately has started to smoke again recently. [facility] will not see the p atient until she has documentation of smoking cessation. The patient reports she experienced a pop in her left knee and increased pain on 09/25/2019, she went to [facility] ED in [place], [place] for further evaluation. The patient reports she was told by the ED provider that her knee was the worst knee he has ever seen for her age and her knee was hanging on by a thread." She denies any new injury, trauma or falls. 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 The patient stated that she received [...] for follow up of ED visit at [facility] in [place] due to intense pain and slight bruising [...] previous surgeries. They prescribed the p atient [place] and instructed her to follow up with [...] file Gets together: Not on file Attends church service: Not on file Active member of [...] History Narrative Lives with her parents in [place]. Has adequate support should surgery be [...] MRI left knee from [facility] in [place] demonstrates Chronic ACL tear and medial join [...] was encouraged to follow up with [facility] for possible osteochondral allograft and reconst ruction surgery. She will continue to work on smoking cessation, as this is required for [facility]. The patient reports she is required to [...] effort to get her in to [facility]. Patient will return to the [facility] via video visit in 2 weeks to check on her symptoms. Follow up: 2 weeks Bambi Fried PA-C Orthopedic Physician Advertising Copy Writer [facility] Orthopaedics and Rehabilitation [facility] Orthopaedics and Sports Medicine [address] [place] [address] [place] [address] Office: [phone] documented in th is encounter Plan of Treatment Not on filedocumented as of this encounter Results X-RAY TIBIA & FIBULA 2 VIEWS LT (12/22/2019 11:37 AM PDT) + + | Specimen | + + | | + + + + + | Narrative | Performed At | + + + | [address] | [facility] | | [place], [place] [address] | DEPARTMENT OF | | [phone] Name: SANDY MARC (DINORA-EE-L) | RADIOLOGY | | Phys: BAMBI FRIED : 1990 Sex: F | | | CSN: [id number] MR# [id number] Exam Date: | | | 12/22/2019 EXAM: [...] Transcribed Date/Time: 12/22/2019 14:02 | | | Auto Mechanics Teacher: YORDY | | + + + + + | Procedure Note | + + | Interface, Radiology Results - 12/22/2019 2:06 PM PDT [address] | | [place] [address] | | Name: SANDY MARC (DINORA-EE-L) Phys: BAMBI FRIED : 1990 | | Sex: F CSN: [id number] MR# [id number] Exam Date: 12/22/2019 EXAM:X-RAY | | TIBIA [...] | | |Transcribed Date/Time: 12/22/2019 14:02 | |Auto Mechanics Teacher: FLUENCY | | | | | [...]
--- OUTSIDE RECORDS SUMMARY | ~2020-03-08 | XMS | Encounter Summary ---
Demographics + + + | Address | [address] | | | [place] [address] | + + + | Home Phone [...] + | Grisel Marc | ECON | [address] | | | | | [place] | | | | | [address] | | + + + + + Care Team Providers + +------+ + | Care Stretcher Leveler Operator Helper Name | Role | Phone [...] Sports Medicine & | STANTON Johnson [address] [facility] | | | | | Orthopaedic Surgery | [facility] | | | | | [address] | [place], [place] | | | | | [place] | [address] | | | | | [address] | [phone] | | | | | [phone] | | | +--------+ + + + [...]
--- OUTSIDE RECORDS SUMMARY | ~2020-03-08 | XMS | Encounter Summary ---
Demographics + + + | Address | [address] | | | [place] [address] | + + + | Home Phone [...] [place] | | | | | [address] | | + + + + + Care Team Providers + +------+ + | Care Case Advocate Name | Role | Phone | + [...] s of knee | [address] | [facility] | | | | | region ([facility]) | [place], | ROAD | | | | | Rupture of | [place] | [place], [place] | | | | | anterior | [address] | [address] | | | | | cruciate | Phone: | Phone: | | | | | ligament of | [phone] | [phone] | | | | | left knee, | Fax: | | | | | | subsequent | [phone] | | | | | | encounter [...] | Sports Medicine & | STANTON Johnson [address] | | | | | Orthopaedic Surgery | [address] | | | | | [address] | [place], [place] | | | | | [place], [place] | [address] | | | | | [address] | [phone] | | | | | [phone] | | | +--------+ + + + [...]
--- OUTSIDE RECORDS SUMMARY | ~2020-03-08 | XMS | Encounter Summary ---
Demographics + + + | Address | [address] | | | [place] [address] | + + + | Home Phone [...] [place] | | | | | [address] | | + + + + + Care Team Providers + +------+ + | Care Director Marketing Name | Role | Phone | + [...] floor | | | | | | [place], [place] | | | | | | [address] | | | | | | [phone] | | | +--------+------+ + + + [...] | + + + + + | [facility] | [address] | [place] [address] | | | ELLIE LONG | JOY [...] + | [facility] - | [address] | [place] [address] | | | [place] | | | | + + + [...] | + + + + + | [facility] | [address] [facility] | [place] [address] | | | SERVICES, CORE | JOY [...] | | | LABORATORY | | | VINCENTIAN | | | SERVICES, | | | [...] FLIP SIMMONS | [address] | [place] [address] | | | SERVICES, CORE | [address] | | | + + + + + documented in this encounter Visit Diagnoses + + | Diagnosis | + + | Osteomyelitis of knee region (HCC) Unspecified osteomyelitis, lower leg | + + documented in this encounter"
--- OUTSIDE RECORDS SUMMARY | ~2020-03-08 | XMS | Encounter Summary ---
Demographics + + + | Address | [address] | | | [place] [address] | + + + | Home Phone [...] [place] | | | | | [address] | | + + + + + Care Team Providers + +------+ + | Care Appliances Sample Maker Name | Role | Phone | [...]
--- OUTSIDE RECORDS SUMMARY | ~2020-03-08 | XMS | Encounter Summary ---
Demographics + + + | Address | [address] | | | [place] [address] | + + + | Home Phone [...] + | Grisel Marc | ECON | [address] | | | | | [place] | | | | | [address] | | + + + + + Care Team Providers + +------+ + | Care Internetworking Technician Name | Role | Phone | [...] | | | Orthopaedic Surgery | Blvd [place], [place] | chronicity (Primary | | | | [address] | [address] | Dx); Tears of | | | | [place], [place] | [phone] | meniscus and | | | | [address] | | anterior cruciate | | | | [phone] | | ligament of left | | [...] Marc is a 28 y.o. female from [place] who presents to the office today for [...] was referred fo r an MRI in [place] to evaluate this further. Her MRI description [...] MRI left knee from [facility] in [place] demonstrates Chronic ACL tear and medial join [...] tibial plateau fracture requiring multiple surgeries and terminal operations manager IV antibiotics. Gisselle connolly was doing well until recent hyperextension injury. We reviewed detail of MRI including ACL tear, medial meniscus tear and medial cartilage loss. Risks of ACL reconstruction include i nfection and potentially continued pain/worsening of medial compartment arthritis. I will re view case with Dr Saba. Can potentially refer to [facility] if she is interested in ACL recon. Follow up: w/ Jayant Blue PA-C [facility] Orthopaedics and Rehabilitation Orthopaedic Physician Media Professional [facility]opa[facility] [address] [place] [address] Office: [phone] documented in this e ncounter Plan of [...]
--- OUTSIDE RECORDS SUMMARY | ~2020-03-08 | XMS | Encounter Summary ---
Demographics + + + | Address | [address] | | | [place] [address] | + + + | Home Phone [...] [place] | | | | | [address] | | + + + + + Care Team Providers + +------+ + | Care Scientific Process Operator Name | Role | Phone | [...] | | | | necrosis of | [facility] | [place] | | | | | bone) (HCC) | Rd | [address] | | | | | Septic | [place], [place] | [place], | | | | | 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[address] | [place] [address] | | | | | knee, left | | Phone: | | | | | ([facility]) | | [phone] | | | | | Procedures | | Fax: | | | | | CONSULT TO | | [phone] | | | | | INFECTIOUS | [...] | | | Osteomyeliti | Family | [address] [facility] | | | | | s of knee | Health | [facility] | | | | | region ([facility]) | Associates | Rd [place], | | | | | AVN | [address] | [place] | | | | | (avascular | [address] | [address] | | | | | necrosis of | [place], | | | | | | bone) ([facility]) | [place] [address] | | | | | | Pathologic | Phone: | | | | | | fracture of | [phone] | | | | | | tibia or | Fax: | | | | | | fibula | [phone] | | | | | | Septic | | | | | | | 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| | | | | | knee, left | | | | | | | ([facility]) | | | | | | | Procedures | | | | | | | REQUEST TO | | | | | | | SURGERY | | | | | | | NEW CAR INSPECTOR | | | | | | | CT PARTIAL | | | | | | | REMOVAL OF | | | | | | | TIBIA CT | | | | | | | INSERTION | | | | | | | DRUG IMPLANT | | | | | | | DEVICE CT | | | | | | | KNEE | | | | | | | SCOPE,SHAVE | | | | | | | ARTICULAR | | | | | | | CART CT | | | | | | | [...] of knee | [address] | [address] | | | | | region ([facility]) | Rd | Research | | | | | Procedures | [place], [place] | [place] | | | | | MRI KNEE | [address] | [place], [place] | | | | | LT WWO CONT | Phone: | [address] | | | | | | [phone] | Phone: | | | | | | Fax: | [phone] | | | | | | [phone] | Fax: | | | | | | | [phone] | +--------+--------+ + + + + Reason [...] s, lower leg | REFERRING | Rd [place], | | | | | L medial | PROVIDER PER | [place] | | | | | tibial | PT | [address] | | | | | plateau fx [...] | [facility] | | of bone) ([facility]); | | | | [place], [place] | | Pathologic fracture | | | | [address] | | of tibia or fibula; | | | | [phone] | | Septic 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| | | | | knee, left ([facility]) | +--------+---------+ + + [...] might be different fr om the original. [facility] Orthopaedic Clinic- New Patient Referring Physician: [...] plateau fracture by Dr. Jerald Don in [place] on 12/10/11. Calcium phosphate cement was used [...] MRI w/ contrast done on 07/09/12 at [facility], but are unable to view [...] subchondral | | | | | | J1iafhti hyperintensity | | | | | | [...] | | + +---------+ + + | [facility] DEPARTMENT OF | | | [...] + | [facility] - | [address] | [place] [address] | | | [place] | | | | + + + [...] | + + + + + | [facility] LABORATORY | [address] [facility] | [place] [address] | | | SERVICES, CORE | PARK [...] | | | LABORATORY | | | [place] | | | SERVICES, | | | [...] | + + + + + | [facility] | [address] | [place] [address] | | | SERVICES, CORE | JOY [...]
--- OUTSIDE RECORDS SUMMARY | ~2020-03-08 | XMS | Encounter Summary ---
Demographics + + + | Address | [address] | | | [place] [address] | + + + | Home Phone [...] [place] | | | | | [address] | | + + + + + Care Team Providers + +------+ + | Care Double Ending Machine Operator Name | Role | Phone [...] [place] | | | | | | [place], [place] | | | | | | [address] | | | | | | [phone] | | | +--------+ + + + [...] | | e | of knee, left ([facility]) | | + +------+--------+ + + | SYNOVIAL FLUID, | Lab | Routin | Septic arthritis | Ordered: 02/12/2013 | | CRYSTALS | | e | of knee, left ([facility]) | | + +------+--------+ + + [...]
--- OUTSIDE RECORDS SUMMARY | ~2020-03-08 | XMS | Clinical Summary ---
Demographics + + + | Address | [address] | | | [place] [address] | + + + | Home Phone | | + + + | Preferred Language | Unknown | + + + | Marital Status | | + + + | Rastafari Affiliation | Unknown | + + + | Race | Unknown | + + + | Ethnic Group | Unknown | + + + Author + + + | Author | [facility] | | | and [place] | + + + | Organization | [facility] | | [...] Providers + +------+ + | Care Director Integrated Name | Role | Phone | + [...] + | Maternal Aunt | | | [place] | | | | (Age | | [...] Health Maintenance | Due Date | Last | Comments | | | | Done | | + + + + + | Cervical Cancer | | | | | Screening (Pap) | 0 | | | + + + + + | Vaccine: Influenza | | | | | (#1) | 0 | | | + + + + + | Vaccine: | | 07/27/20 | | | Dtap/Tdap/Td (7 - | 5 | 15, | | | Td) | | 05/10/19 | | | | | 95, | | | | | 04/09/19 | | | | | 91, | | | | | Addition | | | | | al | | | | | history | | | | | exists | | + + [...] | [employer] | [facility] | [id number] | | [phone] | | Medica | [...] | 09/24/ | | [address] | | | autumn/Gianni | | 1990 | [phone] | [place] | | | nayla | | | 2 (Home) | [address] | + +--------+ +--------+ + + Advance Directives + + + + + | Type | Date Recorded | Patient | Explanation | | | | Marketing Strategist | | + + + + + | Power of | | | | | Bottle Washer | | | | + + + + + | Advance | 06/19/2019 2:16 | | | | Directive | PM | | | + + + + +
--- OUTSIDE RECORDS SUMMARY | ~2020-03-08 | XMS | Encounter Summary ---
Demographics + + + | Address | [address] | | | [place] [address] | + + + | Home Phone [...] [place] | | | | | [address] | | + + + + + Care Team Providers + +------+ + | Care Administrator Health Care Facility Name | Role | Phone | + [...] | | | [address] | [address] | | | | | [place] | [phone] | | | | | [address] | | | | | | [phone] | | | +--------+ + + + [...]
--- OUTSIDE RECORDS SUMMARY | ~2020-03-08 | XMS | Encounter Summary ---
Demographics + + + | Address | [address] | | | [place] [address] | + + + | Home Phone [...] [place] | | | | | [address] | | + + + + + Care Team Providers + +------+ + | Care Rn Orthopaedic Name | Role | Phone | + [...] [address] | | | | | | [place], [place] | | | | | | [address] | | | | | | [phone] | | | +--------+ + + + [...]
--- OUTSIDE RECORDS SUMMARY | ~2020-03-08 | XMS | Encounter Summary ---
Demographics + + + | Address | [address] | | | [place] [address] | + + + | Home Phone [...] [place] | | | | | [address] | | + + + + + Care Team Providers + +------+ + | Care Flower Cutter Name | Role | Phone | [...] | | | | Loop [address] | [place] [address] | | | | | [place], [facility] floor | [phone] | | | | | [place], [place] | | | | | | [address] | | | | | | [phone] | | | +--------+ + + + [...]
--- OUTSIDE RECORDS SUMMARY | ~2020-03-08 | XMS | Encounter Summary ---
Demographics + + + | Address | [address] | | | [place] [address] | + + + | Home Phone [...] Grisel Marc | ECON | [address] | | | | | [place] | | | | | [address] | | + + + + + Care Team Providers + +------+ + | Care Test Architect Name | Role | Phone | + +------+ + | Hina Peterson | PCP | | + +------+ + Encounter Details +--------+ + + + + | Date | Type | Department | Care Team | Description | +--------+ + + + + | 06/04/ | Hospital | [facility] | | | | 2018 | Encounter | Sports Medicine & | | | | | | Orthopaedic Surgery | | | | | | [address] | | | | | | [place] | | | | | | [address] | | | | | | [phone] | | | +--------+ + + + [...] | + + + | [address] | [facility] | | [place] [address] | DEPARTMENT | | [phone] Name: SANDY MARC Phys: | RADIOLOGY | | JACI PAREKH : 1990 Sex: F CSN: | | | [id number] MR# [id number] Exam Date: 06/04/2019 | | | EXAM: X-RAY KNEE 3 VIEWS LEFT [address]; X-RAY KNEE 2 VIEWS RIGHT | | | [address] CLINICAL HISTORY: Left knee pain. COMPARISON: None [...] Transcribed Date/Time: 06/04/2019 | | | 23:16 Railroad Firer/Fireman: YORDY | | + + + + + | Procedure Note | + + | Interface, Radiology Results - 06/04/2019 11:21 PM PDT [address] | | [address] [place] [address] | | Name: SANDY MARC Phys: JACI PAREKH : 1990 Sex: F | | CSN: [id number] MR# [id number] Exam Date: 06/04/2019 EXAM:X-RAY KNEE 3 VIEWS | | LEFT 83127; X-RAY KNEE 2 VIEWS RIGHT [address] CLINICAL HISTORY:Left knee pain. | | COMPARISON:None [...] VENDOR SYSTEM | | 06/04/2019 Reported by: HLEENA BARRAZA MD Electronically signed by: HELENA | [...] | | |Transcribed Date/Time: 06/04/2019 23:16 | |Railroad Firer/Fireman: FLUENCY | | | | | | [...] + + + | [address] [place] [address] | [facility] | | [place] [address] | DEPARTMENT | | [phone] Name: SANDY MARC Phys: | RADIOLOGY | | JACI PAREKH : 1990 Sex: F CSN: | | | [id number] MR# [id number] Exam Date: 06/04/2019 | | | EXAM: X-RAY KNEE 3 VIEWS LEFT [address]; X-RAY KNEE 2 VIEWS RIGHT | | | [address] CLINICAL HISTORY: Left knee pain. COMPARISON: None [...] Electronically | | | signed by: HELENA BARARZA MD Transcribed Date/Time: 06/04/2019 | | | 23:16 Railroad Firer/Fireman: YORDY | | + + + + + | Procedure Note | + + | Interface, Radiology Results - 06/04/2019 11:21 PM PDT [address] | | [address] [place] [address] | | Name: SANDY MARC Phys: JACI PAREKH : 1990 Sex: F | | CSN: [id number] MR# [id number] Exam Date: 06/04/2019 EXAM:X-RAY KNEE 3 VIEWS | | LEFT [address]; X-RAY KNEE 2 VIEWS RIGHT [address] CLINICAL HISTORY:Left knee pain. | | COMPARISON:None [...] | | |Transcribed Date/Time: 06/04/2019 23:16 | |Railroad Firer/Fireman: FLUENCY | | | | | | [...]
--- OUTSIDE RECORDS SUMMARY | ~2020-03-08 | XMS | Encounter Summary ---
Demographics + + + | Address | [address] | | | [place] [address] | + + + | Home Phone [...] [place] | | | | | [address] | | + + + + + Care Team Providers + +------+ + | Care Metal Sprayer Production Name | Role | Phone | [...] [facility] | | | | | | [address] | | | | | | Loop [facility] | | | | | | [place], [facility] Floor | | | | | | [place], [place] | | | | | | [address] | | | | | | [phone] | | | +--------+ + + + [...]
--- OUTSIDE RECORDS SUMMARY | ~2020-03-08 | XMS | Encounter Summary ---
Demographics + + + | Address | [address] | | | [place] [address] | + + + | Home Phone [...] [place] | | | | | [address] | | + + + + + Care Team Providers + +------+ + | Care Special Needs Teacher Name | Role | Phone | [...] | | | | Loop [facility] | [place] [address] | | | | | [place], 3rd floor | [phone] | | | | | [place], [place] | | | | | | [address] | | | | | | [phone] | | | +--------+ + + + [...]
--- OUTSIDE RECORDS SUMMARY | ~2020-03-08 | XMS | Encounter Summary ---
Demographics + + + | Address | [address] | | | [place] [address] | + + + | Home Phone [...] [place] | | | | | [address] | | + + + + + Care Team Providers + +------+ + | Care Financial Investment Adviser Name | Role | Phone | + [...]
--- OUTSIDE RECORDS SUMMARY | ~2020-03-08 | XMS | Encounter Summary ---
Demographics + + + | Address | [address] | | | [place] [address] | + + + | Home Phone [...] | + + + + + | Griesl Marc | ECON | [address] | | | | | [place] | | | | | [address] | | + + + + + Care Team Providers + +------+ + | Care Cable Braider Name | Role | Phone | + [...] + + + + | 09/04/ | Career Law Clerk | Infectious | Brigid Hardy | | | 2012 | | Diseases at [facility] | [place], [place] | | | | | [address] | | | | | | [address] [facility] | | | | | | [place], 3rd floor | | | | | | [place], [place] | | | | | | [address] | | | | | | [phone] | | | +--------+ + + + [...]
--- OUTSIDE RECORDS SUMMARY | ~2020-03-08 | XMS | Encounter Summary ---
Demographics + + + | Address | [address] | | | [place] [address] | + + + | Home Phone [...] + | Grisel Marc | ECON | [address] | | | | | [place] | | | | | [address] | | + + + + + Care Team Providers + +------+ + | Care Security Systems Specialist Name | Role | Phone | [...] | | dislocation, | [address] | | | | | right, | [address] | [place], | | | | | initial | [place], | [place] [address] | | | | | encounter | [place] | Phone: | | | | | Procedures | [address] | [phone] | | | | | PHYSICAL | Phone: | Fax: | | | | | THERAPY | [phone] | [phone] | | | | | REFERRAL | Fax: | | | | | | | [phone] | | +--------+--------+ + + + + [...] | | | | | | [place] [address] | [address] | | | | | | Phone: | Phone: | | | | | | [phone] | [phone] | | | | | | Fax: | Fax: | | | | | | [phone] | [phone] | +--------+--------+ + + + + Encounter [...] | | | [address] | [address] | dislocation, right, | | | | [address] | [phone] | initial encounter | | | | [place] | | | | | | [address] | | | | | | [phone] | | | +--------+---------+ + + + [...] + + + | [address] [place] [address] | [facility] | | [place] [address] | DEPARTMENT OF | | [phone] Name: SANDY MARC Phys: | RADIOLOGY | | CINTHYA NICOLAS : 1990 Sex: F | | | CSN: [id number] MR# [id number] Exam Date: | | | 12/06/2015 EXAM: [...] Transcribed Date/Time: | | | 12/06/2015 15:56 Spike Machine Feeder: YORDY | | + + + + + | Procedure Note | + + | Interface, Radiology Results - 12/06/2015 4:01 PM PDT [address] | | [address] [place] [address] | | Name: SANDY MARC Phys: CINTHYA NICOLAS : 1990 Sex: F | | CSN: [id number] MR# [id number] Exam Date: 12/06/2015 EXAM:X-RAY KNEE 3 VIEWS [...] VENDOR SYSTEM 12/06/2015 | |Reported by: Magno Andesron MD | | | |Electronically signed by: Magno Anderson MD | | | |Transcribed Date/Time: 12/06/2015 15:56 | |Spike Machine Feeder: FLUENCY | | | | | | [...]
--- OUTSIDE RECORDS SUMMARY | ~2020-03-08 | XMS | Encounter Summary ---
Demographics + + + | Address | [address] | | | [place] [address] | + + + | Home Phone [...] [place] | | | | | [address] | | + + + + + Care Team Providers + +------+ + | Care Head Transfer Clerk Name | Role | Phone | [...] | | | | | [place], | | | | | | [place] [address] | | | | | | [phone] | | | +--------+ + + + [...]
--- OUTSIDE RECORDS SUMMARY | ~2020-03-08 | XMS | Encounter Summary ---
Demographics + + + | Address | [address] | | | [place] [address] | + + + | Home Phone [...] [place] | | | | | [address] | | + + + + + Care Team Providers + +------+ + | Care Art Teacher Name | Role | Phone | [...] | | | | Loop Physician[address] | [place] [address] | | | | | [place], 3rd floor | [phone] | | | | | [place], [place] | | | | | | [address] | | | | | | [phone] | | | +--------+ + + + [...]
--- OUTSIDE RECORDS SUMMARY | 2020-03-08 01:26 | XMS ---
PreManage Notification: ALYSA HARTMAN Security Money Order Clerk Events No recent Security Events currently on file CRITERIA MET - 6 ED Visits in 6 Months - [facility] - Has Care Guidelines - PDMP CARE PROVIDERS EFRAÍN Singer Nurse Practitioner 04/26/2019-Current JOSÉ MANUEL PHONE: [phone] Jeff Naranjo Community Health Worker 01/31/2020-Current PHONE: [phone] MARJORIE [facility] 07/14/2015-Current PHONE: [phone] Guidelines Source: [facility] Guidelines Date: 02/15/2019 Care Coordination: Mental health services provided by [facility].\T\nbsp; Please contact [facility] with mental health concerns.\T\nbsp; Serina/[place]: [phone]\T\ nbsp; [place]: [phone]. Care History Medical/Surgical 09/20/2019 [facility] Care Recommendation: - USE EXTREME CAUTION IN GIVING NARCOTICS. - Avoid Discharge Narcotic prescriptions if at all possible. Physician discretion. 08/25/2019 [facility] - PATIENT HAS PCP DR AMADOR- [facility] [place]. - PATIENT HAS AN APT WITH DENTAL CLINIC ON Friday08/30/2019. E.D. VISIT COUNT (12 MO.) 1 [facility] 3 [facility] 1 [facility] 1 [facility] 10 [facility] TOTAL 16 NOTE: Visits indicate total known visits. ED/UCC VISIT TRACKING (12 MO.) 03/08/2020 01:24 COREY Mendiola [place] TYPE: Emergency COMPLAINT: - R LEG LAC 01/29/2020 21:29 [facility] [place] TYPE: Emergency DIAGNOSES: - Unspecified injury of right foot, initial encounter - Unspecified open wound of unspecified toe(s) with damage to n - L LEG INFECTION 01/29/2020 20:00 COREY Mendiola [place] TYPE: Emergency COMPLAINT: - FOOT PAIN/INJURY DIAGNOSES: - Allergy status to penicillin - Pain in left foot - Latex allergy status - Other nonmedicinal substance allergy status - Allergy status to sulfonamides status - Allergy status to other drugs, medicaments and biological sub - Nicotine dependence, unspecified, uncomplicated - Other medical terminologist (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 - Pain in right toe(s) 01/22/2020 22:41 COREY [place] TYPE: Emergency COMPLAINT: - FOOT INJURY DIAGNOSES: - Unspecified open wound of left great toe with damage to nail, - Latex allergy status - Allergy status to sulfonamides status - Attention-deficit hyperactivity disorder, unspecified type - Allergy status to other antibiotic agents status - Nicotine dependence, unspecified, uncomplicated - Other medical terminologist (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 - Exposure to other specified factors, initial encounter - Other nonmedicinal substance allergy status 12/16/2019 19:37 COREY Funk TYPE: Emergency COMPLAINT: - LEFT KNEE PAIN DIAGNOSES: - Allergy status to other drugs, medicaments and biological sub - Other nonmedicinal substance allergy status - Other medical terminologist (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 - Latex allergy status [...] Attention-deficit hyperactivity disorder, unspecified type - Other medical terminologist (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 - Allergy status to [...] of teeth and supporting structures - Other medical terminologist (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 - Striking against or struck by other objects, initial encounte - Allergy status to sulfonamides status 08/17/2019 20:37 COREY Funk TYPE: Emergency COMPLAINT: - ABD PAIN/FEVER DIAGNOSES: - Allergy status to sulfonamides status - Latex allergy status - Allergy status to penicillin - Nicotine dependence, unspecified, uncomplicated - Other medical terminologist (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 - Right lower quadrant pain - Attention-deficit hyperactivity disorder, unspecified type - Other nonmedicinal substance allergy status 06/19/2019 13:51 [facility] Opal FISCHER TYPE: Emergency DIAGNOSES: - [...] of left knee, initial encounter - Other fdc (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 - Overexertion from prolonged static or awkward postures, initi 05/01/2019 01:28 Angella Joy [place] TYPE: Emergency DIAGNOSES: - COUGH EAR [...] - Nicotine dependence, unspecified, uncomplicated - Other fdc (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 04/06/2019 00:58 Angella Joy [place] TYPE: Emergency DIAGNOSES: - Acute pharyngitis, unspecified - sore throat INPATIENT VISIT TRACKING (12 MO.) No inpatient visits to display in this time frame [id number]
[2020-03-08] MEDS ORDERED: VOLTAREN100 GM TOP (01:48)
[2020-03-08] MEDS ORDERED: DICLOFENAC SODI75 MG PO (01:49)
== END 2020-03-08 02:28 | disposition home or self-care (01) ==
LOC: ED 01:23
PROC: 0HQHXZZ Repair Right Upper Leg Skin, External Approach (ICD-10-PCS; principal; 2020-03-08)
DX: S71.111A Laceration without foreign body, right thigh, initial encounter (principal); W26.8XXA Contact with other sharp object(s), not elsewhere classified, initial encounter
CPT/HCPCS: 12001; 99282-25

== ENCOUNTER 2020-06-25 09:27 | Emergency (ER) | payer OTHER ==
[~2020-06-25] VITALS: Ht 170.2 cm; Wt 88.5 kg
[~2020-06-25 09:27] MED LIST changes: +VOLTAREN100 GM TOP
--- OUTSIDE RECORDS SUMMARY | 2020-06-25 09:30 | XMS ---
PreManage Notification: ALYSA HARTMAN Security Senior Wind Turbine Technician Events No recent Security Events currently on file CRITERIA MET - 6 ED Visits in 6 Months - [facility] - Has Care Guidelines - [facility] - 2 Visits in 30 Days CARE PROVIDERS MARYAM CASTANEDA [facility] 03/08/2020-Current PHONE: [phone] EFRAÍN Singer Nurse Practitioner 04/26/2019-Current JOSÉ MANUEL PHONE: [phone] SHIRA DOS SANTOS Community Health Worker 01/31/2020-Current PHONE: [phone] JEREMIAH AMADOR [facility] 07/14/2015-Current PHONE: [phone] Guidelines Source: [facility] [place] Guidelines Date: 02/15/2019 Care Coordination: Mental health services provided by [facility].\T\nbsp; Please contact [facility] with mental health concerns.\T\nbsp; [place]: [phone]\T\ nbsp; [place]: [phone]. Care History Medical/Surgical 03/08/2020 [facility] - PATIENT IS CURRENTLY ESTABLISHED WITH DR CASTANEDA - NEXT APT SCHEDULED WITH PCP ON 04/03/2020. - RECENT ED RECORDS ARE BEING SENT TO PCP OFFICE. 09/20/2019 [facility] Care Recommendation: - USE EXTREME CAUTION IN GIVING NARCOTICS. - Avoid Discharge Narcotic prescriptions if at all possible. Physician discretion. 08/25/2019 [facility] - PATIENT HAS PCP DR AMADOR- [facility] [place]. - PATIENT HAS AN APT WITH DENTAL CLINIC ON Friday08/30/2019. E.D. VISIT COUNT (12 MO.) 1 Cash [place] 2 [facility] 1 Jennifer Flo [place] 9 [facility]. TOTAL 13 NOTE: Visits indicate total known visits. ED/UCC VISIT TRACKING (12 MO.) 06/25/2020 09:27 [facility] [place] TYPE: Emergency COMPLAINT: - SHORTNESS OF BREATH 06/14/2020 12:06 [facility] [place] TYPE: Emergency DIAGNOSES: - Moderate persistent asthma with (acute) exacerbation - SHORTNESS OF BREATH 03/08/2020 01:24 [facility] [place] TYPE: Emergency COMPLAINT: - R LEG LAC DIAGNOSES: - Laceration without foreign body, right thigh, initial encounter - Contact with other sharp object(s), not elsewhere classified, initial encounter 01/29/2020 21:29 [facility] [place] TYPE: Emergency DIAGNOSES: - Unspecified injury of right foot, initial encounter - Unspecified open wound of unspecified toe(s) with damage to nail, initial encounter - L LEG INFECTION 01/29/2020 20:00 [facility] [place] TYPE: Emergency COMPLAINT: - FOOT PAIN/INJURY DIAGNOSES: - Allergy status to penicillin - Pain in left foot - Latex allergy status - Other nonmedicinal substance allergy status - Allergy status to sulfonamides - Allergy status to other drugs, medicaments and biological substances - Nicotine dependence, unspecified, uncomplicated - Other terminal make up operator (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 - Pain in right toe(s) 01/22/2020 22:41 [facility] [place] TYPE: Emergency COMPLAINT: - FOOT INJURY DIAGNOSES: - Unspecified open wound of left great toe with damage to nail, initial encounter - Latex allergy status - Allergy status to sulfonamides - Attention-deficit hyperactivity disorder, unspecified type - Allergy status to other antibiotic agents - Nicotine dependence, unspecified, uncomplicated - Other chcf (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 - Exposure to other specified factors, initial encounter - Other nonmedicinal substance allergy status 12/16/2019 19:37 [facility] [place] TYPE: Emergency COMPLAINT: - LEFT KNEE PAIN DIAGNOSES: - Allergy status to other drugs, medicaments and biological substances - Other nonmedicinal substance allergy status - Other chcf (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 - Latex allergy status - Allergy status to penicillin - Pain in left lower leg - Allergy status to sulfonamides - Nicotine dependence, unspecified, uncomplicated 10/11/2019 13:00 [facility] [place] TYPE: Emergency COMPLAINT: - COUGH, MSE TO CLINIC DIAGNOSES: - Cough 09/25/2019 22:01 Angel Gordon [place] TYPE: Emergency COMPLAINT: - KNEE PAIN - [...] status to other drugs, medicaments and biological substances - Latex allergy status - Nicotine dependence, unspecified, uncomplicated - Other nonmedicinal substance allergy status - Attention-deficit hyperactivity disorder, unspecified type - Other terminal make up operator (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 - Allergy status to penicillin - Sprain of unspecified site of left knee, initial encounter - Allergy status to sulfonamides - Exposure to other specified factors, initial encounter 09/16/2019 00:28 Cash [facility] [place] TYPE: Emergency DIAGNOSES: - Poss UTI/Vaginal bleeding 08/24/2019 18:02 [facility] [place] TYPE: Emergency COMPLAINT: - TOOTH PAIN DIAGNOSES: - Periapical abscess without sinus - Fracture of tooth (traumatic), initial encounter for closed fracture - Allergy status to penicillin - Latex allergy status - Nicotine dependence, unspecified, uncomplicated - Other nonmedicinal substance allergy status - Other specified disorders of teeth and supporting structures - Other terminal make up operator (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 - Striking against or struck by other objects, initial encounter - Allergy status to sulfonamides 08/17/2019 20:[address] [facility] [place] TYPE: Emergency COMPLAINT: - ABD PAIN/FEVER DIAGNOSES: - Allergy status to sulfonamides - Latex allergy status - Allergy status to penicillin - Nicotine dependence, unspecified, uncomplicated - Other chcf (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 - Right lower quadrant pain - Attention-deficit hyperactivity disorder, unspecified type - Other nonmedicinal substance allergy status INPATIENT VISIT TRACKING (12 MO.) No inpatient visits to display in this time frame [id number]
[2020-06-25] MEDS ORDERED: ALBUTEROL2.5 MG/3 M INH (09:37)
[2020-06-25] MEDS ORDERED: VENTOLIN HFA18 GM INH (09:37)
[2020-06-25] MEDS ORDERED: CYCLOBENZAPRINE10 MG PO (09:39)
[2020-06-25] MEDS ORDERED: PREDNISONE20 MG PO (10:38)
== END 2020-06-25 11:21 | disposition home or self-care (01) ==
LOC: ED 09:27
DX: J45.901 Unspecified asthma with (acute) exacerbation (principal); F90.9 Attention-deficit hyperactivity disorder, unspecified type; F17.200 Nicotine dependence, unspecified, uncomplicated; Z88.8 Allergy status to other drugs, medicaments and biological substances; Z88.2 Allergy status to sulfonamides; Z88.0 Allergy status to penicillin; Z91.040 Latex allergy status; Z79.899 Other long term (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
CPT/HCPCS: 71045; 99285-25; J7512

== ENCOUNTER 2020-09-06 18:14 | Emergency (ER) | payer OTHER ==
[~2020-09-06] VITALS: Ht 170.2 cm; Wt 88.5 kg
[~2020-09-06 18:14] MED LIST changes: +ALBUTEROL2.5 MG/3 M INH; +CYCLOBENZAPRINE10 MG PO; +PREDNISONE20 MG PO; +VENTOLIN HFA18 GM INH
[2020-09-06] MEDS ORDERED: CHANTIX1 EACH PO (19:12)
[2020-09-06] MEDS ORDERED: CLINDAMYCIN HC150 MG PO (19:13)
[2020-09-06] MEDS ORDERED: TRAMADOL HCL50 MG PO (19:13)
--- OUTSIDE RECORDS SUMMARY | 2020-09-06 23:33 | XMS ---
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 No recent Security Events currently on file CRITERIA MET - PDMP CARE PROVIDERS MARYAM CASTANEDA [facility] 03/08/2020-Current PHONE: [phone] EFRAÍN Singer Nurse Practitioner 04/26/2019-Current JOSÉ MANUEL PHONE: [phone] SHIRA DOS SANTOS Community Health Worker 01/31/2020-Current PHONE: [phone] JEREMIAH AMADOR [facility] 07/14/2015-Current PHONE: [phone] Care Guidelines exist for the following facilities: [facility] ( 02/15/2019 ) Care History Medical/Surgical 03/08/2020 [facility] - PATIENT IS CURRENTLY ESTABLISHED WITH DR CASTANEDA - NEXT APT SCHEDULED WITH PCP ON 04/03/2020. - RECENT ED RECORDS ARE BEING SENT TO PCP OFFICE. 09/20/2019 [facility] Care Recommendation: - USE EXTREME CAUTION IN GIVING NARCOTICS. - Avoid Discharge Narcotic prescriptions if at all possible. Physician discretion. 08/25/2019 [facility] - PATIENT HAS PCP DR AMADOR- JA[facility] IN [place]. - PATIENT HAS AN APT WITH DENTAL CLINIC ON Friday08/30/2019. [facility] MO[facility] 1 [facility] [place] [facility] 8 [facility]. TOTAL 12 NOTE: Visits indicate total known visits. ED/UCC VISIT TRACKING (12 MO.) 09/06/2020 18:14 [facility] [place] TYPE: Emergency COMPLAINT: - DENTAL PROBLEM 06/25/2020 09:27 [facility] [place] TYPE: Emergency COMPLAINT: - SHORTNESS OF BREATH DIAGNOSES: - Attention-deficit hyperactivity disorder, unspecified type - Other care home (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 - Allergy status to sulfonamides - Nicotine dependence, unspecified, uncomplicated - Unspecified asthma with (acute) exacerbation - Allergy status to other drugs, medicaments and biological substances - Latex allergy status - Allergy status to penicillin - Shortness of breath 06/14/2020 12:06 [facility] [place] TYPE: Emergency DIAGNOSES: - Moderate persistent asthma with (acute) exacerbation - SHORTNESS OF BREATH 03/08/2020 01:24 [facility] [place] TYPE: Emergency COMPLAINT: - R LEG LAC DIAGNOSES: - Laceration without foreign body, right thigh, initial encounter - Contact with other sharp object(s), not elsewhere classified, initial encounter 01/29/2020 21:29 [facility] [place] TYPE: Emergency DIAGNOSES: - Unspecified injury [...] - Nicotine dependence, unspecified, uncomplicated - Other care home (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 - Pain in right toe(s) 01/22/2020 22:41 [facility] [place] TYPE: Emergency COMPLAINT: - FOOT INJURY DIAGNOSES: - Unspecified open wound of left great toe with damage to nail, initial encounter - Latex allergy status - Allergy status to sulfonamides - Attention-deficit hyperactivity disorder, unspecified type - Allergy status to other antibiotic agents - Nicotine dependence, unspecified, uncomplicated - Other care home (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 - Exposure to other specified factors, initial encounter - Other nonmedicinal substance allergy status 12/16/2019 19:37 [facility] [place] TYPE: Emergency COMPLAINT: - LEFT KNEE PAIN DIAGNOSES: - Allergy status to other drugs, medicaments and biological substances - Other nonmedicinal substance allergy status - 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 - Latex allergy status - Allergy status to penicillin - Pain in left lower leg - Allergy status to sulfonamides - Nicotine dependence, unspecified, uncomplicated 10/11/2019 13:00 [facility] [place] TYPE: Emergency COMPLAINT: - COUGH, MSE TO CLINIC DIAGNOSES: - Cough 09/25/2019 22:01 Angel [place] [facility] TYPE: Emergency COMPLAINT: - KNEE PAIN - [...] Attention-deficit hyperactivity disorder, unspecified type - 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
== END 2020-09-07 00:54 | disposition short-term general hospital (02) ==
LOC: ED 18:14
DX: K04.7 Periapical abscess without sinus (principal); Z20.822 Contact with and (suspected) exposure to COVID-19; J45.909 Unspecified asthma, uncomplicated; Z87.891 Personal history of nicotine dependence; Z88.8 Allergy status to other drugs, medicaments and biological substances; Z88.2 Allergy status to sulfonamides; Z91.048 Other nonmedicinal substance allergy status; Z88.0 Allergy status to penicillin; Z91.040 Latex allergy status; Z79.899 Other long term (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
CPT/HCPCS: 70491; 80053; 85025; 99284-25; C9803; J0696; J1100; J1170; J2405; J7030; Q9967; U0003

== ENCOUNTER 2020-09-10 07:15 | Emergency (ER) | payer OTHER ==
[~2020-09-10] VITALS: Ht 170.2 cm; Wt 88.5 kg
[~2020-09-10 07:15] MED LIST changes: +CHANTIX1 EACH PO; +CLINDAMYCIN HC150 MG PO; +TRAMADOL HCL50 MG PO
--- OUTSIDE RECORDS SUMMARY | 2020-09-10 07:18 | XMS ---
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 No recent Security Events currently on file CRITERIA MET - [facility] - [facility] - 2 Visits in 30 Days CARE PROVIDERS MARYAM CASTANEDA [facility] 03/08/2020-Current PHONE: [phone] EFRAÍN Singer Nurse Practitioner 04/26/2019-Current JOSÉ MANUEL PHONE: [phone] SHIRA DOS SANTOS Community Health Worker 01/31/2020-Current PHONE: [phone] JEREMIAH AMADOR [facility] 07/14/2015-Current PHONE: [phone] Care Guidelines exist for the following facilities: [facility] ( 02/15/2019 ) Care History Medical/Surgical 03/08/2020 [facility] - PATIENT IS CURRENTLY ESTABLISHED WITH DR CASTANEDA - NEXT APT SCHEDULED WITH PCP ON 04/03/2020. - RECENT ED RECORDS ARE BEING SENT TO PCP OFFICE. 09/20/2019 [facility] Care Recommendation: - USE EXTREME CAUTION IN GIVING NARCOTICS. - Avoid Discharge Narcotic prescriptions if at all possible. Physician discretion. 08/25/2019 [facility] - PAT[facility] [place] - PATIENT HAS AN APT WITH DENTAL CLINIC ON Friday08/30/2019. E.D. VISIT COUNT (12 MO.) 1 [facility] 2 [facility] 1 [facility] [place] 9 [facility] H. TOTAL 13 NOTE: Visits indicate total known visits. 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 [place] TYPE: Emergency COMPLAINT: - R LEG LAC DIAGNOSES: - Laceration without foreign body, right thigh, initial encounter - Contact with other sharp object(s), not elsewhere classified, initial encounter 01/29/2020 21:29 [facility] [place] [facility] DIAGNOSES: - Unspecified injury [...] - Other custodial (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 - Pain in right [...] - Other custodial (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 - Exposure to other specified factors, initial encounter - Other nonmedicinal substance allergy status 12/16/2019 19:37 [facility] [place] TYPE: Emergency COMPLAINT: - LEFT KNEE PAIN DIAGNOSES: - Allergy status to other drugs, medicaments and biological substances - Other nonmedicinal substance allergy status - Other custodial (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 - Latex allergy status - Allergy status to penicillin - Pain in left lower leg - Allergy status to sulfonamides - Nicotine dependence, unspecified, uncomplicated 10/11/2019 13:00 [facility] [place] TYPE: Emergency COMPLAINT: - COUGH, MSE TO CLINIC DIAGNOSES: - Cough 09/25/2019 22:01 Angel Gordon [place] TYPE: Emergency COMPLAINT: - KNEE PAIN - [...] specified factors, initial encounter 09/16/2019 00:28 Cash NEGRON TYPE: Emergency DIAGNOSES: - Poss UTI/Vaginal bleeding INPATIENT VISIT TRACKING (12 MO.) 09/07/2020 02:41 [facility] TYPE: Internal Medicine DIAGNOSES: - Periapical abscess without sinus - Cellulitis and abscess of mouth - dental abscess [id number]
[2020-09-10] MEDS ORDERED: OXYCODONE HCL5 MG PO (07:24)
[2020-09-10] MEDS ORDERED: CEPHALEXIN500 MG PO (07:25)
[2020-09-10] MEDS ORDERED: METRONIDAZOLE500 MG PO (07:25)
[2020-09-10] MEDS ORDERED: VITAMIN D21250 MCG PO (07:28)
[2020-09-10] MEDS ORDERED: METHYLPHENIDATE10 MG PO (07:28)
[2020-09-10] MEDS ORDERED: RITALIN5 MG PO (07:29)
[2020-09-10] MEDS ORDERED: PANTOPRAZOLE SO40 MG PO (07:30)
[2020-09-10] MEDS ORDERED: TYLENOL325 MG PO (07:30)
[2020-09-10] MEDS ORDERED: NAPROXEN500 MG PO (07:31)
== END 2020-09-10 09:14 | disposition home or self-care (01) ==
LOC: ED 07:15
DX: G89.18 Other acute postprocedural pain (principal); J45.909 Unspecified asthma, uncomplicated; Z87.891 Personal history of nicotine dependence; Z88.8 Allergy status to other drugs, medicaments and biological substances; Z88.2 Allergy status to sulfonamides; Z88.0 Allergy status to penicillin; Z88.1 Allergy status to other antibiotic agents; Z91.048 Other nonmedicinal substance allergy status; Z91.040 Latex allergy status; Z79.899 Other long term (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
CPT/HCPCS: 85025; 99283

== ENCOUNTER 2021-09-04 05:45 | Day surgery (SDC) | payer OTHER ==
[~2021-09-04] VITALS: Ht 170.2 cm; Wt 87.0 kg
--- NOTE | ~2021-09-04 | OR ---
[facility] [address] [place], [place] [address] Draft DATE OF OPERATION: 09/04/2021 SURGEON: Jenni Gonzalez DO PREOPERATIVE DIAGNOSES: 1. Abnormal uterine bleeding. 2. Dysmenorrhea. 3. Adenomyosis. 4. Chronic blood-loss anemia secondary to abnormal uterine bleeding. 5. History of cervical dysplasia. POSTOPERATIVE DIAGNOSES: 1. Abnormal uterine bleeding. 2. Dysmenorrhea. 3. Adenomyosis. 4. Chronic blood-loss anemia secondary to abnormal uterine bleeding. 5. History of cervical dysplasia. PROCEDURES PERFORMED: 1. Total laparoscopic hysterectomy. 2. Cystoscopy. IRON MINER: Serena Bazan DO. ANESTHESIA: General. ESTIMATED BLOOD LOSS: 25 mL. SPECIMENS: Uterus and cervix. FINDINGS: Normal external genitalia, vagina, and cervix. On laparoscopy, normal right upper quadrant, uterus and ovaries. She is status post bilateral salpingectomy with no residual fallopian tube left. Uterus was small and appears normal. Hemostasis at the end of the procedure. Excellent apical support. On cystoscopy, normal bladder with bilateral ureteral jets. PATIENT NAME: ALYSA MARC OPERATIVE REPORT DATE OF : [birth year] REPORT #: [id number] PHYSICIAN: JENNI GONZALEZ DO PCP: MARYAM CASTANEDA MD REPORT IS CONFIDENTIAL AND NOT TO BE RELEASED WITHOUT AUTHORIZATION [address] [address] Draft COMPLICATIONS: None. INDICATIONS: Ms. Marc is a pleasant 30-year-old white female with a history of heavy painful bleeding requiring iron infusions from hematology. She has failed multiple forms of cycle control and is status post tubal ligation for contraception. She also has a remote history of cervical dysplasia. The patient desires definitive treatment with total laparoscopic hysterectomy. Risks, benefits, and alternatives were discussed in detail with the patient. The patient understands and wished to proceed with procedure. DESCRIPTION OF PROCEDURE: The patient was taken to the operating room where a time-out was performed to confirm correct patient and correct procedure. The patient was prepped and draped in the dorsal lithotomy position with feet in Yellowfin stirrups. ICPs were on and running. The patient received Ancef 2 g preoperatively as well as heparin 5000 units preoperatively. After a Lopez catheter was inserted a weighted speculum was placed in vagina and the anterior lip of the cervix grasped with Allis clamp. The cervix gently dilated using Hegar dilators and a VCare uterine manipulator was placed without difficulty. The surgeon's gloves were changed. Attention was turned to the abdomen. Just below the umbilicus was infiltrated with 0.25% Marcaine with epinephrine and a curvilinear incision was made using an 11 blade. Blunt dissection down to the fascia was performed using hemostats and the fascia was grasped, elevated, and entered sharply with Metzenbaum scissors. Stay suture of 0 Vicryl was placed on the superior and inferior edges of the fascia. The peritoneum was entered bluntly and a Jesus trocar was placed without difficulty. Pneumoperitoneum was established and survey of the abdomen and pelvis was performed. A 5 mm assist port was placed in the left lower quadrant under direct visualization without complication. An 8 mm expanding port was placed in the right lower quadrant under direct visualization without complication. Attention was turned to hysterectomy. She is status post bilateral salpingectomy and a ligature device was used to fulgurated the left uteroovarian ligament and round ligament. This process was repeated on the right side without difficulty. The leaves of the broad ligament on the left were then divided using the LigaSure device, exposing the uterine vessels. The uterine vessels were identified, fulgurated and divided with excellent hemostasis. The process was repeated on the right side without difficulty. The bladder was dissected well away below the cervical cup. Sonicision device was selected and circumferential colpotomy was performed. The uterus and cervix were delivered through the vagina and handed to the waiting staff to be sent to pathology. The pelvis was irrigated and found to be hemostatic. The cuff was closed using V-Loc suture with an Endostitch device with careful attention to incorporate the uterosacral ligaments bilaterally and the vaginal epithelium with each bite. Excellent apical support and PATIENT NAME: ALYSA MARC OPERATIVE REPORT DATE OF : [birth year] REPORT #: [id number] PHYSICIAN: JENNI GONZALEZ DO PCP: MARYAM CASTANEDA MD REPORT IS CONFIDENTIAL AND NOT TO BE RELEASED WITHOUT AUTHORIZATION [facility] [address] [place], [place] [address] Draft hemostasis were appreciated. The pelvis was irrigated and found to be hemostatic. Pneumoperitoneum was reduced. Trocars were removed. The fascia of the periumbilical was then reapproximated using 0 Vicryl in a running nonlocked manner and reinforced with the stay sutures. Skin was then reapproximated using 4-0 Vicryl in a running subcuticular stitch with excellent hemostasis and cosmesis. Attention was turned to cystoscopy. The Lopez catheter was removed and a 7 degree cystoscope was placed in the urethral meatus and advanced under direct visualization to the bladder. Normal bladder and bilateral ureteral jets were appreciated. The bladder was drained and the patient was taken to PACU in good and stable condition. Sponge, needle, and instrument count were correct x2 at the end of the procedure. Dr. Bazan was present and participated in all portions of procedure. Jenni Gonzalez DO JDW/MODL /[id number] Copies: ~ PATIENT NAME: ALYSA MARC OPERATIVE REPORT DATE OF : 88 REPORT #: [id number] PHYSICIAN: JENNI GONZALEZ DO PCP: MARYAM CASTANEDA MD REPORT IS CONFIDENTIAL AND NOT TO BE RELEASED WITHOUT AUTHORIZATION
[~2021-09-04 05:45] MED LIST changes: +ADVAIR HFA 115-12 GM INH; +GABAPENTIN100 MG PO; +METRONIDAZOLE500 MG PO; +NAPROXEN500 MG PO; +OXYCODONE HCL5 MG PO; +PANTOPRAZOLE SO40 MG PO; +RITALIN5 MG PO; +TYLENOL325 MG PO; +VITAMIN D21250 MCG PO
--- NOTE | 2021-09-04 09:28 | NUR ---
09/04/21 09 Carrie Hickey 0876 PT ARRIVED IN PACU SLEEPY WITH NO C/O'S. 904 PT CRYING OUT IN PAIN AND HITTING BED WITH LEFT HAND. FENTANYL 50MCG GIVEN IVP. 09 DR AT BEDSIDE. PT SLEEPY. 916 C/O ABD PAIN 03/20. FENTANYL 50MCG GIVEN IVP. 919 SATS DROPPED TO 85% ON RA. ENCOURAGED COUGH, DEEP BREATHING WITH NO SUCCESS. O2 @4L VIA NC PLACED. SATS INCREASED TO 92-95%.
--- NOTE | 2021-09-04 10:23 | NUR ---
0950: PT ARRIVES TO UNIT VIA STRETCHER. DROWSY ON ARRIVAL BUT CONVERSES AND ANSWERS QUESTIONS APPROPRIATELY. VSS, RESP EVEN AND UNLABORED. SAT STABLE ON 2L VIA NC. LAP SITES X3 C/D/I. SCDS IN PLACE. PILLOW PROVIDED FOR SPLINT AND IMPORTANCE OF COUGHING DISCUSSED. PT REPORTS 6/10 PAIN LEVEL, LISA AT THIS TIME. DENIES NAUSEA. ICE WATER AND CRACKERS PROVIDED. DISCUSSED PAIN MANAGEMENT AND PT TO EAT CRACKER PRIOR TO RX ADMIN. PT VOICES UNDERSTANDING. POC DISCUSSED AND PT AGREEABLE. NO NEEDS VOICED, CALL LIGHT WITHIN REACH
--- NOTE | 2021-09-04 11:05 | NUR ---
1050: PT AWAKE AND ALERT IN STRETCHER, REPORTS FEELING "GREAT" VSS, RESP EVEN AND UNLABORED. TRIALLED OFF OF RA, LISA WELL. SATS STABLE >98%. NO CHANGE TO DRESSINGS X3 FROM ARRIVAL. DENIES NAUSEA. SCDS REMAIN IN PLACE. PT DENIES URGE TO VOID. TO TRY HERE SOON. NO NEEDS, CALL LIGHT WITHIN REACH
--- NOTE | 2021-09-04 12:20 | NUR ---
1150: PT AWAKE AND ALERT IN STRETCHER, VSS, RESP EVEN AND UNLABORED. DENIES NAUSEA AND NEED FOR PAIN INTERVENTION AT THIS TIME. LAP SITES REMAIN C/D/I. SCDS REMOVED, DANGLES AT THE BEDSIDE. LISA WELL, DENIES DIZZINESS AND SOB. AMBULATES TO BR WITH STANDBY ASSIST FROM THIS RN, STEADY GAIT. UNABLE TO VOID MORE THAN DROPS AT THIS TIME. MINIMAL VAGINAL DRAINAGE NOTED. UNDERPAD CHANGED. PT REQUESTS TO TRY TO VOID AGAIN PRIOR TO ANY INTERVENTION. COMFORTABLE WITHOUT NEEDS. CALL LIGHT WITHIN REACH
--- NOTE | 2021-09-04 13:34 | NUR ---
1250: PT REPORTS FEELING URGE TO VOID. UP TO BR FOR SUCCESSFUL 200ML FIRST POSTOP VOID. BACK TO ROOM TO DRESS FOR DC. VSS, RESP EVEN AND UNLABORED. LAP SITES UNCHANGED FROM ARRIVAL. DENIES PAIN AND NAUSEA AT THIS TIME. SL REMOVED BY STUDENT NURSE UNDER SUPERVISION FROM THIS RN, DANIEL. CATH TIP INTACT, PRESSURE APPLIED TO SITE. 1310: DC INSTRUCTIONS PROVIDED AND DISCUSSED. PT VOICES UNDERSTANDING AND DENIES QUESTIONS AND CONCERNS AT THIS TIME. WHEELED OFF OF UNIT BY THIS RN. TRANSFERS INTO VEHICLE INDEPENDENTLY AND APPROPRIATELY. NO PHYSICAL S/S OF DISTRESS AT THIS TIME
--- NOTE | 2021-09-04 21:19 | EKG ---
[facility] [address] [place], [place] [address] Signed Normal sinus rhythm Normal ECG No previous ECGs available Confirmed by AVA DUCKWORTH DO ([id number]) on 09/04/2021 9:18:58 PM Electronically Signed By: AVA DUCKWORTH DO 09/04/212118 PATIENT NAME: ALYSA HARTMAN Electrocardiogram DATE OF : 88 PHYSICIAN: AVA DUCKWORTH DO REPORT #: [id number] REPORT IS CONFIDENTIAL AND NOT TO BE RELEASED WITHOUT AUTHORIZATION
--- NOTE | 2021-09-06 11:54 | PATH ---
[facility] [address] [place], [place] [address] Signed SPECIMEN(S): A UTERUS AND CERVIX SPECIMEN SOURCE: A. UTERUS AND CERVIX CLINICAL HISTORY: Abnormal uterine bleeding, history cervical dysplasia, iron deficiency anemia, adenomyosis of uterus. TLH, cystoscopy. FINAL PATHOLOGIC DIAGNOSIS: Uterus and cervix, hysterectomy: - Cervix: No histopathologic abnormality. - Endometrium: Weakly proliferative endometrium. - Myometrium and serosa: No histopathologic abnormality. - No evidence of malignancy. NAL:cml:C2NR MICROSCOPIC EXAMINATION: Histologic sections of all submitted blocks are examined by light microscopy. These findings, together with the gross examination, support the pathologic diagnosis. GROSS DESCRIPTION: The specimen, labeled "DH, A," and designated on the requisition "cervix + uterus," is received in formalin and consists of a 39.5 g, 5.6 x 4.5 x 2.7 cm uterus with attached cervix. The uterus is oriented using the peritoneal reflection. The anterior cervical barrel is inked blue and the posterior cervical barrel is inked black. Uterine serosa is purple, smooth, glistening. The ectocervical tissue is guerrero-hdz, smooth, and occupies a 3.4 x 3.2 cm area. The external os is oval, patent, and 0.7 cm in diameter. The internal os is patent and the cervical stroma is grossly unremarkable. The triangular endometrial cavity measures 3.5 x 1.7 cm. The guerrero to dark brown endometrium is up to 0.1 cm thick without a discrete mass/lesion. The guerrero, rubbery myometrium is up to 1.4 cm thick without a discrete mass/lesion. Irrigation Teacher sections are submitted as follows: ((A1) anterior cervix (A2) posterior cervix (A3) anterior uterine wall (A4) posterior uterine wall PATIENT NAME: ALYSA HARTMAN PATHOLOGY DATE OF : 88 REPORT #: [id number] PHYSICIAN: JORGE PATHOLOGY PCP: MARYAM CASTANEDA MD REPORT IS CONFIDENTIAL AND NOT TO BE RELEASED WITHOUT AUTHORIZATION [facility] [address] [place], [place] [address] Signed AI (under the direct supervision of a pathologist) The Gross Description was prepared using a voice recognition system. The report was reviewed for accuracy; however, sound-alike word errors, addition and/or deletions may occur. If there is any question about this report, please contact Client Services. PERFORMING LABORATORY: The technical component was performed by [facility] [address] (Telephone Clerks Supervisor: Hermelinda Aguirre MD; CLIA# [id number]). [facility], [address] [address] (CLIA# [id number]). Diagnostician: Roxana Rubio MD Pathologist Electronically Signed 09/06/2021 Copies: ~ PATIENT NAME: ALYSA HARTMAN PATHOLOGY DATE OF : [birth year] REPORT #: [id number] PHYSICIAN: JORGE PATTERSON PCP: MARYAM CASTANEDA MD REPORT IS CONFIDENTIAL AND NOT TO BE RELEASED WITHOUT AUTHORIZATION
== END 2021-09-04 13:10 | disposition home or self-care (01) ==
LOC: OPS 05:45 → DS 05:45 → OPS 06:45 → DS 09:30 → OPS 13:10
PROVIDERS: ATTEND Obstetrics & Gynecology
PROC: 0UT94ZZ Resection of Uterus, Percutaneous Endoscopic Approach (ICD-10-PCS; principal; 2021-09-04 06:45)
DX: N80.0 Endometriosis of uterus (principal); N93.9 Abnormal uterine and vaginal bleeding, unspecified; N94.6 Dysmenorrhea, unspecified; D50.0 Iron deficiency anemia secondary to blood loss (chronic); J45.909 Unspecified asthma, uncomplicated; F17.210 Nicotine dependence, cigarettes, uncomplicated; Z87.410 Personal history of cervical dysplasia; Z88.2 Allergy status to sulfonamides; Z88.0 Allergy status to penicillin; Z91.040 Latex allergy status; Z91.048 Other nonmedicinal substance allergy status
CPT/HCPCS: 00840; 84703; 85025; 86850; 86900; 86901; 93005; 93010; J0131; J0690; J1100; J1170; J1644; J1885; J2250; J2405; J2704; J3010; J7121